=== PATIENT | female | born 1945 | race Hispanic/Latino ===

== ENCOUNTER 2019-10-30 09:34 | Inpatient (IN) | payer OTHER ==
--- OUTSIDE RECORDS SUMMARY | 2019-10-30 10:12 | XMS REPORT ---
:1945 Author Organization [facility] t Address [address] [place] [address] Care Team Providers Name Role Phone Kayla MIRANDA, L Attending Clinician Unavailable Phillip MOBILE PHONE SALESPERSON, F Attending Clinician Tony KIM, Bella Attending Clinician Umair KIM, E Attending Clinician Oneil KIM, A Attending Clinician Yasmany MOBILE PHONE SALESPERSON, R Attending Clinician Cooper LOAN FUNDER, G Attending Clinician Leni MOBILE PHONE SALESPERSON Attending Clinician Kat KIM, Williams Admitting Clinician Problems This patient has no known problems. Allergies, Adverse Reactions, Alerts This patient has no known allergies or adverse reactions. Medications This patient has no known medications. Procedures This patient has no known procedures. Encounters Start End Encounter Admission Attending Care Care Encounter Source Date/Time Date/Time Type Type Clinicians Facility Department ID 2019-10-22 2019-10-22 Transition Bimal Garza [id number] 00:00:00 00:00:00 Mona Ceballos [id number] [place] 4.2.7.2.686 [id number] 2019-10-17 2019-10-21 [facility] Juana Fisher 1.2.8 [id number] 11:59:57 16:28:00 Encounter ArminliviaRadha gupta 350. 1.13.10 [facility] 4.2.7.2.686 [id number] 2019-10-21 2019-10-21 Case BlockBILL [id number] 00:00:00 00:00:00 Management Danna BRAMBILA 350.1.13.10 [facility] 4.2.7.2.686 [id number] 2019-10-17 2019-10-17 [facility] [id number] 00:00:00 00:00:00 Vanesa Wiggins 350.1.13.10 [place] 4.2.7.2.686 Professio [id number] [address] 2019-09-11 2019-09-11 [facility] [id number] 07:00:02 11:39:34 ne Visit Vanesa Wiggins 350.1.13.10 [place] 4.2.7.2.686 Professio [id number] [address] 2019-09-08 2019-09-[address] [facility] [id number] 15:36:09 17:50:00 Shayne Wiggins 350.1.13.10 [place] 4.2.7.2.686 [place] [id number] 2019-09-01 2019-09-01 Emergency [facility], [facility] [id number] 12:01:40 15:56:00 Kassie Wiggins 350.1.13.10 [place] 4.2.7.2.686 [place] [id number] 2019-08-11 2019-08-11 [facility] [id number] 00:00:00 00:00:00 Vanesa A Rosalie 350.1.13.10 [place] 4.2.7.2.686 Professio [phone] [place] [address] Building 2019-08-05 2019-08-07 Office JESSEE Farrar [id number] 15:09:22 09:24:55 Visit [facility] 350.1.13.10 [place] 4.2.7.2.686 Profjay [phone] [place] [address] Office [address] One Results This patient has no known results.
--- OUTSIDE RECORDS SUMMARY | 2019-10-30 10:12 | XMS REPORT | Summary of Care ---
:1945 Author Organization [facility] Address [address] [place] [address] Care Team Providers Name Role Phone aVnesa Riggs MD Primary Care Provider [phone] Beni Cuenca MD Unavailable Reason for Visit Reason Comments Forms Encounter Details Date Type Department Care Team Description 01/10/2019 Telephone [facility] Pediatric and Mariela Riggs Forms Adult Primary Care- MD Wiggins [address] [place] [address], [address] [place] [address] [place] [address] [phone] Allergies No Known Allergiesdocumented as of this encounter (statuses as of 01/10/2019) Medications Medication Sig Dispensed Refills Start Date End Date Status Blood-Glucose Meter Use BID, DX E11.9 1 Kit 0 11/07/2017 Active KitIndications: (Brand upon Uncontrolled type 2 insurance diabetes mellitus approval) without complication, with long-term current use of insulin lancets-blood glucose 1 Each 2 (two) 100 Each 11 11/07/2017 Active strips 30 gauge times daily. Use CmpkIndications: BID, DX E11.9 Uncontrolled type 2 (Brand upon diabetes mellitus insurance without complication, approval) with long-term current use of insulin blood sugar diagnostic Check blood sugar 100 [address] 11 8 Active stripIndications: twice a day. Uncontrolled type 2 E11.9 diabetes mellitus without complication, with long-term current use of insulin glipiZIDE 10 mg Take 1 tablet by 180 tablet 3 04/10/2018 Active tabletIndications: mouth 2 (two) Uncontrolled type 2 times daily diabetes mellitus before breakfast without complication, and dinner. with long-term current use of insulin metFORMIN 1,000 mg Take 1 tablet by 180 tablet 3 04/10/2018 Active tabletIndications: mouth 2 (two) Uncontrolled type 2 times daily with diabetes mellitus meals. without complication, with long-term current use of insulin dextran Place 1 Drop in 0 Acti ve 70-hypromellose both eyes once (ARTIFICIAL now. TEARS,[id number],) 0.1-0.3 % nortriptyline 10 mg Take 1 capsule by 60 capsule 3 09/11/2018 Active capsuleIndications: mouth at bedtime. Numbness Every night for pain in legs. pantoprazole Take 1 tablet by 30 tablet 0 11/22/2018 Active (PROTONIX) 40 mg EC mouth daily. tabletIndications: Epigastric pain documented as of this encounter (statuses as of 01/10/2019) Active Problems Problem Noted Date Hypotension 11/21/2018 Epigastric pain 11/21/2018 Diverticulitis 09/23/2018 Essential hypertension, benign 09/21/2017 Uncontrolled type 2 diabetes mellitus without complica tion, without 05/05/2017 long-term current use of insulin NPDR (nonproliferative diabetic retinopathy),MILD 12/17 Cataract, Right eye 01/07/2013 Glaucoma suspect, OU 01/07/2013 Hypertensive retinopathy 01/07/2013 Benign hypertensive heart disease without heart failur e 05/26/2011 Pseudophakia of left eye 05/26/2011 documented as of this encounter (statuses as of 01/10/2019) Immunizations Name Administration Dates Next Due Influenza High Dose 04/10/2018, 03/28/2017 Influenza Virus Vaccine 04/26/2011 Pneumococcal 13 Conjugate, PCV13 (Prevnar 13) 03/28/2017 Pneumococcal 7 Conjugate, PCV7 (Prevnar7) 04/26/2011 Pneumococcal Polysaccharide, PPSV23 (PNEUMOVAX) 04/10/2018 documented as of this encounter Social History Tobacco Use Types Packs/Day Years Used Date Never Smoker Smokeless Tobacco: Never Used Alcohol Use Drinks/Week oz/Week Comments Not Currently occasional Sex Assigned at Date Recorded Not on file Job Start Date Occupation Industry Not on file Not on file Not on file Travel History Travel Start Travel End No recent travel history available. documented as of this encounter Last Filed Vital Signs Not on filedocumented in this encounter Plan of Treatment Date Type Specialty Care Team Description 03/21/2019 Office Visit Internal Medicine Marysol Riggs MD [address] [address] [phone] Health Maintenance Due Date Last Done Comments Osteoporosis Screening 08/29/2011 COLONOSCOPY 09/28/2011 09/27/2001 MAMMOGRAM 04/26/2012 04/26/2011 INFLUENZA VACCINE 02/16/2019 04/10/2018, 03/28/2017, 04/26/2011 FOOT EXAM 03/25/2019 03/25/2018, 03/28/2017, 03/28/2017 URINE MICROALBUMIN 04/10/2019 04/10/2018, 05/30/2016, 09/06/2011 DTaP,Tdap,and Td Vaccines 04/11/2019 Postpo rand from (1 - Tdap) 1965 ([employer] / Financial) Zoster Recombinant Vaccine 04/11/2019 Postp oned from (SHING[facility]) (1 of 2) 1996 ( Insurance / Financial) EYE EXAM 05/21/2019 05/21/2018, 01/31/2017 (Previously completed), 10/27/2013, Additional history exists HgA1C 05/23/2019 11/21/2018, 09/30/2018, 03/25/2018, Additional history exists LDL-C 10/01/2019 09/30/2018, 05/29/2016, 04/26/2012, Additional history exists Medicare Wellness Visit 10/29/2019 10/28/2018 CREATININE (SERUM) 11/23/2019 11/22/2018, 11/21/2018, 09/24/2018, Additional history exists HEPATITIS C (HCV) SCREEN Completed 04/10/2018 PNEUMOCOCCAL VACCINES 65+ Completed 04/10/2018, 03/28/2017 documented as of this encounter Implants Implanted Type Area Electrical Engineering Draftsperson Device Shelf Model / Serial Identifier Expiration / Lot Date Log [id number] - Tray, Eddie Lens (Virtual) - 1 - Sn60wf 19.0d, Eddie Lens LENS Left: Eye Eddie 12/28/2015 SN60WF 19.0D / Implanted: Qty: 1 on 06/29/2011 at [facility] [id number] / documented as of this encounter Results Not on filedocumented in this encounter Insurance Payer Benefit Plan / Subscriber ID Effective Phone Address T e Group Dates [facility] [id number] 2017-Prese Medic are [facility] - HEALTHCARE DUAL nt H MO MANAGED COMPLETE HMO MEDICARE documented as of this encounter Advance Directives Type Date Recorded Patient Women Nurse Explanati on Advance Directives and Living Will Power of Aeronautical Project Engineer
--- OUTSIDE RECORDS SUMMARY | 2019-10-30 10:12 | XMS REPORT | Summary of Care ---
:1945 Author Organization [facility] - Health Address [address] [place] [address] Care Team Providers Name Role Phone Vanesa Riggs MD Primary Care Provider [phone] Beni Cuenca MD Unavailable Encounter Details Date Type Department Care Team Description 02/14/2019 Orders Only [facility] Doctor Unassigned, No [address] [facility] [place] [address] [address] [place] [address] Allergies No Known Allergiesdocumented as of this encounter (statuses as of 02/14/2019) Medications Medication Sig Dispensed Refills Start Date [...] ve 70-hypromellose both eyes once (ARTIFICIAL now. TEARS,[id number],) 0.1-0.3 % nortriptyline 10 mg Take 1 capsule by 60 capsule 3 09/11/2018 Active capsuleIndications: mouth at bedtime. Numbness Every night for pain in legs. pantoprazole Take 1 tablet by 30 tablet 0 11/22/2018 Active (PROTONIX) 40 mg EC mouth daily. tabletIndications: Epigastric pain documented as of this encounter (statuses as of 02/14/2019) Active Problems Problem Noted Date Hypotension 11/21/2018 [...] as of this encounter (statuses as of 02/14/2019) Immunizations Name Administration Dates Next Due Influenza [...] Treatment Date Type Specialty Care Team Description 02/14/2019 Office Visit Internal Medicine Marysol Riggs MD Arrived [address] [facility] [address] [place], [place] [address] 03/21/2019 Office Visit Internal Medicine Marysol Riggs MD [address] [facility] [address] [place], [place] [address] [phone] Health Maintenance Due Date Last Done Comments Osteoporosis Screening 08/29/2011 COLONOSCOPY 09/28/2011 09/27/2001 MAMMOGRAM 04/26/2012 04/26/2011 INFLUENZA VACCINE (#1) 2019 04/10/2018, 03/28/2017, 04/26/2011 FOOT EXAM 03/25/2019 03/25/2018, [...] of this encounter Implants Implanted Type Area Risk Reduction Counselor Device Shelf Model / Serial Identifier Expiration / Lot Date Log [id number] - David Maldonadoon Lens (Virtual) - 1 - Sn60wf 19.0d, Eddie Lens LENS Left: Eye Eddie 12/28/2015 SN60WF 19.0D / Implanted: Qty: 1 on 06/29/2011 at [facility] [id number] / documented as of this encounter Procedures Procedure Name Priority Date/Time Associated Diagnosis Comme nts NOTICE OF BILLING Routine 02/14/2019 7:09 AM CDT PRACTICES FOR MEDICARE PATIENTS documented in this encounter Results Not on filedocumented in this encounter Insurance Payer Benefit Plan / Subscriber ID Effective Phone Address T ype Group Dates [facility] [id number] 2017-Prese Medic are Adv HEALTHCARE - HEALTHCARE DUAL nt H MO MANAGED COMPLETE HMO MEDICARE documented as of this encounter Advance Directives Type Date Recorded 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
--- OUTSIDE RECORDS SUMMARY | 2019-10-30 10:13 | XMS REPORT | Summary of Care ---
:1945 Author Organization [facility] Address [address] [place] [address] Care Team Providers Name Role Phone Vanesa Riggs MD Primary Care Provider [phone] Beni Cuenca MD Unavailable Reason for Visit Reason Comments LAB WORK Encounter Details Date Type Department Care Team Description 02/14/2019 Clinical Courier Visit [facility] Mariela Riggs MD [address] [facility] [address] [place] [address] Type 2 diabetes Phlebotomy 1, Adc Lab mellitus without [facility] complication, [address] [facility] without lo ng-term [place] use [place] insulin [phone] Allergies No Known Allergiesdocumented as of this [...] ve 70-hypromellose both eyes once (ARTIFICIAL now. TEARS,[id number],) 0.1-0.3 % nortriptyline 25 mg Take 1 capsule by 30 capsule 3 02/14/2019 Active capsuleIndications: mouth at bedtime. Numbness Every night for pain in legs. pantoprazole Take 1 tablet by 90 tablet 3 02/14/2019 Active (PROTONIX) 40 mg EC mouth daily. tabletIndications: Esophagitis documented as of this encounter (statuses as [...] Visit Internal Medicine Marysol Riggs MD [address] [address] [phone] Health Maintenance Due Date Last Done Comments [...] of this encounter Implants Implanted Type Area Hoop Driving Machine Operator Helper Device Shelf Model / Serial Identifier Expiration / Lot Date Log [id number] - Joel, Eddie Lens (Virtual) - 1 - Sn60wf 19.0d, Eddie Lens LENS Left: Eye Eddie 12/28/2015 SN60WF 19.0D / Implanted: Qty: 1 on 06/29/2011 at [facility] [id number] / documented as of this encounter Results Not on filedocumented in this encounter Visit Diagnoses Diagnosis Type 2 diabetes mellitus without complic ation, without long-term current use of insulin documented in this encounter Insurance Payer Benefit Plan / Subscriber ID Effective Phone Address T ype Group Dates [facility] [id number] 2017-Prese Medic are Adv HEALTHCARE - HEALTHCARE DUAL nt H [place] MANAGED COMPLETE O MEDICARE documented as of this encounter Advance Directives Type Date Recorded Patient Spikemaking Supervisor Explanati on Advance Directives and Living Will Power of Vinegar Maker
--- OUTSIDE RECORDS SUMMARY | 2019-10-30 10:14 | XMS REPORT | Summary of Care ---
:1945 Author Organization [facility] Address [address] [place] [address] Care Team Providers Name Role Phone Vanesa Riggs MD Primary Care Provider [phone] Beni Cuenca MD Unavailable Reason for Referral MRI/CAT Scan (Routine) Status Reason Specialty Diagnoses / Referred By Referred To Procedures Contact Contact New Request Diagnostic Diagnoses Renal mass Oneil, Radiology Procedures MR ABDOMEN W CONTRAST Vanesa Soriano MD [address] [place] [address] Dr Peña [address] [place] [phone] Radiology Services (Routine) Status Reason Specialty Diagnoses / Referred By Referred To Procedures Contact Contact New Request Diagnostic Diagnoses Asymptomatic menopausal state Oneil, Radiology Procedures DEXA AXIAL (HIP AND SPINE) Vanesa Soriano MD [address] [place] [address] Dr Peña [address] [place] [phone] Radiology Services (Routine) Status Reason Specialty Diagnoses / Referred By Referred To Procedures Contact Contact New Request Diagnostic Diagnoses Encounter for screening mammogram for breast cancer Oneil, Radiology Procedures BI SCREENING MAMMOGRAM BILATERAL Vanesa Soriano MD [address] [place] [address] Dr Peña [address] [place] [phone] Reason for Visit Reason Comments Follow-up 2 months Hypertension Refill Request Abdominal Pain Auth/Cert Status Reason Specialty Diagnoses / Referred By Referred To Procedures Contact Contact Clinical Medical Diagnoses Type 2 diabetes mellitus with diabetic polyneuropathy, 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, without long-term current use of insulin [facility] Lab Laboratory Procedures CMP,CBC,FERRITIN,IRON,T3,T4,TSH,A1C [address] [place] [address] Encounter Details Date Type Department Care Team Description 02/14/2019 Office Visit [facility] Riggs, Esophagitis (Pr imary Dx); Pediatric and Adult Vanesa Soriano MD Numbness; Primary Care- [address] Epigastric pain; [place] [address] Type 2 diabetes mellitus with diabetic p olyneuropathy, without long-term current use of insulin; [address] [place] [address], [place] [address] Routine adult health maintenance; [address] Other exterminator (current) drug therapy ; [place], [place] Encounter for screening mammogram for breast cancer; [phone] Asymptomatic menopausal stat e; [phone] SOBOE (shortnes s of breath on exertion); Personal histor y of other endocrine, nutritional and metabolic disease ; Renal mass; Right leg pain Allergies No Known Allergiesdocumented as of this encounter (statuses as of 02/17/2019) Medications Medication Sig Dispensed Refills Start Date End Date Status Blood-Glucose Meter Use BID, DX 1 Kit 0 11/07/2017 Active KitIndications: E11.9 (Brand Uncontrolled type 2 upon insurance diabetes mellitus approval) without complication, with long-term current use of insulin lancets-blood 1 Each 2 (two) 100 Each 11/07/2017 Active glucose strips 30 times daily. gauge Use BID, DX CmpkIndications: E11.9 (Brand Uncontrolled type 2 upon insurance diabetes mellitus approval) without complication, with long-term current use of insulin blood sugar Check blood 100 Box 11 11/21/2017 Activ e diagnostic sugar twice a stripIndications: day. E11.9 Uncontrolled type 2 diabetes mellitus without complication, with long-term current use of insulin glipiZIDE 10 mg Take 1 tablet 180 tablet 3 04/10/2018 Active tabletIndications: by mouth 2 Uncontrolled type 2 (two) times diabetes mellitus daily before without breakfast and complication, with dinner. long-term current use of insulin metFORMIN 1,000 mg Take 1 tablet 180 tablet 3 04/10/2018 Active tabletIndications: by mouth 2 Uncontrolled type 2 (two) times diabetes mellitus daily with without meals. complication, with long-term current use of insulin dextran Place 1 Drop in 0 Acti ve 70-hypromellose both eyes once (ARTIFICIAL now. TEARS,[id number], ) 0.1-0.3 % nortriptyline 25 mg Take 1 capsule 30 capsule 3 02/14/2019 Active capsuleIndications: by mouth at Numbness bedtime. Every night for pain in legs. pantoprazole Take 1 tablet 90 tablet 3 02/14/2019 Ac tive (PROTONIX) 40 mg EC by mouth daily. tabletIndications: Esophagitis nortriptyline 10 mg Take 1 capsule 60 capsule 3 09/11/2018 Discontinued capsuleIndications: by mouth at 9 Numbness bedtime. Every night for pain in legs. pantoprazole Take 1 tablet 30 tablet 0 11/22/2018 Di scontinued (PROTONIX) 40 mg EC by mouth daily. 9 tabletIndications: Epigastric pain documented as of this encounter (statuses as of 02/17/2019) Active Problems Problem Noted Date Hypotension 11/21/2018 [...] as of this encounter (statuses as of 02/17/2019) Immunizations Name Administration Dates Next Due Influenza [...] of this encounter Last Filed Vital Signs Vital Sign Reading Time Taken Comments Blood Pressure 140/74 02/14/2019 7:19 AM CDT Pulse 61 02/14/2019 7:18 AM CDT Temperature 36.2 C (97.2 F) 02/14/2019 7:18 AM CDT Respiratory Rate 18 02/14/2019 7:18 AM CDT Oxygen Saturation 97% 02/14/2019 7:18 AM CDT Inhaled Oxygen Concentration - - Weight 66.7 kg (147 lb 1.6 oz) 02/14/2019 7:18 AM CDT Height - - Body Mass Index 24.48 11/21/2018 10:09 PM CDT documented in this encounter Patient Instructions Patient InstructionsNadeen Hall - 02/14/2019 7:20 AM CDTTake at least 1/4 teaspoon of cinnamon daily to help block the absorption of sugar. documented in this encounter Progress Notes Vanesa Riggs MD - 02/14/2019 7:20 AM CDT Transitional Care Management: [id number] Visit 02/14/2019 Maria Isabel Stacy is a 73 year old female that was admitted on 11/21/18 to [facility], ADC MED SURG. She was discharged on 11/22/18 with a discharge disposition of HR- Routine Discharge. Maria Isabel is here today for a hospital follow-up/transitional care management visit. Interpretor ID: [id number] CC: Follow-up (2 months); Hypertension; Refill Request; and Abdominal Pain Patient states for 2 days she has had left hand numbness. She states nortriptyline was helping with the pain. Reports she would like a higher dose of medication. Patient c/o leg pain. She states she has difficulty sleeping due to the pain. She was taking 10mg nortriptyline with some relief. Patient states her stomach is doing good. Denies any pain. She states she is eating well. Denies heartburn. She has not taken liquid medication in about 2wks. She is taking pantoprazole. Patient states since being in the hospital she feels tired with walking. Patient has DM. She states sugars are running 120-130s. Patient states she mostly eats vegetables and chicken. Health Maintenance Due for mammogram. Due for osteoporosis screening. Allergies Maria Isabel has No Known Allergies. Medications Outpatient Medications Prior to Visit Medication Sig Dispense Refill dextran 70-hypromellose (ARTIFICIAL TEARS,[id number],) 0.1-0.3 % Place 1 Drop in both eyes once now. glipiZIDE 10 mg tablet Take 1 tablet by mouth 2 (two) times daily before breakfast and dinner. 180 tablet 3 metFORMIN 1,000 mg tablet Take 1 tablet by mouth 2 (two) times daily with meals. 180 tablet 3 pantoprazole (PROTONIX) 40 mg EC tablet Take 1 tablet by mouth daily. 30 tablet 0 nortriptyline 10 mg capsule Take 1 capsule by mouth at bedtime. Every night for pain in legs. 60capsule 3 blood sugar diagnostic strip Check blood sugar twice a day. E11.9 100 [address] 11 Blood-Glucose Meter Kit Use BID, DX E11.9 (Brand upon insurance approval) 1 Kit 0 lancets-blood glucose strips 30 gauge Cmpk 1 Each 2 (two) times daily. Use BID, DX E11.9 (Brand upon insurance approval) 100 Each 11 No facility-administered medications prior to visit. Histories Past Medical History: Diagnosis Date Benign essential HTN 1995 Cataracts, bilateral 2009 left worse than right Diabetes mellitus 2006 Diabetic neuropathy Right wrist fracture 2008 work injury Shoulder fracture, right 2008 work injury Past Surgical History: Procedure Laterality Date COLONOSCOPY ESOPHAGOGASTRODUODENOSCOPY N/A 11/22/2018 Surgeon: La Nena Rivas MD; Location: [facility] OR [facility] PHACOEMULSIFICATION OF CATARACT WITH INTRAOCULAR LENS IMPLANT 06/29/2011 Surgeon:TAWANDA SCHMID; Location:[facility] OR LOCATION ME OPEN TREATMENT RADIAL SHAFT FRACTURE 2007 ME UPPER ARM/ELBOW SURGERY UNLISTED Right SHOULDER ARTHROPLASTY 2007 Social History Socioeconomic History Marital status: Spouse name: Not on file Number of children: Not on file Years of education: Not on file Highest education level: Not on file Occupational History 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, 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 Social Needs Financial resource strain: Not on file Food insecurity: Worry: Not on file Inability: Not on file Transportation needs: Medical: Not on file Non-medical: Not on file Tobacco Use Smoking status: Never Smoker Smokeless tobacco: Never Used Substance and Sexual Activity Alcohol use: Not Currently Comment: occasional Drug use: No Sexual activity: Yes Partners: Male Lifestyle Physical activity: Days per week: Not on file Minutes per session: Not on file Stress: Not on file Relationships Social connections: Talks on phone: Not on file Gets together: Not on file Attends mu-ism service: Not on file Active member of club or organization: Not on file Attends meetings of clubs or organizations: Not on file Relationship status: Not on file Intimate partner violence: Fear of current or ex partner: Not on file Emotionally abused: Not on file Physically abused: Not on file Forced sexual activity: Not on file Other Topics Concern Not on file Social History Narrative Disability due to hand injury after work accident. Lives by herself. One story home. She has the ability to get rides to appointments, but states that she likes to walk, for the exercise. 10/28/2018 Family History Problem Relation Age of Onset Diabetes Mother Breast Cancer Mother dx at 79 Hypertension Mother Heart Father congenital heart disease Neurological Sister numbness and tingling in hands and feet of all sisters Diabetes Brother Review of Systems Constitutional: Positive for fatigue. Gastrointestinal: Negative for abdominal pain. Musculoskeletal: +leg pain Neurological: Positive for numbness. Physical Exam Constitutional: She is oriented to person, place, and time. She appears well- developed and well-nourished. No distress. HENT: Head: Normocephalic and atraumatic. Right Ear: External ear normal. Left Ear: External ear normal. Nose: Nose normal. No tracheal deviation Eyes: Right eye exhibits no discharge. Left eye exhibits no discharge. No scleral icterus. Left and right eyelids normal. Neurological: She is alert and oriented to person, place, and time. No tremors. Uses cane. Skin: Skin is warm and dry. She is not diaphoretic. Psychiatric: She has a normal mood and affect. Her behavior is normal. Pleasant. Vitals reviewed. Vitals: 02/14/19 0718 02/14/19 0719 BP: (!) 148/72 (!) 140/74 BP Location: Left arm Right arm Patient Position: Sitting Sitting BP CUFF SIZE: Adult Medium Adult Medium Pulse: 61 Resp: 18 Temp: 36.2 C (97.2 F) TempSrc: Oral SpO2: 97% Weight: 147 lb 1.6 oz (66.7 kg) Education & Visit Time: this visit involved counseling and coordination of care that comprised more than 50% of the visit time. I spent at least 25 mintues total time with the patient. Of that time, at least 1 minute was spent on exam, and at least 24 minutes was spent obtaining history and counseling the patient regarding risks and benefits of treatment, treatment options and prevention. Assessment/Plan Esophagitis (primary encounter diagnosis), Epigastric pain Comment: Stable needs refill. Plan: pantoprazole (PROTONIX) 40 mg EC tablet Numbness Comment: Pt reports left hand numbness. Nortriptyline 10mg qhs helped but still with some numbness/pain. Will increase nortriptyline from 10mg to 25mg. Plan: START nortriptyline 25 mg capsule Type 2 diabetes mellitus with diabetic polyneuropathy, without long-term current use of insulin Comment: Sugars are running 120s-130.s will check labs. Plan: VITAMIN D, 25-OH, GLYCOSYLATED HEMOGLOBIN (A1C), MICROALBUMIN URINE, COMP. METABOLIC PANEL (27702) Routine adult health maintenance Comment: Due for blood work. Plan: THYROID STIMULATING HORMONE, FREE T4, FREE T3 Other penitentiary (current) drug therapy Comment: Pt is on penitentiary drug therapy which could lead to vitamin deficiency. Will check labs. Plan: VITAMIN D, 25-OH Encounter for screening mammogram for breast cancer Comment: Due for mammogram. Plan: BI SCREENING MAMMOGRAM BILATERAL Asymptomatic menopausal state Comment: Due for bone density screening. Plan: DEXA AXIAL (HIP AND SPINE) SOBOE (shortness of breath on exertion) Comment: Pt reports feeling tired with walking since leaving the hospital. Will check blood work. Plan: CBC WITH DIFF, IRON, TOTAL IRON BINDING CAPACITY, FERRITIN SERUM, N-TERMINAL PRO-BNP, CBC WITH DIFFERENTIAL Personal history of other endocrine, nutritional and metabolic disease Comment: Will check blood work. Plan: IRON, TOTAL IRON BINDING CAPACITY, FERRITIN SERUM Renal mass Comment: Will check MRI. Plan: MR ABDOMEN W CONTRAST Right leg pain Comment: Pt c/o leg pain. It is causing trouble with sleep. She is taking 10mg nortriptyline with some relief. Plan: Increase nortriptyline to 25mg. I certify that the following are true: Discharge records, pending tests and lab results reviewed: Yes Medications reviewed and reconciled: Yes Patient education provided to: patient Follow-up arranged with other healthcare providers needed in patient's care: N/A Established applicable referrals: Yes Complexity of medical decision making is: Medium No linked episodes Scribe's Attestation INadeen , am scribing for, and in the presence of, Vanesa Riggs MD who performed the services described here-in. Nadeen Hall, February 14, 2019, 7:27 AM Physician's Attestation Vanesa Oswald MD, personally performed the services described in this documentation , asscribed by, Nadeen Hall in my presence and it is both accurate and complete. Vanesa Riggs MD February 17, 2019, 3:55 PM documented in this encounter Plan of Treatment Date Type Specialty Care Team Description 03/21/2019 Office Visit Internal Medicine Marysol Riggs MD [address] [place] [phone] Name Type Priority Associated Diagnoses Order S chedule VITAMIN D, 25-OH LAB Routine Other exterminator Expected : 04/16/2019 (current) drug t herapy (Approximate), Type 2 diabetes mellitus Exp ires: 02/15/2020 with diabetic polyneuropathy, without long-term current use of insulin GLYCOSYLATED HEMOGLOBIN LAB Routine Type 2 diabetes m ellitus Expected: 04/16/2019 (A1C) with diabetic (Approximate), polyneuropathy, without Expi res: 02/15/2020 long-term current use of insulin THYROID STIMULATING LAB Routine Routine adult health Expected: 04/16/2019 HORMONE maintenance (Approximate), Expires: 2019 FREE T4 LAB Routine Routine adult health Expecte d: 04/16/2019 maintenance (Approximate), Expires: 2019 FREE T3 LAB Routine Routine adult health Expecte d: 04/16/2019 maintenance (Approximate), Expires: 2019 MICROALBUMIN URINE LAB Routine Type 2 diabetes [facility] Expected: 04/16/2019 with diabetic (Approximate), polyneuropathy, without Expi res: 02/15/2020 long-term current use of insulin BI SCREENING MAMMOGRAM IMAGING Routine Encounter for scre ening Expected: BILATERAL mammogram for breast 019, Expires: cancer 04/16/2020 DEXA AXIAL (HIP AND IMAGING Routine Asymptomatic menopaus al Expected: SPINE) state 02/14/2019, Exp ires: 02/15/2020 MR ABDOMEN W CONTRAST IMAGING Routine Renal mass Expect ed: 02/14/2019, Exp ires: 02/15/2020 Health Maintenance Due Date Last Done Comments [...] Medicare Wellness Visit 10/29/2019 10/28/2018 CREATININE (SERUM) 02/15/2020 02/14/2019, 11/22/2018, 11/21/2018, Additional history exists HEPATITIS C (HCV) SCREEN Completed 04/10/2018 PNEUMOCOCCAL VACCINES 65+ Completed 04/10/2018, 03/28/2017 documented as of this encounter Implants Implanted Type Area Professional Builder Device Shelf Model / Serial Identifier Expiration / Lot Date Log [id number] - Joel Eddie Lens (Virtual) - 1 - [id number] 19.0d, Eddie Lens LENS Left: Eye Eddie 12/28/2015 [id number] 19.0D / Implanted: Qty: 1 on 06/29/2011 at [facility] [id number] / documented as of this encounter Procedures Procedure Name Priority Date/Time Associated Diagnosis Comme nts CBC WITH DIFFERENTIAL Routine 02/14/2019 8:46 SOBOE (shortnes s of Results for this AM CDT breath on exertion) procedur e are in the results section. CBC WITH DIFF Routine 02/14/2019 8:46 SOBOE (shortness of Res ults for this AM CDT breath on exertion) procedur e are in the results section. N-TERMINAL PRO-BNP Routine 02/14/2019 8:45 SOBOE (shortness o f Results for this AM CDT breath on exertion) procedur e are in the results section. COMP. METABOLIC PANEL Routine 02/14/2019 8:45 Type 2 diabetes Results for this (49904) AM CDT mellitus with procedure are in diabetic the results polyneuropathy, section. without long-term current use of insulin TOTAL IRON BINDING Routine 02/14/2019 8:45 Personal history o f Results for this CAPACITY AM CDT other endocrine, procedure a re in nutritional and the results metabolic diseas e section. SOBOE (shortness of breath on exertion) IRON Routine 02/14/2019 8:45 Personal history of Resu lts for this AM CDT other endocrine, procedure a re in nutritional and the results metabolic diseas e section. SOBOE (shortness of breath on exertion) FERRITIN SERUM Routine 02/14/2019 8:45 Personal history of Re sults for this AM CDT other endocrine, procedure a re in nutritional and the results metabolic diseas e section. SOBOE (shortness of breath on exertion) documented in this encounter Results CBC WITH DIFFERENTIAL (02/14/2019 8:46 AM CDT) [facility] WBC 8.45 4.30 - 11.10 [facility] 10*3/L [facility] RBC 3.96 3.93 - 5.25 [facility] 10*6/L [facility] HGB 12.1 11.6 - 15.0 [facility] g/dL H[facility] HCT 37.2 35.7 - 45.2 % [facility] MCV 93.9 80.6 - 95.5 fL [facility] MCH 30.6 25.9 - 32.8 pg [facility] MCHC 32.5 31.6 - 35.1 [facility] g/dL [facility] RDW-SD 42.5 39.0 - 49.9 fL [facility] RDW-CV 12.3 12.0 - 15.5 % [facility] PLT 288 166 - 358 [facility] 10*3/L [facility] MPV 9.7 9.5 - 12.9 fL [facility] NRBC/100 WBC 0.0 0.0 - 10.0 /100 [facility] [address] [facility] NRBC x10^3 <0.01 10*3/L [facility] GRAN MAT (NEUT) % 47.6 % [facility] IMM GRAN % 0.10 % [facility] LYMPH % 43.8 % [facility] MONO % 6.0 % [facility] EOS % 2.1 % [facility] BASO % 0.4 % [facility] GRAN MAT x10^3(ANC) 4.02 1.88 - 7.09 [facility] 10*3/uL [facility]ITAL [facility] IMM GRAN x10^3 <0.03 0.00 - 0.06 [facility] 10*3/uL [facility] LYMPH x10^3 3.70 (H) 1.32 - 3.29 [facility] 10*3/uL [facility] MONO x10^3 0.51 0.33 - 0.92 [facility] 10*3/uL [facility] EOS x10^3 0.18 0.03 - 0.39 [facility] 10*3/uL [facility] BASO x10^3 0.03 0.01 - 0.07 [facility] 10*3/uL H[facility]ITAL [facility] Specimen Blood - ARM, LEFT Performing Organization Address City/State/Zipcode Phone Number [facility] CLIA: [id number], [address] [place], [place] [address] COMP. METABOLIC PANEL (03919) (02/14/2019 8:45 AM CDT) Pathologist [facility] nature NA 144 135 - 145 [facility] mmol/L [facility] K 5.0 3.5 - 5.0 [facility] mmol/L [facility] CL 105 98 - 108 mmol/L [facility] CO2 TOTAL 30 23 - 31 mmol/L [facility] AGAP 9 2 - 16 [facility] BUN 17 7 - 23 mg/dL [facility] GLUCOSE 237 (H) 70 - 110 mg/dL [facility] CREATININE 0.63 0.50 - 1.04 [facility] mg/dL [facility] TOTAL BILI 0.8 0.1 - 1.1 mg/dL [facility] CALCIUM 9.5 8.6 - 10.6 [facility] mg/dL [facility] T PROTEIN 7.6 6.3 - 8.2 g/dL [facility] ALBUMIN 4.2 3.5 - 5.0 g/dL [facility] ALK PHOS 114 34 - 122 U/L [facility] ALT(SGPT) 26 9 - 51 U/L [facility] AST(SGOT) 22 13 - 40 U/L [facility] eGFR Calculation 92.9 mL/min/1.73m2 [facility] ([facility] LABORATORY Venezuelan) eGFR Calculation 112.6 mL/min/1.73m2 [facility] () [facility] Specimen Blood - ARM, LEFT Narrative Performed At [facility] of Glomerular Filtration Rate (GFR) [facility] and Staging of Kidney Disease* + + +- + | GFR (mL/min/1.73 m2)| With Kidney Damage|Without Kidney Damage + + +- + |>90| Stage one| Normal + + +- + |60-89|S tage two| Decreased GFR + + +- + |30-59|S tage three| Stage three + + +- + |15-29|S tage four | Stage four + + +- + |<15 (or dialysis)|Stage five | Stage five + + +- + *Each stage assumes the associated GFR level has been in effect for at least three months.Stages 1 to 5, with or without kidney disease, indicate chronic kidney disease . Notes: Determination of stages one and two (with eGFR >59mL/min/1.73 m2) requires estimation of kidney damage for at least three months as defined by structural or functional abnormalities of the kidney, manifested by either: Pathological abnormalities or Markers of kidney damage (including abnormalities in the composition of the blood or urine or abnormalities in imaging tests). Performing Organization Address [facility] Phone Number [facility] CLIA: [id number], [address] [place] [address] N-TERMINAL PRO-BNP (02/14/2019 8:45 AM CDT) Pathologist Sig nature NT-proBNP 350 (H) <=125 pg/mL [facility] Specimen Blood - ARM, LEFT Narrative Performed At Biotin has been reported to cause a negative [facility] bias, interpret results relative to patient's use of biotin. Performing Organization Address [facility] Phone Number [facility] CLIA: [id number], [address] [place] [address] FERRITIN SERUM (02/14/2019 8:45 AM CDT) Pathologist Sig nature FERRITIN 111.0 11.0 - 264.0 ng/mL [facility] LABOR[facility]ORY Specimen Blood - ARM, LEFT Narrative Performed At Biotin has been reported to cause a negative [facility] bias, interpret results relative to patient's use of biotin. Performing Organization Address [facility] Phone Number [facility] CLIA: [id number], [address] [place] [address] TOTAL IRON BINDING CAPACITY (02/14/2019 8:45 AM CDT) Pathologist Sig nature TIBC 301 250 - 410 ug/dL [facility] % FE SAT 18 (L) 20 - 50 % [facility] Specimen Blood - ARM, LEFT Performing Organization Address [facility] Phone Number [facility] CLIA: [id number], [address] [place] [address] IRON (02/14/2019 8:45 AM CDT) Pathologist Sig nature IRON 55 50 - 160 ug/dL [facility] Specimen Blood - ARM, LEFT Performing Organization Address City/State/Zipcode Phone Number [facility] CLIA: [id number], [address] [place], [place] [address] documented in this encounter Visit Diagnoses Diagnosis Esophagitis - Primary Esophagitis, unspecified Numbness Disturbance of skin sensation Epigastric pain Abdominal pain, epigastric Type 2 diabetes mellitus with diabetic p olyneuropathy, without long-term current use of insulin Routine adult health maintenance Routine general medical examination at a health care facility Other exterminator (current) drug therapy Encounter for screening mammogram for br east cancer Asymptomatic menopausal state Asymptomatic postmenopausal status (age- related) (natural) SOBOE (shortness of breath on exertion) Shortness of breath Personal history of other endocrine, nut ritional and metabolic disease Renal mass Unspecified disorder of kidney and urete r Right leg pain Pain in limb documented in this encounter Insurance Payer Benefit Plan / Subscriber ID Effective Phone Address T ype Group Dates [facility] [id number] 2017-Prese Medic are [facility] HEALTHCARE - HEALTHCARE DUAL nt H MO MANAGED COMPLETE HMO MEDICARE documented as of this encounter Advance Directives Type Date Recorded Patient Lead Housekeeper Explanati on Advance Directives and Living Will Power of Pocket Marker"
--- OUTSIDE RECORDS SUMMARY | 2019-10-30 10:14 | XMS REPORT | Summary of Care ---
:1945 Author Organization [facility] Address [address] [place] [address] Care Team Providers Name Role Phone Vanesa Riggs MD Primary Care Provider [phone] Beni Cuenca MD Unavailable Reason for Referral MRI/CAT Scan (Routine) Status Reason Specialty Diagnoses / Referred By Referred To Procedures Contact Contact New Request Diagnostic Diagnoses Renal mass Oneil, Radiology Procedures MR ABDOMEN W CONTRAST Vanesa Soriano MD [address] [place] [address] Dr Peña [address] [place] [address] Radiology Services (Routine) Status Reason Specialty Diagnoses / Referred By Referred To Procedures Contact Contact New Request Diagnostic Diagnoses Asymptomatic menopausal state Oneil, Radiology Procedures DEXA AXIAL (HIP AND SPINE) Vanesa Soriano MD [address] [place] [address] Dr Peña [address] [place] [address] Radiology Services (Routine) Status Reason Specialty Diagnoses / Referred By Referred To Procedures Contact Contact New Request Diagnostic Diagnoses Encounter for screening mammogram for breast cancer Oneil, Radiology Procedures BI SCREENING MAMMOGRAM BILATERAL Vanesa Soriano MD [address] [place] [address] Dr Peña [address] [place] [address]234 Reason for Visit Reason Comments Follow-up 2 months Hypertension Refill Request Abdominal Pain Auth/Cert Status Reason Specialty Diagnoses / Referred By Referred To Procedures Contact Contact Clinical Medical Diagnoses Type 2 diabetes mellitus with diabetic polyneuropathy, 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, without long-term current use of insulin [facility] Lab Laboratory Procedures CMP,CBC,FERRITIN,IRON,T3,T4,TSH,A1C [address] [address] Encounter Details Date Type Department Care Team Description 02/14/2019 Office Visit [facility] Riggs, Esophagitis (Pr imary Dx); Pediatric and Adult Vanesa Soriano MD Numbness; Primary Care- [address] Epigastric pain; [place] [address] Type 2 diabetes mellitus with diabetic p olyneuropathy, without long-term current use of insulin; [address] [place] [address], [place] [address] Routine adult health maintenance; [address] 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 TEARS,[id number], ) 0.1-0.3 % nortriptyline 25 mg Take [...] 02/14/2019 7:20 AM CDT Transitional Care Management: Pief-xl-Caid Visit 02/14/2019 Maria Isabel Stacy is a 73 year old female that was admitted on 11/21/18 to [facility], [facility] MED SURG. She was discharged on 11/22/18 with a discharge disposition of HR- Routine Discharge. Maria Isabel is here today for a hospital follow-up/transitional care management visit. Interpretor ID: [id number] CC: Follow-up (2 months); Hypertension; Refill Request; [...] Medication Sig Dispense Refill dextran 70-hypromellose (ARTIFICIAL TEARS,[id number],) 0.1-0.3 % Place 1 Drop in both [...] 11/22/2018 Surgeon: La Nena Rivas MD; Location: [facility] OR [facility] PHACOEMULSIFICATION OF CATARACT WITH INTRAOCULAR LENS IMPLANT 06/29/2011 Surgeon:TAWANDA SCHMID; Location:[facility] OR LOCATION DC OPEN TREATMENT RADIAL SHAFT FRACTURE 2007 DC UPPER ARM/ELBOW SURGERY UNLISTED Right SHOULDER ARTHROPLASTY [...] file Gets together: Not on file Attends uatsdin service: Not on file Active member of [...] HEMOGLOBIN (A1C), MICROALBUMIN URINE, COMP. METABOLIC PANEL (18560) Routine adult health maintenance Comment: Due for blood work. 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 : 04/16/2019 (current) drug t herapy [...] MICROALBUMIN URINE LAB [facility]: 04/16/2019 with diabetic (Approximate), polyneuropathy, without [...] of this encounter Implants Implanted Type Area Housing Manager Device Shelf Model / Serial Identifier Expiration / Lot Date Log [id number] - Joel Eddie Lens (Virtual) - 1 - Sn60wf 19.0d, Eddie Lens LENS Left: Eye Eddie 12/28/2015 SN60WF 19.0D / Implanted: Qty: 1 on 06/29/2011 at [facility] [id number] / documented as of this encounter Procedures [...] 8:45 Type 2 diabetes Results for this (46200) AM CDT mellitus with procedure are in [...] CBC WITH DIFFERENTIAL (02/14/2019 8:46 AM CDT) [facility] WBC 8.45 4.30 - 11.10 [facility] 10*3/L HOSPITAL LAB[facility]ORY RBC 3.96 3.93 - 5.25 [facility] 10*6/L [facility]ITAL [facility] HGB 12.1 11.6 - 15.0 [facility] g/dL H[facility]ITAL [facility] HCT 37.2 35.7 - 45.2 % [facility] MCV 93.9 80.6 - 95.5 fL [facility] MCH 30.6 25.9 - 32.8 pg [facility] MCHC 32.5 31.6 - 35.1 [facility] g/dL [facility] RDW-SD 42.5 39.0 - 49.9 fL [facility] RDW-CV 12.3 12.0 - 15.5 % [facility] PLT 288 166 - 358 [facility] 10*3/L [facility] MPV 9.7 9.5 - 12.9 fL [facility] NRBC/100 WBC 0.0 0.0 - 10.0 /100 [facility] WBCs [facility] NRBC x10^3 <0.01 10*3/L [facility] GRAN MAT (NEUT) % 47.6 % [facility] IMM GRAN % 0.10 % [facility] LYMPH % 43.8 % [facility] MONO % 6.0 % [facility] EOS % 2.1 % [facility] BASO % 0.4 % [facility] GRAN MAT x10^3(ANC) 4.02 1.88 - 7.09 [facility] 10*3/uL HOS[facility]ITAL [facility] IMM GRAN x10^3 <0.03 0.00 - 0.06 [facility] 10*3/uL [facility]OS[facility]ITAL [facility] LYMPH x10^3 3.70 (H) 1.32 - 3.29 [facility] 10*3/uL [facility] MONO x10^3 0.51 0.33 - 0.92 [facility] 10*3/uL [facility]OS[facility]ITAL [facility] EOS x10^3 0.18 0.03 - 0.39 [facility] 10*3/uL [facility] BASO x10^3 0.03 0.01 - 0.07 [facility] 10*3/uL [facility]OS[facility]ITAL [facility] Specimen Blood - ARM, LEFT Performing Organization Address City/State/Zipcode Phone Number [facility] CLIA: [id number], [address] [place], [place] [address] COMP. METABOLIC PANEL (86651) (02/14/2019 8:45 AM CDT) Pathologist [facility] nature NA 144 135 - 145 [facility] mmol/L [facility] K 5.0 3.5 - 5.0 [facility] mmol/L [facility] CL 105 98 - 108 mmol/L [facility] CO2 TOTAL 30 23 - 31 mmol/L [facility] AGAP 9 2 - 16 [facility] BUN 17 7 - 23 mg/dL [facility] GLUCOSE 237 (H) 70 - 110 mg/dL [facility] CREATININE 0.63 0.50 - 1.04 [facility] mg/dL [facility] TOTAL BILI 0.8 0.1 - 1.1 mg/dL [facility] CALCIUM 9.5 8.6 - 10.6 [facility] mg/dL [facility] T PROTEIN 7.6 6.3 - 8.2 g/dL [facility] ALBUMIN 4.2 3.5 - 5.0 g/dL [facility] ALK PHOS 114 34 - 122 U/L [facility] ALT(SGPT) 26 9 - 51 U/L [facility] AST(SGOT) 22 13 - 40 U/L [facility] eGFR Calculation 92.9 mL/min/1.73m2 [facility] ([facility] LABORATORY [place]) eGFR Calculation 112.6 mL/min/1.73m2 [facility] () [facility] Specimen Blood - ARM, [...] abnormalities in imaging tests). Performing Organization Address [facility] Phone Number [facility] CLIA: [id number], [address] [place] [address] N-TERMINAL PRO-BNP (02/14/2019 8:45 AM CDT) Pathologist Sig nature NT-proBNP 350 (H) <=125 pg/mL [facility] Specimen Blood - ARM, LEFT Narrative Performed At Biotin has been reported to cause a negative [facility] bias, interpret results relative to patient's use of biotin. Performing Organization Address [facility] Phone Number [facility] CLIA: [id number], [address] [place] [address] FERRITIN SERUM (02/14/2019 8:45 AM CDT) Pathologist Sig nature FERRITIN 111.0 11.0 - 264.0 ng/mL [facility] Specimen Blood - ARM, LEFT Narrative Performed At Biotin has been reported to cause a negative [facility] bias, interpret results relative to patient's use of biotin. Performing Organization Address [facility] Phone Number [facility] CLIA: [id number], [address] [place] [address] TOTAL IRON BINDING CAPACITY (02/14/2019 8:45 AM CDT) Pathologist Sig nature TIBC 301 250 - 410 ug/dL [facility] % FE SAT 18 (L) 20 - 50 % [facility] Specimen Blood - ARM, LEFT Performing Organization Address [facility] Phone Number [facility] CLIA: [id number], [address] [place] [address] IRON (02/14/2019 8:45 AM CDT) Pathologist Sig nature IRON 55 50 - 160 ug/dL [facility] Specimen Blood - ARM, LEFT Performing Organization Address City/State/Zipcode Phone Number [facility] CLIA: [id number], [address] [place], [place] [address] documented in this encounter Visit Diagnoses Diagnosis Esophagitis - Primary Esophagitis, unspecified Numbness Disturbance of skin sensation Epigastric pain Abdominal pain, epigastric Type 2 diabetes mellitus with diabetic p olyneuropathy, without long-term current use of insulin Routine adult health maintenance Routine general medical examination at a health care facility 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
--- OUTSIDE RECORDS SUMMARY | 2019-10-30 10:15 | XMS REPORT | Summary of Care ---
:1945 Author Organization [facility] Address [address] [place] [address] Care Team Providers Name Role Phone Vanesa Riggs MD Primary Care Provider [phone] Beni Cuenca MD Unavailable Reason for Referral Radiology Services (Routine) Status Reason Specialty Diagnoses / Referred By Referred To Procedures Contact Contact Closed Diagnostic Diagnoses Asymptomatic menopausal state Asymptomatic menopausal state Riggs, Radiology Procedures DEXA AXIAL (HIP AND SPINE) CHG DEXA,BONE DENSITY, 1 + SITE, AXIAL SKELETON Vanesa Soriano MD [address] [place] [address] Dr Peña [address] [place] [address] Radiology Services (Routine) Status Reason Specialty Diagnoses / Referred By Referred To Procedures Contact Contact Closed Diagnostic Diagnoses Asymptomatic menopausal state Asymptomatic menopausal state Riggs, Radiology Procedures DEXA AXIAL (HIP AND SPINE) CHG DEXA,BONE DENSITY, 1 + SITE, AXIAL SKELETON Vanesa Soriano MD [address] [place] [address] Dr Peña [address] [place] [address] Reason for Visit Radiology Services (Routine) Status Reason Specialty Diagnoses / Referred By Referred To Procedures Contact Contact Closed Diagnostic Diagnoses Asymptomatic menopausal state Asymptomatic menopausal state Riggs, Radiology Procedures DEXA AXIAL (HIP AND SPINE) CHG DEXA,BONE DENSITY, 1 + SITE, AXIAL SKELETON Vanesa Soriano MD [address] [place] [address] Dr Peña [address] [place] [address] Encounter Details Date Type Department Care Team Description 03/07/2019 Hospital Encounter [facility] Marysol Haque Arrived [place] Breast Imagi tiny Soriano MD [address] [facility] [address] [facility] [address] [place], [facility] 103 [address] [place] [address] [phone] Allergies No Known Allergiesdocumented as of this encounter (statuses as of 03/08/2019) Medications Medication Sig Dispensed Refills Start Date [...] ve 70-hypromellose both eyes once (ARTIFICIAL now. TEARS,[id number],) 0.1-0.3 % nortriptyline 25 mg Take 1 capsule by 30 capsule 3 02/14/2019 Active capsuleIndications: mouth at bedtime. Numbness Every night for pain in legs. pantoprazole Take 1 tablet by 90 tablet 3 02/14/2019 Active (PROTONIX) 40 mg EC mouth daily. tabletIndications: Esophagitis documented as of this encounter (statuses as of 03/08/2019) Active Problems Problem Noted Date Hypotension 11/21/2018 [...] as of this encounter (statuses as of 03/08/2019) Immunizations Name Administration Dates Next Due Influenza [...] Treatment Date Type Specialty Care Team Description 03/19/2019 Appointment Radiology Leann Riggs MD [address] [place] [address] 77 15 [phone] 03/21/2019 Office Visit Internal Medicine Marysol Riggs MD [address] [place] [address] 77 15 [phone] Health Maintenance Due Date Last Done Comments [...] of this encounter Implants Implanted Type Area Laborer Sawmill Device Shelf Model / Serial Identifier Expiration / Lot Date Log [id number] - Tray, Eddie Lens (Virtual) - 1 - Sn60wf 19.0d, Eddie Lens LENS Left: Eye Eddie 12/28/2015 SN60WF 19.0D / Implanted: Qty: 1 on 06/29/2011 at [facility] [id number] / documented as of this encounter Procedures Procedure Name Priority Date/Time Associated Diagnosis Comme nts DEXA AXIAL (HIP AND Routine 03/07/2019 10:59 Asymptomatic Resu lts for this SPINE) AM CDT menopausal state procedure a re in the results section. documented in this encounter Results DEXA AXIAL (HIP AND SPINE) (03/07/2019 10:59 AM CDT) Specimen Impressions Performed At PACS/VR/DOSE Osteopenia. Narrative Performed At EXAM: DEXA AXIAL (HIP AND SPINE) PACS/VR/DOSE HISTORY: 73 yearsFemale; osteoporosi s screening. COMPARISON:None TECHNIQUE: Bone densitometry of the lumbar spine and right hip wa s performed on a MollyWatr system. WHO-definitionsT score normal T >/= - 1 SD ar ound the mean osteopenia-1 > T > - 2.5 SD below the mean osteoporosis T >/= -2.5 SD below the mean Fracture risk doubles for each 1.5 SD below the mean. ---- FINDINGS: 1. Lumbar spine L1-L4: T score -1.8. Bone mineral density of 0.977 g/cm^2. 2. Right Hip: T score -1.6.Bone mine ral density of 0.812 g/cm^2. Right Neck: T score -1.3.Bone minera l density of 0.863 g/cm^2. Procedure Note [facility], Radiant Results Inft User - 2018 12:08 PM CDT EXAM: DEXA AXIAL (HIP AND SPINE) HISTORY: 73 years Female; osteoporosis screening. COMPARISON: None TECHNIQUE: Bone densitometry of the lumbar spine an d right hip was performed on a MollyWatr system. ---- WHO-definitions T score normal T >/= - 1 SD arou nd the mean osteopenia -1 > T > -2.5 SD bel ow the mean osteoporosis T >/= -2.5 SD below t he mean Fracture risk doubles for each 1.5 SD be low the mean. ---- FINDINGS: 1. Lumbar spine L1-L4: T score -1.8. Glenn ne mineral density of 0.977 g/cm^2. 2. Right Hip: T score -1.6. Bone minera l density of 0.812 g/cm^2. Right Neck: T score -1.3. Bone mineral density of 0.863 g/cm^2. IMPRESSION Osteopenia. Performing Organization Address City/State/Zipcode Phone Number PACS/VR/DOSE documented in this encounter Visit Diagnoses Diagnosis Asymptomatic menopausal state Asymptomatic postmenopausal status (age- related) (natural) documented in this encounter Insurance Payer Benefit Plan / Subscriber ID Effective Phone Address T ype Group Dates [facility] [id number] 2017-Pres Medica re HEALTHCARE - HEALTHCARE ent Adv HM O MANAGED DUAL COMPLETE MEDICARE HMO [facility] MEDICAID OF xxxxxxxxx 2019-Pres [phone] [place] ent [id number] [place] [address] documented as of this encounter Advance Directives Type Date Recorded 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
--- OUTSIDE RECORDS SUMMARY | 2019-10-30 10:15 | XMS REPORT | Summary of Care ---
:1945 Author Organization [facility] Address [address] [place] [address] Care Team Providers Name Role Phone Vanesa Riggs MD Primary Care Provider Beni Cuenca MD Unavailable Reason for Referral Radiology Services (Routine) Status Reason Specialty Diagnoses / Referred By Referred To Procedures Contact Contact Closed Diagnostic Diagnoses Encounter for screening mammogram for breast cancer Encounter for screening mammogram for breast cancer Oneil, Radiology Procedures BI SCREENING MAMMOGRAM BILATERAL CHG SCREENING MAMMOGRAPHY BI 2-VIEW BREAST INC CAD SCREENING MAMMOGRAM BILATERAL Vanesa Soriano MD [address] [place] [address] Dr Peña [address] [place] [address] Radiology Services (Routine) Status Reason Specialty Diagnoses / Referred By Referred To Procedures Contact Contact Closed Diagnostic Diagnoses Encounter for screening mammogram for breast cancer Encounter for screening mammogram for breast cancer Oneil, Radiology Procedures BI SCREENING MAMMOGRAM BILATERAL CHG SCREENING MAMMOGRAPHY BI 2-VIEW BREAST INC CAD SCREENING MAMMOGRAM BILATERAL Vanesa Soriano MD [address] [place] [address] Dr Peña [address] [place] [address] Reason for Visit Radiology Services (Routine) Status Reason Specialty Diagnoses / Referred By Referred To Procedures Contact Contact Closed Diagnostic Diagnoses Encounter for screening mammogram for breast cancer Encounter for screening mammogram for breast cancer Riggs, Radiology Procedures BI SCREENING MAMMOGRAM BILATERAL CHG SCREENING MAMMOGRAPHY BI 2-VIEW BREAST INC CAD SCREENING MAMMOGRAM BILATERAL Vanesa Soriano MD [address] [facility] [address] Peña [address] [place] [address] Encounter Details Date Type Department Care Team Description 03/07/2019 Hospital Encounter [facility] Oneil, Marysol marshall Arrived [place] Breast Imagi tiny Soriano MD [address] [facility] [address] [facility] [place], [facility] 103 [address] [place] [address] [phone] Allergies No Known Allergiesdocumented as of this [...] ve 70-hypromellose both eyes once (ARTIFICIAL now. TEARS,[id number],) 0.1-0.3 % nortriptyline 25 mg Take 1 [...] Description 03/19/2019 Appointment Radiology Leann Riggs MD [address] 77 15 [phone] 03/21/2019 Office Visit Internal Medicine Marysol Riggs MD [address] [facility] [address] [facility] 103 [place], [place] [address] [phone] Health Maintenance Due Date Last Done Comments [...] of this encounter Implants Implanted Type Area Pit Shoveler Device Shelf Model / Serial Identifier Expiration / Lot Date Log [id number] - Joel, Eddie Lens (Virtual) - 1 - Sn60wf 19.0d, Eddie Lens LENS Left: Eye Eddie 12/28/2015 SN60WF 19.0D / Implanted: Qty: 1 on 06/29/2011 at [facility] [id number] / documented as of this encounter Procedures Procedure Name Priority Date/Time Associated Comments Diagnosis BI SCREENING Routine 03/07/2019 11:00 AM Encounter for Results for this MAMMOGRAM BILATERAL CDT screening mammogram p rocedure are in for breast cancer the result s section. NOTICE OF PRIVACY Routine 03/07/2019 10:17 AM PRACTICES CDT CONSENT/REFUSAL FOR Routine 03/07/2019 10:16 AM DIAGNOSIS AND CDT TREATMENT ASSIGNMENT OF Routine 03/07/2019 10:15 AM BENEFITS CDT documented in this encounter Results BI SCREENING MAMMOGRAM BILATERAL (03/07/2019 11:00 AM CDT) Specimen Narrative Performed At This result has an attachment that is no t available. Examination: PACS BI SCREENING MAMMOGRAM BILATERAL History: Patient is 73 year old and is seen for:Screening m ammogram. ok for radiologist to place any additional orders needed.. No relevant hormone history has been documented for t his patient. No relevant surgical history has been documented for this patient. No relevant medical history has been documented for this patient. Computer-aided detection (CAD) utilized. Comparisons: 04/26/2011 DIGITAL MAMMOGRAM, SCREENING Findings: The breasts have scattered areas of fibroglandular den sity. There is no evidence of suspicious masses, calcifications, or othe r abnormal findings. Impression: No mammographic evidence of malignancy. Recommendation: Annual mammographic follow-up BI-RADS Category: Both 1 - Negative Performing Organization Address City/State/Zipcode Phone Number PACS documented in this encounter Visit Diagnoses Diagnosis Encounter for screening mammogram for br east cancer documented in this encounter Insurance Payer Benefit Plan / Subscriber ID Effective Phone Address T ype Group Dates [facility] [id number] 2017-Pres [facility] - HEALTHCARE ent Adv HM O MANAGED DUAL COMPLETE MEDICARE HMO [facility] MEDICAID OF xxxxxxxxx 2019-Pres [phone] Medi caid [place] ent [id number] [place] [address] documented as of this encounter Advance Directives Type Date Recorded 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
--- OUTSIDE RECORDS SUMMARY | 2019-10-30 10:15 | XMS REPORT | Summary of Care ---
:1945 Author Organization [facility] Address [address] [place] [address] Care Team Providers Name Role Phone Vanesa Riggs MD Primary Care Provider [phone] Beni Cuenca MD Unavailable Reason for Referral Radiology Services (Routine) Status Reason Specialty Diagnoses / Referred By Referred To Procedures Contact Contact Closed Diagnostic Diagnoses Right foot pain Oneil, Radiology Procedures XR FOOT 3+ VW RIGHT Vanesa Soriano MD [address] [place] [phone] Reason for Visit Reason Comments Follow-up Refill Request Leg Pain Auth/Cert Status Reason Specialty Diagnoses / Procedures Referred By C ontact Referred To Contact Radiology Diagnoses Type 2 diabetes mellitus with hyperglycemia Adc X-Ray [address] [facility] [place] [address] Fax: Encounter Details Date Type Department Care Team Description 07/17/2019 Office Visit [facility] Oneil, Right foot pain (Primary Dx); Pediatric and Adult Vanesa Soriano MD Numbness; Primary Care- [address] [facility] D r Uncontrolled type 2 diabetes mellitus wi thout complication, with long-term current use of insulin; [place] [address] Diabetic polyneuropathy associated with type 2 diabetes mellitus; [address] [place] [id number] Other constipation; [address] Eye problem; [place] [address] Allergies No Known Allergiesdocumented as of this encounter (statuses as of 07/22/2019) Medications Medication Sig Dispensed Refills Start End Date Status Date Blood-Glucose Meter Use BID, DX 1 Kit 0 Active KitIndications: E11.9 (Brand 8 Uncontrolled type 2 upon diabetes mellitus insurance without approval) complication, with long-term current use of insulin lancets-blood 1 Each 2 100 Each 11 Active glucose strips 30 (two) times 8 gauge daily. Use CmpkIndications: BID, DX E11.9 Uncontrolled type 2 (Brand upon diabetes mellitus insurance without approval) complication, with long-term current use of insulin blood sugar Check blood 100 Box 11 Active diagnostic sugar twice a 8 stripIndications: day. E11.9 Uncontrolled type 2 diabetes mellitus without complication, with long-term current use of insulin dextran Place 1 Drop 0 Active 70-hypromellose in both eyes (ARTIFICIAL once now. TEARS,[id number], ) 0.1-0.3 % nortriptyline 25 mg Take 1 90 capsule 3 Active capsuleIndications: capsule by 0 Numbness mouth at bedtime. Every night for pain in legs. glipiZIDE 10 mg Take 1 tablet 180 tablet 3 Active tabletIndications: by mouth 2 0 Uncontrolled type 2 (two) times diabetes mellitus daily before without breakfast and complication, with dinner. long-term current use of insulin metFORMIN 1,000 mg Take 1 tablet 180 tablet 3 Active tabletIndications: by mouth 2 0 Uncontrolled type 2 (two) times diabetes mellitus daily with without meals. complication, with long-term current use of insulin gabapentin 300 mg Take 1 270 capsule 3 Active capsuleIndications: capsule by 0 Diabetic mouth 3 polyneuropathy (three) times associated with daily. type 2 diabetes mellitus Diclofenac Sodium Take 2-4 100 g 3 Ac tive (VOLTAREN) 1 % grams three 0 gelIndications: times a day Right foot pain as needed for pain sulfamethoxazole-tr Take 1 tablet 20 tablet 0 Active imethoprim (BACTRIM by mouth 2 0 20 DS) 800-160 mg per (two) times tabletIndications: daily for 10 Abscess days. glipiZIDE 10 mg Take 1 tablet 180 tablet 3 07/17/19 Discontinued tabletIndications: by mouth 2 8 20 (Reorder) Uncontrolled type 2 (two) times diabetes mellitus daily before without breakfast and complication, with dinner. long-term current use of insulin metFORMIN 1,000 mg Take 1 tablet 180 tablet 3 Discontinued tabletIndications: by mouth 2 8 20 (Reorder) Uncontrolled type 2 (two) times diabetes mellitus daily with without meals. complication, with long-term current use of insulin nortriptyline 25 mg Take 1 30 capsule 3 07/17/19 Discontinued capsuleIndications: capsule by 9 20 (Reorder) Numbness mouth at bedtime. Every night for pain in legs. pantoprazole Take 1 tablet 90 tablet 3 07/17/19 Dis continued (PROTONIX) 40 mg EC by mouth 9 20 (Therapy tabletIndications: daily. c ompleted) Esophagitis documented as of this encounter (statuses as of 07/22/2019) Active Problems Problem Noted Date Hypotension 11/21/2018 [...] as of this encounter (statuses as of 07/22/2019) Immunizations Name Administration Dates Next Due Influenza High Dose 03/26/2019, 04/10/2018, 03/28/2017 Influenza Virus Vaccine 04/26/2011 Pneumococcal 13 Conjugate, PCV13 (Prevnar 03/28/2017 13) Pneumococcal 7 Conjugate, PCV7 (Prevnar7) 04/26/2011 Pneumococcal Polysaccharide, PPSV23 04/10/2018 (PNEUMOVAX) documented as of this encounter Social History [...] Sign Reading Time Taken Comments Blood Pressure 118/72 07/17/2019 12:50 PM LIFE SCIENCES TEACHER Pulse 78 07/17/2019 12:50 PM LIFE SCIENCES TEACHER Temperature - - Respiratory Rate 16 07/17/2019 12:50 PM LIFE SCIENCES TEACHER Oxygen Saturation - - Inhaled Oxygen Concentration - - Weight 67.1 kg (147 lb 14.4 oz) 07/17/2019 12:50 PM LIFE SCIENCES TEACHER Height 162.6 cm (5' 4") 07/17/2019 12:50 PM LIFE SCIENCES TEACHER Body Mass Index 25.39 07/17/2019 12:50 PM LIFE SCIENCES TEACHER documented in this encounter Patient Instructions Patient InstructionsPatria Townsend - 07/17/2019 1:40 PM CSTTalk to pharmacy about tetanus and shingles vaccine. SCIENCES TEACHER documented in this encounter Progress Notes Vanesa Riggs MD - 07/17/2019 1:40 PM CST DOS: 07/17/2019 CC: Follow up of chronic conditions HPI: Maria Isabel Stacy is a 73 year old female with history including has a past medical historyof Benign essential HTN (1995), Cataracts, bilateral (2009), Diabetes mellitus (2005), Diabetic neuropathy, Right wrist fracture (2007), and Shoulder fracture, right (2007). who is being seen today forfollow up of chronic conditions. Patient states she needs refills on her medications. Patient states she broke the second and third toe on the right foot. Since she broke her toes she's had pain to the other toes and pain from the bottom up her foot up part of her leg. She states she has pain when she puts pressure on her foot. Patient states she has a pimple like bump near the groin area. She states she popped it and drained the pus but it came back. Patient reports occasional constipation. She states she drinks a Coke and has a BM. Patient states her right eye is sometimes foggy. Her Iron levels are low normal. Patient denies issues with bleeding. Health Maintenance Patient is due for eye exam, she will follow with eye doctor. Discussed tetanus and shingles vaccine, patient will talk to pharmacy. Medications reviewed in EPIC, past medical history and social history and allergies reviewed. Review of Systems Respiratory: Negative for shortness of breath. Cardiovascular: Negative for chest pain. Gastrointestinal: Positive for constipation (occasional). Musculoskeletal: + right foot pain PE: Blood pressure 118/72, pulse 78, resp. rate 16, height 5' 4" (1.626 m), weight 147 lb 14.4 oz (67.1 kg). Physical Exam Constitutional: She is oriented to person, place, and time. She appears well- developed and well-nourished. No distress. HENT: Head: Normocephalic and atraumatic. Right Ear: External ear normal. Left Ear: External ear normal. Nose: Nose normal. No tracheal deviation Eyes: Right eye exhibits no discharge. Left eye exhibits no discharge. No scleral icterus. Left and right eyelids normal. Musculoskeletal: Legs: Neurological: She is alert and oriented to person, place, and time. No tremors. Normal gait. Skin: Skin is warm and dry. She is not diaphoretic. Psychiatric: She has a normal mood and affect. Her behavior is normal. Pleasant. Vitals reviewed. Results: No new labs A/P: Maria Isabel Stacy is a 73 year old female with history including has a past medical history of Benign essential HTN (1995), Cataracts, bilateral (2009), Diabetes mellitus (2005), Diabetic neuropathy, Right wrist fracture (2007), and Shoulder fracture, right (2007). who is being seen today for chronic medical conditions. Right foot pain (primary encounter diagnosis) Comment: pain is worse. Patient will get imaging. If she has any other broken bones will send her toa specialist. Plan: XR FOOT 3+ VW RIGHT, START Diclofenac Sodium (VOLTAREN) 1 % gel Numbness Comment: needs refill. Plan: nortriptyline 25 mg capsule Uncontrolled type 2 diabetes mellitus without complication, with long-term current use of insulin Comment: will check labs. Plan: glipiZIDE 10 mg tablet, metFORMIN 1,000 mg tablet, GLYCOSYLATED HEMOGLOBIN (A1C), MICROALBUMIN URINE, THYROID STIMULATING HORMONE, FREE T4, FREE T3, COMP. METABOLIC PANEL (06407) Diabetic polyneuropathy associated with type 2 diabetes mellitus Comment: stable. Needs refill. Plan: gabapentin 300 mg capsule Other constipation Comment: occasional. Drinks Coke for relief. Plan: monitor. Eye problem Comment: patient reports right eye fogginess Plan: patient will follow with eye doctor. Abscess Comment: patient reports pimple like bump near the groin area. She popped it but it came back. Plan: sulfamethoxazole-trimethoprim (BACTRIM DS) 800-160 mg per tablet Return in about 4 months (around 11/15/2019) for Medicare wellness exam. Plan of care, desired health behaviors, goals,& medication discussed with patient and educational resources and self management tools provided as appropriate. Patient/family/guardian voices understanding. Patient verbalized understanding & agrees to plan of care. Barriers to care: none Ability to manage care: good Scribe's Attestation IPatria , am scribing for, and in the presence of, Vanesa Riggs MD who performed the services described here-in. Patria Townsend, July 17, 2019, 3:04 PM Physician's Attestation I, Vanesa Riggs MD, personally performed the services described in this documentation , asscribed by, Patria Townsend in my presence and it is both accurate and complete. Vanesa Riggs MD July 22, 2019, 5:59 PM SCIENCES TEACHER documented in this encounter Plan of Treatment Health Maintenance Due Date Last Done Comments COLONOSCOPY 09/28/2011 09/27/2001 FOOT EXAM 03/25/2019 03/25/2018, 03/28/2017, 03/28/2017 EYE EXAM 05/21/2019 05/21/2018, 01/31/2017 (Previously completed), 10/27/2013, Additional history exists LDL-C 10/01/2019 09/30/2018, 05/29/2016, 04/26/2012, Additional history exists Medicare Wellness Visit 10/29/2019 10/28/2018 HgA1C 01/15/2020 07/17/2019, 11/21/2018, 09/30/2018, Additional history exists Breast Cancer Screening 03/07/2020 03/07/2019, 04/26/2011 (MAMMOGRAM) CREATININE (SERUM) 07/17/2020 07/17/2019, 02/14/2019, 11/22/2018, Additional history exists URINE MICROALBUMIN 07/17/2020 07/17/2019, 04/10/2018, 05/30/2016, Additional history exists Zoster Recombinant Vaccine 07/17/2020 Postp oned from (SHINGRIX) (1 of 2) 1996 ( Insurance / Financial) DTaP,Tdap,and Td Vaccines 08/16/2020 Postpo rand from (1 - Tdap) 1957 ([employer] / Financial) Osteoporosis Screening 03/07/2029 03/07/2019 HEPATITIS C (HCV) SCREEN Completed 04/10/2018 PNEUMOCOCCAL VACCINES 65+ Completed 04/10/2018, 03/28/2017 INFLUENZA VACCINE Completed 03/26/2019, 04/10/2018, 03/28/2017, Additional history exists documented as of this encounter Implants Implanted Type Area Manager Therapy Device Shelf Model / Serial Identifier Expiration / Lot Date Log [id number] - Tray, Eddie Lens (Virtual) - 1 - [id number] 19.0d, Eddie Lens LENS Left: Eye Eddie 12/28/2015 [id number] 19.0D / Implanted: Qty: 1 on 06/29/2011 at [facility] [id number] / documented as of this encounter Procedures Procedure Name Priority Date/Time Associated Diagnosis Comme nts FREE T3 Routine 07/17/2019 4:53 Uncontrolled type 2 Resu lts for this PM LIFE SCIENCES TEACHER diabetes mellitus procedure are in without the results complication, with section. long-term current use of insulin GLYCOSYLATED Routine 07/17/2019 4:53 Uncontrolled type 2 Resu lts for this HEMOGLOBIN (A1C) PM LIFE SCIENCES TEACHER diabetes mellitus proced ure are in without the results complication, with section. long-term current use of insulin COMP. METABOLIC PANEL Routine 07/17/2019 4:53 Uncontrolled ty pe 2 Results for this (12725) PM LIFE SCIENCES TEACHER diabetes mellitus procedure are in without the results complication, with section. long-term current use of insulin MICROALBUMIN URINE Routine 07/17/2019 4:53 Uncontrolled type 2 Results for this PM LIFE SCIENCES TEACHER diabetes mellitus procedure are in without the results complication, with section. long-term current use of insulin THYROID STIMULATING Routine 07/17/2019 4:53 Uncontrolled type 2 Results for this HORMONE PM LIFE SCIENCES TEACHER diabetes mellitus procedure are in without the results complication, with section. long-term current use of insulin FREE T4 Routine 07/17/2019 4:53 Uncontrolled type 2 Resu lts for this PM LIFE SCIENCES TEACHER diabetes mellitus procedure are in without the results complication, with section. long-term current use of insulin documented in this encounter Results COMP. METABOLIC PANEL (79875) (07/17/2019 4:53 PM LIFE SCIENCES TEACHER) Pathologist Sig nature NA 137 135 - 145 [facility] mmol/L [facility] K 4.9 3.5 - 5.0 [facility] mmol/L [facility] CL 98 98 - 108 mmol/L [facility] CO2 TOTAL 31 23 - 31 mmol/L [facility] AGAP 8 2 - 16 [facility] BUN 21 7 - 23 mg/dL [facility] GLUCOSE 320 (H) 70 - 110 mg/dL [facility] CREATININE 0.73 0.50 - 1.04 [facility] mg/dL [facility] TOTAL BILI 1.0 0.1 - 1.1 mg/dL [facility] CALCIUM 10.1 8.6 - 10.6 [facility] mg/dL [facility] T PROTEIN 8.2 6.3 - 8.2 g/dL [facility] ALBUMIN 4.4 3.5 - 5.0 g/dL [facility] ALK PHOS 130 (H) 34 - 122 U/L [facility] ALTv 21 5 - 35 U/L [facility] AST(SGOT) 21 13 - 40 U/L [facility] eGFR Calculation 78.4 mL/min/1.73m2 [facility] ([facility]) eGFR Calculation 95.0 mL/min/1.73m2 [facility] () [facility] Specimen Blood Narrative Performed At Association of Glomerular Filtration Rate (GFR) [facility] and Staging of Kidney Disease* + + +- + | GFR (mL/min/1.73 m2) | With Kidney Damage | Without Kidney Damage + + +- + | >90 | Stage one | Normal + + +- + | 60-89 | Stage two | Decreased GFR + + +- + | 30-59 | Stage three | Stage three + + +- + | 15-29 | Stage four | Stage four + + +- + | <15 (or dialysis) | Stage five | Stage five + + +- + *Each stage assumes the associated GFR level has been in effect for at least three months. Stages 1 to 5, with or without kidney disease, indicate chronic kidney disease. Notes: Determination of stages one and two (with eGFR >59mL/min/1.73 m2) requires estimation of kidney damage for at least three months as defined by structural or functional abnormalities of the kidney, manifested by either: Pathological abnormalities or Markers of kidney damage (including abnormalities in the composition of the blood or urine or abnormalities in imaging tests). Performing Organization Address [facility] Phone Number [facility] [id number], [address] [place] [address] FREE T3 (07/17/2019 4:53 PM LIFE SCIENCES TEACHER) Pathologist Sig nature FREE T3 3.02 2.77 - 5.27 pg/mL [facility] Specimen Blood Performing Organization Address [facility] Phone Number [facility] [id number], [address] [place] [address] FREE T4 (07/17/2019 4:53 PM LIFE SCIENCES TEACHER) Pathologist Sig nature FREE T4 1.22 0.78 - 2.20 ng/dL [facility] Specimen Blood Performing Organization Address [facility] Phone Number [facility] [id number], [address] [place] [address] THYROID STIMULATING HORMONE (07/17/2019 4:53 PM LIFE SCIENCES TEACHER) Pathologist Sig nature TSH 1.96 0.45 - 4.70 mIU/L [facility] Specimen Blood Performing Organization Address [facility] Phone Number [facility]: [id number], [address] [place] [address] MICROALBUMIN URINE (07/17/2019 4:53 PM LIFE SCIENCES TEACHER) Pathologist Sig nature CREAT U 87.4 mg/dL [facility] MICROALB U 15 0 - 45 ug/mL [facility] MICROAL/CR 17 0 - 30 mg/g of [facility] creatinine SERVICES Specimen Urine Narrative Performed At Normal: <30 mg/g creatinine [facility] Microalbuminuria: 30 - 299 mg/g creatini ne Clinical albuminuria: > 300 mg/g creatinine Performing Organization Address City/State/Zipcode Phone Number [facility] CLIA: [id number], [address] [place], [place] [address] [facility] GLYCOSYLATED HEMOGLOBIN (A1C) (07/17/2019 4:53 PM LIFE SCIENCES TEACHER) Pathologist Sig nature HGB A1C 11.3 (H) 4.0 - 6.0 % NGSP [facility] Specimen Blood Narrative Performed At %A1C (NGSP) Interpretation (ADA) [facility] 4.8-5.6 Normal or (Non-Diabetic Ra nge) 5.7-6.4 Increased Risk (Pre-Diabet ic) >6.5 Diabetes Indicated Performing Organization Address City/[facility] Phone Number [facility] CLIA: [id number], [address] [place], [place] [address] XR FOOT 3+ VW RIGHT (07/17/2019 4:24 PM LIFE SCIENCES TEACHER) Specimen Narrative Performed At HISTORY: Worsening right foot pain. PACS/VR/DOSE FINDINGS: AP, lateral and oblique view o f right foot are obtained and compared with 01/04/2018 study. Diffuse osteopenia is s uspected. Previously detected fracture in the proximal phalan x of the second and fourth toes have completely healed at this time. A very large and 19 mm sized heel spur n oted. No acute fracture or dislocation detected. Mild degenerative arthritis is n oted in the first MTP joint, minimal degenerative arthritis is noted in the talonavicular joint, in the intertarsal joint between navicular and cuneifo rm and in the first tarsometatarsal joint. CONCLUSIONS: No acute fracture or disloc ation in right foot. Procedure Note [facility], Radiant Results Inft User - 2019 4:31 PM LIFE SCIENCES TEACHER HISTORY: Worsening right foot pain. FINDINGS: AP, lateral and oblique view o f right foot are obtained and compared with 01/04/2018 study. Diffuse o steopenia is suspected. Previously detected fracture in the proximal phalan x of the second and fourth toes have completely healed at this time. A very large and 19 mm sized heel spur n oted. No acute fracture or dislocation detected. Mild degenerative arthritis is noted in the first MTP joint, minimal degenerative arthritis is noted in the talonavicular joint, in the intertarsal joint between navicul ar and cuneiform and in the first tarsometatarsal joint. CONCLUSIONS: No acute fracture or disloc ation in right foot. Performing Organization Address City/State/Zipcode Phone Number PACS/VR/DOSE documented in this encounter Visit Diagnoses Diagnosis Right foot pain - Primary Pain in limb Numbness Disturbance of skin sensation Uncontrolled type 2 diabetes mellitus wi thout complication, with long-term current use of insulin Diabetic polyneuropathy associated with type 2 diabetes mellitus Other constipation Eye problem Other eye problems Abscess Cellulitis and abscess of unspecified si te documented in this encounter Insurance Payer Benefit Plan / Subscriber ID Effective Phone Address T ype Group Dates [facility] [id number] 2017-Pres Medica re HEALTHCARE - HEALTHCARE ent Adv HM O MANAGED DUAL COMPLETE MEDICARE HMO [facility] MEDICAID OF xxxxxxxxx 2019-Pres [phone] [place] ent [id number] [place] [address] documented as of this encounter Advance Directives Type Date Recorded Patient Center Director Explanati on Advance Directives and Living Will Power of Inside Sales Director
--- OUTSIDE RECORDS SUMMARY | 2019-10-30 10:15 | XMS REPORT | Summary of Care ---
:1945 Author Organization [facility] Address [address] [place] [address] Care Team Providers Name Role Phone Vanesa Riggs MD Primary Care Provider [phone] Beni Cuenca MD Unavailable Reason for Visit Reason Comments Forms Encounter Details Date Type Department Care Team Description 02/27/2019 Telephone [facility] Pediatric and Mariela Riggs Forms Adult Primary Care- MD Wiggins [address] [place] [address], [address] [place] [address] [place] [address] [phone] Allergies No Known Allergiesdocumented as of this encounter (statuses as of 02/27/2019) Medications Medication Sig Dispensed Refills Start Date [...] ve 70-hypromellose both eyes once (ARTIFICIAL now. TEARS,[id number],) 0.1-0.3 % nortriptyline 25 mg Take 1 capsule by 30 capsule 3 02/14/2019 Active capsuleIndications: mouth at bedtime. Numbness Every night for pain in legs. pantoprazole Take 1 tablet by 90 tablet 3 02/14/2019 Active (PROTONIX) 40 mg EC mouth daily. tabletIndications: Esophagitis documented as of this encounter (statuses as of 02/27/2019) Active Problems Problem Noted Date Hypotension 11/21/2018 [...] as of this encounter (statuses as of 02/27/2019) Immunizations Name Administration Dates Next Due Influenza [...] Internal Medicine Marysol Riggs MD [address] [place] [place] [address] [phone] Health Maintenance Due Date Last Done Comments [...] of this encounter Implants Implanted Type Area Night Guard Device Shelf Model / Serial Identifier Expiration / Lot Date Log [id number] - Tray, Eddie Lens (Virtual) - 1 - Sn60wf 19.0d, Eddie Lens LENS Left: Eye Eddie 12/28/2015 [id number] 19.0D / Implanted: Qty: 1 on 06/29/2011 at [facility] [id number] / documented as of this encounter Results Not on filedocumented in this encounter Insurance Payer Benefit Plan / Subscriber ID Effective Phone Address T e Group Dates [facility] [id number] 2017-Prese Medic are Adv HEALTHCARE - HEALTHCARE DUAL nt H [place] MANAGED COMPLETE HMO MEDICARE documented as of this encounter Advance Directives Type Date Recorded Patient Sporting Goods Sales Manager Explanati on Advance Directives and Living Will Power of Finish Cleaner
--- OUTSIDE RECORDS SUMMARY | 2019-10-30 10:16 | XMS REPORT | Summary of Care ---
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 TEARS,[id number],) 0.1-0.3 % nortriptyline 25 mg Take 1 capsule 90 capsule 3 07/17/2019 Active capsuleIndications: by mouth at Numbness bedtime. Every night for pain in legs. glipiZIDE 10 mg Take 1 tablet by 180 tablet 3 07/17/2019 Active tabletIndications: mouth 2 (two) Uncontrolled type 2 times daily diabetes mellitus before breakfast without complication, and dinner. with long-term current use of insulin metFORMIN 1,000 mg Take 1 tablet by 180 tablet 3 07/17/2019 Active tabletIndications: mouth 2 (two) Uncontrolled type 2 times daily with diabetes mellitus meals. without complication, with long-term current use of insulin gabapentin 300 mg Take 1 capsule 270 capsule 3 07/17/2019 Active capsuleIndications: by mouth 3 Diabetic (three) times polyneuropathy daily. associated with type 2 diabetes mellitus Diclofenac Sodium Take 2-4 grams 100 g 3 07/17/2019 Active (VOLTAREN) 1 % three times a gelIndications: Right day as needed foot pain for pain sulfamethoxazole-trim Take 1 tablet by 20 tablet 0 07/17/2019 07/27/2019 Active ethoprim (BACTRIM DS) mouth 2 (two) 800-160 mg per times daily for tabletIndications: 10 days. Abscess documented as of this encounter (statuses as of 07/17/2019) Active Problems Problem Noted Date Hypotension 11/21/2018 [...] as of this encounter (statuses as of 07/17/2019) Immunizations Name Administration Dates Next Due Influenza [...] filedocumented in this encounter Plan of Treatment Health Maintenance Due Date Last Done Comments COLONOSCOPY 09/28/2011 09/27/2001 FOOT EXAM 03/25/2019 03/25/2018, 03/28/2017, 03/28/2017 URINE MICROALBUMIN 04/10/2019 04/10/2018, 05/30/2016, 09/06/2011 EYE EXAM 05/21/2019 05/21/2018, 01/31/2017 (Previously completed), 10/27/2013, Additional history exists HgA1C 05/23/2019 11/21/2018, 09/30/2018, 03/25/2018, Additional history exists LDL-C 10/01/2019 09/30/2018, 05/29/2016, 04/26/2012, Additional history exists Medicare Wellness Visit 10/29/2019 10/28/2018 CREATININE (SERUM) 02/15/2020 02/14/2019, 11/22/2018, 11/21/2018, Additional history exists Breast Cancer Screening 03/07/2020 03/07/2019, 04/26/2011 (MAMMOGRAM) Zoster Recombinant Vaccine 07/17/2020 Postp oned from [...] of this encounter Implants Implanted Type Area Theatre Manager Device Shelf Model / Serial Identifier Expiration / Lot Date Log [id number] - Tray, Eddie Lens (Virtual) - 1 - Sn60wf 19.0d, Eddie Lens LENS Left: Eye Eddie 12/28/2015 SN60WF 19.0D / Implanted: Qty: 1 on 06/29/2011 at [facility] [id number] / documented as of this encounter Results Not on filedocumented in this encounter Visit Diagnoses Diagnosis Routine general medical examination at a health care facility documented in this encounter Insurance Payer Benefit Plan / Subscriber ID Effective Phone Address T ype Group [facility] [id number] 2017-Pres Medica re HEALTHCARE - HEALTHCARE ent Adv HM O MANAGED DUAL COMPLETE MEDICARE HMO [facility] MEDICAID OF xxxxxxxxx 2019-Pres [phone] [address] [facility] [phone] [place] [address] documented as of this encounter Advance Directives Type Date Recorded 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
--- OUTSIDE RECORDS SUMMARY | 2019-10-30 10:16 | XMS REPORT | Summary of Care ---
:1945 Author Organization [facility] Address [address] [place] [address] Care Team Providers Name Role Phone Vanesa Riggs MD Primary Care Provider [phone] Beni Cuenca MD Unavailable Reason for Referral Radiology Services (Routine) Status Reason Specialty Diagnoses / Referred By Referred To Procedures Contact Contact Closed Diagnostic Diagnoses Right foot pain Oneil, Radiology Procedures XR FOOT 3+ VW RIGHT Vanesa Soriano MD [address] [place] [address] Reason for Visit Reason Comments Follow-up Refill Request Leg Pain Auth/Cert Status Reason Specialty Diagnoses / Procedures Referred By C ontact Referred To Contact Radiology Diagnoses Type 2 diabetes mellitus with hyperglycemia [facility] X-Ray [address] [facility] [place] [address] Fax: Encounter Details Date Type Department Care Team Description 07/17/[address] [facility] Oneil, Right foot pain (Primary Dx); Pediatric and Adult Vanesa Soriano MD Numbness; Primary Care- [address] [facility] D r Uncontrolled type 2 diabetes mellitus wi thout complication, with long-term current use of insulin; [place] [address] Diabetic polyneuropathy associated with type 2 diabetes mellitus; [address] [place] [address] Other constipation; [address] Eye problem; [place] abscess [address] Allergies No Known Allergiesdocumented as [...] 70-hypromellose in both eyes (ARTIFICIAL once now. TEARS,[id number], ) 0.1-0.3 % nortriptyline 25 mg Take [...] Comments Blood Pressure 118/72 07/17/2019 12:50 PM CERTIFIED CREDIT COUNSELOR Pulse 78 07/17/2019 12:50 PM CERTIFIED CREDIT COUNSELOR Temperature - - Respiratory Rate 16 07/17/2019 12:50 PM CERTIFIED CREDIT COUNSELOR Oxygen Saturation - - Inhaled Oxygen Concentration - - Weight 67.1 kg (147 lb 14.4 oz) 07/17/2019 12:50 PM CERTIFIED CREDIT COUNSELOR Height 162.6 cm (5' 4") 07/17/2019 12:50 PM CERTIFIED CREDIT COUNSELOR Body Mass Index 25.39 07/17/2019 12:50 PM CERTIFIED CREDIT COUNSELOR documented in this encounter Patient Instructions Patient InstructionsPatria Townsend - 07/17/2019 1:40 PM CSTTalk to pharmacy about tetanus and shingles vaccine. IFIED CREDIT COUNSELOR documented in this encounter Progress Notes Vanesa [...] FREE T4, FREE T3, COMP. METABOLIC PANEL (02808) Diabetic polyneuropathy associated with type 2 diabetes [...] 2019, 3:04 PM Physician's Attestation I, Vanesa Rigsg MD, personally performed the services described in this documentation , asscribed by, Patria Townsend in my presence and it is both accurate and complete. Vanesa Riggs MD July 22, 2019, 5:59 PM IFIED CREDIT COUNSELOR documented in this encounter Plan of Treatment [...] of this encounter Implants Implanted Type Area Barmaid Device Shelf Model / Serial Identifier Expiration / Lot Date Log [id number] - Tray, Eddie Lens (Virtual) - 1 - Sn60wf 19.0d, Eddie Lens LENS Left: Eye Eddie 12/28/2015 SN60WF 19.0D / Implanted: Qty: 1 on 06/29/2011 at [facility] [id number] / documented as of this encounter Procedures Procedure Name Priority Date/Time Associated Diagnosis Comme nts FREE T3 Routine 07/17/2019 4:53 Uncontrolled type 2 Resu lts for this PM CERTIFIED CREDIT COUNSELOR diabetes mellitus procedure are in without the results complication, with section. long-term current use of insulin GLYCOSYLATED Routine 07/17/2019 4:53 Uncontrolled type 2 Resu lts for this HEMOGLOBIN (A1C) PM CERTIFIED CREDIT COUNSELOR diabetes mellitus proced ure are in without the results complication, with section. long-term current use of insulin COMP. METABOLIC PANEL Routine 07/17/2019 4:53 Uncontrolled ty pe 2 Results for this (97549) PM CERTIFIED CREDIT COUNSELOR diabetes mellitus procedure are in without the results complication, with section. long-term current use of insulin MICROALBUMIN URINE Routine 07/17/2019 4:53 Uncontrolled type 2 Results for this PM CERTIFIED CREDIT COUNSELOR diabetes mellitus procedure are in without the results complication, with section. long-term current use of insulin THYROID STIMULATING Routine 07/17/2019 4:53 Uncontrolled type 2 Results for this HORMONE PM CERTIFIED CREDIT COUNSELOR diabetes mellitus procedure are in without the results complication, with section. long-term current use of insulin FREE T4 Routine 07/17/2019 4:53 Uncontrolled type 2 Resu lts for this PM CERTIFIED CREDIT COUNSELOR diabetes mellitus procedure are in without the results complication, with section. long-term current use of insulin documented in this encounter Results COMP. METABOLIC PANEL (07602) (07/17/2019 4:53 PM CERTIFIED CREDIT COUNSELOR) Pathologist Sig nature NA 137 135 - 145 [facility] mmol/L [facility] K 4.9 3.5 - 5.0 [facility] mmol/L [facility] CL 98 98 - 108 mmol/L [facility] CO2 TOTAL 31 23 - 31 mmol/L [facility] AGAP 8 2 - 16 [facility] BUN 21 7 - 23 mg/dL [facility] GLUCOSE 320 (H) 70 - 110 mg/dL [facility] CREATININE 0.73 0.50 - 1.04 [facility] mg/dL [facility] TOTAL BILI 1.0 0.1 - 1.1 mg/dL [facility] CALCIUM 10.1 8.6 - 10.6 [facility] mg/dL [facility] T PROTEIN 8.2 6.3 - 8.2 g/dL [facility] ALBUMIN 4.4 3.5 - 5.0 g/dL [facility] ALK PHOS 130 (H) 34 - 122 U/L [facility] ALTv 21 5 - 35 U/L [facility] AST(SGOT) 21 13 - 40 U/L [facility] eGFR Calculation 78.4 mL/min/1.73m2 [facility] [place]) eGFR Calculation 95.0 mL/min/1.73m2 [facility] () [facility] Specimen Blood Narrative Performed At Association of Glomerular Filtration Rate (GFR) [facility] and Staging of Kidney Disease* [...] abnormalities in imaging tests). Performing Organization Address [facility] Phone Number [facility] [id number], [address] [place] [address] FREE T3 (07/17/2019 4:53 PM CERTIFIED CREDIT COUNSELOR) Pathologist Sig nature FREE T3 3.02 2.77 - 5.27 pg/mL [facility] Specimen Blood Performing Organization Address [facility] Phone Number [facility]: [id number], [address] [place] [address] FREE T4 (07/17/2019 4:53 PM CERTIFIED CREDIT COUNSELOR) Pathologist Sig nature FREE T4 1.22 0.78 - 2.20 ng/dL [facility] Specimen Blood Performing Organization Address [facility] Phone Number [facility]: [id number], [address] [place] [address] THYROID STIMULATING HORMONE (07/17/2019 4:53 PM CERTIFIED CREDIT COUNSELOR) Pathologist Sig nature TSH 1.96 0.45 - 4.70 mIU/L [facility] Specimen Blood Performing Organization Address [facility] Phone Number [facility]: [id number], [address] [place] [address] MICROALBUMIN URINE (07/17/2019 4:53 PM CERTIFIED CREDIT COUNSELOR) Pathologist Sig nature CREAT U 87.4 mg/dL [facility] SERVICES MICROALB U 15 0 - 45 ug/mL [facility] SERVICES MICROAL/CR 17 0 - 30 mg/g of [facility] creatinine SERVICES Specimen Urine Narrative Performed At Normal: <30 mg/g creatinine [facility] SERVICES Microalbuminuria: 30 - 299 mg/g creatini ne Clinical albuminuria: > 300 mg/g creatinine Performing Organization Address City/State/Zipcode Phone Number [facility] SERVICES CLIA: [id number], [address] [place], [place] [address] [facility] GLYCOSYLATED HEMOGLOBIN (A1C) (07/17/2019 4:53 PM CERTIFIED CREDIT COUNSELOR) Pathologist Sig nature HGB A1C 11.3 (H) 4.0 - 6.0 % NGSP [facility] L LABORATORY Specimen Blood Narrative Performed At %A1C (NGSP) Interpretation (ADA) [facility] 4.8-5.6 Normal or (Non-Diabetic Ra nge) 5.7-6.4 Increased Risk (Pre-Diabet ic) >6.5 Diabetes Indicated Performing Organization Address City/[facility] Phone Number [facility] CLIA: [id number], [address] [place], [place] [address] XR FOOT 3+ VW RIGHT (07/17/2019 4:24 PM CERTIFIED CREDIT COUNSELOR) Specimen Narrative Performed At HISTORY: Worsening right [...] disloc ation in right foot. Procedure Note [facility], Radiant Results Inft User - 2019 4:31 PM CERTIFIED CREDIT COUNSELOR HISTORY: Worsening right foot pain. FINDINGS: AP, [...] Effective Phone Address T ype Group Dates [facility] [id number] 2017-Pres Medica re HEALTHCARE - HEALTHCARE ent Adv HM O MANAGED DUAL COMPLETE MEDICARE HMO 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
--- OUTSIDE RECORDS SUMMARY | 2019-10-30 10:16 | XMS REPORT | Summary of Care ---
:1945 Author Organization [facility] - Health Address [address] [place] [address] Care Team Providers Name Role Phone Vanesa Riggs MD Primary Care Provider [phone] Beni Cuenca MD Unavailable Reason for Visit Reason Comments Refill Request Encounter Details Date Type Department Care Team Description 06/19/[address] [facility] Pediatric and Mariela Riggs, Refill Request Adult Primary Care- MD Wiggins [address] [place] [address], [address] [place] [address] [place] [address] [phone] Allergies No Known Allergiesdocumented as of this encounter (statuses as of 07/25/2019) Medications Medication Sig Dispensed Refills Start Date [...] ve 70-hypromellose both eyes once (ARTIFICIAL now. TEARS,[id number],) 0.1-0.3 % documented as of this encounter (statuses as of 07/25/2019) Active Problems Problem Noted Date Hypotension 11/21/2018 [...] as of this encounter (statuses as of 07/25/2019) Immunizations Name Administration Dates Next Due Influenza [...] of this encounter Implants Implanted Type Area Operator Electronic Warfare Device Shelf Model / Serial Identifier Expiration / Lot Date Log [id number] - Joel, Eddie Lens (Virtual) - 1 - Sn60wf 19.0d, Eddie Lens LENS Left: Eye Eddie 12/28/2015 SN60WF 19.0D / Implanted: Qty: 1 on 06/29/2011 at [facility] [id number] / documented as of this encounter Results Not on filedocumented in this encounter Visit Diagnoses Diagnosis Numbness Disturbance of skin sensation documented in this encounter Insurance Payer Benefit Plan / Subscriber ID Effective Phone Address T e Group [facility] [id number] 2017-Pres Medica re HEALTHCARE - HEALTHCARE ent Adv HM O MANAGED DUAL COMPLETE MEDICARE HMO [place] MEDICAID OF xxxxxxxxx 2019-Pres [phone] [address] Medi caid [place] ent [phone] [place] [address] documented as of this encounter Advance Directives Type Date Recorded Patient Oral And Maxillofacial Surgery Resident Explanati on Advance Directives and Living Will Power of Special Events Manager
--- OUTSIDE RECORDS SUMMARY | 2019-10-30 10:17 | XMS REPORT | Summary of Care ---
:1945 Author Organization [facility] - [facility] Address [address] [place] [address] Care Team Providers Name Role Phone Vanesa Riggs MD Primary Care Provider [phone] Beni Cuenca MD Unavailable Reason for Visit Reason Comments Results Encounter Details Date Type Department Care Team Description 08/04/2019 Telephone [facility] Pediatric and Mariela Riggs, Results Adult Primary Care- MD Wiggins [address] [place] [address], [address] [place] [address] [place] [address] [phone] Allergies No Known Allergiesdocumented as of this encounter (statuses as of 08/04/2019) Medications Medication Sig Dispensed Refills Start Date [...] of insulin blood sugar diagnostic Check blood [address] 11/21/2017 Active stripIndications: sugar twice a Uncontrolled type 2 day. E11.9 diabetes mellitus without complication, with long-term current use of insulin dextran Place 1 Drop in 0 Acti ve 70-hypromellose both eyes once (ARTIFICIAL now. TEARS,[id number],) 0.1-0.3 % nortriptyline 25 mg Take 1 [...] day as needed foot pain for pain documented as of this encounter (statuses as of 08/04/2019) Active Problems Problem Noted Date Hypotension 11/21/2018 [...] as of this encounter (statuses as of 08/04/2019) Immunizations Name Administration Dates Next Due Influenza [...] of this encounter Implants Implanted Type Area Geodesy Teacher Device Shelf Model / Serial Identifier Expiration / Lot Date Log [id number] - David Maldonadoon Lens (Virtual) - 1 - Sn60wf 19.0d, Eddie Lens LENS Left: Eye Eddie 12/28/2015 SN60WF 19.0D / Implanted: Qty: 1 on 06/29/2011 at [facility] [id number] / documented as of this encounter Results Not on filedocumented in this encounter Insurance Payer Benefit Plan / Subscriber ID Effective Phone Address T e Group Dates [facility] [id number] 2017-Pres Medica re HEALTHCARE - HEALTHCARE ent Adv HM O MANAGED DUAL COMPLETE MEDICARE HMO [facility] MEDICAID OF xxxxxxxxx 2019-Pres [phone] [address] Medi caid [place] ent [phone] [place] [address] documented as of this encounter Advance Directives Type Date Recorded Patient Director Style Explanati on Advance Directives and Living Will Power of Buttermaker Helper
--- OUTSIDE RECORDS SUMMARY | 2019-10-30 10:17 | XMS REPORT | Summary of Care ---
:1945 Author Organization [facility] Address [address] [place] [address] Care Team Providers Name Role Phone Vanesa Riggs MD Primary Care Provider [phone] Beni Cuenca MD Unavailable Reason for Referral (Routine) Status Reason Specialty Diagnoses / Referred By Referred To Procedures Contact Contact New Request Location Orthopedic Diagnoses Right foot pain Gege Riggs Surgery Procedures CONSULT/REFERRAL PODIATRY Vanesa Soriano MD [address] [place] [address] Reason for Visit Reason Comments Orders Encounter Details Date Type Department Care Team Description 08/04/2019 Case Management [facility] Pediatric Leann Riggs Orders and Adult Primary Care- MD [place] [address] [address] [place] [address] [place] [address] [phone] Allergies No Known Allergiesdocumented as of this [...] ve 70-hypromellose both eyes once (ARTIFICIAL now. TEARS,[id number],) 0.1-0.3 % nortriptyline 25 mg Take 1 [...] of this encounter Implants Implanted Type Area Digital Campaign Specialist Device Shelf Model / Serial Identifier Expiration / Lot Date Log [id number] - Tray, Eddie Lens (Virtual) - 1 - Sn60wf 19.0d, Eddie Lens LENS Left: Eye Eddie 12/28/2015 SN60WF 19.0D / Implanted: Qty: 1 on 06/29/2011 at [facility] [id number] / documented as of this encounter Results Not on filedocumented in this encounter Visit Diagnoses Diagnosis Right foot pain - Primary Pain in limb documented in this encounter Insurance Payer Benefit Plan / Subscriber ID Effective Phone Address T ype Group Dates [facility] [id number] 2017-Pres Medica re HEALTHCARE - HEALTHCARE ent Adv HM O MANAGED DUAL COMPLETE MEDICARE HMO [facility] MEDICAID OF xxxxxxxxx 2019-Pres [phone] [address] Medi caid [place] ent [phone] [place] [address] documented as of this encounter Advance Directives Type Date Recorded 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
--- OUTSIDE RECORDS SUMMARY | 2019-10-30 10:18 | XMS REPORT | Summary of Care ---
:1945 Author Organization [facility] Address [address] [place] [address] Care Team Providers Name Role Phone Vanesa Riggs MD Primary Care Provider [phone] Beni Cuenca MD Unavailable Reason for Referral (Routine) Status Reason Specialty Diagnoses / Referred By Referred To Procedures Contact Contact New Request Obstetrics & Diagnoses Genital lesion, female Vaginal discharge Zoey Farrar, Gynecology Procedures CONSULT/REFERRAL PRIMER WATERPROOFING MACHINE OPERATOR LOAD OUT SUPERVISOR [facility] [address] [address] Reason for Visit Reason Comments Vaginal Problem Encounter Details Date Type Department Care Team Description 08/05/2019 Office Visit [facility] Family Adelso Farrar LOAD OUT SUPERVISOR Genital lesion, female (Primary Dx); Medicine - [place] [address] [address] [facility] Dysuria; [facility] Vaginal discharge; [place] [address] Screening examination for STD (sexually transmitted disease) [address] [place], [place] [phone] [address] Allergies No Known Allergiesdocumented as of this encounter (statuses as of 08/05/2019) Medications Medication Sig Dispensed Refills Start Date [...] ve 70-hypromellose both eyes once (ARTIFICIAL now. TEARS,[id number],) 0.1-0.3 % nortriptyline 25 mg Take 1 [...] day as needed foot pain for pain valACYclovir Take 1 tablet by 20 tablet 0 08/05/2019 0 Active (VALTREX) 1 gram mouth 2 (two) tabletIndications: times daily for Genital lesion, 10 days. female metroNIDAZOLE Take 1 tablet by 30 tablet 0 08/05/2019 08/15/19 20 Active (FLAGYL) 500 mg mouth every 8 tabletIndications: (eight) hours Vaginal discharge for 10 days. documented as of this encounter (statuses as of 08/05/2019) Active Problems Problem Noted Date Hypotension 11/21/2018 [...] as of this encounter (statuses as of 08/05/2019) Immunizations Name Administration Dates Next Due Influenza [...] Sign Reading Time Taken Comments Blood Pressure 148/88 08/05/2019 4:01 PM PHARMACEUTICAL OFFICER Pulse 80 08/05/2019 4:01 PM PHARMACEUTICAL OFFICER Temperature - - Respiratory Rate - - Oxygen Saturation 97% 08/05/2019 4:01 PM PHARMACEUTICAL OFFICER Inhaled Oxygen Concentration - - Weight 66.6 kg (146 lb 12.8 oz) 08/05/2019 4:01 PM PHARMACEUTICAL OFFICER Height - - Body Mass Index 25.2 07/17/2019 12:50 PM PHARMACEUTICAL OFFICER documented in this encounter Patient Instructions Patient InstructionsZoey Farrar FNP - 08/05/2019 3:00 PM PHARMACEUTICAL OFFICER Vaginal Infection: Bacterial Vaginosis Both good and bad bacteria are present in a healthy vagina. Bacterial vaginosis (BV) occurs when these bacteria get out of balance. The numbers of good bacteria decrease. This allows the numbers of badbacteria to increase and cause BV. In most cases, BV is not a serious problem. Causes of bacterial vaginosis The cause of BV is not clear. Douching may lead to it. Having sex with a new partner or more [id number] makes it more likely. Symptoms of bacterial vaginosis Symptoms of BV vary for each woman. Some women have few symptoms or none at all. If symptoms are present, they can include: Thin, milky white or salcedo or sometimes green discharge Unpleasant fishy odor Irritation, itching, and burning at opening of vagina which may indicate mixed vaginitis Burning or irritation with sex or urination which may indicate mixed vaginitis Diagnosing bacterial vaginosis Your healthcare provider will ask about your symptoms and health history. He or she will also do a pelvic exam. This is an exam of your vagina and cervix. A sample of vaginal fluid or discharge may be taken. This sample is checked for signs of BV. Treating bacterial vaginosis BV is often treated with antibiotics. They may be given in oral pill form or as a vaginal cream. To use these medicines: Be sure to take all of your medicine, even if your symptoms go away. If youre taking antibiotic pills, do not drink alcohol until youre finished with all of your medicine. If youre using vaginal cream, apply it as directed. Be aware that the cream may make condoms and diaphragms less effective. Call your healthcare provider if symptoms do not go away within 4 days of starting treatment. Also call if you have a reaction to the medicine. Why treatment matters Even if you have no symptoms or your symptoms are mild, BV should be treated. Untreated BV can lead to health problems such as: Increased risk of delivery if youre Increased risk of complications after surgery on the reproductive organs Possible increased risk of pelvic inflammatory disease (PID) [employer] last reviewed this educational content on 08/16/201619998060-6476 The [employer]. [address] [place] [address], [place] [address]. All rights reserved. This information is not intended as a substitute for professional medical care. Always follow your healthcare professional's instructions. MACEUTICAL OFFICER documented in this encounter Progress Notes Zoey Farrar FNP - 08/05/2019 3:00 PM CST Cc: Chief Complaint Patient presents with Vaginal Problem Maria Isabel Stacy is a 73 year old female. Patient. Is hong konger speaking, american sign language interpreter was used via [phone]. She has copious amounts of vaginal discharge, blisters in her vaginal area that have erupted and are extremely painful, burning when she urinates. She states her late several years before he dies had some form of STD that was treated, unsure what type. She has taken to OTC fungus cream with no relief. She has a new partner in the past year who she is not sure of his STD status. Vaginal Discharge The patient's primary symptoms include genital itching, genital lesions, vaginal discharge and vaginal pain. This is a new problem. The current episode started 1 to 4 weeks ago. The problem occurs constantly. The problem has been gradually worsening. The pain is severe. The problem affects both sides.She is not . She wears cotton underwear. Associated symptoms include dysuria. Pertinent negatives include no chills or fever. The vaginal discharge was thick and yellow. The vaginal bleeding isnone. Nothing aggravates the symptoms. She has tried nothing for the symptoms. Her past medical history is significant for vaginosis. Patient reports new partner. Allergies Maria Isabel has No Known Allergies. Medications Outpatient Medications Prior to Visit Medication Sig Dispense Refill Diclofenac Sodium (VOLTAREN) 1 % gel Take 2-4 grams three times a day as needed for pain 100 g 3 gabapentin 300 mg capsule Take 1 capsule by mouth 3 (three) times daily. 270 capsule 3 glipiZIDE 10 mg tablet Take 1 tablet by mouth 2 (two) times daily before breakfast and dinner. 180 tablet 3 metFORMIN 1,000 mg tablet Take 1 tablet by mouth 2 (two) times daily with meals. 180 tablet 3 nortriptyline 25 mg capsule Take 1 capsule by mouth at bedtime. Every night for pain in legs. 90capsule 3 dextran 70-hypromellose (ARTIFICIAL TEARS,[id number],) 0.1-0.3 % Place 1 Drop in both eyes once now. blood sugar diagnostic strip Check blood sugar [...] Medical History: Diagnosis Date Benign essential HTN 1996 Cataracts, bilateral 2009 left worse than right Diabetes mellitus 2006 Diabetic neuropathy Right wrist fracture 2008 work injury Shoulder fracture, right 2008 work injury Past Surgical History: Procedure Laterality Date COLONOSCOPY ESOPHAGOGASTRODUODENOSCOPY N/A 11/22/2018 Surgeon: La Nena Rivas MD; Location: [facility] OR [facility] PHACOEMULSIFICATION OF CATARACT WITH INTRAOCULAR LENS IMPLANT 06/29/2011 Surgeon:TAWANDA SCHMID; Location:[facility] OR LOCATION [place] OPEN TREATMENT RADIAL SHAFT FRACTURE 2007 CO UPPER ARM/ELBOW SURGERY UNLISTED Right SHOULDER ARTHROPLASTY [...] file Gets together: Not on file Attends pentecostalism service: Not on file Active member of [...] sisters Diabetes Brother Review of Systems Constitutional: Negative. Negative for chills and fever. Respiratory: Negative. Negative for apnea, cough, choking, chest tightness, shortness of breath andwheezing. Cardiovascular: Negative. Negative for chest pain, palpitations and leg swelling. Gastrointestinal: Negative. Genitourinary: Positive for dysuria, vaginal discharge, genital sores and vaginal pain. Skin: Negative. Neurological: Negative. Endocrine: Endocrine negative Vital Signs There were no vitals taken for this visit. Physical Exam Constitutional: She is oriented to person, place, and time. She appears well- developed and well-nourished. HENT: Head: Normocephalic. Right Ear: External ear normal. Left Ear: External ear normal. Nose: Nose normal. Neck: Normal range of motion. Neck supple. Cardiovascular: Normal rate, regular rhythm, normal heart sounds and intact distal pulses. Exam reveals no gallop and no friction rub. No murmur heard. Pulmonary/Chest: Effort normal and breath sounds normal. No respiratory distress. She has no wheezes. She has no rales. She exhibits no tenderness. Abdominal: Soft. Bowel sounds are normal. She exhibits no distension. There is no tenderness. Genitourinary: Pelvic exam was performed with patient supine. There is tenderness and lesion on the right labia. There is tenderness and lesion on the left labia. There is erythema and tenderness in the vagina. Vaginal discharge found. Genitourinary Comments: Noreen Farley MA in room entire time of the exam Lymphadenopathy: Inguinal adenopathy noted on the right and left side. Right: Inguinal adenopathy present. Left: Inguinal adenopathy present. Neurological: She is alert and oriented to person, place, and time. Skin: Skin is warm and dry. Capillary refill takes less than 2 seconds. No rash noted. No erythema. No pallor. Psychiatric: She has a normal mood and affect. Nursing note and vitals reviewed. Assessment/Plan 1. Vaginal discharge: BV and fungus swab collected, further interventions to follow depending on results- but flagyl given to treat empirically due to severity of symptoms. Symptoms may also be fungus,as she is diabetic and more prone to kulwant, but would hold off until after lab results since OTC fungal cream did not help. 2. Dysuria and STD screen : most likely due to sores along the vaginal region than acute UTI, but will get UA, and culture to r/o UTI. She was unable to give specimen today, will come back in AM. GC/ Chlamydia and Trich also added to lab to r/o those out due to STD exposure and presentation. 3. Genital (vesicular) lesions: Most consistent with herpes- herpes swam HSV 1&2 VZV PCR ordered. Will treat empirically for now due to severity of symptoms, thus valtrex started. Referral amide to ENVIRONMENTAL PROTECTION FORESTER as well. Clinical references for home care instructions reviewed and copy given especially wearing cotton under wear, proper hygiene and also: Patient counseled on the STDs and its implications for patient and any untreated partners. Pt. wasstrongly encouraged to notify any sexual partners of any diagnosis and the importance that they receive treatment. The local health department to be notified of any diagnosis so appropriate f/u can be initiated. Patient was counseled to abstain from sexual intercourse until a lab results show negative. Safe sex with barrier protection was stressed once sexual activity has resumed. 4. Hypertension, benign: Elevated blood pressures: most likely due to pain. Continue to monitor : Watch blood pressure: check at least twice weekly at drug store is no cuff at home. Low salt Low caffeine diet Low alcohol Avoid tobacco products. Heart Healthy Exercise: total of 150 minutes of cardio: walking,swimming, hiking, biking every week. Heart healthy diet: low fat/carb/sugar diet; increase lean meat-chicken, turkey, fish; increase vegetables/fruits ( still be careful because elevated sugar level) ER--> worsening condition; cp, shortness of breath, dizziness, syncope, palpitations, n/v, diaphoresis. Plan of care, desired health behaviors, goals, and medication discussed with patient. Education resources provided and reviewed with AVS. Patient/guardian/family verbalized understanding & agrees to plan of care. This visit did not involve counseling and coordination that comprised more than 50% of the visit time. If applicable, the [facility] database was accessed to review any controlled substance prescription claims data. The [employer] prescription claims data in [employer] (ML4D) was reviewed to assess patient compliance with the medication treatment plan. MACEUTICAL OFFICER documented in this encounter Plan of Treatment Date Type Specialty Care Team Description 08/20/2019 Office Visit Family Medicine Dar Encarnacion MD [address] [place] [address] Dr Peña [address] [place], [place] [address] 15 [phone] Name Type Priority Associated Diagnoses Date/Ti me GALV ONLY - VAGINAL LAB Routine Vaginal discharge 4:16 PM PHARMACEUTICAL OFFICER PATHOGENS BY DNA PROBE FUNGUS (ROUTINE) CULTURE LAB Routine Vaginal discharg e 08/05/2019 4:16 PM PHARMACEUTICAL OFFICER HSV 1&2, VZV BY PCR LAB Routine Genital lesion, femal e 08/05/2019 4:16 PM PHARMACEUTICAL OFFICER Name Type Priority Associated Diagnoses Order S chedule GALV ONLY - VAGINAL LAB Routine Vaginal discharge Exp ected: 08/05/2019, PATHOGENS BY DNA PROBE Expir es: 08/05/2020 FUNGUS (ROUTINE) CULTURE LAB Routine Vaginal discharg e Expected: 08/05/2019, Expires: 2020 HSV 1&2, VZV BY PCR LAB Routine Genital lesion, femal e Expected: 08/05/2019, Expires: 2020 GC & CHLAMYDIA AMPLIFIED LAB Routine Dysuria Expected: 08/05/2019, ASSAY Screening examination for Ex heladio: 08/05/2020 STD (sexually transmitted disease) TRICHOMONAS AMPLIFIED LAB Routine Dysuria Expected: 08/05/2019, ASSAY Screening examination for Ex heladio: 08/05/2020 STD (sexually transmitted disease) URINALYSIS LAB Routine Dysuria Expected: 08/05/2019, Screening examination for Ex heladio: 08/05/2020 STD (sexually transmitted disease) URINE CULTURE LAB Routine Dysuria Expected: 08/05/2019, Screening examination for Ex heladio: 08/05/2020 STD (sexually transmitted disease) Health Maintenance Due Date Last Done Comments [...] of this encounter Implants Implanted Type Area Auriculotherapist Device Shelf Model / Serial Identifier Expiration / Lot Date Log [id number] - Tray, Eddie Lens (Virtual) - 1 - Sn60wf 19.0d, Eddie Lens LENS Left: Eye Eddie 12/28/2015 SN60WF 19.0D / Implanted: Qty: 1 on 06/29/2011 at [facility] [id number] / documented as of this encounter Results Not on filedocumented in this encounter Visit Diagnoses Diagnosis Genital lesion, female - Primary Other specified disorders of female arcenio duke organs Dysuria Vaginal discharge Leukorrhea, not specified as infective Screening examination for STD (sexually transmitted disease) Screening examination for venereal disea se documented in this encounter Insurance Payer Benefit Plan / Subscriber ID Effective Phone Address T ype Group Dates [facility] [id number] 2017-Pres Medica re HEALTHCARE - HEALTHCARE ent Adv HM O MANAGED DUAL COMPLETE MEDICARE HMO TMHP MEDICAID OF xxxxxxxxx 2019-Pres [phone] [address] [facility] ent [id number] [place] [address] documented as of this encounter Advance Directives Type Date Recorded Patient Gettering Filament Machine Operator Explanati on Advance Directives and Living Will Power of Social Media Analyst
--- OUTSIDE RECORDS SUMMARY | 2019-10-30 10:18 | XMS REPORT | Summary of Care ---
:1945 Author Organization [facility] Address [address] [place] [address] Care Team Providers Name Role Phone Vanesa Riggs MD Primary Care Provider [phone] Beni Cuenca MD Unavailable Reason for Visit Reason Comments LAB WORK Encounter Details Date Type Department Care Team Description 08/06/2019 Cartridge Loading Operator Visit [facility] Family Eyad Farrar, ASTHMA EDUCATOR [address] [address] Dysuria; Medicine - [facility], Adc Fam Pob I Screening examination for STD (sexually transmitted disease) [address] [place] [address] Allergies No Known Allergiesdocumented as of this encounter (statuses as of 08/06/2019) Medications Medication Sig Dispensed Refills Start Date [...] ve 70-hypromellose both eyes once (ARTIFICIAL now. TEARS,[id number],) 0.1-0.3 % nortriptyline 25 mg Take 1 [...] as of this encounter (statuses as of 08/06/2019) Active Problems Problem Noted Date Hypotension 11/21/2018 [...] as of this encounter (statuses as of 08/06/2019) Immunizations Name Administration Dates Next Due Influenza [...] Treatment Date Type Specialty Care Team Description 08/07/2019 Cartridge Loading Operator Visit Family Medicine Zoey Farrar, RUSSELL [address] [address] Lab, [facility] [facility] I 08/20/2019 Office Visit Family Medicine Dar Encarnacion MD [address] [place] [address] Dr [facility] [address] [place], [place] [address] Health Maintenance Due Date Last Done Comments [...] of this encounter Implants Implanted Type Area Freelance Graphic Designer Device Shelf Model / Serial Identifier Expiration / Lot Date Log [id number] - Tray, Dedie Lens (Virtual) - 1 - Sn60wf 19.0d, Eddie Lens LENS Left: Eye Eddie 12/28/2015 SN60WF 19.0D / Implanted: Qty: 1 on 06/29/2011 at [facility] [id number] / documented as of this encounter Results Not on filedocumented in this encounter Visit Diagnoses Diagnosis Dysuria Screening examination for STD (sexually transmitted disease) Screening examination for venereal disea se documented in this encounter Insurance Payer Benefit Plan / Subscriber ID Effective Phone Address T ype Group [facility] [id number] 2017-Pres Medica re HEALTHCARE - HEALTHCARE ent Adv HM O MANAGED DUAL COMPLETE MEDICARE HMO TMHP MEDICAID OF xxxxxxxxx 2019-Pres [phone] [address] Medi caid [place] ent [id number] [place] [address] documented as of this encounter Advance Directives Type Date Recorded Patient Low Altitude Air Defense Officer Explanati on Advance Directives and Living Will Power of Salt Washer
--- OUTSIDE RECORDS SUMMARY | 2019-10-30 10:18 | XMS REPORT | Summary of Care ---
:1945 Author Organization [facility] Address [address] [place] [address] Care Team Providers Name Role Phone Vanesa Riggs MD Primary Care Provider [phone] Beni Cuenca MD Unavailable Reason for Referral (Routine) Status Reason Specialty Diagnoses / Referred By Referred To Procedures Contact Contact New Request Obstetrics & Diagnoses Genital lesion, female Vaginal discharge Zoey Farrar, Gynecology Procedures CONSULT/REFERRAL FRUIT RECEIVER MOLDER WAX BALL [facility] [address] [address] Reason for Visit Reason Comments Vaginal Problem Encounter Details Date Type Department Care Team Description 08/05/2019 Office Visit [facility] Family Adelso Farrar MOLDER WAX BALL Genital lesion, female (Primary Dx); Medicine - [place] [address] [address] [facility] Dysuria; [facility] Vaginal discharge; [place] [address] Screening examination for STD (sexually transmitted disease) [address] [place], [place] [phone] [address] Allergies No Known Allergiesdocumented as of [...] ve 70-hypromellose both eyes once (ARTIFICIAL now. TEARS,[id number],) 0.1-0.3 % nortriptyline 25 mg Take 1 [...] Comments Blood Pressure 148/88 08/05/2019 4:01 PM EXPORT FREIGHT SPECIALIST Pulse 80 08/05/2019 4:01 PM EXPORT FREIGHT SPECIALIST Temperature - - Respiratory Rate - - Oxygen Saturation 97% 08/05/2019 4:01 PM EXPORT FREIGHT SPECIALIST Inhaled Oxygen Concentration - - Weight 66.6 kg (146 lb 12.8 oz) 08/05/2019 4:01 PM EXPORT FREIGHT SPECIALIST Height - - Body Mass Index 25.2 07/17/2019 12:50 PM EXPORT FREIGHT SPECIALIST documented in this encounter Patient Instructions Patient InstructionsZoey Farrar FNP - 08/05/2019 3:00 PM EXPORT FREIGHT SPECIALIST Vaginal Infection: Bacterial Vaginosis Both good and [...] sex with a new partner or more [id number] makes it more likely. Symptoms of bacterial [...] increased risk of pelvic inflammatory disease (PID) [employer] last reviewed this educational content on 08/16/201619995087-3807 [employer]. [address] [place] [address], [place] [address]. All rights reserved. This information is not intended as a substitute for professional medical care. Always follow your healthcare professional's instructions. RT FREIGHT SPECIALIST documented in this encounter Progress Notes Zoey Farrar FNP - 08/05/2019 3:00 PM CST Cc: Chief Complaint Patient presents with Vaginal Problem Maria Isabel Stacy is a 73 year old female. Patient. Is kosovan speaking, branch coordinator was used via [phone]. She has copious amounts of vaginal discharge, [...] in legs. 90capsule 3 dextran 70-hypromellose (ARTIFICIAL TEARS,[id number],) 0.1-0.3 % Place 1 Drop in both [...] 11/22/2018 Surgeon: La Nena Rivas MD; Location: [facility] PHACOEMULSIFICATION OF CATARACT WITH INTRAOCULAR LENS IMPLANT 06/29/2011 Surgeon:TAWANDA SCHMID; Location:[facility] OR LOCATION [place] OPEN TREATMENT RADIAL SHAFT FRACTURE 2007 [place] UPPER ARM/ELBOW SURGERY UNLISTED Right SHOULDER ARTHROPLASTY [...] file Gets together: Not on file Attends methodist service: Not on file Active member of [...] symptoms, thus valtrex started. Referral amide to STAPLING MACHINE OPERATOR as well. Clinical references for home care [...] of the visit time. If applicable, the [facility] database was accessed to review any controlled substance prescription claims data. The [employer] prescription claims data in [employer] was reviewed to assess patient compliance with the medication treatment plan. RT FREIGHT SPECIALIST documented in this encounter Plan of Treatment Date Type Specialty Care Team Description 08/20/2019 Office Visit Family Medicine Dar Encarnacion MD [address] [place] [address] Dr Peña [address] [place], [place] [address] 15 [phone] Name Type Priority Associated Diagnoses Date/Ti me GALV ONLY - VAGINAL LAB Routine Vaginal discharge 4:16 PM EXPORT FREIGHT SPECIALIST PATHOGENS BY DNA PROBE FUNGUS (ROUTINE) CULTURE LAB Routine Vaginal discharg e 08/05/2019 4:16 PM EXPORT FREIGHT SPECIALIST HSV 1&2, VZV BY PCR LAB Routine Genital lesion, femal e 08/05/2019 4:16 PM EXPORT FREIGHT SPECIALIST Name Type Priority Associated Diagnoses Order S [...] of this encounter Implants Implanted Type Area Director Of Integrated Marketing Device Shelf Model / Serial Identifier Expiration / Lot Date Log [id number] - Tray, Eddie Lens (Virtual) - 1 - Sn60wf 19.0d, Eddie Lens LENS Left: Eye Eddie 12/28/2015 SN60WF 19.0D / Implanted: Qty: 1 on 06/29/2011 at [facility] [id number] / documented as of this encounter Results [...] Effective Phone Address T ype Group Dates [facility] [id number] 2017-Pres Medica re HEALTHCARE - HEALTHCARE ent Adv HM O MANAGED DUAL COMPLETE MEDICARE HMO TMHP MEDICAID OF xxxxxxxxx 2019-Pres [phone] [address] [phone] [place] [address] documented as of this encounter Advance Directives Type Date Recorded Patient Waterproof Material Folder Explanati on Advance Directives and Living Will Power of Rotary Drum Tanner
--- OUTSIDE RECORDS SUMMARY | 2019-10-30 10:18 | XMS REPORT | Summary of Care ---
:1945 Author Organization [facility] Address [address] [place] [address] Care Team Providers Name Role Phone Vanesa Riggs MD Primary Care Provider [phone] Beni Cuenca MD Unavailable Reason for Referral (Routine) Status Reason Specialty Diagnoses / Referred By Referred To Procedures Contact Contact New Request Obstetrics & Diagnoses Genital lesion, female Vaginal discharge Zoey Farrar, Gynecology Procedures CONSULT/REFERRAL MILITARY EQUIPMENT SPECIALIST RICE DRIER OPERATOR [facility] [address] [address] Reason for Visit Reason Comments Vaginal Problem Encounter Details Date Type Department Care Team Description 08/05/2019 Office Visit [facility] Zoey Farrar, Genita l lesion, female (Primary Dx); [facility] RICE DRIER OPERATOR Dysuria; [facility] E[facility] Vaginal di [facility]; Drive Drive Screening examination for STD (sexually transmitted disease); [place] [address] Vulvovaginitis [address] [place], [place] [phone] [address] Allergies No Known Allergiesdocumented as of this encounter (statuses as of 08/07/2019) Medications Medication Sig Dispensed Refills Start Date [...] ve 70-hypromellose both eyes once (ARTIFICIAL now. TEARS,[id number],) 0.1-0.3 % nortriptyline 25 mg Take 1 [...] (eight) hours Vaginal discharge for 10 days. fluconazole 200 mg Take 1 tablet by 2 tablet 0 08/07/2019 Active tabletIndications: mouth every 72 Vulvovaginitis (seventy-two) hours for 6 days. documented as of this encounter (statuses as of 08/07/2019) Active Problems Problem Noted Date Hypotension 11/21/2018 [...] as of this encounter (statuses as of 08/07/2019) Immunizations Name Administration Dates Next Due Influenza [...] Comments Blood Pressure 148/88 08/05/2019 4:01 PM SHOE PACKER Pulse 80 08/05/2019 4:01 PM SHOE PACKER Temperature - - Respiratory Rate - - Oxygen Saturation 97% 08/05/2019 4:01 PM SHOE PACKER Inhaled Oxygen Concentration - - Weight 66.6 kg (146 lb 12.8 oz) 08/05/2019 4:01 PM SHOE PACKER Height - - Body Mass Index 25.2 07/17/2019 12:50 PM SHOE PACKER documented in this encounter Patient Instructions Patient InstructionsZoey Farrar FNP - 08/05/2019 3:00 PM SHOE PACKER Vaginal Infection: Bacterial Vaginosis Both good and [...] sex with a new partner or more [id number] makes it more likely. Symptoms of bacterial [...] increased risk of pelvic inflammatory disease (PID) [employer] last reviewed this educational content on 08/16/201619991878-0033 [employer]. [address] [place] [address], [place] [address]. All rights reserved. This information is not intended as a substitute for professional medical care. Always follow your healthcare professional's instructions. PACKER documented in this encounter Progress Notes Carisa Farrarthia, RICE DRIER OPERATOR - 08/05/2019 3:00 PM CST Cc: Chief Complaint Patient presents with Vaginal Problem Maria Isabel Stacy is a 73 year old female. Patient. Is iraqi speaking, loop tender was used via [phone]. She has copious amounts of vaginal discharge, [...] in legs. 90capsule 3 dextran 70-hypromellose (ARTIFICIAL TEARS,[id number],) 0.1-0.3 % Place 1 Drop in both [...] 11/22/2018 Surgeon: La Nena Rivas MD; Location: [facility] OR Location PHACOEMULSIFICATION OF CATARACT WITH INTRAOCULAR LENS IMPLANT 06/29/2011 Surgeon:TAWANDA SCHMID; Location:[facility] OR LOCATION [place] OPEN TREATMENT RADIAL SHAFT FRACTURE 2007 [place] UPPER ARM/ELBOW SURGERY UNLISTED Right SHOULDER ARTHROPLASTY [...] file Gets together: Not on file Attends latter day service: Not on file Active member of [...] symptoms, thus valtrex started. Referral amide to PAPERBOARD BOX MAKER as well. Clinical references for home care [...] of the visit time. If applicable, the [facility] database was accessed to review any controlled substance prescription claims data. The [employer] prescription claims data in [employer] was reviewed to assess patient compliance with the medication treatment plan. PACKER documented in this encounter Plan of Treatment Date Type Specialty Care Team Description 08/20/2019 Office Visit Family Medicine aDr Encarnacion MD [address] [place] [address] Dr Aguayo [place], [place] [address] [phone] Name Type Priority Associated Diagnoses Date/Ti me FUNGUS (ROUTINE) CULTURE LAB Routine Vaginal discharg e 08/05/2019 4:16 PM SHOE PACKER GC & CHLAMYDIA AMPLIFIED LAB Routine Dysuria 08/06/2019 1:05 PM ASSAY Screening examination SHOE PACKER for STD (sexually transmitted disease) TRICHOMONAS AMPLIFIED LAB Routine Dysuria 08/06/2019 1:05 PM ASSAY Screening examination SHOE PACKER for STD (sexually transmitted disease) URINE CULTURE LAB Routine Dysuria 08/06/2019 1:06 PM Screening examination SHOE PACKER for STD (sexually transmitted disease) Name Type Priority Associated Diagnoses Order S chedule GC & CHLAMYDIA AMPLIFIED LAB Routine Dysuria [...] of this encounter Implants Implanted Type Area Shear Scrapman Device Shelf Model / Serial Identifier Expiration / Lot Date Log [id number] - Tray, Eddie Lens (Virtual) - 1 - Sn60wf 19.0d, Eddie Lens LENS Left: Eye Eddie 12/28/2015 [id number] 19.0D / Implanted: Qty: 1 on 06/29/2011 at [facility] [id number] / documented as of this encounter Procedures Procedure Name Priority Date/Time Associated Diagnosis Comme nts HSV 1&2, VZV BY PCR Routine 08/05/2019 4:16 PM Genital lesion , Results for this SHOE PACKER female procedure are i n the results section. GALV ONLY - VAGINAL Routine 08/05/2019 4:16 PM Vaginal discha rge Results for this PATHOGENS BY DNA SHOE PACKER procedure a re in PROBE the results section. FUNGUS (ROUTINE) Routine 08/05/2019 4:16 PM Vaginal discharge CULTURE SHOE PACKER documented in this encounter Results URINALYSIS (08/06/2019 1:06 PM SHOE PACKER) Pathologist Sig nature APPEARANCE Clear Clear [facility] COLOR Yellow Yellow [facility] PH 6.0 4.8 - 8.0 [facility] SP GRAVITY 1.028 1.003 - 1.030 [facility] GLU U QUAL 500 mg/dL (A) Normal [facility] BLOOD 1+ (A) Negative [facility] KETONES Negative Negative [facility] PROTEIN Negative Negative [facility] UROBILIN Normal Normal [facility] BILIRUBIN Negative Negative [facility] NITRITE Negative Negative [facility] LEUK NELLY 25/uL (A) Negative [facility] RBC/HPF 4 (H) 0 - 3 HPF [facility] WBC/HPF 1 0 - 5 HPF [facility] BACTERIA Few (A) Negative [facility] MUCOUS Slight (A) Negative LPF [facility] SQ EPITH 2 HPF [facility] Specimen Urine - URINE, CLEAN CATCH Performing Organization Address [facility] Phone Number [facility] CLIA: [id number], [address] [place], [place] [address] HSV 1&2, VZV BY PCR (08/05/2019 4:16 PM SHOE PACKER) Pathologist Sig nature Herpes simplex virus Negative Negative [facility] type 1 Nucleic Acid SERVICES Herpes simplex virus Positive (A) Negative [facility] type 2 [facility] SERVICES Varicella zoster Negative Negative [facility] virus Nucleic Acid SERVICES Specimen Swab - VAGINA Performing Organization Address [facility] Phone Number [facility] CLIA: [id number], [address] [place] [address] [facility] GALV ONLY - VAGINAL PATHOGENS BY DNA PROBE (08/05/2019 4:16 PM SHOE PACKER) Pathologist Sig nature Trichomonas vaginalis Negative Negative [facility] Gardnerella vaginalis Negative Negative [facility] Kulwant species Positive (A) Negative [facility] Specimen Fluid - VAGINA Performing Organization Address [facility] Phone Number [facility] CLIA: [id number], [address] [place], [place] [address] [facility] documented in this encounter Visit Diagnoses Diagnosis Genital lesion, female - Primary Other specified disorders of female arcenio duke organs Dysuria Vaginal discharge Leukorrhea, not specified as infective Screening examination for STD (sexually transmitted disease) Screening examination for venereal disea se Vulvovaginitis Vaginitis and vulvovaginitis, unspecifie d documented in this encounter Insurance Payer Benefit Plan / Subscriber ID Effective Phone Address T ype Group Dates [facility] [id number] 2017-Pres Medica re HEALTHCARE - HEALTHCARE ent Adv HM O MANAGED DUAL COMPLETE MEDICARE HMO TMHP MEDICAID OF xxxxxxxxx 2019-Pres [phone] [facility] ent [phone] [place] [address] documented as of this encounter Advance Directives Type Date Recorded Patient Black Leather Buffer Explanati on Advance Directives and Living Will Power of Cartridge Loading Operator
--- OUTSIDE RECORDS SUMMARY | 2019-10-30 10:19 | XMS REPORT | Summary of Care ---
:1945 Author Organization [facility] Address [address] [place] [address] Care Team Providers Name Role Phone Vanesa Riggs MD Primary Care Provider [phone] Beni Cuenca MD Unavailable Reason for Referral (Routine) Status Reason Specialty Diagnoses / Referred By Referred To Procedures Contact Contact New Request Obstetrics & Diagnoses Genital lesion, female Vaginal discharge Zoey Farrar, Gynecology Procedures CONSULT/REFERRAL RELIABILITY TECHNICIAN CHILD LIFE SPECIALIST [facility] [address] [address] Reason for Visit Reason Comments Vaginal Problem Encounter Details Date Type Department Care Team Description 08/05/2019 Office Visit [facility] Zoey Farrar, Genita l lesion, female (Primary Dx); [facility] CHILD LIFE SPECIALIST Dysuria; [facility] E[facility] Hospital [facility] Drive Drive Screening examination for STD (sexually transmitted disease); [place] [address] Vulvovaginitis [address] [place], [place] [phone] [address] Allergies No Known Allergiesdocumented as of [...] ve 70-hypromellose both eyes once (ARTIFICIAL now. TEARS,[id number],) 0.1-0.3 % nortriptyline 25 mg Take 1 [...] Comments Blood Pressure 148/88 08/05/2019 4:01 PM PEANUT SHELLER Pulse 80 08/05/2019 4:01 PM PEANUT SHELLER Temperature - - Respiratory Rate - - Oxygen Saturation 97% 08/05/2019 4:01 PM PEANUT SHELLER Inhaled Oxygen Concentration - - Weight 66.6 kg (146 lb 12.8 oz) 08/05/2019 4:01 PM PEANUT SHELLER Height - - Body Mass Index 25.2 07/17/2019 12:50 PM PEANUT SHELLER documented in this encounter Patient Instructions Patient InstructionsZoey Farrar FNP - 08/05/2019 3:00 PM PEANUT SHELLER Vaginal Infection: Bacterial Vaginosis Both good and [...] sex with a new partner or more [id number] makes it more likely. Symptoms of bacterial [...] increased risk of pelvic inflammatory disease (PID) [employer] last reviewed this educational content on 08/16/201619999237-2621 [employer] [facility]. [address] [place] [address], [place] [address]. All rights reserved. This information is not intended as a substitute for professional medical care. Always follow your healthcare professional's instructions. UT SHELLER documented in this encounter Progress Notes Carisa Farrarthia, CHILD LIFE SPECIALIST - 08/05/2019 3:00 PM CST Cc: Chief Complaint Patient presents with Vaginal Problem Maria Isabel Stacy is a 73 year old female. Patient. Is german speaking, fork assembler was used via [phone]. She has copious amounts of vaginal discharge, [...] in legs. 90capsule 3 dextran 70-hypromellose (ARTIFICIAL TEARS,[id number],) 0.1-0.3 % Place 1 Drop in both [...] 11/22/2018 Surgeon: La Nena Rivas MD; Location: [facility] OR Location PHACOEMULSIFICATION OF CATARACT WITH INTRAOCULAR LENS IMPLANT 06/29/2011 Surgeon:TAWANDA SCHMID; Location:[facility] OR LOCATION ID OPEN TREATMENT RADIAL SHAFT FRACTURE 2007 ID UPPER ARM/ELBOW SURGERY UNLISTED Right SHOULDER ARTHROPLASTY [...] file Gets together: Not on file Attends taoism service: Not on file Active member of [...] symptoms, thus valtrex started. Referral amide to FORM SETTER STEEL PAN FORMS as well. Clinical references for home care [...] of the visit time. If applicable, the [facility] database was accessed to review any controlled substance prescription claims data. The [employer] prescription claims data in [employer] was reviewed to assess patient compliance with the medication treatment plan. UT SHELLER documented in this encounter Plan of Treatment Date Type Specialty Care Team Description 08/20/2019 Office Visit Family Medicine Dar Encarnacion MD [address] [place] [address] Dr Aguayo [place], [place] [address] [phone] Name Type Priority Associated Diagnoses Date/Ti me FUNGUS (ROUTINE) CULTURE LAB Routine Vaginal discharg e 08/05/2019 4:16 PM PEANUT SHELLER GC & CHLAMYDIA AMPLIFIED LAB Routine Dysuria 08/06/2019 1:05 PM ASSAY Screening examination PEANUT SHELLER for STD (sexually transmitted disease) TRICHOMONAS AMPLIFIED LAB Routine Dysuria 08/06/2019 1:05 PM ASSAY Screening examination PEANUT SHELLER for STD (sexually transmitted disease) URINE CULTURE LAB Routine Dysuria 08/06/2019 1:06 PM Screening examination PEANUT SHELLER for STD (sexually transmitted disease) Name Type [...] of this encounter Implants Implanted Type Area Exposure Machine Operator Device Shelf Model / Serial Identifier Expiration / Lot Date Log [id number] - Tray, Eddie Lens (Virtual) - 1 - Sn60wf 19.0d, Eddie Lens LENS Left: Eye Eddie 12/28/2015 SN60WF 19.0D / Implanted: Qty: 1 on 06/29/2011 at [facility] [id number] / documented as of this encounter Procedures Procedure Name Priority Date/Time Associated Diagnosis Comme nts HSV 1&2, VZV BY PCR Routine 08/05/2019 4:16 PM Genital lesion , Results for this PEANUT SHELLER female procedure are i n the results section. GALV ONLY - VAGINAL Routine 08/05/2019 4:16 PM Vaginal discha rge Results for this PATHOGENS BY DNA PEANUT SHELLER procedure a re in PROBE the results section. FUNGUS (ROUTINE) Routine 08/05/2019 4:16 PM Vaginal discharge CULTURE PEANUT SHELLER documented in this encounter Results URINALYSIS (08/06/2019 1:06 PM PEANUT SHELLER) Pathologist Sig nature APPEARANCE Clear Clear [facility] COLOR Yellow Yellow [facility] PH 6.0 4.8 - 8.0 [facility] SP GRAVITY 1.028 1.003 - 1.030 [facility] GLU U QUAL 500 mg/dL (A) Normal [facility] BLOOD 1+ (A) Negative [facility] KETONES Negative Negative [facility] PROTEIN Negative Negative [facility] UROBILIN Normal Normal [facility] BILIRUBIN Negative Negative [facility] NITRITE Negative Negative [facility] LEUK NELLY 25/uL (A) Negative [facility] RBC/HPF 4 (H) 0 - 3 HPF [facility] WBC/HPF 1 0 - 5 HPF [facility] BACTERIA Few (A) Negative [facility] MUCOUS Slight (A) Negative LPF [facility] SQ EPITH 2 HPF [facility] Specimen Urine - URINE, CLEAN CATCH Performing Organization Address [facility] Phone Number [facility] CLIA: [id number], [address] [place], [place] [address] HSV 1&2, VZV BY PCR (08/05/2019 4:16 PM PEANUT SHELLER) Pathologist Sig nature Herpes simplex virus Negative Negative [facility] type 1 Nucleic Acid SERVICES Herpes simplex virus Positive (A) Negative [facility] type 2 Nucleic Acid SERVICES Varicella zoster Negative Negative [facility] virus Nucleic Acid SERVICES Specimen Swab - VAGINA Performing Organization Address [facility] Phone Number [facility] CLIA: [id number], [address] [place] [address] [facility] GALV ONLY - VAGINAL PATHOGENS BY DNA PROBE (08/05/2019 4:16 PM PEANUT SHELLER) Pathologist Sig nature Trichomonas vaginalis Negative Negative [facility] Gardnerella vaginalis Negative Negative [facility] Kulwant species Positive (A) Negative [facility] Specimen Fluid - VAGINA Performing Organization Address [facility] Phone Number [facility] CLIA: [id number], [address] [place], [place] [address] [facility] documented in this encounter Visit Diagnoses Diagnosis [...] Effective Phone Address T ype Group Dates [facility] [id number] 2017-Pres Medica re HEALTHCARE - HEALTHCARE ent Adv HM O MANAGED DUAL COMPLETE MEDICARE HMO TMHP MEDICAID OF xxxxxxxxx 2019-Pres [phone] [address] [facility] ent [phone] [place] [address] documented as of this encounter Advance Directives Type Date Recorded Patient Police Lieutenant Explanati on Advance Directives and Living Will Power of Waste Machine Tender
--- OUTSIDE RECORDS SUMMARY | 2019-10-30 10:19 | XMS REPORT | Summary of Care ---
:[address] [facility] Address [address] [place] [address] Care Team Providers Name Role Phone Vanesa Riggs MD Primary Care Provider [phone] Beni Cuenca MD Unavailable Reason for Visit Reason Comments Results Encounter Details Date Type Department Care Team Description 08/11/2019 Telephone [facility] Pediatric and Mariela Riggs, Results Adult Primary Care- MD Wiggins [address] [place] [address], [address] [facility] 10 3 [address] [place] [address] [place] [address] [phone] Allergies No Known Allergiesdocumented as of this encounter (statuses as of 08/17/2019) Medications Medication Sig Dispensed Refills Start Date End Date Status Blood-Glucose Meter Use BID, DX 1 Kit 0 11/07/2017 Active KitIndications: E11.9 (Brand Uncontrolled type 2 upon insurance diabetes mellitus approval) without complication, with long-term current use of insulin lancets-blood glucose 1 Each 2 (two) 100 Each 11 11/07/2017 Active strips 30 gauge times daily. CmpkIndications: Use BID, DX Uncontrolled type 2 E11.9 (Brand diabetes mellitus upon insurance without complication, approval) with long-term current use of insulin blood sugar Check blood 100 Box 11 11/21/2017 Activ e diagnostic sugar twice a stripIndications: day. E11.9 Uncontrolled type 2 diabetes mellitus without complication, with long-term current use of insulin dextran Place 1 Drop in 0 Acti ve 70-hypromellose both eyes once (ARTIFICIAL now. TEARS,[id number],) 0.1-0.3 % nortriptyline 25 mg Take 1 capsule 90 capsule 3 07/17/2019 Active capsuleIndications: by mouth at Numbness bedtime. Every night for pain in legs. glipiZIDE 10 mg Take 1 tablet 180 tablet 3 07/17/2019 Active tabletIndications: by mouth 2 Uncontrolled type 2 (two) times diabetes mellitus daily before without complication, breakfast and with long-term dinner. current use of insulin metFORMIN 1,000 mg Take 1 tablet 180 tablet 3 07/17/2019 Active tabletIndications: by mouth 2 Uncontrolled type 2 (two) times diabetes mellitus daily with without complication, meals. with long-term current use of insulin gabapentin 300 mg Take 1 capsule 270 capsule 3 07/17/2019 Active capsuleIndications: by mouth 3 Diabetic (three) times polyneuropathy daily. associated with type 2 diabetes mellitus Diclofenac Sodium Take 2-4 grams 100 g 3 07/17/2019 Active (VOLTAREN) 1 % three times a gelIndications: Right day as needed foot pain for pain valACYclovir Take 1 tablet 20 tablet 0 08/05/2019 08/15/2019 E xpired (VALTREX) 1 gram by mouth 2 tabletIndications: (two) times Genital lesion, daily for 10 female days. metroNIDAZOLE Take 1 tablet 30 tablet 0 08/05/2019 08/15/2019 (FLAGYL) 500 mg by mouth every tabletIndications: 8 (eight) hours Vaginal discharge for 10 days. fluconazole 200 mg Take 1 tablet 2 tablet 0 08/07/20192019 tabletIndications: by mouth every Vulvovag[place] 72 (seventy-two) hours for 6 days. documented as of this encounter (statuses as of 08/17/2019) Active Problems Problem Noted Date Hypotension 11/21/2018 Epigastric pain 11/21/2018 Diverticulitis 09/23/2018 Essential hypertension, benign 09/21/2017 Uncontrolled type 2 diabetes mellitus without complica tion, without 05/05/2017 long-term current use of insulin NPDR (nonproliferative diabetic retinopathy),MILD 07/2 08/2012 Cataract, Right eye 01/07/2013 Glaucoma suspect, OU 01/07/2013 Hypertensive retinopathy 01/07/2013 Benign hypertensive heart disease without heart failur e 05/26/2011 Pseudophakia of left eye 05/26/2011 documented as of this encounter (statuses as of 08/17/2019) Immunizations Name Administration Dates Next Due Influenza [...] Office Visit Family Medicine Dar Encarnacion MD [address] [place] [address] [phone] 08/25/2019 Office Visit Obstetrics & Gynecology Mallory Garza PA-C [address] [place] [address] [address] [place], [place] [address] Health Maintenance Due Date Last Done Comments [...] of this encounter Implants Implanted Type Area Environmental Studies Faculty Member Device Shelf Model / Serial Identifier Expiration / Lot Date Log [id number] - Tray, Eddie Lens (Virtual) - 1 - Sn60wf 19.0d, Eddie Lens LENS Left: Eye Eddie 12/28/2015 SN60WF 19.0D / Implanted: Qty: 1 on 06/29/2011 at [facility] [id number] / documented as of this encounter Results Not on filedocumented in this encounter Insurance Payer Benefit Plan / Subscriber ID Effective Phone Address T ype Group Dates [facility] [id number] 2017-Pres Medica re HEALTHCARE - HEALTHCARE ent Adv HM O MANAGED DUAL COMPLETE MEDICARE HMO TMHP MEDICAID OF xxxxxxxxx 2019-Pres [phone] Medi ca[facility] [place] ent [id number] [place] [address] documented as of this encounter Advance Directives Type Date Recorded Patient Director Of Restaurant Explanati on Advance Directives and Living Will Power of Light Fixture Servicer
--- OUTSIDE RECORDS SUMMARY | 2019-10-30 10:20 | XMS REPORT | Summary of Care ---
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 [address] [id number] [place] [id number] (STAT) Status Reason Specialty Diagnoses / Referred By Referred To Procedures Contact Contact New Request Vascular Procedures Kassie Gamboa Sonography UNILATERAL VENOUS G, SIGN BUILDER SUPERVISOR DUPLEX LOWER [address] EXTREMITY BY [id number] [place] [address] Reason for Visit Reason Comments Leg Pain Auth/Cert Status Reason Specialty Diagnoses / Referred By Referred To Procedures Contact Contact Emergency Medicine Diagnoses pain in legs [facility] [address] [place] [id number] Fax: Encounter Details Date Type Department Care Team Description 09/01/2019 Emergency ADC-Emergency Kassie Gamboa G, Pain of l eft lower extremity (Primary Dx); Department 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 TEARS,[id number],) 0.1-0.3 % nortriptyline 25 mg Take 1 [...] day as needed foot pain for pain lisinopril 10 mg TK 1 T PO D 0 07/19/2019 Active tablet pantoprazole 40 mg EC TK 1 T PO D 0 07/22/2019 Active tablet ibuprofen 200 mg Take 1 tablet by 40 tablet 0 09/01/2019 Active tabletIndications: mouth every 6 Superficial thrombosis (six) hours. of lower extremity, right documented as of this encounter (statuses as of 09/01/2019) Active Problems Problem Noted Date Hypotension 11/21/2018 [...] as of this encounter (statuses as of 09/01/2019) Immunizations Name Administration Dates Next Due Influenza [...] Sign Reading Time Taken Comments Blood Pressure 105/89 09/01/2019 3:15 PM CDT Pulse 58 09/01/2019 3:15 PM CDT Temperature 36.8 C (98.3 F) 09/01/2019 12:15 PM CDT Respiratory Rate 18 09/01/2019 3:15 PM CDT Oxygen Saturation 98% 09/01/2019 3:15 PM CDT Inhaled Oxygen Concentration - - Weight 66.2 kg (146 lb) 09/01/2019 12:11 PM CDT Height - - Body Mass Index 25.06 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 documented in this encounter Discharge Instructions Kassie Keller NP - 09/01/2019Diagnosis: Superficial venous thrombosis of lower left extremity Neuropathy DM poorly controlled Left leg pain Motrin 200 mg QID Intermittent low heat therapy with caution Elevate the extremity as much as possible Follow up with your doctor in 5-7 days documented in this encounter Plan of Treatment Date Type Specialty Care Team Description 09/11/2019 Office Visit Internal Medicine Marysol Riggs MD [address] [id number] 15 [phone] Health Maintenance Due Date Last Done Comments [...] of this encounter Implants Implanted Type Area Habilitation Worker Device Shelf Model / Serial Identifier Expiration / Lot Date Log [id number] - David Maldonadoon Lens (Virtual) - 1 - [id number] 19.0d, Eddie Lens LENS Left: Eye Eddie 12/28/2015 [id number] 19.0D / Implanted: Qty: 1 on 06/29/2011 at [facility] [id number] / documented as of this encounter Procedures Procedure Name Priority Date/Time Associated Comments Diagnosis XR TIBIA FIBULA 2 VW STAT 09/01/2019 1:13 PM Pain of left lower Results for this LEFT CDT extremity procedure are i n the results section. UNILATERAL VENOUS STAT 09/01/2019 12:45 PM DUPLEX LOWER CDT EXTREMITY BY VASCULAR LAB NOTICE OF PRIVACY Routine 09/01/2019 11:50 AM PRACTICES CDT CONSENT/REFUSAL FOR Routine 09/01/2019 11:49 AM DIAGNOSIS AND CDT TREATMENT documented in this encounter Results XR TIBIA FIBULA 2 VW LEFT (09/01/2019 1:13 PM CDT) Specimen Impressions Performed At FINDINGS/IMPRESSION: PACS/VR/DOSE No acute fracture or dislocation. Vascular calcifications are noted Osteopenia. Narrative Performed At EXAM: XR TIBIA FIBULA 2 VW LEFT PACS/VR/DOSE HISTORY: 74 years-old Female pain no his tory of trauma COMPARISON: None. Procedure Note [facility], Radiant Results Inft User - 2019 2:22 PM CDT EXAM: XR TIBIA FIBULA 2 VW LEFT HISTORY: 74 years-old Female pain no his tory of trauma COMPARISON: None. IMPRESSION FINDINGS/IMPRESSION: No acute fracture or dislocation. Vascular calcifications are noted Osteopenia. Performing Organization Address City/State/Zipcode Phone Number PACS/VR/DOSE documented in this encounter Visit Diagnoses Diagnosis Pain of left lower extremity - Primary Superficial thrombosis of lower extremit y, right Uncontrolled type 2 diabetes mellitus wi thout complication, without long-term current use of insulin Neuropathy Mononeuritis of unspecified site documented in this encounter Insurance Payer Benefit Plan / Subscriber ID Effective Phone Address T e Group Dates [facility] [id number] 2017-Pres Medica re HEALTHCARE - HEALTHCARE ent Adv HM O MANAGED DUAL COMPLETE MEDICARE HMO TM MEDICAID OF xxxxxxxxx 2019-Pres [phone] [address] [facility] ent [id number] [place] [address] documented as of this encounter Advance Directives Type Date 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
--- OUTSIDE RECORDS SUMMARY | 2019-10-30 10:21 | XMS REPORT | Summary of Care ---
:1945 Author Organization [facility] Address [address] [place] [id number] Care Team Providers Name Role Phone Vanesa Riggs MD Primary Care Provider [phone] Beni Cuenca MD Unavailable Reason for Visit Reason Comments Pain Encounter Details Date Type Department Care Team Description 10/21/2019 Case Management [facility] and Maria Isabel Block MD [facility] [address] [place] [address] [id number] [place] [address] [place], [place] [phone] Allergies No Known Allergiesdocumented as of this encounter (statuses as of 10/21/2019) Medications Medication Sig Dispensed Refills Start Date End Date Status glipiZIDE XL 10 mg Take 1 tablet by 60 tablet 2 10/21/2019 Active 24 hr mouth 2 (two) tabletIndications: times daily Uncontrolled type 2 before breakfast diabetes mellitus and dinner. without complication, without long-term current use of insulin aspirin 81 mg Take 1 tablet by 30 tablet 2 10/22/2019 Active chewable mouth daily. tabletIndications: Ischemic ulcer of toe, right, with unspecified severity, Uncontrolled type 2 diabetes mellitus without complication, without long-term current use of insulin, Gangrene, Essential hypertension, benign atorvastatin 40 mg Take 1 tablet by 30 tablet 2 10/21/2019 Active tabletIndications: mouth at bedtime. Ischemic ulcer of toe, right, with unspecified severity, Uncontrolled type 2 diabetes mellitus without complication, without long-term current use of insulin, Gangrene, Essential hypertension, benign clopidogreL 75 mg Take 1 tablet by 30 tablet 2 10/22/2019 Active tabletIndications: mouth daily. Ischemic ulcer of toe, right, with unspecified severity psyllium 3.4 gram Take 1 Packet by 30 Packet 2 10/22/2019 Active packetIndications: mouth daily. Right foot pain Polyethylene Glycol Take 1 Packet by 30 Packet 2 10/22/2019 Active 3350 17 gram mouth daily. powderIndications: Right foot pain HYDROcodone-acetamin Take 1 tablet by 28 tablet 0 10/21/2019 Active ophen 5-325 mg mouth every 6 tabletIndications: (six) hours as Right foot pain, needed (right Ischemic ulcer of foot pain). toe, right, with unspecified severity, Gangrene pantoprazole 40 mg Take 1 tablet by 30 tablet 2 10/22/2019 Active EC mouth daily. tabletIndications: Right foot pain HYDROcodone-acetamin Take 1 tablet by 28 tablet 0 10/21/2019 Active ophen 5-325 mg mouth every 8 tabletIndications: (eight) hours as Dry gangrene needed for Pain (scale 7-10). Blood-Glucose Meter Use BID, DX E11.9 1 Kit 0 11/07/2017 Suspended KitIndications: (Brand upon Uncontrolled type 2 insurance diabetes mellitus approval) without complication, with long-term current use of insulin Additional information lancets-blood glucose strips 1 Each 2 (two) times 100 Each 11/07/2017 Suspended 30 gauge CmpkIndications: daily. Use BID, DX Uncontrolled type 2 diabetes E11.9 (Brand upon mellitus without insurance approval) complication, with long-term current use of insulin Additional information blood sugar diagnostic Check blood sugar 100 Box 8 Suspended stripIndications: Uncontrolled twice a day. E11.9 type 2 diabetes mellitus without complication, with long-term current use of insulin Additional information nortriptyline 25 mg Take 1 capsule by 90 capsule 3 07/17/2019 Suspended capsuleIndications: Numbness mouth at bedtime. Every night for pain in legs. Additional information metFORMIN 1,000 mg Take 1 tablet by 180 tablet 3 07/17/2019 Suspended tabletIndications: Uncontrolled mouth 2 (two) type 2 diabetes mellitus times daily with without complication, with meals. long-term current use of insulin Additional information documented as of this encounter (statuses as of 10/21/2019) Active Problems Problem Noted Date Gangrene 10/18/2019 Osteomyelitis 10/17/2019 Hypotension 11/21/2018 Epigastric pain 11/21/2018 Diverticulitis 09/23/2018 [...] as of this encounter (statuses as of 10/21/2019) Immunizations Name Administration Dates Next Due Influenza [...] Travel End No recent travel history available. COVID-19 Exposure Response Date Recorded In the last month, have you been in contact with No / Unsure 10/17/2019 12:05 PM CDT someone who was confirmed or suspected to have Coronavirus / COVID-19? documented as of this encounter Last Filed Vital Signs Not on filedocumented in this encounter Plan of Treatment Health Maintenance Due Date Last Done Comments COLONOSCOPY 09/28/2011 09/27/2001 FOOT EXAM 03/25/2019 03/25/2018, 03/28/2017, 03/28/2017 EYE EXAM 05/21/2019 05/21/2018, 01/31/2017 (Previously completed), 10/27/2013, Additional history exists Medicare Wellness Visit 10/29/2019 10/28/2018 Breast Cancer Screening 03/07/2020 03/07/2019, 04/26/2011 (MAMMOGRAM) HgA1C 04/18/2020 10/17/2019, 07/17/2019, 11/21/2018, Additional history exists URINE MICROALBUMIN 07/17/2020 07/17/2019, 04/10/2018, 05/30/2016, Additional history exists Zoster Recombinant Vaccine 07/17/2020 Postp oned from ([facility]) (1 of 2) 1996 ( Insurance / Financial) DTaP,Tdap,and Td Vaccines 08/16/2020 Postpo rand from (1 - Tdap) 1957 ([employer] / Financial) LDL-C 10/16/2020 10/17/2019, 09/30/2018, 05/29/2016, Additional history exists CREATININE (SERUM) 10/17/2020 10/18/2019, 10/17/2019, 09/08/2019, Additional history exists Osteoporosis Screening 03/07/2029 03/07/2019 HEPATITIS C (HCV) SCREEN Completed 04/10/2018 PNEUMOCOCCAL VACCINES 65+ Completed 04/10/2018, 03/28/2017 INFLUENZA VACCINE Completed 03/26/2019, 04/10/2018, 03/28/2017, Additional history exists documented as of this encounter Implants Implanted Type Area Rag Willow Operator Device Shelf Model / Serial Identifier Expiration / Lot Date Log [id number] - Joel Eddie Lens (Virtual) - 1 - [id number] 19.0d, Eddie Lens LENS Left: Eye Eddie 12/28/2015 [id number] 19.0D / Implanted: Qty: 1 on 06/29/2011 at [facility] [id number] / documented as of this encounter Results Not on filedocumented in this encounter Visit Diagnoses Diagnosis Dry gangrene - Primary Gangrene documented in this encounter Insurance Payer Benefit Plan / Subscriber ID Effective Phone Address T ype Group Dates [facility] [id number] 2017-Pres Medica re HEALTHCARE - HEALTHCARE ent Adv HM O MANAGED DUAL COMPLETE MEDICARE HMO [place] MEDICAID OF xxxxxxxxx 2019-Pres [phone] [place] ent [id number] [place] [address] documented as of this encounter Advance Directives Type Date 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
--- OUTSIDE RECORDS SUMMARY | 2019-10-30 10:21 | XMS REPORT | Summary of Care ---
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 [address] [place] [address] Reason for Visit Reason Comments Abdominal Pain Auth/Cert Status Reason Specialty Diagnoses / Referred By Referred To Procedures Contact Contact Emergency Medicine Diagnoses VOMITING [facility] Emergency Dept [address] [facility] [place] [address] Fax: Encounter Details Date Type Department Care Team Description 09/08/2019 Emergency ADC-Emergency Shayne Jade, Sigmoid div erticulitis (Primary Dx); 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 TEARS,[id number],) 0.1-0.3 % nortriptyline 25 mg Take 1 [...] 09/01/2019 Active tabletIndications: mouth every 6 Superficial (six) hours. thrombosis of lower extremity, right ciprofloxacin HCl 500 Take 1 tablet by 20 tablet 0 09/08/2019 Active mg tabletIndications: mouth 2 (two) Sigmoid times daily. diverticulitis metroNIDAZOLE 500 mg Take 1 tablet by 30 tablet 0 09/08/2019 0 09/18/2019 Active tabletIndications: mouth every 8 Sigmoid (eight) hours diverticulitis for 10 days. ondansetron (ZOFRAN Take 1 tablet by 12 tablet 0 09/08/2019 Active ODT) 4 mg mouth every 8 disintegrating (eight) hours as tabletIndications: needed for Sigmoid Nausea and diverticulitis Vomiting (N/V) for up to 12 doses. traMADol 50 mg Take 1 tablet by 12 tablet 0 09/08/2019 020 Active tabletIndications: mouth every 6 Sigmoid (six) hours as diverticulitis needed for Pain (scale 7-10) for up to 12 days. documented as of this encounter (statuses as of 09/08/2019) Active Problems Problem Noted Date Hypotension 11/21/2018 [...] as of this encounter (statuses as of 09/08/2019) Immunizations Name Administration Dates Next Due Influenza [...] Sign Reading Time Taken Comments Blood Pressure 140/65 09/08/2019 5:35 PM CDT Pulse 67 09/08/2019 5:35 PM CDT Temperature 37.8 C (100.1 F) 09/08/2019 3:42 PM CDT Respiratory Rate 17 09/08/2019 5:35 PM CDT Oxygen Saturation 96% 09/08/2019 5:35 PM CDT Inhaled Oxygen Concentration - - Weight 66.7 kg (147 lb) 09/08/2019 3:42 PM CDT Height 162.6 cm (5' 4") 09/08/2019 3:42 PM CDT Body Mass Index 25.23 09/08/2019 3:42 PM CDT documented in this encounter Discharge Instructions Shayne Hobbs FNP - 09/08/2019 DIAGNOSIS 1. Diverticulitis NO LIFE-THREATENING FINDINGS ON TODAY'S EXAM. PROCEDURES IN THE ER TODAY: Orders Placed This Encounter Procedures CT ABDOMEN PELVIS W CONTRAST CBC WITH DIFF COMP. METABOLIC PANEL (80715) LIPASE URINALYSIS CBC WITH DIFFERENTIAL MEDICATIONS ADMINISTERED IN THE ER TODAY: Medications ciprofloxacin HCl (CIPRO) tablet 500 mg (has no administration in time range) metroNIDAZOLE (FLAGYL) tablet 500 mg (has no administration in time range) NaCl 0.9% (NS) bolus infusion 1,000 mL (1,000 mL IV Infusion New Bag 09/08/19 1603) ondansetron (ZOFRAN (PF)) injection 4 mg (4 mg Slow IV Push Given 09/08/19 3052) iohexol (OMNIPAQUE 350 BULK-150 mL) injection 120 mL (120 mL Intravenous Given 09/08/19 1700) YOUR PRESCRIPTIONS AND [id number] MEDICATION RECOMMENDATIONS: New Prescriptions CIPROFLOXACIN HCL 500 MG TABLET Take 1 tablet by mouth 2 (two) times daily. METRONIDAZOLE 500 MG TABLET Take 1 tablet by mouth every 8 (eight) hours for 10 days. ONDANSETRON (ZOFRAN ODT) 4 MG DISINTEGRATING TABLET Take 1 tablet by mouth every 8 (eight) hoursas needed for Nausea and Vomiting (N/V) for up to 12 doses. TRAMADOL 50 MG TABLET Take 1 tablet by mouth every 6 (six) hours as needed for Pain (scale 7-10)for up to 12 days. SPECIAL CARE INSTRUCTIONS: [place] diet and increase fiber in diet. FOLLOW-UP RECOMMENDATIONS: RECOMMEND FOLLOW-UP WITH A PRIMARY CARE PROVIDER OR SPECIALIST IN 2-5 DAYS, ESPECIALLY IF NO IMPROVEMENT IN SYMPTOMS. TO FOLLOW-UP WITHIN THE [facility], TRY THESE OPTIONS (CLINIC APPOINTMENTS AVAILABLE ON BUED-KG-OXYT BASIS): 1. SCHEDULE AN APPOINTMENT ONLINE AT WWW[facility] 2. OR CALL THE [facility] ACCESS CENTER AT OR 3. OR CALL YOUR [facility] PHYSICIAN'S OFFICE DIRECTLY IF YOU ARE ALREADY AN ESTABLISHED [facility] PATIENT. OR, YOU MAY FOLLOW-UP WITH A PROVIDER OF YOUR CHOICE, SUCH : 1. A PHYSICIAN OF YOUR CHOICE 2. [facility], . LOCATIONS IN [facility] 3. [facility], [address], [place]; [phone] RETURN TO ER FOR WORSENING OF SYMPTOMS. AttachmentsThe following attachments cannot be sent through Care Everywhere. Vomiting or Diarrhea (Adult), Diet for (Cambodian)Vomiting and Diarrhea,Self- Care for (Cambodian)Diverticulosis and Diverticulitis, Understanding (Cambodian) Diverticulitis (Cambodian)documented in this encounter Plan of Treatment Date Type Specialty Care Team Description 09/11/2019 Telemedicine Visit Internal Medicine Bismark Riggs MD [address] [id number] 15 Health Maintenance Due Date Last Done [...] of this encounter Implants Implanted Type Area Tower Crane Operator Device Shelf Model / Serial Identifier Expiration / Lot Date Log [id number] - Tray, Eddie Lens (Virtual) - 1 - [id number] 19.0d, Eddie Lens LENS Left: Eye Eddie 12/28/2015 [id number] 19.0D / Implanted: Qty: 1 on 06/29/2011 at [facility] [id number] / documented as of this encounter Procedures Procedure Name Priority Date/Time Associated Diagnosis Comme nts CT ABDOMEN PELVIS W STAT 09/08/2019 5:10 Generalized Resu lts for this CONTRAST PM CDT abdominal pain procedure are in the results section. URINALYSIS STAT 09/08/2019 4:07 Generalized Results for this PM CDT abdominal pain procedure are in the results section. CBC WITH DIFFERENTIAL STAT 09/08/2019 3:58 Generalized Re sults for this PM CDT abdominal pain procedure are in the results section. CBC WITH DIFFERENTIAL STAT 09/08/2019 3:58 Generalized Re sults for this PM CDT abdominal pain procedure are in the results section. COMP. METABOLIC PANEL STAT 09/08/2019 3:58 Generalized Re sults for this (65782) PM CDT abdominal pain procedure are in the results section. LIPASE STAT 09/08/2019 3:58 Generalized Results for this PM CDT abdominal pain procedure are in the results section. documented in this encounter Results CT ABDOMEN PELVIS W CONTRAST (09/08/2019 5:10 PM CDT) Specimen Impressions Performed At Impression: PACS/VR/DOSE Colitis is seen as circumferential mural thickening extending from the splenic flexure to the sigmoid colon. There are scattered diverticuli and evid ence of diverticulitis involving the sigmoid colon, seen in the left side of the pelvis. There is no evidence of drainable fluid collection o r abscess formation. Urinary bladder wall thickening is concerning for cyst itis. Narrative Performed At Exam: CT ABDOMEN PELVIS W CONTRAST PACS/VR/DOSE Clinical History: Abd pain, acute, gener alized Comparison: None Findings: The visualized lungs are clear and there is no evidence of pleural pericardial effusion. The visualized altagracia ast tissue is symmetric. The liver, gallbladder, spleen, pancreas, and the adre nals appear normal. There is no evidence of hydronephrosis. No renal calculi are seen. A hypodensity at the superior pole of right kidney measu ring 1.1 cm (2:40) is consistent with a simple cyst. There is no evidence of free air, or lym phadenopathy seen in the abdomen and pelvis. There is circumferential mural thickenin g involving the colon extending from the splenic flexure to the sigmoid consistent wit h colitis. Scattered diverticulosis is seen. Focal diverticul itis is seen on the left side of the sigmoid colon (2:116). There is surrounding free f luid in the pelvis. Mucosal enhancement is seen involving th e distal sigmoid colon and the rectum. No evidence of drainable fluid c ollection or abscess formation. Normal appendix is seen in the right low er quadrant. No focal lesions are seen in the uterus. No evidence o f adnexal masses. The urinary bladder shows thickened goodrich (2 :132). Degenerative changes are seen in the spi ne with no evidence of focal lesions. Procedure Note [facility], Radiant Results Inft User - 2019 5:25 PM CDT Exam: CT ABDOMEN PELVIS W CONTRAST Clinical History: Abd pain, acute, gener alized Comparison: None Findings: The visualized lungs are clear and there is no evidence of pleural pericardial effusion. The visualized altagracia ast tissue is symmetric. The liver, gallbladder, spleen, pancreas , and the adrenals appear normal. There is no evidence of hydronephrosis. No renal calculi are seen. A hypodensity at the superior pole of righ t kidney measuring 1.1 cm (2:40) is consistent with a simple cyst. There is no evidence of free air, or lym phadenopathy seen in the abdomen and pelvis. There is circumferential mural thickenin g involving the colon extending from the splenic flexure to the sigmoid consistent with colitis. Scattered diverticulosis is seen. Focal diverticul itis is seen on the left side of the sigmoid colon (2:116). There is surr ounding free fluid in the pelvis. Mucosal enhancement is seen involving th e distal sigmoid colon and the rectum. No evidence of drainable fluid c ollection or abscess formation. Normal appendix is seen in the right low er quadrant. No focal lesions are seen in the uterus. No evidence of adnexal masses. The urinary bladder shows thickened goodrich (2 :132). Degenerative changes are seen in the spi ne with no evidence of focal lesions. IMPRESSION Impression: Colitis is seen as circumferential mural thickening extending from the splenic flexure to the sigmoid colon. There are scattered diverticuli and evid ence of diverticulitis involving the sigmoid colon, seen in the left side of the pelvis. There is no evidence of drainable fluid collection o r abscess formation. Urinary bladder wall thickening is pili rning for cystitis. Performing Organization Address City/State/Zipcode Phone Number PACS/VR/DOSE URINALYSIS (09/08/2019 4:07 PM CDT) Pathologist Sig nature APPEARANCE Clear Clear [facility] COLOR Yellow Yellow [facility] PH 6.0 4.8 - 8.0 [facility] SP GRAVITY 1.017 1.003 - 1.030 [facility] GLU U QUAL 500 mg/dL (A) Normal [facility] BLOOD 1+ (A) Negative [facility] KETONES Negative Negative [facility] PROTEIN Negative Negative [facility] UROBILIN Normal Normal [facility] BILIRUBIN Negative Negative [facility] NITRITE Negative Negative [facility] LEUK NELLY Negative Negative [facility] RBC/HPF 5 (H) 0 - 3 HPF [facility] WBC/HPF 1 0 - 5 HPF [facility] BACTERIA Negative Negative [facility] MUCOUS Slight (A) Negative LPF [facility] SQ EPITH 1 HPF [facility] Specimen Urine - URINE, CLEAN CATCH Performing Organization Address City/State/Zipcode Phone Number [facility] CLIA: [id number], [address] [place] [address] CBC WITH DIFFERENTIAL (09/08/2019 3:58 PM CDT) Pathologist Sig nature WBC 12.57 (H) 4.30 - 11.10 [facility] 10*3/L [facility] RBC 4.31 3.93 - 5.25 [facility] 10*6/L [facility] HGB 12.8 11.6 - 15.0 [facility] g/dL [facility] HCT 39.1 35.7 - 45.2 % [facility] MCV 90.7 80.6 - 95.5 fL [facility] MCH 29.7 25.9 - 32.8 pg [facility] MCHC 32.7 31.6 - 35.1 [facility] g/dL [facility] RDW-SD 43.1 39.0 - 49.9 fL [facility] RDW-CV 13.0 12.0 - 15.5 % [facility] PLT 318 166 - 358 [facility] 10*3/L [facility] MPV 10.4 9.5 - 12.9 fL [facility] NRBC/100 WBC 0.0 0.0 - 10.0 /100 [facility] WBCs [facility] NRBC x10^3 <0.01 10*3/L [facility] GRAN MAT (NEUT) % 72.4 % [facility] IMM GRAN % 0.40 % [facility] LYMPH % 20.4 % [facility] MONO % 5.6 % [facility] EOS % 1.0 % [facility] BASO % 0.2 % [facility] GRAN MAT x10^3(ANC) 9.10 (H) 1.88 - 7.09 [facility] 10*3/uL [facility] IMM GRAN x10^3 0.05 0.00 - 0.06 [facility] 10*3/uL [facility] LYMPH x10^3 2.56 1.32 - 3.29 [facility] 10*3/uL HOSPITAL LAB[facility]ORY MONO x10^3 0.70 0.33 - 0.92 [facility] 10*3/uL HOSPITAL LAB[facility]ORY EOS x10^3 0.13 0.03 - 0.39 [facility] 10*3/uL HOSPITAL LAB[facility] BASO x10^3 0.03 0.01 - 0.07 [facility] 10*3/uL HOSPITAL LABORATORY Specimen Blood - VENOUS Performing Organization Address [facility] Phone Number [facility] CLIA: [id number], [address] [place], [place] [address] LIPASE (09/08/2019 3:58 PM CDT) Pathologist Sig nature LIPASE 62 0 - 220 U/L [facility] Specimen Blood - VENOUS Performing Organization Address [facility] Phone Number [facility] CLIA: [id number], [address] [place], [place] [address] COMP. METABOLIC PANEL (26507) (09/08/2019 3:58 PM CDT) Pathologist Sig nature NA 130 (L) 135 - 145 [facility] mmol/L [facility] K 4.1 3.5 - 5.0 [facility] mmol/L [facility] CL 97 (L) 98 - 108 mmol/L [facility] CO2 TOTAL 26 23 - 31 mmol/L [facility] AGAP 7 2 - 16 [facility] BUN 11 7 - 23 mg/dL [facility] GLUCOSE 304 (H) 70 - 110 mg/dL [facility] CREATININE 0.71 0.50 - 1.04 [facility] mg/dL [facility] TOTAL BILI 1.3 (H) 0.1 - 1.1 mg/dL [facility] CALCIUM 9.0 8.6 - 10.6 [facility] mg/dL [facility] T PROTEIN 7.5 6.3 - 8.2 g/dL [facility] ALBUMIN 4.0 3.5 - 5.0 g/dL [facility] ALK PHOS 94 34 - 122 U/L [facility] ALTv 13 5 - 35 U/L [facility] AST(SGOT) 20 13 - 40 U/L [facility] eGFR Calculation 80.7 mL/min/1.73m2 [facility] ([facility] 2001 LABORATORY [place]) eGFR Calculation 97.8 mL/min/1.73m2 [facility] () [facility] Specimen Blood - VENOUS Narrative Performed At [facility] of Glomerular Filtration Rate (GFR) [facility] and Staging of Kidney Disease* + [...] abnormalities in imaging tests). Performing Organization Address City/State/Zipcode Phone Number [facility] CLIA: [id number], [address] [address] [address] [facility] [address] documented in this encounter Visit Diagnoses Diagnosis Sigmoid diverticulitis - Primary Diverticulitis of colon (without mention of hemorrhage) Generalized abdominal pain Abdominal pain, generalized DM (diabetes mellitus), secondary Secondary diabetes mellitus without ment ion of complication, not stated as uncontrolled, or unspecified Nausea and vomiting in adult Nausea with vomiting documented in this encounter Administered Medications Medication Order MAR Action Action Date Dose Rate Site ciprofloxacin HCl (CIPRO) tablet Given 09/08/2019 5:45 PM CDT 5 00 mg 500 mg 500 mg, Oral, ONCE, 1 dose, 09/08/19 at 1830, DANIELA, Reason for Anti-Infective: Documented Infection, Documented Infection Site: Abdominal, Duration of Therapy: 10 days iohexol (OMNIPAQUE 350 BULK-150 mL) Given 09/08/2019 5:00 PM CD T 120 mL injection 120 mL 120 mL, Intravenous, ONCE, 1 dose, 09/08/19 at 1715, Routine metroNIDAZOLE (FLAGYL) tablet 500 mg Given 09/08/2019 5:45 PM CDT 500 mg 500 mg, Oral, ONCE, 1 dose, 09/08/19 at 1830, DANIELA, Reason for Anti-Infective: Documented Infection, Documented Infection Site: Abdominal, Duration of Therapy: 10 days NaCl 0.9% (NS) bolus infusion New Bag 09/08/2019 4:03 PM CDT 1,000 mL 999 mL/hr 1,000 mL at 999 mL/hr, 1,000 mL, IV Infusion, ONCE, 1 dose, 09/08/19 at 1700, STAT ondansetron (ZOFRAN (PF)) injection 4 mg Given 09/08/2019 3:59 PM CDT 4 mg 4 mg, Slow IV Push, ONCE, 1 dose, 09/08/19 at 1700, DANIELA documented in this encounter Insurance Payer Benefit Plan / Subscriber ID Effective Phone Address T ype Group Dates [facility] [id number] 2017-Pres [facility] - HEALTHCARE ent Adv HM O MANAGED DUAL COMPLETE MEDICARE HMO [facility] MEDICAID OF xxxxxxxxx 2019-Pres [phone] [facility] ent [phone] [place] [address] documented as of this encounter Advance Directives Type Date Recorded 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
--- OUTSIDE RECORDS SUMMARY | 2019-10-30 10:21 | XMS REPORT | Summary of Care ---
:1945 Author Organization [facility] - [facility] Address [address] [place] [address] Care Team Providers Name Role Phone Vanesa Riggs MD Primary Care Provider [phone] Beni Cuenca MD Unavailable Reason for Visit Reason Comments Error unable to reach patient via phone for telelvisit Encounter Details Date Type Department Care Team Description 09/11/2019 Telemedicine Visit [facility] YONAS Riggs Pediatric and Adult Vanesa Soriano MD ENCOUNTER--DISREGAR Primary Care- [address] (Primary Dx) [address] [address] [place], [place] [phone] [address] Allergies No Known Allergiesdocumented as of this encounter (statuses as of 10/05/2019) Medications Medication Sig Dispensed Refills Start Date [...] ve 71-hypromellose both eyes once (ARTIFICIAL now. TEARS,[id number],) 0.1-0.3 % nortriptyline 25 mg Take 1 [...] tablet ibuprofen 200 mg Take 1 tablet 40 tablet 0 09/01/2019 Active tabletIndications: by mouth every Superficial 6 (six) hours. thrombosis of lower extremity, right ciprofloxacin HCl 500 Take 1 tablet 20 tablet 0 09/08/2019 Active mg tabletIndications: by mouth 2 Sigmoid (two) times diverticulitis daily. ondansetron (ZOFRAN Take 1 tablet 12 tablet 0 09/08/2019 Active ODT) 4 mg by mouth every disintegrating 8 (eight) hours tabletIndications: as needed for Sigmoid Nausea and diverticulitis Vomiting (N/V) for up to 12 doses. metroNIDAZOLE 500 mg Take 1 tablet 30 tablet 0 09/08/2019 04/0 07/2019 tabletIndications: by mouth every Sigmoid 8 (eight) hours diverticulitis for 10 days. traMADol 50 mg Take 1 tablet 12 tablet 0 09/08/2019 09/20/2019 tabletIndications: by mouth every Sigmoid 6 (six) hours diverticulitis as needed for Pain (scale 7-10) for up to 12 days. documented as of this encounter (statuses as of 10/05/2019) Active Problems Problem Noted Date Hypotension 11/21/2018 [...] as of this encounter (statuses as of 10/05/2019) Immunizations Name Administration Dates Next Due Influenza [...] Signs Not on filedocumented in this encounter Progress Notes Vanesa Riggs MD - 09/11/2019 7:20 AM CDTUnable to reach patient. documented in this encounter Plan of Treatment Health Maintenance Due Date Last Done Comments COLONOSCOPY 09/28/2011 09/27/2001 FOOT EXAM 03/25/2019 03/25/2018, 03/28/2017, 03/28/2017 EYE EXAM 05/21/2019 05/21/2018, 01/31/2017 (Previously completed), 10/27/2013, Additional history exists LDL-C 10/01/2019 09/30/2018, 05/29/2016, 04/26/2012, Additional history exists Medicare Wellness Visit 10/29/2019 10/28/2018 HgA1C 01/15/2020 07/17/2019, 11/21/2018, 09/30/2018, Additional history exists Breast Cancer Screening 03/07/2020 03/07/2019, 04/26/2011 (MAMMOGRAM) URINE MICROALBUMIN 07/17/2020 07/17/2019, 04/10/2018, 05/30/2016, Additional history exists Zoster Recombinant Vaccine 07/17/2020 Postp oned from ([facility]) (1 of 2) 1996 ( Insurance / Financial) DTaP,Tdap,and Td Vaccines 08/16/2020 Postpo rand from (1 - Tdap) 1957 ([employer] k[employer] / Financial) CREATININE (SERUM) 09/07/2020 09/08/2019, 07/17/2019, 02/14/2019, Additional history exists Osteoporosis Screening 03/07/2029 03/07/2019 HEPATITIS C (HCV) SCREEN Completed 04/10/2018 PNEUMOCOCCAL VACCINES 65+ Completed 04/10/2018, 03/28/2017 INFLUENZA VACCINE Completed 03/26/2019, 04/10/2018, 03/28/2017, Additional history exists documented as of this encounter Implants Implanted Type Area Hydrogenation Still Operator Device Shelf Model / Serial Identifier Expiration / Lot Date Log [id number] - Tray, Eddie Lens (Virtual) - 1 - Sn60wf 19.0d, Eddie Lens LENS Left: Eye Eddie 12/28/2015 SN60WF 19.0D / Implanted: Qty: 1 on 06/29/2011 at [facility] [id number] / documented as of this encounter Results Not on filedocumented in this encounter Visit Diagnoses Diagnosis ERRONEOUS ENCOUNTER--DISREGARD - Primary documented in this encounter Insurance Payer Benefit Plan / Subscriber ID Effective Phone Address T ype Group Dates [facility] [id number] 2017-Pres [facility] - HEALTHCARE ent Adv HM O MANAGED DUAL COMPLETE MEDICARE HMO [facility] MEDICAID OF xxxxxxxxx 2019-Pres [phone] Medi ca[facility] [place] ent [phone] [place] [address] documented as of this encounter Advance Directives Type Date Recorded Patient Authorization Rep Explanati on Advance Directives and Living Will Power of Still Pump Operator
--- OUTSIDE RECORDS SUMMARY | 2019-10-30 10:23 | XMS REPORT | Summary of Care ---
:1945 Author Organization [facility] - Health Address [address] [place] [id number] Care Team Providers Name Role Phone Vanesa Riggs MD Primary Care Provider Beni Cuenca MD Unavailable Reason for Visit Reason Comments Refill Request Encounter Details Date Type Department Care Team Description 10/17/2019 Refill [facility] Pediatric and Mariela Riggs, Refill Request Adult Primary Care- MD Wiggins [address] [place] [address], [address] [facility] [address] [place] [address] [place] [address] [phone] Allergies No Known Allergiesdocumented as of this encounter (statuses as of 10/27/2019) Medications Medication Sig Dispensed Refills Start Date [...] of insulin nortriptyline 25 mg Take 1 capsule by 90 capsule 3 07/17/2019 Active capsuleIndications: mouth at bedtime. Numbness Every night for pain in legs. metFORMIN 1,000 mg Take 1 tablet by 180 tablet 3 07/17/2019 Active tabletIndications: mouth 2 (two) Uncontrolled type 2 times daily with diabetes mellitus meals. without complication, with long-term current use of insulin documented as of this encounter (statuses as of 10/27/2019) Active Problems Problem Noted Date Gangrene 10/18/2019 [...] as of this encounter (statuses as of 10/27/2019) Immunizations Name Administration Dates Next Due Influenza [...] of this encounter Implants Implanted Type Area Service Delivery Management Consultant Device Shelf Model / Serial Identifier Expiration / Lot Date Log [id number] - Rickiy, Eddie Lens (Virtual) - 1 - [id number] 19.0d, Eddie Lens LENS Left: Eye Eddie 12/28/2015 [id number] 19.0D / Implanted: Qty: 1 on 06/29/2011 at [facility] [id number] / documented as of this encounter Results Not on filedocumented in this encounter Insurance Payer Benefit Plan / Subscriber ID Effective Phone Address T ype [facility] [id number] 2017-Pres Medica re HEALTHCARE - HEALTHCARE ent Adv HM O MANAGED DUAL COMPLETE MEDICARE HMO [facility] MEDICAID OF xxxxxxxxx 2019-Pres [phone] [place] [id number] [place] [address] documented as of this encounter Advance Directives Type Date Recorded 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
--- OUTSIDE RECORDS SUMMARY | 2019-10-30 10:23 | XMS REPORT | Summary of Care ---
:[address] [facility] Address [address] [place] [address] Care Team Providers Name Role Phone Vanesa Riggs MD Primary Care Provider [phone] Beni Cuenca MD Unavailable Reason for Referral Other (Routine) Status Reason Specialty Diagnoses / Referred By Referred To Procedures Contact Contact New Request Diagnoses Right foot pain Ischemic ulcer of toe, right, with unspecified severity Uncontrolled type 2 diabetes mellitus without complication, without long-term current use of insulin Maria Isabel Block Volpi, Elena, MD Procedures Discharge Follow-up: Specialty Provider SINAN HOLGUIN; [address] Month [id number] [place] [id number] Phone: (Routine) Status Reason Specialty Diagnoses / Referred By Referred To Procedures Contact Contact New Request ESAU-VASCULAR Diagnoses Right foot pain Ischemic ulcer of toe, right, with unspecified severity Maria Isabel Block SURGERY Procedures Discharge Follow-Up: Specialty Service ESAU-VASCULAR SURGERY; 3 Weeks MD Garret [address] [facility] [id number] [place] [address] (Routine) Status Reason Specialty Diagnoses / Referred By Referred To Procedures Contact Contact New Request Diagnoses Right foot pain Ischemic ulcer of toe, right, with unspecified severity Maria Isabel Block, Oneil, Procedures Discharge Follow-up: PCP VANESA RIGGS; 3-5 Days MD Vanesa Soriano, [address] [place] [id number] [place] [address] Phone: (Routine) Status Reason Specialty Diagnoses / Referred By Referred To Procedures Contact Contact New Request Case Management Procedures Maria Isabel Block, CONSULT/REFERRAL [address] [id number] [place] [address] (Routine) Status Reason Specialty Diagnoses / Referred By Referred To Procedures Contact Contact New Request Vascular Surgery Procedures Mejia, Tawana, TOSHIA MULTI LEVEL BY VASCULAR [facility] [address] [place] [address] Radiology Services (STAT) Status Reason Specialty Diagnoses / Referred By Referred To Procedures Contact Contact New Request Diagnostic Diagnoses Right foot pain Arley Hung, Radiology Procedures XR FOOT 3+ VW RIGHT XR FOOT <3 VW RIGHT [address] [place] [address] [address] [place] [address] Reason for Visit Reason Comments Foot Pain diabetic foot ulcer Auth/Cert Status Reason Specialty Diagnoses / Referred By Referred To Procedures Contact Contact Emergency Medicine [facility] Em ergency Dept [address] [facility] [place] [address] Fax: Encounter Details Date Type Department Care Team Description 10/17/2019 - Hospital Encounter Acute Care for the Juana Fisher, DUST PULLER [address] [facility] [address] [place] [phone] Osteomyelitis 10/21/2019 Elderly (DAVID 11D) Radha Jimenez MD [address] [place], [place] [id number] 712 [facility] KayladaisyZunilda MD [address] [place] [address] [place] [address] Allergies No Known Allergiesdocumented as of this encounter (statuses as of 10/21/2019) Medications Medication Sig Dispensed Refills Start Date End Date Status Blood-Glucose Meter Use BID, DX 1 Kit 0 11/07/2017 Active KitIndications: E11.9 (Brand Uncontrolled type 2 upon insurance diabetes mellitus approval) without complication, with long-term current use of insulin lancets-blood 1 Each 2 (two) 100 Each 11 11/07/2017 Active glucose strips 30 times daily. [...] insulin nortriptyline 25 mg Take 1 capsule 90 capsule 3 07/17/2019 Active capsuleIndications: by mouth at Numbness bedtime. Every night for pain in legs. metFORMIN 1,000 mg Take 1 tablet 180 tablet 3 07/17/2019 Active tabletIndications: by mouth 2 Uncontrolled type 2 (two) times diabetes mellitus daily with without meals. complication, with long-term current use of insulin glipiZIDE XL 10 mg Take 1 tablet 60 tablet 2 10/21/2019 Active 24 hr by mouth 2 tabletIndications: (two) times Uncontrolled type 2 daily before diabetes mellitus breakfast and without dinner. complication, without long-term current use of insulin aspirin 81 mg Take 1 tablet 30 tablet 2 10/22/2019 A ctive chewable by mouth tabletIndications: daily. Ischemic ulcer of toe, right, with unspecified severity, Uncontrolled type 2 diabetes mellitus without complication, without long-term current use of insulin, Gangrene, Essential hypertension, benign atorvastatin 40 mg Take 1 tablet 30 tablet 2 10/21/2019 Active tabletIndications: by mouth at Ischemic ulcer of bedtime. toe, right, with unspecified severity, Uncontrolled type 2 diabetes mellitus without complication, without long-term current use of insulin, Gangrene, Essential hypertension, benign clopidogreL 75 mg Take 1 tablet 30 tablet 2 10/22/2019 Active tabletIndications: by mouth Ischemic ulcer of daily. toe, right, with unspecified severity psyllium 3.4 gram Take 1 Packet 30 Packet 2 10/22/2019 Active packetIndications: by mouth Right foot pain daily. Polyethylene Glycol Take 1 Packet 30 Packet 2 10/22/2019 Active 3350 17 gram by mouth powderIndications: daily. Right foot pain HYDROcodone-acetami Take 1 tablet 28 tablet 0 10/21/2019 Active nophen 5-325 mg by mouth every tabletIndications: 6 (six) hours Right foot pain, as needed Ischemic ulcer of (right foot toe, right, with pain). unspecified severity, Gangrene pantoprazole 40 mg Take 1 tablet 30 tablet 2 10/22/2019 Active EC by mouth tabletIndications: daily. Right foot pain dextran Place 1 Drop 0 Discont inued 70-hypromellose in both eyes 0 (ARTIFICIAL once now. TEARS,[id number], ) 0.1-0.3 % glipiZIDE 10 mg Take 1 tablet 180 tablet 3 07/17/2019 10/21/19 2 Discontinued tabletIndications: by mouth 2 0 Uncontrolled type 2 (two) times diabetes mellitus daily before without breakfast and complication, with dinner. long-term current use of insulin gabapentin 300 mg Take 1 capsule 270 capsule 3 07/17/2019 05 Discontinued capsuleIndications: by mouth 3 0 Diabetic (three) times polyneuropathy daily. associated with type 2 diabetes mellitus Diclofenac Sodium Take 2-4 grams 100 g 3 07/17/2019 Discontinued (VOLTAREN) 1 % three times a 0 gelIndications: day as needed Right foot pain for pain lisinopril 10 mg TK 1 T PO D 0 07/19/2019 Discontinued tablet 0 pantoprazole 40 mg TK 1 T PO D 0 07/22/2019 05/05/20 2 Discontinued EC tablet 0 ibuprofen 200 mg Take 1 tablet 40 tablet 0 09/01/2019 10/17/19 2 Discontinued tabletIndications: by mouth every 0 Superficial 6 (six) hours. thrombosis of lower extremity, right ciprofloxacin HCl Take 1 tablet 20 tablet 0 09/08/2019 02 Discontinued 500 mg by mouth 2 0 tabletIndications: (two) times Sigmoid daily. diverticulitis ondansetron (ZOFRAN Take 1 tablet 12 tablet 0 09/08/201910/16 Discontinued ODT) 4 mg by mouth every 0 disintegrating 8 (eight) tabletIndications: hours as Sigmoid needed for diverticulitis Nausea and Vomiting (N/V) for up to 12 doses. documented as of this encounter (statuses as [...] Sign Reading Time Taken Comments Blood Pressure 157/63 10/21/2019 3:23 PM RUTH Roman not ified CDT Pulse 71 10/21/2019 3:23 PM CDT Temperature 36.6 C (97.8 F) 10/21/2019 3:23 PM CDT Respiratory Rate 18 10/21/2019 3:23 PM CDT Oxygen Saturation 98% 10/21/2019 3:23 PM CDT Inhaled Oxygen Concentration - - Weight 68 kg (150 lb) 10/17/2019 12:08 PM CDT Height 170.2 cm (5' 7") 10/17/2019 12:08 PM CDT Body Mass Index 23.49 10/17/2019 12:08 PM CDT documented in this encounter Discharge Instructions AttachmentsThe following attachments cannot be sent through Care Everywhere. Clopidogrel tablets (Albanian)Osteomyelitis, Discharge Instructions for (Albanian) Aspirin, ASA oral tablets (Albanian)Glipizide Extended-release tablets (Albanian) Atorvastatin tablets (Albanian)Acetaminophen; Hydrocodone tablets or capsules (Albanian)documented in this encounter Progress Notes Maulik Saavedra MD - 10/21/2019 10:15 AM CDT Orthopedic Surgery Progress Note Date of Service: 10/21/2019 10:15 Subjective: Maria Isabel Stacy is a 74 year old female with right third toe necrosis. 24 hour events: No acute events VSS Afebrile Objective: Temp: [36.7 C (98 F)-36.8 C (98.3 F)] Pulse: [66-80] Resp: [18] BP: (131-152)/(64-78) General: Awake,no acute distress Cardiac: Regular rate Pulmonary: Breath sounds present bilaterally, unlabored Abdomen: Soft, nontender Extremity: Right lower extremity - Necrosis of the distal right third toe - Mild TTP - Motor intact TA/GS/EHL/FHL - Sensation grossly intact to light touch, diminished on the plantar surface of bilateral feet LABORATORY WBC x10^3 (/CMM) Date Value 08/31/2011 10.1 (H) 04/26/2011 8.3 WBC (10*3/L) Date Value 10/18/2019 7.52 10/17/2019 9.19 HGB Date Value 10/18/2019 11.5 g/dL (L) 10/17/2019 12.5 g/dL 09/08/2019 12.8 g/dL 08/31/2011 13.8 G/DL 04/26/2011 13.8 G/DL 11/09/2009 13.3 G/DL PLT x10^3 (/CMM) Date Value 08/31/2011 349 04/26/2011 284 PLT (10*3/L) Date Value 10/18/2019 253 10/17/2019 309 HCT (%) Date Value 10/18/2019 35.7 08/31/2011 39.1 No intake/output data recorded. Assessment: Maria Isabel Stacy is a 74 year old female with right third toe necrosis. Afebrile and hemodynamically stable. Plan: No acute orthopedic intervention WBAT right right foot Can follow up with vascular surgery as an outpaitent Maulik Saavedra MD PGY1, Orthopedic Surgery Azeb Schaeffer PT - 10/20/2019 11:38 AM CDT10/20/2019 11:38 AM Physical Therapy Note PT consult received and chart reviewed. Attempted to see patient for initial evaluation, however, patient currently away from unit for procedure. PT will attempt another time as schedule permits. Azeb Kowalski PT, DPT Pager Number: [phone] Total time treatments:0 Total treatment time:0 Aye Murdock DO - 10/20/2019 6:04 AM CDT [facility] Progress Note Date of Service: 10/20/2019 06:04 Chief Complaint: foot pain 24-HOUR EVENTS: NAEO SUBJECTIVE: Patient reports right foot pain when she walks. Denies fever, chill, SOB, chest pain, and abdominal pain. PHYSICAL EXAM: Vitals: 10/19/19 1935 10/19/19 2319 10/19/19 2326 10/20/19 0545 BP: (!) 149/72 113/58 (!) 157/66 (!) 145/62 Pulse: 69 83 69 64 Resp: 18 18 18 18 Temp: 36.6 C (97.9 F) 37.8 C (100.1 F) 36.3 C (97.4 F) 36.6 C (97.9 F) TempSrc: Oral Oral Oral Oral SpO2: 100% 95% 97% 97% Weight: Height: Intake/Output Summary (Last 24 hours) at 10/20/2019 0604 Last data filed at 10/19/2019 1935 Gross per 24 hour Intake 120 ml Output Net 120 ml General: alert and oriented x 4; no apparent distress HEENT:anicteric sclera; moist mucous membranes Lungs: clear to auscultation bilaterally Cardio: RRR Abdomen: soft; non-tender; non-distended; normoactive bowel sounds Extremities: No BLE edema. Bilateral feet warm to touch. Right 3rd toe with black, dry eschar. LABS/IMAGING - reviewed, pertinent results as below: Reviewed ASSESSMENT/PLAN Maria Isabel Stacy is a 74 year old female admitted to the hospital with: HTN | HLD Diabetic Neuropathy Type 2 Diabetes Mellitus (Hgb A1c 11.3 on 07/17/19) Dry Gangrene | Osteomyelitis of the Right Third Toe Patient with Type 2 Dm and nonhealing wound likely progressing to osteomyelitis. Will hold ABX and will need likely bone biopsy per orthopedic surgery/podiatry. High intensity statin therapy started given ASCVD score of 30.1% and hx of diabetes. Currently pending right foot MRI and TOSHIA. Patient never had TTE done before. Will check as patient has hx of DM and HTN, and will also check for vegetation as well. - f/u vascular surgery recs - outpatient f/u - TTE to rule out vegetation - EKG to rule out a-fib - f/u orthopaedic surgery recs - R foot MRI - TOSHIA RLE - CBC, BMP, Mg qdaily - c/w ASA 81 mg qdaily - c/w atorvastatin 40 mg qhs - c/w lantus 5 u QHS, aspart 2 u TIDAC, aspart SSI - c/w zofran Q4HPRN for nausea/vomiting - c/w Tylenol and [place] PRN Pain - c/w miralax, colace, and metamucil - PT/OT - hold antibiotic therapy (unless patient become febrile) Curtis-Phillip Grier DO Internal Medicine PGY-1 [place] Team Pager # [phone] END OF DAILY PROGRESS NOTE HOSPITAL COURSE Maria Isabel Stacy is a 74 year old female with a PMH of DM2 who presents with a right foot pain. Xray showing osteomyelitis. Ortho consulted, MRI foot ordered. Consulted vascular surgery, recommended outpatient f/u only. Multilevel TOSHIA pending. CURRENT MEDICATIONS - reviewed. Current Facility-Administered Medications Medication Dose Route Frequency Last Rate Last Dose insulin aspart RAPID (NOVOLOG U-100 INSULIN ASPART) injection 2 Units 2 Units Subcutaneous TIDAC insulin glargine (LANTUS U-100) injection 5 Units 5 Units Subcutaneous QHS 5 Units at 10/19/19 2327 acetaminophen (TYLENOL) tablet 325 mg 325 mg Oral Q6H 325 mg at 10/20/19 0547 docusate (COLACE) capsule 100 mg 100 mg Oral DAILY 100 mg at 10/19/19 0847 HYDROcodone-acetaminophen (NORCO 5) 5-325 mg tablet 1 tablet 1 tablet Oral Q6HPRN 1 tablet at10/19/19 1214 Polyethylene Glycol 3350 (MIRALAX) powder 17 g 17 g Oral DAILY 17 g at 10/19/19 0847 aspirin chewable tablet 81 mg 81 mg Oral DAILY 81 mg at 10/19/19 0847 atorvastatin (LIPITOR) tablet 40 mg 40 mg Oral QHS 40 mg at 10/19/19 193 heparin (porcine) injection 5,000 Units 5,000 Units Subcutaneous Q12H 5,000 Units at 10/18/201832 nortriptyline (PAMELOR) capsule 25 mg 25 mg Oral QHS 25 mg at 10/19/19 193 ondansetron (ZOFRAN (PF)) injection 4 mg 4 mg Slow IV Push Q6HPRN pantoprazole (PROTONIX) EC tablet 40 mg 40 mg Oral DAILY 40 mg at 10/19/19 0847 Sliding Scale Insulin - Aspart (NOVOLOG) + Fsbg Testing Subcutaneous Q6H 1 Units at 10/19/200448 Associated attestation - Maria Isabel Block MD - 10/20/2019 4:31 PM CDTI personally examined the patient and agree with Aye's note as written . I actively participated in the decision-making process. Please see the resident's note for additional details. Maria Isabel Hassan MD Pager /call [phone] Desmond Funez MD - 10/19/2019 5:26 PM CDTBrief Note: Maria Isabel Stacy is a 74 year old female admitted for right foot OM with MRI pending; A1C on admission 10.8 with BG trending 250-350s requiring 10 Us SSI yesterday; Will start 5 Us Lantus QHS and Novolog 2 Us TIDAC for control. Goal BG 140-180. Desmond Funez MD Internal Medicine PGY-3 [place] Team Doctor # [id number] Pager: arisHossein MD - 10/19/2019 7:53 AM CDTOrtho Brief Update Note: WBAT to Right foot; no limitations from orthopedics surgery. Hossein Rubio MD 10/19/2019 7:55 AM Yaima colorado PT - 10/19/2019 7:45 AM CDTPT Note: Consult received and EPIC reviewed. Per chart review, pt is pending MRI of the foot recommended by Ortho. PT will hold to ensure safety with OOB mobility. Please provide weight bearing status. Yaima Garland PT, DPT Pager [phone] Pritesh Benavides MD - 10/19/2019 6:48 AM CDT [facility] Progress Note Date of Service: 10/19/2019 06:48 Chief Complaint: foot pain 24-HOUR EVENTS: NAEO SUBJECTIVE: Patient reporting mild foot pain, although able to walk. No f/c, n/v/d. PHYSICAL EXAM: Vitals: 10/18/19 1550 10/18/19 1931 10/18/19 2312 10/19/19 0337 BP: (!) 195/75 131/50 138/63 133/55 Pulse: 65 62 63 58 Resp: 18 18 18 18 Temp: 36.6 C (97.8 F) 36.7 C (98 F) 36.9 C (98.5 F) 36.4 C (97.6 F) TempSrc: Oral Oral Oral Oral SpO2: 98% 99% 97% 99% Weight: Height: Intake/Output Summary (Last 24 hours) at 10/19/2019 0648 Last data filed at 10/18/2019 1923 Gross per 24 hour Intake 800 ml Output Net 800 ml General: alert and oriented x 4; no apparent distress HEENT: pupils equal, round, reactive to light; extraocular movements intact; oropharynx clear; moistmucous membranes Lungs: clear to auscultation bilaterally Cardio: S1, S2 normal; no murmurs, rubs or gallops Abdomen: soft; non-tender; non-distended; normoactive bowel sounds Extremities: no cyanosis, clubbing or edema. Pulses intact bilaterally. LABS/IMAGING - reviewed, pertinent results as below: Reviewed ASSESSMENT/PLAN Maria Isabel Stacy is a 74 year old female admitted to the hospital with: HTN | HLD Diabetic Neuropathy Type 2 Diabetes Mellitus (Hgb A1c 11.3 on 07/17/19) Dry Gangrene | Osteomyelitis of the Right Third Toe Patient with Type 2 Dm and nonhealing wound likely progressing to osteomyelitis. Will hold ABX and will need bone biopsy per orthopedic surgery/podiatry. As well patient needs to begin high intensity statin therapy given ASCVD score of 30.1% and hx of diabetes. Will consult vascular surgery today. - consult vascular surgery - outpatient f/u - consult orthopaedic surgery - R foot MRI - CBC, BMP, Mg qdaily - c/w ASA 81 mg qdaily - c/w atorvastatin 40 mg qdaily - c/w zofran Q4HPRN Nausea/Vomiting - c/w Tylenol, tramadol, [place] PRN Pain - hold antibiotic therapy (unless patient become febrile) Pritesh Benavides MD Internal Medicine, PGY-1 [place] Team Pager# [phone] END OF DAILY PROGRESS NOTE HOSPITAL COURSE Maria Isabel Stacy is a 74 year old female with a PMH of DM2 who presents with a right foot pain. Xray showing osteomyelitis. Ortho consulted, MRI foot ordrered. Consulted vascular surgery, recommended outpatient f/u only. Multilevel TOSHIA pending. CURRENT MEDICATIONS - reviewed. Current Facility-Administered Medications Medication Dose Route Frequency Last Rate Last Dose acetaminophen (TYLENOL) tablet 325 mg 325 mg Oral Q6H 325 mg at 10/19/19 0609 docusate (COLACE) capsule 100 mg 100 mg Oral DAILY HYDROcodone-acetaminophen (NORCO 5) 5-325 mg tablet 1 tablet 1 tablet Oral Q6HPRN 1 tablet at10/18/19 1142 Polyethylene Glycol 3350 (MIRALAX) powder 17 g 17 g Oral DAILY aspirin chewable tablet 81 mg 81 mg Oral DAILY 81 mg at 10/18/19 0931 atorvastatin (LIPITOR) tablet 40 mg 40 mg Oral QHS 40 mg at 10/18/19 1923 heparin (porcine) injection 5,000 Units 5,000 Units Subcutaneous Q12H 5,000 Units at nortriptyline (PAMELOR) capsule 25 mg 25 mg Oral QHS 25 mg at 10/18/19 192 ondansetron (ZOFRAN (PF)) injection 4 mg 4 mg Slow IV Push Q6HPRN pantoprazole (PROTONIX) EC tablet 40 mg 40 mg Oral DAILY 40 mg at 10/18/19 0931 Sliding Scale Insulin - Aspart (NOVOLOG) + Fsbg Testing Subcutaneous Q6H 1 Units at Associated attestation - Radha Jimenez MD - 10/19/2019 6:11 PM CDTI saw and examined the patient on 10-19-2019 and agree with the resident's note as written by Dr Benavides. I actively participated in the decision-making process. Please see the resident's note for additional details. Orin Qiu RN - 10/18/2019 1:00 PM CDTI, Tawana Mejia MD, after reviewing this case with the Aeronautical Test Engineer, I concur this case is appropriate for inpatient admission. The change to inpatient admission is based on the level of care this patient is receiving, medical necessity, risks associated and the expected duration of stay. The inpatient admission order has been entered. Orin Qiu RN, BSN Utilization Review Nurse Department of Care Management [facility] P: [phone] F: [phone] Associated attestation - Tawana Mjeia MD - 10/18/2019 3:01 PM CDTDiscussed and agree case appropriate for inpatient admission as stated. Tawana Mejia MD 10/18/2019 3:01 PM James Crzu MD - 10/18/2019 12:37 PM CDT [facility] Progress Note Date of Service: 10/18/2019 12:37 Chief Complaint: foot pain 24-HOUR EVENTS: -admitted to [place] SUBJECTIVE: Patient states she has right foot pain, however better this morning as she is able to walk. No fevers, chills, n/v/d. PHYSICAL EXAM: Vitals: 10/18/19 0600 10/18/19 0729 10/18/19 1041 10/18/19 1153 BP: 117/55 (!) 142/68 (!) 181/75 Pulse: 76 63 64 62 Resp: 18 18 16 16 Temp: 36.8 C (98.2 F) 36.8 C (98.2 F) 35.9 C (96.7 F) TempSrc: Oral Oral Axillary SpO2: 100% 100% 98% 93% Weight: Height: Intake/Output Summary (Last 24 hours) at 10/18/2019 1237 Last data filed at 10/17/20192054 Gross per 24 hour Intake 200 ml Output Net 200 ml General: alert and oriented x 4; no apparent distress HEENT: pupils equal, round, reactive to light; extraocular movements intact; oropharynx clear; moistmucous membranes Lungs: clear to auscultation bilaterally Cardio: S1, S2 normal; no murmurs, rubs or gallops Abdomen: soft; non-tender; non-distended; normoactive bowel sounds Extremities: no cyanosis, clubbing or edema. Pulses intact bilaterally. LABS/IMAGING - reviewed, pertinent results as below: Reviewed ASSESSMENT/PLAN Maria Isabel Stacy is a 74 year old female admitted to the hospital with: HTN | HLD Diabetic Neuropathy Type 2 Diabetes Mellitus (Hgb A1c 11.3 on 07/17/19) Dry Gangrene | Osteomyelitis of the Right Third Toe Patient with Type 2 Dm and nonhealing wound likely progressing to osteomyelitis. Will hold ABX and will need bone biopsy per orthopedic surgery/podiatry. As well patient needs to begin high intensity statin therapy given ASCVD score of 30.1% and hx of diabetes. Will consult vascular surgery today. Plan -consult vascular surgery - vitals Q4H, O2pp - CBC, BMP, Mg qdaily - TSH, Hgb A1c, Lipid Panel - ESR, CRP, ABIs and MRI of the Right Foot - c/w ASA 81 mg qdaily - c/w atorvastatin 40 mg qdaily - c/w zofran Q4HPRN Nausea/Vomiting - c/w Tylenol, tramadol, [place] PRN Pain - hold antibiotic therapy (unless patient become febrile) - consult orthopedic surgery, appreciate recs James Cruz MD Internal Medicine, PGY-2 Pager: [phone] # [phone] END OF DAILY PROGRESS NOTE HOSPITAL COURSE Maria Isabel Stacy is a 74 year old female with a PMH of DM2 who presents with a right foot pain. Xray showing osteomyelitis. Ortho consulted. MRI foot pending. Consulted vascular surgery. MultilevelABI pending. CURRENT MEDICATIONS - reviewed. Current Facility-Administered Medications Medication Dose Route Frequency Last Rate Last Dose acetaminophen (TYLENOL) tablet 325 mg 325 mg Oral Q6H 325 mg at 10/18/19 1144 [START ON 10/19/2019] docusate (COLACE) capsule 100 mg 100 mg Oral DAILY HYDROcodone-acetaminophen (NORCO 5) 5-325 mg tablet 1 tablet 1 tablet Oral Q6HPRN 1 tablet at10/18/19 1142 [START ON 10/19/2019] Polyethylene Glycol 3350 (MIRALAX) powder 17 g 17 g Oral DAILY aspirin chewable tablet 81 mg 81 mg Oral DAILY 81 mg at 10/18/19 0931 atorvastatin (LIPITOR) tablet 40 mg 40 mg Oral QHS 40 mg at 10/17/19 205 heparin (porcine) injection 5,000 Units 5,000 Units Subcutaneous Q12H 5,000 Units at 10/17/200831 nortriptyline (PAMELOR) capsule 25 mg 25 mg Oral QHS ondansetron (ZOFRAN (PF)) injection 4 mg 4 mg Slow IV Push Q6HPRN pantoprazole (PROTONIX) EC tablet 40 mg 40 mg Oral DAILY 40 mg at 10/18/19 0931 Sliding Scale Insulin - Aspart (NOVOLOG) + Fsbg Testing Subcutaneous Q6H 4 Units at 10/17/201056 Associated attestation - Radha Jimenez MD - 10/19/2019 6:12 PM CDTI saw and examined the patient on 10-18-2019 and agree with the resident's note as written by Dr Cruz I actively participated in the decision-making process. Please see the resident's note for additional details. Carmita Wong SW - 10/18/2019 12:34 PM CDTCare Management Social Functional Assessment Patient Name: Maria Isabel Stacy Age: [age] year old Sex: female Patient's Previous Admission Date at [facility]: 05/29/2016 Current diagnosis and co-morbidities: No admission diagnoses are documented for this encounter. Readmission Questions: Was patient discharged from any acute care hospital within the last 30 days: No Social Functional Assessment: Primary language spoken/preferred: Albanian Mental Status: Alert & Oriented to Person,Place & Time Information given by: Self("broken Chinese") Patient's support system: Child Name and number of support system: son Josue Stacy [phone] Primary Family And Divorce Legal Assistant: Self MPOA: No Living Arrangement: Home: single story Address of living arrangement : [address] [facility] in [place] [id number] Persons living in home: Self;Other Functional status-baseline personal care: Independent Baseline functional status- driving: Dependent Baseline functional status- grocery shopping: Independent Functional status-baseline housekeeping: Independent Functional status-baseline meal prep: Independent Current functional status same as prior: Yes Do you have a PCP?: Yes Name of PCP: Vanesa Henriquez [facility] Care Agency: No Provider Services: No DME Company: No Equipment: Rollator Hemodialysis: No Community resources utilized: SSA/SSI/Medicaid Funding Resources: Medicare Replacement;Medicaid Prescription coverage plan: [facility] meds are filled: (local [facility]) Anticipated services prior to disharge: Continue Medical Eval;Lab Values;PT/OT/ST Expected mode of discharge transportation: Same as support system Additional info required for discharge planning: Pending medical evaluation;Pending P/T O/T recommendation Recommended discharge plan: Home;Home with new Home Health Any issues or concerns with obtaining/affording your medications at home: no. Are you or your support system able to grain picker medications at discharge: yes. Describe: no issues. SFA Complete: Social Functional Assessment complete: Yes Alcohol Use Screening (AUDIT-C) How often do you have a drink containing alcohol?: Never SCORE: 0 Role of Care Management explained. Sheba Wong, [facility] [phone] (personal cell #/not for patient use) [address] [phone] Care Mgmt Dept Martir Jones MD - 10/17/2019 8:08 PM CDT ORTHOPEDIC SURGERY CONSULT 10/17/2019 Reason for consult: Right foot pain HISTORY OF PRESENT ILLNESS Maria Isabel Stacy is a 74 year old female with a PMH of DM2 who presents with a right foot pain. She states the pain started approximately 2 months go when a tool fell on her right foot. Since then her right third toe has progressively become more necrotic and painful. She denies any fevers, chills, nausea, vomiting, and does not appear to be in any distress. PAST HISTORIES Past Medical History: Diagnosis Date Cataracts, bilateral 2009 Diabetes mellitus 2005 Diabetic neuropathy HLD (hyperlipidemia) HTN (hypertension) Right wrist fracture 2008 Shoulder fracture, right 2008 Past Surgical History: Procedure Laterality Date COLONOSCOPY ESOPHAGOGASTRODUODENOSCOPY N/A 11/22/2018 Surgeon: La Nena Rivas MD; Location: [facility] OR Location PHACOEMULSIFICATION OF CATARACT WITH INTRAOCULAR LENS IMPLANT 06/29/2011 Surgeon:TAWANDA SCHMID; Location:[facility] OR LOCATION CA OPEN TREATMENT RADIAL SHAFT FRACTURE 2007 CA UPPER ARM/ELBOW SURGERY UNLISTED Right SHOULDER ARTHROPLASTY 2007 Family History Problem Relation Age of Onset Diabetes Mother Breast Cancer Mother dx at 79 Hypertension Mother Heart Father congenital heart disease Neurological Sister numbness and tingling in hands and feet of all sisters Diabetes Brother MEDICATIONS Current Facility-Administered Medications Medication Dose Route Frequency Last Rate Last Dose acetaminophen (TYLENOL) tablet 650 mg 650 mg Oral Q6HPRN [START ON 10/18/2019] aspirin chewable tablet 81 mg 81 mg Oral DAILY atorvastatin (LIPITOR) tablet 40 mg 40 mg Oral QHS heparin (porcine) injection 5,000 Units 5,000 Units Subcutaneous Q12H HYDROcodone-acetaminophen (NORCO) 10-325 mg tablet 1 tablet 1 tablet Oral Q6HPRN nortriptyline (PAMELOR) capsule 25 mg 25 mg Oral QHS ondansetron (ZOFRAN (PF)) injection 4 mg 4 mg Slow IV Push Q6HPRN [START ON 10/18/2019] pantoprazole (PROTONIX) EC tablet 40 mg 40 mg Oral DAILY Sliding Scale Insulin - Aspart (NOVOLOG) + Fsbg Testing Subcutaneous Q6H traMADol (ULTRAM) tablet 50 mg 50 mg Oral Q8HPRN ALLERGIES No Known Allergies SOCIAL Social History Occupational History 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, 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 Tobacco Use Smoking status: Never Smoker Smokeless tobacco: Never Used Substance and Sexual Activity Alcohol use: Not Currently Comment: occasional Drug use: No Sexual activity: Yes Partners: Male Lives in [address] [place] [phone] REVIEW OF SYSTEMS Constitutional: no fever, no chills Eyes: no changes in vision ENMT: no sore throat, no congestion Cardiovascular: no chest pain Respiratory: no cough, no shortness of breath Gastrointestinal: no nausea, no vomiting, no diarrhea Integumentary: no itching, no rashes Neurological: no headaches, no seizures Hematologic/lymphatic: no bruising or bleeding tendencies Except as mentioned above PHYSICAL EXAMINATION Vitals: BP (!) 145/72 | Pulse 86 | Temp 37 C (98.6 F) (Oral) | Resp 18 | Ht 1.702 m (5' 7") | Wt 68kg (150 lb) | SpO2 100% | BMI 23.49 kg/m General: Awake, no acute distress, well-nourished Eyes: Extraocular movements intact Respiratory: Breath sounds present, nonlabored, symmetrical chest expansion Cardio: Regular rate GI: Abdomen soft, nondistended, nontender Skin: Warm and dry, No rashes Neurologic: No focal deficits Psychiatric: Appropriate affect Musculoskeletal: Right lower extremity - necrosis at the third toe distally - Mild TTP at third toe - Motor intact TA/GS/EHL/FHL - Sensation grossly intact to light touch, slightly diminished on the plantar surface of the right and left foot bilaterally - Warm and well perfused IMAGING Xr Foot 3+ Vw Right Result Date: 10/17/2019 Third toe ulceration with radiographic findings consistent with distal phalangeal osteomyelitis. Preliminary Report Dictated by Resident: Nelida Jarquin I, Wesley Neil MD., have reviewed this study and agree with the above report. ASSESSMENT Maria Isabel Stacy is a 74 year old female with poorly controlled DM2 with a necrotic right third toe/dry gangrene PLAN - No acute orthopedic intervention - Right foot MRI - TOSHIA right lower extremity - ESR, CRP - Given intact sensation and poor vascularity of bilateral lower extremities possibly consider vascular surgery consultation - Independently reviewed current and previous imaging for comparison, if applicable, as well as relevant lab results. I discussed my findings and educated patient on the condition present. All questions answered to patient's satisfaction. - Will obtain further imaging if pain persists despite therapy - Advised patient to contact us with questions/concerns - All findings and diagnoses were discussed with patient at time of visit. Patient states they understand and are in agreement with the treatment plan at this time. Maulik Saavedra MD 10/17/2019 20:[address] Saavedra, I personally examined the patient, and personally performed a history and physical examination. Furthermore, I personally discussed the subsequent workup/treatment recommendations with the patient. Finally, I agree with resident's note as written. documented in this encounter Plan of Treatment Name Type Priority Associated Diagnoses Order S chedule EKG-12 LEAD ROUTINE HEART STATION Routine ONCE fo r 1 Occurrences starting 2019 until 0 Health Maintenance Due Date Last Done Comments [...] of this encounter Implants Implanted Type Area Loft Rigger Device Shelf Model / Serial Identifier Expiration / Lot Date Log [id number] - Tray, Eddie Lens (Virtual) - 1 - [id number] 19.0d, Eddie Lens LENS Left: Eye Eddie 12/28/2015 [id number] 19.0D / Implanted: Qty: 1 on 06/29/2011 at [facility] [id number] / documented as of this encounter Procedures Procedure Name Priority Date/Time Associated Comments Diagnosis POCT GLUCOSE Routine 10/21/2019 4:16 Results for this (AUTOMATED) PM CDT procedure are i n the results section. POCT GLUCOSE Routine 10/21/2019 12:42 Results for this (AUTOMATED) PM CDT procedure are i n the results section. POCT GLUCOSE Routine 10/21/2019 6:07 Results for this (AUTOMATED) AM CDT procedure are i n the results section. POCT GLUCOSE Routine 10/20/2019 9:51 Results for this (AUTOMATED) PM CDT procedure are i n the results section. POCT GLUCOSE Routine 10/20/2019 6:42 Results for this (AUTOMATED) PM CDT procedure are i n the results section. POCT GLUCOSE Routine 10/20/2019 3:42 Results for this (AUTOMATED) PM CDT procedure are i n the results section. EKG-12 LEAD Routine 10/20/2019 2:37 PM CDT ECHO ROUTINE W/DOPPLER Routine 10/20/2019 11:30 Ischemic ulcer of COLOR AM CDT toe, right, with unspecified severity TOSHIA MULTI LEVEL BY Routine 10/20/2019 10:19 VASCULAR LAB AM CDT POCT GLUCOSE Routine 10/20/2019 8:43 Results for this (AUTOMATED) AM CDT procedure are i n the results section. POCT GLUCOSE Routine 10/20/2019 5:44 Results for this (AUTOMATED) AM CDT procedure are i n the results section. POCT GLUCOSE Routine 10/19/2019 11:23 Results for this (AUTOMATED) PM CDT procedure are i n the results section. POCT GLUCOSE Routine 10/19/2019 6:23 Results for this (AUTOMATED) PM CDT procedure are i n the results section. POCT GLUCOSE Routine 10/19/2019 12:09 Results for this (AUTOMATED) PM CDT procedure are i n the results section. POCT GLUCOSE Routine 10/19/2019 11:53 Results for this (AUTOMATED) AM CDT procedure are i n the results section. POCT GLUCOSE Routine 10/19/2019 5:57 Results for this (AUTOMATED) AM CDT procedure are i n the results section. POCT GLUCOSE Routine 10/18/2019 11:09 Results for this (AUTOMATED) PM CDT procedure are i n the results section. POCT GLUCOSE Routine 10/18/2019 6:12 Results for this (AUTOMATED) PM CDT procedure are i n the results section. POCT GLUCOSE Routine 10/18/2019 11:51 Results for this (AUTOMATED) AM CDT procedure are i n the results section. CBC WITH DIFFERENTIAL Routine 10/18/2019 5:50 Re sults for this AM CDT procedure are i n the results section. ACTIVATED PARTIAL Routine 10/18/2019 5:50 Result s for this THRMPLAS ANGELA AM CDT procedure are i n the results section. PROTHROMBIN TIME / INR Routine 10/18/2019 5:50 R esults for this AM CDT procedure are i n the results section. CBC WITH DIFFERENTIAL Routine 10/18/2019 5:50 Re sults for this AM CDT procedure are i n the results section. BASIC METABOLIC PANEL Routine 10/18/2019 5:50 Re sults for this (NA, K, CL, CO2, AM CDT procedure a re in GLUCOSE, BUN, the results CREATININE, CA) section. MAGNESIUM Routine 10/18/2019 5:50 Results for this AM CDT procedure are i n the results section. POCT GLUCOSE Routine 10/18/2019 5:42 Results for this (AUTOMATED) AM CDT procedure are i n the results section. POCT GLUCOSE Routine 10/17/2019 11:52 Results for this (AUTOMATED) PM CDT procedure are i n the results section. POCT GLUCOSE Routine 10/17/2019 7:54 Results for this (AUTOMATED) PM CDT procedure are i n the results section. LIPID PANEL Add-on 10/17/2019 12:32 Results for this (12284)(TOTAL PM CDT procedure are in CHOLESTEROL, the results TRIGLYCERIDES, HDL) section. THYROID STIMULATING Add-on 10/17/2019 12:32 Resu lts for this HORMONE PM CDT procedure are i n the results section. C-REACTIVE PROTEIN STAT 10/17/2019 12:32 Right foot pain Re sults for this PM CDT procedure are i n the results section. XR FOOT 3+ VW RIGHT STAT 10/17/2019 12:24 Right foot pain Results for this PM CDT procedure are i n the results section. CORONAVIRUS COVID-19 STAT 10/17/2019 12:15 Right foot pain Results for this TESTING PM CDT procedure are i n the results section. CBC WITH DIFFERENTIAL STAT 10/17/2019 12:15 Right foot pain Results for this PM CDT procedure are i n the results section. GLYCOSYLATED Add-on 10/17/2019 12:15 Results for this HEMOGLOBIN (A1C) PM CDT procedure a re in the results section. CBC WITH DIFFERENTIAL STAT 10/17/2019 12:15 Right foot pain Results for this PM CDT procedure are i n the results section. SEDIMENTATION RATE STAT Add-On 10/17/2019 12:15 Right foot pain Re sults for this PM CDT procedure are i n the results section. COMP. METABOLIC PANEL STAT 10/17/2019 12:15 Right foot pain Results for this (15577) PM CDT procedure are i n the results section. EMERGENCY SERVICES Routine 10/17/2019 12:01 AGREEMENTS AND AM CDT AUTHORIZATIONS documented in this encounter Results POCT GLUCOSE (AUTOMATED) (10/21/2019 4:16 PM CDT) Pathologist Sig nature POCT GLU 220 (H) 70 - 110 mg/dL [facility] Specimen Blood Performing Organization Address [facility] Phone Number [facility] CLIA: [id number], [address] [place] [address] [facility] POCT GLUCOSE (AUTOMATED) (10/21/2019 12:42 PM CDT) Pathologist Sig nature POCT GLU 306 (H) 70 - 110 mg/dL [facility] Specimen Blood Performing Organization Address City/[facility] Phone Number [facility] CLIA: [id number], [address] [place] [address] [facility] POCT GLUCOSE (AUTOMATED) (10/21/2019 6:07 AM CDT) Pathologist Sig nature POCT GLU 180 (H) 70 - 110 mg/dL [facility] Specimen Blood Performing Organization Address City/[facility] Phone Number [facility] CLIA: [id number], [address] [place], [place] [id number] [facility] POCT GLUCOSE (AUTOMATED) (10/20/2019 9:51 PM CDT) Pathologist Sig nature POCT GLU 206 (H) 70 - 110 mg/dL [facility] Specimen Blood Performing Organization Address [facility] Phone Number [facility] CLIA: [id number], [address] [place] [address] [facility] POCT GLUCOSE (AUTOMATED) (10/20/2019 6:42 PM CDT) Pathologist Sig nature POCT GLU 333 (H) 70 - 110 mg/dL [facility] Specimen Blood Performing Organization Address [facility] Phone Number [facility] CLIA: [id number], [address] [place] [address] [facility] POCT GLUCOSE (AUTOMATED) (10/20/2019 3:42 PM CDT) Pathologist Sig nature POCT GLU 212 (H) 70 - 110 mg/dL [facility] Specimen Blood Performing Organization Address [facility] Phone Number [facility] CLIA: [id number], [address] [place] [address] [facility] POCT GLUCOSE (AUTOMATED) (10/20/2019 8:43 AM CDT) Pathologist Sig nature POCT GLU 148 (H) 70 - 110 mg/dL [facility] Specimen Blood Performing Organization Address [facility] Phone Number [facility] CLIA: [id number], [address] [place] [address] [facility] POCT GLUCOSE (AUTOMATED) (10/20/2019 5:44 AM CDT) Pathologist Sig nature POCT GLU 176 (H) 70 - 110 mg/dL [facility] Specimen Blood Performing Organization Address [facility] Phone Number [facility] CLIA: [id number], [address] [place] [address] [facility] POCT GLUCOSE (AUTOMATED) (10/19/2019 11:23 PM CDT) Pathologist Sig nature POCT GLU 260 (H) 70 - 110 mg/dL [facility] Specimen Blood Performing Organization Address [facility] Phone Number [facility] CLIA: [id number], [address] [place] [address] [facility] POCT GLUCOSE (AUTOMATED) (10/19/2019 6:23 PM CDT) Pathologist Sig nature POCT GLU 314 (H) 70 - 110 mg/dL [facility] Specimen Blood Performing Organization Address [facility] Phone Number [facility] CLIA: [id number], [address] [place] [address] [facility] POCT GLUCOSE (AUTOMATED) (10/19/2019 12:09 PM CDT) Pathologist Sig nature POCT GLU 300 (H) 70 - 110 mg/dL [facility] Specimen Blood Performing Organization Address [facility] Phone Number [facility] CLIA: [id number], [address] [place] [address] [facility] POCT GLUCOSE (AUTOMATED) (10/19/2019 11:53 AM CDT) Pathologist Sig nature POCT GLU 289 (H) 70 - 110 mg/dL [facility] Specimen Blood Performing Organization Address [facility] Phone Number [facility] CLIA: [id number], [address] [place] [address] [facility] POCT GLUCOSE (AUTOMATED) (10/19/2019 5:57 AM CDT) Pathologist Sig nature POCT GLU 199 (H) 70 - 110 mg/dL [facility] Specimen Blood Performing Organization Address [facility] Phone Number [facility] CLIA: [id number], [address] [place] [address] [facility] POCT GLUCOSE (AUTOMATED) (10/18/2019 11:09 PM CDT) Pathologist Sig [facility] POCT GLU 250 (H) 70 - 110 mg/dL [facility] Specimen Blood Performing Organization Address City/[facility] Phone Number [facility] CLIA: [id number], [address] [place] [address] [facility] POCT GLUCOSE (AUTOMATED) (10/18/2019 6:12 PM CDT) Pathologist Sig [facility] POCT GLU 268 (H) 70 - 110 mg/dL [facility] Specimen Blood Performing Organization Address City/[facility] Phone Number [facility] CLIA: [id number], [address] [place] [address] [facility] POCT GLUCOSE (AUTOMATED) (10/18/2019 11:51 AM CDT) Pathologist Sig [facility] POCT GLU 365 (H) 70 - 110 mg/dL [facility] Specimen Blood Performing Organization Address [facility] Phone Number [facility] CLIA: [id number], [address] [place] [address] [facility] CBC WITH DIFFERENTIAL (10/18/2019 5:50 AM CDT) Pathologist Sig nature WBC 7.52 4.30 - 11.10 [facility] 10*3/L SERVICES RBC 3.92 (L) 3.93 - 5.25 [facility] 10*6/L SERVICES HGB 11.5 (L) 11.6 - 15.0 [facility] g/dL SERVICES HCT 35.7 35.7 - 45.2 % [facility] SERVICES MCV 91.1 80.6 - 95.5 fL [facility] SERVICES MCH 29.3 25.9 - 32.8 pg [facility] SERVICES MCHC 32.2 31.6 - 35.1 [facility] g/dL SERVICES RDW-SD 40.6 39.0 - 49.9 fL [facility] SERVICES RDW-CV 12.3 12.0 - 15.5 % [facility] SERVICES PLT 253 166 - 358 [facility] 10*3/L SERVICES MPV 10.1 9.5 - 12.9 fL [facility] NRBC/100 WBC 0.0 0.0 - 10.0 /100 [facility] WBCs SERVICES NRBC x10^3 <0.01 10*3/L [facility] GRAN MAT (NEUT) % 55.1 % [facility] IMM GRAN % 0.10 % [facility] LYMPH % 34.8 % [facility] MONO % 6.0 % [facility] EOS % 3.7 % [facility] BASO % 0.3 % [facility] GRAN MAT x10^3(ANC) 4.14 1.88 - 7.09 [facility] 10*3/uL SERVICES IMM GRAN x10^3 <0.03 0.00 - 0.06 [facility] 10*3/uL SERVICES LYMPH x10^3 2.62 1.32 - 3.29 [facility] 10*3/uL SERVICES MONO x10^3 0.45 0.33 - 0.92 [facility] 10*3/uL SERVICES EOS x10^3 0.28 0.03 - 0.39 [facility] 10*3/uL SERVICES BASO x10^3 <0.03 0.01 - 0.07 [facility] 10*3/uL SERVICES Specimen Blood - ARM, RIGHT Performing Organization Address City/State/Zipcode Phone Number [facility] CLIA: [id number], [address] [place] [address] [address] [facility] Prothrombin Time / INR (10/18/2019 5:50 AM CDT) PROTIME PATIENT 10.7 10.1 - 12.6 [facility] Seconds SERVICES INR 0.9Comment: Normal [facility] INR <1.1; Warfarin SERVICES Therapeutic range 2.0 to 3.0 or 2.5 to 3.5, depending upon the indications. Specimen Blood - ARM, RIGHT Performing Organization Address City/State/Zipcode Phone Number [facility] CLIA: [id number], [address] [place] [address] [address] [facility] aPTT (10/18/2019 5:50 AM CDT) Pathologist Sig nature APTT Patient 25 (L) 26 - 36 Seconds [facility] SERVICES Specimen Blood - ARM, RIGHT Performing Organization Address City/[facility]/Zipcode Phone Number [facility] CLIA: [id number], [address] [place], [place] [address] [facility] Magnesium Serum (10/18/2019 5:50 AM CDT) Pathologist Sig nature MAGNESIUM 2.1 1.7 - 2.4 mg/dL [facility] SERVICES Specimen Blood - ARM, RIGHT Performing Organization Address [facility] Phone Number [facility] CLIA: [id number], [address] [place], [place] [address] [facility] Basic Metabolic Panel (NA, K, CL, CO2, GLUCOSE, BUN, CREATININE, CA) (10/18/2019 5:50 AM CDT) NA 135 135 - 145 [facility] mmol/L SERVICES K 4.6Comment: 3.5 - 5.0 [facility] Slight hemolysis mmol/L SERVICES CL 103 98 - 108 [facility] mmol/L SERVICES CO2 TOTAL 25 23 - 31 [facility] mmol/L SERVICES AGAP 7 2 - 16 [facility] SERVICES BUN 22Comment: Slight 7 - 23 mg/dL [facility] hemolysis SERVICES GLUCOSE 198 (H) 70 - 110 [facility] mg/dL SERVICES CREATININE 0.57 0.50 - 1.04 [facility] mg/dL SERVICES CALCIUM 8.4 (L) 8.6 - 10.6 [facility] mg/dL SERVICES eGFR Calculation 104.0 mL/min/1.73m2 [facility] (Non- SERVICES Moldovan) eGFR Calculation 126.0 mL/min/1.73m2 [facility] () SERVICES Specimen Blood - ARM, RIGHT Narrative Performed At Association of Glomerular Filtration Rate (GFR) and St aging [facility] SERVICES of Kidney Disease* + + +------- ------ + | GFR (mL/min/1.73 m2) | With Kidney Damage | Wi thout Kidney Damage + + +------- ------ + | >90 | Stage one | Normal + + +------- ------ + | 60-89 | Stage two | Decreased GFR + + +------- ------ + | 30-59 | Stage three | Stage three + + +------- ------ + | 15-29 | Stage four | Stage four + + +------- ------ + | <15 (or dialysis) | Stage five | Stage five + + +------- ------ + *Each stage assumes the associated GFR level has been in effect for at least three months. Stages 1 to 5, wit h or without kidney disease, indicate chronic kidney disease. Notes: Determination of stages one and two (with eGFR >59mL/min/1.73 m2) requires estimation of kidney damag e for at least three months as defined by structural or func tional abnormalities of the kidney, manifested by either: Pathological abnormalities or Markers of kidney damage (including abnormalities in the composition of the blo od or urine or abnormalities in imaging tests) . Performing Organization Address City/[facility]/Zipcode Phone Number [facility] CLIA: [id number], [address] [place] [address] [facility] POCT GLUCOSE (AUTOMATED) (10/18/2019 5:42 AM CDT) Pathologist Sig nature POCT GLU 202 (H) 70 - 110 mg/dL [facility] Specimen Blood Performing Organization Address [facility] Phone Number [facility] CLIA: [id number], [address] [place] [address] [facility] POCT GLUCOSE (AUTOMATED) (10/17/2019 11:52 PM CDT) Pathologist Sig nature POCT GLU 268 (H) 70 - 110 mg/dL [facility] Specimen Blood Performing Organization Address [facility] Phone Number [facility] CLIA: [id number], [address] [place] [address] [facility] POCT GLUCOSE (AUTOMATED) (10/17/2019 7:54 PM CDT) Pathologist Sig nature POCT GLU 342 (H) 70 - 110 mg/dL [facility] Specimen Blood Performing Organization Address [facility] Phone Number [facility] CLIA: [id number], [address] [place] [address] [facility] LIPID PANEL (91089)(TOTAL CHOLESTEROL, TRIGLYCERIDES, HDL) (10/17/2019 12:32 PM CDT) Pathologist Sig nature CHOL 197 120 - 200 mg/dL [facility] HDL 55 >50 mg/dL [facility] HDLC RATIO 3.6 <=4.5 [facility] TRIG 158 30 - 170 mg/dL [facility] LDL CHOL 110 <=160 mg/dL [facility] [facility] VLDL 32 5 - 60 mg/dL [facility] Specimen Blood - VENOUS Performing Organization Address City/[facility]/Zipcode Phone Number [facility] CLIA: [id number], [address] [place] [address] [facility] THYROID STIMULATING HORMONE (10/17/2019 12:32 PM CDT) Pathologist Sig nature TSH 1.36 0.45 - 4.70 mIU/L [facility] S Specimen Blood - VENOUS Performing Organization Address [facility]/Zipcode Phone Number [facility] CLIA: [id number], [address] [place] [address] [facility] C-REACTIVE PROTEIN (10/17/2019 12:32 PM CDT) Pathologist Sig nature CRP 1.6 (H) <0.8 mg/dL [facility] Specimen Blood - VENOUS Performing Organization Address [facility] Phone Number [facility] CLIA: [id number], [address] [place] [address] 555 [facility] XR FOOT 3+ VW RIGHT (10/17/2019 12:24 PM CDT) Specimen Impressions Performed At PACS/VR/DOSE Third toe ulceration with radiographic f indings consistent with distal phalangeal osteomyelitis. Preliminary Report Dictated by Resident: Nelida Jarquin I, Wesley Neil MD., have reviewed this study and a gree with the above report. Narrative Performed At EXAM: XR FOOT 3+ VW RIGHT PACS/VR/DOSE HISTORY: black toes and foot pain COMPARISON: Radiograph on 07/17/2019 FINDINGS: Radiographs demonstrate third toe superficial ulcerati on with mild cortical osteolysis of the underlying distal phal anx and surrounding soft tissue swelling. There is stable osteolysis and remodeling of the second and fourth ray distal phalanges without overlying ulcerati on. No acute fracture or dislocation. Severe osteopenia is present. Posttrau matic remodeling to the lateral and medial malleoli are susp ected. The joint spaces are maintained. A prominent calcaneal enthesophyte and eron betic type vascular calcifications are noted. Procedure Note [facility], Radiant Results Inft User - 2019 2:21 PM CDT EXAM: XR FOOT 3+ VW RIGHT HISTORY: black toes and foot pain COMPARISON: Radiograph on 07/17/2019 FINDINGS: Radiographs demonstrate third toe superf icial ulceration with mild cortical osteolysis of the underlying distal phal anx and surrounding soft tissue swelling. There is stable osteolysis and remodeling of the second and fourth ray distal phalanges without over lying ulceration. No acute fracture or dislocation. Severe osteopenia is pre sent. Posttraumatic remodeling to the lateral and medial malleoli are susp ected. The joint spaces are maintained. A prominent calcaneal enthes ophyte and diabetic type vascular calcifications are noted. IMPRESSION Third toe ulceration with radiographic f indings consistent with distal phalangeal osteomyelitis. Preliminary Report Dictated by Resident: Nelida Jarquin I, Wesley Neil MD., have reviewed [facility] study and agree with the above report. Performing Organization Address [facility] Phone Number PACS/VR/DOSE GLYCOSYLATED HEMOGLOBIN (A1C) (10/17/2019 12:15 PM CDT) Pathologist Sig nature HGB A1C 10.8 (H) 4.0 - 6.0 % [facility] Specimen Blood - VENOUS Narrative Performed At %A1C ([facility]) Interpretation (ADA) [facility] LABORATORY 4.8-5.6 Normal or (Non-Diabetic Ra nge) 5.7-6.4 Increased Risk (Pre-Diabet ic) >6.5 Diabetes Indicated Performing Organization Address [facility] Phone Number [facility] CLIA: [id number], [address] [place] [address] SEDIMENTATION RATE (10/17/2019 12:15 PM CDT) Pathologist Sig nature ESR 32 (H) 0 - 20 mm/HR [facility]OR[facility]ORY Specimen Blood - VENOUS Performing Organization Address [facility] Phone Number [facility] CLIA: [id number], [address] [place], [place] [address] CBC WITH DIFFERENTIAL (10/17/2019 12:15 PM CDT) Pathologist Sig nature WBC 9.19 4.30 - 11.10 [facility] 10*3/L HOSPITAL LABORATORY RBC 4.23 3.93 - 5.25 [facility] 10*6/L HOSPITAL LABORATORY HGB 12.5 11.6 - 15.0 g/dL [facility] HCT 38.0 35.7 - 45.2 % [facility] MCV 89.8 80.6 - 95.5 fL [facility] MCH 29.6 25.9 - 32.8 pg [facility] MCHC 32.9 31.6 - 35.1 g/dL [facility]OR[facility] RDW-SD 39.9 39.0 - 49.9 fL [facility]OR[facility] RDW-CV 12.3 12.0 - 15.5 % [facility]OR[facility] PLT 309 166 - 358 [facility] 10*3/L [facility] MPV 10.1 9.5 - 12.9 fL [facility] NRBC/100 WBC 0.0 0.0 - 10.0 /100 [facility] WBCs [facility] NRBC x10^3 <0.01 10*3/L [facility] GRAN MAT (NEUT) % 66.5 % [facility]OR[facility] IMM GRAN % 0.20 % [facility] LYMPH % 25.6 % [facility] MONO % 5.1 % [facility] EOS % 2.4 % [facility] BASO % 0.2 % [facility] GRAN MAT x10^3(ANC) 6.11 1.88 - 7.09 [facility] 10*3/uL HOSPITAL LABORATORY IMM GRAN x10^3 <0.03 0.00 - 0.06 [facility] 10*3/uL HOSPITAL LAB[facility]ORY LYMPH x10^3 2.35 1.32 - 3.29 [facility] 10*3/uL [facility]ITAL LAB[facility]ORY MONO x10^3 0.47 0.33 - 0.92 [facility] 10*3/uL HOSPITAL LABORATORY EOS x10^3 0.22 0.03 - 0.39 [facility] 10*3/uL [facility]ITAL LAB[facility]ORY BASO x10^3 <0.03 0.01 - 0.07 [facility] 10*3/uL HOSPITAL LABORATORY Specimen Blood - VENOUS Performing Organization Address City/State/Zipcode Phone Number [facility] CLIA: [id number], [address] [place], [place] [address] [facility] CORONAVIRUS COVID-19 TESTING (10/17/2019 12:15 PM CDT) [facility] SARS-CoV-2 Not Detected Not Detected [facility] LABORATORY Specimen Swab - NASOPHARYNGEAL SWAB Narrative Performed At IN NOW COVID-19 Assay is an isothermal nucleic [facility] acid amplification test intended for the qualitative detection of nucleic acid from SARS-CoV-2 viral RNA in nasopharyngeal (POLE CLASSIFIER) specimens. It is used under Emergency Use Authorization (EUA) by FDA. The limit of detection (LOD) of the assay is 125 Genome Equivalents/mL. A positive result is indicative of the presence of SARS-CoV-2 RNA. Clinical correlation with patient history and other diagnostic information is necessary to determine patient infection status. A negative (Not Detected) result does not preclude SARS-CoV-2 infection. Clinical correlation with patient history and other diagnostic information should be used in patient management decisions. Invalid: Please collect a new specimen for repeat patient testing if clinically indicated. Performing Organization Address City/State/Zipcode Phone Number [facility] CLIA: [id number], [address] [place], [place] [address] [facility] COMP. METABOLIC PANEL (88188) (10/17/2019 12:15 PM CDT) [facility] NA 137 135 - 145 [facility] mmol/L [facility] K 5.0 3.5 - 5.0 [facility] mmol/L [facility] CL 99 98 - 108 mmol/L [facility] CO2 TOTAL 30 23 - 31 mmol/L [facility] AGAP 8 2 - 16 [facility] BUN 21 7 - 23 mg/dL [facility] GLUCOSE 334 (H) 70 - 110 mg/dL [facility] CREATININE 0.60 0.50 - 1.04 [facility] mg/dL [facility] TOTAL BILI 1.1 0.1 - 1.1 mg/dL [facility] CALCIUM 9.5 8.6 - 10.6 [facility] mg/dL [facility] T PROTEIN 7.6 6.3 - 8.2 g/dL [facility] ALBUMIN 4.0 3.5 - 5.0 g/dL [facility] ALK PHOS 143 (H) 34 - 122 U/L [facility] ALTv 12 5 - 35 U/L [facility] AST(SGOT) 16 13 - 40 U/L [facility] eGFR Calculation 98.0 mL/min/1.73m2 [facility] ([facility] LABORATORY [place]) eGFR Calculation 118.8 mL/min/1.73m2 [facility] () [facility] Specimen Blood - VENOUS Narrative Performed At [facility] Glomerular Filtration Rate (GFR) [facility] [...] tests). Performing Organization Address City/State/Zipcode Phone Number [facility] CLIA: [id number], [address] [place], [place] [address] documented in this encounter Visit Diagnoses Diagnosis Right foot pain - Primary Pain in limb Pain of right lower extremity due to isc hemia Ischemic ulcer of toe, right, with unspe cified severity Uncontrolled type 2 diabetes mellitus wi thout complication, without long-term current use of insulin Gangrene Essential hypertension, benign Osteomyelitis Unspecified osteomyelitis, site unspecif ied documented in this encounter Administered Medications Medication Order MAR Action Action Date Dose Rate Site acetaminophen (TYLENOL) tablet Given 10/21/2019 12:20 PM CDT 325 mg 325 mg 325 mg, Oral, Q6H, First dose on Sun10/18/19 at 1200, Until Discontinued, Routine Given 10/21/2019 6:08 AM CDT 325 mg Given 10/20/2019 10:15 PM CDT 325 mg aspirin chewable tablet 81 mg Given 10/21/2019 8:03 AM CDT 81 mg 81 mg, Oral, DAILY, First dose on Sun10/18/19 at 0900, Until Discontinued, Routine Given 10/20/2019 8:59 AM CDT 81 mg Given 10/19/2019 8:47 AM CDT 81 mg atorvastatin (LIPITOR) tablet 40 mg Given 10/20/2019 10:15 PM CDT 40 mg 40 mg, Oral, QHS, First dose on Sun10/17/19 at 2100, Until Discontinued, Routine Given 10/19/2019 7:32 PM CDT 40 mg Given 10/18/2019 7:23 PM CDT 40 mg clopidogreL (PLAVIX) tablet 75 mg Given 10/21/2019 12:20 PM CDT 75 mg 75 mg, Oral, DAILY, First dose on Sun10/21/19 at 1300, Until Discontinued, Routine docusate (COLACE) capsule 100 mg Given 10/20/2019 8:59 AM CDT 100 mg 100 mg, Oral, DAILY, First dose on Sun10/19/19 at 0900, Until Discontinued, Routine Given 10/19/2019 8:47 AM CDT 100 mg heparin (porcine) injection Given 10/21/2019 8:03 AM CDT 5,000 Units Abdomen-SC 5,000 Units 5,000 Units, Subcutaneous, Q12H, First dose on Sun10/17/19 at 2000, Until Discontinued, Routine Given 10/20/2019 10:15 PM CDT 5,000 Units Abdo men-SC Given 10/20/2019 8:59 AM CDT 5,000 Units Abdo men-SC HYDROcodone-acetaminophen (NORCO 5) 5-325 Given 2019 2:19 AM CDT 1 tablet mg tablet 1 tablet 1 tablet, Oral, Q6HPRN, Starting 10/18/19 at 0944, Until Discontinued, Routine, Pain (scale 4-6) Given 10/20/2019 9:06 AM CDT 1 tablet Given 10/19/2019 12:14 PM CDT 1 tablet insulin aspart RAPID (NOVOLOG Given 10/21/2019 12:44 PM CDT 2 Un its Abdomen-SC U-100 INSULIN ASPART) injection 2 Units 2 Units, Subcutaneous, TIDAC, First dose on Sun10/20/19 at 0730, Until Discontinued, Routine Given 10/21/2019 9:29 AM CDT 2 Units Righ t Upper Arm-SC Given 10/20/2019 6:51 PM CDT 2 Units Abdo men-SC insulin glargine (LANTUS U-100) injectio n 6 Units 6 Units, Subcutaneous, QHS, First dose o n 10/21/19 at 2100, Until Discontinued, Routine nortriptyline (PAMELOR) capsule 25 mg Given 10/20/2019 10:15 PM CDT 25 mg 25 mg, Oral, QHS, First dose on Sun10/17/19 at 2100, Until Discontinued, Routine Given 10/19/2019 7:32 PM CDT 25 mg Given 10/18/2019 7:23 PM CDT 25 mg pantoprazole (PROTONIX) EC tablet 40 mg Given 10/21/2019 8:03 AM CDT 40 mg 40 mg, Oral, DAILY, First dose on Sun10/18/19 at 0900, Until Discontinued, Routine Given 10/20/2019 8:59 AM CDT 40 mg Given 10/19/2019 8:47 AM CDT 40 mg Polyethylene Glycol 3350 (MIRALAX) powde r 17 g Given 10/20/2019 8:59 AM CDT 17 g 17 g, Oral, DAILY, First dose on Sun10/19/19 at 0900, Until Discontinued, Routine Given 10/19/2019 8:47 AM CDT 17 g psyllium (METAMUCIL FIBER SINGLES) 3.4 Given 10/21/2019 8:03 AM CDT 1 Packet gram packet 1 Packet 1 Packet, Oral, DAILY, First dose on 10/20/19 at 0900, Until Discontinued, Routine Given 10/20/2019 9:05 AM CDT 1 Packet Sliding Scale Insulin - Aspart Given 10/21/2019 12:43 PM CDT 4 U nits Abdomen-SC (NOVOLOG) + Fsbg Testing Subcutaneous, Q6H, First dose on Sun10/17/19 at 1930, Until Discontinued, Routine Given 10/21/2019 6:13 AM CDT 1 Units Abdo men-SC Given 10/20/2019 10:18 PM CDT 1 Units Abdo men-SC Medication Order MAR Action Action Date Dose Rate Site FENTanyl PF (SUBLIMAZE (PF)) Given 10/17/2019 12:33 PM CDT 50 mc g injection 50 mcg 50 mcg, Slow IV Push, ONCE, 1 dose, Sun10/17/19 at 1330, STAT HYDROcodone-acetaminophen (NORCO) 10-325 Given 10/17/2019 11 :56 PM CDT 1 tablet mg tablet 1 tablet 1 tablet, Oral, Q6HPRN, Starting 10/17/19 at 1920, Until 10/18/19 at 0945, Routine, Pain (scale 7-10) insulin glargine (LANTUS U-100) Given 10/20/2019 10:16 PM CDT 5 Units Abdomen-SC injection 5 Units 5 Units, Subcutaneous, QHS, First dose on 10/19/19 at 2100, Until Discontinued, Routine Given 10/19/2019 11:27 PM CDT 5 Units Abdo men-SC vancomycin 1000 mg in NS 200 mL RTU IV Given 10/17/2019 1:42 PM CDT 1,000 mg Piggyback 1,000 mg 1,000 mg, IV Piggyback, ONCE, 1 dose, Sun10/17/19 at 1430, Reason for Anti-Infective: Documented Infection, Documented Infection Site: Bone, Duration of Therapy: 7 days documented in this encounter Insurance Payer Benefit Plan / Subscriber ID Effective Phone Address T e Group [facility] [id number] 2017-Pres Medica re HEALTHCARE - HEALTHCARE ent Adv HM O MANAGED DUAL COMPLETE MEDICARE HMO [facility] MEDICAID OF xxxxxxxxx 2019-Pres [phone] ca[address] [place] ent [phone] [place] [address] documented as of this encounter Advance Directives Type Date Recorded 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
--- OUTSIDE RECORDS SUMMARY | 2019-10-30 10:23 | XMS REPORT | Summary of Care ---
:1945 Author Organization [facility] - [facility] Address [address] [place] [address] Care Team Providers Name Role Phone Vanesa Riggs MD Primary Care Provider [phone] Beni Cuenca MD Unavailable Reason for Visit Reason Comments Transition Of Care Encounter Details Date Type Department Care Team Description 10/22/2019 Transition of Care [facility] [address] [address] Allergies No Known Allergiesdocumented as of this encounter (statuses as of 10/23/2019) Medications Medication Sig Dispensed Refills Start Date [...] use of insulin glipiZIDE XL 10 mg 24 Take 1 tablet by 60 tablet 2 10/21/2019 Active hr tabletIndications: mouth 2 (two) Uncontrolled type 2 times daily diabetes mellitus before breakfast without complication, and dinner. without long-term current use of insulin aspirin 81 mg chewable Take 1 tablet by 30 tablet 2 [...] gram mouth daily. powderIndications: Right foot pain HYDROcodone-acetaminop Take 1 tablet by 28 tablet 0 10/21/2019 Active hen 5-325 mg mouth every 6 tabletIndications: (six) hours as Right foot pain, needed (right Ischemic ulcer of toe, foot pain). right, with unspecified severity, Gangrene pantoprazole 40 mg EC Take 1 tablet by 30 tablet 2 10/22/2019 Active tabletIndications: mouth daily. Right foot pain HYDROcodone-acetaminop Take 1 tablet by 28 tablet 0 10/21/2019 Active hen 5-325 mg mouth every 8 tabletIndications: Dry (eight) hours as gangrene needed for Pain (scale 7-10). documented as of this encounter (statuses as of 10/23/2019) Active Problems Problem Noted Date Gangrene 10/18/2019 [...] as of this encounter (statuses as of 10/23/2019) Immunizations Name Administration Dates Next Due Influenza [...] of this encounter Implants Implanted Type Area Solar Water Heater Installer Device Shelf Model / Serial Identifier Expiration / Lot Date Log [id number] - Tray, Eddie Lens (Virtual) - 1 - [id number] 19.0d, Eddie Lens LENS Left: Eye Eddie 12/28/2015 [id number] 19.0D / Implanted: Qty: 1 on 06/29/2011 at [facility] [id number] / documented as of this encounter Results Not on filedocumented in this encounter Insurance Payer Benefit Plan / Subscriber ID Effective Phone Address T e Group [facility] [id number] 2017-Pres Medica re HEALTHCARE - HEALTHCARE ent Adv HM O MANAGED DUAL COMPLETE MEDICARE HMO [place] MEDICAID OF xxxxxxxxx 2019-Pres [phone] ca[address] [place] ent [id number] [place] [address] documented as of this encounter Advance Directives Type Date 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
[2019-10-30 11:52] LABS: Basophils % 0.5 % (0-1.3); Hematocrit 32.2 % (36.0-45.0); Lymphocytes % 13.6 % (15.3-44.8); MPV 7.8 fL (7.6-11.3); RBC Red Blood Cell Count 3.65 M/uL (3.86-4.86)
[2019-10-30] MEDS ORDERED: FENTANYL CITR 100 MCG/2 ML ONE (11:53)
[2019-10-30] MEDS ORDERED: NA CHLORIDE 0.9% 250 ML ONE (11:53)
[2019-10-30] MEDS ORDERED: VANCOMYCIN 1 GM/VIAL ONE (11:53)
[2019-10-30] MEDS ORDERED: ONDANSETRON 4 MG/2 ML VIAL ONE (11:53)
[2019-10-30 12:18] LABS: Albumin 2.8 g/dL (3.4-5.0); Bilirubin Direct 0.2 mg/dL (0-0.2); Bilirubin Total 0.6 mg/dL (0.2-1.0); Protein, Total 7.9 g/dL (6.4-8.2)
--- NOTE | 2019-10-30 12:20 | RAD REPORT ---
EXAM DESCRIPTION: RAD - Foot Right 3 View - 10/30/2019 12:03 pm CLINICAL HISTORY: osteo Pain and swelling. COMPARISON: No comparisons FINDINGS: Soft tissue swelling is present involving the third toe. The distal phalanx of the third t oe appears exposed, most compatible with osteomyelitis. Large calcaneal spurs are present.
--- NOTE | 2019-10-30 12:33 | EDPHYS ---
Physician Documentation [facility] Name: Maria Isabel Stacy Age: 74 yrs Sex: Female : 1945 Arrival Date: 10/30/2019 Time: 09:38 Bed 13 Private MD: TRACEY ART ED Physician Imtiaz Pelayo HPI: 10/29 12:24 This 74 yrs old Female presents to ER via Wheelchair with complaints of black jr8 toes. 12:24 The patient presents with pain, swelling, tenderness, redness with black toe. The jr8 complaints affect the right foot. Onset: The symptoms/episode began/occurred gradually, 1 week(s) ago. Modifying factors: The symptoms are alleviated by nothing, the symptoms are aggravated by weight bearing, movement. Associated signs and symptoms: The patient has no apparent associated signs or symptoms. Severity of symptoms: At their worst the symptoms were moderate, in the emergency department the symptoms are unchanged. It is unknown whether or not the patient has had similar symptoms in the past. It is unknown whether or not the patient has recently seen a physician. Historical: - Allergies: 09:59 No Known Allergies; ss - Immunization history:: Adult Immunizations up to date. - Social history:: Smoking status: Patient denies any tobacco usage or history of. ROS: 12:29 Eyes: Negative for injury, pain, redness, and discharge, ENT: Negative for injury, jr8 pain, and discharge, Neck: Negative for injury, pain, and swelling, Cardiovascular: Negative for chest pain, palpitations, and edema, Respiratory: Negative for shortness of breath, cough, wheezing, and pleuritic chest pain, Abdomen/GI: Negative for abdominal pain, nausea, vomiting, diarrhea, and constipation, Back: Negative for injury and pain, Neuro: Negative for headache, weakness, numbness, tingling, and seizure. 12:29 MS/extremity: Positive for decreased range of motion, erythema, pain, swelling, tenderness, of the right foot. Exam: 12:29 Eyes: Pupils equal round and reactive to light, extra-ocular motions intact. Lids and jr8 lashes normal. Conjunctiva and sclera are non-icteric and not injected. Cornea within normal limits. Periorbital areas with no swelling, redness, or edema. ENT: Nares patent. No nasal discharge, no septal abnormalities noted. Tympanic membranes are normal and external auditory canals are clear. Oropharynx with no redness, swelling, or masses, exudates, or evidence of obstruction, uvula midline. Mucous membranes moist. Neck: Trachea midline, no thyromegaly or masses palpated, and no cervical lymphadenopathy. Supple, full range of motion without nuchal rigidity, or vertebral point tenderness. No Meningismus. Cardiovascular: Regular rate and rhythm with a normal S1 and S2. No gallops, murmurs, or rubs. Normal PMI, no JVD. No pulse deficits. Respiratory: Lungs have equal breath sounds bilaterally, clear to auscultation and percussion. No rales, rhonchi or wheezes noted. No increased work of breathing, no retractions or nasal flaring. Abdomen/GI: Soft, non-tender, with normal bowel sounds. No distension or tympany. No guarding or rebound. No evidence of tenderness throughout. Back: No spinal tenderness. No costovertebral tenderness. Full range of motion. Skin: Warm, dry with normal turgor. Normal color with no rashes, no lesions, and no evidence of cellulitis. Neuro: Awake and alert, GCS 15, oriented to person, place, time, and situation. Cranial nerves II-XII grossly intact. Motor strength 5/5 in all extremities. Sensory grossly intact. Cerebellar exam normal. Normal gait. 12:29 Musculoskeletal/extremity: Extremities: grossly normal except: noted in the right foot: Patient has swollen red right foot with necrotic foul smelling 3rd digit, Circulation is intact in all extremities. Pulses: noted to be 2+ in the right posterior tibial artery, right dorsalis pedis artery, left posterior tibial artery and left dorsalis pedis artery, Sensation intact. Vital Signs: 09:58 BP 147 / 77; Pulse 79; Resp 18; Temp 98.8(TE); Pulse Ox 96% on R/A; Weight 66.68 kg; ss Height 5 ft. 4 in. (162.56 cm); Pain 10/10; 11:30 BP 150 / 62; Pulse 65; Resp 18; Pulse Ox 100% ; ah 12:30 BP 159 / 59; Pulse 66; Resp 18; Pulse Ox 99% ; ah 13:15 BP 140 / 63; Pulse 58; Resp 18; Pulse Ox 99% ; ah 14:15 BP 139 / 68; Pulse 93; Resp 18; Pulse Ox 99% ; ah 15:15 BP 136 / 88; Pulse 67; Resp 18; Pulse Ox 100% ; ah 16:24 BP 135 / 92; Pulse 69; Resp 17; Temp 97.7; Pulse Ox 100% ; ah 09:58 Body Mass Index 25.23 (66.68 kg, 162.56 cm) ss MDM: 10:51 Patient medically screened. [facility] 12:29 Data reviewed: vital signs, nurses notes, lab test result(s), radiologic studies, plain jr8 films. Data interpreted: Pulse oximetry: on room air is 96 %. Interpretation: normal. Counseling: I had a detailed discussion with the patient and/or guardian regarding: the historical points, exam findings, and any diagnostic results supporting the discharge/admit diagnosis, lab results, radiology results, the need for further work-up and treatment in the hospital. Physician consultation: Prince Yasmine KIM was called at 12:31, was contacted at 12:31, regarding admission, to the medical/surgical unit. consult, patient's condition, and will see patient. 12:34 ED course: Consulted Dr. Angel on case as well who will see patient today . 10/29 11:11 Order name: CBC with Diff; Complete Time: 12:24 10/29 11:11 Order name: Basic Metabolic Panel; Complete Time: 12:24 10/29 11:11 Order name: LFT's; Complete Time: 12:24 10/29 11:11 Order name: Blood Culture Adult (2) 10/29 11:11 Order name: Procalcitonin; Complete Time: 12:32 10/29 11:11 Order name: ESR; Complete Time: 12:24 10/29 11:11 Order name: CRP; Complete Time: 12:24 10/29 11:11 Order name: XRAY Foot RIGHT 3 View; Complete Time: 12:24 10/29 11:11 Order name: IV; Complete Time: 11:35 10/29 12:34 Order name: NPO; Complete Time: 16:25 jr8 Administered Medications: 12:15 Drug: Zofran (Ondansetron) 4 mg Route: IVP; Site: right antecubital; 22:25 Follow up: Response: No adverse reaction 12:20 Drug: fentaNYL (PF) 50 mcg Route: IVP; Site: right antecubital; 22:26 Follow up: Response: No adverse reaction 12:20 Drug: Cefepime 1 grams Route: IVPB; Rate: 200 ml/hr; Infused Over: 30 mins; Site: right ah antecubital; 22:25 Follow up: Response: No adverse reaction; IV Status: Completed infusion 13:05 Drug: vancoMYCIN 1 grams Route: IVPB; Infused Over: 2 hrs; Site: right forearm; Disposition: 10/30 05:41 Co-signature as Attending Physician, Imtiaz Pelayo MD I agree with the assessment and lizandro plan of care. Disposition: 10/30/19 12:32 Hospitalization ordered by Prince Yasmine for Inpatient Admission. Preliminary diagnosis are Cellulitis of right lower limb, Osteomyelitis, Gangrene, not elsewhere classified. - Bed requested for Telemetry/MedSurg (Inpatient). - Status is Inpatient Admission. - Condition is Stable. - Problem is new. - Symptoms are unchanged. Signatures: Dispatcher [employer] EDMS Glory Hutchins Corey, MD MD cha Smirch, Shelby, RN RN Dante Richard PA PA jr Mitzi Alcaraz RN RN Corrections: (The following items were deleted from the chart) 10/29 15:28 12:32 Hospitalization Ordered by Prince Yasmine KIM for Inpatient Admission. Preliminary bd diagnosis is Cellulitis of right lower limb; Osteomyelitis; Gangrene, not elsewhere classified. Bed requested for Telemetry/MedSurg (Inpatient). Status is Inpatient Admission. Condition is Stable. Problem is new. Symptoms are unchanged. jr8 17:04 15:28 10/30/2019 12:32 Hospitalization Ordered by Prince Yasmine KIM for Inpatient Admission. Preliminary diagnosis is Cellulitis of right lower limb; Osteomyelitis; Gangrene, not elsewhere classified. Bed requested for Telemetry/MedSurg (Inpatient). Status is Inpatient Admission. Condition is Stable. Problem is new. Symptoms are unchanged. bd
--- NOTE | 2019-10-30 12:33 | ER ---
Nurse's Notes [facility] Name: Maria Isabel Stacy Age: 74 yrs Sex: Female : 1945 Arrival Date: 10/30/2019 Time: 09:38 Bed 13 Private MD: TRACEY ART Diagnosis: Cellulitis of right lower limb;Osteomyelitis;Gangrene, not elsewhere classified Presentation: 10/29 09:58 Chief complaint: Patient states: pain and black discoloration to R third toe x 1 week. ss Coronavirus screen: Proceed with normal triage. Ebola Screen: Patient denies exposure to infectious person. Patient denies travel to an Ebola-affected area in the 21 days before illness onset. Initial Sepsis Screen: Does the patient meet any 2 criteria? No. Patient's initial sepsis screen is negative. Does the patient have a suspected source of infection? Yes: Skin breakdown/wound. Risk Assessment: Do you want to hurt yourself or someone else? Patient reports no desire to harm self or others. Onset of symptoms is unknown. 09:58 Method Of Arrival: Wheelchair ss 09:58 Acuity: DORCAS 3 ss Historical: - Allergies: 09:59 No Known Allergies; ss - Immunization history:: Adult Immunizations up to date. - Social history:: Smoking status: Patient denies any tobacco usage or history of. Screenin:44 Abuse screen: Denies threats or abuse. Nutritional screening: No deficits noted. Tuberculosis screening: No symptoms or risk factors identified. Fall Risk IV access (20 points). Ambulatory Aid- Crutches/Cane/Walker (15 pts). Gait- Weak (10 pts.). Mental Status- Total Meyer Fall Scale indicates High Risk Score (45 or more points). Fall prevention measures have been instituted. Side Rails Up X 2 Placed Close to Nursing Station Frequent Obs/Assessments Occuring As available patient and family educated on Fall Prevention Program and Strategies. Assessment: 10:15 General: Appears uncomfortable, Behavior is calm, cooperative, appropriate for age. Pain: Complains of pain in right third toe and Right third toenail Pain currently is 8 out of 10 on a pain scale. Pain began unknown Alleviated by nothing. Neuro: Level of Consciousness is awake, alert, Oriented to person, place, time, situation. Cardiovascular: Heart tones S1 S2 present. Respiratory: Airway is patent Respiratory effort is even, unlabored, Respiratory pattern is regular, symmetrical. GI: No signs and/or symptoms were reported involving the gastrointestinal system. Patient currently denies nausea, vomiting. : No signs and/or symptoms were reported regarding the genitourinary system. EENT: No signs and/or symptoms were reported regarding the EENT system. Derm: Skin is dry, Skin is black, Wound noted right third toe and Right third toenail. Derm: Reports pain right foot has pain, swelling and discoloration. Unknown how long. Musculoskeletal: No signs and/or symptoms reported regarding the musculoskeletal system. 12:20 Reassessment: Patient and/or family updated on plan of care and expected duration. Pain ah level reassessed. Pt medicated for pain and nausea at this time. No other needs voiced. 13:20 Reassessment: Pt resting in bed at this time. Pain is decreased. Vancomycin started at this time. Awaiting results. Vital Signs: 09:58 BP 147 / 77; Pulse 79; Resp 18; Temp 98.8(TE); Pulse Ox 96% on R/A; Weight 66.68 kg; ss Height 5 ft. 4 in. (162.56 cm); Pain 10/10; 11:30 BP 150 / 62; Pulse 65; Resp 18; Pulse Ox 100% ; ah 12:30 BP 159 / 59; Pulse 66; Resp 18; Pulse Ox 99% ; ah 13:15 BP 140 / 63; Pulse 58; Resp 18; Pulse Ox 99% ; ah 14:15 BP 139 / 68; Pulse 93; Resp 18; Pulse Ox 99% ; ah 15:15 BP 136 / 88; Pulse 67; Resp 18; Pulse Ox 100% ; ah 16:24 BP 135 / 92; Pulse 69; Resp 17; Temp 97.7; Pulse Ox 100% ; ah 09:58 Body Mass Index 25.23 (66.68 kg, 162.56 cm) ED Course: 09:38 Patient arrived in ED. am2 09:39 TRACEY ART is Private Physician. am2 09:59 Triage completed. ss 09:59 Arm band placed on right wrist. ss 10:51 [facility] jr8 10:51 Imtiaz Pelayo MD is Attending Physician. jr8 11:25 Mitzi Alcaraz, RN is Primary Nurse. 11:30 Initial lab(s) drawn, by ct, sent to lab. First set of blood cultures drawn. Inserted em1 saline lock: 20 gauge in right forearm, using aseptic technique. Blood collected. 12:04 XRAY Foot RIGHT 3 View In Process Unspecified. EDOK 12:32 Prince Underwood MD is Hospitalizing Provider. jr8 16:40 No provider procedures requiring assistance completed. Patient admitted, IV remains in place. 17:03 Patient has correct armband on for positive identification. Administered Medications: 12:15 Drug: Zofran (Ondansetron) 4 mg Route: IVP; Site: right antecubital; 22:25 Follow up: Response: No adverse reaction 12:20 Drug: fentaNYL (PF) 50 mcg Route: IVP; Site: right antecubital; 22:26 Follow up: Response: No adverse reaction 12:20 Drug: Cefepime 1 grams Route: IVPB; Rate: 200 ml/hr; Infused Over: 30 mins; Site: right ah antecubital; 22:25 Follow up: Response: No adverse reaction; IV Status: Completed infusion 13:05 Drug: vancoMYCIN 1 grams Route: IVPB; Infused Over: 2 hrs; Site: right forearm; Outcome: 12:32 Decision to Hospitalize by Provider. jr8 16:40 Admitted to Med/surg accompanied by tech, room 213, with chart, Report called to daisy Chavez RN 16:40 Condition: good 16:40 Instructed on the need for admit. 17:04 Patient left the ED. Signatures: Dispatcher [employer] EDOK Pepe Kowalski em1 Lorena Ruiz RN RN Dante Richard PA PA jr8 Isis Beatty am2 Mitzi Alcaraz, RN RN
--- NOTE | 2019-10-30 16:08 | P.HP ---
Certification for Inpatient Patient admitted to: Inpatient With expected LOS: >2 Midnights Practitioner: I am a practitioner with admitting privileges, knowledge of patient current condition, hospital course, and medical plan of care. Services: Services provided to patient in accordance with Admission requirements found in Title 42 Section 412.3 of the Code of Federal Regulations Patient History Date of Service: 10/30/19 Reason for admission: diabetic foot infection History of Present Illness: Patient is a 74 year old Kosovan-speaking with uncontrolled diabetes mellitus who presents to the ER with a diabetic foot infection. She has a gangrenous 3rd digit on her R foot. Patient states that she developed these symptoms several weeks ago but they've been progressively getting worse over this period. She denies any fever, nausea, vomiting, chest pain. She has mild chills. A foot radiograph showed osteomyelitis of the 3rd toe. Physical Examination - Physical Exam General: Alert, In no apparent distress, Cooperative HEENT: Atraumatic, Normocephalic, EOMI Neck: Supple Respiratory: Clear to auscultation bilaterally, Normal air movement Cardiovascular: Normal pulses, Regular rate/rhythm, Normal S1 S2, Other Gastrointestinal: Normal bowel sounds, Soft and benign, Non-distended Musculoskeletal: Swelling, Other (Right foot erythema and edema with gangrenous 3rd toe) Integumentary: Tenderness/swelling, Erythema, Other (dorsum of R foot) - Studies Laboratory Data (last 24 hrs) 10/30/19 11:30: Sodium 138, Potassium 4.0, BUN 14, Creatinine 0.73, Glucose 210 H, Total Bilirubin 0.6, AST 10 L, ALT 17, Alkaline Phosphatase 109 10/30/19 11:30: WBC 14.9 H, Hgb 10.7 L, Hct 32.2 L, Plt Count 420 H Assessment and Plan - Problems (Diagnosis) (1) Osteomyelitis of toe of right foot Current Visit: Yes Status: Acute (2) Uncontrolled type II diabetes mellitus Current Visit: Yes Status: Acute - Plan Assessment 74 YEAR OLD Kosovan-speaking female with uncontrolled type II diabetes mellitus currently admitted with gangrenous toe of R foot Osteomyelitis Uncontrolled type II diabetes PLAN Admit inpatient with telemetry Start empiric antibiotics with vanc and zosyn LR infusion Surgery has been consulted for ampuation Insulin sliding scale Multi-modal pain regimen - Advance Directives Does patient have a Living Will: No Does patient have a Durable POA for Healthcare: No
[2019-10-30] MEDS ORDERED: ACETAMINOPHEN 500 MG TAB PO PRN (16:18)
[2019-10-30] MEDS ORDERED: PIPER/TAZO/NS 3.375gm 3.375 GM/100 ML BAG IVPB SCH (17:00)
[2019-10-30] MEDS ORDERED: VANCOMYCIN 1 GM in NA CHLORIDE 0.9% 250 ML IVPB SCH (17:36)
[2019-10-30] MEDS: INSULIN -REGULAR HUMAN 50 UNIT/0.5 ML ML SQ SCH ×2 (17:36→21:00)
[2019-10-30] MEDS ORDERED: GLUCAGON 1 MG/VIAL IM PRN (17:36)
[2019-10-30] MEDS ORDERED: D50W 25 GM/50 ML SYRINGE/VIAL IV PRN (17:36)
[2019-10-30] MEDS: Ringers Lactate 1,000 ML IV SCH (17:40)
[2019-10-30] MEDS: TRAMADOL HCL 50 MG TAB PO PRN (17:49)
[2019-10-30 18:24] VITALS: BMI 25.2
[2019-10-30] MEDS: MORPHINE 2 MG/ML SYR IV PRN (20:35)
[2019-10-30] MEDS ORDERED: VANCOMYCIN 750 MG in NA CHLORIDE 0.9% 150 ML IVPB ONE (21:00)
[2019-10-31] MEDS: TRAMADOL HCL 50 MG TAB PO PRN (01:46)
[2019-10-31] MEDS: PIPER/TAZO/NS 3.375gm 3.375 GM/100 ML BAG IVPB SCH ×2 (01:48→08:50)
[2019-10-31] MEDS: MORPHINE 2 MG/ML SYR IV PRN ×2 (02:55→08:50)
[2019-10-31] MEDS: Ringers Lactate 1,000 ML IV SCH ×3 (05:54→22:04)
[2019-10-31] MEDS: INSULIN -REGULAR HUMAN 50 UNIT/0.5 ML ML SQ SCH ×5 (06:00→20:58)
[2019-10-31] MEDS ORDERED: NA CHLORIDE 0.9% 1,000 ML ONE (10:43)
--- NOTE | 2019-10-31 10:59 | P.PN ---
Subjective Date of Service: 10/31/19 Chief Complaint: diabetic foot infection Subjective: No new changes (No acute events overnight. Patient is having RLE pain. She is NPO for amputation of R foot) Physical Examination - Vital Signs Temperature: 98.2 F Blood Pressure: 159/70 Pulse: 60 Respirations: 18 Pulse Ox (%): 96 - Physical Exam General: Alert, In no apparent distress, Cooperative HEENT: Atraumatic, Normocephalic, EOMI Neck: Supple Respiratory: Clear to auscultation bilaterally, Normal air movement Cardiovascular: Regular rate/rhythm, Normal S1 S2, Other (R foot edema), Edema Gastrointestinal: Normal bowel sounds, Soft and benign, Non-distended Musculoskeletal: Other (Gangrenous 3rd toe, R foot. Mild dorsal edema of R foot) Integumentary: No rashes, No breakdown, No significant lesion, No tenderness/swelling, No erythema, No warmth, No cyanosis Neurological: Normal speech, Sensation intact, Normal affect - Studies Laboratory Data (last 24 hrs) 10/30/19 11:30: Sodium 138, Potassium 4.0, BUN 14, Creatinine 0.73, Glucose 210 H, Total Bilirubin 0.6, AST 10 L, ALT 17, Alkaline Phosphatase 109 10/30/19 11:30: WBC 14.9 H, Hgb 10.7 L, Hct 32.2 L, Plt Count 420 H Assessment & Plan - Problems (Diagnosis) (1) Osteomyelitis of toe of right foot Current Visit: Yes Status: Acute (2) Uncontrolled type II diabetes mellitus Current Visit: Yes Status: Acute Physician Review Additional Text: Assessment Patient is a 74 year old Maori-speaking female with uncontrolled type II diabetes mellitus currently admitted with Gangrenous toe and osteomyelitis of R foot. She is NPO pending ampuation. A1c 10.3. Has not required any correctional insulin since admission. Gangrenous Toe and osteomyelitis Uncontrolled type II diabetes mellitus Hypertension PLAN: OR today for amputation Hold home dose of plavix Continue vancomycin. Change zosyn to cefepime to avoid nephrotoxicity Continue multi-modal pain regimen and DVT ppx PT/OT post op Continue blood glucose check. Start low dose bedtime lantus along with insulin sliding scale Resume lisinopril for blood pressure control
[2019-10-31] MEDS ORDERED: D50W 25 GM/50 ML SYRINGE/VIAL IV PRN (11:02)
[2019-10-31] MEDS ORDERED: GLUCAGON 1 MG/VIAL IM PRN (11:02)
[2019-10-31] MEDS: CEFEPIME/SWI 2gm 2 GM/20 ML SYR IV SCH ×2 (11:30→16:13)
[2019-10-31] MEDS ORDERED: FENTANYL CITR 100 MCG/2 ML ONE (12:29)
[2019-10-31] MEDS ORDERED: LIDOCAINE 2% MPF 5 ML VIAL ONE (12:29)
[2019-10-31] MEDS ORDERED: MIDAZOLAM HCL 2 MG/2 ML INJ ONE (12:29)
[2019-10-31] MEDS ORDERED: propofoL 200 MG/20 ML VIAL IV ONE (12:29)
[2019-10-31] MEDS ORDERED: ROPLVACAINE HCL 40 ML ONE (12:35)
[2019-10-31] MEDS ORDERED: dexAMETHasone 10 MG/ML VIAL ONE (12:43)
--- NOTE | 2019-10-31 12:52 | P.CNS ---
Date of Consult: 10/30/19 PC: This patient presents emergency room with severe pain in her 3rd toe for right foot to the ER. HPC: Patient is an injury to this a number weeks ago. During that time the toe has gone black and gangrenous. She could no longer stand the pain in discomfort and she came here for diagnosis and treatment. PSHx: Had been evaluated at another facility. They are hoping that the tail in auto amputate. SOC: No known allergies SYS REVIEW: Otherwise in good health O/E awake alert very uncomfortable HEENT: Within normal limits Chest: Chest movement equal bilaterally ABD: Soft LOCO: The 3rd toe of her right foot shows gangrene down to the base. There is now however surrounding erythema and swelling on the dorsum of the foot. The patient has been admitted at this time. We will take her the operating room for an amputation of this 3rd toe. She is very anxious to have this done and she can no longer the bare of the pain and discomfort in that area. DATA: Reviewed IMPRESSION: Gangrene of 3rd toe of right foot PLAN: I will to the operating room for amputation of this 3rd toe. The risks of this procedure have been discussed. The possibility of bleeding, infection, chronic pain were outlined. Further procedures and operations were explained. She understands and wants to proceed. She is Danish-speaking only but we have to of the nurses translate for us. She is very comfortable with this decision.
--- NOTE | 2019-10-31 13:11 | P.OP ---
Preoperative diagnosis: Gangrene of the 3rd toe right foot Postoperative diagnosis: The same Primary procedure: Amputation of 3rd toe of the right foot Anesthesia: General Estimated blood loss: Less than 10 cc Specimen: Sent for histopathology Operative Technique: The patient brought the operating room placed supine on the table or after the induction of adequate general anesthesia, the area of the right foot was then prepped with a DuraPrep solution draped in usual aseptic manner turned towards is obviously gangrenous 3rd toe. A circumferential incision was made just around the skin at they a webspace. This brought down through the skin and subcutaneous tissue. We encounter the bone was stripped of its periosteum. The distal portion of the phalanx was excised leaving the had in place. The superfi cial subcutaneous tissue was now cut back to viable remains. The skin was loosely approximated with a PDS. A sterile dressing was applied. We will allow this wound to heal with secondary intention in the wound center. Anticipate discharge in a.m.. Complications: None Transferred to: Recovery Room Condition: Good
[2019-10-31] MEDS ORDERED: dexAMETHasone 4 MG/ML VIAL ONE (13:12)
[2019-10-31] MEDS ORDERED: GLYCOPYRROLATE 0.2 MG/ML SYR ONE (13:14)
[2019-10-31 13:37] VITALS: O2SAT 100
[2019-10-31] MEDS ORDERED: ATORVASTATIN 40 MG TAB PO SCH (21:00)
[2019-10-31] MEDS ORDERED: VANCOMYCIN 1.25 GM in NA CHLORIDE 0.9% 250 ML IVPB SCH (21:00)
[2019-10-31] MEDS ORDERED: INSULIN GLARGINE 100 UNITS/ML SQ SCH (21:00)
[2019-11-01] MEDS: CEFEPIME/SWI 2gm 2 GM/20 ML SYR IV SCH ×2 (00:27→08:18)
[2019-11-01] MEDS ORDERED: PANTOPRAZOLE 40MG TABLET PO SCH (06:30)
[2019-11-01] MEDS: Ringers Lactate 1,000 ML IV SCH (08:16)
[2019-11-01] MEDS: INSULIN -REGULAR HUMAN 50 UNIT/0.5 ML ML SQ SCH ×2 (08:17→12:01)
[2019-11-01 08:22] VITALS: BP 169/72
[2019-11-01] MEDS ORDERED: lisinopriL 10 MG TAB PO SCH (09:00)
[2019-11-01] MEDS ORDERED: ASPIRIN 81 MG CHEWABLE TABLET PO SCH (09:00)
[2019-11-01 10:37] VITALS: TEMP 97.5
--- NOTE | 2019-11-01 11:13 | P.DS ---
Admission Date: 10/30/19 Discharge Date: 11/01/19 Disposition: ROUTINE DISCHARGE Discharge Condition: GOOD Reason for Admission: diabetic foot infection - Problems (1) Osteomyelitis of toe of right foot Current Visit: Yes Status: Acute (2) Uncontrolled type II diabetes mellitus Current Visit: Yes Status: Acute Brief History of Present Illness: Patient is a 74 year old Chadian-speaking with uncontrolled diabetes mellitus who presents to the ER with a diabetic foot infection. She has a gangrenous 3rd digit on her R foot. Patient states that she developed these symptoms several weeks ago but they've been progressively getting worse over this period. She denies any fever, nausea, vomiting, chest pain. She has mild chills. A foot radiograph showed osteomyelitis of the 3rd toe. Hospital Course: Patient is a 74 year old Chadian-speaking female with a PMH of uncontrolled type II diabetes mellitus who was admitted with osteomyelitis of her 3rd toe. She underwent amputation and tolerated the procedure well. She will be discharged on lantus. Her A1c 10.3 Vital Signs/Physical Exam: Temp Pulse Resp BP Pulse Ox 97.5 F 61 18 169/72 H 97 11/01/19 08:00 11/01/19 08:18 11/01/19 08:00 11/01/19 08:18 11/01/19 08:00 General: Alert, Cooperative, Mild distress HEENT: Atraumatic, Normocephalic, EOMI Neck: Supple Respiratory: Clear to auscultation bilaterally, Normal air movement Cardiovascular: No edema, Normal pulses, Regular rate/rhythm, Normal S1 S2 Gastrointestinal: Normal bowel sounds, Soft and benign, Non-distended Musculoskeletal: Other (R foot wrapped with [place] wrap) Integumentary: No rashes, No breakdown, No significant lesion, No tenderness/swelling, No erythema, No warmth, No cyanosis Neurological: Normal speech, Sensation intact, Normal affect Laboratory Data at Discharge: WBC 14.9 K/uL (4.3-10.9) H 10/30/19 11:30 Hgb 10.7 g/dL (12.0-15.0) L 10/30/19 11:30 Hct 32.2 % (36.0-45.0) L 10/30/19 11:30 Plt Count 420 K/uL (152-406) H 10/30/19 11:30 Sodium 138 mmol/L (136-145) 10/30/19 11:30 Potassium 4.0 mmol/L (3.5-5.1) 10/30/19 11:30 BUN 14 mg/dL (7-18) 10/30/19 11:30 Creatinine 0.73 mg/dL (0.55-1.3) 10/30/19 11:30 Glucose 210 mg/dL (74-106) H 10/30/19 11:30 Total Bilirubin 0.6 mg/dL (0.2-1.0) 10/30/19 11:30 AST 10 U/L (15-37) L 10/30/19 11:30 ALT 17 U/L (12-78) 10/30/19 11:30 Alkaline Phosphatase 109 U/L (45-117) 10/30/19 11:30 Home Medications: Aspirin Chewable [Aspirin Chewable*] 81 mg PO DAILY 10/31/19 Atorvastatin Calcium [Lipitor] 40 mg PO BEDTIME 10/31/19 Clopidogrel Bisulfate [Plavix*] 75 mg PO DAILY 10/31/19 Glipizide [Glipizide ER] 10 mg PO BIDAC 10/31/19 Lisinopril [Zestril] 10 mg PO DAILY 10/31/19 Pantoprazole [Protonix Tab*] 40 mg PO DAILY 10/31/19 Insulin Glargine Human [Lantus*] 5 units SQ BEDTIME #10 ml 11/01/19 traMADol HCL [Ultram*] 50 mg PO Q6H PRN #28 tab 11/01/19 New Medications: Insulin Glargine Human [Lantus*] 5 units SQ BEDTIME #10 ml traMADol HCL [Ultram*] 50 mg PO Q6H PRN #28 tab PRN Reason: Pain Scale 5-7 (Moderate) Diet: ADA
[2019-11-01] MEDS: TRAMADOL HCL 50 MG TAB PO PRN (12:01)
[2019-11-01] MEDS ORDERED: INSULIN GLARGINE 100 UNITS/ML SQ SCH (21:00)
== END 2019-11-01 12:33 | disposition home or self-care (01) | DRG 617 ==
LOC: ER 09:34 → ERHOLD 13:00 → 2ND 16:52
PROVIDERS: ADMIT Internal Medicine; ATTEND Internal Medicine
PROC: 0Y6T0Z3 Detachment at Right 3rd Toe, Low, Open Approach (ICD-10-PCS; principal; 2019-10-31 11:30)
DX: E11.69 Type 2 diabetes mellitus with other specified complication (principal); E11.52 Type 2 diabetes mellitus with diabetic peripheral angiopathy with gangrene; M86.8X7 Other osteomyelitis, ankle and foot; I96 Gangrene, not elsewhere classified; I10 Essential (primary) hypertension; Z79.82 Long term (current) use of aspirin; Z79.899 Other long term (current) drug therapy; Z79.02 Long term (current) use of antithrombotics/antiplatelets; Z79.4 Long term (current) use of insulin
CPT/HCPCS: 36415; 80048; 80076; 82947; 83036; 84145; 85025; 85652; 86140; 87040; 88305; 88311; 97116; 97161; 99285; J0692; J1100; J1815; J2250; J2270; J2405; J2543; J2704; J2795; J3010; J7030; J7120

== ENCOUNTER 2019-11-30 21:00 | Emergency (ER) | payer OTHER ==
--- OUTSIDE RECORDS SUMMARY | 2019-11-30 21:02 | XMS REPORT | Continuity of Care Document ---
:1945 Author Organization [facility] t Address [address] [place] [address] Care Team Providers Name Role Phone Oneil KIM, A Attending Clinician Problems This patient has no known problems. Allergies, Adverse Reactions, Alerts This patient has no known allergies or adverse reactions. Medications This patient has no known medications. Procedures This patient has no known procedures. Encounters Start End Encounter Admission Attending Care Care Encounter Source Date/Time Date/Time Type Type Clinicians Facility Department ID 2019-11-21 2019-11-21 Telemedici Oneil [facility] [id number] 08:57:41 09:37:41 ne Visit Vanesa Wiggins [id number] [place] [id number] Professio [phone] nal [address] Building 2019-10-30 2019-10-30 Telephone Oneil MNJOSE ANGEL [id number] 00:00:00 00:00:00 Vanesa Wiggins [id number] [place] [id number] Professio [phone] nal 231 Building Results This patient has no known results.
[2019-11-30] MEDS ORDERED: MORPHINE 4 MG/ML SYR ONE (21:54)
[2019-11-30] MEDS ORDERED: ONDANSETRON 4 MG/2 ML VIAL ONE (21:54)
[2019-11-30 21:57] LABS: Absolute Lymphocytes (CBC) 2.9 K/uL (0.7-4.9); Basophils % 1.1 % (0-1.3); Lymphocytes % 20.7 % (15.3-44.8); MPV 7.9 fL (7.6-11.3); RBC Red Blood Cell Count 3.94 M/uL (3.86-4.86)
[2019-11-30 22:02] LABS: Protime INR 1.16
[2019-11-30 22:17] LABS: ALT/SGPT 12 U/L (12-78); AST/SGOT 7 U/L (15-37); Albumin 2.7 g/dL (3.4-5.0); Alkaline Phosphatase 122 U/L (45-117); BUN Blood Urea Nitrogen 12 mg/dL (7-18); Bicarbonate 30 mmol/L (21-32); Bilirubin Direct 0.2 mg/dL (0-0.2); Bilirubin Total 0.8 mg/dL (0.2-1.0); Glucose Level 293 mg/dL (74-106); Magnesium 2.1 mg/dL (1.8-2.4); NT PRO-BNP 299 pg/mL (<125); Potassium 3.8 mmol/L (3.5-5.1); Sodium Level 137 mmol/L (136-145); Troponin (Emerg Dept Use Only) < 0.02 ng/mL (0.0-0.045)
--- NOTE | 2019-11-30 23:58 | EDPHYS ---
Physician Documentation [facility] Name: Maria Isabel Stacy Age: 74 yrs Sex: Female : 1945 Arrival Date: 11/30/2019 Time: 21:04 Bed 18 Private MD: TRACEY ART ED Physician Chico Ricci HPI: 11/30 02:31 This 74 yrs old Female presents to ER via Wheelchair with complaints of Post tw4 Surgical Pain, Foot Pain. 02:31 The patient presents with pain, that is acute. The patient presents with color changes. tw4 The complaints affect the right foot. Onset: The symptoms/episode began/occurred 2 day(s) ago. Modifying factors: The symptoms are alleviated by nothing, the symptoms are aggravated by nothing. Associated signs and symptoms: The patient has no apparent associated signs or symptoms. Severity of symptoms: At their worst the symptoms were moderate. The patient has not experienced similar symptoms in the past. Historical: - Allergies: 11/29 21:13 No Known Allergies; aj1 - Home Meds: 21:13 insulin [Active]; aj1 - PMHx: 21:13 Diabetes - NIDDM; aj1 - Immunization history:: Adult Immunizations up to date. - Social history:: Smoking status: Patient/guardian denies using tobacco. ROS: 11/30 02:31 MS/extremity: Positive for pain, gangrene, of the ball of right foot, right second toe tw4 and right third toe. Constitutional: Negative for fever, chills, and weight loss, Eyes: Negative for injury, pain, redness, and discharge, Cardiovascular: Negative for chest pain, palpitations, and edema, Respiratory: Negative for shortness of breath, cough, wheezing, and pleuritic chest pain, Abdomen/GI: Negative for abdominal pain, nausea, vomiting, diarrhea, and constipation, Skin: Negative for injury, rash, and discoloration, Neuro: Negative for headache, weakness, numbness, tingling, and seizure. MS/extremity: Positive for pain, tenderness. Exam: 02:31 Constitutional: This is a well developed, well nourished patient who is awake, alert, tw4 and in no acute distress. Head/Face: Normocephalic, atraumatic. Chest/axilla: Normal chest wall appearance and motion. Nontender with no deformity. No lesions are appreciated. Cardiovascular: Regular rate and rhythm with a normal S1 and S2. No gallops, murmurs, or rubs. Normal PMI, no JVD. No pulse deficits. Respiratory: Lungs have equal breath sounds bilaterally, clear to auscultation and percussion. No rales, rhonchi or wheezes noted. No increased work of breathing, no retractions or nasal flaring. Abdomen/GI: Soft, non-tender, with normal bowel sounds. No distension or tympany. No guarding or rebound. No evidence of tenderness throughout. Back: No spinal tenderness. No costovertebral tenderness. Full range of motion. 02:31 Neuro: Awake and alert, GCS 15, oriented to person, place, time, and situation. Cranial nerves II-XII grossly intact. Motor strength 5/5 in all extremities. Sensory grossly intact. Cerebellar exam normal. Normal gait. 02:31 Musculoskeletal/extremity: Extremities: noted in the right second toe and right third toe: pain, gangrene, Perfusion: the extremity is cool, dusky. Vital Signs: 11/29 21:09 BP 116 / 74; Pulse 84; Resp 18; Temp 97.8(TE); Pulse Ox 99% on R/A; Weight 66.68 kg aj1 (R); Height 5 ft. 4 in. (162.56 cm) (R); Pain 10/10; 22:00 BP 133 / 57; Pulse 62; Resp 18; Pulse Ox 98% on R/A; wh 23:00 BP 141 / 62; Pulse 58; Resp 18; Pulse Ox 99% on R/A; 11/30 00:00 BP 158 / 65; Pulse 60; Resp 18; Pulse Ox 94% on R/A; wh 01:00 BP 147 / 66; Pulse 58; Resp 18; Pulse Ox 99% on R/A; 11/29 21:09 Body Mass Index 25.23 (66.68 kg, 162.56 cm) aj MDM: 11/29 21:40 Patient medically screened. tw4 11/30 02:31 Differential diagnosis: fracture, sprain, foreign body, penetrating trauma. Data tw4 reviewed: vital signs, nurses notes. Data reviewed: lab test result(s), CBC, electrolytes. Data interpreted: Pulse oximetry: Interpretation: normal. Counseling: I had a detailed discussion with the patient and/or guardian regarding: the historical points, exam findings, and any diagnostic results supporting the discharge/admit diagnosis, lab results. Physician consultation: Edgardo Angel MD regarding regarding transfer, to [facility]. ED course: Pt will need higher level of care and Vascular surgery evaluation. D/W Dr Palomares interventional radiologist who performed stent placement 3 days ago. Recommended transfer to [facility]. Discussed with Dr Ramirez vascular surgery who agrees to accept for transfer to [facility]. 11/29 21:25 Order name: Basic Metabolic Panel; Complete Time: 22:20 11/29 22:20 Interpretation: Normal except: GLUC 293; GFR 56. 11/29 21:25 Order name: CBC with Diff; Complete Time: 22:20 11/29 22:20 Interpretation: Normal except: WBC 13.9; HGB 10.7; HCT 33.0; MCV 83.8; PLT 477; NEUT A tw4 9.7. 11/29 21:25 Order name: LFT's; Complete Time: 22:20 11/29 22:21 Interpretation: Normal except: AST 7; ALK 122; ALB 2.7; GLOB 5.3; A/G 0.5. 11/29 21:25 Order name: Magnesium; Complete Time: 22:20 11/29 21:25 Order name: NT PRO-BNP; Complete Time: 22:20 11/29 22:21 Interpretation: Normal except: NT PRO-BNP 299. 11/29 21:25 Order name: PT-INR; Complete Time: 22:20 11/29 22:21 Interpretation: Normal except: PT 13.7. 11/29 21:25 Order name: Troponin (emerg Dept Use Only); Complete Time: 22:20 11/29 21:25 Order name: Cardiac monitoring; Complete Time: 22:00 11/29 21:25 Order name: EKG - Nurse/Tech; Complete Time: 22:00 11/29 21:25 Order name: IV Saline Lock; Complete Time: 22:00 11/29 21:25 Order name: Labs collected and sent; Complete Time: 22:00 11/29 21:25 Order name: O2 Per Protocol; Complete Time: 22:00 tw4 11/29 21:25 Order name: O2 Sat Monitoring; Complete Time: 22: tw4 EC:57 Rate is 74 beats/min. Rhythm is regular. QRS [place] is Normal. RI interval is normal. QRS tw4 interval is normal. QT interval is normal. No Q waves. T waves are Normal. No ST changes noted. Clinical impression: Sinus arrythmia. Interpreted by me. Reviewed by me. Administered Medications: 11/29 21:58 Drug: morphine 4 mg {Note: RASS 0.} Route: IVP; Site: right antecubital; 23:15 Follow up: Response: No adverse reaction; Pain is decreased; RASS: Alert and Calm (0) 22:00 Drug: Zofran (Ondansetron) 4 mg Route: IVP; Site: right antecubital; 23:15 Follow up: Response: No adverse reaction; Nausea is decreased 11/30 00:51 Drug: Insulin Regular Human 5 units {Co-Signature: lp1 (Ambar Tirado RN).} Route: IVP; Site: right antecubital; 01:39 Follow up: Response: No adverse reaction 01:18 Drug: vancoMYCIN 1 grams Route: IVPB; Infused Over: 2 hrs; Site: right antecubital; 01:38 Follow up: Response: No adverse reaction; IV Status: Infusion continued upon transfer Disposition: 11/30/19 23:57 Transfer ordered to [facility]. Diagnosis are Other peripheral vascular diseases, Arterial occlusion. - Reason for transfer: Higher level of care. - Accepting physician is Dr Ramirez. - Condition is Stable. - Problem is an ongoing problem. - Symptoms are unchanged. Signatures: Dispatcher [employer] Mahsa Mccullough RN RN aj1 Eagle Moore Chico Ricci MD MD tw4 Ambar Tirado RN lp1 Corrections: (The following items were deleted from the chart) 01:39 11/29 23:57 11/30/2019 23:57 Transfer ordered to [facility]. Diagnosis is Other peripheral vascular diseases; Arterial occlusion. Reason for transfer: Higher level of care. Accepting physician is Dr Ramirez. Condition is Stable. Problem is an ongoing problem. Symptoms are unchanged. tw4
--- NOTE | 2019-11-30 23:58 | ER ---
Nurse's Notes [facility] Name: Maria Isabel Stacy Age: 74 yrs Sex: Female : 1945 Arrival Date: 11/30/2019 Time: 21:04 Bed 18 Private MD: TRACEY ART Diagnosis: Other peripheral vascular diseases;Arterial occlusion Presentation: 11/29 21:09 Chief complaint: Patient's son or daughter states: She had her toe amputated a month aj1 ago for gangrene. He has been doing wound care and today when he was doing her wound care, and he noticed that the toe next to the amputated one had turned black, and it wasn't like that 2 days ago. Patient is reporting severe pain to the right foot. Coronavirus screen: Patient denies a cough. Patient denies shortness of breath or difficulty breathing. Patient denies measured and/or subjective temperature greater than 100.4F prior to today's visit. Patient denies travel on a cruise ship or to a country the [facility] currently lists as an affected area. Ebola Screen: Patient denies travel to an Ebola-affected area in the 21 days before illness onset. Initial Sepsis Screen: Does the patient meet any 2 criteria? No. Patient's initial sepsis screen is negative. Does the patient have a suspected source of infection? Yes: Skin breakdown/wound. Risk Assessment: Do you want to hurt yourself or someone else? Patient reports no desire to harm self or others. Onset of symptoms was November 30, 2019. 21:09 Method Of Arrival: Wheelchair aj1 21:09 Acuity: DORCAS 3 aj1 Triage Assessment: 21:13 General: Appears in no apparent distress. uncomfortable, Behavior is calm, cooperative, aj1 appropriate for age. Pain: Complains of pain in right foot. Neuro: Level of Consciousness is awake, alert, obeys commands. Cardiovascular: Patient's skin is warm and dry. Respiratory: Airway is patent Respiratory effort is even, unlabored, Respiratory pattern is regular, symmetrical. Historical: - Allergies: 21:13 No Known Allergies; aj1 - Home Meds: 21:13 insulin [Active]; aj1 - PMHx: 21:13 Diabetes - NIDDM; aj1 - Immunization history:: Adult Immunizations up to date. - Social history:: Smoking status: Patient/guardian denies using tobacco. Screenin:30 Abuse screen: Denies threats or abuse. Denies injuries from another. Nutritional wh screening: No deficits noted. Tuberculosis screening: No symptoms or risk factors identified. Fall Risk None identified. Assessment: 21:30 General: Appears in no apparent distress. Behavior is calm, cooperative, appropriate wh for age. Pain: Complains of pain in right foot Pain does not radiate. Pain currently is 8 out of 10 on a pain scale. Quality of pain is described as shooting, Pain began 2-3 days ago. Is continuous. Neuro: Level of Consciousness is awake, alert, obeys commands, Oriented to person, place, time, situation, Appropriate for age. Cardiovascular: Heart tones S1 S2. Respiratory: Airway is patent Respiratory effort is even, unlabored, Respiratory pattern is regular, symmetrical, Breath sounds are clear bilaterally. GI: Abdomen is flat, non-distended. : No signs and/or symptoms were reported regarding the genitourinary system. EENT: No signs and/or symptoms were reported regarding the EENT system. Derm: Skin is black, in right 2nd toe Wound noted post surgical wound in right 3rd toe. Musculoskeletal: Amputation of right third toe. Swelling present in right second toe. 23:00 Reassessment: Patient appears in no apparent distress at this time. No changes from previously documented assessment. Patient and/or family updated on plan of care and expected duration. Pain level reassessed. Patient is alert, oriented x 3, equal unlabored respirations, skin warm/dry/pink. 11/30 00:15 Reassessment: Patient appears in no apparent distress at this time. No changes from previously documented assessment. Patient and/or family updated on plan of care and expected duration. Pain level reassessed. Patient is alert, oriented x 3, equal unlabored respirations, skin warm/dry/pink. 01:36 Reassessment: Patient appears in no apparent distress at this time. No changes from previously documented assessment. Patient and/or family updated on plan of care and expected duration. Pain level reassessed. Patient is alert, oriented x 3, equal unlabored respirations, skin warm/dry/pink. Patient states feeling better. Patient states symptoms have improved. Vital Signs: 11/29 21:09 BP 116 / 74; Pulse 84; Resp 18; Temp 97.8(TE); Pulse Ox 99% on R/A; Weight 66.68 kg aj1 (R); Height 5 ft. 4 in. (162.56 cm) (R); Pain 10/10; 22:00 BP 133 / 57; Pulse 62; Resp 18; Pulse Ox 98% on R/A; wh 23:00 BP 141 / 62; Pulse 58; Resp 18; Pulse Ox 99% on R/A; 11/30 00:00 BP 158 / 65; Pulse 60; Resp 18; Pulse Ox 94% on R/A; wh 01:00 BP 147 / 66; Pulse 58; Resp 18; Pulse Ox 99% on R/A; wh 11/29 21:09 Body Mass Index 25.23 (66.68 kg, 162.56 cm) [facility] ED Course: 11/29 21:04 Patient arrived in ED. es 21:05 TRACEY ART is Private Physician. es 21:12 Triage completed. aj1 21:13 Arm band placed on Patient placed in an exam room. aj1 21:14 Eagle Moore is Primary Nurse. 21:15 Chico Ricci MD is Attending Physician. tw4 21:30 Patient has correct armband on for positive identification. Placed in gown. Bed in low wh position. Call light in reach. Side rails up X 1. certified professional ergonomist on. Pulse ox on. NIBP on. 21:51 Inserted saline lock: 20 gauge in right antecubital area, using aseptic technique. [facility] 11/30 01:37 No provider procedures requiring assistance completed. Patient transferred, IV remains in place. Administered Medications: 11/29 21:58 Drug: morphine 4 mg {Note: RASS 0.} Route: IVP; Site: right antecubital; 23:15 Follow up: Response: No adverse reaction; Pain is decreased; RASS: Alert and Calm (0) 22:00 Drug: Zofran (Ondansetron) 4 mg Route: IVP; Site: right antecubital; 23:15 Follow up: Response: No adverse reaction; Nausea is decreased 11/30 00:51 Drug: Insulin Regular Human 5 units {Co-Signature: lp1 (Ambar Tirado RN).} Route: IVP; Site: right antecubital; 01:39 Follow up: Response: No adverse reaction 01:18 Drug: vancoMYCIN 1 grams Route: IVPB; Infused Over: 2 hrs; Site: right antecubital; 01:38 Follow up: Response: No adverse reaction; IV Status: Infusion continued upon transfer Outcome: 11/29 23:57 ER care complete, transfer ordered by . tw4 11/30 01:37 Transferred by ground EMS to [facility], Transfer form completed. X-rays sent w/ patient. Note: Report Given to Van Simental RN and [facility] Condition: stable Discharge instructions given to patient, Instructed on the need for transfer. 01:39 Patient left the ED. Signatures: Mahsa Gonzalez, RN RN aj1 Claude, Eagle Ashby Terrence, MD MD tw4 Dionisio Douglass 4 Ambar Tirado RN lp1
[2019-12-01] MEDS ORDERED: INSULIN -REGULAR HUMAN 50 UNIT/0.5 ML ML ONE (00:57)
[2019-12-01] MEDS ORDERED: NA CHLORIDE 0.9% 250 ML ONE (01:17)
[2019-12-01] MEDS ORDERED: VANCOMYCIN 1 GM/VIAL ONE ×2 (01:17→01:24)
[2019-12-01 01:48] VITALS: TEMP 97.8
[2019-12-01 01:54] VITALS: BP 147/66; O2SAT 99
== END 2019-12-01 01:39 | disposition short-term general hospital (02) ==
LOC: ER 21:00
DX: I73.89 Other specified peripheral vascular diseases (principal); I70.90 Unspecified atherosclerosis; Z89.421 Acquired absence of other right toe(s); E11.9 Type 2 diabetes mellitus without complications; Z79.4 Long term (current) use of insulin
CPT/HCPCS: 96365; 93005; 85025; 80048; 36415; 83735; 85610; 80076; 84484; 83880; 96375; 99285; J7030; J2405

== ENCOUNTER 2020-03-19 15:25 | Emergency (ER) | payer OTHER ==
[2020-03-19] MEDS ORDERED: LIDOCAINE 1% MPF 30 ML VIAL ONE (16:38)
--- NOTE | 2020-03-19 18:07 | ER ---
Nurse's Notes [facility] Name: Maria Isabel Stacy Age: 74 yrs Sex: Female : 1945 Arrival Date: 03/19/2020 Time: 15:33 Bed 8 Private MD: Diagnosis: Cutaneous abscess of other sites-labia;Local infection of the skin and subcutaneous tissue, unspecified Presentation: 03/19 15:35 Chief complaint: Patient states: "I had a skin graft from her leg and now she is having jd3 pimples popping up around that area. I am also having a boil that is under my stomach in the crease area that is growing in size.". Coronavirus screen: At this time, the client does not indicate any symptoms associated with coronavirus-19. Ebola Screen: Patient negative for fever greater than or equal to 101.5 degrees Fahrenheit, and additional compatible Ebola Virus Disease symptoms. Initial Sepsis Screen: Does the patient meet any 2 criteria? No. Patient's initial sepsis screen is negative. Does the patient have a suspected source of infection? No. Patient's initial sepsis screen is negative. Risk Assessment: Do you want to hurt yourself or someone else? Patient reports no desire to harm self or others. Onset of symptoms was March 14, 2020. 15:35 Method Of Arrival: Wheelchair jd3 15:35 Acuity: DORCAS 3 jd3 Historical: - Allergies: 15:38 No Known Allergies; jd3 - Home Meds: 15:38 insulin [Active]; jd3 - PMHx: 15:38 Diabetes - NIDDM; jd3 - PSHx: 15:38 all toes amputated from right foot; jd3 - Immunization history:: Adult Immunizations up to date. - Social history:: Smoking status: Patient denies any tobacco usage or history of. Screenin:50 Abuse screen: Denies threats or abuse. Nutritional screening: No deficits noted. aa5 Tuberculosis screening: No symptoms or risk factors identified. Fall Risk Secondary diagnosis (15 points) partial amputation of right foot . Total Meyer Fall Scale indicates No Risk (0-24 pts). Assessment: 15:50 General: Appears in no apparent distress. comfortable, Behavior is calm, cooperative. aa5 Pain: Complains of pain in left labia Pain currently is 10 out of 10 on a pain scale. Quality of pain is described as tender. Neuro: Level of Consciousness is awake, alert, obeys commands, Oriented to person, place, time, situation. Cardiovascular: Patient's skin is warm and dry. Respiratory: Airway is patent Respiratory effort is even, unlabored, Respiratory pattern is regular, symmetrical. GI: No signs and/or symptoms were reported involving the gastrointestinal system. : No signs and/or symptoms were reported regarding the genitourinary system. EENT: No signs and/or symptoms were reported regarding the EENT system. Derm: Skin is pink, warm \\T\\ dry. Abscess noted to left labia that is not draining. Pt reports sores around skin graft to right thigh, healing skin graft noted, pt reports skin graft was completed approximately 3-4 weeks ago and skin graft was used to right foot after amputation. Right foot amputation with no s/s of infection noted. Dressed with gauze and Kerlix. Musculoskeletal: Range of motion: intact in all extremities, Partial right foot amputation noted. 17:00 Reassessment: Patient is alert, oriented x 3, equal unlabored respirations, skin aa5 warm/dry/pink. Awaiting I\\T\\D. 18:00 Reassessment: Patient is alert, oriented x 3, equal unlabored respirations, skin aa5 warm/dry/pink. 19:10 Reassessment: Patient appears in no apparent distress at this time. Patient is alert, rr5 oriented x 3, equal unlabored respirations, skin warm/dry/pink. discharge instruction given and explained without complaints made. Vital Signs: 15:38 BP 143 / 77; Pulse 75; Resp 16 S; Temp 98.4(O); Pulse Ox 100% on R/A; Weight 61.23 kg jd3 (R); Height 5 ft. 4 in. (162.56 cm) (R); Pain 10/10; 17:00 BP 155 / 80; Pulse 78; Resp 16 S; Pulse Ox 98% on R/A; aa5 19:00 BP 133 / 75; Pulse 70; Resp 17; Pulse Ox 98% ; rr5 15:38 Body Mass Index 23.17 (61.23 kg, 162.56 cm) jd3 ED Course: 15:33 Patient arrived in ED. ag5 15:37 Triage completed. jd3 15:38 Arm band placed on. jd3 15:44 Patient has correct armband on for positive identification. Placed in gown. Bed in low mh5 position. Call light in reach. Side rails up X 1. Warm blanket given. Pulse ox on. NIBP on. 15:45 Zora Castillo, RUTH is Primary Nurse. aa5 15:48 Dante Richard PA is PHCP. jr8 15:48 Haim Fox MD is Attending Physician. jr8 18:00 Assist provider with I \\T\\ D: of an abscess on Set up I\\T\\D tray. Performed by Dante HERRERA Wound packed. iodoform gauze, Dressing with 4X4s, Patient tolerated well. 19:18 Patient did not have IV access during this emergency room visit. rr5 Administered Medications: 18:00 Drug: Lidocaine (1 %) 1 vials {Note: administered to left labia by SHARON for I\\T\\D.} Volume: aa5 5 ml; Route: Infiltration; 19:00 Follow up: Response: No adverse reaction rr5 Outcome: 18:06 Discharge ordered by . jr8 19:18 Discharged to home via wheelchair. rr5 19:18 Condition: stable 19:18 Discharge instructions given to patient, Instructed on discharge instructions, follow up and referral plans. medication usage, Demonstrated understanding of instructions, follow-up care, medications, Prescriptions given X 2. 19:19 Patient left the ED. rr5 Signatures: Zora Castillo RN RN aaDante Carias PA PA jr8 Maria Isabel Kowalski 5 Lang Huitron RN RN jd3 Roque, Raymond, RN RN rr5 Clem Akbar 5 Corrections: (The following items were deleted from the chart) 19:45 19:18 No provider procedures requiring assistance completed. rr5 aa5 19:45 18:44 Assist provider with I \\T\\ D: of an abscess on Set up I\\T\\D tray. Performed by Dante HERRERA Wound packed. iodoform gauze, Dressing with 4X4s, Patient tolerated well. aa5 19:47 15:50 Derm: Skin is pink, warm \\T\\ dry. Abscess noted to left labia that is not draining aa5 aa5
--- NOTE | 2020-03-19 18:07 | EDPHYS ---
Physician Documentation [facility] Name: Maria Isabel Stacy Age: 74 yrs Sex: Female : 1945 Arrival Date: 03/19/2020 Time: 15:33 Bed 8 Private MD: ED Physician Haim Fox HPI: 03/19 16:56 This 74 yrs old Female presents to ER via Wheelchair with complaints of Boil, jr8 Itching. 16:56 Onset: The symptoms/episode began/occurred gradually, 2 day(s) ago. Possible cause(s): jr8 unknown. Associated signs and symptoms: The patient has no apparent associated signs or symptoms. Modifying factors: the symptoms are alleviated by nothing, the symptoms are aggravated by nothing. Severity of symptoms: At their worst the symptoms were mild, in the emergency department the symptoms are unchanged. The patient has not experienced similar symptoms in the past. The patient has not recently seen a physician. Patient stated that she has pain to vaginal region and also has lumps on right leg near graft that are tender to touch . Historical: - Allergies: 15:38 No Known Allergies; jd3 - Home Meds: 15:38 insulin [Active]; jd3 - PMHx: 15:38 Diabetes - NIDDM; jd3 - PSHx: 15:38 all toes amputated from right foot; jd3 - Immunization history:: Adult Immunizations up to date. - Social history:: Smoking status: Patient denies any tobacco usage or history of. ROS: 16:56 Eyes: Negative for injury, pain, redness, and discharge, ENT: Negative for injury, jr8 pain, and discharge, Neck: Negative for injury, pain, and swelling, Cardiovascular: Negative for chest pain, palpitations, and edema, Respiratory: Negative for shortness of breath, cough, wheezing, and pleuritic chest pain, Abdomen/GI: Negative for abdominal pain, nausea, vomiting, diarrhea, and constipation, Back: Negative for injury and pain, MS/Extremity: Negative for injury and deformity, Neuro: Negative for headache, weakness, numbness, tingling, and seizure. 16:56 Skin: Positive for abscess, of the labia, lesions to right leg. Exam: 16:56 Constitutional: This is a well developed, well nourished patient who is awake, alert, jr8 and in no acute distress. Cardiovascular: Regular rate and rhythm with a normal S1 and S2. No gallops, murmurs, or rubs. Normal PMI, no JVD. No pulse deficits. Respiratory: Lungs have equal breath sounds bilaterally, clear to auscultation and percussion. No rales, rhonchi or wheezes noted. No increased work of breathing, no retractions or nasal flaring. MS/ Extremity: Pulses equal, no cyanosis. Neurovascular intact. Full, normal range of motion. Neuro: Awake and alert, GCS 15, oriented to person, place, time, and situation. Cranial nerves II-XII grossly intact. Motor strength 5/5 in all extremities. Sensory grossly intact. Cerebellar exam normal. Normal gait. 16:56 : Pelvic Exam: External exam: Patient has indurated and fluctuant region to left labia majora without surrounding cellulitis , the nurse was present for the exam. 16:56 Skin: Patient has a few small red tender macular regions noted to right medial thigh. Vital Signs: 15:38 BP 143 / 77; Pulse 75; Resp 16 S; Temp 98.4(O); Pulse Ox 100% on R/A; Weight 61.23 kg jd3 (R); Height 5 ft. 4 in. (162.56 cm) (R); Pain 10/10; 17:00 BP 155 / 80; Pulse 78; Resp 16 S; Pulse Ox 98% on R/A; aa5 19:00 BP 133 / 75; Pulse 70; Resp 17; Pulse Ox 98% ; rr5 15:38 Body Mass Index 23.17 (61.23 kg, 162.56 cm) j Procedures: 18:06 I \T\ D: Incision and drainage was performed for an abscess of the left labia Prepped jr8 with Betadine, Anesthetized with 2 ml's 1% Lidocaine. Incised with #11 blade. Drained small amount purulent fluid. serosanguinous fluid. bloody fluid. Loculations removed. Abscess cavity explored. Packed with iodoform gauze, the patient tolerated the procedure well. MDM: 15:50 Patient medically screened. [facility] 18:05 Data reviewed: vital signs, nurses notes, and as a result, I will discharge patient. [facility] Data interpreted: Pulse oximetry: on room air is 100 %. Interpretation: normal. Counseling: I had a detailed discussion with the patient and/or guardian regarding: the historical points, exam findings, and any diagnostic results supporting the discharge/admit diagnosis, the need for outpatient follow up, a family practitioner, to return to the emergency department if symptoms worsen or persist or if there are any questions or concerns that arise at home. 03/19 16:20 Order name: Dressing - Wound; Complete Time: 18:36 jr8 03/19 16:20 Order name: Gloves, Sterile; Complete Time: 16:25 jr8 03/19 16:20 Order name: Setup Suture Tray; Complete Time: 16:25 jr8 Administered Medications: 18:00 Drug: Lidocaine (1 %) 1 vials {Note: administered to left labia by SHARON for I\T\D.} Volume: aa5 5 ml; Route: Infiltration; 19:00 Follow up: Response: No adverse reaction rr5 Disposition: 03/19/20 18:06 Discharged to Home. Impression: Cutaneous abscess of other sites - labia, Local infection of the skin and subcutaneous tissue, unspecified. - Condition is Stable. - Discharge Instructions: Skin Abscess, Incision and Drainage, Care After. - Prescriptions for Bactroban 2 % Topical Ointment - Apply to affected area 1 application by TOPICAL route every 12 hours; 30 gram. Bactrim DS 800- 160 mg Oral Tablet - take 1 tablet by ORAL route every 12 hours for 10 days; 20 tablet. - Medication Reconciliation Form, Thank You Letter, Antibiotic Education, Prescription Opioid Use form. - Follow up: Private Physician; When: 5 - 6 days; Reason: Wound Recheck, Recheck today's complaints, Continuance of care, Re-evaluation by your physician. - Problem is new. - Symptoms have improved. Addendum: 03/22/2020 17:54 Co-signature as Attending Physician, Haim Fox MD. r n Signatures: Haim Fox MD MD rn Calderon, Audri RN RN aa5 Dante Richard PA PA jr8 Lang Huitron RN RN jd3 Abe Huitron RN RN rr5 Corrections: (The following items were deleted from the chart) 03/19 19:19 18:06 03/19/2020 18:06 Discharged to Home. Impression: Cutaneous abscess of other sites rr5 - labia; Local infection of the skin and subcutaneous tissue, unspecified. Condition is Stable. Forms are Medication Reconciliation Form, Thank You Letter, Antibiotic Education, Prescription Opioid Use. Follow up: Private Physician; When: 5 - 6 days; Reason: Wound Recheck, Recheck today's complaints, Continuance of care, Re-evaluation by your physician. Problem is new. Symptoms have improved. jr8
[2020-03-19 19:35] VITALS: BP 143/77; TEMP 98.4; O2SAT 100
--- OUTSIDE RECORDS SUMMARY | 2020-03-24 20:53 | XMS REPORT | Clinical Summary ---
:1945 Author Organization [facility] Address [address] [place] [address] Care Team Providers Name Role Phone Pcp Primary Care Provider Unavailable Mushtaq Guzman Unavailable Allergies No Known Allergies Medications Medication Sig Dispensed Refills Start End Date Status Date aspirin 81 MG Take 1 tablet (81 90 tablet 3 Active chewable tablet mg total) by mouth 0 daily. atorvastatin Take 1 tablet (80 90 tablet 0 Active (LIPITOR) 80 MG mg total) by mouth 0 tablet nightly. docusate sodium Take 1 capsule 30 capsule 0 Active (COLACE) 100 MG (100 mg total) by 0 capsule mouth daily as needed for Constipation. insulin glargine Inject 7 Units 10 mL 0 Active (LANTUS) 100 subcutaneously 0 unit/mL injection nightly Use as directed . Missing or . 0 Active Non-Formulary MedicationIndicat ions: Antibiotic name unknown clopidogreL Take 75 mg by 0 Acti ve (PLAVIX) 75 mg mouth daily. 0 tablet collagenase Apply 1 0 Active (SANTYL) 250 application 0 units/g ointment topically daily Apply sergio thick amount to wound daily. glipiZIDE Take 10 mg by 0 Active (GLUCOTROL XL) 10 mouth daily. 0 MG 24 hr tablet HYDROcodone-aceta Take 1 tablet by 0 Active minophen (NORCO mouth every 6 0 5-325) 5-325 mg (six) hours as per tablet needed for Pain. nortriptyline Take 25 mg by 0 Ac tive (PAMELOR) 25 MG mouth daily. 0 capsule pantoprazole Take 40 mg by 0 Act yeimy (PROTONIX) 40 MG mouth daily. 0 tablet polyethylene Take 17 g by mouth 0 Active glycol (GLYCOLAX) daily as needed 0 17 gram packet for Constipation. psyllium Take 1 packet by 0 Act yeimy (METAMUCIL FIBER mouth daily. 0 SINGLES) 3.4 gram packet sodium Apply 1 0 Active hypochlorite application 0 (DAKIN'S topically daily. SOLUTION) 0.25 % external solution traMADoL (ULTRAM) Take 1 tablet by 0 Active 50 mg tablet mouth every 6 0 (six) hours as needed for Pain. lisinopriL Take 1 tablet (5 30 tablet 0 02/17/20 Ac tive (PRINIVIL,ZESTRIL mg total) by mouth 0 21 ) 5 MG tablet daily. ferrous sulfate Take 1 tablet (325 30 tablet 0 02/16 Active 325 (65 FE) MG mg total) by mouth 0 21 tablet daily. aspirin 81 MG Take 81 mg by 0 02/06/20 Di scontinued chewable tablet mouth daily. 0 20 insulin glargine Inject 10 Units 0 0 Discontinued (LANTUS) 100 subcutaneously 20 unit/mL injection nightly Use as directed . clopidogreL Take 1 tablet by 0 12/30/19 D iscontinued (PLAVIX) 75 mg mouth daily. 0 20 tablet atorvastatin Take 1 tablet by 0 12/30/19 Discontinued (LIPITOR) 40 MG mouth nightly. 0 20 tablet SANTYL 250 Apply 1 0 12/30/19 Discontin ued unit/gram application 0 20 ointment topically daily Andres nickel thick amount to wound QD. HYDROcodone-aceta Take 1 tablet by 0 12/29 Discontinued minophen (NORCO mouth every 6 0 20 5-325) 5-325 mg (six) hours as per tablet needed for Pain. pantoprazole Take 1 tablet by 0 12/30/19 Discontinued (PROTONIX) 40 MG mouth daily. 0 20 tablet traMADoL (ULTRAM) Take 1 tablet by 0 12/29 Discontinued 50 mg tablet mouth every 6 0 20 (six) hours as needed for Pain. apixaban Take 2.5 mg by 0 12/05/19 Disco ntinued (ELIQUIS) 2.5 mg mouth 2 (two) 20 Tab times daily. tabletIndications : treatment to prevent blood clots in chronic atrial fibrillation metoprolol Take 25 mg by 0 12/05/19 Disco ntinued succinate mouth daily. 20 (TOPROL-XL) 25 MG 24 hr tablet furosemide Take 40 mg by 0 12/05/19 Disco ntinued (LASIX) 40 MG mouth daily. 20 tablet aspirin 81 MG Take 1 tablet (81 90 tablet 3 12/30/19 Discontinued chewable tablet mg total) by mouth 0 20 daily. atorvastatin Take 1 tablet (80 90 tablet 0 12/30/19 Discontinued (LIPITOR) 80 MG mg total) by mouth 0 20 tablet nightly. insulin glargine Inject 7 Units 10 mL 0 12/30/19 Discontinued (LANTUS) 100 subcutaneously 0 20 unit/mL injection nightly Use as directed . ascorbic acid, Take 1 tablet (500 120 tablet 0 12/29 Discontinued vitamin C, mg total) by mouth 0 20 (VITAMIN C) 500 2 (two) times MG tablet daily for 60 days. docusate sodium Take 1 capsule 30 capsule 0 12/30/19 Discontinued (COLACE) 100 MG (100 mg total) by 0 20 capsule mouth daily as needed for Constipation. gabapentin Take 1 capsule 180 capsule 0 12/30/19 Di scontinued (NEURONTIN) 300 (300 mg total) by 0 20 MG capsule mouth 3 (three) times daily for 60 days. melatonin 3 mg Take 1 tablet (3 60 tablet 0 12/30/19 Discontinued Tab tablet mg total) by mouth 0 20 nightly for 60 days. metFORMIN Take 1 tablet (500 120 tablet 0 12/30/19 Discontinued (GLUCOPHAGE) 500 mg total) by mouth 0 20 MG tablet 2 (two) times daily with breakfast and dinner for 60 days. multivitamin Take 1 tablet by 60 tablet 0 12/30/19 Discontinued (THERAGRAN) mouth daily for 60 0 20 tablet days. polyethylene Take 17 g by mouth 14 each 0 12/30/19 Discontinued glycol (GLYCOLAX) daily as needed 0 20 17 gram packet (constipation). ticagrelor Take 1 tablet (90 120 tablet 0 12/30/19 Discontinued (BRILINTA) 90 mg mg total) by mouth 0 20 Tab tablet 2 (two) times daily for 60 days. zinc sulfate Take 1 capsule 60 capsule 0 12/30/19 D iscontinued (ZINCATE) 220 (220 mg total) by 0 20 (50) mg capsule mouth daily for 60 days. ascorbic acid, Take 1 tablet (500 120 tablet 0 12/29 Discontinued vitamin C, mg total) by mouth 0 20 (VITAMIN C) 500 2 (two) times MG tablet daily for 60 days. ascorbic acid, Take 1 tablet (500 120 tablet 0 02/27 vitamin C, mg total) by mouth 0 20 (VITAMIN C) 500 2 (two) times MG tablet daily for 60 days. gabapentin Take 1 capsule 180 capsule 0 02/28/20 Ex pired (NEURONTIN) 300 (300 mg total) by 0 20 MG capsule mouth 3 (three) times daily for 60 days. melatonin 3 mg Take 1 tablet (3 60 tablet 0 02/28/20 Tab tablet mg total) by mouth 0 20 nightly for 60 days. metFORMIN Take 1 tablet (500 120 tablet 0 02/28/20 (GLUCOPHAGE) 500 mg total) by mouth 0 20 MG tablet 2 (two) times daily with breakfast and dinner for 60 days. multivitamin Take 1 tablet by 60 tablet 0 02/29/20 (THERAGRAN) mouth daily for 60 0 20 tablet days. polyethylene Take 17 g by mouth 14 each 0 02/06/20 Discontinued glycol (GLYCOLAX) daily as needed 0 20 17 gram packet (constipation). ticagrelor Take 1 tablet (90 120 tablet 0 02/28/20 (BRILINTA) 90 mg mg total) by mouth 0 20 Tab tablet 2 (two) times daily for 60 days. zinc sulfate Take 1 capsule 60 capsule 0 02/29/20 E xpired (ZINCATE) 220 (220 mg total) by 0 20 (50) mg capsule mouth daily for 60 days. Active Problems Problem Noted Date Post-operative state 02/10/2020 Surgical aftercare, skin or subcutaneous tissue 2019 Status post amputation of foot through metatarsal bone 12/18/2019 Impaired mobility and activities of daily living 12/17 Uncontrolled type 2 diabetes mellitus with hyperglycem ia 12/18/2019 Post-operative pain 12/18/2019 Anemia 12/18/2019 Thrombocytosis 12/18/2019 Gangrene of toe of right foot 12/01/2019 Encounters Date Type Specialty Care Team Description 02/11/2020 Orders Only Cardiology Mouna Thayer 02/10/2020 Surgery Gabriel Silva DEBRIDEMENT/I&D ,WOUND [place]Y [place] EXTREMITY LOWER 02/10/2020 Anesthesia Event Amy Horowitz MD 02/10/2020 - Hospital General Internal Gabriel Silva Anemia, uns pecified type; 02/17/2020 Encounter Medicine BOY [place] Gangrene of toe of right foot (HCC); Ammy, Impaired mobili ty and activities of daily living; Manuel Bianchi MD Post-operative pain; [place], 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 ([facility]); MD Job Surgical afterc are, skin or subcutaneous tissue; Thrombocytosis (HCC); Uncontrolled ty pe 2 diabetes mellitus with hyperglycemia (HCC); Iron deficiency anemia secondary to inadequate dietary iron intake; Essential hyper tension 02/10/2020 Travel 02/08/2020 Orders Only Tawanna Burgos 02/06/2020 Hospital Pre-Admission Testing Gabriel Silva Screen ing for viral Encounter BOY [place] disease 02/06/2020 Travel 02/05/2020 Orders Only Cardiology Jeovany, Screening for v iral Mouna Hart disease (Prima ry Dx) 01/21/2020 [facility] Physical Medicine and Jason Haas MD Encounter Rehabilitation 12/19/2019 Travel 12/18/2019 - [facility] Physical Medicine and Dada Garcia, Anemia , unspecified type; 12/31/2019 Encounter Rehabilitation MD Pat Impaired mobi lity and activities of daily living; Post-operative pain; 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 (HCC); Thrombocytosis ([facility]); Uncontrolled ty pe 2 diabetes mellitus with hyperglycemia ([facility]); Constipation, u nspecified constipation type; At risk for imp airment of sleep; Gangrene of toe of right foot ([facility]); Adjustment diso rder with other symptom; Flexor tenosyno vitis of finger; Diarrhea, unspe cified type; Type 2 diabetes mellitus with diabetic peripheral angiopathy and gangrene, with long-term current use of insulin ([facility]) 12/12/2019 Anesthesia Event Adolfo Lizarraga, REMOTE BROADCAST ENGINEER 12/12/2019 Surgery Gabriel Silva DEBRIDEMENT/I&D ,WOUND Karlos, DPM EXTREMITY LOWER 12/05/2019 Anesthesia Event Danial Horner CRNA 12/05/2019 Surgery Gabriel Silva AMPUTATION,FOOT Karlos, DPM 12/05/2019 Orders Only General Internal Medicine 12/03/2019 Surgery Franco, PERIPHERAL JONO OS / Giovanny AORTOGRAM MD Lionel 12/02/2019 Anesthesia Event Jef Abdul, REMOTE BROADCAST ENGINEER 12/02/2019 Surgery Gabriel Silva AMPUTATION,TOE Karlos, DPM 12/01/2019 - Hospital Cardiology Ronen, Dereje Gangrene of t oe of right foot ([facility]); 12/18/2019 Encounter MD Lucretia 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; Gregory, Uncontrolled ty pe 2 DM with peripheral circulatory disorder ([facility]); Suzanne Boyce MD Essential hypererythropoietinemia; Nikolayreyjoão, Therapeutic opi oid-induced constipation (OIC); Clayton PAD (peripheral artery disease) ([facility]); Wade, Impaired mobili ty and ADLs; Pelvic mass; Reilly Noreen Diabetic foot ( [facility]); MD Rich Soni osteomy elitis, acute ([facility]) 12/01/2019 Travel after 03/24/2019 Family History Medical History Relation Name Comments Diabetes type II Father Relation Name Status Comments Father Social History Tobacco Use Types Packs/Day Years Used Date Never Smoker Smokeless Tobacco: Never Used Alcohol Use Drinks/Week oz/Week Comments No Alcohol Habits Answer Date Recorded How often do you have a drink containing alcohol? Never 12/01/2019 How many drinks containing alcohol do you have on a typical Not asked day when you are drinking? How often do you have six or more drinks on one occasion? No t asked Sex Assigned at Date Recorded Not on file Job Start Date Occupation Industry Not on file Not on file Not on file Travel History Travel Start Travel End No recent travel history available. Last Filed Vital Signs Vital Sign Reading Time Taken Blood Pressure 162/74 02/17/2020 1:00 PM CDT Pulse 69 02/17/2020 1:00 PM CDT Temperature 35.8 C (96.4 F) 02/17/2020 1:00 PM CDT Respiratory Rate 18 02/17/2020 1:00 PM CDT Oxygen Saturation 100% 02/17/2020 1:00 PM CDT Inhaled Oxygen Concentration - - Weight 56.2 kg (123 lb 14.4 oz) 02/10/2020 11:4 3 AM CDT Height 162.6 cm (5' 4") 02/10/2020 11:43 AM CDT Body Mass Index 21.27 02/10/2020 11:43 AM CDT Plan of Treatment Health Maintenance Due Date Last Done Comments BREAST CANCER SCREENING 1945 COLON CANCER SCREENING COLONOSCOPY 1945 DIABETIC EYE EXAM 1955 DIABETIC FOOT EXAM 1955 URINE MICROALBUMIN 1955 MEDICARE ANNUAL WELLNESS (YEAR 2 08/17/2018 or FIRST YEAR if no IPPE) INFLUENZA VACCINE (#1) 2020 03/26/2019, 03/26/2019, 04/10/2018, Additional history exists HEMOGLOBIN A1C 03/03/2020 12/02/2019 PNEUMOCOCCAL 65+ LOW/MEDIUM RISK Completed 04/10/2018, 04/2017 Implants Implanted Type Area Channel Development Director Device Identifier Shelf Model / Expiration Serial / Date Lot Stent Synergy Otw 3.26p11pt [id number] - [id number] IMPLAN TS Right: [place] [id number] 03/03/2021 [id number] / Implanted: Qty: 1 on 12/03/2019 by Giovanny Franco MD Leg SCI:INTERV / CARDIOLOGY [id number] Stent Synergy Otw [id number] - [id number] IMPLAN TS Right: [place] [id number] 03/03/2021 [id number] / Implanted: Qty: 1 on 12/03/2019 by Giovanny Franco MD Leg SCI:INTERV / CARDIOLOGY [id number] Mesh Mtrx Wnd Bilyr 10x12.5sq [id number] - [id number] IMPLANTS Right: [employer] [id number] 07/18/2021 [id number] / Implanted: Qty: 1 on 12/12/2019 by Gabriel Silva, BOY F oot / [id number] Allogrft Corplex P 4ml Cp-[id number] - [id number] IMPLANTS Right: [employer] 07/19/2022 [id number] / Implanted: Qty: 1 on 02/10/2020 by Giovanny Franco MD Leg / [id number] Procedures Procedure Name Priority Date/Time Associated Comments Diagnosis POCT-GLUCOSE METER Routine 02/17/2020 12:55 Resul ts for this PM CDT procedure are i n the results section. POCT-GLUCOSE METER Routine 02/17/2020 7:48 Resul ts for this AM CDT procedure are i n the results section. POCT-GLUCOSE METER Routine 02/16/2020 9:14 Resul ts for this PM CDT procedure are i n the results section. POCT-GLUCOSE METER Routine 02/16/2020 4:28 Resul ts for this PM CDT procedure are i n the results section. POCT-GLUCOSE METER Routine 02/16/2020 11:35 Resul ts for this AM CDT procedure are i n the results section. POCT-GLUCOSE METER Routine 02/16/2020 7:34 Resul ts for this AM CDT procedure are i n the results section. POCT-GLUCOSE METER Routine 02/15/2020 9:19 Resul ts for this PM CDT procedure are i n the results section. POCT-GLUCOSE METER Routine 02/15/2020 3:51 Resul ts for this PM CDT procedure are i n the results section. POCT-GLUCOSE METER Routine 02/15/2020 12:16 Resul ts for this PM CDT procedure are i n the results section. POCT-GLUCOSE METER Routine 02/15/2020 8:01 Resul ts for this AM CDT procedure are i n the results section. CBC W/PLT COUNT & AUTO Routine 02/15/2020 4:24 R esults for this DIFFERENTIAL AM CDT procedure are i n the results section. CBC W/PLT COUNT & AUTO Routine 02/15/2020 4:24 R esults for this DIFFERENTIAL AM CDT procedure are i n the results section. POCT-GLUCOSE METER Routine 02/14/2020 9:16 Resul ts for this PM CDT procedure are i n the results section. POCT-GLUCOSE METER Routine 02/14/2020 3:56 Resul ts for this PM CDT procedure are i n the results section. POCT-GLUCOSE METER Routine 02/14/2020 1:01 Resul ts for this PM CDT procedure are i n the results section. POCT-GLUCOSE METER Routine 02/14/2020 8:07 Resul ts for this AM CDT procedure are i n the results section. CBC W/PLT COUNT & AUTO Routine 02/14/2020 5:43 R esults for this DIFFERENTIAL AM CDT procedure are i n the results section. CBC W/PLT COUNT & AUTO Routine 02/14/2020 5:43 R esults for this DIFFERENTIAL AM CDT procedure are i n the results section. POCT-GLUCOSE METER Routine 02/13/2020 8:59 Resul ts for this PM CDT procedure are i n the results section. POCT-GLUCOSE METER Routine 02/13/2020 3:43 Resul ts for this PM CDT procedure are i n the results section. POCT-GLUCOSE METER Routine 02/13/2020 11:26 Resul ts for this AM CDT procedure are i n the results section. POCT-GLUCOSE METER Routine 02/13/2020 7:50 Resul ts for this AM CDT procedure are i n the results section. CBC W/PLT COUNT & AUTO Routine 02/13/2020 4:24 R esults for this DIFFERENTIAL AM CDT procedure are i n the results section. CBC W/PLT COUNT & AUTO Routine 02/13/2020 4:24 R esults for this DIFFERENTIAL AM CDT procedure are i n the results section. POCT-GLUCOSE METER Routine 02/12/2020 9:03 Resul ts for this PM CDT procedure are i n the results section. POCT-GLUCOSE METER Routine 02/12/2020 4:22 Resul ts for this PM CDT procedure are i n the results section. POCT-GLUCOSE METER Routine 02/12/2020 11:38 Resul ts for this AM CDT procedure are i n the results section. PROTHROMBIN TIME/INR Routine 02/12/2020 8:32 Res ults for this AM CDT procedure are i n the results section. COMPREHENSIVE Routine 02/12/2020 8:32 Results fo r this METABOLIC PANEL AM CDT procedure ar e in the results section. POCT-GLUCOSE METER Routine 02/12/2020 7:51 Resul ts for this AM CDT procedure are i n the results section. POCT-GLUCOSE METER Routine 02/11/2020 10:19 Resul ts for this PM CDT procedure are i n the results section. POCT-GLUCOSE METER Routine 02/11/2020 3:22 Resul ts for this PM CDT procedure are i n the results section. POCT-GLUCOSE METER Routine 02/11/2020 11:48 Resul ts for this AM CDT procedure are i n the results section. CBC (HEMOGRAM ONLY) Routine 02/11/2020 11:16 Resu lts for this AM CDT procedure are i n the results section. BASIC METABOLIC PANEL Routine 02/11/2020 11:16 Re sults for this (7) AM CDT procedure are i n the results section. POCT-GLUCOSE METER Routine 02/11/2020 7:23 Resul ts for this AM CDT procedure are i n the results section. CBC W/PLT COUNT & AUTO Routine 02/11/2020 7:20 R esults for this DIFFERENTIAL AM CDT procedure are i n the results section. CBC W/PLT COUNT & AUTO Routine 02/11/2020 7:20 R esults for this DIFFERENTIAL AM CDT procedure are i n the results section. BASIC METABOLIC PANEL Routine 02/11/2020 7:20 Re sults for this (7) AM CDT procedure are i n the results section. VITAMIN B12 AND FOLATE Routine 02/10/2020 11:13 R esults for this PM CDT procedure are i n the results section. IRON, TIBC, % SAT. Routine 02/10/2020 11:13 Resul ts for this (WITHOUT FERRITIN) PM CDT procedure are in the results section. POCT-GLUCOSE METER Routine 02/10/2020 10:31 Resul ts for this PM CDT procedure are i n the results section. POCT-GLUCOSE METER Routine 02/10/2020 6:02 Resul ts for this PM CDT procedure are i n the results section. SKIN GRAFT,SPLIT 02/10/2020 4:06 Non-healing THICKNESS-LOWER PM CDT surgical wound, EXTREMITY initial encounter Case Notes [address] SILVA60 MINS FOR DEWEY ISN'T A DIALYSIS PATIENT Special Needs (PULSE LAVAGE, VERSA JET) SKIN GRAFT,SPLIT 02/10/2020 4:06 PM CDT Non-healing s urgical THICKNESS-LOWER EXTREMITY wound, initial encounter Case Notes [address] SILVA60 MINS FOR MIKEATIANA ISN'T A DIALYSIS PATIENT Special Needs (PULSE LAVAGE, VERSA JET) DEBRIDEMENT/I&D,WOUND EXTREMITY 02/10/2020 4:06 PM CD T Non-healing surgical LOWER wound, initial encounter Case Notes [address] SILVA60 MINS FOR MIKEATIANA ISN'T A DIALYSIS PATIENT Special Needs (PULSE LAVAGE, VERSA JET) POCT-GLUCOSE METER Routine 02/10/2020 11:22 AM Re sults for this CDT procedure are i n the results section. BASIC METABOLIC PANEL Routine 02/06/2020 11:36 AM Results for this (7) CDT procedure are i n the results section. HEMOGLOBIN Routine 02/06/2020 11:36 AM Results for this CDT procedure are i n the results section. SARS-COV2/RT-PCR ([facility] Routine 02/06/2020 11:36 AM Screening f or Results for this & REF LABS) CDT viral disease procedure are in the results section. POCT-GLUCOSE METER Routine 12/31/2019 11:37 AM Re sults for this CDT procedure are i n the results section. POCT-GLUCOSE METER Routine 12/31/2019 6:57 AM Re sults for this CDT procedure are i n the results section. POCT-GLUCOSE METER Routine 12/31/2019 12:01 AM Re sults for this CDT procedure are i n the results section. POCT-GLUCOSE METER Routine 12/30/2019 4:14 PM Re sults for this CDT procedure are i n the results section. POCT-GLUCOSE METER Routine 12/30/2019 12:20 PM Re sults for this CDT procedure are i n the results section. POCT-GLUCOSE METER Routine 12/30/2019 6:31 AM Re sults for this CDT procedure are i n the results section. POCT-GLUCOSE METER Routine 12/29/2019 8:16 PM Re sults for this CDT procedure are i n the results section. POCT-GLUCOSE METER Routine 12/29/2019 4:41 PM Re sults for this CDT procedure are i n the results section. VENOUS DOPPLER ARM, Routine 12/29/2019 4:30 PM R esults for this LEFT CDT procedure are i n the results section. POCT-GLUCOSE METER Routine 12/29/2019 11:06 AM Re sults for this CDT procedure are i n the results section. POCT-GLUCOSE METER Routine 12/29/2019 6:16 AM Re sults for this CDT procedure are i n the results section. CBC (HEMOGRAM ONLY) Routine 12/29/2019 4:53 AM R esults for this CDT procedure are i n the results section. BASIC METABOLIC PANEL Routine 12/29/2019 4:52 AM Results for this (7) CDT procedure are i n the results section. POCT-GLUCOSE METER Routine 12/28/2019 8:47 PM Re sults for this CDT procedure are i n the results section. POCT-GLUCOSE METER Routine 12/28/2019 4:22 PM Re sults for this CDT procedure are i n the results section. POCT-GLUCOSE METER Routine 12/28/2019 11:56 AM Re sults for this CDT procedure are i n the results section. POCT-GLUCOSE METER Routine 12/28/2019 6:16 AM Re sults for this CDT procedure are i n the results section. POCT-GLUCOSE METER Routine 12/27/2019 8:24 PM Re sults for this CDT procedure are i n the results section. POCT-GLUCOSE METER Routine 12/27/2019 4:08 PM Re sults for this CDT procedure are i n the results section. POCT-GLUCOSE METER Routine 12/27/2019 11:12 AM Re sults for this CDT procedure are i n the results section. POCT-GLUCOSE METER Routine 12/27/2019 6:03 AM Re sults for this CDT procedure are i n the results section. POCT-GLUCOSE METER Routine 12/26/2019 8:12 PM Re sults for this CDT procedure are i n the results section. POCT-GLUCOSE METER Routine 12/26/2019 4:02 PM Re sults for this CDT procedure are i n the results section. CBC W/PLT COUNT & AUTO Routine 12/26/2019 12:00 PM Results for this DIFFERENTIAL CDT procedure are i n the results section. COMPREHENSIVE Routine 12/26/2019 12:00 PM Results for this METABOLIC PANEL CDT procedure ar e in the results section. CBC W/PLT COUNT & AUTO Routine 12/26/2019 12:00 PM Results for this DIFFERENTIAL CDT procedure are i n the results section. POCT-GLUCOSE METER Routine 12/26/2019 11:33 AM Re sults for this CDT procedure are i n the results section. POCT-GLUCOSE METER Routine 12/26/2019 6:35 AM Re sults for this CDT procedure are i n the results section. POCT-GLUCOSE METER Routine 12/25/2019 8:43 PM Re sults for this CDT procedure are i n the results section. POCT-GLUCOSE METER Routine 12/25/2019 4:42 PM Re sults for this CDT procedure are i n the results section. POCT-GLUCOSE METER Routine 12/25/2019 11:08 AM Re sults for this CDT procedure are i n the results section. POCT-GLUCOSE METER Routine 12/25/2019 6:32 AM Re sults for this CDT procedure are i n the results section. POCT-GLUCOSE METER Routine 12/24/2019 8:44 PM Re sults for this CDT procedure are i n the results section. POCT-GLUCOSE METER Routine 12/24/2019 4:24 PM Re sults for this CDT procedure are i n the results section. POCT-GLUCOSE METER Routine 12/24/2019 11:12 AM Re sults for this CDT procedure are i n the results section. POCT-GLUCOSE METER Routine 12/24/2019 6:20 AM Re sults for this CDT procedure are i n the results section. POCT-GLUCOSE METER Routine 12/23/2019 8:33 PM Re sults for this CDT procedure are i n the results section. POCT-GLUCOSE METER Routine 12/23/2019 4:48 PM Re sults for this CDT procedure are i n the results section. POCT-GLUCOSE METER Routine 12/23/2019 11:31 AM Re sults for this CDT procedure are i n the results section. POCT-GLUCOSE METER Routine 12/23/2019 5:58 AM Re sults for this CDT procedure are i n the results section. POCT-GLUCOSE METER Routine 12/22/2019 8:29 PM Re sults for this CDT procedure are i n the results section. POCT-GLUCOSE METER Routine 12/22/2019 4:10 PM Re sults for this CDT procedure are i n the results section. POCT-GLUCOSE METER Routine 12/22/2019 11:33 AM Re sults for this CDT procedure are i n the results section. RHYTHM STRIP - SCAN 12/22/2019 10:01 AM CDT CARDIAC CATH REPORT - 12/22/2019 10:00 AM SCAN CDT POCT-GLUCOSE METER Routine 12/22/2019 6:23 AM Re sults for this CDT procedure are i n the results section. CBC (HEMOGRAM ONLY) Routine 12/22/2019 4:37 AM R esults for this CDT procedure are i n the results section. BASIC METABOLIC PANEL Routine 12/22/2019 4:37 AM Results for this (7) CDT procedure are i n the results section. POCT-GLUCOSE METER Routine 12/21/2019 8:41 PM Re sults for this CDT procedure are i n the results section. POCT-GLUCOSE METER Routine 12/21/2019 3:41 PM Re sults for this CDT procedure are i n the results section. POCT-GLUCOSE METER Routine 12/21/2019 11:31 AM Re sults for this CDT procedure are i n the results section. POCT-GLUCOSE METER Routine 12/21/2019 6:18 AM Re sults for this CDT procedure are i n the results section. POCT-GLUCOSE METER Routine 12/20/2019 8:20 PM Re sults for this CDT procedure are i n the results section. POCT-GLUCOSE METER Routine 12/20/2019 4:27 PM Re sults for this CDT procedure are i n the results section. POCT-GLUCOSE METER Routine 12/20/2019 12:27 PM Re sults for this CDT procedure are i n the results section. POCT-GLUCOSE METER Routine 12/20/2019 6:24 AM Re sults for this CDT procedure are i n the results section. POCT-GLUCOSE METER Routine 12/19/2019 8:57 PM Re sults for this CDT procedure are i n the results section. POCT-GLUCOSE METER Routine 12/19/2019 4:05 PM Re sults for this CDT procedure are i n the results section. POCT-GLUCOSE METER Routine 12/19/2019 12:07 PM Re sults for this CDT procedure are i n the results section. POCT-GLUCOSE METER Routine 12/19/2019 6:18 AM Re sults for this CDT procedure are i n the results section. CBC W/PLT COUNT & AUTO Routine 12/19/2019 5:22 AM Results for this DIFFERENTIAL CDT procedure are i n the results section. MAGNESIUM Routine 12/19/2019 5:22 AM Results for this CDT procedure are i n the results section. CBC W/PLT COUNT & AUTO Routine 12/19/2019 5:22 AM Results for this DIFFERENTIAL CDT procedure are i n the results section. COMPREHENSIVE Routine 12/19/2019 5:22 AM Results for this METABOLIC PANEL CDT procedure ar e in the results section. POCT-GLUCOSE METER Routine 12/18/2019 8:52 PM Re sults for this CDT procedure are i n the results section. POCT-GLUCOSE METER Routine 12/18/2019 4:49 PM Re sults for this CDT procedure are i n the results section. POCT-GLUCOSE METER Routine 12/18/2019 11:46 AM Re sults for this CDT procedure are i n the results section. POCT-GLUCOSE METER Routine 12/18/2019 7:28 AM Re sults for this CDT procedure are i n the results section. MAGNESIUM Routine 12/18/2019 5:36 AM Results for this CDT procedure are i n the results section. CBC (HEMOGRAM ONLY) Routine 12/18/2019 5:36 AM R esults for this CDT procedure are i n the results section. BASIC METABOLIC PANEL Routine 12/18/2019 5:36 AM Results for this (7) CDT procedure are i n the results section. POCT-GLUCOSE METER Routine 12/17/2019 9:07 PM Re sults for this CDT procedure are i n the results section. POCT-GLUCOSE METER Routine 12/17/2019 5:48 PM Re sults for this CDT procedure are i n the results section. POCT-GLUCOSE METER Routine 12/17/2019 11:38 AM Re sults for this CDT procedure are i n the results section. POCT-GLUCOSE METER Routine 12/17/2019 7:27 AM Re sults for this CDT procedure are i n the results section. MAGNESIUM Routine 12/17/2019 5:13 AM Results for this CDT procedure are i n the results section. CBC (HEMOGRAM ONLY) Routine 12/17/2019 5:13 AM R esults for this CDT procedure are i n the results section. BASIC METABOLIC PANEL Routine 12/17/2019 5:13 AM Results for this (7) CDT procedure are i n the results section. POCT-GLUCOSE METER Routine 12/16/2019 8:51 PM Re sults for this CDT procedure are i n the results section. POCT-GLUCOSE METER Routine 12/16/2019 4:34 PM Re sults for this CDT procedure are i n the results section. XR CHEST 1 VIEW STAT 12/16/2019 2:48 PM Resul ts for this PORTABLE/BEDSIDE CDT procedure a re in the results section. POCT-GLUCOSE METER Routine 12/16/2019 11:47 AM Re sults for this CDT procedure are i n the results section. POCT-GLUCOSE METER Routine 12/16/2019 6:50 AM Re sults for this CDT procedure are i n the results section. MAGNESIUM Routine 12/16/2019 5:57 AM Results for this CDT procedure are i n the results section. CBC (HEMOGRAM ONLY) Routine 12/16/2019 5:57 AM R esults for this CDT procedure are i n the results section. BASIC METABOLIC PANEL Routine 12/16/2019 5:57 AM Results for this (7) CDT procedure are i n the results section. POCT-GLUCOSE METER Routine 12/15/2019 9:15 PM Re sults for this CDT procedure are i n the results section. POCT-GLUCOSE METER Routine 12/15/2019 4:44 PM Re sults for this CDT procedure are i n the results section. POCT-GLUCOSE METER Routine 12/15/2019 11:45 AM Re sults for this CDT procedure are i n the results section. POCT-GLUCOSE METER Routine 12/15/2019 6:58 AM Re sults for this CDT procedure are i n the results section. MAGNESIUM Routine 12/15/2019 4:46 AM Results for this CDT procedure are i n the results section. CBC (HEMOGRAM ONLY) Routine 12/15/2019 4:46 AM R esults for this CDT procedure are i n the results section. BASIC METABOLIC PANEL Routine 12/15/2019 4:46 AM Results for this (7) CDT procedure are i n the results section. POCT-GLUCOSE METER Routine 12/14/2019 9:15 PM Re sults for this CDT procedure are i n the results section. POCT-GLUCOSE METER Routine 12/14/2019 5:18 PM Re sults for this CDT procedure are i n the results section. POCT-GLUCOSE METER Routine 12/14/2019 12:05 PM Re sults for this CDT procedure are i n the results section. POCT-GLUCOSE METER Routine 12/14/2019 7:51 AM Re sults for this CDT procedure are i n the results section. MAGNESIUM Routine 12/14/2019 4:29 AM Results for this CDT procedure are i n the results section. CBC (HEMOGRAM ONLY) Routine 12/14/2019 4:29 AM R esults for this CDT procedure are i n the results section. BASIC METABOLIC PANEL Routine 12/14/2019 4:29 AM Results for this (7) CDT procedure are i n the results section. POCT-GLUCOSE METER Routine 12/13/2019 9:42 PM Re sults for this CDT procedure are i n the results section. POCT-GLUCOSE METER Routine 12/13/2019 4:53 PM Re sults for this CDT procedure are i n the results section. POCT-GLUCOSE METER Routine 12/13/2019 11:15 AM Re sults for this CDT procedure are i n the results section. POCT-GLUCOSE METER Routine 12/13/2019 7:21 AM Re sults for this CDT procedure are i n the results section. MAGNESIUM Routine 12/13/2019 4:54 AM Results for this CDT procedure are i n the results section. CBC (HEMOGRAM ONLY) Routine 12/13/2019 4:54 AM R esults for this CDT procedure are i n the results section. BASIC METABOLIC PANEL Routine 12/13/2019 4:54 AM Results for this (7) CDT procedure are i n the results section. POCT-GLUCOSE METER Routine 12/12/2019 9:10 PM Re sults for this CDT procedure are i n the results section. POCT-GLUCOSE METER Routine 12/12/2019 4:50 PM Re sults for this CDT procedure are i n the results section. POCT-GLUCOSE METER Routine 12/12/2019 12:44 PM Re sults for this CDT procedure are i n the results section. SURGICALLY OBTAINED Routine 12/12/2019 12:11 PM R esults for this CULTURE + GRAM STAIN CDT procedu re are in the results section. FUNGUS CULTURE + Routine 12/12/2019 12:11 PM Resu lts for this SMEAR CDT procedure are i n the results section. ANAEROBIC CULTURE Routine 12/12/2019 12:11 PM Res ults for this CDT procedure are i n the results section. AFB CULTURE + SMEAR Routine 12/12/2019 12:11 PM R esults for this (NON-SPUTUM) CDT procedure are i n the results section. SPIN/CONCENTRATION Routine 12/12/2019 12:11 PM Re sults for this CHARGE CDT procedure are i n the results section. 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 MAGNESIUM Routine 12/12/2019 5:19 AM Results for this CDT procedure are i n the results section. CBC (HEMOGRAM ONLY) Routine 12/12/2019 5:19 AM R esults for this CDT procedure are i n the results section. BASIC METABOLIC PANEL Routine 12/12/2019 5:19 AM Results for this (7) CDT procedure are i n the results section. POCT-GLUCOSE METER Routine 12/11/2019 9:01 PM Re sults for this CDT procedure are i n the results section. POCT-GLUCOSE METER Routine 12/11/2019 4:41 PM Re sults for this CDT procedure are i n the results section. POCT-GLUCOSE METER Routine 12/11/2019 11:31 AM Re sults for this CDT procedure are i n the results section. POCT-GLUCOSE METER Routine 12/11/2019 7:24 AM Re sults for this CDT procedure are i n the results section. MAGNESIUM Routine 12/11/2019 4:59 AM Results for this CDT procedure are i n the results section. CBC (HEMOGRAM ONLY) Routine 12/11/2019 4:59 AM R esults for this CDT procedure are i n the results section. BASIC METABOLIC PANEL Routine 12/11/2019 4:59 AM Results for this (7) CDT procedure are i n the results section. POCT-GLUCOSE METER Routine 12/10/2019 9:23 PM Re sults for this CDT procedure are i n the results section. POCT-GLUCOSE METER Routine 12/10/2019 4:37 PM Re sults for this CDT procedure are i n the results section. POCT-GLUCOSE METER Routine 12/10/2019 11:03 AM Re sults for this CDT procedure are i n the results section. POCT-GLUCOSE METER Routine 12/10/2019 7:33 AM Re sults for this CDT procedure are i n the results section. MAGNESIUM Routine 12/10/2019 5:50 AM Results for this CDT procedure are i n the results section. CBC (HEMOGRAM ONLY) Routine 12/10/2019 5:50 AM R esults for this CDT procedure are i n the results section. BASIC METABOLIC PANEL Routine 12/10/2019 5:50 AM Results for this (7) CDT procedure are i n the results section. POCT-GLUCOSE METER Routine 12/09/2019 9:14 PM Re sults for this CDT procedure are i n the results section. POCT-GLUCOSE METER Routine 12/09/2019 5:03 PM Re sults for this CDT procedure are i n the results section. POCT-GLUCOSE METER Routine 12/09/2019 11:47 AM Re sults for this CDT procedure are i n the results section. POCT-GLUCOSE METER Routine 12/09/2019 6:52 AM Re sults for this CDT procedure are i n the results section. MAGNESIUM Routine 12/09/2019 5:41 AM Results for this CDT procedure are i n the results section. CBC (HEMOGRAM ONLY) Routine 12/09/2019 5:41 AM R esults for this CDT procedure are i n the results section. BASIC METABOLIC PANEL Routine 12/09/2019 5:41 AM Results for this (7) CDT procedure are i n the results section. POCT-GLUCOSE METER Routine 12/08/2019 10:10 PM Re sults for this CDT procedure are i n the results section. POCT-GLUCOSE METER Routine 12/08/2019 4:32 PM Re sults for this CDT procedure are i n the results section. POCT-GLUCOSE METER Routine 12/08/2019 11:53 AM Re sults for this CDT procedure are i n the results section. POCT-GLUCOSE METER Routine 12/08/2019 7:57 AM Re sults for this CDT procedure are i n the results section. MAGNESIUM Routine 12/08/2019 5:49 AM Results for this CDT procedure are i n the results section. CBC (HEMOGRAM ONLY) Routine 12/08/2019 5:49 AM R esults for this CDT procedure are i n the results section. BASIC METABOLIC PANEL Routine 12/08/2019 5:49 AM Results for this (7) CDT procedure are i n the results section. POCT-GLUCOSE METER Routine 12/07/2019 9:46 PM Re sults for this CDT procedure are i n the results section. POCT-GLUCOSE METER Routine 12/07/2019 5:10 PM Re sults for this CDT procedure are i n the results section. MAGNESIUM Routine 12/07/2019 4:58 AM Results for this CDT procedure are i n the results section. CBC (HEMOGRAM ONLY) Routine 12/07/2019 4:58 AM R esults for this CDT procedure are i n the results section. BASIC METABOLIC PANEL Routine 12/07/2019 4:58 AM Results for this (7) CDT procedure are i n the results section. POCT-GLUCOSE METER Routine 12/06/2019 9:02 PM Re sults for this CDT procedure are i n the results section. POCT-GLUCOSE METER Routine 12/06/2019 4:37 PM Re sults for this CDT procedure are i n the results section. POCT-GLUCOSE METER Routine 12/06/2019 12:06 PM Re sults for this CDT procedure are i n the results section. POCT-GLUCOSE METER Routine 12/06/2019 7:00 AM Re sults for this CDT procedure are i n the results section. MAGNESIUM Routine 12/06/2019 4:37 AM Results for this CDT procedure are i n the results section. CBC (HEMOGRAM ONLY) Routine 12/06/2019 4:37 AM R esults for this CDT procedure are i n the results section. BASIC METABOLIC PANEL Routine 12/06/2019 4:37 AM Results for this (7) CDT procedure are i n the results section. POCT-GLUCOSE METER Routine 12/05/2019 9:05 PM Re sults for this CDT procedure are i n the results section. POCT-GLUCOSE METER Routine 12/05/2019 4:36 PM Re sults for this CDT procedure are i n the results section. XR FOOT RIGHT 3 VIEW Routine 12/05/2019 3:32 PM Results for this CDT procedure are i n the results section. RHYTHM STRIP - SCAN 12/05/2019 2:14 PM CDT SPIN/CONCENTRATION Routine 12/05/2019 1:05 PM Re sults for this CHARGE CDT procedure are i n the results section. SURGICALLY OBTAINED Routine 12/05/2019 1:05 PM R esults for this CULTURE + GRAM STAIN CDT procedu re are in the results section. FUNGUS CULTURE + Routine 12/05/2019 1:05 PM Resu lts for this SMEAR CDT procedure are i n the results section. ANAEROBIC CULTURE Routine 12/05/2019 1:05 PM Res ults for this CDT procedure are i n the results section. AFB CULTURE + SMEAR Routine 12/05/2019 1:05 PM R esults for this (NON-SPUTUM) CDT procedure are i n the results section. TISSUE EXAM AP Routine 12/05/2019 1:01 PM Results for this CDT procedure are i n the results section. POCT-GLUCOSE METER Routine 12/05/2019 12:57 PM Re sults for this CDT procedure are i n the results section. DEBRIDEMENT/I&D,WOUND 12/05/2019 11:20 AM Non-healing EXTREMITY LOWER CDT surgical wound, initial encounter Case Notes 2HRS Special Needs (PULSE LAVAGE, VERSA JET) AMPUTATION,FOOT 12/05/2019 11:20 AM CDT Non-healing [place] wound, initial encounter Case Notes 2HRS Special Needs (PULSE LAVAGE, VERSA JET) ECG 12-LEAD Routine 12/05/2019 9:28 AM CDT Procedure Note - Interface, External Ris In - 12/05/2019 9:34 AM CDT Ventricular Rate 80 BPM Atrial Rate 80 BPM P-R Interval 160 ms QRS Duration 86 ms Q-T Interval 418 ms QTC Calculation(Bazett) 482 ms P Justice 0 degrees R Justice 14 degrees T Justice 36 degrees Sinus rhythm with occasional Premature ventricular complexes and Premature atrial complexes Otherwise normal ECG No previous ECGs available ECG 12-LEAD STAT 12/05/2019 9:28 AM Results for this CDT procedure are i n the results section. POCT-GLUCOSE METER Routine 12/05/2019 8:03 AM Re sults for this CDT procedure are i n the results section. MAGNESIUM Routine 12/05/2019 5:40 AM Results for this CDT procedure are i n the results section. CBC (HEMOGRAM ONLY) Routine 12/05/2019 5:40 AM R esults for this CDT procedure are i n the results section. BASIC METABOLIC PANEL Routine 12/05/2019 5:40 AM Results for this (7) CDT procedure are i n the results section. POCT-GLUCOSE METER Routine 12/04/2019 9:06 PM Re sults for this CDT procedure are i n the results section. POCT-GLUCOSE METER Routine 12/04/2019 4:08 PM Re sults for this CDT procedure are i n the results section. POCT-GLUCOSE METER Routine 12/04/2019 11:40 AM Re sults for this CDT procedure are i n the results section. POCT-GLUCOSE METER Routine 12/04/2019 7:58 AM Re sults for this CDT procedure are i n the results section. PLATELET AGGREGATION: AP Routine 12/04/2019 6:30 AM Results for this DRUG EFFECT CDT procedure are i n the results section. APTT Routine 12/04/2019 6:30 AM Results for this CDT procedure are i n the results section. MAGNESIUM Routine 12/04/2019 6:30 AM Results for this CDT procedure are i n the results section. CBC (HEMOGRAM ONLY) Routine 12/04/2019 6:30 AM R esults for this CDT procedure are i n the results section. BASIC METABOLIC PANEL Routine 12/04/2019 6:30 AM Results for this (7) CDT procedure are i n the results section. POCT-GLUCOSE METER Routine 12/03/2019 9:12 PM Re sults for this CDT procedure are i n the results section. BLOOD CULTURE Routine 12/03/2019 6:44 PM Results for this CDT procedure are i n the results section. BLOOD CULTURE Routine 12/03/2019 6:44 PM Results for this CDT procedure are i n the results section. TRANSFUSION SERVICE 12/03/2019 6:00 PM REPORT - SCAN CDT POCT-GLUCOSE METER Routine 12/03/2019 4:50 PM Re sults for this CDT procedure are i n the results section. POCT-ACT Routine 12/03/2019 2:35 PM Results for this CDT procedure are i n the results section. POCT-ACT Routine 12/03/2019 1:53 PM Results for this CDT procedure are i n the results section. PERIPHERAL ANGIOS / 12/03/2019 12:33 PM Gangrene (HCC) AORTOGRAM CDT Case Notes (3)CASE 1019 POCT-GLUCOSE METER Routine 12/03/2019 11:09 AM Re sults for this CDT procedure are i n the results section. POCT-GLUCOSE METER Routine 12/03/2019 8:14 AM Re sults for this CDT procedure are i n the results section. APTT Routine 12/03/2019 6:11 AM Results for this CDT procedure are i n the results section. MAGNESIUM Routine 12/03/2019 6:11 AM Results for this CDT procedure are i n the results section. CBC (HEMOGRAM ONLY) Routine 12/03/2019 6:11 AM R esults for this CDT procedure are i n the results section. BASIC METABOLIC PANEL Routine 12/03/2019 6:11 AM Results for this (7) CDT procedure are i n the results section. APTT Routine 12/02/2019 11:35 PM Results for this CDT procedure are i n the results section. POCT-GLUCOSE METER Routine 12/02/2019 9:10 PM Re sults for this CDT procedure are i n the results section. VANCOMYCIN LEVEL, Timed 12/02/2019 7:09 PM Res ults for this TROUGH CDT procedure are i n the results section. POCT-GLUCOSE METER Routine 12/02/2019 4:46 PM Re sults for this CDT procedure are i n the results section. APTT Routine 12/02/2019 4:41 PM Results for this CDT procedure are i n the results section. POCT-GLUCOSE METER Routine 12/02/2019 12:20 PM Re sults for this CDT procedure are i n the results section. XR FOOT RIGHT 3 VIEW Routine 12/02/2019 12:00 PM Results for this CDT procedure are i n the results section. POCT-GLUCOSE METER Routine 12/02/2019 9:12 AM Re sults for this CDT procedure are i n the results section. TISSUE EXAM AP Routine 12/02/2019 8:41 AM Results for this CDT procedure are i n the results section. FUNGUS CULTURE + Routine 12/02/2019 8:38 AM Resu lts for this SMEAR CDT procedure are i n the results section. AFB CULTURE + SMEAR Routine 12/02/2019 8:38 AM R esults for this (NON-SPUTUM) CDT procedure are i n the results section. ANAEROBIC CULTURE Routine 12/02/2019 8:38 AM Res ults for this CDT procedure are i n the results section. SURGICALLY OBTAINED Routine 12/02/2019 8:38 AM R esults for this CULTURE + GRAM STAIN CDT procedu re are in the results section. 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 ABORH, MANUAL STAT 12/02/2019 1:36 AM CDT Res ults for this procedure are i n the results section . TYPE AND SCREEN, AUTOMATED Routine 12/02/2019 1:16 AM CDT Results for this procedure are i n the results section . HEMOGLOBIN A1C Routine 12/02/2019 1:16 AM CDT Re sults for this procedure are i n the results section . MAGNESIUM Routine 12/02/2019 1:16 AM CDT Resu lts for this procedure are i n the results section . CBC (HEMOGRAM ONLY) Routine 12/02/2019 1:16 AM CDT Results for this procedure are i n the results section . BASIC METABOLIC PANEL (7) Routine 12/02/2019 1:16 AM CDT Results for this procedure are i n the results section . APTT Routine 12/02/2019 1:16 AM CDT Resu lts for this procedure are i n the results section . POCT-GLUCOSE METER Routine 12/01/2019 9:17 PM CDT Results for this procedure are i n the results section . APTT Routine 12/01/2019 7:36 PM CDT Resu lts for this procedure are i n the results section . POCT-GLUCOSE METER Routine 12/01/2019 5:14 PM CDT Results for this procedure are i n the results section . POCT-GLUCOSE METER Routine 12/01/2019 12:12 PM CDT Results for this procedure are i n the results section . APTT Routine 12/01/2019 12:10 PM CDT Resu lts for this procedure are i n the results section . SARS-COV2/RT-PCR ([facility] & REF STAT 12/01/2019 12:10 PM CDT Results for this LABS) procedure are i n the results section . XR FOOT RIGHT 3 VIEW Routine 12/01/2019 10:59 AM CDT Results for this procedure are i n the results section . ARTERIAL (TOSHIA'S W/ DOPPLER) Routine 12/01/2019 9:45 AM CDT Results for this ONLY procedure are i n the results section . ARTERIAL DOPPLER LEG, RIGHT STAT 12/01/2019 9:20 AM CDT Results for this procedure are i n the results section . BLOOD CULTURE Routine 12/01/2019 4:58 AM CDT Res ults for this procedure are i n the results section . CBC W/PLT COUNT & AUTO Routine 12/01/2019 4:50 AM CDT Results for this DIFFERENTIAL procedure are i n the results section . C-REACTIVE PROTEIN Routine 12/01/2019 4:50 AM CDT Results for this procedure are i n the results section . CBC W/PLT COUNT & AUTO Routine 12/01/2019 4:50 AM CDT Results for this DIFFERENTIAL procedure are i n the results section . PROTHROMBIN TIME/INR Routine 12/01/2019 4:50 AM CDT Results for this procedure are i n the results section . COMPREHENSIVE METABOLIC Routine 12/01/2019 4:50 AM CDT Results for this PANEL procedure are i n the results section . APTT Routine 12/01/2019 4:50 AM CDT Resu lts for this procedure are i n the results section . APTT Routine 12/01/2019 4:50 AM CDT Resu lts for this procedure are i n the results section . BLOOD CULTURE Routine 12/01/2019 4:50 AM CDT Res ults for this procedure are i n the results section . after 03/24/2019 Results POC-Glucose meter (02/17/2020 12:55 PM CDT)Only the most recent of149 results within the time period is included. POC-Glucose Meter 200 (H)Comment: : TESTED 70 - 110 mg/dL [facility] [address] [place] [address] [facility], [id number]: Fire Supervisor/Development Educator ID = [id number] for ARISTEO CHU Specimen Blood Performing Organization Address City/State/Zipcode Phone Number [address] [phone] CENTER CBC with platelet count + automated diff (02/15/2020 4:24 AM CDT)Only the most recent of7 resultswithin the time period is included. WBC 11.1 (H) 3.5 - 10.5 K/L [facility] RBC 4.12 3.93 - 5.22 M/L [facility] Hemoglobin 11.5 11.2 - 15.7 GM/DL [facility] Hematocrit 36.2 34.1 - 44.9 % [facility] MCV 87.9 79.4 - 94.8 fL [facility] MCH 27.9 25.6 - 32.2 pg [facility] MCHC 31.8 (L) 32.2 - 35.5 GM/DL [facility] RDW 14.2 11.7 - 14.4 % [facility] Platelets 298 150 - 450 K/CU MM [facility] MPV 9.2 (L) 9.4 - 12.3 fL [facility] nRBC 0 0 - 0 /100 WBC [facility] % Neutros 51 % [facility] % Lymphs 38 % [facility] % Monos 7 % [facility] % Eos 4 % [facility] % Baso 0 % [facility] # Neutros 5.63 1.56 - 6.13 K/L [facility] # Lymphs 4.22 (H) 1.18 - 3.74 K/L [facility] # Monos 0.76 (H) 0.24 - 0.36 K/L [facility] # Eos 0.39 (H) 0.04 - 0.36 K/L [facility] # Baso 0.03 0.01 - 0.08 K/L [facility] Immature Granulocytes-Relative 0 0 - 1 % C HI [facility] Specimen Blood Performing Organization Address City/[facility] Phone Number [address] [phone] CENTER Prothrombin time/INR (02/12/2020 8:32 AM CDT)Only the most recent of2 results within the time period is included. Protime 14.1 11.9 - 14.2 seconds [facility] INR 1.12 <=5.90 [facility] Specimen Blood Narrative Performed At Effective 11/13/2018: PT Reference Range [facility] Change New: 11.9-14.2Previous: 11.7-14.7 RECOMMENDED COUMADIN/WARFARIN INR THERAPY RANGES STANDARD DOSE: 2.0-3.0Includes: PROPHYLAXIS for venous thrombosis, systemic embolization; TREATMENT for venous thrombosis and/or pulmonary embolus. HIGH RISK: Target INR is 2.5-3.5 for patients wiht mechanical heart valves. Performing Organization Address City/[facility] Cent[facility]ode Phone Number [address] [address] [place] Comprehensive metabolic panel (02/12/2020 8:32 AM CDT)Only the most recent of4 resultswithin the time period is included. Protein, Total 6.5 6.0 - 8.3 gm/dL [facility] Albumin 3.3 (L) 3.5 - 5.0 g/dL [facility] Alkaline Phosphatase 91 40 - 150 U/L [facility] Total Bilirubin 0.8 0.2 - 1.2 mg/dL [facility] Sodium 136 136 - 145 meq/L [facility] Potassium 4.1 3.5 - 5.1 meq/L [facility] Chloride 105 98 - 107 meq/L [facility] CO2 24 22 - 29 meq/L [facility] BUN 12 7 - 21 mg/dL [facility] Creatinine 0.73 0.57 - 1.25 mg/dL [facility] Glucose 125 (H) 70 - 105 mg/dL [facility] Calcium 8.3 (L) 8.4 - 10.2 mg/dL [facility] AST 24 5 - 34 U/L [facility] ALT 22 6 - 55 U/L [facility] ER EGFR 78Comment: ESTIMATED GFR mL/min/1.73 sq m [facility] IS NOT ACCURATE [facility] CREATININE CLEARANCE IN PREDICTING GLOMERULAR FILTRATION RATE. ESTIMATED GFR IS NOT APPLICABLE FOR DIALYSIS PATIENTS. Specimen Blood Narrative Performed At Fire Supervisor ID - [id number] [facility] CENTER Performing Organization Address City/State/Zipcode Phone Number [facility] [address] [place] [address] [place] CBC (Hemogram only) (02/11/2020 11:16 AM CDT)Only the most recent of20 results within the time period is included. WBC 6.2 3.5 - 10.5 K/L [facility] RBC 3.90 (L) 3.93 - 5.22 M/L [facility] Hemoglobin 11.1 (L) 11.2 - 15.7 GM/DL [facility] Hematocrit 34.3 34.1 - 44.9 % [facility] MCV 87.9 79.4 - 94.8 fL [facility] MCH 28.5 25.6 - 32.2 pg [facility] MCHC 32.4 32.2 - 35.5 GM/DL [facility] RDW 14.7 (H) 11.7 - 14.4 % [facility] Platelets 262 150 - 450 K/CU MM [facility] MPV 9.8 9.4 - 12.3 fL [facility] nRBC 0 0 - 0 /100 WBC [facility] Specimen Blood Performing Organization Address City/State/Zipcode Phone Number [facility] [address] [place] [address] CENTER Basic Metabolic Panel (02/11/2020 11:16 AM CDT)Only the most recent of22 results within the time period is included. Sodium 137 136 - 145 meq/L [facility] Potassium 3.9 3.5 - 5.1 meq/L [facility] Chloride 105 98 - 107 meq/L [facility] CO2 25 22 - 29 meq/L [facility] BUN 10 7 - 21 mg/dL [facility] Creatinine 0.71 0.57 - 1.25 mg/dL [facility] Glucose 121 (H) 70 - 105 mg/dL [facility] Calcium 8.4 8.4 - 10.2 mg/dL [facility] EGFR 81Comment: ESTIMATED GFR IS mL/min/1.73 sq m [facility] NOT ACCURATE CREATININE [facility] CENTER CLEARANCE IN PREDICTING GLOMERULAR FILTRATION RATE. ESTIMATED GFR IS NOT APPLICABLE FOR DIALYSIS PATIENTS. Specimen Blood Narrative Performed At Fire Supervisor ID - JORGE ALBERTO Pulido [facility] Performing Organization Address City/[facility]/Zipcode Phone Number [address] [address] CENTER Vitamin B12 and Folate (02/10/2020 11:13 PM CDT) Vitamin B12 521 213 - 816 pg/mL [facility] Folate 18.00 >=7.00 ng/mL [facility] Specimen Blood Narrative Performed At Fire Supervisor ID - [facility] Performing Organization Address City/[facility] Centercode Phone Number [address] [address] CENTER Iron, TIBC, % sat. (without ferritin) (02/10/2020 11:13 PM CDT) Iron 24.0 (L) 40.0 - 160.0 ug/dL [facility] TIBC 253 250 - 450 ug/dL [facility] Iron % Saturation 9 (L) 20 - 55 % [facility] Specimen Blood Narrative Performed At Fire Supervisor ID - FARHAT Villela [facility] Performing Organization Address City/[facility]/Zipcode Phone Number [address] [address] CENTER SARS-CoV2/RT-PCR ([facility]) (02/06/2020 11:36 AM CDT)Only the most recent of2 resultswithin the time period is included. SARS-COV2/RT-PCR Negative Not Detected, Negative, [facility] See external report for MEDICAL CENTER linked test SARS-COV-2 PERFORMING LAB [facility] NOE [facility] Specimen Other Narrative Performed At Negative result for this test determines that [facility] SARS-CoV-2 RNA was not present in the specimen above the Limit of Detection (LOD).However, Negative results do not preclude SARS-CoV-2 infection and should not be used as the sole basis for treatment or patient management decisions. Negative results must be combined with clinical observations, patient history, and epidemiological information. A false negative result may occur if a specimen is improperly collected, transported or handled.A false negative result should be considered if patient's recent exposures or clinical presentation indicate that COVID-19 (SARS-CoV-2) is likely and diagnostic tests for other causes of illness are negative.Re-testing should be considered in cases of suspected false negatives. The limit of detection for this assay is 800 copies/mL. This SARS CoV-2 test is a real-time RT-PCR test intended for the qualitative detection of nucleic acid from SARS-CoV-2 in a nasopharyngeal swab specimen collected from individuals suspected of COVID-19 by their healthcare provider. This test has not been Food and Drug Administration (FDA) cleared or approved.This is a modified version of an approved Emergency Use Authorization (EUA) and is in the process of review by the FDA. Once authorized by the FDA, the issued EUA will be effective until the declaration that circumstances exist justifying the authorization of the emergency use of in vitro diagnostic tests for detection and/or diagnosis of COVID-19 is terminated under Section 564(b)(2) of the Act or the EUA is revoked under Section 564(g) of the Act. Fact Sheet for Healthcare Providers: https://www.Hosted Systems/sites/default/files/pro duct/documents/Fact_Sheet_HC_Providers_Noe_SA RS-CoV-2.pdf Fact Sheet for Healthcare Patients: https://www.EXFO.Hi-G-Tek/sites/default/files/pro duct/documents/Fact_Sheet_Patients_Lyra_SARS-C oV-2.pdf Performing Laboratory: [facility] [address] [place] [id number] Performing Organization Address City/State/Zipcode Phone Number [facility] [address] [place], [place] [phone] CENTER Hemoglobin (02/06/2020 11:36 AM CDT) Hemoglobin 12.0 11.2 - 15.7 GM/DL [facility] Specimen Blood Narrative Performed At Fire Supervisor ID - [id number] [facility] Performing Organization Address City/State/Zipcode Phone Number [address] [phone] [place] Venous doppler arm, left (12/29/2019 4:30 PM CDT) Specimen Narrative Performed At Addendum [facility] [employer] REPORT STATUS:A Doppler ultrasound ofthe left upper extremity dated 12/29/2019 Comment: Color Doppler and spectral anal ysis of the left upper extremity were obtained. The left jugular vein, subclavian, axill jose g, brachial, basilic, and cephalic veins are patent without thromb us. Impression: No deep venous thrombosis in the left upper extremity. Signed: Deann Berg MD Report Verified Date/Time:12/30/2019 13:49:05 Reading Location: [facility] C013Y CT [facility] Addendum Ends FINAL REPORT Doppler ultrasound ofthe left lower extremity dated 12/29/2019 Comment: Color Doppler and spectral anal ysis of the left lower extremity were obtained. There was no deep venous obstruction in the distal external iliac, common femoral, profunda femoral, femora l, popliteal or posterior tibial veins.Compression was utilize d and demonstrated normal augmentation in the left lower extremity . There was no venous obstruction in the greater saphenous vei n. Impression: No deep venous thrombosis in the left lower extremity. Signed: Deann Berg MD Report Verified Date/Time:12/29/2019 18:22:22 Reading Location: [facility] C013W Consult R [facility] Room Procedure Note Interface, External Ris In - 12/30/2019 1:51 PM CDT Addendum Begins REPORT STATUS:A Doppler ultrasound of the left upper ex tremity dated 12/29/2019 Comment: Color Doppler and spectral anal ysis of the left upper extremity were obtained. The left jugular vein, subclavian, axill jose g, brachial, basilic, and cephalic veins are patent without thromb us. Impression: No deep venous thrombosis in the left upper extremity. Signed: Deann Berg MD Report Verified Date/Time: 12/30/2019 1 3:49:05 Reading Location: [facility] C013Y CT Body R eading Room Addendum Ends FINAL REPORT Doppler ultrasound of the left lower ex tremity dated 12/29/2019 Comment: Color Doppler and spectral anal ysis of the left lower extremity were obtained. There was no deep venous obstruction in the distal external iliac, common femoral, profunda femoral, femora l, popliteal or posterior tibial veins. Compression was utilized and demonstrated normal augmentation in the left lower extremity . There was no venous obstruction in the greater saphenous vei n. Impression: No deep venous thrombosis in the left lower extremity. Signed: Deann Berg MD Report Verified Date/Time: 12/29/2019 1 8:22:22 Reading Location: [facility] C013W Consult R eading Room Performing Organization Address City/[facility] [place] [facility] Centercoaz Phone Number RIS RHYTHM STRIP - SCAN (12/22/2019 10:01 AM CDT)Only the most recent of2 results within the time period is included. Narrative Performed At This result has an attachment that is no t available. CARDIAC CATH REPORT - SCAN (12/22/2019 10:00 AM CDT) Narrative Performed At This result has an attachment that is no t available. Magnesium (12/19/2019 5:22 AM CDT)Only the most recent of18 resultswithin the time period is included. Magnesium 2.0 1.6 - 2.6 mg/dL [facility] Specimen Blood Performing Organization Address City/[facility] [place] [facility] Centercoaz Phone Number [facility] [address] [place] [address] XR chest 1 view portable / bedside (12/16/2019 2:48 PM CDT) Specimen Narrative Performed At FINAL REPORT [facility] CLINICAL HISTORY:RIGHT PICC LINE TIP [place] IFICATION TECHNIQUE: 1 view of the chest. COMPARISON: None IMPRESSION: The tip of the right PICC line is near t he cavoatrial junction. There are no focal infiltrates or effusions. T he cardiomediastinal silhouette is magnified by technique. Th ere is a right humeral head suture anchor. Signed: Pollo Haas MD Report Verified Date/Time:12/16/2019 15:53:59 Reading Location: [facility] Reading Room Procedure Note Interface, External Ris In - 12/16/2019 3:56 PM CDT FINAL REPORT CLINICAL HISTORY:RIGHT PICC LINE TIP [place] IFICATION TECHNIQUE: 1 view of the chest. COMPARISON: None IMPRESSION: The tip of the right PICC line is near t he cavoatrial junction. There are no focal infiltrates or effusions. T he cardiomediastinal silhouette is magnified by technique. Th ere is a right humeral head suture anchor. Signed: Pollo Haas MD Report Verified Date/Time: 12/16/2019 1 5:53:59 Reading [facility] Room Performing Organization Address City/State/[facility] [place] [facility] Centercode Phone Number [facility] AFB culture + smear (non-sputum) (12/12/2019 12:11 PM CDT)Only the most recent of3 resultswithin the time period is included. Result No acid-fast bacilli isolated in [facility] 42 days CENTER AFB Smear No acid fast bacilli seen [facility] Specimen Tissue Performing Organization Address City/[facility]/Zipcode Phone Number [place] [phone] [place] [address] CENTER Anaerobic culture (12/12/2019 12:11 PM CDT)Only the most recent of3 results within the time period is included. Result No anaerobes isolated [facility] Specimen Tissue Performing Organization Address [facility] [place] [facility] Centercode Phone Number [address] [address] [place] Surgically obtained culture + gram stain (12/12/2019 12:11 PM CDT)Only the most recent of3 resultswithin the time period is included. Result No growth [facility] Gram Stain Result <1+ White blood cells seen [facility] Gram Stain Result No organisms seen [facility] Specimen Tissue Performing Organization Address [facility] Centercoaz Phone Number [address] [address] [place] Fungus culture + smear (12/12/2019 12:11 PM CDT)Only the most recent of3 resultswithin the time period is included. Result No fungus isolated in 28 days [facility] Fungus Smear <1+ budding yeast [facility] Specimen Tissue Performing Organization Address [facility] [place] [facility] Centercode Phone Number [address] [address] [place] SPIN/CONCENTRATION CHARGE (12/12/2019 12:11 PM CDT)Only the most recent of2 resultswithin the time period is included. Concentration charged Done [facility] Specimen Tissue Performing Organization Address City/[facility] [place] [facility] Centercode Phone Number [address] [address] [place] XR foot 3 views right (12/05/2019 3:32 PM CDT)Only the most recent of3 results within the time period is included. Specimen Narrative Performed At FINAL REPORT [facility] TECHNIQUE: Frontal, lateral, and oblique radiographs of the right foot dated 12/05/2019 HISTORY: Status post debridement COMPARISON: Radiographs of the right cely t dated 12/02/2019. FINDINGS: Patient is status post transmetatarsal a mputation with postsurgical fluid and air seen in the soft tissues. No fracture or dislocation. Bones are osteopenic. Lisfranc joint is well aligned on these nonstress views. No bone erosion or soft tissue nodule seen. No radiodense foreign body. IMPRESSION: Postoperative changes associated with tr ansmetatarsal amputation. Signed: Abdoul Barbosa MD Report Verified Date/Time:12/05/2019 16:43:31 Reading Location: [address] Reading Room Procedure Note Interface, External Ris In - 12/05/2019 4:45 PM CDT FINAL REPORT TECHNIQUE: Frontal, lateral, and oblique radiographs of the right foot dated 12/05/2019 HISTORY: Status post debridement COMPARISON: Radiographs of the right cely t dated 12/02/2019. FINDINGS: Patient is status post transmetatarsal a mputation with postsurgical fluid and air seen in the soft tissues. No fracture or dislocation. Bones are osteopenic. Lisfranc joint is well aligned on these nonstress views. No bone erosion or soft tissue nodule seen. No radiodense foreign body. IMPRESSION: Postoperative changes associated with tr ansmetatarsal amputation. Signed: Abdoul Barbosa MD Report Verified Date/Time: 12/05/2019 1 6:43:31 Reading Location: [address] Rad[address] Reading Room Performing Organization Address City/State/Zipcode Phone Number GE RIS Tissue Exam (12/05/2019 1:01 PM CDT)Only the most recent of2 resultswithin the time period is included. Case Report Surgical Pathology Report Case: [id number] [facility] Authorizing Provider:Gabriel Tilley DPMCollected: 12/05/2019 01:01 PM [facility] Ordering Location: [facility] PERIOPERATIVE Received:12/05/2019 01:40 PM SERVICES Pathologist: Naresh Tillman MD Specimen:Foot, Right , right foot amputation DIAGNOSIS RIGHT FOOT, TRANSMETATARSAL AMPUTATION: [facility] - SKIN AND SOFT TISSUE WITH ACUTE INFLAMMATI ON AND ABSCESS FORMATION, [facility] AND NECROSIS - SKIN AND SOFT TISSUE RESECTION MARGIN, INV OLVED BY ABSCESS FORMATION - BONE RESECTION MARGIN WITH FEATURES OF ACU TE OSTEOMYELITIS Signing Pathologist Direct Phone Line: CPT Code(s) 54938, [address] [facility]ise[facility] CLINICAL HISTORY Non-healing surgical wound, initial encounter [ [id number]] [facility] [id number], [id number], [id number], [id number] [facility] SPECIMEN SOURCE Foot, right [facility] GROSS DESCRIPTION Received in formalin labeled with the patient's name, accession number and "right foot" is a 10.3 x 7.5 x 4.3 cm right transmetatarsal amputation displaying digits 1, 4-5. The skin is shabazz-pink and disp [facility] lays a 5.0 x 2.8 cm shabazz ulce rated lesion at the previous site of amputation that is involving the lateral aspect of the first digit and medial aspect of the fourth digit, and is less than 0.1 cm from [facility] CENTER e skin and soft tissue guerda n (inked blue). The underlying affected bone is shabazz-yellow, trabeculated and firm. Aquatic Life Laborer sections are submitted as follows: Section code A1-lesion and skin and soft tissue margin en fac e A2-A3-bone margin following decalcification A4-skin lesion A5-skin lesion and underlying affected bone foll owing decalcification SHARON Leon (ASCP)cm MICROSCOPIC DESCRIPTION Performed. [facility] [address] [place] [facility] Specimen Tissue Performing Organization Address City/State/Zipcode Phone Number [facility] [address] [place] [address] [place] ECG 12 lead (12/05/2019 9:28 AM CDT) Specimen Narrative Performed At Ventricular Rate 80 BPM GE MUSE Atrial Rate 80 BPM P-R Interval 160 ms QRS Duration 86 ms Q-T Interval 418 ms QTC Calculation(Bazett) 482 ms P Justice 0 degrees R Justice 14 degrees T Justice 36 degrees Sinus rhythm with occasional Premature ventricular com plexes and Premature atrial complexes Otherwise normal ECG No previous ECGs available Confirmed by MD Spence Mahboob ([id number]) on 12/06/2019 8:4 5:22 AM Procedure Note Interface, External Ris In - 12/06/2019 8:45 AM CDT Ventricular Rate 80 BPM Atrial Rate 80 BPM P-R Interval 160 ms QRS Duration 86 ms Q-T Interval 418 ms QTC Calculation(Bazett) 482 ms P Justice 0 degrees R Justice 14 degrees T Justice 36 degrees Sinus rhythm with occasional Premature v entricular complexes and Premature atrial complexes Otherwise normal ECG No previous ECGs available Confirmed by MD Spence Mahboob ([id number]) on 12/06/2019 8:45:22 AM Performing Organization Address City/[facility]/Zipcode Phone Number GE MUSE Platelet Aggregation: Drug Effect (12/04/2019 6:30 AM CDT) Arachadonic Acid 75 63 - 89 % [facility] Interpretation Normal arachidonic acid [facility] and ADP results. No [facility] [id number] or aspirin-like drug effect. Pathologist: Arnav Rouse M.D. [facility] (electonic signature) [facility] Platelets 349 150 - 450 K/CU MM [facility] ADP 74 62 - 100 % [facility] Platelet Rich Plasma 290 200 - 300 k/cu mm [facility] Specimen Blood Narrative Performed At Platelet function studies by aggregation [facility] methodology on samples with platelet count <75,000/CU MM are unreliable; platelet function assessment should not be based on a single test. Fire Supervisor ID - [id number] Performing Organization Address City/[facility]/Zipcode Phone Number [place] [phone] [place] [address] CENTER aPTT (12/04/2019 6:30 AM CDT)Only the most recent of9 resultswithin the time period is included. PTT 37.4 (H) 22.5 - 36.0 seconds [facility] Specimen Blood Performing Organization Address [facility] [place] [facility] Centercode Phone Number [address] [address] [place] Blood Culture - Routine (Left Venipuncture) (12/03/2019 6:44 PM CDT)Only the most recent of4 resultswithin the time period is included. Result No growth in 5 days [facility] Specimen Blood Performing Organization Address City/[facility] [place] [facility] Centercode Phone Number [address] [address] [place] TRANSFUSION SERVICE REPORT - SCAN (12/03/2019 6:00 PM CDT) Narrative Performed At This result has an attachment that is no t available. POC ACTIVATED CLOTTING TIME (12/03/2019 2:35 PM CDT)Only the most recent of2 resultswithin the time period is included. Activated Clotting Time 257Comment: : 74-137 sec [facility] seconds, Baseline: TESTED [facility] AT [address], [id number]: Fire Supervisor/Development Educator ID = [id number] for CHONG BARRIOS Specimen Blood Performing Organization Address [facility] Phone Number [address] [address] CENTER Vancomycin level, trough (12/02/2019 7:09 PM CDT) Vancomycin Tr 13.8 10.0 - 20.0 ug/mL [facility] Specimen Blood Narrative Performed At Fire Supervisor ID - BS [facility] Performing Organization Address [facility]/Zipcode Phone Number [address] [phone] CENTER ABORH, manual (12/02/2019 1:36 AM CDT) ABO Grouping O [facility] Rh Factor POS [facility] Specimen Blood Performing Organization Address City/[facility] [place] [facility] Centercode Phone Number [facility] [address] [place], [place] [phone] Type and screen, automated (12/02/2019 1:16 AM CDT) ABO/RH AUTOMATED (BEAKER) O POSITIVE [facility] Ab Scrn NEGATIVE [facility] Specimen Blood Performing Organization Address City/State/Zipcode Phone Number [facility] [address] [place], [place] [phone] Hemoglobin A1c (12/02/2019 1:16 AM CDT) Hemoglobin A1C 10.0 (H) 4.3 - 6.1 % [facility] Specimen Blood Performing Organization Address [facility]/Zipcode Phone Number [facility] [address] [place] [address] CENTER TOSHIA's Only(Ankle/Brachial Index) (12/01/2019 9:45 AM CDT) Ejection Fraction [facility] Specimen Impressions Performed At Right Impression [facility] 1. The posterior tibial artery is occluded by imaging and dorsalis pedis artery is patent with biphasic Doppler w aveforms. 2. The PT pressure is 173 mmHg with an TOSHIA of 1.18 (collateral flow) and the DP pressure is 173 mmHg with an TOSHIA of 1.18, within normal range. 3. The great toe pressure and TBI are not obtained due to absent PPG waveforms. 4. The 1st and 2nd digits have absent flow by PPG waveforms. The 3rd digit has been amputated. The 4th and 5th digits have decreased flow by PPG waveforms. Left Impression 1. The posterior tibial and dorsalis pedis arteries are patent with biphasic Doppler waveforms. 2. The PT pressure is 117 mmHg with an TOSHIA of 0.80 and the DP pressure is 101 mmHg with an TOSHIA of 0.69, within moderate obstruction range. 3. The great toe pressure is 60 mmHg with an abnormal TBI of 0.41. 4. The digits have adequate flow by PPG waveforms. Conclusions Summary Arterial pressures and Doppler waveforms were performed bilaterally. Adequate Doppler waveforms were obtained. Doppler waveforms were biphasic bilaterally. The right posterior tibial artery was occluded by imaging and dorsalis pedis artery was patent with biphasic Doppler waveforms. The right PT (collateral flow) and DP TOSHIA's were within normal range. The great toe pressure and TBI were not obtained due to absent PPG waveforms. The right 1st and 2nd digits had absent flow by PPG waveforms. The right 3rd digit had been amputated. The right 4th and 5th digits had decreased flow by PPG waveforms. The left TOSHIA's were within moderate obstruction range. The left posterior tibial and dorsalis pedis arteries were patent with biphasic Doppler waveforms. The left toe pressure and TBI's were within abnormal range. The left digits had adequate flow by PPG waveforms. See same day lower extremity arterial duplex examination. Signature Velocities are measured in cm/s ; Diameters are measured in cm Narrative Performed At [facility] - Lower Extremity Arterial Proced [facility] Demographics Patient NameMARIA ISABEL STACY Date of Study 12/01/2019 JERICHO QUINN Age 74 Visit [id number] GenderFemale Date of 1945 Referring Suzanne Jenkins, Room Number 1019 Physician DO Lease Broker Ashlie Marie MD Procedure Type of Study: Extremities Arteries: Lower Extremity Arterial Procedure, ARTERIAL (TOSHIA'S W/DOPPLER) ONLY. Indications for Study:Cold toe. Patient Status:STAT. Study Location:Vascular Lab. Technical Quality:Adequate visualization . Risk Factors History of Disease + + + + !Diagnosis!Date!Comments ! + + + + !History/Risk !12/01/2019!DM2, HTN, PAD,S/P Right femoral stent placement! 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 + + + + Procedure Note Interface, External Ris In - 12/02/2019 11:50 AM CDT [facility] - Lower Extremity Arterial Procedure Demographics Patient Name MARIA ISABEL STACY of Study 12/01/2019 ILTA Ag e 74 Visit Number [id number] Ge nder Female Accession Number [id number] Da te of 1945 Referring Susanna Cross om Number [id number] Physician DO Lease Broker Chandler Alanis In terpreting MONAE Shelton Ph ysician Procedure Type of Study: Extremities Arteries: Lower Extremity A rterial Procedure, ARTERIAL (TOSHIA'S W/DOPPLER) ONLY. Indications for Study:Cold toe. Patient Status:STAT. Study Location:Vascular Lab. Technical Quality:Adequate visualization . Risk Factors History of Disease + + + + !Diagnosis !Date !Comments ! + + + + !History/Risk !12/01/2019!DM2, HTN, PA D,S/P Right femoral stent placement! !Factors: ! !11/26/2019, A mputation right 3rd digit 10/31/2019! + + + + Impressions Right Impression 1. The posterior tibial artery is occlud ed by imaging and dorsalis pedis artery is patent with biphasic Doppler w aveforms. 2. The PT pressure is 173 mmHg with an A BI of 1.18 (collateral flow) and the DP pressure is 173 mmHg with an TOSHIA of 1 .18, within normal range. 3. The great toe pressure and TBI are no t obtained due to absent PPG waveforms. 4. The 1st and 2nd digits have absent fl ow by PPG waveforms. The 3rd digit has been amputated. The 4th and 5th digi ts have decreased flow by PPG waveforms. Left Impression 1. The posterior tibial and dorsalis ped is arteries are patent with biphasic Doppler waveforms. 2. The PT pressure is 117 mmHg with an A BI of 0.80 and the DP pressure is 101 mmHg with an TOSHIA of 0.69, within mod erate obstruction range. 3. The great toe pressure is 60 mmHg wit h an abnormal TBI of 0.41. 4. The digits have adequate flow by PPG waveforms. Conclusions Summary Arterial pressures and Doppler waveform s were performed bilaterally. Adequate Doppler waveforms were obtaine d. Doppler waveforms were biphasic bilaterally. The right posterior tibial artery was occluded by imaging and dorsalis pedis artery was patent with b iphasic Doppler waveforms. The right PT (collateral flow) and DP TOSHIA's were within normal range. The great toe pressure and TBI were not obt ained due to absent PPG waveforms. The right 1st and 2nd digits had absent flow by PPG waveforms. The right 3rd digit had been amputated. The right 4th and 5th digits had decreased flow by PPG waveforms. The left TOSHIA's w ere within moderate obstruction range. The left posterior tibial and do rsalis pedis arteries were patent with biphasic Doppler waveforms. The le ft toe pressure and TBI's were within abnormal range. The left digits had adequate flow by PPG waveforms. See same day lower extremity arteria l duplex examination. Signature Velocities are measured in cm/s ; Diamet ers are measured in cm Performing Organization Address City/State/Zipcode Phone Number [facility] Arterial doppler leg, right (12/01/2019 9:20 AM CDT) Ejection Fraction [facility] Specimen Impressions Performed At Right Impression [facility] 1. The common femoral, profunda femoral, superficial femoral and popliteal arteries are patent with mild diffuse plaque and triphasic/biphasic Doppler waveforms. 2. The mid to distal superficial femoral artery with stent is patent with triphasic Doppler waveforms and with the following velocities: Pre-stent: 81 cm/sec, Proximal stent: 87 cm/sec, Mid stent: 74.7 cm/sec, Distal stent: 72.7 cm/sec and Post stent: 64.4 cm/sec. 3. The posterior tibial artery is occlud ed. 4. The proximal to mid anterior tibial artery is occluded with reconstitution of flow distally via jason ateral. 5. The peroneal artery is patent with mild diffuse plaque and biphasic Doppler waveforms. Conclusions Summary Arterial duplex examination was performed on the right lower extremity. Adequate Doppler waveforms were obtained. The right arterial system was patent with mild diffuse plaque and triphasic/biphasic Doppler waveforms in the femoral, popliteal and peroneal arteries. The stented right superficial femoral artery was patent with normal triphasic Doppler waveforms and no evidence of stenosis. The posterior tibial artery was occluded. The proximal to mid anterior tibial artery was occluded with reconstitution of flow distally via col lateral. See same day TOSHIA examination. Signature Velocities are measured in cm/s ; Diameters are measured in cm LE Duplex Measurements Right Left + + + + + + + + + + !Location ! !PSV !EDV!Waveform ! !PSV !EDV !Waveform ! + + + + + + + + + + !Mid Common Femoral ! !132 ! !Triphasic ! + + + + + + !Prox PFA ! !100 ! !Biphasic ! + + + + + + !Prox SFA ! !94.4! !Triphasic ! + + + + + + !Mid SFA ! !74.7! !Triphasic ! + + + + + + !Dist SFA ! !64.4! !Triphasic ! + + + + + + !Prox Popliteal ! !91.9! !Triphasic ! + + + + + + !Dist Popliteal ! !78.6! !Triphasic ! + + + + + + !Prox FORKLIFT DRIVER ! !0 ! !Absent ! + + + + + + !Mid FORKLIFT DRIVER ! !0 ! !Absent ! + + + + + + !Dist FORKLIFT DRIVER ! !0 ! !Absent ! + + + + + + !Prox CARMEN ! !0 ! !Absent ! + + + + + + !Mid CARMEN ! !0 ! !Absent ! + + + + + + !Dist CARMEN ! !62.6! !Monophasic ! + + + + + + !Prox Peroneal ! !70.2! !Biphasic ! + + + + + + !Mid Peroneal ! !103 ! !Biphasic ! + + + + + + !Dist Peroneal ! !119 ! !Biphasic ! + + + + + + Narrative Performed At LAB - Lower Extremity Arterial Duplex [facility] Demographics Patient NameMARIA ISABEL STACY Date of Study 12/01/2019 JERICHO QUINN Age 74 Visit [id number] GenderFemale Date of 1945 Referring Suzanne Jenkins, Room Number 1019 Physician DO Lease Broker Ashlie Marie MD Procedure Type of Study: Extremities Arteries: Lower Extremities Arterial Duplex, ARTERIAL DOPPLER LEG, RIGHT. Indications for Study:Cold toe and Gangr susana toe. Patient Status:STAT. Study Location:Vascular Lab. Technical Quality:Adequate visualization . Risk Factors History of Disease + + + + !Diagnosis!Date!Comments ! + + + + !History/Risk !12/01/2019!DM2, HTN, PAD,S/P Right femoral stent placement! 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 + + + + Procedure Note Interface, External Ris In - 12/02/2019 11:50 AM CDT [facility] - Lower Extremity Arterial Duplex Demographics Patient Name MARIA ISABEL STACY Da te of Study 12/01/2019 LITA Ag e 74 Visit Number [id number] Ge nder Female Accession Number [id number] Da te of 1945 Referring Susanna Cross om Number [id number] Physician DO Lease Broker Chandler Alanis In terpreting MONAE Shelton Ph ysician Procedure Type of Study: Extremities Arteries: Lower Extremities Arterial Duplex, ARTERIAL DOPPLER LEG, RIGHT. Indications for Study:Cold toe and Gangr susana toe. Patient Status:STAT. Study Location:Vascular Lab. Technical Quality:Adequate visualization . Risk Factors History of Disease + + + + !Diagnosis !Date !Comments ! + + + + !History/Risk !12/01/2019!DM2, HTN, PA D,S/P Right femoral stent placement! !Factors: ! !11/26/2019, A mputation right 3rd digit 10/31/2019! + + + + Impressions Right Impression 1. The common femoral, profunda femoral, superficial femoral and popliteal arteries are patent with mild diffuse pl aque and triphasic/biphasic Doppler waveforms. 2. The mid to distal superficial femoral artery with stent is patent with triphasic Doppler waveforms and with the following velocities: Pre-stent: 81 cm/sec, Proximal stent: 87 cm/sec, Mid s tent: 74.7 cm/sec, Distal stent: 72.7 cm/sec and Post stent: 64.4 cm/sec. 3. The posterior tibial artery is occlud ed. 4. The proximal to mid anterior tibial a rtery is occluded with reconstitution of flow distally via jaosn ateral. 5. The peroneal artery is patent with mi ld diffuse plaque and biphasic Doppler waveforms. Conclusions Summary Arterial duplex examination was perform ed on the right lower extremity. Adequate Doppler waveforms were obtaine d. The right arterial system was patent with mild diffuse plaque and tri phasic/biphasic Doppler waveforms in the femoral, popliteal and peroneal arteries. The stented right superficial femoral artery was patent w ith normal triphasic Doppler waveforms and no evidence of stenosis. The posterior tibial artery was occluded. The proximal to mid anterior tibial artery was occluded with reconstitution of flow distally via col lateral. See same day TOSHIA examination. Signature Velocities are measured in cm/s ; Diamet ers are measured in cm LE Duplex Measurements Right Left + + + + + + + + + + !Location ! !PSV !EDV !Waveform ! !PSV !EDV !Waveform ! + + + + + + + + + + !Mid Common Femoral ! !132 ! !Triphasic ! + + + + + + !Prox PFA ! !100 ! !Biphasic ! + + + + + + !Prox SFA ! !94.4 ! !Triphasic ! + + + + + + !Mid SFA ! !74.7 ! !Triphasic ! + + + + + + !Dist SFA ! !64.4 ! !Triphasic ! + + + + + + !Prox Popliteal ! !91.9 ! !Triphasic ! + + + + + + !Dist Popliteal ! !78.6 ! !Triphasic ! + + + + + + !Prox FORKLIFT DRIVER ! !0 ! !Absent ! + + + + + + !Mid FORKLIFT DRIVER ! !0 ! !Absent ! + + + + + + !Dist FORKLIFT DRIVER ! !0 ! !Absent ! + + + + + + !Prox CARMEN ! !0 ! !Absent ! + + + + + + !Mid CARMEN ! !0 ! !Absent ! + + + + + + !Dist CARMEN ! !62.6 ! !Monophasic ! + + + + + + !Prox Peroneal ! !70.2 ! !Biphasic ! + + + + + + !Mid Peroneal ! !103 ! !Biphasic ! + + + + + + !Dist Peroneal ! !119 ! !Biphasic ! + + + + + + Performing Organization Address City/State/Zipcode Phone Number [facility] C-Reactive Protein (12/01/2019 4:50 AM CDT) CRP 13.79 (H) 0.00 - 0.50 mg/dL [facility] Specimen Blood Narrative Performed At Fire Supervisor ID - PIMICHI L [facility] Performing Organization Address City/State/Zipcode Phone Number [facility] [address] [place], [place] [phone] CENTER after 03/24/2019 Insurance Payer Benefit Plan / Subscriber ID Type Phone Address Group [facility] MEDICARE xxxxxxxxx MEDICARE MGD CARE HMO CDC REVIEW CDC REVIEW xxxxxxxx [place] [address] MEDICAID MEDICAID [facility] xxxxxxxxx Medicaid Advance Directives For more information, please contact:[address] [phone] Code Status Date Activated Date Inactivated Comments Full Code 02/10/2020 5:14 PM 02/17/2020 7:17 PM This code status was determined by: Patient Full Code 12/18/2019 4:37 PM 12/31/2019 3:26 PM This code status was determined by: Patient Full Code 12/01/2019 5:34 AM 12/18/2019 4:18 PM This code status was determined by: Patient
--- OUTSIDE RECORDS SUMMARY | 2020-03-24 20:58 | XMS REPORT | Summary of Care ---
:1945 Author Organization [facility] [place] [address] Care Team Providers Name Role Phone Unavailable Primary Care Provider Unavailable Reason for Visit Reason Comments Foot Pain Encounter Details Date Type Department Care Team Description 01/21/2020 Office Visit [facility] Jason Haas MD Foot Pain Physical Medicine & [address], [place] [id number] [facility] [phone] [address], [address] [place], [place] [id number] Allergies No Known Allergiesdocumented as of this encounter (statuses as of 01/21/2020) Medications Medication Sig Dispensed Refills Start Date End Date Status aspirin EC 81 MG Take 81 mg 0 10/21/2019 A ctive tablet by mouth. atorvastatin Take 80 mg 0 12/30/2019 Activ e (LIPITOR) 80 MG by mouth. tablet clopidogrel Take 75 mg 0 10/22/2019 Active (PLAVIX) 75 MG by mouth. Tablet SANTYL 250 UNIT/GM JENNIFER KANNAN 0 11/06/2019 Active ointment THICK AMOUNT TO WOUND QD UTD docusate sodium Take 100 mg 0 12/30/2019 A ctive (COLACE) 100 MG by mouth. capsule glipiZIDE Take 10 mg 0 10/21/2019 Active (GLUCOTROL) 10 MG by mouth. CR tablet ACCU-CHEK GUIDE 0 01/05/2020 Act yeimy hydrocodone-acetami Take 1 Tab 0 10/21/2019 Active nophen (NORCO) by mouth. 5-325 mg tablet insulin glargine Inject 7 0 12/30/2019 Ac tive (LANTUS) 100 Units into UNIT/ML injection the skin. Melatonin 3 MG TABS Take 3 mg by 0 12/30/2019 Active mouth. 0 metformin Take 1,000 0 07/17/2019 Active (GLUCOPHAGE) 1000 mg by mouth. MG tablet nortriptyline Take 25 mg 0 07/17/2019 Acti ve (PAMELOR) 25 MG by mouth. capsule pantoprazole Take 40 mg 0 10/22/2019 Activ e (PROTONIX) 40 MG by mouth. tablet polyethylene glycol Take 17 g by 0 10/22/2019 Active (GLYCOLAX) 17 g mouth. packet Psyllium (METAMUCIL Take 1 0 10/22/2019 Active FIBER) 51.7 % PACK Packet by mouth. Ticagrelor 90 MG Take 90 mg 0 12/30/2019 A ctive TABS by mouth. 0 BRILINTA 90 MG TABS TK 1 T PO 0 12/31/2019 Active BID tramadol (ULTRAM) TK 1 T PO Q 0 11/03/2019 Active 50 MG tablet 6 H PRN P zinc sulfate Take 220 mg 0 12/31/2019 Acti ve (ZINCATE) 220 (50 by mouth. 0 Zn) MG capsule gabapentin Take 1 Cap 90 Cap 3 01/21/2020 Active (NEURONTIN) 300 MG by mouth 3 0 capsule times daily for 60 days. gabapentin Take 300 mg 0 12/30/2019 Discon tinued (NEURONTIN) 300 MG by mouth. 0 ( Reorder) capsule documented as of this encounter (statuses as of 01/21/2020) Active Problems Not on filedocumented as of this encounter (statuses as of 01/21/2020) Immunizations Name Administration Dates Next Due Influenza Quadrivalent 3YRS+ 03/26/2019, 04/10/2018, 017, 04/26/2011 Pneumococcal 13-valent Conjugate 03/28/2017 Vaccine Pneumococcal Polysaccharide 04/10/2018 documented as of this encounter Social History Tobacco Use Types Packs/Day Years Used Date Never Smoker Smokeless Tobacco: Never Used Alcohol Use Drinks/Week oz/Week Comments Never Alcohol Habits Answer Date Recorded How often do you have a drink containing alcohol? Never 01/21/2020 How many drinks containing alcohol do you have on a typical Not asked day when you are drinking? How often do you have six or more drinks on one occasion? No t asked Sex Assigned at Date Recorded Not on file documented as of this encounter Last Filed Vital Signs Vital Sign Reading Time Taken Comments Blood Pressure 120/64 01/21/2020 11:29 AM CDT Pulse 70 01/21/2020 11:29 AM CDT Temperature 37 C (98.6 F) 01/21/2020 11:29 AM CDT Respiratory Rate - - Oxygen Saturation - - Inhaled Oxygen Concentration - - Weight 61.7 kg (136 lb) 01/21/2020 11:29 AM CDT Height 162.6 cm (5' 4") 01/21/2020 11:29 AM CDT Body Mass Index 23.34 01/21/2020 11:29 AM CDT documented in this encounter Progress Notes Jason Haas MD - 01/21/2020 11:30 AM CDT Referring physician: Dr. Pat Ndiaye Cc: Follow up s/p IPR and R forefoot TMA History of Present Illness (Per patient and chart review) Ms. Maria Isabel Stacy is a pleasant 74 y.o. female who is seen in consultation at the kind request of Dr. Ndiaye to assess her symptoms. From Chart Review of outside pertinent records: "74 y/o F PMH DM2 (HbA1c 10 12/06/19), HTN, PAD s/p amputation 3rd R toe 10/31/19 and RLE angiogram with questionable revacularization of R 2nd toe 11/25/19 presented to [facility] on 12/01/19 with worsening R foot gangrene. S/p R TMA 12/05/19. Wound/bones cultures grew providencia/morganella ampC +, fungal smear showed kulwant but no culture growth after 5 days. ID was consulted; IV meropenem 12/03/19-12/12/19, IV ertapenem 12/14/19-12/17/19. Rehab consulted for decreased independence related to R TMA .Patient wasdetermined to be appropriate and benefit for acute inpatient rehabilitation. On arrival to [facility], patient complaining for pain in R foot. She notes decreased sensation L toes due to diabetes and decreased vision R eye due to cataracts/diabetes." Exam on admission: "GEN: Normally developed, resting in bed, no acute discomfort EYES: PERRL, EOMI, conjugate gaze, tracks well, no conjunctival or scleral irritation HENT: Oropharynx clear, MMM, ears, nose, neck externally normal. PULM: Breathing comfortably without splinting or use of accessory muscles, lungs clear to auscultation bilaterally CV: No vasomotor instability, extremities warm and well perfused. Normal s1 and s2. Edema is absent. GI: abdomen is soft, non-tender, non-distended : No lindsey SKIN: non blanching sacral erythema MSK: Intermittent triggering bilateral 4th and 5th digits Tone: normal muscle tone and bulk without adventitial/involuntary movements Power: MMT 0-5 scoring: R, L R L SAb 5 5 EF 5 5 EE 5 5 WE 5 5 WF 5 5 FF 5 5 Zhen 4 4 HF 5 5 KF 5 5 KE 5 5 DF 5 5 PF 5 5 GTE N/A 5 ROM: (tested passively when active ROM is limited by strength) Neck- full ROM Shoulder- full ROM B Elbow- full ROM B Wrist- full ROM B Fingers- full ROM B Hip- full ROM B Knee- full ROM B Ankle- full ROM B NEURO: Cranial nerves: Pupils are equal, round, and reactive to light bilaterally Extra-ocular movements grossly intact Facial sensation intact to light touch and symmetrical in V1-V3 bilaterally Contraction of muscles of mastication WNL and symmetrical Face appears symmetrical without weakness Speech with normal tone and volume and without dysarthria Shoulder shrug full strength bilaterally Tongue protrudes midline and without fasciculations Reflexes: Bic Tri BrachioRad Patella Achilles R 1+ N/A N/A L 1+ 2+ 2+ Sensory function: Decreased sensation L toes PSYCHIATRIC: Mood: Alert, appropriate, pleasant, cooperative; normal affect Mental Status: LOC: Awake, alert, interactive Oriented to: Self, City, Month, Year, but not date or hospital " Exam on discharge: "Gen: sitting in rehab mat, appears sad CV: well perfused with no signs of vasomotor instability Pulm: breathing comfortably with no use of accessory muscles MSK: greater than antigravity strength in bilateral upper extremities, s/p TMA on R side Neuro: awake, alert, interactive. The patient is able to answer simple questions in a reasonable amount of time. Psych: mood and affect are appropriate and congruent Skin: wound vac on R TMA site " "This patient is a 74 y.o. female who was admitted to IRF for Impaired mobility and ADL function following R foot gangrene 2/2 to PAD now s/p R TMA. During her course in rehab, her pain remained well controlled and she was subsequently weaned off tramadol and continued on just PRN tylenol and scheduled gabapentin. She did experience some grief due to the loss of her family members. Reassurrance and support from the rehab team and our certified home health aide was provided. Her insulin regimen was titrated with the addition of metformin 500mg BID. On DC, her FSG was well controlled ranging in the 100-200s. Her woundvac was managed and changed QMWF by the wound RN. She did have an episode of abdominal cramping withnausea and diarhea which was transient and lasted <24 hrs, resolved spontaneously. It was thoughtthat this was likely due to bowel medications. Finally, she was found to have a R 4th digit trigger finger. OT notified but unfortunately, no splint available, and a trial makeshift by OT was impractical. She reported R upper arm pain. US was NEG. She continued to participate with therapies and by time of DC, she was functioning at a Supervision to set up assist with most ADLs and supervision to independent with transfers and ambulation. She will be DCed to home with her son, Haim in stable condition. Admission Function: Functional History/Current Status: Previous Functional Status: Mobility: Independent but uses rolling walker ADL - Basic: Independent ADL - Complex: Unknown and Independent Speech/Language: None Swallowing: normal Current Functional Status: Mobility: Supervision ADL - Basic: Supervision ADL - Complex: Independent Speech/Language: None Swallowing: normal As per PT note 12/18/19: Standing balance position: 2 UE support , kyphotic , cues , safety concerns and RW Static LOF Grade: Contact guard Bed mobility: Scooting Sitting Stand by assist Transfers: Supine to Sit: Stand by assist Sit to Supine: Stand by assist Sit to Stand: Contact guard Stand to Sit: Contact guard Ambulation: Assistive Device: Rolling Walker and post-op shoe donned RLE Level of Assistance on level surface: Contact guard Distance in feet: 80 feet x 2 Weight Bearing Precaution: weight bearing as tolerated RLE Gait Analysis/Deviation: slow pace, short step-through gait pattern, decreased B foot clearance, decreased weight bearing through RLE " "Maria Isabel Stacy *Despite extensive efforts to improve pt's safety awareness, pt continues to demonstrate unsafe behaviors with all standing ADLs and transfers.Given SBA-CGA and verbal cues, pt can safely perform ADLs with standing as desired. However, pt encouraged to sit when possible to minimize fall risk. Pt has increased independence when performed wheelchair level. When seated, she can perform most ADLs at Mod I level. Despite this increased independence with sitting, pt is motivated to return to PLOF. If pt insists upon completing in standing upon discharge, she will continue to require SBA to CGA. She is a high fall risk due to decreased balance, presence of wound vac on R foot, history of LLE weakness 2/2fall fracture (per son Haim), and decreased safety awareness. Emphasized this to son Haim during conference last week. *Pt's son Haim stated to OT that he is willing to assist his mom with any of her needs *In this document, w/c level refers to sitting position or seated on rollator with brakes engaged (as pt will not have a wheelchair at home) " At present, patient is doing okay. She is here with her son. Azael Sheridan, my partner for O&P is present also assisting with arabic translation. Patient is overall doing well, no acute new s/s / full ROS negative except wound vac broke two weekends ago on a Sunday and wasn't replaced until Sunday. Wound appeared more moist but given wound vac functioning now, should address any moisture. Medical History The patient's history and medications were reviewed and are as follows: Past Medical History: (as per [facility] chart in conjunction with intake form from patient) DM2 (HbA1c 10 12/06/19), HTN, PAD s/p amputation 3rd R toe 10/31/19 and RLE angiogram with questionable revacularization of R 2nd toe 11/25/19 worsening R foot gangrene. S/p R TMA 12/05/19 Past Surgical History: S/p R TMA 12/05/19 Medications: Current Outpatient Medications on File Prior to Visit Medication Sig Dispense Refill ACCU-CHEK GUIDE aspirin EC 81 MG tablet Take 81 mg by mouth. atorvastatin (LIPITOR) 80 MG tablet Take 80 mg by mouth. BRILINTA 90 MG TABS TK 1 T PO BID clopidogrel (PLAVIX) 75 MG Tablet Take 75 mg by mouth. docusate sodium (COLACE) 100 MG capsule Take 100 mg by mouth. glipiZIDE (GLUCOTROL) 10 MG CR tablet Take 10 mg by mouth. hydrocodone-acetaminophen (NORCO) 5-325 mg tablet Take 1 Tab by mouth. insulin glargine (LANTUS) 100 UNIT/ML injection Inject 7 Units into the skin. Melatonin 3 MG TABS Take 3 mg by mouth. metformin (GLUCOPHAGE) 1000 MG tablet Take 1,000 mg by mouth. nortriptyline (PAMELOR) 25 MG capsule Take 25 mg by mouth. pantoprazole (PROTONIX) 40 MG tablet Take 40 mg by mouth. polyethylene glycol (GLYCOLAX) 17 g packet Take 17 g by mouth. Psyllium (METAMUCIL FIBER) 51.7 % PACK Take 1 Packet by mouth. SANTYL 250 UNIT/GM ointment JENNIFER KANNAN THICK AMOUNT TO WOUND QD UTD Ticagrelor 90 MG TABS Take 90 mg by mouth. tramadol (ULTRAM) 50 MG tablet TK 1 T PO Q 6 H PRN P zinc sulfate (ZINCATE) 220 (50 Zn) MG capsule Take 220 mg by mouth. No current facility-administered medications on file prior to visit. Allergies: No Known Allergies Social History: Social History Tobacco Use Smoking status: Never Smoker Smokeless tobacco: Never Used Substance Use Topics Alcohol use: Never Frequency: Never Drug use: Never Family History: No family history on file. Review of Systems Comprehensive 10 point scale ROS was reviewed and is pertinent for symptoms as noted above. Otherwise, all other systems were noncontributory/negative. Medical intake form reviewed. Physical Exam Vitals: Vitals: 01/21/20 1129 BP: 120/64 BP Location: left arm Patient Position: Sitting Cuff Size: regular Pulse: 70 Temp: 98.6 F (37 C) Weight: 136 lb (61.7 kg) Height: 5' 4" (1.626 m) General: NAD, A, OX3, WNWD. HEENT: NC/AT. MMM. Conjunctiva normal. Extraocular muscles intact. Skin: No generalized rashes or erythema noted. Neck: Supple. Pulm: Respirations unlabored, equal. Abd: Soft, nontender CV: Warm, well-perfused Ext: No c/c/e Gait: able to stand from wheelchair on her R heel on her own, pivot and transfer from to exam bedon her own. Wound undressed but wound vac not removed as no replacement supplies. Wound appears to be appropriately healing. No unusual erythema or excessive maceration. No pus. Wound vac was just changed so no drainage in drain or container. Wound was rewrapped for comfort. Assessment Ms. Maria Isabel Stacy is a pleasant 74 y.o. female with DM2 (HbA1c 10 12/06/19), HTN, PAD s/p amputation 3rd R toe 10/31/19 and RLE angiogram with questionable revacularization of R 2nd toe 11/25/19 andworsening R foot gangrene, now s/p R TMA 12/05/19 presents with Continued wound healing of R TMA with wound vac. Plan / Recommendations - The above conditions, differential diagnoses and pathophysiology were discussed - Diagnostic and therapeutic management plans were discussed in detail #R TMA Patient doing well. Wound vac continues to function now. Set at 120mmHg continuous. [place] still intact. Patient wanted to notify Dr. Franco due to failure of vac for a weekend. Messaged Dr. Franco update via [employer] Patient with follow up appointment with Dr. Franco on Feb 01, at 3:45pm #When wound vac removed and wound healing appropriately, will have patient follow up for possible orthotics. #Counseled on diabetes management, encouraged to follow up with PCP. Patient waiting on lancets to arrive. - Biomechanical associations and preventative strategies outlined - Activity modifications were advised - Follow up in 1-2 months after wound vac is removed. It was a pleasure to see Ms. Maria Isabel Stacy in clinic today. documented in this encounter Plan of Treatment Date Type Specialty Care Team Description 02/02/2020 Office Visit Vascular Surgery Giovanny Franco MD [address] [facility] [address] [place], [place] [phone] Health Maintenance Due Date Last Done Comments COLON CANCER SCREENING: COLONOSCOPY 1945 MAMMOGRAM ANNUAL 1945 TETANUS SHOT (ADULT) 1961 HEPATITIS C SCREENING 1964 FALL SCREEN 08/29/2011 01/21/2020 OSTEOPOROSIS SCREENING 08/29/2011 MEDICARE IPPE (WELCOME TO MEDICARE) 12/01/2019 FLU VACCINE > 6 MONTHS 01/17/2020 PNEUMOVAX >=65 (PPSV23) Completed 04/10/2018 documented as of this encounter Results Not on filedocumented in this encounter Visit Diagnoses Diagnosis Impaired mobility and ADLs - Primary Mechanical problems with limbs S/P transmetatarsal amputation of foot, right (HCCode) Encounter for postoperative wound care Other specified aftercare following surg liyah documented in this encounter Insurance Payer Benefit Plan / Subscriber ID Effective Phone Address T ype Group Dates [employer] [id number] 2019-Pres [address] [address] [place] [address] MEDICAID TMHP-MEDICAID [id number] Effective for [address] dicaid - MEDICAID all dates [id number] [place] [address] documented as of this encounter
--- OUTSIDE RECORDS SUMMARY | 2020-03-24 20:58 | XMS REPORT | Continuity of Care Document ---
:1945 Author Organization [facility] t Address [address] [place] [address] Care Team Providers Name Role Phone Pcp Primary Care Physician Unavailable Balta Stovall DPM Attending Clinician Balta Stovall DPM Attending Clinician Arias Gimenez MD Attending Clinician Osmin KIM Attending Clinician Tanner Thayer Attending Clinician Lucila Horowitz MD Attending Clinician BALTA STOVALL Attending Clinician Unavailable Le Burgos Attending Clinician Unavailable Waldo KIM Attending Clinician Waldo KIM Attending Clinician Dada Alejo MD Attending Clinician DADA ALEJO Attending Clinician Unavailable Lucretia MERCEDES Attending Clinician Unavailable Lucretia Mercedes MD Attending Clinician Gregory KMI, PKaran Attending Clinician Wade Barbosa MD Attending Clinician Rich Grover MD Attending Clinician Doctor Unassigned, Name Attending Clinician Unavailable Letitia Lizarraga CRNA Attending Clinician Devan Horner CRNA Attending Clinician Lionel Franco MD Attending Clinician Debbie Abdul CRNA Attending Clinician [phone] Bo Riggs MD Attending Clinician OSMIN Admitting Clinician Unavailable DADA ALEJO Admitting Clinician Unavailable Lucretia MERCEDES Admitting Clinician Unavailable Payers Payer Name Policy Policy Number Effective Expiration Source Type Date Date [facility] - xxxxxxxxx [facility] MEDICARE MGD CAREUNITED L ukes - MEDICARE HMOxxxxxxxxx Med [facility] Center FORMERLY NAMED [facility] REVIEWCDC xxxxxxxx [place] [address] [facility] MEDICAIDMEDICAID OF xxxxxxxxx [place] t [place] [facility] Problems Condition Condition Condition Status Onset Resolution Last Treating Co mments Source Name Details Category Date Date Treatment Clinician Date Post-opera Post-opera Disease Active [facility] tive state tive state 02-09 Laurita kes - 00:00: Medical 00 Center Surgical Surgical Disease Active [facility] aftercare, aftercare, 02-09 [facility] - skin or skin or 00:00: Medical subcutaneo subcutaneo 00 Ce nter us tissue us tissue 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 00 Center through through metatarsal metatarsal bone bone Impaired Impaired Disease Active [facility] mobility mobility 12-17 [facility] - and and 00:00: Medical activities activities 00 Ce nter of daily of daily living living 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 2 12-17 ke s - diabetes diabetes 00:00: Medica l mellitus mellitus 00 Center with with hyperglyce hyperglyce radha radha Post-opera Post-opera Disease Active [facility] tive pain tive pain - [facility] - 00:00: Medical 00 [place] Anemia Anemia Disease Active [facility] 12-17 [facility] - 00:00: Medical 00 [place] Thrombocyt Thrombocyt Disease Active [facility] osis osis 12-17 [facility] - 00:00: Medical 00 [place] 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 Family History Family Member Diagnosis Comments Start Date Stop Date Source Natural father Diabetes type II [facility] Social History Social Habit Start Date Stop Date Quantity Comments Source History SDOH Alcohol [facility] Std Drinks [facility] History [facility] Alcohol [facility] Binge [facility] Sex Assigned At [facility] History SDOH Alcohol 2019-12-01 2019-12-01 1 [facility] - Frequency 00:00:00 00:00:00 [facility] Smoking Status Start Date Stop Date Source Never smoker [facility] edical [place] Medications Ordered Filled Start Stop Current Ordering Indication Dosage Frequency Signature Comments Components Source Medication Medication Date Date Medication? Clinician (SIG) Name Name lisinopriL 2020- Yes 5mg QD Take [address] [facility] (PRINIVIL,Z 02-16 tablet (5 Laurita kes - ESTRIL) 5 00:00: 23:59 mg total) Me dical MG tablet 00 :00 by mouth [place] daily. ferrous 2020- Yes 325mg QD Take [address] sulfate 325 02-16 [facility] ([facility] FE) MG 00:00: 23:59 (325 mg Med ical tablet 00 :00 total) by Center mouth daily. Missing or Yes . [facility] Non-Formula 8- [facility] - ry 10:40: Medical Medication 29 Center sodium Yes 1{appli QD Apply 1 [facility] hypochlorit 8-12 cation} applicatio [facility] - e (DAKIN'S 00:00: n Medical SOLUTION) 00 topically Cente r 0.25 % daily. external solution aspirin 81 Yes 81mg QD Take 1 [facility] MG chewable 7-15 tablet (81 Laurita kes - tablet 00:00: mg total) Medica l 00 by mouth Center daily. multivitami 2020-0 2020- No 1{tbl} QD Take [address] n 7-15 -13 tablet by [facility] - (THERAGRAN) 00:00: 23:59 mouth Medi casey tablet 00 :00 daily for Center 60 days. zinc 2020-0 2020- No 220mg QD Take [address] [facility] sulfate 7-15 -13 capsule [facility] - (ZINCATE) 00:00: 23:59 (220 mg Medi casey 220 (50) mg 00 :00 total) by [facility] ter capsule mouth daily for 60 days. aspirin 81 2020-0 2020- No 81mg QD Take [address] MG chewable 7-15 07-14 tablet (81 L ukes - tablet 00:00: 00:00 mg total) Medic al 00 :00 by mouth Center daily. multivitami 2020-0 2020- No 1{tbl} QD Take [address] n 7-15 -14 tablet by [facility] - (THERAGRAN) 00:00: 00:00 mouth Medi casey tablet 00 :00 daily for Center 60 days. zinc 2020-0 2020- No 220mg QD Take [address] sulfate 7-15 -14 capsule [facility] - (ZINCATE) 00:00: 00:00 (220 mg Medi casey 220 (50) mg 00 :00 total) by [facility] capsule mouth daily for 60 days. insulin 2020-0 2020- No 10U QD Inject [address] glargine 7-14 07-14 Units [facility] - (LANTUS) 12:18: 00:00 subcutaneo Me dical 100 unit/mL 41 :00 usly Center injection nightly Use as directed . atorvastati 2020-0 Yes 80mg QD Take [address] [facility] n (LIPITOR) 7-14 tablet (80 Laurita kes - 80 MG 00:00: mg total) Medical tablet 00 by mouth Center nightly. docusate 2020-0 Yes 100mg Take [address] [facility] sodium 7-14 capsule [facility] - (COLACE) 00:00: (100 mg Medica l 100 MG 00 total) by Center capsule mouth daily as needed for Constipati on. insulin 2020-0 Yes 7U QD Inject [address] glargine 7-14 Units [facility] - (LANTUS) 00:00: subcutaneo Med ical 100 unit/mL 00 usly Center injection nightly Use as directed . ascorbic 2019- 2020- No 500mg Q.5D Take 1 [facility] acid, 12-29 tablet [facility] - vitamin C, 00:00: 23:59 (500 mg Med ical (VITAMIN C) 00 :00 total) by [facility] 500 MG mouth 2 tablet (two) times daily for 60 days. gabapentin 2019- No 300mg Q.[id number] Take [address] (NEURONTIN) 12-29 [id number] capsule [facility] - 300 MG 00:00: 23:59 3D (300 mg Medical capsule 00 :00 total) by Center mouth 3 (three) times daily for 60 days. melatonin 3 2019- No 3mg QD Take [address] mg Tab 12-29 tablet (3 [facility] - tablet 00:00: 23:59 mg total) Medic al 00 :00 by mouth Center nightly for 60 days. metFORMIN 2019- No 500mg Take [address] [facility] (GLUCOPHAGE 12-29 tablet [facility] - ) 500 MG 00:00: 23:59 (500 mg Medic al tablet 00 :00 total) by Center mouth 2 (two) times daily with breakfast and dinner for 60 days. ticagrelor 2019- No 90mg Q.5D Take [address] (BRILINTA) 12-29 tablet (90 Laurita kes - 90 mg Tab 00:00: 23:59 mg total) Me dical tablet 00 :00 by mouth 2 Center (two) times daily for 60 days. polyethylen 2019- No 17g Take [address] [facility] e glycol 12-29 by mouth [facility] - (GLYCOLAX) 00:00: 00:00 daily as Me dical 17 gram 00 :00 needed Center packet (constipat ion). atorvastati 2019- No 80mg QD Take [address] n (LIPITOR) 12-29 tablet (80 L ukes - 80 MG 00:00: 00:00 mg total) Medica l tablet 00 :00 by mouth Center nightly. insulin 2019-2019- No 7U QD Inject 7 [facility] glargine 12-29 Units [facility] - (LANTUS) 00:00: 00:00 subcutaneo Me dical 100 unit/mL 00 :00 usly Center injection nightly Use as directed . ascorbic 2019- 2020- No 500mg Q.5D Take 1 [facility] acid, 12-29 tablet [facility] - vitamin C, 00:00: 00:00 (500 mg Med ical (VITAMIN C) 00 :00 total) by [facility] 500 MG mouth 2 tablet (two) times daily for 60 days. docusate 2019- 2020- No 100mg Take 1 [facility] sodium 12-29 capsule [facility] - (COLACE) 00:00: 00:00 (100 mg Medic al 100 MG 00 :00 total) by Center capsule mouth daily as needed for Constipati on. gabapentin 2019-2019- No 300mg Q.[id number] Take [address] (NEURONTIN) 12-29 [id number] capsule [facility] - 300 MG 00:00: 00:00 3D (300 mg Medical capsule 00 :00 total) by Center mouth 3 (three) times daily for 60 days. melatonin 3 2019- No 3mg QD Take [address] mg Tab 12-29 tablet (3 [facility] - tablet 00:00: 00:00 mg total) Medic al 00 :00 by mouth Center nightly for 60 days. metFORMIN 2019- 2020- No 500mg Take [address] [facility] (GLUCOPHAGE 12-29 tablet [facility] - ) 500 MG 00:00: 00:00 (500 mg Medic al tablet 00 :00 total) by Center mouth 2 (two) times daily with breakfast and dinner for 60 days. polyethylen 2019-2019- No 17g Take [address] e glycol 12-29 by mouth [facility] - (GLYCOLAX) 00:00: 00:00 daily as Me dical 17 gram 00 :00 needed Center packet (constipat ion). ticagrelor 2019-0 2020- No 90mg Q.5D Take [address] (BRILINTA) 12-29 tablet (90 Laurita kes - 90 mg Tab 00:00: 00:00 mg total) Me dical tablet 00 :00 by mouth 2 Center (two) times daily for 60 days. ascorbic No 500mg Q.5D Take 1 [facility] acid, 7- 07-14 tablet [facility] - vitamin C, 00:00: 00:00 (500 mg Med ical (VITAMIN C) 00 :00 total) by [facility] 500 MG mouth 2 tablet (two) times daily for 60 days. metoprolol No 25mg QD Take [address] succinate 12-04 by mouth [facility] - (TOPROL-XL) 11:14: 00:00 daily. Med ical 25 MG 24 hr 16 :00 Center tablet furosemide No 40mg QD Take [address] (LASIX) 40 12-04 by mouth Luke [facility] - MG tablet 11:14: 00:00 daily. Medic al 03 :00 Center apixaban No treatment 2.5mg Q.5D Take 2.[address] (ELIQUIS) 12-04 to prevent mg by Laurita kes - 2.5 mg Tab 11:13: 00:00 blood clots mouth 2 Medical tablet 53 :00 in chronic (two) Center atrial times fibrillatio daily. n collagenase Yes 1{appli QD Apply [address] (SANTYL) 5-21 cation} applicatio Laurita kes - 250 units/g 00:00: n Medica l ointment 00 topically Center daily Apply sergio thick amount to wound daily. SANTYL 250 2019- No 1{appli QD Apply [address] unit/gram 5-21 07-14 cation} applicatio [facility] - ointment 00:00: 00:00 n Medical 00 :00 topically Center daily Andres nickel thick amount to wound QD. traMADoL Yes 1{tbl} Take 1 [facility] (ULTRAM) 50 5-18 tablet by Mery es - mg tablet 00:00: mouth Medical 00 every 6 Center (six) hours as needed for Pain. traMADoL 2019- No 1{tbl} Take [address] (ULTRAM) 50 5-18 07-14 tablet by Laurita kes - mg tablet 00:00: 00:00 mouth Medica l 00 :00 every 6 Center (six) hours as needed for Pain. HYDROcodone 2019- No 1{tbl} Take [address] -acetaminop 5-16 07-14 tablet by Laurita kes - hen (NORCO 00:00: 00:00 mouth Medic al 5-325) 00 :00 every 6 Center 5-325 mg (six) per tablet hours as needed for Pain. clopidogreL 2020-0 Yes 75mg QD Take [address] (PLAVIX) 75 5-06 by mouth [facility] - mg tablet 00:00: daily. Medica l 00 Center pantoprazol 2020-0 Yes 40mg QD Take [address] [facility] e 5-06 by mouth [facility] - (PROTONIX) 00:00: daily. Medic al 40 MG 00 Center tablet polyethylen 2020-0 Yes 17g Take [address] e glycol 5-06 by mouth [facility] - (GLYCOLAX) 00:00: daily as Med ical 17 gram 00 needed for Center packet Constipati on. psyllium 2020-0 Yes 1{packe QD Take [address] (METAMUCIL 5-06 t} packet by Luke s - FIBER 00:00: mouth Medical SINGLES) 00 daily. Center 3.4 gram packet glipiZIDE 2019-0 Yes 10mg QD Take [address] (GLUCOTROL 5-05 by mouth [facility] - XL) 10 MG 00:00: daily. Medica l 24 hr 00 Center tablet HYDROcodone 2019-0 Yes 1{tbl} Take [address] -acetaminop 5-05 tablet by Mery es - hen (NORCO 00:00: mouth Medica l 5-325) 00 every 6 Center 5-325 mg (six) per tablet hours as needed for Pain. aspirin 81 2020-0 2020- No 81mg QD Take [address] MG chewable 5-05 08-21 by mouth Mery es - tablet 00:00: 00:00 daily. Medical 00 :00 Center clopidogreL 2020-0 2020- No 1{tbl} QD Take [address] (PLAVIX) 75 5-05 07-14 tablet by Laurita kes - mg tablet 00:00: 00:00 mouth Medica l 00 :00 daily. Center atorvastati 2020-0 2020- No 1{tbl} QD Take [address] n (LIPITOR) 5-05 07-14 tablet by Laurita kes - 40 MG 00:00: 00:00 mouth Medical tablet 00 :00 nightly. [place] pantoprazol 2020- No 1{tbl} QD Take [address] e 5-05 07-14 tablet by [facility] - (PROTONIX) 00:00: 00:00 mouth Medic al 40 MG 00 :00 daily. [place] tablet nortriptyli Yes 25mg QD Take [address] ne 1-30 by mouth [facility] - (PAMELOR) 00:00: daily. Medica l 25 MG 00 [place] capsule Vital Signs Vital Name Observation Time Observation Value Comments Source Systolic blood 2020-02-17 13:00:00 162 mm[Hg] [facility] Diastolic blood 2020-02-17 13:00:00 74 mm[Hg] [facility] Heart rate 2020-02-17 13:00:00 69 /min [facility] Body temperature 2020-02-17 13:00:00 35.78 Terese [facility] Respiratory rate 2020-02-17 13:00:00 18 /min [facility] Oxygen saturation in 2020-02-17 13:00:00 100 /min [facility] Arterial blood by Medical Ce nter Pulse oximetry Body height 2020-02-10 11:43:00 162.6 cm [facility] Body weight Measured 2020-02-10 11:43:00 56.2 kg [facility] BMI 2020-02-10 11:43:00 21.27 kg/m2 [facility] Procedures Procedure Date / Time Performing Clinician Source Performed POCT-GLUCOSE METER 2020-02-17 12:55:00 Manuel Gimenez [facility] POCT-GLUCOSE METER 2020-02-17 07:48:00 AmmyManuel [facility] POCT-GLUCOSE METER 2020-02-16 21:14:00 Manuel Gimenez [facility] POCT-GLUCOSE METER 2020-02-16 16:28:00 Manuel Gimenez [facility] POCT-GLUCOSE METER 2020-02-16 11:35:00 AmmyManuel [facility] POCT-GLUCOSE METER 2020-02-16 07:34:00 Manuel Gimenez [facility] POCT-GLUCOSE METER 2020-02-15 21:19:00 Ammy, Manuel Bianchi [facility] POCT-GLUCOSE METER 2020-02-15 15:51:00 AmmyManuel [facility] POCT-GLUCOSE METER 2020-02-15 12:16:00 Manuel Gimenez [facility] POCT-GLUCOSE METER 2020-02-15 08:01:00 Ammy, Manuel Bianchi [facility] CBC W/PLT COUNT & AUTO 2020-02-15 04:24:00 AmmyManuel [facility] POCT-GLUCOSE METER 2020-02-14 21:16:00 Manuel Gimenez [facility] POCT-GLUCOSE METER 2020-02-14 15:56:00 Manuel Gimenez [facility] POCT-GLUCOSE METER 2020-02-14 13:01:00 AmmyManuel [facility] POCT-GLUCOSE METER 2020-02-14 08:07:00 Manuel Gimenez [facility] CBC W/PLT COUNT & AUTO 2020-02-14 05:43:00 Manuel Gimenez [facility] POCT-GLUCOSE METER 2020-02-13 20:59:00 Manuel Gimenez [facility] POCT-GLUCOSE METER 2020-02-13 15:43:00 Manuel Gimenez [facility] POCT-GLUCOSE METER 2020-02-13 11:26:00 AmmyManuel [facility] POCT-GLUCOSE METER 2020-02-13 07:50:00 AmmyManuel [facility] CBC W/PLT COUNT & AUTO 2020-02-13 04:24:00 AmmyManuel [facility] POCT-GLUCOSE METER 2020-02-12 21:03:00 Ammy, Manuel Bianchi [facility] POCT-GLUCOSE METER 2020-02-12 16:22:00 Ammy, Manuel Bianchi [facility] POCT-GLUCOSE METER 2020-02-12 11:38:00 Manuel Gimenez [facility] COMPREHENSIVE METABOLIC 2020-02-12 08:32:00 AmmyManuel [facility] PROTHROMBIN TIME/INR 2020-02-12 08:32:00 Manuel Gimenez I [facility] POCT-GLUCOSE METER 2020-02-12 07:51:00 AmmyManuel [facility] POCT-GLUCOSE METER 2020-02-11 22:19:00 AmmyManuel [facility] POCT-GLUCOSE METER 2020-02-11 15:22:00 AmmyManuel [facility] POCT-GLUCOSE METER 2020-02-11 11:48:00 [facility] Manuelshon Bianchi [facility] BASIC METABOLIC PANEL (7) 2020-02-11 11:16:00 Tawanna Burgos [facility] CBC (HEMOGRAM ONLY) 2020-02-11 11:16:00 Aubrey [facility] POCT-GLUCOSE METER 2020-02-11 07:23:00 AmmyManuel [facility] BASIC METABOLIC PANEL (7) 2020-02-11 07:20:00 AmmyManuel [facility] CBC W/PLT COUNT & AUTO 2020-02-11 07:20:00 [facility] Manuel [facility] IRON, TIBC, % SAT. 2020-02-10 23:13:00 AmmyManuel [facility] (WITHOUT FERRITIN) [facility] r VITAMIN B12 AND FOLATE 2020-02-10 23:13:00 AmmyManuel [facility] POCT-GLUCOSE METER 2020-02-10 22:31:00 AmmyManule [facility] POCT-GLUCOSE METER 2020-02-10 18:02:00 [facility] DEBRIDEMENT/I&D,WOUND 2020-02-10 16:06:[address] [facility] SKIN GRAFT,SPLIT 2020-02-10 16:06:00 Gabriel Stovall [facility] L ukes - THICKNESS-LOWER EXTREMITY Medica l [place] SKIN GRAFT,SPLIT 2020-02-10 16:06:00 FrancoGiovanny escalera [facility] Luke s - THICKNESS-LOWER EXTREMITY Lionel Medica [facility] POCT-GLUCOSE METER 2020-02-10 11:22:00 Gabriel Stovall [facility] SARS-COV2/RT-PCR ([facility] & 2020-02-06 11:36:00 Mouna Thayer I [facility] - REF LABS) [facility] HEMOGLOBIN 2020-02-06 11:36:00 Bill Fong [facility] BASIC METABOLIC PANEL (7) 2020-02-06 11:36:00 Bill Fong nd [facility] POCT-GLUCOSE METER 2019-12-31 11:37:00 [facility] POCT-GLUCOSE METER 2019-12-31 06:57:00 [facility] POCT-GLUCOSE METER 2019-12-31 00:01:00 [facility] POCT-GLUCOSE METER 2019-12-30 16:14:00 [facility] POCT-GLUCOSE METER 2019-12-30 12:20:00 [facility] POCT-GLUCOSE METER 2019-12-30 06:31:00 [facility] POCT-GLUCOSE METER 2019-12-29 20:16:00 [facility] POCT-GLUCOSE METER 2019-12-29 16:41:00 [facility] VENOUS DOPPLER ARM, LEFT 2019-12-29 16:30:00 Ambar Howard [facility] POCT-GLUCOSE METER 2019-12-29 11:06:00 [facility] POCT-GLUCOSE METER 2019-12-29 06:16:00 [facility] CBC (HEMOGRAM ONLY) 2019-12-29 04:53:00 [facility]OLIC PANEL (7) 2019-12-29 [facility]:52[facility] 2019-12-28 20:47:00 [facility] PO[facility]SE METER 2019-12-28 16:22:00 [facility] POCT-[facility]COSE METER 2019-12-28 11:56:00 [facility] PO[facility]COSE METER 2019-12-28 06:16:00 [facility] 2019-12-27 20:24:00 [facility] PO[facility]UCOSE METER 2019-12-27 16:08:00 [facility] PO[facility]-GLUCOSE METER 2019-12-27 11:12:00 [facility] POCT-GLUCOSE METER 2019-12-27 06:03:00 [facility] PO[facility]UCOSE METER 2019-12-26 20:12:00 [facility] POCT-GLUCOSE METER 2019-12-26 16:02:00 [facility] COMPREHENSIVE METABOLIC 2019-12-26 12:00:00 Ambar Howard [facility] CBC W/PLT COUNT & AUTO 2019-12-26 12:00:00 Ambar Howard [facility] POCT-GLUCOSE METER 2019-12-26 11:33:00 [facility] PO[facility]UCOSE METER 2019-12-26 06:35:00 [facility] POCT-GLUCOSE METER 2019-12-25 20:43:00 [facility] POCT-GLUCOSE METER 2019-12-25 16:42:00 Zelda, [facility] POCT-GLUCOSE METER 2019-12-25 11:08:00 Dada Alejo [facility] POCT-GLUCOSE METER 2019-12-25 06:32:00 [facility] PO[facility]UCOSE METER 2019-12-24 20:44:00 [facility] POCT-GLUCOSE METER 2019-12-24 16:24:00 ZeldaRes[facility] POCT-GLUCOSE METER 2019-12-24 11:12:00 ZeldaRes[facility] POCT-GLUCOSE METER 2019-12-24 06:20:00 ZeldaResnick [facility] POCT-GLUCOSE METER 2019-12-23 20:33:00 ZeldaRes[facility] POCT-GLUCOSE METER 2019-12-23 16:48:00 ZeldaRes[facility] POCT-GLUCOSE METER 2019-12-23 11:31:00 ZeldaRes[facility] POCT-GLUCOSE METER 2019-12-23 05:58:00 [facility] PO[facility]SE METER 2019-12-22 20:29:00 [facility] POCT-GLUCOSE METER 2019-12-22 16:10:00 [facility] POCT-GLUCOSE METER 2019-12-22 11:33:00 [facility] RHYTHM [facility] - SCAN 2019-12-22 10:01:02 Provider, [facility] CARDIAC CATH REPORT - 2019-12-22 10:00:44 Provider, [facility] POCT-GLUCOSE METER 2019-12-22 06:23:00 [facility] BASIC METABOLIC PANEL (7) 2019-12-22 04:37:00 [facility] CBC (HEMOGRAM ONLY) 2019-12-22 04:37:00 Pat Ndiaye [facility] POCT-GLUCOSE METER 2019-12-21 20:41:00 Dada Alejo [facility] POCT-GLUCOSE METER 2019-12-21 15:41:00 Dada Alejo [facility] POCT-GLUCOSE METER 2019-12-21 11:31:00 Dada Alejo [facility] POCT-GLUCOSE METER 2019-12-21 06:18:00 Dada Alejo [facility] POCT-GLUCOSE METER 2019-12-20 20:20:00 Dada Alejo [facility] POCT-GLUCOSE METER 2019-12-20 16:27:00 Dada Alejo [facility] POCT-GLUCOSE METER 2019-12-20 12:27:00 Dada Alejo [facility] POCT-GLUCOSE METER 2019-12-20 06:24:00 Dada Alejo [facility] POCT-GLUCOSE METER 2019-12-19 20:57:00 Dada Alejo [facility] POCT-GLUCOSE METER 2019-12-19 16:05:00 Dada Alejo [facility] POCT-GLUCOSE METER 2019-12-19 12:07:00 Dada Alejo [facility] POCT-GLUCOSE METER 2019-12-19 06:18:00 Zelda, Pat [facility] COMPREHENSIVE METABOLIC 2019-12-19 05:22:00 Pat Ndiaye [facility] MAGNESIUM 2019-12-19 05:22:00 [facility] W/PLT COUNT & AUTO 2019-12-19 05:22:00 Pat Ndiaye [facility] POCT-GLUCOSE METER 2019-12-18 20:52:00 Zelda, [facility] POCT-GLUCOSE METER 2019-12-18 16:49:00 Dada Alejo [facility] POCT-GLUCOSE METER 2019-12-18 11:46:00 Grover, [facility] POCT-GLUCOSE METER 2019-12-18 07:28:00 Grover, [facility] BASIC METABOLIC PANEL (7) 2019-12-18 05:36:00 Nikko [facility] CBC (HEMOGRAM ONLY) 2019-12-18 05:36:00 Ying [facility] MAGNESIUM 2019-12-18 05:36:00 [facility] POCT-GLUCOSE METER 2019-12-17 21:07:00 Grover, [facility] POCT-GLUCOSE METER 2019-12-17 17:48:[address] [facility] POCT-GLUCOSE METER 2019-12-17 11:38:[address] [facility] POCT-GLUCOSE METER 2019-12-17 07:27:[address] [facility] BASIC METABOLIC PANEL (7) 2019-12-17 05:13:00 [facility] CBC (HEMOGRAM ONLY) 2019-12-17 05:13:[address] [facility] MAGNESIUM 2019-12-17 05:13:00 Nikko [facility] POCT-GLUCOSE METER 2019-12-16 20:51:[address] [facility] [place] POCT-GLUCOSE METER 2019-12-16 16:34:[address] [facility] [place] XR CHEST 1 VIEW 2019-12-16 14:48:00 Reilly [facility] PORTABLE/BEDSIDE Medical Center POCT-GLUCOSE METER 2019-12-16 11:47:[address] [facility] [place] POCT-GLUCOSE METER 2019-12-16 06:50:[address] [facility] [place] BASIC METABOLIC PANEL (7) 2019-12-16 05:57:00 Ying El [facility] CBC (HEMOGRAM ONLY) 2019-12-16 05:57:00 Ying El [facility] MAGNESIUM 2019-12-16 05:57:00 [facility] 2019-12-15 21:15:[address] [facility] [place] POCT-GLUCOSE METER 2019-12-15 16:44:[address] [facility] [place] POCT-GLUCOSE METER 2019-12-15 11:45:[address] [facility] [place] POCT-GLUCOSE METER 2019-12-15 06:58:00 Chelsey [facility] BASIC METABOLIC PANEL (7) 2019-12-15 04:46:00 Ying El [facility] CBC (HEMOGRAM ONLY) 2019-12-15 04:46:00 [facility]-12-15 04:46:00 Ying El [facility] POCT-GLUCOSE METER 2019-12-14 21:15:00 Chelsey [facility] POCT-GLUCOSE METER 2019-12-14 17:18:00 Chelsey [facility] POCT-GLUCOSE METER 2019-12-14 12:05:00 Chelsey [facility] POCT-GLUCOSE METER 2019-12-14 07:51:00 Chelsey [facility] BASIC METABOLIC PANEL (7) 2019-12-14 04:29:00 Ying El [facility] CBC (HEMOGRAM ONLY) 2019-12-14 04:29:00 Ying El [facility] MAGNESIUM 2019-12-14 04:29:00 [facility] POCT-[facility]SE [facility]ER 2019-12-13 21:42:00 Chelsey [facility] POCT-GLUCOSE METER 2019-12-13 16:53:00 Chelsey [facility] POCT-GLUCOSE METER 2019-12-13 11:15:00 Chelsey [facility] POCT-GLUCOSE METER 2019-12-13 07:21:00 Chelsey [facility] BASIC METABOLIC PANEL (7) 2019-12-13 04:54:00 [facility] CBC (HEMOGRAM ONLY) 2019-12-13 04:54:00 Ying El [facility] MAGNESIUM 2019-12-13 04:54:00 Nikko [facility] POCT-GLUCOSE METER 2019-12-12 21:10:00 Chelsey [facility] POCT-GLUCOSE METER 2019-12-12 16:50:00 Chelsey [facility] POCT-GLUCOSE METER 2019-12-12 12:44:00 Chelsey [facility] AFB CULTURE + SMEAR 2019-12-12 12:11:18 Gabriel Stovall [facility] ([facility] ANAEROBIC CULTURE 2019-12-12 12:11:18 Gabriel Stovall [facility] FUNGUS CULTURE + SMEAR 2019-12-12 12:11:18 Gabriel Stovall [facility] SURGICALLY OBTAINED 2019-12-12 12:11:18 Gabriel Stovall [facility] - CULTURE + GRAM STAIN Medical [address] SPIN/CONCENTRATION CHARGE 2019-12-12 12:11:00 Gabriel Stovall [facility] DEBRIDEMENT/I&D,WOUND 2019-12-12 11:00:[address] [facility] SKIN GRAFT,SKIN 2019-12-12 11:00:00 Gabriel Stovall [facility] POCT-GLUCOSE METER 2019-12-12 07:54:00 Clayton Barbosa [facility] BASIC METABOLIC PANEL (7) 2019-12-12 05:19:00 Ying El [facility] CBC (HEMOGRAM ONLY) 2019-12-12 05:19:00 Ying El [facility] MAGNESIUM 2019-12-12 05:19:00 [facility] POCT-[facility]SE METER 2019-12-11 21:01:00 Suzanne Jenkins [facility] POCT-GLUCOSE METER 2019-12-11 16:41:00 Suzanne Jenkins [facility] POCT-GLUCOSE METER 2019-12-11 11:31:00 Suzanne Jenkins [facility] POCT-GLUCOSE METER 2019-12-11 07:24:00 Suzanne Jenkins [facility] BASIC METABOLIC PANEL (7) 2019-12-11 04:59:00 Ying El [facility] CBC (HEMOGRAM ONLY) 2019-12-11 04:59:00 Ying El [facility] MAGNESIUM 2019-12-11 04:59:00 [facility] POCT-[facility]SE METER 2019-12-10 21:23:00 Suzanne Jenkins [facility] POCT-GLUCOSE METER 2019-12-10 16:37:00 Suzanne Jenkins [facility] POCT-GLUCOSE METER 2019-12-10 11:03:00 Suzanne Jenkins [facility] POCT-GLUCOSE METER 2019-12-10 07:33:00 Suzanne Jenkins [facility] BASIC METABOLIC PANEL (7) 2019-12-10 05:50:00 Ying El [facility] CBC (HEMOGRAM ONLY) 2019-12-10 05:50:00 Ying El [facility] MAGNESIUM 2019-12-10 05:50:00 Ying El [facility] POCT-GLUCOSE METER 2019-12-09 21:14:00 GregorySuzanne felix [facility] POCT-GLUCOSE METER 2019-12-09 17:03:00 Suzanne Jenkins [facility] POCT-GLUCOSE METER 2019-12-09 11:47:00 GregorySuzanne felix [facility] POCT-GLUCOSE METER 2019-12-09 06:52:00 Suzanne Jenkins [facility] BASIC METABOLIC PANEL (7) 2019-12-09 05:41:00 Ying El [facility] CBC (HEMOGRAM ONLY) 2019-12-09 05:41:00 Ying El [facility] MAGNESIUM 2019-12-09 05:41:00 [facility] PO[facility]SE [facility] 2019-12-08 22:10:00 GregorySuzanne felix [facility] POCT-GLUCOSE METER 2019-12-08 16:32:00 Suzanne Jenkins [facility] POCT-GLUCOSE METER 2019-12-08 11:53:00 GregorySuzanne felix [facility] POCT-GLUCOSE METER 2019-12-08 07:57:00 GregorySuzanne felix [facility] BASIC METABOLIC PANEL (7) 2019-12-08 05:49:00 Ying El [facility] CBC (HEMOGRAM ONLY) 2019-12-08 05:49:00 Ying El [facility] MAGNESIUM 2019-12-08 05:49:00 Ying El [facility] POCT-GLUCOSE METER 2019-12-07 21:46:00 Suzanne Jenkins [facility] POCT-GLUCOSE METER 2019-12-07 17:10:00 Suzanne Jenkins [facility] BASIC METABOLIC PANEL (7) 2019-12-07 04:58:00 Ying El [facility] CBC (HEMOGRAM ONLY) 2019-12-07 04:58:00 Ying El [facility] MAGNESIUM 2019-12-07 04:58:00 [facility] PO[facility]SE [facility] 2019-12-06 21:02:00 Suzanne Jenkins [facility] POCT-GLUCOSE METER 2019-12-06 16:37:00 Suzanne Jenkins [facility] POCT-GLUCOSE METER 2019-12-06 12:06:00 Suzanne Jenkins [facility] POCT-GLUCOSE METER 2019-12-06 07:00:00 Suzanne Jenkins [facility] BASIC METABOLIC PANEL (7) 2019-12-06 04:37:00 Ying El [facility] CBC (HEMOGRAM ONLY) 2019-12-06 04:37[facility]00 [facility] 2019-12-06 04:37:00 [facility] POCT-GLUCOSE METER 2019-12-05 21:05:00 Suzanne Jenkins [facility] POCT-GLUCOSE METER 2019-12-05 16:36:00 Suzanne Jenkins [facility] XR FOOT RIGHT 3 VIEW 2019-12-05 15:32:00 Gabriel Stovall [facility] RHYTHM STRIP - SCAN 2019-12-05 14:14:10 Errol Zepeda [facility] AFB CULTURE + SMEAR 2019-12-05 13:05:00 Gabriel Stovall [facility] (NON-SPUTUM) [facility] ANAEROBIC CULTURE 2019-12-05 13:05:00 Gabriel Stovall [facility] FUNGUS CULTURE + SMEAR 2019-12-05 13:05:00 Gabriel Stovall [facility] SURGICALLY OBTAINED 2019-12-05 13:05:00 Gabriel Stovall [facility] - CULTURE + GRAM STAIN Medical [facility] ter SPIN/CONCENTRATION CHARGE 2019-12-05 13:05:00 Gabriel Stovall [facility] TISSUE EXAM 2019-12-05 13:01:00 Gabriel Stovall [facility] POCT-GLUCOSE METER 2019-12-05 12:57:00 Suzanne Jenkins [facility] AMPUTATION,FOOT 2019-12-05 11:20:00 Gabriel Stovall [facility] DEBRIDEMENT/I&D,WOUND 2019-12-05 11:20:[address] [facility] ECG 12-LEAD 2019-12-05 09:28:13 Unknown, Hl7 Doctor [facility] POCT-GLUCOSE METER 2019-12-05 08:03:00 Suzanne Jenkins [facility] BASIC METABOLIC PANEL (7) 2019-12-05 05:40:00 Ying El [facility] CBC (HEMOGRAM ONLY) 2019-12-05 05:40:00 Ying El [facility] MAGNESIUM 2019-12-05 05:40:00 Ying El [facility] POCT-GLUCOSE METER 2019-12-04 21:06:00 Suzanne Jenkins [facility] POCT-GLUCOSE METER 2019-12-04 16:08:00 Suzanne Jenkins [facility] POCT-GLUCOSE METER 2019-12-04 11:40:00 Suzanne Jenkins [facility] POCT-GLUCOSE METER 2019-12-04 07:58:00 Suzanne Jenkins [facility] BASIC METABOLIC PANEL (7) 2019-12-04 06:30:00 Ying El [facility] CBC (HEMOGRAM ONLY) 2019-12-04 06:30:00 Ying El [facility] MAGNESIUM 2019-12-04 06:30:00 iYng El [facility] APTT 2019-12-04 06:30:00 Suzanne Jenkins [facility] PLATELET AGGREGATION: 2019-12-04 06:30:00 Mariah Figueroa [facility] DRUG EFFECT [facility] POCT-GLUCOSE METER 2019-12-03 21:12:00 Suzanne Jenkins [facility] BLOOD CULTURE 2019-12-03 18:44:00 Ying El [facility] TRANSFUSION SERVICE 2019-12-03 18:00:38 Errol Zepeda [facility] REPORT - SCAN [facility] POCT-GLUCOSE METER 2019-12-03 16:50:00 Suzanne Jenkins [facility] POCT-ACT 2019-12-03 14:35:00 Suzanne Jenkins [facility] POCT-ACT 2019-12-03 13:53:00 Suzanne Jenkins [facility] PERIPHERAL ANGIOS / 2019-12-03 12:33:00 Giovanny Franco [facility] - AORTOGRAM [facility] POCT-GLUCOSE METER 2019-12-03 11:09:00 Suzanne Jenkins [facility] POCT-GLUCOSE METER 2019-12-03 08:14:00 Suzanne Jenkins [facility] BASIC METABOLIC PANEL (7) 2019-12-03 06:11:00 Ying El [facility] CBC (HEMOGRAM ONLY) 2019-12-03 06:11:00 Ying El [facility] MAGNESIUM 2019-12-03 06:11:00 Ying El [facility] APTT 2019-12-03 06:11:00 Suzanne Jenkins [facility] APTT 2019-12-02 23:35:00 Suzanne Jenkins [facility] POCT-GLUCOSE METER 2019-12-02 21:10:00 Suzanne Jenkins [facility] VANCOMYCIN LEVEL, TROUGH 2019-12-02 19:09:00 Ying El [facility] POCT-GLUCOSE METER 2019-12-02 16:46:00 Suzanne Jenkins [facility] APTT 2019-12-02 16:41:00 Suzanne Jenkins [facility] POCT-GLUCOSE METER 2019-12-02 12:20:00 Suzanne Jenkins [facility] XR FOOT RIGHT 3 VIEW 2019-12-02 12:00:00 Gabriel Stovall [facility] POCT-GLUCOSE METER 2019-12-02 09:12:00 Suzanne Jenkins [facility] TISSUE EXAM 2019-12-02 08:41:00 Gabriel Stovall [facility] SURGICALLY OBTAINED 2019-12-02 08:38:26 Gabriel Stovall [facility] - CULTURE + GRAM STAIN Medical [facility] ANAEROBIC CULTURE 2019-12-02 08:38:26 Gabriel Stovall [facility] AFB CULTURE + SMEAR 2019-12-02 08:38:26 Gabriel Stovall [facility] - (NON-SPUTUM) [facility] FUNGUS CULTURE + SMEAR 2019-12-02 08:38:26 Gabriel Stovall [facility] AMPUTATION,TOE 2019-12-02 07:30:00 Gabriel Stovall [facility] DEBRIDEMENT/I&D,WOUND 2019-12-02 07:30:[address] [facility] POCT-GLUCOSE METER 2019-12-02 05:34:00 Suzanne Jenkins [facility] ABORH, MANUAL 2019-12-02 01:36:00 Unique Michaud [facility] APTT 2019-12-02 01:16:00 Suzanne Jenkins [facility] BASIC METABOLIC PANEL (7) 2019-12-02 01:16:00 Ying El [facility] CBC (HEMOGRAM ONLY) 2019-12-02 01:16:00 Ying El [facility] MAGNESIUM 2019-12-02 01:16:00 Ying El [facility] HEMOGLOBIN A1C 2019-12-02 01:16:00 [facility] TYPE AND SCREEN, 2019-12-02 01:16:00 Louis Ca [facility] POCT-GLUCOSE METER 2019-12-01 21:17:00 Suzanne Jenkins [facility] APTT 2019-12-01 19:36:00 Suzanne Jnekins [facility] POCT-GLUCOSE METER 2019-12-01 17:14:00 Suzanne Jenkins [facility] POCT-GLUCOSE METER 2019-12-01 12:12:00 Suzanne Jenkins [facility] SARS-COV2/RT-PCR ([facility] & 2019-12-01 12:10:00 Mariah Figueroa [facility] - REF LABS) Medical Center APTT 2019-12-01 12:10:00 Dereje Mercedes [facility] XR FOOT RIGHT 3 VIEW 2019-12-01 10:59:00 Gabriel Stovall [facility] ARTERIAL (TOSHIA'S W/ 2019-12-01 09:45:00 Suzanne Jenkins [facility] - DOPPLER) ONLY Medical Center ARTERIAL DOPPLER LEG, 2019-12-01 09:20:00 Suzanne Jenkins [facility] BLOOD CULTURE 2019-12-01 04:58:00 [facility] BLOOD CULTURE 2019-12-01 04:50:00 [facility] APTT 2019-12-01 04:50:00 [facility], Dereje Lucretia [facility] COMPREHENSIVE METABOLIC 2019-12-01 04:50:00 [facility] PROTHROMBIN TIME/INR 2019-12-01 04:50:00 [facility] Lucretia [facility] C-REACTIVE PROTEIN 2019-12-01 04:50:00 [facility] Lucretia [facility] L ukes [facility] CBC W/PLT COUNT & AUTO 2019-12-01 04:50:00 [facility] Lucretia [facility] Plan of Care Planned Activity Planned Date Details Comments Source Future Scheduled 2020-03-[address] [facility] Test 00:[facility]00 measurement Medical Center (procedure) [code = 90218830] Future Scheduled 2020-02-[address] [facility] - Test 00:00:00 (#1) [code = Medical Center INFLUENZA VACCINE (#1)] Future Scheduled 2018-08-[address] [facility] - Test 00:00:00 WELLNESS (YEAR 2 or Medical Center FIRST YEAR if no IPPE) [code = MEDICARE ANNUAL WELLNESS (YEAR 2 or FIRST YEAR if no IPPE)] Future Scheduled [address] DIABETIC EYE EXAM [facility] - Test 00:00:00 [code = DIABETIC EYE Medical Center EXAM] Future Scheduled [address] [facility] - Test 00:00:00 examination Medical Center (regime/therapy) [code = 509306205] Future Scheduled 1956 Urine screening for [facility] - Test 00:00:00 protein (procedure) Medical Center [code = 853367897] Future Scheduled [address] [facility] Test 00:00:00 [facility] breast (procedure) [code = 167221054] Future Scheduled [address] [facility] - Test 00:00:00 [facility] colon (procedure) [code = 103821978] Encounters Start End Encounter Admission Attending Care Care Encounter Source Date/Time Date/Time Type Type Clinicians Facility Department ID 2020-03-15 2020-03-15 Office HUANG Stovall [id number] 15:50:40 16:41:06 Visit Gabriel Everett AMBULATOR [id number] Y 0.2.7.2.686 [id number] 2020-02-26 2020-02-26 Office HUANG Stovall [id number] 14:43:47 15:34:04 Visit Gabriel Everett AMBULATOR [id number] Y 0.2.7.2.686 [id number] 2020-01-28 2020-01-28 Office HUANG Stovall [id number] 10:21:38 10:36:38 Visit Gabriel Everett AMBULATOR 350.1.13.21 Y 0.2.7.2.686 [id number] 2020-01-21 2020-01-21 Office Jason Cortez Jeri [id number] 11:23:24 12:51:12 Visit AMBULATOR 350.1.13.21 Y 0.2.7.2.686 [id number] 2019-12-15 2019-12-15 Orders Doctor BILL [id number] 00:00:00 00:00:00 Only Unassigned, PATTY 350.1.13.10 [place] [facility] 4.2.7.2.686 [id number] 2019-11-21 2019-11-21 Telemed[facility] [id number] 08:57:41 09:37:41 ne Visit Vanesa Wiggins 350.1.13.10 Sabina 4.2.7.2.686 Feliz [id number] [address] 2019-10-30 2019-10-30 Telephone [place], [facility] 1.2.840.114 [id number] 00:00:00 00:00:00 Vanesa Wiggins 350.1.13.10 [place] 4.2.7.2.686 [id number] [address] Results Test Description Test Time Test Comments Results Result Comments Source POC-Glucose meter 2020-02-17 13:05:00 Test Item Value Reference Range Interpretation Comme nts POC-Glucose Meter (test code = 200 mg/dL 70-110 H : TESTED AT [facility] [address] [facility] 1538) [facility], 770 30: Screen Repairer Crusher/Techni herson ID = [id number] for CAMILA CHU Deana Lab Interpretation (test code = Abnormal 11066-7) [facility] [id number] 13:05:00 Test Item Value Reference Range Interpretation Comments POC-GLUCOSE METER 200 mg/dL 70-110 H : TESTED A T [facility] [address] (BEAKER) (test code = [facility] Braulio [facility], 153) [address]: Screen Repairer Crusher/Techni herson ID = [id number] for ARISTEO QUEEN POCT-GLUCOSE [id number] 07:59:00 Test Item Value Reference Range Interpretation Comments POC-GLUCOSE METER 191 mg/dL 70-110 H : TESTED A T [facility] [address] (BEAKER) (test code = [facility], 153) [address]: Screen Repairer Crusher/Techni herson ID = [id number] for ARISTEO QUEEN POCT-GLUCOSE [id number] 21:25:00 Test Item Value Reference Range Interpretation Comments POC-GLUCOSE METER 287 mg/dL 70-110 H : TESTED A T [facility] [address] (BEAKER) (test code = [facility], 153) 28500: Screen Repairer Crusher/Techni herson ID = [id number] for ANNE FUENTES POCT-GLUCOSE [id number] 16:39:00 Test Item Value Reference Range Interpretation Comments POC-GLUCOSE METER 232 mg/dL 70-110 H : TESTED A T [facility] 67[address] (BEAKER) (test code = [facility], [facility]) [address]17: Screen Repairer Crusher/Techni herson ID = [id number] for ARISTEO QUEEN POCT-GLUCOSE [id number] 11:46:00 Test Item Value Reference Range Interpretation Comments POC-GLUCOSE METER 197 mg/dL 70-110 H : TESTED A T [facility] [address] (BEAKER) (test code = [facility], 153) 60039: Screen Repairer Crusher/Techni herson ID = [id number] for ARISTEO QUEEN POCT-GLUCOSE [id number] 07:45:00 Test Item Value Reference Range Interpretation Comments POC-GLUCOSE METER 119 mg/dL 70-110 H : TESTED A T [facility] [address] (BEAKER) (test code = [facility], 153) 60362: Screen Repairer Crusher/Techni herson ID = [id number] for ARISTEO QUEEN POCT-GLUCOSE [id number] 21:30:00 Test Item Value Reference Range Interpretation Comments POC-GLUCOSE METER 165 mg/dL 70-110 H : TESTED A T [facility] 67[address] (BEAKER) (test code = [facility], 153) 22426: Screen Repairer Crusher/Techni herson ID = [id number] for POLLO JACKSON POCT-GLUCOSE [id number] 16:02:00 Test Item Value Reference Range Interpretation Comments POC-GLUCOSE METER 162 mg/dL 70-110 H : TESTED A T [facility] [address] (BEAKER) (test code = [facility], 153) 12974: Screen Repairer Crusher/Techni herson ID = [id number] for Me Tarah joiner POCT-GLUCOSE [id number] 12:27:00 Test Item Value Reference Range Interpretation Comments POC-GLUCOSE METER 190 mg/dL 70-110 H : TESTED A T [facility] 67[address] (BEAKER) (test code = [facility], 153) 82357: Screen Repairer Crusher/Techni herson ID = [id number] for Me Tarah joiner POCT-GLUCOSE [id number] 08:12:00 Test Item Value Reference Range Interpretation Comments POC-GLUCOSE METER 160 mg/dL 70-110 H : TESTED A T [facility] 67[address] (BEAKER) (test code = [facility], 153) 69448: Screen Repairer Crusher/Techni herson ID = [id number] for Me ndeMamta flahertyTarah CBC with platelet count + automated [id number] 04:55:00 Test Item Value Reference Range Interpretation Comments WBC (test code = 6690-2) 11.1 3.5- 10.5 K/L H RBC (test code = 789-8) 4.12 3.93- 5.22 M/L MCHC (test code = 786-4) 31.8 32.2- 35.5 GM/DL L Hematocrit (test code = 4544-3) 36.2 % 34.1-44.9 MCV (test code = 787-2) 87.9 fL 79.4-94.8 MCH (test code = 785-6) 27.9 pg 25.6-32.2 RDW (test code = 788-0) 14.2 % 11.7-14.4 Platelets (test code = 777-3) 298 150- 450 K/CU MM MPV (test code = 50092-9) 9.2 fL 9.4-12.3 L nRBC (test code = 413) 0 0- 0 /100 WBC % Neutros (test code = 429) 51 % % Lymphs (test code = 430) 38 % % Monos (test code = 431) 7 % % Eos (test code = 432) 4 % % Baso (test code = 437) 0 % # Neutros (test code = 670) 5.63 1.56- 6.13 K/L # Lymphs (test code = 414) 4.22 1.18- 3.74 K/L H # Monos (test code = 415) 0.76 0.24- 0.36 K/L H # Eos (test code = 416) 0.39 0.04- 0.36 K/L H # Baso (test code = 417) 0.03 0.01- 0.08 K/L Immature Granulocytes-Relative 0 % 0-1 (test code = 2801) Lab Interpretation (test code = Abnormal 82695-4) [facility] W/PLT COUNT & AUTO [id number] 04:55:00 Test Item Value Reference Range Interpretation Comments WHITE BLOOD CELL COUNT (BEAKER) 11.1 K/ L 3.5-10.5 H (test code = 775) RED BLOOD CELL COUNT (BEAKER) 4.12 M/ L 3.93-5.22 (test code = 761) HEMOGLOBIN (BEAKER) (test code = 11.5 GM/DL 11.2-15.7 410) HEMATOCRIT (BEAKER) (test code = 36.2 % 34.1-44.9 411) MEAN CORPUSCULAR VOLUME (BEAKER) 87.9 fL 79.4-94.8 (test code = 753) MEAN CORPUSCULAR HEMOGLOBIN 27.9 pg 25.6-32.2 (BEAKER) (test code = 751) MEAN CORPUSCULAR HEMOGLOBIN CONC 31.8 GM/DL 32.2-35.5 L (BEAKER) (test code = 752) RED CELL DISTRIBUTION WIDTH 14.2 % 11.7-14.4 (BEAKER) (test code = 412) PLATELET COUNT (BEAKER) (test 298 K/CU MM 150-450 code = 756) MEAN PLATELET VOLUME (BEAKER) 9.2 fL 9.4-12.3 L (test code = 754) NUCLEATED RED BLOOD CELLS 0 /100 WBC 0-0 (BEAKER) (test code = 413) NEUTROPHILS RELATIVE PERCENT 51 % (BEAKER) (test code = 429) LYMPHOCYTES RELATIVE PERCENT 38 % (BEAKER) (test code = 430) MONOCYTES RELATIVE PERCENT 7 % (BEAKER) (test code = 431) EOSINOPHILS RELATIVE PERCENT 4 % (BEAKER) (test code = 432) BASOPHILS RELATIVE PERCENT 0 % (BEAKER) (test code = 437) NEUTROPHILS ABSOLUTE COUNT 5.63 K/ L 1.56-6.13 (BEAKER) (test code = 670) LYMPHOCYTES ABSOLUTE COUNT 4.22 K/ L 1.18-3.74 H (BEAKER) (test code = 414) MONOCYTES ABSOLUTE COUNT (BEAKER) 0.76 K/ L 0.24-0.36 H (test code = 415) EOSINOPHILS ABSOLUTE COUNT 0.39 K/ L 0.04-0.36 H (BEAKER) (test code = 416) BASOPHILS ABSOLUTE COUNT (BEAKER) 0.03 K/ L 0.01-0.08 (test code = 417) IMMATURE GRANULOCYTES-RELATIVE 0 % 0-1 PERCENT (BEAKER) (test code = 2801) POCT-GLUCOSE [id number] 21:28:00 Test Item Value Reference Range Interpretation Comments POC-GLUCOSE METER 217 mg/dL 70-110 H : TESTED Bo T [facility] 6720 (BEAKER) (test code = [place], 1538) [address]: Screen Repairer Crusher/Techni herson ID = [id number] for AN ANNE MCNAMARA POCT-GLUCOSE [id number] 16:08:00 Test Item Value Reference Range Interpretation Comments POC-GLUCOSE METER 140 mg/dL 70-110 H : TESTED A T [facility] 6720 (BEAKER) (test code = [facility], 1538) [address]: Screen Repairer Crusher/Techni herson ID = [id number] for Tarah Schwab POCT-GLUCOSE [id number] 13:12:00 Test Item Value Reference Range Interpretation Comments POC-GLUCOSE METER 218 mg/dL 70-110 H : TESTED A T [facility] 6720 (BEAKER) (test code = [facility], 1538) 65566: Screen Repairer Crusher/Techni herson ID = [id number] for Tarah Schwab POCT-GLUCOSE [id number] 08:19:00 Test Item Value Reference Range Interpretation Comments POC-GLUCOSE METER 246 mg/dL 70-110 H : TESTED A T [facility] 6720 (BEAKER) (test code = [facility], 1538) 64785: Screen Repairer Crusher/Techni herson ID = [id number] for Tarah Schwab CBC W/PLT COUNT & AUTO [id number] 06:06:00 Test Item Value Reference Range Interpretation Comments WHITE BLOOD CELL COUNT (BEAKER) 9.9 K/ L 3.5-10.5 (test code = 775) RED BLOOD CELL COUNT (BEAKER) 4.20 M/ L 3.93-5.22 (test code = 761) HEMOGLOBIN (BEAKER) (test code = 11.6 GM/DL 11.2-15.7 410) HEMATOCRIT (BEAKER) (test code = 36.8 % 34.1-44.9 411) MEAN CORPUSCULAR VOLUME (BEAKER) 87.6 fL 79.4-94.8 (test code = 753) MEAN CORPUSCULAR HEMOGLOBIN 27.6 pg 25.6-32.2 (BEAKER) (test code = 751) MEAN CORPUSCULAR HEMOGLOBIN CONC 31.5 GM/DL 32.2-35.5 L (BEAKER) (test code = 752) RED CELL DISTRIBUTION WIDTH 14.4 % 11.7-14.4 (BEAKER) (test code = 412) PLATELET COUNT (BEAKER) (test 295 K/CU MM 150-450 code = 756) MEAN PLATELET VOLUME (BEAKER) 9.3 fL 9.4-12.3 L (test code = 754) NUCLEATED RED BLOOD CELLS 0 /100 WBC 0-0 (BEAKER) (test code = 413) NEUTROPHILS RELATIVE PERCENT 55 % (BEAKER) (test code = 429) LYMPHOCYTES RELATIVE PERCENT 34 % (BEAKER) (test code = 430) MONOCYTES RELATIVE PERCENT 7 % (BEAKER) (test code = 431) EOSINOPHILS RELATIVE PERCENT 4 % (BEAKER) (test code = 432) BASOPHILS RELATIVE PERCENT 0 % (BEAKER) (test code = 437) NEUTROPHILS ABSOLUTE COUNT 5.46 K/ L 1.56-6.13 (BEAKER) (test code = 670) LYMPHOCYTES ABSOLUTE COUNT 3.36 K/ L 1.18-3.74 (BEAKER) (test code = 414) MONOCYTES ABSOLUTE COUNT (BEAKER) 0.68 K/ L 0.24-0.36 H (test code = 415) EOSINOPHILS ABSOLUTE COUNT 0.36 K/ L 0.04-0.36 (BEAKER) (test code = 416) BASOPHILS ABSOLUTE COUNT (BEAKER) 0.02 K/ L 0.01-0.08 (test code = 417) IMMATURE GRANULOCYTES-RELATIVE 0 % 0-1 PERCENT (BEAKER) (test code = 2801) POCT-GLUCOSE [id number] 21:12:00 Test Item Value Reference Range Interpretation Comments POC-GLUCOSE METER 186 mg/dL 70-110 H : TESTED A T [facility] 6720 (BEAKER) (test code = [facility], 153) 45618: Screen Repairer Crusher/Techni herson ID = [id number] for NILDA LLAMAS POCT-GLUCOSE [id number] 15:54:00 Test Item Value Reference Range Interpretation Comments POC-GLUCOSE METER 185 mg/dL 70-110 H : TESTED A T [facility] 6720 (BEAKER) (test code = [facility], 153) 48387: Screen Repairer Crusher/Techni herson ID = [id number] for GONZÁLEZ JC POCT-GLUCOSE [id number] 11:38:00 Test Item Value Reference Range Interpretation Comments POC-GLUCOSE METER 214 mg/dL 70-110 H : TESTED A T [facility] 6720 (BEAKER) (test code = [facility], 1538) 87722: Screen Repairer Crusher/Techni herson ID = [id number] for GONZÁLEZ JC POCT-GLUCOSE [id number] 08:01:00 Test Item Value Reference Range Interpretation Comments POC-GLUCOSE METER 148 mg/dL 70-110 H : TESTED A T [facility] 6720 (BEAKER) (test code = [facility], 1538) 13156: Screen Repairer Crusher/Techni herson ID = [id number] for GONZÁLEZ JC CBC W/PLT COUNT & AUTO [id number] 04:50:00 Test Item Value Reference Range Interpretation Comments WHITE BLOOD CELL COUNT (BEAKER) 9.0 K/ L 3.5-10.5 (test code = 775) RED BLOOD CELL COUNT (BEAKER) 4.01 M/ L 3.93-5.22 (test code = 761) HEMOGLOBIN (BEAKER) (test code = 11.2 GM/DL 11.2-15.7 410) HEMATOCRIT (BEAKER) (test code = 34.6 % 34.1-44.9 411) MEAN CORPUSCULAR VOLUME (BEAKER) 86.3 fL 79.4-94.8 (test code = 753) MEAN CORPUSCULAR HEMOGLOBIN 27.9 pg 25.6-32.2 (BEAKER) (test code = 751) MEAN CORPUSCULAR HEMOGLOBIN CONC 32.4 GM/DL 32.2-35.5 (BEAKER) (test code = 752) RED CELL DISTRIBUTION WIDTH 14.4 % 11.7-14.4 (BEAKER) (test code = 412) PLATELET COUNT (BEAKER) (test 290 K/CU MM 150-450 code = 756) MEAN PLATELET VOLUME (BEAKER) 9.3 fL 9.4-12.3 L (test code = 754) NUCLEATED RED BLOOD CELLS 0 /100 WBC 0-0 (BEAKER) (test code = 413) NEUTROPHILS RELATIVE PERCENT 52 % (BEAKER) (test code = 429) LYMPHOCYTES RELATIVE PERCENT 37 % (BEAKER) (test code = 430) MONOCYTES RELATIVE PERCENT 7 % (BEAKER) (test code = 431) EOSINOPHILS RELATIVE PERCENT 4 % (BEAKER) (test code = 432) BASOPHILS RELATIVE PERCENT 0 % (BEAKER) (test code = 437) NEUTROPHILS ABSOLUTE COUNT 4.65 K/ L 1.56-6.13 (BEAKER) (test code = 670) LYMPHOCYTES ABSOLUTE COUNT 3.36 K/ L 1.18-3.74 (BEAKER) (test code = 414) MONOCYTES ABSOLUTE COUNT (BEAKER) 0.60 K/ L 0.24-0.36 H (test code = 415) EOSINOPHILS ABSOLUTE COUNT 0.36 K/ L 0.04-0.36 (BEAKER) (test code = 416) BASOPHILS ABSOLUTE COUNT (BEAKER) 0.03 K/ L 0.01-0.08 (test code = 417) IMMATURE GRANULOCYTES-RELATIVE 0 % 0-1 PERCENT (BEAKER) (test code = 2801) POCT-GLUCOSE [id number] 21:14:00 Test Item Value Reference Range Interpretation Comments POC-GLUCOSE METER 192 mg/dL 70-110 H : TESTED A T [facility] 6720 (BEAKER) (test code = [facility], [facility]8) 49953: Screen Repairer Crusher/Techni herson ID = [id number] for CAIT VELA POCT-GLUCOSE [id number] 16:33:00 Test Item Value Reference Range Interpretation Comments POC-GLUCOSE METER 141 mg/dL 70-110 H : TESTED A T [facility] 6720 (BEAKER) (test code = [facility], 1538) 41063: Screen Repairer Crusher/Techni herson ID = [id number] for ARISTEO QUEEN POCT-GLUCOSE [id number] 11:49:00 Test Item Value Reference Range Interpretation Comments POC-GLUCOSE METER 134 mg/dL 70-110 H : TESTED A T [facility] 6720 (BEAKER) (test code = [facility], 1538) 33050: Screen Repairer Crusher/Techni herson ID = [id number] for ARISTEO QUEEN Prothrombin time/[id number] 09:36:00 Test Item Value Reference Range Interpretation Comments Protime (test code = 14.1 11.9- 14.2 5902-2) seconds INR (test code = 1.12 <=5.90 6301-6) BASIA (test code = BASIA) Effective 11/13/2018: PT Reference Range ChangeNew: 11.9-14.2 Previous: 11.7-14.7 RECOMMENDED COUMADIN/WARFARIN INR THERAPY RANGESSTANDARD DOSE: 2.0-3.0 Includes: PROPHYLAXIS for venous thrombosis, systemic embolization; TREATMENT for venous thrombosis and/or pulmonary embolus.HIGH RISK: Target INR is 2.5-3.5 for patients wiht mechanical heart valves. Lab Interpretation Normal (test code = 79426-5) [facility] CenterPROTHROMBIN TIME/[id number] 09:36:00 Test Item Value Reference Range Interpretation Comments PROTIME (BEAKER) (test code = 14.1 seconds 11.9-14.2 759) INR (BEAKER) (test code = 370) 1.12 <=5.90 Effective 11/13/2018: PT Reference Range ChangeNew: 11.9-14.2 Previous: 11.7- 14.7RECOMMENDED COUMADIN/WARFARIN INR THERAPY RANGESSTANDARD DOSE: 2.0-3.0 Includes: PROPHYLAXIS for venous thrombosis, systemic embolization; TREATMENT for venous thrombosis and/or pulmonary embolus.HIGH RISK: Target INR is2.5-3.5 for patients wiht mechanical heart valves.Comprehensive metabolic panel 2020-02-12 09:32:00 Test Item Value Reference Range Interpretation Comments Protein, Total (test 6.5 6.0- 8.3 gm/dL code = 2885-2) Albumin (test code = 3.3 g/dL 3.5-5 L 68759-2) Alkaline Phosphatase 91 U/L 40-150 (test code = 6768-6) Total Bilirubin (test 0.8 mg/dL 0.2-1.2 code = 1975-2) Sodium (test code = 136 meq/L 419-805 8717-2) Potassium (test code = 4.1 meq/L 3.5-5.1 2823-3) Chloride (test code = 105 meq/L 98-107 2075-0) CO2 (test code = 24 meq/L -2027-9) BUN (test code = 12 mg/dL 7-21 3094-0) Creatinine (test code 0.73 mg/dL 0.57-1.25 = 2160-0) Glucose (test code = 125 mg/dL 70-105 H 2345-7) Calcium (test code = 8.3 mg/dL 8.4-10.2 L 68456-3) AST (test code = 24 U/L 5-34 1920-8) ALT (test code = 22 U/L 6-55 1742-6) EGFR (test code = 78 mL/min/1.73 [place] [address]-4) NOT ACCURATE CREATININE CLEARANCE IN PREDICTING GLOMERULAR FILTRATION RATE . ESTIMATED GFR I S NOT APPLICABLE FOR DIALYSIS PATIENTS. BASIA (test code = BASIA) Screen Repairer Crusher ID - NTP Lab Interpretation Abnormal (test code = 52211-7) [facility] CenterCOMPREHENSIVE METABOLIC [id number] 09:32:00 Test Item Value Reference Range Interpretation Comments TOTAL PROTEIN 6.5 gm/dL 6.0-8.3 (BEAKER) (test code = 770) ALBUMIN (BEAKER) 3.3 g/dL 3.5-5.0 L (test code = 1145) ALKALINE PHOSPHATASE 91 U/L 40-150 (BEAKER) (test code = 346) BILIRUBIN TOTAL 0.8 mg/dL 0.2-1.2 (BEAKER) (test code = 377) SODIUM (BEAKER) (test 136 meq/L 136-145 code = 381) POTASSIUM (BEAKER) 4.1 meq/L 3.5-5.1 (test code = 379) CHLORIDE (BEAKER) 105 meq/L 98-107 (test code = 382) CO2 (BEAKER) (test 24 meq/L 22-29 code = 355) BLOOD UREA NITROGEN 12 mg/dL 7-21 (BEAKER) (test code = 354) CREATININE (BEAKER) 0.73 mg/dL 0.57-1.25 (test code = 358) GLUCOSE RANDOM 125 mg/dL 70-105 H (BEAKER) (test code = 652) CALCIUM (BEAKER) 8.3 mg/dL 8.4-10.2 L (test code = 697) AST (SGOT) (BEAKER) 24 U/L 5-34 (test code = 353) ALT (SGPT) (BEAKER) 22 U/L 6-55 (test code = 347) EGFR (BEAKER) (test 78 mL/min/1.73 ESTIMA MARGO GFR IS code = 1092) sq m NOT ACCURATE CREATININE CLEARANCE IN PREDICTING GLOMERULAR FILTRATION RATE . ESTIMATED GFR I S NOT APPLICABLE FOR DIALYSIS PATIEN TS. Screen Repairer Crusher ID - NTPPOCT-GLUCOSE [id number] 08:02:00 Test Item Value Reference Range Interpretation Comments POC-GLUCOSE METER 122 mg/dL 70-110 H : TESTED A T [facility] 6720 (BEAKER) (test code = [facility], 1538) 44143: Screen Repairer Crusher/Techni herson ID = [id number] for ARISTEO QUEEN POCT-GLUCOSE [id number] 22:30:00 Test Item Value Reference Range Interpretation Comments POC-GLUCOSE METER 122 mg/dL 70-110 H : TESTED A T [facility] 6720 (BEAKER) (test code = [facility], 1538) 64704: Screen Repairer Crusher/Techni herson ID = [id number] for MARILU ODONNELL POCT-GLUCOSE [id number] 15:33:00 Test Item Value Reference Range Interpretation Comments POC-GLUCOSE METER 200 mg/dL 70-110 H : TESTED A T [facility] 6720 (BEAKER) (test code = [facility], 1538) 20200: Screen Repairer Crusher/Techni herson ID = [id number] for ARISTEO QUEEN Basic Metabolic [id number] 12:06:00 Test Item Value Reference Range Interpretation Comments Sodium (test code = 137 meq/L 126-294 9753-2) Potassium (test code = 3.9 meq/L 3.5-5.1 2823-3) Chloride (test code = 105 meq/L 98-107 2075-0) CO2 (test code = 25 meq/L 22-29 2028-9) BUN (test code = 10 mg/dL 7- 3094-0) Creatinine (test code 0.71 mg/dL 0.57-1.25 = 2160-0) Glucose (test code = 121 mg/dL 70-105 H 2345-7) Calcium (test code = 8.4 mg/dL 8.4-10.2 33175-2) EGFR (test code = 81 mL/min/1.[place] [address]-6) NOT ACCURATE CREATININE CLEARANCE IN PREDICTING GLOMERULAR FILTRATION RATE . ESTIMATED GFR I S NOT APPLICABLE FOR DIALYSIS PATIENTS. BASIA (test code = BASIA) Screen Repairer Crusher ID - JORGE ALBERTO Pulido Lab Interpretation Abnormal (test code = 44375-3) [facility] CenterBASI METABOLIC [id number] 12:06:00 Test Item Value Reference Range Interpretation Comments SODIUM (BEAKER) 137 meq/L 136-145 (test code = 381) POTASSIUM (BEAKER) 3.9 meq/L 3.5-5.1 (test code = 379) CHLORIDE (BEAKER) 105 meq/L 98-107 (test code = 382) CO2 (BEAKER) (test 25 meq/L 22-29 code = 355) BLOOD UREA NITROGEN 10 mg/dL 7-21 (BEAKER) (test code = 354) CREATININE (BEAKER) 0.71 mg/dL 0.57-1.25 (test code = 358) GLUCOSE RANDOM 121 mg/dL 70-105 H (BEAKER) (test code = 652) CALCIUM (BEAKER) 8.4 mg/dL 8.4-10.2 (test code = 697) EGFR (BEAKER) (test 81 mL/min/1.73 ESTIMA MARGO GFR IS code = 1092) sq m NOT ACCURATE CREATININE CLEARANCE IN PREDICTING GLOMERULAR FILTRATION RATE . ESTIMATED GFR I S NOT APPLICABLE FOR DIALYSIS PATIEN TS. Screen Repairer Crusher ID - JORGE ALBERTO CPOCT-GLUCOSE [id number] 11:59:00 Test Item Value Reference Range Interpretation Comments POC-GLUCOSE METER 129 mg/dL 70-110 H : [facility] ([facility] (test code = [facility], 1538) 01268: Screen Repairer Crusher/Techni herson ID = [id number] for ARISTEO QUEEN CBC (Hemogram only)2020-02-11 11:51:00 Test Item Value Reference Range Interpretation Comments WBC (test code = 6690-2) 6.2 3.5- 10.5 K/L RBC (test code = 789-8) 3.90 3.93- 5.22 M/L L MCHC (test code = 786-4) 32.4 32.2- 35.5 GM/DL L Hematocrit (test code = 4544-3) 34.3 % 34.1-44.9 MCV (test code = 787-2) 87.9 fL 79.4-94.8 MCH (test code = 785-6) 28.5 pg 25.6-32.2 RDW (test code = 788-0) 14.7 % 11.7-14.4 H Platelets (test code = 777-3) 262 150- 450 K/CU MM MPV (test code = 08776-5) 9.8 fL 9.4-12.3 nRBC (test code = 413) 0 0- 0 /100 WBC Lab Interpretation (test code = Abnormal 04234-2) [facility] (HEMOGRAM ONLY)2020-02-11 11:51:00 Test Item Value Reference Range Interpretation Comments WHITE BLOOD CELL COUNT (BEAKER) 6.2 K/ L 3.5-10.5 (test code = 775) RED BLOOD CELL COUNT (BEAKER) 3.90 M/ L 3.93-5.22 L (test code = 761) HEMOGLOBIN (BEAKER) (test code = 11.1 GM/DL 11.2-15.7 L 410) HEMATOCRIT (BEAKER) (test code = 34.3 % 34.1-44.9 411) MEAN CORPUSCULAR VOLUME (BEAKER) 87.9 fL 79.4-94.8 (test code = 753) MEAN CORPUSCULAR HEMOGLOBIN 28.5 pg 25.6-32.2 (BEAKER) (test code = 751) MEAN CORPUSCULAR HEMOGLOBIN CONC 32.4 GM/DL 32.2-35.5 (BEAKER) (test code = 752) RED CELL DISTRIBUTION WIDTH 14.7 % 11.7-14.4 H (BEAKER) (test code = 412) PLATELET COUNT (BEAKER) (test 262 K/CU MM 150-450 code = 756) MEAN PLATELET VOLUME (BEAKER) 9.8 fL 9.4-12.3 (test code = 754) NUCLEATED RED BLOOD CELLS 0 /100 WBC 0-0 (BEAKER) (test code = 413) POCT-GLUCOSE [id number] 11:26:00 Test Item Value Reference Range Interpretation Comments POC-GLUCOSE METER 138 mg/dL 70-110 H : TESTED A T [facility] 6720 (BEAKER) (test code = [facility] [place], 1538) 22481: Screen Repairer Crusher/Techni herson ID = [id number] for AN [facility] ANNE BASIC METABOLIC [id number] 08:02:00 Test Item Value Reference Range Interpretation Comments SODIUM (BEAKER) 139 meq/L 136-145 (test code = 381) POTASSIUM (BEAKER) 4.0 meq/L 3.5-5.1 (test code = 379) CHLORIDE (BEAKER) 105 meq/L 98-107 (test code = 382) CO2 (BEAKER) (test 28 meq/L 22-29 code = 355) BLOOD UREA NITROGEN 11 mg/dL 7-21 (BEAKER) (test code = 354) CREATININE (BEAKER) 0.73 mg/dL 0.57-1.25 (test code = 358) GLUCOSE RANDOM 100 mg/dL 70-105 (BEAKER) (test code = 652) CALCIUM (BEAKER) 8.4 mg/dL 8.4-10.2 (test code = 697) EGFR (BEAKER) (test 78 mL/min/1.73 ESTIMA MARGO GFR IS code = 1092) sq m NOT ACCURATE CREATININE CLEARANCE IN PREDICTING GLOMERULAR FILTRATION RATE . ESTIMATED GFR I S NOT APPLICABLE FOR DIALYSIS PATIEN TS. Screen Repairer Crusher ID - JUN CCBC W/PLT COUNT & AUTO [id number] 08:00:00 Test Item Value Reference Range Interpretation Comments WHITE BLOOD CELL COUNT (BEAKER) 6.3 K/ L 3.5-10.5 (test code = 775) RED BLOOD CELL COUNT (BEAKER) 4.00 M/ L 3.93-5.22 (test code = 761) HEMOGLOBIN (BEAKER) (test code = 11.1 GM/DL 11.2-15.7 L 410) HEMATOCRIT (BEAKER) (test code = 35.8 % 34.1-44.9 411) MEAN CORPUSCULAR VOLUME (BEAKER) 89.5 fL 79.4-94.8 (test code = 753) MEAN CORPUSCULAR HEMOGLOBIN 27.8 pg 25.6-32.2 (BEAKER) (test code = 751) MEAN CORPUSCULAR HEMOGLOBIN CONC 31.0 GM/DL 32.2-35.5 L (BEAKER) (test code = 752) RED CELL DISTRIBUTION WIDTH 14.6 % 11.7-14.4 H (BEAKER) (test code = 412) PLATELET COUNT (BEAKER) (test 261 K/CU MM 150-450 code = 756) MEAN PLATELET VOLUME (BEAKER) 9.7 fL 9.4-12.3 (test code = 754) NUCLEATED RED BLOOD CELLS 0 /100 WBC 0-0 (BEAKER) (test code = 413) NEUTROPHILS RELATIVE PERCENT 31 % (BEAKER) (test code = 429) LYMPHOCYTES RELATIVE PERCENT 58 % (BEAKER) (test code = 430) MONOCYTES RELATIVE PERCENT 5 % (BEAKER) (test code = 431) EOSINOPHILS RELATIVE PERCENT 5 % (BEAKER) (test code = 432) BASOPHILS RELATIVE PERCENT 0 % (BEAKER) (test code = 437) NEUTROPHILS ABSOLUTE COUNT 1.92 K/ L 1.56-6.13 (BEAKER) (test code = 670) LYMPHOCYTES ABSOLUTE COUNT 3.62 K/ L 1.18-3.74 (BEAKER) (test code = 414) MONOCYTES ABSOLUTE COUNT (BEAKER) 0.34 K/ L 0.24-0.36 (test code = 415) EOSINOPHILS ABSOLUTE COUNT 0.34 K/ L 0.04-0.36 (BEAKER) (test code = 416) BASOPHILS ABSOLUTE COUNT (BEAKER) 0.02 K/ L 0.01-0.08 (test code = 417) IMMATURE GRANULOCYTES-RELATIVE 0 % 0-1 PERCENT (BEAKER) (test code = 2801) POCT-GLUCOSE [id number] 07:57:00 Test Item Value Reference Range Interpretation Comments POC-GLUCOSE METER 100 mg/dL 70-110 : TESTED A T [facility] 6720 (BEAKER) (test code = [facility], 1538) 92030: Screen Repairer Crusher/Techni herson ID = [id number] for ARISTEO QUEEN Vitamin B12 and [id number] 04:11:00 Test Item Value Reference Range Interpretation Comments Vitamin B12 (test code = 521 pg/mL 748-670 4869-9) Folate (test code = 18.00 ng/mL >=7.00 2284-8) BASIA (test code = BASIA) Screen Repairer Crusher ID - EDASI Lab Interpretation (test Normal code = 60569-0) [facility] Center[facility]IT[facility] B12 AND [id number] 04:11:00 Test Item Value Reference Range Interpretation Comments VITAMIN B12 (BEAKER) (test code = 521 pg/mL 213-816 774) FOLATE (BEAKER) (test code = 362) 18.00 ng/mL >=7.00 Screen Repairer Crusher ID - EDNICHOLASIron, TIBC, % sat. (without ferritin)2020-02-10 23:57:00 Test Item Value Reference Range Interpretation Comments Iron (test code = 2498-4) 24.0 ug/dL 40-160 L TIBC (test code = 2500-7) 253 ug/dL 250-450 Iron % Saturation (test 9 % 20-55 L code = 2502-3) BASIA (test code = BASIA) Screen Repairer Crusher ID - FARHAT L Lab Interpretation (test Abnormal code = 52909-9) [facility] CenterIRON, TIBC, % SAT. (WITHOUT FERRITIN)2020-02-10 23:57:00 Test Item Value Reference Range Interpretation Comments IRON (BEAKER) (test code = 547) 24.0 ug/dL 40.0-160.0 L TOTAL IRON BINDING CAPACITY 253 ug/dL 250-450 (BEAKER) (test code = 769) IRON % SATURATION (2) (BEAKER) 9 % 20-55 L (test code = 2590) Screen Repairer Crusher ID - FARHAT LPOCT-GLUCOSE [id number] 18:15:00 Test Item Value Reference Range Interpretation Comments POC-GLUCOSE METER 143 mg/dL 70-110 H : TESTED A T [facility] 6720 (BEAKER) (test code = [facility], 1538) 55925: Screen Repairer Crusher/Techni herson ID = [id number] for DEMOND REYES POCT-GLUCOSE [id number] 11:36:00 Test Item Value Reference Range Interpretation Comments POC-GLUCOSE METER 181 mg/dL 70-110 H : TESTED A T [facility] 6720 (BEAKER) (test code = [facility], 1538) 81741: Screen Repairer Crusher/Techni herson ID = [id number] for JEANINE RIOJAS SARS-CoV2/RT-PCR ([facility])2020-02-07 12:36:00 Test Item Value Reference Range Interpretation Comments SARS-COV2/RT-PCR Negative Not Detected, (test code = Negative, See 62280-7) external report for linked test SARS-COV-2 [facility] PERFORMING LAB (test code = 24751-0) BASIA (test code = Negative result for this BASIA) test determines that SARS-CoV-2 RNA was not present in the specimen above the Limit of Detection (LOD). However, Negative results do not preclude SARS-CoV-2 infection and should not be used as the sole basis for treatment or patient management decisions. Negative results must be combined with clinical observations, patient history, and epidemiological information. A false negative result may occur if a specimen is improperly collected, transported or handled. A false negative result should be considered if patient's recent exposures or clinical presentation indicate that COVID-19 (SARS-CoV-2) is likely and diagnostic tests for other causes of illness are negative. Re-testing should be considered in cases of suspected [...] Food and Drug Administration (FDA) cleared or approved. This is a modified version of an approved [...] of the Act. Fact Sheet for Healthcare Providers:https://www.[employer]/sites/default/f jg/product/documents/F act_Sheet_HC_Providers_L ctu_GWDY-BeJ-7.pdf Fact Sheet for Healthcare Patients:https://www.[employer]/sites/default/fi les/product/documents/Fa ct_Sheet_Patients_Lyra_S ARS-CoV-2.pdf Performing Laboratory:[facility] [place] [address] [facility] ([facility])2020-02-07 12:36:00 Test Item Value Reference Range Interpretation Comments SARS-COV2/RT-PCR (test Negative Not Detected, Negative, code = 7092509) See external report for linked test SARS-COV-[address] [facility] (test code = 4163367) Negative result for this test determines that SARS-CoV-2 RNA was not present in the specimen above the Limit of Detection (LOD). However, Negative results do not preclude SARS-CoV-2 infection and should not be used as the sole basis for treatment or patient management decisions. Negative results mustbe combined with clinical observations, patient history, and epidemiological information. A false negative result may occur if a specimen is improperly collected, transported or handled. A false negative result should be considered if patient's recent exposures or clinical presentation indicate that COVID-19 (SARS-CoV-2) is likely and diagnostic tests for other causes of illness are negative. Re-testing should be considered in cases of suspected false negatives.The limit of detection for this assay is 800 copies/mL.This SARS CoV-2 test is a real-time RT-PCR test intended for the qualitative detection of nucleic acid from SARS-CoV-2 in a nasopharyngeal swab specimen collected from individuals susp ected of COVID-19 by their healthcare provider.This test has not been Food and Drug Administration (FDA) cleared or approved. This is a modified version of an approved [...] is revoked under Section 564(g) of the Act.Fact Sheet for Healthcare Providers:https://www.[employer]TVidel.com/sites/default/files/product/documents/Fact_Shee f_EK_Zgjmhvimy_Pjho_FKXZ-QfK-6.pdfFact Sheet for Healthcare Patients:https://www.[employer].TVidel.com/sites/default/files/product/ documents/Bvcp_Gniuf_Earkvqhb_Tcxq_IPXG-SuE-1.pdfPerforming Laboratory:[facility], [place] [id number] METABOLIC PANEL 2020-02-06 12:10:00 Test Item Value Reference Range Interpretation Comments SODIUM (BEAKER) 139 meq/L 136-145 (test code = 381) POTASSIUM (BEAKER) 4.3 meq/L 3.5-5.1 (test code = 379) CHLORIDE (BEAKER) 104 meq/L 98-107 (test code = 382) CO2 (BEAKER) (test 27 meq/L 22-29 code = 355) BLOOD UREA NITROGEN 17 mg/dL 7-21 (BEAKER) (test code = 354) CREATININE (BEAKER) 0.76 mg/dL 0.57-1.25 (test code = 358) GLUCOSE RANDOM 154 mg/dL 70-105 H (BEAKER) (test code = 652) CALCIUM (BEAKER) 9.2 mg/dL 8.4-10.2 (test code = 697) EGFR (BEAKER) (test 75 mL/min/1.73 ESTIMA MARGO GFR IS code = 1092) sq m NOT ACCURATE CREATININE CLEARANCE IN PREDICTING GLOMERULAR FILTRATION RATE . ESTIMATED GFR I S NOT APPLICABLE FOR DIALYSIS PATIEN TS. Screen Repairer Crusher ID - [id number] 11:50:00 Test Item Value Reference Range Interpretation Comments Hemoglobin (test code = 12.0 11.2- 15.7 GM/DL 786-4) BASIA (test code = BASIA) Screen Repairer Crusher ID - [id number] Lab Interpretation (test Normal code = 08727-4) [facility] Test Item Value Reference Range Interpretation Comments HEMOGLOBIN (BEAKER) (test code = 12.0 GM/DL 11.2-15.7 410) Screen Repairer Crusher ID - [id number] culture + smear (non-sputum)2020-01-26 09:25:00 Test Item Value Reference Range Interpretation Comments Result (test code = No acid-fast bacilli 6463-4) isolated in 42 days AFB Smear (test code = No acid fast bacilli 44144-1) [facility]-SPUTUM)2020-01-26 09:25:00 Test Item Value Reference Range Interpretation Comments CULTURE (BEAKER) (test No acid-fast bacilli code = 1095) isolated in 42 days AFB SMEAR (BEAKER) No acid fast bacilli (test code = 994) seen AFB CULTURE + SMEAR (NON-SPUTUM)2020-01-19 07:46:00 Test Item Value Reference Range Interpretation Comments CULTURE (BEAKER) (test No acid-fast bacilli code = 1095) isolated in 42 days AFB SMEAR (BEAKER) No acid fast bacilli (test code = 994) seen AFB CULTURE + SMEAR (NON-SPUTUM)2020-01-12 07:59:00 Test Item Value Reference Range Interpretation Comments CULTURE (BEAKER) (test No acid-fast bacilli code = 1095) isolated in 42 days AFB SMEAR (BEAKER) No acid fast bacilli (test code = 994) seen Fungus culture + [id number] 15:27:00 Test Item Value Reference Range Interpretation Comments Result (test code = No fungus isolated in 63-4) 28 days Fungus Smear (test <1+ budding yeast code = 1406) [facility] [id number] 15:27:00 Test Item Value Reference Range Interpretation Comments CULTURE (BEAKER) (test No fungus isolated in code = 1095) 28 days FUNGUS SMEAR (BEAKER) <1+ budding yeast (test code = 1406) FUNGUS CULTURE + [id number] 16:04:00 Test Item Value Reference Range Interpretation Comments CULTURE (BEAKER) (test No fungus isolated in code = 1095) 28 days FUNGUS SMEAR (BEAKER) No fungi seen (test code = 1406) FUNGUS CULTURE + [id number] 16:21:00 Test Item Value Reference Range Interpretation Comments CULTURE (BEAKER) (test No fungus isolated in code = 1095) 28 days FUNGUS SMEAR (BEAKER) No fungi seen (test code = 1406) POCT-GLUCOSE [id number] 11:49:00 Test Item Value Reference Range Interpretation Comments POC-GLUCOSE METER 94 mg/dL 70-110 : TESTED A T [facility] (BEAKER) (test code = CAMBRI DGE BLDG A, 1538) [place] [address] 0: Screen Repairer Crusher/Techni herson ID = [id number] for RACHELLE GRAY FRAN POCT-GLUCOSE [id number] 07:08:00 Test Item Value Reference Range Interpretation Comments POC-GLUCOSE METER 87 mg/dL 70-110 : TESTED A T [facility] (BEAKER) (test code = CAMBRI DGE BLDG A, 1538) [place] [address] 0: Screen Repairer Crusher/Techni herson ID = [id number] for POLLO CABALLERO POCT-GLUCOSE [id number] 00:12:00 Test Item Value Reference Range Interpretation Comments POC-GLUCOSE METER 111 mg/dL 70-110 H : TESTED A T [facility] (BEAKER) (test code CAMBRIDG E BLDG A, = 1538) [place] [address] 0: Screen Repairer Crusher/Techni herson ID = [id number] for POLLO CABALLERO POCT-GLUCOSE [id number] 16:26:00 Test Item Value Reference Range Interpretation Comments POC-GLUCOSE METER 146 mg/dL 70-110 H : TESTED A T [facility] (BEAKER) (test code CAMBRIDG E BLDG A, = 1538) [place] [address] 0: Screen Repairer Crusher/Techni herson ID = [id number] for CASEY RACHELLE POWELL PV, VENOUS DOPPLER ARM, [id number] 13:49:00Reason for exam:->LUE pain and nodule, r/o DVTAddendum BeginsREPORT STATUS:A Doppler ultrasound of the left upper extremity dated 12/29/2019 Comment: Color Doppler and spectral analysis of the left upper extremity were obtained. The left jugular vein, subclavian, axillary, brachial, basilic, and cephalic veins are patent without thrombus. Impression: No deep venous thrombosis in the left upper extremity. Signed: Deann Berg Verified Date/Time: 12/30/2019 13:49:05 Reading Location: [place] [id number] Body Reading RoomAddendum EndsFINAL REPORT Doppler ultrasound of the left lower extremity dated 12/29/2019 Comment: Color Doppler and spectral analysis of the left lower extremity were obtained. There was no deep venous obstruction in the distal external iliac, common femoral, profunda femoral, femoral, popliteal or posterior tibial veins. Compression was utilized and demonstrated normal aug mentation in the left lower extremity. There was no venous obstruction in the greater saphenous vein. Impression: No deep venous thrombosis in the left lower extremity. Signed: Deann Berg Verified Date/Time: 12/29/2019 18:22:22 Reading Location: [facility] C013W Consult Reading Room POCT-GLUCOSE [id number] 12:31:00 Test Item Value Reference Range Interpretation Comments POC-GLUCOSE METER 122 mg/dL 70-110 H : TESTED A T [facility] (BEAKER) (test code CAMBRIDG E BLDG A, = 1538) [place] [address] 0: Screen Repairer Crusher/Techni herson ID = [id number] for JAUN CAMARGO POCT-GLUCOSE [id number] 06:42:00 Test Item Value Reference Range Interpretation Comments POC-GLUCOSE METER 96 mg/dL 70-110 : TESTED A T [facility] (BEAKER) (test code = CAMBRI DGE BLDG A, 1538) [place] [address] 0: Screen Repairer Crusher/Techni herson ID = [id number] for RAMIRO PRESLEY POCT-GLUCOSE [id number] 20:26:00 Test Item Value Reference Range Interpretation Comments POC-GLUCOSE METER 164 mg/dL 70-110 H : TESTED A T [facility] (BEAKER) (test code CAMBRIDG E BLDG A, = 1538) [place] [address] 0: Screen Repairer Crusher/Techni herson ID = [id number] for NATHAN BLAND POLLO Venous doppler arm, [id number] 18:22:00Interface, External Ris In - 12/30/2019 1:51 PM CDTAddendum BeginsREPORT STATUS:A Doppler ultrasound of the left upper extremity dated 12/29/2019 Comment: Color Doppler and spectral analysis of the left upper extremity were obtained. The left jugular vein, subclavian, axillary, brachial, basilic, and cephalic veins are patent without thrombus. Impression: No deep venous thrombosis in the left upper extremity. Signed: Deann Berg MDReport Verified Date/Time: 12/30/2019 13:49:05 Reading Location: [address] Body Reading RoomAddendum EndsFINAL REPORT Doppler ultrasound of the left lower extremity dated 12/29/2019 Comment: Color Doppler and spectral analysis of the left lower extremity were obtained. There was no deep venous obstruction in the distal external iliac, common femoral, profunda femoral, femoral, popliteal or posterior tibial veins.Compression was utilized and demonstrated normal augmentation in the left lower extremity. There wasno venous obstruction in the greater saphenous vein. Impression: No deep venous thrombosis in the left lower extremity. Signed: Deann Berg MDReport Verified Date/Time: 12/29/2019 18:22:22 Reading Location: [facility] C013W [facility] [id number] 16:59:00 Test Item Value Reference Range Interpretation Comments POC-GLUCOSE METER 199 mg/dL 70-110 H : TESTED A T [facility] (BEAKER) (test code CAMBRIDG E BLDG A, = 1538) [place] [address] 0: Screen Repairer Crusher/Techni herson ID = [id number] for OMIW SHANNAN, SYRIETA POCT-GLUCOSE [id number] 11:17:00 Test Item Value Reference Range Interpretation Comments POC-GLUCOSE METER 113 mg/dL 70-110 H : TESTED A T [facility] (BEAKER) (test code CAMBRIDG E BLDG A, = 1538) [place] [address] 0: Screen Repairer Crusher/Techni herson ID = [id number] for OMIW SHANNAN, SYRIETA POCT-GLUCOSE [id number] 06:28:00 Test Item Value Reference Range Interpretation Comments POC-GLUCOSE METER 107 mg/dL 70-110 : TESTED A T [facility] (BEAKER) (test code CAMBRIDG E BLDG A, = 1538) [place] [address] 0: Screen Repairer Crusher/Techni herson ID = [id number] for BENNY ROSY BASIC METABOLIC [id number] 05:30:00 Test Item Value Reference Range Interpretation Comments SODIUM (BEAKER) 143 meq/L 136-145 (test code = 381) POTASSIUM (BEAKER) 3.8 meq/L 3.5-5.1 Specimen slightly (test code = 379) hemolyzed CHLORIDE (BEAKER) 109 meq/L 98-107 H (test code = 382) CO2 (BEAKER) (test 28 meq/L 22-29 code = 355) BLOOD UREA NITROGEN 8 mg/dL 7-21 (BEAKER) (test code = 354) CREATININE (BEAKER) 0.55 mg/dL 0.57-1.25 L Specimen slightly (test code = 358) hemolyzed GLUCOSE RANDOM 103 mg/dL 70-105 (BEAKER) (test code = 652) CALCIUM (BEAKER) 9.2 mg/dL 8.4-10.2 (test code = 697) EGFR (BEAKER) (test 108 mL/min/1.73 ESTIM ATED GFR IS code = 1092) sq m NOT ACCURATE CREATININE CLEARANCE IN PREDICTING GLOMERULAR FILTRATION RATE . ESTIMATED GFR I S NOT APPLICABLE FOR DIALYSIS PATIEN TS. CBC (HEMOGRAM ONLY)2019-12-29 05:20:00 Test Item Value Reference Range Interpretation Comments WHITE BLOOD CELL COUNT (BEAKER) 7.9 K/ L 3.5-10.5 (test code = 775) RED BLOOD CELL COUNT (BEAKER) 3.62 M/ L 3.93-5.22 L (test code = 761) HEMOGLOBIN (BEAKER) (test code = 10.1 GM/DL 11.2-15.7 L 410) HEMATOCRIT (BEAKER) (test code = 32.1 % 34.1-44.9 L 411) MEAN CORPUSCULAR VOLUME (BEAKER) 88.7 fL 79.4-94.8 (test code = 753) MEAN CORPUSCULAR HEMOGLOBIN 27.9 pg 25.6-32.2 (BEAKER) (test code = 751) MEAN CORPUSCULAR HEMOGLOBIN CONC 31.5 GM/DL 32.2-35.5 L (BEAKER) (test code = 752) RED CELL DISTRIBUTION WIDTH 16.7 % 11.7-14.4 H (BEAKER) (test code = 412) PLATELET COUNT (BEAKER) (test 321 K/CU MM 150-450 code = 756) MEAN PLATELET VOLUME (BEAKER) 9.2 fL 9.4-12.3 L (test code = 754) POCT-GLUCOSE [id number] 20:59:00 Test Item Value Reference Range Interpretation Comments POC-GLUCOSE METER 173 mg/dL 70-110 H : TESTED Bo T [facility] (BEAKER) (test code MADALYN Combs BLDG A, = 1538) [place] [address] 0: Screen Repairer Crusher/Techni herson ID = [id number] for BENNY NIKOLAS ROSY POCT-GLUCOSE [id number] 16:41:00 Test Item Value Reference Range Interpretation Comments POC-GLUCOSE METER 151 mg/dL 70-110 H : TESTED A T [facility] (BEAKER) (test code CAMBRIDG E BLDG A, = 1538) [place] [address] 0: Screen Repairer Crusher/Techni herson ID = [id number] for JOHN ERA, AVIVA POCT-GLUCOSE [id number] 12:07:00 Test Item Value Reference Range Interpretation Comments POC-GLUCOSE METER 130 mg/dL 70-110 H : TESTED A T [facility] (BEAKER) (test code CAMBRIDG E BLDG A, = 1538) [place] [address] 0: Screen Repairer Crusher/Techni herson ID = [id number] for JOHN ERA, AVIVA POCT-GLUCOSE [id number] 06:28:00 Test Item Value Reference Range Interpretation Comments POC-GLUCOSE METER 99 mg/dL 70-110 : TESTED A T [facility] (BEAKER) (test code = CAMB[place] DGE BLDG A, 1538) [place] [address] 0: Screen Repairer Crusher/Techni herson ID = [id number] for BENNY , ROSY POCT-GLUCOSE [id number] 20:35:00 Test Item Value Reference Range Interpretation Comments POC-GLUCOSE METER 230 mg/dL 70-110 H : TESTED A T [facility] (BEAKER) (test code CAM[place]G E BLDG A, = 1538) [place] [address] 0: Screen Repairer Crusher/Techni herson ID = [id number] for BENNY , ROSY POCT-GLUCOSE [id number] 16:19:00 Test Item Value Reference Range Interpretation Comments POC-GLUCOSE METER 184 mg/dL 70-110 H : TESTED A T [facility] (BEAKER) (test code CAMBR[place]G E BLDG A, = 1538) [place] [address] 0: Screen Repairer Crusher/Techni herson ID = [id number] for JOHN ERA, AVIVA POCT-GLUCOSE [id number] 11:24:00 Test Item Value Reference Range Interpretation Comments POC-GLUCOSE METER 120 mg/dL 70-110 H : TESTED A T [facility] (BEAKER) (test code CAMBRIDG E BLDG A, = 1538) [place] [address] 0: Screen Repairer Crusher/Techni herson ID = [id number] for JOHN ERA, AVIVA POCT-GLUCOSE [id number] 06:15:00 Test Item Value Reference Range Interpretation Comments POC-GLUCOSE METER 80 mg/dL 70-110 : TESTED A T [facility] (BEAKER) (test code = JOSETTERI DGE BLDG A, 1538) [place] [address] 0: Screen Repairer Crusher/Techni herson ID = [id number] for BC EDOUARD POCT-GLUCOSE [id number] 20:23:00 Test Item Value Reference Range Interpretation Comments POC-GLUCOSE METER 140 mg/dL 70-110 H : TESTED A T [facility] (BEAKER) (test code CAMBRIDG E BLDG A, = 1538) [place] [address] 0: Screen Repairer Crusher/Techni herson ID = [id number] for BC EDOUARD POCT-GLUCOSE [id number] 16:13:00 Test Item Value Reference Range Interpretation Comments POC-GLUCOSE METER 163 mg/dL 70-110 H : TESTED A T [facility] (BEAKER) (test code CAMBRIDG E BLDG A, = 1538) [place] [address] 0: Screen Repairer Crusher/Techni herson ID = [id number] for WALDEMAR BAL COMPREHENSIVE METABOLIC [id number] 12:38:00 Test Item Value Reference Range Interpretation Comments TOTAL PROTEIN 6.8 gm/dL 6.0-8.3 (BEAKER) (test code = 770) ALBUMIN (BEAKER) 3.8 g/dL 3.5-5.0 (test code = 1145) ALKALINE PHOSPHATASE 112 U/L 40-150 (BEAKER) (test code = 346) BILIRUBIN TOTAL 0.9 mg/dL 0.2-1.2 (BEAKER) (test code = 377) SODIUM (BEAKER) (test 139 meq/L 136-145 code = 381) POTASSIUM (BEAKER) 4.0 meq/L 3.5-5.1 (test code = 379) CHLORIDE (BEAKER) 107 meq/L 98-107 (test code = 382) CO2 (BEAKER) (test 25 meq/L 22-29 code = 355) BLOOD UREA NITROGEN 14 mg/dL 7-21 (BEAKER) (test code = 354) CREATININE (BEAKER) 0.64 mg/dL 0.57-1.25 (test code = 358) GLUCOSE RANDOM 118 mg/dL 70-105 H (BEAKER) (test code = 652) CALCIUM (BEAKER) 8.6 mg/dL 8.4-10.2 (test code = 697) AST (SGOT) (BEAKER) 38 U/L 5-34 H (test code = 353) ALT (SGPT) (BEAKER) 46 U/L 6-55 (test code = 347) EGFR (BEAKER) (test 91 mL/min/1.73 ESTIMA MARGO GFR IS code = 1092) sq m NOT ACCURATE CREATININE CLEARANCE IN PREDICTING GLOMERULAR FILTRATION RATE . ESTIMATED GFR I S NOT APPLICABLE FOR DIALYSIS PATIEN TS. CBC W/PLT COUNT & AUTO [id number] 12:19:00 Test Item Value Reference Range Interpretation Comments WHITE BLOOD CELL COUNT (BEAKER) 9.5 K/ L 3.5-10.5 (test code = 775) RED BLOOD CELL COUNT (BEAKER) 3.68 M/ L 3.93-5.22 L (test code = 761) HEMOGLOBIN (BEAKER) (test code = 10.1 GM/DL 11.2-15.7 L 410) HEMATOCRIT (BEAKER) (test code = 32.5 % 34.1-44.9 L 411) MEAN CORPUSCULAR VOLUME (BEAKER) 88.3 fL 79.4-94.8 (test code = 753) MEAN CORPUSCULAR HEMOGLOBIN 27.4 pg 25.6-32.2 (BEAKER) (test code = 751) MEAN CORPUSCULAR HEMOGLOBIN CONC 31.1 GM/DL 32.2-35.5 L (BEAKER) (test code = 752) RED CELL DISTRIBUTION WIDTH 16.0 % 11.7-14.4 H (BEAKER) (test code = 412) PLATELET COUNT (BEAKER) (test 382 K/CU MM 150-450 code = 756) MEAN PLATELET VOLUME (BEAKER) 9.2 fL 9.0-12.3 (test code = 754) NEUTROPHILS RELATIVE PERCENT 64 % (BEAKER) (test code = 429) LYMPHOCYTES RELATIVE PERCENT 28 % (BEAKER) (test code = 430) MONOCYTES RELATIVE PERCENT 5 % (BEAKER) (test code = 431) EOSINOPHILS RELATIVE PERCENT 2 % (BEAKER) (test code = 432) BASOPHILS RELATIVE PERCENT 0 % (BEAKER) (test code = 437) NEUTROPHILS ABSOLUTE COUNT 6.11 K/ L 1.56-6.13 (BEAKER) (test code = 670) LYMPHOCYTES ABSOLUTE COUNT 2.65 K/ L 1.18-3.74 (BEAKER) (test code = 414) MONOCYTES ABSOLUTE COUNT (BEAKER) 0.48 K/ L 0.24-0.36 H (test code = 415) EOSINOPHILS ABSOLUTE COUNT 0.22 K/ L 0.04-0.36 (BEAKER) (test code = 416) BASOPHILS ABSOLUTE COUNT (BEAKER) 0.03 K/ L 0.01-0.08 (test code = 417) IMMATURE GRANULOCYTES-RELATIVE 0 % 0-1 PERCENT (BEAKER) (test code = 2801) POCT-GLUCOSE [id number] 11:45:00 Test Item Value Reference Range Interpretation Comments POC-GLUCOSE METER 122 mg/dL 70-110 H : TESTED A T [facility] (BEAKER) (test code CAMBRIDG E BLDG A, = 1538) [place] [address] 0: Screen Repairer Crusher/Techni herson ID = [id number] for ARDEN WALDEMAR NAILS POCT-GLUCOSE [id number] 06:46:00 Test Item Value Reference Range Interpretation Comments POC-GLUCOSE METER 105 mg/dL 70-110 : TESTED A T [facility] (BEAKER) (test code CAMBRIDG E BLDG A, = 1538) [place] [address] 0: Screen Repairer Crusher/Techni herson ID = [id number] for NATHAN EDWINA, POLLO POCT-GLUCOSE [id number] 20:54:00 Test Item Value Reference Range Interpretation Comments POC-GLUCOSE METER 159 mg/dL 70-110 H : TESTED A T [facility] (BEAKER) (test code CAMBRIDG E BLDG A, = 1538) [place] [address] 0: Screen Repairer Crusher/Techni herson ID = [id number] for NATHAN BLAND POLLO POCT-GLUCOSE [id number] 17:04:00 Test Item Value Reference Range Interpretation Comments POC-GLUCOSE METER 133 mg/dL 70-110 H : TESTED A T [facility] (BEAKER) (test code CAMBRIDG E BLDG A, = 1538) [place] [address] 0: Screen Repairer Crusher/Techni herson ID = [id number] for OMIW SHANNAN, WANDAIETA POCT-GLUCOSE [id number] 11:21:00 Test Item Value Reference Range Interpretation Comments POC-GLUCOSE METER 124 mg/dL 70-110 H : TESTED A T [facility] (BEAKER) (test code CAMBRIDG E BLDG A, = 1538) [place] [address] 0: Screen Repairer Crusher/Techni herson ID = [id number] for OMIW SHANNAN, SYRIETA POCT-GLUCOSE [id number] 06:43:00 Test Item Value Reference Range Interpretation Comments POC-GLUCOSE METER 90 mg/dL 70-110 : TESTED A T [facility] (BEAKER) (test code = CAMBRI DGE BLDG A, 1538) [place] [address] 0: Screen Repairer Crusher/Techni herson ID = [id number] for POLLO CABALLERO POCT-GLUCOSE [id number] 20:55:00 Test Item Value Reference Range Interpretation Comments POC-GLUCOSE METER 169 mg/dL 70-110 H : TESTED A T [facility] (BEAKER) (test code CAMBRIDG E BLDG A, = 1538) [place] [address] 0: Screen Repairer Crusher/Techni herson ID = [id number] for POLLO CABALLERO POCT-GLUCOSE [id number] 16:35:00 Test Item Value Reference Range Interpretation Comments POC-GLUCOSE METER 164 mg/dL 70-110 H : TESTED A T [facility] (BEAKER) (test code CAMBRIDG E BLDG A, = 1538) [place] [address] 0: Screen Repairer Crusher/Techni herson ID = [id number] for WALDEMAR BAL POCT-GLUCOSE [id number] 11:25:00 Test Item Value Reference Range Interpretation Comments POC-GLUCOSE METER 174 mg/dL 70-110 H : TESTED A T [facility] (BEAKER) (test code CAMBRIDG E BLDG A, = 1538) [place] [address] 0: Screen Repairer Crusher/Techni herson ID = [id number] for WALDEMAR BAL POCT-GLUCOSE [id number] 06:32:00 Test Item Value Reference Range Interpretation Comments POC-GLUCOSE METER 108 mg/dL 70-110 : TESTED A T [facility] (BEAKER) (test code CAMBRIDG E BLDG A, = 1538) [place] [address] 0: Screen Repairer Crusher/Techni herson ID = [id number] for BENNY , ROSY POCT-GLUCOSE [id number] 20:44:00 Test Item Value Reference Range Interpretation Comments POC-GLUCOSE METER 194 mg/dL 70-110 H : TESTED A T [facility] (BEAKER) (test code CAMBRIDG E BLDG A, = 1538) [place] [address] 0: Screen Repairer Crusher/Techni herson ID = [id number] for BENNY , ROSY POCT-GLUCOSE [id number] 16:59:00 Test Item Value Reference Range Interpretation Comments POC-GLUCOSE METER 156 mg/dL 70-110 H : TESTED A T [facility] (BEAKER) (test code CAMBRIDG E BLDG A, = 1538) [place] [address] 0: Screen Repairer Crusher/Techni herson ID = [id number] for CASEY ANO, JUCEL FRAN POCT-GLUCOSE [id number] 11:42:00 Test Item Value Reference Range Interpretation Comments POC-GLUCOSE METER 181 mg/dL 70-110 H : TESTED A T [facility] (BEAKER) (test code CAMBRIDG E BLDG A, = 1538) [place] [address] 0: Screen Repairer Crusher/Techni herson ID = [id number] for CASEY ANO, JUCEL FRAN POCT-GLUCOSE [id number] 06:10:00 Test Item Value Reference Range Interpretation Comments POC-GLUCOSE METER 83 mg/dL 70-110 : TESTED A T [facility] (BEAKER) (test code = CAMBRI DGE BLDG A, 1538) [place] [address] 0: Screen Repairer Crusher/Techni herson ID = [id number] for BENNY , ROSY POCT-GLUCOSE [id number] 20:42:00 Test Item Value Reference Range Interpretation Comments POC-GLUCOSE METER 221 mg/dL 70-110 H : TESTED A T [facility] (BEAKER) (test code CAMBRIDG E BLDG A, = 1538) [place] [address] 0: Screen Repairer Crusher/Techni herson ID = [id number] for BENNY , ROSY Anaerobic [id number] 18:21:00 Test Item Value Reference Range Interpretation Comments Result (test code = No anaerobes isolated 6463-4) [facility] [id number] 18:21:00 Test Item Value Reference Range Interpretation Comments CULTURE (BEAKER) (test No anaerobes isolated code = 1095) POCT-GLUCOSE [id number] 16:23:00 Test Item Value Reference Range Interpretation Comments POC-GLUCOSE METER 193 mg/dL 70-110 H : TESTED A T [facility] (BEAKER) (test code CAMBRIDG E BLDG A, = 1538) [place] [address] 0: Screen Repairer Crusher/Techni herson ID = [id number] for JOHN ERAAVIVA POCT-GLUCOSE [id number] 11:54:00 Test Item Value Reference Range Interpretation Comments POC-GLUCOSE METER 117 mg/dL 70-110 H : TESTED A T [facility] (BEAKER) (test code CAMBRIDG E BLDG A, = 1538) [place] [address] 0: Screen Repairer Crusher/Techni herson ID = [id number] for JOHN ERA, AVIVA POCT-GLUCOSE [id number] 06:35:00 Test Item Value Reference Range Interpretation Comments POC-GLUCOSE METER 90 mg/dL 70-110 : TESTED A T [facility] (BEAKER) (test code = CAMBRI DGE BLDG A, 1538) [place] [address] 0: Screen Repairer Crusher/Techni herson ID = [id number] for NATHAN EDWINAPOLLO Soriano BASIC METABOLIC [id number] 05:02:00 Test Item Value Reference Range Interpretation Comments SODIUM (BEAKER) 143 meq/L 136-145 (test code = 381) POTASSIUM (BEAKER) 3.6 meq/L 3.5-5.1 Specimen slightly (test code = 379) hemolyzed CHLORIDE (BEAKER) 107 meq/L 98-107 (test code = 382) CO2 (BEAKER) (test 30 meq/L 22-29 H code = 355) BLOOD UREA NITROGEN 13 mg/dL 7-21 (BEAKER) (test code = 354) CREATININE (BEAKER) 0.55 mg/dL 0.57-1.25 L Specimen slightly (test code = 358) hemolyzed GLUCOSE RANDOM 85 mg/dL 70-105 (BEAKER) (test code = 652) CALCIUM (BEAKER) 8.4 mg/dL 8.4-10.2 (test code = 697) EGFR (BEAKER) (test 108 mL/min/1.73 ESTIM ATED GFR IS code = 1092) sq m NOT ACCURATE CREATININE CLEARANCE IN PREDICTING GLOMERULAR FILTRATION RATE . ESTIMATED GFR I S NOT APPLICABLE FOR DIALYSIS PATIEN TS. CBC (HEMOGRAM ONLY)2019-12-22 04:47:00 Test Item Value Reference Range Interpretation Comments WHITE BLOOD CELL COUNT (BEAKER) 6.6 K/ L 3.5-10.5 (test code = 775) RED BLOOD CELL COUNT (BEAKER) 3.30 M/ L 3.93-5.22 L (test code = 761) HEMOGLOBIN (BEAKER) (test code = 9.2 GM/DL 11.2-15.7 L 410) HEMATOCRIT (BEAKER) (test code = 28.8 % 34.1-44.9 L 411) MEAN CORPUSCULAR VOLUME (BEAKER) 87.3 fL 79.4-94.8 (test code = 753) MEAN CORPUSCULAR HEMOGLOBIN 27.9 pg 25.6-32.2 (BEAKER) (test code = 751) MEAN CORPUSCULAR HEMOGLOBIN CONC 31.9 GM/DL 32.2-35.5 L (BEAKER) (test code = 752) RED CELL DISTRIBUTION WIDTH 15.1 % 11.7-14.4 H (BEAKER) (test code = 412) PLATELET COUNT (BEAKER) (test 405 K/CU MM 150-450 code = 756) MEAN PLATELET VOLUME (BEAKER) 9.1 fL 9.0-12.3 (test code = 754) POCT-GLUCOSE [id number] 20:52:00 Test Item Value Reference Range Interpretation Comments POC-GLUCOSE METER 164 mg/dL 70-110 H : TESTED A T [facility] (BEAKER) (test code CAMBRIDG E BLDG A, = 1538) [place] [address] 0: Screen Repairer Crusher/Techni herson ID = [id number] for POLLO CABALLERO POCT-GLUCOSE [id number] 15:52:00 Test Item Value Reference Range Interpretation Comments POC-GLUCOSE METER 142 mg/dL 70-110 H : TESTED A T [facility] (BEAKER) (test code CAMBRIDG E BLDG A, = 1538) [place] [address] 0: Screen Repairer Crusher/Techni herson ID = [id number] for OMIW SHANNAN, SYRIETA POCT-GLUCOSE [id number] 11:54:00 Test Item Value Reference Range Interpretation Comments POC-GLUCOSE METER 153 mg/dL 70-110 H : TESTED A T [facility] (BEAKER) (test code CAMBRIDG E BLDG A, = 1538) [place] [address] 0: Screen Repairer Crusher/Techni herson ID = [id number] for OMIW SHANNAN, SYRIETA POCT-GLUCOSE [id number] 06:30:00 Test Item Value Reference Range Interpretation Comments POC-GLUCOSE METER 95 mg/dL 70-110 : TESTED A T [facility] 7200 (BEAKER) (test code = [place] DGE BLDG A, 1538) [place] [address] 0: Screen Repairer Crusher/Techni herson ID = [id number] for POLLO CABALLERO POCT-GLUCOSE [id number] 20:31:00 Test Item Value Reference Range Interpretation Comments POC-GLUCOSE METER 211 mg/dL 70-110 H : TESTED A T [facility] 7200 (BEAKER) (test code [place] E BLDG A, = 1538) [place] [address] 0: Screen Repairer Crusher/Techni herson ID = [id number] for POLLO CABALLERO POCT-GLUCOSE [id number] 16:40:00 Test Item Value Reference Range Interpretation Comments POC-GLUCOSE METER 184 mg/dL 70-110 H : TESTED A T [facility] 7200 (BEAKER) (test code [place] E BLDG A, = 1538) [place] [address] 0: Screen Repairer Crusher/Techni herson ID = [id number] for LEENA MALDONADO CHIOMA POCT-GLUCOSE [id number] 12:38:00 Test Item Value Reference Range Interpretation Comments POC-GLUCOSE METER 102 mg/dL 70-110 : TESTED A T [facility] 7200 (BEAKER) (test code [place] E BLDG A, = 1538) [place] [address] 0: Screen Repairer Crusher/Techni herson ID = [id number] for RUSSELL CADENA SIXTO POCT-GLUCOSE [id number] 06:36:00 Test Item Value Reference Range Interpretation Comments POC-GLUCOSE METER 107 mg/dL 70-110 : TESTED A T [facility] 7200 (BEAKER) (test code [place] E BLDG A, = 1538) [place] [address] 0: Screen Repairer Crusher/Techni herson ID = [id number] for POLLO CABALLERO POCT-GLUCOSE [id number] 21:08:00 Test Item Value Reference Range Interpretation Comments POC-GLUCOSE METER 189 mg/dL 70-110 H : TESTED A T [facility] 7200 (BEAKER) (test code [place] E BLDG A, = 1538) [place] [address] 0: Screen Repairer Crusher/Techni herson ID = [id number] for ANANT ARROYO POCT-GLUCOSE [id number] 16:19:00 Test Item Value Reference Range Interpretation Comments POC-GLUCOSE METER 194 mg/dL 70-110 H : TESTED A T [facility] 7200 (BEAKER) (test code [place] E BLDG A, = 1538) [place] [address] 0: Screen Repairer Crusher/Techni herson ID = [id number] for OMIW SHANNAN, SYRIETA POCT-GLUCOSE [id number] 12:19:00 Test Item Value Reference Range Interpretation Comments POC-GLUCOSE METER 136 mg/dL 70-110 H : TESTED A T [facility] 7200 (BEAKER) (test code [place] E BLDG A, = 1538) [place] [address] 0: Screen Repairer Crusher/Techni herson ID = [id number] for OMIW SHANNAN, SYRIETA POCT-GLUCOSE [id number] 06:29:00 Test Item Value Reference Range Interpretation Comments POC-GLUCOSE METER 74 mg/dL 70-110 : TESTED A T [facility] 7200 (BEAKER) (test code = CAM[place] DGE BLDG A, 1538) [place] [address] 0: Screen Repairer Crusher/Techni herson ID = [id number] for BC EDOUARD [id number] 05:45:00 Test Item Value Reference Range Interpretation Comments Magnesium (test code = 64703-9) 2.0 mg/dL 1.6-2.6 Lab Interpretation (test code = Normal 41277-4) [facility] [id number] 05:45:00 Test Item Value Reference Range Interpretation Comments TOTAL PROTEIN 6.0 gm/dL 6.0-8.3 (BEAKER) (test code = 770) ALBUMIN (BEAKER) 3.1 g/dL 3.5-5.0 L (test code = 1145) ALKALINE PHOSPHATASE 103 U/L 40-150 (BEAKER) (test code = 346) BILIRUBIN TOTAL 0.6 mg/dL 0.2-1.2 (BEAKER) (test code = 377) SODIUM (BEAKER) (test 139 meq/L 136-145 code = 381) POTASSIUM (BEAKER) 3.8 meq/L 3.5-5.1 (test code = 379) CHLORIDE (BEAKER) 104 meq/L 98-107 (test code = 382) CO2 (BEAKER) (test 30 meq/L 22-29 H code = 355) BLOOD UREA NITROGEN 10 mg/dL 7-21 (BEAKER) (test code = 354) CREATININE (BEAKER) 0.60 mg/dL 0.57-1.25 (test code = 358) GLUCOSE RANDOM 74 mg/dL 70-105 (BEAKER) (test code = 652) CALCIUM (BEAKER) 8.1 mg/dL 8.4-10.2 L (test code = 697) AST (SGOT) (BEAKER) 20 U/L 5-34 (test code = 353) ALT (SGPT) (BEAKER) 18 U/L 6-55 (test code = 347) EGFR (BEAKER) (test 98 mL/min/1.73 ESTIMA MARGO GFR IS code = 1092) sq m NOT ACCURATE CREATININE CLEARANCE IN PREDICTING GLOMERULAR FILTRATION RATE . ESTIMATED GFR I S NOT APPLICABLE FOR DIALYSIS PATIEN TS. [id number] 05:45:00 Test Item Value Reference Range Interpretation Comments MAGNESIUM (BEAKER) (test code = 2.0 mg/dL 1.6-2.6 627) CBC W/PLT COUNT & AUTO [id number] 05:28:00 Test Item Value Reference Range Interpretation Comments WHITE BLOOD CELL COUNT (BEAKER) 8.0 K/ L 3.5-10.5 (test code = 775) RED BLOOD CELL COUNT (BEAKER) 3.21 M/ L 3.93-5.22 L (test code = 761) HEMOGLOBIN (BEAKER) (test code = 8.7 GM/DL 11.2-15.7 L 410) HEMATOCRIT (BEAKER) (test code = 28.0 % 34.1-44.9 L 411) MEAN CORPUSCULAR VOLUME (BEAKER) 87.2 fL 79.4-94.8 (test code = 753) MEAN CORPUSCULAR HEMOGLOBIN 27.1 pg 25.6-32.2 (BEAKER) (test code = 751) MEAN CORPUSCULAR HEMOGLOBIN CONC 31.1 GM/DL 32.2-35.5 L (BEAKER) (test code = 752) RED CELL DISTRIBUTION WIDTH 14.7 % 11.7-14.4 H (BEAKER) (test code = 412) PLATELET COUNT (BEAKER) (test 431 K/CU MM 150-450 code = 756) MEAN PLATELET VOLUME (BEAKER) 8.9 fL 9.0-12.3 L (test code = 754) NEUTROPHILS RELATIVE PERCENT 45 % (BEAKER) (test code = 429) LYMPHOCYTES RELATIVE PERCENT 42 % (BEAKER) (test code = 430) MONOCYTES RELATIVE PERCENT 6 % (BEAKER) (test code = 431) EOSINOPHILS RELATIVE PERCENT 7 % (BEAKER) (test code = 432) BASOPHILS RELATIVE PERCENT 1 % (BEAKER) (test code = 437) NEUTROPHILS ABSOLUTE COUNT 3.59 K/ L 1.56-6.13 (BEAKER) (test code = 670) LYMPHOCYTES ABSOLUTE COUNT 3.31 K/ L 1.18-3.74 (BEAKER) (test code = 414) MONOCYTES ABSOLUTE COUNT (BEAKER) 0.47 K/ L 0.24-0.36 H (test code = 415) EOSINOPHILS ABSOLUTE COUNT 0.56 K/ L 0.04-0.36 H (BEAKER) (test code = 416) BASOPHILS ABSOLUTE COUNT (BEAKER) 0.04 K/ L 0.01-0.08 (test code = 417) IMMATURE GRANULOCYTES-RELATIVE 0 % 0-1 PERCENT (BEAKER) (test code = 2801) POCT-GLUCOSE [id number] 21:03:00 Test Item Value Reference Range Interpretation Comments POC-GLUCOSE METER 188 mg/dL 70-110 H : TESTED A T [facility] 7200 (BEAKER) (test code CAMBGILMAG E BLDG A, = 1538) [facility] 7703 0: Screen Repairer Crusher/Techni herson ID = [id number] for BC EDOUARD POCT-GLUCOSE [id number] 17:00:00 Test Item Value Reference Range Interpretation Comments POC-GLUCOSE METER 136 mg/dL 70-110 H : TESTED A T [facility] 7200 (BEAKER) (test code MADALYN Combs BLDG A, = 1538) [facility] 7703 0: Screen Repairer Crusher/Techni herson ID = [id number] for IJEOMA CACERES POCT-GLUCOSE [id number] 12:08:00 Test Item Value Reference Range Interpretation Comments POC-GLUCOSE METER 115 mg/dL 70-110 H : TESTED A T [facility] 6720 (BEAKER) (test code = RAKELNE R [facility], 1538) [address]: Screen Repairer Crusher/Techni herson ID = [id number] for MARIA C CHEW POCT-GLUCOSE [id number] 07:44:00 Test Item Value Reference Range Interpretation Comments POC-GLUCOSE METER 74 mg/dL 70-110 : TESTED A T [facility] 6720 (BEAKER) (test code = RAKELNE R [facility], 1538) [address]: Screen Repairer Crusher/Techni herson ID = [id number] for MARIA C LEWIS [id number] 07:37:00 Test Item Value Reference Range Interpretation Comments MAGNESIUM (BEAKER) (test code = 2.0 mg/dL 1.6-2.6 627) Screen Repairer Crusher ID - EMERSONBASIC METABOLIC [id number] 07:37:00 Test Item Value Reference Range Interpretation Comments SODIUM (BEAKER) 139 meq/L 136-145 (test code = 381) POTASSIUM (BEAKER) 3.6 meq/L 3.5-5.1 (test code = 379) CHLORIDE (BEAKER) 104 meq/L 98-107 (test code = 382) CO2 (BEAKER) (test 29 meq/L 22-29 code = 355) BLOOD UREA NITROGEN 12 mg/dL 7-21 (BEAKER) (test code = 354) CREATININE (BEAKER) 0.71 mg/dL 0.57-1.25 (test code = 358) GLUCOSE RANDOM 73 mg/dL 70-105 (BEAKER) (test code = 652) CALCIUM (BEAKER) 8.4 mg/dL 8.4-10.2 (test code = 697) EGFR (BEAKER) (test 81 mL/min/1.73 ESTIMA MARGO GFR IS code = 1092) sq m NOT ACCURATE CREATININE CLEARANCE IN PREDICTING GLOMERULAR FILTRATION RATE . ESTIMATED GFR I S NOT APPLICABLE FOR DIALYSIS PATIEN TS. Screen Repairer Crusher ID - EMERSONCBC (HEMOGRAM ONLY)2019-12-18 07:02:00 Test Item Value Reference Range Interpretation Comments WHITE BLOOD CELL COUNT (BEAKER) 9.1 K/ L 3.5-10.5 (test code = 775) RED BLOOD CELL COUNT (BEAKER) 3.28 M/ L 3.93-5.22 L (test code = 761) HEMOGLOBIN (BEAKER) (test code = 8.9 GM/DL 11.2-15.7 L 410) HEMATOCRIT (BEAKER) (test code = 28.8 % 34.1-44.9 L 411) MEAN CORPUSCULAR VOLUME (BEAKER) 87.8 fL 79.4-94.8 (test code = 753) MEAN CORPUSCULAR HEMOGLOBIN 27.1 pg 25.6-32.2 (BEAKER) (test code = 751) MEAN CORPUSCULAR HEMOGLOBIN CONC 30.9 GM/DL 32.2-35.5 L (BEAKER) (test code = 752) RED CELL DISTRIBUTION WIDTH 14.7 % 11.7-14.4 H (BEAKER) (test code = 412) PLATELET COUNT (BEAKER) (test 475 K/CU MM 150-450 H code = 756) MEAN PLATELET VOLUME (BEAKER) 9.4 fL 9.4-12.3 (test code = 754) NUCLEATED RED BLOOD CELLS 0 /100 WBC 0-0 (BEAKER) (test code = 413) POCT-GLUCOSE [id number] 21:19:00 Test Item Value Reference Range Interpretation Comments POC-GLUCOSE METER 190 mg/dL 70-110 H : TESTED A T [facility] 6720 (BEAKER) (test code = LOREE Ramsey [facility], 1538) [address]: Screen Repairer Crusher/Techni herson ID = [id number] for Grace rom Barb POCT-GLUCOSE [id number] 18:00:00 Test Item Value Reference Range Interpretation Comments POC-GLUCOSE METER 140 mg/dL 70-110 H : TESTED A T [facility] 6720 (BEAKER) (test code = [place], 1538) [address]: Screen Repairer Crusher/Techni herson ID = [id number] for MARIA C CHEW POCT-GLUCOSE [id number] 11:50:00 Test Item Value Reference Range Interpretation Comments POC-GLUCOSE METER 136 mg/dL 70-110 H : TESTED A T [facility] 6720 (BEAKER) (test code = [facility], 1538) [address]: Screen Repairer Crusher/Techni herson ID = [id number] for CHINTAN MULLINS, MARIA C POCT-GLUCOSE [id number] 07:40:00 Test Item Value Reference Range Interpretation Comments POC-GLUCOSE METER 82 mg/dL 70-110 : TESTED A T [facility] 6720 (BEAKER) (test code = [facility], 1538) [address]: Screen Repairer Crusher/Techni herson ID = [id number] for MARIAMA HIGGINS TYNEHOPE [id number] 06:10:00 Test Item Value Reference Range Interpretation Comments MAGNESIUM (BEAKER) (test code = 2.2 mg/dL 1.6-2.6 627) Screen Repairer Crusher ID - BSBASIC METABOLIC [id number] 06:10:00 Test Item Value Reference Range Interpretation Comments SODIUM (BEAKER) 137 meq/L 136-145 (test code = 381) POTASSIUM (BEAKER) 3.7 meq/L 3.5-5.1 (test code = 379) CHLORIDE (BEAKER) 103 meq/L 98-107 (test code = 382) CO2 (BEAKER) (test 28 meq/L 22-29 code = 355) BLOOD UREA NITROGEN 16 mg/dL 7-21 (BEAKER) (test code = 354) CREATININE (BEAKER) 0.74 mg/dL 0.57-1.25 (test code = 358) GLUCOSE RANDOM 94 mg/dL 70-105 (BEAKER) (test code = 652) CALCIUM (BEAKER) 8.2 mg/dL 8.4-10.2 L (test code = 697) EGFR (BEAKER) (test 77 mL/min/1.73 ESTIMA MARGO GFR IS code = 1092) sq m NOT ACCURATE CREATININE CLEARANCE IN PREDICTING GLOMERULAR FILTRATION RATE . ESTIMATED GFR I S NOT APPLICABLE FOR DIALYSIS PATIEN TS. Screen Repairer Crusher ID - BSCBC (HEMOGRAM ONLY)2019-12-17 05:34:00 Test Item Value Reference Range Interpretation Comments WHITE BLOOD CELL COUNT (BEAKER) 10.7 K/ L 3.5-10.5 H (test code = 775) RED BLOOD CELL COUNT (BEAKER) 3.15 M/ L 3.93-5.22 L (test code = 761) HEMOGLOBIN (BEAKER) (test code = 8.5 GM/DL 11.2-15.7 L 410) HEMATOCRIT (BEAKER) (test code = 27.7 % 34.1-44.9 L 411) MEAN CORPUSCULAR VOLUME (BEAKER) 87.9 fL 79.4-94.8 (test code = 753) MEAN CORPUSCULAR HEMOGLOBIN 27.0 pg 25.6-32.2 (BEAKER) (test code = 751) MEAN CORPUSCULAR HEMOGLOBIN CONC 30.7 GM/DL 32.2-35.5 L (BEAKER) (test code = 752) RED CELL DISTRIBUTION WIDTH 14.7 % 11.7-14.4 H (BEAKER) (test code = 412) PLATELET COUNT (BEAKER) (test 480 K/CU MM 150-450 H code = 756) MEAN PLATELET VOLUME (BEAKER) 9.1 fL 9.4-12.3 L (test code = 754) NUCLEATED RED BLOOD CELLS 0 /100 WBC 0-0 (BEAKER) (test code = 413) POCT-GLUCOSE [id number] 21:02:00 Test Item Value Reference Range Interpretation Comments POC-GLUCOSE METER 153 mg/dL 70-110 H : TESTED A T [facility] 6720 (BEAKER) (test code = [facility], 153) [address]: Screen Repairer Crusher/Techni herson ID = [id number] for PREETI WYATT POCT-GLUCOSE [id number] 16:46:00 Test Item Value Reference Range Interpretation Comments POC-GLUCOSE METER 155 mg/dL 70-110 H : TESTED A T [facility] 6720 (BEAKER) (test code = [facility], 153) [address]: Screen Repairer Crusher/Techni herson ID = [id number] for BERRY NTER, HIWITHA RAD, CHEST, 1 VIEW, NON [id number] 15:53:00Reason for exam:->RIGHT PICC LINE TIP VERIFICATIONShould this be performed at the bedside?->YesFINAL REPORT CLINICAL HISTORY:RIGHT PICC LINE TIP VERIFICATION TECHNIQUE: 1 view of the chest. COMPARISON: None IMPRESSION: The tip of the right PICC line is near the cavoatrialjunction. There are no focal infiltrates or effusions. The cardiomediastinal silhouette is magnifiedby technique. There is a right humeral head suture anchor. Signed: Pollo Cortez MDRepharry [facility] Verified Date/Time: 12/16/2019 15:53:59 Reading Location: [facility] Radiology Reading Room XR chest 1 view portable / [id number] 15:53:00Interface, External Ris In - 12/16/2019 3:56 PM CDTFINAL REPORT CLINICAL HISTORY:RIGHT PICC LINE TIP VERIFICATION TECHNIQUE: 1 view of the chest. COMPARISON: None IMPRESSION: The tip of the right PICC line is near the cavoatrial junction. There are no focal infiltrates or effusions. The cardiomediastinal silhouette is magnified by technique. There is a right humeral head suture anchor. Signed: Pollo Cortez Verified Date/Time: 12/16/2019 15:53:59 Reading Location: [facility] Radiology [facility] [id number] 13:27:00Surgical Pathology Report Case: [id number] Authorizing Provider: Gabriel Stovall DPM Collected: 12/02/2019 08:41 AM Ordering Location: [facility] Received: 12/02/2019 09:24 AM SERVICES Pathologist: Cassia Xiao MD Specimens: A) - Toe, Right, 2nd digit B) -Foot, Right, Right foot C) - Foot, Right, 2, 3 metatarsal A. RIGHT SECOND TOE, DISARTICULATION: - EXTENSIVE DISTAL ISCHEMIC CHANGES; FOCAL GANGRENOUS NECROSIS - NO DEFINITVE OSTEOMYELITISB. RIGHT FOOT, EXCISION OF BONE AND SOFT TISSUE FRAGMENTS: - PREDOMINANTLY SOFT TISSUE WITH ISCHEMIC CHANGES AND FOCAL CALCIFICATION - NEGATIVE FOR OSTEOMYELITISC. RIGHT FOOT, SECOND AND THIRDMETATARSAL BONES, PARTIAL EXCISIONS: - FOCAL ACUTE OSTEOMYELITIS - ASSOCIATED ISCHEMIC AND GANGRENOUS CHANGES Signing Pathologist Direct Phone Line: [phone] signed by Cassia Xiao MD on 12/16/2019 at 1:27 PMSlides for microscopic examination are received on 12/08/2019.MO/[id number] X 2Gangrene of right foot ([facility]) [I96] [id number]. Toe, rightB. Foot, rightC. Foot, rightA. Received in formalin labeled with the patient's name, accession number and "right second toe" is a 5.5 x 2.0 x 1.7 cm disarticulated digit with up to 4.0 cm of attached in and soft tissue, and a partial striated nail. The skin is dusky shabazz-pink and displays a 5.2 x 4.0 cm brown-black, ulcerated lesion at the lateral aspect that is involving the skin and soft tissue margin. The underlying affected bone is red-pink, trabeculated and firm. [employer] Inspector sectionsare submitted as follows:Section codeA1-skin and soft tissue margin en faceA2-bone margin en face following decalcificationA3-lesion and underlying affected bone following decalcificationB. Received in formalin labeled with the patient's name, accession number and "right foot" is a 2.5 x 1.5 x 0.5 cm portion of dusky shabazz-pink soft tissue, which is entirely submitted in B1-B2.C. Received in formalinlabeled with the patient's name, accession number and "right foot second and third metatarsal" are two shabazz-yellow trabeculated bone fragments measuring up to 1.5 cm in greatest dimension with attached soft tissue. The articular surfaces are smooth. The cut surface is shabazz-yellow, trabeculated and firm. [employer] Inspector sections are submitted in C1-C2 following decalcification.SHARON Leon (ASCP)shank inspector-C. The samples show variable amounts of gangrenous necrosis. In the C-sample, in slide C-1, there is prominent associated acute osteomyelitis in the C-1 slide. Some articular cartilage does not show significant inflammation.POCT-GLUCOSE [id number] 12:00:00 Test Item Value Reference Range Interpretation Comments POC-GLUCOSE METER 122 mg/dL 70-110 H : TESTED A T [facility] 6720 (BEAKER) (test code = [place], 1538) [address]: Screen Repairer Crusher/Techni herson ID = [id number] for YADI KU [id number] 07:46:00 Test Item Value Reference Range Interpretation Comments MAGNESIUM (BEAKER) (test code = 2.2 mg/dL 1.6-2.6 627) Screen Repairer Crusher ID - ANGELINA FBASIC METABOLIC [id number] 07:46:00 Test Item Value Reference Range Interpretation Comments SODIUM (BEAKER) 140 meq/L 136-145 (test code = 381) POTASSIUM (BEAKER) 3.6 meq/L 3.5-5.1 (test code = 379) CHLORIDE (BEAKER) 104 meq/L 98-107 (test code = 382) CO2 (BEAKER) (test 29 meq/L 22-29 code = 355) BLOOD UREA NITROGEN 9 mg/dL 7-21 (BEAKER) (test code = 354) CREATININE (BEAKER) 0.71 mg/dL 0.57-1.25 (test code = 358) GLUCOSE RANDOM 108 mg/dL 70-105 H (BEAKER) (test code = 652) CALCIUM (BEAKER) 8.8 mg/dL 8.4-10.2 (test code = 697) EGFR (BEAKER) (test 81 mL/min/1.73 ESTIMA MARGO GFR IS code = 1092) sq m NOT ACCURATE CREATININE CLEARANCE IN PREDICTING GLOMERULAR FILTRATION RATE . ESTIMATED GFR I S NOT APPLICABLE FOR DIALYSIS PATIEN TS. Screen Repairer Crusher ID Bryant ANGELINA FCBC (HEMOGRAM ONLY)2019-12-16 07:16:00 Test Item Value Reference Range Interpretation Comments WHITE BLOOD CELL COUNT (BEAKER) 15.6 K/ L 3.5-10.5 H (test code = 775) RED BLOOD CELL COUNT (BEAKER) 3.39 M/ L 3.93-5.22 L (test code = 761) HEMOGLOBIN (BEAKER) (test code = 9.1 GM/DL 11.2-15.7 L 410) HEMATOCRIT (BEAKER) (test code = 29.2 % 34.1-44.9 L 411) MEAN CORPUSCULAR VOLUME (BEAKER) 86.1 fL 79.4-94.8 (test code = 753) MEAN CORPUSCULAR HEMOGLOBIN 26.8 pg 25.6-32.2 (BEAKER) (test code = 751) MEAN CORPUSCULAR HEMOGLOBIN CONC 31.2 GM/DL 32.2-35.5 L (BEAKER) (test code = 752) RED CELL DISTRIBUTION WIDTH 14.5 % 11.7-14.4 H (BEAKER) (test code = 412) PLATELET COUNT (BEAKER) (test 543 K/CU MM 150-450 H code = 756) MEAN PLATELET VOLUME (BEAKER) 9.4 fL 9.4-12.3 (test code = 754) NUCLEATED RED BLOOD CELLS 0 /100 WBC 0-0 (BEAKER) (test code = 413) POCT-GLUCOSE [id number] 07:02:00 Test Item Value Reference Range Interpretation Comments POC-GLUCOSE METER 99 mg/dL 70-110 : TESTED A T [facility] 6720 (BEAKER) (test code = [facility], 1538) [address]: Screen Repairer Crusher/Techni herson ID = [id number] for YADI SANDERSON POCT-GLUCOSE [id number] 21:27:00 Test Item Value Reference Range Interpretation Comments POC-GLUCOSE METER 287 mg/dL 70-110 H : TESTED A T [facility] 6720 (AKER) (test code = [facility], 1538) [address]: Screen Repairer Crusher/Techni herson ID = [id number] for PREETI WYATT Tissue [id number] 18:37:00 Test Item Value Reference Range Interpretation Comments Case Report (test code Surgical Pathology = 104) Report Case: [id number] Authorizing Provider: Gabriel Stovall DPM Collected: 12/05/2019 01:01 PM Ordering Location: [facility] Received: 12/05/2019 01:40 PM SERVICES Pathologist: Naresh Tillman MD Specimen: Foot, Right, right foot amputation DIAGNOSIS (test code = x0tsyDHmMCEwe9epGKHkdVD 3220) uZzEwMzNcZnRuYmpcdWMxIH pcueYoMSzqn7TpK8TeFiGhE FxhbnNpXGRlZmxhbmcxMDMz FPL9ewBhASWhBEncGAEdWIj yMu4vaTVbrJbeUsWdWYHxj3 ogvtSGozxnpAh0j0cxKAJyT lX7nMLhBRxjV0ncddIpgDFj EPPmOJv5eT82WOVxcW4ahJU vINkfntYxYzM2TYfuDEWlWm W4PCQqyDPmBZRxL6kgWTJeP LfaVMGtSGkxlNRgHMG2cDmc d5W2tWQynYRgzZadSgCxOsX xFDFZs3DvNGh0cChdZ6VaLA QxOnS0yWViWCWvALgnJOCwL WQnoeC7lY18ZFneyiY3yLFu g7Pjr06mh751kV5biZZiNDZ 9LIJeUFUdgPQiXLYqMHC8FO YcdLKpQ1m0OgTjnIDqI0N9X aDibYRgS2M5WrNqlFKtE9F1 TmRfhQVvQTUzfCXuXp9wfAK cxCBsqc9fvd22HMH7i2MhtK oiKZC3UUA1TnUhSc7etVWoK LOtJI2vTkPywLOyUKQxpq89 hZqtXSwyxzYmjN6dQbZhMKQ xhCMxMPSyRP7ypDAgTDAomC 5ucmxjXHBnYnJkcmhlYWRcc AxbxtYpAa7asDouZVP6FYzc X4afmR8fLqI2OBtfX6dkxY8 tFGh2IAzyvFG2TDQxrN8cHO 0rroijn4pfFtDdLF4jdlygx 8bePoKdSV1rmsk6b5dkMgGr CW4xgmayw1naMsEkBNoaHGU htkmoXQOup5LkfsyzBDShq4 SiT5LrrXpqF58ghSheD47rX ZMnrJlzyF0vaYlzkZ1qMpQx ZnMyNFxxbFxwbGFpblxmMVx mczIwXGxhbmcxMDMzXGhpY2 wyZdBlYDZgrNpaZZzrp1KeS ZRpKNLzWjJxDoyHCPQgNi6A ROphOAOOMcEGPYQLGKVDU0G STRPCSWGDEJSCV966TSDcxq XgUMOfJYNTT0bTGHYKAMRCF 6PXTBDYC7IFVCTSCGYCXBLG CAVTOWfCVuiEFV8IAVaQUpO QDjJhFGGFV7OAUyPTL0WKAH AWL46sSILvluZzBYHyUFKFM qIdZzWTZl4YFEYqiQCyISPl KABdIKMGJL9yGU7ZNNJQApG tXMaKJ0FWDBKBB8VBABcXJc BGSAHMVR0tQInJZu3DEtYQC GYUZBVTU6QMI4CpEw2FEFDF QK6HNKHbjbWbWIEiILFIS04 YKHWFW7NOXFjGTtNLCXVHXJ 0cF7fRLNTRUDIYAOJFQvVQY dSVG5JBRYIMX0OXD87NJLsE ENbITSZysz39WFZ3AwGsq3Z 8FLT9HDKgRLQhq0aiBCAcgV FuZzEwMzNcZnRuYmpcdWMxX ZCgQiNir8yoz605sEAnk7ap REZbHtR9mLLcCGRoiFTcL65 3ZKGeTIvxo7sog0KdFHWacJ Vtc3C9WMLYnicnlPc8sTfhA 28bq3Y1IzwjR1liIBQbWXAh P2LvBG2oUXFgNym6ZJX8UEY 0OSAoSTPvQ9JpFL6fSGOpgC EeLSo9r1nuyLslXQSoYLB7r 4jhYPpahlMuXQ6cpl9xeLv8 b0rwczTnHCLmTZOvyKLEKLQ sD1LouXhyYg9avJk2hGcjHc tlHER0Dnw6RE2vrq61jhe8t IxaUXSaparlDkO0TMflVNWw ugstDHn3MJtpJTKerIR5OQV wcOEzI1NoFHWjEK2spwd7BJ G5YDfcAKDbSnJ2ZSMkaASeL BNgoLvbVSljb966LLE8BnYt DL2qO5Qgw1J6jU9obZFbGTM ifXGlVnZgRESsfc6npDTqJU cnd0YrLXP8diR4pHIuyYCrO KPmGoA6JOlqMW7fwv71GKEf EXW8eo1feXHjxBydopSwbLV pEQaxD7XyUQNam747UMFgN3 HaUIUta9K2qkGeUkWiDCTxa KT4wwM9MCIeNK8dtkrzk4bg DAffGLpqNQJbyeC7hhA3JDY naEDiB9XapV6pTMRqPJ8pqo ppc4wyKPF0OBkxTTUuPWN3G yJvFKQkg2Lohas1GbKud5Ya tJCdNAbzM96xr967ZBXjqfG pM3agaJPqyfvvwJJzpvcoGK nrzhC9DUIdVVbmhwpnSGAwF VvvT8juJfFcAIZllUedVUlk z6XwOTGlAELxXjEysUSmQPV hKkj6ZDZcrCWkTWDqTyBcX0 xrqlsvOmDOMPXsc8oqR9njg PWBiVFvW6MnKSwoduDmLJaa IItdCUG5VIK8Uq52HkC2EJV hcn19 CPT Code(s) (test code a8epcUTaCLDvqEVzYrOiUPU = 3357) hZETez4hvHSQlaPDaUdXqXe NcZnRuYmpcdWMxXGRlZmYwe 0mcx618yIPjq8ubQWJrIiB5 cQZrIDAnlUCkV481v4aiy0f sxqHogTV3YXTyKXK0RRwogk RfpvY9MWnccYRdBgL4XPmaj xLnRFtidfTugmUtQex0LBXy A728HRK2rGrsy2tlDHL8IEZ jPVSrPvHsWj7xuETdS510HD DnJKOUCAFtiEo1CDTxssLbz kDocFVJw188Z241v7wwSSBn ynMxaDyOcagsj4kwG241PAI hcGVydzEyMjQwXHBhcGVyaD L1DZReZV7esvowSlTkPG4or jslCyLfQI3vhpu2JcZcSM8k cmdiNzIwXGhlYWRlcnkwXGZ qf3OunagfAS3uJ9Yir3U8kV 9maXRcZGVmdGFiNzIwXGZvc u4jlSDiWWrer7HcQOT7xvT1 vPChaYRjPZMzKI21Byncn8H kVwgoRWW8UHKnwkFsz5Niq3 ngLgSxzoPaN4sfJ8JvHHRwV TFmKFRnVnCscyFwc4Osk0Ne nZJvsEd6v6lbLIUcVEEkvRi cq0fbKSK6ONMlZ9B7bAQvp8 guWOkgWIOgrJZ9kaikDJrsI ZPpcnL0qcvlMZrpOXCkiXP9 gkrdTQdtNEUjYyS7jnjuSTt wDXQcRTU8JQayf221BWW7NP xzYmtwYWdlXHBnbmNvbnRcc GduZGVjXHBsYWluXHBsYWlu XGYwXGZzMjRccWxccGxhaW5 zQkNiAuUzKWwgEX6iJKAyR1 nifVYoNGKvLIZdD7fcBrJqj P6vuXeyEUznqnFrUOq2XyO1 DXN8YLPqMJbyJJF8 CLINICAL HISTORY (test p3xkgSShWUYzhQWqEeDkIWL code = 3356) cRAFui9awPVNufTKsQnTrJe NcZnRuYmpcdWMxXGRlZmYwe 4pjg264oERhd8zmTPNtSyN3 wVWwVBPuhBTmO016RQLsYKu nr1phr2YgXOVisZXrk9T2SP LMaaggcRg4fGzyA95pt0D5B hoiY9fmPBXjSJRyS1SkGC4i PTFhQne0TQW0GDT0IKAfMWT oW1BpDI9lIYQgdAXuTSy0o1 fglMtpTQJnRVK9k3dpCBhna gDlDQ6pho6wbHc8j0bwvzUh ZTPnGSObbIYWBYNfS5MsgRt oHm6zjQw4jVbiLtxzYIK0Vo m8ZR4fmi08wid2aTktXBEub xohDbJ3XRnfLZDcdhwaRZe5 MFxtYXJnbDcyMFxtYXJncjc yMFxtYXJndDcyMFxtYXJnYj vwIWflNPEbJEK9UQleo926N GD4TLwgl7fxe8qujPMvKye1 NXArAoJfYpxfDQeno3Iye2i yBQKumj2vMDE0hWVucOkeg4 H3tUQoYLJktWDblfDmMIRfC gU8TSorZC3ixg11SFNyJND4 ib1bmEKefBdmlmDjeKMdUQa jH3QhOTUvh955PIWjU1YoCK Wzh7Y5zjBeGwTmKSZchAF6b bO6ZPBdWQd1uOYotpW5deLa zAEsY7axhW72PsEzcLMeQ8W ykK93KgPneCFtT2QdxQ59Kr FmmEFdT9WjcQ71UcBcaQTnT ZWacMAxAn4lgHPeoCShd0Dg sUAgAYslC17go854OBCmtvW uB7kjnDKaxveiwYOqxttyGJ jhixR6TOq2fwSocotbqMgbx GFpblxmMVxmczIwXGxhbmcx XLSlPNrmJ1upNtOwBEEqdCh jRLqjf5DjIGGfVPNuZvAhMo 4hJAlzKXxpmvnpq4TuU0zsV Wdpt198nkQpBAyjvCXzIKbp PK2ct0XkkOEjKIdGDQAiVLj IQX7wuHmwPTDzYXirVUyrFS YqDTAkHWApDEOzQTS8XjN3U 4gmQWV3 SPECIMEN SOURCE (test a5bojDLlLXJvbRIrGtFfZCH code = 3377) lQLUre2qnNXAnxJGgBpAyCo NcZnRuYmpcdWMxXGRlZmYwe 0dzq549eLXuq7mzJWSwDvE0 aNJqXTNyzQJzL390s8djt9c qvrEzlYJ5EFCfCXC7GAqepo VilkA7HItjcKXdOlS0SPjkj tDbTTmucaWzzkRlSum4IQLi U380ZXW0zEhpi4qqRKA3PND wCTNfYrCuPg7joFYnP082TR AhTRCUBCTiiAk4GBAdzbUxj cDtzQLKv836B990y1gmPDRg tbDddZuMaptix0fyJ266EMO hcGVydzEyMjQwXHBhcGVyaD I9NDUiVF6urjugZdJxIN1ji rksZiCeZY9xwyo9KtEcUL2v cmdiNzIwXGhlYWRlcnkwXGZ ic7VwiofnLS4zX8Cvw0V9jD 9maXRcZGVmdGFiNzIwXGZvc n5esRIcIIsch3RlGFW8ooP5 tHDsxJXwBPUvPA69Dwzld5C vWuwmCGP5VAEeyxQvy7Ofd1 mbUoKpexJlZ3ovY1XcLQEwL ITwDRPvXuEwqyJfn1Weo7Qb mGCvuLd2j1ktSHIlHZKssAn aw8rhFQJ1LGPqQ8Z2cTFuz6 czAFihCHBguDI7ixybSCsdY JVmfoB7pgeaTOcsSVMlxPD0 edhgEVspOUCkMiS3wtnqFLp wMMDeRKE1ZBfil490RBT9SP xzYmtwYWdlXHBnbmNvbnRcc GduZGVjXHBsYWluXHBsYWlu XGYwXGZzMjRccWxccGxhaW5 dVtQyGbYyYFrxIU3fQIPwG8 sftZWjFKJtBLVkK7krKpYqg R2sjUmvANrpylXlNQYjy4Kg DKIvY9w2OZRlqp2= GROSS DESCRIPTION q2fwoLThPHOaqBNvEiDbMZL (test code = 3366) sYBRmh2ruMQFzyYWpPjNeEr NcZnRuYmpcdWMxXGRlZmYwe 5lis661hABbw8mfOAQuQqT7 zHTpOJQefATyY195e4ooh8j nvsRwsTW6QFMwCSD3SEijhi ZopgF8YNvguDInLuH7YUagf aDeAZptisBwwqAmZxb5BPFb I740ATS3wCvrw3vhLMC1WIL cLFKoOsJkOr0zoTUzQ326IB SiYFQFUWZhfWr8RXMrisVmw dUsbKCBy956T178b7nxPCTd czBiaLvOpuhvn7umH766KAE hcGVydzEyMjQwXHBhcGVyaD M2ZPZvDA5tylvqBrIbTR8fk gzxDuWgTA0dyxu0CgEnUW0w cmdiNzIwXGhlYWRlcnkwXGZ hr8QtwbifPL8sG8Uan1G2nQ 9maXRcZGVmdGFiNzIwXGZvc b1zkHSpRDjtt1CiAZI9ixH6 eQTpaNDbDBYfVG80Uvpve1F kSteiJMR2JIEshrPmr2Lhj2 raTfMujiMqB9gxW4LzMUOlM FLcGNGzDqHhkqZqi1Isu8Kz jQSovDb3t2tvGTDiHUFfaOt ws8aaSRM2RWCcN0X7iJOfr7 viNUuaJEVzqAQ1iibaNHphC HMcqiV9hdtcFYcjRTZyhXM5 ogluIQdcZLQrLhP1yeeiJId pOSGsFEP4VQtld497UPE8PG xzYmtwYWdlXHBnbmNvbnRcc GduZGVjXHBsYWluXHBsYWlu XGYwXGZzMjRccWxccGxhaW5 sYxEiEwUbDOebMH3xAAYyF6 uycRVvWYQrPPHiK5bsXxGms F3uyXewKJswekRxLARlK5Oj gxEfWKodAVFmjg3iaXfrJKu qTiRwGMJzl7q5mEC2nPIwrM W8zWXxaVafNG8ptLDaIHXkK 9Rnl5gsmsMclJ5lVMIbKM5f PDAosYdsoCZkc586LaOysdE cDZYyBtFtuLL0TgHprPO8Fe DyW54ddvxbdIKxqGEgynYzL IAxvOYoi9BoYKEztLP4HWNm u60sWOynvOkktXvtRnFndEn tgPGmQQohDT11KrQmXVevJT QztK8rmHXuoVOsZITcztihF P9jUFRog2FdURnhQQDlQI2q JCqpVk82ZMNzSHAurvN9tYF zsjA1NDWdsCEvpT8nVPC7XG IpTURnnrK9gH57pqXzsDTxM W1lDXKseIO9LLKyy96jzVdn dCBpcyBpbnZvbHZpbmcgdGh iRQichGHtADxbUGFaXMY9YD 9mIHRoZSBmaXJzdCBkaWdpd CBhbmQgbWVkaWFsIGFzcGVj wAQrAdI4dJGuJl29txRxTAW oV5g3DGIrrnAviMHeiDSmcu N1wUPxKACeLKQjzNIcyp8hW PYhPJHuw5onZFEaNMLal5T1 EHXgh9R0RVBnZETseO7iXHz td6AyMVUlzHPwZySwAUdcFE LrNQTdiEggifrjDLVbEBM6Z ULvVk7aVRKnxnJ5UM9dxDHe nG74VLD1ldCuLLE2nIS3YDK bQZ8aYUNbyy1uEJRUJGJnRP JvgaUkwOa7NRBpMKM0cK6re fJomsFbk0PyfRd6cZZuPYOb VLCyoGzac3N4DFPzyvdbANP aU3BojUmuaoAna7QkZCCjpx TMHB3mDORvc39uMN4xGONxk E6pUO1rTJYeWfYauKcaq8Iq LN5gbuhmrjKeisNcDKRtWWO zisEHUa5LIh5wa38oXG7cjg qrxvFwf6zvy3ezmpmmPRDlM XqddCAxU8M4gB2zNCYvrrBW HQ0is3ywUJipx9qejaqlIDU yUAXjj5omccYtWJBkk95bXT 5kIHVuZGVybHlpbmcgYWZmZ GI3ATRmRr9wMCJio4ypv0sk ygrxYAYxYKbdwXIuU9E7lD4 uXHBhclxwYXIgUGlsYXIgQX JndWVsbGVzLCBQQSAoQVNDU CljbVxwYXJccGFyXHBhcn0= MICROSCOPIC y2sxxVAiIUSzvIAtWdMvSCR DESCRIPTION (test code nQGUkd9urTNRmnRIfXaAqNm = 3371) NcZnRuYmpcdWMxXGRlZmYwe 5lpf929bQHkj7dbAJUrWdJ6 vKJaGENvsMHcY573b6rte7q eomXttNN2KQBbQJF9TLdnmt NsnxT5YVbxdXDpHqN5GTqtc fZpRHrqcyEogbYfMmu3ZBWs U147KUC5zGzxb9ufWHF4BTR aNXYkRlClVj3fqRPxI662GH DfNZNOKJAxfWl7IXPettLmz tUsjFDYe865M939w7xzFNQq kgIbqDcPpslex6atD288NZZ hcGVydzEyMjQwXHBhcGVyaD Y0LVZfRV3uubpgBrXgRL9xb gcoZjFpUY9erwd5YuBgJO8k cmdiNzIwXGhlYWRlcnkwXGZ rw2HswdtgKM9qW7Myh4Z1aP 9maXRcZGVmdGFiNzIwXGZvc p9bbJLhKFzkm5PtXWB6fkO9 bEAyvBXbGIEeMO32Paegk6P pKtunUBK1DPYpprBrd3Hla3 yfBtQumeViL0rmN2BhDYTgT KCcAIFzOfBvprQoe9Apt1Qp xTXyuLk7d3vtWMDvVNPujLt vh0whMCY3HLBaH2U3yIWzg1 esTVxlCLHxkCX6mennCTugB XZzysJ0tsgfJMmjUCPxqQZ9 mohjAHcbLCCiUmA1wgjgXVw cZBKiIQW1CUszc044POA2FU xzYmtwYWdlXHBnbmNvbnRcc GduZGVjXHBsYWluXHBsYWlu XGYwXGZzMjRccWxccGxhaW5 qKxMxFbNsSJtyVB3fTZPuD3 spgXDrUWJbQZLsP5qhGxHjo W6apZysPNayqlEaPRFngzGa us6kJY8diUKwgD== [facility] [id number] 18:37:00Surgical Pathology Report Case: [id number] Authorizing Provider: Gabriel Stovall DPM Collected: 12/05/2019 01:01 PM Ordering Location: [facility] Received: 12/05/2019 01:40 PM SERVICES Pathologist: Naresh Tillman MD Specimen: Foot, Right, right foot amputation RIGHT FOOT, TRANSMETATARSAL AMPUTATION: - SKIN AND SOFT TISSUE WITH ACUTE INFLAMMATION AND ABSCESS FORMATION, AND NECROSIS - SKIN AND SOFT TISSUE RESECTION MARGIN, INVOLVED BY ABSCESS FORMATION - BONE RESECTION MARGIN WITH FEATURES OF ACUTE OSTEOMYELITIS Signing Pathologist Direct Phone Line: [phone] signed by Naresh Tillman MD on 12/15/2019 at 6:37 [id number], [id number]-ouchqzx surgical wound, initial encounter [[id number]]33470, 94779, 77149, 02783Ljhb, rightReceived in formalin labeled with the patient's name, accession number and "right foot" is a 10.3 x 7.5 x 4.3 cm right transmetatarsal amputation displaying digits 1, 4-5. The skin is shabazz-pink and displays a 5.0 x 2.8 cm shabazz ulcerated lesion at the previous site of amputation that is involving the lateral aspect of the first digit and medial aspect of the fourth digit, and is less than 0.1 cm from the skin and soft tissue margin (inked blue). The underlying affected bone is shabazz-yellow, trabeculated and firm. [employer] Inspector sections are submitted as follows:Section codeA1-lesion and skin and soft tissue margin en vacrX5-O8-ryen margin following decalcificationA4-skin lesionA5-skin lesion and underlying affected bone following decalcificationSHARON Leon (ASCP)cmPerformed.POCT-GLUCOSE [id number] 16:55:00 Test Item Value Reference Range Interpretation Comments POC-GLUCOSE METER 149 mg/dL 70-110 H : TESTED A T [facility] 6720 (PressPad) (test code = [place], 1538) 98624: Screen Repairer Crusher/Techni herson ID = [id number] for PAVAN ZUÑIGA POCT-GLUCOSE [id number] 11:57:00 Test Item Value Reference Range Interpretation Comments POC-GLUCOSE METER 251 mg/dL 70-110 H : TESTED A T [facility] 67[facility] (BEAKER) (test code = [place] [facility], 1538) 96447: Screen Repairer Crusher/Techni herson ID = [id number] for MARCOS KUWITHBo Surgically obtained culture + gram [id number] 10:43:00 Test Item Value Reference Range Interpretation Comments Result (test code = 6463-4) No growth Gram Stain Result (test No organisms seen code = 1123) [facility] + [facility]AM [id number] 10:43:00 Test Item Value Reference Range Interpretation Comments CULTURE (BEAKER) (test No growth code = 1095) GRAM STAIN RESULT <1+ White blood cells (BEAKER) (test code = seen 1123) GRAM STAIN RESULT No organisms seen (BEAKER) (test code = 40263) POCT-GLUCOSE [id number] 07:10:00 Test Item Value Reference Range Interpretation Comments POC-GLUCOSE METER 130 mg/dL 70-110 H : TESTED A T [facility] 6720 (BEAKER) (test code = [place] [facility], 1538) 62919: Screen Repairer Crusher/Techni herson ID = [id number] for YADI KU [id number] 06:12:00 Test Item Value Reference Range Interpretation Comments MAGNESIUM (BEAKER) (test code = 2.3 mg/dL 1.6-2.6 627) Screen Repairer Crusher ID - PIAYA LBASIC METABOLIC [id number] 06:12:00 Test Item Value Reference Range Interpretation Comments SODIUM (BEAKER) 139 meq/L 136-145 (test code = 381) POTASSIUM (BEAKER) 4.2 meq/L 3.5-5.1 (test code = 379) CHLORIDE (BEAKER) 103 meq/L 98-107 (test code = 382) CO2 (BEAKER) (test 29 meq/L 22-29 code = 355) BLOOD UREA NITROGEN 12 mg/dL 7-21 (BEAKER) (test code = 354) CREATININE (BEAKER) 0.69 mg/dL 0.57-1.25 (test code = 358) GLUCOSE RANDOM 158 mg/dL 70-105 H (BEAKER) (test code = 652) CALCIUM (BEAKER) 8.6 mg/dL 8.4-10.2 (test code = 697) EGFR (BEAKER) (test 83 mL/min/1.73 ESTIMA MARGO GFR IS code = 1092) sq m NOT ACCURATE CREATININE CLEARANCE IN PREDICTING GLOMERULAR FILTRATION RATE . ESTIMATED GFR I S NOT APPLICABLE FOR DIALYSIS PATIEN TS. Screen Repairer Crusher ID - PIAYA LCBC (HEMOGRAM ONLY)2019-12-15 05:22:00 Test Item Value Reference Range Interpretation Comments WHITE BLOOD CELL COUNT (BEAKER) 10.6 K/ L 3.5-10.5 H (test code = 775) RED BLOOD CELL COUNT (BEAKER) 3.51 M/ L 3.93-5.22 L (test code = 761) HEMOGLOBIN (BEAKER) (test code = 9.3 GM/DL 11.2-15.7 L 410) HEMATOCRIT (BEAKER) (test code = 30.7 % 34.1-44.9 L 411) MEAN CORPUSCULAR VOLUME (BEAKER) 87.5 fL 79.4-94.8 (test code = 753) MEAN CORPUSCULAR HEMOGLOBIN 26.5 pg 25.6-32.2 (BEAKER) (test code = 751) MEAN CORPUSCULAR HEMOGLOBIN CONC 30.3 GM/DL 32.2-35.5 L (BEAKER) (test code = 752) RED CELL DISTRIBUTION WIDTH 13.8 % 11.7-14.4 (BEAKER) (test code = 412) PLATELET COUNT (BEAKER) (test 570 K/CU MM 150-450 H code = 756) MEAN PLATELET VOLUME (BEAKER) 9.4 fL 9.4-12.3 (test code = 754) NUCLEATED RED BLOOD CELLS 0 /100 WBC 0-0 (BEAKER) (test code = 413) POCT-GLUCOSE [id number] 21:27:00 Test Item Value Reference Range Interpretation Comments POC-GLUCOSE METER 225 mg/dL 70-110 H : TESTED A T [facility] 6720 (BEAKER) (test code = [place], 1538) 19531: Screen Repairer Crusher/Techni herson ID = [id number] for MARY IBRAHIM ZOILA POCT-GLUCOSE [id number] 17:30:00 Test Item Value Reference Range Interpretation Comments POC-GLUCOSE METER 219 mg/dL 70-110 H : TESTED A T [facility] 6720 (BEAKER) (test code = [facility], 1538) 17893: Screen Repairer Crusher/Techni herson ID = [id number] for SA Brandt MARCELOULMA POCT-GLUCOSE [id number] 12:19:00 Test Item Value Reference Range Interpretation Comments POC-GLUCOSE METER 184 mg/dL 70-110 H : TESTED A T [facility] 67[facility] (BEAKER) (test code = [facility], 1538) 21605: Screen Repairer Crusher/Techni herson ID = [id number] for SA MERCEDZ, KARY POCT-GLUCOSE [id number] 08:06:00 Test Item Value Reference Range Interpretation Comments POC-GLUCOSE METER 126 mg/dL 70-110 H : TESTED A T [facility]20 (BEAKER) (test code = [facility], 1538) 19464: Screen Repairer Crusher/Techni herson ID = [id number] for SA MERCEDZ, KARY [id number] 06:11:00 Test Item Value Reference Range Interpretation Comments MAGNESIUM (BEAKER) (test code = 2.3 mg/dL 1.6-2.6 627) Screen Repairer Crusher ID - FARHAT LBASIC METABOLIC [id number] 06:11:00 Test Item Value Reference Range Interpretation Comments SODIUM (BEAKER) 138 meq/L 136-145 (test code = 381) POTASSIUM (BEAKER) 4.4 meq/L 3.5-5.1 (test code = 379) CHLORIDE (BEAKER) 103 meq/L 98-107 (test code = 382) CO2 (BEAKER) (test 31 meq/L 22-29 H code = 355) BLOOD UREA NITROGEN 11 mg/dL 7-21 (BEAKER) (test code = 354) CREATININE (BEAKER) 0.73 mg/dL 0.57-1.25 (test code = 358) GLUCOSE RANDOM 154 mg/dL 70-105 H (BEAKER) (test code = 652) CALCIUM (BEAKER) 8.4 mg/dL 8.4-10.2 (test code = 697) EGFR (BEAKER) (test 78 mL/min/1.73 ESTIMA MARGO GFR IS code = 1092) sq m NOT ACCURATE CREATININE CLEARANCE IN PREDICTING GLOMERULAR FILTRATION RATE . ESTIMATED GFR I S NOT APPLICABLE FOR DIALYSIS PATIEN TS. Screen Repairer Crusher ID - FARHAT LCBC (HEMOGRAM ONLY)2019-12-14 05:21:00 Test Item Value Reference Range Interpretation Comments WHITE BLOOD CELL COUNT (BEAKER) 8.7 K/ L 3.5-10.5 (test code = 775) RED BLOOD CELL COUNT (BEAKER) 3.26 M/ L 3.93-5.22 L (test code = 761) HEMOGLOBIN (BEAKER) (test code = 8.8 GM/DL 11.2-15.7 L 410) HEMATOCRIT (BEAKER) (test code = 28.5 % 34.1-44.9 L 411) MEAN CORPUSCULAR VOLUME (BEAKER) 87.4 fL 79.4-94.8 (test code = 753) MEAN CORPUSCULAR HEMOGLOBIN 27.0 pg 25.6-32.2 (BEAKER) (test code = 751) MEAN CORPUSCULAR HEMOGLOBIN CONC 30.9 GM/DL 32.2-35.5 L (BEAKER) (test code = 752) RED CELL DISTRIBUTION WIDTH 13.6 % 11.7-14.4 (BEAKER) (test code = 412) PLATELET COUNT (BEAKER) (test 525 K/CU MM 150-450 H code = 756) MEAN PLATELET VOLUME (BEAKER) 9.5 fL 9.4-12.3 (test code = 754) NUCLEATED RED BLOOD CELLS 0 /100 WBC 0-0 (BEAKER) (test code = 413) POCT-GLUCOSE [id number] 21:54:00 Test Item Value Reference Range Interpretation Comments POC-GLUCOSE METER 240 mg/dL 70-110 H : TESTED A T [facility] 6720 (BEAKER) (test code = [facility], 153) 30613: Screen Repairer Crusher/Techni herson ID = [id number] for GREG BARBOSA POCT-GLUCOSE [id number] 17:05:00 Test Item Value Reference Range Interpretation Comments POC-GLUCOSE METER 145 mg/dL 70-110 H : TESTED A T [facility] (BEAKER) (test code = [facility], 1538) 85765: Screen Repairer Crusher/Techni herson ID = [id number] for Abner Rowan SPIN/CONCENTRATION [id number] 12:25:00 Test Item Value Reference Range Interpretation Comments Concentration charged (test code = Done 2657) [facility] [id number] 12:25:00 Test Item Value Reference Range Interpretation Comments CONCENTRATION CHARGED (BEAKER) (test Done code = 2657) POCT-GLUCOSE [id number] 11:27:00 Test Item Value Reference Range Interpretation Comments POC-GLUCOSE METER 294 mg/dL 70-110 H : TESTED A T [facility] 6720 (BEAKER) (test code = [facility], 1538) 86721: Screen Repairer Crusher/Techni herson ID = [id number] for Do Jose hernandezn POCT-GLUCOSE [id number] 07:32:00 Test Item Value Reference Range Interpretation Comments POC-GLUCOSE METER 109 mg/dL 70-110 : TESTED A T [facility] (BEAKER) (test code = [facility] [employer] [facility], 1538) 44932: Screen Repairer Crusher/Techni herson ID = [id number] for Do Jose hernandezn CBC (HEMOGRAM ONLY)2019-12-13 06:36:00 Test Item Value Reference Range Interpretation Comments WHITE BLOOD CELL COUNT (BEAKER) 11.0 K/ L 3.5-10.5 H (test code = 775) RED BLOOD CELL COUNT (BEAKER) 3.44 M/ L 3.93-5.22 L (test code = 761) HEMOGLOBIN (BEAKER) (test code = 9.2 GM/DL 11.2-15.7 L 410) HEMATOCRIT (BEAKER) (test code = 30.0 % 34.1-44.9 L 411) MEAN CORPUSCULAR VOLUME (BEAKER) 87.2 fL 79.4-94.8 (test code = 753) MEAN CORPUSCULAR HEMOGLOBIN 26.7 pg 25.6-32.2 (BEAKER) (test code = 751) MEAN CORPUSCULAR HEMOGLOBIN CONC 30.7 GM/DL 32.2-35.5 L (BEAKER) (test code = 752) RED CELL DISTRIBUTION WIDTH 13.6 % 11.7-14.4 (BEAKER) (test code = 412) PLATELET COUNT (BEAKER) (test 544 K/CU MM 150-450 H code = 756) MEAN PLATELET VOLUME (BEAKER) 9.3 fL 9.4-12.3 L (test code = 754) NUCLEATED RED BLOOD CELLS 0 /100 WBC 0-0 (BEAKER) (test code = 413) [id number] 05:43:00 Test Item Value Reference Range Interpretation Comments MAGNESIUM (BEAKER) (test code = 2.3 mg/dL 1.6-2.6 627) Screen Repairer Crusher ID - LINDSAY WBASIC METABOLIC [id number] 05:43:00 Test Item Value Reference Range Interpretation Comments SODIUM (BEAKER) 139 meq/L 136-145 (test code = 381) POTASSIUM (BEAKER) 4.2 meq/L 3.5-5.1 (test code = 379) CHLORIDE (BEAKER) 102 meq/L 98-107 (test code = 382) CO2 (BEAKER) (test 31 meq/L 22-29 H code = 355) BLOOD UREA NITROGEN 10 mg/dL 7-21 (BEAKER) (test code = 354) CREATININE (BEAKER) 0.71 mg/dL 0.57-1.25 (test code = 358) GLUCOSE RANDOM 128 mg/dL 70-105 H (BEAKER) (test code = 652) CALCIUM (BEAKER) 8.7 mg/dL 8.4-10.2 (test code = 697) EGFR (BEAKER) (test 81 mL/min/1.73 ESTIMA MARGO GFR IS code = 1092) sq m NOT ACCURATE CREATININE CLEARANCE IN PREDICTING GLOMERULAR FILTRATION RATE . ESTIMATED GFR I S NOT APPLICABLE FOR DIALYSIS PATIEN TS. Screen Repairer Crusher ID Bryant MONTOYA WPOCT-GLUCOSE [id number] 21:23:00 Test Item Value Reference Range Interpretation Comments POC-GLUCOSE METER 225 mg/dL 70-110 H : TESTED A T [facility] 6720 (BEAKER) (test code = [facility], 153) 53609: Screen Repairer Crusher/Techni herson ID = [id number] for MANOLO FARIDAELENA CRESENCIO POCT-GLUCOSE [id number] 17:01:00 Test Item Value Reference Range Interpretation Comments POC-GLUCOSE METER 199 mg/dL 70-110 H : TESTED A T [facility]20 (BEAKER) (test code = [facility], 1538) 51691: Screen Repairer Crusher/Techni herson ID = [id number] for AMBIKA SUAREZ CHISHERYL POCT-GLUCOSE [id number] 12:55:00 Test Item Value Reference Range Interpretation Comments POC-GLUCOSE METER 148 mg/dL 70-110 H : TESTED A T [facility] 6720 (BEAKER) (test code = [facility], 1538) 68028: Screen Repairer Crusher/Techni herson ID = [id number] for KYLER MOHAMUD POCT-GLUCOSE [id number] 08:06:00 Test Item Value Reference Range Interpretation Comments POC-GLUCOSE METER 179 mg/dL 70-110 H : TESTED A T [facility] (BEAKER) (test code = [place] [facility], 1538) 33431: Screen Repairer Crusher/Techni herson ID = [id number] for PAVAN ZUÑIGA CBC (HEMOGRAM ONLY)2019-12-12 06:52:00 Test Item Value Reference Range Interpretation Comments WHITE BLOOD CELL COUNT (BEAKER) 10.3 K/ L 3.5-10.5 (test code = 775) RED BLOOD CELL COUNT (BEAKER) 3.49 M/ L 3.93-5.22 L (test code = 761) HEMOGLOBIN (BEAKER) (test code = 9.2 GM/DL 11.2-15.7 L 410) HEMATOCRIT (BEAKER) (test code = 30.3 % 34.1-44.9 L 411) MEAN CORPUSCULAR VOLUME (BEAKER) 86.8 fL 79.4-94.8 (test code = 753) MEAN CORPUSCULAR HEMOGLOBIN 26.4 pg 25.6-32.2 (BEAKER) (test code = 751) MEAN CORPUSCULAR HEMOGLOBIN CONC 30.4 GM/DL 32.2-35.5 L (BEAKER) (test code = 752) RED CELL DISTRIBUTION WIDTH 13.4 % 11.7-14.4 (BEAKER) (test code = 412) PLATELET COUNT (BEAKER) (test 524 K/CU MM 150-450 H code = 756) MEAN PLATELET VOLUME (BEAKER) 9.5 fL 9.4-12.3 (test code = 754) NUCLEATED RED BLOOD CELLS 0 /100 WBC 0-0 (BEAKER) (test code = 413) [id number] 06:47:00 Test Item Value Reference Range Interpretation Comments MAGNESIUM (BEAKER) (test code = 2.3 mg/dL 1.6-2.6 627) Screen Repairer Crusher ID - LABASIC METABOLIC [id number] 06:47:00 Test Item Value Reference Range Interpretation Comments SODIUM (BEAKER) 136 meq/L 136-145 (test code = 381) POTASSIUM (BEAKER) 4.4 meq/L 3.5-5.1 (test code = 379) CHLORIDE (BEAKER) 99 meq/L 98-107 (test code = 382) CO2 (BEAKER) (test 32 meq/L 22-29 H code = 355) BLOOD UREA NITROGEN 14 mg/dL 7-21 (BEAKER) (test code = 354) CREATININE (BEAKER) 0.74 mg/dL 0.57-1.25 (test code = 358) GLUCOSE RANDOM 207 mg/dL 70-105 H (BEAKER) (test code = 652) CALCIUM (BEAKER) 8.7 mg/dL 8.4-10.2 (test code = 697) EGFR (BEAKER) (test 77 mL/min/1.73 ESTIMA MARGO GFR IS code = 1092) sq m NOT ACCURATE CREATININE CLEARANCE IN PREDICTING GLOMERULAR FILTRATION RATE . ESTIMATED GFR I S NOT APPLICABLE FOR DIALYSIS PATIEN TS. Screen Repairer Crusher ID - LAPOCT-GLUCOSE [id number] 21:12:00 Test Item Value Reference Range Interpretation Comments POC-GLUCOSE METER 285 mg/dL 70-110 H : TESTED A T [facility] 6720 (BEAKER) (test code = [facility], 153) 92508: Screen Repairer Crusher/Techni herson ID = [id number] for PE FARIDAELENA, CRESENCIO POCT-GLUCOSE [id number] 16:56:00 Test Item Value Reference Range Interpretation Comments POC-GLUCOSE METER 226 mg/dL 70-110 H : TESTED A T [facility] 6720 (BEAKER) (test code = [facility], 1538) 28139: Screen Repairer Crusher/Techni herson ID = [id number] for [place] LLIAMS, TYNEKA POCT-GLUCOSE [id number] 11:57:00 Test Item Value Reference Range Interpretation Comments POC-GLUCOSE METER 293 mg/dL 70-110 H : TESTED A T [facility] 6720 (BEAKER) (test code = [facility], 1538) 08322: Screen Repairer Crusher/Techni herson ID = [id number] for [place] LLIAMS, TYNEKA POCT-GLUCOSE [id number] 07:36:00 Test Item Value Reference Range Interpretation Comments POC-GLUCOSE METER 152 mg/dL 70-110 H : TESTED A T [facility] 6720 (BEAKER) (test code = [place], 1538) 68234: Screen Repairer Crusher/Techni herson ID = [id number] for CHINTAN MULLINS, MARIA C [id number] 06:31:00 Test Item Value Reference Range Interpretation Comments MAGNESIUM (BEAKER) 2.4 mg/dL 1.6-2.6 Specimen slightly (test code = 627) hemolyzed Screen Repairer Crusher ID - FARHAT LBASIC METABOLIC [id number] 06:31:00 Test Item Value Reference Range Interpretation Comments SODIUM (BEAKER) 137 meq/L 136-145 (test code = 381) POTASSIUM (BEAKER) 4.8 meq/L 3.5-5.1 Specimen slightly (test code = 379) hemolyzed CHLORIDE (BEAKER) 99 meq/L 98-107 (test code = 382) CO2 (BEAKER) (test 31 meq/L 22-29 H code = 355) BLOOD UREA NITROGEN 14 mg/dL 7-21 (BEAKER) (test code = 354) CREATININE (BEAKER) 0.78 mg/dL 0.57-1.25 Specimen slightly (test code = 358) hemolyzed GLUCOSE RANDOM 174 mg/dL 70-105 H (BEAKER) (test code = 652) CALCIUM (BEAKER) 9.1 mg/dL 8.4-10.2 (test code = 697) EGFR (BEAKER) (test 72 mL/min/1.73 ESTIMA MARGO GFR IS code = 1092) sq m NOT ACCURATE CREATININE CLEARANCE IN PREDICTING GLOMERULAR FILTRATION RATE . ESTIMATED GFR I S NOT APPLICABLE FOR DIALYSIS PATIEN TS. Screen Repairer Crusher ID - PIAYA LCBC (HEMOGRAM ONLY)2019-12-11 05:58:00 Test Item Value Reference Range Interpretation Comments WHITE BLOOD CELL COUNT (BEAKER) 13.8 K/ L 3.5-10.5 H (test code = 775) RED BLOOD CELL COUNT (BEAKER) 3.79 M/ L 3.93-5.22 L (test code = 761) HEMOGLOBIN (BEAKER) (test code = 10.2 GM/DL 11.2-15.7 L 410) HEMATOCRIT (BEAKER) (test code = 33.0 % 34.1-44.9 L 411) MEAN CORPUSCULAR VOLUME (BEAKER) 87.1 fL 79.4-94.8 (test code = 753) MEAN CORPUSCULAR HEMOGLOBIN 26.9 pg 25.6-32.2 (BEAKER) (test code = 751) MEAN CORPUSCULAR HEMOGLOBIN CONC 30.9 GM/DL 32.2-35.5 L (BEAKER) (test code = 752) RED CELL DISTRIBUTION WIDTH 13.2 % 11.7-14.4 (BEAKER) (test code = 412) PLATELET COUNT (BEAKER) (test 561 K/CU MM 150-450 H code = 756) MEAN PLATELET VOLUME (BEAKER) 9.5 fL 9.4-12.3 (test code = 754) NUCLEATED RED BLOOD CELLS 0 /100 WBC 0-0 (BEAKER) (test code = 413) POCT-GLUCOSE [id number] 21:34:00 Test Item Value Reference Range Interpretation Comments POC-GLUCOSE METER 290 mg/dL 70-110 H : TESTED A T [facility] 6720 (BEAKER) (test code = [facility], 153) 39285: Screen Repairer Crusher/Techni herson ID = [id number] for ZOILA GAMEZ POCT-GLUCOSE [id number] 16:49:00 Test Item Value Reference Range Interpretation Comments POC-GLUCOSE METER 247 mg/dL 70-110 H : TESTED A T [facility] 6720 (BEAKER) (test code = [facility], 153) 99514: Screen Repairer Crusher/Techni herson ID = [id number] for CHANDAN PADRON POCT-GLUCOSE [id number] 11:15:00 Test Item Value Reference Range Interpretation Comments POC-GLUCOSE METER 244 mg/dL 70-110 H : TESTED A T [facility] 6720 (BEAKER) (test code = [facility], 153) 76109: Screen Repairer Crusher/Techni herson ID = [id number] for CHANDAN PADRON [id number] 08:20:00 Test Item Value Reference Range Interpretation Comments MAGNESIUM (BEAKER) (test code = 2.4 mg/dL 1.6-2.6 627) Screen Repairer Crusher ID - MINERVA BBASIC METABOLIC [id number] 08:20:00 Test Item Value Reference Range Interpretation Comments SODIUM (BEAKER) 134 meq/L 136-145 L (test code = 381) POTASSIUM (BEAKER) 4.5 meq/L 3.5-5.1 (test code = 379) CHLORIDE (BEAKER) 95 meq/L 98-107 L (test code = 382) CO2 (BEAKER) (test 29 meq/L 22-29 code = 355) BLOOD UREA NITROGEN 16 mg/dL 7-21 (BEAKER) (test code = 354) CREATININE (BEAKER) 0.83 mg/dL 0.57-1.25 (test code = 358) GLUCOSE RANDOM 258 mg/dL 70-105 H (BEAKER) (test code = 652) CALCIUM (BEAKER) 8.7 mg/dL 8.4-10.2 (test code = 697) EGFR (BEAKER) (test 67 mL/min/1.73 ESTIMA MARGO GFR IS code = 1092) sq m NOT ACCURATE CREATININE CLEARANCE IN PREDICTING GLOMERULAR FILTRATION RATE . ESTIMATED GFR I S NOT APPLICABLE FOR DIALYSIS PATIEN TS. Screen Repairer Crusher ID - MINERVA BPOCT-GLUCOSE [id number] 07:50:00 Test Item Value Reference Range Interpretation Comments POC-GLUCOSE METER 239 mg/dL 70-110 H : TESTED A T [facility] 6720 (BEAKER) (test code = [place], 1538) 97344: Screen Repairer Crusher/Techni herson ID = [id number] for [facility] CBC (HEMOGRAM ONLY)2019-12-10 07:07:00 Test Item Value Reference Range Interpretation Comments WHITE BLOOD CELL COUNT (BEAKER) 12.6 K/ L 3.5-10.5 H (test code = 775) RED BLOOD CELL COUNT (BEAKER) 3.85 M/ L 3.93-5.22 L (test code = 761) HEMOGLOBIN (BEAKER) (test code = 10.2 GM/DL 11.2-15.7 L 410) HEMATOCRIT (BEAKER) (test code = 33.5 % 34.1-44.9 L 411) MEAN CORPUSCULAR VOLUME (BEAKER) 87.0 fL 79.4-94.8 (test code = 753) MEAN CORPUSCULAR HEMOGLOBIN 26.5 pg 25.6-32.2 (BEAKER) (test code = 751) MEAN CORPUSCULAR HEMOGLOBIN CONC 30.4 GM/DL 32.2-35.5 L (BEAKER) (test code = 752) RED CELL DISTRIBUTION WIDTH 13.2 % 11.7-14.4 (BEAKER) (test code = 412) PLATELET COUNT (BEAKER) (test 546 K/CU MM 150-450 H code = 756) MEAN PLATELET VOLUME (BEAKER) 9.5 fL 9.4-12.3 (test code = 754) NUCLEATED RED BLOOD CELLS 0 /100 WBC 0-0 (BEAKER) (test code = 413) POCT-GLUCOSE [id number] 21:25:00 Test Item Value Reference Range Interpretation Comments POC-GLUCOSE METER 248 mg/dL 70-110 H : TESTED A T [facility] 6720 (BEAKER) (test code = [facility], 153) [id number]: Screen Repairer Crusher/Techni herson ID = [id number] for Barb Martins POCT-GLUCOSE [id number] 17:15:00 Test Item Value Reference Range Interpretation Comments POC-GLUCOSE METER 221 mg/dL 70-110 H : TESTED A T [facility] 6720 (BEAKER) (test code = [facility], 153) [id number]: Screen Repairer Crusher/Techni herson ID = [id number] for HU NTER, HIWITHA POCT-GLUCOSE [id number] 12:00:00 Test Item Value Reference Range Interpretation Comments POC-GLUCOSE METER 220 mg/dL 70-110 H : TESTED A T [facility] 6720 (BEAKER) (test code = [facility], 153) [id number]: Screen Repairer Crusher/Techni herson ID = [id number] for HU NTER, HIWITHA [id number] 07:12:00 Test Item Value Reference Range Interpretation Comments MAGNESIUM (BEAKER) (test code = 2.4 mg/dL 1.6-2.6 627) Screen Repairer Crusher ID - ANGELINA FBASIC METABOLIC [id number] 07:12:00 Test Item Value Reference Range Interpretation Comments SODIUM (BEAKER) 135 meq/L 136-145 L (test code = 381) POTASSIUM (BEAKER) 4.5 meq/L 3.5-5.1 (test code = 379) CHLORIDE (BEAKER) 97 meq/L 98-107 L (test code = 382) CO2 (BEAKER) (test 32 meq/L 22-29 H code = 355) BLOOD UREA NITROGEN 8 mg/dL 7-21 (BEAKER) (test code = 354) CREATININE (BEAKER) 0.76 mg/dL 0.57-1.25 (test code = 358) GLUCOSE RANDOM 196 mg/dL 70-105 H (BEAKER) (test code = 652) CALCIUM (BEAKER) 8.8 mg/dL 8.4-10.2 (test code = 697) EGFR (BEAKER) (test 75 mL/min/1.73 ESTIMA MARGO GFR IS code = 1092) sq m NOT ACCURATE CREATININE CLEARANCE IN PREDICTING GLOMERULAR FILTRATION RATE . ESTIMATED GFR I S NOT APPLICABLE FOR DIALYSIS PATIEN TS. Screen Repairer Crusher ID - ANGELINA FPOCT-GLUCOSE [id number] 07:04:00 Test Item Value Reference Range Interpretation Comments POC-GLUCOSE METER 176 mg/dL 70-110 H : TESTED A T [facility] 6720 (BEAKER) (test code = [place], 1538) [id number]: Screen Repairer Crusher/Techni herson ID = [id number] for [facility] CBC (HEMOGRAM ONLY)2019-12-09 06:51:00 Test Item Value Reference Range Interpretation Comments WHITE BLOOD CELL COUNT (BEAKER) 10.6 K/ L 3.5-10.5 H (test code = 775) RED BLOOD CELL COUNT (BEAKER) 3.64 M/ L 3.93-5.22 L (test code = 761) HEMOGLOBIN (BEAKER) (test code = 9.8 GM/DL 11.2-15.7 L 410) HEMATOCRIT (BEAKER) (test code = 31.7 % 34.1-44.9 L 411) MEAN CORPUSCULAR VOLUME (BEAKER) 87.1 fL 79.4-94.8 (test code = 753) MEAN CORPUSCULAR HEMOGLOBIN 26.9 pg 25.6-32.2 (BEAKER) (test code = 751) MEAN CORPUSCULAR HEMOGLOBIN CONC 30.9 GM/DL 32.2-35.5 L (BEAKER) (test code = 752) RED CELL DISTRIBUTION WIDTH 12.9 % 11.7-14.4 (BEAKER) (test code = 412) PLATELET COUNT (BEAKER) (test 521 K/CU MM 150-450 H code = 756) MEAN PLATELET VOLUME (BEAKER) 9.4 fL 9.4-12.3 (test code = 754) NUCLEATED RED BLOOD CELLS 0 /100 WBC 0-0 (BEAKER) (test code = 413) POCT-GLUCOSE [id number] 22:22:00 Test Item Value Reference Range Interpretation Comments POC-GLUCOSE METER 248 mg/dL 70-110 H : TESTED A T [facility] 6720 (BEAKER) (test code = [facility], 1538) 98704: Screen Repairer Crusher/Techni herson ID = [id number] for ZOILA GAMEZ Blood Culture - Routine (Left Venipuncture)2019-12-08 21:00:00 Test Item Value Reference Range Interpretation Comments Result (test code = No growth in 5 days 6463-4) [id number] 21:00:00 Test Item Value Reference Range Interpretation Comments CULTURE (BEAKER) (test No growth in 5 days code = 1095) BLOOD [id number] 21:00:00 Test Item Value Reference Range Interpretation Comments CULTURE (BEAKER) (test No growth in 5 days code = 1095) ANAEROBIC [id number] 17:38:00 Test Item Value Reference Range Interpretation Comments CULTURE (BEAKER) (test No anaerobes isolated code = 1095) POCT-GLUCOSE [id number] 16:42:00 Test Item Value Reference Range Interpretation Comments POC-GLUCOSE METER 193 mg/dL 70-110 H : TESTED A T [facility] 6720 (BEAKER) (test code = [facility], 1538) 50080: Screen Repairer Crusher/Techni herson ID = [id number] for ZA VALA, ERANDY POCT-GLUCOSE [id number] 12:04:00 Test Item Value Reference Range Interpretation Comments POC-GLUCOSE METER 199 mg/dL 70-110 H : TESTED A T [facility] 6720 (BEAKER) (test code = [facility], 1538) 02496: Screen Repairer Crusher/Techni herson ID = [id number] for ZA VALA, ERANDY POCT-GLUCOSE [id number] 08:08:00 Test Item Value Reference Range Interpretation Comments POC-GLUCOSE METER 168 mg/dL 70-110 H : TESTED A T [facility] 6720 (BEAKER) (test code = [place], 1538) 65084: Screen Repairer Crusher/Techni herson ID = [id number] for TERELL GREENWOOD [id number] 07:27:00 Test Item Value Reference Range Interpretation Comments MAGNESIUM (BEAKER) (test code = 2.1 mg/dL 1.6-2.6 627) Screen Repairer Crusher ID - JORGE ALBERTO CBASIC METABOLIC [id number] 07:27:00 Test Item Value Reference Range Interpretation Comments SODIUM (BEAKER) 138 meq/L 136-145 (test code = 381) POTASSIUM (BEAKER) 4.1 meq/L 3.5-5.1 (test code = 379) CHLORIDE (BEAKER) 99 meq/L 98-107 (test code = 382) CO2 (BEAKER) (test 32 meq/L 22-29 H code = 355) BLOOD UREA NITROGEN 9 mg/dL 7-21 (BEAKER) (test code = 354) CREATININE (BEAKER) 0.73 mg/dL 0.57-1.25 (test code = 358) GLUCOSE RANDOM 175 mg/dL 70-105 H (BEAKER) (test code = 652) CALCIUM (BEAKER) 8.6 mg/dL 8.4-10.2 (test code = 697) EGFR (BEAKER) (test 78 mL/min/1.73 ESTIMA MARGO GFR IS code = 1092) sq m NOT ACCURATE CREATININE CLEARANCE IN PREDICTING GLOMERULAR FILTRATION RATE . ESTIMATED GFR I S NOT APPLICABLE FOR DIALYSIS PATIEN TS. Screen Repairer Crusher ID - JUN [facility]BC (HEMOGRAM ONLY)2019-12-08 06:30:00 Test Item Value Reference Range Interpretation Comments WHITE BLOOD CELL COUNT (BEAKER) 9.9 K/ L 3.5-10.5 (test code = 775) RED BLOOD CELL COUNT (BEAKER) 3.57 M/ L 3.93-5.22 L (test code = 761) HEMOGLOBIN (BEAKER) (test code = 9.4 GM/DL 11.2-15.7 L 410) HEMATOCRIT (BEAKER) (test code = 30.7 % 34.1-44.9 L 411) MEAN CORPUSCULAR VOLUME (BEAKER) 86.0 fL 79.4-94.8 (test code = 753) MEAN CORPUSCULAR HEMOGLOBIN 26.3 pg 25.6-32.2 (BEAKER) (test code = 751) MEAN CORPUSCULAR HEMOGLOBIN CONC 30.6 GM/DL 32.2-35.5 L (BEAKER) (test code = 752) RED CELL DISTRIBUTION WIDTH 12.7 % 11.7-14.4 (BEAKER) (test code = 412) PLATELET COUNT (BEAKER) (test 443 K/CU MM 150-450 code = 756) MEAN PLATELET VOLUME (BEAKER) 9.5 fL 9.4-12.3 (test code = 754) NUCLEATED RED BLOOD CELLS 0 /100 WBC 0-0 (BEAKER) (test code = 413) POCT-GLUCOSE [id number] 21:57:00 Test Item Value Reference Range Interpretation Comments POC-GLUCOSE METER 215 mg/dL 70-110 H : TESTED A T [facility] 6720 (AKER) (test code = [facility], 1538) 74801: Screen Repairer Crusher/Techni herson ID = [id number] for BART LESLIE POCT-GLUCOSE [id number] 17:22:00 Test Item Value Reference Range Interpretation Comments POC-GLUCOSE METER 151 mg/dL 70-110 H : TESTED A T [facility] 6720 (AKER) (test code = [facility], 1538) 94040: Screen Repairer Crusher/Techni herson ID = [id number] for AMBIKA PAVAN CHIU LANEY OBTAINED CULTURE + GRAM [id number] 13:45:00 Test Item Value Reference Range Interpretation Comments CULTURE (AKER) (test PROVIDENCIA A <1+ P rovidencia code = 1095) RETTGERI rettgeri Amikacin (test code = S 1) Ampicillin + Sulbactam S (test code = 6) Aztreonam (test code = S 32) Cefepime (test code = S 51) Cefoxitin (test code = S 68) Ceftazidime (test code S = 27) Ceftriaxone (test code S = 52) Ertapenem (test code = S 38) Gentamicin (test code S = 18) Levofloxacin (test R code = 22) Meropenem (test code = S 34) Nitrofurantoin (test R code = 23) Tetracycline (test R code = 2) Tobramycin (test code S = 25) Trimethoprim + R Sulfamethoxazole (test code = 47) GRAM STAIN RESULT <1+ White blood (BEAKER) (test code = cells seen 1123) GRAM STAIN RESULT No organisms seen (BEAKER) (test code = 609992) [id number] 06:32:00 Test Item Value Reference Range Interpretation Comments MAGNESIUM (BEAKER) 2.2 mg/dL 1.6-2.6 Specimen slightly (test code = 627) hemolyzed Screen Repairer Crusher ID - PIAYA LBASIC METABOLIC [id number] 06:32:00 Test Item Value Reference Range Interpretation Comments SODIUM (BEAKER) 137 meq/L 136-145 (test code = 381) POTASSIUM (BEAKER) 3.9 meq/L 3.5-5.1 Specimen slightly (test code = 379) hemolyzed CHLORIDE (BEAKER) 99 meq/L 98-107 (test code = 382) CO2 (BEAKER) (test 30 meq/L 22-29 H code = 355) BLOOD UREA NITROGEN 7 mg/dL 7-21 (BEAKER) (test code = 354) CREATININE (BEAKER) 0.64 mg/dL 0.57-1.25 Specimen slightly (test code = 358) hemolyzed GLUCOSE RANDOM 117 mg/dL 70-105 H (BEAKER) (test code = 652) CALCIUM (BEAKER) 8.3 mg/dL 8.4-10.2 L (test code = 697) EGFR (BEAKER) (test 91 mL/min/1.73 ESTIMA MARGO GFR IS code = 1092) sq m NOT ACCURATE CREATININE CLEARANCE IN PREDICTING GLOMERULAR FILTRATION RATE . ESTIMATED GFR I S NOT APPLICABLE FOR DIALYSIS PATIEN TS. Screen Repairer Crusher ID - PIAYA [facility]BC (HEMOGRAM ONLY)2019-12-07 05:39:00 Test Item Value Reference Range Interpretation Comments WHITE BLOOD CELL COUNT (BEAKER) 8.8 K/ L 3.5-10.5 (test code = 775) RED BLOOD CELL COUNT (BEAKER) 3.19 M/ L 3.93-5.22 L (test code = 761) HEMOGLOBIN (BEAKER) (test code = 8.5 GM/DL 11.2-15.7 L 410) HEMATOCRIT (BEAKER) (test code = 27.3 % 34.1-44.9 L 411) MEAN CORPUSCULAR VOLUME (BEAKER) 85.6 fL 79.4-94.8 (test code = 753) MEAN CORPUSCULAR HEMOGLOBIN 26.6 pg 25.6-32.2 (BEAKER) (test code = 751) MEAN CORPUSCULAR HEMOGLOBIN CONC 31.1 GM/DL 32.2-35.5 L (BEAKER) (test code = 752) RED CELL DISTRIBUTION WIDTH 12.6 % 11.7-14.4 (BEAKER) (test code = 412) PLATELET COUNT (BEAKER) (test 381 K/CU MM 150-450 code = 756) MEAN PLATELET VOLUME (BEAKER) 9.6 fL 9.4-12.3 (test code = 754) NUCLEATED RED BLOOD CELLS 0 /100 WBC 0-0 (BEAKER) (test code = 413) POCT-GLUCOSE [id number] 21:14:00 Test Item Value Reference Range Interpretation Comments POC-GLUCOSE METER 165 mg/dL 70-110 H : TESTED A T [facility] 6720 (BEAKER) (test code = [facility], 153) 23007: Screen Repairer Crusher/Techni herson ID = [id number] for GO NZALES III, LEILANI SPIN/CONCENTRATION [id number] 18:12:00 Test Item Value Reference Range Interpretation Comments CONCENTRATION CHARGED (BEAKER) (test Done code = 2657) POCT-GLUCOSE [id number] 16:48:00 Test Item Value Reference Range Interpretation Comments POC-GLUCOSE METER 155 mg/dL 70-110 H : TESTED A T [facility] 6720 (BEAKER) (test code = [facility], 153) 18204: Screen Repairer Crusher/Techni herson ID = [id number] for HU NTER, HIWITHA POCT-GLUCOSE [id number] 12:18:00 Test Item Value Reference Range Interpretation Comments POC-GLUCOSE METER 163 mg/dL 70-110 H : TESTED A T [facility] 6720 (BEAKER) (test code = [facility], 1538) 57397: Screen Repairer Crusher/Techni herson ID = [id number] for MAXWELL RRIS, FINESSE ECG 12 [id number] 08:45:24Interface, External Ris In - 12/06/2019 8:45 AM CDTVentricular Rate 80 BPMAtrial Rate 80 BPMP-R Interval 160 msQRS Duration 86 msQ-T Interval 418 msQTC Calculation(Bazett) 482 msP [place] 0 degreesR Axis14 degreesT [place] 36 degreesSinus rhythm with occasional Premature ventricular complexes and Premature atrial complexesOtherwise normal ECGNo previous ECGs availableConfirmed by MD Bebe, Cristhian ([id number])on 12/06/2019 8:45:22 [facility] [id number] 07:11:00 Test Item Value Reference Range Interpretation Comments POC-GLUCOSE METER 106 mg/dL 70-110 : [facility] (test code = [place], 1538) 05768: Screen Repairer Crusher/Techni herson ID = [id number] for MARCOS KUWITHA BLOOD [id number] 06:00:00 Test Item Value Reference Range Interpretation Comments CULTURE (BEAKER) (test No growth in 5 days code = 1095) BLOOD [id number] 06:00:00 Test Item Value Reference Range Interpretation Comments CULTURE (BEAKER) (test No growth in 5 days code = 1095) [id number] 05:55:00 Test Item Value Reference Range Interpretation Comments MAGNESIUM (BEAKER) (test code = 1.8 mg/dL 1.6-2.6 627) Screen Repairer Crusher ID - PALOMA MBASIC METABOLIC [id number] 05:55:00 Test Item Value Reference Range Interpretation Comments SODIUM (BEAKER) 136 meq/L 136-145 (test code = 381) POTASSIUM (BEAKER) 3.4 meq/L 3.5-5.1 L (test code = 379) CHLORIDE (BEAKER) 98 meq/L 98-107 (test code = 382) CO2 (BEAKER) (test 31 meq/L 22-29 H code = 355) BLOOD UREA NITROGEN 8 mg/dL 7-21 (BEAKER) (test code = 354) CREATININE (BEAKER) 0.62 mg/dL 0.57-1.25 (test code = 358) GLUCOSE RANDOM 119 mg/dL 70-105 H (BEAKER) (test code = 652) CALCIUM (BEAKER) 8.1 mg/dL 8.4-10.2 L (test code = 697) EGFR (BEAKER) (test 94 mL/min/1.73 ESTIMA MARGO GFR IS code = 1092) sq m NOT ACCURATE CREATININE CLEARANCE IN PREDICTING GLOMERULAR FILTRATION RATE . ESTIMATED GFR I S NOT APPLICABLE FOR DIALYSIS PATIEN TS. Screen Repairer Crusher ID - PALOMA [facility] (HEMOGRAM ONLY)2019-12-06 05:21:00 Test Item Value Reference Range Interpretation Comments WHITE BLOOD CELL COUNT (BEAKER) 9.8 K/ L 3.5-10.5 (test code = 775) RED BLOOD CELL COUNT (BEAKER) 3.14 M/ L 3.93-5.22 L (test code = 761) HEMOGLOBIN (BEAKER) (test code = 8.4 GM/DL 11.2-15.7 L 410) HEMATOCRIT (BEAKER) (test code = 26.9 % 34.1-44.9 L 411) MEAN CORPUSCULAR VOLUME (BEAKER) 85.7 fL 79.4-94.8 (test code = 753) MEAN CORPUSCULAR HEMOGLOBIN 26.8 pg 25.6-32.2 (BEAKER) (test code = 751) MEAN CORPUSCULAR HEMOGLOBIN CONC 31.2 GM/DL 32.2-35.5 L (BEAKER) (test code = 752) RED CELL DISTRIBUTION WIDTH 12.4 % 11.7-14.4 (BEAKER) (test code = 412) PLATELET COUNT (BEAKER) (test 352 K/CU MM 150-450 code = 756) MEAN PLATELET VOLUME (BEAKER) 9.4 fL 9.4-12.3 (test code = 754) NUCLEATED RED BLOOD CELLS 0 /100 WBC 0-0 (BEAKER) (test code = 413) POCT-GLUCOSE [id number] 21:16:00 Test Item Value Reference Range Interpretation Comments POC-GLUCOSE METER 158 mg/dL 70-110 H : TESTED A T [facility] 6720 (BEAKER) (test code = [place], 1538) 18767: Screen Repairer Crusher/Techni herson ID = [id number] for GO NZALES III, LEILANI ANAEROBIC [id number] 17:15:00 Test Item Value Reference Range Interpretation Comments CULTURE (BEAKER) (test No anaerobes isolated code = 1095) POCT-GLUCOSE [id number] 16:48:00 Test Item Value Reference Range Interpretation Comments POC-GLUCOSE METER 127 mg/dL 70-110 H : TESTED Bo Arthur [facility] 6720 (RICK) (test code = [place], 1538) 95474: Screen Repairer Crusher/Techni herson ID = [id number] for TERELL GREENWOOD RAD, FOOT, MIN 3 VIEWS, [id number] 16:43:00Reason for exam:->s/p debridementFINAL REPORT TECHNIQUE: Frontal, lateral, and oblique radiographs of the right foot dated 12/05/2019 HISTORY: Status post debridement COMPARISON: Radiographs of the right foot dated 12/02/2019. FINDINGS:Patient is status post transmetatarsal amputation with postsurgical fluid andair seen in the soft tissues. No fracture or dislocation. Bones are osteopenic. Lisfranc joint is well aligned on these nonstress views. No bone erosion or soft tissue nodule seen. No radiodense foreign body. IMPRESSION:Postoperative changes associated with transmetatarsal amputation. Signed: Abdoul Barbosaeport Verified Date/Time: 12/05/2019 16:43:31 Reading Location: [address] Radiology Reading Room XR foot 3 views right 2019-12-05 16:43:00Interface, External Ris In - 12/05/2019 4:45 PM CDTFINAL REPORT TECHNIQUE: Frontal, lateral, and oblique radiographs of the right foot dated 12/05/2019 HISTORY: Status post debridement COMPARISON: Radiographs of the right foot dated 12/02/2019. FINDINGS:Patient is status post transmetatarsal amputation with postsurgical fluid and air seen in the soft tissues. No fracture or dislocation. Bones are osteopenic. Lisfranc joint is well aligned on these nonstress views. No bone erosion or soft tissue nodule seen. No radiodense foreign body. IMPRESSION:Postoperative changes associated with transmetatarsal amputation. Signed: Abdoul Barbosa MDReport Verified Date/Time: 12/05/2019 16:43:31 Reading Location: [address] Radiology Reading Room [facility] GRAM [id number] 13:21:00 Test Item Value Reference Interpretation Comments Range CULTURE (BEAKER) (test PROVIDENCIA A 2+ Pr ovidencia code = 1095) RETTGERI rettgeri Amikacin (test code = S 1) Ampicillin + Sulbactam R (test code = 6) Aztreonam (test code = S 32) Cefepime (test code = S 51) Cefoxitin (test code = S 68) Ceftazidime (test code S = 27) Ceftriaxone (test code S = 52) Ertapenem (test code = S 38) Gentamicin (test code S = 18) Levofloxacin (test R code = 22) Meropenem (test code = S 34) Nitrofurantoin (test R code = 23) Tetracycline (test R code = 2) Tobramycin (test code S = 25) Trimethoprim + R Sulfamethoxazole (test code = 47) CULTURE (BEAKER) (test MORGANELLA A 2+ Mo rganella code = 1095) MORGANII morganiiAmpC Positive Amikacin (test code = S 1) Ampicillin + Sulbactam R (test code = 6) Aztreonam (test code = R 32) Cefepime (test code = S 51) Cefoxitin (test code = R 68) Ceftazidime (test code R = 27) Ceftriaxone (test code R = 52) Ertapenem (test code = S 38) Gentamicin (test code R = 18) Levofloxacin (test R code = 22) Meropenem (test code = S 34) Nitrofurantoin (test R code = 23) Tetracycline (test R code = 2) Tobramycin (test code S = 25) Trimethoprim + R Sulfamethoxazole (test code = 47) GRAM STAIN RESULT No WBCs (BEAKER) (test code = 1123) GRAM STAIN RESULT No organisms seen (BEAKER) (test code = 549360) POCT-GLUCOSE [id number] 13:08:00 Test Item Value Reference Range Interpretation Comments POC-GLUCOSE METER 127 mg/dL 70-110 H : TESTED A T [facility] 6720 (BEAKER) (test code = [place], 1538) 05955: Screen Repairer Crusher/Techni herson ID = [id number] for RENEE ROGEL POCT-GLUCOSE [id number] 08:14:00 Test Item Value Reference Range Interpretation Comments POC-GLUCOSE METER 163 mg/dL 70-110 H : TESTED A T [facility] 6720 (BEAKER) (test code = [place] [facility], 1538) 75680: Screen Repairer Crusher/Techni herson ID = [id number] for TERELL GREENWOOD [id number] 07:20:00 Test Item Value Reference Range Interpretation Comments MAGNESIUM (BEAKER) (test code = 1.8 mg/dL 1.6-2.6 627) Screen Repairer Crusher ID Bryant DOW MBASIC METABOLIC [id number] 07:20:00 Test Item Value Reference Range Interpretation Comments SODIUM (BEAKER) 138 meq/L 136-145 (test code = 381) POTASSIUM (BEAKER) 3.5 meq/L 3.5-5.1 (test code = 379) CHLORIDE (BEAKER) 99 meq/L 98-107 (test code = 382) CO2 (BEAKER) (test 33 meq/L 22-29 H code = 355) BLOOD UREA NITROGEN 8 mg/dL 7-21 (BEAKER) (test code = 354) CREATININE (BEAKER) 0.65 mg/dL 0.57-1.25 (test code = 358) GLUCOSE RANDOM 166 mg/dL 70-105 H (BEAKER) (test code = 652) CALCIUM (BEAKER) 8.2 mg/dL 8.4-10.2 L (test code = 697) EGFR (BEAKER) (test 89 mL/min/1.73 ESTIMA MARGO GFR IS code = 1092) sq m NOT ACCURATE CREATININE CLEARANCE IN PREDICTING GLOMERULAR FILTRATION RATE . ESTIMATED GFR I S NOT APPLICABLE FOR DIALYSIS PATIEN TS. Screen Repairer Crusher ID - PALOMA [facility] (HEMOGRAM ONLY)2019-12-05 06:44:00 Test Item Value Reference Range Interpretation Comments WHITE BLOOD CELL COUNT (BEAKER) 9.3 K/ L 3.5-10.5 (test code = 775) RED BLOOD CELL COUNT (BEAKER) 3.22 M/ L 3.93-5.22 L (test code = 761) HEMOGLOBIN (BEAKER) (test code = 8.6 GM/DL 11.2-15.7 L 410) HEMATOCRIT (BEAKER) (test code = 27.5 % 34.1-44.9 L 411) MEAN CORPUSCULAR VOLUME (BEAKER) 85.4 fL 79.4-94.8 (test code = 753) MEAN CORPUSCULAR HEMOGLOBIN 26.7 pg 25.6-32.2 (BEAKER) (test code = 751) MEAN CORPUSCULAR HEMOGLOBIN CONC 31.3 GM/DL 32.2-35.5 L (BEAKER) (test code = 752) RED CELL DISTRIBUTION WIDTH 12.7 % 11.7-14.4 (BEAKER) (test code = 412) PLATELET COUNT (BEAKER) (test 346 K/CU MM 150-450 code = 756) MEAN PLATELET VOLUME (BEAKER) 9.5 fL 9.4-12.3 (test code = 754) NUCLEATED RED BLOOD CELLS 0 /100 WBC 0-0 (BEAKER) (test code = 413) POCT-GLUCOSE [id number] 21:18:00 Test Item Value Reference Range Interpretation Comments POC-GLUCOSE METER 146 mg/dL 70-110 H : TESTED A T [facility] 6720 (BEAKER) (test code = [place], 1538) 50965: Screen Repairer Crusher/Techni herson ID = [id number] for Barb Martins Platelet Aggregation: Drug [id number] 17:58:00 Test Item Value Reference Range Interpretation Comments Arachadonic Acid (test 75 % 63-89 code = 5993-1) Interpretation (test Normal arachidonic code = 22134-9) acid and ADP results. No [id number] or aspirin-like drug effect. Pathologist: (test code Arnav Rouse M.D. = 7631) (electonic signature) Platelets (test code = 349 150- 450 K/CU MM 2656) ADP (test code = 74 % 62-100 18609-3) Platelet Rich Plasma 290 200- 300 k/cu mm (test code = 2134) BASIA (test code = BASIA) Platelet function studies by aggregation methodology on samples with platelet count <75,000/CU MM are unreliable; platelet function assessment should not be based on a single test.Screen Repairer Crusher ID - [id number] [facility] Center[facility]ATE[facility] AGGREGATION: DRUG [id number] 17:58:00 Test Item Value Reference Range Interpretation Comments ARACHADONIC ACID 75 % 63-89 RESULT(BEAKER) (test code = 2138) PLATELET AGG DRUG Normal arachidonic INTERPRETATION (BEAKER) acid and ADP results. (test code = 2408) No [id number] or aspirin-like drug effect. [id number] Arnav Rouse M.D. (BEAKER) (test code = (electonic signature) 7254) PLATELET COUNT AGG 349 K/CU MM 150-450 (BEAKER) (test code = 2656) ADP (BEAKER) (test code 74 % 62-100 = 4654) PLATELET RICH 290 k/cu mm 200-300 PLASMA(BEAKER) (test code = 2134) Platelet function studies by aggregation methodology on samples with platelet count <75,000/CU MMare unreliable; platelet function assessment should not be based on a single test.Screen Repairer Crusher ID - [id number]-GLUCOSE [id number] 16:20:00 Test Item Value Reference Range Interpretation Comments POC-GLUCOSE METER 141 mg/dL 70-110 H : TESTED A T [facility] 6720 (BEAKER) (test code = [facility], 153) 67620: Screen Repairer Crusher/Techni herson ID = [id number] for CHANDAN PADRON POCT-GLUCOSE [id number] 11:53:00 Test Item Value Reference Range Interpretation Comments POC-GLUCOSE METER 138 mg/dL 70-110 H : TESTED A T [facility] 6720 (BEAKER) (test code = [facility], 1538) 45958: Screen Repairer Crusher/Techni herson ID = [id number] for CHANDAN PADRON POCT-GLUCOSE [id number] 08:18:00 Test Item Value Reference Range Interpretation Comments POC-GLUCOSE METER 93 mg/dL 70-110 : TESTED A T [facility] 6720 (BEAKER) (test code = [facility], 1538) 51086: Screen Repairer Crusher/Techni herson ID = [id number] for BARB QUEZADA [id number] 07:55:00 Test Item Value Reference Range Interpretation Comments MAGNESIUM (BEAKER) (test code = 1.8 mg/dL 1.6-2.6 627) Screen Repairer Crusher ID - JORGE ALBERTO STEPHENSIC METABOLIC [id number] 07:55:00 Test Item Value Reference Range Interpretation Comments SODIUM (BEAKER) 137 meq/L 136-145 (test code = 381) POTASSIUM (BEAKER) 3.5 meq/L 3.5-5.1 (test code = 379) CHLORIDE (BEAKER) 100 meq/L 98-107 (test code = 382) CO2 (BEAKER) (test 31 meq/L 22-29 H code = 355) BLOOD UREA NITROGEN 9 mg/dL 7-21 (BEAKER) (test code = 354) CREATININE (BEAKER) 0.64 mg/dL 0.57-1.25 (test code = 358) GLUCOSE RANDOM 107 mg/dL 70-105 H (BEAKER) (test code = 652) CALCIUM (BEAKER) 8.1 mg/dL 8.4-10.2 L (test code = 697) EGFR (BEAKER) (test 91 mL/min/1.73 ESTIMA MARGO GFR IS code = 1092) sq m NOT ACCURATE CREATININE CLEARANCE IN PREDICTING GLOMERULAR FILTRATION RATE . ESTIMATED GFR I S NOT APPLICABLE FOR DIALYSIS PATIEN TS. Screen Repairer Crusher ID - JORGE ALBERTO [id number] 07:33:00 Test Item Value Reference Range Interpretation Comments PTT (test code = 78293-9) 37.4 22.5- 36.0 seconds H Lab Interpretation (test code = Abnormal 31928-3) [id number] 07:33:00 Test Item Value Reference Range Interpretation Comments PARTIAL THROMBOPLASTIN TIME 37.4 seconds 22.5-36.0 H (BEAKER) (test code = 760) CBC (HEMOGRAM ONLY)2019-12-04 07:19:00 Test Item Value Reference Range Interpretation Comments WHITE BLOOD CELL COUNT (BEAKER) 10.3 K/ L 3.5-10.5 (test code = 775) RED BLOOD CELL COUNT (BEAKER) 3.25 M/ L 3.93-5.22 L (test code = 761) HEMOGLOBIN (BEAKER) (test code = 8.7 GM/DL 11.2-15.7 L 410) HEMATOCRIT (BEAKER) (test code = 28.0 % 34.1-44.9 L 411) MEAN CORPUSCULAR VOLUME (BEAKER) 86.2 fL 79.4-94.8 (test code = 753) MEAN CORPUSCULAR HEMOGLOBIN 26.8 pg 25.6-32.2 (BEAKER) (test code = 751) MEAN CORPUSCULAR HEMOGLOBIN CONC 31.1 GM/DL 32.2-35.5 L (BEAKER) (test code = 752) RED CELL DISTRIBUTION WIDTH 12.8 % 11.7-14.4 (BEAKER) (test code = 412) PLATELET COUNT (BEAKER) (test 339 K/CU MM 150-450 code = 756) MEAN PLATELET VOLUME (BEAKER) 9.7 fL 9.4-12.3 (test code = 754) NUCLEATED RED BLOOD CELLS 0 /100 WBC 0-0 (AKER) (test code = 413) POCT-GLUCOSE [id number] 21:23:00 Test Item Value Reference Range Interpretation Comments POC-GLUCOSE METER 143 mg/dL 70-110 H : TESTED A T [facility] 6720 ([facility]) (test code = [facility], 153) [id number]: Screen Repairer Crusher/Techni herson ID = [id number] for ZOILA GAMEZ POCT-GLUCOSE [id number] 17:01:00 Test Item Value Reference Range Interpretation Comments POC-GLUCOSE METER 143 mg/dL 70-110 H : TESTED A T [place] [id number] ([facility]) (test code = [facility], 153) [address]: Screen Repairer Crusher/Techni herson ID = [id number] for ASHUTOSH SANTANA TERELL POC ACTIVATED CLOTTING [id number] 14:53:00 Test Item Value Reference Range Interpretation Comments Activated Clotting Time 257 sec : 74 -137 seconds, (test code = 441) Baseline: TESTED AT [address], [address]: Screen Repairer Crusher/Techni herson ID = [id number] for HI JORGE, CHONG [id number] 14:53:00 Test Item Value Reference Range Interpretation Comments ACTIVATED CLOTTING TIME 257 sec : 74 -137 seconds, ([facility]) (test code = Baseli ne: TESTED AT [facility]) [facility] [address] [place] [address], [address] 30: Screen Repairer Crusher/Techni herson ID = [id number] for HI JORGE, CHONG [id number] 14:12:00 Test Item Value Reference Range Interpretation Comments ACTIVATED CLOTTING TIME 235 sec : 74 -137 seconds, (BEAKER) (test code = Silvia ne: TESTED AT 441) [facility] [address] [facility], [address] 30: Screen Repairer Crusher/Techni herson ID = [id number] for CHONG IBARRA POCT-GLUCOSE [id number] 11:20:00 Test Item Value Reference Range Interpretation Comments POC-GLUCOSE METER 170 mg/dL 70-110 H : [facility] ([facility]ER[facility] (test code = [facility], 1538) [address]: Screen Repairer Crusher/Techni herson ID = [id number] for DAMARIS GREENWOODNDY POCT-GLUCOSE [id number] 08:25:00 Test Item Value Reference Range Interpretation Comments POC-GLUCOSE METER 161 mg/dL 70-110 H : TESTED A T [facility] 6720 (BEAKER) (test code = [facility], 1538) 11140: Screen Repairer Crusher/Techni herson ID = [id number] for DAMARIS GREENWOODNDY [id number] 07:44:00 Test Item Value Reference Range Interpretation Comments MAGNESIUM (BEAKER) (test code = 1.8 mg/dL 1.6-2.6 627) Screen Repairer Crusher ID - [facility]OR[facility] METABOLIC [id number] 07:44:00 Test Item Value Reference Range Interpretation Comments SODIUM (BEAKER) 134 meq/L 136-145 L (test code = 381) POTASSIUM (BEAKER) 3.6 meq/L 3.5-5.1 (test code = 379) CHLORIDE (BEAKER) 100 meq/L 98-107 (test code = 382) CO2 (BEAKER) (test 28 meq/L 22-29 code = 355) BLOOD UREA NITROGEN 12 mg/dL 7-21 (BEAKER) (test code = 354) CREATININE (BEAKER) 0.72 mg/dL 0.57-1.25 (test code = 358) GLUCOSE RANDOM 162 mg/dL 70-105 H (BEAKER) (test code = 652) CALCIUM (BEAKER) 8.2 mg/dL 8.4-10.2 L (test code = 697) EGFR (BEAKER) (test 79 mL/min/1.73 ESTIMA MARGO GFR IS code = 1092) sq m NOT ACCURATE CREATININE CLEARANCE IN PREDICTING GLOMERULAR FILTRATION RATE . ESTIMATED GFR I S NOT APPLICABLE FOR DIALYSIS PATIEN TS. Screen Repairer Crusher ID - JUN [id number] 06:52:00 Test Item Value Reference Range Interpretation Comments PARTIAL THROMBOPLASTIN TIME 83.7 seconds 22.5-36.0 H (BEAKER) (test code = 760) CBC (HEMOGRAM ONLY)2019-12-03 06:41:00 Test Item Value Reference Range Interpretation Comments WHITE BLOOD CELL COUNT (BEAKER) 9.9 K/ L 3.5-10.5 (test code = 775) RED BLOOD CELL COUNT (BEAKER) 3.41 M/ L 3.93-5.22 L (test code = 761) HEMOGLOBIN (BEAKER) (test code = 9.3 GM/DL 11.2-15.7 L 410) HEMATOCRIT (BEAKER) (test code = 29.5 % 34.1-44.9 L 411) MEAN CORPUSCULAR VOLUME (BEAKER) 86.5 fL 79.4-94.8 (test code = 753) MEAN CORPUSCULAR HEMOGLOBIN 27.3 pg 25.6-32.2 (BEAKER) (test code = 751) MEAN CORPUSCULAR HEMOGLOBIN CONC 31.5 GM/DL 32.2-35.5 L (BEAKER) (test code = 752) RED CELL DISTRIBUTION WIDTH 12.5 % 11.7-14.4 (BEAKER) (test code = 412) PLATELET COUNT (BEAKER) (test 362 K/CU MM 150-450 code = 756) MEAN PLATELET VOLUME (BEAKER) 9.7 fL 9.4-12.3 (test code = 754) NUCLEATED RED BLOOD CELLS 0 /100 WBC 0-0 (BEAKER) (test code = 413) [id number] 00:10:00 Test Item Value Reference Range Interpretation Comments PARTIAL THROMBOPLASTIN TIME 95.1 seconds 22.5-36.0 H (BEAKER) (test code = 760) POCT-GLUCOSE [id number] 21:24:00 Test Item Value Reference Range Interpretation Comments POC-GLUCOSE METER 223 mg/dL 70-110 H : TESTED A T [facility] 6720 (BEAKER) (test code = [place], 1538) [address]: Screen Repairer Crusher/Techni herson ID = [id number] for CRESENCIO BAH Vancomycin level, [id number] 19:47:00 Test Item Value Reference Range Interpretation Comments Vancomycin Tr (test code = 13.8 ug/mL 10-20 4092-3) BASIA (test code = BASIA) Screen Repairer Crusher ID - BS Lab Interpretation (test Normal code = 76083-3) [facility], [id number] 19:47:00 Test Item Value Reference Range Interpretation Comments VANCOMYCIN TROUGH (BEAKER) (test 13.8 ug/mL 10.0-20.0 code = 522) Screen Repairer Crusher ID - [id number] 17:17:00 Test Item Value Reference Range Interpretation Comments PARTIAL THROMBOPLASTIN TIME 37.4 seconds 22.5-36.0 H (BEAKER) (test code = 760) POCT-GLUCOSE [id number] 16:57:00 Test Item Value Reference Range Interpretation Comments POC-GLUCOSE METER 193 mg/dL 70-110 H : TESTED A T [employer] 67[facility] (PressPad) (test code = [employer] [place], 1538) [address]: Screen Repairer Crusher/Techni herson ID = [id number] for CHANDAN PADRON RAD, FOOT, MIN 3 VIEWS, [id number] 13:05:00Reason for exam:->s/p debridementFINAL REPORT CLINICAL HISTORY: s/p debridement TECHNIQUE: 3 views of the right foot COMPARISON: 12/01/2019 IMPRESSION: 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 There is gauze packing the soft tissue defect. The remaining bones appear intac t. Signed: Pollo Cortez MDReport Verified Date/Time: 12/02/2019 13:05:47 Reading Location: [facility] Radiology Reading Room POCT-GLUCOSE METER 2019-12-02 12:35:00 Test Item Value Reference Range Interpretation Comments POC-GLUCOSE METER 216 mg/dL 70-110 H : TESTED A T [facility] 6720 (PressPad) (test code = [facility] [employer] [facility], 1538) [address]: Screen Repairer Crusher/Techni herson ID = [id number] for FINESSE MERCEDES Arterial doppler leg, [id number] 11:50:13[facility] MKCKESSON CPACSRight Impression1. The common femoral, profunda femoral, superficial femoral and poplitealarteries are patent with mild diffuse plaque and triphasic/biphasic Dopplerwaveforms.2. The mid to distal superficial femoral artery with stent is patent withtriphasic Doppler waveforms and with the following velocities: Pre-stent: 81cm/sec, Proximal stent: 87 cm/sec, Mid stent: 74.7 cm/sec, Distal stent:72.7 cm/sec and Post stent: 64.4 cm/sec.3. 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 The proximal to mid anterior tibial artery is occluded withreconstitution of flow distally via collateral.5. The peroneal artery is patent with mild diffuse plaque and biphasicDoppler waveforms. Conclusions Summary Arterial duplex examination was [...] occluded with reconstitution of flow distally via collateral. See same day ABIexamination. Signature Velocities are measured in cm/s ; Diameters are measured in cm LE Duplex Measurements Right Left + + + + + + +----- + + + !Location ! !PSV !EDV !Waveform ! !PSV !EDV !Waveform ! + + + + + + + + + + !Mid Common Femoral ! !132 ! !Triphasic ! + + + + + + !Prox PFA ! !100 ! !Biphasic ! + + +---- + + + !Prox SFA ! !94.4 [...] + + + + + + !Prox MANUFACTURER'S SERVICE REPRESENTATIVE ! !0 ! !Absent ! + + + + + + !Mid MANUFACTURER'S SERVICE REPRESENTATIVE ! !0 ! !Absent ! + + +-- + + + !Dist MANUFACTURER'S SERVICE REPRESENTATIVE ! !0 ! !Absent ! + + [...] ! + + + + + + Interface, External Ris In - 12/02/2019 11:50 AM CDTPV LAB - Lower Extremity Arterial Duplex Demographics Patient Name DANNA ACUNA Date of Study 12/01/2019 LITA Age 74 Visit Number [id number] Gender Female Accession Number [id number] Date of 1945 Referring Suzanne Jenkins, Room Number 1019 Physician Medical Technologist Prn Chandler Alanis Interpreting Tarah Balderas Lucretia Physician ProcedureType of Study: Extremities Arteries: Lower Extremities Arterial Duplex, ARTERIAL DOPPLER LEG, RIGHT. Indications for Study:Cold toe and Gangrene toe.Patient Status:STAT.Study Location:Vascular Lab.Technical Quality:Adequate visualization.Risk FactorsHistory of Disease+ + + +!Diagnosis !Date !Comments !+-- + + +!Histor y/Risk !12/01/2019!DM2, HTN, PAD,S/P Right femoral stent placement!!Factors: ! !11/26/2019, Amputation right 3rd digit 10/31/2019!+ + + -----+ImpressionsRight Impression1. The common femoral, profunda femoral, superficial femoral and poplitealarteries are patent with mild diffuse plaque and triphasic/biphasic Dopplerwaveforms.2. The mid to distal superficial femoral artery with stent is patent withtriphasic Doppler waveforms and with the follo wing velocities: Pre-stent: 81cm/sec, Proximal stent: 87 cm/sec, Mid stent: 74.7 cm/sec, Distal stent:72.7 cm/sec and Post stent: 64.4 cm/sec.3. 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 The proximal to mid anterior tibial artery is occluded withreconstitution of flow distally via collateral.5. The peroneal artery is patent with mild diffuse plaque and biphasicDoppler waveforms. Conclusions Summary Arterial duplex examination was [...] occluded with reconstitution of flow distally via collateral. See same day TOSHIA examination. Signature Velocities are measured in cm/s ; Diameters are measured in cmLE Duplex Measurements Right Left + + + ----+ + + + + + + !Location ! !PSV !EDV !Waveform ! !PSV !EDV !Waveform ! + + + + + + + + + +!Mid Common Femoral ! !132 ! !Triphasic ! + + +------ + + + !Prox PFA ! !100 [...] + + + + + + !Prox MANUFACTURER'S SERVICE REPRESENTATIVE ! !0 ! !Absent ! + + +---- + + + !Mid MANUFACTURER'S SERVICE REPRESENTATIVE ! !0 ! !Absent ! + + + + + + !Dist MANUFACTURER'S SERVICE REPRESENTATIVE ! !0! !Absent ! + --------+ + + + + !Prox CARMEN ! [...] ! !103 ! !Biphasic ! + + +-- + + + !Dist Peroneal ! !119 ! !Biphasic ! + + + + + +[facility](Ankle/Brachial Index)2019-12-02 11:49:57[facility] ECHO HEARTLAB MKCKESSON CPACSRight Impression1. The posterior tibial artery isoccluded by imaging and dorsalis pedisartery is patent with biphasic Doppler waveforms.2. The PT pressure is 173 mmHg with an TOSHIA of 1.18 (collateral flow) and theDP pressure is 173 mmHg with an TOSHIA of1.18, within normal range.3. The great toe pressure and TBI are not obtained due to absent PPGwaveforms.4. The 1st and 2nd digits have absent flow by PPG waveforms. The 3rd digithas been amputated. The4th and 5th digits have decreased flow by PPGwaveforms.Left Impression1. The posterior tibial and dorsalis pedis arteries are patent with biphasicDoppler waveforms.2. The PT pressure is 117 mmHg with an TOSHIA of 0.80 and the DP pressure is101 mmHg with an TOSHIA of 0.69, within moderate obstruction range.3. The great toe pressure is 60 mmHg with an abnormal TBI of 0.41.4. The digits have adequate flow by PPG [...] The right 1st and 2nd digits had abs ent flow by PPG waveforms. The right 3rd [...] day lower extremity arterial duplex examination. Signature Electronically signed by Tarah Balderas MD(Interpreting physician)on 12/02/2019 11:49 AM Velocities are measured in cm/s ; Diameters are measured in cm Interface, External Ris In - 12/02/2019 11:50 AM CDTPV LAB - Lower Extremity Arterial Procedure Demographics Patient Name DANNA ACUNA Dateof Study 12/01/2019 LITA Age 74 Visit Number [id number] Gender Female Accession Number [id number] Date of 1945 Referring Suzanne Jenkins, Room Number 1019 Physician DO Medical Technologist Prn Chandler Alanis Interpreting Tarah Balderas S Physician ProcedureType of Study: Extremities Arteries: Lower Extremity Arterial Procedure, ARTERIAL (TOSHIA'S W/DOPPLER) ONLY. Indications for Study:Cold toe.Patient Status:STAT.Study Location:Vascular Lab.Technical Quality:Adequate visualization.Risk FactorsHistory of Disease+ + + --+!Diagnosis !Date !Comments !+ +--------- -+ +!History/Risk !12/01/2019!DM2, HTN, PAD,S/P Right femoral stent placement!!Factors: ! !11/26/2019, Amputation right 3rd digit 10/31/2019! + + + +Impr essionsRight Impression1. The posterior tibial artery is occluded by imaging and dorsalis pedisartery is patent with biphasic Doppler waveforms.2. The PT pressure is 173 mmHg with an TOSHIA of 1.18 (collateral flow) and theDPpressure is 173 mmHg with an TOSHIA of 1.18, within normal range.3. The great toe pressure and TBI are not obtained due to absent PPGwaveforms.4. The 1st and 2nd digits have absent flow by PPG waveforms. The 3rd digithas been amputated. The 4th and 5th digits have decreased flow by PPGwaveforms.Left Impression1. The posterior tibial and dorsalis pedis arteries are patent with biphasicDoppler waveforms.2. The PT pressure is 117 mmHg with an TOSHIA of 0.80 and the DP pressure is101 mmHg with an TOSHIA of 0.69,within moderate obstruction range.3. The great toe pressure is 60 mmHg with an abnormal TBI of 0.41.4. The digits have adequate flow by PPG [...] not obtained due to absent PPG waveforms. T he right 1st and 2nd digits had absent flow by PPG waveforms. The right 3rd digit had been amputated. The right 4th and 5th digits had decreased flow by PPG waveforms. The left TOSHIA's were within moderate obstruction range. The left posterior tibial and dorsalis pedis arteries were patent with biphasicDoppler waveforms. The left toe pressure and TBI's were within abnormal range. The left digits had adequate flow by PPG waveforms. See same day lower extremity arterial duplex examination. Signature Velocities are measured in cm/s ; Diameters are measured in cmCH[facility] POCT-GLUCOSE [id number] 09:24:00 Test Item Value Reference Range Interpretation Comments POC-GLUCOSE METER 232 mg/dL 70-110 H : TESTED A [employer] 67[facility] (PressPad) (test code = [facility], 1538) [address]: Screen Repairer Crusher/Techni herson ID = [id number] for VASHTI LINK Hemoglobin [id number] 08:08:00 Test Item Value Reference Range Interpretation Comments Hemoglobin A1C (test code = 4548-4) 10.0 % 4.3-6.1 H Lab Interpretation (test code = Abnormal 08760-0) [facility] CenterHEMOGLOBIN [id number] 08:08:00 Test Item Value Reference Range Interpretation Comments HEMOGLOBIN A1C (BEAKER) (test code = 10.0 % 4.3-6.1 H 368) POCT-GLUCOSE [id number] 05:46:00 Test Item Value Reference Range Interpretation Comments POC-GLUCOSE METER 239 mg/dL 70-110 H : TESTED A T [facility] 6720 ([employer]) (test code = [facility], 1538) [address]: Screen Repairer Crusher/Techni herson ID = [id number] for PE RALELENA, CRESENCIO HIDALGOH, [id number] 02:14:00 Test Item Value Reference Range Interpretation Comments ABO Grouping (test code = 2588) O Rh Factor (test code = 2589) POS [facility] CenterType and screen, [id number] 02:08:00 Test Item Value Reference Range Interpretation Comments ABO/RH AUTOMATED (BEAKER) (test O POSITIVE code = 2260) Ab Scrn (test code = 890-4) NEGATIVE [facility] [id number] 01:51:00 Test Item Value Reference Range Interpretation Comments MAGNESIUM (BEAKER) (test code = 1.8 mg/dL 1.6-2.6 627) Screen Repairer Crusher ID Bryant MONTOYA WBASIC METABOLIC [id number] 01:51:00 Test Item Value Reference Range Interpretation Comments SODIUM (BEAKER) 136 meq/L 136-145 (test code = 381) POTASSIUM (BEAKER) 4.3 meq/L 3.5-5.1 (test code = 379) CHLORIDE (BEAKER) 98 meq/L 98-107 (test code = 382) CO2 (BEAKER) (test 28 meq/L 22-29 code = 355) BLOOD UREA NITROGEN 14 mg/dL 7-21 (BEAKER) (test code = 354) CREATININE (BEAKER) 0.78 mg/dL 0.57-1.25 (test code = 358) GLUCOSE RANDOM 246 mg/dL 70-105 H (BEAKER) (test code = 652) CALCIUM (BEAKER) 8.4 mg/dL 8.4-10.2 (test code = 697) EGFR (BEAKER) (test 72 mL/min/1.73 ESTIMA MARGO GFR IS code = 1092) sq m NOT ACCURATE CREATININE CLEARANCE IN PREDICTING GLOMERULAR FILTRATION RATE . ESTIMATED GFR I S NOT APPLICABLE FOR DIALYSIS PATIEN TS. Screen Repairer Crusher ID - LINDSAY [id number] 01:42:00 Test Item Value Reference Range Interpretation Comments PARTIAL THROMBOPLASTIN TIME 69.8 seconds 22.5-36.0 H (BEAKER) (test code = 760) CBC (HEMOGRAM ONLY)2019-12-02 01:33:00 Test Item Value Reference Range Interpretation Comments WHITE BLOOD CELL COUNT (BEAKER) 11.9 K/ L 3.5-10.5 H (test code = 775) RED BLOOD CELL COUNT (BEAKER) 3.55 M/ L 3.93-5.22 L (test code = 761) HEMOGLOBIN (BEAKER) (test code = 9.7 GM/DL 11.2-15.7 L 410) HEMATOCRIT (BEAKER) (test code = 30.5 % 34.1-44.9 L 411) MEAN CORPUSCULAR VOLUME (BEAKER) 85.9 fL 79.4-94.8 (test code = 753) MEAN CORPUSCULAR HEMOGLOBIN 27.3 pg 25.6-32.2 (BEAKER) (test code = 751) MEAN CORPUSCULAR HEMOGLOBIN CONC 31.8 GM/DL 32.2-35.5 L (BEAKER) (test code = 752) RED CELL DISTRIBUTION WIDTH 12.6 % 11.7-14.4 (BEAKER) (test code = 412) PLATELET COUNT (BEAKER) (test 400 K/CU MM 150-450 code = 756) MEAN PLATELET VOLUME (BEAKER) 9.6 fL 9.4-12.3 (test code = 754) NUCLEATED RED BLOOD CELLS 0 /100 WBC 0-0 (BEAKER) (test code = 413) POCT-GLUCOSE [id number] 21:29:00 Test Item Value Reference Range Interpretation Comments POC-GLUCOSE METER 222 mg/dL 70-110 H : TESTED A T [facility] 6720 (BEAKER) (test code = [employer] [facility], 153) [address]: Screen Repairer Crusher/Techni herson ID = [id number] for CRESENCIO BAH [id number] 19:59:00 Test Item Value Reference Range Interpretation Comments PARTIAL THROMBOPLASTIN TIME 76.3 seconds 22.5-36.0 H (BEAKER) (test code = 760) POCT-GLUCOSE [id number] 17:25:00 Test Item Value Reference Range Interpretation Comments POC-GLUCOSE METER 259 mg/dL 70-110 H : TESTED A T [facility] 6720 (BEAKER) (test code = [facility] [employer] [facility], 153) [address]: Screen Repairer Crusher/Techni herson ID = [id number] for TH OMAS, COSHA RAD, FOOT, MIN 3 VIEWS, [id number] 15:46:00Reason for exam:->gangrene FINAL REPORT CLINICAL HISTORY: gangrene TECHNIQUE: 3 views of the right foot COMPARISON: None IMPRESSION: There is diffuse soft tissue swelling with subcutaneous emphysema in theforefoot centered around the third metatarsophalangeal joint. There is been previous amputation across the base of the third proximal phalanx. Superimposed osteomyelitis is difficult to exclude and clinical correlation is advised. Signed: Pollo Cortez MDReport Verified Date/Time: 12/01/2019 15:46:27Reading Location: [facility] Radiology Reading Room SARS-COV2/RT-PCR ([facility])2019-12-01 14:10:00 Test Item Value Reference Range Interpretation Comments SARS-COV2/RT-PCR (test Not Detected Not Detected, Negative code = 2189266) SARS-COV-[address] [facility] (test code = 0275600) Negative results do not preclude SARS-CoV-2 infection and should not be used as the sole basis for patient management decisions. Negative results must be combined with clinical observations, patient history, and epidemiological information. A false negative result may occur if a specimen is improperly collected, transported or handled.The limit of detection for this assay is 250 copies/mL.This SARS CoV-2 test is a rapid, real-time RT-PCR test intended for the qualitative detection of nucleic acid from SARS-CoV-2 in a nasopharyngeal swab specimen collected from individuals suspected of COVID-19 by their healthcare provider.This test has not been Food and Drug Administration (FDA) cleared or approved and has been authorized by FDA under an Emergency Use Authorization (EUA). This EUA will be effective until the declaration that circumstances exist justifying the authorization of the emergency use of in vitro diagnostic tests for detection and/or diagnosis of COVID-19 is terminated under Section 564(b)(2) of the Act or the EUA is revoked under Section 564(g) of the Act.Fact Sheet for Healthcare Pro viders:https://www.SYLOB.com/Documents/Xpert%20Xpress%20SARS%20CoV-2/Fact%20Sh eets/302-3802%85KDBA-PZT-1%20HEALTHCARE%20PROVIDERS%20FACT%20SHEET.pdfFact Sheet for Healthcare Patients:https://www.One [employer].com/Documents/Xpert%20Xpress%20SARS%20CoV-2/Fact%20Sheets/302-3801%20SARS-COV -2%20PATIENT%20FACT%20SHEET.pdfPerforming Laboratory:[facility] [place], [place] [id number] 12:34:00 Test Item Value Reference Range Interpretation Comments PARTIAL THROMBOPLASTIN TIME 47.2 seconds 22.5-36.0 H (BEAKER) (test code = 760) POCT-GLUCOSE [id number] 12:24:00 Test Item Value Reference Range Interpretation Comments POC-GLUCOSE METER 185 mg/dL 70-110 H : Notified RN/MD: (RICK) (test code = TESTED AT [facility] 67[address] 1538) [facility], [address]: Screen Repairer Crusher/Techni herson ID = [id number] for HOMERO VALERIO C-Reactive [id number] 06:04:00 Test Item Value Reference Range Interpretation Comments CRP (test code = 676) 13.79 mg/dL 0-0.5 H BASIA (test code = BASIA) Screen Repairer Crusher ID - PIAYA L Lab Interpretation (test Abnormal code = 82274-3) [facility] CenterCOMPREHENSIVE METABOLIC [id number] 06:04:00 Test Item Value Reference Range Interpretation Comments TOTAL PROTEIN 7.3 gm/dL 6.0-8.3 (BEAKER) (test code = 770) ALBUMIN (BEAKER) 3.1 g/dL 3.5-5.0 L (test code = 1145) ALKALINE PHOSPHATASE 112 U/L 40-150 (BEAKER) (test code = 346) BILIRUBIN TOTAL 0.8 mg/dL 0.2-1.2 (BEAKER) (test code = 377) SODIUM (BEAKER) (test 139 meq/L 136-145 code = 381) POTASSIUM (BEAKER) 3.9 meq/L 3.5-5.1 (test code = 379) CHLORIDE (BEAKER) 101 meq/L 98-107 (test code = 382) CO2 (BEAKER) (test 30 meq/L 22-29 H code = 355) BLOOD UREA NITROGEN 15 mg/dL 7-21 (BEAKER) (test code = 354) CREATININE (BEAKER) 0.82 mg/dL 0.57-1.25 (test code = 358) GLUCOSE RANDOM 233 mg/dL 70-105 H (BEAKER) (test code = 652) CALCIUM (BEAKER) 9.0 mg/dL 8.4-10.2 (test code = 697) AST (SGOT) (BEAKER) 9 U/L 5-34 (test code = 353) ALT (SGPT) (BEAKER) 9 U/L 6-55 (test code = 347) EGFR (BEAKER) (test 68 mL/min/1.73 ESTIMA MARGO GFR IS code = 1092) sq m NOT ACCURATE CREATININE CLEARANCE IN PREDICTING GLOMERULAR FILTRATION RATE . ESTIMATED GFR I S NOT APPLICABLE FOR DIALYSIS PATIEN TS. Screen Repairer Crusher BRANDEN DOUGHERTY LC-REACTIVE [id number] 06:04:00 Test Item Value Reference Range Interpretation Comments C-REACTIVE PROTEIN (BEAKER) (test 13.79 mg/dL 0.00-0.50 H code = 676) Screen Repairer Crusher BRANDEN DOUGHERTY [id number] 05:28:00 Test Item Value Reference Range Interpretation Comments PARTIAL THROMBOPLASTIN TIME 35.0 seconds 22.5-36.0 (BEAKER) (test code = 760) 6 hours after starting heparin infusion and as indicated per sliding scaleAPTT 2019-12-01 05:27:00 Test Item Value Reference Range Interpretation Comments PARTIAL THROMBOPLASTIN TIME 33.8 seconds 22.5-36.0 (BEAKER) (test code = 760) Prior to initiating heparinPROTHROMBIN TIME/[id number] 05:26:00 Test Item Value Reference Range Interpretation Comments PROTIME (BEAKER) (test code = 14.8 seconds 11.9-14.2 H 759) INR (BEAKER) (test code = 370) 1.2 <=5.9 Effective 11/13/2018: PT Reference Range ChangeNew: 11.9-14.2 Previous: 11.7- 14.7RECOMMENDED COUMADIN/WARFARIN INR THERAPY RANGESSTANDARD DOSE: 2.0-3.0 Includes: PROPHYLAXIS for venous thrombosis, systemic embolization; TREATMENT for venous thrombosis and/or pulmonary embolus.HIGH RISK: Target INR is2.5-3.5 for patients wiht mechanical heart valves.Prior to initiating heparinCBC W/PLT COUNT & AUTO [id number] 05:12:00 Test Item Value Reference Range Interpretation Comments WHITE BLOOD CELL COUNT (BEAKER) 12.6 K/ L 3.5-10.5 H (test code = 775) RED BLOOD CELL COUNT (BEAKER) 3.62 M/ L 3.93-5.22 L (test code = 761) HEMOGLOBIN (BEAKER) (test code = 10.0 GM/DL 11.2-15.7 L 410) HEMATOCRIT (BEAKER) (test code = 31.6 % 34.1-44.9 L 411) MEAN CORPUSCULAR VOLUME (BEAKER) 87.3 fL 79.4-94.8 (test code = 753) MEAN CORPUSCULAR HEMOGLOBIN 27.6 pg 25.6-32.2 (BEAKER) (test code = 751) MEAN CORPUSCULAR HEMOGLOBIN CONC 31.6 GM/DL 32.2-35.5 L (BEAKER) (test code = 752) RED CELL DISTRIBUTION WIDTH 12.5 % 11.7-14.4 (BEAKER) (test code = 412) PLATELET COUNT (BEAKER) (test 398 K/CU MM 150-450 code = 756) MEAN PLATELET VOLUME (BEAKER) 9.7 fL 9.4-12.3 (test code = 754) NUCLEATED RED BLOOD CELLS 0 /100 WBC 0-0 (BEAKER) (test code = 413) NEUTROPHILS RELATIVE PERCENT 63 % (BEAKER) (test code = 429) LYMPHOCYTES RELATIVE PERCENT 26 % (BEAKER) (test code = 430) MONOCYTES RELATIVE PERCENT 8 % (BEAKER) (test code = 431) EOSINOPHILS RELATIVE PERCENT 3 % (BEAKER) (test code = 432) BASOPHILS RELATIVE PERCENT 0 % (BEAKER) (test code = 437) NEUTROPHILS ABSOLUTE COUNT 7.94 K/ L 1.56-6.13 H (BEAKER) (test code = 670) LYMPHOCYTES ABSOLUTE COUNT 3.26 K/ L 1.18-3.74 (BEAKER) (test code = 414) MONOCYTES ABSOLUTE COUNT (BEAKER) 0.94 K/ L 0.24-0.36 H (test code = 415) EOSINOPHILS ABSOLUTE COUNT 0.36 K/ L 0.04-0.36 (BEAKER) (test code = 416) BASOPHILS ABSOLUTE COUNT (BEAKER) 0.05 K/ L 0.01-0.08 (test code = 417) IMMATURE GRANULOCYTES-RELATIVE 0 % 0-1 PERCENT (BEAKER) (test code = 3025)
--- OUTSIDE RECORDS SUMMARY | 2020-03-24 20:59 | XMS REPORT | Summary of Care ---
:1945 Author Organization [facility] [place] [address] Care Team Providers Name Role Phone Unavailable Primary Care Provider Unavailable Reason for Visit Reason Comments Follow Up wound care Encounter Details Date Type Department Care Team Description 01/28/2020 Office Visit [facility] Gabriel Silva Follow Up (wound Medicine Vascular Karlos DP care) Surgery [address] [facility] 6[address] Floor, [address] [place] [address] [place] [address] [phone] Allergies No Known Allergiesdocumented as of this encounter (statuses as of 01/28/2020) Medications Medication Sig Dispensed Refills Start Date End Date Status aspirin EC 81 MG Take 81 mg by 0 10/21/2019 Active tablet mouth. atorvastatin (LIPITOR) Take 80 mg by 0 12/30/2019 Active 80 MG tablet mouth. clopidogrel (PLAVIX) Take 75 mg by 0 10/22/2019 Active 75 MG Tablet mouth. SANTYL 250 UNIT/GM JENNIFER KANNAN THICK 0 11/06/2019 Active ointment AMOUNT TO WOUND QD UTD docusate sodium Take 100 mg by 0 12/30/2019 Active (COLACE) 100 MG mouth. capsule glipiZIDE (GLUCOTROL) Take 10 mg by 0 10/21/2019 Active 10 MG CR tablet mouth. ACCU-CHEK GUIDE 0 01/05/2020 Act yeimy hydrocodone-acetaminop Take 1 Tab by 0 10/21/2019 Active hen (NORCO) 5-325 mg mouth. tablet insulin glargine Inject 7 Units 0 12/30/2019 Active (LANTUS) 100 UNIT/ML into the skin. injection Melatonin 3 MG TABS Take 3 mg by 0 12/30/20192019 Active mouth. metformin (GLUCOPHAGE) Take 1,000 mg by 0 07/17/2019 Active 1000 MG tablet mouth. nortriptyline Take 25 mg by 0 07/17/2019 A ctive (PAMELOR) 25 MG mouth. capsule pantoprazole Take 40 mg by 0 10/22/2019 Ac tive (PROTONIX) 40 MG mouth. tablet polyethylene glycol Take 17 g by 0 10/22/2019 Active (GLYCOLAX) 17 g packet mouth. Psyllium (METAMUCIL Take 1 Packet by 0 10/22/2019 Active FIBER) 51.7 % PACK mouth. Ticagrelor 90 MG TABS Take 90 mg by 0 12/30/201905/2020 Active mouth. BRILINTA 90 MG TABS TK 1 T PO BID 0 12/31/2019 Active tramadol (ULTRAM) 50 TK 1 T PO Q 6 0 11/03/2019 Active MG tablet H PRN P zinc sulfate (ZINCATE) Take 220 mg by 0 12/31/2019 0 02/29/2020 Active 220 (50 Zn) MG capsule mouth. gabapentin (NEURONTIN) Take 1 Cap by 90 Cap 3 01/21/2020 Active 300 MG capsule mouth 3 times daily for 60 days. sodium hypochlorite Apply to 1 Bottle 2 01/28/2020 Active external solution affected area daily amoxicillin-clavulanat Take 1 Tab by 28 Tab 0 01/28/2020 Active e (AUGMENTIN) 500-125 mouth two times MG per tablet daily. documented as of this encounter (statuses as of 01/28/2020) Active Problems Not on filedocumented as of this encounter (statuses as of 01/28/2020) Immunizations Name Administration Dates Next Due Influenza [...] Sign Reading Time Taken Comments Blood Pressure 124/72 01/28/2020 10:35 AM CDT Pulse 68 01/28/2020 10:35 AM CDT Temperature - - Respiratory Rate - - Oxygen Saturation - - Inhaled Oxygen Concentration - - Weight 61.7 kg (136 lb) 01/28/2020 10:35 AM CDT Height 162.6 cm (5' 4") 01/28/2020 10:35 AM CDT Body Mass Index 23.34 01/28/2020 10:35 AM CDT documented in this encounter Patient Instructions Patient InstructionsJosseline King - 01/28/2020 10:44 AM CDTThank you for choosing [facility]. You may receive a survey in the mail. Please provide comments to let us know how we can improve our patient care. Instructions for your care: The patient will be scheduled for a skin graft Vashe wet to dry dressing applied New wound care orders given in office Gabriel Silva DPM aquaculture program director Division of Vascular Surgery and Endovascular Therapy If you have any questions, please feel free to call us at: documented in this encounter Progress Notes Gabriel Silva DPM - 01/28/2020 10:15 AM CDT Subjective: Ms. Maria Isabel Stacy is a pleasant 74 y.o. female who returns to the clinic today for follow up to jacobo JELLY R with application of graft. Chief Complaint Patient presents with Follow Up wound care . she admits to to being compliant with her local wound care consisting of use of NPWT. She has been lost to follow up however has been followed closely by home health She denies any additional complaints today. Lab Results Component Value Date HGBA1C 10.0 (H) 12/02/2019 . Physical Exam: Wound site right jacobo REAVES presents with integra matrix intact, silicone layer is loose. Thereis not any evidence of edema, erythema, purulece, probe to bone, tracking or tunneling noted. Slightmalodor is noted. The wound site is improving. Assessment/Plan: Encounter Diagnosis and Orders ICD-10-CM 1. 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 Wound site was irrigated with NS. Vashe wet to drywas applied. She was advise to d/c wound vac Begin daily dakins wet to dry dressing Will plan to schedule for split thicknes skin graft in next 2 weeks Cont WBAT Rx: Augmentin 500mg BID 2. Post-operative state Z98.890 Gabriel Silva DPM documented in this encounter Plan of Treatment Date Type Specialty Care Team Description 02/02/2020 Office Visit Vascular Surgery Giovanny Franco MD [address] [place] [address] [phone] Health Maintenance Due Date Last Done Comments COLON CANCER SCREENIN1945 COLONOSCOPY MAMMOGRAM ANNUAL 1945 TETANUS SHOT (ADULT) 1961 HEPATITIS C SCREENING 1964 ZOSTER VACCINE (1 of 2) 1996 OSTEOPOROSIS SCREENING 08/29/2011 MEDICARE IPPE (WELCOME TO 12/01/2019 MEDICARE) FLU VACCINE > 6 MONTHS 01/17/2020 03/26/2019, 04/10/2018, 03/28/2017, Additional history exists FALL SCREEN 01/20/2021 01/21/2020 PNEUMOVAX >=65 (PPSV23) Completed 04/10/2018 documented as of this encounter Results Not on filedocumented in this encounter Visit Diagnoses Diagnosis Post-operative state - Primary Other postprocedural status Status post amputation of right foot thr ough metatarsal bone (HCCode) documented in this encounter Insurance Payer Benefit Plan / Subscriber ID Effective Phone Address T ype Group Dates UNITED DUAL COMPLETE [id number] 2019-Pres [address] [address] Medicare HEALTHCARE [facility] [place] [address] MEDICAID TMHP-MEDICAID [id number] Effective for [address] dicaid - MEDICAID all dates [address] [place] [address] documented as of this encounter
--- OUTSIDE RECORDS SUMMARY | 2020-03-24 20:59 | XMS REPORT | Summary of Care ---
:1945 Author Organization [facility] [place] [address] Care Team Providers Name Role Phone Garret Don MD Primary Care Provider Reason for Referral Radiology Services (Routine) Status Reason Specialty Diagnoses / Procedures Referred By Ashok woodward Referred To Contact Pending Radiology Diagnoses PAD (peripheral artery disease) (HCCode) Mouna Thayer Us Imaging Procedures US ARTERIAL LEG RIGHT MARGO Hart [address] [facility], [place] [address] [facility] [address] [place], [place] [phone] Fax: Reason for Visit Reason Comments Post-op Follow-up Encounter Details Date Type Department Care Team Description 02/26/2020 Office Visit [facility] Gabriel Silva Pos t-op Follow-up Medicine Vascular DPM Surgery [address] [facility]. [address] 6th Floor, [address] [place] [address] [place] [address] [phone] Allergies No Known Allergiesdocumented as of this encounter (statuses as of 03/03/2020) Medications Medication Sig Dispensed Refills Start Date End Date Status aspirin EC 81 MG tablet Take 81 mg by 0 10/21/2019 Active mouth. atorvastatin (LIPITOR) Take 80 mg by 0 12/30/2019 Active 80 MG tablet mouth. clopidogrel (PLAVIX) 75 Take 75 mg by 0 10/22/2019 Active MG Tablet mouth. SANTYL 250 UNIT/GM JENNIFER KANNAN THICK 0 11/06/2019 Active ointment AMOUNT TO WOUND QD UTD docusate sodium Take 100 mg by 0 12/30/2019 Active (COLACE) 100 MG capsule mouth. glipiZIDE (GLUCOTROL) Take 10 mg by 0 10/21/2019 Active 10 MG CR tablet mouth. ACCU-CHEK GUIDE 0 01/05/2020 Act yeimy hydrocodone-acetaminoph Take 1 Tab by 0 10/21/2019 Active en (NORCO) 5-325 mg mouth. tablet insulin glargine Inject 7 Units 0 12/30/2019 Active (LANTUS) 100 UNIT/ML into the skin. injection metformin (GLUCOPHAGE) Take 1,000 mg by 0 07/17/2019 Active 1000 MG tablet mouth. nortriptyline (PAMELOR) Take 25 mg by 0 07/17/2019 Active 25 MG capsule mouth. pantoprazole (PROTONIX) Take 40 mg by 0 10/22/2019 Active 40 MG tablet mouth. polyethylene glycol Take 17 g by 0 10/22/2019 Active (GLYCOLAX) 17 g packet mouth. Psyllium (METAMUCIL Take 1 Packet by 0 10/22/2019 Active FIBER) 51.7 % PACK mouth. BRILINTA 90 MG TABS TK 1 T PO BID 0 12/31/2019 Active tramadol (ULTRAM) 50 MG TK 1 T PO Q 6 0 0 Active tablet H PRN P sodium hypochlorite Apply to affected 1 Bottle 2 01/28/2020 Active external solution area daily Additional Information Patient not taking. Reason: Therapy completed, Reported on 02/26/2020 3:01 PM amoxicillin-clavulanate Take 1 Tab by 28 Tab 0 01/28/2020 Active (AUGMENTIN) 500-125 MG per tablet mouth two times daily. gabapentin (NEURONTIN) 300 MG Take 1 Cap by 90 Cap 1 2019 Active capsule mouth 3 times 0 daily for 60 days. lisinopril (PRINIVIL, ZESTRIL) 5 Take 5 mg by 0 06/2019 Active MG tablet mouth. 1 ferrous sulfate 325 (65 Fe) MG Take 325 mg by 0 06/2019 Active tablet mouth. 1 Melatonin 3 MG TABS Take 3 mg by 0 12/30/2019 mouth. 0 Ticagrelor 90 MG TABS Take 90 mg by 0 12/30/2019 mouth. 0 zinc sulfate (ZINCATE) 220 (50 Take 220 mg by 0 12/16 Zn) MG capsule mouth. 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, with 02/26/2020 long-term current use of insulin (HCCode) documented as of this encounter (statuses as of 03/03/2020) Immunizations Name Administration Dates Next Due Influenza [...] Sign Reading Time Taken Comments Blood Pressure 119/82 02/26/2020 2:57 PM CDT Pulse 79 02/26/2020 2:57 PM CDT Temperature - - Respiratory Rate - - Oxygen Saturation - - Inhaled Oxygen Concentration - - Weight 61.2 kg (135 lb) 02/26/2020 2:57 PM CDT Height 162.6 cm (5' 4") 02/26/2020 2:57 PM CDT Body Mass Index 23.17 02/26/2020 2:57 PM CDT documented in this encounter Patient Instructions Patient InstructionsJosseline King - 02/26/2020 3:26 PM CDTThank you for choosing [facility]. You may receive a survey in the mail. Please provide comments to let us know how we can improve our patient care. Instructions for your care: Patient will follow up in 2 weeks Wound care orders given in office Gabriel Silva DPM veneer gluer Division of Vascular Surgery and Endovascular Therapy If you have any questions, please feel free to call us at: documented in this encounter Progress Notes Mouna Thayer, ANNIE - 02/26/2020 2:15 PM CDT Subjective: Maria Isabel Stacy is a 74 y.o. female that presents today for follow-up evaluation and managementof debridement and revision of R TMA and application of STSG (02/10/20 - Ricardo and Joan). she admits to to being compliant with her local wound care consisting of keeping post op site clean and dry. She denies any additional complaints today. Lab Results Component Value Date HGBA1C 10.0 (H) 12/02/2019 No new complaints. she denies any nausea, vomiting, fever, or chills. Post-operative state 02/10/2020 Surgical aftercare, skin or subcutaneous tissue 02/10/2020 Status post amputation of foot through metatarsal bone 12/18/2019 Impaired mobility and activities of daily living 12/18/2019 Uncontrolled type 2 diabetes mellitus with hyperglycemia 12/18/2019 Post-operative pain 12/18/2019 Anemia 12/18/2019 Thrombocytosis 12/18/2019 Gangrene of toe of right foot 12/01/2019 Surgical history includes amputation of right 2nd digit, debridement to level of the bone, partial 2nd and 3rd ray amputation (12/02/19 - Dolores), R angiogram, AT BAP and stent (12/03/19 - Joan), R TMA (12/05/19 - Dolores), debridement R TMA greater to the bone, with application of Integra graft (12/12/19 - Dolores), debridement and revision of R TMA and application of STSG (02/10/20 - Mora). Objective: BP 119/82 | Pulse 79 | Ht 5' 4" (1.626 m) | Wt 135 lb (61.2 kg) | BMI 23.17 kg/m General: Patient is alert, responsive, NAD Lower Ext: Derm: Post op wound site right TMA presents with coapted STSG, lj stump TMA james intact, minimal eschar and hyperkeratosis noted. There is not any evidence of edema, erythema, purulence, malodor, probe to bone, tracking or tunneling noted. The wound site is improving. Vasc: Pedal pulses are palpable bilateral lower extremity. CFT < 3 sec bilateral. Neuro: Protective threshold is not intact bilateral. Mus/Ske: Muscle strength 4/5 bilateral. Range of motion decreased to R lower extremity. L foot digital contractures. Psych: Mood normal, affect normal, concentration normal Assessment and Plan: Encounter Diagnosis and Orders ICD-10-CM 1. S/P transmetatarsal amputation of foot, right (HCCode) Z89.431 STAPLE REMOVAL 1. Post op R TMA evaluated. [place] removed. Patient tolerated well. The wound was cleaned with VASHE, sterile saline, dressed with Adaptic, 4x4 sterile gauze, webrill, and timmy bandage. Advised to continue local wound care as performed in clinic. Son will perform dressing changes. 2. Recommended ambulation to right heel and exercises to prevent equinovarus. 2. Post-operative state Z98.890 STAPLE REMOVAL 3. Encounter for post surgical wound check Z48.89 STAPLE REMOVAL 4. PAD (peripheral artery disease) (HCCode) I73.9 1. Ordered A26 R and will schedule routine vascular surveillance f/u with Dr. Franco. 5. Type 2 diabetes mellitus with diabetic neuropathic arthropathy, with long- term current use of insulin (HCCode) E11.610 1. DM education given and reinforced as previous OV. Patient verbalized understanding. Z79.4 Findings were discussed with the patient and all questions were answered. F/u 2 weeks ISAURO Scruggs [facility] Division of Vascular Surgery and Podiatry [facility] Podiatric Attending Attestation I was present for and performed the evaluation and treatment and agree with the plan and personally examined the patient with ISAURO Scruggs. I have reviewed the notes, assessments, and/or procedures performed by ISAURO Scruggs, I concur with her documentation of Mrs. Maria Isabel Stacy. Gabriel Silva DPM documented in this encounter Plan of Treatment Date Type Specialty Care Team Description 03/15/2020 Office Visit Vascular Surgery Gabriel Silva DPM [address] [place], [place] [address] [phone] 03/15/2020 Ancillary Procedure Vascular Surgery Name Type Priority Associated Diagnoses Order S chedule STAPLE REMOVAL General Supply Routine S/P transmetatarsal Orde red: 02/26/2020 amputation of foot, right (HCCode) Post-operative s dugan Encounter for post surgical wound check US ARTERIAL LEG Imaging Routine PAD (peripheral artery 1 Occurrences RIGHT disease) (HCCode) starting 0 02/26/2020 until 1 Health Maintenance Due Date Last Done Comments COLON CANCER SCREENIN1945 COLONOSCOPY TETANUS SHOT (ADULT) 1961 ANNUAL DIABETIC FOOT EXAM 1964 ANNUAL DIABETIC RETINOPATHY 1964 SCREENING HEPATITIS C SCREENING 1964 ZOSTER VACCINE (1 of 2) 1996 OSTEOPOROSIS SCREENING 08/29/2011 MEDICARE IPPE (WELCOME TO 12/01/2019 MEDICARE) FLU VACCINE > 6 MONTHS 01/17/2020 03/26/2019, 04/10/2018, 03/28/2017, Additional history exists MAMMOGRAM ANNUAL 03/07/2020 03/07/2019 FALL SCREEN 01/20/2021 01/21/2020 PNEUMOVAX >=65 (PPSV23) Completed 04/10/2018 documented as of this encounter Results Not on filedocumented in this encounter Visit Diagnoses Diagnosis S/P transmetatarsal amputation of foot, right (HCCode) - Primary Post-operative state Other postprocedural status Encounter for post surgical wound check PAD (peripheral artery disease) (HCCode) Unspecified disorders of arteries and ar terioles Type 2 diabetes mellitus with diabetic n europathic arthropathy, with long-term current use of insulin (HCCode) documented in this encounter Insurance Payer Benefit Plan / Subscriber ID Effective Phone Address T ype Group Dates UNITED DUAL COMPLETE [id number] 2019-Pres [address] [address] Medicare [facility] [place] [address] MEDICAID TMHP-MEDICAID [id number] Effective for [address] dicaid - MEDICAID all dates [id number] [place] [address] documented as of this encounter
== END 2020-03-19 19:19 | disposition home or self-care (01) ==
LOC: ER 15:25
PROC: 0U9MXZZ Drainage of Vulva, External Approach (ICD-10-PCS; principal; 2020-03-19)
DX: N76.4 Abscess of vulva (principal); E11.9 Type 2 diabetes mellitus without complications; Z79.4 Long term (current) use of insulin
CPT/HCPCS: 99284

== ENCOUNTER 2020-06-21 11:13 | Emergency (ER) | payer OTHER ==
--- OUTSIDE RECORDS SUMMARY | 2020-06-21 11:24 | XMS REPORT | Clinical Summary ---
:1945 Author Organization [facility] Address [address] [place] [address] Care Team Providers Name Role Phone Pcp, Primary Care Provider Unavailable Mushtaq Guzman Unavailable Allergies No Known Allergies Medications Medication Sig Dispensed Refills Start End Status Date Date aspirin 81 MG Take 1 tablet (81 90 tablet 3 12/31/19 Active chewable tablet mg total) by 20 mouth daily. atorvastatin Take 1 tablet (80 90 tablet 0 12/30/19 Active (LIPITOR) 80 MG mg total) by 20 tablet mouth nightly. docusate sodium Take 1 capsule 30 capsule 0 12/30/19 Active (COLACE) 100 MG (100 mg total) by 20 capsule mouth daily as needed for Constipation. insulin glargine Inject 7 Units 10 mL 0 12/30/19 Active (LANTUS) 100 subcutaneously 20 unit/mL injection nightly Use as directed . Missing or . 0 Active Non-Formulary MedicationIndicati ons: Antibiotic name unknown clopidogreL Take 75 mg by 0 10/22/19 Acti ve (PLAVIX) 75 mg mouth daily. 20 tablet collagenase Apply 1 0 11/06/19 Active (SANTYL) 250 application 20 units/g ointment topically daily Apply sergio thick amount to wound daily. glipiZIDE Take 10 mg by 0 10/21/19 Active (GLUCOTROL XL) 10 mouth daily. 20 MG 24 hr tablet HYDROcodone-acetam Take 1 tablet by 0 10/21/19 Active inophen (NORCO mouth every 6 20 5-325) 5-325 mg (six) hours as per tablet needed for Pain. nortriptyline Take 25 mg by 0 07/17/19 Ac tive (PAMELOR) 25 MG mouth daily. 20 capsule pantoprazole Take 40 mg by 0 10/22/19 Act yeimy (PROTONIX) 40 MG mouth daily. 20 tablet polyethylene Take 17 g by 0 10/22/19 Acti ve glycol (GLYCOLAX) mouth daily as 20 17 gram packet needed for Constipation. psyllium Take 1 packet by 0 10/22/19 Act yeimy (METAMUCIL FIBER mouth daily. 20 SINGLES) 3.4 gram packet sodium Apply 1 0 01/28/20 Active hypochlorite application 20 (DAKIN'S SOLUTION) topically daily. 0.25 % external solution traMADoL (ULTRAM) Take 1 tablet by 0 11/03/19 Active 50 mg tablet mouth every 6 20 (six) hours as needed for Pain. lisinopriL Take 1 tablet (5 30 tablet 0 02/17/20 Ac tive (PRINIVIL,ZESTRIL) mg total) by 20 021 5 MG tablet mouth daily. ferrous sulfate Take 1 tablet 30 tablet 0 02/17/20 Active 325 (65 FE) MG (325 mg total) by 20 021 tablet mouth daily. aspirin 81 MG Take 81 mg by 0 10/21/19 Di scontinued chewable tablet mouth daily. 20 020 ( Error) insulin glargine Inject 10 Units 0 Discontinued (LANTUS) 100 subcutaneously 020 (R eorder) unit/mL injection nightly Use as directed . clopidogreL Take 1 tablet by 0 10/21/19 D iscontinued (PLAVIX) 75 mg mouth daily. 20 020 (S top Taking at tablet Discharge) atorvastatin Take 1 tablet by 0 10/21/19 Discontinued (LIPITOR) 40 MG mouth nightly. 20 020 (Stop Taking at tablet Discharge) SANTYL 250 Apply 1 0 11/06/19 Discontin ued unit/gram ointment application 20 020 (Stop Taking at topically daily Disc harge) Andres nickel thick amount to wound QD. HYDROcodone-acetam Take 1 tablet by 0 11/01/1912/16 4/2 Discontinued inophen (NORCO mouth every 6 20 020 ( Stop Taking at 5-325) 5-325 mg (six) hours as Discharge) per tablet needed for Pain. pantoprazole Take 1 tablet by 0 10/21/19 Discontinued (PROTONIX) 40 MG mouth daily. 20 020 (Stop Taking at tablet Discharge) traMADoL (ULTRAM) Take 1 tablet by 0 11/03/1912/29 Discontinued 50 mg tablet mouth every 6 020 (St op Taking at (six) hours as Disch arge) needed for Pain. apixaban (ELIQUIS) Take 2.5 mg by 0 Discontinued 2.5 mg Tab mouth 2 (two) 020 tabletIndications: times daily. prevent thromboembolism in chronic atrial fibrillation metoprolol Take 25 mg by 0 Disco ntinued succinate mouth daily. 020 (TOPROL-XL) 25 MG 24 hr tablet furosemide (LASIX) Take 40 mg by 0 Discontinued 40 MG tablet mouth daily. 020 aspirin 81 MG Take 1 tablet (81 90 tablet 3 12/31/19 Discontinued chewable tablet mg total) by 20 020 mouth daily. atorvastatin Take 1 tablet (80 90 tablet 0 12/30/19 Discontinued (LIPITOR) 80 MG mg total) by 20 020 tablet mouth nightly. insulin glargine Inject 7 Units 10 mL 0 12/30/19 Discontinued (LANTUS) 100 subcutaneously 20 020 (R eorder) unit/mL injection nightly Use as directed . ascorbic acid, Take 1 tablet 120 tablet 0 12/30/19 Discontinued vitamin C, (500 mg total) by 20 020 (VITAMIN C) 500 MG mouth 2 (two) tablet times daily for 60 days. docusate sodium Take 1 capsule 30 capsule 0 12/30/19 Discontinued (COLACE) 100 MG (100 mg total) by 20 020 capsule mouth daily as needed for Constipation. gabapentin Take 1 capsule 180 capsule 0 12/30/19 Di scontinued (NEURONTIN) 300 MG (300 mg total) by 20 020 capsule mouth 3 (three) times daily for 60 days. melatonin 3 mg Tab Take 1 tablet (3 60 tablet 0 12/30/1912/16 4/2 Discontinued tablet mg total) by 20 020 mouth nightly for 60 days. metFORMIN Take 1 tablet 120 tablet 0 12/30/19 Disco ntinued (GLUCOPHAGE) 500 (500 mg total) by 20 020 MG tablet mouth 2 (two) times daily with breakfast and dinner for 60 days. multivitamin Take 1 tablet by 60 tablet 0 12/31/19 Discontinued (THERAGRAN) tablet mouth daily for 20 020 60 days. polyethylene Take 17 g by 14 each 0 12/29/ Disc ontinued glycol (GLYCOLAX) mouth daily as 20 020 17 gram packet needed (constipation). ticagrelor Take 1 tablet (90 120 tablet 0 12/30/19 Discontinued (BRILINTA) 90 mg mg total) by 20 020 Tab tablet mouth 2 (two) times daily for 60 days. zinc sulfate Take 1 capsule 60 capsule 0 12/31/19 D iscontinued (ZINCATE) 220 (50) (220 mg total) by 20 020 mg capsule mouth daily for 60 days. ascorbic acid, Take 1 tablet 120 tablet 0 12/30/19 Discontinued vitamin C, (500 mg total) by 20 020 (VITAMIN C) 500 MG mouth 2 (two) tablet times daily for 60 days. ascorbic acid, Take 1 tablet 120 tablet 0 12/30/19 vitamin C, (500 mg total) by 20 020 (VITAMIN C) 500 MG mouth 2 (two) tablet times daily for 60 days. gabapentin Take 1 capsule 180 capsule 0 12/30/19 Ex pired (NEURONTIN) 300 MG (300 mg total) by 20 020 capsule mouth 3 (three) times daily for 60 days. melatonin 3 mg Tab Take 1 tablet (3 60 tablet 0 12/30/1902/16 2/2 tablet mg total) by 20 020 mouth nightly for 60 days. metFORMIN Take 1 tablet 120 tablet 0 12/30/19 Expir ed (GLUCOPHAGE) 500 (500 mg total) by 20 020 MG tablet mouth 2 (two) times daily with breakfast and dinner for 60 days. multivitamin Take 1 tablet by 60 tablet 0 12/31/19 (THERAGRAN) tablet mouth daily for 20 020 60 days. polyethylene Take 17 g by 14 each 0 12/29/ Disc ontinued glycol (GLYCOLAX) mouth daily as 20 020 (Error) 17 gram packet needed (constipation). ticagrelor Take 1 tablet (90 120 tablet 0 12/30/19 (BRILINTA) 90 mg mg total) by 20 020 Tab tablet mouth 2 (two) times daily for 60 days. zinc sulfate Take 1 capsule 60 capsule 0 12/31/19 E xpired (ZINCATE) 220 (50) (220 mg total) by 20 020 mg capsule mouth daily for 60 days. 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); MD Job Surgical afterc are, skin or [...] Mouna Hart disease (Prima ry Dx) 01/21/2020 [facility] Physical Medicine and Jason Haas MD Encounter Rehabilitation 12/19/2019 Travel 12/18/2019 [facility] Physical Medicine and Zelda, Anemia , unspecified type; - Encounter Rehabilitation MD Pat Impaired mobi lity and activities of daily living; 12/31/2019 Post-operative pain; 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 ([facility]); Thrombocytosis ([facility]); Uncontrolled ty pe 2 diabetes mellitus with hyperglycemia ([facility]); Constipation, u nspecified constipation type; At risk for imp airment of sleep; Gangrene of toe of right foot ([facility]); Adjustment diso rder with other symptom; Flexor tenosyno vitis of finger; Diarrhea, unspe cified type; Type 2 diabetes mellitus with diabetic peripheral angiopathy and gangrene, with long-term current use of insulin ([facility]) 12/12/2019 Anesthesia Event Pollo Rosas Jr., MD Ware, Chandra Ann, [employer] FINISHER 12/12/2019 Surgery Lepow, Gabriel DEBRIDEMENT/I&D ,WOUND Karlos, DPM EXTREMITY LOWER 12/05/2019 Anesthesia Event Brandin Martinez MD Brasher, Kiel Steven, [employer] FINISHER 12/05/2019 Surgery Lepow, Gabriel AMPUTATION,FOOT Karlos, DPM 12/05/2019 Orders Only General Internal Medicine 12/03/2019 Surgery Giovanny Franco / MD Lionel AORTOGRAM 12/02/2019 Anesthesia Event Brandin Martinez MD Osborne, Toni Rose [facility], [employer] FINISHER 12/02/2019 Surgery Lepow, Gabriel AMPUTATION,TOE Karlos, DPM 12/01/2019 [facility] Cardiology Dereje Hardwick Gangrene of t oe of right foot ([facility]); - Encounter MD Lucretia 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; 12/18/2019 Suzanne Jenkins Uncontrolled type 2 DM with peripheral circulatory disorder ([facility]); MD Austen Essential hypererythropoietinemia; Rigoberto Barbosa opi oid-induced constipation (OIC); [place] PAD (peripheral artery disease) ([facility]); MD Wade Impaired mobility and ADLs; Noreen Grover Pelvic mass; MD Rich Diabetic foot ( [facility]); Soni osteomy elitis, acute ([facility]) 12/01/2019 Travel after 06/21/2019 Family History Medical History Relation Name Comments [...] Assigned at Date Recorded Not on file Last Filed Vital Signs Vital Sign Reading Time Taken Comments Blood Pressure 162/74 02/17/2020 1:00 PM CDT Pulse 69 02/17/2020 1:00 PM CDT Temperature 35.8 C (96.4 F) 02/17/2020 1:00 PM CDT Respiratory Rate 18 02/17/2020 1:00 PM CDT Oxygen Saturation 100% 02/17/2020 1:00 PM CDT Inhaled Oxygen Concentration - - Weight 56.2 kg (123 lb 14.4 oz) 02/10/2020 11:43 AM CDT Height 162.6 cm (5' 4") [...] exists HEMOGLOBIN A1C 03/03/2020 12/02/2019 PNEUMOCOCCAL 65+ YRS Completed 04/10/2018, 03/28/2017 Implants Implanted Type Area Fitness Assistant Device Identifier Shelf Model / Expiration Serial / Date Lot Stent Synergy Otw [id number] - [id number] IMPLAN TS Right: [place] [id number] 03/03/2021 [id number] / Implanted: Qty: 1 on 12/03/2019 by Giovanny Jean MD at [facility] Leg SCI:INTERV / CARDIOLOGY [id number] Description:Right AT artery Stent Synergy Otw [id number] - [id number] IMPLAN TS Right: [place] [id number] 03/03/2021 [id number] / Implanted: Qty: 1 on 12/03/2019 by Giovanny Jean MD at [facility] Leg SCI:INTERV / CARDIOLOGY [id number] Description:Right AT artery Mesh Mtrx Wnd Bilyr 10x12.5sq [id number] - [id number] IMPLANTS Rig ht: Foot [employer] [id number] 07/18/2021 [id number] / Implanted: Qty: 1 on 12/12/2019 by Gabriel Silva DPM at [facility] [employer] / [id number] Allogrft Corplex P 4ml [id number] - [id number] IMPLANTS Right: Leg [employer] 07/19/2022 [id number] / Implanted: Qty: 1 on 02/10/2020 by Giovanny Jean MD at [facility] / [id number] Procedures Procedure Name Priority Date/Time Associated [...] n the results section. SKIN GRAFT,SPLIT 02/10/2020 2:50 Non-healing THICKNESS-LOWER PM CDT surgical wound, EXTREMITY initial encounter Case Notes [address] SILVA60 MINS FOR MONTEROPATIENT ISN'T A DIALYSIS PATIENT Special Needs (PULSE LAVAGE, VERSA JET) SKIN GRAFT,SPLIT 02/10/2020 2:50 PM CDT Non-healing s urgical THICKNESS-LOWER EXTREMITY wound, initial encounter Case Notes [address] SILVA60 MINS FOR MONTEROPATIENT ISN'T A DIALYSIS PATIENT Special Needs (PULSE LAVAGE, VERSA JET) DEBRIDEMENT/I&D,WOUND EXTREMITY 02/10/2020 2:50 PM CD T Non-healing surgical LOWER wound, initial encounter Case Notes [address] SILVA60 MINS FOR MONTEROPATIENT ISN'T A DIALYSIS PATIENT Special Needs (PULSE [...] are i n the results section. SARS-COV2/RT-PCR ([facility] Routine 02/06/2020 11:36 AM Screening [...] n the results section. SKIN GRAFT,SKIN 12/12/2019 11:34 AM Non-healing SUBSTITUTE CDT surgical wound, initial encounter Case Notes 90 MINS PER RACHELOKAYED BY September TO MOVE TO ROOM 5/[facility] 12/08 @ 0931 Special Needs (PULSE LAVAGE, VERSA JET)alexis cked by MS DEBRIDEMENT/I&D,WOUND EXTREMITY 12/12/2019 11:34 AM CD T Non-healing surgical LOWER wound, initial encounter Case Notes 90 MINS PER RACHELOKAYED BY September TO MOVE TO ROOM 5/[facility] 12/08 @ 0931 Special Needs (PULSE LAVAGE, [...] i n the results section. DEBRIDEMENT/I&D,WOUND 12/05/2019 11:34 AM Non-healing EXTREMITY LOWER CDT surgical wound, initial encounter Case Notes 2HRS Special Needs (PULSE LAVAGE, VERSA JET) AMPUTATION,FOOT 12/05/2019 11:34 AM CDT Non-healing winston rgical wound, initial encounter Case Notes 2HRS Special Needs (PULSE LAVAGE, VERSA JET) ECG 12-LEAD Routine 12/05/2019 9:28 AM CDT Procedure Note - Interface, External Ris In - 12/05/2019 9:34 AM CDT Ventricular Rate 80 BPM Atrial Rate 80 BPM P-R Interval 160 ms QRS Duration 86 ms Q-T Interval 418 ms QTC Calculation(Bazett) 482 ms P [place] 0 degrees R [place] 14 degrees T [place] 36 degrees Sinus rhythm with occasional Premature [...] the results section. PERIPHERAL ANGIOS / 12/03/2019 12:38 PM Gangrene (HCC) AORTOGRAM CDT Case Notes [...] are in the results section. DEBRIDEMENT/I&D,WOUND 12/02/2019 7:23 AM Gangrene of right EXTREMITY LOWER CDT foot (HCC) Case Notes 1.5 HRS Special Needs (PULSE LAVAGE, VERSA JET) AMPUTATION,TOE 12/02/2019 7:23 AM CDT Gangrene of rig ht foot [...] i n the results section . after 06/21/2019 Results POC-Glucose meter (02/17/2020 12:55 PM CDT)Only the most recent of149 results within the time period is included. POC-Glucose Meter 200 (H)Comment: 70 - 110 mg/dL [facility] : TESTED AT [facility] [address] [place] [address], [id number]: [employer] Furnace Operator/Technic kimber ID = [id number] for VLADARISTEO Specimen Blood Performing Organization Address City/State/Zipcode Phone Number [address] [phone] CENTER CBC with platelet count + automated diff (02/15/2020 4:24 AM CDT)Only the most recent of7 resultswithin the time period is included. Pathologist Sig nature WBC 11.1 (H) 3.5 - 10.5 [facility] K/L [facility] RBC 4.12 3.93 - 5.22 [facility] M/L [facility] Hemoglobin 11.5 11.2 - 15.7 [facility] GM/DL [facility] Hematocrit 36.2 34.1 - 44.9 % [facility] MCV 87.9 79.4 - 94.8 fL [facility] MCH 27.9 25.6 - 32.2 pg [facility] MCHC 31.8 (L) 32.2 - 35.5 [facility] GM/DL [facility] RDW 14.2 11.7 - 14.4 % [facility] Platelets 298 150 - 450 K/CU [facility] MPV 9.2 (L) 9.4 - 12.3 fL [facility] nRBC 0 0 - 0 /100 WBC [facility] % Neutros 51 % [facility] % Lymphs 38 % [facility] % Monos 7 % [facility] % Eos 4 % [facility] % Baso 0 % [facility] # Neutros 5.63 1.56 - 6.13 [facility] # Lymphs 4.22 (H) 1.18 - 3.74 [facility] # Monos 0.76 (H) 0.24 - 0.36 [facility] # Eos 0.39 (H) 0.04 - 0.36 [facility] # Baso 0.03 0.01 - 0.08 [facility] Immature 0 0 - 1 % [facility] Granulocytes-Relative [facility] Specimen Blood Performing Organization Address City/State/Zipcode Phone Number [facility] [address] [place] [address] CENTER Prothrombin time/INR (02/12/2020 8:32 AM CDT)Only the most recent of2 results within the time period is included. Pathologist Sig nature Protime 14.1 11.9 - 14.2 seconds [facility] INR 1.12 <=5.90 [facility] Specimen Blood Narrative Performed At Effective 11/13/2018: PT Reference Range [facility] Change New: 11.9-14.2 Previous: 11.7-14.7 RECOMMENDED COUMADIN/WARFARIN INR THERAPY RANGES STANDARD DOSE: 2.0-3.0 Includes: PROPHYLAXIS for venous thrombosis, systemic embolization; TREATMENT for venous thrombosis and/or pulmonary embolus. HIGH RISK: Target INR is 2.5-3.5 for patients wiht mechanical heart valves. Performing Organization Address City/State/Zipcode Phone Number [facility] [address] [place] [address] CENTER Comprehensive metabolic panel (02/12/2020 8:32 AM CDT)Only the most recent of4 resultswithin the time period is included. Protein, Total 6.5 6.0 - 8.3 [facility] gm/dL [facility] Albumin 3.3 (L) 3.5 - 5.0 [facility] g/dL [facility] Alkaline 91 40 - 150 U/L [facility] Phosphatase [facility] Total Bilirubin 0.8 0.2 - 1.2 [facility] mg/dL [facility] Sodium 136 136 - 145 [facility] meq/L [facility] Potassium 4.1 3.5 - 5.1 [facility] meq/L [facility] Chloride 105 98 - 107 [facility] meq/L [facility] CO2 24 22 - 29 meq/L [facility] BUN 12 7 - 21 mg/dL [facility] Creatinine 0.73 0.57 - 1.25 [facility] mg/dL [facility] Glucose 125 (H) 70 - 105 [facility] mg/dL [facility] Calcium 8.3 (L) 8.4 - 10.2 [facility] mg/dL [facility] AST 24 5 - 34 U/L [facility] ALT 22 6 - 55 U/L [facility] EGFR 78Comment: mL/min/1.73 [facility] ESTIMATED GFR IS sq m [facility] NOT ACCURATE [facility] CREATININE CLEARANCE IN PREDICTING GLOMERULAR FILTRATION RATE. ESTIMATED GFR IS NOT APPLICABLE FOR DIALYSIS PATIENTS. Specimen Blood Narrative Performed At Batch And Furnace Operator ID - [id number] Performing Organization Address City/[facility]/Zipcode Phone Number [facility] [address] [place] [address] [place] CBC (Hemogram only) (02/11/2020 11:16 AM CDT)Only the most recent of20 results within the time period is included. Pathologist Sig nature WBC 6.2 3.5 - 10.5 K/L [facility] RBC 3.90 (L) 3.93 - 5.22 M/L [facility] Hemoglobin 11.1 (L) 11.2 - 15.7 GM/DL [facility] Hematocrit 34.3 34.1 - 44.9 % [facility] MCV 87.9 79.4 - 94.8 fL [facility] MCH 28.5 25.6 - 32.2 pg [facility] MCHC 32.4 32.2 - 35.5 GM/DL [facility] RDW 14.7 (H) 11.7 - 14.4 % [facility] Platelets 262 150 - 450 K/CU MM [facility] MPV 9.8 9.4 - 12.3 fL [facility] nRBC 0 0 - 0 /100 WBC [facility] Specimen Blood Performing Organization Address City/[facility]/Zipcode Phone Number [facility] [address] [place] [address] CENTER Basic Metabolic Panel (02/11/2020 11:16 AM CDT)Only the most recent of22 results within the time period is included. Sodium 137 136 - 145 meq/L [facility] Potassium 3.9 3.5 - 5.1 meq/L [facility] Chloride 105 98 - 107 meq/L [facility] CO2 25 22 - 29 meq/L [facility] BUN 10 7 - 21 mg/dL [facility] Creatinine 0.71 0.57 - 1.25 [facility] mg/dL [facility] Glucose 121 (H) 70 - 105 mg/dL [facility] Calcium 8.4 8.4 - 10.2 [facility] mg/dL [facility] EGFR 81Comment: ESTIMATED mL/min/1.73 sq [facility] GFR IS NOT m [facility]URATE [place] CREATININE CLEARANCE IN PREDICTING GLOMERULAR FILTRATION RATE. ESTIMATED GFR IS NOT APPLICABLE FOR DIALYSIS PATIENTS. Specimen Blood Narrative Performed At Batch And Furnace Operator ID - JORGE ALBERTO Pulido [facility] Performing Organization Address City/[facility]/Zipcode Phone Number [address] [address] CENTER Vitamin B12 and Folate (02/10/2020 11:13 PM CDT) Pathologist Sig nature Vitamin B12 521 213 - 816 pg/mL [facility] Folate 18.00 >=7.00 ng/mL [facility] Specimen Blood Narrative Performed At Batch And Furnace Operator ID - JESUS [facility] Performing Organization Address City/[facility] Phone Number [address] [address] CENTER Iron, TIBC, % sat. (without ferritin) (02/10/2020 11:13 PM CDT) Pathologist Sig nature Iron 24.0 (L) 40.0 - 160.0 [facility] ug/dL [facility] TIBC 253 250 - 450 ug/dL [facility] Iron % Saturation 9 (L) 20 - 55 % [facility] Specimen Blood Narrative Performed At Batch And Furnace Operator ID - PIAYA L [facility] Performing Organization Address City/State/Zipcode Phone Number MOI HARD[facility] [address] [place] [address] CENTER SARS-CoV2/RT-PCR ([facility] Ref Labs) (02/06/2020 11:36 AM CDT)Only the most recent of2 resultswithin the time period is included. SARS-COV2/RT-PCR Negative Not Detected, [facility] ST MOMIN Negative, See [facility] external report CENTER for linked test SARS-COV-2 [facility] NOE [facility] PERFORMING LAB [facility] Specimen Other - Nasopharyngeal wall structure (b nitin structure) Narrative Performed At Negative result for this test determines that [facility] SARS-CoV-2 RNA was not present in the [...] the Act. Fact Sheet for Healthcare Providers: https://www.Beabloo/sites/default/files/pro duct/documents/Fact_Sheet_HC_Providers_Lyra_SA RS-CoV-2.pdf Fact Sheet for Healthcare Patients: https://www.Beabl[employer]/sites/default/files/pro duct/documents/Fact_Sheet_Patients_Lyra_SARS-C oV-2.pdf Performing Laboratory: [address] [place] [address] Performing Organization Address City/State/Zipcode Phone Number [address] [address] CENTER Hemoglobin (02/06/2020 11:36 AM CDT) Pathologist [facility] Hemoglobin 12.0 11.2 - 15.7 GM/DL [facility] Specimen Blood - Entire left upper arm (body stru cture) Narrative Performed At Batch And Furnace Operator ID - [id number] [facility] Performing Organization Address City/State/Zipcode Phone Number [address] [address] CENTER Venous doppler arm, left (12/29/2019 4:30 PM CDT) Specimen Narrative Performed At Addendum [facility] [employer] [facility] REPORT STATUS:A Doppler ultrasound of the left upper e xtremity dated 12/29/2019 Comment: Color Doppler and spectral anal ysis of the left upper extremity were obtained. The left jugular vein, subclavian, axill jose g, brachial, basilic, and cephalic veins are patent without thromb us. Impression: No deep venous thrombosis in the left upper extremity. Signed: Deann Berg MD Report Verified Date/Time: 12/30/2019 13:49:05 Reading Location: [facility] B1 C013Y CT Body R eading Room Addendum Ends FINAL REPORT Doppler ultrasound of the left lower e xtremity dated 12/29/2019 Comment: Color Doppler and spectral [...] Deann Berg MD Report Verified Date/Time: 12/29/2019 18:22:22 Reading Location: [facility] [id number] Consult R [facility] Procedure Note Interface, External Ris In - [...] Verified Date/Time: 12/30/2019 1 3:49:05 Reading Location: [facility] C013Y CT Body R eading Room Addendum [...] Verified Date/Time: 12/29/2019 1 8:22:22 Reading Location: [facility] C013W Consult R [facility] Performing Organization Address City/State/Zipcode Phone Number RIS RHYTHM STRIP - SCAN [...] of18 resultswithin the time period is included. Pathologist Sig nature Magnesium 2.0 1.6 - 2.6 mg/dL [facility] AIR Specimen Blood - Peripherally inserted central ca theter (physical object) Performing Organization Address [facility] Phone Number [facility] [address] [place] [address] XR chest 1 view portable / bedside (12/16/2019 2:48 PM CDT) Specimen Narrative Performed At FINAL REPORT [facility] CLINICAL HISTORY:RIGHT PICC LINE TIP [place] IFICATION TECHNIQUE: 1 view of the chest. COMPARISON: None IMPRESSION: The tip of the right PICC line is near t he cavoatrial junction. There are no focal infiltrates or effusions. T he cardiomediastinal silhouette is magnified by technique. Th ere is a right humeral head suture anchor. Signed: Pollo Haas MD Report Verified Date/Time: 12/16/2019 15:53:59 Reading [facility] Procedure Note Interface, External Ris [...] Verified Date/Time: 12/16/2019 1 5:53:59 Reading Location: [facility] [employer] [facility] Performing Organization Address City/[facility]/Zipcode Phone Number [facility] AFB culture + smear (non-sputum) (12/12/2019 12:11 PM CDT)Only the most recent of3 resultswithin the time period is included. Pathologist Sig nature Result No acid-fast bacilli [facility] isolated in [address] [facility] AFB Smear No acid fast bacilli [facility] seen [facility] Specimen Tissue - Structure of right foot (body s tructure) Performing Organization Address [facility] Phone Number [address] [address] CENTER Anaerobic culture (12/12/2019 12:11 PM CDT)Only the most recent of3 results within the time period is included. Pathologist Sig nature Result No anaerobes isolated [facility] Specimen Tissue - Structure of right foot (body s tructure) Performing Organization Address [facility] Phone Number [address] [address] [place] Surgically obtained culture + gram stain (12/12/2019 12:11 PM CDT)Only the most recent of3 resultswithin the time period is included. Result No growth [facility] Gram Stain Result <1+ White blood [facility] cells seen [facility] Gram Stain Result No organisms seen [facility] Specimen Tissue - Structure of right foot (body s tructure) Performing Organization Address [facility] Phone Number [address] [address] CENTER Fungus culture + smear (12/12/2019 12:11 PM CDT)Only the most recent of3 resultswithin the time period is included. Pathologist Sig nature Result No fungus isolated [facility] in [address] [facility] Fungus Smear <1+ budding yeast [facility] Specimen Tissue - Structure of right foot (body s tructure) Performing Organization Address [facility] Phone Number [address] [address] CENTER SPIN/CONCENTRATION CHARGE (12/12/2019 12:11 PM CDT)Only the most recent of2 resultswithin the time period is included. Pathologist Sig nature Concentration charged Done [facility] Specimen Tissue - Structure of right foot (body s tructure) Performing Organization Address City/State/Zipcode Phone Number [facility] [address] [place] [address] CENTER XR foot 3 views right (12/05/2019 3:32 PM CDT)Only the most recent of3 results within the time period is included. Specimen Narrative Performed At FINAL REPORT GE RIS TECHNIQUE: Frontal, lateral, and oblique radiographs of [...] Abdoul Barbosa MD Report Verified Date/Time: 12/05/2019 16:43:31 Reading Location: [address] Radiolog y Reading Room Procedure Note Interface, [...] Verified Date/Time: 12/05/2019 1 6:43:31 Reading Location: [address] Radiolog y Reading Room Performing Organization Address City/State/Zipcode Phone Number GE RIS Tissue Exam (12/05/2019 1:01 PM CDT)Only the most recent of2 resultswithin the time period is included. Case Report Surgical Pathology Report Case: [id number] [facility] Authorizing Provider: Gabriel Joseph DPM Collected: 12/05/2019 01:01 PM [facility] Ordering Location: [facility] PERIOPERATIVE Received: 12/05/2019 01:40 PM [facility] Pathologist: Naresh Tillman MD Specimen: Foot, Right, right foot amputation DIAGNOSIS RIGHT FOOT, TRANSMETATARSAL AMPUTATION: C [facility] Electronically - SKIN AND SOFT TISSUE WITH ACUTE INFLAMMATI ON AND ABSCESS FORMATION, [facility] signed by Layne, AND [facility] MD Naresh on - SKIN AND SOFT TISSUE RESECTION MARGIN, INVOLVED BY ABSCESS FORMATION 12/15/2019 at 6:37 - BONE RESECTION MARGIN WITH FEATURES OF ACUTE OST EOMYELITIS PM Signing Pathologist Direct Phone Line: CPT Code(s) 10141, [address] [facility] CLINICAL HISTORY Non-healing surgical wound, initial encounter [ [id number]] [facility] [address], [address], [address], [address] [facility] SPECIMEN SOURCE Foot, right [facility] GROSS DESCRIPTION Received in formalin labeled with the patient's name, accession number and "right foot" is a 10.3 x 7.5 x 4.3 cm right transmetatarsal amputation displaying digits 1, 4-5. The skin is shabazz-pink and disp [facility] lays a 5.0 x 2.8 cm shabazz ulce rated lesion at the previous site of amputation that is involving the lateral aspect of the first digit and medial aspect of the fourth digit, and is less than 0.1 cm from [facility] e skin and soft tissue guerda n (inked blue). The underlying affected bone is shabazz-yellow, trabeculated and firm. Visual Education Director sections are submitted as follows: MEDICAL CENTER Section code A1-lesion and skin and soft tissue margin en face A2-A3-bone margin following decalcification A4-skin lesion A5-skin lesion and underlying affected bone following decalcification SHARON Leon (ASCP)cm MICROSCOPIC Performed. [facility] Specimen Tissue - Structure of right foot (body s tructure) Performing Organization Address City/[facility]/Zipcode Phone Number [facility] MEDICAL [address] [place] [address] CENTER ECG 12 lead (12/05/2019 9:28 AM CDT) Specimen Narrative Performed At Ventricular Rate 80 BPM GE MUSE Atrial Rate 80 BPM P-R Interval 160 ms QRS Duration 86 ms Q-T Interval 418 ms QTC Calculation(Bazett) 482 ms P [place] 0 degrees R [place] 14 degrees T [place] 36 degrees Sinus rhythm with occasional Premature ventricular com plexes and Premature atrial complexes Otherwise normal ECG No previous ECGs available Confirmed by MD Spence Mahboob ([id number]) on 12/06/2019 8:4 5:22 AM Procedure Note Interface, External Ris In - 12/06/2019 8:45 AM CDT Ventricular Rate 80 BPM Atrial Rate 80 BPM P-R Interval 160 ms QRS Duration 86 ms Q-T Interval 418 ms QTC Calculation(Bazett) 482 ms P [place] 0 degrees R [place] 14 degrees T [place] 36 degrees Sinus rhythm with occasional Premature v entricular complexes and Premature atrial complexes Otherwise normal ECG No previous ECGs available Confirmed by MD Spence Mahboob ([id number]) on 12/06/2019 8:45:22 AM Performing Organization Address [facility] Phone Number [employer] MUSE Platelet Aggregation: Drug Effect (12/04/2019 6:30 AM CDT) Arachadonic Acid 75 63 - 89 % [facility] MEDICAL [place] Interpretation Normal arachidonic [facility] acid and ADP [facility] results. No MEDICAL CENTER [id number] or aspirin-like drug effect. Pathologist: Arnav Rouse [facility] [place] ([facility] signature) MEDICAL CENTER Platelets 349 150 - 450 [facility] K/CU [facility] ADP 74 62 - 100 % [facility] Platelet Rich Plasma 290 200 - 300 [facility] k/cu [facility] Specimen Blood Narrative Performed At Platelet function studies by aggregation [facility] methodology on samples with platelet count <75,000/CU MM are unreliable; platelet function assessment should not be based on a single test. Batch And Furnace Operator ID - [id number] Performing Organization Address [facility] Phone Number [address] [phone] [place] aPTT (12/04/2019 6:30 AM CDT)Only the most recent of9 resultswithin the time period is included. Pathologist Sig nature PTT 37.4 (H) 22.5 - 36.0 seconds [facility] Specimen Blood Performing Organization Address [facility] Phone Number [address] [phone] [place] Blood Culture - Routine (Left Venipuncture) (12/03/2019 6:44 PM CDT)Only the most recent of4 resultswithin the time period is included. Pathologist Sig nature Result No growth in 5 days [facility] Specimen Blood - Entire left upper arm (body stru cture) Performing Organization Address [facility] Phone Number [address] [phone] [place] TRANSFUSION SERVICE REPORT - SCAN (12/03/2019 6:00 PM CDT) Narrative Performed At This result has an attachment that is no t available. POC ACTIVATED CLOTTING TIME (12/03/2019 2:35 PM CDT)Only the most recent of2 resultswithin the time period is included. Activated Clotting 257Comment: : sec [facility] Time 74-137 seconds, [facility] Baseline: TESTED CENTER AT [address], [id number]: Batch And Furnace Operator/Technici an ID = [id number] for CHONG BARRIOS Specimen Blood Performing Organization Address City/[facility] Phone Number [address] [address] CENTER Vancomycin level, trough (12/02/2019 7:09 PM CDT) Pathologist Sig nature Vancomycin Tr 13.8 10.0 - 20.0 ug/mL [facility] Specimen Blood Narrative Performed At Batch And Furnace Operator ID - BS [facility] MED ICAL CENTER Performing Organization Address City/[facility]/Zipcode Phone Number [address] [address] CENTER ABORH, manual (12/02/2019 1:36 AM CDT) Pathologist Sig nature ABO Grouping O [facility] Factor POS [facility] Specimen Blood Performing Organization Address [facility] Phone Number [address] [address] Type and screen, automated (12/02/2019 1:16 AM CDT) Pathologist Sig nature ABO/RH AUTOMATED O POSITIVE [facility] Ab Scrn NEGATIVE [facility] Specimen Blood Performing Organization Address [facility] Phone Number [address] [address] Hemoglobin A1c (12/02/2019 1:16 AM CDT) Pathologist Sig nature Hemoglobin A1C 10.0 (H) 4.3 - 6.1 % [facility] Specimen Blood Performing Organization Address [facility] Phone Number [address] [address] CENTER TOSHIA's Only(Ankle/Brachial Index) (12/01/2019 9:45 AM CDT) Pathologist Sig nature Ejection Fraction [facility]ART[facility] CPACS Specimen Impressions Performed At [facility] 1. 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 Indications for Study:Cold toe. Patient Status:STAT. Study Location:Vascular Lab. Technical Quality:Adequate visualization . Risk Factors History of Disease + + + + !Diagnosis !Date !Comments ! + + + + !History/Risk !12/01/2019!DM2, HTN, PAD,S/P Right femoral stent placement! !Factors: ! !11/26/2019, Amputation right 3rd digit 10/31/2019! + + + + Procedure Note Interface, External Ris In - 12/02/2019 11:50 AM CDT PV LAB - Lower Extremity Arterial Procedure Demographics Patient Name DANNA STACY of Study 12/01/2019 LITA Ag e 74 Visit Number [id number] Ge nder Female Accession Number [id number] Da te of 1945 Referring Susanna Cross om Number [id number] Physician DO Power Shovel Operator Helper Chandler Alanis In terpreting MONAE Shelton Ph [...] cm Performing Organization Address City/State/Zipcode Phone Number [facility]ART[facility] Arterial doppler leg, right (12/01/2019 9:20 AM CDT) [facility] nature Ejection Fraction [facility] Specimen Impressions Performed At [facility] Impression [facility] 1. The common femoral, profunda femoral, superficial [...] + + + + + + !Prox MAIL COURIER ! !0 ! !Absent ! + + + + + + !Mid MAIL COURIER ! !0 ! !Absent ! + + + + + + !Dist MAIL COURIER ! !0 ! !Absent ! + + [...] + + + + Narrative Performed At PV LAB - Lower Extremity Arterial Duplex [facility] Demographics Patient Name DANNA STACY Date of Study 12/01/2019 LITA Age 74 Visit Number [id number] Gender Female Accession Number [id number] Date of 1945 Referring Suzanne Jenkins, Room Number 1019 Physician DO Power Shovel Operator Helper Chandler Alanis Interpreting Tarah Balderas [place] Physician Procedure Type of Study: Extremities Arteries: Lower Extremities Arterial Duplex, ARTERIAL DOPPLER LEG, RIGHT. Indications for Study:Cold toe and Gangr susana toe. Patient Status:STAT. Study Location:Vascular Lab. Technical Quality:Adequate visualization . Risk Factors History of Disease + + + + !Diagnosis !Date !Comments ! + + + + !History/Risk !12/01/2019!DM2, HTN, PAD,S/P Right femoral stent placement! !Factors: ! !11/26/2019, Amputation right 3rd digit 10/31/2019! + + + + Procedure Note Interface, External Ris In - 12/02/2019 11:50 AM CDT PV LAB - Lower Extremity Arterial Duplex Demographics Patient Name DANNA STACY of Study 12/01/2019 LITA Ag e 74 Visit Number [id number] Ge nder Female Accession Number [id number] Da te of 1945 Referring Susanna Cross om Number [id number] Physician DO Power Shovel Operator Helper Chandler Alanis In terpreting MONAE Shelton Ph [...] + + + + + + !Prox MAIL COURIER ! !0 ! !Absent ! + + + + + + !Mid MAIL COURIER ! !0 ! !Absent ! + + + + + + !Dist MAIL COURIER ! !0 ! !Absent ! + + [...] CPACS C-Reactive Protein (12/01/2019 4:50 AM CDT) Pathologist Sig nature CRP 13.79 (H) 0.00 - 0.50 mg/dL [facility] Specimen Blood Narrative Performed At Batch And Furnace Operator ID - [id number] L [facility] MED ICAL CENTER Performing Organization Address City/State/Zipcode Phone Number [facility] MEDICAL [address] [place] [address] CENTER after 06/21/2019 Insurance Payer Benefit Plan / Subscriber ID Effective Dates Phone Addre ss Type Group [facility] MEDICARE [id number] 2017-Present - MEDICARE D [facility] CARE MEDICAID MEDICAID OF [id number] 2018-Sally DOMINGUEZ t Advance Directives For more information, please contact: [phone] Code Status Date Activated Date Inactivated Comments Full Code 02/10/2020 5:14 PM 02/17/2020 7:17 PM This code status was determined by: Patient Full Code 12/18/2019 4:37 PM 12/31/2019 3:26 PM This code status was determined by: Patient Full Code 12/01/2019 5:34 AM 12/18/2019 4:18 PM This code status was determined by: Patient
--- OUTSIDE RECORDS SUMMARY | 2020-06-21 11:29 | XMS REPORT | Continuity of Care Document ---
:1945 Author Organization [facility] t Address [address] [place] [address] Care Team Providers Name Role Phone Pcp Primary Care Physician Unavailable Balta Stovall DPM Attending Clinician Doctor Unassigned, Name Attending Clinician Unavailable Lionel Franco MD Attending Clinician Balta Stovall DPM Attending Clinician Arias Gimenez MD Attending Clinician Osmin KIM Attending Clinician Tanner Thayer Attending Clinician Lor KIM, Lucila Attending Clinician BALTA STOVALL Attending Clinician Unavailable Le Burgos Attending Clinician Unavailable Waldo KIM Attending Clinician Waldo KIM Attending Clinician Dada Alejo MD Attending Clinician DADA ALEJO Attending Clinician Unavailable Lucretia MERCEDES Attending Clinician Unavailable Ronen KIM, Lucretia Attending Clinician Gregory KIMAusten Attending Clinician Chelsey KIM, Wade Attending Clinician Reilly KIM, Rich Attending Clinician Ralph KIM, Júnior Attending Clinician Letitia Lizarraga CRNA Attending Clinician Juan KIM Attending Clinician Devan Horner CRNA Attending Clinician Lionel Franco MD Attending Clinician Debbie Abdul CRNA Attending Clinician [phone] Bo Riggs MD Attending Clinician OSMIN Admitting Clinician Unavailable DADA ALEJO Admitting Clinician Unavailable Lucretia MERCEDES Admitting Clinician Unavailable Payers Payer Name Policy Type Policy Effective Date Expiration Date Sour ce Number [facility] - [id number] 2017 [place] MEDICARE MGD 00:00:00 - Medical CAREUNITED MEDICARE [facility] r [id number] 2017-P resent MEDICAIDMEDICAID OF [id number] 2018 [place] [id number] 00:00:00 - Medical 8-PresentMedicaid Center Problems Condition Condition Condition Status Onset Resolution Last Treating Co mments Source Name Details Category Date Date Treatment Clinician Date Post-opera Post-opera Disease Active [facility] tive state tive [facility] 02-09 Laurita kes - 00:00: Medical 00 Center Surgical Surgical Disease [facility]care, [facility]09 Laurita kes - skin or skin or 00:00: Medical subcutaneo subcutaneo 00 Ce nter us tissue us tissue 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 00 Center through through metatarsal metatarsal bone bone Impaired Impaired Disease Active [facility] mobility mobility 12[facility]17 [facility] - and and 00:00: Medical activities activities 00 Ce nter of daily of daily living living 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 2 12-17 [facility] - diabetes diabetes 00:00: Medica l mellitus mellitus 00 Center with with hyperglyce hyperglyce radha garcia Post-opera Post-opera Disease Active [facility] tive pain tive pain 12-17 [facility] - 00:00: Medical 00 [place] Anemia Anemia Disease Active [facility] 12[facility]17 [facility] - 00:00: Medical 00 [place] Thrombocyt Thrombocyt Disease Active [facility] osis osis 12-17 [facility] - 00:00: Medical 00 [place] Gangrene Gangrene Disease Active [facility] S t of toe of of toe of 11-30 ke s - right foot right foot 00:00: Me dical 00 Center Allergies, Adverse Reactions, Alerts This patient has no known allergies or adverse reactions. Family History Family Member Diagnosis Comments Start Date Stop Date Source Natural father Diabetes type II [facility] Social History Social Habit Start Date Stop Date Quantity Comments Source [facility] Dr[facility] Medica l [place] History [facility] - Alcohol Binge Medical [facility] ter Sex Assigned At [facility] Tobacco use and 2020-02-10 2020-02-10 Never used [facility] exposure 00:00:00 00:00:00 [facility] Alcohol intake 2020-02-10 2020-02-10 [facility]00 non-drinker of Medical Ce nter alcohol (finding) History [facility] 2019-12-01 2019-12-01 1 [facility] Frequency 00:00:00 00:00:00 [facility] Smoking Status Start Date Stop Date Source Never smoker [facility] M edical [place] Medications Ordered Filled Start Stop Current Ordering Indication Dosage Frequency Signature Comments Components Source Medication Medication Date Date Medication? Clinician (SIG) Name Name Missing or Yes . [facility] Non-Formula 02-16 [facility] - ry 17:17: Medical Medication 54 Center lisinopriL 2020- No 5mg QD Take 1 [facility] (PRINIVIL,Z 02-16 tablet (5 Laurita kes - ESTRIL) 5 00:00: 23:59 mg total) Me dical MG tablet 00 :00 by mouth Center daily. ferrous 2019-2020- No 325mg QD Take [address] [facility] sulfate 325 02-16 tablet [facility] - (65 FE) MG 00:00: 23:59 (325 mg Med ical tablet 00 :00 total) by Center mouth daily. sodium 2020- Yes 1{appli QD Apply 1 [facility] hypochlorit 8-12 cation} applicatio [facility] - e (DAKIN'S 00:00: n Medical SOLUTION) 00 topically Cente r 0.25 % daily. external solution aspirin 81 Yes 81mg QD Take 1 [facility] MG chewable 7-15 tablet (81 Laurita kes - tablet 00:00: mg total) Medica l 00 by mouth Center daily. multivitami 2019- 2020- No 1{tbl} QD Take [address] n 12-30 tablet by [facility] - (THERAGRAN) 00:00: 23:59 mouth Medi casey tablet 00 :00 daily for Center 60 days. zinc 2019- No 220mg QD Take [address] [facility] sulfate 12-30 capsule [facility] - (ZINCATE) 00:00: 23:59 (220 mg Medi casey 220 (50) mg 00 :00 total) by Joana ter capsule mouth daily for 60 days. aspirin 81 0 2020- No 81mg QD Take [address] [facility] MG chewable -15 -14 tablet (81 L ukes - tablet 00:00: 00:00 mg total) Medic al 00 :00 by mouth Center daily. multivitami 2019-0 2020- No 1{tbl} QD Take [address] n 15 - tablet by [facility] - (THERAGRAN) 00:00: 00:00 mouth Medi casey tablet 00 :00 daily for Center 60 days. zinc 2019-0 2020- No 220mg QD Take [address] [facility] sulfate 7-15 - capsule [facility] - (ZINCATE) 00:00: 00:00 (220 mg Medi casey 220 (50) mg 00 :00 total) by [facility]ana ter capsule mouth daily for 60 days. insulin 2019- 2020- No 10U QD Inject [address] glargine 12-29-14 Units [facility] - (LANTUS) 13:11: 00:00 subcutaneo Me dical 100 unit/mL 50 :00 usly Center injection nightly Use as [...] injection nightly Use as directed . ascorbic 2019-0 2020- No 500mg Q.5D Take 1 [facility] acid, 12-29 tablet [facility] - vitamin C, 00:00: 23:59 (500 mg Med ical (VITAMIN C) 00 :00 total) by [facility] ter 500 MG mouth 2 tablet (two) times daily for 60 days. gabapentin 2019-0 2020- No 300mg Q.[id number] Take [address] (NEURONTIN) 12-29 [id number] capsule [facility] - 300 MG 00:00: 23:59 3D (300 mg Medical capsule 00 :00 total) by Center mouth 3 (three) times daily for 60 days. melatonin 3 2019-0 2020- No 3mg QD Take [address] [facility] [facility] mg Tab 12-29 tablet (3 [facility] - tablet 00:00: 23:59 mg total) Medic al 00 :00 by mouth Center nightly for 60 days. metFORMIN 2019-0 2020- No 500mg Take [address] [facility] (GLUCOPHAGE 12-29 tablet [facility] - ) 500 MG 00:00: 23:59 (500 mg Medic al tablet 00 :00 total) by Center mouth 2 (two) times daily with breakfast and dinner for 60 days. ticagrelor 2020-0 2020- No 90mg Q.5D Take [address] (BRILINTA) 12-29 tablet (90 Laurita kes - 90 mg Tab 00:00: 23:59 mg total) Me dical tablet 00 :00 by mouth 2 Center (two) times daily for 60 days. polyethylen 2019- No 17g Take [address] e glycol 12-2921 by mouth [facility] - (GLYCOLAX) 00:00: 00:00 daily as Me dical 17 gram 00 :00 needed Center packet (constipat ion). atorvastati 2019- No 80mg QD Take [address] [facility] n (LIPITOR) 12-29 tablet (80 L ukes - 80 MG 00:00: 00:00 mg total) Medica l tablet 00 :00 by mouth Center nightly. insulin 2019- No 7U QD Inject 7 [facility] glargine 12-29 Units [facility] - (LANTUS) 00:00: 00:00 subcutaneo Me dical 100 unit/mL 00 :00 usly Center injection nightly Use as directed . ascorbic 2019- No 500mg Q.5D Take 1 [facility] acid, 12-29 tablet [facility] - vitamin C, 00:00: 00:00 (500 mg Med ical (VITAMIN C) 00 :00 total) by [facility] ter 500 MG mouth 2 tablet (two) times daily for 60 days. docusate 2019- No 100mg Take 1 [facility] sodium 12-29 capsule [facility] - (COLACE) 00:00: 00:00 (100 mg Medic al 100 MG 00 :00 total) by Center capsule mouth daily as needed for Constipati on. gabapentin 2019- No 300mg Q.[id number] Take [address] (NEURONTIN) 12-29 [id number] capsule [facility] - 300 MG 00:00: 00:00 [...] breakfast and dinner for 60 days. polyethylen 2019- 2020- No 17g Take [address] [facility] e glycol 12-29- by mouth [facility] - (GLYCOLAX) 00:00: 00:00 daily as Me dical 17 gram 00 :00 needed Center packet (constipat ion). ticagrelor 2019- 2020- No 90mg Q.5D Take [address] (BRILINTA) 12-29 tablet (90 Laurita kes - 90 mg Tab 00:00: 00:00 mg total) Me dical tablet 00 :00 by mouth 2 Center (two) times daily for 60 days. ascorbic 2019- 2020- No 500mg Q.5D Take 1 [facility] acid, 12-29 tablet [facility] - vitamin C, 00:00: 00:00 (500 mg Med ical (VITAMIN C) 00 :00 total) by [facility] ter 500 MG mouth 2 tablet (two) times daily for 60 days. apixaban 2019- No prevent 2.5mg Q.5D Take 2.[address] (ELIQUIS) 12-11 thromboembo mg by L ukes - 2.5 mg Tab 16:10: 00:00 lism in mouth 2 Medical tablet 34 :00 chronic (two) Center atrial times fibrillatio daily. n metoprolol 2019- No 25mg QD Take [address] succinate 12-11 by mouth [facility] - (TOPROL-XL) 16:10: 00:00 daily. Med ical 25 MG 24 hr 34 :00 Center tablet furosemide 2019- No 40mg QD Take [address] [facility] (LASIX) 40 12-11 by mouth Luke s - MG tablet 16:10: 00:00 daily. Medic al 34 :00 Center collagenase 0 Yes 1{appli QD Apply [address] (SANTYL) 5-21 cation} applicatio Laurita kes - 250 units/g 00:00: n Medica l ointment 00 topically Center daily Apply sergio thick amount to wound daily. SANTYL 250 2019- 2020- No 1{appli QD Apply [address] [facility] unit/gram - 07-14 cation} applicatio [facility] - ointment 00:00: 00:00 n Medical 00 :00 topically Center daily Andres nickel thick amount to wound QD. traMADoL 2020-0 Yes 1{tbl} Take 1 [facility] (ULTRAM) 50 5-18 tablet by Mery es - mg tablet 00:00: mouth Medical 00 every 6 Center (six) hours as needed for Pain. traMADoL 2020-0 2020- No 1{tbl} Take [address] (ULTRAM) 50 5-18 07-14 tablet by Laurita kes - mg tablet 00:00: 00:00 mouth Medica l 00 :00 every 6 Center (six) hours as needed for Pain. HYDROcodone 2019-0 2020- No 1{tbl} Take [address] [...] al 40 MG 00 Center tablet polyethylen 2019-0 Yes 17g Take [address] e glycol 5-06 by mouth [facility] - (GLYCOLAX) 00:00: daily as Med ical 17 gram 00 needed for Center packet Constipati on. psyllium 2020-0 Yes 1{packe QD Take [address] [facility] (METAMUCIL 5-06 t} packet by Luke s - FIBER 00:00: mouth Medical SINGLES) 00 daily. Center 3.4 gram packet glipiZIDE 2020-0 Yes 10mg QD Take [address] (GLUCOTROL 5-05 by mouth [facility] - XL) 10 MG 00:00: daily. Medica l 24 hr 00 Center tablet HYDROcodone 2020-0 Yes 1{tbl} Take [address] -acetaminop 5-05 tablet by Mery es - hen (NORCO 00:00: mouth Medica l 5-325) 00 every 6 Center 5-325 mg (six) per tablet hours as needed for Pain. aspirin 81 2020-0 2020- No 81mg QD Take [address] MG chewable 10-20-21 by mouth Mery es - tablet 00:00: 00:00 daily. Medical 00 :00 [place] clopidogreL 2019- No 1{tbl} QD Take [address] (PLAVIX) 75 5- 07-14 tablet by Laurita kes - mg tablet 00:00: 00:00 mouth Medica l 00 :00 daily. [place] atorvastati 2019- No 1{tbl} QD Take [address] n (LIPITOR) 5- 07-14 tablet by Laurita kes - 40 MG 00:00: 00:00 mouth Medical tablet 00 :00 nightly. [place] pantoprazol 2019- No 1{tbl} QD Take [address] e 5- 07-14 tablet by [facility] - (PROTONIX) 00:00: 00:00 mouth Medic al 40 MG 00 :00 daily. [place] tablet nortriptyli Yes 25mg QD Take [address] ne 1-30 by mouth [facility] - (PAMELOR) 00:00: daily. Medica l 25 MG 00 Center capsule Vital Signs Vital Name Observation Time Observation Value Comments Source Systolic blood 2020-02-17 13:00:00 162 mm[Hg] [facility] Diastolic blood 2020-02-17 13:00:00 74 mm[Hg] [facility] Heart rate 2020-02-17 13:00:00 69 /min [facility] Body temperature 2020-02-17 13:00:00 35.78 Terese [facility] Respiratory rate 2020-02-17 13:00:00 18 /min [facility] Oxygen saturation in 2020-02-17 13:00:00 100 /min [facility] Arterial blood by Medical Ce nter Pulse oximetry Body height 2020-02-10 11:43:00 162.6 cm [facility] Body weight 2020-02-10 11:43:00 56.2 kg [facility] BMI 2020-02-10 11:43:00 21.27 kg/m2 [facility] Procedures Procedure Date / Time Performing Clinician Source Performed POCT-GLUCOSE METER 2020-02-17 12:55:00 Ammy, Manuel Bianchi [facility] POCT-GLUCOSE METER 2020-02-17 07:48:00 Ammy, Manuel Bianchi [facility] POCT-GLUCOSE METER 2020-02-16 21:14:00 Ammy, Manuel Bianchi [facility] POCT-GLUCOSE METER 2020-02-16 16:28:00 Ammy, Manuel Bianchi [facility] POCT-GLUCOSE METER 2020-02-16 11:35:00 Ammy, Manuel Bianchi [facility] POCT-GLUCOSE METER 2020-02-16 07:34:00 Ammy, Manuel Bianchi [facility] POCT-GLUCOSE METER 2020-02-15 21:19:00 Ammy, Manuel Bianchi [facility] POCT-GLUCOSE METER 2020-02-15 15:51:00 Ammy, Manuel Bianchi [facility] POCT-GLUCOSE METER 2020-02-15 12:16:00 Ammy, Manuel Bianchi [facility] POCT-GLUCOSE METER 2020-02-15 08:01:00 Ammy, Manuel Bianchi [facility] CBC W/PLT COUNT & AUTO 2020-02-15 04:24:00 Ammy, Manuel Bianchi [facility] POCT-GLUCOSE METER 2020-02-14 21:16:00 Manuel Gimenez [facility] POCT-GLUCOSE METER 2020-02-14 15:56:00 Manuel Gimenez [facility] POCT-GLUCOSE METER 2020-02-14 13:01:00 Ammy, Manuel Bianchi [facility] POCT-GLUCOSE METER 2020-02-14 08:07:00 Ammy, Manuel Bianchi [facility] CBC W/PLT COUNT & AUTO 2020-02-14 05:43:00 Ammy, Manuelshon Bianchi [facility] POCT-GLUCOSE METER 2020-02-13 20:59:00 Ammy, Manuelshon Bianchi [facility] POCT-GLUCOSE METER 2020-02-13 15:43:00 Ammy, Manuel Bianchi [facility] POCT-GLUCOSE METER 2020-02-13 11:26:00 Manuel Gimenez [facility] POCT-GLUCOSE METER 2020-02-13 07:50:00 AmmyManuel [facility] CBC W/PLT COUNT & AUTO 2020-02-13 04:24:00 Manuel Gimenez [facility] POCT-GLUCOSE METER 2020-02-12 21:03:00 AmmyManuel [facility] POCT-GLUCOSE METER 2020-02-12 16:22:00 AmmyManuel [facility] POCT-GLUCOSE METER 2020-02-12 11:38:00 AmmyManuel [facility] COMPREHENSIVE METABOLIC 2020-02-12 08:32:00 Ammy [facility] PROTHROMBIN TIME/INR 2020-02-12 08:32:00 Manuel Gimenez [facility] POCT-GLUCOSE METER 2020-02-12 07:51:00 Ammy, Manuel Bianchi [facility] POCT-GLUCOSE METER 2020-02-11 22:19:00 [facility] POCT-GLUCOSE METER 2020-02-11 15:22:00 [facility] Manuelshon Bianchi [facility] POCT-GLUCOSE METER 2020-02-11 11:48:00 Ammy Manuel [facility] BASIC METABOLIC PANEL (7) 2020-02-11 11:16:[address] [facility] CBC (HEMOGRAM ONLY) 2020-02-11 11:16:00 Tawanna Burgos [facility] POCT-GLUCOSE METER 2020-02-11 07:23:00 AmmyManuel [facility] BASIC METABOLIC PANEL (7) 2020-02-11 07:20:00 Ammy Manuelshon souza [facility] CBC W/PLT COUNT & AUTO 2020-02-11 07:20:00 [facility] IRON, TIBC, % SAT. 2020-02-10 23:13:00 Manuel Gimenez [facility] (WITHOUT FERRITIN) [facility] VITAMIN B12 AND FOLATE 2020-02-10 23:13:00 Manuel Gimenez [facility] POCT-GLUCOSE METER 2020-02-10 22:31:00 Manuel Gimenez [facility] POCT-GLUCOSE METER 2020-02-10 18:02:00 AmmyManuel [facility] DEBRIDEMENT/I&D,WOUND 2020-02-10 14:50:00 Mague Stovallian Balta [facility] EXTREMITY LOWER [facility] SKIN GRAFT,SPLIT 2020-02-10 14:50:[address] [facility] ukes - THICKNESS-LOWER EXTREMITY Medica l Center SKIN GRAFT,SPLIT 2020-02-10 14:50:00 Giovanny Franco [facility] s - THICKNESS-LOWER EXTREMITY [facility] POCT-GLUCOSE METER 2020-02-10 11:22:00 Gabriel Stovall [facility] SARS-COV2/RT-PCR ([facility] & 2020-02-06 11:36:[address] [facility] - REF LABS) [facility] HEMOGLOBIN 2020-02-06 11:36:00 Bill Fong [facility] BASIC METABOLIC PANEL (7) 2020-02-06 11:36:00 Bill Fong [facility] POCT-GLUCOSE METER 2019-12-31 11:37:00 Zelda [facility] POCT-GLUCOSE METER 2019-12-31 06:57:00 [facility]SE METER 2019-12-31 00:01:00 [facility] POCT-GLUCOSE METER 2019-12-30 16:14:00 [facility] PO[facility] 2019-12-30 12:20:00 [facility] POCT-GLUCOSE METER 2019-12-30 06:31:00 [facility] POCT-GLUCOSE METER 2019-12-29 20:16:00 [facility] POCT-[facility]UCOSE METER 2019-12-29 16:41:00 [facility] VENOUS DOPPLER ARM, LEFT 2019-12-29 16:30:00 Ambar Howard [facility] POCT-GLUCOSE METER 2019-12-29 11:06:00 [facility] POCT-GLUCOSE METER 2019-12-29 06:16:00 [facility] CBC (HEMOGRAM ONLY) 2019-12-29 04:53:00 [facility] BASIC METABOLIC PANEL (7) 2019-12-29 04:52:00 [facility] POCT-GLUCOSE METER 2019-12-28 20:47:00 [facility] POCT-GLUCOSE METER 2019-12-28 16:22:00 [facility] POCT-GLUCOSE METER 2019-12-28 11:56:00 [facility] POCT-GLUCOSE METER 2019-12-28 06:16:00 [facility] POCT-GLUCOSE METER 2019-12-27 20:24:00 [facility] POCT-GLUCOSE METER 2019-12-27 16:08:00 [facility] POCT-GLUCOSE METER 2019-12-27 11:12:00 [facility] POCT-GLUCOSE METER 2019-12-27 06:03:00 [facility] POCT-GLUCOSE METER 2019-12-26 20:12:00 [facility] POCT-GLUCOSE METER 2019-12-26 16:02:00 [facility] COMPREHENSIVE METABOLIC 2019-12-26 12:00:[address] [facility] CBC W/PLT COUNT & AUTO 2019-12-26 12:00:00 Ambar Howard [facility] POCT-GLUCOSE METER 2019-12-26 11:33:00 [facility] POCT-GLUCOSE METER 2019-12-26 06:35:00 Zelda, [facility] POCT-GLUCOSE METER 2019-12-25 20:43:00 Zelda, [facility] POCT-GLUCOSE METER 2019-12-25 16:42:00 Zelda, [facility] POCT-GLUCOSE METER 2019-12-25 11:08:00 Zelda, [facility] POCT-GLUCOSE METER 2019-12-25 06:32:00 [facility] POCT-GLUCOSE METER 2019-12-24 20:44:00 Zelda, [facility] POCT-GLUCOSE METER 2019-12-24 16:24:00 Zelda, [facility] POCT-GLUCOSE METER 2019-12-24 11:12:00 Zelda, [facility] POCT-GLUCOSE METER 2019-12-24 06:20:00 Zelda, [facility] POCT-GLUCOSE METER 2019-12-23 20:33:00 Zelda, [facility] POCT-GLUCOSE METER 2019-12-23 16:48:00 Zelda, [facility] POCT-GLUCOSE METER 2019-12-23 11:31:00 Zelda, [facility] POCT-GLUCOSE METER 2019-12-23 05:58:00 Zelda, [facility] POCT-GLUCOSE METER 2019-12-22 20:29:00 Zelda, [facility] POCT-GLUCOSE METER 2019-12-22 16:10:00 Zelda, [facility] POCT-GLUCOSE METER 2019-12-22 11:33:00 Zelda, [facility] RHYTHM STRIP - SCAN 2019-12-22 10:01:02 Provider, [facility] CARDIAC CATH REPORT - 2019-12-22 10:00:44 Provider, [facility] POCT-GLUCOSE METER 2019-12-22 06:23:00 [facility] BASIC METABOLIC PANEL (7) 2019-12-22 04:37:00 [facility] CBC (HEMOGRAM ONLY) 2019-12-22 04:37:00 [facility] POCT-GLUCOSE METER 2019-12-21 20:41:00 [facility] POCT-GLUCOSE METER 2019-12-21 15:41:00 [facility] POCT-GLUCOSE METER 2019-12-21 11:31:00 [facility] POCT-GLUCOSE METER 2019-12-21 06:18:00 [facility] POCT-GLUCOSE METER 2019-12-20 20:20:00 [facility] POCT-GLUCOSE METER 2019-12-20 16:27:00 [facility] POCT-GLUCOSE METER 2019-12-20 12:27:00 [facility] POCT-GLUCOSE METER 2019-12-20 06:24:00 [facility] POCT-GLUCOSE METER 2019-12-19 20:57:00 [facility] POCT-GLUCOSE METER 2019-12-19 16:05:00 [facility] POCT-GLUCOSE METER 2019-12-19 12:07:00 [facility] POCT-GLUCOSE METER 2019-12-19 06:18:00 [facility] COMPREHENSIVE METABOLIC 2019-12-19 05:22:00 Pat Ndiaye [facility] MAGNESIUM 2019-12-19 05:22:00 Pat Ndiaye [facility] CBC W/PLT COUNT & AUTO 2019-12-19 05:22:00 [address] Ndiaye [facility] POCT-GLUCOSE METER 2019-12-18 20:52:00 Pat Ndiaye [facility] POCT-GLUCOSE METER 2019-12-18 16:49:00 Dada Alejo Pat [facility] POCT-GLUCOSE METER 2019-12-18 11:46:00 Grover [facility] POCT-GLUCOSE METER 2019-12-18 07:28:00 Reilly [facility] BASIC METABOLIC PANEL (7) 2019-12-18 05:36:00 Ying El Jerold [facility] CBC (HEMOGRAM ONLY) 2019-12-18 05:36:00 Ying El [facility] MAGNESIUM 2019-12-18 05:36:00 Ying El [facility] POCT-GLUCOSE METER 2019-12-17 21:07:00 Noreen Grover [facility] POCT-GLUCOSE METER 2019-12-17 17:48:00 [facility] POCT-GLUCOSE METER 2019-12-17 11:38:00 Reilly Noreen Rich [facility] POCT-GLUCOSE METER 2019-12-17 07:27:00 Reilly [facility] BASIC METABOLIC PANEL (7) 2019-12-17 05:13:00 Ying Eles Jerold [facility] CBC (HEMOGRAM ONLY) 2019-12-17 05:13:00 [facility] 2019-12-17 05:13:00 Colin [facility] POCT-GLUCOSE METER 2019-12-16 20:51:00 Grover, [facility] POCT-GLUCOSE METER 2019-12-16 16:34:00 Reilly [facility] XR CHEST 1 VIEW 2019-12-16 14:48:00 [facility] POCT-GLUCOSE METER 2019-12-16 11:47:00 Reilly [facility] POCT-GLUCOSE METER 2019-12-16 06:50:00 Reilly [facility] BASIC METABOLIC PANEL (7) 2019-12-16 05:57:00 Ying El Jerold [facility] CBC (HEMOGRAM ONLY) 2019-12-16 05:57:00 [facility] MAGNESIUM 2019-12-16 05:57:00 Ying El [facility] POCT-GLUCOSE METER 2019-12-15 21:15:00 Reilly [facility] POCT-GLUCOSE METER 2019-12-15 16:44:00 Reilly [facility] POCT-GLUCOSE METER 2019-12-15 11:45:00 Reilly [facility] POCT-GLUCOSE METER 2019-12-15 06:58:[address] [facility] BASIC METABOLIC PANEL (7) 2019-12-15 04:46:00 Ying El [facility] CBC (HEMOGRAM ONLY) 2019-12-15 04:46:00 [facility] 2019-12-15 04:46:00 Ying El [facility] POCT-GLUCOSE METER 2019-12-14 21:15:[address] [facility] POCT-GLUCOSE METER 2019-12-14 17:18:00 Chelsey [facility] POCT-GLUCOSE METER 2019-12-14 12:05:00 [facility] 2019-12-14 07:51:00 Chelsey [facility] BASIC METABOLIC PANEL (7) 2019-12-14 04:29:00 Ying El [facility] CBC (HEMOGRAM ONLY) 2019-12-14 04:29:00 [facility] 2019-12-14 04:29:00 [facility] PO[facility]SE [facility]ER 2019-12-13 21:42:00 Nikolayakilbo [facility] POCT-GLUCOSE METER 2019-12-13 16:53:00 Nikolayakilbo [facility] POCT-GLUCOSE METER 2019-12-13 11:15:00 Nikolayakilbo [facility] POCT-GLUCOSE METER 2019-12-13 07:21:00 Nikolayakilbo [facility] BASIC METABOLIC PANEL (7) 2019-12-13 04:54:00 Ying El [facility] CBC (HEMOGRAM ONLY) 2019-12-13 04:54:00 [facility] 2019-12-13 04:54:00 [facility] POCT-[facility]SE [facility]ER 2019-12-12 21:10:00 Nikolayakilbo [facility] POCT-GLUCOSE METER 2019-12-12 16:50:00 Nikolayakilbo [facility] POCT-GLUCOSE METER 2019-12-12 12:44:00 [facility] + SMEAR 2019-12-12 12:11:18 Gabriel Stovall [facility] ([facility] ANAEROBIC CULTURE 2019-12-12 12:11:18 Gabriel Stovall [facility] FUNGUS CULTURE + SMEAR 2019-12-12 12:11:18 Gabriel Stovall [facility] SURGICALLY OBTAINED 2019-12-12 12:11:18 Gabriel Stovall [facility] - CULTURE + GRAM STAIN Medical Joana ter SPIN/CONCENTRATION CHARGE 2019-12-12 12:11:00 Gabriel Stovall [facility] DEBRIDEMENT/I&D,WOUND 2019-12-12 11:34:00 Gabriel Stovall [facility] SKIN GRAFT,SKIN 2019-12-12 11:34:00 Gabriel Stovall [facility] POCT-GLUCOSE METER 2019-12-12 07:54:[address] [facility] BASIC METABOLIC PANEL (7) 2019-12-12 05:19:00 Ying El [facility] CBC (HEMOGRAM ONLY) 2019-12-12 05:19:00 [facility] 2019-12-12 05:19:00 [facility] POCT-GLUCOSE METER 2019-12-11 21:01:00 Suzanne Jenkins [facility] POCT-GLUCOSE METER 2019-12-11 16:41:00 Suzanne Jenkins [facility] POCT-GLUCOSE METER 2019-12-11 11:31:00 Suzanne Jenkins [facility] POCT-GLUCOSE METER 2019-12-11 07:24:00 Suzanne Jenkins [facility] BASIC METABOLIC PANEL (7) 2019-12-11 04:59:00 Ying El [facility] CBC (HEMOGRAM ONLY) 2019-12-11 04:59:00 [facility] 2019-12-11 04:59:00 Ying El [facility] POCT-GLUCOSE METER 2019-12-10 21:23:00 Suzanne Jenkins [facility] POCT-GLUCOSE METER 2019-12-10 16:37:00 Suzanne Jenkins [facility] POCT-GLUCOSE METER 2019-12-10 11:03:00 Suzanne Jenkins [facility] POCT-GLUCOSE METER 2019-12-10 07:33:00 Suzanne Jenkins [facility] BASIC METABOLIC PANEL (7) 2019-12-10 05:50:00 Ying El [facility] CBC (HEMOGRAM ONLY) 2019-12-10 05:50:00 Ying El [facility] MAGNESIUM 2019-12-10 05:50:00 Ying El [facility] POCT-GLUCOSE METER 2019-12-09 21:14:00 Suzanne Jenkins [facility] POCT-GLUCOSE METER 2019-12-09 17:03:00 Suzanne Jenkins [facility] POCT-GLUCOSE METER 2019-12-09 11:47:00 Suzanne Jenkins [facility] POCT-GLUCOSE METER 2019-12-09 06:52:00 Suzanne Jenkins [facility] BASIC METABOLIC PANEL (7) 2019-12-09 05:41:00 Ying El [facility] CBC (HEMOGRAM ONLY) 2019-12-09 05:41:00 Ying El [facility] MAGNESIUM 2019-12-09 05:41:00 Ying El [facility] POCT-GLUCOSE METER 2019-12-08 22:10:00 Suzanne Jenkins [facility] POCT-GLUCOSE METER 2019-12-08 16:32:00 Suzanne Jenikns [facility] POCT-GLUCOSE METER 2019-12-08 11:53:00 GregorySuzanne felix [facility] POCT-GLUCOSE METER 2019-12-08 07:57:00 GregorySuzanne felix [facility] BASIC METABOLIC PANEL (7) 2019-12-08 05:49:00 Ying El [facility] CBC (HEMOGRAM ONLY) 2019-12-08 05:49:00 Ying El [facility] MAGNESIUM 2019-12-08 05:49:00 [facility] POCT-GLUCOSE METER 2019-12-07 21:46:00 Suzanne Jenkins [facility] POCT-GLUCOSE METER 2019-12-07 17:10:00 Suzanne Jenkins [facility] BASIC METABOLIC PANEL (7) 2019-12-07 04:58:00 Ying El [facility] CBC (HEMOGRAM ONLY) 2019-12-07 04:58:00 Ying El [facility] MAGNESIUM 2019-12-07 04:58:00 [facility] POCT-GLUCOSE METER 2019-12-06 21:02:00 Suzanne Jenkins [facility] POCT-GLUCOSE METER 2019-12-06 16:37:00 Suzanne Jenkins [facility] POCT-GLUCOSE METER 2019-12-06 12:06:00 GregorySuzanne felix [facility] POCT-GLUCOSE METER 2019-12-06 07:00:00 Suzanne Jenkins [facility] BASIC METABOLIC PANEL (7) 2019-12-06 04:37:00 Ying El [facility] CBC (HEMOGRAM ONLY) 2019-12-06 04:37:00 Ying El [facility] MAGNESIUM 2019-12-06 04:37:00 Yign El [facility] POCT-GLUCOSE METER 2019-12-05 21:05:00 Suzanne Jenkins [facility] POCT-GLUCOSE METER 2019-12-05 16:36:00 Suzanne Jenkins [facility] XR FOOT RIGHT 3 VIEW 2019-12-05 15:32:00 Gabriel Stovall [facility] RHYTHM STRIP - SCAN 2019-12-05 14:14:10 ProviderErrol [facility] [employer] CULTURE + SMEAR 2019-12-05 13:05:00 Gabriel Stovall [facility] Lucretia [facility] (NON-SPUTUM) [facility] ANAEROBIC CULTURE 2019-12-05 13:05:00 Gabriel Stovall [facility] FUNGUS CULTURE + SMEAR 2019-12-05 13:05:00 Gabriel Stovall [facility] SURGICALLY OBTAINED 2019-12-05 13:05:00 Gabriel Sotvall [facility] - CULTURE + GRAM STAIN Medical [facility] ter SPIN/CONCENTRATION CHARGE 2019-12-05 13:05:00 Gabriel Stovall [facility] TISSUE EXAM 2019-12-05 13:01:00 Gabriel Stovall [facility] POCT-GLUCOSE METER 2019-12-05 12:57:00 Suzanne Jenkins [facility] AMPUTATION,FOOT 2019-12-05 11:34:00 Gabriel Stovall [facility] DEBRIDEMENT/I&D,WOUND 2019-12-05 11:34:00 Gabriel Stovall [facility] ECG 12-LEAD 2019-12-05 09:28:13 Unknown, Hl7 Doctor [facility] POCT-GLUCOSE METER 2019-12-05 08:03:00 Suzanne Jenkins [facility] BASIC METABOLIC PANEL (7) 2019-12-05 05:40:00 Ying El [facility] CBC (HEMOGRAM ONLY) 2019-12-05 05:40:00 Ying El [facility] MAGNESIUM 2019-12-05 05:40:00 Ying El [facility] POCT-GLUCOSE METER 2019-12-04 21:06:00 Suzanne Jenkins [facility] POCT-GLUCOSE METER 2019-12-04 16:08:00 Suzanne Jenkins [facility] POCT-GLUCOSE METER 2019-12-04 11:40:00 Suzanne Jenkins [facility] POCT-GLUCOSE METER 2019-12-04 07:58:00 Suzanne Jenkins [facility] BASIC METABOLIC PANEL (7) 2019-12-04 06:30:00 Ying El [facility] CBC (HEMOGRAM ONLY) 2019-12-04 06:30:00 Ying El [facility] MAGNESIUM 2019-12-04 06:30:00 Ying El [facility] APTT 2019-12-04 06:30:00 Suzanne Jenkins [facility] PLATELET AGGREGATION: 2019-12-04 06:30:00 Mariah Figueroa [facility] DRUG EFFECT [facility] POCT-GLUCOSE METER 2019-12-03 21:12:00 Suzanne Jenkins [facility] BLOOD CULTURE 2019-12-03 18:44:00 Ying El [facility] TRANSFUSION SERVICE 2019-12-03 18:00:38 Errol Zepeda [facility] REPORT - SCAN Scanning [facility] POCT-GLUCOSE METER 2019-12-03 16:50:00 Suzanne Jenkins [facility] POCT-ACT 2019-12-03 14:35:00 Suzanne Jenkins [facility] POCT-ACT 2019-12-03 13:53:00 Suzanne Jenkins [facility] PERIPHERAL ANGIOS / 2019-12-03 12:38:00 Giovanny Franco [facility] - AORTOGRAM [facility] POCT-GLUCOSE METER 2019-12-03 11:09:00 Suzanne Jenkins [facility] POCT-GLUCOSE METER 2019-12-03 08:14:00 Suzanne Jenkins [facility] BASIC METABOLIC PANEL (7) 2019-12-03 06:11:00 Ying El [facility] CBC (HEMOGRAM ONLY) 2019-12-03 06:11:00 Ying El [facility] MAGNESIUM 2019-12-03 06:11:00 Ying El [facility] APTT 2019-12-03 06:11:00 Suzanne Jenkins [facility] APTT 2019-12-02 23:35:00 Suzanne Jenkins [facility] POCT-GLUCOSE METER 2019-12-02 21:10:00 Suzanne Jenkins [facility] VANCOMYCIN LEVEL, TROUGH 2019-12-02 19:09:00 [facility] POCT-GLU[facility]SE METER 2019-12-02 16:46:00 Suzanne Jenkins [facility] APTT 2019-12-02 16:41:00 Suzanne Jenkins [facility] POCT-GLUCOSE METER 2019-12-02 12:20:00 Suzanne Jenkins [facility] XR FOOT RIGHT 3 VIEW 2019-12-02 12:00:00 Gabriel Stovall [facility] POCT-GLUCOSE METER 2019-12-02 09:12:00 Suzanne Jenkins [facility] TISSUE EXAM 2019-12-02 08:41:00 Gabriel Stovall [facility] SURGICALLY OBTAINED 2019-12-02 08:38:26 Gabriel Stovlal [facility] [place] - CULTURE + GRAM STAIN Medical [address] [facility] ANAEROBIC CULTURE 2019-12-02 08:38:26 Gabriel Stovall [facility] [employer] CULTURE + SMEAR 2019-12-02 08:38:26 Gabriel Stovall [facility] (NON-SPUTUM) [facility] FUNGUS CULTURE + SMEAR 2019-12-02 08:38:26 Gabriel Stovall [facility] AMPUTATION,TOE 2019-12-02 07:23:00 Gabriel Stovall [facility] DEBRIDEMENT/I&D,WOUND 2019-12-02 07:23:00 Gabriel Stovall [facility] EXTREMITY LOWER [facility] POCT-GLUCOSE METER 2019-12-02 05:34:00 Suzanne Jenkins [facility] ABORH, MANUAL 2019-12-02 01:36:00 Unique Michaud [facility] APTT 2019-12-02 01:16:00 Suzanne Jenkins [facility] BASIC METABOLIC PANEL (7) 2019-12-02 01:16:00 Ying El [facility] CBC (HEMOGRAM ONLY) 2019-12-02 01:16:00 [facility] 2019-12-02 01:16:00 [facility] HEMOGLOBIN A1C 2019-12-02 01:16:00 [facility] TYPE AND SCREEN, 2019-12-02 01:16:[address] [facility] POCT-GLUCOSE METER 2019-12-01 21:17:00 Suzanne Jenkins [facility] APTT 2019-12-01 19:36:00 Suzanne Jenkins [facility] POCT-GLUCOSE METER 2019-12-01 17:14:00 Suzanne Jenkins [facility] POCT-GLUCOSE METER 2019-12-01 12:12:00 Suzanne Jenkins [facility] SARS-COV2/RT-PCR ([facility] & 2019-12-01 12:10:00 Mariah Figueroa [facility] - REF LABS) [facility] APTT 2019-12-01 12:10:00 [facility] XR FOOT RIGHT 3 VIEW 2019-12-01 10:59:00 Gabriel Stovall [facility] ARTERIAL (TOSHIA'S W/ 2019-12-01 09:45:00 Suzanne Jenkins [facility] - DOPPLER) ONLY [facility] ARTERIAL DOPPLER LEG, 2019-12-01 09:20:00 Suzanne Jenkins [facility] BLOOD CULTURE 2019-12-01 04:58:00 Sutaria, [facility] BLOOD CULTURE 2019-12-01 04:50:00 [facility], [facility] APTT 2019-12-01 04:50:00 [facility], [facility] COMPREHENSIVE METABOLIC 2019-12-01 04:50:00 [facility], [facility] PROTHROMBIN TIME/INR 2019-12-01 04:50:00 [facility], [facility] C-REACTIVE PROTEIN 2019-12-01 04:50:00 [facility], [facility] CBC W/PLT COUNT & AUTO 2019-12-01 04:50:00 [facility], [facility] Plan of Care Planned Activity Planned Date Details Comments Source Future Scheduled 2020-03-03 Hemoglobin A1c [facility] kes - Test 00:00:00 [facility] (procedure) [code = 76574319] Future Scheduled 2020-02-[address] [...] 00:00:00 examination Medical Center (regime/therapy) [code = 014530287] Future Scheduled 1956 Urine screening for [facility] - Test 00:00:00 protein (procedure) [facility] [code = 326086597] Future Scheduled [address] [facility] - Test 00:00:00 [facility] breast (procedure) [code = 314446397] Future Scheduled [address] [facility] - Test 00:00:00 malignant neoplasm of [facility] colon (procedure) [code = 895958085] Encounters Start End Encounter Admission Attending Care Care Encounter Source Date/Time Date/Time Type Type Clinicians Facility Department ID 2020-06-07 2020-06-07 Office HUANG Stovall [id number] 13:56:25 16:57:48 Visit Gabriel Everett AMBULATOR [id number] Y 0.2.7.2.686 [id number] 2020-05-07 2020-05-07 Orders Doctor BILL 1.2.840.114 [id number] 00:00:00 00:00:00 Only Unassigned, PATTY 350.1.13.10 [facility] 4.2.7.2.686 [id number] 2020-04-05 2020-04-05 Office HUANG Stovall [id number] 14:32:01 15:37:58 Visit Gabriel Everett AMBULATOR 350.1.13.21 Y 0.2.7.2.686 [id number] 2020-04-05 2020-04-05 Office HUANG Franco 1.2.840.114 [id number] 14:31:13 15:37:49 Visit Giovanny AMBULATOR 350.1.13.21 Lionel Y 0.2.7.2.686 [id number] 2020-03-15 2020-03-15 Office HUANG Stovall 1.2.840.114 [id number] 15:50:40 16:41:06 Visit Gabriel Everett AMBULATOR 350.1.13.21 Y 0.2.7.2.686 [id number] 2020-02-26 2020-02-26 Office HUANG Stovall 1.2.840.114 [id number] 14:43:47 15:34:04 Visit Gabriel Everett AMBULATOR 350.1.13.21 Y 0.2.7.2.686 [id number] 2020-01-28 2020-01-28 Office HUANG Stovall 1.2.840.114 [id number] 10:21:38 10:36:38 Visit Gabriel Everett AMBULATOR 350.1.13.21 Y 0.2.7.2.686 [id number] 2020-01-21 2020-01-21 Office Jason Cortez BCJeri 1.2.840.114 [id number] 11:23:24 12:51:12 Visit AMBULATOR 350.1.13.21 Y 0.2.7.2.686 [id number] 2019-12-15 2019-12-15 Orders Doctor BILL 1.2.840.114 [id number] 00:00:00 00:00:00 Only Unassigned, PATTY 350.1.13.10 [facility] 4.2.7.2.686 [id number] 2019-11-21 2019-11-21 Telemedici [facility] 1.2.840.114 [id number] 08:57:41 09:37:41 ne Visit Vanesa Wiggins 350.1.13.10 Sabina 4.2.7.2.686 Feliz [id number] [address] 2019-10-30 2019-10-30 Telephone [facility] 1.2.840.114 [id number] 00:00:00 00:00:00 Vanesa Wiggins 350.1.13.10 [place] 4.2.7.2.686 Profjay [id number] [address] Results Test Description Test Time Test Comments Results Result Comments Source POC-Glucose meter 2020-02-17 13:05:00 Test Item Value Reference Range Interpretation Comme nts POC-Glucose Meter (test code = 200 mg/dL 70-110 H : TESTED AT [place] [address]) [facility], 770 30: Behavioral Health Worker/Techni herson ID = [id number] for CAMILA CHU Lab Interpretation (test code = Abnormal 11623-5) [facility] [id number] 13:05:00 Test Item Value Reference Range Interpretation Comments POC-GLUCOSE METER 200 mg/dL 70-110 H : TESTED A T [facility] 6720 (BEAKER) (test code = [facility], 153) 87816: Behavioral Health Worker/Techni herson ID = [id number] for ARISTEO QUEEN POCT-GLUCOSE [id number] 07:59:00 Test Item Value Reference Range Interpretation Comments POC-GLUCOSE METER 191 mg/dL 70-110 H : TESTED A T [facility] 6720 (BEAKER) (test code = [facility], 153) 34961: Behavioral Health Worker/Techni herson ID = [id number] for MAX ITOREN SHAWON POCT-GLUCOSE [id number] 21:25:00 Test Item Value Reference Range Interpretation Comments POC-GLUCOSE METER 287 mg/dL 70-110 H : TESTED A T [facility] 6720 (BEAKER) (test code = [facility], 153) 33826: Behavioral Health Worker/Techni herson ID = [id number] for ANNE FUENTES POCT-GLUCOSE [id number] 16:39:00 Test Item Value Reference Range Interpretation Comments POC-GLUCOSE METER 232 mg/dL 70-110 H : TESTED A T [facility] 6720 (BEAKER) (test code = [facility], 153) 05989: Behavioral Health Worker/Techni herson ID = [id number] for MAX TRAMMELL ARISTEO POCT-GLUCOSE [id number] 11:46:00 Test Item Value Reference Range Interpretation Comments POC-GLUCOSE METER 197 mg/dL 70-110 H : TESTED A T [facility] 6720 (BEAKER) (test code = [facility], 153) 10387: Behavioral Health Worker/Techni herson ID = [id number] for OREN QUEENON POCT-GLUCOSE [id number] 07:45:00 Test Item Value Reference Range Interpretation Comments POC-GLUCOSE METER 119 mg/dL 70-110 H : TESTED A T [facility] 67[facility] (BEAKER) (test code = [facility], [place] [place]) 90478: Behavioral Health Worker/Techni herson ID = [id number] for ARISTEO QUEEN POCT-GLUCOSE [id number] 21:30:00 Test Item Value Reference Range Interpretation Comments POC-GLUCOSE METER 165 mg/dL 70-110 H : TESTED A T [facility] 6720 (BEAKER) (test code = [facility], [facility]) 82706: Behavioral Health Worker/Techni herson ID = [id number] for POLLO JACKSON POCT-GLUCOSE [id number] 16:02:00 Test Item Value Reference Range Interpretation Comments POC-GLUCOSE METER 162 mg/dL 70-110 H : TESTED A T [facility] 6720 (BEAKER) (test code = [facility], [facility]) 31387: Behavioral Health Worker/Techni herson ID = [id number] for Tarah Schwab POCT-GLUCOSE [id number] 12:27:00 Test Item Value Reference Range Interpretation Comments POC-GLUCOSE METER 190 mg/dL 70-110 H : TESTED A T [facility] 6720 (BEAKER) (test code = [facility], [facility]) 46374: Behavioral Health Worker/Techni herson ID = [id number] for Tarah Schwab POCT-GLUCOSE [id number] 08:12:00 Test Item Value Reference Range Interpretation Comments POC-GLUCOSE METER 160 mg/dL 70-110 H : TESTED A T [facility] 6720 (BEAKER) (test code = [facility], [facility]) 57002: Behavioral Health Worker/Techni herson ID = [id number] for Tarah Schwab CBC with platelet count + automated [id number] 04:55:00 Test Item Value Reference Range Interpretation [...] 450 K/CU MM MPV (test code = 11200-6) 9.2 fL 9.4-12.3 L nRBC (test code [...] 2801) Lab Interpretation (test code = Abnormal 13860-4) [facility] W/PLT COUNT & AUTO [id number] 04:55:00 Test Item Value Reference Range Interpretation [...] PERCENT (BEAKER) (test code = 2801) POCT-GLUCOSE [id number] 21:28:00 Test Item Value Reference Range Interpretation Comments POC-GLUCOSE METER 217 mg/dL 70-110 H : TESTED A T [facility] 6720 (BEAKER) (test code = [facility], 153) 07462: Behavioral Health Worker/Techni herson ID = [id number] for AN ANNE MCNAMARA POCT-GLUCOSE [id number] 16:08:00 Test Item Value Reference Range Interpretation Comments POC-GLUCOSE METER 140 mg/dL 70-110 H : TESTED A T [facility] 6720 (BEAKER) (test code = [facility], 1538) 57350: Behavioral Health Worker/Techni herson ID = [id number] for Tarah Schwab POCT-GLUCOSE [id number] 13:12:00 Test Item Value Reference Range Interpretation Comments POC-GLUCOSE METER 218 mg/dL 70-110 H : TESTED A T [facility] 6720 (BEAKER) (test code = [facility] Braulio [facility], 1538) 88396: Behavioral Health Worker/Techni herson ID = [id number] for Tarah Schwab POCT-GLUCOSE [id number] 08:19:00 Test Item Value Reference Range Interpretation Comments POC-GLUCOSE METER 246 mg/dL 70-110 H : TESTED A T [facility] 6720 (BEAKER) (test code = [facility] Braulio [facility], 1538) 57125: Behavioral Health Worker/Techni herson ID = [id number] for Tarah Schwab CBC W/PLT COUNT & AUTO [id number] 06:06:00 Test Item Value Reference Range Interpretation [...] PERCENT (BEAKER) (test code = 2801) POCT-GLUCOSE [id number] 21:12:00 Test Item Value Reference Range Interpretation Comments POC-GLUCOSE METER 186 mg/dL 70-110 H : TESTED A T [facility] 6720 (BEAKER) (test code = [facility], 153) 20838: Behavioral Health Worker/Techni herson ID = [id number] for NILDA LLAMAS POCT-GLUCOSE [id number] 15:54:00 Test Item Value Reference Range Interpretation Comments POC-GLUCOSE METER 185 mg/dL 70-110 H : TESTED A T [facility] 6720 (BEAKER) (test code = [facility], 153) 76536: Behavioral Health Worker/Techni herson ID = [id number] for LA AMYNE, GONZÁLEZ POCT-GLUCOSE [id number] 11:38:00 Test Item Value Reference Range Interpretation Comments POC-GLUCOSE METER 214 mg/dL 70-110 H : TESTED A T [facility] 6720 (BEAKER) (test code = [facility], 153) 00881: Behavioral Health Worker/Techni herson ID = [id number] for LA GRONE, GONZÁLEZ POCT-GLUCOSE [id number] 08:01:00 Test Item Value Reference Range Interpretation Comments POC-GLUCOSE METER 148 mg/dL 70-110 H : TESTED A T [facility] 6720 (BEAKER) (test code = LOREE Ramsey [facility], 1538) 22947: Behavioral Health Worker/Techni herson ID = [id number] for GONZÁLEZ JC CBC W/PLT COUNT & AUTO [id number] 04:50:00 Test Item Value Reference Range Interpretation [...] PERCENT (BEAKER) (test code = 2801) POCT-GLUCOSE [id number] 21:14:00 Test Item Value Reference Range Interpretation Comments POC-GLUCOSE METER 192 mg/dL 70-110 H : TESTED A T [facility] 6720 (BEAKER) (test code = [facility], 1538) 55176: Behavioral Health Worker/Techni herson ID = [id number] for CAIT VELA POCT-GLUCOSE [id number] 16:33:00 Test Item Value Reference Range Interpretation Comments POC-GLUCOSE METER 141 mg/dL 70-110 H : TESTED A T [facility] 6720 (BEAKER) (test code = [facility], 1538) 50132: Behavioral Health Worker/Techni herson ID = [id number] for ARISTEO QUEEN POCT-GLUCOSE [id number] 11:49:00 Test Item Value Reference Range Interpretation Comments POC-GLUCOSE METER 134 mg/dL 70-110 H : TESTED A T [facility] 6720 (BEAKER) (test code = [facility], 1538) 68594: Behavioral Health Worker/Techni herson ID = [id number] for ARISTEO QUEEN Prothrombin [id number] 09:36:00 Test Item Value Reference Range Interpretation [...] valves. Lab Interpretation Normal (test code = 20886-0) [facility] DistrictPROTHROMBIN TIME/[id number] 09:36:00 Test Item Value Reference Range Interpretation [...] (test code = 3.3 g/dL 3.5-5 L 25692-9) Alkaline Phosphatase 91 U/L 40-150 (test code = 6768-6) Total Bilirubin (test 0.8 mg/dL 0.2-1.2 code = 1975-2) Sodium (test code = 136 meq/L 414-203 7702-2) Potassium (test code = 4.1 meq/L 3.5-5.1 2823-3) Chloride (test code = 105 meq/L 98-107 2075-0) CO2 (test code = 24 meq/L 22-29 8-9) BUN (test code = 12 mg/dL 7- 3094-0) Creatinine (test code 0.73 mg/dL 0.57-1.25 = 2160-0) Glucose (test code = 125 mg/dL 70-105 H 2345-7) Calcium (test code = 8.3 mg/dL 8.4-10.2 L 22401-8) AST (test code = 24 U/L 5-34 1920-8) ALT (test code = 22 U/L 6-55 1742-6) EGFR (test code = 78 mL/min/1.73 [place] [address]-3) NOT ACCURATE CREATININE CLEARANCE IN PREDICTING GLOMERULAR FILTRATION RATE . ESTIMATED GFR I S NOT APPLICABLE FOR DIALYSIS PATIENTS. BASIA (test code = BASIA) Behavioral Health Worker ID - [id number] Lab Interpretation Abnormal (test code = 79691-0) [facility] [id number] 09:32:00 Test Item Value Reference Range Interpretation [...] S NOT APPLICABLE FOR DIALYSIS PATIEN TS. Behavioral Health Worker ID - NTPPOCT-GLUCOSE [id number] 08:02:00 Test Item Value Reference Range Interpretation Comments POC-GLUCOSE METER 122 mg/dL 70-110 H : TESTED A T [facility] 6720 (BEAKER) (test code = [place], 1538) [address]: Behavioral Health Worker/Techni herson ID = [id number] for ARISTEO QUEEN POCT-GLUCOSE [id number] 22:30:00 Test Item Value Reference Range Interpretation Comments POC-GLUCOSE METER 122 mg/dL 70-110 H : TESTED A T [facility] 6720 (BEAKER) (test code = [place] Ramsey [facility], 1538) [address]: Behavioral Health Worker/Techni herson ID = [id number] for MARILU ODONNELL POCT-GLUCOSE [id number] 15:33:00 Test Item Value Reference Range Interpretation Comments POC-GLUCOSE METER 200 mg/dL 70-110 H : TESTED A T [facility] 6720 (BEAKER) (test code = LOR[place] Ramsey [facility], 1538) 286[address]: Behavioral Health Worker/Techni herson ID = [id number] for ARISTEO QUEEN Basic Metabolic [id number] 12:06:00 Test Item Value Reference Range Interpretation Comments Sodium (test code = 137 meq/L 780-700 8534-2) Potassium (test code = 3.9 meq/L 3.5-5.1 2823-3) Chloride (test code = 105 meq/L 98-107 2075-0) CO2 (test code = 25 meq/L 22-29 2028-9) BUN (test code = 10 mg/dL 7-21 3094-0) Creatinine (test code 0.71 mg/dL 0.57-1.25 = 2160-0) Glucose (test code = 121 mg/dL 70-105 H 2345-7) Calcium (test code = 8.4 mg/dL 8.4-10.2 38856-7) EGFR (test code = 81 mL/min/1.73 [place] [address]-4) NOT ACCURATE CREATININE CLEARANCE IN PREDICTING GLOMERULAR FILTRATION RATE . ESTIMATED GFR I S NOT APPLICABLE FOR DIALYSIS PATIENTS. BASIA (test code = BASIA) Behavioral Health Worker ID - JORGE ALBERTO Pulido Lab Interpretation Abnormal (test code = 26190-8) [facility] [id number] 12:06:00 Test Item Value Reference Range Interpretation [...] S NOT APPLICABLE FOR DIALYSIS PATIEN TS. Behavioral Health Worker ID - JORGE ALBERTO CPOCT-GLUCOSE [id number] 11:59:00 Test Item Value Reference Range Interpretation Comments POC-GLUCOSE METER 129 mg/dL 70-110 H : TESTED A T [facility] 6720 ([facility]) (test code = [place], 1538) [address]: Behavioral Health Worker/Techni herson ID = [id number] for ARISTEO QUEEN CBC (Hemogram only)2020-02-11 11:51:00 [...] 450 K/CU MM MPV (test code = 43176-0) 9.8 fL 9.4-12.3 nRBC (test code = 413) 0 0- 0 /100 WBC Lab Interpretation (test code = Abnormal 96373-2) [facility] (HEMOGRAM ONLY)2020-02-11 11:51:00 Test Item Value [...] 0-0 (BEAKER) (test code = 413) POCT-GLUCOSE [id number] 11:26:00 Test Item Value Reference Range Interpretation Comments POC-GLUCOSE METER 138 mg/dL 70-110 H : TESTED A T [facility] 6720 (BEAKER) (test code = [place], 1538) [address]: Behavioral Health Worker/Techni herson ID = [id number] for AN ANDERSANNE BASIC METABOLIC [id number] 08:02:00 Test Item Value Reference Range Interpretation [...] S NOT APPLICABLE FOR DIALYSIS PATIEN TS. Behavioral Health Worker ID - JORGE ALBERTO CCBC W/PLT COUNT & AUTO [id number] 08:00:00 Test Item Value Reference Range Interpretation [...] PERCENT (BEAKER) (test code = 2801) POCT-GLUCOSE [id number] 07:57:00 Test Item Value Reference Range Interpretation Comments POC-GLUCOSE METER 100 mg/dL 70-110 : TESTED A T [facility] 6720 (BEAKER) (test code = [place], 1538) [address]: Behavioral Health Worker/Techni herson ID = [id number] for ARISTEO QUEEN Vitamin B12 and [id number] 04:11:00 Test Item Value Reference Range Interpretation Comments Vitamin B12 (test code = 521 pg/mL 222-184 6089-9) Folate (test code = 18.00 ng/mL >=7.00 2284-8) BASIA (test code = BASIA) Behavioral Health Worker ID - [id number] Lab Interpretation (test Normal code = 28311-6) [facility] District[facility]ITAMIN B12 AND [id number] 04:11:00 Test Item Value Reference Range Interpretation Comments VITAMIN B12 (BEAKER) (test code = 521 pg/mL 213-816 774) FOLATE (BEAKER) (test code = 362) 18.00 ng/mL >=7.00 Behavioral Health Worker ID - EDASIIron, TIBC, % sat. (without ferritin)2020-02-10 23:57:00 Test Item Value Reference Range Interpretation Comments Iron (test code = 2498-4) 24.0 ug/dL 40-160 L TIBC (test code = 2500-7) 253 ug/dL 250-450 Iron % Saturation (test 9 % 20-55 L code = 2502-3) BASIA (test code = BASIA) Behavioral Health Worker ID - [id number] L Lab Interpretation (test Abnormal code = 55586-7) [facility] DistrictIRON, TIBC, % SAT. (WITHOUT FERRITIN)2020-02-10 23:57:00 Test Item Value Reference Range Interpretation Comments IRON (BEAKER) (test code = 547) 24.0 ug/dL 40.0-160.0 L TOTAL IRON BINDING CAPACITY 253 ug/dL 250-450 (BEAKER) (test code = 769) IRON % SATURATION (2) (BEAKER) 9 % 20-55 L (test code = 2590) Behavioral Health Worker ID - FARHAT LPOCT-GLUCOSE [id number] 18:15:00 Test Item Value Reference Range Interpretation Comments POC-GLUCOSE METER 143 mg/dL 70-110 H : TESTED A T [facility] 6720 (BEAKER) (test code = [facility], 1538) 40[address]: Behavioral Health Worker/Techni herson ID = [id number] for DEMOND REYES POCT-GLUCOSE [id number] 11:36:00 Test Item Value Reference Range Interpretation Comments POC-GLUCOSE METER 181 mg/dL 70-110 H : TESTED A T [facility] 6720 (BEAKER) (test code = [facility], 1538) 17752: Behavioral Health Worker/Techni herson ID = [id number] for JEANINE RIOJAS SARS-CoV2/RT-PCR ([facility] Ref [facility])2020-02-07 12:36:00 Test Item Value Reference Range Interpretation Comments SARS-COV2/RT-PCR Negative Not Detected, (test code = Negative, See 15345-8) external report for linked test SARS-COV-2 [facility] NOE PERFORMING LAB (test code = 56052-6) BASIA (test code = Negative result for [...] of the Act. Fact Sheet for Healthcare Providers:https://www.Akita/sites/default/f jg/product/documents/F act_Sheet_HC_Providers_L eun_HSKW-AgQ-6.pdf Fact Sheet for Healthcare Patients:https://www.Owingo/sites/default/fi les/product/documents/Fa ct_Sheet_Patients_Lyra_S ARS-CoV-2.pdf Performing Laboratory:[facility], [place] [address] [place], [place] [address]ARS-COV2/RT-PCR ([facility])2020-02-07 12:36:00 Test Item Value Reference Range Interpretation Comments SARS-COV2/RT-PCR (test Negative Not Detected, Negative, code = 3332435) See external report for linked test SARS-COV-2 PERFORMING LAB [facility] NOE (test code = 9071813) Negative result for this test determines that [...] 564(g) of the Act.Fact Sheet for Healthcare Providers:https://www.InflaRx.Sharalike/sites/default/files/product/documents/Fact_Shee t_KV_Dejojbaiv_Lnrd_PBEH-DqX-8.pdfFact Sheet for Healthcare Patients:https://www.InflaRx.Sharalike/sites/default/files/product/ documents/Yuez_Xodpz_Ekkddaxq_Fzsm_NYOE-SyX-6.pdfPerforming Laboratory:[facility], [place] [address]EOUBW METABOLIC PANEL 2020-02-06 12:10:00 Test Item Value [...] S NOT APPLICABLE FOR DIALYSIS PATIEN TS. Behavioral Health Worker ID - [id number] 11:50:00 Test Item Value Reference Range Interpretation Comments Hemoglobin (test code = 12.0 11.2- 15.7 GM/DL 786-4) BASIA (test code = BASIA) Behavioral Health Worker ID - [id number] Lab Interpretation (test Normal code = 25735-7) [facility]2020-08-21 11:50:00 Test Item Value Reference Range Interpretation Comments HEMOGLOBIN (BEAKER) (test code = 12.0 GM/DL 11.2-15.7 410) Behavioral Health Worker ID - [id number] culture + smear (non-sputum)2020-01-26 09:25:00 Test Item Value Reference Range Interpretation Comments Result (test code = No acid-fast bacilli 6463-4) isolated in 42 days AFB Smear (test code = No acid fast bacilli 01121-2) seen [facility] + SMEAR (NON-SPUTUM)2020-01-26 09:25:00 Test Item [...] code = 994) seen Fungus culture + [id number] 15:27:00 Test Item Value Reference Range Interpretation Comments Result (test code = No fungus isolated in 6463-4) 28 days Fungus Smear (test <1+ budding yeast code = 1406) [facility] + [id number] 15:27:00 Test Item Value Reference Range Interpretation Comments CULTURE (BEAKER) (test No fungus isolated in code = 1095) 28 days FUNGUS SMEAR (BEAKER) <1+ budding yeast (test code = 1406) FUNGUS CULTURE + [id number] 16:04:00 Test Item Value Reference Range Interpretation Comments CULTURE (BEAKER) (test No fungus isolated in code = 1095) 28 days FUNGUS SMEAR (BEAKER) No fungi seen (test code = 1406) FUNGUS CULTURE + [id number] 16:21:00 Test Item Value Reference Range Interpretation Comments CULTURE (BEAKER) (test No fungus isolated in code = 1095) 28 days FUNGUS SMEAR (BEAKER) No fungi seen (test code = 1406) POCT-GLUCOSE [id number] 11:49:00 Test Item Value Reference Range Interpretation Comments POC-GLUCOSE METER 94 mg/dL 70-110 : TESTED A T [facility] (BEAKER) (test code = [place], 1538) [place] [address] 0: Behavioral Health Worker/Techni herson ID = [id number] for RACHELLE GRAY POCT-GLUCOSE [id number] 07:08:00 Test Item Value Reference Range Interpretation Comments POC-GLUCOSE METER 87 mg/dL 70-110 : TESTED A T [facility] 7[address] (BEAKER) (test code = [place], 1538) [place] [address] 0: Behavioral Health Worker/Techni herson ID = [id number] for POLLO CABALLERO POCT-GLUCOSE [id number] 00:12:00 Test Item Value Reference Range Interpretation Comments POC-GLUCOSE METER 111 mg/dL 70-110 H : TESTED A T [facility] (BEAKER) (test code [place] E [place] A, = 1538) [place] [address] 0: Behavioral Health Worker/Techni herson ID = [id number] for POLLO CABALLERO POCT-GLUCOSE [id number] 16:26:00 Test Item Value Reference Range Interpretation Comments POC-GLUCOSE METER 146 mg/dL 70-110 H : TESTED A T [facility] (BEAKER) (test code [place] E BLD[place] A, = 1538) [place] [address] 0: Behavioral Health Worker/Techni herson ID = [id number] for RACHELLE GRAY PV, VENOUS DOPPLER ARM, [id number] 13:49:00Reason for exam:->LUE pain and nodule, r/o DVTAddendum BeginsREPORT STATUS:A Doppler ultrasound of the left upper extremity dated 12/29/2019 Comment: Color Doppler and spectral analysis of the left upper extremity were obtained. The left jugular vein, subclavian, axillary, brachial, basilic, and cephalic veins are patent without thrombus. Impression: No deep venous thrombosis in the left upper extremity. Signed: Deann Begr Verified Date/Time: 12/30/2019 13:49:05 Reading Location: [place] [id number] CT Body Reading RoomAddendum EndsFINAL REPORT Doppler [...] Berg Verified Date/Time: 12/29/2019 18:22:22 Reading Location: [facility] [id number] Consult Reading Room POCT-GLUCOSE [id number] 12:31:00 Test Item Value Reference Range Interpretation Comments POC-GLUCOSE METER 122 mg/dL 70-110 H : TESTED A T [facility] 7200 (BEAKER) (test code [place] E BLDG A, = 1538) [place] [address] 0: Behavioral Health Worker/Techni herson ID = [id number] for JAUN CAMARGO POCT-GLUCOSE [id number] 06:42:00 Test Item Value Reference Range Interpretation Comments POC-GLUCOSE METER 96 mg/dL 70-110 : TESTED A T [facility] (BEAKER) (test code = [place], 1538) [place] [address] 0: Behavioral Health Worker/Techni herson ID = [id number] for RAMIRO PRESLEY POCT-GLUCOSE [id number] 20:26:00 Test Item Value Reference Range Interpretation Comments POC-GLUCOSE METER 164 mg/dL 70-110 H : TESTED A T [facility] (BEAKER) (test code [place] E BLD[place] A, = 1538) [place] [address] 0: Behavioral Health Worker/Techni herson ID = [id number] for POLLO CABALLREO Venous doppler arm, [id number] 18:22:00Interface, External Ris In - 12/30/2019 1:51 [...] Berg Verified Date/Time: 12/30/2019 13:49:05 Reading Location: [address] Body Reading RoomAddendum EndsFINAL REPORT Doppler [...] Berg Verified Date/Time: 12/29/2019 18:22:22 Reading Location: [address] Consult Reading [facility] [id number] 16:59:00 Test Item Value Reference Range Interpretation Comments POC-GLUCOSE METER 199 mg/dL 70-110 H : TESTED A T [facility] (BEAKER) (test code [place] E BLD[place] A, = 1538) [place] [address] 0: Behavioral Health Worker/Techni herson ID = [id number] for OMIW SHANNAN, SYRIETA POCT-GLUCOSE [id number] 11:17:00 Test Item Value Reference Range Interpretation Comments POC-GLUCOSE METER 113 mg/dL 70-110 H : TESTED A T [facility] (BEAKER) (test code [place] E BLD[place] A, = 1538) [place] [address] 0: Behavioral Health Worker/Techni herson ID = [id number] for OMIW SHANNAN, SYRIETA POCT-GLUCOSE [id number] 06:28:00 Test Item Value Reference Range Interpretation Comments POC-GLUCOSE METER 107 mg/dL 70-110 : TESTED A T [facility] (BEAKER) (test code [place] E [place]LD[place] A, = 1538) [place] [address] 0: Behavioral Health Worker/Techni herson ID = [id number] for ROSY FAUST BASIC METABOLIC [id number] 05:30:00 Test Item Value Reference Range Interpretation [...] 9.4-12.3 L (test code = 754) POCT-GLUCOSE [id number] 20:59:00 Test Item Value Reference Range Interpretation Comments POC-GLUCOSE METER 173 mg/dL 70-110 H : TESTED A T [facility] (BEAKER) (test code [place] E BLD[place] A, = 1538) [place] [address] 0: Behavioral Health Worker/Techni herson ID = [id number] for ROSY FAUST POCT-GLUCOSE [id number] 16:41:00 Test Item Value Reference Range Interpretation Comments POC-GLUCOSE METER 151 mg/dL 70-110 H : TESTED A T [facility] 7200 (BEAKER) (test code [place] E BLDG A, = 1538) [place] [address] 0: Behavioral Health Worker/Techni herson ID = [id number] for AVIVA PRUITT POCT-GLUCOSE [id number] 12:07:00 Test Item Value Reference Range Interpretation Comments POC-GLUCOSE METER 130 mg/dL 70-110 H : TESTED A T [facility] (BEAKER) (test code [place] E BLD[place] A, = 1538) [place] [address] 0: Behavioral Health Worker/Techni herson ID = [id number] for JOHN ERA, AVIVA POCT-GLUCOSE [id number] 06:28:00 Test Item Value Reference Range Interpretation Comments POC-GLUCOSE METER 99 mg/dL 70-110 : TESTED A T [facility] (BEAKER) (test code = [place], 1538) [place] [address] 0: Behavioral Health Worker/Techni herson ID = [id number] for BENNY , ROSY POCT-GLUCOSE [id number] 20:35:00 Test Item Value Reference Range Interpretation Comments POC-GLUCOSE METER 230 mg/dL 70-110 H : TESTED A T [facility] (BEAKER) (test code [place] E [place]LD[place] A, = 1538) [place] [address] 0: Behavioral Health Worker/Techni herson ID = [id number] for BENNY , ROSY POCT-GLUCOSE [id number] 16:19:00 Test Item Value Reference Range Interpretation Comments POC-GLUCOSE METER 184 mg/dL 70-110 H : TESTED A T [facility] (BEAKER) (test code [place] E BLD[place] A, = 1538) [place] [address] 0: Behavioral Health Worker/Techni herson ID = [id number] for JOHN ERA, AVIVA POCT-GLUCOSE [id number] 11:24:00 Test Item Value Reference Range Interpretation Comments POC-GLUCOSE METER 120 mg/dL 70-110 H : TESTED A T [facility] (BEAKER) (test code [place] E BLDG A, = 1538) [place] [address] 0: Behavioral Health Worker/Techni herson ID = [id number] for JOHN ERA, AVIVA POCT-GLUCOSE [id number] 06:15:00 Test Item Value Reference Range Interpretation Comments POC-GLUCOSE METER 80 mg/dL 70-110 : TESTED A T [facility] (BEAKER) (test code = [place], 1538) [place] [address] 0: Behavioral Health Worker/Techni herson ID = [id number] for BC EDOUARD POCT-GLUCOSE [id number] 20:23:00 Test Item Value Reference Range Interpretation Comments POC-GLUCOSE METER 140 mg/dL 70-110 H : TESTED A T [facility] (BEAKER) (test code [place] E BLDG A, = 1538) [place] [address] 0: Behavioral Health Worker/Techni herson ID = [id number] for BC EDOUARD POCT-GLUCOSE [id number] 16:13:00 Test Item Value Reference Range Interpretation Comments POC-GLUCOSE METER 163 mg/dL 70-110 H : TESTED A T [facility] (BEAKER) (test code [place] E BLD[place] A, = 1538) [place] [address] 0: Behavioral Health Worker/Techni herson ID = [id number] for WALDEMAR BAL COMPREHENSIVE METABOLIC [id number] 12:38:00 Test Item Value Reference Range Interpretation [...] PATIEN TS. CBC W/PLT COUNT & AUTO [id number] 12:19:00 Test Item Value Reference Range Interpretation [...] PERCENT (BEAKER) (test code = 2801) POCT-GLUCOSE [id number] 11:45:00 Test Item Value Reference Range Interpretation Comments POC-GLUCOSE METER 122 mg/dL 70-110 H : TESTED A T [facility] (BEAKER) (test code [place] E BLDG A, = 1538) [place] [address] 0: Behavioral Health Worker/Techni herson ID = [id number] for ARDEN BEARDENWALDEMAR BRIONES POCT-GLUCOSE [id number] 06:46:00 Test Item Value Reference Range Interpretation Comments POC-GLUCOSE METER 105 mg/dL 70-110 : TESTED A T [facility] (BEAKER) (test code [place] E BLD[place] A, = 1538) [place] [address] 0: Behavioral Health Worker/Techni herson ID = [id number] for POLLO CABALLERO POCT-GLUCOSE [id number] 20:54:00 Test Item Value Reference Range Interpretation Comments POC-GLUCOSE METER 159 mg/dL 70-110 H : TESTED A T [facility] (BEAKER) (test code [place] E BLD[place] A, = 1538) [place] [address] 0: Behavioral Health Worker/Techni herson ID = [id number] for POLLO CABALLERO POCT-GLUCOSE [id number] 17:04:00 Test Item Value Reference Range Interpretation Comments POC-GLUCOSE METER 133 mg/dL 70-110 H : TESTED A T [facility] (BEAKER) (test code [place] E BLDG A, = 1538) [place] [address] 0: Behavioral Health Worker/Techni herson ID = [id number] for KALYN MARTINEZ POCT-GLUCOSE [id number] 11:21:00 Test Item Value Reference Range Interpretation Comments POC-GLUCOSE METER 124 mg/dL 70-110 H : TESTED A T [facility] (BEAKER) (test code [place] E BLDG A, = 1538) [place] [address] 0: Behavioral Health Worker/Techni herson ID = [id number] for KALYN MARTINEZ POCT-GLUCOSE [id number] 06:43:00 Test Item Value Reference Range Interpretation Comments POC-GLUCOSE METER 90 mg/dL 70-110 : TESTED A T [facility] (BEAKER) (test code = [place] A, 1538) [place] [address] 0: Behavioral Health Worker/Techni herson ID = [id number] for POLLO CABALLERO POCT-GLUCOSE [id number] 20:55:00 Test Item Value Reference Range Interpretation Comments POC-GLUCOSE METER 169 mg/dL 70-110 H : TESTED A T [facility] (BEAKER) (test code [place] E BLDG A, = 1538) [place] [address] 0: Behavioral Health Worker/Techni herson ID = [id number] for POLLO CABALLERO POCT-GLUCOSE [id number] 16:35:00 Test Item Value Reference Range Interpretation Comments POC-GLUCOSE METER 164 mg/dL 70-110 H : TESTED A T [facility] (BEAKER) (test code [place] E BLDG A, = 1538) [place] [address] 0: Behavioral Health Worker/Techni herson ID = [id number] for WALDEMAR BAL POCT-GLUCOSE [id number] 11:25:00 Test Item Value Reference Range Interpretation Comments POC-GLUCOSE METER 174 mg/dL 70-110 H : TESTED A T [facility] (BEAKER) (test code [place] E BLDG A, = 1538) [place] [address] 0: Behavioral Health Worker/Techni herson ID = [id number] for WALDEMAR BAL POCT-GLUCOSE [id number] 06:32:00 Test Item Value Reference Range Interpretation Comments POC-GLUCOSE METER 108 mg/dL 70-110 : TESTED A T [facility] (BEAKER) (test code [place] E BLDG A, = 1538) [place] [address] 0: Behavioral Health Worker/Techni herson ID = [id number] for ROSY FAUST POCT-GLUCOSE [id number] 20:44:00 Test Item Value Reference Range Interpretation Comments POC-GLUCOSE METER 194 mg/dL 70-110 H : TESTED A T [facility] (BEAKER) (test code [place] E BLDG A, = 1538) [place] [address] 0: Behavioral Health Worker/Techni herson ID = [id number] for BENNY ROSY POCT-GLUCOSE [id number] 16:59:00 Test Item Value Reference Range Interpretation Comments POC-GLUCOSE METER 156 mg/dL 70-110 H : TESTED A T [facility] (BEAKER) (test code [place] E BLDG A, = 1538) [place] [address] 0: Behavioral Health Worker/Techni herson ID = [id number] for CASEY ANO, JUCEL FRAN POCT-GLUCOSE [id number] 11:42:00 Test Item Value Reference Range Interpretation Comments POC-GLUCOSE METER 181 mg/dL 70-110 H : TESTED A T [facility] (BEAKER) (test code [place] E BLDG A, = 1538) [place] [address] 0: Behavioral Health Worker/Techni herson ID = [id number] for CASEY ANO, JUCEL FRAN POCT-GLUCOSE [id number] 06:10:00 Test Item Value Reference Range Interpretation Comments POC-GLUCOSE METER 83 mg/dL 70-110 : TESTED A T [facility] (BEAKER) (test code = [place] A, 1538) [place] [address] 0: Behavioral Health Worker/Techni herson ID = [id number] for BENNY ROSY POCT-GLUCOSE [id number] 20:42:00 Test Item Value Reference Range Interpretation Comments POC-GLUCOSE METER 221 mg/dL 70-110 H : TESTED A T [facility] (BEAKER) (test code [place] E BLDG A, = 1538) [place] [address] 0: Behavioral Health Worker/Techni herson ID = [id number] for BENNY ROSY Anaerobic [id number] 18:21:00 Test Item Value Reference Range Interpretation Comments Result (test code = No anaerobes isolated 6463-4) [facility] [id number] 18:21:00 Test Item Value Reference Range Interpretation Comments CULTURE (BEAKER) (test No anaerobes isolated code = 1095) POCT-GLUCOSE [id number] 16:23:00 Test Item Value Reference Range Interpretation Comments POC-GLUCOSE METER 193 mg/dL 70-110 H : TESTED A T [facility] (BEAKER) (test code [place] E BLDG A, = 1538) [place] [address] 0: Behavioral Health Worker/Techni herson ID = [id number] for JOHN ERAAVIVA POCT-GLUCOSE [id number] 11:54:00 Test Item Value Reference Range Interpretation Comments POC-GLUCOSE METER 117 mg/dL 70-110 H : TESTED A T [facility] (BEAKER) (test code [place] E BLDG A, = 1538) [place] [address] 0: Behavioral Health Worker/Techni herson ID = [id number] for JOHN ERA, AVIVA POCT-GLUCOSE [id number] 06:35:00 Test Item Value Reference Range Interpretation Comments POC-GLUCOSE METER 90 mg/dL 70-110 : TESTED A T [facility] 7200 (BEAKER) (test code = CAMBRI DGE BLDG A, 1538) [place] [address] 0: Behavioral Health Worker/Techni herson ID = [id number] for NATHAN BLAND POLLO BASIC METABOLIC [id number] 05:02:00 Test Item Value Reference Range Interpretation [...] fL 9.0-12.3 (test code = 754) POCT-GLUCOSE [id number] 20:52:00 Test Item Value Reference Range Interpretation Comments POC-GLUCOSE METER 164 mg/dL 70-110 H : TESTED A T [facility] 7200 (BEAKER) (test code CAMBRIDG E BLDG A, = 1538) [place] [address] 0: Behavioral Health Worker/Techni herson ID = [id number] for NATHAN BLAND POLLO POCT-GLUCOSE [id number] 15:52:00 Test Item Value Reference Range Interpretation Comments POC-GLUCOSE METER 142 mg/dL 70-110 H : TESTED A T [facility] 7200 (BEAKER) (test code CAMBRIDG E BLDG A, = 1538) [place] [address] 0: Behavioral Health Worker/Techni herson ID = [id number] for NADIR SHANNAN KALYN POCT-GLUCOSE [id number] 11:54:00 Test Item Value Reference Range Interpretation Comments POC-GLUCOSE METER 153 mg/dL 70-110 H : TESTED A T [facility] 7200 (BEAKER) (test code CAMBRIDG E BLDG A, = 1538) [place] [address] 0: Behavioral Health Worker/Techni herson ID = [id number] for KALYN MARTINEZ POCT-GLUCOSE [id number] 06:30:00 Test Item Value Reference Range Interpretation Comments POC-GLUCOSE METER 95 mg/dL 70-110 : TESTED A T [facility] 7200 (BEAKER) (test code = CAMB[place] DGE BLDG A, 1538) [place] [address] 0: Behavioral Health Worker/Techni herson ID = [id number] for POLLO CABALLERO POCT-GLUCOSE [id number] 20:31:00 Test Item Value Reference Range Interpretation Comments POC-GLUCOSE METER 211 mg/dL 70-110 H : TESTED A T [facility] (BEAKER) (test code CAMBRIDG E BLDG A, = 1538) [place] [address] 0: Behavioral Health Worker/Techni herson ID = [id number] for POLLO CABALLERO POCT-GLUCOSE [id number] 16:40:00 Test Item Value Reference Range Interpretation Comments POC-GLUCOSE METER 184 mg/dL 70-110 H : TESTED A T [facility] (BEAKER) (test code CAMBRIDG E BLDG A, = 1538) [place] [address] 0: Behavioral Health Worker/Techni herson ID = [id number] for IJEOMA CACERES POCT-GLUCOSE [id number] 12:38:00 Test Item Value Reference Range Interpretation Comments POC-GLUCOSE METER 102 mg/dL 70-110 : TESTED A T [facility] (BEAKER) (test code CAMBRIDG E BLDG A, = 1538) [place] [address] 0: Behavioral Health Worker/Techni herson ID = [id number] for RUSSELL CADENA POCT-GLUCOSE [id number] 06:36:00 Test Item Value Reference Range Interpretation Comments POC-GLUCOSE METER 107 mg/dL 70-110 : TESTED A T [facility] (BEAKER) (test code CAMBRIDG E BLDG A, = 1538) [place] [address] 0: Behavioral Health Worker/Techni herson ID = [id number] for POLLO CABALLERO POCT-GLUCOSE [id number] 21:08:00 Test Item Value Reference Range Interpretation Comments POC-GLUCOSE METER 189 mg/dL 70-110 H : TESTED A T [facility] (BEAKER) (test code CAMBRIDG E BLDG A, = 1538) [place] [address] 0: Behavioral Health Worker/Techni herson ID = [id number] for ANANT ARROYO POCT-GLUCOSE [id number] 16:19:00 Test Item Value Reference Range Interpretation Comments POC-GLUCOSE METER 194 mg/dL 70-110 H : TESTED A T [facility] (BEAKER) (test code CAMBRIDG E BLDG A, = 1538) [place] [address] 0: Behavioral Health Worker/Techni herson ID = [id number] for OMIW SHANNAN, SYRIETA POCT-GLUCOSE [id number] 12:19:00 Test Item Value Reference Range Interpretation Comments POC-GLUCOSE METER 136 mg/dL 70-110 H : TESTED A T [facility] (BEAKER) (test code CAMBRIDG E BLDG A, = 1538) [place] [address] 0: Behavioral Health Worker/Techni herson ID = [id number] for OMIW SHANNAN, SYRIETA POCT-GLUCOSE [id number] 06:29:00 Test Item Value Reference Range Interpretation Comments POC-GLUCOSE METER 74 mg/dL 70-110 : TESTED A T [facility] (BEAKER) (test code = CAMBRI DGE BLDG A, 1538) [place] [address] 0: Behavioral Health Worker/Techni herson ID = [id number] for BC EDOUARD [id number] 05:45:00 Test Item Value Reference Range Interpretation Comments Magnesium (test code = 98595-7) 2.0 mg/dL 1.6-2.6 Lab Interpretation (test code = Normal 89952-3) [facility] [id number] 05:45:00 Test Item Value Reference Range Interpretation [...] S NOT APPLICABLE FOR DIALYSIS PATIEN TS. [id number] 05:45:00 Test Item Value Reference Range Interpretation Comments MAGNESIUM (BEAKER) (test code = 2.0 mg/dL 1.6-2.6 627) CBC W/PLT COUNT & AUTO [id number] 05:28:00 Test Item Value Reference Range Interpretation [...] PERCENT (BEAKER) (test code = 2801) POCT-GLUCOSE [id number] 21:03:00 Test Item Value Reference Range Interpretation Comments POC-GLUCOSE METER 188 mg/dL 70-110 H : TESTED A T [facility] (BEAKER) (test code CAMBRIDG E BLDG A, = 1538) [place] [address] 0: Behavioral Health Worker/Techni herson ID = [id number] for JAVAN , BC POCT-GLUCOSE [id number] 17:00:00 Test Item Value Reference Range Interpretation Comments POC-GLUCOSE METER 136 mg/dL 70-110 H : TESTED A T [facility] (BEAKER) (test code CAMBRIDG E BLDG A, = 1538) [place] [address] 0: Behavioral Health Worker/Techni herson ID = [id number] for NWAJ IAKU, IJEOMA POCT-GLUCOSE [id number] 12:08:00 Test Item Value Reference Range Interpretation Comments POC-GLUCOSE METER 115 mg/dL 70-110 H : TESTED A T [facility] (BEAKER) (test code = [facility], 1538) [address]: Behavioral Health Worker/Techni herson ID = [id number] for MARIA C CHEW POCT-GLUCOSE [id number] 07:44:00 Test Item Value Reference Range Interpretation Comments POC-GLUCOSE METER 74 mg/dL 70-110 : TESTED A T [facility] (BEAKER) (test code = [facility], 1538) 100[address]: Behavioral Health Worker/Techni herson ID = [id number] for MARIA C LEWIS [id number] 07:37:00 Test Item Value Reference Range Interpretation Comments MAGNESIUM (BEAKER) (test code = 2.0 mg/dL 1.6-2.6 627) Behavioral Health Worker ID - EMERSONBASIC METABOLIC [id number] 07:37:00 Test Item Value Reference Range Interpretation [...] S NOT APPLICABLE FOR DIALYSIS PATIEN TS. Behavioral Health Worker ID - EMERSONCBC (HEMOGRAM ONLY)2019-12-18 07:02:00 Test [...] 0-0 (BEAKER) (test code = 413) POCT-GLUCOSE [id number] 21:19:00 Test Item Value Reference Range Interpretation Comments POC-GLUCOSE METER 190 mg/dL 70-110 H : TESTED A T [facility] (BEAKER) (test code = [facility], 153) [address]: Behavioral Health Worker/Techni herson ID = [id number] for Barb Martins POCT-GLUCOSE [id number] 18:00:00 Test Item Value Reference Range Interpretation Comments POC-GLUCOSE METER 140 mg/dL 70-110 H : TESTED A T [facility] (BEAKER) (test code = [facility], 153) [address]: Behavioral Health Worker/Techni herson ID = [id number] for CHINTAN RENEESILVERIORADHA CUMMINGSHOPE POCT-GLUCOSE [id number] 11:50:00 Test Item Value Reference Range Interpretation Comments POC-GLUCOSE METER 136 mg/dL 70-110 H : TESTED A T [facility]20 (BEAKER) (test code = [facility], 153) [address]: Behavioral Health Worker/Techni herson ID = [id number] for [place] LLMARIA C HIGGINS POCT-GLUCOSE [id number] 07:40:00 Test Item Value Reference Range Interpretation Comments POC-GLUCOSE METER 82 mg/dL 70-110 : TESTED A T [facility] 6720 (BEAKER) (test code = [place], 1538) [address]: Behavioral Health Worker/Techni herson ID = [id number] for MARIA C LEWIS [id number] 06:10:00 Test Item Value Reference Range Interpretation Comments MAGNESIUM (BEAKER) (test code = 2.2 mg/dL 1.6-2.6 627) Behavioral Health Worker ID - BSBASIC METABOLIC [id number] 06:10:00 Test Item Value Reference Range Interpretation [...] S NOT APPLICABLE FOR DIALYSIS PATIEN TS. Behavioral Health Worker ID - BSCBC (HEMOGRAM ONLY)2019-12-17 05:34:00 Test [...] 0-0 (BEAKER) (test code = 413) POCT-GLUCOSE [id number] 21:02:00 Test Item Value Reference Range Interpretation Comments POC-GLUCOSE METER 153 mg/dL 70-110 H : TESTED A T [facility] 6720 (BEAKER) (test code = [employer] [facility], 1538) 8[address]: Behavioral Health Worker/Techni herson ID = [id number] for PREETI WYATT POCT-GLUCOSE [id number] 16:46:00 Test Item Value Reference Range Interpretation Comments POC-GLUCOSE METER 155 mg/dL 70-110 H : TESTED A T [facility] 6720 (BEAKER) (test code = [facility] R [facility], 1538) [address]: Behavioral Health Worker/Techni herson ID = [id number] for BERRY GUILLERMINAMARCOSCHANELL RAD, CHEST, 1 VIEW, NON [id number] 15:53:00Reason for exam:->RIGHT PICC LINE TIP VERIFICATIONShould [...] humeral head suture anchor. Signed: Pollo Cortez MDReport Verified Date/Time: 12/16/2019 15:53:59 Reading Location: [facility] Radiology Reading Room XR chest 1 view portable / [id number] 15:53:00Interface, External Ris In - 12/16/2019 3:56 PM CDTFINAL REPORT CLINICAL HISTORY:RIGHT PICC LINE TIP VERIFICATION TECHNIQUE: 1 view of the chest. COMPARISON: None IMPRESSION: The tip of the right PICC line is near the cavoatrial junction. There are no focal infiltrates or effusions. The cardiomediastinal silhouette is magnified by technique. There is a right humeral head suture anchor. Signed: Pollo Cortez MDReport Verified Date/Time: 12/16/2019 15:53:59 Reading Location: [facility] Radiology Reading [facility] [id number] 13:27:00Surgical Pathology Report Case: [id number] Authorizing Provider: Gabriel Stovall DPM Collected: 12/02/2019 08:41 AM Ordering Location: [facility] Received: 12/02/2019 09:24 AM SERVICES Pathologist: [...] GANGRENOUS CHANGES Signing Pathologist Direct Phone Line: [phone] signed by Cassia Xiao MD on 12/16/2019 at 1:27 PMSlides for microscopic examination are received on 12/08/2019.MO/[id number] [id number] X 2Gangrene of right foot ([facility]) [I96] [id number] [id number] 66720D. Toe, rightB. Foot, rightC. Foot, rightA. Received [...] affected bone is red-pink, trabeculated and firm. Artisan Plasterer sectionsare submitted as follows:Section codeA1-skin and soft [...] cut surface is shabazz-yellow, trabeculated and firm. Artisan Plasterer sections are submitted in C1-C2 following decalcification.SHARON Leon (ASCP)director phone-C. The samples show variable amounts of gangrenous necrosis. In the C-sample, in slide C-1, there is prominent associated acute osteomyelitis in the C-1 slide. Some articular cartilage does not show significant inflammation.POCT-GLUCOSE [id number] 12:00:00 Test Item Value Reference Range Interpretation Comments POC-GLUCOSE METER 122 mg/dL 70-110 H : TESTED A T [facility] 6720 (BEAKER) (test code = [place], 1538) [address]: Behavioral Health Worker/Techni herson ID = [id number] for YADI KU [id number] 07:46:00 Test Item Value Reference Range Interpretation Comments MAGNESIUM (BEAKER) (test code = 2.2 mg/dL 1.6-2.6 627) Behavioral Health Worker BRANDEN ALFARO FBASIC METABOLIC [id number] 07:46:00 Test Item Value Reference Range Interpretation [...] S NOT APPLICABLE FOR DIALYSIS PATIEN TS. Behavioral Health Worker BRANDEN ALFARO FCBC (HEMOGRAM ONLY)2019-12-16 07:16:00 Test Item Value [...] 0-0 (BEAKER) (test code = 413) POCT-GLUCOSE [id number] 07:02:00 Test Item Value Reference Range Interpretation Comments POC-GLUCOSE METER 99 mg/dL 70-110 : TESTED A T [facility] 6720 (BEAKER) (test code = [facility], 1538) 43[address]: Behavioral Health Worker/Techni herson ID = [id number] for JEAN MARIE SANDERSONA POCT-GLUCOSE [id number] 21:27:00 Test Item Value Reference Range Interpretation Comments POC-GLUCOSE METER 287 mg/dL 70-110 H : TESTED A T [facility] 6720 (BEAKER) (test code = [facility], 1538) 66168: Behavioral Health Worker/Techni herson ID = [id number] for PREETI WYATT Tissue [id number] 18:37:00 Test Item Value Reference Range Interpretation Comments Case Report (test code Surgical Pathology = 104) Report Case: [id number] Authorizing Provider: Gabriel Stovall DPM Collected: 12/05/2019 01:01 PM Ordering Location: [facility] Received: 12/05/2019 01:40 PM SERVICES Pathologist: Naresh Tillman MD Specimen: Foot, Right, right foot amputation DIAGNOSIS (test code = e7kwdUTxFQKtf8olVOOjrYD 3220) uZzEwMzNcZnRuYmpcdWMxIH eodpBaXOgrs8WoO3LqRsXcY FxhbnNpXGRlZmxhbmcxMDMz XBX5bvKrBEVqTCvhWKTqMSu iVs9cqBQjpVqxKxRtIWXqg6 yehjBIdyhpdSr2s8qhVHEkD zD9nKDnWBgrH0lnlxXbxYXx QIByWBc3vM03DOMpcW7oxUC cUGdochUcQvW2DOhxHTJeEo K2HUQacKNuEDYgL6piORNiT MivXJQkEJkuzMZmVGN3iOhf m3V7cMQwyLFntXiyWyQlVoL tHAVVh9AvFWl2oZjhH0DpUQ MpTaH8zFZtVPCtGDrxOSSgD BHrhpD1iI87NPwletK4nPPq a5Jjp27hb482uP9hlKQyDRI 3KFSmJRWpqVShHEPpSCH9ZH XayPNhY7j5XeEyaESlZ8C6H yDreNBrM6G1QzKcoGGiR9Q4 TiKctDXfCDZhdRDxMo9jwBE uoGEfyj8awg77NUB0l5XeiR gbDJO5ACB2HcBcKk9huDGwV UNrSR3aMgAgaCQnSDNoov00 aFtkGErtjlTppP7pKbBeRPS cyXGkPYXlNP6mwYDtMAIblQ 5ucmxjXHBnYnJkcmhlYWRcc RaruhGoIo2iaJndWWC9KGki H3sckP2xViM2IIjlV4sunC0 zKCk9WPbnwPJ8VLJsgM5cKE 3lcdnih4kqPdZpLU8usgaqn 1eyWfGnQR9neds9j4npMiAc FA5viglcf8nrRmHoBGypSGO oabkmHDRha1ThgdfrEZYiw0 UiU4LrvOdlO00uoRcnB43nZ TRteUbsdC3yfXiwrE2uKyYl ZnMyNFxxbFxwbGFpblxmMVx mczIwXGxhbmcxMDMzXGhpY2 feDgCxGKWxrPbhACgxt0KkO YYeAJGjKvWvFoxXSKRuQd1E KYbjCFCDAsFNLBDEZPTVK2T YJOOVGGBJUYSHH394BIFaph AuEJBfKZUPE8oWZFMWMXFQU 7QWPGRLB5HPQQTPDICIOXRN WONQHEsDEhzXFM6VCZqTXoV LFhEgFKNQE1EUSzMZJ5DQYQ MDI33wDCOkfeUaQTDhJXIHO iQyRiPMTp3JBWKviAYtAJVi TALwIHIIRY1mPB6HOLAKTeL aRIvXN3HZHFMJT8CWDLeNRv USMHSMWS1eIHrPXu6WUjDJN HBWSJPJV3YCF8TqOq7UQMIO RD8FUOZpgnZcMOFxRMPPE15 JBQWEF9DKJRwMUrQNPDXFPS 3cK4tJOTPVSNIJJSLWEbONC kDUU0FQDNMPL3RVL29DSGlH LSnASTDecu84OQH9SqFgr3J 7YCO5DFSfONRbo4fhUKQntG FuZzEwMzNcZnRuYmpcdWMxX JKwZuQnv9jan254gVOpb4mk XPJnCvZ2tWEtNPRsxHHaW43 4LQRtYOrpa4mwo5VaMNVklU Bim3D4RAAGinxjzUb2oOnoU 24cl0R8UfxlF8xfQINuZPMh E0ZjCF4wNGQiKgs0MTQ5WXZ 8ZOKbMXJcQ1MfEN9bUBRaeF EwPAe2w2jqsGnlESWiLPE5b 1mfITgxjnFlUJ9iqu4oxYm0 g1ljqmKcSDGtZFItcEFAKCL iE4NewLroGe8qbJo0vYxfUy xuVLP0Hna5XJ0qdf96ney2g YbdOAJzonsiMfC7TAuuLQCe runhLKq5FMdfNOVdtGD7GTL wmJIyX6FyODFfGP8graw5KN O4UZcqJOPrMaS5JPDjxZCdZ KTjtLekENpsy168GLU9KkWs TB4mL2Wqe5Q1pW4xfTAfGXD maRYaEsZqQSDjet5efHRbUG ynu6GhKZT0amO7jZOpdWAkW ZInJdF1VUeiRR1gov56ZBJq OQQ8mf1yfGSxsOjncaXwkTL vFSvcQ1BqDWAvc711CHMjQ1 XxXUToh7N9vjAtYuLhXSYci LL0ymL5UXIpCX5zocouq8hn RVskMGxuUDEbcfM3ziN5OBR kiNFtZ1LazJ0wUOMgGD0ntf baa0guEWF3LUzmLDSxEZG1W fPrCIHur5Bitrn2VdEyo4Nl pDPaJTiiY97tq251KFPijrM kB9ewxDEzenurpPJfqovqLL wrdhY4BISeKUlwsbqyQLReT MtbT8joDwSoCBLufVmtOTsb u8VkYPZuRSRwUuGcaJJlZUQ bGia9TVBaxZEeZAReXcQhP7 vmkqczMqJASQFec0wgC3zfn SGXkOFfC4XxVHirjlJlSXzn SVmdGIJ1ZNL5Jf09ZuA2AEU hcn19 CPT Code(s) (test code i1defMOwLKPylFFyCeSsWJA = 4594) iQJUnv5juIVHlrACnIlPcVj NcZnRuYmpcdWMxXGRlZmYwe 2ovm026iPSpu5itQELnBjM7 rPOfMBGaiIShE615u8jvg0v mboIkyZO4VRGaGHR2SMazgn GsbbJ5VFozfNVfNqU7XMxfd qFvOTfawlPvobSqKpk8XLGh E239TVR3nWpxa9inOXB8ZHT tFNDvNdIsJe8zrMEjC970IZ BcAXDDQNRtjXv9EVWrhcQcz kIdlYBKg251N407w0ewXVLx tyLkcKePgbnuq0eqO914AQX hcGVydzEyMjQwXHBhcGVyaD I4DFEpUG8kyjqoClOcBT3vz lzkWnRqTE8zbok2AzQiDV3i cmdiNzIwXGhlYWRlcnkwXGZ mu1DolghyLG0wF0Mnl6V1sI 9maXRcZGVmdGFiNzIwXGZvc o6xaUYtVAomv5XhSLA8lyL6 tSPqyVMiDYGzQX76Oespt1O wYrunMMY2ADOwpdQgz1Akk1 rrGfOzgmVfG1poO1FlWTEeQ VWyUEJuNwEwwlLnw4Mjo0Au kRBhtNu4d0fnAXKnIKWeiZt tz8vqNOB9ZURwU6A0eNBvn4 wdINcnJPNdyOH5jzjfXIkjG KThdeC2pbyzEFpbYMTtlGG5 wlnhIPtuPEMoCcQ5gvpoXXf pPDTjRGC1ZKgdu443TDE4DW xzYmtwYWdlXHBnbmNvbnRcc GduZGVjXHBsYWluXHBsYWlu XGYwXGZzMjRccWxccGxhaW5 uTpPaXxIoXYedFX3zZSKkY0 ctfCSiOVLuJEGaZ5puOeChj N7lsMslCCietbVgQZp6DvV3 MYB1YXYbGZifEEQ9 CLINICAL HISTORY (test d5wdhWQmFCBrpUAaDuVwWHS code = 3354) xVCFsu2kzERSrxNXePcPhSb NcZnRuYmpcdWMxXGRlZmYwe 9ucf260tWUuu6yfCMVaUuH4 aOYyYWVowNSuG027JVWxHTn yd8qgh7ExFLSeuIAfv3H4VK KNfznjjMo4nWhxJ87vr0L1I pplU6kqHAWgFLLaP8QtHN0g KBCgMrg3GES0ANT6NBAqJEH eM4ZjHH2eHUNekYUiVXd1g2 xxdRniHAUeAUX0w5ysZGqsm vKbNE0udz2srCk7p5rulsMi VOAiAJVmuRESPKWfY1TdhUt xPz0zgMu8qMjaWowvBCB0Bq f6RY3jzz16mcw3fSerWXLlb vtsPxG5DNwwHZSluctjZPs6 MFxtYXJnbDcyMFxtYXJncjc yMFxtYXJndDcyMFxtYXJnYj xdDNrqXUUnPUD3NYhkr202S PI5XQyxd3rek4umfVXlHpj5 GVUzEbYlBgjyYDwdj7Ppc1l kLTEkln7hZRC6zUCnsQjwi7 L4nGPgMWYfkIMgmxWkGRLcO yA6PXprDK2syz03HRJhNTB0 jc7qwIAitJiuxoNggDNgLJl sE1MwSZKhl061TCRjJ4RmBI Qfx8Q9syKyBxXvOCUrjZD3v kM9ZEVwGHy2eBYytgT3dxMd rUVhT8bkeX29HgLwvAWrQ6S rkK23NsSrlZNjA1ShqD03Gq MbzAAcN5TgcV09BqQryQJaA NJjdMWuYr2dtAPunUKsa2Px rXDrGJyxX24hj494PQSpuwG lT1ycfNBnijmzoYHlivunJX wuvvT7JDx6tiMvnpliqQvxe GFpblxmMVxmczIwXGxhbmcx QXHoFLhfM8wfHsXrIARtaKe nNKyff6NgOUHnCSNcMrCcZi 8oEFzsMBgrvjstl3QpZ2sqL Qnrg440rqQiJAzonKCoPPgk FE9kr6IngXJqMZkPPFXuOTa WMP7jwLmwURSeLFulSBnhXL BoNFNtIPCaSROkFZE4KkP6Z 4rjCCT8 SPECIMEN SOURCE (test b7xqbWSqGMHfaZQkKnShPQA code = 3377) tBZFky0vgZQRcwDOkDfPsBm NcZnRuYmpcdWMxXGRlZmYwe 6ekf989nHHcx8onMMLzQmY3 pAIpCCBspREvY255a4chp4c ozsVjbWV9KVDuSHR3YHnhet MdwrE9RJcumJRkXzX1QLsqm kXmYGogwrIaegQoWcg3CUIk C988LGR6pKojw7opPSW4UDT fAXFrUtVuOh4raIXvK718AT PhGFWWWCDyhQr9DLKrscMob mWkpDCEi212F524i8lbJOXv trEmdNoObtccz8zmU057KIL hcGVydzEyMjQwXHBhcGVyaD J7VWIdIS7hoyhjLqZhRB8ay nxiQwMlYN8wxzp3XiFyXT5j cmdiNzIwXGhlYWRlcnkwXGZ rn5VtfhprEV0xG8Kuo7C7gE 9maXRcZGVmdGFiNzIwXGZvc f6qpSXtCBcpn7QfCQY9xsI3 iALrfSBsBVJuDP30Hnmgo7R qBvxwQDR6RHRzhhYja0Ejq7 fkTvCgkdZoK8iuY8GuPZWvD TJtTSEjZqFmepHmo5Mmn1El jCPpqKz7r5thRGBfSOUmjXz ee6xsPXI2KBGhY4M9pYAtq3 msFDocEKJjlLB6kiyrXMcpC LMrnoS2aelkGJqiTNNhkSY7 kkjlLGefILQiTwR6ppliREc rQTFcJIF9OCcih378MZB7DV xzYmtwYWdlXHBnbmNvbnRcc GduZGVjXHBsYWluXHBsYWlu XGYwXGZzMjRccWxccGxhaW5 wElWnVnHiUUglCV7kJRXeV3 pupHGlXGTdIZKrD5xhCfYre I2grMkeULxmhvPjVZXfz2Vd PLLmW5v7BQOtbp8= GROSS DESCRIPTION g4ygwZSlGBLebCCvRgPdKEP (test code = 3366) pXBAka7uaRGTnlQJpQbQfWl NcZnRuYmpcdWMxXGRlZmYwe 5art827qHVap5wsILRuLeH1 sKOiLNQrhCOmR794j5cor0l tdvZhcDN1QWJnSVO5YCpxlw GgqvP9RLdcfNZxJcR7XDmam vFtVUdmrjYobdYsXxr6KPIv I287ARN3iNdsz9qgMUZ0XWO pISCuMtUfUd1vnPZfN935KL NeRLJNWATusYg4SUKltnJku kUarDYJr263J129l7fpZXTx wlMrnOlMwhxjf9taU829AQY hcGVydzEyMjQwXHBhcGVyaD V2YSUnMJ6alybtRaJvWX9zo yklGjWwIP0asgm8MbEzAP2d cmdiNzIwXGhlYWRlcnkwXGZ oc3IeuoyyRN3vY3Iqs2D9vB 9maXRcZGVmdGFiNzIwXGZvc b8jwGCqAJthc0BhAUL5prO0 uPJscHJoZFZaAO46Homhf7X nZoqhNAX5DDSjvlTok7Nop3 hkMeMestDaY0tjS7EoQUNhL LNpPVSvUqJnvdQxe8Vci0Fe pWNitGx8g7vxKRAgHLRaqDs ln9twBHA8SPQnU8S9eLYod8 tiATytRGGzfWZ9ykudCJxtT MMimhG6lsvhKDrzWTIhxOX2 mjnfLQosEUPtUpT3aiqgLHd pSYQgRLH6ZJwpw819CUC3HK xzYmtwYWdlXHBnbmNvbnRcc GduZGVjXHBsYWluXHBsYWlu XGYwXGZzMjRccWxccGxhaW5 gUfSoEkCjJOytOJ4bAROwL0 ellQVaXTAmCKHdN7hmNoXlm E5yyPuhFCutifPwJVZlE3Ti ixSvIVfzYBOsmy9rgKboUSu kVqElWUTdh4t9bSJ9pKEhhI S6xJNcnHtiUJ6wcECaABVtP 5Atv8rtaqAbmJ1uPDCkUB9z GAYkcAhwiVSxr384EjBrxjD vJTUgNmTspIH6TxYnpSC8Um XkP98oxhwvsLVloKKtjqYlG SSvaDDpe3DuJEDdfTT6CIZi u22rHXttoJapzOcqTiUumOa siZQfVGbaFW32ZzZyCScjTD JsvH2qaYHusOVxDJTkvgemX I3qEXWwm3UwVWssDERzIH3o SAgbGm51VMIgXFQeprS3pBQ sffZ1HIRgsMWryV4uFIA5IY ToNLAozfY6iW36cbFxgDTfZ F7qJCBilYO1KATju99lzQlf dCBpcyBpbnZvbHZpbmcgdGh dFQhnwYIaFWmkCPBfISB1IR 9mIHRoZSBmaXJzdCBkaWdpd CBhbmQgbWVkaWFsIGFzcGVj rEVlMhG4jVDfVu72jeWjGEM hA9u9AJInkcKbdHZceVVhzv Z9xWMtXZDjANXlyIDpoc6qK IWnTWKqv3ivTNGuGBHja4W0 MPZxe9I1HUSlWQZjzJ3uCCx aj7FnXAGugDWoPpIwQRatCD NtAGTocRlyptukUYMkCIK4Q RXhVs1mSBFlarQ1XV9xiTDi zV17TQV4rfMiURB6zXM8EZN gHO3kPROaco9yHQHMNSSsRD LehwSvrDa2LBQhLPM2wE3tk sQpyaVrr6CesCb1rJBzNGFw LCQozIveo5T9HQJwcygxKRO vM8KsmYlkymOpv7ScUOBjvi TECD2aLZYez18hHW0gASWrm C0fNB1iTLWoBkZmrEtbx7Ke JM7ytwimisInvwWyTXZlJGT sojUGBz1ATb8in76iUI0jit xcinRlv9qlm5lfzfsxXNVtL ZhvmOIbA0M5nS9jTAHtysXF BQ3nk7coXHaio6mrjkpdJOP vFSHxh5jmhwXxBLYbp18jWP 5kIHVuZGVybHlpbmcgYWZmZ DF6TETeIf7yKVRvx1ljc3fa alwwFHBsUXktnGIcU8J6oP9 uXHBhclxwYXIgUGlsYXIgQX JndWVsbGVzLCBQQSAoQVNDU CljbVxwYXJccGFyXHBhcn0= MICROSCOPIC e4nqxAGtPAFhsQPhNuKjMGG DESCRIPTION (test code hKOPhd8foNKSpuVBxMbAmOc = 3371) NcZnRuYmpcdWMxXGRlZmYwe 6wxd677mKUnb5xnFYCtUxZ3 vWTcSDGfaNChN715c5ggm3n osiStpAY0JILrQFU3VKmeuc TdnxU3VRshkHTvLbB5CDaoo cVrWJxmhpRjtsJmAty2XVIw P616KUJ7bMidb4wiTLD7VJU tOZDfDaUeYw1vcJQsX874WV IsDPEWJDKkyHb0YRDcjfWfn dBuhLVVz806S333c5srBXQw hqLawJcQvlnjq3vhG650QFI hcGVydzEyMjQwXHBhcGVyaD T8RUMfJM9pporhRaTxQP0oq lszTzFoPT8bhfv9BxGeHR7r cmdiNzIwXGhlYWRlcnkwXGZ jt4XvdohhFI0mR0Rzr7B7lP 9maXRcZGVmdGFiNzIwXGZvc x0awTTzIMbxb0RaNJQ6rsI0 bVHnrMKvLHPdBP54Egfly5A nMfcsTRQ1FURzhxLgc2Xig4 umVpAlmzRdM6odG1OoJCZhG CKvVMQmXwUkuhAei0Bwt8Qe gYKmxVf9y8sjVFDkHRUogGx pd8suOUY6ABDkS8X7vVMub8 yzHEqsBWLonYQ0qufhAKbiG QBicuF9eusxMWliMRPzfGC1 jbwzFHotUQPlHpS1xvgdGWr mUILrBZV2JUese019FBO9WH xzYmtwYWdlXHBnbmNvbnRcc GduZGVjXHBsYWluXHBsYWlu XGYwXGZzMjRccWxccGxhaW5 dLaKfUpBsENyjPM1bQSQlL3 ktmTQlJLRbGPXiI2tpPxTgp V1abRqrLIidtsHrYYQbvlPu vh2zOQ3gbDMzcI== [facility] [id number] 18:37:00Surgical Pathology Report Case: [id number] Authorizing Provider: Gabriel Stovall DPM Collected: 12/05/2019 01:01 PM Ordering Location: [facility] Received: 12/05/2019 01:40 PM SERVICES Pathologist: Naresh Tillman MD Specimen: Foot, Right, right foot amputation RIGHT FOOT, TRANSMETATARSAL AMPUTATION: - SKIN AND SOFT TISSUE WITH ACUTE INFLAMMATION AND ABSCESS FORMATION, AND NECROSIS - SKIN AND SOFT TISSUE RESECTION MARGIN, INVOLVED BY ABSCESS FORMATION - BONE RESECTION MARGIN WITH FEATURES OF ACUTE OSTEOMYELITIS Signing Pathologist Direct Phone Line: [phone] signed by Naresh Tillman MD on 12/15/2019 at 6:37 [id number], [id number] surgical wound, initial encounter [[id number], 89875, 04503, 02979Qmoq, rightReceived in formalin labeled with the patient's [...] affected bone is shabazz-yellow, trabeculated and firm. Artisan Plasterer sections are submitted as follows:Section codeA1-lesion and skin and soft tissue margin en dmvoX0-I8-bycw margin following decalcificationA4-skin lesionA5-skin lesion and underlying affected bone following decalcificationSHARON Leon ([facility])cmPerformed.POCT-GLUCOSE [id number] 16:55:00 Test Item Value Reference Range Interpretation Comments POC-GLUCOSE METER 149 mg/dL 70-110 H : [facility] T [facility] ([employer]) (test code = [employer] [facility], 153) [id number]: Behavioral Health Worker/Techni herson ID = [id number] for PAVAN ZUÑIGA POCT-GLUCOSE [id number] 11:57:00 Test Item Value Reference Range Interpretation Comments POC-GLUCOSE METER 251 mg/dL 70-110 H : TESTED A T [facility] ([employer]) (test code = [employer] [facility], 153) 92439: Behavioral Health Worker/Techni herson ID = [id number] for YADI KU Surgically obtained culture + gram [id number] 10:43:00 Test Item Value Reference Range Interpretation Comments Result (test code = 6463-4) No growth Gram Stain Result (test No organisms seen code = 1123) [facility] GRAM [id number] 10:43:00 Test Item Value Reference Range Interpretation Comments CULTURE (BEAKER) (test No growth code = 1095) GRAM STAIN RESULT <1+ White blood cells (BEAKER) (test code = seen 1123) GRAM STAIN RESULT No organisms seen (BEAKER) (test code = 73060) POCT-GLUCOSE [id number] 07:10:00 Test Item Value Reference Range Interpretation Comments POC-GLUCOSE METER 130 mg/dL 70-110 H : TESTED A T [facility] (BEAKER) (test code = LOREE Ramsey [facility], 1538) 71307: Behavioral Health Worker/Techni herson ID = [id number] for MARCOS KUWITHBo [id number] 06:12:00 Test Item Value Reference Range Interpretation Comments MAGNESIUM (BEAKER) (test code = 2.3 mg/dL 1.6-2.6 627) Behavioral Health Worker ID - FARHAT LBASIC METABOLIC [id number] 06:12:00 Test Item Value Reference Range Interpretation [...] S NOT APPLICABLE FOR DIALYSIS PATIEN TS. Behavioral Health Worker ID - FARHAT LCBC (HEMOGRAM ONLY)2019-12-15 05:22:00 Test Item Value [...] 0-0 (BEAKER) (test code = 413) POCT-GLUCOSE [id number] 21:27:00 Test Item Value Reference Range Interpretation Comments POC-GLUCOSE METER 225 mg/dL 70-110 H : TESTED A T [facility] 67[facility] (BEAKER) (test code = [facility], 153) 23951: Behavioral Health Worker/Techni herson ID = [id number] for DA VIS, ZOILA POCT-GLUCOSE [id number] 17:30:00 Test Item Value Reference Range Interpretation Comments POC-GLUCOSE METER 219 mg/dL 70-110 H : TESTED A T [facility] 6720 (BEAKER) (test code = [facility], 153) 63998: Behavioral Health Worker/Techni herson ID = [id number] for SA NCHEZ, KARY POCT-GLUCOSE [id number] 12:19:00 Test Item Value Reference Range Interpretation Comments POC-GLUCOSE METER 184 mg/dL 70-110 H : TESTED A T [facility] 67[facility] (BEAKER) (test code = [facility], 1538) 59076: Behavioral Health Worker/Techni herson ID = [id number] for KARY MAC POCT-GLUCOSE [id number] 08:06:00 Test Item Value Reference Range Interpretation Comments POC-GLUCOSE METER 126 mg/dL 70-110 H : TESTED A T [facility] 6720 (BEAKER) (test code = [facility] [employer] [facility], 1538) 61494: Behavioral Health Worker/Techni herson ID = [id number] for SA MARCELO, KARY [id number] 06:11:00 Test Item Value Reference Range Interpretation Comments MAGNESIUM (BEAKER) (test code = 2.3 mg/dL 1.6-2.6 627) Behavioral Health Worker ID - FARHAT LBASIC METABOLIC [id number] 06:11:00 Test Item Value Reference Range Interpretation [...] S NOT APPLICABLE FOR DIALYSIS PATIEN TS. Behavioral Health Worker ID - FARHAT LCBC (HEMOGRAM ONLY)2019-12-14 05:21:00 [...] 0-0 (BEAKER) (test code = 413) POCT-GLUCOSE [id number] 21:54:00 Test Item Value Reference Range Interpretation Comments POC-GLUCOSE METER 240 mg/dL 70-110 H : TESTED A T [facility] 6720 (BEAKER) (test code = [facility], 153) 50982: Behavioral Health Worker/Techni herson ID = [id number] for GREG BARBOSA POCT-GLUCOSE [id number] 17:05:00 Test Item Value Reference Range Interpretation Comments POC-GLUCOSE METER 145 mg/dL 70-110 H : TESTED A T [facility] 6720 (BEAKER) (test code = [facility], 1538) 26809: Behavioral Health Worker/Techni herson ID = [id number] for Abner Rowan SPIN/CONCENTRATION [id number] 12:25:00 Test Item Value Reference Range Interpretation Comments Concentration charged (test code = Done 8387) [facility] [id number] 12:25:00 Test Item Value Reference Range Interpretation Comments CONCENTRATION CHARGED (BEAKER) (test Done code = 2657) POCT-GLUCOSE [id number] 11:27:00 Test Item Value Reference Range Interpretation Comments POC-GLUCOSE METER 294 mg/dL 70-110 H : TESTED A T [facility] 6720 (BEAKER) (test code = [place], 1538) 75131: Behavioral Health Worker/Techni herson ID = [id number] for Abner Rowan POCT-GLUCOSE [id number] 07:32:00 Test Item Value Reference Range Interpretation Comments POC-GLUCOSE METER 109 mg/dL 70-110 : TESTED A T [facility] 6720 (BEAKER) (test code = [facility] [place], 1538) 46547: Behavioral Health Worker/Techni herson ID = [id number] for Abner Rowan CBC (HEMOGRAM ONLY)2019-12-13 06:36:00 Test Item Value [...] WBC 0-0 (BEAKER) (test code = 413) [id number] 05:43:00 Test Item Value Reference Range Interpretation Comments MAGNESIUM (BEAKER) (test code = 2.3 mg/dL 1.6-2.6 627) Behavioral Health Worker ID - LINDSAY WBASIC METABOLIC [id number] 05:43:00 Test Item Value Reference Range Interpretation [...] S NOT APPLICABLE FOR DIALYSIS PATIEN TS. Behavioral Health Worker ID - LINDSAY WPOCT-GLUCOSE [id number] 21:23:00 Test Item Value Reference Range Interpretation Comments POC-GLUCOSE METER 225 mg/dL 70-110 H : TESTED A T [facility] 6720 (BEAKER) (test code = [facility], 153) 47433: Behavioral Health Worker/Techni herson ID = [id number] for CRESENCIO BAH POCT-GLUCOSE [id number] 17:01:00 Test Item Value Reference Range Interpretation Comments POC-GLUCOSE METER 199 mg/dL 70-110 H : TESTED A T [facility] 6720 (BEAKER) (test code = [facility], 1538) 21144: Behavioral Health Worker/Techni herson ID = [id number] for MA ERICKPAVAN POCT-GLUCOSE [id number] 12:55:00 Test Item Value Reference Range Interpretation Comments POC-GLUCOSE METER 148 mg/dL 70-110 H : TESTED A T [facility] 6720 (BEAKER) (test code = [facility], 1538) 98492: Behavioral Health Worker/Techni herson ID = [id number] for TA KYLER LESTER POCT-GLUCOSE [id number] 08:06:00 Test Item Value Reference Range Interpretation Comments POC-GLUCOSE METER 179 mg/dL 70-110 H : TESTED A T [facility] 6720 (BEAKER) (test code = [place], 1538) 40673: Behavioral Health Worker/Techni herson ID = [id number] for PAVAN ZUÑIGA CBC (HEMOGRAM ONLY)2019-12-12 06:52:00 [...] WBC 0-0 (BEAKER) (test code = 413) [id number] 06:47:00 Test Item Value Reference Range Interpretation Comments MAGNESIUM (BEAKER) (test code = 2.3 mg/dL 1.6-2.6 627) Behavioral Health Worker ID - LABASIC METABOLIC [id number] 06:47:00 Test Item Value Reference Range Interpretation [...] S NOT APPLICABLE FOR DIALYSIS PATIEN TS. Behavioral Health Worker ID - LAPOCT-GLUCOSE [id number] 21:12:00 Test Item Value Reference Range Interpretation Comments POC-GLUCOSE METER 285 mg/dL 70-110 H : TESTED A T [facility] 6720 (BEAKER) (test code = [facility], 153) 57596: Behavioral Health Worker/Techni herson ID = [id number] for PE LINDA TRINIDADLO POCT-GLUCOSE [id number] 16:56:00 Test Item Value Reference Range Interpretation Comments POC-GLUCOSE METER 226 mg/dL 70-110 H : TESTED A T [facility] 6720 (BEAKER) (test code = [facility], 153) 12548: Behavioral Health Worker/Techni herson ID = [id number] for [place] LLIAMS, TYNEKA POCT-GLUCOSE [id number] 11:57:00 Test Item Value Reference Range Interpretation Comments POC-GLUCOSE METER 293 mg/dL 70-110 H : TESTED A T [facility] 6720 (BEAKER) (test code = [facility], 1538) 70259: Behavioral Health Worker/Techni herson ID = [id number] for [place] LLIAMS, TYNEKA POCT-GLUCOSE [id number] 07:36:00 Test Item Value Reference Range Interpretation Comments POC-GLUCOSE METER 152 mg/dL 70-110 H : TESTED A T [facility] 6720 (BEAKER) (test code = [facility], 1538) 69489: Behavioral Health Worker/Techni herson ID = [id number] for [place] LLIAMS, TYNEKA [id number] 06:31:00 Test Item Value Reference Range Interpretation Comments MAGNESIUM (BEAKER) 2.4 mg/dL 1.6-2.6 Specimen slightly (test code = 627) hemolyzed Behavioral Health Worker ID - FARHAT LBASIC METABOLIC [id number] 06:31:00 Test Item Value Reference Range Interpretation [...] S NOT APPLICABLE FOR DIALYSIS PATIEN TS. Behavioral Health Worker ID - PIMICHI LCBC (HEMOGRAM ONLY)2019-12-11 05:58:00 Test Item Value [...] 0-0 (BEAKER) (test code = 413) POCT-GLUCOSE [id number] 21:34:00 Test Item Value Reference Range Interpretation Comments POC-GLUCOSE METER 290 mg/dL 70-110 H : TESTED A T [facility] 6720 (BEAKER) (test code = [facility], 153) 01872: Behavioral Health Worker/Techni herson ID = [id number] for ZOILA GAMEZ POCT-GLUCOSE [id number] 16:49:00 Test Item Value Reference Range Interpretation Comments POC-GLUCOSE METER 247 mg/dL 70-110 H : TESTED A T [facility] 6720 (BEAKER) (test code = [facility], 153) 19769: Behavioral Health Worker/Techni herson ID = [id number] for CHANDAN PADRON POCT-GLUCOSE [id number] 11:15:00 Test Item Value Reference Range Interpretation Comments POC-GLUCOSE METER 244 mg/dL 70-110 H : TESTED A T [facility] 6720 (BEAKER) (test code = [facility], 153) 36174: Behavioral Health Worker/Techni herson ID = [id number] for CHANDAN PADRON [id number] 08:20:00 Test Item Value Reference Range Interpretation Comments MAGNESIUM (BEAKER) (test code = 2.4 mg/dL 1.6-2.6 627) Behavioral Health Worker ID - MINERVA BBASIC METABOLIC [id number] 08:20:00 Test Item Value Reference Range Interpretation [...] S NOT APPLICABLE FOR DIALYSIS PATIEN TS. Behavioral Health Worker ID - MINERVA BPOCT-GLUCOSE [id number] 07:50:00 Test Item Value Reference Range Interpretation Comments POC-GLUCOSE METER 239 mg/dL 70-110 H : [facility] (test code = [place], 1538) 56979: Behavioral Health Worker/Techni herson ID = [id number] for CHANDAN PADRON CBC (HEMOGRAM ONLY)2019-12-10 07:07:00 Test Item Value [...] 0-0 (BEAKER) (test code = 413) POCT-GLUCOSE [id number] 21:25:00 Test Item Value Reference Range Interpretation Comments POC-GLUCOSE METER 248 mg/dL 70-110 H : TESTED A T [facility] 6720 (BEAKER) (test code = [facility], 1538) 24089: Behavioral Health Worker/Techni herson ID = [id number] for Barb Martins POCT-GLUCOSE [id number] 17:15:00 Test Item Value Reference Range Interpretation Comments POC-GLUCOSE METER 221 mg/dL 70-110 H : TESTED A T [facility] 6720 (BEAKER) (test code = [facility], 1538) 22423: Behavioral Health Worker/Techni herson ID = [id number] for BERRY NTER, HIWITHA POCT-GLUCOSE [id number] 12:00:00 Test Item Value Reference Range Interpretation Comments POC-GLUCOSE METER 220 mg/dL 70-110 H : TESTED A T [facility] 6720 (BEAKER) (test code = [facility], 1538) 50240: Behavioral Health Worker/Techni herson ID = [id number] for HU NTER, HIWITHA [id number] 07:12:00 Test Item Value Reference Range Interpretation Comments MAGNESIUM (BEAKER) (test code = 2.4 mg/dL 1.6-2.6 627) Behavioral Health Worker ID - ANGELINA FBASIC METABOLIC [id number] 07:12:00 Test Item Value Reference Range Interpretation [...] S NOT APPLICABLE FOR DIALYSIS PATIEN TS. Behavioral Health Worker ID - ANGELINA FPOCT-GLUCOSE [id number] 07:04:00 Test Item Value Reference Range Interpretation Comments POC-GLUCOSE METER 176 mg/dL 70-110 H : TESTED A T [facility] 6720 (BEAKER) (test code = [place], 1538) 92874: Behavioral Health Worker/Techni herson ID = [id number] for YADI KU CBC (HEMOGRAM ONLY)2019-12-09 06:51:00 [...] 0-0 (BEAKER) (test code = 413) POCT-GLUCOSE [id number] 22:22:00 Test Item Value Reference Range Interpretation Comments POC-GLUCOSE METER 248 mg/dL 70-110 H : TESTED A T [facility] 6720 (BEAKER) (test code = [facility], 1538) 11515: Behavioral Health Worker/Techni herson ID = [id number] for ZOILA GAMEZ Blood Culture - Routine (Left Venipuncture)2019-12-08 21:00:00 Test Item Value Reference Range Interpretation Comments Result (test code = No growth in 5 days 6463-4) [id number] 21:00:00 Test Item Value Reference Range Interpretation Comments CULTURE (BEAKER) (test No growth in 5 days code = 1095) BLOOD [id number] 21:00:00 Test Item Value Reference Range Interpretation Comments CULTURE (BEAKER) (test No growth in 5 days code = 1095) ANAEROBIC [id number] 17:38:00 Test Item Value Reference Range Interpretation Comments CULTURE (BEAKER) (test No anaerobes isolated code = 1095) POCT-GLUCOSE [id number] 16:42:00 Test Item Value Reference Range Interpretation Comments POC-GLUCOSE METER 193 mg/dL 70-110 H : TESTED A T [facility] 6720 (BEAKER) (test code = [facility], 1538) 13767: Behavioral Health Worker/Techni herson ID = [id number] for ZA VALA, ERANDY POCT-GLUCOSE [id number] 12:04:00 Test Item Value Reference Range Interpretation Comments POC-GLUCOSE METER 199 mg/dL 70-110 H : TESTED A T [facility] 6720 (BEAKER) (test code = [facility], 1538) 05310: Behavioral Health Worker/Techni herson ID = [id number] for ZA VALA, ERANDY POCT-GLUCOSE [id number] 08:08:00 Test Item Value Reference Range Interpretation Comments POC-GLUCOSE METER 168 mg/dL 70-110 H : TESTED A T [facility] 6720 (BEAKER) (test code = [facility], 1538) 51811: Behavioral Health Worker/Techni herson ID = [id number] for ZA VALA, ERANDY [id number] 07:27:00 Test Item Value Reference Range Interpretation Comments MAGNESIUM (BEAKER) (test code = 2.1 mg/dL 1.6-2.6 627) Behavioral Health Worker ID - JORGE ALBERTO CBASIC METABOLIC [id number] 07:27:00 Test Item Value Reference Range Interpretation [...] S NOT APPLICABLE FOR DIALYSIS PATIEN TS. Behavioral Health Worker ID - JORGE ALBERTO CCBC (HEMOGRAM ONLY)2019-12-08 06:30:00 Test Item Value [...] 0-0 (BEAKER) (test code = 413) POCT-GLUCOSE [id number] 21:57:00 Test Item Value Reference Range Interpretation Comments POC-GLUCOSE METER 215 mg/dL 70-110 H : TESTED A T [facility] 6720 (BEAKER) (test code = RAKELMA Braulio [facility], 1538) 97428: Behavioral Health Worker/Techni herson ID = [id number] for BART LESLIE POCT-GLUCOSE [id number] 17:22:00 Test Item Value Reference Range Interpretation Comments POC-GLUCOSE METER 151 mg/dL 70-110 H : TESTED A T [facility] 6720 (BEAKER) (test code = [facility], 1538) 29706: Behavioral Health Worker/Techni herson ID = [id number] for PAVAN ZUÑIGA LANEY OBTAINED CULTURE + GRAM [id number] 13:45:00 Test Item Value Reference Range Interpretation Comments CULTURE (BEAKER) (test PROVIDENCIA A <1+ P rovidencia code [...] No organisms seen (BEAKER) (test code = 060094) [id number] 06:32:00 Test Item Value Reference Range Interpretation Comments MAGNESIUM (BEAKER) 2.2 mg/dL 1.6-2.6 Specimen slightly (test code = 627) hemolyzed Behavioral Health Worker ID - FARHAT LBASIC METABOLIC [id number] 06:32:00 Test Item Value Reference Range Interpretation [...] S NOT APPLICABLE FOR DIALYSIS PATIEN TS. Behavioral Health Worker ID - PIAYA LCBC (HEMOGRAM ONLY)2019-12-07 05:39:00 [...] CORPUSCULAR HEMOGLOBIN CONC 31.1 GM/DL 32.2-35.5 L (AKER) (test code = 752) RED CELL DISTRIBUTION WIDTH 12.6 % 11.7-14.4 (BEAKER) (test code = 412) PLATELET COUNT (AKER) (test 381 K/CU MM 150-450 code = 756) MEAN PLATELET VOLUME (BEAKER) 9.6 fL 9.4-12.3 (test code = 754) NUCLEATED RED BLOOD CELLS 0 /100 WBC 0-0 (AKER) (test code = 413) POCT-GLUCOSE [id number] 21:14:00 Test Item Value Reference Range Interpretation Comments POC-GLUCOSE METER 165 mg/dL 70-110 H : TESTED A T [facility] 6720 ([facility]) (test code = [facility], 1538) 67213: Behavioral Health Worker/Techni herson ID = [id number] for GO NZALES III, LEILANI SPIN/CONCENTRATION [id number] 18:12:00 Test Item Value Reference Range Interpretation Comments CONCENTRATION CHARGED ([facility]) (test Done code = 2657) POCT-GLUCOSE [id number] 16:48:00 Test Item Value Reference Range Interpretation Comments POC-GLUCOSE METER 155 mg/dL 70-110 H : TESTED A T [facility] 6720 ([facility]) (test code = [facility], 1538) 16922: Behavioral Health Worker/Techni herson ID = [id number] for HU NTER, HIWITHA POCT-GLUCOSE [id number] 12:18:00 Test Item Value Reference Range Interpretation Comments POC-GLUCOSE METER 163 mg/dL 70-110 H : TESTED A T [facility] 6720 ([facility]) (test code = [facility], 1538) 76611: Behavioral Health Worker/Techni herson ID = [id number] for MAXWELL RRIS, FINESSE ECG 12 [id number] 08:45:24Interface, External Ris In 12/06/2019 8:45 AM CDTVentricular Rate 80 BPMAtrial Rate 80 BPMP-R Interval 160 msQRS Duration 86 msQ-T Interval 418 msQTC Calculation(Bazett) 482 msP Leverett 0 degreesR Axis14 degreesT [place] 36 degreesSinus rhythm with occasional Premature ventricular complexes and Premature atrial complexesOtherwise normal ECGNo previous ECGs availableConfirmed by MD Bebe, Cristhian ([id number])on 12/06/2019 8:45:22 [facility] [id number] 07:11:00 Test Item Value Reference Range Interpretation Comments POC-GLUCOSE METER 106 mg/dL 70-110 : TESTED A T [facility] 6720 (BEAKER) (test code = [place], 1538) 65497: Behavioral Health Worker/Techni herson ID = [id number] for YADI KU BLOOD [id number] 06:00:00 Test Item Value Reference Range Interpretation Comments CULTURE (BEAKER) (test No growth in 5 days code = 1095) BLOOD [id number] 06:00:00 Test Item Value Reference Range Interpretation Comments CULTURE (BEAKER) (test No growth in 5 days code = 1095) [id number] 05:55:00 Test Item Value Reference Range Interpretation Comments MAGNESIUM (BEAKER) (test code = 1.8 mg/dL 1.6-2.6 627) Behavioral Health Worker ID - PALOMA MBASIC METABOLIC [id number] 05:55:00 Test Item Value Reference Range Interpretation [...] S NOT APPLICABLE FOR DIALYSIS PATIEN TS. Behavioral Health Worker ID - PALOMA MCBC (HEMOGRAM ONLY)2019-12-06 05:21:00 Test Item Value Reference [...] 0-0 (BEAKER) (test code = 413) POCT-GLUCOSE [id number] 21:16:00 Test Item Value Reference Range Interpretation Comments POC-GLUCOSE METER 158 mg/dL 70-110 H : TESTED A T [facility] 6720 (BEAKER) (test code = [facility] [employer] [facility], 1538) 10871: Behavioral Health Worker/Techni herson ID = [id number] for NIC ANTOINE III, LEILANI ANAEROBIC [id number] 17:15:00 Test Item Value Reference Range Interpretation Comments CULTURE (BEAKER) (test No anaerobes isolated code = 1095) POCT-GLUCOSE [id number] 16:48:00 Test Item Value Reference Range Interpretation Comments POC-GLUCOSE METER 127 mg/dL 70-110 H : TESTED A T [facility] 6720 (BEAKER) (test code = [facility] [employer] [facility], 1538) 93424: Behavioral Health Worker/Techni herson ID = [id number] for TERELL GREENWOOD RAD, FOOT, MIN 3 VIEWS, [id number] 16:43:00Reason for exam:->s/p debridementFINAL REPORT TECHNIQUE: Frontal, [...] MDReport Verified Date/Time: 12/05/2019 16:43:31 Reading Location: [address] Radiology Reading Room XR foot 3 [...] MDReport Verified Date/Time: 12/05/2019 16:43:31 Reading Location: [address] Radiology Reading [facility] GRAM [id number] 13:21:00 Test Item Value Reference Interpretation Comments [...] R Sulfamethoxazole (test code = 47) CULTURE (AKER) (test MORGANELLA A 2+ Mo rganella code [...] No organisms seen (BEAKER) (test code = 256598) POCT-GLUCOSE [id number] 13:08:00 Test Item Value Reference Range Interpretation Comments POC-GLUCOSE METER 127 mg/dL 70-110 H : TESTED A T [facility] 6720 ([employer]) (test code = [place], 1538) 19720: Behavioral Health Worker/Techni herson ID = [id number] for RENEE ROGEL POCT-GLUCOSE [id number] 08:14:00 Test Item Value Reference Range Interpretation Comments POC-GLUCOSE METER 163 mg/dL 70-110 H : TESTED A T [facility] 6720 ([employer]) (test code = [place], 1538) 17600: Behavioral Health Worker/Techni herson ID = [id number] for TERELL GREENWOOD [id number] 07:20:00 Test Item Value Reference Range Interpretation Comments MAGNESIUM (BEAKER) (test code = 1.8 mg/dL 1.6-2.6 627) Behavioral Health Worker ID - PALOMA MBASIC METABOLIC [id number] 07:20:00 Test Item Value Reference Range Interpretation [...] S NOT APPLICABLE FOR DIALYSIS PATIEN TS. Behavioral Health Worker ID - PALOMA MCBC (HEMOGRAM ONLY)2019-12-05 06:44:00 [...] 0-0 (BEAKER) (test code = 413) POCT-GLUCOSE [id number] 21:18:00 Test Item Value Reference Range Interpretation Comments POC-GLUCOSE METER 146 mg/dL 70-110 H : TESTED A T [facility] 6720 (BEAKER) (test code = [place], 1538) 43729: Behavioral Health Worker/Techni herson ID = [id number] for Barb Martins Platelet Aggregation: Drug [id number] 17:58:00 Test Item Value Reference Range Interpretation Comments Arachadonic Acid (test 75 % 63-89 code = 5993-1) Interpretation (test Normal arachidonic code = 79000-6) acid and ADP results. No O0U73-hrnrb or aspirin-like drug effect. Pathologist: (test code Arnav Rouse M.D. = 2621) (electonic signature) Platelets (test code = 349 150- 450 K/CU MM 2656) ADP (test code = 74 % 62-100 16523-3) Platelet Rich Plasma 290 200- 300 k/cu mm (test code = 2134) BASIA (test code = BASIA) Platelet function studies by aggregation methodology on samples with platelet count <75,000/CU MM are unreliable; platelet function assessment should not be based on a single test.Behavioral Health Worker ID - [id number] [facility] District[facility] AGGREGATION: DRUG [id number] 17:58:00 Test Item Value Reference Range Interpretation Comments ARACHADONIC ACID 75 % 63-89 RESULT(BEAKER) (test code = 2138) PLATELET AGG DRUG Normal arachidonic INTERPRETATION (BEAKER) acid and ADP results. (test code = 2408) No X0J96-pykzt or aspirin-like drug effect. [id number]-CVXZEFWUMNN-[id number] Arnav Rouse M.D. (BEAKER) (test code = (electonic signature) 5538) PLATELET COUNT AGG 349 K/CU MM 150-450 (BEAKER) (test code = 2656) ADP (BEAKER) (test code 74 % 62-100 = 4654) PLATELET RICH 290 k/cu mm 200-300 PLASMA(BEAKER) (test code = 2134) Platelet function studies by aggregation methodology on samples with platelet count <75,000/CU MMare unreliable; platelet function assessment should not be based on a single test.Behavioral Health Worker ID - [id number]-GLUCOSE [id number] 16:20:00 Test Item Value Reference Range Interpretation Comments POC-GLUCOSE METER 141 mg/dL 70-110 H : TESTED A T [facility] 6720 (BEAKER) (test code = [facility], 153) 09730: Behavioral Health Worker/Techni herson ID = [id number] for CHANDAN PADRON POCT-GLUCOSE [id number] 11:53:00 Test Item Value Reference Range Interpretation Comments POC-GLUCOSE METER 138 mg/dL 70-110 H : TESTED A T [facility] 6720 (BEAKER) (test code = [facility], 1538) 04810: Behavioral Health Worker/Techni herson ID = [id number] for CHANDAN PADRON POCT-GLUCOSE [id number] 08:18:00 Test Item Value Reference Range Interpretation Comments POC-GLUCOSE METER 93 mg/dL 70-110 : TESTED A T [facility] 6720 (BEAKER) (test code = [facility], 1538) 51011: Behavioral Health Worker/Techni herson ID = [id number] for BARB QUEZADA [id number] 07:55:00 Test Item Value Reference Range Interpretation Comments MAGNESIUM (BEAKER) (test code = 1.8 mg/dL 1.6-2.6 627) Behavioral Health Worker ID - JORGE ALBERTO CBASIC METABOLIC [id number] 07:55:00 Test Item Value Reference Range Interpretation [...] I S NOT APPLICABLE FOR DIALYSIS PATIEN KRISTAL. Behavioral Health Worker ID - JUN [id number] 07:33:00 Test Item Value Reference Range Interpretation Comments PTT (test code = 04553-3) 37.4 22.5- 36.0 seconds H Lab Interpretation (test code = Abnormal 84349-4) [id number] 07:33[facility]00 Test Item Value Reference Range Interpretation [...] 0-0 (BEAKER) (test code = 413) POCT-GLUCOSE [id number] 21:23:00 Test Item Value Reference Range Interpretation Comments POC-GLUCOSE METER 143 mg/dL 70-110 H : TESTED A T [facility] 6720 (BEAKER) (test code = [facility], 1538) 72694: Behavioral Health Worker/Techni herson ID = [id number] for ZOILA GAMEZ POCT-GLUCOSE [id number] 17:01:00 Test Item Value Reference Range Interpretation Comments POC-GLUCOSE METER 143 mg/dL 70-110 H : TESTED A T [facility] 6720 (BEAKER) (test code = [facility], 1538) 78777: Behavioral Health Worker/Techni herson ID = [id number] for DANA GREENOWODY POC ACTIVATED CLOTTING [id number] 14:53:00 Test Item Value Reference Range Interpretation Comments Activated Clotting Time 257 sec : 74 -137 seconds, (test code = 441) Baseline: TESTED AT [address], [facility] 30: Behavioral Health Worker/Techni herson ID = [id number] for HI JORGE, CHONG [id number] 14:53:00 Test Item Value Reference Range Interpretation Comments ACTIVATED CLOTTING TIME 257 sec : 74 -137 seconds, (BEAKER) (test code = Baseli ne: TESTED AT 441) [address], 770 30: Behavioral Health Worker/Techni herson ID = [id number] for HI JORGE, CHONG [id number] 14:12:00 Test Item Value Reference Range Interpretation Comments ACTIVATED CLOTTING TIME 235 sec : 74 -137 seconds, (BEAKER) (test code = Baseli ne: TESTED AT 441) [address], 770 30: Behavioral Health Worker/Techni herson ID = [id number] for HI JORGE, CHONG POCT-GLUCOSE [id number] 11:20:00 Test Item Value Reference Range Interpretation Comments POC-GLUCOSE METER 170 mg/dL 70-110 H : TESTED A T [facility] 6720 (BEAKER) (test code = [facility], 1538) 78012: Behavioral Health Worker/Techni herson ID = [id number] for TERELL GREENWOOD POCT-GLUCOSE [id number] 08:25:00 Test Item Value Reference Range Interpretation Comments POC-GLUCOSE METER 161 mg/dL 70-110 H : TESTED A T [facility] 6720 (BEAKER) (test code = [facility], 1538) 65716: Behavioral Health Worker/Techni herson ID = [id number] for TERELL GREENWOOD [id number] 07:44:00 Test Item Value Reference Range Interpretation Comments MAGNESIUM (BEAKER) (test code = 1.8 mg/dL 1.6-2.6 627) Behavioral Health Worker ID - JUN CBASIC METABOLIC [id number] 07:44:00 Test Item Value Reference Range Interpretation [...] S NOT APPLICABLE FOR DIALYSIS PATIEN TS. Behavioral Health Worker ID - JUN [id number] 06:52:00 Test Item Value Reference Range Interpretation [...] WBC 0-0 (BEAKER) (test code = 413) [id number] 00:10:00 Test Item Value Reference Range Interpretation Comments PARTIAL THROMBOPLASTIN TIME 95.1 seconds 22.5-36.0 H (BEAKER) (test code = 760) POCT-GLUCOSE [id number] 21:24:00 Test Item Value Reference Range Interpretation Comments POC-GLUCOSE METER 223 mg/dL 70-110 H : TESTED A T [facility] 6720 (BEAKER) (test code = [place] [facility] [place], 1538) [id number]: Behavioral Health Worker/Techni herson ID = [id number] for PE RALES, CRESENCIO Vancomycin level, [id number] 19:47:00 Test Item Value Reference Range Interpretation Comments Vancomycin Tr (test code = 13.8 ug/mL 04-06 4092-3) BASIA (test code = BASIA) Behavioral Health Worker ID - BS Lab Interpretation (test Normal code = 43681-1) [facility] DistrictVANCOMYCIN LEVEL, [id number] 19:47:00 Test Item Value Reference Range Interpretation Comments VANCOMYCIN TROUGH (BEAKER) (test 13.8 ug/mL 10.0-20.0 code = 522) Behavioral Health Worker ID - [id number] 17:17:00 Test Item Value Reference Range Interpretation Comments PARTIAL THROMBOPLASTIN TIME 37.4 seconds 22.5-36.0 H (BEAKER) (test code = 760) POCT-GLUCOSE [id number] 16:57:00 Test Item Value Reference Range Interpretation Comments POC-GLUCOSE METER 193 mg/dL 70-110 H : TESTED A T [facility] 6720 (BEAKER) (test code = LOREE Ramsey [facility], 1538) [address]: Behavioral Health Worker/Techni herson ID = [id number] for CHANDAN PADRON RAD, FOOT, MIN 3 VIEWS, [id number] 13:05:00Reason for exam:->s/p debridementFINAL REPORT CLINICAL HISTORY: s/p debridement TECHNIQUE: 3 views of the right foot COMPARISON: 12/01/2019 IMPRESSION: 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 There is gauze packing the soft tissue defect. The remaining bones appear intac t. Signed: Pollo Cortez Verified Date/Time: 12/02/2019 13:05:47 Reading Location: [facility] Radiology Reading Room POCT-GLUCOSE METER 2019-12-02 12:35:00 Test Item Value Reference Range Interpretation Comments POC-GLUCOSE METER 216 mg/dL 70-110 H : TESTED A T [facility] 6720 (BEAKER) (test code = LOREE Rasmey [facility], 1538) [address]407: Behavioral Health Worker/Techni herson ID = [id number] for FINESSE MERCEDES Arterial doppler leg, [id number] 11:50:13Ejection FractionSLE ECHO HEARTLAB MKCKESSON CPACSRight Impression1. The common [...] + + + + + + !Prox CENTER HUMAN RESOURCES MANAGER ! !0 ! !Absent ! + + + + + + !Mid CENTER HUMAN RESOURCES MANAGER ! !0 ! !Absent ! + + +-- + + + !Dist CENTER HUMAN RESOURCES MANAGER ! !0 ! !Absent ! + + [...] Study 12/01/2019 LITA Age 74 Visit Number [id number] Gender Female Accession Number [id number] Date of 1945 Referring Suzanne Jenkins, Room Number 1019 Physician Tank Builder Chandler Alanis Interpreting Tarah Balderas S Physician [...] + + + + + + !Prox CENTER HUMAN RESOURCES MANAGER ! !0 ! !Absent ! + + +---- + + + !Mid CENTER HUMAN RESOURCES MANAGER ! !0 ! !Absent ! + + + + + + !Dist CENTER HUMAN RESOURCES MANAGER ! !0! !Absent ! + --------+ + [...] ! + + + + + +[facility](Ankle/Brachial Index)2019-12-02 11:49:57Ejection FractionSLEH ECHO HEARTLAB MKCKESSON CPACSRight Impression1. The posterior [...] Study 12/01/2019 LITA Age 74 Visit Number [id number] Gender Female Accession Number [id number] Date of 1945 Referring Suzanne Jenkins, Room Number 1019 Physician DO Tank Builder Chandler Alanis Interpreting Tarah Balderas S Physician [...] in cm/s ; Diameters are measured in [facility] POCT-GLUCOSE [id number] 09:24:00 Test Item Value Reference Range Interpretation Comments POC-GLUCOSE METER 232 mg/dL 70-110 H : TESTED A T [facility] 6720 (BEAKER) (test code = [facility], 1538) 10192: Behavioral Health Worker/Techni herson ID = [id number] for VASHTI LINK Hemoglobin [id number] 08:08:00 Test Item Value Reference Range Interpretation Comments Hemoglobin A1C (test code = 4548-4) 10.0 % 4.3-6.1 H Lab Interpretation (test code = Abnormal 07010-7) [facility]MO[facility]IN [id number] 08:08:00 Test Item Value Reference Range Interpretation Comments HEMOGLOBIN A1C (BEAKER) (test code = 10.0 % 4.3-6.1 H 368) POCT-GLUCOSE [id number] 05:46:00 Test Item Value Reference Range Interpretation Comments POC-GLUCOSE METER 239 mg/dL 70-110 H : TESTED A T [facility] 6720 (BEAKER) (test code = [facility], 1538) 50158: Behavioral Health Worker/Techni herson ID = [id number] for CRESENCIO BAH ABORCricket, [id number] 02:14:00 Test Item Value Reference Range Interpretation Comments ABO Grouping (test code = 2588) O Rh Factor (test code = 2589) POS [facility] DistrictType and screen, [id number] 02:08:00 Test Item Value Reference Range Interpretation Comments ABO/RH AUTOMATED (BEAKER) (test O POSITIVE code = 2260) Ab Scrn (test code = 890-4) NEGATIVE [facility]UM2020-06-16 01:51:00 Test Item Value Reference Range Interpretation Comments MAGNESIUM (BEAKER) (test code = 1.8 mg/dL 1.6-2.6 627) Behavioral Health Worker BRANDEN MONTOYA WBASIC METABOLIC [id number] 01:51:00 Test Item Value Reference Range Interpretation [...] S NOT APPLICABLE FOR DIALYSIS PATIEN TS. Behavioral Health Worker ID Bryant MONTOYA [id number] 01:42:00 Test Item Value Reference Range Interpretation [...] 0-0 (BEAKER) (test code = 413) POCT-GLUCOSE [id number] 21:29:00 Test Item Value Reference Range Interpretation Comments POC-GLUCOSE METER 222 mg/dL 70-110 H : TESTED A T [facility] 6720 (BEAKER) (test code = [facility], 1538) 6[address]39: Behavioral Health Worker/Techni herson ID = [id number] for CRESENCIO BAH [id number] 19:59:00 Test Item Value Reference Range Interpretation Comments PARTIAL THROMBOPLASTIN TIME 76.3 seconds 22.5-36.0 H (BEAKER) (test code = 760) POCT-GLUCOSE [id number] 17:25:00 Test Item Value Reference Range Interpretation Comments POC-GLUCOSE METER 259 mg/dL 70-110 H : TESTED A T [facility] 6720 (BEAKER) (test code = [facility], 1538) 12278: Behavioral Health Worker/Techni herson ID = [id number] for HOMERO VALERIO RAD, FOOT, MIN 3 VIEWS, [id number] 15:46:00Reason for exam:->gangrene FINAL REPORT CLINICAL HISTORY: [...] Cortez MDReport Verified Date/Time: 12/01/2019 15:46:27Reading Location: [facility] Radiology Reading Room SARS-COV2/RT-PCR ([facility])2019-12-01 14:10:00 Test Item Value Reference Range Interpretation Comments SARS-COV2/RT-PCR (test Not Detected Not Detected, Negative code = 7498830) SARS-COV-2 PERFORMING LAB [facility] (test code = 8635138) Negative results do not preclude SARS-CoV-2 infection [...] of the Act.Fact Sheet for Healthcare Pro viders:https://www.DiversityDoctor.Sharalike/Documents/Xpert%20Xpress%20SARS%20CoV-2/Fact%20Sh eets/302-4352%48DOBF-WYG-7%20HEALTHCARE%20PROVIDERS%20FACT%20SHEET.pdfFact Sheet for Healthcare Patients:https://www.Rip van Wafels.Sharalike/Documents/Xpert%20Xpress%20SARS%20CoV-2/Fact%20Sheets/302-3801%20SARS-COV -2%20PATIENT%20FACT%20SHEET.pdfPerforming Laboratory:[facility], [place] [id number] 12:34:00 Test Item Value Reference Range Interpretation Comments PARTIAL THROMBOPLASTIN TIME 47.2 seconds 22.5-36.0 H (BEAKER) (test code = 760) POCT-GLUCOSE [id number] 12:24:00 Test Item Value Reference Range Interpretation Comments POC-GLUCOSE METER 185 mg/dL 70-110 H : Notified RN/MD: (BEAKER) (test code = TESTED AT [facility] 6720 1538) [facility], [address]32[address]: Behavioral Health Worker/Techni herson ID = [id number] for HOMERO VALERIO C-Reactive [id number] 06:04:00 Test Item Value Reference Range Interpretation Comments CRP (test code = 676) 13.79 mg/dL 0-0.5 H BASIA (test code = BASIA) Behavioral Health Worker ID - PIAYA L Lab Interpretation (test Abnormal code = 42698-4) [facility] DistrictCOMPREHENSIVE METABOLIC [id number] 06:04:00 Test Item Value Reference Range Interpretation [...] S NOT APPLICABLE FOR DIALYSIS PATIEN TS. Behavioral Health Worker ID - PIAYA LC-REACTIVE [id number] 06:04:00 Test Item Value Reference Range Interpretation Comments C-REACTIVE PROTEIN (BEAKER) (test 13.79 mg/dL 0.00-0.50 H code = 676) Behavioral Health Worker ID - PIAYA [id number] 05:28:00 Test Item Value Reference Range Interpretation Comments PARTIAL THROMBOPLASTIN TIME 35.0 seconds 22.5-36.0 (BEAKER) (test code = 760) 6 hours after starting heparin infusion and as indicated per sliding scaleAPTT 2019-12-01 05:27:00 Test Item Value Reference Range Interpretation Comments PARTIAL THROMBOPLASTIN TIME 33.8 seconds 22.5-36.0 (BEAKER) (test code = 760) Prior to initiating heparinPROTHROMBIN TIME/[id number] 05:26:00 Test Item Value Reference Range Interpretation [...] to initiating heparinCBC W/PLT COUNT & AUTO [id number] 05:12:00 Test Item Value Reference Range Interpretation [...] 417) IMMATURE GRANULOCYTES-RELATIVE 0 % 0-1 PERCENT (RICK) (test code = 2801)
--- OUTSIDE RECORDS SUMMARY | 2020-06-21 11:30 | XMS REPORT | Summary of Care ---
:1945 Author Organization [facility] [place] [address] Care Team Providers Name Role Phone Garret Don MD Primary Care Provider Reason for Visit Reason Comments Follow Up Encounter Details Date Type Department Care Team Description 06/07/2020 Office Visit [facility] Gabriel Silva, Follow Up Vascular Surgery [address] [facility] [address] 6[address], [address] [place] [address] [place], [place] [id number] Allergies No Known Active Allergiesdocumented as of this encounter (statuses as of 06/09/2020) Medications Medication Sig Dispensed Refills Start Date [...] tablet ACCU-CHEK GUIDE 0 01/05/2020 Act yeimy nortriptyline Take 25 mg 0 07/17/2019 Acti ve (PAMELOR) 25 MG by mouth. capsule pantoprazole Take 40 mg 0 10/22/2019 Activ e (PROTONIX) 40 MG by mouth. tablet polyethylene glycol Take 17 g by 0 10/22/2019 Active (GLYCOLAX) 17 g mouth. packet Psyllium (METAMUCIL Take 1 0 10/22/2019 Active FIBER) 51.7 % PACK Packet by mouth. BRILINTA 90 MG TABS TK 1 T PO 0 12/31/2019 Active BID lisinopril Take 5 mg by 0 02/17/2020 Activ e (PRINIVIL, ZESTRIL) mouth. 1 5 MG tablet ferrous sulfate 325 Take 325 mg 0 02/17/2020 02 Active (65 Fe) MG tablet by mouth. 1 insulin glargine Inject 7 10 mL 0 04/05/2020 Ac tive (LANTUS) 100 Units into UNIT/ML injection the skin nightly. Metformin HCl 500 Take by 0 Ac tive MG/5ML SOLN mouth. metformin Take 1 Tab 60 Tab 0 04/05/2020 Disconti nued (GLUCOPHAGE) 1000 by mouth two 0 (*Alternate MG tablet times daily. 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, with 02/26/2020 long-term current use of insulin (HCCode) documented as of this encounter (statuses as of 06/09/2020) Immunizations Name Administration Dates Next Due Influenza [...] Sign Reading Time Taken Comments Blood Pressure 101/65 06/07/2020 2:30 PM CUSTOM FURRIER Pulse 65 06/07/2020 2:30 PM CUSTOM FURRIER Temperature - - Respiratory Rate - - Oxygen Saturation - - Inhaled Oxygen Concentration - - Weight 62.1 kg (137 lb) 06/07/2020 2:30 PM CUSTOM FURRIER Height 162.6 cm (5' 4") 06/07/2020 2:30 PM CUSTOM FURRIER Body Mass Index 23.52 06/07/2020 2:30 PM CUSTOM FURRIER documented in this encounter Patient Instructions Patient InstructionsJosseline King - 06/07/2020 2:49 PM CSTThank you for choosing [facility]. You may receive a survey in the mail. Please provide comments to let us know how we can improve our patient care. Instructions for your care: Patient will follow up in 4 weeks RX for dm shoes given in office Gabriel Silva DPM furniture painter Division of Vascular Surgery and Endovascular Therapy If you have any questions, please feel free to call us at: OM FURRIER documented in this encounter Progress Notes Mouna Thayer FNPC - 06/07/2020 2:00 PM CST Subjective: Ms. Maria Isabel Stacy is a pleasant 74 y.o. female who returns to the clinic today for follow up on R TMA Chief Complaint Patient presents with Follow Up . she admits to to being compliant with her local wound care consisting of keeping stump moisturizedwith Aquaphor. She denies any additional complaints today. Lab Results Component Value Date HGBA1C 10.0 (H) 12/02/2019 Surgical history includes amputation of right 2nd digit, debridement to level of the bone, partial 2nd and 3rd ray amputation (12/02/19 - Ricardo), R angiogram, AT [facility] and stent (12/03/19 - Joan), R TMA (12/05/19 - Ricardo), debridement R TMA greater to the bone, with application of Integra graft (12/12/19 - Ricardo),debridement and revision of R TMA and application of STSG (02/10/20 - Ricardo and Joan). Physical Exam: BP 101/65 (BP Location: left arm, Patient Position: Sitting, Cuff Size: regular) | Pulse 65 | Ht 5' 4" (1.626 m) | Wt 137 lb (62.1 kg) | BMI 23.52 kg/m Wound site right TMA presents with hyperkeratosis. There is not any evidence of edema, erythema, purulence, malodor, probe to bone, tracking or tunneling noted. The wound site is healed. Assessment/Plan: Encounter Diagnosis and Orders ICD-10-CM 1. S/P transmetatarsal amputation of foot, right (HCCode) Z89.431 1. With the use of a sharp and sterile curette, the TMA stump was sharply debrided. 2. Prescription for PT given. 2. Encounter for post surgical wound check Z48.89 3. Type 2 diabetes mellitus with diabetic neuropathic arthropathy, with long- term current use of insulin (HCCode) E11.610 1. DM education given and reinforced as previous OV. Patient verbalized understanding. 2. New Life and generic DM shoe prescription given. Z79.4 4. PAD (peripheral artery disease) (HCCode) I73.9 1. A25 and f/u scheduled with Dr. Franco 07/08. TMA stump healed. Return in about 4 weeks (around 07/05/2020) for R TMA wound check. ISAURO Scruggs [facility] Division of Vascular Surgery and Podiatry [facility] Podiatric Attending Attestation I was present for and performed the evaluation and treatment and agree with the plan and personally examined the patient with ISAURO Scruggs. I have reviewed the notes, assessments, and/or procedures performed by ISAURO Scruggs, I concur with her documentation of Mrs. Maria Isabel Stacy. Gabriel Silva DPM OM FURRIER documented in this encounter Plan of Treatment Date Type Specialty Care Team Description 06/28/2020 Ancillary Procedure Vascular Surgery 06/28/2020 Office Visit Vascular Surgery Giovanny Franco MD [address] [place], [place] [address] [phone] Name Type Priority Associated Diagnoses Order S chedule WA DEBRIDEMENT OPEN WA Charge Routine S/P transmetatarsal O rdered: WOUND 20 SQ CM< amputation of foot, right 06/08/2020 (HCCode) Health Maintenance Due Date Last Done Comments [...] 01/20/2021 01/21/2020 PNEUMOVAX >=65 (PPSV23) Completed 04/10/2018 HPV VACCINE Aged Out No longer eligib le based on patient 's age to complete this topic documented as of this encounter Results Not on filedocumented in this encounter Visit Diagnoses Diagnosis S/P transmetatarsal amputation of foot, right (HCCode) - Primary Encounter for post surgical wound check Type 2 diabetes mellitus with diabetic n europathic arthropathy, with long-term current use of insulin (HCCode) PAD (peripheral artery disease) (HCCode) Unspecified disorders of arteries and ar terioles documented in this encounter Insurance Payer Benefit Plan / Subscriber ID Effective Phone Address T ype Group Dates UNITED DUAL COMPLETE [id number] 2019-Pres [address] [address] Medicare HEALTHCARE [facility] [place] [address] MEDICAID TMHP-MEDICAID [id number] Effective for [address] dicaid - MEDICAID all dates [id number] [place] [address] documented as of this encounter
--- OUTSIDE RECORDS SUMMARY | 2020-06-21 11:30 | XMS REPORT | Summary of Care ---
:1945 Author Organization [facility] - Health Address [address] [place] [address] Care Team Providers Name Role Phone Vanesa Riggs MD Primary Care Provider [phone] Beni Cuenca MD Unavailable Encounter Details Date Type Department Care Team Description 05/07/2020 Orders Only [facility] Doctor Unassigned, No [address] [facility] [place] [address] [address] [place] [address] Allergies No Known Allergiesdocumented as of this encounter (statuses as of 05/28/2020) Medications Medication Sig Dispensed Refills Start Date End Date Status Blood-Glucose Meter Use BID, DX E11.9 1 Kit 0 11/07/2017 Active KitIndications: (Brand upon Uncontrolled type 2 insurance diabetes mellitus approval) without complication, with long-term current use of insulin lancets-blood glucose 1 Each 2 (two) 100 Each 11/07/2017 Active strips 30 gauge times daily. Use CmpkIndications: BID, DX E11.9 Uncontrolled type 2 (Brand upon diabetes mellitus insurance without complication, approval) with long-term current use of insulin blood sugar diagnostic Check blood sugar [address] 201 8 Active stripIndications: twice a day. Uncontrolled [...] as of this encounter (statuses as of 05/28/2020) Active Problems Problem Noted Date Gangrene 10/18/2019 [...] as of this encounter (statuses as of 05/28/2020) Immunizations Name Administration Dates Next Due Influenza [...] Due Date Last Done Comments COLON CANCER SCREENING 1996 ANNUAL FIT/FOBT COLON CANCER SCREENING FIT 1996 DNA EVERY 3 YEARS COLON CANCER SCREENING 1996 SIGMOIDOSCOPY EVERY 5 YEARS COLONOSCOPY 09/28/2011 09/27/2001 Colorectal Cancer Screening 09/28/2011 FOOT EXAM 03/25/2019 03/25/2018, 03/28/2017, 03/28/2017 EYE EXAM 05/21/2019 05/21/2018, 01/31/2017 (Previously completed), 10/27/2013, Additional history exists Medicare Wellness Visit 10/29/2019 10/28/2018 INFLUENZA VACCINE (#1) 2020 03/26/2019, 04/10/2018, 03/28/2017, Additional history exists Breast Cancer Screening 03/07/2020 03/07/2019, 04/26/2011 (MAMMOGRAM) HgA1C 04/18/2020 10/17/2019, 07/17/2019, 11/21/2018, Additional history exists URINE MICROALBUMIN 07/17/2020 07/17/2019, 04/10/2018, 05/30/2016, Additional history exists Zoster Recombinant Vaccine 07/17/2020 Postp oned from ([employer]) (1 of 2) 1996 ( Insurance / Financial) DTaP,Tdap,and Td Vaccines 08/16/2020 Postpo rand from (1 - Tdap) 1965 (Insu kishor / Financial) LDL-C 10/16/2020 10/17/2019, 09/30/2018, 05/29/2016, Additional history exists CREATININE (SERUM) 10/17/2020 10/18/2019, 10/17/2019, 09/08/2019, Additional history exists Depression Screening 10/17/2020 10/18/2019 Osteoporosis Screening 03/07/2029 03/07/2019 HEPATITIS C (HCV) SCREEN Completed 04/10/2018 PNEUMOCOCCAL VACCINES 65+ Completed 04/10/2018, 03/28/2017 documented as of this encounter Implants Implanted Type Area Oracle Adf Developer Device Shelf Model / Serial Identifier Expiration / Lot Date Log [id number] - Joel Eddie Lens (Virtual) - 1 - [id number] 19.0d, Eddie Lens LENS Left: Eye Eddie 12/28/2015 [id number] 19.0D / Implanted: Qty: 1 on 06/29/2011 at [facility] [id number] / documented as of this encounter Procedures Procedure Name Priority Date/Time Associated Diagnosis Comme nts EXTERNAL PROVIDER - ADC Routine 05/07/2020 12:01 AM POSTAL SERVICE CLERK REFERRAL documented in this encounter Results Not on filedocumented in this encounter Insurance Payer Benefit Plan / Subscriber ID Effective Phone Address T ype Group Dates [facility] [id number] 2017-Pres Medica re HEALTHCARE - HEALTHCARE ent Adv HM O MANAGED DUAL COMPLETE MEDICARE HMO [place] MEDICAID OF [id number] 2019-Pres [phone] Medi caid [place] ent [id number] [place] [address] documented as of this encounter Advance Directives Type Date Recorded Patient Smoke Jumper Explanati on Advance Directives and Living Will Power of Auto Painter
[2020-06-21 16:12] LABS: Absolute Lymphocytes (CBC) 1.9 K/uL (0.7-4.9); Basophils % 0.8 % (0-1.3); Hematocrit 36.8 % (36.0-45.0); Lymphocytes % 31.7 % (15.3-44.8); MPV 8.5 fL (7.6-11.3); RBC Red Blood Cell Count 4.19 M/uL (3.86-4.86)
[2020-06-21 16:13] LABS: Protime INR 1.11
--- NOTE | 2020-06-21 16:18 | RAD REPORT ---
EXAM DESCRIPTION: Annette Single View06/21/2020 4:11 pm CLINICAL HISTORY: Chest pain COMPARISON: 2009 FINDINGS: Moderate patchy left and mild to moderate patchy right lung opacities. . The heart is norm al size IMPRESSION: Bilateral patchy lung opacities probably pneumonia
[2020-06-21] MEDS ORDERED: FAMOTIDINE 20 MG/2 ML VIAL IV ONE ×2 (16:31→17:06)
[2020-06-21] MEDS ORDERED: NA CHLORIDE 0.9% 0 ML ONE (16:31)
[2020-06-21 16:45] LABS: ALT/SGPT 18 U/L (12-78); AST/SGOT 24 U/L (15-37); Albumin 2.8 g/dL (3.4-5.0); Alkaline Phosphatase 79 U/L (45-117); BUN Blood Urea Nitrogen 16 mg/dL (7-18); Bicarbonate 31 mmol/L (21-32); Bilirubin Direct 0.1 mg/dL (0-0.2); Bilirubin Total 0.6 mg/dL (0.2-1.0); Creatine Phosphokinase 23 U/L (26-192); Glucose Level 263 mg/dL (74-106); Magnesium 2.5 mg/dL (1.8-2.4); NT PRO-BNP 355 pg/mL (<125); Potassium 3.6 mmol/L (3.5-5.1); Protein, Total 8.1 g/dL (6.4-8.2); Sodium Level 136 mmol/L (136-145); Troponin (Emerg Dept Use Only) < 0.02 ng/mL (0.0-0.045)
[2020-06-21] MEDS ORDERED: NA CHLORIDE 0.9% 500 ML ONE (17:06)
[2020-06-21 17:23] LABS: SARS-COV-2 RT PCR POSITIVE (NEGATIVE)
--- NOTE | 2020-06-21 17:43 | RAD REPORT ---
EXAM DESCRIPTION: CT - Chest For Pe Angio - 06/21/2020 5:30 pm CLINICAL HISTORY: Shortness breath COMPARISON: 2009 TECHNIQUE: Dynamically enhanced axial 3 mm thick images of the chest were obtained during administra tion of <100> mL Isovue 370 IV contrast. Coronal and oblique reconstruction images were generated and reviewed. Exam utilizes a protocol for optimal evaluation of pulmonary arterial tree. Maximum intensity projections 3D imaging was utilized All CT scans are performed using dose optimization technique as appropriate and may include automated exposure control or mA/KV adjustment according to patient size. FINDINGS: A pulmonary embolus is not seen. A thoracic aortic aneurysm is not noted. A pleural effusion is not seen. A pericardial effusion is not seen. Mild to moderate patchy ground-glass opacities within the lungs IMPRESSION: Negative for a pulmonary embolism. Mild to moderate patchy ground-glass opacities within the lungs may be secondary to Covid pneumonia
--- NOTE | 2020-06-21 17:46 | ER ---
Nurse's Notes [facility] Name: Maria Isabel Acuna Age: 74 yrs Sex: Female : 1945 Arrival Date: 06/21/2020 Time: 11:17 Bed 5 Private MD: Diagnosis: Diarrhea, unspecified;Weakness;Type 2 diabetes mellitus;SARS-associated coronavirus as the cause of diseases classified elsewhere-covid positive;Pneumonia, unspecified organism-bilateral multifocal pna, covid positive Presentation: 06/21 12:04 Chief complaint: Patient states: vomiting and diarrhea. Pt states "I just feel very aa5 tired, I don't have diarrhea anymore just the nausea and vomiting". Pt denies any vomiting today. Pt denies fever. Pt reports family members are positive for COVID-19. Coronavirus screen: diarrhea, vomiting. Ebola Screen: Patient negative for fever greater than or equal to 101.5 degrees Fahrenheit, and additional compatible Ebola Virus Disease symptoms. Initial Sepsis Screen: Does the patient meet any 2 criteria? No. Patient's initial sepsis screen is negative. Does the patient have a suspected source of infection? No. Patient's initial sepsis screen is negative. Risk Assessment: Do you want to hurt yourself or someone else? Patient reports no desire to harm self or others. Onset of symptoms was 2020. 12:04 Acuity: DORCAS 3 aa5 12:04 Method Of Arrival: Wheelchair aa5 Triage Assessment: 12:10 General: Appears distressed, uncomfortable, Behavior is cooperative, appropriate for bp age, anxious. Pain: Denies pain. EENT: No deficits noted. Neuro: No deficits noted. Cardiovascular: Rhythm is sinus rhythm. Respiratory: No deficits noted. GI: Reports diarrhea, nausea. : No signs and/or symptoms were reported regarding the genitourinary system. Derm: No deficits noted. Musculoskeletal: No deficits noted. 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 - Social history:: Smoking status: Patient denies any tobacco usage or history of. Screenin:30 Abuse screen: Denies threats or abuse. Denies injuries from another. Nutritional bp screening: No deficits noted. Tuberculosis screening: No symptoms or risk factors identified. Fall Risk None identified. Assessment: 15:15 Reassessment: Patient appears in no apparent distress at this time. No changes from bp previously documented assessment. Patient and/or family updated on plan of care and expected duration. Pain level reassessed. General: PT MOVED FROM . SEE TRIAGE NOTE. 17:29 Reassessment: DAUGHTER IN LAW: JAMES ACUNA [phone]. bp 18:15 Reassessment: Patient appears in no apparent distress at this time. No changes from bp previously documented assessment. Patient and/or family updated on plan of care and expected duration. Pain level reassessed. D/C ON HOLD FOR IV ABX Patient states symptoms have improved. 19:02 Reassessment: PT D/C HOME AMBULATORY WITH FAMILY, DX WITH COVID PNEUMONIA. bp Vital Signs: 12:04 BP 112 / 82; Pulse 68; Resp 16 S; Temp 98.4(O); Pulse Ox 99% on R/A; Weight 62.14 kg aa5 (R); Height 5 ft. 4 in. (162.56 cm) (R); Pain 0/10; 14:00 BP 115 / 79; Pulse 75; Resp 17; Pulse Ox 99% ; bp 16:00 BP 123 / 81; Pulse 71; Resp 18; Pulse Ox 99% ; bp 18:00 BP 121 / 79; Pulse 69; Resp 16; Pulse Ox 98% ; bp 19:00 BP 117 / 71; Pulse 72; Resp 17; Temp 98.5; Pulse Ox 97% ; bp 12:04 Body Mass Index 23.52 (62.14 kg, 162.56 cm) aa5 ED Course: 11:17 Patient arrived in ED. rg4 12:04 Arm band placed on. aa5 12:06 Triage completed. aa5 15:20 Gabriel Azul, RUTH is Primary Nurse. bp 15:30 Allergy band placed. Bed in low position. Call light in reach. Side rails up X2. bp 15:38 Imtiaz Pelayo MD is Attending Physician. lizandro 15:46 Initial lab(s) drawn, by tn, sent to lab. Inserted saline lock: 20 gauge in right dh3 antecubital area, using aseptic technique. Blood collected. 16:00 T\\T\\S collected, blood band applied to patient. dh3 16:10 EKG done, by ED staff, reviewed by Imtiaz Pelayo MD. dh3 16:11 XRAY Chest (1 view) In Process Unspecified. EDMS 16:14 COVID swab sent to lab. Flu and/or RSV swab sent to lab. em1 17:30 CT Chest For PE Angio In Process Unspecified. EDMS 17:45 Rene Fitzpatrick MD is Referral Physician. lizandro 19:04 No provider procedures requiring assistance completed. IV discontinued, intact, bp bleeding controlled, No redness/swelling at site. Pressure dressing applied. Administered Medications: 16:00 Drug: Pepcid 20 mg Route: IVP; Site: right antecubital; bp 19:05 Follow up: Response: No adverse reaction bp 16:00 Drug: NS 0.9% 500 ml Route: IV; Rate: bolus; Site: right antecubital; bp 18:15 Drug: Zithromax 500 mg Route: IVPB; Infused Over: 1 hrs; Site: right antecubital; bp 18:15 Drug: Rocephin 1 grams Route: IV; Rate: per protocol; Site: right antecubital; bp 18:15 Drug: Decadron - Dexamethasone 10 mg Route: IVP; Site: right antecubital; bp 19:05 Follow up: Response: No adverse reaction bp 18:15 Drug: Aspirin 162 mg Route: PO; bp 19:04 Follow up: Response: No adverse reaction bp Point of Care Testing: Blood Glucose: 12:08 Blood Glucose: 244 mg/dL; aa5 Ranges: Outcome: 17:45 Discharge ordered by . lizandro 19:02 Patient left the ED. aa5 19:04 Discharged to home ambulatory. bp 19:04 Condition: stable 19:04 Discharge instructions given to patient, Instructed on discharge instructions, follow up and referral plans. medication usage, Demonstrated understanding of instructions, follow-up care, medications, Prescriptions given X 5 Signatures: Dispatcher [employer] [facility] Imtiaz Pelayo MD MD cha Martinez, Eric em1 Zora Castillo, RN RN aa5 Haleigh Neil 4 Krysta Fuentes 3 Gabriel Azul, RN RN bp Corrections: (The following items were deleted from the chart) 13:31 12:04 Chief complaint: Patient states: vomiting and diarrhea. Pt states "I just feel aa5 very tired, I don't have diarrhea anymore just the nausea and vomiting". Pt denies any vomiting today. Pt denies fever. aa5
--- NOTE | 2020-06-21 17:46 | EDPHYS ---
Physician Documentation [facility] Name: Maria Isabel Stacy Age: 74 yrs Sex: Female : 1945 Arrival Date: 06/21/2020 Time: 11:17 Bed 5 Private MD: ED Physician Imtiaz Pelayo HPI: 06/21 15:48 This 74 yrs old Female presents to ER via Wheelchair with complaints of lizandro Vomiting/Diarrhea, General Weakness. 15:48 The patient presents to the emergency department with nausea, vomiting, diarrhea, that lizandro is intermittent. Onset: The symptoms/episode began/occurred 4 day(s) ago. Possible causes: unknown, covid exposure. The symptoms are aggravated by nothing. The symptoms are alleviated by nothing. remaining still. Associated signs and symptoms: Pertinent positives: anorexia, diarrhea, fever, nausea. Severity of symptoms: At their worst the symptoms were mild in the emergency department the symptoms are unchanged. The patient has not experienced similar symptoms in the past. 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 - Social history:: Smoking status: Patient denies any tobacco usage or history of. ROS: 15:50 Eyes: Negative for injury, pain, redness, and discharge, ENT: Negative for injury, lizandro pain, and discharge, Neck: Negative for injury, pain, and swelling, Cardiovascular: Negative for chest pain, palpitations, and edema, Respiratory: Negative for shortness of breath, cough, wheezing, and pleuritic chest pain, Back: Negative for injury and pain, : Negative for injury, bleeding, discharge, and swelling, MS/Extremity: Negative for injury and deformity, Neuro: Negative for headache, weakness, numbness, tingling, and seizure, Psych: Negative for depression, anxiety, suicide ideation, homicidal ideation, and hallucinations, Allergy/Immunology: Negative for hives, rash, and allergies, Endocrine: Negative for neck swelling, polydipsia, polyuria, polyphagia, and marked weight changes, Hematologic/Lymphatic: Negative for swollen nodes, abnormal bleeding, and unusual bruising. 15:50 Constitutional: Positive for chills, fatigue, fever, malaise. 15:50 Respiratory: Positive for cough. 15:50 Abdomen/GI: Positive for nausea and vomiting, diarrhea. 15:50 Skin: Positive for pallor. 15:50 Neuro: Positive for weakness. Exam: 15:50 Constitutional: This is a well developed, well nourished patient who is awake, alert, lizandro and in no acute distress. Head/Face: Normocephalic, atraumatic. Eyes: Pupils equal round and reactive to light, extra-ocular motions intact. Lids and lashes normal. Conjunctiva and sclera are non-icteric and not injected. Cornea within normal limits. Periorbital areas with no swelling, redness, or edema. ENT: Nares patent. No nasal discharge, no septal abnormalities noted. Tympanic membranes are normal and external auditory canals are clear. Oropharynx with no redness, swelling, or masses, exudates, or evidence of obstruction, uvula midline. Mucous membranes moist. Neck: Trachea midline, no thyromegaly or masses palpated, and no cervical lymphadenopathy. Supple, full range of motion without nuchal rigidity, or vertebral point tenderness. No Meningismus. Chest/axilla: Normal chest wall appearance and motion. Nontender with no deformity. No lesions are appreciated. Cardiovascular: Regular rate and rhythm with a normal S1 and S2. No gallops, murmurs, or rubs. Normal PMI, no JVD. No pulse deficits. Abdomen/GI: Soft, non-tender, with normal bowel sounds. No distension or tympany. No guarding or rebound. No evidence of tenderness throughout. Back: No spinal tenderness. No costovertebral tenderness. Full range of motion. Female : Normal external genitalia. Skin: Warm, dry with normal turgor. Normal color with no rashes, no lesions, and no evidence of cellulitis. MS/ Extremity: Pulses equal, no cyanosis. Neurovascular intact. Full, normal range of motion. Neuro: Awake and alert, GCS 15, oriented to person, place, time, and situation. Cranial nerves II-XII grossly intact. Motor strength 5/5 in all extremities. Sensory grossly intact. Cerebellar exam normal. Normal gait. Psych: Awake, alert, with orientation to person, place and time. Behavior, mood, and affect are within normal limits. 15:50 Respiratory: the patient does not display signs of respiratory distress, Respirations: Breath sounds: are clear throughout, no acute changes, Respiratory rate: 16 16:51 ECG was reviewed by the Attending Physician. lizandro 16:51 Musculoskeletal/extremity: ROM: intact in all extremities, full active range of motion, full passive range of motion, Circulation is intact in all extremities. Sensation intact. Compartment Syndrome exam of affected extremity: is normal. DVT Exam: No signs of deep vein thrombosis. no pain, no swelling, no tenderness, negative Homans' sign noted on exam, no appreciated bluish discoloration, no erythema, no increased warmth. Vital Signs: 12:04 BP 112 / 82; Pulse 68; Resp 16 S; Temp 98.4(O); Pulse Ox 99% on R/A; Weight 62.14 kg aa5 (R); Height 5 ft. 4 in. (162.56 cm) (R); Pain 0/10; 14:00 BP 115 / 79; Pulse 75; Resp 17; Pulse Ox 99% ; bp 16:00 BP 123 / 81; Pulse 71; Resp 18; Pulse Ox 99% ; bp 18:00 BP 121 / 79; Pulse 69; Resp 16; Pulse Ox 98% ; bp 19:00 BP 117 / 71; Pulse 72; Resp 17; Temp 98.5; Pulse Ox 97% ; bp 12:04 Body Mass Index 23.52 (62.14 kg, 162.56 cm) aa5 MDM: 15:38 Patient medically screened. lizandro 15:51 Differential diagnosis: Nonspecific abd pain, gastritis, pancreatitis, viral lizandro gastroenteritis, gastroenteritis. Differential Diagnosis sepsis. Data reviewed: vital signs, nurses notes, lab test result(s), EKG, radiologic studies, plain films. Data interpreted: monitoring specialist: rate is 68 beats/min, rhythm is regular, Pulse oximetry: on room air is 99 %. Test interpretation: by ED physician or midlevel provider: ECG, plain radiologic studies. Counseling: I had a detailed discussion with the patient and/or guardian regarding: the historical points, exam findings, and any diagnostic results supporting the discharge/admit diagnosis, lab results, radiology results. 06/21 12:21 Order name: Glucose, Ancillary Testing; Complete Time: 15:33 EDMS 06/21 15:34 Order name: Basic Metabolic Panel; Complete Time: 16:46 snw 06/21 15:34 Order name: CBC with Diff; Complete Time: 16:46 snw 06/21 15:34 Order name: LFT's; Complete Time: 16:46 snw 06/21 15:34 Order name: Magnesium; Complete Time: 16:46 snw 06/21 15:34 Order name: NT PRO-BNP; Complete Time: 16:46 snw 06/21 15:34 Order name: PT-INR; Complete Time: 16:46 snw 06/21 15:34 Order name: Troponin (emerg Dept Use Only); Complete Time: 16:46 snw 06/21 15:34 Order name: Lactate; Complete Time: 16:46 snw 06/21 15:35 Order name: Procalcitonin; Complete Time: 17:44 snw 06/21 15:35 Order name: CPK; Complete Time: 16:46 snw 06/21 15:47 Order name: Type And Screen [facility] 06/21 15:34 Order name: XRAY Chest (1 view); Complete Time: 16:46 w 06/21 15:34 Order name: EKG; Complete Time: 15:35 snw 06/21 15:34 Order name: Cardiac monitoring; Complete Time: 16:16 snw 06/21 15:34 Order name: EKG - Nurse/Tech; Complete Time: 16:15 snw 06/21 15:53 Order name: Lipase; Complete Time: 17:24 lizandro 06/21 15:53 Order name: CRP; Complete Time: 17:24 [facility] 06/21 15:53 Order name: Ferritin; Complete Time: 17:24 [facility] 06/21 16:49 Order name: Blood Culture Adult (2) [facility] 06/21 16:51 Order name: CT Chest For PE Angio; Complete Time: 17:44 [facility] 06/21 17:24 Order name: COVID-19/FLU A+B; Complete Time: 17:26 EDMS 06/21 15:34 Order name: IV Saline Lock; Complete Time: 15:53 snw 06/21 15:34 Order name: Labs collected and sent; Complete Time: 15:53 snw 06/21 15:34 Order name: O2 Per Protocol; Complete Time: 15:53 snw 06/21 15:34 Order name: O2 Sat Monitoring; Complete Time: 15:53 snw EC:51 Rate is 65 beats/min. Rhythm is regular. QRS Thayer is Normal. VT interval is normal. QRS lizandro interval is normal. QT interval is normal. No Q waves. T waves are Normal. ST Segment is depressed in leads III, aVF, V5, V6. Interpreted by me. Reviewed by me. Administered Medications: 16:00 Drug: Pepcid 20 mg Route: IVP; Site: right antecubital; bp 19:05 Follow up: Response: No adverse reaction bp 16:00 Drug: NS 0.9% 500 ml Route: IV; Rate: bolus; Site: right antecubital; bp 18:15 Drug: Zithromax 500 mg Route: IVPB; Infused Over: 1 hrs; Site: right antecubital; bp 18:15 Drug: Rocephin 1 grams Route: IV; Rate: per protocol; Site: right antecubital; bp 18:15 Drug: Decadron - Dexamethasone 10 mg Route: IVP; Site: right antecubital; bp 19:05 Follow up: Response: No adverse reaction bp 18:15 Drug: Aspirin 162 mg Route: PO; bp 19:04 Follow up: Response: No adverse reaction bp Point of Care Testing: Blood Glucose: 12:08 Blood Glucose: 244 mg/dL; aa5 Ranges: Critical Glucose Levels:Adult <50 mg/dl or >400 mg/dl <40 mg/dl or >180 mg/dl Disposition: 06/21/20 17:45 Discharged to Home. Impression: Diarrhea, unspecified, Weakness, Type 2 diabetes mellitus, SARS-associated coronavirus as the cause of diseases classified elsewhere - covid positive, Pneumonia, unspecified organism - bilateral multifocal pna, covid positive. - Condition is Stable. - Discharge Instructions: Food Choices to Help Relieve Diarrhea, Adult, Type 2 Diabetes Mellitus, Diagnosis, Adult, Diarrhea, Adult, Weakness, Fatigue, Diarrhea, Adult, [id number], Weakness, [id number], Aspirin and Your Heart, Type 2 Diabetes Mellitus, Diagnosis, Adult, [id number], COVID-19. - Prescriptions for dexamethasone 2 mg Oral tablet - take 1 tablet by ORAL route 3 times per day; 15 tablet. Pepcid 20 mg Oral Tablet - take 1 tablet by ORAL route every 12 hours for 10 days; 20 tablet. Zofran 4 mg Oral Tablet - take 1 tablet by ORAL route every 12 hours As needed; 20 tablet. Albuterol Sulfate 90 mcg/actuation - inhale 1-2 puff by INHALATION route every 4-6 hours; 1 Inhaler. Zithromax 500 mg Oral Tablet - take 1 tablet by ORAL route once daily for 4 days; 4 tablet. - Medication Reconciliation Form, Thank You Letter, Antibiotic Education, Prescription Opioid Use form. - Follow up: Private Physician; When: 2 - 3 days; Reason: Recheck today's complaints, Continuance of care, Re-evaluation by your physician. Follow up: Rene Fitzpatrick; When: 2 - 3 days; Reason: Recheck today's complaints, Re-evaluation by your physician. - Problem is new. - Symptoms have improved. Signatures: Dispatcher [employer] EDMS Imtiaz Pelayo MD MD cha Waters, Shelly, [employer] REPRESENTATIVE-C [employer] REPRESENTATIVE-Ericaw Zora Castillo, RN RN aa5 Gabriel Azul RN RN bp Corrections: (The following items were deleted from the chart) 16:14 15:35 CORONAVIRUS+MR.LAB.BRZ ordered. EDMS EDMS 16:16 15:35 Influenza Screen (A \T\ B)+BA.LAB.BRZ ordered. EDOK EDMS 19:02 17:45 06/21/2020 17:45 Discharged to Home. Impression: Diarrhea, unspecified; Weakness; aa5 Type 2 diabetes mellitus; SARS-associated coronavirus as the cause of diseases classified elsewhere - covid positive; Pneumonia, unspecified organism - bilateral multifocal pna, covid positive. Condition is Stable. Discharge Instructions: Food Choices to Help Relieve Diarrhea, Adult, Type 2 Diabetes Mellitus, Diagnosis, Adult, Diarrhea, Adult, Weakness, Fatigue, Diarrhea, Adult, [id number], Weakness, Obno-vw-Wcop, Aspirin and Your Heart, Type 2 Diabetes Mellitus, Diagnosis, Adult, [id number]-[id number]-[id number], COVID-19. Prescriptions for dexamethasone 2 mg Oral tablet - take 1 tablet by ORAL route 3 times per day; 15 tablet, Pepcid 20 mg Oral Tablet - take 1 tablet by ORAL route every 12 hours for 10 days; 20 tablet, Zofran 4 mg Oral Tablet - take 1 tablet by ORAL route every 12 hours As needed; 20 tablet, Albuterol Sulfate 90 mcg/actuation - inhale 1-2 puff by INHALATION route every 4-6 hours; 1 Inhaler, Zithromax 500 mg Oral Tablet - take 1 tablet by ORAL route once daily for 4 days; 4 tablet. and Forms are Medication Reconciliation Form, Thank You Letter, Antibiotic Education, Prescription Opioid Use. Follow up: Private Physician; When: 2 - 3 days; Reason: Recheck today's complaints, Continuance of care, Re-evaluation by your physician. Follow up: Rene Fitzpatrick; When: 2 - 3 days; Reason: Recheck today's complaints, Re-evaluation by your physician. Problem is new. Symptoms have improved. lizandro
[2020-06-21] MEDS ORDERED: AZITHROMYCIN IV 500 MG in NA CHLORIDE 0.9% 250 ML IVPB ONE (18:00)
[2020-06-21] MEDS ORDERED: NA CHLORIDE 0.9% 100 ML ONE (18:07)
[2020-06-21] MEDS ORDERED: dexAMETHasone 10 MG/ML VIAL ONE (18:07)
[2020-06-21] MEDS ORDERED: ASPIRIN 81 MG CHEWABLE TABLET ONE (18:07)
[2020-06-21] MEDS ORDERED: CEFTRIAXONE/SWI 1gm 1 GM/10 ML SYR ONE (18:08)
[2020-06-21 19:40] VITALS: BP 117/71; TEMP 98.5; O2SAT 97
--- NOTE | 2020-06-23 06:35 | EKG ---
Test Date: 2020-06-21 Test Time: 16:06:56 Kiss Setter Hand: DWAIN MEASUREMENT RESULTS: Intervals: Rate: 65 SC: 168 QRSD: 88 QT: 428 QTc: 445 [place]: P: -16 SC: 168 QRS: 40 T: 72 INTERPRETIVE STATEMENTS: Normal sinus rhythm Nonspecific T wave abnormality Abnormal ECG Compared to ECG 11/30/2019 21:53:39 T-wave abnormality now present Sinus arrhythmia no longer present Electronically Signed On 06-23-20 06:32:05 [employer] by Tramaine Ryan
== END 2020-06-21 19:02 | disposition home or self-care (01) ==
LOC: ER 11:13
DX: U07.1 COVID-19 (principal); J12.89 Other viral pneumonia; R53.1 Weakness; R19.7 Diarrhea, unspecified; E11.9 Type 2 diabetes mellitus without complications
CPT/HCPCS: 93005; 87040 ×2; 85025; 80048; 36415; 86900; 83735; 86850; 82550; 85610; 86901; 82947; 80076; 83605; 84484; 82728; 83690; 84145; 83880; 0240U; 86140; 71275; 71045; 96375; 96374; 99284; Q9967; J0456; J1100; J0696; J7050; J7040

== ENCOUNTER 2020-09-24 16:17 | Observation (INO) | payer OTHER ==
--- OUTSIDE RECORDS SUMMARY | 2020-09-24 16:25 | XMS REPORT | Continuity of Care Document ---
:[address] [facility] t Address [address] [place] [address] Care Team Providers Name Role Phone Pcp Primary Care Physician Unavailable Oneil KIM, Bo Attending Clinician Balta Stovall DPM Attending Clinician Doctor Unassigned, [...] Clinician Unavailable Lucretia MERCEDES Attending Clinician Unavailable Sutaria MD, S Attending Clinician Gregory KIM, PKaran Attending Clinician Chelsey KIM, Wade Attending Clinician Reilly KIM, Rich Attending Clinician Júnior Rosas MD Attending Clinician Letitia Lizarraga CRNA Attending Clinician Juan KIM Attending Clinician Devan Horner CRNA Attending Clinician Lionel Franco MD Attending Clinician Debbie Abdul CRNA Attending Clinician [phone] OSMIN Admitting Clinician Unavailable DADA ALEJO Admitting Clinician Unavailable Lucretia MERCEDES Admitting Clinician Unavailable Payers Payer Name Policy Type Policy Effective Date Expiration Date Sour ce Number [facility] - [id number] 2017 [place] MEDICARE MGD 00:00:00 - Medical CAREUNITED MEDICARE [facility] [id number] 2017-P resent MEDICAIDMEDICAID OF [id number] 2018 [place] [id number] 00:00:00 - Medical 8-PresentMedicaid Center Problems Condition Condition Condition Status Onset Resolution Last Treating Co mments Source Name Details Category Date Date Treatment Clinician Date Post-opera Post-opera Disease Active [facility] Laurita kes - 00:00: Medical 00 [...] 12-17 [facility] - 00:00: Medical 00 [place] Anemia Anemia Disease [facility] 00 [place] Thrombocyt Thrombocyt Disease Active [facility] osis osis 12-17 [facility] - 00:00: Medical 00 [place] Gangrene Gangrene Disease Active [facility] S t of toe of of toe of 11-30 ke s - right foot right foot 00:00: Me dical 00 Center Allergies, Adverse Reactions, Alerts This patient has no known allergies or adverse reactions. Family History Family Member Diagnosis Comments Start Date Stop Date Source Natural father Diabetes type II [facility] Social History Social Habit Start Date Stop Date Quantity Comments [facility] - [facility] Dr[facility] Medica l [place] History [facility] - Alcohol Binge Medical [facility] ter Sex Assigned At [facility] Tobacco use and 2020-02-10 2020-02-[address] [facility] exposure 00:00:00 00:00:00 [facility] Alcohol intake 2020-02-10 2020-02-10 [facility] non-drinker of Medical Ce nter alcohol (finding) History [facility] 2019-12-01 2019-12-01 [facility] Frequency 00:00:00 00:00:00 [facility] Smoking Status Start Date Stop Date Source Never smoker [facility] M edical [place] Medications Ordered Filled Start Stop Current Ordering Indication Dosage Frequency Signature Comments Components Source Medication Medication Date Date Medication? Clinician (SIG) Name Name Missing or Yes . [facility] Non-Formula 02-16 [facility] - ry 17:17: Medical Medication 54 Center lisinopriL 2020- No 5mg QD Take 1 [facility] (PRINIVIL,Z 02-16 tablet (5 Laurita kes - [...] l 00 by mouth Center daily. multivitami 2019-2019- No 1{tbl} QD Take [address] n -02-28 tablet by [facility] - (THERAGRAN) 00:00: 23:59 mouth Medi casey tablet 00 :00 daily for Center 60 days. zinc 2019- No 220mg QD Take [address] sulfate 12-30 capsule [facility] - (ZINCATE) 00:00: 23:59 (220 mg Medi casey 220 (50) mg 00 :00 total) by Joana ter capsule mouth daily for 60 days. multivitami 2019-2019- No 1{tbl} QD Take [address] n -15 - tablet by [facility] - (THERAGRAN) 00:00: 00:00 mouth Medi casey tablet 00 :00 daily for Center 60 days. zinc 2019-2019- No 220mg QD Take [address] sulfate -15 -14 capsule [facility] - (ZINCATE) 00:00: 00:00 (220 mg Medi casey 220 (50) mg 00 :00 total) by Joana ter capsule mouth daily for 60 days. aspirin 81 2019-2019- No 81mg QD Take [address] MG chewable -15 -14 tablet (81 L ukes - tablet 00:00: 00:00 mg total) Medic al 00 :00 by mouth Center daily. insulin 2019-2019- No 10U QD Inject [address] glargine -14 -14 Units [facility] - (LANTUS) 13:11: 00:00 subcutaneo [...] ical (VITAMIN C) 00 :00 total) by [facility] ter 500 MG mouth 2 tablet (two) times daily for 60 days. gabapentin 2019-0 2020- No 300mg [id number] Take [address] (NEURONTIN) 12-29 [id number] capsule [facility] - 300 MG 00:00: 23:59 [...] 00 :00 needed Center packet (constipat ion). gabapentin 2019-2019- No 300mg [id number] Take [address] (NEURONTIN) 12-29 [id number] capsule [facility] - 300 MG 00:00: 00:00 [...] and dinner for 60 days. polyethylen 2019- No 17g Take [address] e glycol 12-29 by mouth [facility] - (GLYCOLAX) 00:00: 00:00 daily as Me dical 17 gram 00 :00 needed Center packet (constipat ion). ticagrelor 2019- No 90mg Q.5D Take 1 [...] tablet (two) times daily for 60 days. atorvastati 2019- 2020- No 80mg QD Take [address] [...] ical (VITAMIN C) 00 :00 total) by [facility] ter 500 MG mouth 2 tablet (two) times daily for 60 days. docusate 2019- No 100mg Take 1 [facility] t sodium 12-29 capsule [facility] - (COLACE) 00:00: 00:00 (100 mg Medic al 100 MG 00 :00 total) by Center capsule mouth daily as needed for Constipati on. apixaban 2019- No prevent 2.5mg Q.5D Take [...] tablet 00:00: 00:00 daily. Medical 00 :00 [place] clopidogreL 2019- No 1{tbl} QD Take [address] (PLAVIX) 75 5- 07-14 tablet by Laurita kes - mg tablet 00:00: 00:00 mouth Medica l 00 :00 daily. [place] atorvastati 2019- No 1{tbl} QD Take [address] n (LIPITOR) 5- 07-14 tablet by Laurita kes - 40 MG 00:00: 00:00 mouth Medical tablet 00 :00 nightly. [place] pantoprazol 2019- No 1{tbl} QD Take [address] e 5- 07-14 tablet by [facility] - (PROTONIX) 00:00: 00:00 mouth Medic al 40 MG 00 :00 daily. [place] tablet nortriptyli Yes 25mg QD Take [address] ne 1-30 by mouth [facility] - (PAMELOR) 00:00: daily. Medica l 25 MG 00 Center capsule Vital Signs Vital Name Observation Time Observation Value Comments Source Systolic blood 2020-02-17 13:00:00 162 mm[Hg] [facility] Diastolic blood 2020-02-17 13:00:00 74 mm[Hg] [facility] S [facility] Heart rate 2020-02-17 13:00:00 69 /min [facility] Body temperature 2020-02-17 13:00:00 35.78 Terese [facility] Respiratory rate 2020-02-17 13:00:00 18 /min [facility] Oxygen saturation in 2020-02-17 13:00:00 100 /min [facility] Arterial blood by Medical Ce nter Pulse oximetry Body height 2020-02-10 11:43:00 162.6 cm [facility] Body weight 2020-02-10 11:43:00 56.2 kg [facility] BMI 2020-02-10 11:43:00 21.27 kg/m2 [facility] Procedures Procedure Date / Time Performing Clinician Source Performed POCT-GLUCOSE METER 2020-02-17 12:55:00 Ammy, Manuel Bianchi [facility] POCT-GLUCOSE METER 2020-02-17 07:48:00 Ammy, Manuel Bianchi [facility] POCT-GLUCOSE METER 2020-02-16 21:14:00 Ammy, Manuel Bianchi [facility] POCT-GLUCOSE METER 2020-02-16 16:28:00 Ammy, Manuel Bianchi [facility] POCT-GLUCOSE METER 2020-02-16 11:35:00 Ammy, Manuel Bianchi [facility] POCT-GLUCOSE METER 2020-02-16 07:34:00 Ammy, Manuel Bianchi [facility] POCT-GLUCOSE METER 2020-02-15 21:19:00 Ammy, Manuel Bianchi [facility] POCT-GLUCOSE METER 2020-02-15 15:51:00 Ammy, Manuel Bianchi [facility] POCT-GLUCOSE METER 2020-02-15 12:16:00 Ammy, Manuel Bianchi [facility] POCT-GLUCOSE METER 2020-02-15 08:01:00 Ammy, Manuel Bianchi [facility] CBC W/PLT COUNT & AUTO 2020-02-15 04:24:00 Ammy, Manuel Bianchi [facility] POCT-GLUCOSE METER 2020-02-14 21:16:00 Manuel Gimenez [facility] POCT-GLUCOSE METER 2020-02-14 15:56:00 Manuel Gimenez [facility] POCT-GLUCOSE METER 2020-02-14 13:01:00 Ammy, Manuel Bianchi [facility] POCT-GLUCOSE METER 2020-02-14 08:07:00 Ammy, Manuel Bianchi [facility] CBC W/PLT COUNT & AUTO 2020-02-14 05:43:00 Ammy, Manuelshon Bianchi [facility] POCT-GLUCOSE METER 2020-02-13 20:59:00 Ammy, Manuelshon Bianchi [facility] POCT-GLUCOSE METER 2020-02-13 15:43:00 Ammy, Manuel Bianchi [facility] POCT-GLUCOSE METER 2020-02-13 11:26:00 Manuel Gimenez [facility] POCT-GLUCOSE METER 2020-02-13 07:50:00 AmmyManuel [facility] CBC W/PLT COUNT & AUTO 2020-02-13 04:24:00 Manuel Gimenez [facility] POCT-GLUCOSE METER 2020-02-12 21:03:00 AmmyManuel [facility] POCT-GLUCOSE METER 2020-02-12 16:22:00 AmmyManuel [facility] POCT-GLUCOSE METER 2020-02-12 11:38:00 AmmyManuel [facility] COMPREHENSIVE METABOLIC 2020-02-12 08:32:00 Ammy [facility] PROTHROMBIN TIME/INR 2020-02-12 08:32:00 Manuel Gimenez [facility] POCT-GLUCOSE METER 2020-02-12 07:51:00 Ammy, Manuel Bianchi [facility] POCT-GLUCOSE METER 2020-02-11 22:19:00 [facility] POCT-GLUCOSE METER 2020-02-11 15:22:00 [facility] Manuelshon Bianchi [facility] POCT-GLUCOSE METER 2020-02-11 11:48:00 Ammy Manuel [facility] BASIC METABOLIC PANEL (7) 2020-02-11 11:16:00 Tawanna Burgos [facility] CBC (HEMOGRAM ONLY) 2020-02-11 11:16:00 Tawanna Burgos [facility] POCT-GLUCOSE METER 2020-02-11 07:23:00 AmmyManuel [facility] BASIC METABOLIC PANEL (7) 2020-02-11 07:20:00 Ammy Manuelshon souza [facility] CBC W/PLT COUNT & AUTO 2020-02-11 07:20:00 [facility] IRON, TIBC, % SAT. 2020-02-10 23:13:00 Manuel Gimenez [facility] (WITHOUT FERRITIN) [facility] VITAMIN B12 AND FOLATE 2020-02-10 23:13:00 Manuel Gimenez [facility] POCT-GLUCOSE METER 2020-02-10 22:31:00 Manuel Gimenez [facility] POCT-GLUCOSE METER 2020-02-10 18:02:00 AmmyManuel [facility] DEBRIDEMENT/I&D,WOUND 2020-02-10 14:50:00 Mague Stovallian Balta [facility] EXTREMITY LOWER [facility] SKIN GRAFT,SPLIT 2020-02-10 14:50:00 Gabriel Stovall [facility] ukes - THICKNESS-LOWER EXTREMITY Medica l Center SKIN GRAFT,SPLIT 2020-02-10 14:50:00 Giovanny Franco [facility] - THICKNESS-LOWER EXTREMITY [facility] POCT-GLUCOSE METER 2020-02-10 11:22:00 Gabriel Stovall [facility] SARS-COV2/RT-PCR ([facility] & 2020-02-06 11:36:00 Mouna Thayer I [facility] - REF LABS) [facility] HEMOGLOBIN 2020-02-06 11:36:00 Bill Fong [facility] BASIC METABOLIC PANEL (7) 2020-02-06 11:36:[address] [facility] POCT-GLUCOSE METER 2019-12-31 11:37:00 Zelda [facility] POCT-GLUCOSE METER 2019-12-31 06:57[facility] 2019-12-31 00:01[facility] 2019-12-30 16:14:00 [facility] PO[facility]SE [facility]ER 2019-12-30 12:20:00 [facility] POCT-GLUCOSE METER 2019-12-30 06:31:00 [facility] POCT-GLUCOSE METER 2019-12-29 20:16[facility]00 [facility] MET[facility] 2019-12-29 16:41:00 [facility] VENOUS DOPPLER ARM, LEFT 2019-12-29 16:30:00 Ambar Howard [facility] POCT-GLUCOSE METER 2019-12-29 11:06:00 [facility]SE [facility]ER 2019-12-29 06:16:00 [facility] CBC (HEMOGRAM ONLY) 2019-12-29 04:53:00 [facility] BASIC METABOLIC PANEL (7) 2019-12-29 04:52:00 [facility] POCT-GLUCOSE METER 2019-12-28 20:47:00 [facility] POCT-GLUCOSE METER 2019-12-28 16:22:00 [facility] POCT-GLUCOSE METER 2019-12-28 11:56:00 [facility] POCT-GLUCOSE METER 2019-12-28 06:16:00 [facility] POCT-GLUCOSE METER 2019-12-27 20:24:00 [facility] POCT-GLUCOSE METER 2019-12-27 16:08:00 [facility] POCT-GLUCOSE METER 2019-12-27 11:12:00 [facility] POCT-GLUCOSE METER 2019-12-27 06:03:00 [facility] POCT-GLUCOSE METER 2019-12-26 20:12:00 [facility] POCT-GLUCOSE METER 2019-12-26 16:02:00 [facility] CBC W/PLT COUNT & AUTO 2019-12-26 12:00:00 Ambar Howard [facility] COMPREHENSIVE METABOLIC 2019-12-26 12:00:00 Ambar Howard [facility] POCT-GLUCOSE METER 2019-12-26 11:33:00 Zelda [facility] POCT-GLUCOSE METER 2019-12-26 06:35:00 Zelda, [facility] POCT-GLUCOSE METER 2019-12-25 20:43:00 Zelda, [facility] POCT-GLUCOSE METER 2019-12-25 16:42:00 Zelda, [facility] POCT-GLUCOSE METER 2019-12-25 11:08:00 Zelda, [facility] POCT-GLUCOSE METER 2019-12-25 06:32:00 Zelda, [facility] POCT-GLUCOSE METER 2019-12-24 20:44:00 Zelda, [facility] POCT-GLUCOSE METER 2019-12-24 16:24:00 Zelda, [facility] POCT-GLUCOSE METER 2019-12-24 11:12:00 Zelda, [facility] POCT-GLUCOSE METER 2019-12-24 06:20:00 Zelda [facility] POCT-GLUCOSE METER 2019-12-23 20:33:00 Zelda, [facility] POCT-GLUCOSE METER 2019-12-23 16:48:00 Zelda, [facility] POCT-GLUCOSE METER 2019-12-23 11:31:00 Zelda, [facility] POCT-GLUCOSE METER 2019-12-23 05:58:00 Zelda, [facility] POCT-GLUCOSE METER 2019-12-22 20:29:00 Zelda, [facility] POCT-GLUCOSE METER 2019-12-22 16:10:00 Zelda, [facility] POCT-GLUCOSE METER 2019-12-22 11:33:00 Zelda, [facility] RHYTHM STRIP - SCAN 2019-12-22 10:01:02 Provider, [facility] CARDIAC CATH REPORT - 2019-12-22 10:00:44 Provider, [facility] POCT-GLUCOSE METER 2019-12-22 06:23:00 [facility] BASIC METABOLIC PANEL (7) 2019-12-22 04:37:00 [facility] CBC (HEMOGRAM ONLY) 2019-12-22 04:37[facility] 2019-12-21 20:41:00 [facility] POCT-GLUCOSE METER 2019-12-21 15:41:00 [facility] POCT-GLUCOSE METER 2019-12-21 11:31:00 [facility] POCT-GLUCOSE METER 2019-12-21 06:18:00 [facility] POCT-GLUCOSE METER 2019-12-20 20:20:00 [facility] PO[facility]COSE METER 2019-12-20 16:27:00 [facility] POCT-GLUCOSE METER 2019-12-20 12:27:00 [facility] POCT-GLUCOSE METER 2019-12-20 06:24:00 [facility] POCT-GLUCOSE METER 2019-12-19 20:57:00 [facility] POCT-GLUCOSE METER 2019-12-19 16:05:00 [facility] POCT-GLUCOSE METER 2019-12-19 12:07:00 [facility] POCT-GLUCOSE METER 2019-12-19 06:18:00 [facility] COMPREHENSIVE METABOLIC 2019-12-19 05:22:[address] [facility] CBC W/PLT COUNT & AUTO 2019-12-19 05:22:00 Pat Ndiaye [facility] MAGNESIUM 2019-12-19 05:22:00 Pat Ndiaye [facility] POCT-GLUCOSE METER 2019-12-18 20:52:00 Pat Ndiaye [facility] POCT-GLUCOSE METER 2019-12-18 16:49:00 Pat Ndiaye [facility] POCT-GLUCOSE METER 2019-12-18 11:46:00 Grover Noreen Villanueva [facility] POCT-GLUCOSE METER 2019-12-18 07:28:00 Reilly Noreen Rich [facility] BASIC METABOLIC PANEL (7) 2019-12-18 05:36:00 Ying El [facility] CBC (HEMOGRAM ONLY) 2019-12-18 05:36:00 Ying El [facility] MAGNESIUM 2019-12-18 05:36:00 Ying El [facility] POCT-GLUCOSE METER 2019-12-17 21:07:00 Noreen Grover [facility] POCT-GLUCOSE METER 2019-12-17 17:48:00 Emilee Groverhal Rich [facility] POCT-GLUCOSE METER 2019-12-17 11:38:00 Reilly Noreen Rich [facility] POCT-GLUCOSE METER 2019-12-17 07:27:00 Reilly [facility] Rich [facility] BASIC METABOLIC PANEL (7) 2019-12-17 05:13:00 Ying Eles [facility] CBC (HEMOGRAM ONLY) 2019-12-17 05:13:00 [facility] 2019-12-17 05:13:00 Colin Elsaint elizabeth hebronanna [facility] POCT-GLUCOSE METER 2019-12-16 20:51:00 Grover, [facility] POCT-GLUCOSE METER 2019-12-16 16:34:00 Reilly [facility] XR CHEST 1 VIEW 2019-12-16 14:48:00 [facility] POCT-GLUCOSE METER 2019-12-16 11:47:00 Reilly [facility] POCT-GLUCOSE METER 2019-12-16 06:50:00 Reilly [facility] BASIC METABOLIC PANEL (7) 2019-12-16 05:57:00 Ying El [facility] CBC (HEMOGRAM ONLY) 2019-12-16 05:57:00 [facility] 2019-12-16 05:57:00 Ying El [facility] POCT-GLUCOSE METER 2019-12-15 21:15:00 Reilly [facility] POCT-GLUCOSE METER 2019-12-15 16:44:00 Reilly [facility] POCT-GLUCOSE METER 2019-12-15 11:45:00 Reilly [facility] POCT-GLUCOSE METER 2019-12-15 06:58:00 [facility] BASIC METABOLIC PANEL (7) 2019-12-15 04:46:00 Ying El [facility] CBC (HEMOGRAM ONLY) 2019-12-15 04:46:00 [facility]UM 2019-12-15 04:46:00 Ying El [facility] POCT-GLUCOSE METER 2019-12-14 21:15:00 Chelsey [facility] POCT-GLUCOSE METER 2019-12-14 17:18:00 Chelsey [facility] POCT-GLUCOSE METER 2019-12-14 12:05:00 [facility] POCT-GLUCOSE METER 2019-12-14 07:51:00 Chelsey [facility] BASIC METABOLIC PANEL (7) 2019-12-14 04:29:00 Ying El [facility] CBC (HEMOGRAM ONLY) 2019-12-14 04:29:00 [facility] MAG[facility]UM 2019-12-14 04:29:00 [facility]SE [facility] 2019-12-13 21:42:00 Nikolayakilbo [facility] POCT-GLUCOSE METER 2019-12-13 16:53:00 Nikolayakilbo [facility] POCT-GLUCOSE METER 2019-12-13 11:15:00 Nikolayakilbo [facility] POCT-GLUCOSE METER 2019-12-13 07:21:00 Nikolayakilbo [facility] BASIC METABOLIC PANEL (7) 2019-12-13 04:54:00 Ying El [facility] CBC (HEMOGRAM ONLY) 2019-12-13 04:54:00 [facility]UM 2019-12-13 04:54:00 [facility] POCT-GLUCOSE METER 2019-12-12 21:10:00 Nikolayakilbo [facility] POCT-GLUCOSE METER 2019-12-12 16:50:00 Nikolayakilbo [facility] POCT-GLUCOSE METER 2019-12-12 12:44:00 [facility]AR 2019-12-12 12:11:18 Gabriel Stovall [facility] ([facility]-SPUTUM) [facility] ANAEROBIC CULTURE 2019-12-12 12:11:18 Gabriel Stovall [facility] FUNGUS CULTURE + SMEAR 2019-12-12 12:11:18 Gabriel Stovall [facility] SURGICALLY OBTAINED 2019-12-12 12:11:18 Gabriel Stovall [facility] - CULTURE + GRAM STAIN Medical Joana ter SPIN/CONCENTRATION CHARGE 2019-12-12 12:11:00 Gabriel Stovall [facility] DEBRIDEMENT/I&D,WOUND 2019-12-12 11:34:[address] [facility] SKIN GRAFT,SKIN 2019-12-12 11:34:00 Gabriel Stovall [facility] POCT-GLUCOSE METER 2019-12-12 07:54:00 Clayton Barbosa [facility] BASIC METABOLIC PANEL (7) 2019-12-12 05:19:00 Ying El [facility] CBC (HEMOGRAM ONLY) 2019-12-12 05:19:00 [facility]IUM 2019-12-12 05:19:00 [facility] POCT-GLUCOSE METER 2019-12-11 21:01:00 Suzanne Jenkins [facility] POCT-GLUCOSE METER 2019-12-11 16:41:00 Suzanne Jenkins [facility] POCT-GLUCOSE METER 2019-12-11 11:31:00 Suzanne Jenkins [facility] POCT-GLUCOSE METER 2019-12-11 07:24:00 Suzanne Jenkins [facility] BASIC METABOLIC PANEL (7) 2019-12-11 04:59:00 Ying El [facility] CBC (HEMOGRAM ONLY) 2019-12-11 04:59:00 [facility]UM 2019-12-11 04:59:00 Ying El [facility] POCT-GLUCOSE METER 2019-12-10 21:23:00 Suzanne Jenkins [facility] POCT-GLUCOSE METER 2019-12-10 16:37:00 Suzanne Jenkins [facility] POCT-GLUCOSE METER 2019-12-10 11:03:00 Suzanne Jenkins [facility] POCT-GLUCOSE METER 2019-12-10 07:33:00 Suzanne Jenkins [facility] BASIC METABOLIC PANEL (7) 2019-12-10 05:50:00 Ying El [facility] CBC (HEMOGRAM ONLY) 2019-12-10 05:50:00 Ying El [facility] MAGNESIUM 2019-12-10 05:50:00 Ying El [facility] POCT-GLUCOSE METER 2019-12-09 21:14:00 Suzanne Jenkins [facility] POCT-GLUCOSE METER 2019-12-09 17:03:00 Suzanne Jenkins [facility] POCT-GLUCOSE METER 2019-12-09 11:47:00 Suzanne Jenkins [facility] POCT-GLUCOSE METER 2019-12-09 06:52:00 Suzanne Jenkins [facility] BASIC METABOLIC PANEL (7) 2019-12-09 05:41:00 Ying El [facility] CBC (HEMOGRAM ONLY) 2019-12-09 05:41:00 Ying El [facility] MAGNESIUM 2019-12-09 05:41:00 Ying El [facility] POCT-GLUCOSE METER 2019-12-08 22:10:00 Suzanne Jenkins [facility] POCT-GLUCOSE METER 2019-12-08 16:32:00 Suzanne Jenkins [facility] POCT-GLUCOSE METER 2019-12-08 11:53:00 GregorySuzanne felix [facility] POCT-GLUCOSE METER 2019-12-08 07:57:00 GregorySuzanne felix [facility] BASIC METABOLIC PANEL (7) 2019-12-08 05:49:00 Ying El [facility] CBC (HEMOGRAM ONLY) 2019-12-08 05:49:00 Ying El [facility] MAGNESIUM 2019-12-08 05:49:00 [facility] PO[facility]UCOSE METER 2019-12-07 21:46:00 Suzanne Jenkins [facility] POCT-GLUCOSE METER 2019-12-07 17:10:00 Suzanne Jenkins [facility] BASIC METABOLIC PANEL (7) 2019-12-07 04:58:00 Ying El [facility] CBC (HEMOGRAM ONLY) 2019-12-07 04:58:00 Ying El [facility] MAGNESIUM 2019-12-07 04:58:00 [facility] PO[facility]-GLUCOSE METER 2019-12-06 21:02:00 Suzanne Jenkins [facility] POCT-GLUCOSE METER 2019-12-06 16:37:00 Suzanne Jenkins [facility] POCT-GLUCOSE METER 2019-12-06 12:06:00 GregorySuzanne felix [facility] POCT-GLUCOSE METER 2019-12-06 07:00:00 Suzanne Jenkins [facility] BASIC METABOLIC PANEL (7) 2019-12-06 04:37:00 Ying El [facility] CBC (HEMOGRAM ONLY) 2019-12-06 04:37:00 Ying El [facility] MAGNESIUM 2019-12-06 04:37:00 Ying El [facility] POCT-GLUCOSE METER 2019-12-05 21:05:00 Suzanne Jenkins [facility] POCT-GLUCOSE METER 2019-12-05 16:36:00 Suzanne Jenkins [facility] XR FOOT RIGHT 3 VIEW 2019-12-05 15:32:00 Gabriel Stovall [facility] RHYTHM STRIP - SCAN 2019-12-05 14:14:10 Errol Zepeda [facility] ANAEROBIC CULTURE 2019-12-05 13:05:00 Gabriel Stovall [facility] FUNGUS CULTURE + SMEAR 2019-12-05 13:05:00 Gabriel Stovall [facility] SURGICALLY OBTAINED 2019-12-05 13:05:00 Gabriel Stovall [facility] - CULTURE + GRAM STAIN Medical [facility] ter SPIN/CONCENTRATION CHARGE 2019-12-05 13:05:00 Gabriel Stovall [facility] AFB CULTURE + SMEAR 2019-12-05 13:05:00 Gabriel Stovall [facility] (NON-SPUTUM) [facility] TISSUE EXAM 2019-12-05 13:01:00 Gabriel Stovall [facility] POCT-GLUCOSE METER 2019-12-05 12:57:00 Suzanne Jenkins [facility] AMPUTATION,FOOT 2019-12-05 11:34:00 Gabriel Stovall [facility] DEBRIDEMENT/I&D,WOUND 2019-12-05 11:34:00 Gabriel Stovall [facility] ECG 12-LEAD 2019-12-05 09:28:13 Nader Walters [facility] POCT-GLUCOSE METER 2019-12-05 08:03:00 Suzanne Jenkins [facility] BASIC METABOLIC PANEL (7) 2019-12-05 05:40:00 Ying El [facility] CBC (HEMOGRAM ONLY) 2019-12-05 05:40:00 Ying El [facility] MAGNESIUM 2019-12-05 05:40:00 Ying El [facility] POCT-GLUCOSE METER 2019-12-04 21:06:00 Suzanne Jenkins [facility] POCT-GLUCOSE METER 2019-12-04 16:08:00 Suzanne Jenkins [facility] POCT-GLUCOSE METER 2019-12-04 11:40:00 Suzanne Jenkins [facility] POCT-GLUCOSE METER 2019-12-04 07:58:00 Suzanne Jenkins [facility] BASIC METABOLIC PANEL (7) 2019-12-04 06:30:00 Ying El [facility] CBC (HEMOGRAM ONLY) 2019-12-04 06:30:00 Ying El [facility] MAGNESIUM 2019-12-04 06:30:00 Ying El [facility] APTT 2019-12-04 06:30:00 Suzanne Jenkins [facility] PLATELET AGGREGATION: 2019-12-04 06:30:00 Mariah Figueroa [facility] DRUG EFFECT [facility] POCT-GLUCOSE METER 2019-12-03 21:12:00 Suzanne Jenkins [facility] BLOOD CULTURE 2019-12-03 18:44:00 Ying El [facility] TRANSFUSION SERVICE 2019-12-03 18:00:38 Duane, Errol [facility] REPORT - SCAN Scanning [facility] POCT-GLUCOSE METER 2019-12-03 16:50:00 Suzanne Jenkins [facility] POCT-ACT 2019-12-03 14:35:00 Suzanne Jenkins [facility] POCT-ACT 2019-12-03 13:53:00 Suzanne Jenkins [facility] PERIPHERAL ANGIOS / 2019-12-03 12:38:00 Giovanny Franco [facility] - AORTOGRAM [facility] POCT-GLUCOSE METER 2019-12-03 11:09:00 Suzanne Jenkins [facility] POCT-GLUCOSE METER 2019-12-03 08:14:00 Suzanne Jenkins [facility] BASIC METABOLIC PANEL (7) 2019-12-03 06:11:00 Ying El [facility] CBC (HEMOGRAM ONLY) 2019-12-03 06:11:00 Ying El [facility] MAGNESIUM 2019-12-03 06:11:00 Ying El [facility] APTT 2019-12-03 06:11:00 Suzanne Jenkins [facility] APTT 2019-12-02 23:35:00 Suzanne Jenkins [facility] POCT-GLUCOSE METER 2019-12-02 21:10:00 Suzanne eJnkins [facility] VANCOMYCIN LEVEL, TROUGH 2019-12-02 19:09:00 [facility] 2019-12-02 16:46:00 Suzanne Jenkins [facility] APTT 2019-12-02 16:41:00 Suzanne Jenkins [facility] POCT-GLUCOSE METER 2019-12-02 12:20:00 Suzanne Jenkins [facility] XR FOOT RIGHT 3 VIEW 2019-12-02 12:00:00 Gabriel Stovall [facility] POCT-GLUCOSE METER 2019-12-02 09:12:00 Suzanne Jenkins [facility] TISSUE EXAM 2019-12-02 08:41:00 Gabriel Stovall [facility] SURGICALLY OBTAINED 2019-12-02 08:38:26 Gabriel Stovall [facility] [place] - CULTURE + GRAM STAIN Medical Joana ter ANAEROBIC CULTURE 2019-12-02 08:38:26 Gabriel Stovall [facility] AFB CULTURE + SMEAR 2019-12-02 08:38:26 Gabriel Stovall [facility] (NON-SPUTUM) [facility] FUNGUS CULTURE + SMEAR 2019-12-02 08:38:26 Gabriel Stovall [facility] AMPUTATION,TOE 2019-12-02 07:23:00 Gabriel Stovall [facility] DEBRIDEMENT/I&D,WOUND 2019-12-02 07:23:00 Gabriel Stovall [facility] POCT-GLUCOSE METER 2019-12-02 05:34:00 Suzanne Jenkins [facility] ABORH, MANUAL 2019-12-02 01:36:00 Unique Michaud [facility] APTT 2019-12-02 01:16:00 Suzanne Jenkins [facility] BASIC METABOLIC PANEL (7) 2019-12-02 01:16:00 Ying El [facility] CBC (HEMOGRAM ONLY) 2019-12-02 01:16:00 Ying El [facility] MAGNESIUM 2019-12-02 01:16[facility] 2019-12-02 01:16:00 [facility] TYPE AND SCREEN, 2019-12-02 01:16:[address] [facility] POCT-GLUCOSE METER 2019-12-01 21:17:00 Suzanne Jenkins [facility] APTT 2019-12-01 19:36:00 Suzanne Jenkins [facility] POCT-GLUCOSE METER 2019-12-01 17:14:00 Suzanne Jenkins [facility] POCT-GLUCOSE METER 2019-12-01 12:12:00 Suzanne Jenkins [facility] SARS-COV2/RT-PCR ([facility] & 2019-12-01 12:10:00 Mariah Figueroa [facility] - REF LABS) [facility] APTT 2019-12-01 12:10:00 [facility] XR FOOT RIGHT 3 VIEW 2019-12-01 10:59:00 Gabriel Stovall [facility] ARTERIAL (TOSHIA'S W/ 2019-12-01 09:45:00 Suzanne Jenkins [facility] - DOPPLER) ONLY [facility] ARTERIAL DOPPLER LEG, 2019-12-01 09:20:00 Suzanne Jenkins [facility] RIGHT [facility] BLOOD CULTURE 2019-12-01 04:58:00 Sutaria, [facility] BLOOD CULTURE 2019-12-01 04:50:00 [facility] APTT 2019-12-01 04:50:00 [facility] COMPREHENSIVE METABOLIC 2019-12-01 04:50:00 [facility] PROTHROMBIN TIME/INR 2019-12-01 04:50:00 [facility] CBC W/PLT COUNT & AUTO 2019-12-01 04:50:00 [facility] DIFFERENTIAL [facility] C-REACTIVE PROTEIN 2019-12-01 04:50:00 [facility] L es [facility] Plan of Care Planned Activity Planned Date Details Comments Source Future Scheduled 2020-06-[address] [facility] - Test 00:00:00 (12+) [code = [facility] DEPRESSION SCREENING (12+)] Future Scheduled 2020-03-[address] [facility] Test 00:00:00 measurement [facility] (procedure) [code = 56709350] Future Scheduled 2020-02-[address] [facility] - Test 00:00:00 (#1) [code = [facility] INFLUENZA VACCINE (#1)] Future Scheduled 2018-08-[address] [facility] - Test 00:00:00 WELLNESS (YEAR 2 or Medical Center FIRST YEAR if no IPPE) [code = MEDICARE ANNUAL WELLNESS (YEAR 2 or FIRST YEAR if no IPPE)] Future Scheduled 2017-05-30 Urine screening for [facility] - Test 00:00:00 protein (procedure) Medical Center [code = 083099564] Future Scheduled 1996 SHINGLES VACCINES ([address] [facility] - Test 00:00:00 of 2) [code = Medical Center SHINGLES VACCINES (1 of 2)] Future Scheduled 1965 DTAP/TDAP/TD VACCINES [facility] Test 00:[facility]:00 (1 - Tdap) [code = Medical C enter DTAP/TDAP/TD VACCINES (1 - Tdap)] Future Scheduled 1964 HEPATITIS C SCRE[facility]ING [facility] Test 00:[facility]:00 [code = HEPATITIS C Medical Center SCREENING] Future Scheduled 1956 DIABETIC EYE EXAM [facility] - Test 00:00:00 [code = DIABETIC EYE Medical Center EXAM] Future Scheduled [address] [facility] - Test 00:00:00 examination Medical Center (regime/therapy) [code = 703389670] Future Scheduled [address] [facility] [facility] - Test 00:00:00 malignant neoplasm of [facility] breast (procedure) [code = 787148327] Future Scheduled [address] [facility] - Test 00:00:00 malignant neoplasm of [facility] colon (procedure) [code = 985102627] Encounters Start End Encounter Admission Attending Care Care Encounter Source Date/Time Date/Time Type Type Clinicians Facility Department ID 2020-07-07 2020-07-07 Telephone JESSEE Riggs 1.2.840.114 [id number] 00:00:00 00:00:00 Vanesa Wiggins [id number] [place] 4.2.7.2.686 Feliz [id number] [address] 2020-06-07 2020-06-07 Office HUANG Stovall 1.2.840.114 [id number] 13:56:25 16:57:48 Visit Gabriel Everett AMBULATOR [id number] Y 0.2.7.2.686 [id number] 2020-05-07 2020-05-07 Orders Doctor KHAN 1.2.840.114 [id number] 00:00:00 00:00:00 Only Unassigned, PATTY 350.1.13.10 [place] [facility] 4.2.7.2.686 [id number] 2020-04-05 2020-04-05 Office HUANG Stovall 1.2.840.114 [id number] 14:32:01 15:37:58 Visit Gabriel Everett AMBULATOR 350.1.13.21 Y 0.2.7.2.686 [id number] 825 2020-04-05 2020-04-05 Office HUANG Franco 1.2.840.114 [id number] 14:31:13 15:37:49 Visit Giovanny AMBULATOR 350.1.13.21 Lionel Y 0.2.7.2.686 [id number] 2020-03-15 2020-03-15 Office DoloresHUANG mcguire 1.2.840.114 [id number] 15:50:40 16:41:06 Visit Gabriel Everett AMBULATOR 350.1.13.21 Y 0.2.7.2.686 [id number] 825 2020-02-26 2020-02-26 Office HUANG Stovall 1.2.840.114 [id number] 14:43:47 15:34:04 Visit Gabriel Everett AMBULATOR 350.1.13.21 Y 0.2.7.2.686 [id number] 825 2020-01-28 2020-01-28 Office HUANG Stovall 1.2.840.114 [id number] 10:21:38 10:36:38 Visit Gabriel Everett AMBULATOR 350.1.13.21 Y 0.2.7.2.686 [id number] 825 2020-01-21 2020-01-21 Office Jason Cortez BCJeri 1.2.840.114 [id number] 11:23:24 12:51:12 Visit AMBULATOR 350.1.13.21 Y 0.2.7.2.686 [id number] 2019-12-15 2019-12-15 Orders Doctor BILL 1.2.840.114 [id number] 00:00:00 00:00:00 Only Unassigned, PATTY 350.1.13.10 [place] [facility] 4.2.7.2.686 [id number] 2019-11-21 2019-11-21 Telemedici Oneil [facility] 1.2.840.114 [id number] 08:57:41 09:37:41 ne Visit Vanesa Wiggins 350.1.13.10 [place] 4.2.7.2.686 Professio [id number] nal 231 [facility] 2019-10-30 2019-10-30 Telephone Oneil [facility] 1.2.840.114 [id number] 00:00:00 00:00:00 Vanesa Wiggins 350.1.13.10 [place] 4.2.7.2.686 Professio [id number] [address] Results Test Description Test Time Test Comments Results Result Comments Source POC-Glucose meter 2020-02-17 13:05:00 Test Item Value Reference Range Interpretation Comme nts POC-Glucose Meter (test code = 200 mg/dL 70-110 H : TESTED AT [facility] [address] [id number], [facility] 30: Corporate Affairs Manager/Techni herson ID = [id number] for CAMILA CHU Susan Lab Interpretation (test code = Abnormal 49182-9) [facility] [id number] 13:05:00 Test Item Value Reference Range Interpretation Comments POC-GLUCOSE METER 200 mg/dL 70-110 H : TESTED A T [facility] [address] (BEAKER) (test code = [facility], 1538) 12396: Corporate Affairs Manager/Techni herson ID = [id number] for ARISTEO QUEEN POCT-GLUCOSE [id number] 07:59:00 Test Item Value Reference Range Interpretation Comments POC-GLUCOSE METER 191 mg/dL 70-110 H : TESTED A T [facility] [address] (BEAKER) (test code = [facility], 1538) 43934: Corporate Affairs Manager/Techni herson ID = [id number] for ARISTEO QUEEN POCT-GLUCOSE [id number] 21:25:00 Test Item Value Reference Range Interpretation Comments POC-GLUCOSE METER 287 mg/dL 70-110 H : TESTED A T [facility] [address] (BEAKER) (test code = [facility], [facility]) 34043: Corporate Affairs Manager/Techni herson ID = [id number] for ANNE FUENTES POCT-GLUCOSE [id number] 16:39:00 Test Item Value Reference Range Interpretation Comments POC-GLUCOSE METER 232 mg/dL 70-110 H : TESTED A T [facility] [address] (BEAKER) (test code = [facility], [facility]) 64864: Corporate Affairs Manager/Techni herson ID = [id number] for ARISTEO QUEEN POCT-GLUCOSE [id number] 11:46:00 Test Item Value Reference Range Interpretation Comments POC-GLUCOSE METER 197 mg/dL 70-110 H : TESTED A T [facility] [address] (BEAKER) (test code = [facility], [facility]) 78995: Corporate Affairs Manager/Techni herson ID = [id number] for ARISTEO QUEEN POCT-GLUCOSE [id number] 07:45:00 Test Item Value Reference Range Interpretation Comments POC-GLUCOSE METER 119 mg/dL 70-110 H : TESTED A T [facility] [address] (BEAKER) (test code = [facility], [facility]) 98925: Corporate Affairs Manager/Techni herson ID = [id number] for ARISTEO QUEEN POCT-GLUCOSE [id number] 21:30:00 Test Item Value Reference Range Interpretation Comments POC-GLUCOSE METER 165 mg/dL 70-110 H : TESTED A T [facility] [address] (BEAKER) (test code = [facility], [facility]) 56540: Corporate Affairs Manager/Techni herson ID = [id number] for DARWIN JACKSONW POCT-GLUCOSE [id number] 16:02:00 Test Item Value Reference Range Interpretation Comments POC-GLUCOSE METER 162 mg/dL 70-110 H : TESTED A T [facility] [address] (BEAKER) (test code = [facility], [facility]) 76691: Corporate Affairs Manager/Techni herson ID = [id number] for rhys Tarah POCT-GLUCOSE [id number] 12:27:00 Test Item Value Reference Range Interpretation Comments POC-GLUCOSE METER 190 mg/dL 70-110 H : TESTED A T [facility] [address] (BEAKER) (test code = [place], 1538) 86992: Corporate Affairs Manager/Techni herson ID = [id number] for Tarah Schwab POCT-GLUCOSE [id number] 08:12:00 Test Item Value Reference Range Interpretation Comments POC-GLUCOSE METER 160 mg/dL 70-110 H : TESTED [facility] T [facility] [address] (BEAKER) (test code = [place], 1538) [address]: Corporate Affairs Manager/Techni herson ID = [id number] for Tarah Schwab CBC with platelet count + automated [id number] 04:55:00 Test Item Value Reference Range Interpretation Comments WBC (test code = 6690-2) 11.1 See_Comment H [A utomated message] The system [employer] generated this result transmitted ref erence range: 3.5 - 10 .5 K/L. The refe rence range was not u sed to interpret this result as normal/abnor mal. RBC (test code = 789-8) 4.12 See_Comment [Au tomated message] The system [employer] generated this result transmitted ref erence range: 3.93 - 5 .22 M/L. The refe rence range was not u sed to interpret this result as normal/abnor mal. MCHC (test code = 786-4) 31.8 See_Comment L [A utomated message] The system [employer] generated this result transmitted ref erence range: 32.2 - 3 5.5 GM/DL. The refe rence range was not u sed to interpret this result as normal/abnor mal. Hematocrit (test code = 36.2 % 34.1-44.9 4544-3) MCV (test code = 787-2) 87.9 fL 79.4-94.8 MCH (test code = 785-6) 27.9 pg 25.6-32.2 RDW (test code = 788-0) 14.2 % 11.7-14.4 Platelets (test code = 298 See_Comment [Aut omated message] 777-3) The system [employer] generated this result transmitted ref erence range: 150 - 45 0 K/CU MM. The referen ce range was not u sed to interpret this result as normal/abnor mal. MPV (test code = 9.2 fL 9.4-12.3 L 83590-2) nRBC (test code = 413) 0 See_Comment [Aut omated message] The system [employer] generated this result transmitted ref erence range: 0 - 0 /1 00 WBC. The refere nce range was not u sed to interpret this result as normal/abnor mal. % Neutros (test code = 51 % 429) % Lymphs (test code = 38 % 430) % Monos (test code = 7 % 431) % Eos (test code = 432) 4 % % Baso (test code = 437) 0 % # Neutros (test code = 5.63 See_Comment [Aut omated message] 670) The system [employer] generated this result transmitted ref erence range: 1.56 - 6 .13 K/L. The refe rence range was not u sed to interpret this result as normal/abnor mal. # Lymphs (test code = 4.22 See_Comment H [Auto mated message] 414) The system [employer] generated this result transmitted ref erence range: 1.18 - 3 .74 K/L. The refe rence range was not u sed to interpret this result as normal/abnor mal. # Monos (test code = 0.76 See_Comment H [Autom ated message] 415) The system [employer] generated this result transmitted ref erence range: 0.24 - 0 .36 K/L. The refe rence range was not u sed to interpret this result as normal/abnor mal. # Eos (test code = 416) 0.39 See_Comment H [Au tomated message] The system [employer] generated this result transmitted ref erence range: 0.04 - 0 .36 K/L. The refe rence range was not u sed to interpret this result as normal/abnor mal. # Baso (test code = 417) 0.03 See_Comment [A utomated message] The system [employer] generated this result transmitted ref erence range: 0.01 - 0 .08 K/L. The refe rence range was not u sed to interpret this result as normal/abnor mal. Immature 0 % 0-1 Granulocytes-Relative (test code = 2801) Lab Interpretation (test Abnormal code = 75951-4) [facility] W/PLT COUNT & AUTO [id number] 04:55:00 Test Item Value Reference Range Interpretation [...] PERCENT (BEAKER) (test code = 2801) POCT-GLUCOSE [id number] 21:28:00 Test Item Value Reference Range Interpretation Comments POC-GLUCOSE METER 217 mg/dL 70-110 H : TESTED A T [facility] [address] (BEAKER) (test code = [facility], [facility]) 92792: Corporate Affairs Manager/Techni herson ID = [id number] for AN ANNE MCNAMARA POCT-GLUCOSE [id number] 16:08:00 Test Item Value Reference Range Interpretation Comments POC-GLUCOSE METER 140 mg/dL 70-110 H : TESTED A T [facility] [address] (BEAKER) (test code = [facility], 153) 11484: Corporate Affairs Manager/Techni herson ID = [id number] for Tarah Schwab POCT-GLUCOSE [id number] 13:12:00 Test Item Value Reference Range Interpretation Comments POC-GLUCOSE METER 218 mg/dL 70-110 H : TESTED A T [facility] [address] (BEAKER) (test code = [facility], 1538) 27312: Corporate Affairs Manager/Techni herson ID = [id number] for Tarah Schwab POCT-GLUCOSE [id number] 08:19:00 Test Item Value Reference Range Interpretation Comments POC-GLUCOSE METER 246 mg/dL 70-110 H : TESTED A T [facility] [address] (BEAKER) (test code = [facility], 153) 94544: Corporate Affairs Manager/Techni herson ID = [id number] for Jennifer Schwabfer CBC W/PLT COUNT & AUTO [id number] 06:06:00 Test Item Value Reference Range Interpretation [...] PERCENT (BEAKER) (test code = 2801) POCT-GLUCOSE [id number] 21:12:00 Test Item Value Reference Range Interpretation Comments POC-GLUCOSE METER 186 mg/dL 70-110 H : TESTED Bo Arthur [facility] [address] (BEAKER) (test code = [place], 1538) [address]: Corporate Affairs Manager/Techni herson ID = [id number] for NILDA LLAMAS POCT-GLUCOSE [id number] 15:54:00 Test Item Value Reference Range Interpretation Comments POC-GLUCOSE METER 185 mg/dL 70-110 H : TESTED A T [facility] [address] (BEAKER) ([facility] = [facility], 1538) 55904: Corporate Affairs Manager/Techni herson ID = [id number] for GONZÁLEZ JC POCT-GLUCOSE [id number] 11:38:00 Test Item Value Reference Range Interpretation Comments POC-GLUCOSE METER 214 mg/dL 70-110 H : TESTED A T [facility] [address] (BEAKER) (test code = [facility], 1538) 98349: Corporate Affairs Manager/Techni herson ID = [id number] for GONZÁLEZ JC POCT-GLUCOSE [id number] 08:01:00 Test Item Value Reference Range Interpretation Comments POC-GLUCOSE METER 148 mg/dL 70-110 H : TESTED A T [facility] [address] (BEAKER) (test code = [facility], 1538) 98630: Corporate Affairs Manager/Techni herson ID = [id number] for GONZÁLEZ JC CBC W/PLT COUNT & AUTO [id number] 04:50:00 Test Item Value Reference Range Interpretation [...] PERCENT (BEAKER) (test code = 2801) POCT-GLUCOSE [id number] 21:14:00 Test Item Value Reference Range Interpretation Comments POC-GLUCOSE METER 192 mg/dL 70-110 H : TESTED A T [facility] [address] (BEAKER) (test code = [facility], 153) 11848: Corporate Affairs Manager/Techni herson ID = [id number] for CAIT VELA POCT-GLUCOSE [id number] 16:33:00 Test Item Value Reference Range Interpretation Comments POC-GLUCOSE METER 141 mg/dL 70-110 H : TESTED A T [facility] [address] (BEAKER) (test code = [facility], 1538) 05016: Corporate Affairs Manager/Techni herson ID = [id number] for ARISTEO QUEEN POCT-GLUCOSE [id number] 11:49:00 Test Item Value Reference Range Interpretation Comments POC-GLUCOSE METER 134 mg/dL 70-110 H : TESTED A T [facility] [address] (BEAKER) (test code = [facility], 1538) 22044: Corporate Affairs Manager/Techni herson ID = [id number] for ARISTEO QUEEN Prothrombin time/[id number] 09:36:00 Test Item Value Reference Interpretation Comments Range Protime (test code = 14.1 See_Comment [Autom ated 5902-2) message] The system which generated this result transmitted reference range : 11.9 - 14.2 seconds. The reference range was not used to interpret this result as normal/abnormal . INR (test code = 1.12 See_Comment [Automated 6301-6) message] The system which generated this result transmitted reference range : <=5.90. The reference range was not used to interpret this result as normal/abnormal . BASIA (test code = Effective 11/13/2018: BASIA) PT Reference Range ChangeNew: 11.9-14.2 Previous: 11.7-14.7 RECOMMENDED COUMADIN/WARFARIN INR THERAPY RANGESSTANDARD DOSE: 2.0-3.0 Includes: PROPHYLAXIS for venous thrombosis, systemic embolization; TREATMENT for venous thrombosis and/or pulmonary embolus.HIGH RISK: Target INR is 2.5-3.5 for patients wiht mechanical heart valves. Lab Interpretation Normal (test code = 23363-8) [facility][id number] 09:36:00 Test Item Value Reference Range Interpretation [...] Range Interpretation Comments Protein, Total (test 6.5 See_Comment [Autom ated code = 2885-2) message] The system which generated this result transmit nicole reference range : 6.0 - 8.3 gm/dL . The reference range was not u sed to interpret th is result as normal/abnormal . Albumin (test code = 3.3 g/dL 3.5-5 L 96599-9) Alkaline Phosphatase 91 U/L 40-150 (test code = 6768-6) Total Bilirubin (test 0.8 mg/dL 0.2-1.2 code = 1974-2) Sodium (test code = 136 meq/L 211-727 9885-2) Potassium (test code 4.1 meq/L 3.5-5.1 = 2823-3) Chloride (test code = 105 meq/L 98-107 2075-0) CO2 (test code = 24 meq/L 22-29 2028-9) BUN (test code = 12 mg/dL 7-21 3094-0) Creatinine (test code 0.73 mg/dL 0.57-1.25 = 2160-0) Glucose (test code = 125 mg/dL 70-105 H 2345-7) Calcium (test code = 8.3 mg/dL 8.4-10.2 L 99931-4) AST (test code = 24 U/L 5-34 1920-8) ALT (test code = 22 U/L 6-55 1742-6) EGFR (test code = 78 mL/min/1.73 [place] [address]-7) NOT ACCURATE CREATININE CLEARANCE IN PREDICTING GLOMERULAR FILTRATION RATE . ESTIMATED GFR I S NOT APPLICABLE FOR DIALYSIS PATIEN BASIA (test code = BASIA) Corporate Affairs Manager ID - [id number] Lab Interpretation Abnormal (test code = 08765-7) [facility] [id number] 09:32:00 Test Item Value Reference Range Interpretation [...] 347) EGFR (BEAKER) (test 78 mL/min/1.73 ESTIMA NICOLE GFR IS code = 1092) sq m NOT ACCURATE CREATININE CLEARANCE IN PREDICTING GLOMERULAR FILTRATION RATE . ESTIMATED GFR I S NOT APPLICABLE FOR DIALYSIS PATIEN TS. Corporate Affairs Manager ID - NTPPOCT-GLUCOSE [id number] 08:02:00 Test Item Value Reference Range Interpretation Comments POC-GLUCOSE METER 122 mg/dL 70-110 H : TESTED A T [facility] 6720 (BEAKER) (test code = [facility], 153) 13194: Corporate Affairs Manager/Techni herson ID = [id number] for ARISTEO QUEEN POCT-GLUCOSE [id number] 22:30:00 Test Item Value Reference Range Interpretation Comments POC-GLUCOSE METER 122 mg/dL 70-110 H : TESTED A T [facility] 6720 (BEAKER) (test code = [facility], 153) 75869: Corporate Affairs Manager/Techni herson ID = [id number] for RE MARILU JORDAN POCT-GLUCOSE [id number] 15:33:00 Test Item Value Reference Range Interpretation Comments POC-GLUCOSE METER 200 mg/dL 70-110 H : TESTED A T [facility] 6720 (BEAKER) (test code = [facility], 153) 23360: Corporate Affairs Manager/Techni herson ID = [id number] for ARISTEO QUEEN Basic Metabolic [id number] 12:06:00 Test Item Value Reference Range Interpretation Comments Sodium (test code = 137 meq/L 417-062 0965-2) Potassium (test code = 3.9 meq/L 3.5-5.1 2823-3) Chloride (test code = 105 meq/L 98-107 2075-0) CO2 (test code = 25 meq/L 22-29 2028-9) BUN (test code = 10 mg/dL 7-21 3094-0) Creatinine (test code 0.71 mg/dL 0.57-1.25 = 2160-0) Glucose (test code = 121 mg/dL 70-105 H 2345-7) Calcium (test code = 8.4 mg/dL 8.4-10.2 32751-7) EGFR (test code = 81 mL/min/1.73 [place] [address]-5) NOT ACCURATE CREATININE CLEARANCE IN PREDICTING GLOMERULAR FILTRATION RATE . ESTIMATED GFR I S NOT APPLICABLE FOR DIALYSIS PATIENTS. BASIA (test code = BASIA) Corporate Affairs Manager ID - JORGE ALBERTO C Lab Interpretation Abnormal (test code = 41118-6) [facility] [id number] 12:06:00 Test Item Value Reference Range Interpretation Comments SODIUM (BEAKER) 137 meq/L 136-145 (test code = 381) POTASSIUM (BEAKER) 3.9 meq/L 3.5-5.1 (test code = 379) CHLORIDE (BEAKER) 105 meq/L 98-107 (test code = 382) CO2 (BEAKER) (test 25 meq/L -29 code = 355) BLOOD UREA NITROGEN 10 mg/dL 7-21 (BEAKER) (test code = 354) CREATININE (BEAKER) 0.71 mg/dL 0.57-1.25 (test code = 358) GLUCOSE RANDOM 121 mg/dL 70-105 H (BEAKER) (test code = 652) CALCIUM (BEAKER) 8.4 mg/dL 8.4-10.2 (test code = 697) EGFR (BEAKER) (test 81 mL/min/1.73 ESTIMA NICOLE GFR IS code = 1092) sq m NOT ACCURATE CREATININE CLEARANCE IN PREDICTING GLOMERULAR FILTRATION RATE . ESTIMATED GFR I S NOT APPLICABLE FOR DIALYSIS PATIEN TS. Corporate Affairs Manager ID - JUN CPOCT-GLUCOSE [id number] 11:59:00 Test Item Value Reference Range Interpretation Comments POC-GLUCOSE METER 129 mg/dL 70-110 H : TESTED A T [facility] 67[facility] (BEAKER) (test code = [place], 1538) [address]: Corporate Affairs Manager/Techni herson ID = [id number] for ARISTEO QUEEN CBC (Hemogram only)2020-02-11 11:51:00 Test Item Value Reference Range Interpretation Comments WBC (test code = 6690-2) 6.2 See_Comment [A utomated message] The system [employer] generated this result transmitted ref erence range: 3.5 - 10 .5 K/L. The refe rence range was not u sed to interpret this result as normal/abnor mal. RBC (test code = 789-8) 3.90 See_Comment L [Au tomated message] The system [employer] generated this result transmitted ref erence range: 3.93 - 5 .22 M/L. The refe rence range was not u sed to interpret this result as normal/abnor mal. MCHC (test code = 786-4) 32.4 See_Comment L [A utomated message] The system [employer] generated this result transmitted ref erence range: 32.2 - 3 5.5 GM/DL. The refe rence range was not u sed to interpret this result as normal/abnor mal. Hematocrit (test code = 34.3 % 34.1-44.9 4544-3) MCV (test code = 787-2) 87.9 fL 79.4-94.8 MCH (test code = 785-6) 28.5 pg 25.6-32.2 RDW (test code = 788-0) 14.7 % 11.7-14.4 H Platelets (test code = 262 See_Comment [Aut omated message] 777-3) The system [employer] generated this result transmitted ref erence range: 150 - 45 0 K/CU MM. The referen ce range was not u sed to interpret this result as normal/abnor mal. MPV (test code = 9.8 fL 9.4-12.3 05780-5) nRBC (test code = 413) 0 See_Comment [Aut omated message] The system [employer] generated this result transmitted ref erence range: 0 - 0 /1 00 WBC. The refere nce range was not u sed to interpret this result as normal/abnor mal. Lab Interpretation (test Abnormal code = 44515-2) [facility] (HEMOGRAM ONLY)2020-02-11 11:51:00 Test Item Value Reference [...] 0-0 (BEAKER) (test code = 413) POCT-GLUCOSE [id number] 11:26:00 Test Item Value Reference Range Interpretation Comments POC-GLUCOSE METER 138 mg/dL 70-110 H : TESTED A T [facility] 6720 (BEAKER) (test code = [place], 1538) 20072: Corporate Affairs Manager/Techni herson ID = [id number] for AN ANNE MCNAMARA BASIC METABOLIC [id number] 08:02:00 Test Item Value Reference Range Interpretation [...] 697) EGFR (BEAKER) (test 78 mL/min/1.73 ESTIMA NICOLE GFR IS code = 1092) sq m NOT ACCURATE CREATININE CLEARANCE IN PREDICTING GLOMERULAR FILTRATION RATE . ESTIMATED GFR I S NOT APPLICABLE FOR DIALYSIS PATIEN TS. Corporate Affairs Manager ID - JORGE ALBERTO CCBC W/PLT COUNT & AUTO [id number] 08:00:00 Test Item Value Reference Range Interpretation [...] PERCENT (BEAKER) (test code = 2801) POCT-GLUCOSE [id number] 07:57:00 Test Item Value Reference Range Interpretation Comments POC-GLUCOSE METER 100 mg/dL 70-110 : TESTED A T [facility] 67[facility] (BEAKER) (test code = [place], 1538) 0[address]: Corporate Affairs Manager/Techni herson ID = [id number] for ARISTEO QUEEN Vitamin B12 and [id number] 04:11:00 Test Item Value Reference Range Interpretation Comments Vitamin B12 (test 521 pg/mL 213-816 code = 2132-9) Folate (test code = 18.00 ng/mL See_Comment [Automa nicole 2284-8) message] The system which generated this result transmit nicole reference range : >=7.00. The reference range was not used to interpret this result as normal/abnormal . BASIA (test code = BASIA) Corporate Affairs Manager ID - [id number] Lab Interpretation Normal (test code = 73761-2) [facility] AND [id number] 04:11:00 Test Item Value Reference Range Interpretation Comments VITAMIN B12 (BEAKER) (test code = 521 pg/mL 213-816 774) FOLATE (BEAKER) (test code = 362) 18.00 ng/mL >=7.00 Corporate Affairs Manager ID - Betsyn, TIBC, % sat. (without ferritin)2020-02-10 23:57:00 Test Item Value Reference Range Interpretation Comments Iron (test code = 2498-4) 24.0 ug/dL 40-160 L TIBC (test code = 2500-7) 253 ug/dL 250-450 Iron % Saturation (test 9 % 20-55 L code = 2502-3) BASIA (test code = BASIA) Corporate Affairs Manager ID - FARHAT L Lab Interpretation (test Abnormal code = 64839-7) [facility], TIBC, % SAT. (WITHOUT FERRITIN)2020-02-10 23:57:00 Test Item Value Reference Range Interpretation Comments IRON (BEAKER) (test code = 547) 24.0 ug/dL 40.0-160.0 L TOTAL IRON BINDING CAPACITY 253 ug/dL 250-450 (BEAKER) (test code = 769) IRON % SATURATION (2) (BEAKER) 9 % 20-55 L (test code = 2590) Corporate Affairs Manager ID - FARHAT LPOCT-GLUCOSE [id number] 18:15:00 Test Item Value Reference Range Interpretation Comments POC-GLUCOSE METER 143 mg/dL 70-110 H : TESTED A T [facility] 6720 (BEAKER) (test code = [facility], 1538) 62200: Corporate Affairs Manager/Techni herson ID = [id number] for DEMOND REYES POCT-GLUCOSE [id number] 11:36:00 Test Item Value Reference Range Interpretation Comments POC-GLUCOSE METER 181 mg/dL 70-110 H : TESTED A T [facility] 6720 (BEAKER) (test code = [facility], 1538) 24210: Corporate Affairs Manager/Techni herson ID = [id number] for JEANINE RIOJAS SARS-CoV2/RT-PCR ([facility])2020-02-07 12:36:00 Test Item Value Reference Range Interpretation Comments SARS-COV2/RT-PCR Negative Not Detected, (test code = Negative, See 455[address]-0) external report for linked test SARS-COV-2 [facility] PERFORM[facility] (test code = 48383-5) BASIA (test code = Negative result for [...] of the Act. Fact Sheet for Healthcare Providers:https://www.[employer]id[employer]/sites/default/f jg/product/documents/F act_Sheet_HC_Providers_L flc_RVNX-YtS-9.pdf Fact Sheet for Healthcare Patients:https://www.TrueSpan/sites/default/fi les/product/documents/Fa ct_Sheet_Patients_Lyra_S ARS-CoV-2.pdf Performing Laboratory:[facility] [place] [address] [facility])2020-02-07 12:36:00 Test Item Value Reference Range Interpretation Comments SARS-COV2/RT-PCR (test Negative Not Detected, Negative, code = 3859711) See external report for linked test SARS-COV-[address] [facility] (test code = 5299618) Negative result for this test determines that [...] 564(g) of the Act.Fact Sheet for Healthcare Providers:https://www.XDN/3[employer] Technologiesidel.com/sites/default/files/product/documents/Fact_Shee j_GP_Uonibxbis_Kqzd_WSZO-OpR-4.pdfFact Sheet for Healthcare Patients:https://www.XDN/[employer] Technologiesidel.com/sites/default/files/product/ documents/Esln_Bhtvs_Chfsurwx_Hoef_IAMS-XeU-6.pdfPerforming Laboratory:[facility], [place] [address]TMXWL METABOLIC PANEL 2020-02-06 12:10:00 Test Item Value [...] 697) EGFR (BEAKER) (test 75 mL/min/1.73 ESTIMA NICOLE GFR IS code = 1092) sq m NOT ACCURATE CREATININE CLEARANCE IN PREDICTING GLOMERULAR FILTRATION RATE . ESTIMATED GFR I S NOT APPLICABLE FOR DIALYSIS PATIEN TS. Corporate Affairs Manager ID - [id number] 11:50:00 Test Item Value Reference Range Interpretation Comments Hemoglobin (test code 12.0 See_Comment [Auto mated = 786-4) message] The system which generated this result transmit nicole reference range : 11.2 - 15.7 GM/ DL. The reference range was not u sed to interpret th is result as normal/abnormal . BASIA (test code = BASIA) Corporate Affairs Manager ID - [id number] Lab Interpretation Normal (test code = 82006-9) [facility]2020-08-21 11:50:00 Test Item Value Reference Range Interpretation Comments HEMOGLOBIN (BEAKER) (test code = 12.0 GM/DL 11.2-15.7 410) Corporate Affairs Manager ID - [id number] culture + smear (non-sputum)2020-01-26 09:25:00 Test Item Value Reference Range Interpretation Comments Result (test code = No acid-fast bacilli 6463-4) isolated in 42 days AFB Smear (test code = No acid fast bacilli 31368-6) seen [facility] + SMEAR (NON-SPUTUM)2020-01-26 09:25:00 Test Item [...] code = 994) seen Fungus culture + [id number] 15:27:00 Test Item Value Reference Range Interpretation Comments Result (test code = No fungus isolated in 6463-4) 28 days Fungus Smear (test <1+ budding yeast code = 1406) [facility] + [id number] 15:27:00 Test Item Value Reference Range Interpretation Comments CULTURE (BEAKER) (test No fungus isolated in code = 1095) 28 days FUNGUS SMEAR (BEAKER) <1+ budding yeast (test code = 1406) FUNGUS CULTURE + [id number] 16:04:00 Test Item Value Reference Range Interpretation Comments CULTURE (BEAKER) (test No fungus isolated in code = 1095) 28 days FUNGUS SMEAR (BEAKER) No fungi seen (test code = 1406) FUNGUS CULTURE + [id number] 16:21:00 Test Item Value Reference Range Interpretation Comments CULTURE (BEAKER) (test No fungus isolated in code = 1095) 28 days FUNGUS SMEAR (BEAKER) No fungi seen (test code = 1406) POCT-GLUCOSE [id number] 11:49:00 Test Item Value Reference Range Interpretation Comments POC-GLUCOSE METER 94 mg/dL 70-110 : TESTED A T [facility] 7200 (BEAKER) (test code = [place], 1538) [facility] 7703 0: Corporate Affairs Manager/Techni herson ID = [id number] for CASEY RACHELLE POWELL FRAN POCT-GLUCOSE [id number] 07:08:00 Test Item Value Reference Range Interpretation Comments POC-GLUCOSE METER 87 mg/dL 70-110 : TESTED A T [facility] 7200 (BEAKER) (test code = [place] [facility] [facility] [facility], 1538) [place] [address] 0: Corporate Affairs Manager/Techni herson ID = [id number] for POLLO CABALLERO POCT-GLUCOSE [id number] 00:12:00 Test Item Value Reference Range Interpretation Comments POC-GLUCOSE METER 111 mg/dL 70-110 H : TESTED A T [facility]200 (BEAKER) (test code [place] [facility] [place] [facility], = 1538) [place] [address] 0: Corporate Affairs Manager/Techni herson ID = [id number] for POLLO CABALLERO POCT-GLUCOSE [id number] 16:26:00 Test Item Value Reference Range Interpretation Comments POC-GLUCOSE METER 146 mg/dL 70-110 H : TESTED A T [facility] (BEAKER) (test code [place] [facility] [place] [facility], = 1538) [place] [address] 0: Corporate Affairs Manager/Techni herson ID = [id number] for RACHELLE GRAY PV, VENOUS DOPPLER ARM, [id number] 13:49:00Reason for exam:->LUE pain and nodule, r/o [...] Berg Verified Date/Time: 12/30/2019 13:49:05 Reading Location: [facility] C013Y CT Body Reading RoomAddendum EndsFINAL REPORT Doppler [...] in the left lower extremity. Signed: Deann Bergort Verified Date/Time: 12/29/2019 18:22:22 Reading Location: [facility] C013W Consult Reading Room POCT-GLUCOSE [id number] 12:31:00 Test Item Value Reference Range Interpretation Comments POC-GLUCOSE METER 122 mg/dL 70-110 H : TESTED A T [facility] (BEAKER) (test code [place] [facility] A, = 1538) [place] [address] 0: Corporate Affairs Manager/Techni herson ID = [id number] for MAST JAUN CAGLE POCT-GLUCOSE [id number] 06:42:00 Test Item Value Reference Range Interpretation Comments POC-GLUCOSE METER 96 mg/dL 70-110 : TESTED A T [facility] (BEAKER) (test code = [place] [facility], 1538) [place] [address] 0: Corporate Affairs Manager/Techni herson ID = [id number] for JARD ERDANICARAMIRO POCT-GLUCOSE [id number] 20:26:00 Test Item Value Reference Range Interpretation Comments POC-GLUCOSE METER 164 mg/dL 70-110 H : TESTED A T [facility]200 (BEAKER) (test code [place] [facility] A, = 1538) [place] [address] 0: Corporate Affairs Manager/Techni herson ID = [id number] for POLLO CABALLERO Venous doppler arm, [id number] 18:22:00Interface, External Ris In - 12/30/2019 1:51 [...] MDReport Verified Date/Time: 12/30/2019 13:49:05 Reading Location: [facility] C013Y CT Body Reading RoomAddendum EndsFINAL REPORT Doppler [...] MDReport Verified Date/Time: 12/29/2019 18:22:22 Reading Location: [address] Consult Reading Room [facility] [id number] 16:59:00 Test Item Value Reference Range Interpretation Comments POC-GLUCOSE METER 199 mg/dL 70-110 H : TESTED A T [facility]200 (BEAKER) (test code [place] [facility] A, = 1538) [place] [address] 0: Corporate Affairs Manager/Techni herson ID = [id number] for OMIW SHANNAN, SYRIETA POCT-GLUCOSE [id number] 11:17:00 Test Item Value Reference Range Interpretation Comments POC-GLUCOSE METER 113 mg/dL 70-110 H : TESTED A T [facility]200 (BEAKER) (test code [place] [facility] A, = 1538) [place] [address] 0: Corporate Affairs Manager/Techni herson ID = [id number] for OMIW SHANNAN, SYRIETA POCT-GLUCOSE [id number] 06:28:00 Test Item Value Reference Range Interpretation Comments POC-GLUCOSE METER 107 mg/dL 70-110 : TESTED A T [facility]200 (BEAKER) (test code [place] [facility] A, = 1538) [place] [address] 0: Corporate Affairs Manager/Techni herson ID = [id number] for ROSY FAUST BASIC METABOLIC [id number] 05:30:00 Test Item Value Reference Range Interpretation [...] 9.4-12.3 L (test code = 754) POCT-GLUCOSE [id number] 20:59:00 Test Item Value Reference Range Interpretation Comments POC-GLUCOSE METER 173 mg/dL 70-110 H : TESTED A T [facility]200 (BEAKER) (test code MADALYN REYES A, = 1538) [place] 7[address] 0: Corporate Affairs Manager/Techni herson ID = [id number] for BENNY , ROSY POCT-GLUCOSE [id number] 16:41:00 Test Item Value Reference Range Interpretation Comments POC-GLUCOSE METER 151 mg/dL 70-110 H : TESTED A T [facility]200 (BEAKER) (test code [place] [facility] A, = 1538) [place] [address] 0: Corporate Affairs Manager/Techni herson ID = [id number] for JOHN ERA, AVIVA POCT-GLUCOSE [id number] 12:07:00 Test Item Value Reference Range Interpretation Comments POC-GLUCOSE METER 130 mg/dL 70-110 H : TESTED A T [facility]200 (BEAKER) (test code [place] [facility] A, = 1538) [place] [address] 0: Corporate Affairs Manager/Techni herson ID = [id number] for JOHN ERA, AVIVA POCT-GLUCOSE [id number] 06:28:00 Test Item Value Reference Range Interpretation Comments POC-GLUCOSE METER 99 mg/dL 70-110 : TESTED A T [facility] (BEAKER) (test code = [place] [facility], 1538) [place] [address] 0: Corporate Affairs Manager/Techni herson ID = [id number] for BENNY , ROSY POCT-GLUCOSE [id number] 20:35:00 Test Item Value Reference Range Interpretation Comments POC-GLUCOSE METER 230 mg/dL 70-110 H : TESTED A T [facility] (BEAKER) (test code [place] [facility] A, = 1538) [place] [address] 0: Corporate Affairs Manager/Techni herson ID = [id number] for BENNY , ROSY POCT-GLUCOSE [id number] 16:19:00 Test Item Value Reference Range Interpretation Comments POC-GLUCOSE METER 184 mg/dL 70-110 H : TESTED A T [facility] (BEAKER) (test code [place] [facility] A, = 1538) [place] [address] 0: Corporate Affairs Manager/Techni herson ID = [id number] for JOHN ERA, AVIVA POCT-GLUCOSE [id number] 11:24:00 Test Item Value Reference Range Interpretation Comments POC-GLUCOSE METER 120 mg/dL 70-110 H : TESTED A T [facility] (BEAKER) (test code [place] [facility] A, = 1538) [place] [address] 0: Corporate Affairs Manager/Techni herson ID = [id number] for AVIVA PRUITT POCT-GLUCOSE [id number] 06:15:00 Test Item Value Reference Range Interpretation Comments POC-GLUCOSE METER 80 mg/dL 70-110 : TESTED A T [facility] (BEAKER) (test code = [place] [facility], 1538) [place] [address] 0: Corporate Affairs Manager/Techni herson ID = [id number] for BC EDOUARD POCT-GLUCOSE [id number] 20:23:00 Test Item Value Reference Range Interpretation Comments POC-GLUCOSE METER 140 mg/dL 70-110 H : TESTED A T [facility] (BEAKER) (test code [place] [facility] A, = 1538) [place] [address] 0: Corporate Affairs Manager/Techni herson ID = [id number] for BC EDOUARD POCT-GLUCOSE [id number] 16:13:00 Test Item Value Reference Range Interpretation Comments POC-GLUCOSE METER 163 mg/dL 70-110 H : TESTED A T [facility] (BEAKER) (test code [place] [facility] A, = 1538) [place] [address] 0: Corporate Affairs Manager/Techni herson ID = [id number] for WALDMEAR BAL COMPREHENSIVE METABOLIC [id number] 12:38:00 Test Item Value Reference Range Interpretation [...] 347) EGFR (BEAKER) (test 91 mL/min/1.73 ESTIMA NICOLE GFR IS code = 1092) sq m NOT ACCURATE CREATININE CLEARANCE IN PREDICTING GLOMERULAR FILTRATION RATE . ESTIMATED GFR I S NOT APPLICABLE FOR DIALYSIS PATIEN TS. CBC W/PLT COUNT & AUTO [id number] 12:19:00 Test Item Value Reference Range Interpretation [...] PERCENT (BEAKER) (test code = 2801) POCT-GLUCOSE [id number] 11:45:00 Test Item Value Reference Range Interpretation Comments POC-GLUCOSE METER 122 mg/dL 70-110 H : TESTED A T [facility] (BEAKER) (test code [place] [facility] A, = 1538) [place] [address] 0: Corporate Affairs Manager/Techni herson ID = [id number] for ARDEN WALDEMAR NAILS POCT-GLUCOSE [id number] 06:46:00 Test Item Value Reference Range Interpretation Comments POC-GLUCOSE METER 105 mg/dL 70-110 : TESTED A T [facility] (BEAKER) (test code [place] E [facility] A, = 1538) [place] [address] 0: Corporate Affairs Manager/Techni herson ID = [id number] for DARWIN CABALLEROW POCT-GLUCOSE [id number] 20:54:00 Test Item Value Reference Range Interpretation Comments POC-GLUCOSE METER 159 mg/dL 70-110 H : TESTED A T [facility]200 (BEAKER) (test code [place] E [facility] A, = 1538) [place] [address] 0: Corporate Affairs Manager/Techni herson ID = [id number] for DARWIN CABALLEROW POCT-GLUCOSE [id number] 17:04:00 Test Item Value Reference Range Interpretation Comments POC-GLUCOSE METER 133 mg/dL 70-110 H : TESTED A T [facility] (BEAKER) (test code [place] E [facility] A, = 1538) [place] [address] 0: Corporate Affairs Manager/Techni herson ID = [id number] for OMIW SHANNAN, SYRIETA POCT-GLUCOSE [id number] 11:21:00 Test Item Value Reference Range Interpretation Comments POC-GLUCOSE METER 124 mg/dL 70-110 H : TESTED A T [facility] (BEAKER) (test code [place] E [facility] A, = 1538) [place] [address] 0: Corporate Affairs Manager/Techni herson ID = [id number] for OMIW SHANNAN, SYRIETA POCT-GLUCOSE [id number] 06:43:00 Test Item Value Reference Range Interpretation Comments POC-GLUCOSE METER 90 mg/dL 70-110 : TESTED A T [facility] (BEAKER) (test code = [place] [facility], 1538) [place] [address] 0: Corporate Affairs Manager/Techni herson ID = [id number] for NATHAN EDWINADARWINW POCT-GLUCOSE [id number] 20:55:00 Test Item Value Reference Range Interpretation Comments POC-GLUCOSE METER 169 mg/dL 70-110 H : TESTED A T [facility] (BEAKER) (test code [place] E [facility] A, = 1538) [place] [address] 0: Corporate Affairs Manager/Techni herson ID = [id number] for NATHAN EDWINADARWINW POCT-GLUCOSE [id number] 16:35:00 Test Item Value Reference Range Interpretation Comments POC-GLUCOSE METER 164 mg/dL 70-110 H : TESTED A T [facility] (BEAKER) (test code [place] E [facility] A, = 1538) [place] [address] 0: Corporate Affairs Manager/Techni herson ID = [id number] for WALDEMAR BAL POCT-GLUCOSE [id number] 11:25:00 Test Item Value Reference Range Interpretation Comments POC-GLUCOSE METER 174 mg/dL 70-110 H : TESTED A T [facility] (BEAKER) (test code [place] E [facility] A, = 1538) [place] [address] 0: Corporate Affairs Manager/Techni herson ID = [id number] for WALDEMAR BAL POCT-GLUCOSE [id number] 06:32:00 Test Item Value Reference Range Interpretation Comments POC-GLUCOSE METER 108 mg/dL 70-110 : TESTED A T [facility] (BEAKER) (test code [place] E [facility] A, = 1538) [place] [address] 0: Corporate Affairs Manager/Techni herson ID = [id number] for BENNY , ROSY POCT-GLUCOSE [id number] 20:44:00 Test Item Value Reference Range Interpretation Comments POC-GLUCOSE METER 194 mg/dL 70-110 H : TESTED A T [facility] (BEAKER) (test code [place] E [facility]LD[place] A, = 1538) [place] [address] 0: Corporate Affairs Manager/Techni herson ID = [id number] for BENNY , ROSY POCT-GLUCOSE [id number] 16:59:00 Test Item Value Reference Range Interpretation Comments POC-GLUCOSE METER 156 mg/dL 70-110 H : TESTED A T [facility] (BEAKER) (test code CAM[place] E BLDG A, = 1538) [place] [id number] 0: Corporate Affairs Manager/Techni herson ID = [id number] for CASEY ANO, JUCEL FRAN POCT-GLUCOSE [id number] 11:42:00 Test Item Value Reference Range Interpretation Comments POC-GLUCOSE METER 181 mg/dL 70-110 H : TESTED A T [facility] (BEAKER) (test code CAM[place] E BLDG A, = 1538) [place] [id number] 0: Corporate Affairs Manager/Techni herson ID = [id number] for CASEY ANO, JUCEL FRAN POCT-GLUCOSE [id number] 06:10:00 Test Item Value Reference Range Interpretation Comments POC-GLUCOSE METER 83 mg/dL 70-110 : TESTED A T [facility] (BEAKER) (test code = CAMB[place] DGE BLDG A, 1538) [place] [id number] 0: Corporate Affairs Manager/Techni herson ID = [id number] for BENNY , ROSY POCT-GLUCOSE [id number] 20:42:00 Test Item Value Reference Range Interpretation Comments POC-GLUCOSE METER 221 mg/dL 70-110 H : TESTED A T [facility] (BEAKER) (test code CAM[place] E BLDG A, = 1538) [place] [id number] 0: Corporate Affairs Manager/Techni herson ID = [id number] for BENNY , ROSY Anaerobic [id number] 18:21:00 Test Item Value Reference Range Interpretation Comments Result (test code = No anaerobes isolated 6463-4) [facility] [id number] 18:21:00 Test Item Value Reference Range Interpretation Comments CULTURE (BEAKER) (test No anaerobes isolated code = 1095) POCT-GLUCOSE [id number] 16:23:00 Test Item Value Reference Range Interpretation Comments POC-GLUCOSE METER 193 mg/dL 70-110 H : TESTED A T [facility] 7200 (BEAKER) (test code CAMBRIDG E BLDG A, = 1538) [place] [address] 0: Corporate Affairs Manager/Techni herson ID = [id number] for JOHN AVIVA OCAMPO POCT-GLUCOSE [id number] 11:54:00 Test Item Value Reference Range Interpretation Comments POC-GLUCOSE METER 117 mg/dL 70-110 H : TESTED A T [facility] 7200 (BEAKER) (test code CAMBRIDG E BLDG A, = 1538) [place] [address] 0: Corporate Affairs Manager/Techni herson ID = [id number] for JOHN AVIVA OCAMPO POCT-GLUCOSE [id number] 06:35:00 Test Item Value Reference Range Interpretation Comments POC-GLUCOSE METER 90 mg/dL 70-110 : TESTED A T [facility] (BEAKER) (test code = CAMBRI DGE BLDG A, 1538) [place] [address] 0: Corporate Affairs Manager/Techni herson ID = [id number] for POLLO CABALLERO BASIC METABOLIC [id number] 05:02:00 Test Item Value Reference Range Interpretation [...] fL 9.0-12.3 (test code = 754) POCT-GLUCOSE [id number] 20:52:00 Test Item Value Reference Range Interpretation Comments POC-GLUCOSE METER 164 mg/dL 70-110 H : TESTED A T [facility]200 (BEAKER) (test code MADALYN Soriano, = 1538) [place] [address] 0: Corporate Affairs Manager/Techni herson ID = [id number] for POLLO CABALLERO POCT-GLUCOSE [id number] 15:52:00 Test Item Value Reference Range Interpretation Comments POC-GLUCOSE METER 142 mg/dL 70-110 H : TESTED A T [facility] (BEAKER) (test code CAMBRIDG E BLDG A, = 1538) [place] [address] 0: Corporate Affairs Manager/Techni herson ID = [id number] for OMIW SHANNAN, SYRIETA POCT-GLUCOSE [id number] 11:54:00 Test Item Value Reference Range Interpretation Comments POC-GLUCOSE METER 153 mg/dL 70-110 H : TESTED A T [facility] (BEAKER) (test code CAMBRIDG E BLDG A, = 1538) [place] [address] 0: Corporate Affairs Manager/Techni herson ID = [id number] for OMIW SHANNAN, SYRIETA POCT-GLUCOSE [id number] 06:30:00 Test Item Value Reference Range Interpretation Comments POC-GLUCOSE METER 95 mg/dL 70-110 : TESTED A T [facility] (BEAKER) (test code = CAMBRI DGE BLDG A, 1538) [place] [address] 0: Corporate Affairs Manager/Techni herson ID = [id number] for NATHAN EDWINADARWIN SorianoW POCT-GLUCOSE [id number] 20:31:00 Test Item Value Reference Range Interpretation Comments POC-GLUCOSE METER 211 mg/dL 70-110 H : TESTED A T [facility] (BEAKER) (test code CAMBRIDG E BLDG A, = 1538) [place] [address] 0: Corporate Affairs Manager/Techni herson ID = [id number] for NATHAN EDWINA, POLLO POCT-GLUCOSE [id number] 16:40:00 Test Item Value Reference Range Interpretation Comments POC-GLUCOSE METER 184 mg/dL 70-110 H : TESTED A T [facility] (BEAKER) (test code CAMBRIDG E BLDG A, = 1538) [place] [address] 0: Corporate Affairs Manager/Techni herson ID = [id number] for NWAAmina IAKU, IJEOMA POCT-GLUCOSE [id number] 12:38:00 Test Item Value Reference Range Interpretation Comments POC-GLUCOSE METER 102 mg/dL 70-110 : TESTED A T [facility] (BEAKER) (test code CAMBRIDG E BLDG A, = 1538) [place] [address] 0: Corporate Affairs Manager/Techni herson ID = [id number] for RUSSELL CADENA SIXTO POCT-GLUCOSE [id number] 06:36:00 Test Item Value Reference Range Interpretation Comments POC-GLUCOSE METER 107 mg/dL 70-110 : TESTED A T [facility] (BEAKER) (test code CAMBRIDG E BLDG A, = 1538) [place] [address] 0: Corporate Affairs Manager/Techni herson ID = [id number] for POLLO CABALLERO POCT-GLUCOSE [id number] 21:08:00 Test Item Value Reference Range Interpretation Comments POC-GLUCOSE METER 189 mg/dL 70-110 H : TESTED A T [facility] (BEAKER) (test code CAM[place]G E BLDG A, = 1538) [place] [address] 0: Corporate Affairs Manager/Techni herson ID = [id number] for EHSAN ARROYOA POCT-GLUCOSE [id number] 16:19:00 Test Item Value Reference Range Interpretation Comments POC-GLUCOSE METER 194 mg/dL 70-110 H : TESTED A T [facility] (BEAKER) (test code CAM[place] E BLDG A, = 1538) [place] [address] 0: Corporate Affairs Manager/Techni herson ID = [id number] for OMIW SHANNAN, SYRIETA POCT-GLUCOSE [id number] 12:19:00 Test Item Value Reference Range Interpretation Comments POC-GLUCOSE METER 136 mg/dL 70-110 H : TESTED A T [facility] (BEAKER) (test code CAM[place]G E BLDG A, = 1538) [place] [address] 0: Corporate Affairs Manager/Techni herson ID = [id number] for OMIW SHANNAN, SYRIETA POCT-GLUCOSE [id number] 06:29:00 Test Item Value Reference Range Interpretation Comments POC-GLUCOSE METER 74 mg/dL 70-110 : TESTED A T [facility] (BEAKER) (test code = CAMBRI DGE BLDG A, 1538) [place] [address] 0: Corporate Affairs Manager/Techni herson ID = [id number] for BC EDOUARD [id number] 05:45:00 Test Item Value Reference Range Interpretation Comments Magnesium (test code = 67444-7) 2.0 mg/dL 1.6-2.6 Lab Interpretation (test code = Normal 16112-8) [facility] [id number] 05:45:00 Test Item Value Reference Range Interpretation [...] 347) EGFR (BEAKER) (test 98 mL/min/1.73 ESTIMA NICOLE GFR IS code = 1092) sq m NOT ACCURATE CREATININE CLEARANCE IN PREDICTING GLOMERULAR FILTRATION RATE . ESTIMATED GFR I S NOT APPLICABLE FOR DIALYSIS PATIEN TS. [id number] 05:45:00 Test Item Value Reference Range Interpretation Comments MAGNESIUM (BEAKER) (test code = 2.0 mg/dL 1.6-2.6 627) CBC W/PLT COUNT & AUTO [id number] 05:28:00 Test Item Value Reference Range Interpretation [...] PERCENT (BEAKER) (test code = 2801) POCT-GLUCOSE [id number] 21:03:00 Test Item Value Reference Range Interpretation Comments POC-GLUCOSE METER 188 mg/dL 70-110 H : TESTED A T [facility] 7200 (BEAKER) (test code MADALYN REYES A, = 1538) [facility] 7703 0: Corporate Affairs Manager/Techni herson ID = [id number] for BC EDOUARD POCT-GLUCOSE [id number] 17:00:00 Test Item Value Reference Range Interpretation Comments POC-GLUCOSE METER 136 mg/dL 70-110 H : TESTED A T [facility] (BEAKER) (test code CAMBGILMAG Garret BLDG A, = 1538) [facility] 7703 0: Corporate Affairs Manager/Techni herson ID = [id number] for IJEOMA CACERES POCT-GLUCOSE [id number] 12:08:00 Test Item Value Reference Range Interpretation Comments POC-GLUCOSE METER 115 mg/dL 70-110 H : TESTED A T [facility] 6720 (BEAKER) (test code = RAKELNJ Braulio [facility], 1538) [address]: Corporate Affairs Manager/Techni herson ID = [id number] for MARIA C CHEW POCT-GLUCOSE [id number] 07:44:00 Test Item Value Reference Range Interpretation Comments POC-GLUCOSE METER 74 mg/dL 70-110 : TESTED A T [facility] 6720 (BEAKER) (test code = [facility] R [facility], 1538) [address]: Corporate Affairs Manager/Techni herson ID = [id number] for MARIA C LEWIS [id number] 07:37:00 Test Item Value Reference Range Interpretation Comments MAGNESIUM (BEAKER) (test code = 2.0 mg/dL 1.6-2.6 627) Corporate Affairs Manager ID - EMERSONBASIC METABOLIC [id number] 07:37:00 Test Item Value Reference Range Interpretation [...] 697) EGFR (BEAKER) (test 81 mL/min/1.73 ESTIMA NICOLE GFR IS code = 1092) sq m NOT ACCURATE CREATININE CLEARANCE IN PREDICTING GLOMERULAR FILTRATION RATE . ESTIMATED GFR I S NOT APPLICABLE FOR DIALYSIS PATIEN TS. Corporate Affairs Manager ID - EMERSONCBC (HEMOGRAM ONLY)2019-12-18 07:02:00 Test [...] 0-0 (BEAKER) (test code = 413) POCT-GLUCOSE [id number] 21:19:00 Test Item Value Reference Range Interpretation Comments POC-GLUCOSE METER 190 mg/dL 70-110 H : TESTED Bo Arthur [facility] 6720 (BEAKER) (test code = [facility] [place], 1538) [address]: Corporate Affairs Manager/Techni herson ID = [id number] for Barb Martins POCT-GLUCOSE [id number] 18:00:00 Test Item Value Reference Range Interpretation Comments POC-GLUCOSE METER 140 mg/dL 70-110 H : TESTED A T [facility] 6720 (BEAKER) (test code = [facility], 1538) [address]: Corporate Affairs Manager/Techni herson ID = [id number] for MARIA C CHEW POCT-GLUCOSE [id number] 11:50:00 Test Item Value Reference Range Interpretation Comments POC-GLUCOSE METER 136 mg/dL 70-110 H : TESTED A T [facility] 6720 (BEAKER) (test code = [facility], 1538) [address]: Corporate Affairs Manager/Techni herson ID = [id number] for MARIA C CHEW POCT-GLUCOSE [id number] 07:40:00 Test Item Value Reference Range Interpretation Comments POC-GLUCOSE METER 82 mg/dL 70-110 : TESTED A T [facility] 6720 (BEAKER) (test code = [facility], 1538) [address]: Corporate Affairs Manager/Techni herson ID = [id number] for MARIA C LEWIS [id number] 06:10:00 Test Item Value Reference Range Interpretation Comments MAGNESIUM (BEAKER) (test code = 2.2 mg/dL 1.6-2.6 627) Corporate Affairs Manager ID - BSBASIC METABOLIC [id number] 06:10:00 Test Item Value Reference Range Interpretation [...] 697) EGFR (BEAKER) (test 77 mL/min/1.73 ESTIMA NICOLE GFR IS code = 1092) sq m NOT ACCURATE CREATININE CLEARANCE IN PREDICTING GLOMERULAR FILTRATION RATE . ESTIMATED GFR I S NOT APPLICABLE FOR DIALYSIS PATIEN TS. Corporate Affairs Manager ID - [id number] (HEMOGRAM ONLY)2019-12-17 05:34:00 Test [...] 0-0 (BEAKER) (test code = 413) POCT-GLUCOSE [id number] 21:02:00 Test Item Value Reference Range Interpretation Comments POC-GLUCOSE METER 153 mg/dL 70-110 H : TESTED A T [facility] 6720 (BEAKER) (test code = [facility], 1538) [address]: Corporate Affairs Manager/Techni herson ID = [id number] for PREETI WYATT POCT-GLUCOSE [id number] 16:46:00 Test Item Value Reference Range Interpretation Comments POC-GLUCOSE METER 155 mg/dL 70-110 H : TESTED A T [facility] 6720 (BEAKER) (test code = [facility], 153) [address]: Corporate Affairs Manager/Techni herson ID = [id number] for HU NTER, HIWITHA RAD, CHEST, 1 VIEW, NON [id number] 15:53:00Reason for exam:->RIGHT PICC LINE TIP VERIFICATIONShould [...] Cortez Verified Date/Time: 12/16/2019 15:53:59 Reading Location: [facility] Radiology Reading Room XR chest 1 view portable / [id number] 15:53:00Interface, External Ris In - 12/16/2019 3:56 [...] Cortez Verified Date/Time: 12/16/2019 15:53:59 Reading Location: [facility] Radiology Reading [facility] [id number] 13:27:00Surgical Pathology Report Case: [id number] Authorizing Provider: Gabriel Stovall DPM Collected: 12/02/2019 08:41 AM Ordering Location: [facility] PERI[facility] Received: 12/02/2019 09:24 AM SERVICES Pathologist: [...] GANGRENOUS CHANGES Signing Pathologist Direct Phone Line: [phone] signed by Cassia Xiao MD on 12/16/2019 at 1:27 PMSlides for microscopic examination are received on 12/08/2019.MO/[id number] X 2Gangrene of right foot ([facility]) [I96] [phone] [id number] 27726L. Toe, rightB. Foot, rightC. Foot, rightA. Received [...] affected bone is red-pink, trabeculated and firm. Transportation Security Officer sectionsare submitted as follows:Section codeA1-skin and soft [...] cut surface is shabazz-yellow, trabeculated and firm. Transportation Security Officer sections are submitted in C1-C2 following decalcification.SHARON Leon (ASCP)regional sales trainer-C. The samples show variable amounts of gangrenous necrosis. In the C-sample, in slide C-1, there is prominent associated acute osteomyelitis in the C-1 slide. Some articular cartilage does not show significant inflammation.POCT-GLUCOSE [id number] 12:00:00 Test Item Value Reference Range Interpretation Comments POC-GLUCOSE METER 122 mg/dL 70-110 H : TESTED A T [facility] 6720 (BEAKER) (test code = [facility] [place], 1538) [address]: Corporate Affairs Manager/Techni herson ID = [id number] for BERRY NTER, HIWITHA [id number] 07:46:00 Test Item Value Reference Range Interpretation Comments MAGNESIUM (BEAKER) (test code = 2.2 mg/dL 1.6-2.6 627) Corporate Affairs Manager ID - ANGELINA FBASIC METABOLIC [id number] 07:46:00 Test Item Value Reference Range Interpretation [...] 697) EGFR (BEAKER) (test 81 mL/min/1.73 ESTIMA NICOLE GFR IS code = 1092) sq m NOT ACCURATE CREATININE CLEARANCE IN PREDICTING GLOMERULAR FILTRATION RATE . ESTIMATED GFR I S NOT APPLICABLE FOR DIALYSIS PATIEN TS. Corporate Affairs Manager ID - ANGELINA FCBC (HEMOGRAM ONLY)2019-12-16 07:16:00 Test Item [...] 0-0 (BEAKER) (test code = 413) POCT-GLUCOSE [id number] 07:02:00 Test Item Value Reference Range Interpretation Comments POC-GLUCOSE METER 99 mg/dL 70-110 : TESTED A T [facility] 6720 (BEAKER) (test code = [facility], 1538) [address]: Corporate Affairs Manager/Techni herson ID = [id number] for JEAN MARIE SANDERSONA POCT-GLUCOSE [id number] 21:27:00 Test Item Value Reference Range Interpretation Comments POC-GLUCOSE METER 287 mg/dL 70-110 H : TESTED A T [facility] 6720 (BEAKER) (test code = [facility], 1538) [address]: Corporate Affairs Manager/Techni herson ID = [id number] for PREETI WYATT Tissue [id number] 18:37:00 Test Item Value Reference Range Interpretation Comments Case Report (test code Surgical Pathology = 104) Report Case: [id number] Authorizing Provider: Gabriel Stovall DPM Collected: 12/05/2019 01:01 PM Ordering Location: [facility] PERI[facility] Received: 12/05/2019 01:40 PM SERVICES Pathologist: Naresh Tillman MD Specimen: Foot, Right, right foot amputation DIAGNOSIS (test code = [id number] 3220) uZzEwMzNcZnRuYmpcdWMxIH nyvdPhOXupl9RaL3BlTbEmX FxhbnNpXGRlZmxhbmcxMDMz LDE3syLhAHGsPDjiTUTdVNu fQl3gaWRdaJrsVxMgVGLhs1 msgwQLqaglwLk4s5nmIVKhI pW0iDMjKEjuW1vbmmEkoIMg WXTgZNa2uL38ZVZskJ4wbME sWYbaquSlPpL4AEvoDJDgCr B6XLAcpOMoJZVbL4cdVFUvT KwyPQQwEPsnsCJzEZT3nTpt e9G2pSTleLCsuIoaGiExCfU rEZNRx3UrZSp9pUgeA4EnKO NmCsW8aHRoBIJkCZdxANHnN QUbbeK1fY00RHokhoV3zHFj y9Odd27fr100jC3xxMYpTAZ 5LHFuUJMchVOqMRJfAEI3PV ZwpPUaL7v3GcMmuATaZ1W9Z hWkgQNuK5S0OaPuiWBaM6Q6 NdKemIInFJRdaHAgSa4ngHF udDVafk4ucg18XXK5f0OuvL tcSLD9IEL0NdWjAz3mfEYgP YErUM7wYoVxwNCzGEIdua07 uLsyFUrbexTrfR0pYrQtSEZ saQOaEWMdLQ1vxDGpLBRuvW 5ucmxjXHBnYnJkcmhlYWRcc SoldmJsTp9rmIboAKX2DRuo L9szlP4pDrM5RWogY8wnbB2 sEEp4EJsovAE7ZSPxmF2wEC 1qokzjy1pnVgTxXM4fpuxol 0jpMzPvIP4jquw0p8hgVsKr EV7uslcov7jmSrGdQRpdKGO ssghnSQNjw2WazksgGEEft1 KzK6TnpPaaG64riOweN09lG JSbpAdamJ4fmAeugX5lKsQr ZnMyNFxxbFxwbGFpblxmMVx mczIwXGxhbmcxMDMzXGhpY2 kqZjRbTDWuvTryXFrhc3HoF FOoPNXvWmYkBrxUJTAwYx2Y TGznZVKIUsRRFINTRPRQQ1Q SKCPRFXKQUEGYU414KLEptc HoNGKbSBWHG5tPAUEFTLXMU 1XNYARBR8TAGJBUNNOFQIXA COLEXIhNVsrNSH8LPTeBRxF ROnPkABNFT3XZYzDXO3FYEN OIQ35dVNAhyfQgYVVoGVAVB gVlWsYPMg0SVOJvhFFwASBf KDKqWCOVHB6wAD6JXFOAAmF oGWhUV7GLDWCUB2JNQDxGUl VNQCCFPZ4wCDqVIs4FXcZDT EXXGVFWB6JME3LlMk9YJMSE SR9NWAHqrdKxQAWyHJSOE75 TCVAWD0EHKFwCVuLTGXKHOP 7iV7aKCDOGVNVXXQJBIiCIM xTFV3TLVVBGK3FWR45HWAhT UCnRANNzdz30WYQ9EhLyu2B 0SZG8UOFqLIXna0juZNGsnW FuZzEwMzNcZnRuYmpcdWMxX HTtFqEpz1ohp671mWBav1vg BDNfDmQ4jWCvLGGyyGGiF57 9PTLrEGhoa2hnn9LiFPNnjA Ekk4Z9LRCLznrepFd6rYuxX 77ws5E0VrnbO3otKWNaBWLm M6RaXL5sZDTpGmi6YGY8PWC 3TNJqBULcB0DcDZ6zTWGufV HtCHc9k6rkyXkrTAEiESR8z 9elJMnklkPePX1qqh9vcTx5 g1bzxjKiPMFvBTXtxKXSDWF eB4KweRzbAb7wfNj9iBkeZr nxLZF2Bws5EI3xen26vgb0s BhxOCHfvjdyWjP3TSybJSIc qhtsFHu0IIcfSNUngPI6YPF kiJRwT9EbBTYyWV4gegx7NJ Q2IMyxZEAnDnG9FBJqfQLtT LOqsMcfGWwkt640PGR1UmJd GS7mZ9Adt3L4lU0jxWFtRIP jwEZdOrJnREAiod1vbENyDZ xsm2EhPGC5iqS5kDTouOBtO DEaEpX4NQteJB0eoy81DVHz NLV5xm5wkXWpfCmovmKxbPP lZIqhU0AtBOUyo224LQWqR2 SyXJFta8V4dcZrHsZdOUXkn GE4jeW1ODVcFJ4xzbwok3xc RUyrHCtcCNKkrmY3zfV9AQB fzYNuE3KglS3lFVKgIY6ubf pyq1opWZQ1BEfgUWUsVUX4Q qHuPVZvk1Qojfe6NxWvp2Qt kWKiZOdbR15en761VWAageL lD2dizUMfopwqqZOsndgwOJ qchrE7IOUfGUhsetplOFPbG RibA2icCyJrWIWbuVzqVUpj a6ZkDIMpTIClDhCieZReEJY pXgz6EXUylVKhGDZvQgYlI2 cysprkHwUYKLLda9taQ0kvg FFOwMYjM8HyCHycwoXuKGjq JExrFLE3MBR7Ym96NhC1RAR hcn19 CPT Code(s) (test code o3upzSEoGTEtjJAhYkMuTVC = 3352) wLESpc0yiISSfuVLdGgYyZb NcZnRuYmpcdWMxXGRlZmYwe 2vaq779aIPhb1ivILGuIdQ6 lQKbSUHxxZQiF134h8wcl6s rihLgnDM0YRAxLIH7JUhnbm IbfdH6BOasuXOwSuC4KYzic aKiWXurebQjpvLoTig1NVMm I716NBW8kSlnu7vkLAA1RAP vJLVgChUrLs5bsIKxD707IN EnYYEEIRFmuAy7OIZmqcSch rTokGBYo424C596y6uuHMCx aaBgtNzXvpgyc8coS176XPR hcGVydzEyMjQwXHBhcGVyaD T2ORJfXI4goyntFzSyBB0ts mzlOmRsNI2xkro5VsRgVK6r cmdiNzIwXGhlYWRlcnkwXGZ ox0ZzxdpkPW8sD7Mgi2Y8nX 9maXRcZGVmdGFiNzIwXGZvc b1rhITuVMjjt3RpSMZ3mmD9 zZRulZKdLESyIC84Jntok7F jTeroNYG4XXAuunRpv1Kyo2 unPcWusjTpD7uxP3FkFETxX EEpEIZjJsEzfuRni7Uzs5Vv kNEqeLc3l6lgUUNiLFRufZl qs5poCNH2VWCbA3X6aETea8 vzAWdsTVCbmAY0ayycYLlcW YXcxcO2qjebMFxbAXXybNT5 oxxdUWyqEPKzEdG8dfstXZu uKBNbFRI7PTxsk291JSO2NX xzYmtwYWdlXHBnbmNvbnRcc GduZGVjXHBsYWluXHBsYWlu XGYwXGZzMjRccWxccGxhaW5 vZpTgNnMqWNnvCA0mRBVkF7 nqqLJzDWHsETXjI0mzUhJao D8tbOauAJmporKbIOd2IrG9 GXO3PUHeQEroBVG8 CLINICAL HISTORY (test c0bzaTEsNZWgeSCyPcBiBUH code = 3356) hCLOsx5glMZEgfERhEnMyBu NcZnRuYmpcdWMxXGRlZmYwe 2imd168lDJda8btXGMnUdH7 lGDwJFFpeKPtR031MYPmPBf sw4mbu2EvFUZqfKIge2L9HG IGzslmpIe7mNlfH80rd3K3W pfwG6ljLRKcMIRlQ2NbXG2a JLKnQym7QEV1FWD6GUOvEDU bE2SpYG3yLNLplEKuNXs9v6 sxpRxuPXOuXHZ0h9tjRIhca lKgQL7qws4mrFf9f5cfdtVx LXXtNNBeyCNKFHItN3LueTh fHc8bhHu0pDsrBjujSHJ5Cw q5VF4rcj02pqm3fHowIYBzw ywrHxQ0INcjIWNwswdgNQl3 MFxtYXJnbDcyMFxtYXJncjc yMFxtYXJndDcyMFxtYXJnYj raNHuvVKOtYSK1TVwde122C GN9KKdgt2ewr3ujvJCdUvy2 SNGtYfVvPkwcQNxeh2Tnm1s mAUPwip1qZRE1mKSsfQfkr2 D6uQMlTAEouZQvwpGxYYKaU cL6AAbhAI9xis81TUYoCGW9 hk6euAGoqPobnaFeiALrWIm oC6PuUGVzv212YWFrU0TpHV Tcp5F1ksPmDbLuISXpjRS2v dP6OOOuCJi8aKUexvT5ykCt xQTeK0rciJ17MuFxqFLjU8E qoM19KdGjcTIoH0AfjX54Oj CiiEMiA3MjgZ38AiKbbTVhJ SBwvJMwTp0kfJTuhTUuj4Rb sERbNVwaB87cz458MNEvzuF lE1xgqBPppmrabNAobchdNZ hsrgS0ZAm3afHrtbazbNjuo GFpblxmMVxmczIwXGxhbmcx PAAeCWweT2ajIkYjRFPscKe vAUjyr6XcAPUsYLNnSzBmQg 6tDEwhGKvxvfthf8PlP1ybP Vzkt406nmCgOHztvZKvQJni CV0ev6PnfDRdFEjPDPYwPZs DGD3crSizTJEwSFbqCAetEZ DfHQPoKYNiMDSzFVD9OnO2E 2odATJ6 SPECIMEN SOURCE (test o0xhnGNhJGKwiEEiHxMaOUW code = 3377) lEDAsn7ojWOUmrWHfBhBiWw NcZnRuYmpcdWMxXGRlZmYwe 3yio769nAVdi9rrQVNqHnV6 sRJsDQQpbFDgM880i0evq0g sjyDxpCI7NTIhRDC3XOpldt AhccL8QFotvGXdLrU3UAlll hIbQGcuxgBzycMaNcx4HIUq T874XGF9hXecc8bqMYF3OXH aDXBaGgMwBs5xiVJrJ470FO GoTSEJIPLikVv8BWQxflIef aQjmENAn868W097a0uiVDXt qbPayXjUqcdlq5odP476YZL hcGVydzEyMjQwXHBhcGVyaD I9XQCnFH1vakqiThCwBJ7bb cmsDxQyKO5sosp1CkVnVC4x cmdiNzIwXGhlYWRlcnkwXGZ od1QcwuyoYB1hQ9Doc3R5nV 9maXRcZGVmdGFiNzIwXGZvc i3srDRuALrsj5BaNRA2xcQ4 uKXeaWSjGZBbHJ64Dpoqq8V oGdpqFCA2KULzupHwq1Mhc0 veLmBbxcSqG3bfC3VmTNDsM RNcRGOuAySkqvIwx7Rli1Is vZNjzOg5d6giXTPqDXZrbIg py0diDYF2GFJxB9P1cOEzi4 zxFTmtLAUzcVS5rknmASshL JZziwT3dmhcURduMXSzgWG1 qeouOQooBREjJtT2tfhsYQn pJTFvRKT4JOqbr336YRE5CX xzYmtwYWdlXHBnbmNvbnRcc GduZGVjXHBsYWluXHBsYWlu XGYwXGZzMjRccWxccGxhaW5 oIdLkBwOzQQdoQW8nLJFgQ7 ijlQSaWOKnMYInP0wcLzKal M7dvZikZTltvsIrYNIsk5Ht KBXuL5u8RNAgkk0= GROSS DESCRIPTION c8qbqLZnUBPjwJJrFqXgVYD (test code = 3366) uRJOqz1rqNJWrsNPvKmRuVo NcZnRuYmpcdWMxXGRlZmYwe 3czf456rSXys1ylIKOvJtD3 xHLzRIBlcQAhU331s3kti3a yssPlhKH7ATIsOCS3OHvhrp MydqB0HUyasYHkIlV1EVlfr zVfDZjluoYqprZeJph3KABm R481FVO5jKqjb5uzGKS1JYR cCLOiKtDeFe5ylLIoW392VY PaLMPAHREokIh9QMPadhEos lVmtOSWw139Y491u9gsFJQc dhDbcUvIlqdzj7lnJ321BYH hcGVydzEyMjQwXHBhcGVyaD P2TWRsED7vsfxtEdXdMH4wu jhhRiZzDQ2fmyd0ZkMkHB0e cmdiNzIwXGhlYWRlcnkwXGZ sv5FaeqddCK5yH4Kdp6E7xF 9maXRcZGVmdGFiNzIwXGZvc y9ecIBsPClch1FmBRC7deY3 uICahYBaGWOrIH81Kxkbq4Q rXrgfLQR8WKNzutEpa5Wnh5 guJcFtjuYkT6seP5WyAITwJ ORfEFAdRbCtvrJaf3Sgb4Fz uJHofCm4y1yiFVXxAKLrrQu pb7vgWKS9ARXgI3C5rOBkn8 kgNKodKWMzwCD6qqkjMHqaN ATpboH0qaogCFofBOYlcKA8 typaYGfoWLBxKkY3wdosQWf gLKAaMJQ5FHaud657XVF6KF xzYmtwYWdlXHBnbmNvbnRcc GduZGVjXHBsYWluXHBsYWlu XGYwXGZzMjRccWxccGxhaW5 gXcZeMkZiQUxoGY9gIHYnE2 gmsCBfAFTiUDZaW1glPdBvm G0ioYsqRSyezsOxVKTxV5Dv ylRyFMtqTEUgvj2ikWimFRf yFeXwXGMpp0e5lAV2hFLieK Z7yZMqcLnfYN9quTLpKHWmT 3Jgj8pfjwNdpX0kAFEkIU4f FTUthWtqjJAkx609WfYobqE jTIGgSaDisVG7FvElzXR5Yo UqQ51yxthmrSDpuQLpfcBxX KWjyMRmb3GdNIQykXN4MMIt q23kDGgsuUpctSmaLaXcuBa jzYEdTLrgMK98HgWbIZyxCN RryH5bcQXvmJYgLLJkiuwnB Q1iCWDxs7YbUFuwNACdCR5o JTttGo90VOBgIMXxglM8eZS vzuZ3QIIfsPBjcP1jAFL4BE FpNCNswdJ3pC70ggAyrSThG E2pDMQtlUK5RXDqf47nfHne dCBpcyBpbnZvbHZpbmcgdGh sWEqbyGUgCSuzZZOpFIY7YG 9mIHRoZSBmaXJzdCBkaWdpd CBhbmQgbWVkaWFsIGFzcGVj cICjGiK7uWTbLe15qcAvFFQ bK6f6AYStzcPyaZNaeIKqey L7zYYfCJCpXVQrqYEblg3xA IFjJCShn8ayGONrKWGmd9I4 QBWkr9W3BASsFJKabO4mYYg mp2NgPVXylUNnBfWoXKhcQG YhDQWwsAdkcskeJONjJEM4H WTrKk5pDSNtheN7NF6mcAOg rA79HCA0quKbQQE8yES7JLA oAI2yLSVola6bCJVTJECrDZ EcikQjbNf5AIZsLYS4sN8ei sLdmrDxd0EogHs6cSUdAAJx GXDquBxev2Y8GLUlzjsvUZE qI7PyjEsbtdOas6BoNWUjwo HGSO2lDUNgp03eWP5xQFDuc Y0xIK2dWNQzFeNwbTwmu3Gd JE2vcbswroFzfbPxTPIfTII wlwDGNy7HAi2qn56sDA7lpj druqDrq6pnn1bcxeobTVPgV TvruPVoL9G7dE3vPNLoryAK EA7sm9miBHqjj8oypmplJWW xZVUxf8osbwAmHGCzn94oPV 5kIHVuZGVybHlpbmcgYWZmZ GY8DDDrZf3jWTBeb6aha2cp zqjzMXFmTIjpvRLvR3D8yK2 uXHBhclxwYXIgUGlsYXIgQX JndWVsbGVzLCBQQSAoQVNDU CljbVxwYXJccGFyXHBhcn0= MICROSCOPIC d2itqCGbYECzvLCmNzYnDXD DESCRIPTION (test code mPVGjo2pwZTSqeBWlZlQsRw = 3371) NcZnRuYmpcdWMxXGRlZmYwe 1zmy335mAWqw0roEFNhYaO5 fIRzZBKfsEEjR829v1gkz4m ibrNsoWP2MUQyPRV6XMepty TzriQ5YJrllZOmJkS6UXrfr lRqOBzucqYhnxXmEzf1YFDy B808SFZ6eSssc7vcHVX1HJD rFPTpHzMgDz7tyBJhD503RO McQJMALOBssJx0BIXaixFgz yJoeXMAk083J503j4ktROAy qqIrbSgPvbfvb9fkX005ORW hcGVydzEyMjQwXHBhcGVyaD Q9IDWkPA4dpyoaOaIsJB7rf arrClImJI4elgj6GkChLH5n cmdiNzIwXGhlYWRlcnkwXGZ my6UlqepkLN2xA8Bmc0C2rE 9maXRcZGVmdGFiNzIwXGZvc a5ysZWnNKtxt8HqMUJ2slY5 wAKylWEdKSUcXI87Ttxbu4O gAfkeZAG6VYAmyzGvx1Fzn9 vwAuIfklGuC5hgV2WbKTBtY WYqJXBqNfFotwPzw2Bzi2El vLPaeYh5d5gtBNStTTPmnAm tt6gzJPF0BZEiY5S0bLOdj8 yqPCmeAYWjvPH1arxcDAcmK ZKhffI7ueqsONfrVHXycEF4 ebszSWzhNJEcBxA9tzpgUQy cJYOcXAY5CWaeg385TDJ0NM xzYmtwYWdlXHBnbmNvbnRcc GduZGVjXHBsYWluXHBsYWlu XGYwXGZzMjRccWxccGxhaW5 cBfWnGaRrXWndUJ5sHRCcJ8 osyBEiXNTbNVEfH8nvOnOlf X5kiYxnBSixaoIvCDNdpgYr io7cOT1usQJhnW== [facility] [id number] 18:37:00Surgical Pathology Report Case: [id number] Authorizing Provider: Gabriel Stovall DPM Collected: 12/05/2019 01:01 PM Ordering Location: [facility] PERI[facility] Received: 12/05/2019 01:40 PM SERVICES Pathologist: Naresh Tillman MD Specimen: Foot, Right, right foot amputation RIGHT FOOT, TRANSMETATARSAL AMPUTATION: - SKIN AND SOFT TISSUE WITH ACUTE INFLAMMATION AND ABSCESS FORMATION, AND NECROSIS - SKIN AND SOFT TISSUE RESECTION MARGIN, INVOLVED BY ABSCESS FORMATION - BONE RESECTION MARGIN WITH FEATURES OF ACUTE OSTEOMYELITIS Signing Pathologist Direct Phone Line: [phone] signed by Naresh Tillman MD on 12/15/2019 at 6:37 [id number], [id number]-stlqubt surgical wound, initial encounter [[id number], [id number], 73462, 45587Tvhi, rightReceived in formalin labeled with the patient's [...] affected bone is shabazz-yellow, trabeculated and firm. Transportation Security Officer sections are submitted as follows:Section codeA1-lesion and skin and soft tissue margin en jjynD4-H1-zypl margin following decalcificationA4-skin lesionA5-skin lesion and underlying affected bone following decalcificationPiSHARON Stroud (ASCP)cmPerformed.POCT-GLUCOSE [id number] 16:55:00 Test Item Value Reference Range Interpretation Comments POC-GLUCOSE METER 149 mg/dL 70-110 H : TESTED A T [facility] (BEAKER) (test code = [place], 1538) [address]14: Corporate Affairs Manager/Techni herson ID = [id number] for MA RTIN, CHIANNA POCT-GLUCOSE [id number] 11:57:00 Test Item Value Reference Range Interpretation Comments POC-GLUCOSE METER 251 mg/dL 70-110 H : TESTED A T [facility] [address] (BEAKER) (test code = LOREE Ramsey [facility], 1538) 93656: Corporate Affairs Manager/Techni herson ID = [id number] for BERRY GONZALEZERMARCOSWITHA Surgically obtained culture + gram [id number] 10:43:00 Test Item Value Reference Range Interpretation Comments Result (test code = 6463-4) No growth Gram Stain Result (test No organisms seen code = 1123) [facility] + GRAM [id number] 10:43:00 Test Item Value Reference Range Interpretation Comments CULTURE (BEAKER) (test No growth code = 1095) GRAM STAIN RESULT <1+ White blood cells (BEAKER) (test code = seen 1123) GRAM STAIN RESULT No organisms seen (BEAKER) (test code = 61671) POCT-GLUCOSE [id number] 07:10:00 Test Item Value Reference Range Interpretation Comments POC-GLUCOSE METER 130 mg/dL 70-110 H : TESTED A T [facility] 6720 (BEAKER) (test code = [facility], 1538) 38785: Corporate Affairs Manager/Techni herson ID = [id number] for BERRY NTERMARCOSWITHBo [id number] 06:12:00 Test Item Value Reference Range Interpretation Comments MAGNESIUM (BEAKER) (test code = 2.3 mg/dL 1.6-2.6 627) Corporate Affairs Manager ID - PIAYA LBASIC METABOLIC [id number] 06:12:00 Test Item Value Reference Range Interpretation [...] 697) EGFR (BEAKER) (test 83 mL/min/1.73 ESTIMA NICOLE GFR IS code = 1092) sq m NOT ACCURATE CREATININE CLEARANCE IN PREDICTING GLOMERULAR FILTRATION RATE . ESTIMATED GFR I S NOT APPLICABLE FOR DIALYSIS PATIEN TS. Corporate Affairs Manager ID - PIAYA LCBC (HEMOGRAM ONLY)2019-12-15 05:22:00 [...] 0-0 (BEAKER) (test code = 413) POCT-GLUCOSE [id number] 21:27:00 Test Item Value Reference Range Interpretation Comments POC-GLUCOSE METER 225 mg/dL 70-110 H : TESTED Bo Arthur [facility] 6720 (BEAKER) (test code = [place], 1538) 79723: Corporate Affairs Manager/Techni herson ID = [id number] for ZOILA GAMEZ POCT-GLUCOSE [id number] 17:30:00 Test Item Value Reference Range Interpretation Comments POC-GLUCOSE METER 219 mg/dL 70-110 H : TESTED A T [facility] 6720 (BEAKER) (test code = [facility], 1538) 67553: Corporate Affairs Manager/Techni herson ID = [id number] for KARY MAC POCT-GLUCOSE [id number] 12:19:00 Test Item Value Reference Range Interpretation Comments POC-GLUCOSE METER 184 mg/dL 70-110 H : TESTED A T [facility] 6720 (BEAKER) (test code = [facility], 1538) 94310: Corporate Affairs Manager/Techni herson ID = [id number] for Brandt MACULMA POCT-GLUCOSE [id number] 08:06:00 Test Item Value Reference Range Interpretation Comments POC-GLUCOSE METER 126 mg/dL 70-110 H : TESTED A T [facility] 6720 (BEAKER) (test code = [facility], 1538) 77567: Corporate Affairs Manager/Techni herson ID = [id number] for KARY MAC [id number] 06:11:00 Test Item Value Reference Range Interpretation Comments MAGNESIUM (BEAKER) (test code = 2.3 mg/dL 1.6-2.6 627) Corporate Affairs Manager ID - PIAYA LBASIC METABOLIC [id number] 06:11:00 Test Item Value Reference Range Interpretation [...] 697) EGFR (BEAKER) (test 78 mL/min/1.73 ESTIMA NICOLE GFR IS code = 1092) sq m NOT ACCURATE CREATININE CLEARANCE IN PREDICTING GLOMERULAR FILTRATION RATE . ESTIMATED GFR I S NOT APPLICABLE FOR DIALYSIS PATIEN TS. Corporate Affairs Manager ID - PIAYA LCBC (HEMOGRAM ONLY)2019-12-14 05:21:00 Test Item Value [...] 0-0 (BEAKER) (test code = 413) POCT-GLUCOSE [id number] 21:54:00 Test Item Value Reference Range Interpretation Comments POC-GLUCOSE METER 240 mg/dL 70-110 H : TESTED A T [facility] 6720 (BEAKER) (test code = [facility] Keko [facility], 1538) 58442: Corporate Affairs Manager/Techni herson ID = [id number] for GREG BARBOSA POCT-GLUCOSE [id number] 17:05:00 Test Item Value Reference Range Interpretation Comments POC-GLUCOSE METER 145 mg/dL 70-110 H : TESTED A T [facility] 6720 (BEAKER) (test code = [facility] K[facility]o [facility], 1538) 79973: Corporate Affairs Manager/Techni herson ID = [id number] for Abner Rowan SPIN/CONCENTRATION [id number] 12:25:00 Test Item Value Reference Range Interpretation Comments Concentration charged (test code = Done 265) [facility] [id number] 12:25:00 Test Item Value Reference Range Interpretation Comments CONCENTRATION CHARGED (BEAKER) (test Done code = 2657) POCT-GLUCOSE [id number] 11:27:00 Test Item Value Reference Range Interpretation Comments POC-GLUCOSE METER 294 mg/dL 70-110 H : TESTED A T [facility] 6720 (BEAKER) (test code = [place], 1538) 73977: Corporate Affairs Manager/Techni herson ID = [id number] for Abner Rowan POCT-GLUCOSE [id number] 07:32:00 Test Item Value Reference Range Interpretation Comments POC-GLUCOSE METER 109 mg/dL 70-110 : TESTED A T [facility] 6720 (BEAKER) (test code = [facility] Braulio [facility], 1538) 88607: Corporate Affairs Manager/Techni herson ID = [id number] for Abner Rowan CBC (HEMOGRAM ONLY)2019-12-13 06:36:00 [...] WBC 0-0 (BEAKER) (test code = 413) [id number] 05:43:00 Test Item Value Reference Range Interpretation Comments MAGNESIUM (BEAKER) (test code = 2.3 mg/dL 1.6-2.6 627) Corporate Affairs Manager ID Bryant MONTOYA WBASIC METABOLIC [id number] 05:43:00 Test Item Value Reference Range Interpretation [...] 697) EGFR (BEAKER) (test 81 mL/min/1.73 ESTIMA NICOLE GFR IS code = 1092) sq m NOT ACCURATE CREATININE CLEARANCE IN PREDICTING GLOMERULAR FILTRATION RATE . ESTIMATED GFR I S NOT APPLICABLE FOR DIALYSIS PATIEN TS. Corporate Affairs Manager ID Bryant MONTOYA WPOCT-GLUCOSE [id number] 21:23:00 Test Item Value Reference Range Interpretation Comments POC-GLUCOSE METER 225 mg/dL 70-110 H : TESTED A T [facility] 6720 (BEAKER) ([facility] 1538[facility] 91659: Corporate Affairs Manager/Techni herson ID = [id number] for CRESENCIO BAH POCT-GLUCOSE [id number] 17:01:00 Test Item Value Reference Range Interpretation Comments POC-GLUCOSE METER 199 mg/dL 70-110 H : TESTED A T [facility] 6720 (BEAKER) (test code = [facility], 1538) 23115: Corporate Affairs Manager/Techni herson ID = [id number] for PAVAN ZUÑIGA POCT-GLUCOSE [id number] 12:55:00 Test Item Value Reference Range Interpretation Comments POC-GLUCOSE METER 148 mg/dL 70-110 H : TESTED A T [facility] 6720 (BEAKER) (test code = [place] [facility], 1538) 13327: Corporate Affairs Manager/Techni herson ID = [id number] for KYLER MOHMAUD POCT-GLUCOSE [id number] 08:06:00 Test Item Value Reference Range Interpretation Comments POC-GLUCOSE METER 179 mg/dL 70-110 H : TESTED A T [facility] 6720 (BEAKER) (test code = [place] [facility], 1538) 51395: Corporate Affairs Manager/Techni herson ID = [id number] for PAVAN ZUÑIGA CBC (HEMOGRAM ONLY)2019-12-12 06:52:00 [...] WBC 0-0 (BEAKER) (test code = 413) [id number] 06:47:00 Test Item Value Reference Range Interpretation Comments MAGNESIUM (BEAKER) (test code = 2.3 mg/dL 1.6-2.6 627) Corporate Affairs Manager ID - LABASIC METABOLIC [id number] 06:47:00 Test Item Value Reference Range Interpretation [...] 697) EGFR (BEAKER) (test 77 mL/min/1.73 ESTIMA NICOLE GFR IS code = 1092) sq m NOT ACCURATE CREATININE CLEARANCE IN PREDICTING GLOMERULAR FILTRATION RATE . ESTIMATED GFR I S NOT APPLICABLE FOR DIALYSIS PATIEN TS. Corporate Affairs Manager ID - LAPOCT-GLUCOSE [id number] 21:12:00 Test Item Value Reference Range Interpretation Comments POC-GLUCOSE METER 285 mg/dL 70-110 H : TESTED A T [facility] 6720 (BEAKER) (test [facility] = [facility] 1538) 09722: Corporate Affairs Manager/Techni herson ID = [id number] for CRESENCIO BAH POCT-GLUCOSE [id number] 16:56:00 Test Item Value Reference Range Interpretation Comments POC-GLUCOSE METER 226 mg/dL 70-110 H : TESTED A T [facility] 6720 (BEAKER) ([facility] = [facility], 1538) 50106: Corporate Affairs Manager/Techni herson ID = [id number] for [place] LLIAMS, TYNEKA POCT-GLUCOSE [id number] 11:57:00 Test Item Value Reference Range Interpretation Comments POC-GLUCOSE METER 293 mg/dL 70-110 H : TESTED A T [facility] 6720 (BEAKER) (test code = [facility], 1538) 88766: Corporate Affairs Manager/Techni herson ID = [id number] for MARIA C CHEW POCT-GLUCOSE [id number] 07:36:00 Test Item Value Reference Range Interpretation Comments POC-GLUCOSE METER 152 mg/dL 70-110 H : TESTED A T [facility] 6720 (BEAKER) (test code = [facility], 1538) 81180: Corporate Affairs Manager/Techni herson ID = [id number] for MARIA C CHEW [id number] 06:31:00 Test Item Value Reference Range Interpretation Comments MAGNESIUM (BEAKER) 2.4 mg/dL 1.6-2.6 Specimen slightly (test code = 627) hemolyzed Corporate Affairs Manager ID - PIAYA LBASIC METABOLIC [id number] 06:31:00 Test Item Value Reference Range Interpretation [...] 697) EGFR (BEAKER) (test 72 mL/min/1.73 ESTIMA NICOLE GFR IS code = 1092) sq m NOT ACCURATE CREATININE CLEARANCE IN PREDICTING GLOMERULAR FILTRATION RATE . ESTIMATED GFR I S NOT APPLICABLE FOR DIALYSIS PATIEN TS. Corporate Affairs Manager ID - PIAYA LCBC (HEMOGRAM ONLY)2019-12-11 05:58:00 [...] 0-0 (BEAKER) (test code = 413) POCT-GLUCOSE [id number] 21:34:00 Test Item Value Reference Range Interpretation Comments POC-GLUCOSE METER 290 mg/dL 70-110 H : TESTED A T [facility] 6720 (BEAKER) (test code = [facility], 153) 88856: Corporate Affairs Manager/Techni herson ID = [id number] for ZOILA GAMEZ POCT-GLUCOSE [id number] 16:49:00 Test Item Value Reference Range Interpretation Comments POC-GLUCOSE METER 247 mg/dL 70-110 H : TESTED A T [facility] 6720 (BEAKER) (test code = [facility], 153) 96568: Corporate Affairs Manager/Techni herson ID = [id number] for CHANDAN PADRON POCT-GLUCOSE [id number] 11:15:00 Test Item Value Reference Range Interpretation Comments POC-GLUCOSE METER 244 mg/dL 70-110 H : TESTED A T [facility] 6720 (BEAKER) (test code = [facility], 153) 43016: Corporate Affairs Manager/Techni herson ID = [id number] for CHANDAN PADRON [id number] 08:20:00 Test Item Value Reference Range Interpretation Comments MAGNESIUM (BEAKER) (test code = 2.4 mg/dL 1.6-2.6 627) Corporate Affairs Manager ID - MINERVA BBASIC METABOLIC [id number] 08:20:00 Test Item Value Reference Range Interpretation [...] 697) EGFR (BEAKER) (test 67 mL/min/1.73 ESTIMA NICOLE GFR IS code = 1092) sq m NOT ACCURATE CREATININE CLEARANCE IN PREDICTING GLOMERULAR FILTRATION RATE . ESTIMATED GFR I S NOT APPLICABLE FOR DIALYSIS PATIEN TS. Corporate Affairs Manager ID - MINERVA BPOCT-GLUCOSE [id number] 07:50:00 Test Item Value Reference Range Interpretation Comments POC-GLUCOSE METER 239 mg/dL 70-110 H : TESTED A T [facility] (BEAKER) (test code = [place] [place], 1538) 87402: Corporate Affairs Manager/Techni herson ID = [id number] for [facility] CBC (HEMOGRAM ONLY)2019-12-10 07:07:00 Test Item Value [...] 0-0 (BEAKER) (test code = 413) POCT-GLUCOSE [id number] 21:25:00 Test Item Value Reference Range Interpretation Comments POC-GLUCOSE METER 248 mg/dL 70-110 H : TESTED A T [facility] 6720 (BEAKER) (test code = [facility], 153) 68415: Corporate Affairs Manager/Techni herson ID = [id number] for Barb Martins POCT-GLUCOSE [id number] 17:15:00 Test Item Value Reference Range Interpretation Comments POC-GLUCOSE METER 221 mg/dL 70-110 H : TESTED A T [facility] 6720 (BEAKER) (test code = [facility], 1538) 10442: Corporate Affairs Manager/Techni herson ID = [id number] for HU NTER, HIWITHA POCT-GLUCOSE [id number] 12:00:00 Test Item Value Reference Range Interpretation Comments POC-GLUCOSE METER 220 mg/dL 70-110 H : TESTED A T [facility] 6720 (BEAKER) (test code = [facility], 1538) 33803: Corporate Affairs Manager/Techni herson ID = [id number] for HU NTER, HIWITHA [id number] 07:12:00 Test Item Value Reference Range Interpretation Comments MAGNESIUM (BEAKER) (test code = 2.4 mg/dL 1.6-2.6 627) Corporate Affairs Manager ID - ANGELINA FBASIC METABOLIC [id number] 07:12:00 Test Item Value Reference Range Interpretation [...] 697) EGFR (BEAKER) (test 75 mL/min/1.73 ESTIMA NICOLE GFR IS code = 1092) sq m NOT ACCURATE CREATININE CLEARANCE IN PREDICTING GLOMERULAR FILTRATION RATE . ESTIMATED GFR I S NOT APPLICABLE FOR DIALYSIS PATIEN TS. Corporate Affairs Manager ID - ANGELINA FPOCT-GLUCOSE [id number] 07:04:00 Test Item Value Reference Range Interpretation Comments POC-GLUCOSE METER 176 mg/dL 70-110 H : TESTED A T [facility]20 (BEAKER) (test code = [facility] Braulio [facility], 1538) 01065: Corporate Affairs Manager/Techni herson ID = [id number] for YADI KU CBC (HEMOGRAM ONLY)2019-12-09 06:51:00 [...] 0-0 (BEAKER) (test code = 413) POCT-GLUCOSE [id number] 22:22:00 Test Item Value Reference Range Interpretation Comments POC-GLUCOSE METER 248 mg/dL 70-110 H : TESTED A T [facility] 6720 (BEAKER) (test code = [facility] Keko [facility], 153) 59617: Corporate Affairs Manager/Techni herson ID = [id number] for MARY ALEXANDRIA ZOILA Blood Culture - Routine (Left Venipuncture)2019-12-08 21:00:00 Test Item Value Reference Range Interpretation Comments Result (test code = No growth in 5 days 6463-4) [facility] [id number] 21:00:00 Test Item Value Reference Range Interpretation Comments CULTURE (BEAKER) (test No growth in 5 days code = 1095) BLOOD [id number] 21:00:00 Test Item Value Reference Range Interpretation Comments CULTURE (BEAKER) (test No growth in 5 days code = 1095) ANAEROBIC [id number] 17:38:00 Test Item Value Reference Range Interpretation Comments CULTURE (BEAKER) (test No anaerobes isolated code = 1095) POCT-GLUCOSE [id number] 16:42:00 Test Item Value Reference Range Interpretation Comments POC-GLUCOSE METER 193 mg/dL 70-110 H : TESTED A T [facility] 6720 (BEAKER) (test code = [facility] Keko [facility], 1538) 53288: Corporate Affairs Manager/Techni herson ID = [id number] for TERELL GREENWOOD POCT-GLUCOSE [id number] 12:04:00 Test Item Value Reference Range Interpretation Comments POC-GLUCOSE METER 199 mg/dL 70-110 H : TESTED A T [facility] 6720 (BEAKER) (test code = [facility] Keko [facility], 1538) 79487: Corporate Affairs Manager/Techni herson ID = [id number] for TERELL GREENWOOD POCT-GLUCOSE [id number] 08:08:00 Test Item Value Reference Range Interpretation Comments POC-GLUCOSE METER 168 mg/dL 70-110 H : TESTED A T [facility] 6720 (BEAKER) (test code = [place], 1538) 11683: Corporate Affairs Manager/Techni herson ID = [id number] for TERELL GREENWOOD [id number] 07:27:00 Test Item Value Reference Range Interpretation Comments MAGNESIUM (BEAKER) (test code = 2.1 mg/dL 1.6-2.6 627) Corporate Affairs Manager ID - JORGE ALBERTO CBASIC METABOLIC [id number] 07:27:00 Test Item Value Reference Range Interpretation [...] 697) EGFR (BEAKER) (test 78 mL/min/1.73 ESTIMA NICOLE GFR IS code = 1092) sq m NOT ACCURATE CREATININE CLEARANCE IN PREDICTING GLOMERULAR FILTRATION RATE . ESTIMATED GFR I S NOT APPLICABLE FOR DIALYSIS PATIEN TS. Corporate Affairs Manager ID - JORGE ALBERTO CCBC (HEMOGRAM ONLY)2019-12-08 [...] 0-0 (BEAKER) (test code = 413) POCT-GLUCOSE [id number] 21:57:00 Test Item Value Reference Range Interpretation Comments POC-GLUCOSE METER 215 mg/dL 70-110 H : TESTED A T [facility] 6720 (BEAKER) (test code = [facility], 1538) 01885: Corporate Affairs Manager/Techni herson ID = [id number] for BART LESLIE POCT-GLUCOSE [id number] 17:22:00 Test Item Value Reference Range Interpretation Comments POC-GLUCOSE METER 151 mg/dL 70-110 H : TESTED A T [facility] 6720 (BEAKER) (test code = [facility], 1538) 58808: Corporate Affairs Manager/Techni herson ID = [id number] for PAVAN ZUÑIGA OBTAINED CULTURE + GRAM [id number] 13:45:00 Test Item Value Reference Range Interpretation [...] No organisms seen (BEAKER) (test code = 913379) [id number] 06:32:00 Test Item Value Reference Range Interpretation Comments MAGNESIUM (BEAKER) 2.2 mg/dL 1.6-2.6 Specimen slightly (test code = 627) hemolyzed Corporate Affairs Manager ID - PIAYA LBASIC METABOLIC [id number] 06:32:00 Test Item Value Reference Range Interpretation [...] 697) EGFR (BEAKER) (test 91 mL/min/1.73 ESTIMA NICOLE GFR IS code = 1092) sq m NOT ACCURATE CREATININE CLEARANCE IN PREDICTING GLOMERULAR FILTRATION RATE . ESTIMATED GFR I S NOT APPLICABLE FOR DIALYSIS PATIEN TS. Corporate Affairs Manager ID - PIAYA LCBC (HEMOGRAM ONLY)2019-12-07 05:39:00 [...] 0-0 (BEAKER) (test code = 413) POCT-GLUCOSE [id number] 21:14:00 Test Item Value Reference Range Interpretation Comments POC-GLUCOSE METER 165 mg/dL 70-110 H : TESTED A T [facility] 6720 (BEAKER) (test code = [facility], 153) 30703: Corporate Affairs Manager/Techni herson ID = [id number] for NIC ANDREA IIILEILANI SPIN/CONCENTRATION [id number] 18:12:00 Test Item Value Reference Range Interpretation Comments CONCENTRATION CHARGED (BEAKER) (test Done code = 2657) POCT-GLUCOSE [id number] 16:48:00 Test Item Value Reference Range Interpretation Comments POC-GLUCOSE METER 155 mg/dL 70-110 H : TESTED A T [facility] 6720 (BEAKER) (test code = [facility], 153) 23956: Corporate Affairs Manager/Techni herson ID = [id number] for MARCOS KUWITHA POCT-GLUCOSE [id number] 12:18:00 Test Item Value Reference Range Interpretation Comments POC-GLUCOSE METER 163 mg/dL 70-110 H : TESTED A T [facility] 6720 (BEAKER) (test code = [facility], 1538) 68081: Corporate Affairs Manager/Techni herson ID = [id number] for FINESSE MERCEDES ECG 12 [id number] 08:45:24Interface, External Ris In - 12/06/2019 8:45 AM CDTVentricular Rate 80 BPMAtrial Rate 80 BPMP-R Interval 160 msQRS Duration 86 msQ-T Interval 418 msQTC Calculation(Bazett) 482 msP [place] 0 degreesR Axis14 degreesT [place] 36 degreesSinus rhythm with occasional Premature ventricular complexes and Premature atrial complexesOtherwise normal ECGNo previous ECGs availableConfirmed by MD Bebe, Cristhian ([id number])on 12/06/2019 8:45:22 [facility] [id number] 07:11:00 Test Item Value Reference Range Interpretation Comments POC-GLUCOSE METER 106 mg/dL 70-110 : TESTED A T [facility] (BEAKER) (test code = [place] Ramsey [facility], 1538) 14995: Corporate Affairs Manager/Techni herson ID = [id number] for MARCOS KUWITHA BLOOD [id number] 06:00:00 Test Item Value Reference Range Interpretation Comments CULTURE (BEAKER) (test No growth in 5 days code = 1095) BLOOD [id number] 06:00:00 Test Item Value Reference Range Interpretation Comments CULTURE (BEAKER) (test No growth in 5 days code = 1095) [id number] 05:55:00 Test Item Value Reference Range Interpretation Comments MAGNESIUM (BEAKER) (test code = 1.8 mg/dL 1.6-2.6 627) Corporate Affairs Manager ID - PALOMA MBASIC METABOLIC [id number] 05:55:00 Test Item Value Reference Range Interpretation [...] 697) EGFR (BEAKER) (test 94 mL/min/1.73 ESTIMA NICOLE GFR IS code = 1092) sq m NOT ACCURATE CREATININE CLEARANCE IN PREDICTING GLOMERULAR FILTRATION RATE . ESTIMATED GFR I S NOT APPLICABLE FOR DIALYSIS PATIEN TS. Corporate Affairs Manager ID - PALOMA MCBC (HEMOGRAM ONLY)2019-12-06 05:21:00 [...] 0-0 (BEAKER) (test code = 413) POCT-GLUCOSE [id number] 21:16:00 Test Item Value Reference Range Interpretation Comments POC-GLUCOSE METER 158 mg/dL 70-110 H : TESTED A T [facility] (BEAKER) (test code = [place], 1538) 97643: Corporate Affairs Manager/Techni herson ID = [id number] for [facility] IIILEILANI ANAEROBIC [id number] 17:15:00 Test Item Value Reference Range Interpretation Comments CULTURE (BEAKER) (test No anaerobes isolated code = 1095) POCT-GLUCOSE [id number] 16:48:00 Test Item Value Reference Range Interpretation Comments POC-GLUCOSE METER 127 mg/dL 70-110 H : TESTED A T [facility] (BEAKER) (test code = [place], 1538) 55007: Corporate Affairs Manager/Techni herson ID = [id number] for TERELL GREENWOOD RAD, FOOT, MIN 3 VIEWS, [id number] 16:43:00Reason for exam:->s/p debridementFINAL REPORT TECHNIQUE: Frontal, [...] Verified Date/Time: 12/05/2019 16:43:31 Reading Location: [address] Radiology Reading Room XR foot 3 [...] Verified Date/Time: 12/05/2019 16:43:31 Reading Location: [address] Radiology Reading [facility] GRAM [id number] 13:21:00 Test Item Value Reference Interpretation Comments [...] No organisms seen (BEAKER) (test code = 212131) POCT-GLUCOSE [id number] 13:08:00 Test Item Value Reference Range Interpretation Comments POC-GLUCOSE METER 127 mg/dL 70-110 H : TESTED A T [facility] 6720 (BEAKER) (test code = [facility], 1538) 21510: Corporate Affairs Manager/Techni herson ID = [id number] for RENEE ROGEL POCT-GLUCOSE [id number] 08:14:00 Test Item Value Reference Range Interpretation Comments POC-GLUCOSE METER 163 mg/dL 70-110 H : TESTED A T [facility] 6720 (BEAKER) (test code = [facility], 1538) 21416: Corporate Affairs Manager/Techni herson ID = [id number] for TERELL GREENWOOD [id number] 07:20:00 Test Item Value Reference Range Interpretation Comments MAGNESIUM (BEAKER) (test code = 1.8 mg/dL 1.6-2.6 627) Corporate Affairs Manager ID - PALOMA MBASIC METABOLIC [id number] 07:20:00 Test Item Value Reference Range Interpretation [...] 697) EGFR (BEAKER) (test 89 mL/min/1.73 ESTIMA NICOLE GFR IS code = 1092) sq m NOT ACCURATE CREATININE CLEARANCE IN PREDICTING GLOMERULAR FILTRATION RATE . ESTIMATED GFR I S NOT APPLICABLE FOR DIALYSIS PATIEN TS. Corporate Affairs Manager ID - PALOMA MCBC (HEMOGRAM ONLY)2019-12-05 06:44:00 [...] 0-0 (BEAKER) (test code = 413) POCT-GLUCOSE [id number] 21:18:00 Test Item Value Reference Range Interpretation Comments POC-GLUCOSE METER 146 mg/dL 70-110 H : TESTED A T [facility] 6720 (BEAKER) (test code = [place] Braulio [facility], 1538) 87009: Corporate Affairs Manager/Techni herson ID = [id number] for Barb Martins Platelet Aggregation: Drug [id number] 17:58:00 Test Item Value Reference Range Interpretation Comments Arachadonic Acid 75 % 63-89 (test code = 5993-1) Interpretation (test Normal code = 90276-5) arachidonic acid and ADP results. No X4C18-pjnqp or aspirin-like drug effect. Pathologist: (test Arnav Rouse, code = 2621) Sabine (electonic signature) Platelets (test code 349 See_Comment [Autom ated = 2654) message] The system which generated this result transmitted reference range : 150 - 450 K/CU MM. The referen ce range was not used to interpr et this result as normal/abnormal . ADP (test code = 74 % 62-100 26034-3) Platelet Rich Plasma 290 See_Comment [Autom ated (test code = 2134) message] The system which generated this result transmitted reference range : 200 - 300 k/cu mm. The referen ce range was not used to interpr et this result as normal/abnormal . BASIA (test code = BASIA) Platelet function studies by aggregation methodology on samples with platelet count <75,000/CU MM are unreliable; platelet function assessment should not be based on a single test.Corporate Affairs Manager ID - [id number] [facility] ValleyPLATELET AGGREGATION: DRUG [id number] 17:58:00 Test Item Value Reference Range Interpretation Comments ARACHADONIC ACID 75 % 63-89 RESULT(BEAKER) (test code = 2138) PLATELET AGG DRUG Normal arachidonic INTERPRETATION (BEAKER) acid and ADP results. (test code = 2408) No [id number] or aspirin-like drug effect. [id number] Arnav Rouse M.D. (BEAKER) (test code = (electonic signature) 0384) PLATELET COUNT AGG 349 K/CU MM 150-450 (BEAKER) (test code = 2656) ADP (BEAKER) (test code 74 % 62-100 = 4654) PLATELET RICH 290 k/cu mm 200-300 PLASMA(BEAKER) (test code = 2134) Platelet function studies by aggregation methodology on samples with platelet count <75,000/CU MMare unreliable; platelet function assessment should not be based on a single test.Corporate Affairs Manager ID - [id number] 16:20:00 Test Item Value Reference Range Interpretation Comments POC-GLUCOSE METER 141 mg/dL 70-110 H : TESTED A T [facility] 6720 (BEAKER) (test code = [facility], 1538) 98431: Corporate Affairs Manager/Techni herson ID = [id number] for CHANDAN PADRON POCT-GLUCOSE [id number] 11:53:00 Test Item Value Reference Range Interpretation Comments POC-GLUCOSE METER 138 mg/dL 70-110 H : TESTED A T [facility] 6720 (BEAKER) (test code = [facility], 1538) 41640: Corporate Affairs Manager/Techni herson ID = [id number] for CHANDAN PADRON POCT-GLUCOSE [id number] 08:18:00 Test Item Value Reference Range Interpretation Comments POC-GLUCOSE METER 93 mg/dL 70-110 : TESTED A T [facility] 6720 (BEAKER) (test code = [facility] [place], 1538) 50910: Corporate Affairs Manager/Techni herson ID = [id number] for BARB QUEZADA [id number] 07:55:00 Test Item Value Reference Range Interpretation Comments MAGNESIUM (BEAKER) (test code = 1.8 mg/dL 1.6-2.6 627) Corporate Affairs Manager ID - JORGE ALBERTO CBASIC METABOLIC [id number] 07:55:00 Test Item Value Reference Range Interpretation [...] 697) EGFR (BEAKER) (test 91 mL/min/1.73 ESTIMA NICOLE GFR IS code = 1092) sq m NOT ACCURATE CREATININE CLEARANCE IN PREDICTING GLOMERULAR FILTRATION RATE . ESTIMATED GFR I S NOT APPLICABLE FOR DIALYSIS PATIEN TS. Corporate Affairs Manager ID - JORGE ALBERTO [id number] 07:33:00 Test Item Value Reference Range Interpretation Comments PTT (test code = 37.4 See_Comment H [Automated message] 11618-7) The system [employer] generated this result transmitted ref erence range: 22.5 - 3 6.0 seconds. The reference range was not used to int erpret this result as normal/abnormal . Lab Interpretation (test Abnormal code = 65439-4) [facility] 07:33:00 Test Item Value Reference Range Interpretation [...] 0-0 (BEAKER) (test code = 413) POCT-GLUCOSE [id number] 21:23:00 Test Item Value Reference Range Interpretation Comments POC-GLUCOSE METER 143 mg/dL 70-110 H : TESTED A T [facility] 6720 (BEAKER) (test code = [facility], 1538) 27534: Corporate Affairs Manager/Techni herson ID = [id number] for MAGALY GAMEZO POCT-GLUCOSE [id number] 17:01:00 Test Item Value Reference Range Interpretation Comments POC-GLUCOSE METER 143 mg/dL 70-110 H : TESTED A T [facility] 6720 (BEAKER) (test code = [facility], 1538) 62456: Corporate Affairs Manager/Techni herson ID = [id number] for TERELL GREENWOOD POC ACTIVATED CLOTTING [id number] 14:53:00 Test Item Value Reference Range Interpretation Comments Activated Clotting Time 257 sec : 74 -137 seconds, (test code = 441) Baseline: TESTED AT [address], [address]: Corporate Affairs Manager/Techni herson ID = [id number] for MARCOS PATEL, CHONG [id number] 14:53:00 Test Item Value Reference Range Interpretation Comments ACTIVATED CLOTTING TIME 257 sec : 74 -137 seconds, (BEAKER) (test code = Baseli ne: TESTED AT [facility]) [address], 770 [address]: Corporate Affairs Manager/Techni herson ID = [id number] for MARCOS PATEL, CHONG [id number] 14:12:00 Test Item Value Reference Range Interpretation Comments ACTIVATED CLOTTING TIME 235 sec : 74 -137 seconds, (BEAKER) (test code = Silvia ne: TESTED AT [facility]) [address], 770 30: Corporate Affairs Manager/Techni herson ID = [id number] for MARCOS PATEL, CHONG POCT-GLUCOSE [id number] 11:20:00 Test Item Value Reference Range Interpretation Comments POC-GLUCOSE METER 170 mg/dL 70-110 H : TESTED A T [place] [address] (BEAKER) (test code = [facility], 1538) 40185: Corporate Affairs Manager/Techni herson ID = [id number] for ZA VALA, ERANDY POCT-GLUCOSE [id number] 08:25:00 Test Item Value Reference Range Interpretation Comments POC-GLUCOSE METER 161 mg/dL 70-110 H : TESTED A T [place] [id number] (BEAKER) (test code = [facility], 1538) 33989: Corporate Affairs Manager/Techni herson ID = [id number] for ZA VALA, ERANDY [id number] 07:44:00 Test Item Value Reference Range Interpretation Comments MAGNESIUM (BEAKER) (test code = 1.8 mg/dL 1.6-2.6 627) Corporate Affairs Manager ID - JORGE ALBERTO [facility] METABOLIC [id number] 07:44:00 Test Item Value Reference Range Interpretation [...] 697) EGFR (BEAKER) (test 79 mL/min/1.73 ESTIMA NICOLE GFR IS code = 1092) sq m NOT ACCURATE CREATININE CLEARANCE IN PREDICTING GLOMERULAR FILTRATION RATE . ESTIMATED GFR I S NOT APPLICABLE FOR DIALYSIS PATIEN TS. Corporate Affairs Manager ID - JORGE ALBERTO [id number] 06:52:00 Test Item Value Reference Range Interpretation [...] WBC 0-0 (BEAKER) (test code = 413) [id number] 00:10:00 Test Item Value Reference Range Interpretation Comments PARTIAL THROMBOPLASTIN TIME 95.1 seconds 22.5-36.0 H (BEAKER) (test code = 760) POCT-GLUCOSE [id number] 21:24:00 Test Item Value Reference Range Interpretation Comments POC-GLUCOSE METER 223 mg/dL 70-110 H : TESTED A T [facility] 6720 (BEAKER) (test code = [facility] [place] [facility], 1538) 79537: Corporate Affairs Manager/Techni herson ID = [id number] for CRESENCIO BAH Vancomycin level, [id number] 19:47:00 Test Item Value Reference Range Interpretation Comments Vancomycin Tr (test code = 13.8 ug/mL 10-20 4092-3) BASIA (test code = BASIA) Corporate Affairs Manager ID - BS Lab Interpretation (test Normal code = 95039-3) [facility]AN[facility] LEV[facility], [id number] 19:47:00 Test Item Value Reference Range Interpretation Comments VANCOMYCIN TROUGH (BEAKER) (test 13.8 ug/mL 10.0-20.0 code = 522) Corporate Affairs Manager ID - [id number] 17:17:00 Test Item Value Reference Range Interpretation Comments PARTIAL THROMBOPLASTIN TIME 37.4 seconds 22.5-36.0 H (BEAKER) (test code = 760) POCT-GLUCOSE [id number] 16:57:00 Test Item Value Reference Range Interpretation Comments POC-GLUCOSE METER 193 mg/dL 70-110 H : TESTED A T [facility] 6720 (BEAKER) (test code = [facility], 1538) 56701: Corporate Affairs Manager/Techni herson ID = [id number] for PADRONCHANDAN, FOOT, MIN 3 VIEWS, [id number] 13:05:00Reason for exam:->s/p debridementFINAL REPORT CLINICAL HISTORY: s/p debridement TECHNIQUE: 3 views of the right foot COMPARISON: 12/01/2019 IMPRESSION: 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 There is gauze packing the soft tissue defect. The remaining bones appear intact. Signed: Pollo Cortez MDReport Verified Date/Time: 12/02/2019 13:05:47 Reading Location: [facility] Radiology Reading Room POCT-GLUCOSE [id number] 12:35:00 Test Item Value Reference Range Interpretation Comments POC-GLUCOSE METER 216 mg/dL 70-110 H : TESTED A T [facility] 6720 (BEWiredBenefits) (test code = [facility] [place], 1538) 01942: Corporate Affairs Manager/Techni herson ID = [id number] for FINESSE MERCEDES Arterial doppler leg, [id number] 11:50:13Ejection FractionSLEH ECHO HEARTLAB MKCKESSON CPACSRight Impression1. The common [...] + + + + + + !Prox ECONOMIC ADVISER ! !0 ! !Absent ! + + + + + + !Mid ECONOMIC ADVISER ! !0 ! !Absent ! + + +-- + + + !Dist ECONOMIC ADVISER ! !0 ! !Absent ! + + [...] Study 12/01/2019 LITA Age 74 Visit Number [id number] Gender Female Accession Number [id number] Date of 1945 Referring Suzanne Jenkins, Room Number 1019 Physician Xerox Machine Operator Chandler Alanis Interpreting Tarah Balderas Lucretia Physician [...] + + + + + + !Prox ECONOMIC ADVISER ! !0 ! !Absent ! + + +---- + + + !Mid ECONOMIC ADVISER ! !0 ! !Absent ! + + + + + + !Dist ECONOMIC ADVISER ! !0! !Absent ! + + + + + [...] ! + + + + + +[facility](Ankle/Brachial Index)2019-12-02 11:49:57Ejection [facility] ECHO HEARTLAB MKCKESSON CPACSRight Impression1. The posterior [...] arterial duplex examination. Signature Electronically signed by Taarh Balderas MD(Interpreting physician)on 12/02/2019 11:49 AM Velocities are measured in cm/s ; Diameters are measured in cm Interface, External Ris In - 12/02/2019 11:50 AM CDTPV LAB - Lower Extremity Arterial Procedure Demographics Patient Name DANNA ACUNA Dateof Study 12/01/2019 LITA Age 74 Visit Number [id number] Gender Female Accession Number [id number] Date of 1945 Referring Suzanne Jenkins, Room Number 1019 Physician DO Xerox Machine Operator Chandler Alanis Interpreting MENDOZA SheltonS Physician ProcedureType of Study: Extremities Arteries: Lower [...] in cm/s ; Diameters are measured in [facility] POCT-GLUCOSE [id number] 09:24:00 Test Item Value Reference Range Interpretation Comments POC-GLUCOSE METER 232 mg/dL 70-110 H : TESTED A T [facility] 6720 (RICK) (test code = [place] [facility], 1538) 69471: Corporate Affairs Manager/Techni herson ID = [id number] for VASHTI LINK Hemoglobin [id number] 08:08:00 Test Item Value Reference Range Interpretation Comments Hemoglobin A1C (test code = 4548-4) 10.0 % 4.3-6.1 H Lab Interpretation (test code = Abnormal 29771-2) [facility]MO[facility] [id number] 08:08:00 Test Item Value Reference Range Interpretation Comments HEMOGLOBIN A1C (BEAKER) (test code = 10.0 % 4.3-6.1 H 368) POCT-GLUCOSE [id number] 05:46:00 Test Item Value Reference Range Interpretation Comments POC-GLUCOSE METER 239 mg/dL 70-110 H : TESTED A T [facility] 6720 (BEAKER) (test code = [place], 1538) 46195: Corporate Affairs Manager/Techni herson ID = [id number] for CRESENCIO BAH, [id number] 02:14:00 Test Item Value Reference Range Interpretation Comments ABO Grouping (test code = 2588) O Rh Factor (test code = 2589) POS [facility] and screen, [id number] 02:08:00 Test Item Value Reference Range Interpretation Comments ABO/RH AUTOMATED (BEAKER) (test O POSITIVE code = 2260) Ab Scrn (test code = 890-4) NEGATIVE [id number] 01:51:00 Test Item Value Reference Range Interpretation Comments MAGNESIUM (BEAKER) (test code = 1.8 mg/dL 1.6-2.6 627) Corporate Affairs Manager ID - LINDSAY WBASIC METABOLIC [id number] 01:51:00 Test Item Value Reference Range Interpretation [...] 697) EGFR (BEAKER) (test 72 mL/min/1.73 ESTIMA NICOLE GFR IS code = 1092) sq m NOT ACCURATE CREATININE CLEARANCE IN PREDICTING GLOMERULAR FILTRATION RATE . ESTIMATED GFR I S NOT APPLICABLE FOR DIALYSIS PATIEN TSKaran Corporate Affairs Manager ID Bryant MONTOYA [id number] 01:42:00 Test Item Value Reference Range Interpretation [...] 0-0 (BEAKER) (test code = 413) POCT-GLUCOSE [id number] 21:29:00 Test Item Value Reference Range Interpretation Comments POC-GLUCOSE METER 222 mg/dL 70-110 H : TESTED A T [facility] 6720 (BEAKER) (test code = [place], 1538) 83310: Corporate Affairs Manager/Techni herson ID = [id number] for CRESENCIO BAH [id number] 19:59:00 Test Item Value Reference Range Interpretation Comments PARTIAL THROMBOPLASTIN TIME 76.3 seconds 22.5-36.0 H (RICK) (test code = 760) POCT-GLUCOSE [id number] 17:25:00 Test Item Value Reference Range Interpretation Comments POC-GLUCOSE METER 259 mg/dL 70-110 H : TESTED A T [facility] 6720 (RICK) (test code = [place] [facility], 1538) 74951: Corporate Affairs Manager/Techni herson ID = [id number] for HOMERO VALERIO RAD, FOOT, MIN 3 VIEWS, [id number] 15:46:00Reason for exam:->gangrene FINAL REPORT CLINICAL HISTORY: [...] Cortez MDReport Verified Date/Time: 12/01/2019 15:46:27Reading Location: [facility] Radiology Reading Room SARS-COV2/RT-PCR ([facility])2019-12-01 14:10:00 Test Item Value Reference Range Interpretation Comments SARS-COV2/RT-PCR (test Not Detected Not Detected, Negative code = 6896170) SARS-COV-[address] [facility] (test code = 7826159) Negative results do not preclude SARS-CoV-2 infection [...] of the Act.Fact Sheet for Healthcare Pro viders:https://www.Phokki/Documents/Xpert%20Xpress%20SARS%20CoV-2/Fact%20Sh eets/302-3802%48CMQS-QIZ-4%20HEALTHCARE%20PROVIDERS%20FACT%20SHEET.pdfFact Sheet for Healthcare Patients:https://www.Zenfolio/Documents/Xpert%20Xpress%20SARS%20CoV-2/Fact%20Sheets/302-3801%20SARS-COV -2%20PATIENT%20FACT%20SHEET.pdfPerforming Laboratory:[address] [place], [place] [id number] 12:34:00 Test Item Value Reference Range Interpretation Comments PARTIAL THROMBOPLASTIN TIME 47.2 seconds 22.5-36.0 H (RICK) (test code = 760) POCT-GLUCOSE [id number] 12:24:00 Test Item Value Reference Range Interpretation Comments POC-GLUCOSE METER 185 mg/dL 70-110 H : Notified RN/MD: (RICK) (test code = TESTED AT [facility] 6720 1538) [facility], [address]: Corporate Affairs Manager/Techni herson ID = [id number] for HOMERO VALERIO C-Reactive [id number] 06:04:00 Test Item Value Reference Range Interpretation Comments CRP (test code = 676) 13.79 mg/dL 0-0.5 H BASIA (test code = BASIA) Corporate Affairs Manager ID - PIAYA L Lab Interpretation (test Abnormal code = 48266-0) [facility] METABOLIC [id number] 06:04:00 Test Item Value Reference Range Interpretation [...] 347) EGFR (BEAKER) (test 68 mL/min/1.73 ESTIMA NICOLE GFR IS code = 1092) sq m NOT ACCURATE CREATININE CLEARANCE IN PREDICTING GLOMERULAR FILTRATION RATE . ESTIMATED GFR I S NOT APPLICABLE FOR DIALYSIS PATIEN TS. Corporate Affairs Manager ID - PIMICHI LC-REACTIVE [id number] 06:04:00 Test Item Value Reference Range Interpretation Comments C-REACTIVE PROTEIN (BEAKER) (test 13.79 mg/dL 0.00-0.50 H code = 676) Corporate Affairs Manager ID - PIMICHI [id number] 05:28:00 Test Item Value Reference Range Interpretation Comments PARTIAL THROMBOPLASTIN TIME 35.0 seconds 22.5-36.0 (BEAKER) (test code = 760) 6 hours after starting heparin infusion and as indicated per sliding scaleAPTT 2019-12-01 05:27:00 Test Item Value Reference Range Interpretation Comments PARTIAL THROMBOPLASTIN TIME 33.8 seconds 22.5-36.0 (BEAKER) (test code = 760) Prior to initiating heparinPROTHROMBIN TIME/[id number] 05:26:00 Test Item Value Reference Range Interpretation [...] to initiating heparinCBC W/PLT COUNT & AUTO [id number] 05:12:00 Test Item Value Reference Range Interpretation [...] % 0-1 PERCENT (BEAKER) (test code = 2981)
[2020-09-24 17:07] LABS: Absolute Lymphocytes (CBC) 2.7 K/uL (0.7-4.9); Basophils % 0.7 % (0-1.3); Hematocrit 34.9 % (36.0-45.0); Lymphocytes % 27.5 % (15.3-44.8); MPV 8.4 fL (7.6-11.3); RBC Red Blood Cell Count 3.99 M/uL (3.86-4.86)
[2020-09-24] MEDS ORDERED: ASPIRIN 81 MG CHEWABLE TABLET ONE (17:11)
[2020-09-24] MEDS ORDERED: MORPHINE 2 MG/ML SYR ONE (17:11)
[2020-09-24] MEDS ORDERED: METOPROLOL TAR 25 MG TAB ONE (17:12)
[2020-09-24] MEDS ORDERED: ENOXAPARIN 60 MG/0.6 ML SQ ONE (17:12)
[2020-09-24] MEDS ORDERED: FAMOTIDINE 20 MG/2 ML VIAL IV ONE (17:12)
[2020-09-24] MEDS ORDERED: ONDANSETRON 4 MG/2 ML VIAL ONE (17:12)
[2020-09-24 17:26] LABS: Protime INR 0.94
--- NOTE | 2020-09-24 17:36 | ER ---
Nurse's Notes [facility] Name: Maria Isabel Stacy Age: 75 yrs Sex: Female : 1945 Arrival Date: 09/24/2020 Time: 16:21 Bed 7 Private MD: Diagnosis: Other chest pain;Essential (primary) hypertension;Type 2 diabetes mellitus Presentation: 09/24 16:38 Chief complaint: Patient states: L shoulder, chest and neck pain that began at midnight ss last night. Pain is worse with movement. Coronavirus screen: Client denies travel out of the [place] in the last 14 days. Ebola Screen: Patient denies exposure to infectious person. Patient denies travel to an Ebola-affected area in the 21 days before illness onset. Initial Sepsis Screen: Does the patient meet any 2 criteria? No. Patient's initial sepsis screen is negative. Does the patient have a suspected source of infection? No. Patient's initial sepsis screen is negative. Risk Assessment: Do you want to hurt yourself or someone else? Patient reports no desire to harm self or others. Onset of symptoms was September 24, 2020. 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 - Social history:: Smoking status: Patient denies any tobacco usage or history of. - Family history:: not pertinent. - Hospitalizations: : No recent hospitalization is reported. Screenin:40 Abuse screen: Denies threats or abuse. Denies injuries from another. Nutritional sv screening: No deficits noted. Tuberculosis screening: No symptoms or risk factors identified. Fall Risk None identified. Assessment: 16:41 Reassessment: Received VO from Dr Pelayo for EKG and cardiac workup. sv 16:50 General: Appears in no apparent distress. uncomfortable, well groomed, well developed, sv Behavior is calm, cooperative, appropriate for age. Pain: Complains of pain in back and left arm and left breast and left clavicle and left shoulder Pain does not radiate. Pain currently is 10 out of 10 on a pain scale. Quality of pain is described as sharp, Pain began today Is intermittent. Neuro: Level of Consciousness is awake, alert, obeys commands, Oriented to person, place, time, situation, Moves all extremities. Full function Speech is normal. Cardiovascular: Patient's skin is warm and dry. Rhythm is sinus rhythm. Respiratory: Airway is patent Respiratory effort is even, unlabored, Respiratory pattern is regular, symmetrical. Derm: Skin is intact, Skin is pink, warm \T\ dry. 17:03 Reassessment: Patient appears in no apparent distress at this time. No changes from sv previously documented assessment. Patient and/or family updated on plan of care and expected duration. Pain level reassessed. Patient is alert, oriented x 3, equal unlabored respirations, skin warm/dry/pink. 18:31 Reassessment: Patient appears in no apparent distress at this time. No changes from sv previously documented assessment. Patient and/or family updated on plan of care and expected duration. Pain level reassessed. Patient is alert, oriented x 3, equal unlabored respirations, skin warm/dry/pink. Vital Signs: 16:38 BP 134 / 76 RA Sitting (auto/reg); Pulse 66; Resp 18; Pulse Ox 100% on R/A; Weight sv 68.95 kg; Height 5 ft. 2 in. (157.48 cm); Pain 10/10; 16:54 BP 137 / 67 LA Sitting (auto/reg); Pulse 63; Temp 98; sv 17:00 BP 154 / 70; Pulse 67; Resp 15; Pulse Ox 99% on R/A; sv 17:32 Pain 4/10; sv 19:24 BP 117 / 59; Pulse 48; Resp 13; Pulse Ox 100% on R/A; mg2 20:55 BP 107 / 92; Pulse 61; Resp 15; Pulse Ox 98% on R/A; rv 16:38 Body Mass Index 27.80 (68.95 kg, 157.48 cm) sv ED Course: 16:21 Patient arrived in ED. ds1 16:38 Imtiaz Pelayo MD is Attending Physician. lizandro 16:39 Nette Basurto RN is Primary Nurse. sv 16:39 EKG done, by ED staff, reviewed by Imtiaz Pelayo MD. Patient maintains SpO2 saturation sv greater than 95% on room air. 16:40 Triage completed. ss 16:40 Patient has correct armband on for positive identification. Bed in low position. Call sv light in reach. Adult w/ patient. equipment monitor phototypesetting on. Pulse ox on. NIBP on. Door closed. Head of bed elevated. 16:41 Arm band placed on right wrist. ss 16:47 ED physician to see patient. sv 16:52 Basic Metabolic Panel Sent. mh5 16:52 Basic Metabolic Panel Sent. 5 16:52 CBC with Diff Sent. 5 16:52 LFT's Sent. 5 16:52 Magnesium Sent. 5 16:52 NT PRO-BNP Sent. 5 16:52 PT-INR Sent. 5 16:52 Troponin (emerg Dept Use Only) Sent. 5 16:53 Initial lab(s) drawn, by la, sent to lab. Inserted saline lock: 20 gauge in right 5 forearm, using aseptic technique. Blood collected. 17:18 XRAY Chest (1 view) In Process Unspecified. EDMS 17:35 Debra Nobles MD is Hospitalizing Provider. lizandro 18:30 Patient moved back from CT. sv 18:58 Inserted saline lock: 22 gauge in left forearm, using aseptic technique. 5 19:00 COVID swab sent to lab. 5 19:09 Primary Nurse role handed off by Nette Basurto, RN sv 19:24 Marcell Palacios, RN is Primary Nurse. mg2 20:55 No provider procedures requiring assistance completed. IV is patent, with fluids rv infusing freely, Patient admitted, IV remains in place. Administered Medications: 17:03 Drug: Zofran (Ondansetron) 4 mg Route: IVP; Site: right forearm; sv 17:32 Follow up: Response: No adverse reaction sv 17:05 Drug: Pepcid (famotidine) 20 mg Route: IVP; Site: right forearm; sv 17:32 Follow up: Response: No adverse reaction sv 17:07 Drug: morphine 2 mg {Note: rass1.} Route: IVP; Site: right forearm; sv 17:32 Follow up: Pain 4/10 Adult; Response: No adverse reaction; RASS: Alert and Calm (0) sv 17:08 Drug: Aspirin Chewable Tablet 324 mg Route: PO; sv 17:32 Follow up: Response: No adverse reaction sv 17:08 Drug: Lopressor 25 mg Route: PO; sv 17:32 Follow up: Response: No adverse reaction sv 17:08 Drug: Lovenox (enoxaparin) 1 mg/kg Route: Sub-Q; Site: right lower abdomen; sv 17:32 Follow up: Response: No adverse reaction sv Outcome: 17:35 Decision to Hospitalize by Provider. lizandro 20:56 Admitted to Tele accompanied by tech, via wheelchair, room 424, Other SBAR, EKG Report rv called to CHARLENE MIRANDA 20:56 Condition: good 20:56 Instructed on the need for admit. 20:57 Patient left the ED. rv Signatures: Dispatcher [employer] Nette Barber RN RN Imtiaz Chan MD MD cha Sanford, Janet ds1 Lorena Ruiz RN RN ss Martinez, Maria [facility] Marcell Palacios RN RN [facility] Rajinder Vega RN RN rv Corrections: (The following items were deleted from the chart) 16:43 16:41 Reassessment: Received VO from Dr Pelayo for EKG sv sv 17:09 16:38 BP 134 / 76; Pulse 66bpm; Resp 18bpm; Pulse Ox 100% RA; 68.95 kg; Height 5 ft. 2 sv in.; BMI: 27.8; Pain 10/10; ss 18:37 16:54 BP 137 / 67 Sitting Auto L Arm Regular; Pulse 63bpm; sv sv
--- NOTE | 2020-09-24 17:37 | EDPHYS ---
Physician Documentation [facility] Name: Maria Isabel Stacy Age: 75 yrs Sex: Female : 1945 Arrival Date: 09/24/2020 Time: 16:21 Bed 7 Private MD: ED Physician Imtiaz Pelayo HPI: 09/24 16:51 This 75 yrs old Female presents to ER via Ambulatory with complaints of Chest lizandro Tightness, L side pain. 16:51 The patient or guardian reports chest pain that is located primarily in the substernal lizandro area, anterior chest wall, left. Onset: 16 day(s) ago. The pain does not radiate. Associated signs and symptoms: Pertinent positives: chest wall , left arm and left posterior thoracic pain. no trauma. 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 - Social history:: Smoking status: Patient denies any tobacco usage or history of. - Family history:: not pertinent. - Hospitalizations: : No recent hospitalization is reported. ROS: 16:51 Constitutional: Negative for fever, chills, and weight loss, Eyes: Negative for injury, lizandro pain, redness, and discharge, ENT: Negative for injury, pain, and discharge, Neck: Negative for injury, pain, and swelling, Respiratory: Negative for shortness of breath, cough, wheezing, and pleuritic chest pain, Abdomen/GI: Negative for abdominal pain, nausea, vomiting, diarrhea, and constipation, Back: Negative for injury and pain, : Negative for injury, bleeding, discharge, and swelling, MS/Extremity: Negative for injury and deformity, Skin: Negative for injury, rash, and discoloration, Neuro: Negative for headache, weakness, numbness, tingling, and seizure, Psych: Negative for depression, anxiety, suicide ideation, homicidal ideation, and hallucinations, Allergy/Immunology: Negative for hives, rash, and allergies, Endocrine: Negative for neck swelling, polydipsia, polyuria, polyphagia, and marked weight changes, Hematologic/Lymphatic: Negative for swollen nodes, abnormal bleeding, and unusual bruising. 16:51 Cardiovascular: Positive for chest pain, of the left clavicle, anterior aspect of left upper chest, left lateral posterior chest, left lateral anterior chest and left breast. Exam: 16:51 Constitutional: This is a well developed, well nourished patient who is awake, alert, lizandro and in no acute distress. Head/Face: Normocephalic, atraumatic. Eyes: Pupils equal round and reactive to light, extra-ocular motions intact. Lids and lashes normal. Conjunctiva and sclera are non-icteric and not injected. Cornea within normal limits. Periorbital areas with no swelling, redness, or edema. ENT: Nares patent. No nasal discharge, no septal abnormalities noted. Tympanic membranes are normal and external auditory canals are clear. Oropharynx with no redness, swelling, or masses, exudates, or evidence of obstruction, uvula midline. Mucous membranes moist. Neck: Trachea midline, no thyromegaly or masses palpated, and no cervical lymphadenopathy. Supple, full range of motion without nuchal rigidity, or vertebral point tenderness. No Meningismus. Cardiovascular: Regular rate and rhythm with a normal S1 and S2. No gallops, murmurs, or rubs. Normal PMI, no JVD. No pulse deficits. Respiratory: Lungs have equal breath sounds bilaterally, clear to auscultation and percussion. No rales, rhonchi or wheezes noted. No increased work of breathing, no retractions or nasal flaring. Abdomen/GI: Soft, non-tender, with normal bowel sounds. No distension or tympany. No guarding or rebound. No evidence of tenderness throughout. Back: No spinal tenderness. No costovertebral tenderness. Full range of motion. Skin: Warm, dry with normal turgor. Normal color with no rashes, no lesions, and no evidence of cellulitis. MS/ Extremity: Pulses equal, no cyanosis. Neurovascular intact. Full, normal range of motion. Neuro: Awake and alert, GCS 15, oriented to person, place, time, and situation. Cranial nerves II-XII grossly intact. Motor strength 5/5 in all extremities. Sensory grossly intact. Cerebellar exam normal. Normal gait. Psych: Awake, alert, with orientation to person, place and time. Behavior, mood, and affect are within normal limits. 16:51 Chest/axilla: Inspection: normal, no acute changes, Palpation: tenderness, that is mild, that is moderate, of the left clavicle, anterior aspect of left upper chest, left lateral posterior chest, left lateral anterior chest and left breast, Axilla: are normal, no acute changes, Breasts: are normal, no acute changes, Lymph nodes: lymphadenopathy is not appreciated. 18:50 ECG was reviewed by the Attending Physician. lizandro 19:21 Skin: no rash present. lizandro Vital Signs: 16:38 BP 134 / 76 RA Sitting (auto/reg); Pulse 66; Resp 18; Pulse Ox 100% on R/A; Weight sv 68.95 kg; Height 5 ft. 2 in. (157.48 cm); Pain 10/10; 16:54 BP 137 / 67 LA Sitting (auto/reg); Pulse 63; Temp 98; sv 17:00 BP 154 / 70; Pulse 67; Resp 15; Pulse Ox 99% on R/A; sv 17:32 Pain 4/10; sv 19:24 BP 117 / 59; Pulse 48; Resp 13; Pulse Ox 100% on R/A; mg2 20:55 BP 107 / 92; Pulse 61; Resp 15; Pulse Ox 98% on R/A; rv 16:38 Body Mass Index 27.80 (68.95 kg, 157.48 cm) sv MDM: 16:39 Patient medically screened. lizandro 16:55 Differential diagnosis: abnormal EKG, acute myocardial infarction, anxiety, coronary lizandro artery disease chest wall pain, costochondritis, herpes zoster, hiatal hernia, pancreatitis, peptic ulcer disease, pneumonia, pneumothorax, pulmonary embolus, stable angina, unstable angina. HEART Score: History: Moderately Suspicious (1), ECG: Normal (0), Age: > or = 65 years (2), Risk Factors: > or = 3 Risk factors for atherosclerotic disease (2), [Hypercholesterolemia] [Hypertension] [DM] [+ Family HX] [Obesity] Troponin: < or = 1 x Normal Limit (0). The patient was given aspirin in the Emergency Department. The patient's deep vein thrombosis risk score was calculated as follows: Total Score: 0. This patient was found to be at low risk for a deep vein thrombosis by using the Well's assessment criteria. The patient's pulmonary embolism risk score was calculated as follows: Total Score: 0-2 points. This patient was found to be at low risk for a pulmonary embolism by using the Well's assessment criteria. REBEKA Risk Score: 1 - patient's age is greater or equal to 65 years, 1 - Three or more CAD risk factors, 1 - Recent [<24hrs] Severe Angina, TOTAL SCORE = 3. Data reviewed: vital signs, nurses notes, lab test result(s), EKG, radiologic studies, plain films. 09/24 16:43 Order name: Basic Metabolic Panel 09/24 16:43 Order name: CBC with Diff; Complete Time: 17:33 sv 09/24 16:43 Order name: LFT's; Complete Time: 18:02 09/24 16:43 Order name: Magnesium; Complete Time: 18:02 09/24 16:43 Order name: NT PRO-BNP; Complete Time: 18:02 09/24 16:43 Order name: PT-INR; Complete Time: 17:33 09/24 16:43 Order name: Troponin (emerg Dept Use Only); Complete Time: 18:02 09/24 16:43 Order name: Basic Metabolic Panel; Complete Time: 18:02 [facility] 09/24 17:34 Order name: COVID-19 : Document "Date of Symptom Onset" if Symptomatic. [facility] 09/24 17:57 Order name: Basic Metabolic Panel [facility] 09/24 17:57 Order name: Basic Metabolic Panel [facility] 09/24 17:57 Order name: Lipid Profile [facility] 09/24 17:57 Order name: Lipid Profile [facility] 09/24 17:57 Order name: Troponin I [facility] 09/24 16:41 Order name: EKG; Complete Time: 16:41 09/24 16:43 Order name: XRAY Chest (1 view); Complete Time: 18:50 09/24 17:37 Order name: CT Aorta for Dissection [facility] 09/24 17:57 Order name: CONS Physician Consult [facility] 09/24 17:57 Order name: Heart Healthy [facility] 09/24 17:57 Order name: Echo with Doppler [facility] 09/24 17:57 Order name: Troponin I [facility] 09/24 17:57 Order name: Troponin I [facility] 09/24 18:34 Order name: CT; Complete Time: 18:50 [facility] 09/24 20:21 Order name: SARS-COV-2 RT PCR EDMS 09/24 16:41 Order name: EKG - Nurse/Tech; Complete Time: 16:41 sv 09/24 16:43 Order name: Cardiac monitoring; Complete Time: 16:43 sv 09/24 16:43 Order name: IV Saline Lock; Complete Time: 16:53 sv 09/24 16:43 Order name: Labs collected and sent; Complete Time: 16:53 sv 09/24 16:43 Order name: O2 Per Protocol; Complete Time: 16:43 sv 09/24 16:43 Order name: O2 Sat Monitoring; Complete Time: 16:43 sv 09/24 16:50 Order name: Bilateral blood pressure; Complete Time: 17:07 lizandro 09/24 17:57 Order name: EKG Electrocardiogram EDMS 09/24 17:57 Order name: EKG Electrocardiogram EDMS EC:50 Rate is 65 beats/min. Rhythm is regular. QRS [place] is Normal. [place] interval is normal. QRS lizandro interval is normal. QT interval is normal. No Q waves. T waves are Normal. No ST changes noted. Clinical impression: Normal ECG and No evidence of ischemia. Interpreted by me. Reviewed by me. Administered Medications: 17:03 Drug: Zofran (Ondansetron) 4 mg Route: IVP; Site: right forearm; sv 17:32 Follow up: Response: No adverse reaction sv 17:05 Drug: Pepcid (famotidine) 20 mg Route: IVP; Site: right forearm; sv 17:32 Follow up: Response: No adverse reaction sv 17:07 Drug: morphine 2 mg {Note: rass1.} Route: IVP; Site: right forearm; sv 17:32 Follow up: Pain 4/10 Adult; Response: No adverse reaction; RASS: Alert and Calm (0) sv 17:08 Drug: Aspirin Chewable Tablet 324 mg Route: PO; sv 17:32 Follow up: Response: No adverse reaction sv 17:08 Drug: Lopressor 25 mg Route: PO; sv 17:32 Follow up: Response: No adverse reaction sv 17:08 Drug: Lovenox (enoxaparin) 1 mg/kg Route: Sub-Q; Site: right lower abdomen; sv 17:32 Follow up: Response: No adverse reaction sv Disposition: 09/24/20 17:35 Hospitalization ordered by Debra Nobles for Observation. Preliminary diagnosis are Other chest pain, Essential (primary) hypertension, Type 2 diabetes mellitus. - Bed requested for Telemetry/MedSurg (observation). - Status is Observation. rv - Condition is Fair. - Problem is new. - Symptoms have improved. Signatures: Dispatcher [employer] EDNette Suh, RN RN Jessie Germain RN RN dw Anderson, Corey, MD MD cha Smirch, Shelby, RN RN ss Vicente, Ronaldo, RN RN rv Corrections: (The following items were deleted from the chart) 20:24 17:35 Hospitalization Ordered by Debra Nobles MD for Observation. Preliminary dw diagnosis is Other chest pain; Essential (primary) hypertension; Type 2 diabetes mellitus. Bed requested for Telemetry/MedSurg (observation). Status is Observation. Condition is Fair. Problem is new. Symptoms have improved. lizandro 20:57 20:24 09/24/2020 17:35 Hospitalization Ordered by Debra Nobles MD for Observation. rv Preliminary diagnosis is Other chest pain; Essential (primary) hypertension; Type 2 diabetes mellitus. Bed requested for Telemetry/MedSurg (observation). Status is Observation. Condition is Fair. Problem is new. Symptoms have improved. dw
[2020-09-24 17:43] LABS: ALT/SGPT 36 U/L (12-78); AST/SGOT 25 U/L (15-37); Albumin 3.2 g/dL (3.4-5.0); Alkaline Phosphatase 127 U/L (45-117); BUN Blood Urea Nitrogen 20 mg/dL (7-18); Bicarbonate 27 mmol/L (21-32); Bilirubin Direct 0.2 mg/dL (0-0.2); Glucose Level 261 mg/dL (74-106); Magnesium 2.1 mg/dL (1.8-2.4); NT PRO-BNP 556 pg/mL (<125); Potassium 3.9 mmol/L (3.5-5.1); Sodium Level 138 mmol/L (136-145); Troponin (Emerg Dept Use Only) < 0.02 ng/mL (0.0-0.045)
[2020-09-24] MEDS ORDERED: ALPRAZOLAM 0.25 MG TABLET PO PRN (17:54)
[2020-09-24] MEDS ORDERED: ACETAMINOPHEN 500 MG TAB PO PRN (17:54)
[2020-09-24] MEDS ORDERED: MORPHINE 4 MG/ML SYR IV PRN (17:54)
[2020-09-24] MEDS ORDERED: GLUCAGON 1 MG/VIAL IM PRN (17:56)
[2020-09-24] MEDS ORDERED: TRAMADOL HCL 50 MG TAB PO PRN (17:56)
--- NOTE | 2020-09-24 18:06 | RAD REPORT ---
EXAM DESCRIPTION: RAD - Chest Single View - 09/24/2020 5:20 pm CLINICAL HISTORY: CHEST PAIN Chest pain. COMPARISON: <Comparisons> FINDINGS: Portable technique limits examination quality. The lungs are grossly clear. The heart is normal in size. No displaced fractures. IMPRESSION: No acute intrathoracic process suspected.
[2020-09-24] MEDS ORDERED: D50W 25 GM/50 ML VIAL IV PRN (18:15)
--- NOTE | 2020-09-24 18:34 | RAD REPORT ---
EXAM DESCRIPTION: CT - Angio Aorta For Dissection - 09/24/2020 6:21 pm CLINICAL HISTORY: Chest pain radiating to the back. CHEST PAIN COMPARISON: No comparisons TECHNIQUE: CT angiography of the aorta was performed with MIPs. All CT scans are performed using dose optimization technique as appropriate and may include automated exposure control or mA/KV adjustment according to patient size. FINDINGS: A left aortic arch is present with normal branching pattern of the great vessels.No acute aortic finding is seen such as aneurysm, penetrating ulcer or dissection. The celiac axis, SMA, ISAAC and renal arteries are widely patent. No evidence of pulmonary embolism. Mild interstitial pulmonary edema. The liver demonstrates no focal mass or biliary dilatation.The spleen, pancreas, adrenal glands and k idneys are within normal limits for arterial phase imaging. No bowel obstruction, free fluid or abscess.Sigmoid diverticulosis coli is present without diverticul itis. Moderate retained stool is present.No pathologic enlarged lymphadenopathy identified.Normal titi endix. Trace free fluid is seen in the pelvis. Moderate lumbar degenerative changes. IMPRESSION: No acute aortic finding is demonstrated.
[2020-09-24] MEDS ORDERED: INSULIN GLARGINE 100 UNITS/ML SQ SCH (21:00)
[2020-09-24] MEDS ORDERED: ATORVASTATIN 40 MG TAB PO SCH (21:00)
[2020-09-24] MEDS ORDERED: METOPROLOL TAR 25 MG TAB PO SCH (21:00)
--- NOTE | 2020-09-24 21:25 | P.HP ---
Certification for Inpatient Patient admitted to: Observation With expected LOS: <2 Midnights Patient will require the following post-hospital care: None Practitioner: I am a practitioner with admitting privileges, knowledge of patient current condition, hospital course, and medical plan of care. Services: Services provided to patient in accordance with Admission requirements found in Title 42 Section 412.3 of the Code of Federal Regulations <Jacinto Gonzalez - Last Filed: 09/24/20 21:20> Patient History Date of Service: 09/24/20 Primary Care Provider: Arian Reason for admission: chest pain History of Present Illness: Ms. Stacy is a 75 yo F with T2DM and HTN here today with 10/10 chest pain that started at midnight, waking her from sleep. It improved but then began again two hours later. She says the pain is in her chest radiating to her neck and down her left arm. She describes it as sharp and constant and that her left arm was numb. She reports diaphoresis. She says she had no relief with OTC analgesics, rubbing alcohol. This has never happened before. CXR and CT angio wnl. Initial trops negative. - Past Medical/Surgical History Diabetic: Yes -: HTN -: DM -: wrist and elbow surgery -: toe amputation -: R leg stent - Family History Father -: Heart disease Mother -: Diabetes - Social History Smoking Status: Never smoker Alcohol use: No CD- Drugs: No Caffeine use: Yes Place of Residence: Home <Jacinto Gonzalez - Last Filed: 09/24/20 21:20> Date of Service: 09/24/20 <Debra Nobles - Last Filed: 09/29/20 19:11> Allergies No Known Allergies Allergy (Verified 10/30/19 17:20) Home Medications: Aspirin Chewable [Aspirin Chewable*] 81 mg PO DAILY 10/31/19 Atorvastatin Calcium [Lipitor] 40 mg PO BEDTIME 10/31/19 Clopidogrel Bisulfate [Plavix*] 75 mg PO DAILY 10/31/19 Glipizide [Glipizide ER] 10 mg PO BIDAC 10/31/19 Lisinopril [Zestril] 10 mg PO DAILY 10/31/19 Pantoprazole [Protonix Tab*] 40 mg PO DAILY 10/31/19 Insulin Glargine Human [Lantus*] 5 units SQ BEDTIME #10 ml 11/01/19 traMADol HCL [Ultram*] 50 mg PO Q6H PRN #28 tab 11/01/19 Metoprolol Tartrate [Lopressor*] 25 mg PO BID #60 tab 09/25/20 Review of Systems General: Sweats, As per HPI Eyes: Unremarkable ENT: Unremarkable Respiratory: Unremarkable Cardiovascular: Chest Pain, As per HPI Gastrointestinal: Unremarkable Genitourinary: Unremarkable Musculoskeletal: Neck Pain, Arm Pain Integumentary: Unremarkable Neurological: Unremarkable Lymphatics: Unremarkable <Jacinto Gonzalez S - Last Filed: 09/24/20 21:20> Physical Examination - Physical Exam General: Alert, In no apparent distress, Oriented x3, Cooperative HEENT: Atraumatic, Normocephalic, PERRLA, Mucous membr. moist/pink, EOMI, Sclerae nonicteric Neck: Supple, 2+ carotid pulse no bruit, JVD not distended, No Thyromegaly, No LAD Respiratory: Clear to auscultation bilaterally, Normal air movement Cardiovascular: No edema, Normal pulses, Regular rate/rhythm, Normal S1 S2, No gallops, No rubs, No murmurs Capillary refill: <2 Seconds Gastrointestinal: Normal bowel sounds, Soft and benign, Non-distended, No ascites, No tenderness, No masses, No rebound, No guarding Musculoskeletal: No clubbing, No swelling, No contractures, No erythema, No tenderness, No warmth Integumentary: No rashes, No breakdown, No significant lesion, No tenderness/swelling, No erythema, No warmth, No cyanosis Neurological: Normal gait, Normal speech, Normal strength at 5/5 x4 extr, Normal tone, Sensation intact, Cranial nerves 3-12 intact, Normal affect Lymphatics: No axilla or inguinal lymphadenopathy - Studies Laboratory Data (last 24 hrs) 09/24/20 16:54: PT 10.8, INR 0.94 09/24/20 16:54: WBC 9.70, Hgb 11.7 L, Hct 34.9 L, Plt Count 270 09/24/20 16:54: Sodium 138, Potassium 3.9, BUN 20 H, Creatinine 0.72, Glucose 261 H, Magnesium 2.1, Total Bilirubin 1.0, AST 25, ALT 36, Alkaline Phosphatase 127 H <Jacinto Gonzalez - Last Filed: 09/24/20 21:20> Assessment and Plan - Problems (Diagnosis) (1) Type 2 diabetes mellitus Status: Chronic Qualifiers: Diabetes mellitus shelter insulin use: with shelter use Diabetes mellitus complication status: without complication Qualified Code(s): E11.9 - Type 2 diabetes mellitus without complications; Z79.4 - terminal clerk (current) use of insulin (2) Hypertension Status: Chronic Qualifiers: Hypertension type: essential hypertension Qualified Code(s): I10 - Essential (primary) hypertension (3) Chest pain Status: Acute Qualifiers: Chest pain type: unspecified Qualified Code(s): R07.9 - Chest pain, unspec ified - Plan cardiology consulted trend troponins and ekg BB, daily aspirin, lisinopril, morphine and NTG prn will continue to monitor BP Accuchecks and insulin to control BG Discharge Plan: Home Plan to discharge in: 24 Hours - Advance Directives Does patient have a Living Will: No Does patient have a Durable POA for Healthcare: No - Code Status/Comfort Care Code Status Assessed: Yes (full code) Critical Care: No Time Spent Managing Pts Care (In Minutes): 70 <Jacinto Gonzalez - Last Filed: 09/24/20 21:20> Date of Service: 09/24/20 Agree with plan of care as mentioned below. Patient has done well during hospital stay. Patient being ruled out for an acute coronary syndrome. Will discuss with cardiology regarding plan of care. <Debra Nobles - Last Filed: 09/29/20 19:11>
[2020-09-25 01:44] VITALS: BMI 24.4
[2020-09-25 03:58] LABS: Absolute Lymphocytes (CBC) 2.6 K/uL (0.7-4.9); Basophils % 0.4 % (0-1.3); Hematocrit 33.6 % (36.0-45.0); MPV 8.7 fL (7.6-11.3); RBC Red Blood Cell Count 3.85 M/uL (3.86-4.86)
[2020-09-25 04:22] LABS: BUN Blood Urea Nitrogen 21 mg/dL (7-18); Bicarbonate 30 mmol/L (21-32); Glucose Level 243 mg/dL (74-106); HDL Cholesterol 66 mg/dL (40-60); LDL Cholesterol, Calculated 55 (<130); Sodium Level 139 mmol/L (136-145); Troponin I < 0.02 ng/mL (0.0-0.045)
[2020-09-25] MEDS ORDERED: HOME MED 1 EA UNK (Glipizide [Glipizide Er] 10 MG Tab.Er.24) PO SCH (07:30)
[2020-09-25] MEDS ORDERED: ASPIRIN EC 81 MG TAB PO SCH (09:00)
[2020-09-25] MEDS ORDERED: METOPROLOL TAR 25 MG TAB PO SCH (09:00)
[2020-09-25] MEDS ORDERED: lisinopriL 10 MG TAB PO SCH (09:00)
[2020-09-25] MEDS ORDERED: PANTOPRAZOLE 40MG TABLET PO SCH (09:00)
[2020-09-25] MEDS ORDERED: ENOXAPARIN 40 MG/0.4 ML SQ SCH (09:00)
[2020-09-25] MEDS ORDERED: ASPIRIN 81 MG CHEWABLE TABLET PO SCH (09:00)
[2020-09-25] MEDS ORDERED: CLOPIDOGREL 75 MG TABLET PO SCH (09:00)
[2020-09-25 10:11] VITALS: O2SAT 99
--- NOTE | 2020-09-25 10:17 | EKG ---
Test Date: 2020-09-24 Test Time: 16:38:40 Belt Dresser: NAVYA MEASUREMENT RESULTS: Intervals: Rate: 65 [place]: 166 QRSD: 86 QT: 420 QTc: 436 [place]: P: -14 [place]: 166 QRS: 20 T: 62 INTERPRETIVE STATEMENTS: Sinus rhythm with premature atrial complexes in a pattern of bigeminy Septal infarct, age undetermined Abnormal ECG Compared to ECG 06/21/2020 16:06:56 Atrial premature complex(es) now present Myocardial infarct finding now present T-wave abnormality no longer present Electronically Signed On 09-25-20 10:15:21 CDT by Tramaine Ryan
[2020-09-25] MEDS: GLIPIZIDE S.A. 5 MG TAB PO SCH ×2 (10:32→17:14)
[2020-09-25 16:46] VITALS: BP 121/62; TEMP 98.1
--- NOTE | 2020-09-26 11:27 | CON ---
Date of Consultation: 09/25/[address] Nobles's service for chest pain on 09/24/2020. I saw the patient on 09/25/2020. Reason For Consultation: Chest pain. History Of Present Illness: Ms. Stacy is a 75-year-old woman, has a history of diabetes, dyslipide radha, peripheral arterial disease. 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 She has a h istory of hypertension, gastroesophageal reflux disease. Came in with left-sided upper chest pain ra diating to the left shoulder that is not exertional. She denied PND, orthopnea, pedal edema, palpita tions, or syncope. Her pain has lasted for about 2 days now. Past Medical History: As stated above. Allergies: NONE. Review of Systems: Negative. Social History: Negative. Family History: Noncontributory. Medications: Include aspirin, Protonix, Plavix, Lipitor, insulin, and Zestril. Physical Examination: Vital Signs: Stable, afebrile. HEENT: Negative. Neck: Supple with no bruit. Chest: Clear to auscultation and percussion. Cardiac: Revealed a regular rhythm and rate. No murmurs, gallops, or rubs. Abdomen: Benign. Extremities: Revealed no clubbing, cyanosis, or edema. She is status post amputation of right toes. Diagnostic Data: Her BNP was 556, glucose of 226. Troponin is negative and CT of the chest showed a left aortic arch, but no pulmonary embolus. Impression And Plan: Atypical chest pain in a patient who has diabetes, dyslipidemia, peripheral art erial disease, hypertension, very high risk for coronary artery disease. She has ruled out and she i s symptoms free now, and I am comfortable with her going home and have an outpatient echocardiogram a nd a Carlos and I will make an arrangement for that. Her blood pressure and cholesterol are well c ontrolled. Her diabetes is poorly controlled. NB/MODL Voice ID: [id number] Report ID: [id number]
--- NOTE | 2020-09-28 16:38 | EKG ---
Test Date: 2020-09-25 Test Time: 05:54:43 Frozen Food Department Manager: RT-O MEASUREMENT RESULTS: Intervals: Rate: 52 NH: 184 QRSD: 86 QT: 434 QTc: 403 [place]: P: -25 NH: 184 QRS: 13 T: 39 INTERPRETIVE STATEMENTS: Sinus bradycardia with premature atrial complexes Septal infarct, age undetermined Abnormal ECG Compared to ECG 09/24/2020 16:38:40 Sinus rhythm no longer present Myocardial infarct finding still present Electronically Signed On 09-28-20 16:33:27 CDT by Tramaine Ryan
--- NOTE | 2020-09-29 19:12 | P.DS ---
Discharge Date: 09/25/20 Primary Care Provider: Don Disposition: ROUTINE DISCHARGE Discharge Condition: GOOD Reason for Admission: chest pain Consultations: Cardiology Brief History of Present Illness: Patient is 75-year-old female who came to the hospital with chest pain. Chest pain was mainly the sternal region. Patient ruled out for an acute coronary syndrome. Hospital Course: Patient has done well during hospital stay. Spoke with cardiology and they recommended outpatient follow up with echocardiogram and nuclear stress test. This will be done as an outpatient. At this time, patient is stable for discharge home. Vital Signs/Physical Exam: Temp Pulse Resp BP Pulse Ox 98.1 F 55 16 121/62 99 09/25/20 16:00 09/25/20 16:00 09/25/20 16:00 09/25/20 16:00 09/25/20 16:00 General: Alert, In no apparent distress, Oriented x3 Laboratory Data at Discharge: WBC 8.40 K/uL (4.3-10.9) 09/25/20 03:28 Hgb 11.3 g/dL (12.0-15.0) L 09/25/20 03:28 Hct 33.6 % (36.0-45.0) L 09/25/20 03:28 Plt Count 249 K/uL (152-406) 09/25/20 03:28 PT 10.8 SECONDS (9.5-12.5) 09/24/20 16:54 INR 0.94 09/24/20 16:54 Sodium 139 mmol/L (136-145) 09/25/20 03:28 Potassium 4.0 mmol/L (3.5-5.1) 09/25/20 03:28 BUN 21 mg/dL (7-18) H 09/25/20 03:28 Creatinine 0.72 mg/dL (0.55-1.3) 09/25/20 03:28 Glucose 243 mg/dL (74-106) H 09/25/20 03:28 Magnesium 2.1 mg/dL (1.8-2.4) 09/24/20 16:54 Total Bilirubin 1.0 mg/dL (0.2-1.0) 09/24/20 16:54 AST 25 U/L (15-37) 09/24/20 16:54 ALT 36 U/L (12-78) 09/24/20 16:54 Alkaline Phosphatase 127 U/L (45-117) H 09/24/20 16:54 Troponin I < 0.02 ng/mL (0.0-0.045) 09/25/20 03:28 Triglycerides 172 mg/dL (<150) H 09/25/20 03:28 Cholesterol 155 mg/dL (<200) 09/25/20 03:28 HDL Cholesterol 66 mg/dL (40-60) H 09/25/20 03:28 Cholesterol/HDL Ratio 2.35 09/25/20 03:28 Home Medications: Aspirin Chewable [Aspirin Chewable*] 81 mg PO DAILY 10/31/19 Atorvastatin Calcium [Lipitor] 40 mg PO BEDTIME 10/31/19 Clopidogrel Bisulfate [Plavix*] 75 mg PO DAILY 10/31/19 Glipizide [Glipizide ER] 10 mg PO BIDAC 10/31/19 Lisinopril [Zestril] 10 mg PO DAILY 10/31/19 Pantoprazole [Protonix Tab*] 40 mg PO DAILY 10/31/19 Insulin Glargine Human [Lantus*] 5 units SQ BEDTIME #10 ml 11/01/19 traMADol HCL [Ultram*] 50 mg PO Q6H PRN #28 tab 11/01/19 Metoprolol Tartrate [Lopressor*] 25 mg PO BID #60 tab 09/25/20 New Medications: Metoprolol Tartrate [Lopressor*] 25 mg PO BID #60 tab Physician Discharge Instructions: OK TO DC IV AND DC HOME FOLLOW-UP WITH PCP IN 1-[address] BRAMBILA AT [phone] IF Any questions regarding hospital stay FOLLOW-UP WITH CARDIOLOGY FOR FURTHER CARDIAC TESTING RETURN TO THE ER IF SYMPTOMS WORSENS Diet: AHA Activity: Fall precautions Followup: Tramaine Ryan MD [ACTIVE - CAN ADMIT] - Khai Don MD [Primary Care Provider] - Time spent managing pt's care (in minutes): 35
== END 2020-09-25 18:17 | disposition home or self-care (01) ==
LOC: ER 16:17 → ERHOLD 17:54 → 4TH 20:33
PROVIDERS: ADMIT Hospitalist; ATTEND Hospitalist
DX: R07.9 Chest pain, unspecified (principal); R94.31 Abnormal electrocardiogram [ECG] [EKG]; Z20.822 Contact with and (suspected) exposure to COVID-19; I10 Essential (primary) hypertension; E11.51 Type 2 diabetes mellitus with diabetic peripheral angiopathy without gangrene; K21.9 Gastro-esophageal reflux disease without esophagitis; Z89.421 Acquired absence of other right toe(s); Z79.4 Long term (current) use of insulin; Z79.02 Long term (current) use of antithrombotics/antiplatelets; E78.5 Hyperlipidemia, unspecified; E11.65 Type 2 diabetes mellitus with hyperglycemia
CPT/HCPCS: 93005 ×2; 85025 ×2; 80048 ×2; 36415; 83735; 85610; 80061; 82947 ×4; 80076; 84484 ×3; 83880; 71275; 74175; 71045; 96375; 96372; 96374; 99285; U0003; Q9967; J1650 ×2; J2270; J2405; G0378; J1815

== ENCOUNTER 2020-11-07 21:05 | Emergency (ER) | payer OTHER ==
--- OUTSIDE RECORDS SUMMARY | 2020-11-07 21:14 | XMS REPORT | Continuity of Care Document ---
:1945 Author Organization [facility] t Address [address] [place] [address] Care Team Providers Name Role Phone Pcp Primary Care Physician Unavailable Phillip WELLS, F Attending Clinician Doctor Unassigned, Name Attending Clinician Unavailable Bo Riggs MD Attending Clinician Balta Stovall DPM Attending Clinician Lionel Franco MD Attending Clinician Balta Stovall DPM Attending Clinician Arias Gimenez MD Attending Clinician Osmin KIM Attending Clinician Tanner Thayer Attending Clinician Lucila Horowitz MD Attending Clinician BALTA STOVALL Attending Clinician Unavailable Le Burgos Attending Clinician Unavailable Waldo KIM Attending Clinician Waldo KIM Attending Clinician Dada Alejo MD Attending Clinician DDAA ALEJO Attending Clinician Unavailable Lucretia MERCEDES Attending Clinician Unavailable Ronen KIM, Lucretia Attending Clinician Austen Jenkins MD Attending Clinician Chelsey KIM, Wade Attending Clinician Rich Grover MD Attending Clinician Júnior Rosas MD Attending Clinician Letitia Lizarraga CRNA Attending Clinician Juan KIM Attending Clinician Devan Horner CRNA Attending Clinician Lionel Franco MD Attending Clinician Debbie Abdul CRNA Attending Clinician [phone] OSMIN Admitting Clinician Unavailable DADA ALEJO Admitting Clinician Unavailable Lucretia MERCEDES Admitting Clinician Unavailable Payers Payer Name Policy Type Policy Effective Date Expiration Date Sour ce Number [facility] - [id number] 2017 [place] MEDICARE MGD 00:00:00 - Medical CAREUNITED MEDICARE [facility] r [id number] 2017-P resent MEDICAIDMEDICAID OF [id number] 2018 [place] [id number] 00:00:00 - Medical 8-PresentMedicaid Center Problems Condition Condition Condition Status Onset Resolution Last Treating Co mments Source Name Details Category Date Date Treatment Clinician Date Post-opera Post-opera Disease Active [facility] tive state tive state 02-09 Laurita kes - 00:00: Medical 00 Center Surgical Surgical Disease Active [facility], aftercare, 02-09 Laurita kes - [...] 12-17 [facility] - 00:[facility] Medical [facility] Center Anemia Anemia Disease [facility] Thrombocyt Thrombocyt Disease Active [facility] osis osis 12-17 [facility] - 00:00: Medical 00 [place] 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 Family History Family Member Diagnosis Comments Start Date Stop Date Source Natural father Diabetes type II [facility] Social History Social Habit Start Date Stop Date Quantity Comments Source History [facility] - Alcohol Std Drinks Medica l [place] History [facility] - Alcohol Binge Medical [facility] Sex Assigned [facility] Tobacco use and 2020-02-10 2020-02-10 Never used [facility] - exposure 00:00:00 00:00:00 [facility] Alcohol intake 2020-02-10 2020-02-10 [facility]00 non-drinker of Medical Ce nter alcohol (finding) History [facility] 2019-12-01 2019-12-01 1 [facility] - Alcohol Frequency 00:00:00 00:00:00 [facility] Smoking Status Start Date Stop Date Source Never smoker [facility] edical [place] Medications Ordered Filled Start Stop Current Ordering Indication Dosage Frequency Signature Comments Components Source Medication Medication Date Date Medication? Clinician (SIG) Name Name Missing or Yes . [facility] Non-Formula 02-16 [facility] - ry 17:17: Medical Medication 54 Center lisinopriL 2020- No 5mg QD Take [address] [facility] (PRINIVIL,Z 02-16 tablet (5 Laurita kes - ESTRIL) 5 00:00: 23:59 mg total) Me dical MG tablet 00 :00 by mouth Center daily. ferrous 2019-2020- No 325mg QD Take [address] [facility] sulfate 325 02-16 tablet [facility] - (65 FE) MG 00:00: 23:59 (325 mg Med ical tablet 00 :00 total) by Center mouth daily. sodium 2019- Yes 1{appli QD Apply 1 [facility] hypochlorit 8-12 cation} applicatio Lauritakes - e (DAKIN'S 00:00: n Medical SOLUTION) 00 topically Cente r 0.25 % daily. external solution aspirin 81 Yes 81mg QD Take 1 [facility] MG chewable 7-15 tablet (81 Laurita kes - tablet 00:00: mg total) Medica l 00 by mouth Center daily. multivitami 2020- No 1{tbl} QD Take 1 C [...] capsule mouth daily for 60 days. multivitami 2019- 2020- No 1{tbl} QD Take [address] n -15 -14 tablet by [facility] - (THERAGRAN) 00:00: 00:00 mouth Medi casey tablet 00 :00 daily for Center 60 days. zinc 2019- 2020- No 220mg QD Take [address] [facility] sulfate -15 -14 capsule [facility] - (ZINCATE) 00:00: 00:00 (220 mg Medi casey 220 (50) mg 00 :00 total) by Joana ter capsule mouth daily for 60 days. aspirin 81 2019- 2020- No 81mg QD Take [address] [facility] MG chewable -15 -14 tablet (81 L ukes - tablet 00:00: 00:00 mg total) Medic al 00 :00 by mouth Center daily. insulin 2019-2019- No 10U QD Inject [address] glargine 14 -14 Units [facility] - (LANTUS) 13:11: 00:00 [...] injection nightly Use as directed . ascorbic 2020-0 2020- No 500mg Q.5D Take 1 [facility] acid, 12-29 tablet [facility] - vitamin C, 00:00: 23:59 (500 mg Med ical (VITAMIN C) 00 :00 total) by Joana ter 500 MG mouth 2 tablet (two) times daily for 60 days. gabapentin 2020-0 2020- No 300mg [id number] Take [address] (NEURONTIN) 12-29 [id number] capsule [facility] - 300 MG 00:00: 23:59 3D (300 mg Medical capsule 00 :00 total) by Center mouth 3 (three) times daily for 60 days. melatonin 3 2019-0 2020- No 3mg QD Take [address] mg Tab 12-29 tablet (3 [facility] - tablet 00:00: 23:59 mg total) Medic al 00 :00 by mouth Center nightly for 60 days. metFORMIN 2020-0 2020- No 500mg Take [address] [facility] [...] (two) times daily for 60 days. polyethylen 2019-2019- No 17g Take [address] e glycol 12-29 by mouth [facility] - (GLYCOLAX) 00:00: 00:00 daily as Me dical 17 gram 00 :00 needed Center packet (constipat ion). gabapentin 2019-2019- No 300mg [id number] Take [address] (NEURONTIN) 12-29 [id number] capsule [facility] - 300 MG 00:00: 00:00 [...] :00 needed Center packet (constipat ion). ticagrelor 2019-2019- No 90mg Q.5D Take [address] (BRILINTA) 12-29 tablet (90 Laurita kes - 90 mg Tab 00:00: 00:00 mg total) Me dical tablet 00 :00 by mouth 2 Center (two) times daily for 60 days. ascorbic 2019-2019- No 500mg Q.5D Take 1 [facility] acid, 12-29 tablet [facility] - vitamin C, 00:00: 00:00 (500 mg Med ical (VITAMIN C) 00 :00 total) by Joana ter 500 MG mouth 2 tablet (two) times daily for 60 days. atorvastati 2019-2019- No 80mg QD Take [address] [facility] [...] ical (VITAMIN C) 00 :00 total) by [facility] ter 500 MG mouth 2 tablet (two) times daily for 60 days. docusate 2019- No 100mg Take 1 [facility] t sodium 12-29 capsule [facility] - (COLACE) 00:00: 00:00 (100 mg Medic al 100 MG 00 :00 total) by Center capsule mouth daily as needed for Constipati on. apixaban 2019- No prevent 2.5mg Q.5D Take 2.[address] (ELIQUIS) 12-11-19 thromboembo mg by L ukes - 2.5 mg Tab 16:10: 00:00 lism in mouth 2 Medical tablet 34 :00 chronic (two) Center atrial times fibrillatio daily. n metoprolol 2019- No 25mg QD Take [address] succinate 12-11-19 by mouth [facility] - (TOPROL-XL) 16:10: 00:00 daily. Med ical 25 MG 24 hr 34 :00 Center tablet furosemide 2019- No 40mg QD Take [address] (LASIX) 40 12-11-19 by mouth [facility] - MG tablet 16:10: 00:00 daily. Medic al 34 :00 Center collagenase 0 Yes 1{appli QD Apply [address] (SANTYL) - cation} applicatio Laurita kes - 250 units/g 00:00: n Medica l ointment 00 topically Center daily Apply sergio thick amount to wound daily. SANTYL 250 2020- No 1{appli QD Apply [address] [facility] unit/gram 11-05-14 cation} applicatio [facility] - ointment 00:00: 00:00 [...] hours as needed for Pain. aspirin 81 2019- No 81mg QD Take [address] MG chewable 10-20-21 by mouth Mery es - tablet 00:00: 00:00 daily. Medical 00 :00 [place] clopidogreL 2020- No 1{tbl} QD Take [address] (PLAVIX) 75 5- 07-14 tablet by Laurita kes - mg tablet 00:00: 00:00 mouth Medica l 00 :00 daily. [place] atorvastati 2019- No 1{tbl} QD Take [address] n (LIPITOR) 10-20-14 tablet by Laurita kes - 40 MG 00:00: 00:00 mouth Medical tablet 00 :00 nightly. [place] pantoprazol 2019- No 1{tbl} QD Take [address] e 10-20-14 tablet by [facility] - (PROTONIX) 00:00: 00:00 mouth Medic al 40 MG 00 :00 daily. [place] tablet nortriptyli Yes 25mg QD Take [address] ne 1-30 by mouth [facility] - (PAMELOR) 00:00: daily. Medica l 25 MG 00 Center capsule Vital Signs Vital Name Observation Time Observation Value Comments Source Systolic blood 2020-02-17 13:00:00 162 mm[Hg] [facility] Diastolic blood 2020-02-17 13:00:00 74 mm[Hg] [facility] Heart rate 2020-02-17 13:00:00 69 /min [facility] Body temperature 2020-02-17 13:00:00 35.78 Terese [facility] Respiratory rate 2020-02-17 13:00:00 18 /min [facility] Oxygen saturation in 2020-02-17 13:00:00 100 /min [facility] Arterial blood by Medical Ce nter Pulse oximetry Body height 2020-02-10 11:43:00 162.6 cm [facility] Body weight 2020-02-10 11:43:00 56.2 kg [facility] BMI 2020-02-10 11:43:00 21.27 kg/m2 [facility] Procedures Procedure Date / Time Performing Clinician Source Performed POCT-GLUCOSE METER 2020-02-17 12:55:00 Ammy Manuelshon Bianchi [facility] POCT-GLUCOSE METER 2020-02-17 07:48:00 Ammy, Manuel Bianchi [facility] POCT-GLUCOSE METER 2020-02-16 21:14:00 Ammy, Manuel [facility] POCT-GLUCOSE METER 2020-02-16 16:28:00 Ammy, Manuelshon Bianchi [facility] POCT-GLUCOSE METER 2020-02-16 11:35:00 Ammy, Manuel [facility] POCT-GLUCOSE METER 2020-02-16 07:34:00 Ammy, Manuel [facility] POCT-GLUCOSE METER 2020-02-15 21:19:00 Ammy, [facility] POCT-GLUCOSE METER 2020-02-15 15:51:00 Ammy Manuelshon Bianchi [facility] POCT-GLUCOSE METER 2020-02-15 12:16:00 Ammy Manuelshon Bianchi [facility] POCT-GLUCOSE METER 2020-02-15 08:01:00 Ammy Manuelshon Bianchi [facility] CBC W/PLT COUNT & AUTO 2020-02-15 04:24:00 Ammy, Manuelshon Bianchi [facility] POCT-GLUCOSE METER 2020-02-14 21:16:00 Ammy Manuelshon Bianchi [facility] POCT-GLUCOSE METER 2020-02-14 15:56:00 Ammy, Manuelshon Bianchi [facility] POCT-GLUCOSE METER 2020-02-14 13:01:00 Ammy, Manuelshon Bianchi [facility] POCT-GLUCOSE METER 2020-02-14 08:07:00 Ammy, [facility] CBC W/PLT COUNT & AUTO 2020-02-14 05:43:00 Ammy, [facility] POCT-GLUCOSE METER 2020-02-13 20:59:00 Ammy, [facility] POCT-GLUCOSE METER 2020-02-13 15:43:00 Manuel Gimenez [facility] POCT-GLUCOSE METER 2020-02-13 11:26:00 Manuel Gimenez [facility] POCT-GLUCOSE METER 2020-02-13 07:50:00 Manuel Gimenez [facility] CBC W/PLT COUNT & AUTO 2020-02-13 04:24:00 Manuel Gimenez [facility] POCT-GLUCOSE METER 2020-02-12 21:03:00 Manuel Gimenez [facility] POCT-GLUCOSE METER 2020-02-12 16:22:00 AmmyManuel [facility] POCT-GLUCOSE METER 2020-02-12 11:38:00 AmmyManuel [facility] COMPREHENSIVE METABOLIC 2020-02-12 08:32:[address] [facility] PROTHROMBIN TIME/INR 2020-02-12 08:32:00 Manuel Gimenez [facility] POCT-GLUCOSE METER 2020-02-12 07:51:00 Manuel Gimenez [facility] POCT-GLUCOSE METER 2020-02-11 22:19:00 Manuel Gimenez [facility] POCT-GLUCOSE METER 2020-02-11 15:22:00 AmmyManuel [facility] POCT-GLUCOSE METER 2020-02-11 11:48:00 Manuel Gimenez [facility] BASIC METABOLIC PANEL (7) 2020-02-11 11:16:[address] [facility] CBC (HEMOGRAM ONLY) 2020-02-11 11:16:00 Tawanna Burgos [facility] POCT-GLUCOSE METER 2020-02-11 07:23:[address] [facility] BASIC METABOLIC PANEL (7) 2020-02-11 07:20:00 Manuel Gimenez [facility] CBC W/PLT COUNT & AUTO 2020-02-11 07:20:00 Ammy, [facility] IRON, TIBC, % SAT. 2020-02-10 23:13:00 [facility] (WITHOUT FERRITIN) [facility] r VITAMIN B12 AND FOLATE 2020-02-10 23:13:[address] [facility] [facility] POCT-GLUCOSE METER 2020-02-10 22:31:00 [facility] POCT-GLUCOSE METER 2020-02-10 18:02:00 [facility] DEBRIDEMENT/I&D,WOUND 2020-02-10 14:50:00 DoloresGabriel [facility] SKIN GRAFT,SPLIT 2020-02-10 14:50:[address] [facility]-LOWER EXTREMITY Medica [facility] SKIN GRAFT,SPLIT 2020-02-10 14:50:00 Giovanny Franco [facility] s - THICKNESS-LOWER EXTREMITY Lionel [facility] POCT-GLUCOSE METER 2020-02-10 11:22:00 Gabriel Stovall [facility] SARS-COV2/RT-PCR ([facility] & 2020-02-06 11:36:00 Mouna Thayer [facility] - REF LABS) [facility] HEMOGLOBIN 2020-02-06 11:36:00 Bill Fong [facility] BASIC METABOLIC PANEL (7) 2020-02-06 11:36:00 Bill Fong [facility] POCT-GLUCOSE METER 2019-12-31 11:37:00 Zelda Pat [facility] POCT-GLUCOSE METER 2019-12-31 06:57:00 [facility] 2019-12-31 00:01:00 Dada Alejo [facility] POCT-GLUCOSE METER 2019-12-30 16:14:00 [facility] PO[facility]UCOSE METER 2019-12-30 12:20:00 [facility] POCT-GLUCOSE METER 2019-12-30 06:31:[facility] PO[facility]-GLUCOSE METER 2019-12-29 20:16:00 [facility] PO[facility]UCOSE METER 2019-12-29 16:41:00 [facility] VENOUS DOPPLER ARM, LEFT 2019-12-29 16:30:00 Ambar Howard [facility] POCT-GLUCOSE METER 2019-12-29 11:06:00 [facility] POCT-GLUCOSE METER 2019-12-29 06:16:00 [facility] CBC (HEMOGRAM ONLY) 2019-12-29 04:53:00 [facility] BASIC METABOLIC PANEL (7) 2019-12-29 04:52:00 [facility] PO[facility]UCOSE METER 2019-12-28 20:47:00 [facility] PO[facility]UCOSE METER 2019-12-28 16:22:00 [facility] POCT-GLUCOSE METER 2019-12-28 11:56:00 [facility] PO[facility]UCOSE METER 2019-12-28 06:16:00 [facility] POCT-GLUCOSE METER 2019-12-27 20:24:00 [facility] PO[facility]COSE METER 2019-12-27 16:08:00 [facility] PO[facility]UCOSE METER 2019-12-27 11:12:00 [facility] POCT-GLUCOSE METER 2019-12-27 06:03:00 [facility] POCT-GLUCOSE METER 2019-12-26 20:12:00 [facility] POCT-GLUCOSE METER 2019-12-26 16:02:00 [facility] CBC W/PLT COUNT & AUTO 2019-12-26 12:00:00 Ambar Howard [facility] COMPREHENSIVE METABOLIC 2019-12-26 12:00:[address] [facility] POCT-GLUCOSE METER 2019-12-26 11:33:00 Zelda [facility] POCT-GLUCOSE METER 2019-12-26 06:35:00 Zelda, [facility] POCT-GLUCOSE METER 2019-12-25 20:43:00 Zelda, [facility] POCT-GLUCOSE METER 2019-12-25 16:42:00 Zelda, [facility] POCT-GLUCOSE METER 2019-12-25 11:08:00 Zelda, [facility] POCT-GLUCOSE METER 2019-12-25 06:32:00 Zelda, [facility] POCT-GLUCOSE METER 2019-12-24 20:44:00 Zelda, [facility] POCT-GLUCOSE METER 2019-12-24 16:24:00 Zelda, [facility] POCT-GLUCOSE METER 2019-12-24 11:12:00 Zelda, [facility] POCT-GLUCOSE METER 2019-12-24 06:20:00 Zelda [facility] POCT-GLUCOSE METER 2019-12-23 20:33:00 Zelda, [facility] POCT-GLUCOSE METER 2019-12-23 16:48:00 Zelda [facility] POCT-GLUCOSE METER 2019-12-23 11:31:00 Zelda, [facility] POCT-GLUCOSE METER 2019-12-23 05:58:00 Zelda, [facility] POCT-GLUCOSE METER 2019-12-22 20:29:00 Zelda, [facility] POCT-GLUCOSE METER 2019-12-22 16:10:00 Zelda, [facility] POCT-GLUCOSE METER 2019-12-22 11:33:00 Dada Alejo [facility] RHYTHM STRIP - SCAN 2019-12-22 10:01:02 Provider, [facility] CARDIAC CATH REPORT - 2019-12-22 10:00:44 Provider, [facility] POCT-GLUCOSE METER 2019-12-22 06:23:00 [facility] BASIC METABOLIC PANEL (7) 2019-12-22 04:37:00 [facility] ONLY[facility] 2019-12-22 [facility]:37[facility] 2019-12-21 20:41:00 [facility] POCT-GLUCOSE METER 2019-12-21 15:41:00 [facility] POCT-GLUCOSE METER 2019-12-21 11:31:00 [facility] POCT-GLUCOSE METER 2019-12-21 06:18:00 [facility] POCT-GLUCOSE METER 2019-12-20 20:20:00 [facility] POCT-GLUCOSE METER 2019-12-20 16:27:00 [facility] POCT-[facility]UCOSE METER 2019-12-20 12:27:00 [facility] POCT-GLUCOSE METER 2019-12-20 06:24:00 [facility] POCT-GLUCOSE METER 2019-12-19 20:57:00 [facility] POCT-GLUCOSE METER 2019-12-19 16:05:00 [facility] POCT-GLUCOSE METER 2019-12-19 12:07:00 [facility] POCT-GLUCOSE METER 2019-12-19 06:18:00 Pat Ndiaye [facility] COMPREHENSIVE METABOLIC 2019-12-19 05:22:[address] [facility] CBC W/PLT COUNT & AUTO 2019-12-19 05:22:[address] [facility] MAGNESIUM 2019-12-19 05:22:00 Pat Ndiaye [facility] POCT-GLUCOSE METER 2019-12-18 20:52:00 Dada Alejo Pat [facility] POCT-GLUCOSE METER 2019-12-18 16:49:00 Dada Alejo [facility] POCT-GLUCOSE METER 2019-12-18 11:46:00 Reilly [facility] POCT-GLUCOSE METER 2019-12-18 07:28:00 Grover [facility] BASIC METABOLIC PANEL (7) 2019-12-18 05:36:00 Ying [facility] CBC (HEMOGRAM ONLY) 2019-12-18 05:36:00 Ying El [facility] MAGNESIUM 2019-12-18 05:36:00 [facility] PO[facility]UCOSE [facility] 2019-12-17 21:07:00 Grover [facility] POCT-GLUCOSE METER 2019-12-17 17:48:00 Grover [facility] POCT-GLUCOSE METER 2019-12-17 11:38:00 Grover, [facility] POCT-GLUCOSE METER 2019-12-17 07:27:00 Grover [facility] BASIC METABOLIC PANEL (7) 2019-12-17 05:13:00 Ying [facility] CBC (HEMOGRAM ONLY) 2019-12-17 05:13:00 [facility]-12-17 05:13:00 [facility] POCT-GLUCOSE METER 2019-12-16 20:51:00 Reilly [facility] POCT-GLUCOSE METER 2019-12-16 16:34:00 Reilly [facility] XR CHEST 1 VIEW 2019-12-16 14:48:00 Reilly [facility] - PORTABLE[facility]BEDSIDE Medical Center POCT-GLUCOSE METER 2019-12-16 11:47:00 Reilly [facility] POCT-GLUCOSE METER 2019-12-16 06:50:00 Reilly [facility] BASIC METABOLIC PANEL (7) 2019-12-16 05:57:00 Ying [facility] CBC (HEMOGRAM ONLY) 2019-12-16 05:57:00 [facility] 2019-12-16 05:57:00 Ying El [facility] POCT-GLUCOSE METER 2019-12-15 21:15:00 Reilly [facility] POCT-GLUCOSE METER 2019-12-15 16:44:00 Reilly [facility] POCT-GLUCOSE METER 2019-12-15 11:45:00 Reilly [facility] POCT-GLUCOSE METER 2019-12-15 06:58:[address] [facility] BASIC METABOLIC PANEL (7) 2019-12-15 04:46:00 Ying [facility] CBC (HEMOGRAM ONLY) 2019-12-15 04:46:00 Ying El [facility] MAGNESIUM 2019-12-15 04:46:00 [facility] POCT-GLUCOSE METER 2019-12-14 21:15:[address] [facility] POCT-GLUCOSE METER 2019-12-14 17:18:00 [facility]Sanket [facility] PO[facility]UCOSE METER 2019-12-14 12:05:00 [facility] POCT-GLUCOSE METER 2019-12-14 07:51:00 [facility] BAS[facility]OLIC PANEL (7) 2019-12-14 04:29:00 Ying [facility] CBC (HEMOGRAM ONLY) 2019-12-14 04:29:00 [facility] 2019-12-14 04:29:00 [facility] POCT-GLUCOSE METER 2019-12-13 21:42:00 Chelsey [facility] POCT-GLUCOSE METER 2019-12-13 16:53:00 Chelsey [facility] POCT-GLUCOSE METER 2019-12-13 11:15:00 Nikolayakilbo [facility] POCT-GLUCOSE METER 2019-12-13 07:21:00 Nikolaysterling [facility] BASIC METABOLIC PANEL (7) 2019-12-13 04:54:00 Ying [facility] CBC (HEMOGRAM ONLY) 2019-12-13 04:54:00 Ying El [facility] MAGNESIUM 2019-12-13 04:54:00 [facility] POCT-GLUCOSE METER 2019-12-12 21:10:00 Chelsey [facility] POCT-GLUCOSE METER 2019-12-12 16:50:00 Chelsey [facility] POCT-GLUCOSE METER 2019-12-12 12:44:00 Chelsey [facility] Center AFB CULTURE + SMEAR 2019-12-12 12:11:18 Gabriel Stovall [facility] - (NON-SPUTUM) [facility] ANAEROBIC CULTURE 2019-12-12 12:11:18 Gabriel Stovall [facility] FUNGUS CULTURE + SMEAR 2019-12-12 12:11:18 Gabriel Stovall [facility] SURGICALLY OBTAINED 2019-12-12 12:11:[address] [facility] - CULTURE + GRAM STAIN Medical [facility] ter SPIN/CONCENTRATION CHARGE 2019-12-12 12:11:00 Gabriel Stovall [facility] DEBRIDEMENT/I&D,WOUND 2019-12-12 11:34:00 Gabriel Stovall [facility] SKIN GRAFT,SKIN 2019-12-12 11:34:00 Gabriel Stovall [facility] POCT-GLUCOSE METER 2019-12-12 07:54:[address] [facility] BASIC METABOLIC PANEL (7) 2019-12-12 05:19:00 Ying [facility] CBC (HEMOGRAM ONLY) 2019-12-12 05:19:00 [facility] 2019-12-12 05:19:00 [facility] POCT-GLUCOSE METER 2019-12-11 21:01:00 Suzanne Jenkins [facility] POCT-GLUCOSE METER 2019-12-11 16:41:00 Suzanne Jenkins [facility] POCT-GLUCOSE METER 2019-12-11 11:31:00 Suzanne Jenkins [facility] POCT-GLUCOSE METER 2019-12-11 07:24:00 Suzanne Jenkins [facility] BASIC METABOLIC PANEL (7) 2019-12-11 04:59:00 Ying [facility] CBC (HEMOGRAM ONLY) 2019-12-11 04:59:00 Ying El [facility] MAGNESIUM 2019-12-11 04:59:00 Ying El [facility] POCT-GLUCOSE METER 2019-12-10 21:23:00 Suzanne Jenkins [facility] POCT-GLUCOSE METER 2019-12-10 16:37:00 Suzanne Jenkins [facility] POCT-GLUCOSE METER 2019-12-10 11:03:00 Suzanne Jenkins [facility] POCT-GLUCOSE METER 2019-12-10 07:33:00 Suzanne Jenkins [facility] BASIC METABOLIC PANEL (7) 2019-12-10 05:50:00 Ying [facility] CBC (HEMOGRAM ONLY) 2019-12-10 05:50:00 Ying El [facility] MAGNESIUM 2019-12-10 05:50:00 Ying El [facility] POCT-GLUCOSE METER 2019-12-09 21:14:00 Suzanne Jenkins [facility] POCT-GLUCOSE METER 2019-12-09 17:03:00 Suzanne Jenkins [facility] POCT-GLUCOSE METER 2019-12-09 11:47:00 Suzanne Jenkins [facility] POCT-GLUCOSE METER 2019-12-09 06:52:00 Suzanne Jenkins [facility] [facility] BASIC METABOLIC PANEL (7) 2019-12-09 05:41:00 [facility] CBC (HEMOGRAM ONLY) 2019-12-09 05:41:00 Ying [facility] MAGNESIUM 2019-12-09 05:41:00 [facility] POCT-GLUCOSE METER 2019-12-08 22:10:00 Suzanne Jenkins [facility] POCT-GLUCOSE METER 2019-12-08 16:32:00 Suzanne Jenkins [facility] POCT-GLUCOSE METER 2019-12-08 11:53:00 Suzanne Jenkins [facility] POCT-GLUCOSE METER 2019-12-08 07:57:00 Suzanne Jenkins [facility] BASIC METABOLIC PANEL (7) 2019-12-08 05:49:00 [facility] CBC (HEMOGRAM ONLY) 2019-12-08 05:49:00 [facility]-12[facility]08 [facility]:49[facility] 2019-12-07 21:46:00 Suzanne Jenkins [facility] POCT-GLUCOSE METER 2019-12-07 17:10:00 Suzanne Jenkins [facility] BASIC METABOLIC PANEL (7) 2019-12-07 04:58:00 [facility] CBC (HEMOGRAM ONLY) 2019-12-07 04:58:00 [facility]ing [facility] MAGNESIUM 2019-12-07 04:58:00 [facility] PO[facility]SE [facility] 2019-12-06 21:02:00 Suzanne Jenkins [facility] POCT-GLUCOSE METER 2019-12-06 16:37:00 Suzanne Jenkins [facility] POCT-GLUCOSE METER 2019-12-06 12:06:00 Suzanne Jenkins [facility] POCT-GLUCOSE METER 2019-12-06 07:00:00 Suzanne Jenkins [facility] BASIC METABOLIC PANEL (7) 2019-12-06 04:37:00 [facility] CBC (HEMOGRAM ONLY) 2019-12-06 04:37:00 RanYing soriano [facility] MAGNESIUM 2019-12-06 04:37:00 [facility] POCT-GLUCOSE METER 2019-12-05 21:05:00 Suzanne Jenkins [facility] POCT-GLUCOSE METER 2019-12-05 16:36:00 Suzanne Jenkins [facility] XR FOOT RIGHT 3 VIEW 2019-12-05 15:32:00 Gabriel Stovall [facility] RHYTHM STRIP - SCAN 2019-12-05 14:14:10 Errol Zepeda [facility] AFB CULTURE + SMEAR 2019-12-05 13:05:00 Gabriel Stovall [facility] (NON-SPUTUM) [facility] ANAEROBIC CULTURE 2019-12-05 13:05:00 Gabriel Stovall [facility] FUNGUS CULTURE + SMEAR 2019-12-05 13:05:00 Gabriel Stovall [facility] SURGICALLY OBTAINED 2019-12-05 13:05:00 Gabriel Stovall [facility] - CULTURE + GRAM STAIN Medical [facility] ter SPIN/CONCENTRATION CHARGE 2019-12-05 13:05:00 Gabriel Stovall [facility] TISSUE EXAM 2019-12-05 13:01:00 Gabriel Stovall [facility] POCT-GLUCOSE METER 2019-12-05 12:57:00 Suzanne Jenkins [facility] AMPUTATION,FOOT 2019-12-05 11:34:00 Gabriel Stovall [facility] DEBRIDEMENT/I&D,WOUND 2019-12-05 11:34:00 Gabriel Stovall [facility] ECG 12-LEAD 2019-12-05 09:28:13 Nader Walters [facility] POCT-GLUCOSE METER 2019-12-05 08:03:00 Suzanne Jenkins [facility] BASIC METABOLIC PANEL (7) 2019-12-05 05:40:00 [facility] CBC (HEMOGRAM ONLY) 2019-12-05 05:40:00 Ying [facility] MAGNESIUM 2019-12-05 05:40:00 [facility] POCT-GLUCOSE METER 2019-12-04 21:06:00 Suzanne Jenkins [facility] POCT-GLUCOSE METER 2019-12-04 16:08:00 Suzanne Jenkins [facility] POCT-GLUCOSE METER 2019-12-04 11:40:00 Suzanne Jenkins [facility] POCT-GLUCOSE METER 2019-12-04 07:58:00 Suzanne Jenkins [facility] BASIC METABOLIC PANEL (7) 2019-12-04 06:30:00 [facility] CBC (HEMOGRAM ONLY) 2019-12-04 06:30:00 Ying [facility] MAGNESIUM 2019-12-04 06:30:00 [facility] APTT 2019-12-04 06:30:00 Suzanne Jenkins [facility] PLATELET AGGREGATION: 2019-12-04 06:30:00 Mariah Figueroa [facility] DRUG EFFECT [facility] POCT-GLUCOSE METER 2019-12-03 21:12:00 Suzanne Jenkins [facility] BLOOD CULTURE 2019-12-03 18:44:00 [facility] TRANSFUSION SERVICE 2019-12-03 18:00:38 Errol Zepeda [facility] REPORT - SCAN Scanning [facility] POCT-GLUCOSE METER 2019-12-03 16:50:00 Suzanne Jenkins [facility] POCT-ACT 2019-12-03 14:35:00 Suzanne Jenkins [facility] POCT-ACT 2019-12-03 13:53:00 Suzanne Jenkins [facility] PERIPHERAL ANGIOS / 2019-12-03 12:38:00 Anthony Francouel [facility] - AORTOGRAM [facility] POCT-GLUCOSE METER 2019-12-03 11:09:00 Suzanne Jenkins [facility] POCT-GLUCOSE METER 2019-12-03 08:14:00 Suzanne Jenkins [facility] BASIC METABOLIC PANEL (7) 2019-12-03 06:11:00 [facility] CBC (HEMOGRAM ONLY) 2019-12-03 06:11:00 Ying [facility] MAGNESIUM 2019-12-03 06:11:00 [facility] 2019-12-03 06:11:00 Suzanne Jenkins [facility] APTT 2019-12-02 23:35:00 Suzanne Jenkins [facility] POCT-GLUCOSE METER 2019-12-02 21:10:00 Suzanne Jenkins [facility] VANCOMYCIN LEVEL, TROUGH 2019-12-02 19:09:00 [facility] POCT-GLUCOSE METER 2019-12-02 16:46:00 Suzanne Jenkins [facility] APTT 2019-12-02 16:41:00 Suzanne Jenkins [facility] POCT-GLUCOSE METER 2019-12-02 12:20:00 Suzanne Jenkins [facility] XR FOOT RIGHT 3 VIEW 2019-12-02 12:00:00 Gabriel Stovall [facility] POCT-GLUCOSE METER 2019-12-02 09:12:00 Suzanne Jenkins [facility] TISSUE EXAM 2019-12-02 08:41:00 Gabriel Stovall [facility] SURGICALLY OBTAINED 2019-12-02 08:38:26 Gabriel Stovall [facility] CULTURE + GRAM STAIN Medical [address] [facility] ANAEROBIC CULTURE 2019-12-02 08:38:26 Gabriel Stovall [facility] AFB CULTURE + SMEAR 2019-12-02 08:38:26 Gabriel Stovall [facility] (NON-SPUTUM) [facility] FUNGUS CULTURE + SMEAR 2019-12-02 08:38:26 Gabriel Stovall [facility] AMPUTATION,TOE 2019-12-02 07:23:00 Gabriel Stovall [facility] DEBRIDEMENT/I&D,WOUND 2019-12-02 07:23:00 Gabriel Stovall [facility] POCT-GLUCOSE METER 2019-12-02 05:34:00 Suzanne Jenkins [facility] ABORH, MANUAL 2019-12-02 01:36:00 Unique Michaud [facility] APTT 2019-12-02 01:16:00 Suzanne Jenkins [facility] BASIC METABOLIC PANEL (7) 2019-12-02 01:16:00 [facility] CBC (HEMOGRAM ONLY) 2019-12-02 01:16:00 Ying [facility] MAGNESIUM 2019-12-02 01:16:00 [facility] HEMOGLOBIN A1C 2019-12-02 01:16:00 [facility] TYPE AND SCREEN, 2019-12-02 01:16:[address] [facility] POCT-GLUCOSE METER 2019-12-01 21:17:00 Suzanne Jenkins [facility] APTT 2019-12-01 19:36:00 Suzanne Jenkins [facility] POCT-GLUCOSE METER 2019-12-01 17:14:00 Suzanne Jenkins [facility] POCT-GLUCOSE METER 2019-12-01 12:12:00 Suzanne Jenkins [facility] SARS-COV2/RT-PCR ([facility] & 2019-12-01 12:10:00 Mariah Figueroa [facility] - REF LABS) Medical [place] APTT 2019-12-01 12:10:00 [facility] XR FOOT RIGHT 3 VIEW 2019-12-01 10:59:00 Gabriel Stovall [facility] ARTERIAL (TOSHIA'S W/ 2019-12-01 09:45:00 Suzanne Jenkins [facility] - DOPPLER) ONLY [facility] ARTERIAL DOPPLER LEG, 2019-12-01 09:20:00 Suzanne Jenkins [facility] RIGHT [facility] BLOOD CULTURE 2019-12-01 04:58:00 [facility] BLOOD CULTURE 2019-12-01 04:50:00 [facility], [facility] APTT 2019-12-01 04:50:00 [facility], [facility] COMPREHENSIVE METABOLIC 2019-12-01 04:50:00 [facility], [facility] PROTHROMBIN TIME/INR 2019-12-01 04:50:00 [facility], [facility] CBC W/PLT COUNT & AUTO 2019-12-01 04:50:00 [facility], [facility] DIFFERENTIAL [facility] C-REACTIVE PROTEIN 2019-12-01 04:50:00 [facility], [facility] Plan of Care Planned Activity Planned Date Details Comments Source Future Scheduled 2021-02-[address] [facility] - Test 00:00:00 (Season Ended) [code Medical Center = INFLUENZA VACCINE (Season Ended)] Future Scheduled 2020-06-[address] [facility] - Test 00:00:00 (12+) [code = Medical Center DEPRESSION SCREENING (12+)] Future Scheduled 2020-03-[address] [facility] 00:[facility]:00 measurement Medical Center (procedure) [code = 93908636] Future Scheduled 2018-08-[address] [facility] [facility] - Test 00:00:00 WELLNESS (YEAR 2 or Medical Center FIRST YEAR if no IPPE) [code = MEDICARE ANNUAL WELLNESS (YEAR 2 or FIRST YEAR if no IPPE)] Future Scheduled 2017-05-30 Urine screening for [facility] - Test 00:00:00 protein (procedure) Medical Center [code = 621186542] Future Scheduled 1996 SHINGLES VACCINES (1 [facility] [...] HEPATITIS C Medical Center SCREENING] Future Scheduled 1958 COVID-19 VACCINE (1) [facility] - Test 00:00:00 [code = COVID-[address] VACCINE (1)] Future Scheduled [address] DIABETIC EYE EXAM [facility] - Test 00:00:00 [code = DIABETIC EYE Medical Center EXAM] Future Scheduled [address] [facility] Test 00:00:00 examination Medical Center (regime/therapy) [code = 330616508] Future Scheduled [address] [facility] Test 00:00:00 [facility] breast (procedure) [code = 390195733] Future Scheduled [address] [facility] Test 00:00:00 [facility] colon (procedure) [code = 490143808] Encounters Start End Encounter Admission Attending Care Care Encounter Source Date/Time Date/Time Type Type Clinicians Facility Department ID 2020-10-25 2020-10-[address] [facility] [id number] 15:56:00 17:25:00 Juana Wiggins 350.1.13.10 [place] 4.2.7.2.686 [place] [id number] 2020-09-23 2020-09-23 Orders Doctor KHAN 1.2.840.114 [id number] 00:00:00 00:00:00 Only Unassigned, PATTY 350.1.13.10 [facility] 4.2.7.2.686 [id number] [id number] 2020-07-07 2020-07-07 Telephone Oneil ARJOSE ANGEL 1.2.840.114 [id number] 00:00:00 00:00:00 Vanesa Wiggins 350.1.13.10 [place] 4.2.7.2.686 [facility] [id number] [address] 2020-06-07 2020-06-07 Office Ricardo, BCM 1.2.840.114 [id number] 13:56:25 16:57:48 Visit Gabriel Everett AMBULATOR 350.1.13.21 Y 0.2.7.2.686 [id number] 2020-05-07 2020-05-07 Orders Doctor BILL 1.2.840.114 [id number] 00:00:00 00:00:00 Only Unassigned, PATTY 350.1.13.10 [facility] 4.2.7.2.686 [id number] [id number] 2020-04-05 2020-04-05 Office Ricardo, BCM 1.2.840.114 [id number] 14:32:01 15:37:58 Visit Gabriel Everett AMBULATOR 350.1.13.21 Y 0.2.7.2.686 [id number] 2020-04-05 2020-04-05 Office Joan BCM 1.2.840.114 [id number] 14:31:13 15:37:49 Visit Giovanny AMBULATOR 350.1.13.21 Lionel Y 0.2.7.2.686 [id number] 2020-03-15 2020-03-15 Office Ricardo, HUANG 1.2.840.114 [id number] 15:50:40 16:41:06 Visit Gabriel Everett AMBULATOR 350.1.13.21 Y 0.2.7.2.686 [id number] 2020-02-26 2020-02-26 Office Ricardo, BCM 1.2.840.114 [id number] 14:43:47 15:34:04 Visit Gabriel Everett AMBULATOR 350.1.13.21 Y 0.2.7.2.686 [id number] [id number] 2020-01-28 2020-01-28 Office HUANG Stovall 1.2.840.114 [id number] 10:21:38 10:36:38 Visit Gabriel Everett AMBULATOR 350.1.13.21 Y 0.2.7.2.686 [id number] [id number] 2020-01-21 2020-01-21 Office Jason Cortez BCJeri 1.2.840.114 [id number] 11:23:24 12:51:12 Visit AMBULATOR 350.1.13.21 Y 0.2.7.2.686 [id number] 2019-12-15 2019-12-15 Orders Doctor BILL 1.2.840.114 [id number] 00:00:00 00:00:00 Only Unassigned, PATTY 350.1.13.10 [facility] 4.2.7.2.686 [id number] [id number] 2019-11-21 2019-11-21 Telemedici [facility] 1.2.840.114 [id number] 08:57:41 09:37:41 ne Visit Vanesa Wiggins 350.1.13.10 [place] 4.2.7.2.686 [facility] [id number] [address] 2019-10-30 2019-10-30 Telephone [facility] 1.2.840.114 [id number] 00:00:00 00:00:00 Vanesa Wiggins 350.1.13.10 [place] 4.2.7.2.686 Professio [id number] [address] Results Test Description Test Time Test Comments Results Result Comments Source POC-Glucose meter 2020-02-17 13:05:00 Test Item Value Reference Range Interpretation Comme [facility] POC-Glucose Meter (test code = 200 mg/dL 70-110 H : TESTED AT [facility] [address] [facility] 1538) [facility], [facility] 30: Director Of Operations Support/Techni herson ID = [id number] for CAMILA CHU Lab Interpretation (test code = Abnormal 17124-9) [facility] [id number] 13:05:00 Test Item Value Reference Range Interpretation Comments POC-GLUCOSE METER 200 mg/dL 70-110 H : TESTED A T [facility] 67[address] (BEAKER) (test code = [facility], [facility]8) 96856: Director Of Operations Support/Techni herson ID = [id number] for ARISTEO QUEEN POCT-GLUCOSE [id number] 07:59:00 Test Item Value Reference Range Interpretation Comments POC-GLUCOSE METER 191 mg/dL 70-110 H : TESTED A T [facility] 67[address] (BEAKER) (test code = [facility], [facility]8) 94142: Director Of Operations Support/Techni herson ID = [id number] for ARISTEO QUEEN POCT-GLUCOSE [id number] 21:25:00 Test Item Value Reference Range Interpretation Comments POC-GLUCOSE METER 287 mg/dL 70-110 H : TESTED A T [facility] 67[address] (BEAKER) (test code = [facility], [facility]8) 17605: Director Of Operations Support/Techni herson ID = [id number] for AN ANNE MCNAMARA POCT-GLUCOSE [id number] 16:39:00 Test Item Value Reference Range Interpretation Comments POC-GLUCOSE METER 232 mg/dL 70-110 H : TESTED A T [facility] 67[address] (BEAKER) (test code = [facility], [facility]8) 88507: Director Of Operations Support/Techni herson ID = [id number] for ARISTEO QUEEN POCT-GLUCOSE [id number] 11:46:00 Test Item Value Reference Range Interpretation Comments POC-GLUCOSE METER 197 mg/dL 70-110 H : TESTED A T [facility] 67[address] (BEAKER) (test code = [facility], [facility]8) 89460: Director Of Operations Support/Techni herson ID = [id number] for ARISTEO QUEEN POCT-GLUCOSE [id number] 07:45:00 Test Item Value Reference Range Interpretation Comments POC-GLUCOSE METER 119 mg/dL 70-110 H : TESTED A T [facility] 67[address] (BEAKER) (test code = [facility], [facility]8) 44804: Director Of Operations Support/Techni herson ID = [id number] for MAX TRAMMELL ARISTEO POCT-GLUCOSE [id number] 21:30:00 Test Item Value Reference Range Interpretation Comments POC-GLUCOSE METER 165 mg/dL 70-110 H : TESTED A T [facility] 6720 (BEAKER) (test code = [facility], 1538) 14408: Director Of Operations Support/Techni herson ID = [id number] for POLLO JACKSON POCT-GLUCOSE [id number] 16:02:00 Test Item Value Reference Range Interpretation Comments POC-GLUCOSE METER 162 mg/dL 70-110 H : TESTED A T [facility] 6720 (BEAKER) (test code = [facility], 1538) 91619: Director Of Operations Support/Techni herson ID = [id number] for Tarah Schwab POCT-GLUCOSE [id number] 12:27:00 Test Item Value Reference Range Interpretation Comments POC-GLUCOSE METER 190 mg/dL 70-110 H : TESTED A T [facility] 67[address] (BEAKER) (test code = [facility], 1538) 24812: Director Of Operations Support/Techni herson ID = [id number] for Tarah Schwab POCT-GLUCOSE [id number] 08:12:00 Test Item Value Reference Range Interpretation Comments POC-GLUCOSE METER 160 mg/dL 70-110 H : TESTED A T [facility] 6720 (BEAKER) (test code = [facility], 1538) 17748: Director Of Operations Support/Techni herson ID = [id number] for Tarah Schwab CBC with platelet count + automated [id number] 04:55:00 Test Item Value Reference Range Interpretation Comments WBC (test code = 6690-2) 11.1 See_Comment H [A utomated message] The system [employer] generated this result transmitted ref erence range: 3.5 - 10 .5 K/L. The refe rence range was not u sed to interpret this result as normal/abnor mal. RBC (test code = 789-8) 4.12 See_Comment [Au tomated message] The system [employer] generated this result transmitted ref erence range: 3.93 - 5 .22 M/L. The refe rence range was not u sed to interpret this result as normal/abnor mal. MCHC (test code = 786-4) 31.8 See_Comment L [A utomated message] The system [employer] generated this result transmitted ref erence range: [...] See_Comment [Aut omated message] 777-3) The system [employer] generated this result transmitted ref erence range: 150 - 45 0 K/CU MM. The referen ce range was not u sed to interpret this result as normal/abnor mal. MPV (test code = 9.2 fL 9.4-12.3 L 37811-7) nRBC (test code = 413) 0 See_Comment [Aut omated message] The system [employer] generated this result transmitted ref erence range: [...] See_Comment [Aut omated message] 670) The system [employer]OM[employer] generated this result transmitted ref erence range: 1.56 - 6 .13 K/L. The refe rence range was not u sed to interpret this result as normal/abnor mal. # Lymphs (test code = 4.22 See_Comment H [Auto mated message] 414) The system [employer] generated this result transmitted ref erence range: 1.18 - 3 .74 K/L. The refe rence range was not u sed to interpret this result as normal/abnor mal. # Monos (test code = 0.76 See_Comment H [Autom ated message] 415) The system whic h generated this result transmitted ref erence range: 0.24 - 0 .36 K/L. The refe rence range was not u sed to interpret this result as normal/abnor mal. # Eos (test code = 416) 0.39 See_Comment H [Au tomated message] The system [employer] generated this result transmitted ref erence range: 0.04 - 0 .36 K/L. The refe rence range was not u sed to interpret this result as normal/abnor mal. # Baso (test code = 417) 0.03 See_Comment [A utomated message] The system [employer] generated this result transmitted ref erence range: 0.01 - 0 .08 K/L. The refe rence range was not u sed to interpret this result as normal/abnor mal. Immature 0 % 0-1 Granulocytes-Relative (test code = 2801) Lab Interpretation (test Abnormal code = 47426-0) [facility] W/PLT COUNT & AUTO [id number] 04:55:00 Test Item Value Reference Range Interpretation [...] PERCENT (BEAKER) (test code = 2801) POCT-GLUCOSE [id number] 21:28:00 Test Item Value Reference Range Interpretation Comments POC-GLUCOSE METER 217 mg/dL 70-110 H : TESTED A T [facility] 6720 (BEAKER) (test code = [facility], [facility]) 33841: Director Of Operations Support/Techni herson ID = [id number] for AN ANNE MCNAMARA POCT-GLUCOSE [id number] 16:08:00 Test Item Value Reference Range Interpretation Comments POC-GLUCOSE METER 140 mg/dL 70-110 H : TESTED A T [facility] 6720 (BEAKER) (test code = [facility], 153) 75608: Director Of Operations Support/Techni herson ID = [id number] for Me ndez, Tarah POCT-GLUCOSE [id number] 13:12:00 Test Item Value Reference Range Interpretation Comments POC-GLUCOSE METER 218 mg/dL 70-110 H : TESTED A T [facility] 6720 (BEAKER) (test code = [facility], 1538) 90442: Director Of Operations Support/Techni herson ID = [id number] for Me ndez, Tarah POCT-GLUCOSE [id number] 08:19:00 Test Item Value Reference Range Interpretation Comments POC-GLUCOSE METER 246 mg/dL 70-110 H : TESTED A T [facility] 6720 (BEAKER) (test code = LOREE Ramsey [place], 1538) 12338: Director Of Operations Support/Techni herson ID = [id number] for Tarah Schwab CBC W/PLT COUNT & AUTO [id number] 06:06:00 Test Item Value Reference Range Interpretation [...] PERCENT (BEAKER) (test code = 2801) POCT-GLUCOSE [id number] 21:12:00 Test Item Value Reference Range Interpretation Comments POC-GLUCOSE METER 186 mg/dL 70-110 H : TESTED A T [facility] 6720 (BEAKER) (test code = [facility], 153) 85082: Director Of Operations Support/Techni herson ID = [id number] for NILDA LLAMAS POCT-GLUCOSE [id number] 15:54:00 Test Item Value Reference Range Interpretation Comments POC-GLUCOSE METER 185 mg/dL 70-110 H : TESTED A T [facility] 6720 (BEAKER) (test code = [facility], 153) 07232: Director Of Operations Support/Techni herson ID = [id number] for GONZÁLEZ JC POCT-GLUCOSE [id number] 11:38:00 Test Item Value Reference Range Interpretation Comments POC-GLUCOSE METER 214 mg/dL 70-110 H : TESTED A T [facility] 6720 (BEAKER) (test code = [facility], 153) 29972: Director Of Operations Support/Techni herson ID = [id number] for GONZÁLEZ JC POCT-GLUCOSE [id number] 08:01:00 Test Item Value Reference Range Interpretation Comments POC-GLUCOSE METER 148 mg/dL 70-110 H : TESTED A T [facility] 6720 (BEAKER) (test code = [facility], 153) 10083: Director Of Operations Support/Techni herson ID = [id number] for LA AMYNE GONZÁLEZ CBC W/PLT COUNT & AUTO [id number] 04:50:00 Test Item Value Reference Range Interpretation [...] PERCENT (BEAKER) (test code = 2801) POCT-GLUCOSE [id number] 21:14:00 Test Item Value Reference Range Interpretation Comments POC-GLUCOSE METER 192 mg/dL 70-110 H : TESTED A T [facility] 6720 (BEAKER) (test code = [facility] Braulio [facility], 1538) 21810: Director Of Operations Support/Techni herson ID = [id number] for CAIT VELA POCT-GLUCOSE [id number] 16:33:00 Test Item Value Reference Range Interpretation Comments POC-GLUCOSE METER 141 mg/dL 70-110 H : TESTED A T [facility] 6720 (BEAKER) (test code = [facility] Braulio [facility], 1538) 10988: Director Of Operations Support/Techni herson ID = [id number] for ARISTEO UQEEN POCT-GLUCOSE [id number] 11:49:00 Test Item Value Reference Range Interpretation Comments POC-GLUCOSE METER 134 mg/dL 70-110 H : TESTED A T [facility] 6720 (BEAKER) (test code = LOREE Ramsey [facility], 1538) 82245: Director Of Operations Support/Techni herson ID = [id number] for ARISTEO QUEEN Prothrombin time/[id number] 09:36:00 Test Item Value Reference Interpretation Comments [...] valves. Lab Interpretation Normal (test code = 73393-8) [facility][id number] 09:36:00 Test Item Value Reference Range Interpretation [...] (test code = 3.3 g/dL 3.5-5 L 67420-3) Alkaline Phosphatase 91 U/L 40-150 (test code = 6768-6) Total Bilirubin (test 0.8 mg/dL 0.2-1.2 code = 1975-2) Sodium (test code = 136 meq/L 054-830 1843-2) Potassium (test code 4.1 meq/L 3.5-5.1 = 2823-3) Chloride (test code = 105 meq/L 98-107 2075-0) CO2 (test code = 24 meq/L -29 8-9) BUN (test code = 12 mg/dL 7- 3094-0) Creatinine (test code 0.73 mg/dL 0.57-1.25 = 2160-0) Glucose (test code = 125 mg/dL 70-105 H 2345-7) Calcium (test code = 8.3 mg/dL 8.4-10.2 L 06078-5) AST (test code = 24 U/L 5-34 1920-8) ALT (test code = 22 U/L 6-55 1742-6) EGFR (test code = 78 mL/min/1.73 [place] [address]-8) NOT ACCURATE CREATININE CLEARANCE IN PREDICTING GLOMERULAR FILTRATION RATE . ESTIMATED GFR I S NOT APPLICABLE FOR DIALYSIS PATIEN TS. BASIA (test code = BASIA) Director Of Operations Support ID - [id number] Lab Interpretation Abnormal (test code = 68509-7) [facility] [id number] 09:32:00 Test Item Value Reference Range Interpretation [...] S NOT APPLICABLE FOR DIALYSIS PATIEN TS. Director Of Operations Support ID - NTPPOCT-GLUCOSE [id number] 08:02:00 Test Item Value Reference Range Interpretation Comments POC-GLUCOSE METER 122 mg/dL 70-110 H : TESTED A T [facility] 6720 (BEAKER) (test code = [place], 153) [address]7092: Director Of Operations Support/Techni herson ID = [id number] for ARISTEO QUEEN POCT-GLUCOSE [id number] 22:30:00 Test Item Value Reference Range Interpretation Comments POC-GLUCOSE METER 122 mg/dL 70-110 H : TESTED A T [facility] 6720 (BEAKER) (test code = LOREE Ramsey [place], 1538) [address]: Director Of Operations Support/Techni herson ID = [id number] for MARILU ODONNELL POCT-GLUCOSE [id number] 15:33:00 Test Item Value Reference Range Interpretation Comments POC-GLUCOSE METER 200 mg/dL 70-110 H : TESTED A T [facility] 6720 (BEAKER) (test code = LOREE Ramsey [facility], 1538) 19049: Director Of Operations Support/Techni herson ID = [id number] for ARISTEO QUEEN Basic Metabolic [id number] 12:06:00 Test Item Value Reference Range Interpretation Comments Sodium (test code = 137 meq/L 280-028 7932-2) Potassium (test code = 3.9 meq/L 3.5-5.1 2823-3) Chloride (test code = 105 meq/L 98-107 2075-0) CO2 (test code = 25 meq/L 22-29 2028-9) BUN (test code = 10 mg/dL 7-21 3094-0) Creatinine (test code 0.71 mg/dL 0.57-1.25 = 2160-0) Glucose (test code = 121 mg/dL 70-105 H 2345-7) Calcium (test code = 8.4 mg/dL 8.4-10.2 90148-0) EGFR (test code = 81 mL/min/1.73 [place] [address]-3) NOT ACCURATE CREATININE CLEARANCE IN PREDICTING GLOMERULAR FILTRATION RATE . ESTIMATED GFR I S NOT APPLICABLE FOR DIALYSIS PATIENTS. BASIA (test code = BASIA) Director Of Operations Support ID - JORGE ALBERTO Pulido Lab Interpretation Abnormal (test code = 46561-6) [facility] [place] METABOLIC [id number] 12:06:00 Test Item Value Reference Range Interpretation [...] S NOT APPLICABLE FOR DIALYSIS PATIEN TS. Director Of Operations Support ID - JORGE ALBERTO CPOCT-GLUCOSE [id number] 11:59:00 Test Item Value Reference Range Interpretation Comments POC-GLUCOSE METER 129 mg/dL 70-110 H : TESTED A T [facility] 6720 [facility] (test code = RAKELSREE Ramsey [facility], 1538) 98137: Director Of Operations Support/Techni herson ID = [id number] for ARISTEO QUEEN CBC (Hemogram only)2020-02-11 11:51:00 Test Item Value Reference Range Interpretation Comments WBC (test code = 6690-2) 6.2 See_Comment [A utomated message] The system LABOMAR generated this result transmitted ref erence range: 3.5 - 10 .5 K/L. The refe rence range was not u sed to interpret this result as normal/abnor mal. RBC (test code = 789-8) 3.90 See_Comment L [Au tomated message] The system LABOMAR generated this result transmitted ref erence range: 3.93 - 5 .22 M/L. The refe rence range was not u sed to interpret this result as normal/abnor mal. MCHC (test code = 786-4) 32.4 See_Comment L [A utomated message] The system LABOMAR generated this result transmitted ref erence range: [...] See_Comment [Aut omated message] 777-3) The system LABOMAR generated this result transmitted ref erence range: 150 - 45 0 K/CU MM. The referen ce range was not u sed to interpret this result as normal/abnor mal. MPV (test code = 9.8 fL 9.4-12.3 63005-9) nRBC (test code = 413) 0 See_Comment [Aut omated message] The system LABOMAR generated this result transmitted ref erence range: 0 - 0 /1 00 WBC. The refere nce range was not u sed to interpret this result as normal/abnor mal. Lab Interpretation (test Abnormal code = 47057-2) [facility] (HEMOGRAM ONLY)2020-02-11 11:51:00 Test Item Value Reference [...] 0-0 (BEAKER) (test code = 413) POCT-GLUCOSE [id number] 11:26:00 Test Item Value Reference Range Interpretation Comments POC-GLUCOSE METER 138 mg/dL 70-110 H : TESTED A T [facility] 6720 (BEAKER) (test code = [place], 1538) [address]: Director Of Operations Support/Techni herson ID = [id number] for AN [facility] BASIC METABOLIC [id number] 08:02:00 Test Item Value Reference Range Interpretation [...] S NOT APPLICABLE FOR DIALYSIS PATIEN TS. Director Of Operations Support ID - JORGE ALBERTO CCBC W/PLT COUNT & AUTO [id number] 08:00:00 Test Item Value Reference Range Interpretation [...] PERCENT (BEAKER) (test code = 2801) POCT-GLUCOSE [id number] 07:57:00 Test Item Value Reference Range Interpretation Comments POC-GLUCOSE METER 100 mg/dL 70-110 : TESTED A T [facility] 6720 (BEAKER) (test code = L[place]EE [place], 1538) 10168: Director Of Operations Support/Techni herson ID = [id number] for ARISTEO QUEEN Vitamin B12 and [id number] 04:11:00 Test Item Value Reference Range Interpretation Comments Vitamin B12 (test 521 pg/mL 213-816 code = 2132-9) Folate (test code = 18.00 ng/mL See_Comment [Automa nicole 2284-8) message] The system which generated this result transmit nicole reference range : >=7.00. The reference range was not used to interpret this result as normal/abnormal . BASIA (test code = BASIA) Director Of Operations Support ID - [id number] Lab Interpretation Normal (test code = 35810-3) [facility] [id number] 04:11:00 Test Item Value Reference Range Interpretation Comments VITAMIN B12 (BEAKER) (test code = 521 pg/mL 213-816 774) FOLATE (BEAKER) (test code = 362) 18.00 ng/mL >=7.00 Director Of Operations Support ID - Katie, TIBC, % sat. (without ferritin)2020-02-10 23:57:00 Test Item Value Reference Range Interpretation Comments Iron (test code = 2498-4) 24.0 ug/dL 40-160 L TIBC (test code = 2500-7) 253 ug/dL 250-450 Iron % Saturation (test 9 % 20-55 L code = 2502-3) BASIA (test code = BASIA) Director Of Operations Support ID - [id number] L Lab Interpretation (test Abnormal code = 49504-7) [facility]BC, % SAT. (WITHOUT FERRITIN)2020-02-10 23:57:00 Test Item Value Reference Range Interpretation Comments IRON (BEAKER) (test code = 547) 24.0 ug/dL 40.0-160.0 L TOTAL IRON BINDING CAPACITY 253 ug/dL 250-450 (BEAKER) (test code = 769) IRON % SATURATION (2) (BEAKER) 9 % 20-55 L (test code = 2590) Director Of Operations Support ID - FARHAT LPOCT-GLUCOSE [id number] 18:15:00 Test Item Value Reference Range Interpretation Comments POC-GLUCOSE METER 143 mg/dL 70-110 H : TESTED A T [facility] 6720 (BEAKER) (test code = L[place]EE [place], 1538) 07242: Director Of Operations Support/Techni herson ID = [id number] for DEMOND REYES POCT-GLUCOSE [id number] 11:36:00 Test Item Value Reference Range Interpretation Comments POC-GLUCOSE METER 181 mg/dL 70-110 H : TESTED Bo Arthur [facility] 6720 (RICK) (test code = [place], 1538) 24887: Director Of Operations Support/Techni herson ID = [id number] for JEANINE RIOJAS SARS-CoV2/RT-PCR ([facility])2020-02-07 12:36:00 Test Item Value Reference Range Interpretation Comments SARS-COV2/RT-PCR Negative Not Detected, (test code = Negative, See 38512-9) external report for linked test SARS-COV-2 [facility] NOE PERFORMING LAB (test code = 26513-0) BASIA (test code = Negative result for [...] of the Act. Fact Sheet for Healthcare Providers:https://www.[employer]/sites/default/f jg/product/documents/F act_Sheet_HC_Providers_L mar_JWWC-QjE-7.pdf Fact Sheet for Healthcare Patients:https://www.[employer]/sites/default/fi les/product/documents/Fa ct_Sheet_Patients_Lyra_S ARS-CoV-2.pdf Performing Laboratory:[facility] [place] [address] [facility]2020-02-07 12:36:00 Test Item Value Reference Range Interpretation Comments SARS-COV2/RT-PCR (test Negative Not Detected, Negative, code = 3113037) See external report for linked test SARS-COV-2 PERFORMING LAB [facility] NOE (test code = 6322343) Negative result for this test determines that [...] 564(g) of the Act.Fact Sheet for Healthcare Providers:https://www.[employer]/sites/default/files/product/documents/Fact_Shee j_MA_Gckxxsdsj_Itkp_PYLB-WvD-1.pdfFact Sheet for Healthcare Patients:https://www.[employer]/sites/default/files/product/ documents/Tmex_Jqtiq_Yuzjzjcn_Edbb_HNKW-BnO-8.pdfPerforming Laboratory:[place] [address], [place] [address]ACWTB METABOLIC PANEL 2020-02-06 12:10:00 Test Item Value [...] S NOT APPLICABLE FOR DIALYSIS PATIEN TS. Director Of Operations Support ID - [id number] 11:50:00 Test Item Value Reference Range Interpretation Comments Hemoglobin (test code 12.0 See_Comment [Auto mated = 786-4) message] The system which generated this result transmit nicole reference range : 11.2 - 15.7 GM/ DL. The reference range was not u sed to interpret th is result as normal/abnormal . BASIA (test code = BASIA) Director Of Operations Support ID - [id number] Lab Interpretation Normal (test code = 30287-1) [facility] 11:50:00 Test Item Value Reference Range Interpretation Comments HEMOGLOBIN (BEAKER) (test code = 12.0 GM/DL 11.2-15.7 410) Director Of Operations Support ID - [id number] culture + smear (non-sputum)2020-01-26 09:25:00 Test Item Value Reference Range Interpretation Comments Result (test code = No acid-fast bacilli 6463-4) isolated in 42 days AFB Smear (test code = No acid fast bacilli 94647-3) seen [facility]AR (NON-SPUTUM)2020-01-26 09:25:00 Test Item [...] code = 994) seen Fungus culture + [id number] 15:27:00 Test Item Value Reference Range Interpretation Comments Result (test code = No fungus isolated in 6463-4) 28 days Fungus Smear (test <1+ budding yeast code = 1406) [facility] + [id number] 15:27:00 Test Item Value Reference Range Interpretation Comments CULTURE (BEAKER) (test No fungus isolated in code = 1095) 28 days FUNGUS SMEAR (BEAKER) <1+ budding yeast (test code = 1406) FUNGUS CULTURE + [id number] 16:04:00 Test Item Value Reference Range Interpretation Comments CULTURE (BEAKER) (test No fungus isolated in code = 1095) 28 days FUNGUS SMEAR (BEAKER) No fungi seen (test code = 1406) FUNGUS CULTURE + [id number] 16:21:00 Test Item Value Reference Range Interpretation Comments CULTURE (BEAKER) (test No fungus isolated in code = 1095) 28 days FUNGUS SMEAR (BEAKER) No fungi seen (test code = 1406) POCT-GLUCOSE [id number] 11:49:00 Test Item Value Reference Range Interpretation Comments POC-GLUCOSE METER 94 mg/dL 70-110 : TESTED A T [facility] 7200 (BEAKER) (test code = [place], 1538) [place] [address] 0: Director Of Operations Support/Techni herson ID = [id number] for CASEY ANO, JUCEL FRAN POCT-GLUCOSE [id number] 07:08:00 Test Item Value Reference Range Interpretation Comments POC-GLUCOSE METER 87 mg/dL 70-110 : TESTED A T [facility] 7200 (BEAKER) (test code = [place] A, 1538) [place] [address] 0: Director Of Operations Support/Techni herson ID = [id number] for NATHAN EDWINADARWIN SorianoW POCT-GLUCOSE [id number] 00:12:00 Test Item Value Reference Range Interpretation Comments POC-GLUCOSE METER 111 mg/dL 70-110 H : TESTED A T [facility] 7200 (BEAKER) (test code [place] E BLDG A, = 1538) [place] [address] 0: Director Of Operations Support/Techni herson ID = [id number] for NATHAN EDWINA, POLLO POCT-GLUCOSE [id number] 16:26:00 Test Item Value Reference Range Interpretation Comments POC-GLUCOSE METER 146 mg/dL 70-110 H : TESTED A T [facility] 7200 (BEAKER) (test code [place] E BLDG A, = 1538) [place] [address] 0: Director Of Operations Support/Techni herson ID = [id number] for CASEY ANO, JUCEL FRAN PV, VENOUS DOPPLER ARM, [id number] 13:49:00Reason for exam:->LUE pain and nodule, r/o [...] Berg Verified Date/Time: 12/30/2019 13:49:05 Reading Location: [facility] C013Y CT Body Reading RoomAddendum EndsFINAL REPORT [...] Berg Verified Date/Time: 12/29/2019 18:22:22 Reading Location: [facility] C013W Consult Reading Room POCT-GLUCOSE [id number] 12:31:00 Test Item Value Reference Range Interpretation Comments POC-GLUCOSE METER 122 mg/dL 70-110 H : TESTED A T [facility] 7200 (BEAKER) (test code [place] E BLDG A, = 1538) [place] [address] 0: Director Of Operations Support/Techni herson ID = [id number] for MAST ERS, JAUN POCT-GLUCOSE [id number] 06:42:00 Test Item Value Reference Range Interpretation Comments POC-GLUCOSE METER 96 mg/dL 70-110 : TESTED A T [facility] 7200 (BEAKER) (test code = [place] A, 1538) [place] [address] 0: Director Of Operations Support/Techni herson ID = [id number] for JARD ER, RAMIRO POCT-GLUCOSE [id number] 20:26:00 Test Item Value Reference Range Interpretation Comments POC-GLUCOSE METER 164 mg/dL 70-110 H : TESTED A T [facility] 7200 (BEAKER) (test code [place] E BLDG A, = 1538) [place] [address] 0: Director Of Operations Support/Techni herson ID = [id number] for POLLO CABALLERO Venous doppler arm, [id number] 18:22:00Interface, External Ris In - 12/30/2019 1:51 [...] Berg Verified Date/Time: 12/30/2019 13:49:05 Reading Location: [address] Body Reading RoomAddendum EndsFINAL REPORT [...] Berg Verified Date/Time: 12/29/2019 18:22:22 Reading Location: [facility] C013W Consult Reading [facility] [id number] 16:59:00 Test Item Value Reference Range Interpretation Comments POC-GLUCOSE METER 199 mg/dL 70-110 H : TESTED A T [facility] 7200 (BEAKER) (test code [place] E BLDG A, = 1538) [place] [address] 0: Director Of Operations Support/Techni herson ID = [id number] for NADIR SHANNAN KALYN POCT-GLUCOSE [id number] 11:17:00 Test Item Value Reference Range Interpretation Comments POC-GLUCOSE METER 113 mg/dL 70-110 H : TESTED A T [facility] 7200 (BEAKER) (test code [place] E BLDG A, = 1538) [place] [address] 0: Director Of Operations Support/Techni herson ID = [id number] for KALYN MARTINEZ POCT-GLUCOSE [id number] 06:28:00 Test Item Value Reference Range Interpretation Comments POC-GLUCOSE METER 107 mg/dL 70-110 : TESTED A T [facility] 7200 (BEAKER) (test code CAMBGILMAG E BLDG A, = 1538) [place] 7[address] 0: Director Of Operations Support/Techni herson ID = [id number] for ROSY FAUST BASIC METABOLIC [id number] 05:30:00 Test Item Value Reference Range Interpretation [...] 9.4-12.3 L (test code = 754) POCT-GLUCOSE [id number] 20:59:00 Test Item Value Reference Range Interpretation Comments POC-GLUCOSE METER 173 mg/dL 70-110 H : TESTED A T [facility] 7200 (BEAKER) (test code [place] E BLDG A, = 1538) [place] [address] 0: Director Of Operations Support/Techni herson ID = [id number] for BENNY , ROSY POCT-GLUCOSE [id number] 16:41:00 Test Item Value Reference Range Interpretation Comments POC-GLUCOSE METER 151 mg/dL 70-110 H : TESTED A T [facility] 7200 (BEAKER) (test code [place] E BLDG A, = 1538) [place] [address] 0: Director Of Operations Support/Techni herson ID = [id number] for JOHN ERA, AVIVA POCT-GLUCOSE [id number] 12:07:00 Test Item Value Reference Range Interpretation Comments POC-GLUCOSE METER 130 mg/dL 70-110 H : TESTED A T [facility] 7200 (BEAKER) (test code [place] E BLDG A, = 1538) [place] [address] 0: Director Of Operations Support/Techni herson ID = [id number] for JOHN ERA, AVIVA POCT-GLUCOSE [id number] 06:28:00 Test Item Value Reference Range Interpretation Comments POC-GLUCOSE METER 99 mg/dL 70-110 : TESTED A T [facility] 7200 (BEAKER) (test code = [place]LD[place] A, 1538) [place] [address] 0: Director Of Operations Support/Techni herson ID = [id number] for BENNY , ROSY POCT-GLUCOSE [id number] 20:35:00 Test Item Value Reference Range Interpretation Comments POC-GLUCOSE METER 230 mg/dL 70-110 H : TESTED A T [facility] 7200 (BEAKER) (test code [place] E BLDG A, = 1538) [place] [address] 0: Director Of Operations Support/Techni herson ID = [id number] for ROSY FAUST POCT-GLUCOSE [id number] 16:19:00 Test Item Value Reference Range Interpretation Comments POC-GLUCOSE METER 184 mg/dL 70-110 H : TESTED A T [facility] 7200 (BEAKER) (test code [place] E BLDG A, = 1538) [place] [address] 0: Director Of Operations Support/Techni herson ID = [id number] for JOHN ERA, AVIVA POCT-GLUCOSE [id number] 11:24:00 Test Item Value Reference Range Interpretation Comments POC-GLUCOSE METER 120 mg/dL 70-110 H : TESTED A T [facility] 7200 (BEAKER) (test code [place] E BLDG A, = 1538) [place] [address] 0: Director Of Operations Support/Techni herson ID = [id number] for JOHN ERA, AVIVA POCT-GLUCOSE [id number] 06:15:00 Test Item Value Reference Range Interpretation Comments POC-GLUCOSE METER 80 mg/dL 70-110 : TESTED A T [facility] 7200 (BEAKER) (test code = [place] BLD[place] A, 1538) [place] [address] 0: Director Of Operations Support/Techni herson ID = [id number] for LARS EDOUARDA POCT-GLUCOSE [id number] 20:23:00 Test Item Value Reference Range Interpretation Comments POC-GLUCOSE METER 140 mg/dL 70-110 H : TESTED A T [facility] 7200 (BEAKER) (test code [place] E BLDG A, = 1538) [place] [address] 0: Director Of Operations Support/Techni herson ID = [id number] for JAVAN , BC POCT-GLUCOSE [id number] 16:13:00 Test Item Value Reference Range Interpretation Comments POC-GLUCOSE METER 163 mg/dL 70-110 H : TESTED A T [facility] 7200 (BEAKER) (test code CAM[place] E BLDG A, = 1538) [place] [address] 0: Director Of Operations Support/Techni herson ID = [id number] for WALDEMAR BAL COMPREHENSIVE METABOLIC [id number] 12:38:00 Test Item Value Reference Range Interpretation [...] PATIEN TS. CBC W/PLT COUNT & AUTO [id number] 12:19:00 Test Item Value Reference Range Interpretation [...] PERCENT (BEAKER) (test code = 2801) POCT-GLUCOSE [id number] 11:45:00 Test Item Value Reference Range Interpretation Comments POC-GLUCOSE METER 122 mg/dL 70-110 H : TESTED A T [facility] 7200 (BEAKER) (test code CAMBGILMAG E BLDG A, = 1538) [facility] 7703 0: Director Of Operations Support/Techni herson ID = [id number] for WALDEMAR BAL POCT-GLUCOSE [id number] 06:46:00 Test Item Value Reference Range Interpretation Comments POC-GLUCOSE METER 105 mg/dL 70-110 : TESTED A T [facility]200 (BEAKER) (test code CAM[place] E BLDG A, = 1538) [place] [address] 0: Director Of Operations Support/Techni herson ID = [id number] for POLLO CABALLERO POCT-GLUCOSE [id number] 20:54:00 Test Item Value Reference Range Interpretation Comments POC-GLUCOSE METER 159 mg/dL 70-110 H : TESTED A T [facility]200 (BEAKER) (test code [place] E BLDG A, = 1538) [place] [address] 0: Director Of Operations Support/Techni herson ID = [id number] for POLLO CABALLERO POCT-GLUCOSE [id number] 17:04:00 Test Item Value Reference Range Interpretation Comments POC-GLUCOSE METER 133 mg/dL 70-110 H : TESTED A T [facility] (BEAKER) (test code CAM[place] E BLDG A, = 1538) [place] [address] 0: Director Of Operations Support/Techni herson ID = [id number] for OMIW SHANNAN, SYRIETA POCT-GLUCOSE [id number] 11:21:00 Test Item Value Reference Range Interpretation Comments POC-GLUCOSE METER 124 mg/dL 70-110 H : TESTED A T [facility] (BEAKER) (test code CAM[place] E BLDG A, = 1538) [place] [address] 0: Director Of Operations Support/Techni herson ID = [id number] for OMIW SHANNAN, SYRIETA POCT-GLUCOSE [id number] 06:43:00 Test Item Value Reference Range Interpretation Comments POC-GLUCOSE METER 90 mg/dL 70-110 : TESTED A T [facility] (BEAKER) (test code = CAMBRI DGE BLDG A, 1538) [place] [address] 0: Director Of Operations Support/Techni herson ID = [id number] for OPLLO CABALLERO POCT-GLUCOSE [id number] 20:55:00 Test Item Value Reference Range Interpretation Comments POC-GLUCOSE METER 169 mg/dL 70-110 H : TESTED A T [facility] (BEAKER) (test code CAM[place] E BLDG A, = 1538) [place] [address] 0: Director Of Operations Support/Techni herson ID = [id number] for POLLO CABALLERO POCT-GLUCOSE [id number] 16:35:00 Test Item Value Reference Range Interpretation Comments POC-GLUCOSE METER 164 mg/dL 70-110 H : TESTED A T [facility] (BEAKER) (test code CAM[place] E BLDG A, = 1538) [place] [address] 0: Director Of Operations Support/Techni herson ID = [id number] for WALDEMAR BAL POCT-GLUCOSE [id number] 11:25:00 Test Item Value Reference Range Interpretation Comments POC-GLUCOSE METER 174 mg/dL 70-110 H : TESTED A T [facility]200 (BEAKER) (test code CAM[place] E BLDG A, = 1538) [place] [address] 0: Director Of Operations Support/Techni herson ID = [id number] for WALDEMAR BAL POCT-GLUCOSE [id number] 06:32:00 Test Item Value Reference Range Interpretation Comments POC-GLUCOSE METER 108 mg/dL 70-110 : TESTED A T [facility] (BEAKER) (test code CAM[place] E BLDG A, = 1538) [place] [address] 0: Director Of Operations Support/Techni herson ID = [id number] for BENNY , ROSY POCT-GLUCOSE [id number] 20:44:00 Test Item Value Reference Range Interpretation Comments POC-GLUCOSE METER 194 mg/dL 70-110 H : TESTED A T [facility] (BEAKER) (test code CAM[place] E BLDG A, = 1538) [place] [address] 0: Director Of Operations Support/Techni herson ID = [id number] for BENNY , ROSY POCT-GLUCOSE [id number] 16:59:00 Test Item Value Reference Range Interpretation Comments POC-GLUCOSE METER 156 mg/dL 70-110 H : TESTED A T [facility] (BEAKER) (test code CAM[place] E BLDG A, = 1538) [place] [address] 0: Director Of Operations Support/Techni herson ID = [id number] for RACHELLE GRAY POCT-GLUCOSE [id number] 11:42:00 Test Item Value Reference Range Interpretation Comments POC-GLUCOSE METER 181 mg/dL 70-110 H : TESTED A T [facility] (BEAKER) (test code CAM[place] E BLDG A, = 1538) [place] [address] 0: Director Of Operations Support/Techni herson ID = [id number] for RACHELLE GRAY POCT-GLUCOSE [id number] 06:10:00 Test Item Value Reference Range Interpretation Comments POC-GLUCOSE METER 83 mg/dL 70-110 : TESTED A T [facility] (BEAKER) (test code = CAM[place] DGE BLDG A, 1538) [place] [address] 0: Director Of Operations Support/Techni herson ID = [id number] for BENNY , ROSY POCT-GLUCOSE [id number] 20:42:00 Test Item Value Reference Range Interpretation Comments POC-GLUCOSE METER 221 mg/dL 70-110 H : TESTED A T [facility] (BEAKER) (test code CAM[place] E BLDG A, = 1538) [place] [address] 0: Director Of Operations Support/Techni herson ID = [id number] for BENNY , ROSY Anaerobic [id number] 18:21:00 Test Item Value Reference Range Interpretation Comments Result (test code = No anaerobes isolated 6463-4) [facility] [id number] 18:21:00 Test Item Value Reference Range Interpretation Comments CULTURE (BEAKER) (test No anaerobes isolated code = 1095) POCT-GLUCOSE [id number] 16:23:00 Test Item Value Reference Range Interpretation Comments POC-GLUCOSE METER 193 mg/dL 70-110 H : TESTED A T [facility] (BEAKER) (test code CAM[place] E BLDG A, = 1538) [place] [address] 0: Director Of Operations Support/Techni herson ID = [id number] for JOHN ERA, AVIVA POCT-GLUCOSE [id number] 11:54:00 Test Item Value Reference Range Interpretation Comments POC-GLUCOSE METER 117 mg/dL 70-110 H : TESTED A T [facility] (BEAKER) (test code CAM[place] E BLDG A, = 1538) [place] [address] 0: Director Of Operations Support/Techni herson ID = [id number] for JOHN ERA, AVIVA POCT-GLUCOSE [id number] 06:35:00 Test Item Value Reference Range Interpretation Comments POC-GLUCOSE METER 90 mg/dL 70-110 : TESTED A T [facility] (BEAKER) (test code = CAMB[place] DGE BLDG A, 1538) [facility] 7703 0: Director Of Operations Support/Techni herson ID = [id number] for POLLO CABALLERO BASIC METABOLIC [id number] 05:02:00 Test Item Value Reference Range Interpretation [...] fL 9.0-12.3 (test code = 754) POCT-GLUCOSE [id number] 20:52:00 Test Item Value Reference Range Interpretation Comments POC-GLUCOSE METER 164 mg/dL 70-110 H : TESTED A T [facility] (BEAKER) (test code CAMBR[place] E BLDG A, = 1538) [place] [address] 0: Director Of Operations Support/Techni herson ID = [id number] for POLLO CABALLERO POCT-GLUCOSE [id number] 15:52:00 Test Item Value Reference Range Interpretation Comments POC-GLUCOSE METER 142 mg/dL 70-110 H : TESTED A T [facility] 7200 (BEAKER) (test code CAM[place] E BLDG A, = 1538) [place] [address] 0: Director Of Operations Support/Techni herson ID = [id number] for OMIW SHANNAN, SYRIETA POCT-GLUCOSE [id number] 11:54:00 Test Item Value Reference Range Interpretation Comments POC-GLUCOSE METER 153 mg/dL 70-110 H : TESTED A T [facility]200 (BEAKER) (test code CAMBRID[place] E BLDG A, = 1538) [place] [address] 0: Director Of Operations Support/Techni herson ID = [id number] for OMIW SHANNAN, SYRIETA POCT-GLUCOSE [id number] 06:30:00 Test Item Value Reference Range Interpretation Comments POC-GLUCOSE METER 95 mg/dL 70-110 : TESTED A T [facility] 7200 (BEAKER) (test code = CAMB[place] DGE BLDG A, 1538) [place] [address] 0: Director Of Operations Support/Techni herson ID = [id number] for POLLO CABALLERO POCT-GLUCOSE [id number] 20:31:00 Test Item Value Reference Range Interpretation Comments POC-GLUCOSE METER 211 mg/dL 70-110 H : TESTED A T [facility] (BEAKER) (test code CAMBRIDG E BLDG A, = 1538) [place] [address] 0: Director Of Operations Support/Techni herson ID = [id number] for POLLO CABALLERO POCT-GLUCOSE [id number] 16:40:00 Test Item Value Reference Range Interpretation Comments POC-GLUCOSE METER 184 mg/dL 70-110 H : TESTED A T [facility] (BEAKER) (test code CAM[place]G E BLDG A, = 1538) [place] [address] 0: Director Of Operations Support/Techni herson ID = [id number] for IJEOMA CACERES POCT-GLUCOSE [id number] 12:38:00 Test Item Value Reference Range Interpretation Comments POC-GLUCOSE METER 102 mg/dL 70-110 : TESTED A T [facility] (BEAKER) (test code CAM[place] E BLDG A, = 1538) [place] [address] 0: Director Of Operations Support/Techni herson ID = [id number] for RUSSELL CADENA POCT-GLUCOSE [id number] 06:36:00 Test Item Value Reference Range Interpretation Comments POC-GLUCOSE METER 107 mg/dL 70-110 : TESTED A T [facility] (BEAKER) (test code CAM[place] E BLDG A, = 1538) [place] [address] 0: Director Of Operations Support/Techni herson ID = [id number] for POLLO CABALLERO POCT-GLUCOSE [id number] 21:08:00 Test Item Value Reference Range Interpretation Comments POC-GLUCOSE METER 189 mg/dL 70-110 H : TESTED A T [facility] (BEAKER) (test code CAM[place] E BLDG A, = 1538) [place] [address] 0: Director Of Operations Support/Techni herson ID = [id number] for ERNESTINA SFRANSISCOHETTA POCT-GLUCOSE [id number] 16:19:00 Test Item Value Reference Range Interpretation Comments POC-GLUCOSE METER 194 mg/dL 70-110 H : TESTED A T [facility] (BEAKER) (test code CAMBR[place]G E BLDG A, = 1538) [place] [address] 0: Director Of Operations Support/Techni herson ID = [id number] for WANDA MARTINEZIETA POCT-GLUCOSE [id number] 12:19:00 Test Item Value Reference Range Interpretation Comments POC-GLUCOSE METER 136 mg/dL 70-110 H : TESTED A T [facility] (BEAKER) (test code CAM[place]G E BLDG A, = 1538) [place] [address] 0: Director Of Operations Support/Techni herson ID = [id number] for KALYN MARTINEZ POCT-GLUCOSE [id number] 06:29:00 Test Item Value Reference Range Interpretation Comments POC-GLUCOSE METER 74 mg/dL 70-110 : TESTED A T [facility] (BEAKER) (test code = CAMBRI DGE BLDG A, 1538) [place] [address] 0: Director Of Operations Support/Techni herson ID = [id number] for BC EDOUARD [id number] 05:45:00 Test Item Value Reference Range Interpretation Comments Magnesium (test code = 48435-5) 2.0 mg/dL 1.6-2.6 Lab Interpretation (test code = Normal 76708-4) [facility] [id number] 05:45:00 Test Item Value Reference Range Interpretation [...] S NOT APPLICABLE FOR DIALYSIS PATIEN TS. [id number] 05:45:00 Test Item Value Reference Range Interpretation Comments MAGNESIUM (BEAKER) (test code = 2.0 mg/dL 1.6-2.6 627) CBC W/PLT COUNT & AUTO [id number] 05:28:00 Test Item Value Reference Range Interpretation [...] PERCENT (BEAKER) (test code = 2801) POCT-GLUCOSE [id number] 21:03:00 Test Item Value Reference Range Interpretation Comments POC-GLUCOSE METER 188 mg/dL 70-110 H : TESTED A T [facility] (BEAKER) (test code CAM[place]IDG Garret BLDG A, = 1538) [place] [address] 0: Director Of Operations Support/Techni herson ID = [id number] for BC EDOUARD POCT-GLUCOSE [id number] 17:00:00 Test Item Value Reference Range Interpretation Comments POC-GLUCOSE METER 136 mg/dL 70-110 H : TESTED A T [facility] (BEAKER) (test code CAMBRIDG E BLDG A, = 1538) [place] [address] 0: Director Of Operations Support/Techni herson ID = [id number] for LEENA MALDONADO CHIOMA POCT-GLUCOSE [id number] 12:08:00 Test Item Value Reference Range Interpretation Comments POC-GLUCOSE METER 115 mg/dL 70-110 H : TESTED A T [facility] (BEAKER) (test code = LOREE R [facility], 1538) [address]: Director Of Operations Support/Techni herson ID = [id number] for [place] LLIAMS, TYNEKA POCT-GLUCOSE [id number] 07:44:00 Test Item Value Reference Range Interpretation Comments POC-GLUCOSE METER 74 mg/dL 70-110 : TESTED A T [facility] 6720 (BEAKER) (test code = [facility] R [facility], 1538) [address]: Director Of Operations Support/Techni herson ID = [id number] for WILL IAMS, TYNEKA [id number] 07:37:00 Test Item Value Reference Range Interpretation Comments MAGNESIUM (BEAKER) (test code = 2.0 mg/dL 1.6-2.6 627) Director Of Operations Support ID - EMERSONBASIC METABOLIC [id number] 07:37:00 Test Item Value Reference Range Interpretation [...] S NOT APPLICABLE FOR DIALYSIS PATIEN TS. Director Of Operations Support ID - EMERSONCBC (HEMOGRAM ONLY)2019-12-18 07:02:00 Test [...] 0-0 (BEAKER) (test code = 413) POCT-GLUCOSE [id number] 21:19:00 Test Item Value Reference Range Interpretation Comments POC-GLUCOSE METER 190 mg/dL 70-110 H : TESTED A T [facility] 6720 (BEAKER) (test code = [facility], 1538) [address]: Director Of Operations Support/Techni herson ID = [id number] for Barb Martins POCT-GLUCOSE [id number] 18:00:00 Test Item Value Reference Range Interpretation Comments POC-GLUCOSE METER 140 mg/dL 70-110 H : TESTED A T [facility]20 (BEAKER) (test code = [facility], 1538) [address]: Director Of Operations Support/Techni herson ID = [id number] for [place] LLIAMS, TYNEKA POCT-GLUCOSE [id number] 11:50:00 Test Item Value Reference Range Interpretation Comments POC-GLUCOSE METER 136 mg/dL 70-110 H : TESTED A T [facility] 6720 (BEAKER) (test code = [facility], 1538) [address]: Director Of Operations Support/Techni herson ID = [id number] for [place] LLIAMS, TYNEKA POCT-GLUCOSE [id number] 07:40:00 Test Item Value Reference Range Interpretation Comments POC-GLUCOSE METER 82 mg/dL 70-110 : TESTED A T [facility] 6720 (BEAKER) (test code = [facility], 1538) [address]14[address]: Director Of Operations Support/Techni herson ID = [id number] for WILL IAMS, TYNEKA [id number] 06:10:00 Test Item Value Reference Range Interpretation Comments MAGNESIUM (BEAKER) (test code = 2.2 mg/dL 1.6-2.6 627) Director Of Operations Support ID - BSBASIC METABOLIC [id number] 06:10:00 Test Item Value Reference Range Interpretation [...] S NOT APPLICABLE FOR DIALYSIS PATIEN TS. Director Of Operations Support ID - [id number] (HEMOGRAM ONLY)2019-12-17 05:34:00 Test [...] 0-0 (BEAKER) (test code = 413) POCT-GLUCOSE [id number] 21:02:00 Test Item Value Reference Range Interpretation Comments POC-GLUCOSE METER 153 mg/dL 70-110 H : TESTED A T [facility] 6720 (BEAKER) (test code = LOREE Ramsey [facility], 1538) 7[address]: Director Of Operations Support/Techni herson ID = [id number] for PREETI WYATT POCT-GLUCOSE [id number] 16:46:00 Test Item Value Reference Range Interpretation Comments POC-GLUCOSE METER 155 mg/dL 70-110 H : TESTED A T [facility] 6720 (BEAKER) (test code = [facility], 1538) [address]: Director Of Operations Support/Techni herson ID = [id number] for BERRY NTMARCOS BRIONESWITHA RAD, CHEST, 1 VIEW, NON [id number] 15:53:00Reason for exam:->RIGHT PICC LINE TIP VERIFICATIONShould [...] MDReport Verified Date/Time: 12/16/2019 15:53:59 Reading Location: [facility] Radiology Reading Room XR chest 1 view portable / [id number] 15:53:00Interface, External Ris In - 12/16/2019 3:56 [...] MDReport Verified Date/Time: 12/16/2019 15:53:59 Reading Location: [facility] Radiology Reading [facility] [id number] 13:27:00Surgical Pathology Report Case: [id number] Authorizing Provider: Gabriel Stovall DPM Collected: 12/02/2019 08:41 AM Ordering Location: [facility] Received: 12/02/2019 09:24 AM SERVICES [...] GANGRENOUS CHANGES Signing Pathologist Direct Phone Line: [phone] signed by Cassia Xiao MD on 12/16/2019 at 1:27 PMSlides for microscopic examination are received on 12/08/2019.MO/[id number] X 2Gangrene of right foot ([facility]) [I96] [id number]. Toe, rightB. Foot, rightC. Foot, rightA. Received [...] affected bone is red-pink, trabeculated and firm. Account Resolution Specialist sectionsare submitted as follows:Section codeA1-skin and soft [...] cut surface is shabazz-yellow, trabeculated and firm. Account Resolution Specialist sections are submitted in C1-C2 following decalcification.SHARON Leon (ASCP)manager business banking-C. The samples show variable amounts of gangrenous necrosis. In the C-sample, in slide C-1, there is prominent associated acute osteomyelitis in the C-1 slide. Some articular cartilage does not show significant inflammation.POCT-GLUCOSE [id number] 12:00:00 Test Item Value Reference Range Interpretation Comments POC-GLUCOSE METER 122 mg/dL 70-110 H : TESTED A T [facility] 6720 (BEAKER) (test code = RAKELSREE Ramsey [facility], 1538) [address]: Director Of Operations Support/Techni herson ID = [id number] for YADI KU [id number] 07:46:00 Test Item Value Reference Range Interpretation Comments MAGNESIUM (BEAKER) (test code = 2.2 mg/dL 1.6-2.6 627) Director Of Operations Support ID - [place] FBASIC METABOLIC [id number] 07:46:00 Test Item Value Reference Range Interpretation [...] S NOT APPLICABLE FOR DIALYSIS PATIEN TS. Director Of Operations Support ID - ANGELINA FC (HEMOGRAM ONLY)2019-12-16 07:16:00 Test Item Value Reference [...] 0-0 (BEAKER) (test code = 413) POCT-GLUCOSE [id number] 07:02:00 Test Item Value Reference Range Interpretation Comments POC-GLUCOSE METER 99 mg/dL 70-110 : TESTED A T [facility] 6720 (BEAKER) (test code = [place], 1538) 112[address]: Director Of Operations Support/Techni herson ID = [id number] for YADI SANDERSON POCT-GLUCOSE [id number] 21:27:00 Test Item Value Reference Range Interpretation Comments POC-GLUCOSE METER 287 mg/dL 70-110 H : TESTED A T [facility] 6720 (BEAKER) (test code = [place], 1538) [address]: Director Of Operations Support/Techni herson ID = [id number] for PREETI WYATT Tissue [id number] 18:37:00 Test Item Value Reference Range Interpretation Comments Case Report (test code Surgical Pathology = 104) Report Case: [id number] Authorizing Provider: Gabriel Stovall DPM Collected: 12/05/2019 01:01 PM Ordering Location: [facility] Received: 12/05/2019 01:40 PM SERVICES Pathologist: Naresh Tillman MD Specimen: Foot, Right, right foot amputation DIAGNOSIS (test code = l7lhpMMbCIZyx0zfPYAcgRK 3220) uZzEwMzNcZnRuYmpcdWMxIH opklPjNLiue7OjX5YeOlDnB FxhbnNpXGRlZmxhbmcxMDMz VVL8pnEoUACeRRmhATSwGDz sBv0agKJgfQvxYtNrAQLtz9 tjofLNgsgaxWc3x3jrFTGoS bG9kHRcBHydN8ipjbJmzIVh QEQgIBt5eT52FHVbyX1xoTV vGMlimlWlVcK5NWdtGWQgKb M8QFDyuSIqNXEpH4ypTBHwM XreKLLxZAzziZEsTKA8fNuz y6P1bAZgeYXfkCpeOwTxPiF aSVTLf6FgOKs6fMzzX7LpIF DuYsL3mNHlKYTsPBgwOSPrD AZqzmD1eK52VEbpeoZ0dLZs c5Fka57wd517sR7xqICyCND 6UIYxQEGdwLCcMYAmOSL3ZP AjnVGmG2h3MbWtgUOoX7O0Y wUctWVeZ0Y1EiMyiFNbD0Q9 XiJmpXNmYXFcpPXjZl5dkCV htMTduc0ljr01MBF1y5CvoR fxBJM4QPY1MjJzIg7edWUxQ XVyCF3gYhTzvUCiGJQsac60 gSmrQIjxkqOsmY3cBwYiIYO ywIRwVCOvKO4dkFUmGJIjbB 5ucmxjXHBnYnJkcmhlYWRcc ErzbgAqLg7xnSybALQ6UVqg T3rzkG4lExB1THuxV3lyhM4 mBOs9PBsadDB1UOWjvR4aCX 7knjdvh2hoPfCnSK9fnmksz 1jeIqBuLK6cwjw2i0lrShCv UD0bhjdep2hjKxWkPSrwMXO hxnobHFGac2CeguapTLUul5 JwT4OluPwkO19jhPyrS12lQ TXbwPgttO4bwZfsrC2uQvFm ZnMyNFxxbFxwbGFpblxmMVx mczIwXGxhbmcxMDMzXGhpY2 ktEiFlPTNsvSmeHXzbi1YwT VAuTXOqYxMuKhfLKPWdWf2Y TVyaLYLCJzKEFBHHWVXDR8W LLFGXOFJDSXADV579ZRXftd PbQLZaADZKY8yRRNQTXRYXO 2VOUMIUO5ODYZNMDWGOSBFG CJQFWUeYYwyMVA7RGSwJVjN VMtZpBUYDS7GZFtSPA0JYQH KBC54vEFOlorQyHLGpFOXAG lXbAeZCFl3OUSNoyMDwWIGh BDIhJBSTQQ4mHL7ORKLIAfE iZUoDP9VHLUVTJ6HYRZpHHu XFXMWVGA9lYOgLWe4TJlRWQ BGMJCEOS1MRL7UzEp9TCBJL BS1DHUTplnEfCOMqCBBEW94 LKTYYL0HYNWwNHwCNAFXILJ 3iS0hIJIKLCGCGGCXVBeQNM dPVU7XZQHKVB3LNL79VSOqS PIzFWHFgrc77PKW7VqMcp7N 1QWM2VLMbWHIjt4ukEJPbpZ FuZzEwMzNcZnRuYmpcdWMxX HQdPsAbq3nks502oNOxq4rb SUUuRfJ9vDSzAWLkwVJmF66 6TNSwOHlac7ugm8SvJKHqkE Qbk9V7HHZTovijqRc2qPcxL 48vt8L1RmiiN7fdGRCxRTWd T9WiYC8dYPAsJvi2DYG1EGT 1YFUgLHFgZ7OnDL2wQKBxpJ BpJZb6l5vsdGogBNDsREW9a 9pnGMmyvoLkCR4osn1kcRp6 r7kqclGyWOEeOAUhoTOZTXE pX3WrgQdxOp3ohPs7vXfrSx hyELD7Ozo5OO2xet95mlo8z FtcUKYvraztCwM2KWxqPIQr vzxmUKs7QTcuCXIgmHI8AOE irHAvI3CeFXPeYO9nfxz6UD T6ZMqqLWXkAyT0SSHyzANfI BVtdZgrQBpts049IXZ7FqAd KP4aJ7Qum5I6lV7ovZWcBYB bvTYxFiSnIIYcjd4crCAaGK pik1IoVML1iuU2iUPsxPYwG BXrNnQ7NPnzKS1djl36YRKl ZDP6jl2zoEYvoYpzsfBwrKU jAUqzT6IgMECrz934WSOzO9 GxGYNxj5P2bwXvYvVlRGDoe FW7ntU8OGQpFI4hudxub0ww IEiaJVspPFUwarT9zxU0VDF zwHXvY6BafN7mMAZbSR5gdo hib4cpZPI4MOpsKWGoLIL3P gYwHVGzl4Fbvhr9IyGpw4Ww sWOkEJekA22mn524ZDRvwcR oO8nyfZRchmotqXOgexukPD lnhxT9XWRyHVobmgqrESUnJ TpeZ8lmCySfNPRxnIbzWThv t5VcXTCdTNKyKsRtxOPsOIB qJrp2VUAhuYLkOGQzAeZdN0 mwxdsbZdOFCPPwn7nfC7jtu PZBmHMmL3HhRAoltcUmTOrx CHddRUT7HOX1Ou64MlA1JZV hcn19 CPT Code(s) (test code v6bviFEnXPWzwEDyYeEpRSL = 3352) dOQQnd9uiEAGegHSsVwBfOm NcZnRuYmpcdWMxXGRlZmYwe 7gfh518bFZxi3fmAYFnNhG6 pPQmMIFisOVjO936j2lci3x zouIzxLP4TDKjBKS2CRewjd QdckY4RSzjkUMhDwQ9JRtsc vCpBPtzuxQpjcMkKhm0CQVe N834VCT6pBkqn3rlTSZ1TTC jVGDoJxVxSu9kcYXuJ367MG NtMUYNULJjfTe5FFKjizYfe hVllUOCm017N448w0agBPMc keZjgKgLptwsf4niU817TIK hcGVydzEyMjQwXHBhcGVyaD N3TRHyKP4awlfrXkOrLE1fv ecyXwBkIU3afzw9GbPpLI5k cmdiNzIwXGhlYWRlcnkwXGZ zp6VesaawXA4yT6Hex8W2bC 9maXRcZGVmdGFiNzIwXGZvc t7peNHdVKmfj4QjIIM5fzC0 dRExlXKoTJVyFI73Xzqfe7M sJgruOMG4WDEdxrIvt3Qup3 caUrQuvuYzX2fpF7ZcSHPoA RMdPHBgCxKggzIxm6Oam2Do qFGzqQa1u8tmJIGkXYPunCp tp1mbDTN9VXCmE9L5uRRmo4 wxSEqrKBZveBD8bdkpVZxoD HNphiQ5qwvrBQlsGAYmuQW3 bomfUAcrOUAjKjD7nupjESo nIXFhTER7FNazi217CKB8MI xzYmtwYWdlXHBnbmNvbnRcc GduZGVjXHBsYWluXHBsYWlu XGYwXGZzMjRccWxccGxhaW5 jEgLsOwHrFWykWH4hPQWpA4 gnmAUbHANgZWOiF7kwAyWgh G3joGjvTGyfdyVzSYn4UhN7 EFK3GFInRCyzBHD9 CLINICAL HISTORY (test r2lkpHTzNDQyhSXrCnOnELY code = 3351) oCCPvl4ndOTSggGOwTbRoUs NcZnRuYmpcdWMxXGRlZmYwe 8hij581wVErk4cnUVAdJkP7 uHDmUZWclAOmK369MROwIIr oc9gdh2IxIRYwkPZss4P6ZC FSpuyajEl6xCioV44xv7J2D disK1tmWFNkMQWpN3IgRR9g BISiCns5SRL8QEE7TZWdGYX wX8EuFE7qTDLvdAMmBTt9l0 onxYkjHAYrPIV6r1onCLvwx qThYN9rya3toIu4f4llvkSh WTShHJIpjVAFGOPsD2PznJd eIt2phVl1hRcjVoalLIZ2Pa p1CX3mnt31aqv1dGjmTLKnj tulWvM0BCovUMEipmanINi2 MFxtYXJnbDcyMFxtYXJncjc yMFxtYXJndDcyMFxtYXJnYj yaGVzlGVOwCUP2YPjqk383C QJ2DFtjm0ihe9wzaHDtOxy6 YDQrNqBkRwpqSRnmz8Bvb6j nLIKetj6vMOM0wCPxsUdol2 H9sRRdYYRjlCJtokNqZHBpH uP5XGvtJP5onf83YLNuNEY3 tz4rxQMviAisynIsnWNpXLq iT7FiMWUou732ZJJmD6ViWY Nfq3V1bdEvLqIdNGFueMQ4p wL1CCLvNJs6wYTmziS4jiTh qAKaM1mauX43DhYucMIxB9J jzC79YhXeiXBeZ9GvcP43Sv PrkSQaZ7ZsqE28DcFgdOZjV EReaAUmWe5tmMZpqWJsq5Ot mAWhOJrsY80bs843TVJqkeC dQ6mlvPUerrbtzJUikwkyPM zimmS3OXk0kbJlwkxedGcwt GFpblxmMVxmczIwXGxhbmcx BVRxGQemR6niNqUhQAGojKi sKLkku5AkLQJeUYAnJfEmPe 8kBCezQTkigchif5StX1pnB Ytnh366udNjTFqzfULkENvi VI3cm8SpwAWfKTwXEUUfFVl REG3gyYkpPAWuZSbuUJvjMW IkNMMqUTAdACLrUVF9YaK0F 9xyNYA7 SPECIMEN SOURCE (test u6vlqPYzNERzxKDxSpSjWME code = 3377) uVKYlm7vbLDZoeLVrEnYzVr NcZnRuYmpcdWMxXGRlZmYwe 3xns299qGZut2enCMJzTdV2 nIFdKDLidRBqO240j4bxf5z teoChsBJ8QBRvTLH2EDfbuk DdvyQ7JNguhDIvVwC6PLvtm aUuGRbazwMbrjCkJxu9FCIg T185GTF1zOtsd8xrFAZ1HEF qHPBdDzDqVz6fqCNaJ932RP OgUAWGTJWvrGz4MAIpttCtf iNxqMSQy104V335j0onWZMs laXnePzMuvrza1teJ363EEH hcGVydzEyMjQwXHBhcGVyaD I4ELQiLF5imlmjBrBmCO5pr elbQhVuGK6tqxo6MxFbIX7o cmdiNzIwXGhlYWRlcnkwXGZ zk2VtumzgWM3kX0Zrk4M2yY 9maXRcZGVmdGFiNzIwXGZvc a6jmOQtQSuza7MoOOF5siX6 iDPgbRSqXGGjVB90Ucwjv2K mEtuaXJL3NCIophDxk3Rer8 bhRrGkeaXtR1mcP6WeOTNeU WCqWAJzRyCnnfTbk2Xzb8Qv fGBmwKl7j1cqARPtHVXthTw xa8uhNUQ2VARvI8E3sZBnj7 bxZQwwMTMlbYW0mhvoVGdfB HYoxdE4erotMVynNAQuzED3 kewsNBrlBCTzRvH4jetbVIx mSQXeLUH9TFerj859ANT5HK xzYmtwYWdlXHBnbmNvbnRcc GduZGVjXHBsYWluXHBsYWlu XGYwXGZzMjRccWxccGxhaW5 oHjEeZuHxQThvUX3uEDJpM1 nipRHgUTBoFMRnD8moEgCqf M0slYmxQTcgicItXLNqi8Hx NZQpF4u8RSSfnf4= GROSS DESCRIPTION s7vtdWMbFBUulGHoNoReJXX (test code = 3366) aWBRtd3cpOHEpiYIwQxQiMw NcZnRuYmpcdWMxXGRlZmYwe 2gii453eKEha4mhDUUcFuK5 jEPvYYFfvAGeJ200g3qvt2e nlnYfhAG8GQMgMPC9IRyhxc ZfbpD7YUwzvSAmGgM1JElsk wWwPNfnmyXwhxXgRrm8PSJd O634MVU3fLuks7ouZVP9WTF bCRAbQnYrHs0tcUAcG473ZM IvHTNTQZJwoOs3ZFIitpZio lBwtGTYc316A656f1chQFCg qyLpzRjPfqckx0iaP536XDS hcGVydzEyMjQwXHBhcGVyaD B9TLReOM2vichdCgOpKJ5bx emzAdYlST1dmut1DzRuRB1m cmdiNzIwXGhlYWRlcnkwXGZ gh4VojjkxHQ5eA1Tdt4C2lT 9maXRcZGVmdGFiNzIwXGZvc l9yeINoUWned2AoIPN9vnQ9 zLVprMMnTWQcXL43Jqokb3H wDyjpTIV4EQPxozUqe7Hjs3 raGlQkpxCnS5opT2QrWFAgQ UGnFSYdTvPseaBcs3Jdc9Bj vLDjlMp1g7bsYWSaUNJcsVi xq9aiZFR5LKUiK8V0mBTuj2 jqBSwgFETywFV4aqldPMidA FQcwxO5okcbAHhqFABafFU5 gpdrWYowFHPlCgX3qwecTRz cAVRfNAU7AEmia567AAT2HV xzYmtwYWdlXHBnbmNvbnRcc GduZGVjXHBsYWluXHBsYWlu XGYwXGZzMjRccWxccGxhaW5 pNbFkViNdLLvhPF2sBXCxB7 dbzLGsFZCvGDOrY4bjZtXej N1fhZbyKNcxmcEhPWCnC1Th frAnEGydKWGsgv9hyIanAJz zPbFmVXYvf2o9qEF1dFLuzA A1aTKgzNvlRF3vjMLqFEFxM 0Hlp6bpqmKgzY2nMYZzOK3r VUWveIbulNNpx540KvWlzaI kOAPqCoYstYL2OaJraHI7Ml IeU21tvwlotHWaqULeqfSzV MCcnEUwb2ZaJXRouOI8IOLs e11lAFsatYnozTykUfBozDf nhYTsNBonMB07RmFrTMatXU EsuU8fwFLlwIPqKYBevaktL V6uWZEsg3QwSClvXCFcHT4j KKqjIm90ZMRnOQHvgzC0eRH vnbU8VHKzlZXzdC9fMSU6OF UdXYIysnV4tU66yiBuyYCnU R0zEWUqdHT5EVZar54szJvq dCBpcyBpbnZvbHZpbmcgdGh qDAvfwIOkEKctEPJaWKD2PU 9mIHRoZSBmaXJzdCBkaWdpd CBhbmQgbWVkaWFsIGFzcGVj hKEoIuU3cJRvEg90arFfXSO oG1z7DZXiwjNhfJVfiFPsid Q1gWCpCWCqODBskVJves0zV OJbNLDqc2tcKVWcTVAcz5J6 EJYhi1S4XDObXGHspX0kDEx vx9SlAWZtsQRjNyPoSIezYB ErTCObsAboytipNEOwDBX3O VUuLy6eWYWuygZ4OB7crFMf sS29VHZ1nfTiWUY0bVO4NXZ zJW2vJDWtxm5gHNZJKDPfHR WuxpPluAc1PAXeCVD5oP3we tAtchVll2HzdTk6zQKmANCx FERnjXsyh3J2FFHriyxoHRG xP8AvsBxdtjAxg2YjEGCyer ZWBN4qCOFtk97xSF9rKHQgb C9fDA3eKWXbGjYjnFpvy8Ta GW8pkpqosaYinlXvSSQaYHP dwpJWVm6CJj4rf80vQO5ads hivrUbu2eeu6debkbbENZqM ExuoTJaV8K1kQ9lWICgsnJL YR1nl1ajWSngn7xnqgqcVRE vXJUcl4hoqhPbSKXdh36qAG 5kIHVuZGVybHlpbmcgYWZmZ GQ1HQKxSz8gFVWlx2umi0bc tjjvXKPrBRbzdNNbS4G5pU7 uXHBhclxwYXIgUGlsYXIgQX JndWVsbGVzLCBQQSAoQVNDU CljbVxwYXJccGFyXHBhcn0= MICROSCOPIC r1oxyBAkQWKmoZZiTmReXUA DESCRIPTION (test code kPNAkj0gdGUJdrFSsFuRnZl = 3371) NcZnRuYmpcdWMxXGRlZmYwe 7xuo383lLBcu3gpHYShHaN5 yYUmAOIzoRMjX503t5zal7a sbwOqhIT6LZSsXIQ0ETgwkc VtiaU9HTqngNJnJeN3DXlsg dDeXXytcgZtjhAlByg9KRHh P435WYQ4kQwqr3yiHWV2HPB oRYSuPqJbRz8gyXKoA463OH NiAXCQJETfqMz1BIUxsmElk zVguKFOw400T886g7rvMMWc ziLkhBjAqdehb5nmQ578UXP hcGVydzEyMjQwXHBhcGVyaD W6MOWvLZ4sarfvLdEuHE4sr phbHrIuAA3xdba6TeSeOR6b cmdiNzIwXGhlYWRlcnkwXGZ yf1InqttjER6fO5Urw8I9lT 9maXRcZGVmdGFiNzIwXGZvc z0kgGNvVXfzo3NyVAL0lkW8 lGEjkCDoTAKkON27Hhudq7A fCuewWSL8THHusgGps7Aiz8 ixLpJaelXfZ3dyK0ChKSFkA DRvKARsLoXimjWbo0Egr6Ot gFHdaKn8j9gnQFNgHPVxgHq ln8ztSNC5KZKnH6W1xWJqo7 kpNJmoSLKixNW3sjoeCJffA WDlgaO8zydwRCfkZRQxwRY2 ujbfRPfuJIUhIeM7fzevABg fTPVgBSM8MQdiy399ZIF4YK xzYmtwYWdlXHBnbmNvbnRcc GduZGVjXHBsYWluXHBsYWlu XGYwXGZzMjRccWxccGxhaW5 zAdQkPhTjIRvgDB5ySXUdH2 kvjQQrLDKeMPEaW2bhJcEup I5rcMogQXhxukViICKtjuOl bz7gGM6mhTTfeW== [facility] [id number] 18:37:00Surgical Pathology Report Case: [id number] Authorizing Provider: Gabriel Stovall DPM Collected: 12/05/2019 01:01 PM Ordering Location: [facility] Received: 12/05/2019 01:40 PM SERVICES Pathologist: Naresh Tillman MD Specimen: Foot, Right, right foot amputation RIGHT FOOT, TRANSMETATARSAL AMPUTATION: - SKIN AND SOFT TISSUE WITH ACUTE INFLAMMATION AND ABSCESS FORMATION, AND NECROSIS - SKIN AND SOFT TISSUE RESECTION MARGIN, INVOLVED BY ABSCESS FORMATION - BONE RESECTION MARGIN WITH FEATURES OF ACUTE OSTEOMYELITIS Signing Pathologist Direct Phone Line: [phone] signed by Naresh Tillman MD on 12/15/2019 at 6:37 PM16877, [id number]-[id number] surgical wound, initial encounter [[id number]]10141, 05650, 31221, 56656Xknc, rightReceived in formalin labeled with the patient's [...] affected bone is shabazz-yellow, trabeculated and firm. Account Resolution Specialist sections are submitted as follows:Section codeA1-lesion and skin and soft tissue margin en uofmA7-R4-itry margin following decalcificationA4-skin lesionA5-skin lesion and underlying affected bone following decalcificationSHARON Leon (ASCP)cmPerformed.POCT-GLUCOSE [id number] 16:55:00 Test Item Value Reference Range Interpretation Comments POC-GLUCOSE METER 149 mg/dL 70-110 H : TESTED A T [facility] 6720 (BEAKER) (test code = [facility], 1538) 82102: Director Of Operations Support/Techni herson ID = [id number] for PAVAN ZUÑIGA POCT-GLUCOSE [id number] 11:57:00 Test Item Value Reference Range Interpretation Comments POC-GLUCOSE METER 251 mg/dL 70-110 H : TESTED A T [facility] 6720 (BEAKER) (test code = [facility], 1538) 17024: Director Of Operations Support/Techni herson ID = [id number] for HU NTER, HIWITHA Surgically obtained culture + gram [id number] 10:43:00 Test Item Value Reference Range Interpretation Comments Result (test code = 6463-4) No growth Gram Stain Result (test No organisms seen code = 1123) [facility] [id number] 10:43:00 Test Item Value Reference Range Interpretation Comments CULTURE (BEAKER) (test No growth code = 1095) GRAM STAIN RESULT <1+ White blood cells (BEAKER) (test code = seen 1123) GRAM STAIN RESULT No organisms seen (BEAKER) (test code = 06952) POCT-GLUCOSE [id number] 07:10:00 Test Item Value Reference Range Interpretation Comments POC-GLUCOSE METER 130 mg/dL 70-110 H : TESTED A T [facility] 6720 (BEAKER) (test code = [facility], 1538) 82548: Director Of Operations Support/Techni herson ID = [id number] for HU NTER, HIWITHA [id number] 06:12:00 Test Item Value Reference Range Interpretation Comments MAGNESIUM (BEAKER) (test code = 2.3 mg/dL 1.6-2.6 627) Director Of Operations Support ID - PIAYA LBASIC METABOLIC [id number] 06:12:00 Test Item Value Reference Range Interpretation [...] S NOT APPLICABLE FOR DIALYSIS PATIEN TS. Director Of Operations Support ID - PIAYA LCBC (HEMOGRAM ONLY)2019-12-15 05:22:00 [...] 0-0 (BEAKER) (test code = 413) POCT-GLUCOSE [id number] 21:27:00 Test Item Value Reference Range Interpretation Comments POC-GLUCOSE METER 225 mg/dL 70-110 H : TESTED A T [facility] 6720 (BEAKER) (test code = [facility], [facility]8) 55240: Director Of Operations Support/Techni herson ID = [id number] for ZOILA GAMEZ POCT-GLUCOSE [id number] 17:30:00 Test Item Value Reference Range Interpretation Comments POC-GLUCOSE METER 219 mg/dL 70-110 H : TESTED A T [facility] 6720 (BEAKER) (test code = [facility], 1538) 25416: Director Of Operations Support/Techni herson ID = [id number] for SA NCHEZ, KARY POCT-GLUCOSE [id number] 12:19:00 Test Item Value Reference Range Interpretation Comments POC-GLUCOSE METER 184 mg/dL 70-110 H : TESTED A T [facility] 6720 (BEAKER) (test code = [facility], 1538) 97728: Director Of Operations Support/Techni herson ID = [id number] for SA NCHEZ, KARY POCT-GLUCOSE [id number] 08:06:00 Test Item Value Reference Range Interpretation Comments POC-GLUCOSE METER 126 mg/dL 70-110 H : TESTED A T [facility] 6720 (BEAKER) (test code = [facility], 1538) 42418: Director Of Operations Support/Techni herson ID = [id number] for SA NCHEZ, KARY [id number] 06:11:00 Test Item Value Reference Range Interpretation Comments MAGNESIUM (BEAKER) (test code = 2.3 mg/dL 1.6-2.6 627) Director Of Operations Support ID - FARHAT LBASIC METABOLIC [id number] 06:11:00 Test Item Value Reference Range Interpretation [...] S NOT APPLICABLE FOR DIALYSIS PATIEN TS. Director Of Operations Support ID - PIAYA LCBC (HEMOGRAM ONLY)2019-12-14 05:21:00 [...] 0-0 (BEAKER) (test code = 413) POCT-GLUCOSE [id number] 21:54:00 Test Item Value Reference Range Interpretation Comments POC-GLUCOSE METER 240 mg/dL 70-110 H : TESTED A T [facility] 6720 (BEAKER) (test code = [facility], 153) 09998: Director Of Operations Support/Techni herson ID = [id number] for GREG BARBOSA POCT-GLUCOSE [id number] 17:05:00 Test Item Value Reference Range Interpretation Comments POC-GLUCOSE METER 145 mg/dL 70-110 H : TESTED A T [facility] 6720 (BEAKER) (test code = [facility], 153) 44417: Director Of Operations Support/Techni herson ID = [id number] for Do minguez, Abner SPIN/CONCENTRATION [id number] 12:25:00 Test Item Value Reference Range Interpretation Comments Concentration charged (test code = Done 2657) [facility] [id number] 12:25:00 Test Item Value Reference Range Interpretation Comments CONCENTRATION CHARGED (BEAKER) (test Done code = 2657) POCT-GLUCOSE [id number] 11:27:00 Test Item Value Reference Range Interpretation Comments POC-GLUCOSE METER 294 mg/dL 70-110 H : TESTED A T [facility] 6720 (BEAKER) (test code = [facility], 153) 54362: Director Of Operations Support/Techni herson ID = [id number] for Do minguez, Abner POCT-GLUCOSE [id number] 07:32:00 Test Item Value Reference Range Interpretation Comments POC-GLUCOSE METER 109 mg/dL 70-110 : TESTED A T [facility] 6720 (BEAKER) (test code = [facility], 1538) 84925: Director Of Operations Support/Techni herson ID = [id number] for Do minguez, Abner CBC (HEMOGRAM ONLY)2019-12-13 06:36:00 Test Item Value [...] WBC 0-0 (BEAKER) (test code = 413) [id number] 05:43:00 Test Item Value Reference Range Interpretation Comments MAGNESIUM (BEAKER) (test code = 2.3 mg/dL 1.6-2.6 627) Director Of Operations Support ID - LINDSAY WBASIC METABOLIC [id number] 05:43:00 Test Item Value Reference Range Interpretation [...] S NOT APPLICABLE FOR DIALYSIS PATIEN TS. Director Of Operations Support ID - LINDSAY WPOCT-GLUCOSE [id number] 21:23:00 Test Item Value Reference Range Interpretation Comments POC-GLUCOSE METER 225 mg/dL 70-110 H : TESTED A T [facility] 6720 (BEAKER) (test code = [facility], 153) 00407: Director Of Operations Support/Techni herson ID = [id number] for CRESENCIO BAH POCT-GLUCOSE [id number] 17:01:00 Test Item Value Reference Range Interpretation Comments POC-GLUCOSE METER 199 mg/dL 70-110 H : TESTED A T [facility] 6720 (BEAKER) (test code = [facility], 1538) 76461: Director Of Operations Support/Techni herson ID = [id number] for PAVAN ZUÑIGA POCT-GLUCOSE [id number] 12:55:00 Test Item Value Reference Range Interpretation Comments POC-GLUCOSE METER 148 mg/dL 70-110 H : TESTED A T [facility] 6720 (BEAKER) (test code = [facility], 1538) 14516: Director Of Operations Support/Techni herson ID = [id number] for KYLER MOHAMUD POCT-GLUCOSE [id number] 08:06:00 Test Item Value Reference Range Interpretation Comments POC-GLUCOSE METER 179 mg/dL 70-110 H : TESTED A T [facility] 6720 (BEAKER) (test code = [facility], 1538) 68580: Director Of Operations Support/Techni herson ID = [id number] for MA RTIN, CHIANNA CBC (HEMOGRAM ONLY)2019-12-12 06:52:00 Test Item Value [...] WBC 0-0 (BEAKER) (test code = 413) [id number] 06:47:00 Test Item Value Reference Range Interpretation Comments MAGNESIUM (BEAKER) (test code = 2.3 mg/dL 1.6-2.6 627) Director Of Operations Support ID - LABASIC METABOLIC [id number] 06:47:00 Test Item Value Reference Range Interpretation [...] S NOT APPLICABLE FOR DIALYSIS PATIEN TS. Director Of Operations Support ID - LAPOCT-GLUCOSE [id number] 21:12:00 Test Item Value Reference Range Interpretation Comments POC-GLUCOSE METER 285 mg/dL 70-110 H : TESTED A T [facility] 6720 (BEAKER) (test code = [facility], 153) 54625: Director Of Operations Support/Techni herson ID = [id number] for CRESENCIO BAH POCT-GLUCOSE [id number] 16:56:00 Test Item Value Reference Range Interpretation Comments POC-GLUCOSE METER 226 mg/dL 70-110 H : TESTED A T [facility] 6720 (BEAKER) (test code = [facility], 1538) 68826: Director Of Operations Support/Techni herson ID = [id number] for WI LLIAMS, TYNEKA POCT-GLUCOSE [id number] 11:57:00 Test Item Value Reference Range Interpretation Comments POC-GLUCOSE METER 293 mg/dL 70-110 H : TESTED A T [facility] 6720 (BEAKER) (test code = [facility], 1538) 56634: Director Of Operations Support/Techni herson ID = [id number] for [place] LLIAMS, TYNEKA POCT-GLUCOSE [id number] 07:36:00 Test Item Value Reference Range Interpretation Comments POC-GLUCOSE METER 152 mg/dL 70-110 H : TESTED A T [facility] 6720 (BEAKER) (test code = [facility], 153) 15106: Director Of Operations Support/Techni herson ID = [id number] for [place] LLIAMS, TYNEKA [id number] 06:31:00 Test Item Value Reference Range Interpretation Comments MAGNESIUM (BEAKER) 2.4 mg/dL 1.6-2.6 Specimen slightly (test code = 627) hemolyzed Director Of Operations Support ID - PIAYA LBASIC METABOLIC [id number] 06:31:00 Test Item Value Reference Range Interpretation [...] S NOT APPLICABLE FOR DIALYSIS PATIEN TS. Director Of Operations Support ID - PIAYA LCBC (HEMOGRAM ONLY)2019-12-11 05:58:00 [...] 0-0 (BEAKER) (test code = 413) POCT-GLUCOSE [id number] 21:34:00 Test Item Value Reference Range Interpretation Comments POC-GLUCOSE METER 290 mg/dL 70-110 H : TESTED A T [facility] 6720 (BEAKER) (test code = [facility], 1538) 44955: Director Of Operations Support/Techni herson ID = [id number] for ZOILA GAMEZ POCT-GLUCOSE [id number] 16:49:00 Test Item Value Reference Range Interpretation Comments POC-GLUCOSE METER 247 mg/dL 70-110 H : TESTED A T [facility] 6720 (BEAKER) (test code = [facility], 1538) 62686: Director Of Operations Support/Techni herson ID = [id number] for CHANDAN PADRON POCT-GLUCOSE [id number] 11:15:00 Test Item Value Reference Range Interpretation Comments POC-GLUCOSE METER 244 mg/dL 70-110 H : TESTED A T [facility] 6720 (BEAKER) (test code = [facility], 1538) 86943: Director Of Operations Support/Techni herson ID = [id number] for CHANDAN PADRON [id number] 08:20:00 Test Item Value Reference Range Interpretation Comments MAGNESIUM (BEAKER) (test code = 2.4 mg/dL 1.6-2.6 627) Director Of Operations Support ID - MINERVA BBASIC METABOLIC [id number] 08:20:00 Test Item Value Reference Range Interpretation [...] S NOT APPLICABLE FOR DIALYSIS PATIEN TS. Director Of Operations Support ID - MINERVA BPOCT-GLUCOSE [id number] 07:50:00 Test Item Value Reference Range Interpretation Comments POC-GLUCOSE METER 239 mg/dL 70-110 H : TESTED A T [facility] 6720 (BEAKER) (test code = [facility] [place], 1538) 84213: Director Of Operations Support/Techni herson ID = [id number] for CHANDAN PADRON CBC (HEMOGRAM ONLY)2019-12-10 07:07:00 [...] 0-0 (BEAKER) (test code = 413) POCT-GLUCOSE [id number] 21:25:00 Test Item Value Reference Range Interpretation Comments POC-GLUCOSE METER 248 mg/dL 70-110 H : TESTED A T [facility] 6720 (BEAKER) (test code = [facility] [place], 1538) 03961: Director Of Operations Support/Techni herson ID = [id number] for Barb Martins POCT-GLUCOSE [id number] 17:15:00 Test Item Value Reference Range Interpretation Comments POC-GLUCOSE METER 221 mg/dL 70-110 H : TESTED A T [facility] 6720 (BEAKER) (test code = [facility] Braulio [facility], 1538) 67457: Director Of Operations Support/Techni herson ID = [id number] for HU NTER, HIWITHA POCT-GLUCOSE [id number] 12:00:00 Test Item Value Reference Range Interpretation Comments POC-GLUCOSE METER 220 mg/dL 70-110 H : TESTED A T [facility] 6720 (BEAKER) (test code = [facility], 1538) 83455: Director Of Operations Support/Techni herson ID = [id number] for HU NTER, HIWITHA [id number] 07:12:00 Test Item Value Reference Range Interpretation Comments MAGNESIUM (BEAKER) (test code = 2.4 mg/dL 1.6-2.6 627) Director Of Operations Support ID - ANGELINA FBASIC METABOLIC [id number] 07:12:00 Test Item Value Reference Range Interpretation [...] S NOT APPLICABLE FOR DIALYSIS PATIEN TS. Director Of Operations Support ID - ANGELINA FPOCT-GLUCOSE [id number] 07:04:00 Test Item Value Reference Range Interpretation Comments POC-GLUCOSE METER 176 mg/dL 70-110 H : TESTED A T [facility] 6720 (BEAKER) (test code = [facility], 1538) 75987: Director Of Operations Support/Techni herson ID = [id number] for HU NTER, HIWITHA CBC (HEMOGRAM ONLY)2019-12-09 06:51:00 Test Item Value [...] 0-0 (BEAKER) (test code = 413) POCT-GLUCOSE [id number] 22:22:00 Test Item Value Reference Range Interpretation Comments POC-GLUCOSE METER 248 mg/dL 70-110 H : TESTED A T [facility] 6720 (BEAKER) (test code = [facility] [place], 1538) 39764: Director Of Operations Support/Techni herson ID = [id number] for ZOILA GAMEZ Blood Culture - Routine (Left Venipuncture)2019-12-08 21:00:00 Test Item Value Reference Range Interpretation Comments Result (test code = No growth in 5 days 6463-4) [facility] [id number] 21:00:00 Test Item Value Reference Range Interpretation Comments CULTURE (BEAKER) (test No growth in 5 days code = 1095) BLOOD [id number] 21:00:00 Test Item Value Reference Range Interpretation Comments CULTURE (BEAKER) (test No growth in 5 days code = 1095) ANAEROBIC [id number] 17:38:00 Test Item Value Reference Range Interpretation Comments CULTURE (BEAKER) (test No anaerobes isolated code = 1095) POCT-GLUCOSE [id number] 16:42:00 Test Item Value Reference Range Interpretation Comments POC-GLUCOSE METER 193 mg/dL 70-110 H : TESTED A T [facility] 6720 (BEAKER) (test code = [facility], 1538) 39073: Director Of Operations Support/Techni herson ID = [id number] for TERELL GREENWOOD POCT-GLUCOSE [id number] 12:04:00 Test Item Value Reference Range Interpretation Comments POC-GLUCOSE METER 199 mg/dL 70-110 H : TESTED A T [facility] 6720 (BEAKER) (test code = [facility], 1538) 13908: Director Of Operations Support/Techni herson ID = [id number] for ASHUTOSH WALTERSADAMARISNDKaris POCT-GLUCOSE [id number] 08:08:00 Test Item Value Reference Range Interpretation Comments POC-GLUCOSE METER 168 mg/dL 70-110 H : TESTED A T [facility] 6720 (BEAKER) (test code = [facility], 1538) 71167: Director Of Operations Support/Techni herson ID = [id number] for ASHUTOSH WALTERSADAMARISNDKaris [id number] 07:27:00 Test Item Value Reference Range Interpretation Comments MAGNESIUM (BEAKER) (test code = 2.1 mg/dL 1.6-2.6 627) Director Of Operations Support ID - JORGE ALBERTO CBASI METABOLIC [id number] 07:27:00 Test Item Value Reference Range Interpretation [...] S NOT APPLICABLE FOR DIALYSIS PATIEN TS. Director Of Operations Support ID - JORGE ALBERTO CCBC (HEMOGRAM ONLY)2019-12-08 [...] 0-0 (BEAKER) (test code = 413) POCT-GLUCOSE [id number] 21:57:00 Test Item Value Reference Range Interpretation Comments POC-GLUCOSE METER 215 mg/dL 70-110 H : TESTED Bo T [facility] 6720 (BEAKER) (test code = [place] [facility], 1538) 52863: Director Of Operations Support/Techni herson ID = [id number] for BART LESLIE POCT-GLUCOSE [id number] 17:22:00 Test Item Value Reference Range Interpretation Comments POC-GLUCOSE METER 151 mg/dL 70-110 H : [facility] (test code = [facility] [place], 1538) 79036: Director Of Operations Support/Techni herson ID = [id number] for PAVAN ZUÑIGA OBTAINED CULTURE + GRAM [id number] 13:45:00 Test Item Value Reference Range Interpretation [...] No organisms seen (BEAKER) (test code = 452397) [id number] 06:32:00 Test Item Value Reference Range Interpretation Comments MAGNESIUM (BEAKER) 2.2 mg/dL 1.6-2.6 Specimen slightly (test code = 627) hemolyzed Director Of Operations Support ID - PIAYA LBASIC METABOLIC [id number] 06:32:00 Test Item Value Reference Range Interpretation [...] S NOT APPLICABLE FOR DIALYSIS PATIEN TS. Director Of Operations Support ID - PIAYA LCBC (HEMOGRAM ONLY)2019-12-07 05:39:00 [...] 0-0 (BEAKER) (test code = 413) POCT-GLUCOSE [id number] 21:14:00 Test Item Value Reference Range Interpretation Comments POC-GLUCOSE METER 165 mg/dL 70-110 H : TESTED A T [facility] 6720 (BEAKER) (test code = [facility], 1538) 13446: Director Of Operations Support/Techni herson ID = [id number] for GO NZALES III, LEILANI SPIN/CONCENTRATION [id number] 18:12:00 Test Item Value Reference Range Interpretation Comments CONCENTRATION CHARGED (BEAKER) (test Done code = 2657) POCT-GLUCOSE [id number] 16:48:00 Test Item Value Reference Range Interpretation Comments POC-GLUCOSE METER 155 mg/dL 70-110 H : TESTED A T [facility] 6720 (BEAKER) (test code = [facility], 1538) 22909: Director Of Operations Support/Techni herson ID = [id number] for HU NTER, HIWITHA POCT-GLUCOSE [id number] 12:18:00 Test Item Value Reference Range Interpretation Comments POC-GLUCOSE METER 163 mg/dL 70-110 H : TESTED A T [facility] 6720 (BEAKER) (test code = [facility], 1538) 29448: Director Of Operations Support/Techni herson ID = [id number] for MAXWELL RRIS, FINESSE ECG 12 [id number] 08:45:24Interface, External Ris In - 12/06/2019 8:45 AM CDTVentricular Rate 80 BPMAtrial Rate 80 BPMP-R Interval 160 msQRS Duration 86 msQ-T Interval 418 msQTC Calculation(Bazett) 482 msP [place] 0 degreesR Axis14 degreesT [place] 36 degreesSinus rhythm with occasional Premature ventricular complexes and Premature atrial complexesOtherwise normal ECGNo previous ECGs availableConfirmed by MD Bebe, Cristhian ([id number])on 12/06/2019 8:45:22 [facility] [id number] 07:11:00 Test Item Value Reference Range Interpretation Comments POC-GLUCOSE METER 106 mg/dL 70-110 : TESTED A T [facility] 6720 (BEAKER) (test code = [facility], 153) 37307: Director Of Operations Support/Techni herson ID = [id number] for HU NTER, HIWITHA BLOOD [id number] 06:00:00 Test Item Value Reference Range Interpretation Comments CULTURE (BEAKER) (test No growth in 5 days code = 1095) BLOOD [id number] 06:00:00 Test Item Value Reference Range Interpretation Comments CULTURE (BEAKER) (test No growth in 5 days code = 1095) [id number] 05:55:00 Test Item Value Reference Range Interpretation Comments MAGNESIUM (BEAKER) (test code = 1.8 mg/dL 1.6-2.6 627) Director Of Operations Support ID - PALOMA MBASIC METABOLIC [id number] 05:55:00 Test Item Value Reference Range Interpretation [...] S NOT APPLICABLE FOR DIALYSIS PATIEN TS. Director Of Operations Support ID - PALOMA MCBC (HEMOGRAM ONLY)2019-12-06 05:21:00 [...] 0-0 (BEAKER) (test code = 413) POCT-GLUCOSE [id number] 21:16:00 Test Item Value Reference Range Interpretation Comments POC-GLUCOSE METER 158 mg/dL 70-110 H : TESTED A T [facility] 6720 (BEAKER) (test code = [facility], 1538) 26980: Director Of Operations Support/Techni herson ID = [id number] for NZALES III, LEILANI ANAEROBIC [id number] 17:15:00 Test Item Value Reference Range Interpretation Comments CULTURE (AKER) (test No anaerobes isolated code = 1095) POCT-GLUCOSE [id number] 16:48:00 Test Item Value Reference Range Interpretation Comments POC-GLUCOSE METER 127 mg/dL 70-110 H : TESTED A T [facility] 6720 (BEAKER) (test code = [facility] Braulio [facility], 1538) 86130: Director Of Operations Support/Techni herson ID = [id number] for TERELL GREENWOOD RAD, FOOT, MIN 3 VIEWS, [id number] 16:43:00Reason for exam:->s/p debridementFINAL REPORT TECHNIQUE: Frontal, [...] IMPRESSION:Postoperative changes associated with transmetatarsal amputation. Signed: Rosines,Abdoul A. MDReport Verified Date/Time: 12/05/2019 16:43:31 Reading Location: [address] Radiology Reading Room XR foot 3 [...] Barbosaeport Verified Date/Time: 12/05/2019 16:43:31 Reading Location: [address] Radiology Reading [facility] GRAM [id number] 13:21:00 Test Item Value Reference Interpretation Comments [...] No organisms seen (BEAKER) (test code = 705536) POCT-GLUCOSE [id number] 13:08:00 Test Item Value Reference Range Interpretation Comments POC-GLUCOSE METER 127 mg/dL 70-110 H : TESTED A T [facility] 6720 (BEAKER) (test code = [facility], 1538) 78033: Director Of Operations Support/Techni herson ID = [id number] for RENEE ROGEL POCT-GLUCOSE [id number] 08:14:00 Test Item Value Reference Range Interpretation Comments POC-GLUCOSE METER 163 mg/dL 70-110 H : TESTED A T [facility] 6720 (BEAKER) (test code = [facility], 1538) 22482: Director Of Operations Support/Techni herson ID = [id number] for TERELL GREENWOOD [id number] 07:20:00 Test Item Value Reference Range Interpretation Comments MAGNESIUM (BEAKER) (test code = 1.8 mg/dL 1.6-2.6 627) Director Of Operations Support ID - PALOMA MBASIC METABOLIC [id number] 07:20:00 Test Item Value Reference Range Interpretation [...] S NOT APPLICABLE FOR DIALYSIS PATIEN TS. Director Of Operations Support ID - PALOMA MCBC (HEMOGRAM ONLY)2019-12-05 06:44:00 [...] 0-0 (BEAKER) (test code = 413) POCT-GLUCOSE [id number] 21:18:00 Test Item Value Reference Range Interpretation Comments POC-GLUCOSE METER 146 mg/dL 70-110 H : TESTED A T [facility] 6720 (BEAKER) (test code = [place], 1538) 21876: Director Of Operations Support/Techni herson ID = [id number] for Barb Martins Platelet Aggregation: Drug [id number] 17:58:00 Test Item Value Reference Range Interpretation Comments Arachadonic Acid 75 % 63-89 (test code = 5993-1) Interpretation (test Normal code = 27985-7) arachidonic acid and ADP results. No I7F00-gvmrp or aspirin-like drug effect. Pathologist: (test Arnav Rouse, code = 2621) Sabnie (electonic signature) Platelets (test code 349 See_Comment [Autom ated = 2656) message] The system which generated this result transmitted reference range : 150 - 450 K/CU MM. The referen ce range was not used to interpr et this result as normal/abnormal . ADP (test code = 74 % 62-100 78527-6) Platelet Rich Plasma 290 See_Comment [Autom ated [...] should not be based on a single test.Director Of Operations Support ID - [id number] [facility] HospitalPLATELET AGGREGATION: DRUG [id number] 17:58:00 Test Item Value Reference Range Interpretation Comments ARACHADONIC ACID 75 % 63-89 RESULT(BEAKER) (test code = 2138) PLATELET AGG DRUG Normal arachidonic INTERPRETATION (BEAKER) acid and ADP results. (test code = 2408) No Q1S10-yjnvc or aspirin-like drug effect. [id number] Arnav Rouse M.D. (BEAKER) (test code = (electonic signature) 2621) PLATELET COUNT AGG 349 K/CU MM 150-450 (BEAKER) (test code = 2656) ADP (BEAKER) (test code 74 % 62-100 = 4654) PLATELET RICH 290 k/cu mm 200-300 PLASMA(BEAKER) (test code = 2134) Platelet function studies by aggregation methodology on samples with platelet count <75,000/CU MMare unreliable; platelet function assessment should not be based on a single test.Director Of Operations Support ID - [id number]-GLUCOSE [id number] 16:20:00 Test Item Value Reference Range Interpretation Comments POC-GLUCOSE METER 141 mg/dL 70-110 H : TESTED A T [facility] 6720 (BEAKER) (test code = [facility], 1538) 15148: Director Of Operations Support/Techni herson ID = [id number] for CHANDAN PADRON POCT-GLUCOSE [id number] 11:53:00 Test Item Value Reference Range Interpretation Comments POC-GLUCOSE METER 138 mg/dL 70-110 H : TESTED A T [facility] 6720 (BEAKER) (test code = [facility], 1538) 21059: Director Of Operations Support/Techni herson ID = [id number] for CHANDAN PADRON POCT-GLUCOSE [id number] 08:18:00 Test Item Value Reference Range Interpretation Comments POC-GLUCOSE METER 93 mg/dL 70-110 : TESTED A T [facility] 6720 (BEAKER) (test code = [facility], 1538) 66056: Director Of Operations Support/Techni herson ID = [id number] for BARB QUEZADA [id number] 07:55:00 Test Item Value Reference Range Interpretation Comments MAGNESIUM (BEAKER) (test code = 1.8 mg/dL 1.6-2.6 627) Director Of Operations Support ID - JORGE ALBERTO CBASIC METABOLIC [id number] 07:55:00 Test Item Value Reference Range Interpretation [...] S NOT APPLICABLE FOR DIALYSIS PATIEN TS. Director Of Operations Support ID - JORGE ALBERTO [id number] 07:33:00 Test Item Value Reference Range Interpretation Comments PTT (test code = 37.4 See_Comment H [Automated message] 94636-2) The system [employer]OM[employer] generated this result transmitted ref erence range: 22.5 - 3 6.0 seconds. The reference range was not used to int erpret this result as normal/abnormal . Lab Interpretation (test Abnormal code = 83470-7) [id number] 07:[facility]00 Test Item Value Reference Range Interpretation [...] 0-0 (BEAKER) (test code = 413) POCT-GLUCOSE [id number] 21:23:00 Test Item Value Reference Range Interpretation Comments POC-GLUCOSE METER 143 mg/dL 70-110 H : [facility] ([facility] (test code = [facility], 153) 42441: Director Of Operations Support/Techni herson ID = [id number] for ZOILA GAMEZ POCT-GLUCOSE [id number] 17:01:00 Test Item Value Reference Range Interpretation Comments POC-GLUCOSE METER 143 mg/dL 70-110 H : [facility] ([facility]ER[facility] (test code = [facility], 153) 62823: Director Of Operations Support/Techni herson ID = [id number] for TERELL GREENWOOD POC ACTIVATED CLOTTING [id number] 14:53:00 Test Item Value Reference Range Interpretation Comments Activated Clotting Time 257 sec : 74 -137 seconds, (test code = 441) Baseline: TESTED AT [facility] 67[address] [facility], 770 30: Director Of Operations Support/Techni herson ID = [id number] for HI JORGE, CHONG [id number] 14:53:00 Test Item Value Reference Range Interpretation Comments ACTIVATED CLOTTING TIME 257 sec : 74 -137 seconds, (BEAKER) (test code = Baseli ne: TESTED AT 441) [facility] [address] [place] [address], 770 30: Director Of Operations Support/Techni herson ID = [id number] for HI JORGE, CHONG [id number] 14:12:00 Test Item Value Reference Range Interpretation Comments ACTIVATED CLOTTING TIME 235 sec : 74 -137 seconds, (BEAKER) (test code = Baseli ne: TESTED AT 441) [address], 770 30: Director Of Operations Support/Techni herson ID = [id number] for HI JORGE, CHONG POCT-GLUCOSE [id number] 11:20:00 Test Item Value Reference Range Interpretation Comments POC-GLUCOSE METER 170 mg/dL 70-110 H : [facility] (BEAKER[facility] (test code = [facility], 153) 22731: Director Of Operations Support/Techni herson ID = [id number] for TERELL GREENWOOD POCT-GLUCOSE [id number] 08:25:00 Test Item Value Reference Range Interpretation Comments POC-GLUCOSE METER 161 mg/dL 70-110 H : TESTED A T [facility] 6720 (BEAKER) (test code = [place], 1538) 66073: Director Of Operations Support/Techni herson ID = [id number] for TERELL GREENWOOD [id number] 07:44:00 Test Item Value Reference Range Interpretation Comments MAGNESIUM (BEAKER) (test code = 1.8 mg/dL 1.6-2.6 627) Director Of Operations Support ID - JUN CBASIC METABOLIC [id number] 07:44:00 Test Item Value Reference Range Interpretation [...] S NOT APPLICABLE FOR DIALYSIS PATIEN TS. Director Of Operations Support ID - JUN [id number] 06:52:00 Test Item Value Reference Range Interpretation [...] WBC 0-0 (BEAKER) (test code = 413) [id number] 00:10:00 Test Item Value Reference Range Interpretation Comments PARTIAL THROMBOPLASTIN TIME 95.1 seconds 22.5-36.0 H (BEAKER) (test code = 760) POCT-GLUCOSE [id number] 21:24:00 Test Item Value Reference Range Interpretation Comments POC-GLUCOSE METER 223 mg/dL 70-110 H : TESTED A T [facility] 6720 [facility] (test code = [facility]OR[facility] Ramsey [facility], 1538) 97284: Director Of Operations Support/Techni herson ID = [id number] for CRESENCIO BAH Vancomycin level, [id number] 19:47:00 Test Item Value Reference Range Interpretation Comments Vancomycin Tr (test code = 13.8 ug/mL -20 4092-3) BASIA (test code = BASIA) Director Of Operations Support ID - BS Lab Interpretation (test Normal code = 78765-7) [facility] HospitalVANCOMYCIN LEVEL, [id number] 19:47:00 Test Item Value Reference Range Interpretation Comments VANCOMYCIN TROUGH (BEAKER) (test 13.8 ug/mL 10.0-20.0 code = 522) Director Of Operations Support ID - [id number] 17:17:00 Test Item Value Reference Range Interpretation Comments PARTIAL THROMBOPLASTIN TIME 37.4 seconds 22.5-36.0 H (RICK) (test code = 760) POCT-GLUCOSE [id number] 16:57:00 Test Item Value Reference Range Interpretation Comments POC-GLUCOSE METER 193 mg/dL 70-110 H : TESTED A T [facility] 6720 (RICK) (test code = LOREE Ramsey [facility], 1538) 51084: Director Of Operations Support/Techni herson ID = [id number] for CHANDAN PADRON RAD, FOOT, MIN 3 VIEWS, [id number] 13:05:00Reason for exam:->s/p debridementFINAL REPORT CLINICAL HISTORY: s/p debridement TECHNIQUE: 3 views of the right foot COMPARISON: 12/01/2019 IMPRESSION: 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 There is gauze packing the soft tissue defect. The remaining bones appear intact. Signed: Pollo Cortezort Verified Date/Time: 12/02/2019 13:05:47 Reading Location: [facility] Radiology Reading Room POCT-GLUCOSE [id number] 12:35:00 Test Item Value Reference Range Interpretation Comments POC-GLUCOSE METER 216 mg/dL 70-110 H : [facility] T [facility] (test code = RAKELIL Braulio [facility], 1538) 67[address]: Director Of Operations Support/Techni herson ID = [id number] for FINESSE MERCEDES Arterial doppler leg, [id number] 11:50:13[facility] MKCKESSON CPACSRight Impression1. [...] + + + + + + !Prox [facility] ! !0 ! !Absent ! + + + + + + !Mid [facility] ! !0 ! !Absent ! + + +-- + + + !Dist [facility] ! !0 ! !Absent ! + + [...] Study 12/01/2019 LITA Age 74 Visit Number [id number] Gender Female Accession Number [id number] Date of 1945 Referring Suzanne Jenkins, Room Number 1019 Physician [employer] Certified Network Associate Chandler Alanis Interpreting Tarah Balderas Lucretia Physician [...] + + + + + + !Prox [facility] ! !0 ! !Absent ! + + +---- + + + !Mid [facility] ! !0 ! !Absent ! + + + + + + !Dist [facility] ! !0! !Absent ! + + + [...] !Biphasic ! + + + + + +[facility](Ankle/Brachial Index)2019-12-02 11:49:57Ejection [facility]ST[facility] ECHO HEART[facility] MKCKESSON CPACSRight Impression1. The posterior [...] Study 12/01/2019 LITA Age 74 Visit Number [id number] Gender Female Accession Number [id number] Date of 1945 Referring Suzanne Jenkins, Room Number 1019 Physician DO [employer] Certified Network Associate Chandler Alanis Interpreting Tarah Balderas S Physician [...] in cm/s ; Diameters are measured in [facility] POCT-GLUCOSE [id number] 09:24:00 Test Item Value Reference Range Interpretation Comments POC-GLUCOSE METER 232 mg/dL 70-110 H : TESTED A T [facility] 67[facility] (BEAKER) (test code = [facility], 1538) 92908: Director Of Operations Support/Techni herson ID = [id number] for VASHTI LINK Hemoglobin [id number] 08:08:00 Test Item Value Reference Range Interpretation Comments Hemoglobin A1C (test code = 4548-4) 10.0 % 4.3-6.1 H Lab Interpretation (test code = Abnormal 80010-2) [facility] [id number] 08:08:00 Test Item Value Reference Range Interpretation Comments HEMOGLOBIN A1C (BEAKER) (test code = 10.0 % 4.3-6.1 H 368) POCT-GLUCOSE [id number] 05:46:00 Test Item Value Reference Range Interpretation Comments POC-GLUCOSE METER 239 mg/dL 70-110 H : TESTED A T [facility] 6720 (BEAKER) (test code = [facility], 1538) 58664: Director Of Operations Support/Techni herson ID = [id number] for CRESENCIO BAH, [id number] 02:14:00 Test Item Value Reference Range Interpretation Comments ABO Grouping (test code = 2588) O Rh Factor (test code = 2589) POS [facility]Type and screen, [id number] 02:08:00 Test Item Value Reference Range Interpretation Comments ABO/RH AUTOMATED (BEAKER) (test O POSITIVE code = 2260) Ab Scrn (test code = 890-4) NEGATIVE [id number] 01:51:00 Test Item Value Reference Range Interpretation Comments MAGNESIUM (BEAKER) (test code = 1.8 mg/dL 1.6-2.6 627) Director Of Operations Support BRANDEN MONTOYA WBASIC METABOLIC [id number] 01:51:00 Test Item Value Reference Range Interpretation [...] S NOT APPLICABLE FOR DIALYSIS PATIEN TS. Director Of Operations Support BRANDEN MONTOYA [id number] 01:42:00 Test Item Value Reference Range Interpretation [...] 0-0 (BEAKER) (test code = 413) POCT-GLUCOSE [id number] 21:29:00 Test Item Value Reference Range Interpretation Comments POC-GLUCOSE METER 222 mg/dL 70-110 H : TESTED A T [facility] 6720 (BEAKER) (test code = [facility], 1538) 37731: Director Of Operations Support/Techni herson ID = [id number] for CRESENCIO BAH [id number] 19:59:00 Test Item Value Reference Range Interpretation Comments PARTIAL THROMBOPLASTIN TIME 76.3 seconds 22.5-36.0 H (BEAKER) (test code = 760) POCT-GLUCOSE [id number] 17:25:00 Test Item Value Reference Range Interpretation Comments POC-GLUCOSE METER 259 mg/dL 70-110 H : TESTED A T [facility] 6720 (BEAKER) (test code = [facility], 1538) 73746: Director Of Operations Support/Techni herson ID = [id number] for HOMERO VALERIO RAD, FOOT, MIN 3 VIEWS, [id number] 15:46:00Reason for exam:->gangrene FINAL REPORT CLINICAL HISTORY: [...] Cortez MDReport Verified Date/Time: 12/01/2019 15:46:27Reading Location: [facility] Radiology Reading Room SARS-COV2/RT-PCR ([facility])2019-12-01 14:10:00 Test Item Value Reference Range Interpretation Comments SARS-COV2/RT-PCR (test Not Detected Not Detected, Negative code = 8026111) SARS-COV-2 PERFORMING LAB [facility] (test code = 2445339) Negative results do not preclude SARS-CoV-2 infection [...] of the Act.Fact Sheet for Healthcare Pro viders:https://www.iCrimefighter.Local Lift/Documents/Xpert%20Xpress%20SARS%20CoV-2/Fact%20Sh eets/302-5902%49GBNQ-ZZX-4%20HEALTHCARE%20PROVIDERS%20FACT%20SHEET.pdfFact Sheet for Healthcare Patients:https://www.Vocation id.Local Lift/Documents/Xpert%20Xpress%20SARS%20CoV-2/Fact%20Sheets/302-9461%20SARS-COV -2%20PATIENT%20FACT%20SHEET.pdfPerforming Laboratory:[facility], [place] [id number] 12:34:00 Test Item Value Reference Range Interpretation Comments PARTIAL THROMBOPLASTIN TIME 47.2 seconds 22.5-36.0 H (BEAKER) (test code = 760) POCT-GLUCOSE [id number] 12:24:00 Test Item Value Reference Range Interpretation Comments POC-GLUCOSE METER 185 mg/dL 70-110 H : Notified RN/MD: (BEAKER) (test code = TESTED AT [facility] 9354 4375) [place], [address]: Director Of Operations Support/Techni herson ID = [id number] for HOMERO VALERIO C-Reactive [id number] 06:04:00 Test Item Value Reference Range Interpretation Comments CRP (test code = 676) 13.79 mg/dL 0-0.5 H BASIA (test code = BASIA) Director Of Operations Support ID - PIAYA L Lab Interpretation (test Abnormal code = 85657-2) [facility]COMPRE[facility] METABOLIC [id number] 06:04:00 Test Item Value Reference Range Interpretation [...] S NOT APPLICABLE FOR DIALYSIS PATIEN TS. Director Of Operations Support ID - PIAYA LC-REACTIVE [id number] 06:04:00 Test Item Value Reference Range Interpretation Comments C-REACTIVE PROTEIN (BEAKER) (test 13.79 mg/dL 0.00-0.50 H code = 676) Director Of Operations Support ID - PIAYA [id number] 05:28:00 Test Item Value Reference Range Interpretation Comments PARTIAL THROMBOPLASTIN TIME 35.0 seconds 22.5-36.0 (BEAKER) (test code = 760) 6 hours after starting heparin infusion and as indicated per sliding scaleAPTT 2019-12-01 05:27:00 Test Item Value Reference Range Interpretation Comments PARTIAL THROMBOPLASTIN TIME 33.8 seconds 22.5-36.0 (BEAKER) (test code = 760) Prior to initiating heparinPROTHROMBIN TIME/[id number] 05:26:00 Test Item Value Reference Range Interpretation [...] to initiating heparinCBC W/PLT COUNT & AUTO [id number] 05:12:00 Test Item Value Reference Range Interpretation [...] % 0-1 PERCENT (BEAKER) (test code = 8881)
[2020-11-07] MEDS ORDERED: ACETAMINOPHEN 325 MG TABLET ONE (23:09)
[2020-11-07] MEDS ORDERED: TRAMADOL HCL 50 MG TAB ONE (23:11)
--- NOTE | 2020-11-08 00:59 | EDPHYS ---
Physician Documentation [facility] Name: Maria Isabel Stacy Age: 75 yrs Sex: Female : 1945 Arrival Date: 11/07/2020 Time: 21:08 Bed 15 Private MD: Khai Don E ED Physician Ramy Donis HPI: 11/07 22:25 This 75 yrs old Female presents to ER via Ambulatory with complaints of Fall cp Injury. 22:25 Details of fall: The patient fell from an upright position, while walking, and struck a cp tile surface. Onset: The symptoms/episode began/occurred yesterday. 22:25 Associated injuries: The patient sustained injury to the head, contusion, cp sacrum/coccyx, painful injury, right foot, painful injury. 22:25 Severity of symptoms: in the emergency department the symptoms are unchanged, despite cp home interventions. Historical: - Allergies: 21:31 No Known Allergies; bb - Home Meds: 21:31 insulin [Active]; Metformin Oral [Active]; gabapentin oral oral [Active]; aspirin 81 mg bb Oral chew 1 tab once daily [Active]; - PMHx: 21:31 Diabetes - IDDM; Neuropathy; bb - PSHx: 21:31 right toes amputated; 2 stents to right leg; bb - Immunization history:: Adult Immunizations up to date. - Social history:: Smoking status: Patient denies any tobacco usage or history of. ROS: 22:30 Eyes: Negative for injury, pain, redness, and discharge. cp 22:30 Constitutional: Negative for body aches, chills, fever, poor PO intake. 22:30 Back: Positive for pain at rest, of the sacrum/coccyx. cp 22:30 MS/extremity: Positive for pain, of the right foot. 22:30 Neuro: Negative for altered mental status, loss of consciousness. 22:30 All other systems are negative. Exam: 22:35 Constitutional: The patient appears in no acute distress, alert, awake, cp non-diaphoretic, non-toxic, well developed, well nourished. 22:35 Head/Face: Normocephalic, atraumatic. cp 22:35 Eyes: Periorbital structures: appear normal, Pupils: equal, round, and reactive to light and accomodation, Extraocular movements: intact throughout, Conjunctiva: normal, no exudate, no injection, Sclera: no appreciated abnormality, Lids and lashes: appear normal, bilaterally. 22:35 ENT: External ear(s): are unremarkable, Nose: is normal, Posterior pharynx: Airway: no evidence of obstruction, patent. 22:35 Neck: C-spine: vertebral tenderness, that is mild, appreciated at C6 and C7, crepitus, is not appreciated, ROM/movement: pain, that is mild, with flexion, limited range of motion, is not appreciated. 22:35 Chest/axilla: Inspection: normal, Palpation: is normal, no crepitus, no tenderness. 22:35 Cardiovascular: Rate: normal, Rhythm: regular. 22:35 Respiratory: the patient does not display signs of respiratory distress, Respirations: normal, no use of accessory muscles, no retractions, labored breathing, is not present, Breath sounds: are clear throughout, no decreased breath sounds. 22:35 Abdomen/GI: Inspection: abdomen appears normal, Palpation: abdomen is soft and non-tender, in all quadrants. 22:35 Back: pain, that is moderate, of the lumbar area and sacrum. 22:35 Musculoskeletal/extremity: Extremities: grossly normal except: noted in the right foot: pain, tenderness, noted amputation of of all phalanges. 22:35 Neuro: Orientation: to person, place \T\ time. Mentation: is normal. Vital Signs: 21:26 BP 164 / 66; Pulse 63; Resp 16 S; Temp 99(O); Pulse Ox 99% on R/A; Weight 65.77 kg (R); bb Height 5 ft. 4 in. (162.56 cm) (R); Pain 9/10; 23:30 BP 156 / 73; Pulse 52; Resp 18; Pulse Ox 98% on R/A; 11/08 01:04 BP 152 / 65; Pulse 52; Resp 18; Pulse Ox 98% on R/A; 11/07 21:26 Body Mass Index 24.89 (65.77 kg, 162.56 cm) bb MDM: 11/07 22:08 Patient medically screened. cp 11/08 00:00 Differential diagnosis: closed head injury, contusion, fracture, multiple trauma. cp 00:55 Data reviewed: vital signs, nurses notes, radiologic studies, CT scan, plain films. 00:55 Counseling: I had a detailed discussion with the patient and/or guardian regarding: the cp historical points, exam findings, and any diagnostic results supporting the discharge/admit diagnosis, radiology results, to return to the emergency department if symptoms worsen or persist or if there are any questions or concerns that arise at home. Response to treatment: the patient's symptoms have markedly improved after treatment. 11/07 22:16 Order name: XRAY Foot RIGHT 3 View 11/07 22:23 Order name: CT Head C Spine cp 11/07 22:23 Order name: CT Lumbar Spine Wo Con cp 11/07 22:36 Order name: CT Pelvis wo Cont cp Administered Medications: 11/07 23:08 Drug: traMADol 50 mg Route: PO; 11/08 01:05 Follow up: Response: No adverse reaction; Pain is decreased; RASS: Alert and Calm (0) 11/07 23:08 Drug: Tylenol 650 mg Route: PO; 11/08 01:05 Follow up: Response: No adverse reaction Disposition: 04:33 Co-signature as Attending Physician, Ramy Donis MD. colten Disposition: 11/08/20 00:58 Discharged to Home. Impression: Fall on same level from slipping, tripping and stumbling, Contusion of right foot, Unspecified fracture of sacrum - nondisplaced, Contusion of unspecified part of head. - Condition is Stable. - Discharge Instructions: Contusion, Foot Contusion, Head Injury, Adult, Tailbone Injury. - Prescriptions for Ultracet 37.5- 325 mg Oral Tablet - take 1 tablet by ORAL route every 6 hours - for up to 5 days; do not exceed 8 tablets per day.; 20 tablet. - Medication Reconciliation Form, Thank You Letter, Antibiotic Education, Prescription Opioid Use form. - Follow up: Private Physician; When: 1 - 2 days; Reason: Recheck today's complaints. - Problem is new. - Symptoms have improved. Signatures: Dispatcher [employer] Ramy Mesa MD MD pkl Ballard, Brenda, RN RN Imtiaz Owen PA PA cp Habalo, Winsy, RN RN Corrections: (The following items were deleted from the chart) 01:05 00:58 11/08/2020 00:58 Discharged to Home. Impression: Fall on same level from wh slipping, tripping and stumbling; Contusion of right foot; Unspecified fracture of sacrum - nondisplaced; Contusion of unspecified part of head. Condition is Stable. Forms are Medication Reconciliation Form, Thank You Letter, Antibiotic Education, Prescription Opioid Use. Follow up: Private Physician; When: 1 - 2 days; Reason: Recheck today's complaints. Problem is new. Symptoms have improved. cp
--- NOTE | 2020-11-08 00:59 | ER ---
Nurse's Notes [facility] Name: Maria Isabel Stacy Age: 75 yrs Sex: Female : 1945 Arrival Date: 11/07/2020 Time: 21:08 Bed 15 Private MD: Khai Don E Diagnosis: Fall on same level from slipping, tripping and stumbling;Contusion of right foot;Unspecified fracture of sacrum-nondisplaced;Contusion of unspecified part of head Presentation: 11/07 21:26 Chief complaint: Patient's son or daughter states: pt fell yesterday hitting the back bb of her head denies LOC but now is c/o head pain, tail bone pain, right foot bruising, left knee pain. Coronavirus screen: At this time, the client does not indicate any symptoms associated with coronavirus-19. Ebola Screen: No symptoms or risks identified at this time. Initial Sepsis Screen: Does the patient meet any 2 criteria? No. Patient's initial sepsis screen is negative. Does the patient have a suspected source of infection? No. Patient's initial sepsis screen is negative. Risk Assessment: Do you want to hurt yourself or someone else? Patient reports no desire to harm self or others. Risk Assessment: Do you want to hurt yourself or someone else? Patient reports no desire to harm self or others. Onset of symptoms was November 06, 2020. 21:26 Method Of Arrival: Ambulatory bb 21:26 Acuity: DORCAS 3 bb Historical: - Allergies: 21:31 No Known Allergies; bb - Home Meds: 21:31 insulin [Active]; Metformin Oral [Active]; gabapentin oral oral [Active]; aspirin 81 mg bb Oral chew 1 tab once daily [Active]; - PMHx: 21:31 Diabetes - IDDM; Neuropathy; bb - PSHx: 21:31 right toes amputated; 2 stents to right leg; bb - Immunization history:: Adult Immunizations up to date. - Social history:: Smoking status: Patient denies any tobacco usage or history of. Screenin:00 Abuse screen: Denies threats or abuse. Denies injuries from another. Nutritional wh screening: No deficits noted. Tuberculosis screening: No symptoms or risk factors identified. Fall Risk None identified. Assessment: 21:45 General: Appears in no apparent distress. Behavior is calm, cooperative, appropriate for age. Pain: Complains of pain in back of head, back, tail bone and right foot. Neuro: Level of Consciousness is awake, alert, obeys commands, Oriented to person, place, time, situation, Appropriate for age. Cardiovascular: Capillary refill < 3 seconds. Respiratory: Airway is patent Respiratory effort is even, unlabored, Respiratory pattern is regular, symmetrical. GI: Abdomen is flat, non-distended. : No signs and/or symptoms were reported regarding the genitourinary system. EENT: No signs and/or symptoms were reported regarding the EENT system. Derm: Skin is intact, is healthy with good turgor, Skin is pink, warm \T\ dry. normal. Musculoskeletal: Circulation, motion, and sensation intact. 23:45 Reassessment: Patient appears in no apparent distress at this time. Patient and/or family updated on plan of care and expected duration. Pain level reassessed. Patient is alert, oriented x 3, equal unlabored respirations, skin warm/dry/pink. 11/08 01:04 Reassessment: Patient appears in no apparent distress at this time. Patient and/or family updated on plan of care and expected duration. Pain level reassessed. Patient is alert, oriented x 3, equal unlabored respirations, skin warm/dry/pink. Vital Signs: 11/07 21:26 BP 164 / 66; Pulse 63; Resp 16 S; Temp 99(O); Pulse Ox 99% on R/A; Weight 65.77 kg (R); bb Height 5 ft. 4 in. (162.56 cm) (R); Pain 9/10; 23:30 BP 156 / 73; Pulse 52; Resp 18; Pulse Ox 98% on R/A; 11/08 01:04 BP 152 / 65; Pulse 52; Resp 18; Pulse Ox 98% on R/A; 11/07 21:26 Body Mass Index 24.89 (65.77 kg, 162.56 cm) ED Course: 11/07 21:08 Patient arrived in ED. am4 21:09 Khai Don MD is Private Physician. am4 21:28 Triage completed. bb 21:31 Arm band placed on Patient placed in an exam room, on a stretcher, on pulse oximetry. bb Family accompanied patient. 21:50 Eagle Moore, RN is Primary Nurse. 22:00 Patient has correct armband on for positive identification. Bed in low position. Call light in reach. Side rails up X 1. Pulse ox on. NIBP on. 22:01 Imtiaz Murcia PA is PHCP. cp 22:01 Ramy Donis MD is Attending Physician. cp 22:43 XRAY Foot RIGHT 3 View In Process Unspecified. EDMS 23:32 CT Head C Spine In Process Unspecified. EDMS 23:32 CT Lumbar Spine Wo Con In Process Unspecified. EDMS 23:33 CT Pelvis wo Cont In Process Unspecified. EDRI 11/08 01:04 No provider procedures requiring assistance completed. Patient did not have IV access during this emergency room visit. Administered Medications: 11/07 23:08 Drug: traMADol 50 mg Route: PO; 11/08 01:05 Follow up: Response: No adverse reaction; Pain is decreased; RASS: Alert and Calm (0) 11/07 23:08 Drug: Tylenol 650 mg Route: PO; 11/08 01:05 Follow up: Response: No adverse reaction Outcome: 00:58 Discharge ordered by MD. 01:04 Discharged to home ambulatory, with crutches, with family. 01:04 Condition: stable 01:04 Discharge instructions given to patient, family, Instructed on discharge instructions, follow up and referral plans. no drinking with medication, no driving heavy equipment, medication usage, POC Demonstrated understanding of instructions, follow-up care, medications, POC Prescriptions given X 1. 01:05 Patient left the ED. Signatures: Dispatcher [employer] Keshia Blackwell RN Imtiaz Gu PA PA cp Habalo, Winsy, RN RN Barb Holbrook am4
[2020-11-08 01:15] VITALS: TEMP 99
[2020-11-08 01:17] VITALS: O2SAT 98
[2020-11-08 01:18] VITALS: BP 152/65
--- NOTE | 2020-11-08 09:12 | RAD REPORT ---
EXAM DESCRIPTION: RAD - Foot Right 3 View - 11/07/2020 10:43 pm CLINICAL HISTORY: PAIN, prior amputation COMPARISON: Foot Right 3 View dated 10/30/2019 FINDINGS: Patient is status post amputation of the right foot toes and distal metatarsals. Amputatio n is mid metatarsal level at all 5 metatarsals. Patient has a very large plantar spur. The fourth met atarsal amputation site has a smooth rounded contour. The remaining metatarsals show some spurring ch davie. There are no erosive or destructive changes at any of the amputation sites. Bones are osteopeni c. No acute or destructive changes are identifiable. There is no air, foreign body or suspicious find ings seen in the soft tissues of the foot. IMPRESSION: Right foot amputation changes are present to the mid metatarsal level. No acute or destr uctive changes at the amputation sites. No suspicious soft tissue finding. Large plantar spur.
--- NOTE | 2020-11-08 10:19 | RAD REPORT ---
EXAM DESCRIPTION: CT - Spine Lumbar Wo Con - 11/08/2020 4:50 am CLINICAL HISTORY: Fall;Pain. TECHNIQUE: Axial, coronal, and sagittal images through the brain were performed in the absence of in travenous contrast. CT of the cervical spine and lumbar was performed without contrast. Axial, coronal, and sagittal kel nstructions were created and sent to PACS. These exams were performed according to our departmental dose-optimization program which includes use of Automated Exposure Control, adjustment of the mA and/or kV according to patient size and/or use o f iterative reconstruction technique. COMPARISON: None. FINDINGS: CT Head: The brain parenchyma appears unremarkable. There is no intra-axial or extra-axial bleed seen. There i s no mass or mass effect. The ventricles are normal in size shape and configuration. The orbital cont ents appear unremarkable. The visualized paranasal sinuses and mastoid air cells are patent. No fracture is identified. CT cervical and lumbar spine: No acute osseous abnormality identified. Vertebral body height and alignment are maintained. No atlan todental interval widening. Atlantoaxial alignment is maintained. Osteopenia. 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 C2-C3: No significant central canal or neuroforaminal narrowing. C3-C4: Small posterior disc osteophyte complex results in borderline narrowing of the central canal t o 0.9 cm AP. Mild left-sided neuroforaminal stenosis due to uncinate and facet hypertrophy. No signif icant right-sided neuroforaminal narrowing. C4-C5: Small posterior disc osteophyte complex results in borderline narrowing of the central canal t o 0.8 cm AP. Mild left-sided neuroforaminal stenosis due to uncinate and facet hypertrophy. No signif icant right-sided neuroforaminal narrowing. C5-C6: Mild disc height loss. Posterior disc osteophyte complex results in mild narrowing of the cent ral canal to 0.7 cm AP. Mild left and moderate right-sided neuroforaminal narrowing due to uncinate h ypertrophy. C6-C7: Small posterior disc osteophyte complex results in borderline narrowing of the central canal t o 0.7 cm AP. No significant neuroforaminal narrowing. T12-L1: No significant central canal or neuroforaminal stenosis identified. L1-L2: Mild circumferential disc bulge. No significant central canal or neuroforaminal stenosis ident ified. L2-L3: Mild circumferential disc bulge. No significant central canal or neuroforaminal stenosis ident ified. L3-L4: Moderate circumferential disc bulge with mild ligamentum flavum hypertrophy, resulting in bord donald central canal narrowing measuring 0.8 cm AP. No significant neuroforaminal stenosis identified . L4-L5: Moderate circumferential disc bulge with mild ligamentum flavum hypertrophy, resulting in bord donald central canal narrowing measuring 0.8 cm AP. Mild bilateral neuroforaminal stenosis due to dis c material. L5-S1: Moderate circumferential disc bulge with mild ligamentum flavum hypertrophy. Moderate bilatera l neuroforaminal stenosis due to disc material. Paraspinal soft tissues: Tiny calcification in the right lobe of the thyroid gland. Sigmoid diverticu losis, with possible trace fat stranding. No adjacent walled off fluid collection or free air. Mild t o moderate calcific atherosclerosis. 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 IMPRESSION: 1. No acute intracranial abnormality identified. 2. No acute osseous abnormality identified in the cervical or lumbar spine. 3. Spinal degenerative changes, as described. Electronically signed by: Nely Dan MD 11/08/2020 12:10 AM CDT Due to temporary technical issues with the PACS/Fluency reporting system, reports are being signed by the in house radiologists without review as a courtesy to insure prompt reporting. The interpreting radiologist is fully responsible for the content of the report.
--- NOTE | 2020-11-08 10:22 | RAD REPORT ---
EXAM DESCRIPTION: CT - Pelvis Wo Cont - 11/08/2020 4:50 am CLINICAL HISTORY: Fall yesterday in tub, and tail/low back pain TECHNIQUE: Contiguous axial images obtained through the pelvis without IV contrast. Sagittal and cor onal reformatted images were provided. This exam was performed according to our departmental dose-optimization program, which includes autom ated exposure control, adjustment of the mA and/or kV according to patient size and/or use of iterati ve reconstruction technique. COMPARISON: Correlation is made with CT angiogram aorta dated 09/24/2020 FINDINGS: Bones: Osseous structures are osteopenic. New cortical buckling at the superior S4 level o n the sagittal images. Joints: Mild to moderate degenerative changes at the hip joints bilaterally. Moderate degenerative ch anges at the lower lumbar spine. Soft tissues: Unremarkable Bowel: Moderate stool. Colonic diverticula without adjacent inflammatory change. No obstruction. No a ppreciable mucosal thickening. Appendix: Normal caliber appendix. No findings to suggest acute appendicitis. Urinary bladder: Unremarkable Reproductive: Unremarkable as visualized Lymph nodes: No pathologically enlarged lymph nodes. Peritoneum: No focal fluid collection. No free air. Vessels: Moderate atherosclerotic disease. No distal abdominal aortic aneurysm. Abdominal wall: Small fat-containing umbilical hernia. IMPRESSION: New cortical buckling at the superior S4 level thought to reflect an acute fracture. Electronically signed by: Uvaldo Granado MD 11/08/2020 12:16 AM CDT Due to temporary technical issues with the PACS/Fluency reporting system, reports are being signed by the in house radiologists without review as a courtesy to insure prompt reporting. The interpreting radiologist is fully responsible for the content of the report.
== END 2020-11-08 01:05 | disposition home or self-care (01) ==
LOC: ER 21:05
DX: S32.10XA Unspecified fracture of sacrum, initial encounter for closed fracture (principal); S90.31XA Contusion of right foot, initial encounter; W01.0XXA Fall on same level from slipping, tripping and stumbling without subsequent striking against object, initial encounter; Y93.01 Activity, walking, marching and hiking; Z79.82 Long term (current) use of aspirin; E11.40 Type 2 diabetes mellitus with diabetic neuropathy, unspecified; Z79.4 Long term (current) use of insulin
CPT/HCPCS: 70450; 72125; 72131; 72192; 99284

== ENCOUNTER 2021-02-15 09:31 | Emergency (ER) | payer OTHER ==
--- OUTSIDE RECORDS SUMMARY | 2021-02-15 09:37 | XMS REPORT | Continuity of Care Document ---
:1945 Author Organization [facility] t Address [address] [place] [address] Care Team Providers Name Role Phone Pcp Primary Care Physician Unavailable Phillip WELLS F Attending Clinician Doctor Unassigned, Name Attending Clinician Unavailable Bo Riggs MD Attending Clinician Balta Stovall DPM Attending Clinician Lionel Franco MD Attending Clinician Balta Stovall DPM Attending Clinician Arias Gimenez MD Attending Clinician Osmin KIM Attending Clinician BALTA STOVALL Attending Clinician Unavailable Waldo KIM Attending Clinician ELO ALEJO Attending Clinician Unavailable Lucretia MERCEDES Attending Clinician Unavailable OSMIN Admitting Clinician Unavailable ELO ALEJO Admitting Clinician Unavailable Lucretia MERCEDES Admitting Clinician Unavailable Payers Payer Name Policy Type Policy Effective Date Expiration Date Sour Number [facility] - [id number] 2017 [place] MEDICARE MGD 00:00:00 - Medical CAREUNITED MEDICARE [place] [id number] 2017-P resent MEDICAIDMEDICAID OF [id number] 2018 [place] [id number] 00:00:00 - Medical 8-PresentMedicaid Center Problems Condition Condition Condition Status Onset Resolution Last Treating Co mments Source Name Details Category Date Date Treatment Clinician Date Post-opera Post-opera Disease Active 2020-[address] tive state tive state 02-09 Laurita kes - 00:00: Medical 00 Center Surgical Surgical Disease Active [facility], aftercare, 02-09 Laurita kes - skin or skin or 00:00: Medical subcutaneo subcutaneo 00 Ce nter us tissue us tissue Status Status Disease Active 2020- [facility] 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 00 Center through through metatarsal metatarsal bone bone Impaired Impaired Disease Active 2019- [facility] mobility mobility 12-17 [facility] - and and 00:00: Medical activities activities 00 Ce nter of daily of daily living living 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 2 12-17 [facility] - diabetes diabetes 00:00: Medica l mellitus mellitus 00 Center with with hyperglyce hyperglyce radha radha Post-opera Post-opera Disease Active 2020-[address] tive pain tive pain 12-17 [facility] - 00:00: Medical 00 Center Anemia Anemia Disease Active 2020-[address] [facility] 12-17 [facility] - 00:00: Medical 00 Center Thrombocyt Thrombocyt Disease Active 2020-[address] osis osis 12-17 [facility] - 00:00: Medical 00 Center Gangrene Gangrene Disease Active 2020-0 [facility] of toe of of toe of 6-15 [facility] - right foot right foot 00:00: Me dical 00 Center Allergies, Adverse Reactions, Alerts This patient has no known allergies or adverse reactions. Family History Family Member Diagnosis Comments Start Date Stop Date Source Natural father Diabetes type II [facility] Social History Social Habit Start Date Stop Date Quantity Comments Source Sex Assigned At [facility] History SDOH [facility] - Alcohol Std Drinks Medica l Center History [facility] - Alcohol Binge Medical Joana ter Tobacco use and 2020-02-10 2020-02-[address] Laurita kes - exposure 00:00:00 00:00:00 Medical Center Alcohol intake 2020-02-10 2020-02-[address] [facility] - 00:00:00 00:00:00 non-drinker of Medical Ce nter alcohol (finding) History SDOH 2019-12-01 2019-12-[address] [facility] - Alcohol Frequency 00:00:00 00:00:00 Medical Center Smoking Status Start Date Stop Date Source Never smoker [facility] M ed[facility] Medications Ordered Filled Start Stop Current Ordering Indication Dosage Frequency Signature Comments Components Source Medication Medication Date Date Medication? Clinician (SIG) Name Name Missing or Yes . [facility] Non-Formula 02-16 [facility] - ry 17:17: Medical Medication 54 Center lisinopriL No 5mg QD Take [address] (PRINIVIL,Z 02-16 tablet (5 Laurita kes - ESTRIL) 5 00:00: 23:59 mg total) Me dical MG tablet 00 :00 by mouth Center daily. ferrous No 325mg QD Take [address] sulfate 325 02-16 tablet [facility] - (65 FE) MG 00:00: 23:59 (325 mg Med ical tablet 00 :00 total) by Center mouth daily. sodium Yes 1{appli QD Apply 1 [facility] hypochlorit 8-12 cation} applicatio [facility] - e (DAKIN'S 00:00: n Medical SOLUTION) 00 topically Cente r 0.25 % daily. external solution aspirin 81 2019- Yes 81mg QD Take 1 [facility] MG chewable 7-15 tablet (81 Laurita kes - tablet 00:00: mg total) Medica l 00 by mouth Center daily. multivitami 2019- No 1{tbl} QD Take 1 C [...] ter capsule mouth daily for 60 days. atorvastati 2020-0 Yes 80mg QD Take 1 [...] ical (VITAMIN C) 00 :00 total) by [facility] ter 500 MG mouth 2 tablet (two) times daily for 60 days. gabapentin 2020-0 2020- No 300mg Q.[id number] Take [address] (NEURONTIN) 12-29 [id number] capsule [facility] - 300 MG 00:00: 23:59 [...] Center (two) times daily for 60 days. collagenase 2020-0 Yes 1{appli QD Apply [address] (SANTYL) 5-21 cation} applicatio Laurita kes - 250 units/g 00:00: n Medica l ointment 00 topically Center daily Apply sergio thick amount to wound daily. traMADoL 2020-0 Yes 1{tbl} Take 1 [facility] (ULTRAM) 50 5-18 tablet by Mery es - mg tablet 00:00: mouth Medical 00 every 6 Center (six) hours as needed for Pain. clopidogreL 2020-0 [...] per tablet hours as needed for Pain. nortriptyli 2020-0 Yes 25mg QD Take [address] ne 1-30 by mouth [facility] - (PAMELOR) 00:00: daily. Medica l 25 MG 00 Center capsule Vital Signs Vital Name Observation Time Observation Value Comments Source Systolic blood 2020-02-17 13:00:00 162 mm[Hg] [facility] - pressure [facility] Diastolic blood 2020-02-17 13:00:00 74 mm[Hg] [facility] S [facility] Heart rate 2020-02-17 13:00:00 69 /min [facility] Body temperature 2020-02-17 13:00:00 35.78 Terese [facility] Respiratory rate 2020-02-17 13:00:00 18 /min [facility] Oxygen saturation in 2020-02-17 13:00:00 100 /min [facility] Arterial blood by Medical Ce nter Pulse oximetry Procedures Procedure Date / Time Performed Performing Clinician Sour e POCT-GLUCOSE METER 2020-02-17 12:55:00 [facility] POCT-GLUCOSE METER 2020-02-17 07:48:00 [facility] POCT-GLUCOSE METER 2020-02-16 21:14:00 [facility] POCT-GLUCOSE METER 2020-02-16 16:28:00 [facility] POCT-GLUCOSE METER 2020-02-16 11:35:00 [facility] POCT-GLUCOSE METER 2020-02-16 07:34:00 [facility] POCT-GLUCOSE METER 2020-02-15 21:19:00 [facility] POCT-GLUCOSE METER 2020-02-15 15:51:00 [facility] POCT-GLUCOSE METER 2020-02-15 12:16:00 [facility] POCT-GLUCOSE METER 2020-02-15 08:01:00 [facility] CBC W/PLT COUNT & AUTO 2020-02-15 04:24:00 [facility] Plan of Care Planned Activity Planned Date Details Comments Source Future Scheduled 2021-02-16 INFLUENZA VACCINE [facility] - Test 00:00:00 (#1) [code = [facility] INFLUENZA VACCINE (#1)] Future Scheduled 2020-06-[address] [facility] - Test 00:00:00 (12+) [code = Medical Center DEPRESSION SCREENING (12+)] Future Scheduled 2020-06-18 FALLS RISK SCREENING [facility] - Test 00:00:00 [code = FALLS RISK Medical C enter SCREENING] Future Scheduled 2020-03-[address] Laurita kes - Test 00:00:00 measurement Medical Center (procedure) [code = 51181902] Future Scheduled 2018-08-[address] [facility] - Test 00:00:00 WELLNESS (YEAR 2 or Medical Center FIRST YEAR if no IPPE) [code = MEDICARE ANNUAL WELLNESS (YEAR 2 or FIRST YEAR if no IPPE)] Future Scheduled 2017-05-30 Urine screening for [facility] - Test 00:00:00 protein (procedure) Medical Center [code = 661150075] Future Scheduled 1996 SHINGLES VACCINES (1 CHI [...] 00:00:00 examination Medical Center (regime/therapy) [code = 155773696] Future Scheduled [address] [facility] - Test 00:00[facility] ([facility]) [code = 071743668] Future Scheduled [address] - Test 00:00:00 [facility] colon (procedure) [code = 681899550] Encounters Start End Encounter Admission Attending Care Care Encounter Source Date/Time Date/Time Type Type Clinicians Facility Department ID 2020-10-25 2020-10-25 [email or web address] [id number] 15:56:00 17:25:00 Juana Wiggins [id number] [place] 4.2.7.2.686 [place] [id number] 2020-09-23 2020-09-23 Orders Doctor KHAN 1.2.840.114 [id number] 00:00:00 00:00:00 Only UnassignedPATTY 350.1.13.10 [place] [id number] [id number] 2020-07-07 2020-07-07 [email or web address] 1.2.840.114 [id number] 00:00:00 00:00:00 Vanesa Wiggins [id number] [place] 4.2.7.2.686 [facility] [id number] [address] 2020-06-07 2020-06-07 Office HUANG Stovall 1.2.840.114 [id number] 13:56:25 16:57:48 Visit Gabriel CLAROSATOR [id number] Y 0.2.7.2.686 [id number] 2020-05-07 2020-05-07 Orders Doctor KHAN 1.2.840.114 [id number] 00:00:00 00:00:00 Only UnassignedPATTY 350.1.13.10 [facility] 4.2.7.2.686 [id number] 2020-04-05 2020-04-05 Office HUANG Stovall 1.2.840.114 [id number] 14:32:01 15:37:58 Visit Gabriel Everett AMBULATOR 350.1.13.21 Y 0.2.7.2.686 [id number] 2020-04-05 2020-04-05 Office HUANG Franco 1.2.840.114 [id number] 14:31:13 15:37:49 Visit Giovanny AMBULATOR 350.1.13.21 Lionel Y 0.2.7.2.686 [id number] 2020-03-15 2020-03-15 Office HUANG Stovall 1.2.840.114 [id number] 15:50:40 16:41:06 Visit Gabriel Everett AMBULATOR 350.1.13.21 Y 0.2.7.2.686 [id number] 2020-02-26 2020-02-26 Office HUANG Stovall 1.2.840.114 [id number] 14:43:47 15:34:04 Visit Gabriel Everett AMBULATOR 350.1.13.21 Y 0.2.7.2.686 [id number] 2020-02-10 2020-02-17 [facility] Gabriel Stovall [facility] [id number] [facility]3] 11:05:00 16:30:00 [facility] 2020-01-28 2020-01-28 Office HUANG Stovall 1.2.840.114 [id number] 10:21:38 10:36:38 Visit Gabriel Everett AMBULATOR 350.1.13.21 Y 0.2.7.2.686 [id number] 2020-01-21 2020-01-21 Office Jason Cortez Jeri 1.2.840.114 [id number] 11:23:24 12:51:12 Visit AMBULATOR 350.1.13.21 Y 0.2.7.2.686 [id number] 2019-12-15 2019-12-15 Orders Doctor BILL 1.2.840.114 [id number] 00:00:00 00:00:00 Only Unassigned, PATTY 350.1.13.10 [facility] 4.2.7.2.686 [id number] 2019-11-21 2019-11-21 Telemedicanibal Riggs [facility] 1.2.840.114 [id number] 08:57:41 09:37:41 ne Visit Vanesa Wiggins 350.1.13.10 [place] 4.2.7.2.686 [place] [id number] [facility] [address] [facility] 2019-10-30 2019-10-30 Telephone JESSEE Riggs 1.2.840.114 [id number] 00:00:00 00:00:00 Vanesa Soriano [place] 350.1.13.10 [place] 4.2.7.2.686 Ammybrenda [id number] [address] Results Test Description Test Time Test Comments Results Result Comments Source POC-Glucose meter 2020-02-17 13:05:00 Test Item Value Reference Range Interpretation Comme nts POC-Glucose Meter (test code = 200 mg/dL 70-110 H : TESTED AT [facility] [address] [facility] [address] 30: Director Of Surgery/Techni herson ID = [id number] for VLADCAMILA N Lab Interpretation (test code = Abnormal 66785-1) [facility] [id number] 13:05:00 Test Item Value Reference Range Interpretation Comments POC-GLUCOSE METER 200 mg/dL 70-110 H : TESTED A T [facility] [address] (BEAKER) (test code = [facility]8) [address]7743: Director Of Surgery/Techni herson ID = [id number] for ARISTEO QUEEN POCT-GLUCOSE [id number] 07:59:00 Test Item Value Reference Range Interpretation Comments POC-GLUCOSE METER 191 mg/dL 70-110 H : TESTED A T [facility] [address] (BEAKER) (test code = [facility]8) 00397: Director Of Surgery/Techni herson ID = [id number] for ARISTEO QUEEN POCT-GLUCOSE [id number] 21:25:00 Test Item Value Reference Range Interpretation Comments POC-GLUCOSE METER 287 mg/dL 70-110 H : TESTED A T [facility] [address] (BEAKER) (test code = [facility]8) 59405: Director Of Surgery/Techni herson ID = [id number] for ANNE FUENTES POCT-GLUCOSE [id number] 16:39:00 Test Item Value Reference Range Interpretation Comments POC-GLUCOSE METER 232 mg/dL 70-110 H : TESTED A T [facility] [address] (BEAKER) (test code = [facility], 1538) 67718: Director Of Surgery/Techni herson ID = [id number] for ARISTEO QUEEN POCT-GLUCOSE [id number] 11:46:00 Test Item Value Reference Range Interpretation Comments POC-GLUCOSE METER 197 mg/dL 70-110 H : TESTED A T [facility] [address] (BEAKER) (test code = [facility]8) 19896: Director Of Surgery/Techni herson ID = [id number] for ARISTEO QUEEN POCT-GLUCOSE [id number] 07:45:00 Test Item Value Reference Range Interpretation Comments POC-GLUCOSE METER 119 mg/dL 70-110 H : TESTED A T [facility] [address] (BEAKER) (test code = [facility]8) 67874: Director Of Surgery/Techni herson ID = [id number] for ARISTEO QUEEN POCT-GLUCOSE [id number] 21:30:00 Test Item Value Reference Range Interpretation Comments POC-GLUCOSE METER 165 mg/dL 70-110 H : TESTED A T [facility] [address] (BEAKER) (test code = [facility]) 06418: Director Of Surgery/Techni herson ID = [id number] for POLLO JACKSON POCT-GLUCOSE [id number] 16:02:00 Test Item Value Reference Range Interpretation Comments POC-GLUCOSE METER 162 mg/dL 70-110 H : TESTED A T [facility] [address] (BEAKER) (test code = [facility]) 90414: Director Of Surgery/Techni herson ID = [id number] for Me ndez, Tarah POCT-GLUCOSE [id number] 12:27:00 Test Item Value Reference Range Interpretation Comments POC-GLUCOSE METER 190 mg/dL 70-110 H : TESTED A T [facility] 67[address] (BEAKER) (test code = [facility], 153) 08712: Director Of Surgery/Techni herson ID = [id number] for Me ndez, Tarah POCT-GLUCOSE [id number] 08:12:00 Test Item Value Reference Range Interpretation Comments POC-GLUCOSE METER 160 mg/dL 70-110 H : TESTED A T [facility] 67[address] (BEAKER) (test code = [facility]) 19908: Director Of Surgery/Techni herson ID = [id number] for Id Tarah joiner CBC with platelet count + automated [id number] 04:55:00 Test Item Value Reference Range Interpretation Comments WBC (test code = 6690-2) 11.1 See_Comment H [A utomated message] The system [employer] generated this result transmitted ref erence range: 3.5 - 10 .5 K/L. The refe rence range was not u sed to interpret this result as normal/abnor mal. RBC (test code = 789-8) 4.12 See_Comment [Au tomated message] The system [employer] generated this result transmitted ref erence range: 3.93 - 5 .22 M/L. The refe rence range was not u sed to interpret this result as normal/abnor mal. MCHC (test code = 786-4) 31.8 See_Comment L [A utomated message] The system [employer] generated this result transmitted ref erence range: [...] See_Comment [Aut omated message] 777-3) The system [employer] generated this result transmitted ref erence range: 150 - 45 0 K/CU MM. The referen ce range was not u sed to interpret this result as normal/abnor mal. MPV (test code = 9.2 fL 9.4-12.3 L 52303-2) nRBC (test code = 413) 0 See_Comment [Aut omated message] The system [employer] generated this result transmitted ref erence range: [...] See_Comment [Aut omated message] 670) The system [employer] generated this result transmitted ref erence range: 1.56 - 6 .13 K/L. The refe rence range was not u sed to interpret this result as normal/abnor mal. # Lymphs (test code = 4.22 See_Comment H [Auto mated message] 414) The system [employer] generated this result transmitted ref erence range: 1.18 - 3 .74 K/L. The refe rence range was not u sed to interpret this result as normal/abnor mal. # Monos (test code = 0.76 See_Comment H [Autom ated message] 415) The system [employer] generated this result transmitted ref erence range: 0.24 - 0 .36 K/L. The refe rence range was not u sed to interpret this result as normal/abnor mal. # Eos (test code = 416) 0.39 See_Comment H [Au tomated message] The system [employer] generated this result transmitted ref erence range: 0.04 - 0 .36 K/L. The refe rence range was not u sed to interpret this result as normal/abnor mal. # Baso (test code = 417) 0.03 See_Comment [A utomated message] The system [employer] generated this result transmitted ref erence range: 0.01 - 0 .08 K/L. The refe rence range was not u sed to interpret this result as normal/abnor mal. Immature 0 % 0-1 Granulocytes-Relative (test code = 2801) Lab Interpretation (test Abnormal code = 88294-0) [facility] W/PLT COUNT & AUTO [id number] 04:55:00 Test Item Value Reference Range Interpretation [...] PERCENT (BEAKER) (test code = 2801) POCT-GLUCOSE [id number] 21:28:00 Test Item Value Reference Range Interpretation Comments POC-GLUCOSE METER 217 mg/dL 70-110 H : TESTED A T [facility] 6720 (BEAKER) (test code = [facility], 1538) 42516: Director Of Surgery/Techni herson ID = [id number] for AN ANNE MCNAMARA POCT-GLUCOSE [id number] 16:08:00 Test Item Value Reference Range Interpretation Comments POC-GLUCOSE METER 140 mg/dL 70-110 H : TESTED A T [facility] 67[address] (BEAKER) (test code = [facility]8) 86204: Director Of Surgery/Techni herson ID = [id number] for Tarah Schwab POCT-GLUCOSE [id number] 13:12:00 Test Item Value Reference Range Interpretation Comments POC-GLUCOSE METER 218 mg/dL 70-110 H : TESTED A T [facility] [address]20 (BEAKER) (test code = [facility]8) 85389: Director Of Surgery/Techni herson ID = [id number] for Tarah Schwab POCT-GLUCOSE [id number] 08:19:00 Test Item Value Reference Range Interpretation Comments POC-GLUCOSE METER 246 mg/dL 70-110 H : TESTED A T [facility] 6720 (BEAKER) (test code = [facility]8) 77507: Director Of Surgery/Techni herson ID = [id number] for Tarah Schwab CBC W/PLT COUNT & AUTO [id number] 06:06:00 Test Item Value Reference Range Interpretation [...] PERCENT (BEAKER) (test code = 2801) POCT-GLUCOSE [id number] 21:12:00 Test Item Value Reference Range Interpretation Comments POC-GLUCOSE METER 186 mg/dL 70-110 H : TESTED A T [facility] 67[address] (BEAKER) (test code = [facility], 153) 96246: Director Of Surgery/Techni herson ID = [id number] for NILDA LLAMAS POCT-GLUCOSE [id number] 15:54:00 Test Item Value Reference Range Interpretation Comments POC-GLUCOSE METER 185 mg/dL 70-110 H : TESTED A T [facility] 6720 (BEAKER) (test code = [facility], 153) 76153: Director Of Surgery/Techni herson ID = [id number] for GONZÁLEZ JC POCT-GLUCOSE [id number] 11:38:00 Test Item Value Reference Range Interpretation Comments POC-GLUCOSE METER 214 mg/dL 70-110 H : TESTED A T [facility] 67[address] (BEAKER) (test code = LOREE Ramsey [facility], 1538) 58722: Director Of Surgery/Techni herson ID = [id number] for GONZÁLEZ JC POCT-GLUCOSE [id number] 08:01:00 Test Item Value Reference Range Interpretation Comments POC-GLUCOSE METER 148 mg/dL 70-110 H : TESTED A T [facility] 67[address] (BEAKER) (test code = LOREE Ramsey [facility], 1538) 78974: Director Of Surgery/Techni herson ID = [id number] for GONZÁLEZ JC CBC W/PLT COUNT & AUTO [id number] 04:50:00 Test Item Value Reference Range Interpretation [...] PERCENT (BEAKER) (test code = 2801) POCT-GLUCOSE [id number] 21:14:00 Test Item Value Reference Range Interpretation Comments POC-GLUCOSE METER 192 mg/dL 70-110 H : TESTED A T [facility] 6720 (BEAKER) (test code = [facility], 153) 66677: Director Of Surgery/Techni herson ID = [id number] for CAIT VELA POCT-GLUCOSE [id number] 16:33:00 Test Item Value Reference Range Interpretation Comments POC-GLUCOSE METER 141 mg/dL 70-110 H : TESTED A T [facility] 67[address] (BEAKER) (test code = [facility], 1538) 32351: Director Of Surgery/Techni herson ID = [id number] for ARISTEO QUEEN POCT-GLUCOSE [id number] 11:49:00 Test Item Value Reference Range Interpretation Comments POC-GLUCOSE METER 134 mg/dL 70-110 H : TESTED A T [facility] [address] (BEAKER) (test code = [facility], 1538) 36983: Director Of Surgery/Techni herson ID = [id number] for ARISTEO QUEEN PROTHROMBIN [id number] 09:36:00 Test Item Value Reference Range Interpretation [...] INR is2.5-3.5 for patients wiht mechanical heart valves.COMPREHENSIVE METABOLIC PANEL 2020-02-12 09:32:00 Test Item Value Reference Range [...] APPLICABLE FOR DIALYSIS PATIEN TS. Director Of Surgery ID - NTPPOCT-GLUCOSE [id number] 08:02:00 Test Item Value Reference Range Interpretation Comments POC-GLUCOSE METER 122 mg/dL 70-110 H : TESTED A T [facility] 6720 (BEAKER) (test code = [facility], 1538) 80313: Director Of Surgery/Techni herson ID = [id number] for ARISTEO QUEEN POCT-GLUCOSE [id number] 22:30:00 Test Item Value Reference Range Interpretation Comments POC-GLUCOSE METER 122 mg/dL 70-110 H : TESTED A T [facility] 6720 (BEAKER) (test code = [facility], 1538) 28744: Director Of Surgery/Techni herson ID = [id number] for MARILU ODONNELL POCT-GLUCOSE [id number] 15:33:00 Test Item Value Reference Range Interpretation Comments POC-GLUCOSE METER 200 mg/dL 70-110 H : TESTED A T [facility] 6720 (BEAKER) (test code = [facility], 1538) 19987: Director Of Surgery/Techni herson ID = [id number] for ARISTEO QUEEN BASIC METABOLIC [id number] 12:06:00 Test Item Value Reference Range Interpretation [...] APPLICABLE FOR DIALYSIS PATIEN TS. Director Of Surgery ID - JORGE ALBERTO CPOCT-GLUCOSE [id number] 11:59:00 Test Item Value Reference Range Interpretation Comments POC-GLUCOSE METER 129 mg/dL 70-110 H : TESTED A T [facility] 6720 (BEAKER) (test code = LOREE Ramsey [place], 1538) 18375: Director Of Surgery/Techni herson ID = [id number] for ARISTEO QUEEN CBC (HEMOGRAM ONLY)2020-02-11 11:51:00 Test Item Value Reference [...] 0-0 (BEAKER) (test code = 413) POCT-GLUCOSE [id number] 11:26:00 Test Item Value Reference Range Interpretation Comments POC-GLUCOSE METER 138 mg/dL 70-110 H : TESTED A T [facility] 6720 (BEAKER) (test code = LOREE Ramsey [place], 1538) 33854: Director Of Surgery/Techni herson ID = [id number] for AN ANNE MCNAMARA BASIC METABOLIC [id number] 08:02:00 Test Item Value Reference Range Interpretation [...] APPLICABLE FOR DIALYSIS PATIEN TS. Director Of Surgery ID - JORGE ALBERTO CCBC W/PLT COUNT & AUTO [id number] 08:00:00 Test Item Value Reference Range Interpretation [...] PERCENT (BEAKER) (test code = 2801) POCT-GLUCOSE [id number] 07:57:00 Test Item Value Reference Range Interpretation Comments POC-GLUCOSE METER 100 mg/dL 70-110 : [facility] (BEAKER) (test code = [facility], 1538) 71885: Director Of Surgery/Techni herson ID = [id number] for ARISTEO QUEEN VITAMIN B12 AND [id number] 04:11:00 Test Item Value Reference Range Interpretation Comments VITAMIN B12 (BEAKER) (test code = 521 pg/mL 213-816 774) FOLATE (BEAKER) (test code = 362) 18.00 ng/mL >=7.00 Director Of Surgery ID - EUGENE, TIBC, % SAT. (WITHOUT FERRITIN)2020-02-10 23:57:00 Test Item Value Reference Range Interpretation Comments IRON (BEAKER) (test code = 547) 24.0 ug/dL 40.0-160.0 L TOTAL IRON BINDING CAPACITY 253 ug/dL 250-450 (BEAKER) (test code = 769) IRON % SATURATION (2) (BEAKER) 9 % 20-55 L (test code = 2590) Director Of Surgery ID - FARHAT LPOCT-GLUCOSE [id number] 18:15:00 Test Item Value Reference Range Interpretation Comments POC-GLUCOSE METER 143 mg/dL 70-110 H : TESTED A T [facility] 6720 (BEAKER) (test code = LOREE Ramsey [place], 1538) [address]: Director Of Surgery/Techni herson ID = [id number] for DEMOND REYES POCT-GLUCOSE [id number] 11:36:00 Test Item Value Reference Range Interpretation Comments POC-GLUCOSE METER 181 mg/dL 70-110 H : TESTED A T [facility] 6720 (BEAKER) (test code = LOREE Ramsey [facility], 1538) [address]: Director Of Surgery/Techni herson ID = [id number] for JEANINE RIOJAS SARS-COV2/RT-PCR ([facility])2020-02-07 12:36:00 Test Item Value Reference Range Interpretation Comments SARS-COV2/RT-PCR (test Negative Not Detected, Negative, code = 0650390) See external report for linked test SARS-COV-2 PERFORMING LAB [facility] NOE (test code = 2765641) Negative result for this test determines that [...] 564(g) of the Act.Fact Sheet for Healthcare Providers:https://www.[employer]/sites/default/files/product/documents/Fact_Shee g_ZR_Paagvbors_Jfge_SKZP-HsI-1.pdfFact Sheet for Healthcare Patients:https://www.[employer]/sites/default/files/product/ documents/Veft_Skrlq_Pmglebzd_Vhpf_MQZA-XoW-6.pdfPerforming Laboratory:[facility].[place], [place] [address]BPEGL METABOLIC PANEL 2020-02-06 12:10:00 Test Item Value [...] APPLICABLE FOR DIALYSIS PATIEN TS. Director Of Surgery ID - [id number] 11:50:00 Test Item Value Reference Range Interpretation Comments HEMOGLOBIN (BEAKER) (test code = 12.0 GM/DL 11.2-15.7 410) Director Of Surgery ID - [id number] CULTURE + SMEAR (NON-SPUTUM)2020-01-26 09:25:00 Test Item [...] fast bacilli (test code = 994) seen FUNGUS CULTURE + [id number] 15:27:00 Test Item Value Reference Range Interpretation Comments CULTURE (BEAKER) (test No fungus isolated in code = 1095) 28 days FUNGUS SMEAR (BEAKER) <1+ budding yeast (test code = 1406) FUNGUS CULTURE + [id number] 16:04:00 Test Item Value Reference Range Interpretation Comments CULTURE (BEAKER) (test No fungus isolated in code = 1095) 28 days FUNGUS SMEAR (BEAKER) No fungi seen (test code = 1406) FUNGUS CULTURE + [id number] 16:21:00 Test Item Value Reference Range Interpretation Comments CULTURE (BEAKER) (test No fungus isolated in code = 1095) 28 days FUNGUS SMEAR (BEAKER) No fungi seen (test code = 1406) POCT-GLUCOSE [id number] 11:49:00 Test Item Value Reference Range Interpretation Comments POC-GLUCOSE METER 94 mg/dL 70-110 : TESTED A T [facility] 7[facility] (BEAKER) (test code = [place], 1538) [place] [address] 0: Director Of Surgery/Techni herson ID = [id number] for RACHELLE GRAY POCT-GLUCOSE [id number] 07:08:00 Test Item Value Reference Range Interpretation Comments POC-GLUCOSE METER 87 mg/dL 70-110 : TESTED A T [facility] 7[facility] (BEAKER) (test code = [place], 1538) [place] [address] 0: Director Of Surgery/Techni herson ID = [id number] for POLLO CABALLERO POCT-GLUCOSE [id number] 00:12:00 Test Item Value Reference Range Interpretation Comments POC-GLUCOSE METER 111 mg/dL 70-110 H : TESTED A T [facility] (BEAKER) (test code [place], = 1538) [place] [address] 0: Director Of Surgery/Techni herson ID = [id number] for POLLO CABALLERO POCT-GLUCOSE [id number] 16:26:00 Test Item Value Reference Range Interpretation Comments POC-GLUCOSE METER 146 mg/dL 70-110 H : TESTED A T [facility] (BEAKER) (test code [place], = 1538) [place] [address] 0: Director Of Surgery/Techni herson ID = [id number] for RACHELLE GRAY PV, VENOUS DOPPLER ARM, [id number] 13:49:00Reason for exam:->LUE pain and nodule, r/o [...] Berg Verified Date/Time: 12/30/2019 13:49:05 Reading Location: [address] Body Reading RoomAddendum EndsFINAL REPORT [...] Bergort Verified Date/Time: 12/29/2019 18:22:22 Reading Location: [address] Consult Reading Room POCT-GLUCOSE [id number] 12:31:00 Test Item Value Reference Range Interpretation Comments POC-GLUCOSE METER 122 mg/dL 70-110 H : TESTED A T [facility] (BEAKER) (test code [place], = 1538) [place] [address] 0: Director Of Surgery/Techni herson ID = [id number] for JAUN CAMARGO POCT-GLUCOSE [id number] 06:42:00 Test Item Value Reference Range Interpretation Comments POC-GLUCOSE METER 96 mg/dL 70-110 : TESTED A T [facility] (BEAKER) (test code = [place], 1538) [place] [address] 0: Director Of Surgery/Techni herson ID = [id number] for RAMIRO PRESLEY POCT-GLUCOSE [id number] 20:26:00 Test Item Value Reference Range Interpretation Comments POC-GLUCOSE METER 164 mg/dL 70-110 H : TESTED A T [facility] (BEAKER) (test code [place] A, = 1538) [place] [address] 0: Director Of Surgery/Techni herson ID = [id number] for POLLO CABALLERO POCT-GLUCOSE [id number] 16:59:00 Test Item Value Reference Range Interpretation Comments POC-GLUCOSE METER 199 mg/dL 70-110 H : TESTED A T [facility] (BEAKER) (test code [place] A, = 1538) [place] [address] 0: Director Of Surgery/Techni herson ID = [id number] for OMIW SHANNAN, SYRIETA POCT-GLUCOSE [id number] 11:17:00 Test Item Value Reference Range Interpretation Comments POC-GLUCOSE METER 113 mg/dL 70-110 H : TESTED A T [facility] (BEAKER) (test code [place] A, = 1538) [place] [address] 0: Director Of Surgery/Techni herson ID = [id number] for OMIW SHANNAN, SYRIETA POCT-GLUCOSE [id number] 06:28:00 Test Item Value Reference Range Interpretation Comments POC-GLUCOSE METER 107 mg/dL 70-110 : TESTED A T [facility] (BEAKER) (test code [place], = 1538) [place] [address] 0: Director Of Surgery/Techni herson ID = [id number] for ROSY FAUST BASIC METABOLIC [id number] 05:30:00 Test Item Value Reference Range Interpretation [...] 9.4-12.3 L (test code = 754) POCT-GLUCOSE [id number] 20:59:00 Test Item Value Reference Range Interpretation Comments POC-GLUCOSE METER 173 mg/dL 70-110 H : TESTED A T [facility] (BEAKER) (test code [place], = 1538) [place] [address] 0: Director Of Surgery/Techni herson ID = [id number] for BENNY , ROSY POCT-GLUCOSE [id number] 16:41:00 Test Item Value Reference Range Interpretation Comments POC-GLUCOSE METER 151 mg/dL 70-110 H : TESTED A T [facility] (BEAKER) (test code [place], = 1538) [place] [address] 0: Director Of Surgery/Techni herson ID = [id number] for JOHN ERA, AVIVA POCT-GLUCOSE [id number] 12:07:00 Test Item Value Reference Range Interpretation Comments POC-GLUCOSE METER 130 mg/dL 70-110 H : TESTED A T [facility] (BEAKER) (test code [place] A, = 1538) [place] [address] 0: Director Of Surgery/Techni herson ID = [id number] for JOHN ERA, AVIVA POCT-GLUCOSE [id number] 06:28:00 Test Item Value Reference Range Interpretation Comments POC-GLUCOSE METER 99 mg/dL 70-110 : TESTED A T [facility] (BEAKER) (test code = [place], 1538) [place] [address] 0: Director Of Surgery/Techni herson ID = [id number] for BENNY , ROSY POCT-GLUCOSE [id number] 20:35:00 Test Item Value Reference Range Interpretation Comments POC-GLUCOSE METER 230 mg/dL 70-110 H : TESTED A T [facility] (BEAKER) (test code [place] A, = 1538) [place] [address] 0: Director Of Surgery/Techni herson ID = [id number] for BENNY , ROSY POCT-GLUCOSE [id number] 16:19:00 Test Item Value Reference Range Interpretation Comments POC-GLUCOSE METER 184 mg/dL 70-110 H : TESTED A T [facility] (BEAKER) (test code [place] A, = 1538) [place] [address] 0: Director Of Surgery/Techni herson ID = [id number] for JOHN AVIVA OCAMPO POCT-GLUCOSE [id number] 11:24:00 Test Item Value Reference Range Interpretation Comments POC-GLUCOSE METER 120 mg/dL 70-110 H : TESTED A T [facility] (BEAKER) (test code [place] A, = 1538) [place] [address] 0: Director Of Surgery/Techni herson ID = [id number] for JOHN AVIVA OCAMPO POCT-GLUCOSE [id number] 06:15:00 Test Item Value Reference Range Interpretation Comments POC-GLUCOSE METER 80 mg/dL 70-110 : TESTED A T [facility] (BEAKER) (test code = [place], 1538) [place] [address] 0: Director Of Surgery/Techni herson ID = [id number] for BC EDOUARD POCT-GLUCOSE [id number] 20:23:00 Test Item Value Reference Range Interpretation Comments POC-GLUCOSE METER 140 mg/dL 70-110 H : TESTED A T [facility] (BEAKER) (test code [place] A, = 1538) [place] [address] 0: Director Of Surgery/Techni herson ID = [id number] for LARS EDOUARDA POCT-GLUCOSE [id number] 16:13:00 Test Item Value Reference Range Interpretation Comments POC-GLUCOSE METER 163 mg/dL 70-110 H : TESTED A T [facility] (BEAKER) (test code [place], = 1538) [place] [address] 0: Director Of Surgery/Techni herson ID = [id number] for WALDEMAR BAL COMPREHENSIVE METABOLIC [id number] 12:38:00 Test Item Value Reference Range Interpretation [...] PATIEN TS. CBC W/PLT COUNT & AUTO [id number] 12:19:00 Test Item Value Reference Range Interpretation [...] PERCENT (BEAKER) (test code = 2801) POCT-GLUCOSE [id number] 11:45:00 Test Item Value Reference Range Interpretation Comments POC-GLUCOSE METER 122 mg/dL 70-110 H : TESTED A T [facility] (BEAKER) (test code [place] A, = 1538) [place] [address] 0: Director Of Surgery/Techni herson ID = [id number] for WALDEMAR BAL POCT-GLUCOSE [id number] 06:46:00 Test Item Value Reference Range Interpretation Comments POC-GLUCOSE METER 105 mg/dL 70-110 : TESTED A T [facility] (BEAKER) (test code [place] A, = 1538) [place] [address] 0: Director Of Surgery/Techni herson ID = [id number] for POLLO CABALLERO POCT-GLUCOSE [id number] 20:54:00 Test Item Value Reference Range Interpretation Comments POC-GLUCOSE METER 159 mg/dL 70-110 H : TESTED A T [facility] (BEAKER) (test code [place] A, = 1538) [place] [address] 0: Director Of Surgery/Techni herson ID = [id number] for POLLO CABALLERO POCT-GLUCOSE [id number] 17:04:00 Test Item Value Reference Range Interpretation Comments POC-GLUCOSE METER 133 mg/dL 70-110 H : TESTED A T [facility] (BEAKER) (test code [place] A, = 1538) [place] [address] 0: Director Of Surgery/Techni herson ID = [id number] for OMIW SHANNAN, SYRIETA POCT-GLUCOSE [id number] 11:21:00 Test Item Value Reference Range Interpretation Comments POC-GLUCOSE METER 124 mg/dL 70-110 H : TESTED A T [facility] (BEAKER) (test code [place] A, = 1538) [place] [address] 0: Director Of Surgery/Techni herson ID = [id number] for OMIW SHANNAN, SYRIETA POCT-GLUCOSE [id number] 06:43:00 Test Item Value Reference Range Interpretation Comments POC-GLUCOSE METER 90 mg/dL 70-110 : TESTED A T [facility] (BEAKER) (test code = [place], 1538) [place] [address] 0: Director Of Surgery/Techni herson ID = [id number] for POLLO CABALLERO POCT-GLUCOSE [id number] 20:55:00 Test Item Value Reference Range Interpretation Comments POC-GLUCOSE METER 169 mg/dL 70-110 H : TESTED A T [facility] (BEAKER) (test code [place] A, = 1538) [place] [address] 0: Director Of Surgery/Techni herson ID = [id number] for POLLO CABALLERO POCT-GLUCOSE [id number] 16:35:00 Test Item Value Reference Range Interpretation Comments POC-GLUCOSE METER 164 mg/dL 70-110 H : TESTED A T [facility] (BEAKER) (test code [place] A, = 1538) [place] [address] 0: Director Of Surgery/Techni herson ID = [id number] for WALDEMAR BAL POCT-GLUCOSE [id number] 11:25:00 Test Item Value Reference Range Interpretation Comments POC-GLUCOSE METER 174 mg/dL 70-110 H : TESTED A T [facility] (BEAKER) (test code [place] A, = 1538) [place] [address] 0: Director Of Surgery/Techni herson ID = [id number] for WALDEMAR BAL POCT-GLUCOSE [id number] 06:32:00 Test Item Value Reference Range Interpretation Comments POC-GLUCOSE METER 108 mg/dL 70-110 : TESTED A T [facility] (BEAKER) (test code [place] E [place] A, = 1538) [place] [address] 0: Director Of Surgery/Techni herson ID = [id number] for BENNY , ROSY POCT-GLUCOSE [id number] 20:44:00 Test Item Value Reference Range Interpretation Comments POC-GLUCOSE METER 194 mg/dL 70-110 H : TESTED A T [facility] (BEAKER) (test code [place] A, = 1538) [place] [address] 0: Director Of Surgery/Techni herson ID = [id number] for BENNY , ROSY POCT-GLUCOSE [id number] 16:59:00 Test Item Value Reference Range Interpretation Comments POC-GLUCOSE METER 156 mg/dL 70-110 H : TESTED A T [facility] (BEAKER) (test code [place] A, = 1538) [place] [address] 0: Director Of Surgery/Techni herson ID = [id number] for CASEY ANO, JUCEL FRAN POCT-GLUCOSE [id number] 11:42:00 Test Item Value Reference Range Interpretation Comments POC-GLUCOSE METER 181 mg/dL 70-110 H : TESTED A T [facility] (BEAKER) (test code [place] A, = 1538) [place] [address] 0: Director Of Surgery/Techni herson ID = [id number] for CASEY ANO, JUCEL FRAN POCT-GLUCOSE [id number] 06:10:00 Test Item Value Reference Range Interpretation Comments POC-GLUCOSE METER 83 mg/dL 70-110 : TESTED A T [facility] (BEAKER) (test code = [place], 1538) [place] [address] 0: Director Of Surgery/Techni herson ID = [id number] for ROSY FAUST POCT-GLUCOSE [id number] 20:42:00 Test Item Value Reference Range Interpretation Comments POC-GLUCOSE METER 221 mg/dL 70-110 H : TESTED A T [facility] (BEAKER) (test code [place] A, = 1538) [place] [address] 0: Director Of Surgery/Techni herson ID = [id number] for ROSY FAUST ANAEROBIC [id number] 18:21:00 Test Item Value Reference Range Interpretation Comments CULTURE (BEAKER) (test No anaerobes isolated code = 1095) POCT-GLUCOSE [id number] 16:23:00 Test Item Value Reference Range Interpretation Comments POC-GLUCOSE METER 193 mg/dL 70-110 H : TESTED A T [facility] (BEAKER) (test code [place] A, = 1538) [place] [address] 0: Director Of Surgery/Techni herson ID = [id number] for JOHN ERAAVIVA POCT-GLUCOSE [id number] 11:54:00 Test Item Value Reference Range Interpretation Comments POC-GLUCOSE METER 117 mg/dL 70-110 H : TESTED A T [facility] (BEAKER) (test code [place] A, = 1538) [place] [address] 0: Director Of Surgery/Techni herson ID = [id number] for JOHN ERA, AVIVA POCT-GLUCOSE [id number] 06:35:00 Test Item Value Reference Range Interpretation Comments POC-GLUCOSE METER 90 mg/dL 70-110 : TESTED A T [facility] (BEAKER) (test code = [place], 1538) [place] [address] 0: Director Of Surgery/Techni herson ID = [id number] for POLLO CABALLERO BASIC METABOLIC [id number] 05:02:00 Test Item Value Reference Range Interpretation [...] fL 9.0-12.3 (test code = 754) POCT-GLUCOSE [id number] 20:52:00 Test Item Value Reference Range Interpretation Comments POC-GLUCOSE METER 164 mg/dL 70-110 H : TESTED A T [facility] (BEAKER) (test code [place] A, = 1538) [place] [address] 0: Director Of Surgery/Techni herson ID = [id number] for POLLO CABALLERO POCT-GLUCOSE [id number] 15:52:00 Test Item Value Reference Range Interpretation Comments POC-GLUCOSE METER 142 mg/dL 70-110 H : TESTED A T [facility] (BEAKER) (test code [place] E [place] A, = 1538) [place] [address] 0: Director Of Surgery/Techni herson ID = [id number] for OMIW SHANNAN, SYRIETA POCT-GLUCOSE [id number] 11:54:00 Test Item Value Reference Range Interpretation Comments POC-GLUCOSE METER 153 mg/dL 70-110 H : TESTED A T [facility] (BEAKER) (test code [place] E [place] A, = 1538) [place] [address] 0: Director Of Surgery/Techni herson ID = [id number] for OMIW SHANNAN, SYRIETA POCT-GLUCOSE [id number] 06:30:00 Test Item Value Reference Range Interpretation Comments POC-GLUCOSE METER 95 mg/dL 70-110 : TESTED A T [facility] (BEAKER) (test code = [place], 1538) [place] [address] 0: Director Of Surgery/Techni herson ID = [id number] for POLLO CABALLERO POCT-GLUCOSE [id number] 20:31:00 Test Item Value Reference Range Interpretation Comments POC-GLUCOSE METER 211 mg/dL 70-110 H : TESTED A T [facility] (BEAKER) (test code [place] E [place]LD[place] A, = 1538) [place] [address] 0: Director Of Surgery/Techni herson ID = [id number] for NATHANPOLLO EVANS POCT-GLUCOSE [id number] 16:40:00 Test Item Value Reference Range Interpretation Comments POC-GLUCOSE METER 184 mg/dL 70-110 H : TESTED A T [facility] (BEAKER) (test code [place] E BLD[place] A, = 1538) [place] [address] 0: Director Of Surgery/Techni herson ID = [id number] for NWAJ IAKU, IJEOMA POCT-GLUCOSE [id number] 12:38:00 Test Item Value Reference Range Interpretation Comments POC-GLUCOSE METER 102 mg/dL 70-110 : TESTED A T [facility] (BEAKER) (test code [place] E [place] A, = 1538) [place] [address] 0: Director Of Surgery/Techni herson ID = [id number] for RUSSELL CADENA POCT-GLUCOSE [id number] 06:36:00 Test Item Value Reference Range Interpretation Comments POC-GLUCOSE METER 107 mg/dL 70-110 : TESTED A T [facility] (BEAKER) (test code [place] E [place]LD[place] A, = 1538) [place] [address] 0: Director Of Surgery/Techni herson ID = [id number] for POLLO CABALLERO POCT-GLUCOSE [id number] 21:08:00 Test Item Value Reference Range Interpretation Comments POC-GLUCOSE METER 189 mg/dL 70-110 H : TESTED A T [facility] (BEAKER) (test code [place] E BLD[place] A, = 1538) [place] [address] 0: Director Of Surgery/Techni herson ID = [id number] for ERNESTINA S, CONCHETTA POCT-GLUCOSE [id number] 16:19:00 Test Item Value Reference Range Interpretation Comments POC-GLUCOSE METER 194 mg/dL 70-110 H : TESTED A T [facility] (BEAKER) (test code [place] E BLD[place] A, = 1538) [place] [address] 0: Director Of Surgery/Techni herson ID = [id number] for OMIW SHANNAN, SYRIETA POCT-GLUCOSE [id number] 12:19:00 Test Item Value Reference Range Interpretation Comments POC-GLUCOSE METER 136 mg/dL 70-110 H : TESTED A T [facility] (BEAKER) (test code [place] E BLD[place] A, = 1538) [place] [address] 0: Director Of Surgery/Techni herson ID = [id number] for OMIW SHANNAN, SYRIETA POCT-GLUCOSE [id number] 06:29:00 Test Item Value Reference Range Interpretation Comments POC-GLUCOSE METER 74 mg/dL 70-110 : TESTED A T [facility] (BEAKER) (test code = [place] A, 1538) [place] [address] 0: Director Of Surgery/Techni herson ID = [id number] for BC EDOUARD COMPREHENSIVE METABOLIC [id number] 05:45:00 Test Item Value Reference Range Interpretation [...] S NOT APPLICABLE FOR DIALYSIS PATIEN TS. [id number] 05:45:00 Test Item Value Reference Range Interpretation Comments MAGNESIUM (BEAKER) (test code = 2.0 mg/dL 1.6-2.6 627) CBC W/PLT COUNT & AUTO [id number] 05:28:00 Test Item Value Reference Range Interpretation [...] PERCENT (BEAKER) (test code = 2801) POCT-GLUCOSE [id number] 21:03:00 Test Item Value Reference Range Interpretation Comments POC-GLUCOSE METER 188 mg/dL 70-110 H : TESTED A T [facility] (BEAKER) (test code [place] E BLD[place] A, = 1538) [facility] 7703 0: Director Of Surgery/Techni herson ID = [id number] for BC EDOUARD POCT-GLUCOSE [id number] 17:00:00 Test Item Value Reference Range Interpretation Comments POC-GLUCOSE METER 136 mg/dL 70-110 H : TESTED A T [facility] (BEAKER) (test code [place] E BLD[place] A, = 1538) [facility] 7703 0: Director Of Surgery/Techni herson ID = [id number] for IJEOMA CACERES POCT-GLUCOSE [id number] 12:08:00 Test Item Value Reference Range Interpretation Comments POC-GLUCOSE METER 115 mg/dL 70-110 H : TESTED A T [facility] 6720 (BEAKER) (test code = LOREE Ramsey [facility], 1538) [address]: Director Of Surgery/Techni herson ID = [id number] for MARIA C CHEW POCT-GLUCOSE [id number] 07:44:00 Test Item Value Reference Range Interpretation Comments POC-GLUCOSE METER 74 mg/dL 70-110 : TESTED A T [facility] 6720 (BEAKER) (test code = RAKELNE R [facility], 1538) [address]: Director Of Surgery/Techni herson ID = [id number] for MARIA C LEWIS [id number] 07:37:00 Test Item Value Reference Range Interpretation Comments MAGNESIUM (BEAKER) (test code = 2.0 mg/dL 1.6-2.6 627) Director Of Surgery ID - EMERSONBASIC METABOLIC [id number] 07:37:00 Test Item Value Reference Range Interpretation [...] APPLICABLE FOR DIALYSIS PATIEN TS. Director Of Surgery ID - EMERSONCBC (HEMOGRAM ONLY)2019-12-18 07:02:00 Test [...] 0-0 (BEAKER) (test code = 413) POCT-GLUCOSE [id number] 21:19:00 Test Item Value Reference Range Interpretation Comments POC-GLUCOSE METER 190 mg/dL 70-110 H : [facility] (BEAKER) (test code = [place] S[place], 1538) [address]: Director Of Surgery/Techni herson ID = [id number] for Barb Martins POCT-GLUCOSE [id number] 18:00:00 Test Item Value Reference Range Interpretation Comments POC-GLUCOSE METER 140 mg/dL 70-110 H : TESTED A T [facility] 6720 (BEAKER) (test code = [facility], 1538) [address]: Director Of Surgery/Techni herson ID = [id number] for CHINTAN MULLINS, KARLANEHOPE POCT-GLUCOSE [id number] 11:50:00 Test Item Value Reference Range Interpretation Comments POC-GLUCOSE METER 136 mg/dL 70-110 H : TESTED A T [facility] 6720 (BEAKER) (test code = [facility], 1538) [address]: Director Of Surgery/Techni herson ID = [id number] for CHINTAN RENEEIA, KARLANEKA POCT-GLUCOSE [id number] 07:40:00 Test Item Value Reference Range Interpretation Comments POC-GLUCOSE METER 82 mg/dL 70-110 : TESTED A T [facility] 6720 (BEAKER) (test code = [facility], 1538) [address]: Director Of Surgery/Techni herson ID = [id number] for MARIAMA IAKARLA CUMMINGSNEHOPE [id number] 06:10:00 Test Item Value Reference Range Interpretation Comments MAGNESIUM (BEAKER) (test code = 2.2 mg/dL 1.6-2.6 627) Director Of Surgery ID - BSBASIC METABOLIC [id number] 06:10:00 Test Item Value Reference Range Interpretation [...] APPLICABLE FOR DIALYSIS PATIEN TS. Director Of Surgery ID - BSCBC (HEMOGRAM ONLY)2019-12-17 05:34:00 Test [...] 0-0 (BEAKER) (test code = 413) POCT-GLUCOSE [id number] 21:02:00 Test Item Value Reference Range Interpretation Comments POC-GLUCOSE METER 153 mg/dL 70-110 H : TESTED A T [facility] 6720 (BEAKER) (test code = [facility] [facility], 1538) [address]: Director Of Surgery/Techni herson ID = [id number] for PREETI WYATT POCT-GLUCOSE [id number] 16:46:00 Test Item Value Reference Range Interpretation Comments POC-GLUCOSE METER 155 mg/dL 70-110 H : TESTED A T [facility] 6720 (BEAKER) (test code = [facility] [place] [facility], 1538) [address]: Director Of Surgery/Techni herson ID = [id number] for HU NTER, HIWITHA RAD, CHEST, 1 VIEW, NON [id number] 15:53:00Reason for exam:->RIGHT PICC LINE TIP VERIFICATIONShould [...] MDReport Verified Date/Time: 12/16/2019 15:53:59 Reading Location: [facility] Radiology Reading Room TISSUE [id number] 13:27:00Surgical Pathology Report Case: [id number] Authorizing Provider: Gabriel Stovall DPM Collected: 12/02/2019 08:41 AM Ordering Location: [facility] PERIOPERATIVE Received: 12/02/2019 09:24 AM SERVICES [...] GANGRENOUS CHANGES Signing Pathologist Direct Phone Line: [phone] signed by Cassia Xiao MD on 12/16/2019 at 1:27 PMSlides for microscopic examination are received on 12/08/2019.MO/[id number] X 2Gangrene of right foot (HCC) [I96] [id number]. Toe, rightB. Foot, rightC. Foot, rightA. Received [...] affected bone is red-pink, trabeculated and firm. Finance Assistant sectionsare submitted as follows:Section codeA1-skin and soft [...] cut surface is shabazz-yellow, trabeculated and firm. Finance Assistant sections are submitted in C1-C2 following decalcification.SHARON Leon (ASCP)dermatological surgeon-C. The samples show variable amounts of gangrenous necrosis. In the C-sample, in slide C-1, there is prominent associated acute osteomyelitis in the C-1 slide. Some articular cartilage does not show significant inflammation.POCT-GLUCOSE [id number] 12:00:00 Test Item Value Reference Range Interpretation Comments POC-GLUCOSE METER 122 mg/dL 70-110 H : TESTED A T [facility] 6720 (BEAKER) (test code = [facility], 1538) [address]: Director Of Surgery/Techni herson ID = [id number] for YADI KU [id number] 07:46:00 Test Item Value Reference Range Interpretation Comments MAGNESIUM (BEAKER) (test code = 2.2 mg/dL 1.6-2.6 627) Director Of Surgery ID - [place] [facility] [id number] 07:46:00 Test Item Value Reference Range Interpretation [...] APPLICABLE FOR DIALYSIS PATIEN TS. Director Of Surgery ID - ANGELINA [facility] (HEMOGRAM ONLY)2019-12-16 07:16:00 Test Item Value Reference [...] 0-0 (BEAKER) (test code = 413) POCT-GLUCOSE [id number] 07:02:00 Test Item Value Reference Range Interpretation Comments POC-GLUCOSE METER 99 mg/dL 70-110 : TESTED A T [facility] 6720 (BEAKER) (test code = LOREE Ramsey [facility], 1538) 03698: Director Of Surgery/Techni herson ID = [id number] for YADI SANDERSON POCT-GLUCOSE [id number] 21:27:00 Test Item Value Reference Range Interpretation Comments POC-GLUCOSE METER 287 mg/dL 70-110 H : TESTED A T [facility] 6720 (BEAKER) (test code = LOREE Ramsey [facility], 1538) 89190: Director Of Surgery/Techni herson ID = [id number] for PREETI WYATT TISSUE [id number] 18:37:00Surgical Pathology Report Case: [id number] Authorizing Provider: Gabriel Stovall DPM Collected: 12/05/2019 01:01 PM Ordering Location: [facility] PERIOPERATIVE Received: 12/05/2019 01:40 PM SERVICES Pathologist: Naresh Tillman MD Specimen: Foot, Right, right foot amputation RIGHT FOOT, TRANSMETATARSAL AMPUTATION: - SKIN AND SOFT TISSUE WITH ACUTE INFLAMMATION AND ABSCESS FORMATION, AND NECROSIS - SKIN AND SOFT TISSUE RESECTION MARGIN, INVOLVED BY ABSCESS FORMATION - BONE RESECTION MARGIN WITH FEATURES OF ACUTE OSTEOMYELITIS Signing Pathologist Direct Phone Line: [phone], [phone]-loahvey surgical wound, initial encounter [[id number]]40338, 69778, 74009, 19765Qoaq, rightReceived in formalin labeled with the patient's [...] affected bone is shabazz-yellow, trabeculated and firm. Finance Assistant sections are submitted as follows:Section codeA1-lesion and skin and soft tissue margin en rkvpF1-J1-htes margin following decalcificationA4-skin lesionA5-skin lesion and underlying affected bone following decalcificationSHARON Leon (ASCP)cmPerformed.POCT-GLUCOSE METER 2019-12-15 16:55:00 Test Item Value Reference Range Interpretation Comments POC-GLUCOSE METER 149 mg/dL 70-110 H : TESTED A T [facility] 6720 (BEAKER) (test code = [facility], 1538) 02598: Director Of Surgery/Techni herson ID = [id number] for PAVAN ZUÑIGA POCT-GLUCOSE [id number] 11:57:00 Test Item Value Reference Range Interpretation Comments POC-GLUCOSE METER 251 mg/dL 70-110 H : TESTED A T [facility] 6720 (BEAKER) (test code = [facility], 1538) 82543: Director Of Surgery/Techni herson ID = [id number] for HU NTER, HIWITHA SURGICALLY OBTAINED CULTURE + GRAM [id number] 10:43:00 Test Item Value Reference Range Interpretation Comments CULTURE (BEAKER) (test No growth code = 1095) GRAM STAIN RESULT <1+ White blood cells (BEAKER) (test code = seen 1123) GRAM STAIN RESULT No organisms seen (BEAKER) (test code = 00638) POCT-GLUCOSE [id number] 07:10:00 Test Item Value Reference Range Interpretation Comments POC-GLUCOSE METER 130 mg/dL 70-110 H : TESTED A T [facility] 6720 (BEAKER) (test code = [facility], 1538) 29557: Director Of Surgery/Techni herson ID = [id number] for HU NTER, HIWITHA [id number] 06:12:00 Test Item Value Reference Range Interpretation Comments MAGNESIUM (BEAKER) (test code = 2.3 mg/dL 1.6-2.6 627) Director Of Surgery ID - PIAYA LBASIC METABOLIC [id number] 06:12:00 Test Item Value Reference Range Interpretation [...] APPLICABLE FOR DIALYSIS PATIEN TS. Director Of Surgery ID - PIAYA LCBC (HEMOGRAM ONLY)2019-12-15 05:22:00 [...] 0-0 (BEAKER) (test code = 413) POCT-GLUCOSE [id number] 21:27:00 Test Item Value Reference Range Interpretation Comments POC-GLUCOSE METER 225 mg/dL 70-110 H : TESTED A T [facility] 6720 (BEAKER) (test code = [facility], 1538) 97865: Director Of Surgery/Techni herson ID = [id number] for DA MAGALY IBRAHIMO POCT-GLUCOSE [id number] 17:30:00 Test Item Value Reference Range Interpretation Comments POC-GLUCOSE METER 219 mg/dL 70-110 H : TESTED A T [facility] 6720 (BEAKER) (test code = [facility], 1538) 25262: Director Of Surgery/Techni herson ID = [id number] for SA NCHEZ, KARY POCT-GLUCOSE [id number] 12:19:00 Test Item Value Reference Range Interpretation Comments POC-GLUCOSE METER 184 mg/dL 70-110 H : TESTED A T [facility] 6720 (BEAKER) (test code = [facility], 1538) 01914: Director Of Surgery/Techni herson ID = [id number] for SA NCHEZ, KARY POCT-GLUCOSE [id number] 08:06:00 Test Item Value Reference Range Interpretation Comments POC-GLUCOSE METER 126 mg/dL 70-110 H : TESTED A T [facility] 6720 (BEAKER) (test code = [facility], 1538) 51474: Director Of Surgery/Techni herson ID = [id number] for SA NCHEZ, KARY [id number] 06:11:00 Test Item Value Reference Range Interpretation Comments MAGNESIUM (BEAKER) (test code = 2.3 mg/dL 1.6-2.6 627) Director Of Surgery ID - PIAYA LBASIC METABOLIC [id number] 06:11:00 Test Item Value Reference Range Interpretation [...] APPLICABLE FOR DIALYSIS PATIEN TS. Director Of Surgery ID - PIAYA LCBC (HEMOGRAM ONLY)2019-12-14 05:21:00 [...] 0-0 (BEAKER) (test code = 413) POCT-GLUCOSE [id number] 21:54:00 Test Item Value Reference Range Interpretation Comments POC-GLUCOSE METER 240 mg/dL 70-110 H : TESTED A T [facility] 6720 (BEAKER) (test code = [facility], 1538) 94118: Director Of Surgery/Techni herson ID = [id number] for GREG BARBOSA POCT-GLUCOSE [id number] 17:05:00 Test Item Value Reference Range Interpretation Comments POC-GLUCOSE METER 145 mg/dL 70-110 H : TESTED A T [facility] 6720 (BEAKER) (test code = [facility], 1538) 21341: Director Of Surgery/Techni herson ID = [id number] for Jose Rowann SPIN/CONCENTRATION [id number] 12:25:00 Test Item Value Reference Range Interpretation Comments CONCENTRATION CHARGED (BEAKER) (test Done code = 2657) POCT-GLUCOSE [id number] 11:27:00 Test Item Value Reference Range Interpretation Comments POC-GLUCOSE METER 294 mg/dL 70-110 H : TESTED A T [facility] 6720 (BEAKER) (test code = [facility], 1538) 34617: Director Of Surgery/Techni herson ID = [id number] for Jose Rowann POCT-GLUCOSE [id number] 07:32:00 Test Item Value Reference Range Interpretation Comments POC-GLUCOSE METER 109 mg/dL 70-110 : TESTED A T [facility] 6720 (BEAKER) (test code = [facility], 1538) 91509: Director Of Surgery/Techni herson ID = [id number] for Jose Rowann CBC (HEMOGRAM ONLY)2019-12-13 06:36:00 Test Item Value [...] WBC 0-0 (BEAKER) (test code = 413) [id number] 05:43:00 Test Item Value Reference Range Interpretation Comments MAGNESIUM (BEAKER) (test code = 2.3 mg/dL 1.6-2.6 627) Director Of Surgery ID Bryant MONTOYA WBASIC METABOLIC [id number] 05:43:00 Test Item Value Reference Range Interpretation [...] APPLICABLE FOR DIALYSIS PATIEN TS. Director Of Surgery ID Bryant LINDSAY WPOCT-GLUCOSE [id number] 21:23:00 Test Item Value Reference Range Interpretation Comments POC-GLUCOSE METER 225 mg/dL 70-110 H : [facility] (BEAKER) (test code = [place] [facility], 1538) 69974: Director Of Surgery/Techni herson ID = [id number] for CRESENCIO BAH POCT-GLUCOSE [id number] 17:01:00 Test Item Value Reference Range Interpretation Comments POC-GLUCOSE METER 199 mg/dL 70-110 H : TESTED A T [facility] 6720 (BEAKER) (test code = [facility], 1538) 19077: Director Of Surgery/Techni herson ID = [id number] for PAVAN ZUÑIGA POCT-GLUCOSE [id number] 12:55:00 Test Item Value Reference Range Interpretation Comments POC-GLUCOSE METER 148 mg/dL 70-110 H : TESTED A T [facility] 6720 (BEAKER) (test code = [facility], 1538) 62260: Director Of Surgery/Techni herson ID = [id number] for KYLER MOHAMUD POCT-GLUCOSE [id number] 08:06:00 Test Item Value Reference Range Interpretation Comments POC-GLUCOSE METER 179 mg/dL 70-110 H : TESTED A T [facility] 6720 (BEAKER) (test code = [facility], 1538) 68061: Director Of Surgery/Techni herson ID = [id number] for PAVAN ZUÑIGA CBC (HEMOGRAM ONLY)2019-12-12 06:52:00 [...] WBC 0-0 (BEAKER) (test code = 413) [id number] 06:47:00 Test Item Value Reference Range Interpretation Comments MAGNESIUM (BEAKER) (test code = 2.3 mg/dL 1.6-2.6 627) Director Of Surgery ID - LABASIC METABOLIC [id number] 06:47:00 Test Item Value Reference Range Interpretation [...] APPLICABLE FOR DIALYSIS PATIEN TS. Director Of Surgery ID - LAPOCT-GLUCOSE [id number] 21:12:00 Test Item Value Reference Range Interpretation Comments POC-GLUCOSE METER 285 mg/dL 70-110 H : TESTED A T [facility] 6720 (BEAKER) (test code = [place], 1538) 92137: Director Of Surgery/Techni herson ID = [id number] for CRESENCIO BAH POCT-GLUCOSE [id number] 16:56:00 Test Item Value Reference Range Interpretation Comments POC-GLUCOSE METER 226 mg/dL 70-110 H : TESTED A T [facility] 6720 (BEAKER) (test code = [place], 1538) 31967: Director Of Surgery/Techni herson ID = [id number] for MARIA C CHEW POCT-GLUCOSE [id number] 11:57:00 Test Item Value Reference Range Interpretation Comments POC-GLUCOSE METER 293 mg/dL 70-110 H : TESTED A T [facility] 6720 (BEAKER) (test code = [facility], 1538) 19027: Director Of Surgery/Techni herson ID = [id number] for MARIA C CHEW POCT-GLUCOSE [id number] 07:36:00 Test Item Value Reference Range Interpretation Comments POC-GLUCOSE METER 152 mg/dL 70-110 H : TESTED A T [facility] 6720 (BEAKER) (test code = [facility], 1538) 85671: Director Of Surgery/Techni herson ID = [id number] for MARIA C CHEW [id number] 06:31:00 Test Item Value Reference Range Interpretation Comments MAGNESIUM (BEAKER) 2.4 mg/dL 1.6-2.6 Specimen slightly (test code = 627) hemolyzed Director Of Surgery ID - FARHAT LBASIC METABOLIC [id number] 06:31:00 Test Item Value Reference Range Interpretation [...] APPLICABLE FOR DIALYSIS PATIEN TS. Director Of Surgery ID - FARHAT LCBC (HEMOGRAM ONLY)2019-12-11 05:58:00 Test Item Value [...] 0-0 (BEAKER) (test code = 413) POCT-GLUCOSE [id number] 21:34:00 Test Item Value Reference Range Interpretation Comments POC-GLUCOSE METER 290 mg/dL 70-110 H : TESTED A T [facility] 6720 (BEAKER) (test code = [facility], 1538) 29789: Director Of Surgery/Techni herson ID = [id number] for ZOILA GAMEZ POCT-GLUCOSE [id number] 16:49:00 Test Item Value Reference Range Interpretation Comments POC-GLUCOSE METER 247 mg/dL 70-110 H : TESTED A T [facility] 6720 (BEAKER) (test code = [facility], 153) 33831: Director Of Surgery/Techni herson ID = [id number] for NEREIDA CHANDAN ENGLAND POCT-GLUCOSE [id number] 11:15:00 Test Item Value Reference Range Interpretation Comments POC-GLUCOSE METER 244 mg/dL 70-110 H : TESTED A T [facility] 6720 (BEAKER) (test code = LOREE Ramsey [facility], 1538) 28088: Director Of Surgery/Techni herson ID = [id number] for CHANDAN PADRON [id number] 08:20:00 Test Item Value Reference Range Interpretation Comments MAGNESIUM (BEAKER) (test code = 2.4 mg/dL 1.6-2.6 627) Director Of Surgery ID - MINERVA BBASIC METABOLIC [id number] 08:20:00 Test Item Value Reference Range Interpretation [...] APPLICABLE FOR DIALYSIS PATIEN TS. Director Of Surgery ID - MINERVA BPOCT-GLUCOSE [id number] 07:50:00 Test Item Value Reference Range Interpretation Comments POC-GLUCOSE METER 239 mg/dL 70-110 H : TESTED A T [facility] 6720 (BEAKER) (test code = LOREE Ramsey [facility], 1538) 10707: Director Of Surgery/Techni herson ID = [id number] for CHANDAN PADRON CBC (HEMOGRAM ONLY)2019-12-10 07:07:00 [...] 0-0 (BEAKER) (test code = 413) POCT-GLUCOSE [id number] 21:25:00 Test Item Value Reference Range Interpretation Comments POC-GLUCOSE METER 248 mg/dL 70-110 H : TESTED A T [facility] 6720 (BEAKER) (test code = [facility], 153) 41517: Director Of Surgery/Techni herson ID = [id number] for Barb Martins POCT-GLUCOSE [id number] 17:15:00 Test Item Value Reference Range Interpretation Comments POC-GLUCOSE METER 221 mg/dL 70-110 H : TESTED A T [facility] 6720 (BEAKER) (test code = [facility], 1538) 59140: Director Of Surgery/Techni herson ID = [id number] for HU NTER, HIWITHA POCT-GLUCOSE [id number] 12:00:00 Test Item Value Reference Range Interpretation Comments POC-GLUCOSE METER 220 mg/dL 70-110 H : TESTED A T [facility] 6720 (BEAKER) (test code = [facility], 153) 77498: Director Of Surgery/Techni herson ID = [id number] for HU NTER, HIWITHA [id number] 07:12:00 Test Item Value Reference Range Interpretation Comments MAGNESIUM (BEAKER) (test code = 2.4 mg/dL 1.6-2.6 627) Director Of Surgery ID - ANGELINA FBASIC METABOLIC [id number] 07:12:00 Test Item Value Reference Range Interpretation [...] APPLICABLE FOR DIALYSIS PATIEN TS. Director Of Surgery ID Bryant ALFARO FPOCT-GLUCOSE [id number] 07:04:00 Test Item Value Reference Range Interpretation Comments POC-GLUCOSE METER 176 mg/dL 70-110 H : TESTED A T [facility] 6720 (BEAKER) (test code = [place], 1538) 75115: Director Of Surgery/Techni herson ID = [id number] for YADI KU CBC (HEMOGRAM ONLY)2019-12-09 06:51:00 [...] 0-0 (BEAKER) (test code = 413) POCT-GLUCOSE [id number] 22:22:00 Test Item Value Reference Range Interpretation Comments POC-GLUCOSE METER 248 mg/dL 70-110 H : TESTED A T [facility] 6720 (BEAKER) (test code = [facility], 1538) 25582: Director Of Surgery/Techni herson ID = [id number] for ZOILA GAMEZ BLOOD [id number] 21:00:00 Test Item Value Reference Range Interpretation Comments CULTURE (BEAKER) (test No growth in 5 days code = 1095) BLOOD [id number] 21:00:00 Test Item Value Reference Range Interpretation Comments CULTURE (BEAKER) (test No growth in 5 days code = 1095) ANAEROBIC [id number] 17:38:00 Test Item Value Reference Range Interpretation Comments CULTURE (BEAKER) (test No anaerobes isolated code = 1095) POCT-GLUCOSE [id number] 16:42:00 Test Item Value Reference Range Interpretation Comments POC-GLUCOSE METER 193 mg/dL 70-110 H : TESTED A T [facility] 6720 (BEAKER) (test code = [employer] [facility], 1538) 97116: Director Of Surgery/Techni herson ID = [id number] for ASHUTOSH WALTERSBo DAMARISRUDOLPH POCT-GLUCOSE [id number] 12:04:00 Test Item Value Reference Range Interpretation Comments POC-GLUCOSE METER 199 mg/dL 70-110 H : TESTED A T [facility] 6720 (BEAKER) (test code = LOREE Ramsey [place], 1538) 83137: Director Of Surgery/Techni herson ID = [id number] for TERELL GREENWOOD POCT-GLUCOSE [id number] 08:08:00 Test Item Value Reference Range Interpretation Comments POC-GLUCOSE METER 168 mg/dL 70-110 H : TESTED A T [facility] 6720 (BEAKER) (test code = LOREE Ramsey [place], 1538) 48129: Director Of Surgery/Techni herson ID = [id number] for TERELL GREENWOOD [id number] 07:27:00 Test Item Value Reference Range Interpretation Comments MAGNESIUM (BEAKER) (test code = 2.1 mg/dL 1.6-2.6 627) Director Of Surgery ID - JORGE ALBERTO CBASIC METABOLIC [id number] 07:27:00 Test Item Value Reference Range Interpretation [...] 697) EGFR (BEAKER) (test 78 mL/min/1.73 ESTIMA MRAGO GFR IS code = 1092) sq m NOT ACCURATE CREATININE CLEARANCE IN PREDICTING GLOMERULAR FILTRATION RATE . ESTIMATED GFR I S NOT APPLICABLE FOR DIALYSIS PATIEN TS. Director Of Surgery ID - JORGE ALBERTO CCBC (HEMOGRAM ONLY)2019-12-08 [...] 0-0 (BEAKER) (test code = 413) POCT-GLUCOSE [id number] 21:57:00 Test Item Value Reference Range Interpretation Comments POC-GLUCOSE METER 215 mg/dL 70-110 H : TESTED A T [facility] 6720 (BEAKER) (test code = [facility], 153) 27828: Director Of Surgery/Techni herson ID = [id number] for BART LESLIE POCT-GLUCOSE [id number] 17:22:00 Test Item Value Reference Range Interpretation Comments POC-GLUCOSE METER 151 mg/dL 70-110 H : TESTED A T [facility] 6720 (BEAKER) (test code = [facility], 153) 48006: Director Of Surgery/Techni herson ID = [id number] for AMBIKA ERICK PAVAN SURGICALLY OBTAINED CULTURE + GRAM [id number] 13:45:00 Test Item Value Reference Range Interpretation [...] No organisms seen (BEAKER) (test code = 557598) [id number] 06:32:00 Test Item Value Reference Range Interpretation Comments MAGNESIUM (BEAKER) 2.2 mg/dL 1.6-2.6 Specimen slightly (test code = 627) hemolyzed Director Of Surgery ID - PIAYA LBASIC METABOLIC [id number] 06:32:00 Test Item Value Reference Range Interpretation [...] APPLICABLE FOR DIALYSIS PATIEN TS. Director Of Surgery ID - PIAYA LCBC (HEMOGRAM ONLY)2019-12-07 05:39:00 [...] 0-0 (BEAKER) (test code = 413) POCT-GLUCOSE [id number] 21:14:00 Test Item Value Reference Range Interpretation Comments POC-GLUCOSE METER 165 mg/dL 70-110 H : TESTED A T [facility] 6720 (BEAKER) (test code = [facility], 153) 37131: Director Of Surgery/Techni herson ID = [id number] for GO NZALES III, LEILANI SPIN/CONCENTRATION [id number] 18:12:00 Test Item Value Reference Range Interpretation Comments CONCENTRATION CHARGED (BEAKER) (test Done code = 2657) POCT-GLUCOSE [id number] 16:48:00 Test Item Value Reference Range Interpretation Comments POC-GLUCOSE METER 155 mg/dL 70-110 H : TESTED A T [facility] 6720 (BEAKER) (test code = [facility], 153) 43629: Director Of Surgery/Techni herson ID = [id number] for HU NTER, HIWITHA POCT-GLUCOSE [id number] 12:18:00 Test Item Value Reference Range Interpretation Comments POC-GLUCOSE METER 163 mg/dL 70-110 H : TESTED A T [facility] 6720 (BEAKER) (test code = LOREE Ramsey [place], 1538) 85571: Director Of Surgery/Techni herson ID = [id number] for FINESSE MERCEDES POCT-GLUCOSE [id number] 07:11:00 Test Item Value Reference Range Interpretation Comments POC-GLUCOSE METER 106 mg/dL 70-110 : TESTED A T [facility] 6720 (BEAKER) (test code = LOREE Ramsey [place], 1538) 09361: Director Of Surgery/Techni herson ID = [id number] for BERRY NTMARCOS BRIONESWITHA BLOOD [id number] 06:00:00 Test Item Value Reference Range Interpretation Comments CULTURE (BEAKER) (test No growth in 5 days code = 1095) BLOOD [id number] 06:00:00 Test Item Value Reference Range Interpretation Comments CULTURE (BEAKER) (test No growth in 5 days code = 1095) [id number] 05:55:00 Test Item Value Reference Range Interpretation Comments MAGNESIUM (BEAKER) (test code = 1.8 mg/dL 1.6-2.6 627) Director Of Surgery ID - PALOMA MBASIC METABOLIC [id number] 05:55:00 Test Item Value Reference Range Interpretation [...] APPLICABLE FOR DIALYSIS PATIEN TS. Director Of Surgery ID - PALOMA MCBC (HEMOGRAM ONLY)2019-12-06 05:21:00 [...] 0-0 (BEAKER) (test code = 413) POCT-GLUCOSE [id number] 21:16:00 Test Item Value Reference Range Interpretation Comments POC-GLUCOSE METER 158 mg/dL 70-110 H : TESTED A T [facility] 6720 (BEAKER) (test code = [place] [facility], 1538) 10694: Director Of Surgery/Techni herson ID = [id number] for GO ALES III, LEILANI ANAEROBIC [id number] 17:15:00 Test Item Value Reference Range Interpretation Comments CULTURE (BEAKER) (test No anaerobes isolated code = 1095) POCT-GLUCOSE [id number] 16:48:00 Test Item Value Reference Range Interpretation Comments POC-GLUCOSE METER 127 mg/dL 70-110 H : TESTED A T [facility] 6720 (BEAKER) (test code = [place], 1538) 79876: Director Of Surgery/Techni herson ID = [id number] for TERELL GREENWOOD RAD, FOOT, MIN 3 VIEWS, [id number] 16:43:00Reason for exam:->s/p debridementFINAL REPORT TECHNIQUE: Frontal, [...] [place] Verified Date/Time: 12/05/2019 16:43:31 Reading Location: [address] Radiology Reading Room SURGICALLY OBTAINED CULTURE + GRAM [id number] 13:21:00 Test Item Value Reference Interpretation Comments [...] No organisms seen (BEAKER) (test code = 139843) POCT-GLUCOSE [id number] 13:08:00 Test Item Value Reference Range Interpretation Comments POC-GLUCOSE METER 127 mg/dL 70-110 H : TESTED A T [facility] 6720 (BEAKER) (test code = [facility], 1538) 97119: Director Of Surgery/Techni herson ID = [id number] for RENEE ROGEL POCT-GLUCOSE [id number] 08:14:00 Test Item Value Reference Range Interpretation Comments POC-GLUCOSE METER 163 mg/dL 70-110 H : TESTED A T [facility] 6720 (BEAKER) (test code = [facility], 153) 04503: Director Of Surgery/Techni herson ID = [id number] for TERELL GREENWOOD [id number] 07:20:00 Test Item Value Reference Range Interpretation Comments MAGNESIUM (BEAKER) (test code = 1.8 mg/dL 1.6-2.6 627) Director Of Surgery ID - PALOMA MBASIC METABOLIC [id number] 07:20:00 Test Item Value Reference Range Interpretation [...] APPLICABLE FOR DIALYSIS PATIEN TS. Director Of Surgery ID - PALOMA MCBC (HEMOGRAM ONLY)2019-12-05 06:44:00 [...] 0-0 (BEAKER) (test code = 413) POCT-GLUCOSE [id number] 21:18:00 Test Item Value Reference Range Interpretation Comments POC-GLUCOSE METER 146 mg/dL 70-110 H : TESTED A T [facility] 6720 (BEAKER) (test code = [place], 1538) 30749: Director Of Surgery/Techni herson ID = [id number] for Barb Martins PLATELET AGGREGATION: DRUG [id number] 17:58:00 Test Item Value Reference Range Interpretation Comments ARACHADONIC ACID 75 % 63-89 RESULT(BEAKER) (test code = 2138) PLATELET AGG DRUG Normal arachidonic INTERPRETATION (BEAKER) acid and ADP results. (test code = 2408) No U3T36-xcdhi or aspirin-like drug effect. [id number] Arnav Rouse M.D. (BEAKER) (test code = (electonic signature) 6853) PLATELET COUNT AGG 349 K/CU MM 150-450 (BEAKER) (test code = 2656) ADP (BEAKER) (test code 74 % 62-100 = 4654) PLATELET RICH 290 k/cu mm 200-300 PLASMA(BEAKER) (test code = 2134) Platelet function studies by aggregation methodology on samples with platelet count <75,000/CU MMare unreliable; platelet function assessment should not be based on a single test.Director Of Surgery ID - 6000POCT-GLUCOSE [id number] 16:20:00 Test Item Value Reference Range Interpretation Comments POC-GLUCOSE METER 141 mg/dL 70-110 H : TESTED A T [facility] 6720 (BEAKER) (test code = [facility], 153) 99261: Director Of Surgery/Techni herson ID = [id number] for CHANDAN PADRON POCT-GLUCOSE [id number] 11:53:00 Test Item Value Reference Range Interpretation Comments POC-GLUCOSE METER 138 mg/dL 70-110 H : TESTED A T [facility] 6720 (BEAKER) (test code = [facility], 1538) 33192: Director Of Surgery/Techni herson ID = [id number] for CHANDAN PADRON POCT-GLUCOSE [id number] 08:18:00 Test Item Value Reference Range Interpretation Comments POC-GLUCOSE METER 93 mg/dL 70-110 : TESTED A T [facility] 6720 (BEAKER) (test code = [facility], 1538) 00187: Director Of Surgery/Techni herson ID = [id number] for BARB QUEZADA [id number] 07:55:00 Test Item Value Reference Range Interpretation Comments MAGNESIUM (BEAKER) (test code = 1.8 mg/dL 1.6-2.6 627) Director Of Surgery ID - JORGE ALBERTO CBASIC METABOLIC [id number] 07:55:00 Test Item Value Reference Range Interpretation [...] APPLICABLE FOR DIALYSIS PATIEN TS. Director Of Surgery ID - JORGE ALBERTO [id number] 07:33:00 Test Item Value Reference Range Interpretation [...] 0-0 (BEAKER) (test code = 413) POCT-GLUCOSE [id number] 21:23:00 Test Item Value Reference Range Interpretation Comments POC-GLUCOSE METER 143 mg/dL 70-110 H : TESTED A T [facility] 6720 (BEAKER) (test code = [facility], 153) 87732: Director Of Surgery/Techni herson ID = [id number] for MAGALY GAMEZO POCT-GLUCOSE [id number] 17:01:00 Test Item Value Reference Range Interpretation Comments POC-GLUCOSE METER 143 mg/dL 70-110 H : TESTED A T [facility] 6720 (BEAKER) (test code = [facility], 153) [id number]: Director Of Surgery/Techni herson ID = [id number] for ZA MAX, DAMARISNDY [id number] 14:53:00 Test Item Value Reference Range Interpretation Comments ACTIVATED CLOTTING TIME 257 sec : 74 -137 seconds, (BEAKER) (test code = Baseli ne: TESTED AT 441) [facility] [address] [facility], 770 30: Director Of Surgery/Techni herson ID = [id number] for HI JORGE, CHONG [id number] 14:12:00 Test Item Value Reference Range Interpretation Comments ACTIVATED CLOTTING TIME 235 sec : 74 -137 seconds, (BEAKER) (test code = Baseli ne: TESTED AT 441) [facility] [address] [facility], 770 30: Director Of Surgery/Techni herson ID = [id number] for HI JORGE, CHONG POCT-GLUCOSE [id number] 11:20:00 Test Item Value Reference Range Interpretation Comments POC-GLUCOSE METER 170 mg/dL 70-110 H : TESTED A T [facility] 6720 (BEAKER) (test code = [facility], 153) [id number]: Director Of Surgery/Techni herson ID = [id number] for TERELL GREENWOOD POCT-GLUCOSE [id number] 08:25:00 Test Item Value Reference Range Interpretation Comments POC-GLUCOSE METER 161 mg/dL 70-110 H : TESTED A T [facility] 6720 (BEAKER) (test code = LOREE SIDHU MS, 1538) [address]33: Director Of Surgery/Techni herson ID = [id number] for TERELL GREENWOOD [id number] 07:44:00 Test Item Value Reference Range Interpretation Comments MAGNESIUM (BEAKER) (test code = 1.8 mg/dL 1.6-2.6 627) Director Of Surgery ID - JUN CBASIC METABOLIC [id number] 07:44:00 Test Item Value Reference Range Interpretation [...] APPLICABLE FOR DIALYSIS PATIEN TS. Director Of Surgery ID - JUN [id number] 06:52:00 Test Item Value Reference Range Interpretation [...] WBC 0-0 (BEAKER) (test code = 413) [id number] 00:10:00 Test Item Value Reference Range Interpretation Comments PARTIAL THROMBOPLASTIN TIME 95.1 seconds 22.5-36.0 H (BEAKER) (test code = 760) POCT-GLUCOSE [id number] 21:24:00 Test Item Value Reference Range Interpretation Comments POC-GLUCOSE METER 223 mg/dL 70-110 H : TESTED A T [facility] 6720 ([facility] (test code = LOREE SIDHU MS, 1538) 52499: Director Of Surgery/Techni herson ID = [id number] for CRESENCIO BAH VANCOMYCIN LEVEL, [id number] 19:47:00 Test Item Value Reference Range Interpretation Comments VANCOMYCIN TROUGH (BEAKER) (test 13.8 ug/mL 10.0-20.0 code = 522) Director Of Surgery ID - [id number] 17:17:00 Test Item Value Reference Range Interpretation Comments PARTIAL THROMBOPLASTIN TIME 37.4 seconds 22.5-36.0 H (BEAKER) (test code = 760) POCT-GLUCOSE [id number] 16:57:00 Test Item Value Reference Range Interpretation Comments POC-GLUCOSE METER 193 mg/dL 70-110 H : TESTED A T [facility] 6720 (BEAKER) (test code = [facility], 153) 92993: Director Of Surgery/Techni herson ID = [id number] for CHANDAN PADRON, FOOT, MIN 3 VIEWS, [id number] 13:05:00Reason for exam:->s/p debridementFINAL REPORT CLINICAL HISTORY: s/p debridement TECHNIQUE: 3 views of the right foot COMPARISON: 12/01/2019 IMPRESSION: 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 There is gauze packing the soft tissue defect. The remaining bones appear intac t. Signed: Pollo Cortez MDReport Verified Date/Time: 12/02/2019 13:05:47 Reading Location: [facility] Radiology Reading Room POCT-GLUCOSE METER 2019-12-02 12:35:00 Test Item Value Reference Range Interpretation Comments POC-GLUCOSE METER 216 mg/dL 70-110 H : TESTED A T [facility] 6720 (BEAKER) (test code = [facility], 153) 57569: Director Of Surgery/Techni herson ID = [id number] for FINESSE MERCEDES POCT-GLUCOSE [id number] 09:24:00 Test Item Value Reference Range Interpretation Comments POC-GLUCOSE METER 232 mg/dL 70-110 H : TESTED A T [facility] 6720 (BEAKER) (test code = [facility], 153) 80989: Director Of Surgery/Techni herson ID = [id number] for VASHTI LINK HEMOGLOBIN [id number] 08:08:00 Test Item Value Reference Range Interpretation Comments HEMOGLOBIN A1C (BEAKER) (test code = 10.0 % 4.3-6.1 H 368) POCT-GLUCOSE [id number] 05:46:00 Test Item Value Reference Range Interpretation Comments POC-GLUCOSE METER 239 mg/dL 70-110 H : TESTED A T [facility] 6720 (BEAKER) (test code = [facility], 153) 65753: Director Of Surgery/Techni herson ID = [id number] for PE RALES, CRESENCIO [id number] 01:51:00 Test Item Value Reference Range Interpretation Comments MAGNESIUM (BEAKER) (test code = 1.8 mg/dL 1.6-2.6 627) Director Of Surgery ID Bryant MONTOYA WBASIC METABOLIC [id number] 01:51:00 Test Item Value Reference Range Interpretation [...] APPLICABLE FOR DIALYSIS PATIEN TS. Director Of Surgery ID Bryant MONTOYA [id number] 01:42:00 Test Item Value Reference Range Interpretation [...] 0-0 (BEAKER) (test code = 413) POCT-GLUCOSE [id number] 21:29:00 Test Item Value Reference Range Interpretation Comments POC-GLUCOSE METER 222 mg/dL 70-110 H : TESTED A T [facility] 6720 (BEAKER) (test code = [facility], 1538) 95246: Director Of Surgery/Techni herson ID = [id number] for CRESENCIO BAH [id number] 19:59:00 Test Item Value Reference Range Interpretation Comments PARTIAL THROMBOPLASTIN TIME 76.3 seconds 22.5-36.0 H (BEAKER) (test code = 760) POCT-GLUCOSE [id number] 17:25:00 Test Item Value Reference Range Interpretation Comments POC-GLUCOSE METER 259 mg/dL 70-110 H : TESTED A T [facility] 6720 (BEAKER) (test code = [facility], 1538) 50765: Director Of Surgery/Techni herson ID = [id number] for HOMERO VALERIO RAD, FOOT, MIN 3 VIEWS, [id number] 15:46:00Reason for exam:->gangrene FINAL REPORT CLINICAL HISTORY: [...] Cortez MDReport Verified Date/Time: 12/01/2019 15:46:27Reading Location: [facility] Reading Room SARS-COV2/RT-PCR ([facility])2019-12-01 14:10:00 Test Item Value Reference Range Interpretation Comments SARS-COV2/RT-PCR (test Not Detected Not Detected, Negative code = 4215468) SARS-COV-2 PERFORMING LAB [facility] (test code = 3229157) Negative results do not preclude SARS-CoV-2 infection [...] of the Act.Fact Sheet for Healthcare Pro viders:https://www.Intervention Insights/Documents/Xpert%20Xpress%20SARS%20CoV-2/Fact%20Sh eets/758-2861%28KRJN-HGJ-9%20HEALTHCARE%20PROVIDERS%20FACT%20SHEET.pdfFact Sheet for Healthcare Patients:https://www.FlickIM.FlickIM/Documents/Xpert%20Xpress%20SARS%20CoV-2/Fact%20Sheets/302-5577%20SARS-COV -2%20PATIENT%20FACT%20SHEET.pdfPerforming Laboratory:[facility], [place] [id number] 12:34:00 Test Item Value Reference Range Interpretation Comments PARTIAL THROMBOPLASTIN TIME 47.2 seconds 22.5-36.0 H (BEAKER) (test code = 760) POCT-GLUCOSE [id number] 12:24:00 Test Item Value Reference Range Interpretation Comments POC-GLUCOSE METER 185 mg/dL 70-110 H : Notified RN/MD: (BEAKER) (test code = TESTED AT [facility] 2274 0194) [facility], [address]: Director Of Surgery/Techni herson ID = [id number] for HOMERO VALERIO COMPREHENSIVE METABOLIC [id number] 06:04:00 Test Item Value Reference Range Interpretation [...] APPLICABLE FOR DIALYSIS PATIEN TS. Director Of Surgery ID - PIAYA LC-REACTIVE [id number] 06:04:00 Test Item Value Reference Range Interpretation Comments C-REACTIVE PROTEIN (BEAKER) (test 13.79 mg/dL 0.00-0.50 H code = 676) Director Of Surgery ID - PIMICHI [id number] 05:28:00 Test Item Value Reference Range Interpretation Comments PARTIAL THROMBOPLASTIN TIME 35.0 seconds 22.5-36.0 (BEAKER) (test code = 760) 6 hours after starting heparin infusion and as indicated per sliding scaleAPTT 2019-12-01 05:27:00 Test Item Value Reference Range Interpretation Comments PARTIAL THROMBOPLASTIN TIME 33.8 seconds 22.5-36.0 (BEAKER) (test code = 760) Prior to initiating heparinPROTHROMBIN TIME/[id number] 05:26:00 Test Item Value Reference Range Interpretation [...] to initiating heparinCBC W/PLT COUNT & AUTO [id number] 05:12:00 Test Item Value Reference Range Interpretation [...] % 0-1 PERCENT (BEAKER) (test code = 8681)
--- NOTE | 2021-02-15 11:08 | RAD REPORT ---
EXAM DESCRIPTION: RAD - Ankle Right 3 View - 02/15/2021 11:00 am CLINICAL HISTORY: Right ankle pain FINDINGS: No fracture or dislocation is seen. A very large plantar calcaneal spur. Osteoporosis. Soft tissue swelling . Ankle joint space narrowing with subchondral sclerosis
--- NOTE | 2021-02-15 11:50 | RAD REPORT ---
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 No significant change in the appearance of the m etatarsals since October 2020. No gross bony destructive lesion is seen. Osteoporosis. No fracture or dislocation. If the patient has clinical symptoms to suggest osteomyelitis then MRI would be recommended
--- NOTE | 2021-02-15 12:14 | EDPHYS ---
Physician Documentation [facility] Name: Maria Isabel Stacy Age: 75 yrs Sex: Female : 1945 Arrival Date: 02/15/2021 Time: 09:32 Bed DX3 Private MD: ED Physician Imtiaz Pelayo HPI: 02/15 12:00 This 75 yrs old Female presents to ER via Ambulatory with complaints of Leg lizandro Pain. 12:00 The patient presents with decreased range of motion, an injury, pain, that is acute. lizandro The complaints affect the right ankle, lateral aspect of right foot, medial aspect of right foot, anterior aspect of right ankle and dorsum of right foot. Historical: - Allergies: 09:49 No Known Allergies; jl7 - Home Meds: 09:49 aspirin 81 mg Oral chew 1 tab once daily [Active]; gabapentin Oral [Active]; insulin jl7 [Active]; Metformin Oral [Active]; Metoprolol Tartrate Oral [Active]; aspirin 81 mg Oral cpDR [Active]; - PMHx: 09:49 Diabetes - IDDM; neuropathy; Hypertensive disorder; jl7 - Immunization history:: Adult Immunizations up to date, Client reports receiving the 2nd dose of the Covid vaccine, Date received: January 07, 2021 Carmen. - Social history:: Smoking status: Patient denies any tobacco usage or history of. ROS: 12:09 Constitutional: Negative for fever, chills, and weight loss, Eyes: Negative for injury, lizandro pain, redness, and discharge, ENT: Negative for injury, pain, and discharge, Neck: Negative for injury, pain, and swelling, Cardiovascular: Negative for chest pain, palpitations, and edema, Respiratory: Negative for shortness of breath, cough, wheezing, and pleuritic chest pain, Abdomen/GI: Negative for abdominal pain, nausea, vomiting, diarrhea, and constipation, Back: Negative for injury and pain, : Negative for injury, bleeding, discharge, and swelling, Neuro: Negative for headache, weakness, numbness, tingling, and seizure, Psych: Negative for depression, anxiety, suicide ideation, homicidal ideation, and hallucinations, Allergy/Immunology: Negative for hives, rash, and allergies, Endocrine: Negative for neck swelling, polydipsia, polyuria, polyphagia, and marked weight changes, Hematologic/Lymphatic: Negative for swollen nodes, abnormal bleeding, and unusual bruising. 12:09 MS/extremity: Positive for pain, swelling. 12:09 Skin: Positive for of the ball of right foot. Exam: 12:09 Constitutional: This is a well developed, well nourished patient who is awake, alert, lizandro and in no acute distress. Head/Face: Normocephalic, atraumatic. Eyes: Pupils equal round and reactive to light, extra-ocular motions intact. Lids and lashes normal. Conjunctiva and sclera are non-icteric and not injected. Cornea within normal limits. Periorbital areas with no swelling, redness, or edema. ENT: Nares patent. No nasal discharge, no septal abnormalities noted. Tympanic membranes are normal and external auditory canals are clear. Oropharynx with no redness, swelling, or masses, exudates, or evidence of obstruction, uvula midline. Mucous membranes moist. Neck: Trachea midline, no thyromegaly or masses palpated, and no cervical lymphadenopathy. Supple, full range of motion without nuchal rigidity, or vertebral point tenderness. No Meningismus. Chest/axilla: Normal chest wall appearance and motion. Nontender with no deformity. No lesions are appreciated. Cardiovascular: Regular rate and rhythm with a normal S1 and S2. No gallops, murmurs, or rubs. Normal PMI, no JVD. No pulse deficits. Respiratory: Lungs have equal breath sounds bilaterally, clear to auscultation and percussion. No rales, rhonchi or wheezes noted. No increased work of breathing, no retractions or nasal flaring. Abdomen/GI: Soft, non-tender, with normal bowel sounds. No distension or tympany. No guarding or rebound. No evidence of tenderness throughout. Back: No spinal tenderness. No costovertebral tenderness. Full range of motion. Neuro: Awake and alert, GCS 15, oriented to person, place, time, and situation. Cranial nerves II-XII grossly intact. Motor strength 5/5 in all extremities. Sensory grossly intact. Cerebellar exam normal. Normal gait. Psych: Awake, alert, with orientation to person, place and time. Behavior, mood, and affect are within normal limits. 12:09 Musculoskeletal/extremity: ROM: full active range of motion, full passive range of motion, Circulation is intact in all extremities. Sensation intact. DVT Exam: negative Homans' sign noted on exam, no appreciated bluish discoloration, no erythema, no increased warmth, pain, swelling, tenderness. Vital Signs: 09:46 BP 168 / 72; Pulse 70; Resp 17; Temp 97.4; Pulse Ox 98% ; Weight 66.68 kg; Height 5 ft. jl7 4 in. (162.56 cm); Pain 03/27; 09:46 Body Mass Index 25.23 (66.68 kg, 162.56 cm) jl7 MDM: 10:32 Patient medically screened. lizandro 02/15 10:32 Order name: Foot Right 3 View XRAY; Complete Time: 11:59 lizandro 02/15 10:32 Order name: Ankle Right 3 View XRAY; Complete Time: 11:59 lizandro Administered Medications: 12:42 Drug: Doxycycline 200 mg Route: PO; aa5 12:44 Follow up: Response: Medication administered at discharge. aa5 12:43 Drug: Bactrim (trimethoprim-sulfamethoxazole) (160 mg-800 mg (DS) 1 tablet Route: PO; aa5 12:44 Follow up: Response: Medication administered at discharge. aa5 12:43 Drug: Silvadene (silver sulfADIAZINE) Cream 1 % 1 application {Note: wound to right aa5 foot.} Route: Topical; Site: wound; 12:44 Follow up: Response: Medication administered at discharge. aa5 Disposition Summary: 02/15/21 12:14 Discharge Ordered Location: Home lizandro Problem: new lizandro Symptoms: have improved lizandro Condition: Stable lizandro Diagnosis - Type 1 diabetes mellitus with hyperglycemia lizandro - Sprain of foot lizandro - Sprain of ankle lizandro - Other specified diabetes mellitus with foot ulcer lizandro Followup: lizandro - With: Private Physician - When: 2 - 3 days - Reason: Recheck today's complaints, Continuance of care, Re-evaluation by your physician Followup: lizandro - With: Carson Mensah MD - When: 2 - 3 days - Reason: Recheck today's complaints, Continuance of care, Re-evaluation by your physician Discharge Instructions: - Discharge Summary Sheet lizandro - Blisters, Adult lizandro - Type 1 Diabetes Mellitus, Diagnosis, Adult lizandro - Diabetes Mellitus and Foot Care lizandro - Hyperglycemia lizandro Forms: - Medication Reconciliation Form lizandro - Thank You Letter lizandro - Antibiotic Education lizandro - Prescription Opioid Use lizandro Prescriptions: - Doxycycline Hyclate 100 mg Oral Tablet - take 1 tablet by ORAL route every 12 hours; 20 tablet; Refills: 0, Product [facility] Selection Permitted - Silvadene 1 % Topical Cream - Apply to affected area 1 application by TOPICAL route every 12 hours; 50 gram; [facility] Refills: 0, Product Selection Permitted - Bactrim DS 800-160 mg Oral Tablet - take 1 tablet by ORAL route every 12 hours for 10 days; 20 tablet; Refills: 0, [facility] Product Selection Permitted Signatures: Dispatcher [employer] Imtiaz Jamison MD MD cha Calderon, Audri RN RN aa5 Ar Case RN RN jl7 Corrections: (The following items were deleted from the chart) 11:06 10:32 Ice pack ordered. lizandro aa5
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
[2021-02-15] MEDS ORDERED: SMZ./TMP. 800/160 MG TABLET ONE (12:47)
[2021-02-15] MEDS ORDERED: DOXYCYCLINE 100 MG CAP PO ONE (12:47)
[2021-02-15] MEDS ORDERED: SILVER SULFADIAZINE 1% 25 GM TOP ONE (12:47)
[2021-02-15 13:02] VITALS: BP 168/72; TEMP 97.4; O2SAT 98
== END 2021-02-15 12:49 | disposition home or self-care (01) ==
LOC: ER 09:31
DX: S93.601A Unspecified sprain of right foot, initial encounter (principal); S93.401A Sprain of unspecified ligament of right ankle, initial encounter; E10.621 Type 1 diabetes mellitus with foot ulcer; E10.65 Type 1 diabetes mellitus with hyperglycemia; I10 Essential (primary) hypertension; Z79.82 Long term (current) use of aspirin
CPT/HCPCS: 99283

== ENCOUNTER 2021-08-02 10:31 | Emergency (ER) | payer OTHER ==
--- OUTSIDE RECORDS SUMMARY | 2021-08-02 10:40 | XMS REPORT | Continuity of Care Document ---
:1945 Author Organization [facility] t Address [address] [place] [address] Care Team Providers Name Role Phone Bo RIGGS Primary Care Physician Unavailable MECCA BENITO Attending Clinician Unavailable BALTA STOVALL Attending Clinician Unavailable ELO ALEJO Attending Clinician Unavailable Lucretia MERCEDES Attending Clinician Unavailable Smita Grace Attending Clinician Doctor Unassigned, Name Attending Clinician Unavailable Bo Riggs MD Attending Clinician Balta Stovall DPM Attending Clinician Lionel Franco MD Attending Clinician Bo RIGGS Attending Clinician Unavailable Balta Stovall DPM Attending Clinician Arias Gimenez MD Attending Clinician Narendra KIM Attending Clinician Waldo KIM Attending Clinician JOSE Attending Clinician Unavailable LINDEN RAYMOND Attending Clinician Unavailable Braulio WALTON Attending Clinician Unavailable Jacob VALERA Attending Clinician Unavailable ERAN Attending Clinician Unavailable MECCA BENITO Admitting Clinician Unavailable BALTA STOVALL Admitting Clinician Unavailable ELO ALEJO Admitting Clinician Unavailable SUTRIN, S Admitting Clinician Unavailable DONNYA Admitting Clinician Unavailable JUNE, OSIRIS Admitting Clinician Unavailable ISABELLE, Barulio Admitting Clinician Unavailable Jacob VALERA Admitting Clinician Unavailable Payers Payer Name Policy Type Policy Number Effective Date Expiration Date Lucretia BRAN/[facility] DUAL [id number] 2020 COMP HMO D SNP 00:00:00 MEDICAID [facility] [id number] 2019 00:00:00 UNITED MEDICARE [id number] 2017 HMO 00:00:00 CDC REVIEW [id number] 2019 00:00:00 MEDICAID OF [place] [id number] 2018 00:00:00 Problems Condition Condition Condition Status Onset Resolution Last Treating Co mments Source Name Details Category Date Date Treatment Clinician Date S/P 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[facility] transmetat transmetat -10 Co llege arsal arsal 00:00: of amputation amputation 00 Me dicin of foot, of foot, e right right (HCCode) (HCCode) Post-opera Post-opera Disease Active [facility] tive [facility] -10 Co llege 00:00: of 00 Medicin e Encounter Encounter Disease Active [facility] for post for post 02-25 Colleg e surgical surgical 00:00: of wound wound 00 Medicin check check e PAD PAD Disease Active [facility] (periphera (periphera 9-10 Co llege l artery l artery 00:00: of disease) disease) 00 Medici n (HCCode) (HCCode) e 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 diabetes 9-10 Colleg e mellitus mellitus 00:00: of with with 00 Medicin diabetic 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, with y, with long-term long-term current current use of use of insulin insulin (HCCode) (HCCode) PAD PAD Disease Active [facility] (periphera (periphera 9-10 Co llege l artery l artery 00:00: of disease) disease) 00 Medici n (HCCode) (HCCode) e 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 diabetes 02-25 Colleg e mellitus mellitus 00:00: of with with 00 Medicin diabetic 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, with y, with long-term long-term current current use of use of insulin insulin (HCCode) (HCCode) Post-opera Post-opera Disease Active 2020-[address] tive state tive state 8- [facility] - 00:[facility]: Medical 00 Center Surgical Surgical Disease [facility] 825 [facility] - skin or skin or 00:00: Medical subcutaneo subcutaneo 00 Ce nter us tissue us tissue Status Status Disease Active [facility] post 7 [facility] - amputation amputation 00:00: Me dical of foot of foot 00 Center through through metatarsal metatarsal bone bone Impaired Impaired Disease Active 2019[facility] mobility mobility 7 [facility] - and and 00:00: Medical activities activities 00 Ce nter of daily of daily living living Uncontroll Uncontroll Disease Active 2019-[address] ed type 2 ed type 2 12-17 [facility] - diabetes diabetes 00:00: Medica l mellitus mellitus 00 Center with with hyperglyce hyperglyce radha radha Post-opera Post-opera Disease Active 2019-[address] tive pain tive pain 7- [facility] - 00:[facility]: Medical 00 Center Anemia Anemia Disease Active [facility] 12[facility] - 00:[facility] Medical [facility] Center Thrombocyt Thrombocyt Disease Active 2019-[address] osis osis 12-17 [facility] - 00:[facility] Medical [facility] Center 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 6-15 [facility] - right foot right foot 00:00: Me dical 00 Center Allergies, Adverse Reactions, Alerts Allergy Allergy Status Severity Reaction(s) Onset Inactive Treating Comm ents Source Name Type Date Date Clinician NO KNOWN Allergy Active [facility] ALLERGIE S NO KNOWN Drug Active [facility] ALLERGIE Class ity of S [facility] Family History Family Member Diagnosis Comments Start Date Stop Date Source Natural father Diabetes type II [facility] Social History Social Habit Start Date Stop Date Quantity Comments Source History [facility] Alcohol Std Drinks of Med icine History [facility] Alcohol Binge of Medicine Tobacco use and 2020-06-08 2020-06-08 Never used [place] [employer] [facility] exposure 00:00:00 00:00:00 of Medicine Alcohol intake 2020-06-08 2020-06-08 Lif[facility] 00:00:00 00:00:00 non-drinker of Medicine (finding) History SDOH 2020-01-21 2020-01-21 1 [facility] Alcohol Frequency 00:00:00 00:00:00 of Medi cine Sex [birth year] [facility] Co llege 00:00:00 00:00:00 of Medicine Smoking Status Start Date Stop Date Source Never smoker [facility] o f Medicine Medications Ordered Filled Start Stop Current Ordering Indication Dosage Frequency Signature Comments Components Source Medication Medication Date Date Medication? Clinician (SIG) Name Name Metformin 2019-06 Yes Take by [facility] HCl 500 2-21 mouth. College MG/5ML SOLN 20:33: of 00 Medicin e metformin 2019-06 Yes 1000mg Take 1 Tab [facility] (GLUCOPHAGE 0-19 by mouth [facility] ) 1000 MG 00:00: two times of tablet 00 daily. Medicin e insulin 2019-06 Yes 7U Inject 7 [facility] glargine 0-19 Units into Colle ge (LANTUS) 00:00: the skin of 100 UNIT/ML 00 nightly. Medi milagro injection e insulin 2019-06 Yes 7U Inject 7 [facility] glargine 0-19 Units into Colle ge (LANTUS) 00:00: the skin of 100 UNIT/ML 00 nightly. Medi milagro injection e metformin 2019-06 2020- No 1000mg Take 1 Tab [facility] (GLUCOPHAGE 0-19 12-21 by mouth Col [facility]ge ) 1000 MG 00:00: 00:00 two times of tablet 00 :00 daily. Medicin e gabapentin 2019- 2020- No 300mg Take 1 Cap [facility] (NEURONTIN) 02-18 by mouth 3 C [facility]lege 300 MG 00:00: 05:59 times of capsule 00 :00 daily for Medicin 60 days. e gabapentin 2019- 2020- No 300mg Take 1 Cap [facility] (NEURONTIN) 02-18 by mouth 3 C [facility]lege 300 MG 00:00: 05:59 times of capsule 00 :00 daily for Medicin 60 days. e gabapentin 2020-0 2020- No 300mg Take 1 Cap [facility] (NEURONTIN) 02-18 by mouth 3 C [facility]lege 300 MG 00:00: 05:59 times of capsule 00 :00 daily for Medicin 60 days. e gabapentin 2020- No 300mg Take 1 Cap [facility] (NEURONTIN) 02-18 by mouth 3 C [facility]lege 300 MG 00:00: 05:59 times of capsule 00 :00 daily for Medicin 60 days. e Missing or Yes . [facility] Non-Formula 02-16 [facility] - ry 17:17: Medical Medication 54 Center lisinopril 2020- No 5mg Take 5 mg [facility] (PRINIVIL, 02-16 by mouth. Col lege ZESTRIL) 5 00:00: 04:59 of MG tablet 00 :00 Medicin e ferrous 2020- No 325mg Take 325 [facility] sulfate 325 02-16 mg by Colleg e (65 Fe) MG 00:00: 04:59 mouth. of tablet 00 :00 Medicin e lisinopril 2020- No 5mg Take 5 mg [facility] (PRINIVIL, 02-16 by mouth. Col lege ZESTRIL) 5 00:00: 04:59 of MG tablet 00 :00 Medicin e ferrous 2020- No 325mg Take 325 [facility] sulfate 325 02-16 mg by Colleg e (65 Fe) MG 00:00: 04:59 mouth. of tablet 00 :00 Medicin e lisinopril 2020- No 5mg Take 5 mg [facility] (PRINIVIL, 02-16 by mouth. Col lege ZESTRIL) 5 00:00: 04:59 of MG tablet 00 :00 Medicin e ferrous 2020- No 325mg Take 325 [facility] sulfate 325 02-16 mg by Colleg e (65 Fe) MG 00:00: 04:59 mouth. of tablet 00 :00 Medicin e lisinopril 2020- No 5mg Take 5 mg [facility] (PRINIVIL, 02-16 by mouth. Col lege ZESTRIL) 5 00:00: 04:59 of MG tablet 00 :00 Medicin e ferrous 2019-0 2020- No 325mg Take 325 [facility] sulfate 325 02-16 mg by Colleg e (65 Fe) MG 00:00: 04:59 mouth. of tablet 00 :00 Medicin e lisinopril 2020- No 5mg Take 5 mg [facility] (PRINIVIL, 02-16 by mouth. Col lege ZESTRIL) 5 00:00: 04:59 of MG tablet 00 :00 Medicin e ferrous 2020- No 325mg Take 325 [facility] sulfate 325 02-16 mg by Colleg e (65 Fe) MG 00:00: 04:59 mouth. of tablet 00 :00 Medicin e lisinopriL 2020- No 5mg QD Take [address] [facility] (PRINIVIL,Z 02-16 tablet (5 [facility] - ESTRIL) 5 00:00: 23:59 mg total) Me dical MG tablet 00 :00 by mouth Center daily. ferrous 2020- No 325mg QD Take [address] [facility] sulfate 325 02-16 tablet [facility] - (65 FE) MG 00:00: 23:59 (325 mg Med ical tablet 00 :00 total) by Center mouth daily. sodium 2020-0 Yes 1{appli QD Apply 1 [facility] hypochlorit 8-12 cation} applicatio [facility] - e (DAKIN'S 00:00: n Medical SOLUTION) 00 topically Cente r 0.25 % daily. external solution sodium 2020-0 Yes Apply to [facility] hypochlorit 8-12 affected [facility] e external 00:00: area daily o f solution 00 Medicin e amoxicillin 2020-0 Yes 1{tbl} Take 1 Tab [facility] -clavulanat 8-12 by mouth [facility] e 00:00: two times of (AUGMENTIN) 00 daily. Medici n 500-125 MG e per tablet amoxicillin 2020-0 Yes 1{tbl} Take 1 Tab [facility] -clavulanat 8-12 by mouth [facility] e 00:00: two times of (AUGMENTIN) 00 daily. Medici n 500-125 MG e per tablet sodium 2020-0 Yes Apply to [facility] hypochlorit 8-12 affected [facility] e external 00:00: area daily o f solution 00 Medicin e amoxicillin 2020-0 Yes 1{tbl} Take 1 Tab [facility] -clavulanat 8-12 by mouth [facility] e 00:00: two times of (AUGMENTIN) 00 daily. Medici n 500-125 MG e per tablet amoxicillin 2020-0 2020- No 1{tbl} Take 1 Tab [facility] -clavulanat 8-12 10-19 by mouth Col lege e 00:00: 00:00 two times of (AUGMENTIN) 00 :00 daily. Medici n 500-125 MG e per tablet sodium 2020-0 2020- No Apply to [facility] hypochlorit 8- affected Col [facility]ge e external 00:00: 00:00 area daily of solution 00 :00 Medicin e gabapentin 2020-0 2020- No 300mg Take 1 Cap [facility] (NEURONTIN) 8-05 10-05 by mouth 3 C [facility] 300 MG 00:00: 04:59 times of capsule 00 :00 daily for Medicin 60 days. e gabapentin 2020-0 2020- No 300mg Take 1 Cap [facility] (NEURONTIN) 8-05 10-05 by mouth 3 C [facility]lege 300 MG 00:00: 04:59 times of capsule 00 :00 daily for Medicin 60 days. e ACCU-CHEK 2020-0 Yes [facility] 7-20 [facility] 00:00: of 00 Medicin e ACCU-CHEK 2020-0 Yes [place] [id number] [facility] 00:00: of 00 Medicin e ACCU-CHEK 2020-0 Yes [facility] 7-20 [facility] 00:00: of 00 Medicin e ACCU-CHEK 2020-0 Yes [facility] 7-20 [facility] 00:00: of 00 Medicin e ACCU-CHEK 2020-0 Yes [facility] 7-20 [facility] 00:00: of 00 Medicin e ACCU-CHEK 2020-0 Yes [facility] 7-20 [facility] 00:00: of 00 Medicin e ACCU-CHEK 2020-0 Yes [facility] 7-20 [facility] 00:00: of 00 Medicin e aspirin 81 2020-0 Yes 81mg QD Take 1 [facility] MG chewable 7-15 tablet (81 [facility] - tablet 00:00: mg total) Medica l 00 by mouth Center daily. BRILINTA 90 2020-0 Yes TK 1 T PO [facility] MG TABS 7-15 BID [facility] 00:00: of 00 Medicin e BRILINTA 90 2020-0 Yes TK 1 T PO [facility] MG TABS 7-15 BID [facility] 00:00: of 00 Medicin e BRILINTA 90 2020-0 Yes TK 1 T PO [facility] MG TABS 7-15 BID [facility] 00:00: of 00 Medicin e BRILINTA 90 2020-0 Yes TK 1 T PO [facility] MG TABS 7-15 BID [facility] 00:00: of 00 Medicin e BRILINTA 90 2020-0 Yes TK 1 T PO [facility] MG TABS 7-15 BID [facility] 00:00: of 00 Medicin e BRILINTA 90 2020-0 Yes TK 1 T PO [facility] MG TABS 7-15 BID [facility] 00:00: of 00 Medicin e BRILINTA 90 2020-0 Yes TK 1 T PO [facility] MG TABS 7-15 BID [facility] 00:00: of 00 Medicin e zinc 2020-0 2020- No 220mg Take 220 [facility] sulfate 7-15 09-14 mg by [facility] (ZINCATE) 00:00: 04:59 mouth. of 220 (50 Zn) 00 :00 Medicin MG capsule e zinc 2020-0 2020- No 220mg Take 220 [facility] sulfate 7-15 09-14 mg by [facility] (ZINCATE) 00:00: 04:59 mouth. of 220 (50 Zn) 00 :00 Medicin MG capsule e zinc 2020-0 2020- No 220mg Take 220 [facility] sulfate 7-15 09-14 mg by [facility] (ZINCATE) 00:00: 04:59 mouth. of 220 (50 Zn) 00 :00 Medicin MG capsule e multivitami 2020-0 2020- No 1{tbl} QD Take [address] n 7-15 - tablet by [facility] - (THERAGRAN) 00:00: 23:59 [...] as directed . atorvastati 2020-0 Yes 80mg Take 80 mg [facility] n (LIPITOR) 7-14 by mouth. Col lege 80 MG 00:00: of tablet 00 Medicin e docusate 2020-0 Yes 100mg Take 100 [facility] sodium 7-14 mg by [facility] (COLACE) 00:00: mouth. of 100 MG 00 Medicin capsule e insulin 2020-0 Yes 7U Inject 7 [facility] glargine 7-14 Units into Colle ge (LANTUS) 00:00: the skin. of 100 UNIT/ML 00 Medicin injection e atorvastati 2020-0 Yes 80mg Take 80 mg [facility] n (LIPITOR) 7-14 by mouth. Col lege 80 MG 00:00: of tablet 00 Medicin e docusate 2020-0 Yes 100mg Take 100 [facility] sodium 7-14 mg by [facility] (COLACE) 00:00: mouth. of 100 MG 00 Medicin capsule e atorvastati 2020-0 Yes 80mg Take 80 mg [facility] n (LIPITOR) 7-14 by mouth. Col lege 80 MG 00:00: of tablet 00 Medicin e docusate 2020-0 Yes 100mg Take 100 [facility] sodium 7-14 mg by College (COLACE) 00:00: mouth. of 100 MG 00 Medicin capsule e insulin 2020-0 Yes 7U Inject 7 [facility] glargine 7-14 Units into Colle ge (LANTUS) 00:00: the skin. of 100 UNIT/ML 00 Medicin injection e insulin 2020-0 Yes 7U Inject 7 [facility] glargine 7-14 Units into Colle ge (LANTUS) 00:00: the skin. of 100 UNIT/ML 00 Medicin injection e atorvastati 2020-0 Yes 80mg Take 80 mg [facility] n (LIPITOR) 7-14 by mouth. Col lege 80 MG 00:00: of tablet 00 Medicin e docusate 2020-0 Yes 100mg Take 100 [facility] sodium 7-14 mg by College (COLACE) 00:00: mouth. of 100 MG 00 Medicin capsule e atorvastati 2020-0 Yes 80mg Take 80 mg [facility] n (LIPITOR) 7-14 by mouth. Col lege 80 MG 00:00: of tablet 00 Medicin e docusate 2020-0 Yes 100mg Take 100 [facility] sodium 7-14 mg by College (COLACE) 00:00: mouth. of 100 MG 00 Medicin capsule e atorvastati 2020-0 Yes 80mg Take 80 mg [facility] n (LIPITOR) 7-14 by mouth. Col lege 80 MG 00:00: of tablet 00 Medicin e docusate 2020-0 Yes 100mg Take 100 [facility] sodium 7-14 mg by College (COLACE) 00:00: mouth. of 100 MG 00 Medicin capsule e atorvastati 2020-0 Yes 80mg Take 80 mg [facility] n (LIPITOR) 7-14 by mouth. Col lege 80 MG 00:00: of tablet 00 Medicin e docusate 2020-0 Yes 100mg Take 100 [facility] sodium 7-14 mg by College (COLACE) 00:00: mouth. of 100 MG 00 Medicin capsule e insulin 2020-0 Yes 7U Inject 7 [facility] glargine 7-14 Units into Colle ge (LANTUS) 00:00: the skin. of 100 UNIT/ML 00 Medicin injection e insulin 2020-0 2020- No 7U Inject 7 [facility] glargine 7-14 10-19 Units into [facility] (LANTUS) 00:00: 00:00 the skin. of 100 UNIT/ML 00 :00 Medicin injection e insulin 2020-0 2020- No 7U Inject 7 [facility] glargine 7-14 10-19 Units into [facility] (LANTUS) 00:00: 00:00 the skin. of 100 UNIT/ML 00 :00 Medicin injection e Melatonin 3 2019-0 2020- No 3mg Take 3 mg [facility] MG TABS 12-29 by mouth. Colleg e 00:00: 04:59 of 00 :00 Medicin e Ticagrelor 2020-0 2020- No 90mg Take 90 mg [facility] 90 MG TABS 14 02-28 by mouth. Col lege 00:00: 04:59 of 00 :00 Medicin e Melatonin 3 2019-0 2020- No 3mg Take 3 mg [facility] MG TABS 14 02-28 by mouth. Colleg e 00:00: 04:59 of 00 :00 Medicin e Ticagrelor 2020-0 2020- No 90mg Take 90 mg [facility] 90 MG TABS 14 02-28 by mouth. Col lege 00:00: 04:59 of 00 :00 Medicin e Melatonin 3 2019-0 2020- No 3mg Take 3 mg [facility] MG TABS 12-29 by mouth. Colleg e 00:00: 04:59 of 00 :00 Medicin e Ticagrelor 2019-0 2020- No 90mg Take 90 mg [facility] 90 MG TABS 12-29 by mouth. Col lege 00:00: 04:59 of 00 :00 Medicin e ascorbic 2019-0 2019- No 500mg Q.5D Take 1 [facility] acid, 12-29 tablet [facility] - vitamin C, 00:00: 23:59 (500 mg Med ical (VITAMIN C) 00 :00 total) by [facility] 500 MG mouth 2 tablet (two) times daily for 60 days. gabapentin 2019-2019- No 300mg [id number] Take [address] [facility] (NEURONTIN) 12-29 [id number] capsule [facility] - 300 MG 00:00: 23:59 3D (300 mg Medical capsule 00 :00 total) by Center mouth 3 (three) times daily for 60 days. melatonin 3 2020- No 3mg QD Take 1 [facility] [...] Q.5D Take [address] [facility] (BRILINTA) 12-29 09-12 tablet (90 [facility] - 90 mg Tab 00:00: 23:59 mg total) Me dical tablet 00 :00 by mouth 2 Center (two) times daily for 60 days. gabapentin 2019- No 300mg Take 300 [facility] (NEURONTIN) 12-29 08-05 mg by Colleg e 300 MG 00:00: 00:00 mouth. of capsule 00 :00 Medicin e collagenase Yes 1{appli QD Apply [address] [facility] [facility] (SANTYL) 5-21 cation} applicatio [facility] - 250 units/g 00:00: n Medica l ointment 00 topically Center daily Apply kannan thick amount to wound daily. SANTYL 250 Yes JENNIFER KANNAN [facility] UNIT/GM 5-21 THICK College ointment 00:00: AMOUNT TO of 00 WOUND QD Medicin UTD e SANTYL 250 2019-0 Yes JENNIFER KANNAN [facility] UNIT/GM 5-21 THICK College ointment 00:00: AMOUNT TO of 00 WOUND QD Medicin UTD e SANTYL 250 2019-0 Yes JENNIFER KANNAN [facility] UNIT/GM 5-21 THICK College ointment 00:00: AMOUNT TO of 00 WOUND QD Medicin UTD e SANTYL 250 2019-0 Yes JENNIFER KANNAN [facility] UNIT/GM 5-21 THICK College ointment 00:00: AMOUNT TO of 00 WOUND QD Medicin UTD e SANTYL 250 2019-0 Yes JENNIFER KANNAN [facility] UNIT/GM 5-21 THICK College ointment 00:00: AMOUNT TO of 00 WOUND QD Medicin UTD e SANTYL 250 2019-0 Yes JENNIFER KANNAN [facility] UNIT/GM 5-21 THICK College ointment 00:00: AMOUNT TO of 00 WOUND QD Medicin UTD e SANTYL 250 2019-0 Yes JENNIFER KANNAN [facility] UNIT/GM 5-21 THICK College ointment 00:00: AMOUNT TO of 00 WOUND QD Medicin UTD e traMADoL 2019- Yes 1{tbl} Take 1 [facility] (ULTRAM) 50 5-18 tablet by Mery es - mg tablet 00:00: mouth Medical 00 every 6 Center (six) hours as needed for Pain. tramadol 2020-0 Yes TK 1 T PO [facility] (ULTRAM) 50 5-18 Q 6 H Colle ge MG tablet 00:00: PRN P of 00 Medicin e tramadol 2020-0 Yes TK 1 T PO [facility] (ULTRAM) 50 5-18 Q 6 H Colle ge MG tablet 00:00: PRN P of 00 Medicin e tramadol 2020-0 Yes TK 1 T PO [facility] (ULTRAM) 50 5-18 Q 6 H Colle ge MG tablet 00:00: PRN P of 00 Medicin e tramadol 2020-0 Yes TK 1 T PO [facility] (ULTRAM) 50 5-18 Q 6 H Colle ge MG tablet 00:00: PRN P of 00 Medicin e tramadol 2020-0 2020- No TK 1 T PO [place] (ULTRAM) 50 5-18 10-19 Q 6 H [facility] MG tablet 00:00: 00:00 PRN P of 00 :00 Medicin e clopidogreL 2020-0 Yes 75mg QD Take 75 [...] SINGLES) 00 daily. Center 3.4 gram packet clopidogrel 2020-0 Yes 75mg Take 75 mg [facility] (PLAVIX) 75 5-06 by mouth. Col lege MG Tablet 00:00: of 00 Medicin e pantoprazol 2020-0 Yes 40mg Take 40 mg [facility] e 5-06 by mouth. College (PROTONIX) 00:00: of 40 MG 00 Medicin tablet e polyethylen 2020-0 Yes 17g Take 17 g [facility] e glycol 5-06 by mouth. Colleg e (GLYCOLAX) 00:00: of 17 g packet 00 Medicin e Psyllium 2020-0 Yes 1{packe Take 1 [facility] (METAMUCIL 5-06 t} Packet by [facility] FIBER) 51.7 00:00: mouth. of % PACK 00 Medicin e clopidogrel 2020-0 Yes 75mg Take 75 mg [facility] (PLAVIX) 75 5-06 by mouth. Col lege MG Tablet 00:00: of 00 Medicin e clopidogrel 2020-0 Yes 75mg Take 75 mg [facility] (PLAVIX) 75 5-06 by mouth. Col lege MG Tablet 00:00: of 00 Medicin e pantoprazol 2020-0 Yes 40mg Take 40 mg [facility] e 5-06 by mouth. [facility] (PROTONIX) 00:00: of 40 MG 00 Medicin tablet e polyethylen 2020-0 Yes 17g Take 17 g [facility] e glycol 5-06 by mouth. Colleg e (GLYCOLAX) 00:00: of 17 g packet 00 Medicin e Psyllium 2020-0 Yes 1{packe Take 1 [facility] (METAMUCIL 5-06 t} Packet by [facility] FIBER) 51.7 00:00: mouth. of % PACK 00 Medicin e clopidogrel 2020-0 Yes 75mg Take 75 mg [facility] (PLAVIX) 75 5-06 by mouth. Col lege MG Tablet 00:00: of 00 Medicin e pantoprazol 2020-0 Yes 40mg Take 40 mg [facility] e 5-06 by mouth. [facility] (PROTONIX) 00:00: of 40 MG 00 Medicin tablet e polyethylen 2020-0 Yes 17g Take 17 g [facility] e glycol 5-06 by mouth. Colleg e (GLYCOLAX) 00:00: of 17 g packet 00 Medicin e Psyllium 2020-0 Yes 1{packe Take 1 [facility] (METAMUCIL 5-06 t} Packet by [facility] FIBER) 51.7 00:00: mouth. of % PACK 00 Medicin e pantoprazol 2020-0 Yes 40mg Take 40 mg [facility] e 5-06 by mouth. [facility] (PROTONIX) 00:00: of 40 MG 00 Medicin tablet e polyethylen 2020-0 Yes 17g Take 17 g [facility] e glycol 5-06 by mouth. Colleg e (GLYCOLAX) 00:00: of 17 g packet 00 Medicin e clopidogrel 2020-0 Yes 75mg Take 75 mg [facility] (PLAVIX) 75 5-06 by mouth. Col lege MG Tablet 00:00: of 00 Medicin e Psyllium 2020-0 Yes 1{packe Take 1 [facility] (METAMUCIL 5-06 t} Packet by [facility] FIBER) 51.7 00:00: mouth. of % PACK 00 Medicin e pantoprazol 2020-0 Yes 40mg Take 40 mg [facility] e 5-06 by mouth. [facility] (PROTONIX) 00:00: of 40 MG 00 Medicin tablet e polyethylen 2020-0 Yes 17g Take 17 g [facility] e glycol 5-06 by mouth. Colleg e (GLYCOLAX) 00:00: of 17 g packet 00 Medicin e Psyllium 2020-0 Yes 1{packe Take 1 [facility] (METAMUCIL 5-06 t} Packet by [facility] FIBER) 51.7 00:00: mouth. of % PACK 00 Medicin e clopidogrel 2020-0 Yes 75mg Take 75 mg [facility] (PLAVIX) 75 5-06 by mouth. Col lege MG Tablet 00:00: of 00 Medicin e pantoprazol 2020-0 Yes 40mg Take 40 mg [facility] e 5-06 by mouth. [facility] (PROTONIX) 00:00: of 40 MG 00 Medicin tablet e polyethylen 2020-0 Yes 17g Take 17 g [facility] e glycol 5-06 by mouth. Colleg e (GLYCOLAX) 00:00: of 17 g packet 00 Medicin e Psyllium 2020-0 Yes 1{packe Take 1 [facility] (METAMUCIL 5-06 t} Packet by [facility] FIBER) 51.7 00:00: mouth. of % PACK 00 Medicin e clopidogrel 2020-0 Yes 75mg Take 75 mg [facility] (PLAVIX) 75 5-06 by mouth. Col lege MG Tablet 00:00: of 00 Medicin e pantoprazol 2020-0 Yes 40mg Take 40 mg [facility] e 5-06 by mouth. [facility] (PROTONIX) 00:00: of 40 MG 00 Medicin tablet e polyethylen 2020-0 Yes 17g Take 17 g [facility] e glycol 5-06 by mouth. Colleg e (GLYCOLAX) 00:00: of 17 g packet 00 Medicin e Psyllium 2020-0 Yes 1{packe Take 1 [facility] (METAMUCIL 5-06 t} Packet by T[facility]et bacablanca MANA) 51.7 00:00: mouth. of % PACK 00 Medicin e glipiZIDE 2020-0 Yes 10mg QD Take 10 [...] tablet hours as needed for Pain. aspirin EC 2020-0 Yes 81mg Take 81 mg [facility] 81 MG 5-05 by mouth. College tablet 00:00: of 00 Medicin e glipiZIDE 2020-0 Yes 10mg Take 10 mg [facility] (GLUCOTROL) 5-05 by mouth. Col lege 10 MG CR 00:00: of tablet 00 Medicin e aspirin EC 2020-0 Yes 81mg Take 81 mg [facility] 81 MG 5-05 by mouth. College tablet 00:00: of 00 Medicin e hydrocodone 2020-0 Yes 1{tbl} Take 1 Tab [facility] -acetaminop 5-05 by mouth. Col lege hen (NORCO) 00:00: of 5-325 mg 00 Medicin tablet e aspirin EC 2020-0 Yes 81mg Take 81 mg [facility] 81 MG 5-05 by mouth. College tablet 00:00: of 00 Medicin e glipiZIDE 2020-0 Yes 10mg Take 10 mg [facility] (GLUCOTROL) 5-05 by mouth. Col lege 10 MG CR 00:00: of tablet 00 Medicin e hydrocodone 2020-0 Yes 1{tbl} Take 1 Tab [facility] -acetaminop 5-05 by mouth. Col lege hen (NORCO) 00:00: of 5-325 mg 00 Medicin tablet e glipiZIDE 2020-0 Yes 10mg Take 10 mg [facility] (GLUCOTROL) 5-05 by mouth. Col lege 10 MG CR 00:00: of tablet 00 Medicin e hydrocodone 2020-0 Yes 1{tbl} Take 1 Tab [facility] -acetaminop 5-05 by mouth. Col lege hen (Therapeutic Systems) 00:00: of 5-325 mg 00 Medicin tablet e aspirin EC 2020-0 Yes 81mg Take 81 mg [facility] 81 MG 5-05 by mouth. College tablet 00:00: of 00 Medicin e glipiZIDE 2020-0 Yes 10mg Take 10 mg [facility] (GLUCOTROL) 5-05 by mouth. [facility] 10 MG CR 00:00: of tablet 00 Medicin e aspirin EC 2020-0 Yes 81mg Take 81 mg [facility] 81 MG 5-05 by mouth. [facility] tablet 00:00: of 00 Medicin e glipiZIDE 2020-0 Yes 10mg Take 10 mg [facility] (GLUCOTROL) 5-05 by mouth. [facility] 10 MG CR 00:00: of tablet 00 Medicin e aspirin EC 2020-0 Yes 81mg Take 81 mg [facility] 81 MG 5-05 by mouth. [facility] tablet 00:00: of 00 Medicin e glipiZIDE 2020-0 Yes 10mg Take 10 mg [facility] (GLUCOTROL) 5-05 by mouth. [facility] 10 MG CR 00:00: of tablet 00 Medicin e aspirin EC 2020-0 Yes 81mg Take 81 mg [facility] 81 MG 5-05 by mouth. [facility] tablet 00:00: of 00 Medicin e glipiZIDE 2020-0 Yes 10mg Take 10 mg [facility] (GLUCOTROL) 5-05 by mouth. [facility] 10 MG CR 00:00: of tablet 00 Medicin e hydrocodone 2020-0 Yes 1{tbl} Take 1 Tab [facility] -acetaminop 5-05 by mouth. [facility] hen ([employer]) 00:00: of 5-325 mg 00 Medicin tablet e hydrocodone 2020-0 2020- No 1{tbl} Take 1 Tab [facility] -acetaminop 5-05 10-19 by mouth. [facility] hen ([employer]) 00:00: 00:00 of 5-325 mg 00 :00 Medicin tablet e nortriptyli 2020-0 Yes 25mg QD Take [address] [facility] ([facility] 00:00: daily. Medica l 25 MG 00 Center capsule metformin 2020-0 Yes 1000mg Take 1,000 [facility] (GLUCOPHAGE 1-30 mg by [facility] ) 1000 MG 00:00: mouth. of tablet 00 Medicin e nortriptyli 2020-0 Yes 25mg Take 25 mg [facility] ne 1-30 by mouth. [facility] ([facility]) 00:00: of 25 MG 00 Medicin capsule e metformin 2020-0 Yes 1000mg Take 1,000 [facility] (GLUCOPHAGE 1-30 mg by [facility] ) 1000 MG 00:00: mouth. of tablet 00 Medicin e nortriptyli 2020-0 Yes 25mg Take 25 mg [facility] ne 1-30 by mouth. [facility] ([facility]) 00:00: of 25 MG 00 Medicin capsule e nortriptyli 2020-0 Yes 25mg Take 25 mg [facility] ne 1-30 by mouth. [facility] ([facility]) 00:00: of 25 MG 00 Medicin capsule e metformin 2020-0 Yes 1000mg Take 1,000 [facility] (GLUCOPHAGE 1-30 mg by [facility] ) 1000 MG 00:00: mouth. of tablet 00 Medicin e nortriptyli 2020-0 Yes 25mg Take 25 mg [facility] ne 1-30 by mouth. [facility] ([facility]) 00:00: of 25 MG 00 Medicin capsule e nortriptyli 2020-0 Yes 25mg Take 25 mg [facility] ne 1-30 by mouth. [facility] ([facility]) 00:00: of 25 MG 00 Medicin capsule e nortriptyli 2020-0 Yes 25mg Take 25 mg [facility] ne 1-30 by mouth. [facility] ([facility]) 00:00: of 25 MG 00 Medicin capsule e metformin 2020-0 Yes 1000mg Take 1,000 [facility] (GLUCOPHAGE 1-30 mg by [facility] ) 1000 MG 00:00: mouth. of tablet 00 Medicin e nortriptyli 2020-0 Yes 25mg Take 25 mg [facility] ne 1-30 by mouth. [facility] ([facility]) 00:00: of 25 MG 00 Medicin capsule e metformin 2020-0 2020- No 1000mg Take 1,000 [facility] (GLUCOPHAGE 1-30 10-19 mg by [facility] ) 1000 MG 00:00: 00:00 mouth. of tablet 00 :00 Medicin e metformin 2020-0 2020- No 1000mg Take 1,000 [facility] (GLUCOPHAGE 1-30 10-19 mg by [facility] ) 1000 MG 00:00: 00:00 mouth. of tablet 00 :00 Medicin e Immunizations Ordered Immunization Filled Immunization Date Status Commen ts Source Name Name Influenza 2019-03-26 Completed [facility] 3YRS+ 00:00:00 of Med icine Influenza 2019-03-26 Completed [facility] 3YRS+ 00:00:00 of Med icine Influenza 2019-03-26 Completed [facility] 3YRS+ 00:00:00 of Med icine Influenza 2019-03-26 Completed [facility] 3YRS+ 00:00:00 of Med icine Influenza 2019-03-26 Completed [facility] 3YRS+ 00:00:00 of Med icine Influenza 2019-03-26 Completed [facility] 3YRS+ 00:00:00 of Med icine Influenza 2019-03-26 Completed [facility] 3YRS+ 00:00:00 of Med icine Influenza 2018-04-10 Completed [facility] 3YRS+ 00:00:00 of Med icine Pneumococcal 2018-04-10 Completed [facility] ge Polysaccharide 00:00:00 of Medicin e Influenza 2018-04-10 Completed [facility] 3YRS+ 00:00:00 of Med icine Pneumococcal 2018-04-10 Completed [facility] ge Polysaccharide 00:00:00 of Medicin e Influenza 2018-04-10 Completed [facility] 3YRS+ 00:00:00 of Med icine Pneumococcal 2018-04-10 Completed [facility] Col[facility] ge Polysaccharide 00:00:00 of Medicin e Influenza 2018-04-10 Completed [facility] 3YRS+ 00:00:00 of Med icine Pneumococcal 2018-04-10 Completed [facility] Col[facility] ge Polysaccharide 00:00:00 of Medicin e Influenza 2018-04-10 Completed [facility] 3YRS+ 00:00:00 of Med icine Pneumococcal 2018-04-10 Completed [facility] Polysaccharide 00:00:00 of Medicin e Influenza 2018-04-10 Completed [facility] 3YRS+ 00:00:00 of Med icine Pneumococcal 2018-04-10 Completed [facility] ge Polysaccharide 00:00:00 of Medicin e Influenza 2018-04-10 Completed [facility] 3YRS+ 00:00:00 of Med icine Pneumococcal 2018-04-10 Completed [facility] ge Polysaccharide 00:00:00 of Medicin e Influenza 2017-03-28 Completed [facility] 3YRS+ 00:00:00 of Med icine Pneumococcal 2017-03-28 Completed [facility] ge 13-valent Conjugate 00:00:00 of Me dicine Vaccine Influenza 2017-03-28 Completed [facility] 3YRS+ 00:00:00 of Med icine Pneumococcal 2017-03-28 Completed [facility] ge 13-valent Conjugate 00:00:00 of Me dicine Vaccine Influenza 2017-03-28 Completed [facility] 3YRS+ 00:00:00 of Med icine Pneumococcal 2017-03-28 Completed [facility] ge 13-valent Conjugate 00:00:00 of Me dicine Vaccine Influenza 2017-03-28 Completed [facility] 3YRS+ 00:00:00 of Med icine Pneumococcal 2017-03-28 Completed [facility] ge 13-valent Conjugate 00:00:00 of Me dicine Vaccine Influenza 2017-03-28 Completed [facility] Quad[facility] 3YRS+ 00:00:00 of Med icine Influenza 2017-03-28 Completed [facility] 3YRS+ 00:00:00 of Med icine Pneumococcal 2017-03-28 Completed [facility] ge 13-valent Conjugate 00:00:00 of Me dicine Vaccine Pneumococcal 2017-03-28 Completed [facility] ge 13-valent Conjugate 00:00:00 of Me dicine Vaccine Influenza 2017-03-28 Completed [facility] Quadrivalent 3YRS+ 00:00:00 of Med icine Pneumococcal 2017-03-28 Completed [facility] ge 13-valent Conjugate 00:00:00 of Me dicine Vaccine Influenza 2011-04-26 Completed [facility] Quad[facility] 3YRS+ 00:00:00 of Med icine Influenza 2011-04-26 Completed [facility] 3YRS+ 00:00:00 of Med icine Influenza 2011-04-26 Completed [facility] 3YRS+ 00:00:00 of Med icine Influenza 2011-04-26 Completed [facility] 3YRS+ 00:00:00 of Med icine Influenza 2011-04-26 Completed [facility] 3YRS+ 00:00:00 of Med icine Influenza 2011-04-26 Completed [facility] 3YRS+ 00:00:00 of Med icine Influenza 2011-04-26 Completed [facility] 3YRS+ 00:00:00 of Med icine Vital Signs Vital Name Observation Time Observation Value Comments Source HEIGHT 2020-01-30 00:00:00 162.6 cm WEIGHT 2020-01-30 00:00:00 56.2 kg HEIGHT 2019-12-18 00:00:00 157.5 cm WEIGHT 2019-12-18 00:00:00 60.963 kg HEIGHT 2019-11-30 00:00:00 157.5 cm WEIGHT 2019-11-30 00:00:00 62.1 kg Systolic blood 2020-06-07 20:30:00 101 mm[Hg] [facility] of pressure Medicine Diastolic blood 2020-06-07 20:30:00 65 mm[Hg] [facility] of pressure Medicine Heart rate 2020-06-07 20:30:00 65 /min [facility] ol[facility] of Medicine Body height 2020-06-07 20:30:00 162.6 cm [facility] of Medicine Body weight 2020-06-07 20:30:00 62.143 kg [facility] ol[facility] of Medicine BMI 2020-06-07 20:30:00 23.52 kg/m2 [facility] ol[facility] of Medicine Systolic blood 2020-06-07 20:30:00 101 mm[Hg] [facility] of pressure Medicine Diastolic blood 2020-06-07 20:30:00 65 mm[Hg] [facility] of pressure Medicine Heart rate 2020-06-07 20:30:00 65 /min [facility] C ollege of Medicine Body height 2020-06-07 20:30:00 162.6 cm [facility] C ollege of Medicine Body weight 2020-06-07 20:30:00 62.143 kg [facility] C [facility]lege of Medicine BMI 2020-06-07 20:30:00 23.52 kg/m2 [facility] C [facility] of Medicine Systolic blood 2020-04-05 19:46:00 127 mm[Hg] [facility] of pressure Medicine Diastolic blood 2020-04-05 19:46:00 61 mm[Hg] [facility] of pressure Medicine Heart rate 2020-04-05 19:46:00 40 /min [facility] Body height 2020-04-05 19:46:00 162.6 cm [facility] C [facility] of Medicine Body weight 2020-04-05 19:46:00 62.143 kg [facility] C [facility] of Medicine BMI 2020-04-05 19:46:00 23.52 kg/m2 [facility] C ol[facility] of Medicine Systolic blood 2020-04-05 19:46:00 127 mm[Hg] [facility] of pressure Medicine Diastolic blood 2020-04-05 19:46:00 61 mm[Hg] [facility] of pressure Medicine Heart rate 2020-04-05 19:46:00 40 /min [facility] C ol[facility] of Medicine Body height 2020-04-05 19:46:00 162.6 cm [facility] C [facility] of Medicine Body weight 2020-04-05 19:46:00 62.143 kg [facility] C [facility] of Medicine BMI 2020-04-05 19:46:00 23.52 kg/m2 [facility] C [facility] of Medicine Systolic blood 2020-04-05 20:08:00 127 mm[Hg] [facility] of pressure Medicine Diastolic blood 2020-04-05 20:08:00 61 mm[Hg] [facility] of pressure Medicine Heart rate 2020-04-05 20:08:00 40 /min [facility] C ol[facility] of Medicine Body height 2020-04-05 20:08:00 162.6 cm [facility] C ol[facility] of Medicine Body weight 2020-04-05 20:08:00 62.143 kg [facility] C ol[facility] of Medicine BMI 2020-04-05 20:08:00 23.52 kg/m2 [facility] C ol[facility] of Medicine Systolic blood 2020-04-05 20:08:00 127 mm[Hg] [facility] of pressure Medicine Diastolic blood 2020-04-05 20:08:00 61 mm[Hg] [facility] of pressure Medicine Heart rate 2020-04-05 20:08:00 40 /min [facility] C ol[facility] of Medicine Body height 2020-04-05 20:08:00 162.6 cm [facility] C ol[facility] of Medicine Body weight 2020-04-05 20:08:00 62.143 kg [facility] C ol[facility] of Medicine BMI 2020-04-05 20:08:00 23.52 kg/m2 [facility] C ollege of Medicine Systolic blood 2020-02-26 19:57:00 119 mm[Hg] [facility] pressure Medicine Diastolic blood 2020-02-26 19:57:00 82 mm[Hg] [facility] Medicine Heart rate 2020-02-26 19:57:00 79 /min [facility] C ollege of Medicine Body height 2020-02-26 19:57:00 162.6 cm [facility] C ol[facility] of Medicine Body weight 2020-02-26 19:57:00 61.236 kg [facility] C ol[facility] of Medicine BMI 2020-02-26 19:57:00 23.17 kg/m2 [facility] C ol[facility] of Medicine Systolic blood 2020-02-26 19:57:00 119 mm[Hg] [facility] pressure Medicine Diastolic blood 2020-02-26 19:57:00 82 mm[Hg] [facility] Medicine Heart rate 2020-02-26 19:57:00 79 /min [facility] C [facility] of Medicine Body height 2020-02-26 19:57:00 162.6 cm [facility] C [facility] of Medicine Body weight 2020-02-26 19:57:00 61.236 kg [facility] C ollege of Medicine [facility] 2020-02-26 19:57:00 23.17 kg/m2 [facility] C [facility] of Medicine HEIGHT 2020-01-30 00:00:00 162.6 cm WEIGHT 2020-01-30 00:00:00 56.2 kg Systolic blood 2020-01-28 15:35:00 124 mm[Hg] [facility] Medicine Diastolic blood 2020-01-28 15:35:00 72 mm[Hg] [facility] pressure Medicine Heart rate 2020-01-28 15:35:00 68 /min [facility] C ol[facility] of Medicine Body height 2020-01-28 15:35:00 162.6 cm [facility] C ol[facility] of Medicine Body weight 2020-01-28 15:35:00 61.689 kg [facility] C ollege of Medicine [facility] 2020-01-28 15:35:00 23.34 kg/m2 [facility] C ol[facility] of Medicine Systolic blood 2020-01-28 15:35:00 124 mm[Hg] [facility] pressure Medicine Diastolic blood 2020-01-28 15:35:00 72 mm[Hg] [facility] of pressure Medicine Heart rate 2020-01-28 15:35:00 68 /min [facility] C ol[facility] of Medicine Body height 2020-01-28 15:35:00 162.6 cm [facility] C ol[facility] of Medicine Body weight 2020-01-28 15:35:00 61.689 kg [facility] C ol[facility] of Medicine BMI 2020-01-28 15:35:00 23.34 kg/m2 [facility] C ol[facility] of Medicine Systolic blood 2020-01-21 16:29:00 120 mm[Hg] [facility] of pressure Medicine Diastolic blood 2020-01-21 16:29:00 64 mm[Hg] [facility] Medicine Heart rate 2020-01-21 16:29:00 70 /min [facility] C ol[facility] of Medicine Body temperature 2020-01-21 16:29:00 37 Terese [facility] Body height 2020-01-21 16:29:00 162.6 cm [facility] C [facility] of Medicine Body weight 2020-01-21 16:29:00 61.689 kg [facility] C [facility] of Medicine BMI 2020-01-21 16:29:00 23.34 kg/m2 [facility] C ol[facility] of Medicine Systolic blood 2020-01-21 16:29:00 120 mm[Hg] [facility] Medicine Diastolic blood 2020-01-21 16:29:00 64 mm[Hg] [facility] Medicine Heart rate 2020-01-21 16:29:00 70 /min [facility] C ol[facility] of Medicine Body temperature 2020-01-21 16:29:00 37 Terese [facility] Body height 2020-01-21 16:29:00 162.6 cm [facility] C [facility] of Medicine Body weight 2020-01-21 16:29:00 61.689 kg [facility] C [facility] of Medicine BMI 2020-01-21 16:29:00 23.34 kg/m2 [facility] C [facility] of Medicine HEIGHT 2019-12-18 00:00:00 157.5 cm WEIGHT 2019-12-18 00:00:00 60.963 kg HEIGHT 2019-11-30 00:00:00 157.5 cm WEIGHT 2019-11-30 00:00:00 62.1 kg Systolic blood 2020-02-17 13:00:00 162 mm[Hg] [facility] Diastolic blood 2020-02-17 13:00:00 74 mm[Hg] [facility] Heart rate 2020-02-17 13:00:00 69 /min [facility] Body temperature 2020-02-17 13:00:00 35.78 Terese [facility] Respiratory rate 2020-02-17 13:00:00 18 /min [facility] Oxygen saturation in 2020-02-17 13:00:00 100 /min [facility] Arterial blood by Medical Ce nter Pulse oximetry Procedures Procedure Date / Time Performed Performing Clinician Sour e POCT-GLUCOSE METER 2020-02-17 [facility] POCT-GLUCOSE METER 2020-02-17 07:48:00 [facility] POCT-GLUCOSE METER 2020-02-16 21:14:00 [facility] Manuel [facility] POCT-GLUCOSE METER 2020-02-16 16:28:00 [facility] POCT-GLUCOSE METER 2020-02-16 11:35:00 [facility] Manuel [facility] POCT-GLUCOSE METER 2020-02-16 07:34:00 [facility] POCT-GLUCOSE METER 2020-02-15 21:19:00 [facility] Manuelshon Bianchi [facility] POCT-GLUCOSE METER 2020-02-15 15:51:00 [facility] POCT-GLUCOSE METER 2020-02-15 12:16:00 [facility] POCT-GLUCOSE METER 2020-02-15 08:01:00 [facility] CBC W/PLT COUNT & AUTO 2020-02-15 04:24:00 Ammy Manuel Bianchi [facility] Plan of Care Planned Activity Planned Date Details Comments Source Future Scheduled 2021-02-[address] [facility] - Test 00:00:00 (#1) [code = Medical Center INFLUENZA VACCINE (#1)] Future Scheduled 2020-06-[address] [facility] - Test 00:00:00 (12+) [code = Medical Center DEPRESSION SCREENING (12+)] Future Scheduled 2020-06-18 FALLS RISK SCREENING [facility] - Test 00:00:00 [code = FALLS RISK Medical C enter SCREENING] Future Scheduled 2020-03-[address] [facility] Test 00:[facility]:00 measurement Medical Center (procedure) [code = [id number]] Future Scheduled 2018-08-[address] [facility] - Test 00:00:00 WELLNESS (YEAR 2 or Medical Center FIRST YEAR if no IPPE) [code = MEDICARE ANNUAL WELLNESS (YEAR 2 or FIRST YEAR if no IPPE)] Future Scheduled 2017-05-30 Urine screening for [facility] - Test 00:00:00 protein (procedure) Medical Center [code = [id number]] Future Scheduled 1996 SHINGLES VACCINES ([address] [facility] - Test 00:00:00 of 2) [code = Medical Center SHINGLES VACCINES (1 of 2)] Future Scheduled 1965 DTAP/TDAP/TD [facility] VACCINES (1 - Tdap) Medical Center [code = DTAP/TDAP/TD VACCINES (1 - Tdap)] Future Scheduled [address] [facility] Test 00:[facility]:00 SCREENING [code = Medical nter HEPATITIS C SCREENING] Future Scheduled 1958 COVID-19 VACCINE (1) [facility] - Test 00:00:00 [code = COVID-[address] VACCINE (1)] Future Scheduled [address] EYE EXAM [facility] - Test 00:00:00 [code = DIABETIC EYE Medical Center EXAM] Future Scheduled [address] [facility] Test 00:00:00 examination Medical Center (regime/therapy) [code = [id number]] Future Scheduled [address] [facility] - Test 00:00:00 malignant neoplasm Medical C enter of breast (procedure) [code = [id number]] Future Scheduled [address] [facility] - Test 00:00:00 malignant neoplasm Medical C enter of colon (procedure) [code = [id number]] Future Scheduled FALL SCREEN [code = [employer] [facility] FALL SCREEN] of Medicine Future Scheduled STAPLE REMOVAL [code Ordered: [employer] Test = NOCPT] 02/26/2020 of Medicine Future Scheduled COLON CANCER [facility] [employer] SCREENING: of Medicine COLONOSCOPY [code = COLON CANCER SCREENING: COLONOSCOPY] Future Scheduled TETANUS SHOT (ADULT) [employer] Test [code = TETANUS SHOT of Medi cine (ADULT)] Future Scheduled Diabetic foot [facility] Test examination of Medicine (regime/therapy) [code = [id number]] Future Scheduled ANNUAL DIABETIC [facility] C [facility]lege Test RETINOPATHY of Medicine SCREENING [code = ANNUAL DIABETIC RETINOPATHY SCREENING] Future Scheduled HEPATITIS C [facility] [employer] [facility] SCREENING [code = of Medicin e HEPATITIS C SCREENING] Future Scheduled ZOSTER VACCINE (1 of [employer] Test 2) [code = ZOSTER of Medicin e VACCINE (1 of 2)] Future Scheduled OSTEOPOROSIS [facility] [facility] SCREENING [code = of Medicin e OSTEOPOROSIS SCREENING] Future Scheduled MEDICARE IPPE [facility] Col [facility] Test (WELCOME TO of Medicine MEDICARE) [code = MEDICARE IPPE (WELCOME TO MEDICARE)] Future Scheduled FLU VACCINE > 6 [facility] C ollege Test MONTHS [code = FLU of Medici ne VACCINE > 6 MONTHS] Future Scheduled MAMMOGRAM ANNUAL [facility] College Test [code = MAMMOGRAM of Medicin e ANNUAL] Future Scheduled FALL SCREEN [code = [employer] [facility] FALL SCREEN] of Medicine Future Scheduled DC DEBRIDEMENT OPEN Ordered: [employer] Test WOUND 20 SQ CM< 03/15/2020 of Medicine [code = 68401] Future Scheduled COLON CANCER [facility] [employer] SCREENING: of Medicine COLONOSCOPY [code = COLON CANCER SCREENING: COLONOSCOPY] Future Scheduled TETANUS SHOT (ADULT) [employer] Test [code = TETANUS SHOT of Medi cine (ADULT)] Future Scheduled Diabetic foot [facility] Test examination of Medicine (regime/therapy) [code = [id number]] Future Scheduled ANNUAL DIABETIC [facility] C [facility] Test RETINOPATHY of Medicine SCREENING [code = ANNUAL DIABETIC RETINOPATHY SCREENING] Future Scheduled HEPATITIS C [facility] [employer] Test SCREENING [code = of Medicin e HEPATITIS C SCREENING] Future Scheduled ZOSTER VACCINE (1 of [employer] Test 2) [code = ZOSTER of Medicin e VACCINE (1 of 2)] Future Scheduled OSTEOPOROSIS [facility] SCREENING [code = of Medicin e OSTEOPOROSIS SCREENING] Future Scheduled MEDICARE IPPE [facility] Test (WELCOME TO of Medicine MEDICARE) [code = MEDICARE IPPE (WELCOME TO MEDICARE)] Future Scheduled FLU VACCINE > 6 [facility] C [facility] Test MONTHS [code = FLU of Medici ne VACCINE > 6 MONTHS] Future Scheduled MAMMOGRAM ANNUAL [facility] Test [code = MAMMOGRAM of Medicin e ANNUAL] Future Scheduled FALL SCREEN [code = [employer] [facility] FALL SCREEN] of Medicine Future Scheduled COLON CANCER [facility] [employer] Test SCREENING: of Medicine COLONOSCOPY [code = COLON CANCER SCREENING: COLONOSCOPY] Future Scheduled TETANUS SHOT (ADULT) [employer] Test [code = TETANUS SHOT of Medi cine (ADULT)] Future Scheduled Diabetic foot [facility] Test examination of Medicine (regime/therapy) [code = [id number]] Future Scheduled ANNUAL DIABETIC [facility] C ollege Test RETINOPATHY of Medicine SCREENING [code = ANNUAL DIABETIC RETINOPATHY SCREENING] Future Scheduled HEPATITIS C [facility] [employer] Test SCREENING [code = of Medicin e HEPATITIS C SCREENING] Future Scheduled ZOSTER VACCINE (1 of [employer] Test 2) [code = ZOSTER of Medicin e VACCINE (1 of 2)] Future Scheduled OSTEOPOROSIS [facility] [employer] Test SCREENING [code = of Medicin e OSTEOPOROSIS SCREENING] Future Scheduled MEDICARE IPPE [facility] Test (WELCOME TO of Medicine MEDICARE) [code = MEDICARE IPPE (WELCOME TO MEDICARE)] Future Scheduled FLU VACCINE > 6 [facility] C ollege Test MONTHS [code = FLU of Medici ne VACCINE > 6 MONTHS] Future Scheduled MAMMOGRAM ANNUAL [facility] Test [code = MAMMOGRAM of Medicin e ANNUAL] Future Scheduled FALL SCREEN [code = [employer] [facility] FALL SCREEN] of Medicine Future Scheduled DC DEBRIDEMENT OPEN Ordered: [employer] Test WOUND 20 SQ CM< 04/06/2020 of Medicine [code = 37868] Future Scheduled COLON CANCER [facility] [employer] Test SCREENING: of Medicine COLONOSCOPY [code = COLON CANCER SCREENING: COLONOSCOPY] Future Scheduled TETANUS SHOT (ADULT) [employer] Test [code = TETANUS SHOT of Medi cine (ADULT)] Future Scheduled Diabetic foot [facility] Test examination of Medicine (regime/therapy) [code = [id number]] Future Scheduled ANNUAL DIABETIC [facility] C ollege Test RETINOPATHY of Medicine SCREENING [code = ANNUAL DIABETIC RETINOPATHY SCREENING] Future Scheduled HEPATITIS C [facility] [employer] Test SCREENING [code = of Medicin e HEPATITIS C SCREENING] Future Scheduled ZOSTER VACCINE (1 of [employer] Test 2) [code = ZOSTER of Medicin e VACCINE (1 of 2)] Future Scheduled OSTEOPOROSIS [facility] [employer] Test SCREENING [code = of Medicin e OSTEOPOROSIS SCREENING] Future Scheduled MEDICARE IPPE [facility] Col [facility]ge Test (WELCOME TO of Medicine MEDICARE) [code = MEDICARE IPPE (WELCOME TO MEDICARE)] Future Scheduled FLU VACCINE > 6 [facility] C ollege Test MONTHS [code = FLU of Medici ne VACCINE > 6 MONTHS] Future Scheduled MAMMOGRAM ANNUAL [facility] College Test [code = MAMMOGRAM of Medicin e ANNUAL] Future Scheduled FALL SCREEN [code = [employer] [facility] FALL SCREEN] of Medicine Future Scheduled DC DEBRIDEMENT OPEN Ordered: [employer] Test WOUND 20 SQ CM< 06/08/2020 of Medicine [code = 65933] Future Scheduled COLON CANCER [facility] [employer] Test SCREENING: of Medicine COLONOSCOPY [code = COLON CANCER SCREENING: COLONOSCOPY] Future Scheduled TETANUS SHOT (ADULT) [employer] Test [code = TETANUS SHOT of Medi cine (ADULT)] Future Scheduled Diabetic foot [facility] [employer]ge Test examination of Medicine (regime/therapy) [code = 341389752] Future Scheduled ANNUAL DIABETIC [employer] RETINOPATHY of Medicine SCREENING [code = ANNUAL DIABETIC RETINOPATHY SCREENING] Future Scheduled HEPATITIS C [employer] SCREENING [code = of Medicin e HEPATITIS C SCREENING] Future Scheduled ZOSTER VACCINE (1 of [employer] Test 2) [code = ZOSTER of Medicin e VACCINE (1 of 2)] Future Scheduled OSTEOPOROSIS [employer] SCREENING [code = of Medicin e OSTEOPOROSIS SCREENING] Future Scheduled MEDICARE IPPE [facility] [employer] Test (WELCOME TO of Medicine MEDICARE) [code = MEDICARE IPPE (WELCOME TO MEDICARE)] Future Scheduled FLU VACCINE > 6 [employer] Test MONTHS [code = FLU of Medici ne VACCINE > 6 MONTHS] Future Scheduled MAMMOGRAM ANNUAL [facility] College Test [code = MAMMOGRAM of Medicin e ANNUAL] Future Scheduled FALL SCREEN [code = [employer] Test FALL SCREEN] of Medicine Future Scheduled COLON CANCER [facility] [employer] Test SCREENING: of Medicine COLONOSCOPY [code = COLON CANCER SCREENING: COLONOSCOPY] Future Scheduled MAMMOGRAM ANNUAL [facility] College Test [code = MAMMOGRAM of Medicin e ANNUAL] Future Scheduled TETANUS SHOT (ADULT) [employer] Test [code = TETANUS SHOT of Medi cine (ADULT)] Future Scheduled HEPATITIS C [facility] [employer] Test SCREENING [code = of Medicin e HEPATITIS C SCREENING] Future Scheduled FALL SCREEN [code = [employer] FALL SCREEN] of Medicine Future Scheduled OSTEOPOROSIS [employer] SCREENING [code = of Medicin e OSTEOPOROSIS SCREENING] Future Scheduled MEDICARE IPPE [facility] [employer] Test (WELCOME TO of Medicine MEDICARE) [code = MEDICARE IPPE (WELCOME TO MEDICARE)] Future Scheduled FLU VACCINE > 6 [employer] Test MONTHS [code = FLU of Medici ne VACCINE > 6 MONTHS] Future Scheduled COLON CANCER [facility] [employer] Test SCREENING: of Medicine COLONOSCOPY [code = COLON CANCER SCREENING: COLONOSCOPY] Future Scheduled MAMMOGRAM ANNUAL [facility] Test [code = MAMMOGRAM of Medicin e ANNUAL] Future Scheduled TETANUS SHOT (ADULT) [employer] Test [code = TETANUS SHOT of Medi cine (ADULT)] Future Scheduled HEPATITIS C [facility] [employer] Test SCREENING [code = of Medicin e HEPATITIS C SCREENING] Future Scheduled ZOSTER VACCINE (1 of [employer] Test 2) [code = ZOSTER of Medicin e VACCINE (1 of 2)] Future Scheduled OSTEOPOROSIS [facility] [employer] Test SCREENING [code = of Medicin e OSTEOPOROSIS SCREENING] Future Scheduled MEDICARE IPPE [facility] [employer] Test (WELCOME TO of Medicine MEDICARE) [code = MEDICARE IPPE (WELCOME TO MEDICARE)] Future Scheduled FLU VACCINE > 6 [employer] Test MONTHS [code = FLU of Medici ne VACCINE > 6 MONTHS] Future Scheduled US ARTERIAL LEGS 1 Occurrences [employer] Test BILATERAL [code = starting of Medicin e 67297-4] 04/05/2020 until 04/05/2021 Future Scheduled US ARTERIAL LEG 1 Occurrences [facility] College Test RIGHT [code = 94636] starting of Medi cine 02/26/2020 until 02/25/2021 Encounters Start End Encounter Admission Attending Care Care Encounter Source Date/Time Date/Time Type Type Clinicians Facility Department ID 2021-04-18 Outpatient R JIGNA, [facility] OPH [id number] Univers 01:36:11 CARMEN [facility] 2021-04-17 Emergency [facility] [id number] Univers 18:13:26 [facility] 2021-03-23 Outpatient TONLACEYOLIVIA Surgery [id number] SLE 03:18:04 GABRIEL 2019-12-18 Inpatient EL DEL SLEH PM\\T\\R [id number] SLEH 16:18:00 DARIUSZ ALEJO 2019-12-01 Inpatient ER DAREN [facility] Internal [id number] SLEH 02:34:00 MARTIN Med 2020-12-14 2020-12-14 Outpatient R [facility] [id number] Univers 16:15:00 16:15:00 [id number] [facility] 2020-12-14 2020-12-14 [facility] [id number] Univers 16:15:00 16:15:00 CARMEN [facility] 2020-10-25 2020-10-25 [facility] 1.2.840.114 [id number] 15:56:00 17:25:00 Juana Wiggins 350.1.13.10 [place] 4.2.7.2.686 [place] [id number] 084 2020-09-23 2020-09-23 Orders Doctor BILL 1.2.840.114 [id number] 00:00:00 00:00:00 Only Unassigned, PATTY 350.1.13.10 [facility] 4.2.7.2.686 [id number] 009 2020-07-07 2020-07-07 [facility] 1.2.840.114 [id number] 00:00:00 00:00:00 Vanesa Wiggins 350.1.13.10 [place] 4.2.7.2.686 [facility] [id number] [address] 2020-06-07 2020-06-07 Office HUANG Stovall 1.2.840.114 [id number] 13:56:25 16:57:48 Visit Gabriel Everett AMBULATOR 350.1.13.21 Y 0.2.7.2.686 [id number] 2020-06-07 2020-06-07 Office HUANG Stovall 1.2.840.114 [id number] [facility] 13:56:25 16:57:48 Visit Gabriel Everett AMBULATOR 350.1.13.21 College Y 0.2.7.2.686 of [id number] [facility] 825 e 2020-05-07 2020-05-07 Orders Doctor BILL 1.2.840.114 [id number] 00:00:00 00:00:00 Only Unassigned, PATTY 350.1.13.10 [facility] 4.2.7.2.686 [id number] 009 2020-04-05 2020-04-05 Office HUANG Stovall 1.2.840.114 [id number] 14:32:01 15:37:58 Visit Gabriel Everett AMBULATOR 350.1.13.21 Y 0.2.7.2.686 [id number] [facility] 2020-04-05 2020-04-05 Office HUANG Stovall 1.2.840.[id number] [place] [address] 14:32:01 15:37:58 Visit Gabriel Everett AMBULATOR 350.1.13.21 College Y 0.2.7.2.686 of [id number] [facility] 825 e 2020-04-05 2020-04-05 Office HUANG Franco 1.2.840.114 [id number] 14:31:13 15:37:49 Visit Giovanny AMBULATOR 350.1.13.21 Lionel Y 0.2.7.2.686 [id number] [facility] 2020-04-05 2020-04-05 Office FrancoHUANG 1.2.840.114 [id number] [facility] 14:31:13 15:37:49 Visit Giovanny AMBULATOR 350.1.13.21 College Lionel Y 0.2.7.2.686 of [id number] [facility] 825 e 2020-03-15 2020-03-15 Office HUANG Stovall 1.2.840.114 [id number] 15:50:40 16:41:06 Visit Gabriel Everett AMBULATOR 350.1.13.21 Y 0.2.7.2.686 [id number] [facility] 2020-03-15 2020-03-15 Office HUANG Stovall 1.2.840.114 [id number] [facility] 15:50:40 16:41:06 Visit Gabriel CLAROSATOR 350.1.13.21 College Y 0.2.7.2.686 of [id number] [facility] 825 e 2020-02-26 2020-02-26 Office HUANG Stovall 1.2.840.114 [id number] 14:43:47 15:34:04 Visit Gabriel Everett AMBULATOR 350.1.13.21 Y 0.2.7.2.686 [id number] [facility] 2020-02-26 2020-02-26 Office HUANG Stovall 1.2.840.114 [id number] [facility] 14:43:47 15:34:04 Visit Gabriel Everett AMBULATOR 350.1.13.21 College Y 0.2.7.2.686 of [id number] [facility] 825 e 2020-02-20 2020-02-20 Outpatient Braulio [place] [id number] 94P-20 Univers 13:00:00 13:00:00 VANESA [id number] [facility] 2020-02-20 2020-02-20 [facility] [id number] Univers 13:00:00 13:00:00 VANESA [facility] 2020-02-10 2020-02-17 [facility] Gabriel Cavazos [facility] [id number] [facility] [address] 11:05:00 16:30:00 [facility] 2020-02-06 2020-02-06 Outpatient EL SLE SLEH [id number] [facility] 00:00:00 00:00:00 2020-02-02 2020-02-02 Outpatient [place] [id number] 94P-20 Univers 15:20:00 15:20:00 VANESA [id number] [facility] 2020-02-02 2020-02-02 [facility] [id number] [facility] 15:20:00 15:20:00 VANESA [facility] 2020-01-28 2020-01-28 Office HUANG Stovall 1.2.840.114 [id number] 10:21:38 10:36:38 Visit Gabriel Everett AMBULATOR 350.1.13.21 Y 0.2.7.2.686 [id number] 2020-01-28 2020-01-28 Office HUANG Stovall 1.2.840.114 [id number] [facility] 10:21:38 10:36:38 Visit Gabriel Everett AMBULATOR 350.1.13.21 College Y 0.2.7.2.686 of [id number] [facility] 825 e 2020-01-27 2020-01-27 Outpatient R [place] [id number] 94P-20 [facility] 09:20:00 09:20:00 VANESA [id number] [facility] 2020-01-21 2020-01-21 Office Jason Cortez 1.2.840.114 [id number] 11:23:24 12:51:12 Visit AMBULATOR 350.1.13.21 Y 0.2.7.2.686 [id number] 2020-01-21 2020-01-21 Office CortezJason RHONDAJeri 1.2.840.114 [id number] [facility] 11:23:24 12:51:12 Visit AMBULATOR 350.1.13.21 College Y 0.2.7.2.686 of [id number] [facility] 800 e 2020-01-16 2020-01-16 Outpatient [place] [id number] 94-20 [facility] 13:00:00 13:00:00 VANESA [id number] [facility] 2019-12-15 2019-12-15 Orders Doctor KHAN 1.2.840.114 [id number] 00:00:00 00:00:00 Only Unassigned, PATTY 350.1.13.10 [facility] 4.2.7.2.686 [id number] [id number] 2019-12-11 2019-12-11 Outpatient [place]ulio [place] [id number] Univers 14:00:00 14:00:00 CESAR [id number] [facility] 2019-12-11 2019-12-11 Outpatient R JOSE [facility] [id number] Univers 14:00:00 14:00:00 CESAR [facility] 2019-11-21 2019-11-21 [facility] [id number] 94P-20 Univers 15:00:00 15:00:00 VANESA Coughlin [facility] 2019-11-21 2019-11-21 [facility] [id number] Univers 15:00:00 15:00:00 VANESA [facility] 2019-11-21 2019-11-21 Telemedici [facility] 1.2.840.114 [id number] 08:57:41 09:37:41 ne Visit Vanesa Wiggins 350.1.13.10 [place] 4.2.7.2.686 Professio [id number] [address] 2019-10-30 2019-10-30 Telephone [facility] 1.2.840.114 [id number] 00:00:00 00:00:00 Vanesa Wiggins 350.1.13.10 [place] 4.2.7.2.686 Professio [id number] [address] 2019-10-22 2019-10-22 Outpatient R [facility] [id number] Univers 17:20:00 17:20:00 [id number] [facility] 2019-10-22 2019-10-22 Outpatient R [facility] [id number] Univers 17:20:00 17:20:00 [facility] 2019-10-17 2019-10-21 Outpatient X SEGUNDO [facility] [id number] Univers 11:59:57 16:28:00 HSERYL [facility] 2019-09-11 2019-09-11 [facility] [id number] Univers 07:20:00 07:20:00 VANESA [facility] 2019-09-08 2019-09-08 Emergency X ISABELLE [facility] ERT [id number] Univers 15:36:09 17:50:00 SYBIL [facility] 2019-09-01 2019-09-01 Emergency X MORAIMA [facility] ERT [id number] Univers 12:01:40 15:56:00 ESTER [facility] 2019-08-25 2019-08-25 Outpatient R KAIALEXDAMIAN, [facility] [id number] 4P-20 Univers 14:45:00 14:45:00 ISH [id number] [facility] 2019-08-25 2019-08-25 Outpatient R ERAN, [facility] [id number] Univers 14:45:00 14:45:00 ISH [facility] 2019-08-20 2019-08-20 Outpatient R ATASARKISSTORM, [facility] 1026 [id number] Univers 14:20:00 14:20:00 CESAR [facility] 2018-11-04 2018-11-04 Outpatient R KAELYN, [facility] ANC [id number] 94P-20 Univers 00:00:00 00:00:00 VANESA [id number] [facility] Results Test Description Test Time Test Comments Results Result Comments Source POC-Glucose meter 2020-02-17 13:05:00 Test Item Value Reference Range Interpretation Comme nts POC-Glucose Meter (test code = 200 mg/dL 70-110 H : TESTED AT [facility] [address] [place] [address]) [facility], [facility] 30: Rn Lab/Techni herson ID = [id number] for CAMILA CHU Lab Interpretation (test code = Abnormal 20319-2) [facility] [id number] 13:05:00 Test Item Value Reference Range Interpretation Comments POC-GLUCOSE METER 200 mg/dL 70-110 H : TESTED A T [facility] [address] (BEAKER) (test code = [facility], 1538) 20520: Rn Lab/Techni herson ID = [id number] for ARISTEO QUEEN POCT-GLUCOSE [id number] 07:59:00 Test Item Value Reference Range Interpretation Comments POC-GLUCOSE METER 191 mg/dL 70-110 H : TESTED A T [facility] [address] (BEAKER) (test code = [facility], 1538) 33427: Rn Lab/Techni herson ID = [id number] for ARISTEO QUEEN POCT-GLUCOSE [id number] 21:25:00 Test Item Value Reference Range Interpretation Comments POC-GLUCOSE METER 287 mg/dL 70-110 H : TESTED A T [facility] [address] (BEAKER) (test code = [facility], [facility]) 42514: Rn Lab/Techni herson ID = [id number] for ANNE FUENTES POCT-GLUCOSE [id number] 16:39:00 Test Item Value Reference Range Interpretation Comments POC-GLUCOSE METER 232 mg/dL 70-110 H : TESTED A T [facility] [address] (BEAKER) (test code = [facility], [facility]) 82552: Rn Lab/Techni herson ID = [id number] for ARISTEO QUEEN POCT-GLUCOSE [id number] 11:46:00 Test Item Value Reference Range Interpretation Comments POC-GLUCOSE METER 197 mg/dL 70-110 H : TESTED A T [facility] [address]20 (BEAKER) (test code = [facility], [facility]) 53526: Rn Lab/Techni herson ID = [id number] for ARISTEO QUEEN POCT-GLUCOSE [id number] 07:45:00 Test Item Value Reference Range Interpretation Comments POC-GLUCOSE METER 119 mg/dL 70-110 H : TESTED A T [facility] [address] (BEAKER) (test code = [facility], [facility]) 14996: Rn Lab/Techni herson ID = [id number] for ARISTEO QUEEN POCT-GLUCOSE [id number] 21:30:00 Test Item Value Reference Range Interpretation Comments POC-GLUCOSE METER 165 mg/dL 70-110 H : TESTED A T [facility] 6720 (BEAKER) (test code = [facility], [facility]) 15906: Rn Lab/Techni herson ID = [id number] for POLLO JACKSON POCT-GLUCOSE [id number] 16:02:00 Test Item Value Reference Range Interpretation Comments POC-GLUCOSE METER 162 mg/dL 70-110 H : TESTED A T [facility] [address] (BEAKER) (test code = [facility], [facility]) 23761: Rn Lab/Techni herson ID = [id number] for Tarah Schwab POCT-GLUCOSE [id number] 12:27:00 Test Item Value Reference Range Interpretation Comments POC-GLUCOSE METER 190 mg/dL 70-110 H : TESTED A T [facility] [address] (BEAKER) (test code = LOREE Ramsey [facility], 1538) 96308: Rn Lab/Techni herson ID = [id number] for Tarah Schwab POCT-GLUCOSE [id number] 08:12:00 Test Item Value Reference Range Interpretation Comments POC-GLUCOSE METER 160 mg/dL 70-110 H : TESTED A T [facility] 6720 (BEAKER) (test code = [facility], 1538) 65307: Rn Lab/Techni herson ID = [id number] for Tarah Schwab CBC with platelet count + automated [id number] 04:55:00 Test Item Value Reference Range Interpretation Comments WBC (test code = 6690-2) 11.1 See_Comment H [A utomated message] The system PWRF generated this result transmitted ref erence range: 3.5 - 10 .5 K/L. The refe rence range was not u sed to interpret this result as normal/abnor mal. RBC (test code = 789-8) 4.12 See_Comment [Au tomated message] The system PWRF generated this result transmitted ref erence range: 3.93 - 5 .22 M/L. The refe rence range was not u sed to interpret this result as normal/abnor mal. MCHC (test code = 786-4) 31.8 See_Comment L [A utomated message] The system PWRF generated this result transmitted ref erence range: [...] See_Comment [Aut omated message] 777-3) The system PWRF generated this result transmitted ref erence range: 150 - 45 0 K/CU MM. The referen ce range was not u sed to interpret this result as normal/abnor mal. MPV (test code = 9.2 fL 9.4-12.3 L 78946-2) nRBC (test code = 413) 0 See_Comment [Aut omated message] The system PWRF generated this result transmitted ref erence range: [...] See_Comment [Aut omated message] 670) The system PWRF generated this result transmitted ref erence range: 1.56 - 6 .13 K/L. The refe rence range was not u sed to interpret this result as normal/abnor mal. # Lymphs (test code = 4.22 See_Comment H [Auto mated message] 414) The system PWRF generated this result transmitted ref erence range: 1.18 - 3 .74 K/L. The refe rence range was not u sed to interpret this result as normal/abnor mal. # Monos (test code = 0.76 See_Comment H [Autom ated message] 415) The system PWRF generated this result transmitted ref erence range: 0.24 - 0 .36 K/L. The refe rence range was not u sed to interpret this result as normal/abnor mal. # Eos (test code = 416) 0.39 See_Comment H [Au tomated message] The system PWRF generated this result transmitted ref erence range: 0.04 - 0 .36 K/L. The refe rence range was not u sed to interpret this result as normal/abnor mal. # Baso (test code = 417) 0.03 See_Comment [A utomated message] The system PWRF generated this result transmitted ref erence range: 0.01 - 0 .08 K/L. The refe rence range was not u sed to interpret this result as normal/abnor mal. Immature 0 % 0-1 Granulocytes-Relative (test code = 2801) Lab Interpretation (test Abnormal code = 03032-5) [facility] W/PLT COUNT & AUTO [id number] 04:55:00 Test Item Value Reference Range Interpretation [...] PERCENT (BEAKER) (test code = 2801) POCT-GLUCOSE [id number] 21:28:00 Test Item Value Reference Range Interpretation Comments POC-GLUCOSE METER 217 mg/dL 70-110 H : TESTED A T [facility] [address] (BEAKER) (test code = [facility], 153) 25942: Rn Lab/Techni herson ID = [id number] for AN ANNE MCNAMARA POCT-GLUCOSE [id number] 16:08:00 Test Item Value Reference Range Interpretation Comments POC-GLUCOSE METER 140 mg/dL 70-110 H : TESTED A T [facility] [address] (BEAKER) (test code = [facility], 153) 41428: Rn Lab/Techni herson ID = [id number] for Me ndeMamta flahertyTarah POCT-GLUCOSE [id number] 13:12:00 Test Item Value Reference Range Interpretation Comments POC-GLUCOSE METER 218 mg/dL 70-110 H : TESTED A T [facility] 6720 (BEAKER) (test code = [facility], 153) 97476: Rn Lab/Techni herson ID = [id number] for Me ndekrystina, Tarah POCT-GLUCOSE [id number] 08:19:00 Test Item Value Reference Range Interpretation Comments POC-GLUCOSE METER 246 mg/dL 70-110 H : TESTED A T [facility] 6720 (BEAKER) (test code = [facility], 153) 16928: Rn Lab/Techni herson ID = [id number] for Me ndez, Tarah CBC W/PLT COUNT & AUTO [id number] 06:06:00 Test Item Value Reference Range Interpretation [...] PERCENT (BEAKER) (test code = 2801) POCT-GLUCOSE [id number] 21:12:00 Test Item Value Reference Range Interpretation Comments POC-GLUCOSE METER 186 mg/dL 70-110 H : TESTED A T [facility] 6720 (BEAKER) (test code = [facility], 153) 57464: Rn Lab/Techni herson ID = [id number] for NILDA LLAMAS POCT-GLUCOSE [id number] 15:54:00 Test Item Value Reference Range Interpretation Comments POC-GLUCOSE METER 185 mg/dL 70-110 H : TESTED A T [facility] 6720 (BEAKER) (test code = [facility], 153) 98514: Rn Lab/Techni herson ID = [id number] for GONZÁLEZ JC POCT-GLUCOSE [id number] 11:38:00 Test Item Value Reference Range Interpretation Comments POC-GLUCOSE METER 214 mg/dL 70-110 H : TESTED A T [facility] 6720 (BEAKER) (test code = [facility], 153) 69154: Rn Lab/Techni herson ID = [id number] for GONZÁLEZ JC POCT-GLUCOSE [id number] 08:01:00 Test Item Value Reference Range Interpretation Comments POC-GLUCOSE METER 148 mg/dL 70-110 H : TESTED A T [facility] [address] (BEAKER) (test code = [facility], 153) 49082: Rn Lab/Techni herson ID = [id number] for GONZÁLEZ JC CBC W/PLT COUNT & AUTO [id number] 04:50:00 Test Item Value Reference Range Interpretation [...] PERCENT (BEAKER) (test code = 2801) POCT-GLUCOSE [id number] 21:14:00 Test Item Value Reference Range Interpretation Comments POC-GLUCOSE METER 192 mg/dL 70-110 H : TESTED A T [facility] 6720 (BEAKER) (test code = [facility], 153) 55229: Rn Lab/Techni herson ID = [id number] for CAIT VELA POCT-GLUCOSE [id number] 16:33:00 Test Item Value Reference Range Interpretation Comments POC-GLUCOSE METER 141 mg/dL 70-110 H : TESTED A T [facility] 6720 (BEAKER) (test code = [facility], 1538) 99781: Rn Lab/Techni herson ID = [id number] for ARISTEO QUEEN POCT-GLUCOSE [id number] 11:49:00 Test Item Value Reference Range Interpretation Comments POC-GLUCOSE METER 134 mg/dL 70-110 H : TESTED [facility] T [facility] 6720 (BEAKER) (test code = [place], 1538) 71322: Rn Lab/Techni herson ID = [id number] for ARISTEO QUEEN PROTHROMBIN [id number] 09:36:00 Test Item Value Reference Range Interpretation [...] S NOT APPLICABLE FOR DIALYSIS PATIEN TS. Rn Lab ID - NTPPOCT-GLUCOSE [id number] 08:02:00 Test Item Value Reference Range Interpretation Comments POC-GLUCOSE METER 122 mg/dL 70-110 H : TESTED A T [facility] 6720 (BEAKER) (test code = [facility], 153) 67597: Rn Lab/Techni herson ID = [id number] for ARISTEO QUEEN POCT-GLUCOSE [id number] 22:30:00 Test Item Value Reference Range Interpretation Comments POC-GLUCOSE METER 122 mg/dL 70-110 H : TESTED A T [facility] 6720 (BEAKER) (test code = [facility], 153) 49341: Rn Lab/Techni herson ID = [id number] for MARILU ODONNELL POCT-GLUCOSE [id number] 15:33:00 Test Item Value Reference Range Interpretation Comments POC-GLUCOSE METER 200 mg/dL 70-110 H : TESTED A T [facility] 6720 (BEAKER) (test code = [facility], 153) 81612: Rn Lab/Techni herson ID = [id number] for ARISTEO QUEEN BASIC METABOLIC [id number] 12:06:00 Test Item Value Reference Range Interpretation [...] S NOT APPLICABLE FOR DIALYSIS PATIEN TS. Rn Lab ID - JORGE ALBERTO CPOCT-GLUCOSE [id number] 11:59:00 Test Item Value Reference Range Interpretation Comments POC-GLUCOSE METER 129 mg/dL 70-110 H : [facility] ([facility]ER[facility] (test code = RAKELSREE Ramsey [facility], 1538) 18114: Rn Lab/Techni herson ID = [id number] for ARISTEO QUEEN CBC (HEMOGRAM ONLY)2020-02-11 11:51:00 [...] 0-0 (BEAKER) (test code = 413) POCT-GLUCOSE [id number] 11:26:00 Test Item Value Reference Range Interpretation Comments POC-GLUCOSE METER 138 mg/dL 70-110 H : TESTED A T [facility] 6720 (BEAKER) (test code = [place], 1538) 77377: Rn Lab/Techni herson ID = [id number] for AN NOR ANNE BASIC METABOLIC [id number] 08:02:00 Test Item Value Reference Range Interpretation [...] S NOT APPLICABLE FOR DIALYSIS PATIEN TS. Rn Lab ID - JUN [facility]BC W/PLT COUNT & AUTO [id number] 08:00:00 Test Item Value Reference Range Interpretation [...] PERCENT (BEAKER) (test code = 2801) POCT-GLUCOSE [id number] 07:57:00 Test Item Value Reference Range Interpretation Comments POC-GLUCOSE METER 100 mg/dL 70-110 : TESTED A T [facility] 6720 (BEAKER) (test code = [place], 1538) 74434: Rn Lab/Techni herson ID = [id number] for ARISTEO QUEEN VITAMIN B12 AND [id number] 04:11:00 Test Item Value Reference Range Interpretation Comments VITAMIN B12 (BEAKER) (test code = 521 pg/mL 213-816 774) FOLATE (BEAKER) (test code = 362) 18.00 ng/mL >=7.00 Rn Lab ID - ATAASIIRON, TIBC, % SAT. (WITHOUT FERRITIN)2020-02-10 23:57:00 Test Item Value Reference Range Interpretation Comments IRON (BEAKER) (test code = 547) 24.0 ug/dL 40.0-160.0 L TOTAL IRON BINDING CAPACITY 253 ug/dL 250-450 (BEAKER) (test code = 769) IRON % SATURATION (2) (BEAKER) 9 % 20-55 L (test code = 2590) Rn Lab ID - FARHAT LPOCT-GLUCOSE [id number] 18:15:00 Test Item Value Reference Range Interpretation Comments POC-GLUCOSE METER 143 mg/dL 70-110 H : TESTED A T [facility] 6720 (BEAKER) (test code = [facility], 1538) 19426: Rn Lab/Techni herson ID = [id number] for DEMOND REYES POCT-GLUCOSE [id number] 11:36:00 Test Item Value Reference Range Interpretation Comments POC-GLUCOSE METER 181 mg/dL 70-110 H : TESTED A T [facility] 6720 (BEAKER) (test code = [facility], 1538) 60160: Rn Lab/Techni herson ID = [id number] for JEANINE RIOJAS SARS-COV2/RT-PCR ([facility])2020-02-07 12:36:00 Test Item Value Reference Range Interpretation Comments SARS-COV2/RT-PCR (test Negative Not Detected, Negative, code = 5383880) See external report for linked test SARS-COV-[address] [facility] NOE (test code = 7060745) Negative result for this test determines that [...] 564(g) of the Act.Fact Sheet for Healthcare Providers:https://www.[employer]/sites/default/files/product/documents/Fact_Shee p_VS_Aelspbgic_Lash_CUZI-MjM-3.pdfFact Sheet for Healthcare Patients:https://www.[employer]/sites/default/files/product/ documents/Hcck_Dqfey_Ghtcslxt_Woal_XANU-TtJ-0.pdfPerforming Laboratory:[facility], [place] [address]ODUAT METABOLIC PANEL 2020-02-06 12:10:00 Test Item Value [...] S NOT APPLICABLE FOR DIALYSIS PATIEN TS. Rn Lab ID - [id number] 11:50:00 Test Item Value Reference Range Interpretation Comments HEMOGLOBIN (BEAKER) (test code = 12.0 GM/DL 11.2-15.7 410) Rn Lab ID - [id number] CULTURE + SMEAR (NON-SPUTUM)2020-01-26 [...] code = 994) seen FUNGUS CULTURE + [id number] 15:27:00 Test Item Value Reference Range Interpretation Comments CULTURE (BEAKER) (test No fungus isolated in code = 1095) 28 days FUNGUS SMEAR (BEAKER) <1+ budding yeast (test code = 1406) FUNGUS CULTURE + [id number] 16:04:00 Test Item Value Reference Range Interpretation Comments CULTURE (BEAKER) (test No fungus isolated in code = 1095) 28 days FUNGUS SMEAR (BEAKER) No fungi seen (test code = 1406) FUNGUS CULTURE + [id number] 16:21:00 Test Item Value Reference Range Interpretation Comments CULTURE (BEAKER) (test No fungus isolated in code = 1095) 28 days FUNGUS SMEAR (BEAKER) No fungi seen (test code = 1406) POCT-GLUCOSE [id number] 11:49:00 Test Item Value Reference Range Interpretation Comments POC-GLUCOSE METER 94 mg/dL 70-110 : TESTED A T [facility] 7200 (BEAKER) (test code = [facility], 1538) [place] [address] 0: Rn Lab/Techni herson ID = [id number] for KAROLINA GRAYCEL FRAN POCT-GLUCOSE [id number] 07:08:00 Test Item Value Reference Range Interpretation Comments POC-GLUCOSE METER 87 mg/dL 70-110 : TESTED A T [facility] 7200 (BEAKER) (test code = [facility], 1538) [place] [address] 0: Rn Lab/Techni herson ID = [id number] for POLLO CABALLERO POCT-GLUCOSE [id number] 00:12:00 Test Item Value Reference Range Interpretation Comments POC-GLUCOSE METER 111 mg/dL 70-110 H : TESTED A T [facility] 7200 (BEAKER) (test code [facility] [facility], = 1538) [place] [address] 0: Rn Lab/Techni herson ID = [id number] for POLLO CABALLERO POCT-GLUCOSE [id number] 16:26:00 Test Item Value Reference Range Interpretation Comments POC-GLUCOSE METER 146 mg/dL 70-110 H : TESTED A T [facility] 7200 (BEAKER) (test code [facility] [facility], = 1538) [place] [address] 0: Rn Lab/Techni herson ID = [id number] for CASEY ANO, JUCEL FRAN PV, VENOUS DOPPLER ARM, [id number] 13:49:00Reason for exam:->LUE pain and nodule, r/o [...] MDReport Verified Date/Time: 12/30/2019 13:49:05 Reading Location: [facility] B1 C013 CT Body Reading RoomAddendum EndsFINAL REPORT Doppler [...] MDReport Verified Date/Time: 12/29/2019 18:22:22 Reading Location: [address] Consult Reading Room POCT-GLUCOSE [id number] 12:31:00 Test Item Value Reference Range Interpretation Comments POC-GLUCOSE METER 122 mg/dL 70-110 H : TESTED A T [facility] 7200 (BEAKER) (test code [place] [facility], = 1538) [place] [address] 0: Rn Lab/Techni herson ID = [id number] for JAUN CAMARGO POCT-GLUCOSE [id number] 06:42:00 Test Item Value Reference Range Interpretation Comments POC-GLUCOSE METER 96 mg/dL 70-110 : TESTED A T [facility] 7200 (BEAKER) (test code = [facility], 1538) [place] [address] 0: Rn Lab/Techni herson ID = [id number] for RAMIRO PRESLEY POCT-GLUCOSE [id number] 20:26:00 Test Item Value Reference Range Interpretation Comments POC-GLUCOSE METER 164 mg/dL 70-110 H : TESTED A T [facility] 7200 (BEAKER) (test code [place] [facility], = 1538) [place] [address] 0: Rn Lab/Techni herson ID = [id number] for POLLO CABALLERO POCT-GLUCOSE [id number] 16:59:00 Test Item Value Reference Range Interpretation Comments POC-GLUCOSE METER 199 mg/dL 70-110 H : TESTED A T [facility] 7200 (BEAKER) (test code [place] E [facility] A, = 1538) [place] 7[address] 0: Rn Lab/Techni herson ID = [id number] for KALYN MARTINEZ POCT-GLUCOSE [id number] 11:17:00 Test Item Value Reference Range Interpretation Comments POC-GLUCOSE METER 113 mg/dL 70-110 H : TESTED A T [facility] 7200 (BEAKER) (test code [place] E [facility]LD[facility] A, = 1538) [place] [address] 0: Rn Lab/Techni herson ID = [id number] for WANDA MARTINEZIETA POCT-GLUCOSE [id number] 06:28:00 Test Item Value Reference Range Interpretation Comments POC-GLUCOSE METER 107 mg/dL 70-110 : TESTED A T [facility] 7200 (BEAKER) (test code [facility] [facility], = 1538) [place] [address] 0: Rn Lab/Techni herson ID = [id number] for ROSY FAUST BASIC METABOLIC [id number] 05:30:00 Test Item Value Reference Range Interpretation [...] 9.4-12.3 L (test code = 754) POCT-GLUCOSE [id number] 20:59:00 Test Item Value Reference Range Interpretation Comments POC-GLUCOSE METER 173 mg/dL 70-110 H : TESTED A T [facility] 7200 (BEAKER) (test code [place] [facility], = 1538) [place] [address] 0: Rn Lab/Techni herson ID = [id number] for ROSY FAUST POCT-GLUCOSE [id number] 16:41:00 Test Item Value Reference Range Interpretation Comments POC-GLUCOSE METER 151 mg/dL 70-110 H : TESTED A T [facility] 7200 (BEAKER) (test code [place] [facility], = 1538) [place] [address] 0: Rn Lab/Techni herson ID = [id number] for JOHN ERA, AVIVA POCT-GLUCOSE [id number] 12:07:00 Test Item Value Reference Range Interpretation Comments POC-GLUCOSE METER 130 mg/dL 70-110 H : TESTED A T [facility] 7200 (BEAKER) (test code [place] [facility] A, = 1538) [place] [address] 0: Rn Lab/Techni herson ID = [id number] for JOHN ERA, AVIVA POCT-GLUCOSE [id number] 06:28:00 Test Item Value Reference Range Interpretation Comments POC-GLUCOSE METER 99 mg/dL 70-110 : TESTED A T [facility] 7200 (BEAKER) (test code = [facility], 1538) [place] [address] 0: Rn Lab/Techni herson ID = [id number] for BENNY , ROSY POCT-GLUCOSE [id number] 20:35:00 Test Item Value Reference Range Interpretation Comments POC-GLUCOSE METER 230 mg/dL 70-110 H : TESTED A T [facility] 7200 (BEAKER) (test code [facility] [facility], = 1538) [place] [address] 0: Rn Lab/Techni herson ID = [id number] for BENNY , ROSY POCT-GLUCOSE [id number] 16:19:00 Test Item Value Reference Range Interpretation Comments POC-GLUCOSE METER 184 mg/dL 70-110 H : TESTED A T [facility] 7200 (BEAKER) (test code [facility] [facility], = 1538) [place] [address] 0: Rn Lab/Techni herson ID = [id number] for JOHN ERA, AVIVA POCT-GLUCOSE [id number] 11:24:00 Test Item Value Reference Range Interpretation Comments POC-GLUCOSE METER 120 mg/dL 70-110 H : TESTED A T [facility] 7200 (BEAKER) (test code [facility] [facility], = 1538) [place] [address] 0: Rn Lab/Techni herson ID = [id number] for JOHN ERA, AVIVA POCT-GLUCOSE [id number] 06:15:00 Test Item Value Reference Range Interpretation Comments POC-GLUCOSE METER 80 mg/dL 70-110 : TESTED A T [facility] 7200 (BEAKER) (test code = [facility], 1538) [place] [address] 0: Rn Lab/Techni herson ID = [id number] for BC EDOUARD POCT-GLUCOSE [id number] 20:23:00 Test Item Value Reference Range Interpretation Comments POC-GLUCOSE METER 140 mg/dL 70-110 H : TESTED A T [facility] 7200 (BEAKER) (test code [place] [facility] A, = 1538) [place] [address] 0: Rn Lab/Techni herson ID = [id number] for BC EDOUARD POCT-GLUCOSE [id number] 16:13:00 Test Item Value Reference Range Interpretation Comments POC-GLUCOSE METER 163 mg/dL 70-110 H : TESTED A T [facility] 7200 (BEAKER) (test code [facility] E BLDG A, = 1538) [facility] 7703 0: Rn Lab/Techni herson ID = [id number] for WALDEMAR BAL COMPREHENSIVE METABOLIC [id number] 12:38:00 Test Item Value Reference Range Interpretation [...] PATIEN TS. CBC W/PLT COUNT & AUTO [id number] 12:19:00 Test Item Value Reference Range Interpretation [...] PERCENT (BEAKER) (test code = 2801) POCT-GLUCOSE [id number] 11:45:00 Test Item Value Reference Range Interpretation Comments POC-GLUCOSE METER 122 mg/dL 70-110 H : TESTED A T [facility] 7200 (BEAKER) (test code [facility] [facility], = 1538) [place] [address] 0: Rn Lab/Techni herson ID = [id number] for WALDEMAR BAL POCT-GLUCOSE [id number] 06:46:00 Test Item Value Reference Range Interpretation Comments POC-GLUCOSE METER 105 mg/dL 70-110 : TESTED A T [facility] 7200 (BEAKER) (test code [place] [facility] A, = 1538) [place] [address] 0: Rn Lab/Techni herson ID = [id number] for POLLO CABALLERO POCT-GLUCOSE [id number] 20:54:00 Test Item Value Reference Range Interpretation Comments POC-GLUCOSE METER 159 mg/dL 70-110 H : TESTED A T [facility] 7200 (BEAKER) (test code [place] [facility] A, = 1538) [place] [address] 0: Rn Lab/Techni herson ID = [id number] for POLLO CABALLERO POCT-GLUCOSE [id number] 17:04:00 Test Item Value Reference Range Interpretation Comments POC-GLUCOSE METER 133 mg/dL 70-110 H : TESTED A T [facility] 7200 (BEAKER) (test code [facility] [facility] A, = 1538) [place] [address] 0: Rn Lab/Techni herson ID = [id number] for OMIW SHANNAN, SYRIETA POCT-GLUCOSE [id number] 11:21:00 Test Item Value Reference Range Interpretation Comments POC-GLUCOSE METER 124 mg/dL 70-110 H : TESTED A T [facility] 7200 (BEAKER) (test code [place] [facility] A, = 1538) [place] [address] 0: Rn Lab/Techni herson ID = [id number] for OMIW SHANNAN, SYRIETA POCT-GLUCOSE [id number] 06:43:00 Test Item Value Reference Range Interpretation Comments POC-GLUCOSE METER 90 mg/dL 70-110 : TESTED A T [facility] 7200 (BEAKER) (test code = [facility], 1538) [place] 7[address] 0: Rn Lab/Techni herson ID = [id number] for POLLO CABALLERO POCT-GLUCOSE [id number] 20:55:00 Test Item Value Reference Range Interpretation Comments POC-GLUCOSE METER 169 mg/dL 70-110 H : TESTED A T [facility] 7200 (BEAKER) (test code [facility] [facility] A, = 1538) [place] [address] 0: Rn Lab/Techni herson ID = [id number] for POLLO CABALLERO POCT-GLUCOSE [id number] 16:35:00 Test Item Value Reference Range Interpretation Comments POC-GLUCOSE METER 164 mg/dL 70-110 H : TESTED A T [facility] 7200 (BEAKER) (test code [facility] [facility] A, = 1538) [place] [address] 0: Rn Lab/Techni herson ID = [id number] for WALDEMAR BAL POCT-GLUCOSE [id number] 11:25:00 Test Item Value Reference Range Interpretation Comments POC-GLUCOSE METER 174 mg/dL 70-110 H : TESTED A T [facility] 7200 (BEAKER) (test code [facility] [facility] A, = 1538) [place] [address] 0: Rn Lab/Techni herson ID = [id number] for WALDEMAR BAL POCT-GLUCOSE [id number] 06:32:00 Test Item Value Reference Range Interpretation Comments POC-GLUCOSE METER 108 mg/dL 70-110 : TESTED A T [facility] 7200 (BEAKER) (test code [facility] [facility] A, = 1538) [place] [address] 0: Rn Lab/Techni herson ID = [id number] for BENNY , ROSY POCT-GLUCOSE [id number] 20:44:00 Test Item Value Reference Range Interpretation Comments POC-GLUCOSE METER 194 mg/dL 70-110 H : TESTED A T [facility] 7200 (BEAKER) (test code [facility] [facility] A, = 1538) [place] [address] 0: Rn Lab/Techni herson ID = [id number] for BENNY , ROSY POCT-GLUCOSE [id number] 16:59:00 Test Item Value Reference Range Interpretation Comments POC-GLUCOSE METER 156 mg/dL 70-110 H : TESTED A T [facility] 7200 (BEAKER) (test code [facility] [facility] A, = 1538) [place] [address] 0: Rn Lab/Techni herson ID = [id number] for RACHELLE GRAY FRAN POCT-GLUCOSE [id number] 11:42:00 Test Item Value Reference Range Interpretation Comments POC-GLUCOSE METER 181 mg/dL 70-110 H : TESTED A T [facility] 7200 (BEAKER) (test code [facility] A, = 1538) [place] [address] 0: Rn Lab/Techni herson ID = [id number] for KAROLINA GRAYCEL FRAN POCT-GLUCOSE [id number] 06:10:00 Test Item Value Reference Range Interpretation Comments POC-GLUCOSE METER 83 mg/dL 70-110 : TESTED A T [facility] 7200 (BEAKER) (test code = [facility], 1538) [place] [address] 0: Rn Lab/Techni herson ID = [id number] for BENNY BERENICEJA POCT-GLUCOSE [id number] 20:42:00 Test Item Value Reference Range Interpretation Comments POC-GLUCOSE METER 221 mg/dL 70-110 H : TESTED A T [facility] 7200 (BEAKER) (test code [facility] [facility] A, = 1538) [place] [address] 0: Rn Lab/Techni herson ID = [id number] for BENNY , ROSY ANAEROBIC [id number] 18:21:00 Test Item Value Reference Range Interpretation Comments CULTURE (BEAKER) (test No anaerobes isolated code = 1095) POCT-GLUCOSE [id number] 16:23:00 Test Item Value Reference Range Interpretation Comments POC-GLUCOSE METER 193 mg/dL 70-110 H : TESTED A T [facility] 7200 (BEAKER) (test code [place] [facility]LD[facility] A, = 1538) [place] [address] 0: Rn Lab/Techni herson ID = [id number] for JOHN ERA, AVIVA POCT-GLUCOSE [id number] 11:54:00 Test Item Value Reference Range Interpretation Comments POC-GLUCOSE METER 117 mg/dL 70-110 H : TESTED A T [facility] 7200 (BEAKER) (test code [place] [facility]LD[facility] A, = 1538) [place] [address] 0: Rn Lab/Techni herson ID = [id number] for JOHN ERA, AVIVA POCT-GLUCOSE [id number] 06:35:00 Test Item Value Reference Range Interpretation Comments POC-GLUCOSE METER 90 mg/dL 70-110 : TESTED A T [facility] 7200 (BEAKER) (test code = [facility], 1538) [facility] 7703 0: Rn Lab/Techni herson ID = [id number] for POLLO CABALLERO BASIC METABOLIC [id number] 05:02:00 Test Item Value Reference Range Interpretation [...] fL 9.0-12.3 (test code = 754) POCT-GLUCOSE [id number] 20:52:00 Test Item Value Reference Range Interpretation Comments POC-GLUCOSE METER 164 mg/dL 70-110 H : TESTED A T [facility] 7200 (BEAKER) (test code [facility] E BLD[facility] A, = 1538) [place] [address] 0: Rn Lab/Techni herson ID = [id number] for NATHAN EDWINADARWIN SorianoW POCT-GLUCOSE [id number] 15:52:00 Test Item Value Reference Range Interpretation Comments POC-GLUCOSE METER 142 mg/dL 70-110 H : TESTED A T [facility] 7200 (BEAKER) (test code [facility] E [facility]LD[facility] A, = 1538) [place] [address] 0: Rn Lab/Techni herson ID = [id number] for OMIW SHANNAN, SYRIETA POCT-GLUCOSE [id number] 11:54:00 Test Item Value Reference Range Interpretation Comments POC-GLUCOSE METER 153 mg/dL 70-110 H : TESTED A T [facility] 7200 (BEAKER) (test code [facility] E BLDG A, = 1538) [place] [address] 0: Rn Lab/Techni herson ID = [id number] for OMIW SHANNAN, SYRIETA POCT-GLUCOSE [id number] 06:30:00 Test Item Value Reference Range Interpretation Comments POC-GLUCOSE METER 95 mg/dL 70-110 : TESTED A T [facility] 7200 (BEAKER) (test code = [facility], 1538) [place] [address] 0: Rn Lab/Techni herson ID = [id number] for NATHAN EDWINA, POLLO POCT-GLUCOSE [id number] 20:31:00 Test Item Value Reference Range Interpretation Comments POC-GLUCOSE METER 211 mg/dL 70-110 H : TESTED A T [facility] 7200 (BEAKER) (test code [place] E BLD[facility] A, = 1538) [place] [address] 0: Rn Lab/Techni herson ID = [id number] for POLLO CABALLERO POCT-GLUCOSE [id number] 16:40:00 Test Item Value Reference Range Interpretation Comments POC-GLUCOSE METER 184 mg/dL 70-110 H : TESTED A T [facility] 7200 (BEAKER) (test code [place] E BLD[facility] A, = 1538) [place] [address] 0: Rn Lab/Techni herson ID = [id number] for IJEOMA CACERES POCT-GLUCOSE [id number] 12:38:00 Test Item Value Reference Range Interpretation Comments POC-GLUCOSE METER 102 mg/dL 70-110 : TESTED A T [facility] 7200 (BEAKER) (test code [place] E BLD[facility] A, = 1538) [place] [address] 0: Rn Lab/Techni herson ID = [id number] for RUSSELL CADENAA POCT-GLUCOSE [id number] 06:36:00 Test Item Value Reference Range Interpretation Comments POC-GLUCOSE METER 107 mg/dL 70-110 : TESTED A T [facility] 7200 (BEAKER) (test code [place] E BLD[facility] A, = 1538) [place] [address] 0: Rn Lab/Techni herson ID = [id number] for POLLO CABALLERO POCT-GLUCOSE [id number] 21:08:00 Test Item Value Reference Range Interpretation Comments POC-GLUCOSE METER 189 mg/dL 70-110 H : TESTED A T [facility] 7200 (BEAKER) (test code [place] E BLD[facility] A, = 1538) [place] [address] 0: Rn Lab/Techni herson ID = [id number] for EHSAN ARROYOA POCT-GLUCOSE [id number] 16:19:00 Test Item Value Reference Range Interpretation Comments POC-GLUCOSE METER 194 mg/dL 70-110 H : TESTED A T [facility] 7200 (BEAKER) (test code [place] E BLDG A, = 1538) [place] [address] 0: Rn Lab/Techni herson ID = [id number] for SUSHANT MARTINEZA POCT-GLUCOSE [id number] 12:19:00 Test Item Value Reference Range Interpretation Comments POC-GLUCOSE METER 136 mg/dL 70-110 H : TESTED A T [facility] 7200 (BEAKER) (test code MADALYN Combs BLDG A, = 1538) [place] [address] 0: Rn Lab/Techni herson ID = [id number] for SUSHANT MARTINEZA POCT-GLUCOSE [id number] 06:29:00 Test Item Value Reference Range Interpretation Comments POC-GLUCOSE METER 74 mg/dL 70-110 : TESTED A T [facility] 7200 (BEAKER) (test code = [facility], 1538) [place] [address] 0: Rn Lab/Techni herson ID = [id number] for BC EDOUARD COMPREHENSIVE METABOLIC [id number] 05:45:00 Test Item Value Reference Range Interpretation [...] S NOT APPLICABLE FOR DIALYSIS PATIEN KRISTAL. [id number] 05:45:00 Test Item Value Reference Range Interpretation Comments MAGNESIUM (BEAKER) (test code = 2.0 mg/dL 1.6-2.6 627) CBC W/PLT COUNT & AUTO [id number] 05:28:00 Test Item Value Reference Range Interpretation [...] PERCENT (BEAKER) (test code = 2801) POCT-GLUCOSE [id number] 21:03:00 Test Item Value Reference Range Interpretation Comments POC-GLUCOSE METER 188 mg/dL 70-110 H : TESTED A T [facility] 7200 (BEAKER) (test code [place] E BLDG A, = 1538) [facility] 7703 0: Rn Lab/Techni herson ID = [id number] for BC EDOUARD POCT-GLUCOSE [id number] 17:00:00 Test Item Value Reference Range Interpretation Comments POC-GLUCOSE METER 136 mg/dL 70-110 H : TESTED A T [facility] 7200 (BEAKER) (test code [place] E BLDG A, = 1538) [facility] 7703 0: Rn Lab/Techni herson ID = [id number] for LEENA MALDONADO CHIOMA POCT-GLUCOSE [id number] 12:08:00 Test Item Value Reference Range Interpretation Comments POC-GLUCOSE METER 115 mg/dL 70-110 H : TESTED A T [facility] 6720 (BEAKER) (test code = LOREE Ramsey [facility], 153) [address]: Rn Lab/Techni herson ID = [id number] for [place] LLIAMS, TYNEKA POCT-GLUCOSE [id number] 07:44:00 Test Item Value Reference Range Interpretation Comments POC-GLUCOSE METER 74 mg/dL 70-110 : TESTED A T [facility] 6720 (BEAKER) (test code = LOREE Ramsey [facility], 153) 417[address]: Rn Lab/Techni herson ID = [id number] for WILL IAMS, TYNEKA [id number] 07:37:00 Test Item Value Reference Range Interpretation Comments MAGNESIUM (BEAKER) (test code = 2.0 mg/dL 1.6-2.6 627) Rn Lab ID - EMERSONBASIC METABOLIC [id number] 07:37:00 Test Item Value Reference Range Interpretation [...] S NOT APPLICABLE FOR DIALYSIS PATIEN TS. Rn Lab ID - [id number] (HEMOGRAM ONLY)2019-12-18 07:02:00 Test [...] 0-0 (BEAKER) (test code = 413) POCT-GLUCOSE [id number] 21:19:00 Test Item Value Reference Range Interpretation Comments POC-GLUCOSE METER 190 mg/dL 70-110 H : TESTED A T [facility] 6720 (BEAKER) (test code = [facility], 153) 415[address]: Rn Lab/Techni herson ID = [id number] for Barb Martins POCT-GLUCOSE [id number] 18:00:00 Test Item Value Reference Range Interpretation Comments POC-GLUCOSE METER 140 mg/dL 70-110 H : TESTED A T [facility] 6720 (BEAKER) (test code = [facility], 1538) 13777: Rn Lab/Techni herson ID = [id number] for [place] LLIAMS, TYNEKA POCT-GLUCOSE [id number] 11:50:00 Test Item Value Reference Range Interpretation Comments POC-GLUCOSE METER 136 mg/dL 70-110 H : TESTED A T [facility] 6720 (BEAKER) (test code = [facility], 153) 060[address]: Rn Lab/Techni herson ID = [id number] for [place] LLIAMS, TYNEKA POCT-GLUCOSE [id number] 07:40:00 Test Item Value Reference Range Interpretation Comments POC-GLUCOSE METER 82 mg/dL 70-110 : TESTED A T [facility] 6720 (BEAKER) (test code = [facility], 153) 73490: Rn Lab/Techni herson ID = [id number] for WILL IAMS, TYNEKA [id number] 06:10:00 Test Item Value Reference Range Interpretation Comments MAGNESIUM (BEAKER) (test code = 2.2 mg/dL 1.6-2.6 627) Rn Lab ID - BSBASIC METABOLIC [id number] 06:10:00 Test Item Value Reference Range Interpretation [...] S NOT APPLICABLE FOR DIALYSIS PATIEN TS. Rn Lab ID - BSCBC (HEMOGRAM ONLY)2019-12-17 05:34:00 Test [...] 0-0 (BEAKER) (test code = 413) POCT-GLUCOSE [id number] 21:02:00 Test Item Value Reference Range Interpretation Comments POC-GLUCOSE METER 153 mg/dL 70-110 H : TESTED A T [facility] 6720 (BEAKER) (test code = LOREE Ramsey [facility], 1538) 06049: Rn Lab/Techni herson ID = [id number] for PREETI WYATT POCT-GLUCOSE [id number] 16:46:00 Test Item Value Reference Range Interpretation Comments POC-GLUCOSE METER 155 mg/dL 70-110 H : TESTED A T [facility] 6720 (BEAKER) (test code = LOREE Ramsey [facility], 1538) 18866: Rn Lab/Techni herson ID = [id number] for YADI KU RAD, CHEST, 1 VIEW, NON [id number] 15:53:00Reason for exam:->RIGHT PICC LINE TIP VERIFICATIONShould [...] MDReport Verified Date/Time: 12/16/2019 15:53:59 Reading Location: [facility] Radiology Reading Room TISSUE [id number] 13:27:00Surgical Pathology Report Case: [id number] Authorizing Provider: Gabriel Stovall DPM Collected: 12/02/2019 [...] GANGRENOUS CHANGES Signing Pathologist Direct Phone Line: [phone] signed by Cassia Xiao MD on 12/16/2019 at 1:27 PMSlides for microscopic examination are received on 12/08/2019.MO/[id number] X 2Gangrene of right foot ([facility]) [I96] [id number] [id number]. Toe, rightB. Foot, rightC. Foot, rightA. Received [...] affected bone is red-pink, trabeculated and firm. Manager Document Control sectionsare submitted as follows:Section codeA1-skin and soft [...] cut surface is shabazz-yellow, trabeculated and firm. Manager Document Control sections are submitted in C1-C2 following decalcification.SHARON Leon (ASCP)manager-C. The samples show variable amounts of gangrenous necrosis. In the C-sample, in slide C-1, there is prominent associated acute osteomyelitis in the C-1 slide. Some articular cartilage does not show significant inflammation.POCT-GLUCOSE [id number] 12:00:00 Test Item Value Reference Range Interpretation Comments POC-GLUCOSE METER 122 mg/dL 70-110 H : TESTED Bo Arthur [facility] 6720 (BEAKER) (test code = [place] [facility] [place], 1538) [address]: Rn Lab/Techni herson ID = [id number] for HU NTER, HIWITHA [id number] 07:46:00 Test Item Value Reference Range Interpretation Comments MAGNESIUM (BEAKER) (test code = 2.2 mg/dL 1.6-2.6 627) Rn Lab ID - ANGELINA FBASIC METABOLIC [id number] 07:46:00 Test Item Value Reference Range Interpretation [...] S NOT APPLICABLE FOR DIALYSIS PATIEN TS. Rn Lab ID - ANGELINA FCBC (HEMOGRAM ONLY)2019-12-16 07:16:00 [...] 0-0 (BEAKER) (test code = 413) POCT-GLUCOSE [id number] 07:02:00 Test Item Value Reference Range Interpretation Comments POC-GLUCOSE METER 99 mg/dL 70-110 : TESTED A T [facility] 6720 (BEAKER) (test code = [facility], 1538) 33729: Rn Lab/Techni herson ID = [id number] for YADI SANDERSON POCT-GLUCOSE [id number] 21:27:00 Test Item Value Reference Range Interpretation Comments POC-GLUCOSE METER 287 mg/dL 70-110 H : TESTED A T [facility] 6720 (BEAKER) (test code = [facility], 1538) 05575: Rn Lab/Techni herson ID = [id number] for PREETI WYATT TISSUE [id number] 18:37:00Surgical Pathology Report Case: [id number] Authorizing Provider: Gabriel Stoavll DPM Collected: 12/05/2019 01:01 PM Ordering Location: [...] ACUTE OSTEOMYELITIS Signing Pathologist Direct Phone Line: [phone], [phone]-chxvwef surgical wound, initial encounter [[id number]]27399, 98937, 42958, [id number], rightReceived in formalin labeled with the patient's [...] affected bone is shabazz-yellow, trabeculated and firm. Manager Document Control sections are submitted as follows:Section codeA1-lesion and skin and soft tissue margin en ypxzW8-G7-qzmq margin following decalcificationA4-skin lesionA5-skin lesion and underlying affected bone following decalcificationSHARON Leon ([facility])cmPerformed.POCT-GLUCOSE METER 2019-12-15 16:55:00 Test Item Value Reference Range Interpretation Comments POC-GLUCOSE METER 149 mg/dL 70-110 H : TESTED A T [facility] 6720 (BEAKER) (test code = appweevr [facility], 1538) 81082: Rn Lab/Techni herson ID = [id number] for PAVAN ZUÑIGA POCT-GLUCOSE [id number] 11:57:00 Test Item Value Reference Range Interpretation Comments POC-GLUCOSE METER 251 mg/dL 70-110 H : TESTED A T [facility] 6720 (BEAKER) (test code = appweevr [facility], 1538) 58590: Rn Lab/Techni herson ID = [id number] for YADI KU SURGICALLY OBTAINED CULTURE + GRAM [id number] 10:43:00 Test Item Value Reference Range Interpretation Comments CULTURE (BEAKER) (test No growth code = 1095) GRAM STAIN RESULT <1+ White blood cells (BEAKER) (test code = seen 1123) GRAM STAIN RESULT No organisms seen (BEAKER) (test code = 91683) POCT-GLUCOSE [id number] 07:10:00 Test Item Value Reference Range Interpretation Comments POC-GLUCOSE METER 130 mg/dL 70-110 H : TESTED Bo T [facility] 6720 (BEAKER) (test code = [place], 1538) 94348: Rn Lab/Techni herson ID = [id number] for YADI KU [id number] 06:12:00 Test Item Value Reference Range Interpretation Comments MAGNESIUM (BEAKER) (test code = 2.3 mg/dL 1.6-2.6 627) Rn Lab ID - LZAMICHI LBASIC METABOLIC [id number] 06:12:00 Test Item Value Reference Range Interpretation [...] S NOT APPLICABLE FOR DIALYSIS PATIEN TS. Rn Lab ID - PIAYA LCBC (HEMOGRAM ONLY)2019-12-15 05:22:00 [...] 0-0 (BEAKER) (test code = 413) POCT-GLUCOSE [id number] 21:27:00 Test Item Value Reference Range Interpretation Comments POC-GLUCOSE METER 225 mg/dL 70-110 H : TESTED A T [facility] 6720 ([facility]) (test code = [facility], [facility]) 43819: Rn Lab/Techni herson ID = [id number] for DA DELMI BIRAHIMENZO POCT-GLUCOSE [id number] 17:30:00 Test Item Value Reference Range Interpretation Comments POC-GLUCOSE METER 219 mg/dL 70-110 H : TESTED A T [facility] 6720 (BEAKER) (test code = [facility], 153) 96843: Rn Lab/Techni herson ID = [id number] for SA NCHEZ, KARY POCT-GLUCOSE [id number] 12:19:00 Test Item Value Reference Range Interpretation Comments POC-GLUCOSE METER 184 mg/dL 70-110 H : TESTED A T [facility] 6720 (BEAKER) (test code = [facility], 153) 54370: Rn Lab/Techni herson ID = [id number] for SA NCHEZ, KARY POCT-GLUCOSE [id number] 08:06:00 Test Item Value Reference Range Interpretation Comments POC-GLUCOSE METER 126 mg/dL 70-110 H : [facility] (test code = [facility], 153) 10348: Rn Lab/Techni herson ID = [id number] for KARY MAC [id number] 06:11:00 Test Item Value Reference Range Interpretation Comments MAGNESIUM (BEAKER) (test code = 2.3 mg/dL 1.6-2.6 627) Rn Lab ID - FARHAT LBASIC METABOLIC [id number] 06:11:00 Test Item Value Reference Range Interpretation [...] S NOT APPLICABLE FOR DIALYSIS PATIEN TS. Rn Lab ID - FARHAT LCBC (HEMOGRAM ONLY)2019-12-14 05:21:00 [...] 0-0 (BEAKER) (test code = 413) POCT-GLUCOSE [id number] 21:54:00 Test Item Value Reference Range Interpretation Comments POC-GLUCOSE METER 240 mg/dL 70-110 H : TESTED A T [facility] 6720 (BEAKER) (test code = [facility], 153) 89941: Rn Lab/Techni herson ID = [id number] for GREG BARBOSA POCT-GLUCOSE [id number] 17:05:00 Test Item Value Reference Range Interpretation Comments POC-GLUCOSE METER 145 mg/dL 70-110 H : TESTED A T [facility] 6720 (BEAKER) (test code = [facility], 153) 74297: Rn Lab/Techni herson ID = [id number] for Do minguez, Abner SPIN/CONCENTRATION [id number] 12:25:00 Test Item Value Reference Range Interpretation Comments CONCENTRATION CHARGED (BEAKER) (test Done code = 2657) POCT-GLUCOSE [id number] 11:27:00 Test Item Value Reference Range Interpretation Comments POC-GLUCOSE METER 294 mg/dL 70-110 H : TESTED A T [facility] 6720 (BEAKER) (test code = [facility], 153) 92984: Rn Lab/Techni herson ID = [id number] for Do minguez, Abner POCT-GLUCOSE [id number] 07:32:00 Test Item Value Reference Range Interpretation Comments POC-GLUCOSE METER 109 mg/dL 70-110 : TESTED A T [facility] 6720 (BEAKER) (test code = [facility], 1538) 69037: Rn Lab/Techni herson ID = [id number] for Do minguez, Abner CBC (HEMOGRAM ONLY)2019-12-13 [...] WBC 0-0 (BEAKER) (test code = 413) [id number] 05:43:00 Test Item Value Reference Range Interpretation Comments MAGNESIUM (BEAKER) (test code = 2.3 mg/dL 1.6-2.6 627) Rn Lab BRANDEN - LINDSAY WBASIC METABOLIC [id number] 05:43:00 Test Item Value Reference Range Interpretation [...] S NOT APPLICABLE FOR DIALYSIS PATIEN TS. Rn Lab ID - LINDSAY WPOCT-GLUCOSE [id number] 21:23:00 Test Item Value Reference Range Interpretation Comments POC-GLUCOSE METER 225 mg/dL 70-110 H : TESTED A T [facility] 6720 (BEAKER) (test code = [facility], 1538) 89232: Rn Lab/Techni herson ID = [id number] for CRESENCIO BAH POCT-GLUCOSE [id number] 17:01:00 Test Item Value Reference Range Interpretation Comments POC-GLUCOSE METER 199 mg/dL 70-110 H : TESTED A T [facility] 6720 (BEAKER) (test code = [facility] Sensing [employer]romagnetic Plus [facility], 1538) 60241: Rn Lab/Techni herson ID = [id number] for PAVAN ZUÑIGA POCT-GLUCOSE [id number] 12:55:00 Test Item Value Reference Range Interpretation Comments POC-GLUCOSE METER 148 mg/dL 70-110 H : TESTED A T [facility] 6720 (BEAKER) (test code = [facility] [employer] [facility], 1538) 65505: Rn Lab/Techni herson ID = [id number] for KYLER MOHAMUD POCT-GLUCOSE [id number] 08:06:00 Test Item Value Reference Range Interpretation Comments POC-GLUCOSE METER 179 mg/dL 70-110 H : TESTED A T [facility] 6720 (BEAKER) (test code = [facility] [employer] [facility], 1538) 87677: Rn Lab/Techni herson ID = [id number] for AMBIKA RTIN, PAVAN CBC (HEMOGRAM ONLY)2019-12-12 06:52:00 Test Item Value [...] WBC 0-0 (BEAKER) (test code = 413) [id number] 06:47:00 Test Item Value Reference Range Interpretation Comments MAGNESIUM (BEAKER) (test code = 2.3 mg/dL 1.6-2.6 627) Rn Lab ID - LABASIC METABOLIC [id number] 06:47:00 Test Item Value Reference Range Interpretation [...] S NOT APPLICABLE FOR DIALYSIS PATIEN TS. Rn Lab ID - LAPOCT-GLUCOSE [id number] 21:12:00 Test Item Value Reference Range Interpretation Comments POC-GLUCOSE METER 285 mg/dL 70-110 H : TESTED A T [facility] 6720 (BEAKER) (test code = [facility], 1538) 60371: Rn Lab/Techni herson ID = [id number] for PE RALES, CRESENCIO POCT-GLUCOSE [id number] 16:56:00 Test Item Value Reference Range Interpretation Comments POC-GLUCOSE METER 226 mg/dL 70-110 H : TESTED A T [facility] 6720 (BEAKER) (test code = [facility], 1538) 47091: Rn Lab/Techni herson ID = [id number] for WI LLIAMS, TYNEKA POCT-GLUCOSE [id number] 11:57:00 Test Item Value Reference Range Interpretation Comments POC-GLUCOSE METER 293 mg/dL 70-110 H : TESTED A T [facility] 6720 (BEAKER) (test code = [facility], 1538) 04466: Rn Lab/Techni herson ID = [id number] for [place] LLIAMS, TYNEKA POCT-GLUCOSE [id number] 07:36:00 Test Item Value Reference Range Interpretation Comments POC-GLUCOSE METER 152 mg/dL 70-110 H : TESTED A T [facility] 6720 (BEAKER) (test code = [facility], 1538) 50304: Rn Lab/Techni herson ID = [id number] for [place] LLIAMS, TYNEKA [id number] 06:31:00 Test Item Value Reference Range Interpretation Comments MAGNESIUM (BEAKER) 2.4 mg/dL 1.6-2.6 Specimen slightly (test code = 627) hemolyzed Rn Lab ID - FARHAT LBASIC METABOLIC [id number] 06:31:00 Test Item Value Reference Range Interpretation [...] S NOT APPLICABLE FOR DIALYSIS PATIEN TS. Rn Lab ID - PIAYA LCBC (HEMOGRAM ONLY)2019-12-11 05:58:00 [...] 0-0 (BEAKER) (test code = 413) POCT-GLUCOSE [id number] 21:34:00 Test Item Value Reference Range Interpretation Comments POC-GLUCOSE METER 290 mg/dL 70-110 H : TESTED A T [facility] 6720 (BEAKER) (test code = [facility], 1538) 43006: Rn Lab/Techni herson ID = [id number] for ZOILA GAMEZ POCT-GLUCOSE [id number] 16:49:00 Test Item Value Reference Range Interpretation Comments POC-GLUCOSE METER 247 mg/dL 70-110 H : TESTED A T [facility] 6720 (BEAKER) (test code = [facility], 1538) 41900: Rn Lab/Techni herson ID = [id number] for CHANDAN PADRON POCT-GLUCOSE [id number] 11:15:00 Test Item Value Reference Range Interpretation Comments POC-GLUCOSE METER 244 mg/dL 70-110 H : TESTED A T [facility] 6720 (BEAKER) (test code = [facility], 1538) 23579: Rn Lab/Techni herson ID = [id number] for CHANDAN PADRON [id number] 08:20:00 Test Item Value Reference Range Interpretation Comments MAGNESIUM (BEAKER) (test code = 2.4 mg/dL 1.6-2.6 627) Rn Lab ID - MINERVA BBASIC METABOLIC [id number] 08:20:00 Test Item Value Reference Range Interpretation [...] S NOT APPLICABLE FOR DIALYSIS PATIEN TS. Rn Lab ID - MINERVA BPOCT-GLUCOSE [id number] 07:50:00 Test Item Value Reference Range Interpretation Comments POC-GLUCOSE METER 239 mg/dL 70-110 H : TESTED A T [facility] 6720 (BEAKER) (test code = [place], 1538) 72446: Rn Lab/Techni herson ID = [id number] for CHANDAN PADRON CBC (HEMOGRAM ONLY)2019-12-10 07:07:00 [...] 0-0 (BEAKER) (test code = 413) POCT-GLUCOSE [id number] 21:25:00 Test Item Value Reference Range Interpretation Comments POC-GLUCOSE METER 248 mg/dL 70-110 H : TESTED A T [facility] 6720 (BEAKER) (test code = [facility] Braulio [place], 1538) 87464: Rn Lab/Techni herson ID = [id number] for Grace rom Barb POCT-GLUCOSE [id number] 17:15:00 Test Item Value Reference Range Interpretation Comments POC-GLUCOSE METER 221 mg/dL 70-110 H : TESTED A T [facility] 6720 (BEAKER) (test code = [facility], 1538) 17626: Rn Lab/Techni herson ID = [id number] for HU NTER, HIWITHA POCT-GLUCOSE [id number] 12:00:00 Test Item Value Reference Range Interpretation Comments POC-GLUCOSE METER 220 mg/dL 70-110 H : TESTED A T [facility] 6720 (BEAKER) (test code = [facility], 1538) 11840: Rn Lab/Techni herson ID = [id number] for HU NTER, HIWITHA [id number] 07:12:00 Test Item Value Reference Range Interpretation Comments MAGNESIUM (BEAKER) (test code = 2.4 mg/dL 1.6-2.6 627) Rn Lab ID Bryant ALFARO FBASIC METABOLIC [id number] 07:12:00 Test Item Value Reference Range Interpretation [...] S NOT APPLICABLE FOR DIALYSIS PATIEN TS. Rn Lab ID Bryant ALFARO FPOCT-GLUCOSE [id number] 07:04:00 Test Item Value Reference Range Interpretation Comments POC-GLUCOSE METER 176 mg/dL 70-110 H : TESTED A T [facility] 6720 (BEAKER) (test code = [place], 1538) 26362: Rn Lab/Techni herson ID = [id number] for YADI KU CBC (HEMOGRAM ONLY)2019-12-09 06:51:00 [...] 0-0 (BEAKER) (test code = 413) POCT-GLUCOSE [id number] 22:22:00 Test Item Value Reference Range Interpretation Comments POC-GLUCOSE METER 248 mg/dL 70-110 H : TESTED A T [facility] 6720 (BEAKER) (test code = [place] [facility], 1538) 05304: Rn Lab/Techni herson ID = [id number] for MARY ALEXANDRIA ZOILA BLOOD [id number] 21:00:00 Test Item Value Reference Range Interpretation Comments CULTURE (BEAKER) (test No growth in 5 days code = 1095) BLOOD [id number] 21:00:00 Test Item Value Reference Range Interpretation Comments CULTURE (BEAKER) (test No growth in 5 days code = 1095) ANAEROBIC [id number] 17:38:00 Test Item Value Reference Range Interpretation Comments CULTURE (BEAKER) (test No anaerobes isolated code = 1095) POCT-GLUCOSE [id number] 16:42:00 Test Item Value Reference Range Interpretation Comments POC-GLUCOSE METER 193 mg/dL 70-110 H : TESTED A T [facility] 6720 (BEAKER) (test code = [facility], 1538) 70780: Rn Lab/Techni herson ID = [id number] for TERELL GREENWOOD POCT-GLUCOSE [id number] 12:04:00 Test Item Value Reference Range Interpretation Comments POC-GLUCOSE METER 199 mg/dL 70-110 H : TESTED A T [facility] 6720 (BEAKER) (test code = [facility], 1538) 75645: Rn Lab/Techni herson ID = [id number] for DAMARIS GREENWOODNDKaris POCT-GLUCOSE [id number] 08:08:00 Test Item Value Reference Range Interpretation Comments POC-GLUCOSE METER 168 mg/dL 70-110 H : TESTED A T [facility] 6720 (BEAKER) (test code = [facility], 1538) 17335: Rn Lab/Techni herson ID = [id number] for TERELL GREENWOOD [id number] 07:27:00 Test Item Value Reference Range Interpretation Comments MAGNESIUM (BEAKER) (test code = 2.1 mg/dL 1.6-2.6 627) Rn Lab ID - JORGE ALBERTO CBASIC METABOLIC [id number] 07:27:00 Test Item Value Reference Range Interpretation [...] S NOT APPLICABLE FOR DIALYSIS PATIEN TS. Rn Lab ID - JORGE ALBERTO CCBC (HEMOGRAM ONLY)2019-12-08 [...] 0-0 (BEAKER) (test code = 413) POCT-GLUCOSE [id number] 21:57:00 Test Item Value Reference Range Interpretation Comments POC-GLUCOSE METER 215 mg/dL 70-110 H : TESTED A T [facility] 6720 (BEAKER) (test code = [place], 1538) 49361: Rn Lab/Techni herson ID = [id number] for BART LESLIE POCT-GLUCOSE [id number] 17:22:00 Test Item Value Reference Range Interpretation Comments POC-GLUCOSE METER 151 mg/dL 70-110 H : TESTED A T [facility] 6720 (BEAKER) (test code = [place], 1538) 08848: Rn Lab/Techni herson ID = [id number] for PAVAN ZUÑIGA OBTAINED CULTURE + GRAM [id number] 13:45:00 Test Item Value Reference Range Interpretation [...] No organisms seen (BEAKER) (test code = 351581) [id number] 06:32:00 Test Item Value Reference Range Interpretation Comments MAGNESIUM (BEAKER) 2.2 mg/dL 1.6-2.6 Specimen slightly (test code = 627) hemolyzed Rn Lab ID - PIAYA LBASIC METABOLIC [id number] 06:32:00 Test Item Value Reference Range Interpretation [...] S NOT APPLICABLE FOR DIALYSIS PATIEN TS. Rn Lab ID - PIAYA LCBC (HEMOGRAM ONLY)2019-12-07 05:39:00 [...] 0-0 (BEAKER) (test code = 413) POCT-GLUCOSE [id number] 21:14:00 Test Item Value Reference Range Interpretation Comments POC-GLUCOSE METER 165 mg/dL 70-110 H : TESTED A T [facility] 6720 (BEAKER) (test code = [place], 1538) 02699: Rn Lab/Techni herson ID = [id number] for GO NZALES IIILEILANI SPIN/CONCENTRATION [id number] 18:12:00 Test Item Value Reference Range Interpretation Comments CONCENTRATION CHARGED (BEAKER) (test Done code = 2657) POCT-GLUCOSE [id number] 16:48:00 Test Item Value Reference Range Interpretation Comments POC-GLUCOSE METER 155 mg/dL 70-110 H : TESTED A T [facility] 6720 (BEAKER) (test code = [facility], 1538) 33370: Rn Lab/Techni herson ID = [id number] for HU NTER, HIWITHA POCT-GLUCOSE [id number] 12:18:00 Test Item Value Reference Range Interpretation Comments POC-GLUCOSE METER 163 mg/dL 70-110 H : TESTED A T [facility] 6720 (BEAKER) (test code = [facility], 1538) 99624: Rn Lab/Techni herson ID = [id number] for MAXWELL RRIS, FINESSE POCT-GLUCOSE [id number] 07:11:00 Test Item Value Reference Range Interpretation Comments POC-GLUCOSE METER 106 mg/dL 70-110 : TESTED A T [facility] 6720 (BEAKER) (test code = [facility], 1538) 67550: Rn Lab/Techni herson ID = [id number] for HU NTER, HIWITHA BLOOD [id number] 06:00:00 Test Item Value Reference Range Interpretation Comments CULTURE (BEAKER) (test No growth in 5 days code = 1095) BLOOD [id number] 06:00:00 Test Item Value Reference Range Interpretation Comments CULTURE (BEAKER) (test No growth in 5 days code = 1095) [id number] 05:55:00 Test Item Value Reference Range Interpretation Comments MAGNESIUM (BEAKER) (test code = 1.8 mg/dL 1.6-2.6 627) Rn Lab ID - PALOMA MBASIC METABOLIC [id number] 05:55:00 Test Item Value Reference Range Interpretation [...] S NOT APPLICABLE FOR DIALYSIS PATIEN TS. Rn Lab ID - [place] [facility] [place] ONLY)2019-12-06 05:21:00 Test Item Value Reference [...] 0-0 (BEAKER) (test code = 413) POCT-GLUCOSE [id number] 21:16:00 Test Item Value Reference Range Interpretation Comments POC-GLUCOSE METER 158 mg/dL 70-110 H : TESTED A T [facility] 6720 (BEAKER) (test code = [place] [facility], 1538) 36951: Rn Lab/Techni herson ID = [id number] for LEILANI KOWALSKI III ANAEROBIC [id number] 17:15:00 Test Item Value Reference Range Interpretation Comments CULTURE (BEAKER) (test No anaerobes isolated code = 1095) POCT-GLUCOSE [id number] 16:48:00 Test Item Value Reference Range Interpretation Comments POC-GLUCOSE METER 127 mg/dL 70-110 H : TESTED A T [facility] 6720 (BEAKER) (test code = [place] Ramsey [facility], 1538) 45000: Rn Lab/Techni herson ID = [id number] for TERELL GREENWOOD, FOOT, MIN 3 VIEWS, [id number] 16:43:00Reason for exam:->s/p debridementFINAL REPORT TECHNIQUE: Frontal, [...] [place] Verified Date/Time: 12/05/2019 16:43:31 Reading Location: [address] Radiology Reading Room SURGICALLY OBTAINED CULTURE + GRAM [id number] 13:21:00 Test Item Value Reference Interpretation Comments [...] No organisms seen (BEAKER) (test code = 729913) POCT-GLUCOSE [id number] 13:08:00 Test Item Value Reference Range Interpretation Comments POC-GLUCOSE METER 127 mg/dL 70-110 H : TESTED A T [facility] 6720 (BEAKER) (test code = [facility], 1538) 18812: Rn Lab/Techni herson ID = [id number] for RENEE ROGEL POCT-GLUCOSE [id number] 08:14:00 Test Item Value Reference Range Interpretation Comments POC-GLUCOSE METER 163 mg/dL 70-110 H : TESTED A T [facility] 6720 (BEAKER) (test code = [facility], 1538) 10655: Rn Lab/Techni herson ID = [id number] for TERELL GREENWOOD [id number] 07:20:00 Test Item Value Reference Range Interpretation Comments MAGNESIUM (BEAKER) (test code = 1.8 mg/dL 1.6-2.6 627) Rn Lab ID - PALOMA MBASIC METABOLIC [id number] 07:20:00 Test Item Value Reference Range Interpretation [...] S NOT APPLICABLE FOR DIALYSIS PATIEN TS. Rn Lab ID - PALOMA MCBC (HEMOGRAM ONLY)2019-12-05 06:44:00 [...] 0-0 (BEAKER) (test code = 413) POCT-GLUCOSE [id number] 21:18:00 Test Item Value Reference Range Interpretation Comments POC-GLUCOSE METER 146 mg/dL 70-110 H : TESTED A T [facility] 6720 (BEAKER) (test code = [facility], 153) 78691: Rn Lab/Techni herson ID = [id number] for Barb Martins PLATELET AGGREGATION: DRUG [id number] 17:58:00 Test Item Value Reference Range Interpretation Comments ARACHADONIC ACID 75 % 63-89 RESULT(BEAKER) (test code = 2138) PLATELET AGG DRUG Normal arachidonic INTERPRETATION (BEAKER) acid and ADP results. (test code = 2408) No R3B37-csggx or aspirin-like drug effect. [id number] Arnav Rouse M.D. (BEAKER) (test code = (electonic signature) 1484) PLATELET COUNT AGG 349 K/CU MM 150-450 (BEAKER) (test code = 2656) ADP (BEAKER) (test code 74 % 62-100 = 4654) PLATELET RICH 290 k/cu mm 200-300 PLASMA(BEAKER) (test code = 2134) Platelet function studies by aggregation methodology on samples with platelet count <75,000/CU MMare unreliable; platelet function assessment should not be based on a single test.Rn Lab ID - 6000POCT-GLUCOSE [id number] 16:20:00 Test Item Value Reference Range Interpretation Comments POC-GLUCOSE METER 141 mg/dL 70-110 H : TESTED A T [facility] 6720 (BEAKER) (test code = [facility], 153) 48936: Rn Lab/Techni herson ID = [id number] for CHANDAN PADRON POCT-GLUCOSE [id number] 11:53:00 Test Item Value Reference Range Interpretation Comments POC-GLUCOSE METER 138 mg/dL 70-110 H : TESTED A T [facility] 6720 (BEAKER) (test code = [place], 1538) 82479: Rn Lab/Techni herson ID = [id number] for CHANDAN PADRON POCT-GLUCOSE [id number] 08:18:00 Test Item Value Reference Range Interpretation Comments POC-GLUCOSE METER 93 mg/dL 70-110 : TESTED A T [facility] 6720 (BEAKER) (test code = [place], 1538) 14170: Rn Lab/Techni herson ID = [id number] for BARB QUEZADA [id number] 07:55:00 Test Item Value Reference Range Interpretation Comments MAGNESIUM (BEAKER) (test code = 1.8 mg/dL 1.6-2.6 627) Rn Lab ID - JORGE ALBERTO CBASIC METABOLIC [id number] 07:55:00 Test Item Value Reference Range Interpretation [...] S NOT APPLICABLE FOR DIALYSIS PATIEN TS. Rn Lab ID - JORGE ALBERTO [id number] 07:33:00 Test Item Value Reference Range Interpretation [...] 0-0 (BEAKER) (test code = 413) POCT-GLUCOSE [id number] 21:23:00 Test Item Value Reference Range Interpretation Comments POC-GLUCOSE METER 143 mg/dL 70-110 H : TESTED A T [facility] 6720 (BEAKER) (test code = [facility], 153) 14118: Rn Lab/Techni herson ID = [id number] for DA VIS ZOILA POCT-GLUCOSE [id number] 17:01:00 Test Item Value Reference Range Interpretation Comments POC-GLUCOSE METER 143 mg/dL 70-110 H : TESTED A T [facility] 6720 (BEAKER) (test code = [facility], 1538) 20337: Rn Lab/Techni herson ID = [id number] for ASHUTOSH ROMEOBo DAMARISRUDOLPH [id number] 14:53:00 Test Item Value Reference Range Interpretation Comments ACTIVATED CLOTTING TIME 257 sec : 74 -137 seconds, (BEAKER) (test code = Baseli ne: TESTED AT 441) [facility] 67[address] [place], 770 30: Rn Lab/Techni herson ID = [id number] for HI JORGE, CHONG [id number] 14:12:00 Test Item Value Reference Range Interpretation Comments ACTIVATED CLOTTING TIME 235 sec : 74 -137 seconds, (BEAKER) (test code = Silvia ne: TESTED AT 441) [facility] 6720 [facility], 770 30: Rn Lab/Techni herson ID = [id number] for HI JORGE, CHONG POCT-GLUCOSE [id number] 11:20:00 Test Item Value Reference Range Interpretation Comments POC-GLUCOSE METER 170 mg/dL 70-110 H : TESTED A T [facility] 6720 (BEAKER) (test code = [facility], 1538) 15778: Rn Lab/Techni herson ID = [id number] for ASHUTOSH WALTERSATERELL POCT-GLUCOSE [id number] 08:25:00 Test Item Value Reference Range Interpretation Comments POC-GLUCOSE METER 161 mg/dL 70-110 H : TESTED A T [facility] 6720 (BEAKER) (test code = [facility], 1538) 11021: Rn Lab/Techni herson ID = [id number] for ASHUTOSH WALTERSADAMARISNDKaris [id number] 07:44:00 Test Item Value Reference Range Interpretation Comments MAGNESIUM (BEAKER) (test code = 1.8 mg/dL 1.6-2.6 627) Rn Lab ID - JORGE ALBERTO CBASI METABOLIC [id number] 07:44:00 Test Item Value Reference Range Interpretation [...] S NOT APPLICABLE FOR DIALYSIS PATIEN KRISTAL. Rn Lab ID - JORGE ALBERTO [id number] 06:52:00 Test Item Value Reference Range Interpretation [...] WBC 0-0 (BEAKER) (test code = 413) [id number] 00:10:00 Test Item Value Reference Range Interpretation Comments PARTIAL THROMBOPLASTIN TIME 95.1 seconds 22.5-36.0 H (BEAKER) (test code = 760) POCT-GLUCOSE [id number] 21:24:00 Test Item Value Reference Range Interpretation Comments POC-GLUCOSE METER 223 mg/dL 70-110 H : TESTED A T [facility] 6720 (BEHaztucesta) (test code = [facility], 1538) 14425: Rn Lab/Techni herson ID = [id number] for CRESENCIO BAH VANCOMYCIN LEVEL, [id number] 19:47:00 Test Item Value Reference Range Interpretation Comments VANCOMYCIN TROUGH (CHRSIAKER) (test 13.8 ug/mL 10.0-20.0 code = 522) Rn Lab ID - [id number] 17:17:00 Test Item Value Reference Range Interpretation Comments PARTIAL THROMBOPLASTIN TIME 37.4 seconds 22.5-36.0 H (BEAKER) (test code = 760) POCT-GLUCOSE [id number] 16:57:00 Test Item Value Reference Range Interpretation Comments POC-GLUCOSE METER 193 mg/dL 70-110 H : TESTED A T [facility] 6720 (CHRISHaztucesta) (test code = [facility], 153) [id number]: Rn Lab/Techni herson ID = [id number] for CHANDAN PADRON ALIREZA, FOOT, MIN 3 VIEWS, [id number] 13:05:00Reason for exam:->s/p debridementFINAL REPORT CLINICAL HISTORY: s/p debridement TECHNIQUE: 3 views of the right foot COMPARISON: 12/01/2019 IMPRESSION: 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 There is gauze packing the soft tissue defect. The remaining bones appear intac t. Signed: Pollo Cortez Verified Date/Time: 12/02/2019 13:05:47 Reading Location: [facility] Radiology Reading Room POCT-GLUCOSE METER 2019-12-02 12:35:00 Test Item Value Reference Range Interpretation Comments POC-GLUCOSE METER 216 mg/dL 70-110 H : TESTED A T [facility] 6720 (BEHaztucesta) (test code = [facility], 1538) [id number]: Rn Lab/Techni herson ID = [id number] for MAXWELL RRIS, FINESSE POCT-GLUCOSE [id number] 09:24:00 Test Item Value Reference Range Interpretation Comments POC-GLUCOSE METER 232 mg/dL 70-110 H : TESTED A T [facility] 6720 (BEAKER) (test code = [place], 1538) [id number]: Rn Lab/Techni herson ID = [id number] for VASHTI LINK HEMOGLOBIN [id number] 08:08:00 Test Item Value Reference Range Interpretation Comments HEMOGLOBIN A1C (BEAKER) (test code = 10.0 % 4.3-6.1 H 368) POCT-GLUCOSE [id number] 05:46:00 Test Item Value Reference Range Interpretation Comments POC-GLUCOSE METER 239 mg/dL 70-110 H : TESTED A T [facility] 6720 (BEAKER) (test code = LOREE Ramsey [place], 1538) 0[address]: Rn Lab/Techni herson ID = [id number] for CRESENCIO BAH [id number] 01:51:00 Test Item Value Reference Range Interpretation Comments MAGNESIUM (BEAKER) (test code = 1.8 mg/dL 1.6-2.6 627) Rn Lab ID - LINDSAY WBASIC METABOLIC [id number] 01:51:00 Test Item Value Reference Range Interpretation [...] S NOT APPLICABLE FOR DIALYSIS PATIEN TS. Rn Lab ID - LINDSAY [id number] 01:42:00 Test Item Value Reference Range Interpretation [...] 0-0 (BEAKER) (test code = 413) POCT-GLUCOSE [id number] 21:29:00 Test Item Value Reference Range Interpretation Comments POC-GLUCOSE METER 222 mg/dL 70-110 H : TESTED A T [facility] 6720 (BEAKER) (test code = [place], 1538) 7[address]: Rn Lab/Techni herson ID = [id number] for CRESENCIO BAH [id number] 19:59:00 Test Item Value Reference Range Interpretation Comments PARTIAL THROMBOPLASTIN TIME 76.3 seconds 22.5-36.0 H (BEAKER) (test code = 760) POCT-GLUCOSE [id number] 17:25:00 Test Item Value Reference Range Interpretation Comments POC-GLUCOSE METER 259 mg/dL 70-110 H : TESTED A T [facility] 6720 (BEAKER) (test code = LOREE Ramsey [facility], 1538) 12901: Rn Lab/Techni herson ID = [id number] for HOMERO VALERIO, FOOT, MIN 3 VIEWS, [id number] 15:46:00Reason for exam:->gangrene FINAL REPORT CLINICAL HISTORY: [...] Cortez MDReport Verified Date/Time: 12/01/2019 15:46:27Reading Location: [facility] Radiology Reading Room SARS-COV2/RT-PCR ([facility])2019-12-01 14:10:00 Test Item Value Reference Range Interpretation Comments SARS-COV2/RT-PCR (test Not Detected Not Detected, Negative code = 1404132) SARS-COV-[address] [facility] (test code = 9495678) Negative results do not preclude SARS-CoV-2 infection [...] of the Act.Fact Sheet for Healthcare Pro viders:https://www.[employer]/Documents/Xpert%20Xpress%20SARS%20CoV-2/Fact%20Sh eets/302-3802%53OZST-CAB-7%20HEALTHCARE%20PROVIDERS%20FACT%20SHEET.pdfFact Sheet for Healthcare Patients:https://www.Clifford Thames.[employer]/Documents/Xpert%20Xpress%20SARS%20CoV-2/Fact%20Sheets/302-3801%20SARS-COV -2%20PATIENT%20FACT%20SHEET.pdfPerforming Laboratory:[address], [place] [id number] 12:34:00 Test Item Value Reference Range Interpretation Comments PARTIAL THROMBOPLASTIN TIME 47.2 seconds 22.5-36.0 H (BEAKER) (test code = 760) POCT-GLUCOSE [id number] 12:24:00 Test Item Value Reference Range Interpretation Comments POC-GLUCOSE METER 185 mg/dL 70-110 H : Notified RN/MD: (BEAKER) (test code = TESTED AT [facility] 6720 1538) [facility], [address]: Rn Lab/Techni herson ID = [id number] for MARIA INES MERCEDES HOMERO COMPREHENSIVE METABOLIC [id number] 06:04:00 Test Item Value Reference Range Interpretation [...] S NOT APPLICABLE FOR DIALYSIS PATIEN TS. Rn Lab BRANDEN DOUGHERTY LC-REACTIVE [id number] 06:04:00 Test Item Value Reference Range Interpretation Comments C-REACTIVE PROTEIN (BEAKER) (test 13.79 mg/dL 0.00-0.50 H code = 676) Rn Lab BRANDEN - LAZMICHI [id number] 05:28:00 Test Item Value Reference Range Interpretation Comments PARTIAL THROMBOPLASTIN TIME 35.0 seconds 22.5-36.0 (BEAKER) (test code = 760) 6 hours after starting heparin infusion and as indicated per sliding scaleAPTT 2019-12-01 05:27:00 Test Item Value Reference Range Interpretation Comments PARTIAL THROMBOPLASTIN TIME 33.8 seconds 22.5-36.0 (BEAKER) (test code = 760) Prior to initiating heparinPROTHROMBIN TIME/[id number] 05:26:00 Test Item Value Reference Range Interpretation [...] to initiating heparinCBC W/PLT COUNT & AUTO [id number] 05:12:00 Test Item Value Reference Range Interpretation [...]
[2021-08-02] MEDS ORDERED: MORPHINE 4 MG/ML SYR ONE (11:19)
[2021-08-02] MEDS ORDERED: GABAPENTIN 300 MG CAP ONE (11:19)
--- NOTE | 2021-08-02 11:58 | RAD REPORT ---
EXAM DESCRIPTION: US - Extremity Venous Uni Ltd - 08/02/2021 11:44 am CLINICAL HISTORY: PAIN COMPARISON: None. TECHNIQUE: Real-time sonographic evaluation of the right lower extremity deep venous systems was per formed. FINDINGS: Normal compressibility, flow augmentation, phasic flow and spontaneous flow are identified in the right lower extremity common femoral, superficial femoral, popliteal and posterior tibial vei ns. No intraluminal filling defects seen. IMPRESSION: No DVT in the right lower extremity.
--- NOTE | 2021-08-02 12:06 | RAD REPORT ---
EXAM DESCRIPTION: US - Lower Extremity Artery Uni Ltd - 08/02/2021 11:50 am CLINICAL HISTORY: PAIN Toe amputation COMPARISON: No comparisons TECHNIQUE: Doppler evaluation of the right lower extremity arterial tree performed. Waveforms and ve locity values were obtained along with visual inspection. FINDINGS: Atherosclerotic changes are present in the right common femoral and popliteal arteries. No occlusion or flow restricting lesion in these vessels. Superficial femoral artery stent is in place. Lumen is patent with a monophasic waveform pattern identifiable. Common femoral artery waveform nicole pieter biphasic. The popliteal artery and dorsalis pedis arteries are monophasic. No blood flow could be demonstrated in the right posterior tibial artery. IMPRESSION: No flow identifiable in the right posterior tibial artery. Remainder of the right lower extremity arterial tree is patent. Significant atherosclerotic changes a re present but no other occlusion or focal flow restricting lesions seen. Patent stent in the right superficial femoral artery.
--- NOTE | 2021-08-02 13:24 | EDPHYS ---
Physician Documentation [facility] Name: Maria Isabel Stacy Age: 75 yrs Sex: Female : 1945 Arrival Date: 08/02/2021 Time: 10:35 Bed 23 Private MD: ED Physician Haim Fox HPI: 08/02 11:20 This 75 yrs old Female presents to ER via Wheelchair with complaints of Foot cp Pain. 11:20 The patient presents with pain. The complaints affect the right foot. Context: resulted cp from an unknown cause, became worse over past 3 days. Associated signs and symptoms: Pertinent negatives calf tenderness, fever, numbness, swelling, warmth. Treatment prior to arrival includes: no previous treatment. Severity of symptoms: in the emergency department the symptoms are unchanged, despite home interventions. Patient reports running out of prescribed meds: gabapentin for neuropathy, metformin. Historical: - Allergies: 10:44 No Known Allergies; ll1 - PMHx: 10:44 Diabetes - IDDM; Hypertensive disorder; neuropathy; ll1 - PSHx: 10:44 R foot all toes amputated; ll1 - Immunization history:: Client reports receiving the 2nd dose of the Covid vaccine. - Social history:: Smoking status: Patient denies any tobacco usage or history of. ROS: 11:25 MS/extremity: Positive for pain, of the right foot, Negative for injury or acute cp deformity, decreased range of motion. 11:25 Constitutional: Negative for body aches, chills, fever, poor PO intake. cp 11:25 Respiratory: Negative for cough, shortness of breath, wheezing. 11:25 Abdomen/GI: Negative for abdominal pain, nausea, vomiting, and diarrhea. 11:25 Neuro: Negative for altered mental status, numbness, weakness. 11:25 All other systems are negative. Exam: 11:30 Constitutional: The patient appears in no acute distress, alert, awake, cp non-diaphoretic, non-toxic, well developed, well nourished, uncomfortable. 11:30 Head/Face: Normocephalic, atraumatic. cp 11:30 Eyes: Periorbital structures: appear normal, Conjunctiva: normal, no exudate, no injection, Sclera: no appreciated abnormality, Lids and lashes: appear normal, bilaterally. 11:30 ENT: External ear(s): are unremarkable, Nose: is normal, Mouth: Lips: moist, Oral mucosa: moist, Posterior pharynx: Airway: no evidence of obstruction, patent. 11:30 Chest/axilla: Inspection: normal. 11:30 Cardiovascular: Rate: normal, Edema: is not appreciated, JVD: is not appreciated. 11:30 Respiratory: the patient does not display signs of respiratory distress, Respirations: normal, no use of accessory muscles, no retractions, labored breathing, is not present. 11:30 Abdomen/GI: Exam negative for discomfort, distension, guarding, Inspection: abdomen appears normal. 11:30 Back: pain, is absent, ROM is normal. 11:30 Musculoskeletal/extremity: Extremities: noted in the right foot: distal 1-5 metatarsal amputation with no erythema, swelling noted, Pulses: weak dorsalis pedis pulse right foot, the right foot Severe pain noted. 11:30 Skin: cellulitis, is not appreciated. 11:30 Neuro: Orientation: to person, place \\T\\ time. Mentation: is normal. Vital Signs: 10:44 BP 148 / 80; Pulse 76; Resp 17; Temp 98.2; Pulse Ox 98% ; Weight 63.5 kg; Height 5 ft. ll1 4 in. (162.56 cm); Pain 10/10; 11:21 BP 132 / 97; Pulse 77; Resp 16; Pulse Ox 95% ; bp 12:00 BP 135 / 98; Pulse 71; Resp 15; Pulse Ox 99% ; eo2 13:00 BP 135 / 79; Pulse 78; Resp 15; Pulse Ox 100% ; eo2 14:00 BP 123 / 95; Pulse 71; Resp 17; Pulse Ox 99% ; Pain 0/10; eo2 14:31 BP 123 / 58; Pulse 68; Resp 16; Pulse Ox 100% on R/A; Pain 0/10; ss 15:00 BP 137 / 97; Pulse 79; Resp 15; Pulse Ox 100% ; Pain 0/10; eo2 16:00 BP 136 / 80; Pulse 80; Resp 17; Pulse Ox 100% ; eo2 17:00 BP 106 / 61; Pulse 75; Resp 18; Pulse Ox 98% ; Pain 0/10; eo2 18:00 BP 139 / 70; Pulse 66; Resp 14; Pulse Ox 99% ; Pain 0/10; eo2 19:00 BP 100 / 75; Pulse 64; Resp 13; Pulse Ox 99% on R/A; vc1 20:00 BP 142 / 65; Pulse 67; Resp 11; Pulse Ox 100% on R/A; vc1 21:00 BP 142 / 65; Pulse 61; Resp 12; Temp 98.1(TE); Pulse Ox 99% on R/A; vc1 21:31 BP 124 / 65; Pulse 66; Resp 15; Pulse Ox 98% on R/A; vc1 10:44 Body Mass Index 24.03 (63.50 kg, 162.56 cm) ll1 MDM: 10:54 Patient medically screened. 13:20 Physician consultation: was contacted at 13:20, regarding regarding transfer, to [facility]. patient's condition, accepting physician will be DR Neville, hospitalist. 13:20 Physician consultation: was contacted at 13:14, regarding consult, patient's condition, spoke with DR Grimm, vascular surgeon, wants patient started on heparin drip and transferred to services of hospitalist. 14:25 Data reviewed: vital signs, nurses notes, lab test result(s), radiologic studies, cp ultrasound. 08/02 12:49 Order name: Basic Metabolic Panel; Complete Time: 14:23 08/02 14:23 Interpretation: Normal except: NA 134; GLUC 376; GFR 60. 08/02 12:49 Order name: CBC with Diff; Complete Time: 14:23 08/02 14:23 Interpretation: Normal except: WBC 11.70; RUPINDER% 77.3; NEUT A 9.0. 08/02 12:49 Order name: LFT's; Complete Time: 14:23 08/02 14:23 Interpretation: Normal except: AST 13; ALK 125; BILIT 1.9; BILID 0.3; GLOB 4.1; A/G 0.8. 08/02 12:49 Order name: Magnesium; Complete Time: 14:23 08/02 12:49 Order name: PT-INR; Complete Time: 14:23 08/02 12:49 Order name: Troponin HS; Complete Time: 14:23 08/02 11:14 Order name: US Extremity Venous Unilateral Ltd; Complete Time: 12:07 08/02 12:07 Interpretation: Report reviewed. cp 08/02 11:14 Order name: US Lower Extremity Artery Uni Ltd; Complete Time: 12:07 cp 08/02 12:08 Interpretation: Report reviewed. cp 08/02 12:54 Order name: COVID-19 SARS RT PCR (Document "Date of Onset" if Symptomatic); Complete bd Time: 14:23 08/02 16:44 Order name: Ptt, Activated ss 08/02 12:49 Order name: EKG; Complete Time: 12:50 cp 08/02 12:49 Order name: Cardiac monitoring; Complete Time: 13:53 cp 08/02 12:49 Order name: EKG - Nurse/Tech; Complete Time: 13:53 cp 08/02 12:49 Order name: IV Saline Lock; Complete Time: 13:42 cp 08/02 12:49 Order name: Labs collected and sent; Complete Time: 13:42 cp 08/02 12:49 Order name: O2 Per Protocol; Complete Time: 13:42 cp 08/02 12:49 Order name: O2 Sat Monitoring; Complete Time: 13:42 cp 08/02 13:28 Order name: NPO; Complete Time: 13:53 cp Administered Medications: 11:20 Drug: Neurontin (gabapentin) 300 mg Route: PO; bp 13:56 Follow up: Response: No adverse reaction ss 11:21 Drug: morphine 4 mg Route: IM; Site: right deltoid; bp 13:58 Follow up: Response: No adverse reaction; Pain is decreased ss 13:50 Drug: Heparin (DVT/PE- Bolus per protocol) - HEParin 80 units/kg {Co-Signature: eo2 ss (Clair Muhammad RN).} Route: IVP; Site: right antecubital; 21:08 Follow up: Response: No adverse reaction; No adverse reaction; no bleeding noted vc1 13:52 Drug: Heparin (DVT/PE Drip) 18 units/kg/hr - (HEParin 28618 units, D5W 500 ml) ss {Co-Signature: eo2 (Clair Muhammad RN).} Route: IV; Rate: calculated rate; Site: right antecubital; 18:30 Follow up: Rate change 900 units/hr; IV Status: Infusion continued eo2 Disposition Summary: 08/02/21 13:24 Transfer Ordered Transfer Location: [facility] cp Reason: Higher level of care cp Condition: Stable cp Problem: new cp Symptoms: have improved cp Accepting Physician: Jamin(08/02/21 21:41) vc1 Diagnosis - Occlusion of Right Posterior Tibial Artery cp Forms: - Medication Reconciliation Form cp - SBAR form cp Addendum: 08/05/2021 07:05 Co-signature as Attending Physician, Haim Fox MD I agree with the assessment and r n plan of care. PA/DEVOPS DEVELOPER's history reviewed, patient interviewed, and examined. HPI: 75 year old female with 3 days of increased lower ext pain. No trauma. No fever My personal exam of patient reveals: No palpable PT pulse of lower ext. No gangrene. No open wounds. I agree with assessment and care plan and confirm the diagnosis (es) above. Signatures: Dispatcher [employer] EDHaim Bhagat MD MD rn Smirch, Shelby, RN RN ss Page, Corey, PA PA cp Peltier, Brian, RN RN bp Lewis, Lynsay RN RN ll1 Vesna Kamara RN RN vc1 Clair Muhammad RN eo2 Clair Muhammad RN eo2 Corrections: (The following items were deleted from the chart) 08/02 21:41 13:24 Jamin cp vc1
--- NOTE | 2021-08-02 13:24 | ER ---
Nurse's Notes [facility] Name: Maria Isabel Stacy Age: 75 yrs Sex: Female : 1945 Arrival Date: 08/02/2021 Time: 10:35 Bed 23 Private MD: Diagnosis: Occlusion of Right Posterior Tibial Artery Presentation: 08/02 10:44 Chief complaint: Patient states: R foot stump pain for 3 days. No specific trauma. No ll1 fever. Coronavirus screen: Vaccine status: Patient reports receiving the 2nd dose of the covid vaccine. Client denies travel out of the [place] in the last 14 days. At this time, the client does not indicate any symptoms associated with coronavirus-19. Ebola Screen: Patient denies travel to an Ebola-affected area in the 21 days before illness onset. Initial Sepsis Screen: Does the patient meet any 2 criteria? No. Patient's initial sepsis screen is negative. Does the patient have a suspected source of infection? No. Patient's initial sepsis screen is negative. Risk Assessment: Do you want to hurt yourself or someone else? Patient reports no desire to harm self or others. Onset of symptoms was July 31, 2021. 10:44 Method Of Arrival: Wheelchair ll1 10:44 Acuity: DORCAS 4 ll1 14:04 Acuity: DORCAS 3 ss Triage Assessment: 10:46 General: Appears in no apparent distress. Behavior is calm, cooperative, appropriate ll1 for age. Pain: Complains of pain in right foot Quality of pain is described as aching. Musculoskeletal: Range of motion: intact in all extremities, Reports pain in right foot. Historical: - Allergies: 10:44 No Known Allergies; ll1 - PMHx: 10:44 Diabetes - IDDM; Hypertensive disorder; neuropathy; ll1 - PSHx: 10:44 R foot all toes amputated; ll1 - Immunization history:: Client reports receiving the 2nd dose of the Covid vaccine. - Social history:: Smoking status: Patient denies any tobacco usage or history of. Screenin:50 Abuse screen: Denies threats or abuse. Denies injuries from another. Nutritional bp screening: No deficits noted. Tuberculosis screening: No symptoms or risk factors identified. Fall Risk None identified. Assessment: 10:50 General: SEE TRIAGE NOTE. bp 11:22 Reassessment: U/S AT B/S. bp 14:30 Reassessment: Patient appears in no apparent distress at this time. Patient and/or ss family updated on plan of care and expected duration. Pain level reassessed. Pt has been updated on status of pending transfer. Heparin drip infusing at 1100 units/ hr. Lights dimmed for comfort. Pt has been offered a warm blanket, but politely declined at this time. Call light remains within reach. Side rail up x 1. 18:30 Reassessment: Infusion rate changed to 900units/hr. eo2 19:00 Reassessment: Patient and/or family updated on plan of care and expected duration. Pain vc1 level reassessed. Patient is alert, oriented x 3, equal unlabored respirations, skin warm/dry/pink. 20:00 Reassessment: Patient and/or family updated on plan of care and expected duration. Pain vc1 level reassessed. Patient is alert, oriented x 3, equal unlabored respirations, skin warm/dry/pink. General: Appears in no apparent distress. comfortable, Behavior is calm, cooperative, appropriate for age. 21:00 Reassessment: Patient and/or family updated on plan of care and expected duration. Pain vc1 level reassessed. Patient laying with eyes closed, chest rising and falling equally. 21:29 Reassessment: EMS at bedside to provide transportation to [facility]. 20G to vc1 right AC patent with Heparin drip infusing at 18ml/hr. Patient Alert and orient. Vital Signs: 10:44 BP 148 / 80; Pulse 76; Resp 17; Temp 98.2; Pulse Ox 98% ; Weight 63.5 kg; Height 5 ft. ll1 4 in. (162.56 cm); Pain 10/10; 11:21 BP 132 / 97; Pulse 77; Resp 16; Pulse Ox 95% ; bp 12:00 BP 135 / 98; Pulse 71; Resp 15; Pulse Ox 99% ; eo2 13:00 BP 135 / 79; Pulse 78; Resp 15; Pulse Ox 100% ; eo2 14:00 BP 123 / 95; Pulse 71; Resp 17; Pulse Ox 99% ; Pain 0/10; eo2 14:31 BP 123 / 58; Pulse 68; Resp 16; Pulse Ox 100% on R/A; Pain 0/10; ss 15:00 BP 137 / 97; Pulse 79; Resp 15; Pulse Ox 100% ; Pain 0/10; eo2 16:00 BP 136 / 80; Pulse 80; Resp 17; Pulse Ox 100% ; eo2 17:00 BP 106 / 61; Pulse 75; Resp 18; Pulse Ox 98% ; Pain 0/10; eo2 18:00 BP 139 / 70; Pulse 66; Resp 14; Pulse Ox 99% ; Pain 0/10; eo2 19:00 BP 100 / 75; Pulse 64; Resp 13; Pulse Ox 99% on R/A; vc1 20:00 BP 142 / 65; Pulse 67; Resp 11; Pulse Ox 100% on R/A; vc1 21:00 BP 142 / 65; Pulse 61; Resp 12; Temp 98.1(TE); Pulse Ox 99% on R/A; vc1 21:31 BP 124 / 65; Pulse 66; Resp 15; Pulse Ox 98% on R/A; vc1 10:44 Body Mass Index 24.03 (63.50 kg, 162.56 cm) ll1 ED Course: 10:35 Patient arrived in ED. as 10:36 Imtiaz Murcia PA is PHCP. cp 10:36 Haim Fox MD is Attending Physician. cp 10:37 Gabriel Azul RN is Primary Nurse. bp 10:44 Arm band placed on Patient placed in an exam room, on a stretcher. ll1 10:46 Triage completed. ll1 10:50 Patient has correct armband on for positive identification. Bed in low position. Call bp light in reach. Side rails up X2. Adult w/ patient. 11:44 US Extremity Venous Unilateral Ltd In Process Unspecified. EDMS 11:50 US Lower Extremity Artery Uni Ltd In Process Unspecified. EDMS 13:15 Inserted saline lock: 20 gauge in right antecubital area, using aseptic technique. ss ,using aseptic technique. Insertion by ATA Nichole Blood collected. 13:[address] [facility]. bd 14:36 No provider procedures requiring assistance completed. eo2 15:00 engine monitor on. Pulse ox on. NIBP on. Door closed. Noise minimized. Lights dimmed. eo2 Warm blanket given. 19:08 Report given to Vesna MIRANDA. eo2 19:40 called [facility] spoke to Mima to get an update on the transfer. She 2 stated " I will call you back in 10 minutes.". 20:07 administrative approval given by Vivien Cisneros/ patient has been accepted to [address] [place] [address]/ Dr. Neville accepted the patient in transfer/report to be called to [phone]. 21:31 Patient transferred, IV remains in place. vc1 Administered Medications: 11:20 Drug: Neurontin (gabapentin) 300 mg Route: PO; bp 13:56 Follow up: Response: No adverse reaction ss 11:21 Drug: morphine 4 mg Route: IM; Site: right deltoid; bp 13:58 Follow up: Response: No adverse reaction; Pain is decreased ss 13:50 Drug: Heparin (DVT/PE- Bolus per protocol) - HEParin 80 units/kg {Co-Signature: eo2 ss (Clair Muhammad RN).} Route: IVP; Site: right antecubital; 21:08 Follow up: Response: No adverse reaction; No adverse reaction; no bleeding noted vc1 13:52 Drug: Heparin (DVT/PE Drip) 18 units/kg/hr - (HEParin 56708 units, D5W 500 ml) ss {Co-Signature: eo2 (Clair Muhammad RN).} Route: IV; Rate: calculated rate; Site: right antecubital; 18:30 Follow up: Rate change 900 units/hr; IV Status: Infusion continued eo2 Outcome: 13:15 Instructed on the need for transfer. ss 13:24 ER care complete, transfer ordered by . cp 21:30 Transferred by ground EMS to [facility], Transfer form completed. vc1 21:30 Condition: stable 21:41 Patient left the ED. vc1 Signatures: Dispatcher [employer] EDMS Glory Hutchins Amelia as Smirch, Shelby, RN RN ss Imtiaz Murcia PA PA cp Gabriel Azul RN RN Jersey Alexander 2 Kaushik Ryan RN RN ll1 Clair Muhammad RN RN eo2 Vesna Kamara RN RN vc1 Clair Muhammad RN eo2 Corrections: (The following items were deleted from the chart) 19:53 19:40 called [facility] spoke to Beth to get an update on the transfer. mw2 She stated " I will call you back in 10 minutes." mw2
[2021-08-02 13:39] LABS: Absolute Lymphocytes (CBC) 1.9 K/uL (0.7-4.9); Hematocrit 39.1 % (36.0-45.0); Lymphocytes % 16.7 % (15.3-44.8); MPV 8.6 fL (7.6-11.3); Protime INR 0.95
[2021-08-02] MEDS ORDERED: HEPARIN 5000 UNIT/ML 1 ML VIAL ONE (13:47)
[2021-08-02] MEDS ORDERED: HEPARIN/D5W 25,000 UNIT/500 ML BAG IV ONE (13:47)
[2021-08-02 13:56] LABS: Albumin 3.4 g/dL (3.4-5.0); Bilirubin Direct 0.3 mg/dL (0-0.2); Bilirubin Total 1.9 mg/dL (0.2-1.0); Magnesium 2.3 mg/dL (1.8-2.4); Potassium 4.5 mmol/L (3.5-5.1); Protein, Total 7.5 g/dL (6.4-8.2); Troponin High Sensitivity 7.8 pg/mL (<58.9)
[2021-08-02 23:33] VITALS: TEMP 98.1
[2021-08-02 23:34] VITALS: BP 124/65; O2SAT 98
--- NOTE | 2021-08-03 11:16 | EKG ---
Test Date: 2021-08-02 Test Time: 13:51:38 Braid Folder: GUILLERMO MEASUREMENT RESULTS: Intervals: Rate: 70 OH: 158 QRSD: 86 QT: 416 QTc: 449 Jackson: P: 8 OH: 158 QRS: 26 T: 47 INTERPRETIVE STATEMENTS: Sinus rhythm with marked sinus arrhythmia Otherwise normal ECG Compared to ECG 09/25/2020 05:54:43 Sinus bradycardia no longer present Atrial premature complex(es) no longer present Myocardial infarct finding no longer present Electronically Signed On 08-03-21 11:13:48 ROBOTICS TECHNOLOGIST by Tramaine Ryan
== END 2021-08-02 21:41 | disposition short-term general hospital (02) ==
LOC: ER 10:31
DX: I77.1 Stricture of artery (principal); E11.9 Type 2 diabetes mellitus without complications; I10 Essential (primary) hypertension; Z20.822 Contact with and (suspected) exposure to COVID-19
CPT/HCPCS: 96365; 93005; 85025; 80048; 36415; 83735; 85610; 80076; 85730; 84484; 93926; 93971; 96372; 99285; 96366; U0003; J1644 ×2

== ENCOUNTER 2021-08-06 10:54 | Inpatient (IN) | payer OTHER ==
--- OUTSIDE RECORDS SUMMARY | 2021-08-06 11:05 | XMS REPORT | Continuity of Care Document ---
:1945 Author Organization [facility] t Address [address] [place] [address] Care Team Providers Name Role Phone ONEIL, Bo Primary Care Physician Unavailable MECCA BENITO Attending Clinician Unavailable BALTA STOVALL Attending Clinician Unavailable ELO ALEJO Attending Clinician Unavailable Lucretia MERCEDES Attending Clinician Unavailable MICHELLE Attending Clinician Unavailable KAREN LOZOYA Attending Clinician Unavailable Phillip AIRCRAFT INSPECTION RECORD CLERK, F Attending Clinician Doctor Unassigned, Name Attending Clinician Unavailable Bo Riggs MD Attending Clinician Balta Stovall DPM Attending Clinician Lionel Franco MD Attending Clinician Bo RIGGS Attending Clinician Unavailable Balta Stovall DPM Attending Clinician Arias Gimenez MD Attending Clinician Osmin KIM Attending Clinician Waldo KIM Attending Clinician JOSE Attending Clinician Unavailable LINDEN RAYMOND Attending Clinician Unavailable Braulio WALTON Attending Clinician Unavailable Jacob VALERA Attending Clinician Unavailable ERAN Attending Clinician Unavailable MECCA BENITO Admitting Clinician Unavailable BALTA STOVALL Admitting Clinician Unavailable ELO ALEJO Admitting Clinician Unavailable Lucretia MERCEDES Admitting Clinician Unavailable GONZÁLEZ Admitting Clinician Unavailable OSMIN Admitting Clinician Unavailable OSIRIS WATKINS Admitting Clinician Unavailable Braulio WALTON Admitting Clinician Unavailable Jacob VALERA Admitting Clinician Unavailable Payers Payer Name Policy Type Policy Number Effective Date Expiration Date [facility]cretia joe [facility] [id number] 2020 [facility] HMO D SNP 00:00:00 [place]ID [place] [id number] 2019 00:00:00 UNITED MEDICARE [id number] 2017 HMO 00:00:00 CDC REVIEW [id number] 2019 00:00:00 [place] [id number] 2018 00:00:00 Problems Condition Condition Condition Status Onset Resolution Last Treating Co mments Source Name Details Category Date Date Treatment Clinician Date S/P 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[facility] transmetat transmetat 02-25 Co llege arsal arsal 00:00: of amputation amputation 00 Me dicin of foot, of foot, e right right (HCCode) (HCCode) Post-opera Post-opera Disease Active [facility] tive state tive state 02-25 Co llege 00:00: of 00 Medicin e Encounter Encounter Disease Active [facility] for post for post 02-25 Colleg e surgical surgical 00:00: of wound wound 00 Medicin check check e PAD PAD Disease Active [facility] (periphera (periphera 9-10 Co llege l artery l artery 00:00: of disease) disease) 00 Medici n (HCCode) (HCCode) e Type 2 Type 2 Disease Active [facility] diabetes diabetes 02-25 Colleg e mellitus mellitus 00:00: of with with 00 Medicin diabetic 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, with y, with long-term long-term current current use of use of insulin insulin (HCCode) (HCCode) PAD PAD Disease Active [facility] (periphera (periphera 9-10 Co llege l artery l artery 00:00: of disease) disease) 00 Medici n (HCCode) (HCCode) e Type 2 Type 2 Disease Active 2020 [facility] diabetes diabetes 9-10 Colleg e mellitus mellitus 00:00: of with with 00 Medicin diabetic 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, with y, with long-term long-term current current use of use of insulin insulin (HCCode) (HCCode) Post-opera Post-opera Disease Active [address] tive state tive state 8-25 [facility] - [facility]: [facility] 00 Center Surgical Surgical Disease [facility]care[facility] 825 [facility] - skin or skin or 00:00: Medical subcutaneo subcutaneo 00 Ce nter us tissue us tissue 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 00 Center through through metatarsal metatarsal bone bone Impaired Impaired Disease [facility] Anemia Anemia Disease Active 2020- [facility] Thrombocyt Thrombocyt Disease Active 2020-[address] osis osis 12-17 [facility] 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 toe of 6-15 [facility] - right foot right foot 00:00: Me dical 00 Center Allergies, Adverse Reactions, Alerts Allergy Allergy Status Severity Reaction(s) Onset Inactive Treating Comm ents Source Name Type Date Date Clinician NO KNOWN Drug Active [facility] ALLERGIE Class [facility] NO KNOWN Allergy Active [facility] ALLERGIE S Family History Family Member Diagnosis Comments Start Date Stop Date Source Natural father Diabetes type II [facility] Social History Social Habit Start Date Stop Date Quantity Comments Source History [facility] Alcohol Std Drinks of Med icine History [facility] ge Alcohol Binge of Medicine Tobacco use and 2020-06-08 2020-06-08 Never used [facility] Co llege exposure 00:00:00 00:00:00 of Medicine Alcohol intake 2020-06-08 2020-06-08 [facility] 00:00:00 00:00:00 non-drinker of Medicine (finding) History [facility] 2020-01-21 2020-01-21 1 [facility] Colle ge Alcohol Frequency 00:00:00 00:00:00 of Medi cine Sex [birth year] [facility] 00:00:00 00:00:00 of Medicine Smoking Status Start Date Stop Date Source Never smoker [facility] o f Medicine Medications Ordered Filled Start Stop Current Ordering Indication Dosage Frequency Signature Comments Components Source Medication Medication Date Date Medication? Clinician (SIG) Name Name Metformin 2019-06 Yes Take by [facility] HCl 500 2-21 mouth. College MG/5ML SOLN 20:33: of 00 Medicin e metformin 2019-06 Yes 1000mg Take 1 Tab [facility] (GLUCOPHAGE 0-19 by mouth [facility] e[facility] ) 1000 MG 00:00: two times of tablet 00 daily. Medicin e insulin 2019-06 Yes 7U Inject 7 [facility] glargine 0-19 Units into Colle ge (LANTUS) 00:00: the skin of 100 UNIT/ML 00 nightly. Medi milagro injection e insulin 2019-06 Yes 7U Inject 7 [facility] glargine 0-19 Units into Colle ge (LANTUS) 00:00: the skin of 100 UNIT/ML 00 nightly. Medi milagro injection e metformin 2019-06- No 1000mg Take 1 Tab [facility] (GLUCOPHAGE 0-19 12-21 by mouth Col [facility]ge ) 1000 MG 00:00: 00:00 two times of tablet 00 :00 daily. Medicin e gabapentin 2019- No 300mg Take 1 Cap [facility] (NEURONTIN) 02-18 by mouth 3 C ollege 300 MG 00:00: 05:59 times of capsule 00 :00 daily for Medicin 60 days. e gabapentin 2019- No 300mg Take 1 Cap [facility] (NEURONTIN) [...] gabapentin 2020- No 300mg Take 1 Cap [facility] (NEURONTIN) 02-18 by mouth 3 C ollege [...] 325mg Take 325 [facility] sulfate 325 02-1602 mg by Colleg e (65 Fe) MG [...] of tablet 00 :00 Medicin e lisinopril No 5mg Take 5 mg [facility] [...] external solution sodium 2020-0 Yes Apply to [facility] hypochlorit 8-12 affected [facility] e external 00:00: area daily o f solution 00 Medicin e amoxicillin 2020-0 Yes 1{tbl} Take 1 Tab [facility] -clavulanat 8-12 by mouth [facility] e[facility] e 00:00: two times of (AUGMENTIN) 00 daily. Medici n 500-125 MG e per tablet amoxicillin 2020-0 Yes 1{tbl} Take 1 Tab [facility] -clavulanat 8-12 by mouth [facility] e 00:00: two times of (AUGMENTIN) 00 daily. Medici n 500-125 MG e per tablet sodium 2020-0 Yes Apply to [facility] hypochlorit 8-12 affected [facility] e[facility] e external 00:00: area daily o f solution 00 Medicin e amoxicillin 2020-0 Yes 1{tbl} Take 1 Tab [facility] -clavulanat 8-12 by mouth [facility] e[facility] e 00:00: two times of (AUGMENTIN) 00 daily. Medici n 500-125 MG e per tablet amoxicillin 2020-0 2020- No 1{tbl} Take 1 Tab [facility] -clavulanat 8-12 10-19 by mouth Col lege e 00:00: 00:00 two times of (AUGMENTIN) 00 :00 daily. Medici n 500-125 MG e per tablet sodium 2020-0 2020- No Apply to [facility] hypochlorit 8-12 09-30 affected Col [facility]ge e external 00:00: 00:00 area daily of solution 00 :00 Medicin e gabapentin 2020-0 2020- No 300mg Take 1 Cap [facility] (NEURONTIN) 8-05 10-05 by mouth 3 C [facility]lege 300 MG 00:00: 04:59 times of capsule 00 :00 daily for Medicin 60 days. e gabapentin 2020-0 2020- No 300mg Take 1 Cap [facility] (NEURONTIN) 8-05 10-05 by mouth 3 C [facility]lege 300 MG 00:00: 04:59 times of capsule 00 :00 daily for Medicin 60 days. e ACCU-CHEK 2020-0 Yes [facility] [address] [place] 00:00: of 00 Medicin e ACCU-CHEK 2020-0 Yes [facility] 7 [place] 00:00: of 00 Medicin e ACCU-CHEK 2020-0 Yes [facility] [address] [place] 00:00: of 00 Medicin e ACCU-CHEK 2020-0 Yes [facility] [address] [place] 00:00: of 00 Medicin e ACCU-CHEK 2020-0 Yes [facility] [address] [place] 00:00: of 00 Medicin e ACCU-CHEK 2020-0 Yes [facility] [address] [place] 00:00: of 00 Medicin e ACCU-CHEK 2020-0 Yes [facility] [address] [place] 00:00: of 00 Medicin e BRILINTA 90 2020-0 Yes TK 1 T PO [facility] MG TABS 7-15 BID [place] 00:00: of 00 Medicin e BRILINTA 90 2020-0 Yes TK 1 T PO [facility] MG TABS 7-15 BID [place] 00:00: of 00 Medicin e BRILINTA 90 2020-0 Yes TK 1 T PO [facility] MG TABS 7-15 BID [place] 00:00: of 00 Medicin e BRILINTA 90 2020-0 Yes TK 1 T PO [facility] MG TABS 7-15 BID [place] 00:00: of 00 Medicin e aspirin 81 2020-0 Yes 81mg QD Take 1 [facility] chewable 7-15 tablet (81 [facility] - tablet 00:00: mg total) Medica l 00 by mouth Center daily. BRILINTA 90 2020-0 Yes TK 1 T PO [facility] MG TABS 7-15 BID [place] 00:00: of 00 Medicin e BRILINTA 90 2020-0 Yes TK 1 T PO [facility] MG TABS 7-15 BID [place] 00:00: of 00 Medicin e BRILINTA 90 2020-0 Yes TK 1 T PO [facility] MG TABS 7-15 BID [place] 00:00: of 00 Medicin e zinc 2020-0 2020- No 220mg Take 220 [facility] sulfate 7-15 09-14 mg by [place] (ZINCATE) 00:00: 04:59 mouth. of 220 (50 Zn) 00 :00 Medicin MG capsule e zinc 2020-0 2020- No 220mg Take 220 [facility] sulfate 7-15 09-14 mg by [place] (ZINCATE) 00:00: 04:59 mouth. of 220 (50 Zn) 00 :00 Medicin MG capsule e zinc 2020-0 2020- No 220mg Take 220 [facility] sulfate 7-15 09-14 mg by [place] (ZINCATE) 00:00: 04:59 mouth. of 220 (50 Zn) 00 :00 Medicin MG capsule e multivitami 2020-0 2020- No 1{tbl} QD Take [address] n 7-15 -13 tablet by [facility] - (THERAGRAN) 00:00: 23:59 mouth Medi casey tablet 00 :00 daily for Center 60 days. zinc 2020-0 2020- No 220mg QD Take [address] [facility] [facility] sulfate 7-15 02-28 capsule [facility] - (ZINCATE) 00:00: 23:59 (220 mg Medi casey 220 (50) mg 00 :00 total) by [facility] capsule mouth daily for 60 days. atorvastati 2020-0 Yes 80mg Take 80 mg [facility] n (LIPITOR) 7-14 by mouth. Col lege 80 MG 00:00: of tablet 00 Medicin e docusate 2020-0 Yes 100mg Take 100 [facility] sodium 7-14 mg by College (COLACE) 00:00: mouth. of 100 MG 00 Medicin capsule e insulin 2020-0 Yes 7U Inject 7 [facility] glargine 7-14 Units into Colle ge (LANTUS) [...] atorvastati 2020-0 Yes 80mg Take 80 mg [facility] n (LIPITOR) 7-14 by mouth. Col lege [...] atorvastati 2020-0 Yes 80mg Take 80 mg [facility] n (LIPITOR) 7-14 by mouth. Col [facility]ge 80 MG 00:00: of tablet 00 Medicin e docusate 2020-0 Yes 100mg Take 100 [facility] sodium 7-14 mg by College (COLACE) 00:00: mouth. of 100 MG 00 Medicin capsule e atorvastati 2020-0 Yes 80mg QD Take 1 [...] atorvastati 2020-0 Yes 80mg Take 80 mg [facility] n (LIPITOR) 7-14 by mouth. Col lege [...] 00 :00 Medicin injection e Melatonin 3 2020-0 2020- No 3mg Take 3 mg [facility] MG TABS 12-29 by mouth. Colleg e 00:00: 04:59 of 00 :00 Medicin e Ticagrelor 2020-0 2020- No 90mg Take 90 mg [facility] 90 MG TABS 12-29 by mouth. Col lege 00:00: 04:59 of 00 :00 Medicin e Melatonin 3 2020-0 2020- No 3mg Take 3 mg [facility] MG TABS 12-29 by mouth. Colleg e 00:00: 04:59 of 00 :00 Medicin e Ticagrelor 2020-0 2020- No 90mg Take 90 mg [facility] 90 MG TABS 12-29 by mouth. Col [facility]ge 00:00: 04:59 of 00 :00 Medicin e Melatonin 3 2019-0 2020- No 3mg Take 3 mg [facility] MG TABS 12-29 by mouth. Colleg e 00:00: 04:59 of 00 :00 Medicin e Ticagrelor 2020-0 2020- No 90mg Take 90 mg [facility] 90 MG TABS 12-29 by mouth. Col lege 00:00: 04:59 of 00 :00 Medicin e ascorbic 2020-0 2020- No 500mg Q.5D Take 1 [facility] acid, 12-29 tablet [facility] - vitamin C, 00:00: 23:59 (500 mg Med ical (VITAMIN C) 00 :00 total) by [facility] 500 MG mouth 2 tablet (two) times daily for 60 days. gabapentin 2020-0 2020- No 300mg [id number] Take [address] [facility] (NEURONTIN) 12-29 [id number] capsule [facility] - 300 MG 00:00: 23:59 [...] breakfast and dinner for 60 days. ticagrelor 2019-0 2020- No 90mg Q.5D Take [address] [facility] (BRILINTA) 12-29 tablet (90 [facility] - 90 mg Tab 00:00: 23:59 mg total) Me dical tablet 00 :00 by mouth 2 Center (two) times daily for 60 days. gabapentin 2019- 2020- No 300mg Take 300 [facility] (NEURONTIN) 12-29 08-05 mg by Colleg e 300 MG 00:00: 00:00 mouth. of capsule 00 :00 Medicin e collagenase Yes 1{appli QD Apply [address] [facility] [facility] (SANTYL) 5-21 cation} applicatio [facility] - 250 units/g 00:00: n Medica l ointment 00 topically Center daily Apply kannan thick amount to wound daily. SANTYL 250 0 Yes JENNIFER KANNAN [facility] UNIT/GM 5-21 [...] 00 WOUND QD Medicin UTD e traMADoL 2020-0 Yes 1{tbl} Take 1 [facility] [...] 2020-0 2020- No TK 1 T PO Sandy delmi (ULTRAM) 50 5-18 10-19 Q 6 [...] pantoprazol 2020-0 Yes 40mg Take 40 mg [facility] e 5-06 by mouth. [place] (PROTONIX) 00:00: of 40 MG 00 Medicin [...] clopidogrel 2020-0 Yes 75mg Take 75 mg [facility] (PLAVIX) 75 5-06 by mouth. Col [facility]ge MG Tablet 00:00: of 00 Medicin e clopidogrel 2020-0 Yes 75mg Take 75 mg [facility] (PLAVIX) 75 5-06 by mouth. Col [facility] MG Tablet 00:00: of 00 Medicin e pantoprazol 2020-0 Yes 40mg Take 40 mg [facility] e 5-06 by mouth. [place] (PROTONIX) 00:00: of 40 MG 00 Medicin [...] clopidogrel 2020-0 Yes 75mg Take 75 mg [facility] (PLAVIX) 75 5-06 by mouth. Col [facility]ge MG Tablet 00:00: of 00 Medicin e pantoprazol 2020-0 Yes 40mg Take 40 mg [facility] e 5-06 by mouth. [place] (PROTONIX) 00:00: of 40 MG 00 Medicin [...] pantoprazol 2020-0 Yes 40mg Take 40 mg [facility] 5-06 by mouth. [place] (PROTONIX) 00:00: of 40 MG 00 Medicin tablet e polyethylen 2020-0 Yes 17g Take 17 g [facility] glycol 5-06 by mouth. Colleg e (GLYCOLAX) 00:00: of 17 g packet 00 Medicin e clopidogrel 2020-0 Yes 75mg Take 75 mg [facility] (PLAVIX) 75 5-06 by mouth. Col [facility]ge MG Tablet 00:00: of 00 Medicin e Psyllium 2020-0 Yes 1{packe Take 1 [facility] (METAMUCIL 5-06 t} Packet by [facility] FIBER) 51.7 00:00: mouth. of % PACK 00 Medicin e pantoprazol 2020-0 Yes 40mg Take 40 mg [facility] e 5-06 by mouth. [place] (PROTONIX) 00:00: of 40 MG 00 Medicin [...] pantoprazol 2020-0 Yes 40mg Take 40 mg [facility] e 5-06 by mouth. [place] (PROTONIX) 00:00: of 40 MG 00 Medicin [...] 40 mg [facility] e 5-06 by mouth. [place] (PROTONIX) 00:00: of 40 MG 00 Medicin tablet e polyethylen 2020-0 Yes 17g Take 17 g [facility] e glycol 5-06 by mouth. Colleg e (GLYCOLAX) 00:00: of 17 g packet 00 Medicin e Psyllium 2020-0 Yes 1{packe Take 1 [facility] (METAMUCIL 5-06 t} Packet by [facility]et ADAIR) 51.7 00:00: mouth. of % PACK 00 [...] [facility] 81 MG 5-05 by mouth. [place] tablet 00:00: of 00 Medicin e glipiZIDE 2020-0 Yes 10mg Take 10 mg [facility] (GLUCOTROL) 5-05 by mouth. Col lege 10 MG CR 00:00: of tablet 00 Medicin e aspirin EC 2020-0 Yes 81mg Take 81 mg [facility] 81 MG 5-05 by mouth. [place] tablet 00:00: of 00 Medicin e hydrocodone 2020-0 Yes 1{tbl} Take 1 Tab [facility] -acetaminop 5-05 by mouth. Col lege hen (NORCO) 00:00: of 5-325 mg 00 Medicin tablet e aspirin EC 2020-0 Yes 81mg Take 81 mg [facility] 81 MG 5-05 by mouth. [place] tablet 00:00: of 00 Medicin e glipiZIDE 2020-0 Yes 10mg Take 10 mg [facility] (GLUCOTROL) 5-05 by mouth. Col lege 10 MG CR 00:00: of tablet 00 Medicin e hydrocodone 2020-0 Yes 1{tbl} Take 1 Tab [facility] -acetaminop 5-05 by mouth. Col lege hen (NORCO) 00:00: of 5-325 mg 00 Medicin tablet e glipiZIDE 2020-0 Yes 10mg Take 10 mg [facility] (GLUCOTROL) 5-05 by mouth. Col lege 10 MG CR 00:00: of tablet 00 Medicin e hydrocodone 2020-0 Yes 1{tbl} Take 1 Tab [facility] -acetaminop 5-05 by mouth. Col [facility]ge hen ([place]) 00:00: of 5-325 mg 00 Medicin tablet [...] hydrocodone 2020-0 Yes 1{tbl} Take 1 Tab [facility] -acetaminop 5-05 by mouth. Col [facility]ge hen ([place]) 00:00: of 5-325 mg 00 Medicin tablet e hydrocodone 2020-0 2020- No 1{tbl} Take 1 Tab [facility] -acetaminop 5-05 10-19 by mouth. Co llege hen ([place]) 00:00: 00:00 of 5-325 mg 00 :00 Medicin tablet e nortriptyli 2020-0 Yes 25mg QD Take [address] [facility] ne 1-30 by mouth [facility] - ([facility]) 00:00: daily. Medica l 25 MG 00 Center capsule metformin 2020-0 Yes 1000mg Take 1,000 [facility] (GLUCOPHAGE 1-30 mg by [place] ) 1000 MG 00:00: mouth. of tablet 00 Medicin e nortriptyli 2020-0 Yes 25mg Take 25 mg [facility] ne 1-30 by mouth. [place] ([facility]) 00:00: of 25 MG 00 Medicin capsule e metformin 2020-0 Yes 1000mg Take 1,000 [facility] (GLUCOPHAGE 1-30 mg by [place] ) 1000 MG 00:00: mouth. of tablet 00 Medicin e nortriptyli 2020-0 Yes 25mg Take 25 mg [facility] ne 1-30 by mouth. [place] ([facility]) 00:00: of 25 MG 00 Medicin capsule e nortriptyli 2020-0 Yes 25mg Take 25 mg [facility] ne 1-30 by mouth. [place] ([facility]) 00:00: of 25 MG 00 Medicin capsule e metformin 2020-0 Yes 1000mg Take 1,000 [facility] (GLUCOPHAGE 1-30 mg by [place] ) 1000 MG 00:00: mouth. of tablet 00 Medicin e nortriptyli 2020-0 Yes 25mg Take 25 mg [facility] ne 1-30 by mouth. [place] ([facility]) 00:00: of 25 MG 00 Medicin capsule e nortriptyli 2020-0 Yes 25mg Take 25 mg [facility] ne 1-30 by mouth. [place] ([facility]) 00:00: of 25 MG 00 Medicin capsule e nortriptyli 2020-0 Yes 25mg Take 25 mg [facility] ne 1-30 by mouth. [place] ([facility]) 00:00: of 25 MG 00 Medicin capsule e metformin 2020-0 Yes 1000mg Take 1,000 [facility] (GLUCOPHAGE 1-30 mg by [place] ) 1000 MG 00:00: mouth. of tablet 00 Medicin e nortriptyli 2020-0 Yes 25mg Take 25 mg [facility] ne 1-30 by mouth. [place] ([facility]) 00:00: of 25 MG 00 Medicin capsule e metformin 2020-0 2020- No 1000mg Take 1,000 [facility] (GLUCOPHAGE 1-30 10-19 mg by Colleg e ) 1000 MG 00:00: 00:00 mouth. of tablet 00 :00 Medicin e metformin 2020- No 1000mg Take 1,000 [facility] (GLUCOPHAGE 1-30 10-19 mg by Colleg e ) 1000 MG 00:00: 00:00 mouth. of tablet 00 :00 Medicin e Immunizations Ordered Immunization Filled Immunization Date Status Commen ts Source Name Name Influenza 2019-03-26 Completed [facility] Quadrivalent 3YRS+ 00:00:00 of Med icine Influenza 2019-03-26 Completed [facility] 3YRS+ 00:00:00 of Med icine Influenza 2019-03-26 Completed [facility] Quadrivalent 3YRS+ 00:00:00 of Med icine Influenza 2019-03-26 Completed [facility] Quadrivalent 3YRS+ 00:00:00 of Med icine Influenza 2019-03-26 Completed [facility] Quadrivalent 3YRS+ 00:00:00 of Med icine Influenza 2019-03-26 Completed [facility] Quadrivalent 3YRS+ 00:00:00 of Med icine Influenza 2019-03-26 Completed [facility] Quadrivalent 3YRS+ 00:00:00 of Med icine Influenza 2018-04-10 Completed [facility] 3YRS+ 00:00:00 of Med icine Pneumococcal 2018-04-10 Completed [facility] Polysaccharide 00:00:00 of Medicin e Influenza 2018-04-10 Completed [facility] Quadrivalent 3YRS+ 00:00:00 of Med icine Pneumococcal 2018-04-10 Completed [facility] Polysaccharide 00:00:00 of Medicin e Influenza 2018-04-10 Completed [facility] Quadrivalent 3YRS+ 00:00:00 of Med icine Pneumococcal 2018-04-10 Completed [facility] Polysaccharide 00:00:00 of Medicin e Influenza 2018-04-10 Completed [facility] Quadrivalent 3YRS+ 00:00:00 of Med icine Pneumococcal 2018-04-10 Completed [facility] Polysaccharide 00:00:00 of Medicin e Influenza 2018-04-10 Completed [facility] Quadrivalent 3YRS+ 00:00:00 of Med icine Pneumococcal 2018-04-10 Completed [facility] Polysaccharide 00:00:00 of Medicin e Influenza 2018-04-10 Completed [facility] Quadrivalent 3YRS+ 00:00:00 of Med icine Pneumococcal 2018-04-10 Completed [facility] ge Polysaccharide 00:00:00 of Medicin e Influenza 2018-04-10 Completed [facility] Quadrivalent 3YRS+ 00:00:00 of Med icine Pneumococcal 2018-04-10 Completed [facility] ge Polysaccharide 00:00:00 of Medicin e Influenza 2017-03-28 Completed [facility] Quadrivalent 3YRS+ 00:00:00 of Med icine Pneumococcal 2017-03-28 Completed [facility] ge 13-valent Conjugate 00:00:00 of Me dicine Vaccine Influenza 2017-03-28 Completed [facility] Quadrivalent 3YRS+ 00:00:00 of Med icine Pneumococcal 2017-03-28 Completed [facility] ge 13-valent Conjugate 00:00:00 of Me dicine Vaccine Influenza 2017-03-28 Completed [facility] Quadrivalent 3YRS+ 00:00:00 of Med icine Pneumococcal 2017-03-28 Completed [facility] ge 13-valent Conjugate 00:00:00 of Me dicine Vaccine Influenza 2017-03-28 Completed [facility] Quadrivalent 3YRS+ 00:00:00 of Med icine Pneumococcal 2017-03-28 Completed [facility] ge 13-valent Conjugate 00:00:00 of Me dicine Vaccine Influenza 2017-03-28 Completed [facility] Quadrivalent 3YRS+ 00:00:00 of Med icine Influenza 2017-03-28 Completed [facility] Quadrivalent 3YRS+ 00:00:00 of Med icine Pneumococcal 2017-03-28 Completed [facility] ge 13-valent Conjugate 00:00:00 of Me dicine Vaccine Pneumococcal 2017-03-28 Completed [facility] ge 13-valent Conjugate 00:00:00 of Me dicine Vaccine Influenza 2017-03-28 Completed [facility] Quadrivalent 3YRS+ 00:00:00 of Med icine Pneumococcal 2017-03-28 Completed [facility] ge 13-valent Conjugate 00:00:00 of Me dicine Vaccine Influenza 2011-04-26 Completed [facility] Quadrivalent 3YRS+ 00:00:00 of Med icine Influenza 2011-04-26 Completed [facility] Quadrivalent 3YRS+ 00:00:00 of Med icine Influenza 2011-04-26 Completed [facility] Quadrivalent 3YRS+ 00:00:00 of Med icine Influenza 2011-04-26 Completed [facility] Quadrivalent 3YRS+ 00:00:00 of Med icine Influenza 2011-04-26 Completed [facility] Quadrivalent 3YRS+ 00:00:00 of Med icine Influenza 2011-04-26 Completed [facility] Quadriv[facility] 3YRS+ 00:00:00 of Med icine Influenza 2011-04-26 Completed [facility] 3YRS+ 00:00:00 of Med icine Vital Signs Vital Name Observation Time Observation Value Comments Source HEIGHT 2020-01-30 00:00:00 162.6 cm WEIGHT 2020-01-30 00:00:00 56.2 kg HEIGHT 2019-12-18 00:00:00 157.5 cm WEIGHT 2019-12-18 00:00:00 60.963 kg HEIGHT 2019-11-30 00:00:00 157.5 cm WEIGHT 2019-11-30 00:00:00 62.1 kg WEIGHT 2021-08-03 09:03:00 66.4 kg WEIGHT 2021-08-02 23:00:00 65.681 kg HEIGHT 2021-08-02 23:00:00 162.6 cm WEIGHT 2021-08-03 09:03:00 66.4 kg WEIGHT 2021-08-02 23:00:00 65.681 kg HEIGHT 2021-08-02 23:00:00 162.6 cm Systolic blood 2020-06-07 20:30:00 101 mm[Hg] [facility] pressure Medicine Diastolic blood 2020-06-07 20:30:00 65 mm[Hg] [facility] of pressure Medicine Heart rate 2020-06-07 20:30:00 65 /min [facility] Body height 2020-06-07 20:30:00 162.6 cm [facility] Body weight 2020-06-07 20:30:00 62.143 kg [facility] ol[facility] of Medicine BMI 2020-06-07 20:30:00 23.52 kg/m2 [facility] Systolic blood 2020-06-07 20:30:00 101 mm[Hg] [facility] of pressure Medicine Diastolic blood 2020-06-07 20:30:00 65 mm[Hg] [facility] of pressure Medicine Heart rate 2020-06-07 20:30:00 65 /min [facility] Medicine Body height 2020-06-07 20:30:00 162.6 cm [facility] Body weight 2020-06-07 20:30:00 62.143 kg [facility] BMI 2020-06-07 20:30:00 23.52 kg/m2 [facility] Systolic blood 2020-04-05 19:46:00 127 mm[Hg] [facility] of pressure Medicine Diastolic blood 2020-04-05 19:46:00 61 mm[Hg] [facility] of pressure Medicine Heart rate 2020-04-05 19:46:00 40 /min [facility] Body height 2020-04-05 19:46:00 162.6 cm [facility] Body weight 2020-04-05 19:46:00 62.143 kg [facility] BMI 2020-04-05 19:46:00 23.52 kg/m2 [facility] Systolic blood 2020-04-05 19:46:00 127 mm[Hg] [facility] pressure Medicine Diastolic blood 2020-04-05 19:46:00 61 mm[Hg] [facility] of pressure Medicine Heart rate 2020-04-05 19:46:00 40 /min [facility] Body height 2020-04-05 19:46:00 162.6 cm [facility] Body weight 2020-04-05 19:46:00 62.143 kg [facility] BMI 2020-04-05 19:46:00 23.52 kg/m2 [facility] Systolic blood 2020-04-05 20:08:00 127 mm[Hg] [facility] pressure Medicine Diastolic blood 2020-04-05 20:08:00 61 mm[Hg] [facility] of pressure Medicine Heart rate 2020-04-05 20:08:00 40 /min [facility] Body height 2020-04-05 20:08:00 162.6 cm [facility] Body weight 2020-04-05 20:08:00 62.143 kg [facility] BMI 2020-04-05 20:08:00 23.52 kg/m2 [facility] Systolic blood 2020-04-05 20:08:00 127 mm[Hg] [facility] pressure Medicine Diastolic blood 2020-04-05 20:08:00 61 mm[Hg] [facility] pressure Medicine Heart rate 2020-04-05 20:08:00 40 /min [facility] Body height 2020-04-05 20:08:00 162.6 cm [facility] Body weight 2020-04-05 20:08:00 62.143 kg [facility] BMI 2020-04-05 20:08:00 23.52 kg/m2 [facility] Systolic blood 2020-02-26 19:57:00 119 mm[Hg] [facility] pressure Medicine Diastolic blood 2020-02-26 19:57:00 82 mm[Hg] [facility] Medicine Heart rate 2020-02-26 19:57:00 79 /min [facility] Body height 2020-02-26 19:57:00 162.6 cm [facility] Body weight 2020-02-26 19:57:00 61.236 kg [facility] BMI 2020-02-26 19:57:00 23.17 kg/m2 [facility] Systolic blood 2020-02-26 19:57:00 119 mm[Hg] [facility] pressure Medicine Diastolic blood 2020-02-26 19:57:00 82 mm[Hg] [facility] Medicine Heart rate 2020-02-26 19:57:00 79 /min [facility] Body height 2020-02-26 19:57:00 162.6 cm [facility] Body weight 2020-02-26 19:57:00 61.236 kg [facility] BMI 2020-02-26 19:57:00 23.17 kg/m2 [facility] HEIGHT 2020-01-30 00:00:00 162.6 cm WEIGHT 2020-01-30 00:00:00 56.2 kg Systolic blood 2020-01-28 15:35:00 124 mm[Hg] [facility] pressure Medicine Diastolic blood 2020-01-28 15:35:00 72 mm[Hg] [facility] Medicine Heart rate 2020-01-28 15:35:00 68 /min [facility] Medicine Body height 2020-01-28 15:35:00 162.6 cm [facility] Body weight 2020-01-28 15:35:00 61.689 kg [facility] BMI 2020-01-28 15:35:00 23.34 kg/m2 [facility] Medicine Systolic blood 2020-01-28 15:35:00 124 mm[Hg] [facility] Medicine Diastolic blood 2020-01-28 15:35:00 72 mm[Hg] [facility] Medicine Heart rate 2020-01-28 15:35:00 68 /min [facility] Medicine Body height 2020-01-28 15:35:00 162.6 cm [facility] Body weight 2020-01-28 15:35:00 61.689 kg [facility] BMI 2020-01-28 15:35:00 23.34 kg/m2 [facility] Systolic blood 2020-01-21 16:29:00 120 mm[Hg] [facility] pressure Medicine Diastolic blood 2020-01-21 16:29:00 64 mm[Hg] [facility] Medicine Heart rate 2020-01-21 16:29:00 70 /min [facility] Body temperature 2020-01-21 16:29:00 37 Terese [facility] Body height 2020-01-21 16:29:00 162.6 cm [facility] Body weight 2020-01-21 16:29:00 61.689 kg [facility] BMI 2020-01-21 16:29:00 23.34 kg/m2 [facility] Systolic blood 2020-01-21 16:29:00 120 mm[Hg] [facility] pressure Medicine Diastolic blood 2020-01-21 16:29:00 64 mm[Hg] [facility] Heart rate 2020-01-21 16:29:00 70 /min [facility] Body temperature 2020-01-21 16:29:00 37 Terese [facility] Body height 2020-01-21 16:29:00 162.6 cm [facility] Body weight 2020-01-21 16:29:00 61.689 kg [facility] BMI 2020-01-21 16:29:00 23.34 kg/m2 [facility] HEIGHT 2019-12-18 00:00:00 157.5 cm WEIGHT 2019-12-18 00:00:00 60.963 kg HEIGHT 2019-11-30 00:00:00 157.5 cm WEIGHT 2019-11-30 00:00:00 62.1 kg Systolic blood 2020-02-17 13:00:00 162 mm[Hg] [facility] Diastolic blood 2020-02-17 13:00:00 74 mm[Hg] [facility] Heart rate 2020-02-17 13:00:00 69 /min [facility] Body temperature 2020-02-17 13:00:00 35.78 Terese [facility] Respiratory rate 2020-02-17 13:00:00 18 /min [facility] Oxygen saturation in 2020-02-17 13:00:00 100 /min [facility] Arterial blood by Medical Ce nter Pulse oximetry Procedures Procedure Date / Time Performed Performing Clinician Desmond rios POCT-GLUCOSE METER 2020-02-17 12:55:00 Manuel Gimenez [facility] POCT-GLUCOSE METER 2020-02-17 07:48:00 Manuel Gimenez [facility] POCT-GLUCOSE METER 2020-02-16 21:14:00 Manuel Gimenez [facility] POCT-GLUCOSE METER 2020-02-16 16:28:00 Manuel Gimenez [facility] POCT-GLUCOSE METER 2020-02-16 11:35:00 Manuel Gimenez [facility] POCT-GLUCOSE METER 2020-02-16 07:34:00 Casey Gimenezeb Bianchi [facility] POCT-GLUCOSE METER 2020-02-15 21:19[facility] POCT-GLUCOSE METER 2020-02-15 15:51:00 [facility] POCT-GLUCOSE METER 2020-02-15 12:16:00 [facility] POCT-GLUCOSE METER 2020-02-15 08:01:00 [facility] CBC W/PLT COUNT & AUTO 2020-02-15 04:24:00 [facility] Plan of Care Planned Activity [...] Test 00:00:00 [code = FALLS RISK Medical enter SCREENING] Future Scheduled 2020-03-[address] [facility] Test 00:00:00 measurement Medical Center (procedure) [code = 32425286] Future Scheduled 2018-08-[address] [facility] [facility] - Test 00:00:00 WELLNESS (YEAR 2 or Medical Center FIRST YEAR if no IPPE) [code = MEDICARE ANNUAL WELLNESS (YEAR 2 or FIRST YEAR if no IPPE)] Future Scheduled 2017-05-30 Urine screening for [facility] - Test 00:00:00 protein (procedure) Medical Center [code = 118856711] Future Scheduled 1996 SHINGLES VACCINES ([address] [facility] - Test 00:00:00 of 2) [code = Medical Center SHINGLES VACCINES (1 of 2)] Future Scheduled 1965 DTAP/TDAP/TD [facility] Test 00:[facility]:00 VACCINES (1 - Tdap) Medical Center [code = DTAP/TDAP/TD VACCINES (1 - Tdap)] Future Scheduled [address] [facility] - Test 00:00:00 SCREENING [code = Medical Ce nter HEPATITIS C SCREENING] Future Scheduled 1958 COVID-19 VACCINE (1) [facility] - Test 00:00:00 [code = COVID-[address] VACCINE (1)] Future Scheduled [address] DIABETIC EYE EXAM [facility] - Test 00:00:00 [code = DIABETIC EYE Medical Center EXAM] Future Scheduled [address] [facility] - Test 00:00:00 examination Medical Center (regime/therapy) [code = 321379892] Future Scheduled [address] [facility] - Test 00:00:00 malignant neoplasm Medical C enter of breast (procedure) [code = 448116130] Future Scheduled [address] [facility] [facility] - Test 00:00:00 malignant neoplasm Medical C enter of colon (procedure) [code = 536331818] Future Scheduled FALL SCREEN [code = [facility] [place] Test FALL SCREEN] of Medicine Future Scheduled STAPLE REMOVAL [code Ordered: [facility] College Test = NOCPT] 02/26/2020 of Medicine Future Scheduled COLON CANCER [facility] [employer] Test SCREENING: of Medicine COLONOSCOPY [code = COLON CANCER SCREENING: COLONOSCOPY] Future Scheduled TETANUS SHOT (ADULT) [facility] Test [code = TETANUS SHOT of Medi cine (ADULT)] Future Scheduled Diabetic foot [facility] Col lege Test examination of [facility] (regime/therapy) [code = 553994011] Future Scheduled ANNUAL DIABETIC [facility] C [facility]lege Test RETINOPATHY of Medicine SCREENING [code = ANNUAL DIABETIC RETINOPATHY SCREENING] Future Scheduled HEPATITIS C [facility] [employer] Test SCREENING [code = of Medicin e HEPATITIS C SCREENING] Future Scheduled ZOSTER VACCINE (1 of [facility] [employer] Test 2) [code = ZOSTER of Medicin e VACCINE (1 of 2)] Future Scheduled OSTEOPOROSIS [facility] [employer] Test SCREENING [code = of Medicin e OSTEOPOROSIS SCREENING] Future Scheduled MEDICARE IPPE [facility] Col lege Test (WELCOME TO of Medicine MEDICARE) [code = MEDICARE IPPE (WELCOME TO MEDICARE)] Future Scheduled FLU VACCINE > 6 [facility] C [facility]lege Test MONTHS [code = FLU of Medici ne VACCINE > 6 MONTHS] Future Scheduled MAMMOGRAM ANNUAL [facility] College Test [code = MAMMOGRAM of Medicin e ANNUAL] Future Scheduled FALL SCREEN [code = [facility] [employer] [facility] FALL SCREEN] of Medicine Future Scheduled CT DEBRIDEMENT OPEN Ordered: [facility] [facility] [employer] Test WOUND 20 SQ CM< 03/15/2020 of Medicine [code = 33276] Future Scheduled COLON CANCER [facility] [employer] Test SCREENING: of Medicine COLONOSCOPY [code = COLON CANCER SCREENING: COLONOSCOPY] Future Scheduled TETANUS SHOT (ADULT) [employer] Test [code = TETANUS SHOT of Medi cine (ADULT)] Future Scheduled Diabetic foot [facility] Col [facility]ge Test examination of Medicine (regime/therapy) [code = 350278805] Future Scheduled ANNUAL DIABETIC [facility] Test RETINOPATHY of Medicine SCREENING [code = ANNUAL DIABETIC RETINOPATHY SCREENING] Future Scheduled HEPATITIS C [facility] [place] [facility] SCREENING [code = of Medicin e HEPATITIS C SCREENING] Future Scheduled ZOSTER VACCINE (1 of [employer] Test 2) [code = ZOSTER of Medicin e VACCINE (1 of 2)] Future Scheduled OSTEOPOROSIS [facility] [employer] Test SCREENING [code = of Medicin e OSTEOPOROSIS SCREENING] Future Scheduled MEDICARE IPPE [facility] Test (WELCOME TO of Medicine MEDICARE) [code = MEDICARE IPPE (WELCOME TO MEDICARE)] Future Scheduled FLU VACCINE > 6 [facility] Test MONTHS [code = FLU of Medici ne VACCINE > 6 MONTHS] Future Scheduled MAMMOGRAM ANNUAL [facility] College Test [code = MAMMOGRAM of Medicin e ANNUAL] Future Scheduled FALL SCREEN [code = [employer] [facility] FALL SCREEN] of Medicine Future Scheduled COLON CANCER [facility] [employer] Test SCREENING: of Medicine COLONOSCOPY [code = COLON CANCER SCREENING: COLONOSCOPY] Future Scheduled TETANUS SHOT (ADULT) [employer] Test [code = TETANUS SHOT of Medi cine (ADULT)] Future Scheduled Diabetic foot [facility]ge Test examination of Medicine (regime/therapy) [code = [id number]] Future Scheduled ANNUAL DIABETIC [facility] Test RETINOPATHY of Medicine SCREENING [code = ANNUAL DIABETIC RETINOPATHY SCREENING] Future Scheduled HEPATITIS C [facility] [employer] Test SCREENING [code = of Medicin e HEPATITIS C SCREENING] Future Scheduled ZOSTER VACCINE (1 of [employer] Test 2) [code = ZOSTER of Medicin e VACCINE (1 of 2)] Future Scheduled OSTEOPOROSIS [facility] [place] [facility] SCREENING [code = of Medicin e OSTEOPOROSIS SCREENING] Future Scheduled MEDICARE IPPE [facility] Test (WELCOME TO of Medicine MEDICARE) [code = MEDICARE IPPE (WELCOME TO MEDICARE)] Future Scheduled FLU VACCINE > 6 [facility] C ollege Test MONTHS [code = FLU of Medici ne VACCINE > 6 MONTHS] Future Scheduled MAMMOGRAM ANNUAL [facility] College Test [code = MAMMOGRAM of Medicin e ANNUAL] Future Scheduled FALL SCREEN [code = [employer] [facility] FALL SCREEN] of Medicine Future Scheduled CT DEBRIDEMENT OPEN Ordered: [employer] Test WOUND 20 SQ CM< 04/06/2020 of Medicine [code = 16348] Future Scheduled COLON CANCER [facility] [employer] Test SCREENING: of Medicine COLONOSCOPY [code = COLON CANCER SCREENING: COLONOSCOPY] Future Scheduled TETANUS SHOT (ADULT) [employer] [facility] [code = TETANUS SHOT of Medi cine (ADULT)] Future Scheduled Diabetic foot [facility] Test examination of Medicine (regime/therapy) [code = 189547182] Future Scheduled ANNUAL DIABETIC [facility] C ollege Test RETINOPATHY of Medicine SCREENING [code = ANNUAL DIABETIC RETINOPATHY SCREENING] Future Scheduled HEPATITIS C [facility] [employer] Test SCREENING [code = of Medicin e HEPATITIS C SCREENING] Future Scheduled ZOSTER VACCINE (1 of [employer] Test 2) [code = ZOSTER of Medicin e VACCINE (1 of 2)] Future Scheduled OSTEOPOROSIS [facility] [employer] Test SCREENING [code = of Medicin e OSTEOPOROSIS SCREENING] Future Scheduled MEDICARE IPPE [facility] Col lege Test (WELCOME TO of Medicine MEDICARE) [code = MEDICARE IPPE (WELCOME TO MEDICARE)] Future Scheduled FLU VACCINE > 6 [facility] C ollege Test MONTHS [code = FLU of Medici ne VACCINE > 6 MONTHS] Future Scheduled MAMMOGRAM ANNUAL [facility] College Test [code = MAMMOGRAM of Medicin e ANNUAL] Future Scheduled FALL SCREEN [code = [employer] [facility] FALL SCREEN] of Medicine Future Scheduled CT DEBRIDEMENT OPEN Ordered: [employer] Test WOUND 20 SQ CM< 06/08/2020 of Medicine [code = 06277] Future Scheduled COLON CANCER [facility] [employer] Test SCREENING: of Medicine COLONOSCOPY [code = COLON CANCER SCREENING: COLONOSCOPY] Future Scheduled TETANUS SHOT (ADULT) [employer] Test [code = TETANUS SHOT of Medi cine (ADULT)] Future Scheduled Diabetic foot [facility] Test examination of Medicine (regime/therapy) [code = 574215571] Future Scheduled ANNUAL DIABETIC [facility] Test RETINOPATHY of Medicine SCREENING [code = ANNUAL DIABETIC RETINOPATHY SCREENING] Future Scheduled HEPATITIS C [facility] [place] [employer] Test SCREENING [code = of Medicin e HEPATITIS C SCREENING] Future Scheduled ZOSTER VACCINE (1 of [employer] Test 2) [code = ZOSTER of Medicin e VACCINE (1 of 2)] Future Scheduled OSTEOPOROSIS [facility] Test SCREENING [code = of Medicin e OSTEOPOROSIS SCREENING] Future Scheduled MEDICARE IPPE [facility] Test (WELCOME TO of Medicine MEDICARE) [code = MEDICARE IPPE (WELCOME TO MEDICARE)] Future Scheduled FLU VACCINE > 6 [facility] C ollege Test MONTHS [code = FLU of Medici ne VACCINE > 6 MONTHS] Future Scheduled MAMMOGRAM ANNUAL [facility] College Test [code = MAMMOGRAM of Medicin e ANNUAL] Future Scheduled FALL SCREEN [code = [employer] [facility] FALL SCREEN] of Medicine Future Scheduled COLON CANCER [facility] [place] [employer] Test SCREENING: of Medicine COLONOSCOPY [code = COLON CANCER SCREENING: COLONOSCOPY] Future Scheduled MAMMOGRAM ANNUAL [facility] Test [code = MAMMOGRAM of Medicin e ANNUAL] Future Scheduled TETANUS SHOT (ADULT) [employer] [facility] [code = TETANUS SHOT of Medi cine (ADULT)] Future Scheduled HEPATITIS C [facility] [employer] Test SCREENING [code = of Medicin e HEPATITIS C SCREENING] Future Scheduled FALL SCREEN [code = [employer] [facility] FALL SCREEN] of Medicine Future Scheduled OSTEOPOROSIS [facility] [employer] Test SCREENING [code = of Medicin e OSTEOPOROSIS SCREENING] Future Scheduled MEDICARE IPPE [facility] Test (WELCOME TO of Medicine MEDICARE) [code = MEDICARE IPPE (WELCOME TO MEDICARE)] Future Scheduled FLU VACCINE > 6 [facility] Test MONTHS [code = FLU of Medici ne VACCINE > 6 MONTHS] Future Scheduled COLON CANCER [facility] [employer] Test SCREENING: of Medicine COLONOSCOPY [code = COLON CANCER SCREENING: COLONOSCOPY] Future Scheduled MAMMOGRAM ANNUAL [facility] College Test [code = MAMMOGRAM of Medicin e ANNUAL] Future Scheduled TETANUS SHOT (ADULT) [employer] [facility] [code = TETANUS SHOT of Medi cine (ADULT)] Future Scheduled HEPATITIS C [facility] [employer] Test SCREENING [code = of Medicin e HEPATITIS C SCREENING] Future Scheduled ZOSTER VACCINE (1 of [employer] Test 2) [code = ZOSTER of Medicin e VACCINE (1 of 2)] Future Scheduled OSTEOPOROSIS [facility] [employer] Test SCREENING [code = of Medicin e OSTEOPOROSIS SCREENING] Future Scheduled MEDICARE IPPE [facility] Col lege Test (WELCOME TO of Medicine MEDICARE) [code = MEDICARE IPPE (WELCOME TO MEDICARE)] Future Scheduled FLU VACCINE > 6 [facility] C ollege Test MONTHS [code = FLU of Medici ne VACCINE > 6 MONTHS] Future Scheduled US ARTERIAL LEGS 1 Occurrences [facility] Test BILATERAL [code = starting of Medicin e 75954-8] 04/05/2020 until 04/05/2021 Future Scheduled US ARTERIAL LEG 1 Occurrences [facility] Test RIGHT [code = 50912] starting of Medi cine 02/26/2020 until 02/25/2021 Encounters Start End Encounter Admission Attending Care Care Encounter Source Date/Time Date/Time Type Type Clinicians Facility Department ID 2021-04-18 Outpatient R JIGNA [facility] OPH [id number] [facility] 01:36:11 CARMEN [facility] 2021-04-17 Emergency [facility] [id number] Univers 18:13:26 [facility] 2021-03-23 Outpatient OLIVIA STOVALL Surgery [id number] SLE 03:18:04 GABRIEL 2019-12-18 Inpatient EL DEL SLE PM\\T\\R [id number] SLEH 16:18:00 DARIUSZ ALEJO 2019-12-01 Inpatient ER SUTARIAOLIVIA Internal [id number] SLE 02:34:00 MARTIN Med 2021-08-02 2021-08-05 Inpatient ER ARICHERELLE OrdoñezR [facility] Vascular [id number] SLEH 22:45:00 10:59:00 Srinivasa 2020-12-14 2020-12-14 Outpatient R [facility] [id number] Univers 16:15:00 16:15:00 [id number] [facility] 2020-12-14 2020-12-14 Outpatient R JIGNA [facility] [id number] Univers 16:15:00 16:15:00 CARMEN [facility] 2020-10-25 2020-10-25 Emergency Phillip [facility] [id number] 15:56:00 17:25:00 Juana Wiggins 350.1.13.10 [place] 4.2.7.2.686 [place] [id number] 2020-09-23 2020-09-23 Orders Doctor KHAN 1.2.840.114 [id number] 00:00:00 00:00:00 Only Unassigned, PATTY 350.1.13.10 [facility] 4.2.7.2.686 [id number] [id number] 2020-07-07 2020-07-07 Telephone Oneil TXJOSE ANGEL 1.2.840.114 [id number] 00:00:00 00:00:00 Vanesa Wiggins 350.1.13.10 [place] 4.2.7.2.686 Professbrenda [id number] [address] 2020-06-07 2020-06-07 Office HUANG Stovall 1.2.840.114 [id number] 13:56:25 16:57:48 Visit Gabrielkimber [place] AMBULATOR 350.1.13.21 Y 0.2.7.2.686 [id number] 2020-06-07 2020-06-07 Office HUANG Stovall 1.2.840.[id number] [place] [address] 13:56:25 16:57:48 Visit Gabrielkibmer [place] AMBULATOR 350.1.13.21 College Y 0.2.7.2.686 of [id number] [facility] 825 e 2020-05-07 2020-05-07 Orders Doctor BILL 1.2.840.114 [id number] 00:00:00 00:00:00 Only Unassigned, PATTY 350.1.13.10 [facility] 4.2.7.2.686 [id number] 009 2020-04-05 2020-04-05 Office HUANG Stovall 1.2.840.114 [id number] 14:32:01 15:37:58 Visit Gabrielkimber [place] AMBULATOR 350.1.13.21 Y 0.2.7.2.686 [id number] 2020-04-05 2020-04-05 Office HUANG Stovall 1.2.840.[id number] [place] [address] 14:32:01 15:37:58 Visit Gabrielkimber [place] AMBULATOR 350.1.13.21 College Y 0.2.7.2.686 of [id number] [facility] 825 e 2020-04-05 2020-04-05 Office HUANG Franco 1.2.840.114 [id number] [facility] 14:31:13 15:37:49 Visit Giovanny AMBULATOR 350.1.13.21 College Lionel Y 0.2.7.2.686 of [id number] [facility] 825 e 2020-04-05 2020-04-05 Office HUANG Franco 1.2.840.114 [id number] 14:31:13 15:37:49 Visit Gioavnny AMBULATOR 350.1.13.21 Lionel Y 0.2.7.2.686 [id number] [facility] 2020-03-15 2020-03-15 Office Doloresmaynor, BCJeri 1.2.840.[id number] [place] [address] 15:50:40 16:41:06 Visit Gabriel [place] AMBULATOR 350.1.13.21 College Y 0.2.7.2.686 of [id number] [place] [address] e 2020-03-15 2020-03-15 Office Ricardo, BCJeri 1.2.840.114 [id number] 15:50:40 16:41:06 Visit Gabriel [place] AMBULATOR 350.1.13.21 Y 0.2.7.2.686 [id number] [facility] 2020-02-26 2020-02-26 Office Ricardo, HUANG 1.2.840.114 [id number] [facility] 14:43:47 15:34:04 Visit Gabriel [place] AMBULATOR 350.1.13.21 College Y 0.2.7.2.686 of [id number] [place] [address] e 2020-02-26 2020-02-26 Office Doloresmaynor, HUANG 1.2.840.114 [id number] 14:43:47 15:34:04 Visit Gabriel [place] AMBULATOR 350.1.13.21 Y 0.2.7.2.686 [id number] [facility] 2020-02-20 2020-02-20 Outpatient Braulio RIGGS [facility] [id number] Univers 13:00:00 13:00:00 VANESA [id number] galindo [facility] 2020-02-20 2020-02-20 Outpatient Braulio RIGGS [facility] [id number] Univers 13:00:00 13:00:00 VANESA [facility] 2020-02-10 2020-02-17 Hospital Gabriel Cavazos [facility] [id number] [facility] 11:05:00 16:30:00 Encounter Manuel Gimenez, [facility] 2020-02-06 2020-02-06 Outpatient EL SLE SLE [id number] [facility] 00:00:00 00:00:00 2020-02-02 2020-02-02 Outpatient [place] [id number] [facility] 15:20:00 15:20:00 VANESA [id number] [facility] 2020-02-02 2020-02-02 Outpatient Braulio RIGGS [facility] [id number] Univers 15:20:00 15:20:00 VANESA [facility] 2020-01-28 2020-01-28 Office HUANG Stovall 1.2.840.114 [id number] [facility] 10:21:38 10:36:38 Visit Gabriel Everett AMBULATOR 350.1.13.21 College Y 0.2.7.2.686 of [id number] [facility] 825 e 2020-01-28 2020-01-28 Office HUANG Stovall 1.2.840.114 [id number] 10:21:38 10:36:38 Visit Gabriel Balta AMBULATOR 350.1.13.21 Y 0.2.7.2.686 [id number] [facility] 2020-01-27 2020-01-27 Outpatient Braulio RIGGS [facility] [id number] 94P-20 Univers 09:20:00 09:20:00 VANESA [id number] [facility] 2020-01-21 2020-01-21 Office Jason Cortez 1.2.840.114 [id number] [facility] 11:23:24 12:51:12 Visit AMBULATOR 350.1.13.21 College Y 0.2.7.2.686 of [id number] [facility] 800 e 2020-01-21 2020-01-21 Office Jason Cortez 1.2.840.114 [id number] 11:23:24 12:51:12 Visit AMBULATOR 350.1.13.21 Y 0.2.7.2.686 [id number] 2020-01-16 2020-01-16 Outpatient ONEIL [facility] [id number] 94P-20 Univers 13:00:00 13:00:00 VANESA [id number] [facility] 2019-12-15 2019-12-15 Orders Doctor BILL 1.2.840.114 [id number] 00:00:00 00:00:00 Only Unassigned, PATTY 350.1.13.10 [facility] 4.2.7.2.686 [id number] 2019-12-11 2019-12-11 Outpatient R [place]SE [place] [id number] 94P-20 Univers 14:00:00 14:00:00 CESAR [id number] [facility] 2019-12-11 2019-12-11 [facility] [id number] Univers 14:00:00 14:00:00 CESAR [facility] 2019-11-21 2019-11-21 Outpatient [place] [id number] 94P-20 Univers 15:00:00 15:00:00 VANESA [facility] 2019-11-21 2019-11-21 [facility] [id number] Univers 15:00:00 15:00:00 VANESA [facility] 2019-11-21 2019-11-21 Telemedici [facility] 1.2.840.114 [id number] 08:57:41 09:37:41 ne Visit Vanesa Wiggins 350.1.13.10 [place] 4.2.7.2.686 Professio [id number] [address] 2019-10-30 2019-10-30 Telephone [facility] 1.2.840.114 [id number] 00:00:00 00:00:00 Vanesa Wiggins 350.1.13.10 [place] 4.2.7.2.686 Professio [id number] [address] 2019-10-22 2019-10-22 Outpatient R [facility] [id number] Univers 17:20:00 17:20:00 [id number] [facility] 2019-10-22 2019-10-22 Outpatient R [facility] [id number] Univers 17:20:00 17:20:00 [facility] 2019-10-17 2019-10-21 Outpatient X SEGUNDO, [facility] [id number] Univers 11:59:57 16:28:00 SHERYL [facility] 2019-09-11 2019-09-11 [facility] [id number] Univers 07:20:00 07:20:00 VANESA [facility] 2019-09-08 2019-09-08 Emergency X ISABELLE, [facility] ERT [id number] Univers 15:36:09 17:50:00 SYBIL [facility] 2019-09-01 2019-09-01 Emergency X MORAIMA, [facility] ERT [id number] Univers 12:01:40 15:56:00 ESTER [facility] 2019-08-25 2019-08-25 Outpatient R ERAN, [facility] [id number] 4P-20 Univers 14:45:00 14:45:00 ISH [id number] [facility] 2019-08-25 2019-08-25 [facility] [id number] Univers 14:45:00 14:45:00 ISH [facility] 2019-08-20 2019-08-20 [facility] [id number] Univers 14:20:00 14:20:00 CESAR [facility] 2018-11-04 2018-11-04 [facility] [id number] 94P-20 Univers 00:00:00 00:00:00 VANESA [id number] [facility] Results Test Description Test Time Test Comments Results Result Comments Source POCT-GLUCOSE METER 2021-08-05 08:10:14 Test Item Value Reference Range Interpretation Comme nts POC-GLUCOSE METER (BEAKER) 190 mg/dL 70-110 H : TESTED AT [place] [address] SUZAN (test code = 1538) SIDHU T X, [address]: Churn Tender/Techni herson ID = [id number] for Juancarlos Cruz on POCT-GLUCOSE [id number] 21:35:17 Test Item Value Reference Range Interpretation Comments POC-GLUCOSE METER 218 mg/dL 70-110 H : TESTED A T [facility] 6720 (BEAKER) (test code = [facility], 1538) 79789: Churn Tender/Techni herson ID = [id number] for CRESENCIO BAH POCT-GLUCOSE [id number] 17:04:53 Test Item Value Reference Range Interpretation Comments POC-GLUCOSE METER 226 mg/dL 70-110 H : TESTED A T [facility] 6720 (BEAKER) (test code = [facility], 1538) 31464: Churn Tender/Techni herson ID = [id number] for Sa iban, Chante POCT-GLUCOSE [id number] 12:23:58 Test Item Value Reference Range Interpretation Comments POC-GLUCOSE METER 261 mg/dL 70-110 H : TESTED A T [facility] 6720 (BEAKER) (test code = [facility], 1538) 13969: Churn Tender/Techni herson ID = [id number] for Sa ntos, Chante POCT-GLUCOSE [id number] 08:18:47 Test Item Value Reference Range Interpretation Comments POC-GLUCOSE METER 255 mg/dL 70-110 H : TESTED A T [facility] 6720 (BEAKER) (test code = [facility], 1538) 30739: Churn Tender/Techni herson ID = [id number] for Sa ntos, Chante BASIC METABOLIC [id number] 01:50:06 Test Item Value Reference Range Interpretation Comments SODIUM (BEAKER) 131 meq/L 136-145 L (test code = 381) POTASSIUM (BEAKER) 3.9 meq/L 3.5-5.1 (test code = 379) CHLORIDE (BEAKER) 99 meq/L 98-107 (test code = 382) CO2 (BEAKER) (test 24 meq/L 22-29 code = 355) BLOOD UREA NITROGEN 23 mg/dL 7-21 H (BEAKER) (test code = 354) CREATININE (BEAKER) 1.05 mg/dL 0.57-1.25 (test code = 358) GLUCOSE RANDOM 320 mg/dL 70-105 H (BEAKER) (test code = 652) CALCIUM (BEAKER) 8.8 mg/dL 8.4-10.2 (test code = 697) EGFR (BEAKER) (test 51 mL/min/1.73 ESTIMA MARGO GFR IS code = 1092) sq m NOT ACCURATE CREATININE CLEARANCE IN PREDICTING GLOMERULAR FILTRATION RATE . ESTIMATED GFR I S NOT APPLICABLE FOR DIALYSIS PATIEN TS. Churn Tender ID - [id number] 01:17:47 Test Item Value Reference Range Interpretation Comments PARTIAL THROMBOPLASTIN TIME 88.6 seconds 22.5-36.0 H (BEAKER) (test code = 760) CBC W/PLT COUNT & AUTO [id number] 01:11:45 Test Item Value Reference Range Interpretation Comments WHITE BLOOD CELL COUNT (BEAKER) 11.4 K/ L 3.5-10.5 H (test code = 775) RED BLOOD CELL COUNT (BEAKER) 4.13 M/ L 3.93-5.22 (test code = 761) HEMOGLOBIN (BEAKER) (test code = 12.3 GM/DL 11.2-15.7 410) HEMATOCRIT (BEAKER) (test code = 37.2 % 34.1-44.9 411) MEAN CORPUSCULAR VOLUME (BEAKER) 90.1 fL 79.4-94.8 (test code = 753) MEAN CORPUSCULAR HEMOGLOBIN 29.8 pg 25.6-32.2 (BEAKER) (test code = 751) MEAN CORPUSCULAR HEMOGLOBIN CONC 33.1 GM/DL 32.2-35.5 (BEAKER) (test code = 752) RED CELL DISTRIBUTION WIDTH 11.9 % 11.7-14.4 (BEAKER) (test code = 412) PLATELET COUNT (BEAKER) (test 267 K/CU MM 150-450 code = 756) MEAN PLATELET VOLUME (BEAKER) 10.3 fL 9.4-12.3 (test code = 754) NUCLEATED RED BLOOD CELLS 0 /100 WBC 0-0 (BEAKER) (test code = 413) NEUTROPHILS RELATIVE PERCENT 53 % (BEAKER) (test code = 429) LYMPHOCYTES RELATIVE PERCENT 38 % (BEAKER) (test code = 430) MONOCYTES RELATIVE PERCENT 6 % (BEAKER) (test code = 431) EOSINOPHILS RELATIVE PERCENT 2 % (BEAKER) (test code = 432) BASOPHILS RELATIVE PERCENT 0 % (BEAKER) (test code = 437) NEUTROPHILS ABSOLUTE COUNT 6.11 K/ L 1.56-6.13 (BEAKER) (test code = 670) LYMPHOCYTES ABSOLUTE COUNT 4.32 K/ L 1.18-3.74 H (BEAKER) (test code = 414) MONOCYTES ABSOLUTE COUNT (BEAKER) 0.71 K/ L 0.24-0.36 H (test code = 415) EOSINOPHILS ABSOLUTE COUNT 0.20 K/ L 0.04-0.36 (BEAKER) (test code = 416) BASOPHILS ABSOLUTE COUNT (BEAKER) 0.04 K/ L 0.01-0.08 (test code = 417) IMMATURE GRANULOCYTES-RELATIVE 0 % 0-1 PERCENT (BEAKER) (test code = 2801) POCT-GLUCOSE [id number] 21:31:18 Test Item Value Reference Range Interpretation Comments POC-GLUCOSE METER 378 mg/dL 70-110 H : [facility] (test code = [facility], 1538) 11898: Churn Tender/Techni herson ID = [id number] for CRESENCIO BAH [id number] 19:24:38 Test Item Value Reference Range Interpretation Comments PARTIAL THROMBOPLASTIN TIME 78.7 seconds 22.5-36.0 H (BEAKER) (test code = 760) POCT-GLUCOSE [id number] 16:58:02 Test Item Value Reference Range Interpretation Comments POC-GLUCOSE METER 235 mg/dL 70-110 H : TESTED A T [facility] 6720 ([facility]) (test code = [facility], 1538) 60660: Churn Tender/Techni herson ID = [id number] for HU NTER, HIWITHA CT, CTA AAA, W/ CLINT.EXT.[id number] 15:57:00 [facility] : 1945 Sex: FFINAL REPORT CTA ABDOMEN AND PELVIS WITH BILATERAL RUNOFF STUDIES, WITHOUT AND WITH IV CONTRAST History provided: Lower extremity arterial embolism Comparison study none TECHNIQUE: Noncontrast imaging was initially performed through the abdomen and pelvis. During rapid IV contrast administration, helical CT was performed from the diaphragm to the feet. 3-D reformats and MIPS were provided. FINDINGS: NONVASCULAR FINDINGS: Lung bases unremarkable. Visualized portion of the liver unremarkable. Spleen normal in size. Normal-appearing pancreas. 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 Kidneys show no calculi or hydronephrosis. No dilated bowel loops. Sigmoid diverticulosis without evidence of diverticulitis. Regional osseous structures intact. VASCULAR FINDINGS: The abdominal aorta is of normal caliber and widely patent throughout. Widely patent celiac, SMA, renal arteries, and ISAAC. Common and external iliac arteries are of normal caliber and are widely patent bilaterally. Evaluation of the right lower extremity shows long segment stenting of the superficial femoral artery, which is widely patent with no significant in-stent stenosis. The stent terminates at the entry into the abductor canal. The right popliteal artery is of normal caliber and widely patent.There is been previous stenting of the right anterior tibial artery, which is thrombosedjust beyond the stented portion and reconstitutes at the level of the ankle by collateral flow.. Theright peroneal artery is patent in a straight line fashion. The right posterior tibial artery is occluded throughout much of its course, but reconstitutes at the level of the ankle by a peroneal collateral. Evaluation of the left lower extremity shows widely patent superficial femoral artery, with no significant stenosis and excellent flow into calcified though widely patent popliteal artery. The anterior tibial and peroneal arteries are patent in a straight line fashion throughout the calf. The posterior tibial artery is proximally occluded but reconstitutes within the distal calf. IMPRESSION: Normal flow through the abdominal aorta into widely patent iliac vessels. Long segment stenting of the right SFA which is patent with good flow to the right popliteal artery. Diminished flow within the right calf as discussed above. Left SFA and popliteal artery are widely patent, with diminished flow in the left posterior tibial artery. COMMENT: This exam was performed according to our departmental dose-optimization program, which includes automated exposure control, adjustment of the mA and/or kV according to patient size and/or use of iterative reconstruction technique. Signed: Curt Wright MDReportVerified Date/Time: 08/03/2021 15:57:48 Reading Location: [facility] Radiology Reading Room Electr onically signed by: CURT WRIGHT on 08/03/2021 03:57 PMHEMOGLOBIN A1C 2021-08-03 12:37:44 Test Item Value Reference Range Interpretation Comments HEMOGLOBIN A1C 12.9 % See_Comment H [Automated m essage] ELECTROPHORESIS ([employer]) The system which (test code = 3811) generated this result transmitted ref erence range: <=5.6%. The reference range was not used to int erpret this result as normal/abnormal . "The A1c is measured using a NGSP-certified method. HbA1c value equal to or greater than 6.5% as thediagnosis cutoff for diabetes. An HbA1c value of 5.7- 6.4% indicates increased risk for diabetes (prediabetes)."Churn Tender ID - ADMPOCT- GLUCOSE [id number] 12:00:32 Test Item Value Reference Range Interpretation Comments POC-GLUCOSE METER 373 mg/dL 70-110 H : [facility] (test code = TESTED AT [facility] 6720 1538) [facility], [address]: Churn Tender/Techni herson ID = [id number] for HU NTER, HIWITHA [id number] 11:11:35 Test Item Value Reference Range Interpretation Comments PARTIAL THROMBOPLASTIN TIME 49.3 seconds 22.5-36.0 H ([facility] (test code = 760) POCT-GLUCOSE [id number] 07:09:18 Test Item Value Reference Range Interpretation Comments POC-GLUCOSE METER 262 mg/dL 70-110 H : TESTED A T [facility] 6720 ([facility]) (test [facility] = [facility] 1538) [address]: Churn Tender/Techni herson ID = [id number] for HU NTER, HIWITHA [id number] 04:08:41 Test Item Value Reference Range Interpretation Comments PARTIAL THROMBOPLASTIN TIME 39.5 seconds 22.5-36.0 H (BEAKER) (test code = 760) [id number] 04:08:05 Test Item Value Reference Range Interpretation Comments MAGNESIUM (BEAKER) (test code = 2.1 mg/dL 1.6-2.6 627) Churn Tender ID - PALOMA MCOMPREHENSIVE METABOLIC [id number] 04:08:05 Test Item Value Reference Range Interpretation Comments TOTAL PROTEIN 7.0 gm/dL 6.0-8.3 (BEAKER) (test code = 770) ALBUMIN (BEAKER) 3.6 g/dL 3.5-5.0 (test code = 1145) ALKALINE PHOSPHATASE 102 U/L 40-150 (BEAKER) (test code = 346) BILIRUBIN TOTAL 2.2 mg/dL 0.2-1.2 H (BEAKER) (test code = 377) SODIUM (BEAKER) (test 134 meq/L 136-145 L code = 381) POTASSIUM (BEAKER) 4.5 meq/L 3.5-5.1 (test code = 379) CHLORIDE (BEAKER) 97 meq/L 98-107 L (test code = 382) CO2 (BEAKER) (test 30 meq/L 22-29 H code = 355) BLOOD UREA NITROGEN 17 mg/dL 7-21 (BEAKER) (test code = 354) CREATININE (BEAKER) 0.86 mg/dL 0.57-1.25 (test code = 358) GLUCOSE RANDOM 302 mg/dL 70-105 H (BEAKER) (test code = 652) CALCIUM (BEAKER) 9.2 mg/dL 8.4-10.2 (test code = 697) AST (SGOT) (BEAKER) 14 U/L 5-34 (test code = 353) ALT (SGPT) (BEAKER) 23 U/L 6-55 (test code = 347) EGFR (BEAKER) (test 65 mL/min/1.73 ESTIMA MARGO GFR IS code = 1092) sq m NOT ACCURATE CREATININE CLEARANCE IN PREDICTING GLOMERULAR FILTRATION RATE . ESTIMATED GFR I S NOT APPLICABLE FOR DIALYSIS PATIEN TS. Churn Tender ID - PALOMA MSpecimen slightly ictericPROTHROMBIN [id number] 04:07:37 Test Item Value Reference Range Interpretation Comments PROTIME (BEAKER) 13.3 seconds 11.9-14.2 (test code = 759) INR (BEAKER) (test 1.03 See_Comment [Automat ed message] code = 370) The system [employer] generated this result transmitted ref erence range: <=5.90. The reference range was not used to int erpret this result as normal/abnormal . RECOMMENDED COUMADIN/WARFARIN INR THERAPY RANGESSTANDARD DOSE: 2.0 - 3.0 Includes: PROPHYLAXIS forvenous thrombosis, systemic embolization; TREATMENT for venous thrombosis and/or pulmonary embolus.HIGH RISK: Target INR is 2.5-3.5 for patients with mechanical heart valves.CBC W/PLT COUNT & AUTO DIFFERENTIAL 2021-08-03 03:41:15 Test Item Value Reference Range Interpretation Comments WHITE BLOOD CELL COUNT (BEAKER) 10.3 K/ L 3.5-10.5 (test code = 775) RED BLOOD CELL COUNT (BEAKER) 4.29 M/ L 3.93-5.22 (test code = 761) HEMOGLOBIN (BEAKER) (test code = 12.7 GM/DL 11.2-15.7 410) HEMATOCRIT (BEAKER) (test code = 38.6 % 34.1-44.9 411) MEAN CORPUSCULAR VOLUME (BEAKER) 90.0 fL 79.4-94.8 (test code = 753) MEAN CORPUSCULAR HEMOGLOBIN 29.6 pg 25.6-32.2 (BEAKER) (test code = 751) MEAN CORPUSCULAR HEMOGLOBIN CONC 32.9 GM/DL 32.2-35.5 (BEAKER) (test code = 752) RED CELL DISTRIBUTION WIDTH 12.1 % 11.7-14.4 (BEAKER) (test code = 412) PLATELET COUNT (BEAKER) (test 269 K/CU MM 150-450 code = 756) MEAN PLATELET VOLUME (BEAKER) 10.1 fL 9.4-12.3 (test code = 754) NUCLEATED RED BLOOD CELLS 0 /100 WBC 0-0 (BEAKER) (test code = 413) NEUTROPHILS RELATIVE PERCENT 57 % (BEAKER) (test code = 429) LYMPHOCYTES RELATIVE PERCENT 35 % (BEAKER) (test code = 430) MONOCYTES RELATIVE PERCENT 6 % (BEAKER) (test code = 431) EOSINOPHILS RELATIVE PERCENT 1 % (BEAKER) (test code = 432) BASOPHILS RELATIVE PERCENT 0 % (BEAKER) (test code = 437) NEUTROPHILS ABSOLUTE COUNT 5.90 K/ L 1.56-6.13 (BEAKER) (test code = 670) LYMPHOCYTES ABSOLUTE COUNT 3.60 K/ L 1.18-3.74 (BEAKER) (test code = 414) MONOCYTES ABSOLUTE COUNT (BEAKER) 0.63 K/ L 0.24-0.36 H (test code = 415) EOSINOPHILS ABSOLUTE COUNT 0.12 K/ L 0.04-0.36 (BEAKER) (test code = 416) BASOPHILS ABSOLUTE COUNT (BEAKER) 0.03 K/ L 0.01-0.08 (test code = 417) IMMATURE GRANULOCYTES-RELATIVE 0 % 0-1 PERCENT (BEAKER) (test code = 2801) POC-Glucose [id number] 13:05:00 Test Item Value Reference Range Interpretation Comments POC-Glucose Meter (test 200 mg/dL 70-110 H : TE STED AT [facility] code = 1538) 6720 [facility], 770 [address]: Churn Tender/Techni herson ID = [id number] for CAMILA CHU Deana Lab Interpretation (test Abnormal code = 68509-6) [facility] [id number] 13:05:00 Test Item Value Reference Range Interpretation Comments POC-GLUCOSE METER 200 mg/dL 70-110 H : TESTED A T [facility] 6720 (BEAKER) (test code = [facility], 1538) [address]: Churn Tender/Techni herson ID = [id number] for ARISTEO QUEEN POCT-GLUCOSE [id number] 07:59:00 Test Item Value Reference Range Interpretation Comments POC-GLUCOSE METER 191 mg/dL 70-110 H : TESTED A T [facility] 6720 (BEAKER) (test code = [facility], 1538) 289[address]: Churn Tender/Techni herson ID = [id number] for ARISTEO QUEEN POCT-GLUCOSE [id number] 21:25:00 Test Item Value Reference Range Interpretation Comments POC-GLUCOSE METER 287 mg/dL 70-110 H : TESTED A T [facility] 6720 (BEAKER) (test code = [facility], [facility]) [address]: Churn Tender/Techni herson ID = [id number] for ANNE FUENTES POCT-GLUCOSE [id number] 16:39:00 Test Item Value Reference Range Interpretation Comments POC-GLUCOSE METER 232 mg/dL 70-110 H : TESTED A T [facility] 6720 (BEAKER) (test code = [facility], [facility]) [address]: Churn Tender/Techni herson ID = [id number] for ARISTEO QUEEN POCT-GLUCOSE [id number] 11:46:00 Test Item Value Reference Range Interpretation Comments POC-GLUCOSE METER 197 mg/dL 70-110 H : TESTED A T [facility] 6720 (BEAKER) (test code = [facility], [facility]) [address]: Churn Tender/Techni herson ID = [id number] for ARISTEO QUEEN POCT-GLUCOSE [id number] 07:45:00 Test Item Value Reference Range Interpretation Comments POC-GLUCOSE METER 119 mg/dL 70-110 H : TESTED A T [facility] 6720 (BEAKER) (test code = [facility], [facility]) 42746: Churn Tender/Techni herson ID = [id number] for ARISTEO QUEEN POCT-GLUCOSE [id number] 21:30:00 Test Item Value Reference Range Interpretation Comments POC-GLUCOSE METER 165 mg/dL 70-110 H : TESTED A T [facility] 6720 (BEAKER) (test code = [facility], [facility]) 66069: Churn Tender/Techni herson ID = [id number] for DARWIN JACKSONW POCT-GLUCOSE [id number] 16:02:00 Test Item Value Reference Range Interpretation Comments POC-GLUCOSE METER 162 mg/dL 70-110 H : TESTED A T [facility] 6720 (BEAKER) (test code = [facility], [facility]) [address]: Churn Tender/Techni herson ID = [id number] for rhys Tarah POCT-GLUCOSE [id number] 12:27:00 Test Item Value Reference Range Interpretation Comments POC-GLUCOSE METER 190 mg/dL 70-110 H : TESTED A T [facility] 6720 (BEAKER) (test code = [facility], 1538) [address]: Churn Tender/Techni herson ID = [id number] for Tarah Schwab POCT-GLUCOSE [id number] 08:12:00 Test Item Value Reference Range Interpretation Comments POC-GLUCOSE METER 160 mg/dL 70-110 H : TESTED A T [facility] 6720 (BEAKER) (test code = [place] [facility], 1538) [address]: Churn Tender/Techni herson ID = [id number] for Tarah Schwab CBC with platelet count + automated [id number] 04:55:00 Test Item Value Reference Range Interpretation Comments WBC (test code = 6690-2) 11.1 See_Comment H [A utomated message] The system [employer] generated this result transmitted ref erence range: 3.5 - 10 .5 K/L. The refe rence range was not u sed to interpret this result as normal/abnor mal. RBC (test code = 789-8) 4.12 See_Comment [Au tomated message] The system [employer] generated this result transmitted ref erence range: 3.93 - 5 .22 M/L. The refe rence range was not u sed to interpret this result as normal/abnor mal. MCHC (test code = 786-4) 31.8 See_Comment L [A utomated message] The system [employer] generated this result transmitted ref erence range: [...] See_Comment [Aut omated message] 777-3) The system [employer] generated this result transmitted ref erence range: 150 - 45 0 K/CU MM. The referen ce range was not u sed to interpret this result as normal/abnor mal. MPV (test code = 9.2 fL 9.4-12.3 L 89478-3) nRBC (test code = 413) 0 See_Comment [Aut omated message] The system [employer] generated this result transmitted ref erence range: [...] See_Comment [Aut omated message] 670) The system [employer] generated this result transmitted ref erence range: 1.56 - 6 .13 K/L. The refe rence range was not u sed to interpret this result as normal/abnor mal. # Lymphs (test code = 4.22 See_Comment H [Auto mated message] 414) The system [employer] generated this result transmitted ref erence range: 1.18 - 3 .74 K/L. The refe rence range was not u sed to interpret this result as normal/abnor mal. # Monos (test code = 0.76 See_Comment H [Autom ated message] 415) The system [employer] generated this result transmitted ref erence range: 0.24 - 0 .36 K/L. The refe rence range was not u sed to interpret this result as normal/abnor mal. # Eos (test code = 416) 0.39 See_Comment H [Au tomated message] The system [employer] generated this result transmitted ref erence range: 0.04 - 0 .36 K/L. The refe rence range was not u sed to interpret this result as normal/abnor mal. # Baso (test code = 417) 0.03 See_Comment [A utomated message] The system [employer] generated this result transmitted ref erence range: 0.01 - 0 .08 K/L. The refe rence range was not u sed to interpret this result as normal/abnor mal. Immature 0 % 0-1 Granulocytes-Relative (test code = 2801) Lab Interpretation (test Abnormal code = 93241-7) [facility] W/PLT COUNT & AUTO [id number] 04:55:00 Test Item Value Reference Range Interpretation [...] PERCENT (BEAKER) (test code = 2801) POCT-GLUCOSE [id number] 21:28:00 Test Item Value Reference Range Interpretation Comments POC-GLUCOSE METER 217 mg/dL 70-110 H : TESTED A T [facility] 6720 (BEAKER) (test code = [facility], [facility]) [address]: Churn Tender/Techni herson ID = [id number] for AN ANNE MCNAMARA POCT-GLUCOSE [id number] 16:08:00 Test Item Value Reference Range Interpretation Comments POC-GLUCOSE METER 140 mg/dL 70-110 H : TESTED A T [facility] 6720 (BEAKER) (test code = [facility], [facility]) [id number]: Churn Tender/Techni herson ID = [id number] for Tarah Schwab POCT-GLUCOSE [id number] 13:12:00 Test Item Value Reference Range Interpretation Comments POC-GLUCOSE METER 218 mg/dL 70-110 H : TESTED A T [facility] 6720 (BEAKER) (test code = [facility]) [id number]: Churn Tender/Techni herson ID = [id number] for Tarah Schwab POCT-GLUCOSE [id number] 08:19:00 Test Item Value Reference Range Interpretation Comments POC-GLUCOSE METER 246 mg/dL 70-110 H : TESTED A T [facility] 6720 (BEAKER) (test code = [facility], [facility]) 25254: Churn Tender/Techni herson ID = [id number] for Jennifer Schwabfer CBC W/PLT COUNT & AUTO [id number] 06:06:00 Test Item Value Reference Range Interpretation [...] PERCENT (BEAKER) (test code = 2801) POCT-GLUCOSE [id number] 21:12:00 Test Item Value Reference Range Interpretation Comments POC-GLUCOSE METER 186 mg/dL 70-110 H : TESTED Bo Arthur [facility] 6720 (BEAKER) (test code = [facility], 1538) 25371: Churn Tender/Techni herson ID = [id number] for NILDA LLAMAS POCT-GLUCOSE [id number] 15:54:00 Test Item Value Reference Range Interpretation Comments POC-GLUCOSE METER 185 mg/dL 70-110 H : TESTED A T [facility] 6720 (BEAKER) (test code = [facility] Braulio [facility], 1538) 05148: Churn Tender/Techni herson ID = [id number] for GONZÁLEZ JC POCT-GLUCOSE [id number] 11:38:00 Test Item Value Reference Range Interpretation Comments POC-GLUCOSE METER 214 mg/dL 70-110 H : TESTED A T [facility] 6720 (BEAKER) (test code = [facility], 1538) 85906: Churn Tender/Techni herson ID = [id number] for GONZÁLEZ JC POCT-GLUCOSE [id number] 08:01:00 Test Item Value Reference Range Interpretation Comments POC-GLUCOSE METER 148 mg/dL 70-110 H : TESTED A T [facility] 6720 (BEAKER) (test code = [facility], 1538) 52002: Churn Tender/Techni herson ID = [id number] for GONZÁLEZ JC CBC W/PLT COUNT & AUTO [id number] 04:50:00 Test Item Value Reference Range Interpretation [...] PERCENT (BEAKER) (test code = 2801) POCT-GLUCOSE [id number] 21:14:00 Test Item Value Reference Range Interpretation Comments POC-GLUCOSE METER 192 mg/dL 70-110 H : TESTED A T [facility] 6720 (BEAKER) (test code = [facility], [facility]) 98642: Churn Tender/Techni herson ID = [id number] for CAIT VELA POCT-GLUCOSE [id number] 16:33:00 Test Item Value Reference Range Interpretation Comments POC-GLUCOSE METER 141 mg/dL 70-110 H : TESTED A T [facility] 6720 (BEAKER) (test code = [facility], 1538) 96842: Churn Tender/Techni herson ID = [id number] for ARISTEO QUEEN POCT-GLUCOSE [id number] 11:49:00 Test Item Value Reference Range Interpretation Comments POC-GLUCOSE METER 134 mg/dL 70-110 H : TESTED A T [facility] 6720 (BEAKER) (test code = [facility], 153) 29973: Churn Tender/Techni herson ID = [id number] for ARISTEO QUEEN PROTHROMBIN [id number] 09:36:00 Test Item Value Reference Range Interpretation [...] S NOT APPLICABLE FOR DIALYSIS PATIEN TS. Churn Tender ID - NTPPOCT-GLUCOSE [id number] 08:02:00 Test Item Value Reference Range Interpretation Comments POC-GLUCOSE METER 122 mg/dL 70-110 H : TESTED A T [facility] 6720 (BEAKER) (test code = [facility], 1538) 48607: Churn Tender/Techni herson ID = [id number] for ARISTEO QUEEN POCT-GLUCOSE [id number] 22:30:00 Test Item Value Reference Range Interpretation Comments POC-GLUCOSE METER 122 mg/dL 70-110 H : TESTED A T [facility] 6720 (BEAKER) (test code = [facility], 1538) 31509: Churn Tender/Techni herson ID = [id number] for MARILU ODONNELL POCT-GLUCOSE [id number] 15:33:00 Test Item Value Reference Range Interpretation Comments POC-GLUCOSE METER 200 mg/dL 70-110 H : TESTED A T [facility] 6720 (BEAKER) (test code = [facility], 1538) 24125: Churn Tender/Techni herson ID = [id number] for ARISTEO QUEEN BASIC METABOLIC [id number] 12:06:00 Test Item Value Reference Range Interpretation [...] S NOT APPLICABLE FOR DIALYSIS PATIEN TS. Churn Tender ID - JORGE ALBERTO CPOCT-GLUCOSE [id number] 11:59:00 Test Item Value Reference Range Interpretation Comments POC-GLUCOSE METER 129 mg/dL 70-110 H : TESTED A T [facility] 6720 (BEAKER) (test code = [place] [facility], 1538) 82392: Churn Tender/Techni herson ID = [id number] for ARISTEO QUEEN CBC (HEMOGRAM ONLY)2020-02-11 11:51:00 [...] 0-0 (BEAKER) (test code = 413) POCT-GLUCOSE [id number] 11:26:00 Test Item Value Reference Range Interpretation Comments POC-GLUCOSE METER 138 mg/dL 70-110 H : TESTED A T [facility] 6720 (BEAKER) (test code = [place] [facility], 1538) 17751: Churn Tender/Techni herson ID = [id number] for AN ANNE MCNAMARA BASIC METABOLIC [id number] 08:02:00 Test Item Value Reference Range Interpretation [...] S NOT APPLICABLE FOR DIALYSIS PATIEN TS. Churn Tender ID - JORGE ALBERTO CCBC W/PLT COUNT & AUTO [id number] 08:00:00 Test Item Value Reference Range Interpretation [...] PERCENT (BEAKER) (test code = 2801) POCT-GLUCOSE [id number] 07:57:00 Test Item Value Reference Range Interpretation Comments POC-GLUCOSE METER 100 mg/dL 70-110 : TESTED A T [facility] 6720 (BEAKER) (test code = [facility], 1538) 51591: Churn Tender/Techni herson ID = [id number] for ARISTEO QUEEN VITAMIN B12 AND [id number] 04:11:00 Test Item Value Reference Range Interpretation Comments VITAMIN B12 (BEAKER) (test code = 521 pg/mL 213816 774) FOLATE (BEAKER) (test code = 362) 18.00 ng/mL >=7.00 Churn Tender ID - EDASIIRON, TIBC, % SAT. (WITHOUT FERRITIN)2020-02-10 23:57:00 Test Item Value Reference Range Interpretation Comments IRON (BEAKER) (test code = 547) 24.0 ug/dL 40.0-160.0 L TOTAL IRON BINDING CAPACITY 253 ug/dL 250-450 (BEAKER) (test code = 769) IRON % SATURATION (2) (BEAKER) 9 % 20-55 L (test code = 2590) Churn Tender ID - PIAYA LPOCT-GLUCOSE [id number] 18:15:00 Test Item Value Reference Range Interpretation Comments POC-GLUCOSE METER 143 mg/dL 70-110 H : TESTED A T [facility] 6720 (BEAKER) (test code = [facility], 1538) 19979: Churn Tender/Techni herson ID = [id number] for DEMOND REYES POCT-GLUCOSE [id number] 11:36:00 Test Item Value Reference Range Interpretation Comments POC-GLUCOSE METER 181 mg/dL 70-110 H : TESTED A T [facility] 6720 (BEAKER) (test code = [facility], 1538) 90488: Churn Tender/Techni herson ID = [id number] for JEANINE RIOJAS SARS-COV2/RT-PCR ([facility])2020-02-07 12:36:00 Test Item Value Reference Range Interpretation Comments SARS-COV2/RT-PCR (test Negative Not Detected, Negative, code = 3578903) See external report for linked test SARS-COV-2 PERFORMING LAB [facility] (test code = 8497220) Negative result for this test determines that [...] 564(g) of the Act.Fact Sheet for Healthcare Providers:https://www.Keynoir/sites/default/files/product/documents/Fact_Shee e_PI_Jlovysaum_Fllh_QEGC-MjZ-2.pdfFact Sheet for Healthcare Patients:https://www.Ke[employer]oir/sites/default/files/product/ documents/Dnmu_Yhgse_Wumjtvpu_Hfsb_RUOF-ImX-8.pdfPerforming Laboratory:[facility] [place] [address].[place], [place] [address]IFOBD METABOLIC PANEL 2020-02-06 12:10:00 Test Item Value [...] S NOT APPLICABLE FOR DIALYSIS PATIEN TS. Churn Tender ID - [id number] 11:50:00 Test Item Value Reference Range Interpretation Comments HEMOGLOBIN (BEAKER) (test code = 12.0 GM/DL 11.2-15.7 410) Churn Tender ID - [id number] CULTURE + SMEAR (NON-SPUTUM)2020-01-26 [...] code = 994) seen FUNGUS CULTURE + [id number] 15:27:00 Test Item Value Reference Range Interpretation Comments CULTURE (BEAKER) (test No fungus isolated in code = 1095) 28 days FUNGUS SMEAR (BEAKER) <1+ budding yeast (test code = 1406) FUNGUS CULTURE + [id number] 16:04:00 Test Item Value Reference Range Interpretation Comments CULTURE (BEAKER) (test No fungus isolated in code = 1095) 28 days FUNGUS SMEAR (BEAKER) No fungi seen (test code = 1406) FUNGUS CULTURE + [id number] 16:21:00 Test Item Value Reference Range Interpretation Comments CULTURE (BEAKER) (test No fungus isolated in code = 1095) 28 days FUNGUS SMEAR (BEAKER) No fungi seen (test code = 1406) POCT-GLUCOSE [id number] 11:49:00 Test Item Value Reference Range Interpretation Comments POC-GLUCOSE METER 94 mg/dL 70-110 : TESTED A T [facility] 7200 (BEAKER) (test code = [facility], 1538) [facility] 7703 0: Churn Tender/Techni herson ID = [id number] for RACHELLE GRAY POCT-GLUCOSE [id number] 07:08:00 Test Item Value Reference Range Interpretation Comments POC-GLUCOSE METER 87 mg/dL 70-110 : TESTED A T [facility] 7200 (BEAKER) (test code = [facility], 1538) [place] [address] 0: Churn Tender/Techni herson ID = [id number] for POLLO CABALLERO POCT-GLUCOSE [id number] 00:12:00 Test Item Value Reference Range Interpretation Comments POC-GLUCOSE METER 111 mg/dL 70-110 H : TESTED A T [facility] 7200 (BEAKER) (test code [place] [facility], = 1538) [place] [address] 0: Churn Tender/Techni herson ID = [id number] for POLLO CABALLERO POCT-GLUCOSE [id number] 16:26:00 Test Item Value Reference Range Interpretation Comments POC-GLUCOSE METER 146 mg/dL 70-110 H : TESTED A T [facility] 7200 (BEAKER) (test code [place] [facility], = 1538) [place] [address] 0: Churn Tender/Techni herson ID = [id number] for RACHELLE GRAY PV, VENOUS DOPPLER ARM, [id number] 13:49:00Reason for exam:->LUE pain and nodule, r/o [...] MDReport Verified Date/Time: 12/30/2019 13:49:05 Reading Location: [address] Body Reading RoomAddendum EndsFINAL REPORT [...] Bergort Verified Date/Time: 12/29/2019 18:22:22 Reading Location: [facility] B1 [id number] Consult Reading Room POCT-GLUCOSE [id number] 12:31:00 Test Item Value Reference Range Interpretation Comments POC-GLUCOSE METER 122 mg/dL 70-110 H : TESTED A T [facility] 7200 (BEAKER) (test code [place] [facility], = 1538) [place] [address] 0: Churn Tender/Techni herson ID = [id number] for JAUN CAMARGO POCT-GLUCOSE [id number] 06:42:00 Test Item Value Reference Range Interpretation Comments POC-GLUCOSE METER 96 mg/dL 70-110 : TESTED A T [facility] 7200 (BEAKER) (test code = [facility], 1538) [place] [address] 0: Churn Tender/Techni herson ID = [id number] for RAMIRO PRESLEY POCT-GLUCOSE [id number] 20:26:00 Test Item Value Reference Range Interpretation Comments POC-GLUCOSE METER 164 mg/dL 70-110 H : TESTED A T [facility] 7200 (BEAKER) (test code [place] [facility], = 1538) [place] [address] 0: Churn Tender/Techni herson ID = [id number] for POLLO CABALLERO POCT-GLUCOSE [id number] 16:59:00 Test Item Value Reference Range Interpretation Comments POC-GLUCOSE METER 199 mg/dL 70-110 H : TESTED A T [facility] 7200 (BEAKER) (test code [place] [facility], = 1538) [place] [address] 0: Churn Tender/Techni herson ID = [id number] for VISHALKALYN LO POCT-GLUCOSE [id number] 11:17:00 Test Item Value Reference Range Interpretation Comments POC-GLUCOSE METER 113 mg/dL 70-110 H : TESTED A T [facility] 7200 (BEAKER) (test code [place] [facility], = 1538) [place] [address] 0: Churn Tender/Techni herson ID = [id number] for KALYN MARTINEZ POCT-GLUCOSE [id number] 06:28:00 Test Item Value Reference Range Interpretation Comments POC-GLUCOSE METER 107 mg/dL 70-110 : TESTED A T [facility] 7200 (BEAKER) (test code [facility], = 1538) [place] [address] 0: Churn Tender/Techni herson ID = [id number] for ROSY FAUST BASIC METABOLIC [id number] 05:30:00 Test Item Value Reference Range Interpretation [...] 9.4-12.3 L (test code = 754) POCT-GLUCOSE [id number] 20:59:00 Test Item Value Reference Range Interpretation Comments POC-GLUCOSE METER 173 mg/dL 70-110 H : TESTED A T [facility] 7200 (BEAKER) (test code [place] [facility], = 1538) [place] [address] 0: Churn Tender/Techni herson ID = [id number] for BENNY BERENICEJA POCT-GLUCOSE [id number] 16:41:00 Test Item Value Reference Range Interpretation Comments POC-GLUCOSE METER 151 mg/dL 70-110 H : TESTED A T [facility] 7200 (BEAKER) (test code [place] [facility], = 1538) [place] [address] 0: Churn Tender/Techni herson ID = [id number] for JOHN ERA, AVIVA POCT-GLUCOSE [id number] 12:07:00 Test Item Value Reference Range Interpretation Comments POC-GLUCOSE METER 130 mg/dL 70-110 H : TESTED A T [facility] 7200 (BEAKER) (test code [facility] [facility], = 1538) [place] [address] 0: Churn Tender/Techni herson ID = [id number] for JOHN ERA, AVIVA POCT-GLUCOSE [id number] 06:28:00 Test Item Value Reference Range Interpretation Comments POC-GLUCOSE METER 99 mg/dL 70-110 : TESTED A T [facility] 7200 (BEAKER) (test code = [facility], 1538) [place] [address] 0: Churn Tender/Techni herson ID = [id number] for BENNY , ROSY POCT-GLUCOSE [id number] 20:35:00 Test Item Value Reference Range Interpretation Comments POC-GLUCOSE METER 230 mg/dL 70-110 H : TESTED A T [facility] 7200 (BEAKER) (test code [facility] [facility], = 1538) [place] [address] 0: Churn Tender/Techni herson ID = [id number] for ROSY FAUST POCT-GLUCOSE [id number] 16:19:00 Test Item Value Reference Range Interpretation Comments POC-GLUCOSE METER 184 mg/dL 70-110 H : TESTED A T [facility] 7200 (BEAKER) (test code [facility] [facility], = 1538) [place] [address] 0: Churn Tender/Techni herson ID = [id number] for JOHN ERA, AVIVA POCT-GLUCOSE [id number] 11:24:00 Test Item Value Reference Range Interpretation Comments POC-GLUCOSE METER 120 mg/dL 70-110 H : TESTED A T [facility] 7200 (BEAKER) (test code [facility] [facility], = 1538) [place] [address] 0: Churn Tender/Techni herson ID = [id number] for JOHN ERA, AVIVA POCT-GLUCOSE [id number] 06:15:00 Test Item Value Reference Range Interpretation Comments POC-GLUCOSE METER 80 mg/dL 70-110 : TESTED A T [facility] 7200 (BEAKER) (test code = [facility], 1538) [place] [address] 0: Churn Tender/Techni herson ID = [id number] for JAVAN , BC POCT-GLUCOSE [id number] 20:23:00 Test Item Value Reference Range Interpretation Comments POC-GLUCOSE METER 140 mg/dL 70-110 H : TESTED A T [facility] 7200 (BEAKER) (test code [facility] [facility], = 1538) [place] [address] 0: Churn Tender/Techni herson ID = [id number] for JAVAN , CB POCT-GLUCOSE [id number] 16:13:00 Test Item Value Reference Range Interpretation Comments POC-GLUCOSE METER 163 mg/dL 70-110 H : TESTED A T [facility] 7200 (BEAKER) (test code [facility] [facility], = 1538) [place] [address] 0: Churn Tender/Techni herson ID = [id number] for WALDEMAR BAL COMPREHENSIVE METABOLIC [id number] 12:38:00 Test Item Value Reference Range Interpretation [...] PATIEN TS. CBC W/PLT COUNT & AUTO [id number] 12:19:00 Test Item Value Reference Range Interpretation [...] PERCENT (BEAKER) (test code = 2801) POCT-GLUCOSE [id number] 11:45:00 Test Item Value Reference Range Interpretation Comments POC-GLUCOSE METER 122 mg/dL 70-110 H : TESTED A T [facility] 7200 (BEAKER) (test code [facility], = 1538) [facility] 7703 0: Churn Tender/Techni herson ID = [id number] for WALDEMAR BAL POCT-GLUCOSE [id number] 06:46:00 Test Item Value Reference Range Interpretation Comments POC-GLUCOSE METER 105 mg/dL 70-110 : TESTED A T [facility] 7200 (BEAKER) (test code [facility] [facility], = 1538) [place] [address] 0: Churn Tender/Techni herson ID = [id number] for POLLO CABALLERO POCT-GLUCOSE [id number] 20:54:00 Test Item Value Reference Range Interpretation Comments POC-GLUCOSE METER 159 mg/dL 70-110 H : TESTED A T [facility] 7200 (BEAKER) (test code [facility] [facility], = 1538) [place] [address] 0: Churn Tender/Techni herson ID = [id number] for POLLO CABALLERO POCT-GLUCOSE [id number] 17:04:00 Test Item Value Reference Range Interpretation Comments POC-GLUCOSE METER 133 mg/dL 70-110 H : TESTED A T [facility] 7200 (BEAKER) (test code [facility] [facility], = 1538) [place] [address] 0: Churn Tender/Techni herson ID = [id number] for OMIW SHANNAN, SYRIETA POCT-GLUCOSE [id number] 11:21:00 Test Item Value Reference Range Interpretation Comments POC-GLUCOSE METER 124 mg/dL 70-110 H : TESTED A T [facility] 7200 (BEAKER) (test code [facility] [facility], = 1538) [place] [address] 0: Churn Tender/Techni herson ID = [id number] for OMIW SHANNAN, SYRIETA POCT-GLUCOSE [id number] 06:43:00 Test Item Value Reference Range Interpretation Comments POC-GLUCOSE METER 90 mg/dL 70-110 : TESTED A T [facility] 7200 (BEAKER) (test code = [facility], 1538) [place] [address] 0: Churn Tender/Techni herson ID = [id number] for POLLO CABALLERO POCT-GLUCOSE [id number] 20:55:00 Test Item Value Reference Range Interpretation Comments POC-GLUCOSE METER 169 mg/dL 70-110 H : TESTED A T [facility] 7200 (BEAKER) (test code [facility] [facility], = 1538) [place] [address] 0: Churn Tender/Techni herson ID = [id number] for POLLO CABALLERO POCT-GLUCOSE [id number] 16:35:00 Test Item Value Reference Range Interpretation Comments POC-GLUCOSE METER 164 mg/dL 70-110 H : TESTED A T [facility] 7200 (BEAKER) (test code [facility] [facility], = 1538) [place] [address] 0: Churn Tender/Techni herson ID = [id number] for WALDEMAR BAL POCT-GLUCOSE [id number] 11:25:00 Test Item Value Reference Range Interpretation Comments POC-GLUCOSE METER 174 mg/dL 70-110 H : TESTED A T [facility]200 (BEAKER) (test code [facility] [facility], = 1538) [place] [address] 0: Churn Tender/Techni herson ID = [id number] for WALDEMAR BAL POCT-GLUCOSE [id number] 06:32:00 Test Item Value Reference Range Interpretation Comments POC-GLUCOSE METER 108 mg/dL 70-110 : TESTED A T [facility]200 (BEAKER) (test code [facility] [facility], = 1538) [place] [address] 0: Churn Tender/Techni herson ID = [id number] for BENNY , ROSY POCT-GLUCOSE [id number] 20:44:00 Test Item Value Reference Range Interpretation Comments POC-GLUCOSE METER 194 mg/dL 70-110 H : TESTED A T [facility]200 (BEAKER) (test code [facility] [facility], = 1538) [place] [address] 0: Churn Tender/Techni herson ID = [id number] for BENNY , ROSY POCT-GLUCOSE [id number] 16:59:00 Test Item Value Reference Range Interpretation Comments POC-GLUCOSE METER 156 mg/dL 70-110 H : TESTED A T [facility]200 (BEAKER) (test code [place] [facility], = 1538) [place] [address] 0: Churn Tender/Techni herson ID = [id number] for RACHELLE GRAY POCT-GLUCOSE [id number] 11:42:00 Test Item Value Reference Range Interpretation Comments POC-GLUCOSE METER 181 mg/dL 70-110 H : TESTED A T [facility]200 (BEAKER) (test code [place] [facility], = 1538) [place] [address] 0: Churn Tender/Techni herson ID = [id number] for RACHELLE GRAY POCT-GLUCOSE [id number] 06:10:00 Test Item Value Reference Range Interpretation Comments POC-GLUCOSE METER 83 mg/dL 70-110 : TESTED A T [facility]200 (BEAKER) (test code = [facility], 1538) [place] [address] 0: Churn Tender/Techni herson ID = [id number] for BENNY , ROSY POCT-GLUCOSE [id number] 20:42:00 Test Item Value Reference Range Interpretation Comments POC-GLUCOSE METER 221 mg/dL 70-110 H : TESTED A T [facility]200 (BEAKER) (test code [place] [facility], = 1538) [place] [address] 0: Churn Tender/Techni herson ID = [id number] for BENNY , ROSY ANAEROBIC [id number] 18:21:00 Test Item Value Reference Range Interpretation Comments CULTURE (BEAKER) (test No anaerobes isolated code = 1095) POCT-GLUCOSE [id number] 16:23:00 Test Item Value Reference Range Interpretation Comments POC-GLUCOSE METER 193 mg/dL 70-110 H : TESTED A T [facility] (BEAKER) (test code [place] [facility], = 1538) [place] [address] 0: Churn Tender/Techni herson ID = [id number] for JOHN ERA, AVIVA POCT-GLUCOSE [id number] 11:54:00 Test Item Value Reference Range Interpretation Comments POC-GLUCOSE METER 117 mg/dL 70-110 H : TESTED A T [facility] (BEAKER) (test code [place] [facility], = 1538) [place] [address] 0: Churn Tender/Techni herson ID = [id number] for JOHN ERA, AVIVA POCT-GLUCOSE [id number] 06:35:00 Test Item Value Reference Range Interpretation Comments POC-GLUCOSE METER 90 mg/dL 70-110 : TESTED A T [facility] (BEAKER) (test code = [facility] [facility], 1538) [place] [address] 0: Churn Tender/Techni herson ID = [id number] for POLLO CABALLERO BASIC METABOLIC [id number] 05:02:00 Test Item Value Reference Range Interpretation [...] fL 9.0-12.3 (test code = 754) POCT-GLUCOSE [id number] 20:52:00 Test Item Value Reference Range Interpretation Comments POC-GLUCOSE METER 164 mg/dL 70-110 H : TESTED A T [facility] (BEAKER) (test code [place] [facility] A, = 1538) [place] [address] 0: Churn Tender/Techni herson ID = [id number] for NATHAN EDWINA, POLLO POCT-GLUCOSE [id number] 15:52:00 Test Item Value Reference Range Interpretation Comments POC-GLUCOSE METER 142 mg/dL 70-110 H : TESTED A T [facility]200 (BEAKER) (test code [place] [facility] A, = 1538) [place] [address] 0: Churn Tender/Techni herson ID = [id number] for OMIW SHANNAN, SYRIETA POCT-GLUCOSE [id number] 11:54:00 Test Item Value Reference Range Interpretation Comments POC-GLUCOSE METER 153 mg/dL 70-110 H : TESTED A T [facility] (BEAKER) (test code [place] [facility] A, = 1538) [place] [address] 0: Churn Tender/Techni herson ID = [id number] for OMIW SHANNAN, SYRIETA POCT-GLUCOSE [id number] 06:30:00 Test Item Value Reference Range Interpretation Comments POC-GLUCOSE METER 95 mg/dL 70-110 : TESTED A T [facility] (BEAKER) (test code = [facility], 1538) [place] [address] 0: Churn Tender/Techni herson ID = [id number] for NATHAN EDWINA, POLLO POCT-GLUCOSE [id number] 20:31:00 Test Item Value Reference Range Interpretation Comments POC-GLUCOSE METER 211 mg/dL 70-110 H : TESTED A T [facility] (BEAKER) (test code [place] E [facility] A, = 1538) [place] [address] 0: Churn Tender/Techni herson ID = [id number] for NATHAN EDWINA, POLLO POCT-GLUCOSE [id number] 16:40:00 Test Item Value Reference Range Interpretation Comments POC-GLUCOSE METER 184 mg/dL 70-110 H : TESTED A T [facility] (BEAKER) (test code [place] [facility] A, = 1538) [place] [address] 0: Churn Tender/Techni herson ID = [id number] for IJEOMA CACERES POCT-GLUCOSE [id number] 12:38:00 Test Item Value Reference Range Interpretation Comments POC-GLUCOSE METER 102 mg/dL 70-110 : TESTED A T [facility] (BEAKER) (test code CAMBR[place]G E BLDG A, = 1538) [place] [address] 0: Churn Tender/Techni herson ID = [id number] for RUSSELL CADENA POCT-GLUCOSE [id number] 06:36:00 Test Item Value Reference Range Interpretation Comments POC-GLUCOSE METER 107 mg/dL 70-110 : TESTED A T [facility] (BEAKER) (test code CAMBR[place]G E BLDG A, = 1538) [place] [address] 0: Churn Tender/Techni herson ID = [id number] for POLLO CABALLERO POCT-GLUCOSE [id number] 21:08:00 Test Item Value Reference Range Interpretation Comments POC-GLUCOSE METER 189 mg/dL 70-110 H : TESTED A T [facility] (BEAKER) (test code CAMBRIDG E BLDG A, = 1538) [place] [address] 0: Churn Tender/Techni herson ID = [id number] for ERNESTINA SFRANSISCOHETTA POCT-GLUCOSE [id number] 16:19:00 Test Item Value Reference Range Interpretation Comments POC-GLUCOSE METER 194 mg/dL 70-110 H : TESTED A T [facility] (BEAKER) (test code CAMBRIDG E BLDG A, = 1538) [place] [address] 0: Churn Tender/Techni herson ID = [id number] for SUSHANT MARTINEZA POCT-GLUCOSE [id number] 12:19:00 Test Item Value Reference Range Interpretation Comments POC-GLUCOSE METER 136 mg/dL 70-110 H : TESTED A T [facility] (BEAKER) (test code CAMBRIDG E BLDG A, = 1538) [place] [address] 0: Churn Tender/Techni herson ID = [id number] for KALYN MARTINEZ POCT-GLUCOSE [id number] 06:29:00 Test Item Value Reference Range Interpretation Comments POC-GLUCOSE METER 74 mg/dL 70-110 : TESTED A T [facility] (BEAKER) (test code = CAMBRI DGE BLDG A, 1538) [facility] 7703 0: Churn Tender/Techni herson ID = [id number] for BC EDOUARD COMPREHENSIVE METABOLIC [id number] 05:45:00 Test Item Value Reference Range Interpretation [...] S NOT APPLICABLE FOR DIALYSIS PATIEN TS. [id number] 05:45:00 Test Item Value Reference Range Interpretation Comments MAGNESIUM (BEAKER) (test code = 2.0 mg/dL 1.6-2.6 627) CBC W/PLT COUNT & AUTO [id number] 05:28:00 Test Item Value Reference Range Interpretation [...] PERCENT (BEAKER) (test code = 2801) POCT-GLUCOSE [id number] 21:03:00 Test Item Value Reference Range Interpretation Comments POC-GLUCOSE METER 188 mg/dL 70-110 H : TESTED A T [facility] (BEAKER) (test code CAMBRIDG E BLDG A, = 1538) [facility] 770 0: Churn Tender/Techni herson ID = [id number] for BC EDOUARD POCT-GLUCOSE [id number] 17:00:00 Test Item Value Reference Range Interpretation Comments POC-GLUCOSE METER 136 mg/dL 70-110 H : TESTED A T [facility] (BEAKER) (test code CAMBRIDG E BLDG A, = 1538) [facility] 770 0: [place] Tender/Techni herson ID = [id number] for IJEOMA CACERES POCT-GLUCOSE [id number] 12:08:00 Test Item Value Reference Range Interpretation Comments POC-GLUCOSE METER 115 mg/dL 70-110 H : TESTED A T [facility] 6720 (BEAKER) (test code = LOREE Ramsey [facility], 1538) 43933: Churn Tender/Techni herson ID = [id number] for MARIA C CHEW POCT-GLUCOSE [id number] 07:44:00 Test Item Value Reference Range Interpretation Comments POC-GLUCOSE METER 74 mg/dL 70-110 : TESTED A T [facility] 6720 (BEAKER) (test code = LOREE Ramsey [facility], 153) 59418: Churn Tender/Techni herson ID = [id number] for MARIA C LEWIS [id number] 07:37:00 Test Item Value Reference Range Interpretation Comments MAGNESIUM (BEAKER) (test code = 2.0 mg/dL 1.6-2.6 627) Churn Tender ID - EMERSONBASIC METABOLIC [id number] 07:37:00 Test Item Value Reference Range Interpretation [...] S NOT APPLICABLE FOR DIALYSIS PATIEN TS. Churn Tender ID - EMERSONCBC (HEMOGRAM ONLY)2019-12-18 07:02:00 Test [...] 0-0 (BEAKER) (test code = 413) POCT-GLUCOSE [id number] 21:19:00 Test Item Value Reference Range Interpretation Comments POC-GLUCOSE METER 190 mg/dL 70-110 H : TESTED A T [facility] 6720 (BEAKER) (test code = [facility], 1538) 12906: Churn Tender/Techni herson ID = [id number] for Barb Martins POCT-GLUCOSE [id number] 18:00:00 Test Item Value Reference Range Interpretation Comments POC-GLUCOSE METER 140 mg/dL 70-110 H : TESTED A T [facility] 6720 (BEAKER) (test code = [facility], 1538) 95436: Churn Tender/Techni herson ID = [id number] for WI LLIAMS, TYNEKA POCT-GLUCOSE [id number] 11:50:00 Test Item Value Reference Range Interpretation Comments POC-GLUCOSE METER 136 mg/dL 70-110 H : TESTED A T [facility] 6720 (BEAKER) (test code = [facility], 1538) 76679: Churn Tender/Techni herson ID = [id number] for WI LLIAMS, TYNEKA POCT-GLUCOSE [id number] 07:40:00 Test Item Value Reference Range Interpretation Comments POC-GLUCOSE METER 82 mg/dL 70-110 : TESTED A T [facility] 6720 (BEAKER) (test code = [facility], 1538) 21221: Churn Tender/Techni herson ID = [id number] for WILL IA, TYNEKA [id number] 06:10:00 Test Item Value Reference Range Interpretation Comments MAGNESIUM (BEAKER) (test code = 2.2 mg/dL 1.6-2.6 627) Churn Tender ID - BSBASIC METABOLIC [id number] 06:10:00 Test Item Value Reference Range Interpretation [...] S NOT APPLICABLE FOR DIALYSIS PATIEN TS. Churn Tender ID - BSCBC (HEMOGRAM ONLY)2019-12-17 05:34:00 Test [...] 0-0 (BEAKER) (test code = 413) POCT-GLUCOSE [id number] 21:02:00 Test Item Value Reference Range Interpretation Comments POC-GLUCOSE METER 153 mg/dL 70-110 H : TESTED Bo Arthur [facility] 6720 (BEAKER) (test code = [place], 1538) 17357: Churn Tender/Techni herson ID = [id number] for PREETI WYATT POCT-GLUCOSE [id number] 16:46:00 Test Item Value Reference Range Interpretation Comments POC-GLUCOSE METER 155 mg/dL 70-110 H : TESTED A T [facility] 6720 (BEAKER) (test code = LOREE Ramsey [facility], 1538) 79739: Churn Tender/Techni herson ID = [id number] for BERRY NTER, HIWITHA RAD, CHEST, 1 VIEW, NON [id number] 15:53:00Reason for exam:->RIGHT PICC LINE TIP VERIFICATIONShould [...] MDReport Verified Date/Time: 12/16/2019 15:53:59 Reading Location: [facility] Radiology Reading Room TISSUE [id number] 13:27:00Surgical Pathology Report Case: [id number] Authorizing Provider: Gabriel Stovall DPM Collected: 12/02/2019 08:41 AM Ordering Location: [facility] Received: 12/02/2019 09:24 AM SERVICES Pathologist: [...] GANGRENOUS CHANGES Signing Pathologist Direct Phone Line: [phone] signed by Cassia Xiao MD on 12/16/2019 at 1:27 PMSlides for microscopic examination are received on 12/08/2019.MO/[id number] [phone] X 2Gangrene [facility] right foot ([facility] [I96] [id number] 75611H. Toe, rightB. Foot, rightC. Foot, rightA. Received [...] affected bone is red-pink, trabeculated and firm. Clinical Team Lead sectionsare submitted as follows:Section codeA1-skin and soft [...] cut surface is shabazz-yellow, trabeculated and firm. Clinical Team Lead sections are submitted in C1-C2 following decalcification.SHARON Leon (ASCP)director human services-C. The samples show variable amounts of gangrenous necrosis. In the C-sample, in slide C-1, there is prominent associated acute osteomyelitis in the C-1 slide. Some articular cartilage does not show significant inflammation.POCT-GLUCOSE [id number] 12:00:00 Test Item Value Reference Range Interpretation Comments POC-GLUCOSE METER 122 mg/dL 70-110 H : TESTED A T [facility] 6720 ([facility]) (test code = [place], 1538) 08328: Churn Tender/Techni herson ID = [id number] for YADI KU [id number] 07:46:00 Test Item Value Reference Range Interpretation Comments MAGNESIUM (BEAKER) (test code = 2.2 mg/dL 1.6-2.6 627) Churn Tender ID - ANGELINA FBASIC METABOLIC [id number] 07:46:00 Test Item Value Reference Range Interpretation [...] S NOT APPLICABLE FOR DIALYSIS PATIEN TS. Churn Tender ID - ANGELINA FCBC (HEMOGRAM ONLY)2019-12-16 07:16:00 [...] 0-0 (BEAKER) (test code = 413) POCT-GLUCOSE [id number] 07:02:00 Test Item Value Reference Range Interpretation Comments POC-GLUCOSE METER 99 mg/dL 70-110 : TESTED A T [facility] 6720 (BEAKER) (test code = [facility], 1538) 17005: Churn Tender/Techni herson ID = [id number] for YADI SANDERSON POCT-GLUCOSE [id number] 21:27:00 Test Item Value Reference Range Interpretation Comments POC-GLUCOSE METER 287 mg/dL 70-110 H : TESTED A T [facility] 6720 (BEAKER) (test code = [facility] [employer] [facility], 1538) 36011: Churn Tender/Techni herson ID = [id number] for PREETI WYATT TISSUE [id number] 18:37:00Surgical Pathology Report Case: [id number] Authorizing Provider: Gabriel Stovall DPM Collected: 12/05/2019 01:01 PM Ordering Location: [facility] Received: 12/05/2019 01:40 PM SERVICES Pathologist: Naresh Tillman MD Specimen: Foot, Right, right foot amputation RIGHT FOOT, TRANSMETATARSAL AMPUTATION: - SKIN AND SOFT TISSUE WITH ACUTE INFLAMMATION AND ABSCESS FORMATION, AND NECROSIS - SKIN AND SOFT TISSUE RESECTION MARGIN, INVOLVED BY ABSCESS FORMATION - BONE RESECTION MARGIN WITH FEATURES OF ACUTE OSTEOMYELITIS Signing Pathologist Direct Phone Line: [phone]-fipblrd surgical wound, initial encounter [[id number]]98653, 56910, 36349, 60261Mtqm, rightReceived in formalin labeled with the patient's [...] affected bone is shabazz-yellow, trabeculated and firm. Clinical Team Lead sections are submitted as follows:Section codeA1-lesion and skin and soft tissue margin en cwawZ0-H8-fikh margin following decalcificationA4-skin lesionA5-skin lesion and underlying affected bone following decalcificationSHARON Leon ([facility])cmPerformed.POCT-GLUCOSE METER 2019-12-15 16:55:00 Test Item Value Reference Range Interpretation Comments POC-GLUCOSE METER 149 mg/dL 70-110 H : TESTED A T [facility] 6720 (BEAKER) (test code = [facility], 1538) 93366: Churn Tender/Techni herson ID = [id number] for PAVAN ZUÑIGA POCT-GLUCOSE [id number] 11:57:00 Test Item Value Reference Range Interpretation Comments POC-GLUCOSE METER 251 mg/dL 70-110 H : TESTED A T [facility] 6720 (BEAKER) (test code = [facility], 1538) 49909: Churn Tender/Techni herson ID = [id number] for HU NTER, HIWITHA SURGICALLY OBTAINED CULTURE + GRAM [id number] 10:43:00 Test Item Value Reference Range Interpretation Comments CULTURE (BEAKER) (test No growth code = 1095) GRAM STAIN RESULT <1+ White blood cells (BEAKER) (test code = seen 1123) GRAM STAIN RESULT No organisms seen (BEAKER) (test code = 91443) POCT-GLUCOSE [id number] 07:10:00 Test Item Value Reference Range Interpretation Comments POC-GLUCOSE METER 130 mg/dL 70-110 H : TESTED A T [facility] 6720 (BEAKER) (test code = [facility], 1538) 95263: Churn Tender/Techni herson ID = [id number] for HU NTER, HIWITHA [id number] 06:12:00 Test Item Value Reference Range Interpretation Comments MAGNESIUM (BEAKER) (test code = 2.3 mg/dL 1.6-2.6 627) Churn Tender ID - PIAYA LBASIC METABOLIC [id number] 06:12:00 Test Item Value Reference Range Interpretation [...] S NOT APPLICABLE FOR DIALYSIS PATIEN TS. Churn Tender ID - PIAYA LCBC (HEMOGRAM ONLY)2019-12-15 05:22:00 [...] 0-0 (BEAKER) (test code = 413) POCT-GLUCOSE [id number] 21:27:00 Test Item Value Reference Range Interpretation Comments POC-GLUCOSE METER 225 mg/dL 70-110 H : TESTED A T [facility] 6720 (BEAKER) (test code = [facility], 1538) 06443: Churn Tender/Techni herson ID = [id number] for ZOILA GAMEZ POCT-GLUCOSE [id number] 17:30:00 Test Item Value Reference Range Interpretation Comments POC-GLUCOSE METER 219 mg/dL 70-110 H : TESTED A T [facility] 6720 (BEAKER) (test code = [facility], 1538) 06772: Churn Tender/Techni herson ID = [id number] for SA NCHEZ, KARY POCT-GLUCOSE [id number] 12:19:00 Test Item Value Reference Range Interpretation Comments POC-GLUCOSE METER 184 mg/dL 70-110 H : TESTED A T [facility] 6720 (BEAKER) (test code = [facility], 1538) 52447: Churn Tender/Techni herson ID = [id number] for SA NCHEZ, KARY POCT-GLUCOSE [id number] 08:06:00 Test Item Value Reference Range Interpretation Comments POC-GLUCOSE METER 126 mg/dL 70-110 H : TESTED A T [facility] 6720 (BEAKER) (test code = [facility], 1538) 30158: Churn Tender/Techni herson ID = [id number] for SA NCHEZ, KARY [id number] 06:11:00 Test Item Value Reference Range Interpretation Comments MAGNESIUM (BEAKER) (test code = 2.3 mg/dL 1.6-2.6 627) Churn Tender ID - FARHAT LBASIC METABOLIC [id number] 06:11:00 Test Item Value Reference Range Interpretation [...] S NOT APPLICABLE FOR DIALYSIS PATIEN TS. Churn Tender ID - PIAYA LCBC (HEMOGRAM ONLY)2019-12-14 05:21:00 [...] 0-0 (BEAKER) (test code = 413) POCT-GLUCOSE [id number] 21:54:00 Test Item Value Reference Range Interpretation Comments POC-GLUCOSE METER 240 mg/dL 70-110 H : TESTED A T [facility] 6720 (BEAKER) (test code = [facility], 153) 70667: Churn Tender/Techni herson ID = [id number] for GREG BARBOSA POCT-GLUCOSE [id number] 17:05:00 Test Item Value Reference Range Interpretation Comments POC-GLUCOSE METER 145 mg/dL 70-110 H : TESTED A T [facility] 6720 (BEAKER) (test code = [facility], 153) 18319: Churn Tender/Techni herson ID = [id number] for Do david, Abner SPIN/CONCENTRATION [id number] 12:25:00 Test Item Value Reference Range Interpretation Comments CONCENTRATION CHARGED (BEAKER) (test Done code = 2657) POCT-GLUCOSE [id number] 11:27:00 Test Item Value Reference Range Interpretation Comments POC-GLUCOSE METER 294 mg/dL 70-110 H : TESTED A T [facility] 6720 (BEAKER) (test code = [facility], 153) 11726: Churn Tender/Techni herson ID = [id number] for Do olesyaguferny, Abner POCT-GLUCOSE [id number] 07:32:00 Test Item Value Reference Range Interpretation Comments POC-GLUCOSE METER 109 mg/dL 70-110 : TESTED A T [facility] 6720 (BEAKER) (test code = [facility], 153) 28925: Churn Tender/Techni herson ID = [id number] for Do minguez, Abner CBC (HEMOGRAM ONLY)2019-12-13 [...] WBC 0-0 (BEAKER) (test code = 413) [id number] 05:43:00 Test Item Value Reference Range Interpretation Comments MAGNESIUM (BEAKER) (test code = 2.3 mg/dL 1.6-2.6 627) Churn Tender ID - LINDSAY WBASIC METABOLIC [id number] 05:43:00 Test Item Value Reference Range Interpretation [...] S NOT APPLICABLE FOR DIALYSIS PATIEN TS. Churn Tender ID - LINDSAY WPOCT-GLUCOSE [id number] 21:23:00 Test Item Value Reference Range Interpretation Comments POC-GLUCOSE METER 225 mg/dL 70-110 H : TESTED A T [facility] 6720 (BEAKER) (test code = [facility], 1538) 69962: Churn Tender/Techni herson ID = [id number] for CRESENCIO BAH POCT-GLUCOSE [id number] 17:01:00 Test Item Value Reference Range Interpretation Comments POC-GLUCOSE METER 199 mg/dL 70-110 H : TESTED A T [facility] 6720 (BEAKER) (test code = [facility], 1538) 28001: Churn Tender/Techni herson ID = [id number] for PAVAN ZUÑIGA POCT-GLUCOSE [id number] 12:55:00 Test Item Value Reference Range Interpretation Comments POC-GLUCOSE METER 148 mg/dL 70-110 H : TESTED A T [facility] 6720 (BEAKER) (test code = [facility], 1538) 90654: Churn Tender/Techni herson ID = [id number] for KYLER MOHAMUD POCT-GLUCOSE [id number] 08:06:00 Test Item Value Reference Range Interpretation Comments POC-GLUCOSE METER 179 mg/dL 70-110 H : TESTED A T [facility] 6720 (BEAKER) (test code = [facility], 1538) 68365: Churn Tender/Techni herson ID = [id number] for PAVAN ZUÑIGA CBC (HEMOGRAM ONLY)2019-12-12 06:52:00 [...] WBC 0-0 (BEAKER) (test code = 413) [id number] 06:47:00 Test Item Value Reference Range Interpretation Comments MAGNESIUM (BEAKER) (test code = 2.3 mg/dL 1.6-2.6 627) Churn Tender ID - LABASIC METABOLIC [id number] 06:47:00 Test Item Value Reference Range Interpretation [...] S NOT APPLICABLE FOR DIALYSIS PATIEN TS. Churn Tender ID - LAPOCT-GLUCOSE [id number] 21:12:00 Test Item Value Reference Range Interpretation Comments POC-GLUCOSE METER 285 mg/dL 70-110 H : TESTED A T [facility] 6720 (BEAKER) (test code = [place], 1538) 14691: Churn Tender/Techni herson ID = [id number] for CRESENCIO BAH POCT-GLUCOSE [id number] 16:56:00 Test Item Value Reference Range Interpretation Comments POC-GLUCOSE METER 226 mg/dL 70-110 H : TESTED A T [facility] 6720 (BEAKER) (test code = [facility], 1538) 87245: Churn Tender/Techni herson ID = [id number] for WI LLIAMS, TYNEKA POCT-GLUCOSE [id number] 11:57:00 Test Item Value Reference Range Interpretation Comments POC-GLUCOSE METER 293 mg/dL 70-110 H : TESTED A T [facility] 6720 (BEAKER) (test code = [facility], 1538) 19356: Churn Tender/Techni herson ID = [id number] for WI LLIAMS, TYNEKA POCT-GLUCOSE [id number] 07:36:00 Test Item Value Reference Range Interpretation Comments POC-GLUCOSE METER 152 mg/dL 70-110 H : TESTED A T [facility] 6720 (BEAKER) (test code = [facility], 1538) 65643: Churn Tender/Techni herson ID = [id number] for WI LLIAMS, TYNEKA [id number] 06:31:00 Test Item Value Reference Range Interpretation Comments MAGNESIUM (BEAKER) 2.4 mg/dL 1.6-2.6 Specimen slightly (test code = 627) hemolyzed Churn Tender ID - PIAYA LBASIC METABOLIC [id number] 06:31:00 Test Item Value Reference Range Interpretation [...] S NOT APPLICABLE FOR DIALYSIS PATIEN TS. Churn Tender ID - PIAYA LCBC (HEMOGRAM ONLY)2019-12-11 05:58:00 [...] 0-0 (BEAKER) (test code = 413) POCT-GLUCOSE [id number] 21:34:00 Test Item Value Reference Range Interpretation Comments POC-GLUCOSE METER 290 mg/dL 70-110 H : [facility] (BEAKER) (test code = [place], 1538) 68976: Churn Tender/Techni herson ID = [id number] for ZOILA GAMEZ POCT-GLUCOSE [id number] 16:49:00 Test Item Value Reference Range Interpretation Comments POC-GLUCOSE METER 247 mg/dL 70-110 H : TESTED A T [facility] 6720 (BEAKER) (test code = [facility], 1538) 31294: Churn Tender/Techni herson ID = [id number] for CHANDAN PADRON POCT-GLUCOSE [id number] 11:15:00 Test Item Value Reference Range Interpretation Comments POC-GLUCOSE METER 244 mg/dL 70-110 H : TESTED A T [facility] 6720 (BEAKER) (test code = [facility], 1538) 69858: Churn Tender/Techni herson ID = [id number] for CHANDAN PADRON [id number] 08:20:00 Test Item Value Reference Range Interpretation Comments MAGNESIUM (BEAKER) (test code = 2.4 mg/dL 1.6-2.6 627) Churn Tender ID - MINERVA BBASIC METABOLIC [id number] 08:20:00 Test Item Value Reference Range Interpretation [...] S NOT APPLICABLE FOR DIALYSIS PATIEN TS. Churn Tender ID - MINERVA BPOCT-GLUCOSE [id number] 07:50:00 Test Item Value Reference Range Interpretation Comments POC-GLUCOSE METER 239 mg/dL 70-110 H : TESTED A T [facility] 6720 (BEAKER) (test code = [facility], 1538) 38732: Churn Tender/Techni herson ID = [id number] for CHANDAN PADRON CBC (HEMOGRAM ONLY)2019-12-10 07:07:00 [...] 0-0 (BEAKER) (test code = 413) POCT-GLUCOSE [id number] 21:25:00 Test Item Value Reference Range Interpretation Comments POC-GLUCOSE METER 248 mg/dL 70-110 H : TESTED A T [facility] 6720 (BEAKER) (test code = [facility], 153) 26667: Churn Tender/Techni herson ID = [id number] for Barb Martins POCT-GLUCOSE [id number] 17:15:00 Test Item Value Reference Range Interpretation Comments POC-GLUCOSE METER 221 mg/dL 70-110 H : TESTED A T [facility] 6720 (BEAKER) (test code = [facility], 153) 95499: Churn Tender/Techni herson ID = [id number] for HU NTER, HIWITHA POCT-GLUCOSE [id number] 12:00:00 Test Item Value Reference Range Interpretation Comments POC-GLUCOSE METER 220 mg/dL 70-110 H : TESTED A T [facility] 6720 (BEAKER) (test code = LOREE Ramsey [facility], 1538) 41220: Churn Tender/Techni herson ID = [id number] for BERRY GONZALEZER, HIWITHA [id number] 07:12:00 Test Item Value Reference Range Interpretation Comments MAGNESIUM (BEAKER) (test code = 2.4 mg/dL 1.6-2.6 627) Churn Tender ID - ANGELINA FBASIC METABOLIC [id number] 07:12:00 Test Item Value Reference Range Interpretation [...] S NOT APPLICABLE FOR DIALYSIS PATIEN TS. Churn Tender ID - ANGELINA FPOCT-GLUCOSE [id number] 07:04:00 Test Item Value Reference Range Interpretation Comments POC-GLUCOSE METER 176 mg/dL 70-110 H : TESTED A T [facility] 6720 (BEAKER) (test code = LOREE Ramsey [facility], 1538) 69037: Churn Tender/Techni herson ID = [id number] for BERRY NTER, HIWITHA CBC (HEMOGRAM ONLY)2019-12-09 06:51:00 Test [...] 0-0 (BEAKER) (test code = 413) POCT-GLUCOSE [id number] 22:22:00 Test Item Value Reference Range Interpretation Comments POC-GLUCOSE METER 248 mg/dL 70-110 H : TESTED Bo T [facility] 6720 (BEAKER) (test code = [place] Braulio [place], 1538) 28647: Churn Tender/Techni herson ID = [id number] for ZOILA GAMEZ BLOOD [id number] 21:00:00 Test Item Value Reference Range Interpretation Comments CULTURE (BEAKER) (test No growth in 5 days code = 1095) BLOOD [id number] 21:00:00 Test Item Value Reference Range Interpretation Comments CULTURE (BEAKER) (test No growth in 5 days code = 1095) ANAEROBIC [id number] 17:38:00 Test Item Value Reference Range Interpretation Comments CULTURE (BEAKER) (test No anaerobes isolated code = 1095) POCT-GLUCOSE [id number] 16:42:00 Test Item Value Reference Range Interpretation Comments POC-GLUCOSE METER 193 mg/dL 70-110 H : TESTED A T [facility] 6720 (BEAKER) (test code = [facility], 1538) 72568: Churn Tender/Techni herson ID = [id number] for TERELL GREEN[place]OD POCT-GLUCOSE [id number] 12:04:00 Test Item Value Reference Range Interpretation Comments POC-GLUCOSE METER 199 mg/dL 70-110 H : TESTED A T [facility] 6720 (BEAKER) (test code = [facility], 1538) 51715: Churn Tender/Techni herson ID = [id number] for DANA GREENWOODY POCT-GLUCOSE [id number] 08:08:00 Test Item Value Reference Range Interpretation Comments POC-GLUCOSE METER 168 mg/dL 70-110 H : TESTED A T [facility] 6720 (BEAKER) (test code = [facility], 1538) 01315: Churn Tender/Techni herson ID = [id number] for TERELL GREENWOOD [id number] 07:27:00 Test Item Value Reference Range Interpretation Comments MAGNESIUM (BEAKER) (test code = 2.1 mg/dL 1.6-2.6 627) Churn Tender ID - JORGE ALBERTO CBASIC METABOLIC [id number] 07:27:00 Test Item Value Reference Range Interpretation [...] S NOT APPLICABLE FOR DIALYSIS PATIEN TS. Churn Tender ID - JORGE ALBERTO CCBC (HEMOGRAM ONLY)2019-12-08 [...] 0-0 (BEAKER) (test code = 413) POCT-GLUCOSE [id number] 21:57:00 Test Item Value Reference Range Interpretation Comments POC-GLUCOSE METER 215 mg/dL 70-110 H : TESTED A T [facility] 6720 (BEAKER) (test code = [facility], 1538) 93032: Churn Tender/Techni herson ID = [id number] for BART LESLIE POCT-GLUCOSE [id number] 17:22:00 Test Item Value Reference Range Interpretation Comments POC-GLUCOSE METER 151 mg/dL 70-110 H : TESTED A T [facility] 6720 (BEAKER) (test code = [facility], 1538) 15813: Churn Tender/Techni herson ID = [id number] for PAVAN ZUÑIGA OBTAINED CULTURE + GRAM [id number] 13:45:00 Test Item Value Reference Range Interpretation [...] No organisms seen (BEAKER) (test code = 370297) [id number] 06:32:00 Test Item Value Reference Range Interpretation Comments MAGNESIUM (BEAKER) 2.2 mg/dL 1.6-2.6 Specimen slightly (test code = 627) hemolyzed Churn Tender ID - PIAYA LBASIC METABOLIC [id number] 06:32:00 Test Item Value Reference Range Interpretation [...] S NOT APPLICABLE FOR DIALYSIS PATIEN TS. Churn Tender ID - PIAYA LCBC (HEMOGRAM ONLY)2019-12-07 05:39:00 [...] 0-0 (BEAKER) (test code = 413) POCT-GLUCOSE [id number] 21:14:00 Test Item Value Reference Range Interpretation Comments POC-GLUCOSE METER 165 mg/dL 70-110 H : TESTED A T [facility] 6720 (BEAKER) (test code = [place], 1538) 16681: Churn Tender/Techni herson ID = [id number] for [facility] IIILEILANI SPIN/CONCENTRATION [id number] 18:12:00 Test Item Value Reference Range Interpretation Comments CONCENTRATION CHARGED (BEAKER) (test Done code = 2657) POCT-GLUCOSE [id number] 16:48:00 Test Item Value Reference Range Interpretation Comments POC-GLUCOSE METER 155 mg/dL 70-110 H : TESTED A T [facility] 6720 (BEAKER) (test code = [facility], 1538) 08173: Churn Tender/Techni herson ID = [id number] for HU NTER, HIWITHA POCT-GLUCOSE [id number] 12:18:00 Test Item Value Reference Range Interpretation Comments POC-GLUCOSE METER 163 mg/dL 70-110 H : TESTED A T [facility] 6720 (BEAKER) (test code = [facility], 1538) 39412: Churn Tender/Techni herson ID = [id number] for MAXWELL RRIS, FINESSE POCT-GLUCOSE [id number] 07:11:00 Test Item Value Reference Range Interpretation Comments POC-GLUCOSE METER 106 mg/dL 70-110 : TESTED A T [facility] 6720 (BEAKER) (test code = [facility], 1538) [id number]: Churn Tender/Techni herson ID = [id number] for HU NTER, HIWITHA BLOOD [id number] 06:00:00 Test Item Value Reference Range Interpretation Comments CULTURE (BEAKER) (test No growth in 5 days code = 1095) BLOOD [id number] 06:00:00 Test Item Value Reference Range Interpretation Comments CULTURE (BEAKER) (test No growth in 5 days code = 1095) [id number] 05:55:00 Test Item Value Reference Range Interpretation Comments MAGNESIUM (BEAKER) (test code = 1.8 mg/dL 1.6-2.6 627) Churn Tender ID - PALOMA MBASIC METABOLIC [id number] 05:55:00 Test Item Value Reference Range Interpretation [...] S NOT APPLICABLE FOR DIALYSIS PATIEN TS. Churn Tender ID - PAL[facility] (HEMOGRAM ONLY)2019-12-06 05:21:00 Test Item Value Reference [...] 0-0 (BEAKER) (test code = 413) POCT-GLUCOSE [id number] 21:16:00 Test Item Value Reference Range Interpretation Comments POC-GLUCOSE METER 158 mg/dL 70-110 H : TESTED Bo T [facility] 6720 (BEAKER) (test code = [facility] [place], 1538) [id number]: Churn Tender/Techni herson ID = [id number] for GO NZALES III, LEILANI ANAEROBIC [id number] 17:15:00 Test Item Value Reference Range Interpretation Comments CULTURE (BEAKER) (test No anaerobes isolated code = 1095) POCT-GLUCOSE [id number] 16:48:00 Test Item Value Reference Range Interpretation Comments POC-GLUCOSE METER 127 mg/dL 70-110 H : TESTED A T [facility] 6720 (BEAKER) (test code = [facility], 1538) [id number]: Churn Tender/Techni herson ID = [id number] for TERELL GREENWOOD, FOOT, MIN 3 VIEWS, [id number] 16:43:00Reason for exam:->s/p debridementFINAL REPORT TECHNIQUE: Frontal, [...] [place] Verified Date/Time: 12/05/2019 16:43:31 Reading Location: [address] Radiology Reading Room SURGICALLY OBTAINED CULTURE + GRAM [id number] 13:21:00 Test Item Value Reference Interpretation Comments [...] 1123) GRAM STAIN RESULT No organisms seen (AKER) (test code = 408252) POCT-GLUCOSE [id number] 13:08:00 Test Item Value Reference Range Interpretation Comments POC-GLUCOSE METER 127 mg/dL 70-110 H : TESTED A T [facility] 6720 (BEAKER) (test code = [facility], 153) 40890: Churn Tender/Techni herson ID = [id number] for RENEE ROGEL POCT-GLUCOSE [id number] 08:14:00 Test Item Value Reference Range Interpretation Comments POC-GLUCOSE METER 163 mg/dL 70-110 H : TESTED A T [facility] 6720 (BEAKER) (test code = [facility], 153) 34709: Churn Tender/Techni herson ID = [id number] for TERELL GREENWOOD [id number] 07:20:00 Test Item Value Reference Range Interpretation Comments MAGNESIUM (BEAKER) (test code = 1.8 mg/dL 1.6-2.6 627) Churn Tender ID - PALOMA MBASIC METABOLIC [id number] 07:20:00 Test Item Value Reference Range Interpretation [...] S NOT APPLICABLE FOR DIALYSIS PATIEN TS. Churn Tender ID - PALOMA MC (HEMOGRAM ONLY)2019-12-05 06:44:00 Test Item Value Reference [...] 0-0 (BEAKER) (test code = 413) POCT-GLUCOSE [id number] 21:18:00 Test Item Value Reference Range Interpretation Comments POC-GLUCOSE METER 146 mg/dL 70-110 H : TESTED A T [facility] 6720 (BEAKER) (test code = [facility], 153) 66902: Churn Tender/Techni herson ID = [id number] for Barb Martins PLATELET AGGREGATION: DRUG [id number] 17:58:00 Test Item Value Reference Range Interpretation Comments ARACHADONIC ACID 75 % 63-89 RESULT(BEAKER) (test code = 2138) PLATELET AGG DRUG Normal arachidonic INTERPRETATION (BEAKER) acid and ADP results. (test code = 2408) No [id number] or aspirin-like drug effect. [id number] Arnav Rouse M.D. ([facility]) (test code = (electonic signature) 0550) PLATELET COUNT AGG 349 K/CU MM 150-450 (BEAKER) (test code = 2656) ADP (BEAKER) (test code 74 % 62-100 = 4654) PLATELET RICH 290 k/cu mm 200-300 PLASMA(BEAKER) (test code = 2134) Platelet function studies by aggregation methodology on samples with platelet count <75,000/CU MMare unreliable; platelet function assessment should not be based on a single test.Churn Tender ID - [id number]-GLUCOSE [id number] 16:20:00 Test Item Value Reference Range Interpretation Comments POC-GLUCOSE METER 141 mg/dL 70-110 H : TESTED A T [facility] 6720 (BEAKER) (test code = [facility], 153) 77458: Churn Tender/Techni herson ID = [id number] for CHANDAN PADRON POCT-GLUCOSE [id number] 11:53:00 Test Item Value Reference Range Interpretation Comments POC-GLUCOSE METER 138 mg/dL 70-110 H : TESTED A T [facility] 6720 (BEAKER) (test code = [facility], 153) 50787: Churn Tender/Techni herson ID = [id number] for CHANDAN PADRON POCT-GLUCOSE [id number] 08:18:00 Test Item Value Reference Range Interpretation Comments POC-GLUCOSE METER 93 mg/dL 70-110 : TESTED A T [facility] 6720 (BEAKER) (test code = [place], 1538) 32251: Churn Tender/Techni herson ID = [id number] for BARB QUEZADA [id number] 07:55:00 Test Item Value Reference Range Interpretation Comments MAGNESIUM (BEAKER) (test code = 1.8 mg/dL 1.6-2.6 627) Churn Tender ID - JUN CBASI METABOLIC [id number] 07:55:00 Test Item Value Reference Range Interpretation [...] S NOT APPLICABLE FOR DIALYSIS PATIEN TS. Churn Tender ID - JUN [id number] 07:33:00 Test Item Value Reference Range Interpretation [...] 0-0 (BEAKER) (test code = 413) POCT-GLUCOSE [id number] 21:23:00 Test Item Value Reference Range Interpretation Comments POC-GLUCOSE METER 143 mg/dL 70-110 H : [facility] T [facility] 67[facility] (test code = [facility], 153) 74220: Churn Tender/Techni herson ID = [id number] for DA VIS, ZOILA POCT-GLUCOSE [id number] 17:01:00 Test Item Value Reference Range Interpretation Comments POC-GLUCOSE METER 143 mg/dL 70-110 H : TESTED A T [facility] 6720 ([facility]) (test code = [facility], 153) 00171: Churn Tender/Techni herson ID = [id number] for ASHUTOSH SANTANA, DAMARISNDY [id number] 14:53:00 Test Item Value Reference Range Interpretation Comments ACTIVATED CLOTTING TIME 257 sec : 74 -137 seconds, (BEAKER) (test code = Baseli ne: TESTED AT 441) [facility] [address] [facility], [facility] 30: Churn Tender/Techni herson ID = [id number] for CHONG IBARRA [id number] 14:12:00 Test Item Value Reference Range Interpretation Comments ACTIVATED CLOTTING TIME 235 sec : 74 -137 seconds, (BEAKER) (test code = Baseli ne: TESTED AT 441) [facility] 67[address] [place], 770 30: Churn Tender/Techni herson ID = [id number] for CHONG IBARRA POCT-GLUCOSE [id number] 11:20:00 Test Item Value Reference Range Interpretation Comments POC-GLUCOSE METER 170 mg/dL 70-110 H : TESTED A T [facility] 6720 (BEAKER) (test code = [facility], 1538) 61635: Churn Tender/Techni herson ID = [id number] for TERELL GREENWOOD POCT-GLUCOSE [id number] 08:25:00 Test Item Value Reference Range Interpretation Comments POC-GLUCOSE METER 161 mg/dL 70-110 H : TESTED A T [facility] 6720 (BEAKER) (test code = [facility], 1538) 20638: Churn Tender/Techni herson ID = [id number] for TERELL GREENWOOD [id number] 07:44:00 Test Item Value Reference Range Interpretation Comments MAGNESIUM (BEAKER) (test code = 1.8 mg/dL 1.6-2.6 627) Churn Tender ID - JORGE ALBERTO CBASIC METABOLIC [id number] 07:44:00 Test Item Value Reference Range Interpretation [...] S NOT APPLICABLE FOR DIALYSIS PATIEN TS. Churn Tender ID - JORGE ALBERTO [id number] 06:52:00 Test Item Value Reference Range Interpretation [...] WBC 0-0 (BEAKER) (test code = 413) [id number] 00:10:00 Test Item Value Reference Range Interpretation Comments PARTIAL THROMBOPLASTIN TIME 95.1 seconds 22.5-36.0 H (BEAKER) (test code = 760) POCT-GLUCOSE [id number] 21:24:00 Test Item Value Reference Range Interpretation Comments POC-GLUCOSE METER 223 mg/dL 70-110 H : TESTED A T [facility] 6720 (BEAKER) (test code = [place] [place], 1538) 50735: Churn Tender/Techni herson ID = [id number] for PE RALES, CRESENCIO VANCOMYCIN LEVEL, [id number] 19:47:00 Test Item Value Reference Range Interpretation Comments VANCOMYCIN TROUGH (BEAKER) (test 13.8 ug/mL 10.0-20.0 code = 522) Churn Tender ID - [id number] 17:17:00 Test Item Value Reference Range Interpretation Comments PARTIAL THROMBOPLASTIN TIME 37.4 seconds 22.5-36.0 H (BEAKER) (test code = 760) POCT-GLUCOSE [id number] 16:57:00 Test Item Value Reference Range Interpretation Comments POC-GLUCOSE METER 193 mg/dL 70-110 H : TESTED A T [facility] 6720 ([employer]) (test code = [facility], 153) 65741: Churn Tender/Techni herson ID = [id number] for CHANDAN PADRON RAD, FOOT, MIN 3 VIEWS, [id number] 13:05:00Reason for exam:->s/p debridementFINAL REPORT CLINICAL HISTORY: s/p debridement TECHNIQUE: 3 views of the right foot COMPARISON: 12/01/2019 IMPRESSION: 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 There is gauze packing the soft tissue defect. The remaining bones appear intac t. Signed: Pollo Cortez [place] Verified Date/Time: 12/02/2019 13:05:47 Reading Location: [facility] Radiology Reading Room POCT-GLUCOSE METER 2019-12-02 12:35:00 Test Item Value Reference Range Interpretation Comments POC-GLUCOSE METER 216 mg/dL 70-110 H : TESTED A T [facility] 6720 ([employer]) (test code = [facility], 153) 19889: Churn Tender/Techni herson ID = [id number] for MAXWELL RRIS, FINESSE POCT-GLUCOSE [id number] 09:24:00 Test Item Value Reference Range Interpretation Comments POC-GLUCOSE METER 232 mg/dL 70-110 H : TESTED A T [facility] 6720 ([employer]) (test code = [facility], 153) 73832: Churn Tender/Techni herson ID = [id number] for LINK, CAN DACE HEMOGLOBIN [id number] 08:08:00 Test Item Value Reference Range Interpretation Comments HEMOGLOBIN A1C (RICK) (test code = 10.0 % 4.3-6.1 H 368) POCT-GLUCOSE [id number] 05:46:00 Test Item Value Reference Range Interpretation Comments POC-GLUCOSE METER 239 mg/dL 70-110 H : TESTED A T [facility] 6720 (BEAKER) (test code = [place], 1538) 87211: Churn Tender/Techni herson ID = [id number] for PE CRESENCIO TRINIDAD [id number] 01:51:00 Test Item Value Reference Range Interpretation Comments MAGNESIUM (BEAKER) (test code = 1.8 mg/dL 1.6-2.6 627) Churn Tender ID - LINDSAY WBASIC METABOLIC [id number] 01:51:00 Test Item Value Reference Range Interpretation [...] S NOT APPLICABLE FOR DIALYSIS PATIEN TS. Churn Tender ID - LINDSAY [id number] 01:42:00 Test Item Value Reference Range Interpretation [...] 0-0 (BEAKER) (test code = 413) POCT-GLUCOSE [id number] 21:29:00 Test Item Value Reference Range Interpretation Comments POC-GLUCOSE METER 222 mg/dL 70-110 H : TESTED A T [facility] 6720 ([employer]) (test code = [facility], 153) 21980: Churn Tender/Techni herson ID = [id number] for CRESENCIO BAH [id number] 19:59:00 Test Item Value Reference Range Interpretation Comments PARTIAL THROMBOPLASTIN TIME 76.3 seconds 22.5-36.0 H (AKER) (test code = 760) POCT-GLUCOSE [id number] 17:25:00 Test Item Value Reference Range Interpretation Comments POC-GLUCOSE METER 259 mg/dL 70-110 H : TESTED A T [facility] 6720 ([employer]) (test code = [facility], 153) 43745: Churn Tender/Techni herson ID = [id number] for TH MAGO, HOMERO RAD, FOOT, MIN 3 VIEWS, [id number] 15:46:00Reason for exam:->gangrene FINAL REPORT CLINICAL HISTORY: [...] Cortez MDR[place] Verified Date/Time: 12/01/2019 15:46:27Reading Location: [facility] Radiology Reading Room SARS-COV2/RT-PCR ([facility])2019-12-01 14:10:00 Test Item Value Reference Range Interpretation Comments SARS-COV2/RT-PCR (test Not Detected Not Detected, Negative code = 6286471) SARS-COV-2 PERFORMING LAB [facility] (test code = 5064325) Negative results do not preclude SARS-CoV-2 infection [...] of the Act.Fact Sheet for Healthcare Pro viders:https://www.[employer]/Documents/Xpert%20Xpress%20SARS%20CoV-2/Fact%20Sh eets/302-1927%66TSQY-HFQ-9%20HEALTHCARE%20PROVIDERS%20FACT%20SHEET.pdfFact Sheet for Healthcare Patients:https://www.myaNUMBER.com/Documents/Xpert%20Xpress%20SARS%20CoV-2/Fact%20Sheets/3023801%20SARS-COV -2%20PATIENT%20FACT%20SHEET.pdfPerforming Laboratory:[facility], [place] [id number] 12:34:00 Test Item Value Reference Range Interpretation Comments PARTIAL THROMBOPLASTIN TIME 47.2 seconds 22.5-36.0 H (BEAKER) (test code = 760) POCT-GLUCOSE [id number] 12:24:00 Test Item Value Reference Range Interpretation Comments POC-GLUCOSE METER 185 mg/dL 70-110 H : Notified RN/MD: (CHRISTAD) (test code = TESTED AT [facility] 6720 1538) [facility], [address]: Churn Tender/Techni herson ID = [id number] for HOMERO VALERIO COMPREHENSIVE METABOLIC [id number] 06:04:00 Test Item Value Reference Range Interpretation [...] S NOT APPLICABLE FOR DIALYSIS PATIEN TS. Churn Tender ID - FARHAT LC-REACTIVE [id number] 06:04:00 Test Item Value Reference Range Interpretation Comments C-REACTIVE PROTEIN (BEAKER) (test 13.79 mg/dL 0.00-0.50 H code = 676) Churn Tender ID - FARHAT [id number] 05:28:00 Test Item Value Reference Range Interpretation Comments PARTIAL THROMBOPLASTIN TIME 35.0 seconds 22.5-36.0 (BEAKER) (test code = 760) 6 hours after starting heparin infusion and as indicated per sliding scaleAPTT 2019-12-01 05:27:00 Test Item Value Reference Range Interpretation Comments PARTIAL THROMBOPLASTIN TIME 33.8 seconds 22.5-36.0 (BEAKER) (test code = 760) Prior to initiating heparinPROTHROMBIN TIME/[id number] 05:26:00 Test Item Value Reference Range Interpretation [...] to initiating heparinCBC W/PLT COUNT & AUTO [id number] 05:12:00 Test Item Value Reference Range Interpretation [...] % 0-1 PERCENT (BEAKER) (test code = 4831)
[2021-08-06] MEDS ORDERED: ONDANSETRON 4 MG/2 ML VIAL ONE (12:21)
[2021-08-06] MEDS ORDERED: MORPHINE 4 MG/ML SYR ONE (12:21)
[2021-08-06 12:23] LABS: Absolute Lymphocytes (CBC) 1.4 K/uL (0.7-4.9); Lymphocytes % 11.3 % (15.3-44.8); MPV 8.2 fL (7.6-11.3); RBC Red Blood Cell Count 3.93 M/uL (3.86-4.86)
[2021-08-06 12:35] LABS: Potassium 3.7 mmol/L (3.5-5.1)
[2021-08-06] MEDS ORDERED: VANCOMYCIN 1 GM/VIAL ONE (12:41)
[2021-08-06] MEDS ORDERED: PIPERACIL/TAZO 3.375 GM VIAL IV ONE (12:41)
[2021-08-06] MEDS ORDERED: NA CHLORIDE 0.9% 200 ML IV ONE (12:42)
--- NOTE | 2021-08-06 13:18 | RAD REPORT ---
EXAM DESCRIPTION: CT - Foot Right W Con - 08/06/2021 1:10 pm CLINICAL HISTORY: discolored toe COMPARISON: No comparisons TECHNIQUE: Axial 2 millimeter thick images of the foot and ankle obtained following dynamic enhance in using nonionic IV contrast. Sagittal and coronal reconstruction images were generated and reviewed . All CT scans are performed using dose optimization technique as appropriate and may include automate d exposure control or mA/KV adjustment according to patient size. FINDINGS: Patient is status post amputation of the phalanges and the distal aspect of each metatarsa l. Moderately large plantar spur is present. Midfoot degenerative changes are present along the artic ular margins. No fracture is present. There are no pathologic or destructive bone changes. No CT imag ing for osteomyelitis. In the superficial soft tissues anterior to the second and third metatarsal stumps there is an amorph ous 2.5 centimeter fluid or low-density collection. This tracks approximately 3 cm along the plantar surface of the second and third metatarsals. This has the appearance of a soft tissue abscess. Soft tissues surrounding the foot are edematous. No air seen in the soft tissues. There is no foreign body. No other site of possible abscess or drainable fluid collections seen. IMPRESSION: Approximately 2.5 centimeter suspected abscess in the soft tissues anterior to the secon d and third metatarsal stumps. The fluid collection tracks for approximately 3 cm along the plantar s urface of the second and third metatarsal shafts. Edematous soft tissues throughout the right foot. No other area of abscess formation seen. No air in the soft tissues. No CT evidence for bone destructive osteomyelitis.
--- NOTE | 2021-08-06 13:30 | EDPHYS ---
Physician Documentation [facility] Name: Maria Isabel Stacy Age: 75 yrs Sex: Female : 1945 Arrival Date: 08/06/2021 Time: 10:57 Bed 7 Private MD: ED Physician Haim Fox HPI: 08/06 12:52 This 75 yrs old Female presents to ER via Ambulatory with complaints of Foot rn Pain - discolored toe. 12:52 This 75 yrs old Female presents to ER via Ambulatory with complaints of Foot rn Pain - drainage. 12:52 The patient presents with an abscess, moderate-sized, pain. The complaints affect the rn right foot. Onset: The symptoms/episode began/occurred this morning. Modifying factors: The symptoms are alleviated by nothing, the symptoms are aggravated by weight bearing. Associated signs and symptoms: Pertinent positives: swelling, Pertinent negatives: fever. Severity of symptoms: At their worst the symptoms were moderate, in the emergency department the symptoms are unchanged. The patient has not experienced similar symptoms in the past. The patient has been recently seen by a physician:. Pt seen here recently, transferred to [facility] for posterior tibial artery occlusion, which seemed chronic as present in old imaging here but transferred and accepted due to uncontrolled pain in right foot. Just discharged yesterday, occlusion deemed chronic by vascular and told to take aspirin, no intervention done or recommended. Returns today because now noticed blister to end of amputated foot that wasn't there yesterday, increased pain, and drainage. Denies trauma. . Historical: - Allergies: 11:14 No Known Allergies; ab2 - PMHx: 11:14 Diabetes - IDDM; Hypertensive disorder; neuropathy; ab2 - PSHx: 11:14 R foot all toes amputated; ab2 - Immunization history:: Adult Immunizations up to date, Client reports receiving the 2nd dose of the Covid vaccine. - Social history:: Smoking status: Patient denies any tobacco usage or history of. - Family history:: not pertinent. - Hospitalizations: : Patient was recently seen at [facility]. ROS: 12:52 Constitutional: Negative for fever, chills, and weight loss, Eyes: Negative for injury, rn pain, redness, and discharge, Cardiovascular: Negative for chest pain, palpitations, and edema, Respiratory: Negative for shortness of breath, cough, wheezing, and pleuritic chest pain, Abdomen/GI: Negative for abdominal pain, nausea, vomiting, diarrhea, and constipation, Back: Negative for injury and pain, MS/Extremity: + pain and swelling right foot Skin: + swelling and abscess to right foot Neuro: Negative for headache, weakness, numbness, tingling, and seizure. Exam: 12:52 Constitutional: This is a well developed, well nourished patient who is awake, alert, rn and in no acute distress. Head/Face: Normocephalic, atraumatic. ENT: MMM Cardiovascular: Regular rate and rhythm. No pulse deficits. Respiratory: No increased work of breathing, no retractions or nasal flaring. Abdomen/GI: Soft, non-tender Skin: Warm, dry MS/ Extremity: No cyanosis. + right distal forefoot with 2 cm area of fluctuance and tenderness, had some purulent drainage with opening on plantar side of swelling, purulence easily expressed, approx 10 cc of pus with depression of skin into forefoot. top steep tender after drainage. Neuro: Awake and alert Vital Signs: 11:10 BP 126 / 80; Pulse 83; Resp 18; Temp 98.6(TE); Pulse Ox 99% on R/A; Weight 63.5 kg; ab2 Height 5 ft. 4 in. (162.56 cm); Pain 10/10; 11:45 BP 112 / 35; Pulse 71; Resp 17 S; Pulse Ox 95% on R/A; jg9 12:30 BP 110 / 45; Pulse 67; Resp 18 S; Pulse Ox 98% on R/A; jg9 13:30 BP 118 / 67; Pulse 58; Resp 16 S; Pulse Ox 98% ; jg9 14:00 BP 111 / 64; Pulse 65; Resp 17 S; Pulse Ox 100% on R/A; jg9 15:00 BP 92 / 43; Pulse 61; Resp 16 S; Pulse Ox 99% on R/A; jg9 16:30 BP 94 / 36; Pulse 60; Resp 16 S; Pulse Ox 100% on R/A; jg9 11:10 Body Mass Index 24.03 (63.50 kg, 162.56 cm) ab2 MDM: 11:50 Patient medically screened. rn 13:28 Differential diagnosis: cellulitis, foot abscess. Data reviewed: vital signs, nurses rn notes, lab test result(s), radiologic studies, CT scan, and as a result, I will admit patient. Counseling: I had a detailed discussion with the patient and/or guardian regarding: the historical points, exam findings, and any diagnostic results supporting the discharge/admit diagnosis, lab results, radiology results, the need for further work-up and treatment in the hospital. Admission orders: after a detailed discussion of the patient's condition and case, the admit orders are written by me. 08/06 11:58 Order name: CBC with Diff rn 08/06 11:58 Order name: Basic Metabolic Panel rn 08/06 11:58 Order name: Procalcitonin; Complete Time: 13:27 08/06 11:58 Order name: Blood Culture Adult (2) rn 08/06 11:59 Order name: CBC with Automated Diff; Complete Time: 12:30 EDSD 08/06 11:59 Order name: Basic Metabolic Panel; Complete Time: 13:27 EDSD 08/06 11:58 Order name: XRAY Foot RIGHT 2 View; Complete Time: 16:05 rn 08/06 11:59 Order name: Wound Culture rn 08/06 12:21 Order name: Glucose, Ancillary Testing; Complete Time: 12:30 EDSD 08/06 12:31 Order name: SARS-COV-2 RT PCR (Document "Date of Onset" if Symptomatic); Complete Time: rn 13:56 08/06 12:40 Order name: Foot Right W Con; Complete Time: 13:27 EDSD 08/06 13:37 Order name: Urine Dipstick-Ancillary; Complete Time: 13:56 EDSD 08/06 11:58 Order name: IV Start; Complete Time: 12:13 rn 08/06 11:58 Order name: Glucose Level; Complete Time: 12:24 rn 08/06 14:05 Order name: CONS Physician Consult EDSD Administered Medications: 12:23 Drug: morphine 4 mg Route: IVP; Site: right antecubital; jd3 13:35 Follow up: Response: No adverse reaction; Marked relief of symptoms; Pain is decreased; jg9 RASS: Alert and Calm (0) 12:24 Drug: Zofran (Ondansetron) 4 mg Route: IVP; Site: right antecubital; jd3 13:36 Follow up: Response: No adverse reaction jg9 13:10 Drug: Zosyn (piperacillin-tazobactam) 3.375 grams Route: IVPB; Infused Over: 60 mins; jg9 Site: right antecubital; 14:30 Follow up: IV Status: Completed infusion; IV Intake: 100ml jg9 13:20 Drug: vancoMYCIN 1 grams Route: IVPB; Infused Over: 2 hrs; Site: right wrist; jg9 Disposition Summary: 08/06/21 13:30 Hospitalization Ordered Hospitalization Status: Inpatient Admission rn Provider: Abe Fox rn Location: Telemetry/MedSurg (Inpatient) rn Condition: Stable rn Problem: new rn Symptoms: have improved rn Bed/Room Type: Standard rn Room Assignment: 205(08/06/21 14:23) eb Diagnosis - Cutaneous abscess of right foot - Deep abscess rn - 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 EDSD EDMS 14:23 13:30 rn eb
--- NOTE | 2021-08-06 13:30 | ER ---
Nurse's Notes [facility] Name: Maria Isabel Stacy Age: 75 yrs Sex: Female : 1945 Arrival Date: 08/06/2021 Time: 10:57 Bed 7 Private MD: Diagnosis: Cutaneous abscess of right foot-Deep abscess;Atherosclerosis of [place] arteries of extremities with rest pain, right leg;Diabetes mellitus due to underlying condition with foot ulcer Presentation: 08/06 11:10 Chief complaint: Patient's son or daughter states: "She was discharged from [place] [address] yesterday and she now has a blister on her amputated foot on the right. She hasn't slept because of the pain". Coronavirus screen: Vaccine status: Patient reports receiving the 2nd dose of the covid vaccine. Client denies travel out of the [place] in the last 14 days. At this time, the client does not indicate any symptoms associated with coronavirus-19. Ebola Screen: Patient negative for fever greater than or equal to 101.5 degrees Fahrenheit, and additional compatible Ebola Virus Disease symptoms Patient denies exposure to infectious person. Patient denies travel to an Ebola-affected area in the 21 days before illness onset. No symptoms or risks identified at this time. Initial Sepsis Screen: Does the patient meet any 2 criteria? No. Patient's initial sepsis screen is negative. Does the patient have a suspected source of infection? No. Patient's initial sepsis screen is negative. Risk Assessment: Do you want to hurt yourself or someone else? Patient reports no desire to harm self or others. Onset of symptoms is unknown. 11:10 Method Of Arrival: Ambulatory ab2 11:10 Acuity: DORCAS 3 ab2 Triage Assessment: 11:15 General: Appears in no apparent distress. uncomfortable, Behavior is calm, cooperative, ab2 appropriate for age. Pain: Complains of pain in right foot Pain currently is 10 out of 10 on a pain scale. Historical: - Allergies: 11:14 No Known Allergies; ab2 - PMHx: 11:14 Diabetes - IDDM; Hypertensive disorder; neuropathy; ab2 - PSHx: 11:14 R foot all toes amputated; ab2 - Immunization history:: Adult Immunizations up to date, Client reports receiving the 2nd dose of the Covid vaccine. - Social history:: Smoking status: Patient denies any tobacco usage or history of. - Family history:: not pertinent. - Hospitalizations: : Patient was recently seen at [facility]. Screenin:34 Abuse screen: Denies threats or abuse. Denies injuries from another. Nutritional jg9 screening: No deficits noted. Tuberculosis screening: No symptoms or risk factors identified. Fall Risk Fall in past 12 months (25 points). Assessment: 12:15 General: Appears uncomfortable, Behavior is crying. Pain: Complains of pain in right jg9 foot Pain currently is 10 out of 10 on a pain scale. Derm: Skin red, swollen and sergio size area of black tissue noted where the 3rd toe would be. 14:34 Reassessment: Attempted to call floor report-advised that RN will call me back. jg9 Vital Signs: 11:10 BP 126 / 80; Pulse 83; Resp 18; Temp 98.6(TE); Pulse Ox 99% on R/A; Weight 63.5 kg; ab2 Height 5 ft. 4 in. (162.56 cm); Pain 10/10; 11:45 BP 112 / 35; Pulse 71; Resp 17 S; Pulse Ox 95% on R/A; jg9 12:30 BP 110 / 45; Pulse 67; Resp 18 S; Pulse Ox 98% on R/A; jg9 13:30 BP 118 / 67; Pulse 58; Resp 16 S; Pulse Ox 98% ; jg9 14:00 BP 111 / 64; Pulse 65; Resp 17 S; Pulse Ox 100% on R/A; jg9 15:00 BP 92 / 43; Pulse 61; Resp 16 S; Pulse Ox 99% on R/A; jg9 16:30 BP 94 / 36; Pulse 60; Resp 16 S; Pulse Ox 100% on R/A; jg9 11:10 Body Mass Index 24.03 (63.50 kg, 162.56 cm) ab2 ED Course: 10:57 Patient arrived in ED. as 11:14 Triage completed. ab2 11:15 Arm band placed on right wrist. ab2 11:43 Tarah Gagnon RN is Primary Nurse. jg9 11:50 Haim Fox MD is Attending Physician. rn 12:13 Inserted saline lock: 22 gauge in right antecubital area, using aseptic technique. jg9 Blood collected. 13:10 Foot Right W Con In Process Unspecified. EDMS 13:15 Inserted saline lock: 22 gauge in right wrist, using aseptic technique. jg9 13:29 Abe Fox MD is Hospitalizing Provider. rn 13:36 Basic Metabolic Panel Sent. jg9 13:36 CBC with Diff Sent. jg9 13:40 Patient has correct armband on for positive identification. Bed in low position. Call jg9 light in reach. Side rails up X 1. 14:06 XRAY Foot RIGHT 2 View In Process Unspecified. EDMS 16:50 No provider procedures requiring assistance completed. jg9 16:52 Patient admitted, IV remains in place. jg9 Administered Medications: 12:23 Drug: morphine 4 mg Route: IVP; Site: right antecubital; jd3 13:35 Follow up: Response: No adverse reaction; Marked relief of symptoms; Pain is decreased; jg9 RASS: Alert and Calm (0) 12:24 Drug: Zofran (Ondansetron) 4 mg Route: IVP; Site: right antecubital; jd3 13:36 Follow up: Response: No adverse reaction jg9 13:10 Drug: Zosyn (piperacillin-tazobactam) 3.375 grams Route: IVPB; Infused Over: 60 mins; jg9 Site: right antecubital; 14:30 Follow up: IV Status: Completed infusion; IV Intake: 100ml jg9 13:20 Drug: vancoMYCIN 1 grams Route: IVPB; Infused Over: 2 hrs; Site: right wrist; jg9 Intake: 14:30 IV: 100ml; Total: 100ml. jg9 Outcome: 13:30 Decision to Hospitalize by Provider. rn 16:30 Admitted to Med/surg accompanied by tech, via stretcher, Report called to RUTH Nova jg9 16:52 Condition: stable jg9 16:53 Patient left the ED. jg9 Signatures: Dispatcher [employer] Mahsa Franco Roman, MD MD rn Davies, Jonathon, RN RN jd3 Tarah Gagnon RN RN jg9 Carl Alves
[2021-08-06 13:38] LABS: Urine Blood 1+ (Negative); Urine Glucose 3+ (Negative); Urine Protein Negative (Negative); Urine Specific Gravity <=1.005 (1.005-1.030); Urine pH 5.5 (5.0-7.0)
[2021-08-06] MEDS ORDERED: MORPHINE 2 MG/ML SYR IV PRN (14:39)
--- NOTE | 2021-08-06 14:42 | P.HP ---
Certification for Inpatient Patient admitted to: Inpatient With expected LOS: >2 Midnights Practitioner: I am a practitioner with admitting privileges, knowledge of patient current condition, hospital course, and medical plan of care. Services: Services provided to patient in accordance with Admission requirements found in Title 42 Section 412.3 of the Code of Federal Regulations Patient History Date of Service: 08/06/21 Reason for admission: Right foot abscess History of Present Illness: 75yo F, PMH: IDDM2 with neuropathy, PAD s/p amputation Presents to the ED due to 1 day of sudden development of right foot blister. Patient has had a few days of pain in her foot/ankle area. She presented to the ER 2 days ago for this pain. At that time an ultrasound revealed arterial occlusion, and patient was transferred to tertiary care center for vascular evaluation. There she underwent further investigation which revealed reconstitution of the artery distally and she was discharged home yesterday. Overnight she had significantly worsening of her foot pain. She denies any fever/chills, no nausea/vomiting, no diarrhea, no chest pain. In the ED, there was reportedly a lot of purulent drainage is expressed from a small ulcer/blister area on her forefoot. At the site of a prior amputation. Patient denies any recent trauma to that area, denies any recent lesions. She reports history of neuropathy, but still has sensation of her foot. She reports uncontrolled hyperglycemia, was discharged in the tertiary hospital with insulin. Allergies No Known Allergies Allergy (Verified 10/30/19 17:20) Home Medications: Aspirin Chewable [Aspirin Chewable*] 81 mg PO DAILY 10/31/19 Atorvastatin Calcium [Lipitor] 40 mg PO BEDTIME 10/31/19 Clopidogrel Bisulfate [Plavix*] 75 mg PO DAILY 10/31/19 Glipizide [Glipizide ER] 10 mg PO BIDAC 10/31/19 Lisinopril [Zestril] 10 mg PO DAILY 10/31/19 Pantoprazole [Protonix Tab*] 40 mg PO DAILY 10/31/19 Insulin Glargine Human [Lantus*] 5 units SQ BEDTIME #10 ml 11/01/19 traMADol HCL [Ultram*] 50 mg PO Q6H PRN #28 tab 11/01/19 Metoprolol Tartrate [Lopressor*] 25 mg PO BID #60 tab 09/25/20 - Past Medical/Surgical History Diabetic: Yes -: HTN -: DM2 -: wrist and elbow surgery -: toe amputation -: R leg stent -: 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 - Family History Father -: Heart disease Mother -: Diabetes - Social History Smoking Status: Never smoker Alcohol use: No CD- Drugs: No Caffeine use: Yes Place of Residence: Home Review of Systems 10-point ROS is otherwise unremarkable Physical Examination - Physical Exam General: Alert, In no apparent distress, Oriented x3 HEENT: Sclerae nonicteric Neck: No LAD Respiratory: Clear to auscultation bilaterally, Normal air movement Cardiovascular: No edema, Regular rate/rhythm Gastrointestinal: Soft and benign, Non-distended, No tenderness Musculoskeletal: Other (s/p R transmetatarsal amputation) Integumentary: Other (Small ulceration at prior amputation site on right foot, with palpable fluctuance, purulent drainage. Painful) Neurological: Normal speech, Sensation intact, Normal affect - Studies Laboratory Data (last 24 hrs) 08/06/21 12:10: Sodium 132 L, Potassium 3.7, BUN 19 H, Creatinine 0.92, Glucose 320 H 08/06/21 12:10: WBC 12.80 H, Hgb 11.7 L, Hct 35.0 L, Plt Count 267 Assessment and Plan - Advance Directives Does patient have a Living Will: No Does patient have a Durable POA for Healthcare: No Physician Review Additional Text: Problem list Right foot abscess Diabetes mellitus type 2, insulin-dependent with neuropathy Peripheral artery disease Patient with development of right foot diabetic ulcer with abscess Pain over the last several days Was recently seen in the ER and transferred to [place] for vascular surgery, discharged home CT done here shows abscess collection General surgery consulted No surgery planned for today N.p.o. after midnight, IV fluids Empiric antibiotics, cover MRSA, cover anaerobes Wound culture obtained and sent in the ED, follow blood culture Patient does not appear septic, vital stable Confirm home medications restart as appropriate VTE: Lovenox Code: Full Dispo: Anticipate DC home in 2-3 days Time Spent Managing Pts Care (In Minutes): 60
--- NOTE | 2021-08-06 15:28 | RAD REPORT ---
EXAM DESCRIPTION: RAD - Foot Right 2 View - 08/06/2021 2:06 pm CLINICAL HISTORY: swelling and pain, eval for gas COMPARISON: Foot Right W Con dated 08/06/2021; Foot Right 3 View dated 02/15/2021 FINDINGS: Soft tissue wound present anterior to the first-third metatarsal stumps. Large plantar spu r is present. No erosive or destructive bone changes identifiable. Osteomyelitis can be present prior to radiographic bone destruction. No foreign body in the soft tissues. Soft tissue swelling is prese nt. Delete select IMPRESSION: Soft tissue swelling with wound present anterior to the first- third metatarsal stumps. No radiographic bone destruction.
[2021-08-06] MEDS ORDERED: ACETAMINOPHEN 500 MG TAB PO PRN (16:41)
[2021-08-06] MEDS ORDERED: VANCOMYCIN 1.5 GM in NA CHLORIDE 0.9% 500 ML IVPB SCH (16:41)
[2021-08-06] MEDS: INSULIN -REGULAR HUMAN 50 UNIT/0.5 ML ML SQ SCH ×2 (16:41→20:39)
[2021-08-06] MEDS ORDERED: ONDANSETRON 4 MG/2 ML VIAL IV PRN (16:41)
[2021-08-06 17:32] VITALS: BMI 24.0
[2021-08-06] MEDS: NA CHLORIDE 0.9% 1,000 ML IV SCH (18:35)
[2021-08-06] MEDS: PIPER TAZO 3.375 GM in NA CHLORIDE 0.9% 100 ML IV SCH (18:35)
[2021-08-06] MEDS: TRAMADOL HCL 50 MG TAB PO PRN (23:00)
[2021-08-07] MEDS: PIPER TAZO 3.375 GM in NA CHLORIDE 0.9% 100 ML IV SCH ×3 (00:58→16:01)
[2021-08-07] MEDS: NA CHLORIDE 0.9% 1,000 ML IV SCH ×3 (02:41→12:41)
--- NOTE | 2021-08-07 06:02 | P.PN ---
Date of Service: 08/07/21 Subjective: no acute events overnight pain managed with medication ROS: 10 point ROS as noted above, otherwise negative Physical exam General: Alert, In no apparent distress, Oriented x3 HEENT: Sclerae nonicteric Respiratory: Clear to auscultation bilaterally, Normal air movement Cardiovascular: No edema, Regular rate/rhythm Gastrointestinal: Soft and benign, Non-distended, No tenderness Integumentary: Small ulceration at prior amputation site on right foot, with palpable fluctuance, purulent drainage. Painful Problem list Right foot abscess Diabetes mellitus type 2, insulin-dependent with neuropathy Peripheral artery disease Patient with development of right foot diabetic ulcer with abscess Was recently seen in the ER and transferred to [place] for vascular surgery, discharged home CT done here shows abscess collection General surgery consulted NPO, IVFs Empiric antibiotics, cover MRSA, cover anaerobes Wound culture obtained and sent in the ED, follow blood culture possible OR today/tomorrow VTE: Lovenox Code: Full Dispo: Anticipate DC home in 2-3 days Time Spent Managing Pts Care (In Minutes): 35
[2021-08-07 06:34] LABS: Absolute Lymphocytes (CBC) 2.4 K/uL (0.7-4.9); Hematocrit 30.8 % (36.0-45.0); Lymphocytes % 25.3 % (15.3-44.8); MPV 8.3 fL (7.6-11.3); RBC Red Blood Cell Count 3.46 M/uL (3.86-4.86)
[2021-08-07 06:54] LABS: Albumin 2.2 g/dL (3.4-5.0); Bilirubin Total 0.9 mg/dL (0.2-1.0); Magnesium 2.2 mg/dL (1.8-2.4); Potassium 3.5 mmol/L (3.5-5.1)
[2021-08-07] MEDS: INSULIN -REGULAR HUMAN 50 UNIT/0.5 ML ML SQ SCH ×5 (07:30→21:00)
[2021-08-07] MEDS: ENOXAPARIN 40 MG/0.4 ML SQ SCH (08:29)
[2021-08-07] MEDS: VANCOMYCIN 1.25 GM in NA CHLORIDE 0.9% 250 ML IVPB SCH (09:44)
--- NOTE | 2021-08-07 11:55 | P.CNS ---
Date of Consult: 08/07/21 PC: I was asked to see this 75-year-old female in regards to cellulitis and possible abscess on the dorsum of her right foot. HPC: Patient apparently has undergone a previous transmetatarsal amputation. Presented to the hospital recently with pain in her right foot. She was transferred to a tertiary center for evaluation. She apparently had run a cannulization of the area of her right foot. And when she was discharged she was complaining of pain in her foot, and comes now to us for diagnosis and treatment. PSHx: Previous transmetatarsal amputation PMHx: Hypertension, diabetes [insulin-dependent] Social Hx: Insulin, Plavix, aspirin, antihypertensive medication Sys R: Khmer-speaking only O/E: Awake alert vital signs are stable HEENT: Nonicteric Chest: Air entry equal bilaterally Abd: NAD [place]: On the dorsum of the right foot she has a healed amputation line. Just at the margin there is an area approximately the size of a nickel of full-thickness skin necrosis. There is an area that is lifting that has been draining for the last 24 hours. On palpation of the dorsum of the foot, there is no fluctuance to this area and it appears that an abscess collection has spontaneously drained out through this necrotic scab. Data: CT scan demonstrated abscess on the dorsum of the foot Impression: Patient had abscess on the foot which appears to have drained spontaneously. She does have some full-thickness skin loss which will require ongoing treatment. Plan: Dressing has been changed, will consult wound care team tomorrow for ongoing management. Anticipate early discharge with follow-up in the wound care center.
[2021-08-07] MEDS: TRAMADOL HCL 50 MG TAB PO PRN (14:39)
[2021-08-07] MEDS ORDERED: POTASSIUM 25 MEQ EFFERV TAB PO ONE (14:44)
[2021-08-08] MEDS: PIPER TAZO 3.375 GM in NA CHLORIDE 0.9% 100 ML IV SCH ×4 (01:00→20:00)
[2021-08-08 03:23] LABS: Absolute Lymphocytes (CBC) 2.9 K/uL (0.7-4.9); Hematocrit 32.1 % (36.0-45.0); Lymphocytes % 29.9 % (15.3-44.8); MPV 7.9 fL (7.6-11.3)
[2021-08-08 03:36] LABS: Magnesium 2.3 mg/dL (1.8-2.4); Potassium 3.8 mmol/L (3.5-5.1)
--- NOTE | 2021-08-08 06:03 | P.PN ---
Date of Service: 08/08/21 Subjective: Improving, slight pain Draining, dressing in place No shortness of breath, no chest pain, no new symptoms ROS: 10 point ROS as noted above, otherwise negative Physical exam General: Alert, In no apparent distress, Oriented x3 HEENT: Sclerae nonicteric Respiratory: Clear to auscultation bilaterally, Normal air movement Cardiovascular: No edema, Regular rate/rhythm Gastrointestinal: Soft and benign, Non-distended, No tenderness Integumentary: Small ulceration at prior amputation site on right foot, open, draining Problem list Right foot ulcer with abscess, s/p spontaneous drainage Diabetes mellitus type 2, insulin-dependent with neuropathy Peripheral artery disease Patient with development of right foot diabetic ulcer with abscess Was recently seen in the ER and transferred to [place] for vascular surgery, discharged home CT done here shows tracking deep General surgery consulted, no surgery at this time Empiric antibiotics, cover MRSA, cover anaerobes Wound culture obtained and sent in the ED, follow blood culture VTE: Lovenox Code: Full Dispo: home, likely tomorrow, f/u wound culture Time Spent Managing Pts Care (In Minutes): 35
[2021-08-08] MEDS: INSULIN -REGULAR HUMAN 50 UNIT/0.5 ML ML SQ SCH ×4 (07:30→21:00)
[2021-08-08] MEDS ORDERED: POTASSIUM CL SA 10 MEQ TAB PO ONE ×2 (09:00)
[2021-08-08] MEDS: ENOXAPARIN 40 MG/0.4 ML SQ SCH (10:00)
[2021-08-08] MEDS: VANCOMYCIN 1.25 GM in NA CHLORIDE 0.9% 250 ML IVPB SCH (10:40)
[2021-08-08 20:12] VITALS: O2SAT 96
[2021-08-09] MEDS: PIPER TAZO 3.375 GM in NA CHLORIDE 0.9% 100 ML IV SCH ×2 (01:14→09:50)
[2021-08-09] MEDS: INSULIN -REGULAR HUMAN 50 UNIT/0.5 ML ML SQ SCH ×2 (07:30→11:30)
[2021-08-09] MEDS ORDERED: MEDIHONEY 44 ML TOPICAL TUBE TOP SCH (09:00)
[2021-08-09] MEDS: VANCOMYCIN 1.25 GM in NA CHLORIDE 0.9% 250 ML IVPB SCH (09:00)
[2021-08-09] MEDS: ENOXAPARIN 40 MG/0.4 ML SQ SCH (09:52)
--- NOTE | 2021-08-09 10:21 | P.DS ---
Admission Date: 08/06/21 Discharge Date: 08/09/21 Disposition: ROUTINE DISCHARGE Discharge Condition: FAIR Reason for Admission: Right foot abscess - Problems (1) Diabetic ulcer of right foot Status: Acute (2) PAD (peripheral artery disease) Status: Acute (3) Type 2 diabetes mellitus Status: Chronic Qualifiers: Diabetes mellitus long filler cigar roller machine insulin use: with long filler cigar roller machine use Diabetes mellitus complication status: without complication Qualified Code(s): E11.9 - Type 2 diabetes mellitus without complications; Z79.4 - MCFP (current) use of insulin Brief History of Present Illness: 75yo F, PMH: IDDM2 with neuropathy, PAD s/p amputation Presents to the ED due to 1 day of sudden development of right foot blister. Patient has had a few days of pain in her foot/ankle area. She presented to the ER 2 days ago for this pain. At that time an ultrasound revealed arterial occlusion, and patient was transferred to tertiary care center for vascular evaluation. There she underwent further investigation which revealed reconstitution of the artery distally and she was discharged home yesterday. Overnight she had significantly worsening of her foot pain. She denies any fever/chills, no nausea/vomiting, no diarrhea, no chest pain. In the ED, there was reportedly a lot of purulent drainage is expressed from a small ulcer/blister area on her forefoot. At the site of a prior amputation. Patient denies any recent trauma to that area, denies any recent lesions. She reports history of neuropathy, but still has sensation of her foot. She reports uncontrolled hyperglycemia, was discharged in the tertiary hospital with insulin. Hospital Course: Patient admitted to the medical floor and started on IV antibiotics. She was seen and evaluated by general surgery Dr. Angel who recommended only medical management with local wound care. Patient seen by wound care and dressing with Chanda recommended. Her blood sugar readings were stable during the hospital stay. Blood sugar was managed with insulin sliding scale. Hemoglobin A1c is elevated to 12 and suspect noncompliance with diabetic medications. Wound culture grew strep agalactiae which is sensitive to multiple antibiotics. Patient deemed stable for discharge. She is discharged with Oral Levaquin. Resumed her home glipizide dose for glucose control.. Vital Signs/Physical Exam: Temp Pulse Resp BP Pulse Ox 97.7 F 67 16 127/70 98 08/09/21 08:00 08/09/21 08:00 08/09/21 08:00 08/09/21 08:00 08/09/21 08:00 General: Alert, In no apparent distress, Oriented x3 HEENT: Mucous membr. moist/pink Neck: Supple, JVD not distended Respiratory: Normal air movement, Crackles/rales Cardiovascular: No edema, Regular rate/rhythm, Normal S1 S2, No murmurs Gastrointestinal: Soft and benign, Non-distended, No tenderness Musculoskeletal: No swelling Integumentary: Other (Circular well-demarcated wound on the tip of the right forefoot amputation.) Neurological: Normal speech, Normal strength at 5/5 x4 extr Laboratory Data at Discharge: WBC 9.70 K/uL (4.3-10.9) 08/08/21 03:04 Hgb 10.8 g/dL (12.0-15.0) L 08/08/21 03:04 Hct 32.1 % (36.0-45.0) L 08/08/21 03:04 Plt Count 298 K/uL (152-406) D 08/08/21 03:04 Sodium 138 mmol/L (136-145) 08/08/21 03:04 Potassium 3.8 mmol/L (3.5-5.1) 08/08/21 03:04 BUN 15 mg/dL (7-18) 08/08/21 03:04 Creatinine 0.75 mg/dL (0.55-1.3) 08/08/21 03:04 Glucose 160 mg/dL (74-106) H 08/08/21 03:04 Magnesium 2.3 mg/dL (1.8-2.4) 08/08/21 03:04 Total Bilirubin 0.9 mg/dL (0.2-1.0) 08/07/21 05:50 AST 15 U/L (15-37) 08/07/21 05:50 ALT 18 U/L (12-78) 08/07/21 05:50 Alkaline Phosphatase 70 U/L (45-117) 08/07/21 05:50 Home Medications: Aspirin Chewable [Aspirin Chewable*] 81 mg PO DAILY 10/31/19 Atorvastatin Calcium [Lipitor] 40 mg PO BEDTIME 10/31/19 Clopidogrel Bisulfate [Plavix*] 75 mg PO DAILY 10/31/19 Glipizide [Glipizide ER] 10 mg PO BIDAC 10/31/19 Lisinopril [Zestril] 10 mg PO DAILY 10/31/19 Pantoprazole [Protonix Tab*] 40 mg PO DAILY 10/31/19 traMADol HCL [Ultram*] 50 mg PO Q6H PRN #28 tab 11/01/19 Metoprolol Tartrate [Lopressor*] 25 mg PO BID #60 tab 09/25/20 Medihoney [Medihoney Woundcare Gel*] 1 appl TOP DAILY #1 tube 08/09/21 levoFLOXacin [Levaquin] 750 mg PO DAILY #7 tab 08/09/21 New Medications: levoFLOXacin [Levaquin] 750 mg PO DAILY #7 tab Medihoney [Medihoney Woundcare Gel*] 1 appl TOP DAILY #1 tube Physician Discharge Instructions: Clean with Hibiclens rinse with Normal saline pat dry with gauze apply Medi- honey. Cover with 4 x 4 gauze, wrap with kerlix daily and PRN offload, float heels. Diet: ADA Activity: Ad bekah Followup: Khai Don MD [ACTIVE - CAN ADMIT] - 1-2 Weeks (call to schedule an appointment) Time spent managing pt's care (in minutes): 40
[2021-08-09] MEDS ORDERED: VANCOMYCIN 1.5 GM in NA CHLORIDE 0.9% 500 ML IVPB SCH (11:00)
[2021-08-09 13:31] VITALS: BP 170/73; TEMP 97
== END 2021-08-09 15:15 | disposition home or self-care (01) | DRG 603 ==
LOC: ER 10:54 → ERHOLD 14:04 → 2ND 16:34
PROVIDERS: ADMIT Hospitalist; ATTEND Internal Medicine
DX: L02.611 Cutaneous abscess of right foot (principal); E11.51 Type 2 diabetes mellitus with diabetic peripheral angiopathy without gangrene; E11.40 Type 2 diabetes mellitus with diabetic neuropathy, unspecified; E11.65 Type 2 diabetes mellitus with hyperglycemia; E11.621 Type 2 diabetes mellitus with foot ulcer; L97.519 Non-pressure chronic ulcer of other part of right foot with unspecified severity; I10 Essential (primary) hypertension; I70.201 Unspecified atherosclerosis of native arteries of extremities, right leg; T50.996A Underdosing of other drugs, medicaments and biological substances, initial encounter; Z79.4 Long term (current) use of insulin; Z79.82 Long term (current) use of aspirin; Z79.02 Long term (current) use of antithrombotics/antiplatelets; Z91.14 Patient's other noncompliance with medication regimen; Z89.421 Acquired absence of other right toe(s); Z79.84 Long term (current) use of oral hypoglycemic drugs; Z79.899 Other long term (current) drug therapy; Z20.822 Contact with and (suspected) exposure to COVID-19
CPT/HCPCS: 36415; 73701; 80048; 80053; 80202; 81003; 82947; 83036; 83735; 84132; 84145; 85025; 87040; 87070; 87077; 87186; 87205; 99251; 99285; J1650; J2405; J2543; J3370; J7030; J7040; J7050; Q9967; U0003

== ENCOUNTER 2021-12-27 11:59 | Emergency (ER) | payer OTHER ==
--- NOTE | 2021-12-27 14:31 | RAD REPORT ---
EXAM DESCRIPTION: CT - Chest Abd Pelvis Wo Con - 12/27/2021 2:13 pm CLINICAL HISTORY: Chest and abdomen pain. back pain from fall 2 weeks ago COMPARISON: Chest For Pe Angio dated 06/21/2020 TECHNIQUE: A limited noncontrast study was performed. All CT scans are performed using dose optimization technique as appropriate and may include automated exposure control or mA/KV adjustment according to patient size. FINDINGS: The lungs are clear.No pleural or pericardial effusion.No intrathoracic adenopathy. The liver, spleen, pancreas, adrenal glands and left kidney are within normal limits. 9 mm right gila l angiomyolipoma superiorly. No bowel obstruction, free air, free fluid or abscess. Normal appendix. Sigmoid diverticulosis is pre sent particularly notable in the pelvis. Subtle surrounding inflammation is present. No pathologic ly mphadenopathy in the abdomen or pelvis. No worrisome osseous finding. IMPRESSION: Subtle/early acute diverticulitis is possible.No acute trauma related abnormality seen.
[2021-12-27] MEDS ORDERED: NA CHLORIDE 0.9% 500 ML ONE (14:59)
[2021-12-27] MEDS ORDERED: LIDOCAINE 4% PATCH ONE (14:59)
[2021-12-27] MEDS ORDERED: ONDANSETRON 4 MG/2 ML VIAL ONE (14:59)
[2021-12-27] MEDS ORDERED: FENTANYL CITR 100 MCG/2 ML ONE (14:59)
[2021-12-27 15:04] LABS: Absolute Lymphocytes (CBC) 2.8 K/uL (0.7-4.9); Hematocrit 39.5 % (36.0-45.0); MPV 8.3 fL (7.6-11.3); RBC Red Blood Cell Count 4.49 M/uL (3.86-4.86)
[2021-12-27 15:18] LABS: Urine Blood 2+ (Negative); Urine Glucose 3+ (Negative); Urine Protein Negative (Negative); Urine pH 5.5 (5.0-7.0)
[2021-12-27 15:22] LABS: Albumin 3.9 g/dL (3.4-5.0); Bilirubin Total 2.1 mg/dL (0.2-1.0); Potassium 4.1 mmol/L (3.5-5.1)
[2021-12-27 15:34] LABS: Urine Bacteria <20 /HPF (<20); Urine Mucus 1+ /HPF (NONE SEEN); Urine RBC <5 /HPF (NONE SEEN)
[2021-12-27] MEDS ORDERED: CEFTRIAXONE 1000 MG/VIAL ONE (17:04)
[2021-12-27] MEDS ORDERED: NA CHLORIDE 0.9% 50 ML ONE (17:05)
--- NOTE | 2021-12-27 17:48 | ER ---
Nurse's Notes [facility] Name: Maria Isabel Stacy Age: 76 yrs Sex: Female : 1945 Arrival Date: 12/27/2021 Time: 12:03 Bed 14 Private MD: Khai Don E Diagnosis: Low back pain;Diverticulitis of large intestine without perforation or abscess without bleeding;UTI/ Urinary tract infection, site not specified Presentation: 12/27 12:17 Chief complaint: Patient states: she fell 2 weeks ago, and is now having low back pain ap3 rated 10/10 on a pain scale. Coronavirus screen: At this time, the client does not indicate any symptoms associated with coronavirus-19. Ebola Screen: No symptoms or risks identified at this time. Initial Sepsis Screen: Does the patient meet any 2 criteria? No. Patient's initial sepsis screen is negative. Does the patient have a suspected source of infection? No. Patient's initial sepsis screen is negative. Risk Assessment: Do you want to hurt yourself or someone else? Patient reports no desire to harm self or others. Onset of symptoms was December 13, 2021. 12:17 Method Of Arrival: Ambulatory ap3 12:17 Acuity: DORCAS 4 ap3 Triage Assessment: 12:19 General: Appears uncomfortable, Behavior is calm, cooperative. Pain: Complains of pain ap3 in right low back Pain currently is 10 out of 10 on a pain scale. Quality of pain is described as throbbing. Neuro: Level of Consciousness is awake, alert, obeys commands, Oriented to person, place, time. Cardiovascular: Patient's skin is warm and dry. Respiratory: Airway is patent Respiratory effort is even, unlabored. Musculoskeletal: Range of motion: intact in all extremities. Historical: - Allergies: 12:18 No Known Allergies; ap3 - PMHx: 12:18 Diabetes - IDDM; Hypertensive disorder; neuropathy; ap3 - Immunization history:: Client reports receiving the 2nd dose of the Covid vaccine. - Social history:: Smoking status: Patient denies any tobacco usage or history of. Screenin:20 Abuse screen: Denies threats or abuse. Nutritional screening: No deficits noted. ap3 Tuberculosis screening: No symptoms or risk factors identified. Fall Risk Fall in past 12 months (25 points). Assessment: 15:00 Reassessment: No changes from previously documented assessment. Patient and/or family ll1 updated on plan of care and expected duration. Pain level reassessed. Patient is alert, oriented x 3, equal unlabored respirations, skin warm/dry/pink. Neuro: No deficits noted. Musculoskeletal: Circulation, motion, and sensation intact. Capillary refill < 3 seconds, Reports pain in left lower back. 16:00 Reassessment: No changes from previously documented assessment. Patient and/or family ll1 updated on plan of care and expected duration. Pain level reassessed. 17:00 Reassessment: No changes from previously documented assessment. Patient and/or family ll1 updated on plan of care and expected duration. Pain level reassessed. Patient is alert, oriented x 3, equal unlabored respirations, skin warm/dry/pink. 18:01 Reassessment: No changes from previously documented assessment. Patient and/or family ll1 updated on plan of care and expected duration. Pain level reassessed. Patient is alert, oriented x 3, equal unlabored respirations, skin warm/dry/pink. Vital Signs: 12:17 BP 135 / 76; Pulse 65; Resp 19; Temp 98.0; Pulse Ox 97% ; Weight 68.04 kg; Height 5 ft. ap3 4 in. (162.56 cm); Pain 10/10; 17:59 BP 178 / 87; Pulse 56; Resp 18; Pulse Ox 97% ; Pain 0/10; ll1 12:17 Body Mass Index 25.75 (68.04 kg, 162.56 cm) ap3 ED Course: 12:03 Patient arrived in ED. mr 12:03 Khai Don MD is Private Physician. mr 12:18 Triage completed. ap3 12:20 Arm band placed on left wrist. ap3 13:09 Imtiaz Murcia PA is PHCP. cp 13:09 Haim Fox MD is Attending Physician. cp 14:15 CT Chest Abdomen Pelvis W/O Contrast In Process Unspecified. EDMS 14:38 Kaushik Ryan, RUTH is Primary Nurse. ll1 15:00 Missed attempt(s): 22 gauge in right antecubital area. Bleeding controlled, band aid ll1 applied, catheter tip intact. 15:05 No provider procedures requiring assistance completed. Inserted saline lock: 22 gauge ll1 in right antecubital area, using aseptic technique. Blood collected. 18:00 IV discontinued, intact, bleeding controlled, No redness/swelling at site. Pressure ll1 dressing applied. 18:01 Patient has correct armband on for positive identification. Bed in low position. Call 1 light in reach. Side rails up X 1. web specialist on. Pulse ox on. NIBP on. Administered Medications: 15:11 Drug: NS 0.9% 500 ml Route: IV; Rate: calculated rate; Site: right antecubital; 1 18:01 Follow up: Response: No adverse reaction; IV Status: Completed infusion; IV Intake: ll1 200ml 15:11 Drug: fentaNYL (PF) 25 mcg {Note: rass 0, pain 10/10.} Route: IVP; Site: right ll1 antecubital; 16:31 Follow up: Response: No adverse reaction; Pain is decreased; RASS: Alert and Calm (0) [facility] 15:11 Drug: Zofran (Ondansetron) 4 mg Route: IVP; Site: right antecubital; 1 16:31 Follow up: Response: No adverse reaction [facility] 15:11 Drug: Lidoderm Patch 5 % (700 mg/patch) 1 patches {Note: L lower back.} Route: Topical; 1 Site: affected area; 16:31 Follow up: Response: No adverse reaction; Pain is decreased; RASS: Alert and Calm (0) [facility] 17:04 Drug: Rocephin - (cefTRIAXone) 1 grams Route: IVPB; Infused Over: 30 mins; Site: right ll1 antecubital; 18:00 Follow up: Response: No adverse reaction; IV Status: Completed infusion; IV Intake: [id number] Medication: 18:01 VIS not applicable for this client. ll1 Intake: 18:00 IV: 50ml; Total: 50ml. ll1 18:01 IV: 200ml; Total: 250ml. 1 Outcome: 17:48 Discharge ordered by MD. leung 18:00 Discharged to home ambulatory. 1 18:00 Condition: stable 18:00 Discharge instructions given to patient, Instructed on discharge instructions, follow up and referral plans. no drinking with medication, no driving heavy equipment, medication usage, Demonstrated understanding of instructions, follow-up care, medications, Prescriptions given X 4. 18:02 Patient left the ED. 1 Signatures: Dispatcher [facility], Cassia mr Divina, HSARON Kitchen cp, Amanda RN RN ap3 Kaushik Ryan RN RN ll1
--- NOTE | 2021-12-27 17:48 | EDPHYS ---
Physician Documentation [facility] Name: Maria Isabel Stacy Age: 76 yrs Sex: Female : 1945 Arrival Date: 12/27/2021 Time: 12:03 Bed 14 Private MD: Khai Don E ED Physician Haim Fox HPI: 12/27 14:15 This 76 yrs old Female presents to ER via Ambulatory with complaints of Back cp Pain. 14:15 The patient presents with pain that is acute. The symptoms are located in the left low cp back and left mid back. Onset: The symptoms/episode began/occurred 2 week(s) ago, after fall. Associated signs and symptoms: Pertinent negatives: abdominal pain, chest pain, fever, headache, incontinence, numbness, urinary retention, weakness. The problem was sustained during a fall, after losing balance while in garage. Historical: - Allergies: 12:18 No Known Allergies; ap3 - PMHx: 12:18 Diabetes - IDDM; Hypertensive disorder; neuropathy; ap3 - Immunization history:: Client reports receiving the 2nd dose of the Covid vaccine. - Social history:: Smoking status: Patient denies any tobacco usage or history of. ROS: 14:20 Constitutional: Negative for body aches, chills, fever, poor PO intake. cp 14:20 Eyes: Negative for injury, pain, redness, and discharge. cp 14:20 Neck: Negative for pain with movement, pain at rest, stiffness. 14:20 Cardiovascular: Negative for chest pain, palpitations. 14:20 Respiratory: Negative for cough, shortness of breath, wheezing. 14:20 Abdomen/GI: Negative for abdominal pain, vomiting, diarrhea, constipation, black/tarry stool, rectal bleeding, bowel incontinence. 14:20 Back: Positive for pain at rest, pain with movement, of the left low back and left mid back. 14:20 : Negative for urinary symptoms, difficulty urinating, bladder incontinence. 14:20 Skin: Negative for rash. 14:20 Neuro: Negative for altered mental status, headache, loss of consciousness, syncope, weakness. 14:20 All other systems are negative. Exam: 14:25 Constitutional: The patient appears in no acute distress, alert, awake, cp non-diaphoretic, non-toxic, well developed, well nourished, uncomfortable. 14:25 Head/Face: Normocephalic, atraumatic. cp 14:25 Eyes: Periorbital structures: appear normal, Conjunctiva: normal, no exudate, no injection, Sclera: no appreciated abnormality, Lids and lashes: appear normal, bilaterally. 14:25 ENT: External ear(s): are unremarkable, Nose: is normal, Mouth: Lips: moist, Oral mucosa: moist, Posterior pharynx: Airway: no evidence of obstruction, patent. 14:25 Neck: C-spine: vertebral tenderness, is not appreciated, crepitus, is not appreciated, ROM/movement: is normal, is supple, without pain, no range of motions limitations. 14:25 Chest/axilla: Inspection: normal. 14:25 Cardiovascular: Rate: normal, Rhythm: regular. 14:25 Respiratory: the patient does not display signs of respiratory distress, Respirations: normal, no use of accessory muscles, no retractions, labored breathing, is not present, Breath sounds: are clear throughout, no decreased breath sounds, no stridor, no wheezing. 14:25 Abdomen/GI: Inspection: abdomen appears normal, Palpation: abdomen is soft and non-tender, in all quadrants. 14:25 Back: pain, that is moderate, of the left low back and left mid back, ROM is painful, with all movement. 14:25 Skin: cellulitis, is not appreciated, no rash present. 14:25 Neuro: Orientation: to person, place \T\ time. Mentation: is normal, Motor: moves all fours, strength is normal, Sensation: is normal, Deep tendon reflexes are 2+ (normal) in the right patellar, right Achilles, left patellar and left Achilles. Vital Signs: 12:17 BP 135 / 76; Pulse 65; Resp 19; Temp 98.0; Pulse Ox 97% ; Weight 68.04 kg; Height 5 ft. ap3 4 in. (162.56 cm); Pain 10/10; 17:59 BP 178 / 87; Pulse 56; Resp 18; Pulse Ox 97% ; Pain 0/10; ll1 12:17 Body Mass Index 25.75 (68.04 kg, 162.56 cm) ap3 MDM: 14:35 Patient medically screened. cp 17:45 Data reviewed: vital signs, nurses notes, lab test result(s), radiologic studies, CT cp scan. 17:45 Counseling: I had a detailed discussion with the patient and/or guardian regarding: the cp historical points, exam findings, and any diagnostic results supporting the discharge/admit diagnosis, lab results, radiology results, the need for outpatient follow up, a family practitioner, to return to the emergency department if symptoms worsen or persist or if there are any questions or concerns that arise at home. Response to treatment: the patient's symptoms have markedly improved after treatment, and as a result, I will discharge patient. 17:47 ED course: VSS. Pain markedly improved. Radiology studies negative for acute trauma. cp Will discharge to home for continued monitoring. 12/27 13:51 Order name: Urine Microscopic Only; Complete Time: 16:46 12/27 16:46 Interpretation: Normal except: UWBC 10-20; SQEPI 5-10. 12/27 14:37 Order name: CBC with Diff; Complete Time: 16:46 12/27 14:37 Order name: CMP; Complete Time: 16:46 12/27 16:47 Interpretation: Normal except: NA 135; GLUC 263; BUN 22; GFR 69; BILIT 2.1; ALK 120; cp GLOB 4.1; A/G 1.0. 12/27 14:37 Order name: Lipase; Complete Time: 16:46 12/27 15:18 Order name: Urine Dipstick-Ancillary; Complete Time: 16:46 [facility] 12/27 16:46 Interpretation: Normal except: UGLUC 3+; UBLD 2+; UESTR Trace. 12/27 15:37 Order name: Urine Culture [facility] 12/27 13:50 Order name: Urine Dipstick-Ancillary (obtain specimen); Complete Time: 16:31 12/27 13:55 Order name: CT Chest Abdomen Pelvis W/O Contrast; Complete Time: 14:36 12/27 14:37 Order name: IV Saline Lock; Complete Time: 14:38 12/27 14:37 Order name: Labs collected and sent; Complete Time: 14:38 Administered Medications: 15:11 Drug: NS 0.9% 500 ml Route: IV; Rate: calculated rate; Site: right antecubital; ll1 18:01 Follow up: Response: No adverse reaction; IV Status: Completed infusion; IV Intake: ll1 200ml 15:11 Drug: fentaNYL (PF) 25 mcg {Note: rass 0, pain 10/10.} Route: IVP; Site: right ll1 antecubital; 16:31 Follow up: Response: No adverse reaction; Pain is decreased; RASS: Alert and Calm (0) ll1 15:11 Drug: Zofran (Ondansetron) 4 mg Route: IVP; Site: right antecubital; ll1 16:31 Follow up: Response: No adverse reaction ll1 15:11 Drug: Lidoderm Patch 5 % (700 mg/patch) 1 patches {Note: L lower back.} Route: Topical; ll1 Site: affected area; 16:31 Follow up: Response: No adverse reaction; Pain is decreased; RASS: Alert and Calm (0) ll1 17:04 Drug: Rocephin - (cefTRIAXone) 1 grams Route: IVPB; Infused Over: 30 mins; Site: right ll1 antecubital; 18:00 Follow up: Response: No adverse reaction; IV Status: Completed infusion; IV Intake: [id number] Disposition Summary: 12/27/21 17:48 Discharge Ordered Location: Home cp Problem: new cp Symptoms: have improved cp Condition: Stable cp Diagnosis - Low back pain cp - Diverticulitis of large intestine without perforation or abscess without bleeding cp - UTI/ Urinary tract infection, site not specified cp Followup: cp - With: Private Physician - When: 2 - 3 days - Reason: Recheck today's complaints Discharge Instructions: - Discharge Summary Sheet cp - Acute Back Pain, Adult cp - Diverticulitis cp - Urinary Tract Infection, Adult cp - Heat Therapy cp - Back Exercises cp Forms: - Medication Reconciliation Form cp - Thank You Letter cp - Antibiotic Education cp - Prescription Opioid Use cp Prescriptions: - Augmentin 875-125 mg Oral Tablet - take 1 tablet by ORAL route every 12 hours for 10 days; 20 tablet; Refills: 0, cp Product Selection Permitted - Cyclobenzaprine 10 mg Oral Tablet - take 1 tablet by ORAL route every 8 hours As needed; 20 tablet; Refills: 0, cp Product Selection Permitted - Diclofenac Sodium 75 mg Oral Tablet Sustained Release - take 1 tablet by ORAL route 2 times per day; 30 tablet; Refills: 0, Product cp Selection Permitted - Lidoderm 5 % Topical adhesive patch,medicated - apply 1 patch by TOPICAL route once daily; 10 patch; Refills: 0, Product cp Selection Permitted Addendum: 01/02/2022 21:51 Co-signature as Attending Physician, Haim Fox MD. r n Signatures: Dispatcher [employer] EDHaim Bhagat MD MD rn Smirch, Shelby, RN RN ss Imtiaz Murcia PA PA cp Isis Ramos RN RN ap3 Kaushik Ryan RN RN ll1 Corrections: (The following items were deleted from the chart) 12/27 16:47 16:46 Normal except: NA 135; GLUC 263; BUN 22; GFR 69. cp cp
[2021-12-27 18:19] VITALS: TEMP 98; O2SAT 97
[2021-12-27 18:20] VITALS: BP 178/87
== END 2021-12-27 18:02 | disposition home or self-care (01) ==
LOC: ER 11:59
DX: K57.32 Diverticulitis of large intestine without perforation or abscess without bleeding (principal); N39.0 Urinary tract infection, site not specified; E11.9 Type 2 diabetes mellitus without complications; I10 Essential (primary) hypertension
CPT/HCPCS: 96365; 96361; 87088; 85025; 87086; 36415; 83690; 80053; 71250; 74176; 96375; 99284; J3010; J2001; J7040; J2405; 81003; 81015

== ENCOUNTER 2023-04-10 08:19 | Emergency (ER) | payer OTHER ==
--- OUTSIDE RECORDS SUMMARY | 2023-04-10 08:33 | XMS REPORT | Continuity of Care Document ---
:1945 Author Organization [facility] t Address [address] [place] [address] Care Team Providers Name Role Phone Trena Seo Primary Care Physician [phone] CARMEN BENITO Attending Clinician Unavailable GABRIEL STOVALL Attending Clinician Unavailable DARIUSZ SHERIDAN Attending Clinician Unavailable MARTIN MERCEDES Attending Clinician Unavailable Cramen Benito MD Attending Clinician Doctor Unassigned, [place] Attending Clinician Unavailable Mike Shin MD Attending Clinician MIKE SHIN Attending Clinician Unavailable Leesa Neville MD Attending Clinician Terell Miranda MD Attending Clinician Juana Grace Attending Clinician Vanesa Riggs MD Attending Clinician [phone] VANESA RIGGS Attending Clinician Unavailable Gabriel Stovall DPM Attending Clinician Manuel Gimenez MD Attending Clinician Job Solorio MD Attending Clinician CESAR GARCIA Attending Clinician Unavailable SHERYL RAYMOND Attending Clinician Unavailable SYBIL WALTON Attending Clinician Unavailable ESTER VALERA Attending Clinician Unavailable ISH BARILLAS Attending Clinician Unavailable CARMEN BENITO Admitting Clinician Unavailable GABRIEL STOVALL Admitting Clinician Unavailable DARIUSZ SHERIDAN Admitting Clinician Unavailable MARTIN MERCEDES Admitting Clinician Unavailable Carmen Benito MD Admitting Clinician TERELL MIRANDA Admitting Clinician Unavailable JOB SOLORIO Admitting Clinician Unavailable MAURO WATKINS Admitting Clinician Unavailable SYBIL WALTON Admitting Clinician Unavailable ESTER VALERA Admitting Clinician Unavailable Payers Payer Name Policy Type Policy Number Effective Date Expiration Date Lucretia [facility] DUAL [id number] 2020 [facility] HMO D SNP 00:00:00 [place] [id number] 2019 00:00:00 UNITED MEDICARE [id number] 2017 HMO 00:00:00 CDC REVIEW [id number] 2019 00:00:00 [place] [id number] 2018 00:00:00 Problems Condition Condition Condition Status Onset Resolution Last Treating Co mments Source Name Details Category Date Date Treatment Clinician Date 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 00 Ce nter of lower of lower extremity extremity Lower limb Lower limb Disease Active [facility] ischemia ischemia 2[facility]16 [facility] Post-opera Post-opera Disease Active [facility] tive state tive state 8-25 Laurita kes 00:00: Medical 00 Center Surgical Surgical Disease Active 2020-0 [facility] aftercare, aftercare, 8-25 Laurita kes skin or skin or 00:00: Medical subcutaneo subcutaneo 00 Ce nter us tissue us tissue Status Status Disease Recurre 2020-[address] [facility] [address] post post nce 12-17 [facility] amputation amputation 00:00: Me dical of foot of foot 00 Center through through metatarsal metatarsal bone bone Uncontroll Uncontroll Disease Recurre 2020-[address] [facility] ed type 2 ed type 2 nce 12-17 [facility] diabetes diabetes 00:00: Medica l mellitus mellitus 00 Center with with hyperglyce hyperglyce radha radha Thrombocyt Thrombocyt Disease Recurre 2019-[address] [facility] [address] osis osis nce 12-17 [facility] Impaired Impaired Disease Active 2019-0 [facility] mobility mobility 12-17 [facility] and 00:00: Medical activities activities 00 Ce nter of daily of daily living living Post-opera Post-opera Disease Active 2020-[address] tive pain tive pain 12-17 [facility] 00:[facility]: Medical 00 Center Anemia Anemia Disease Active 2020-[address] [facility] Gangrene Gangrene Disease Recurre 2020-[address] of toe of of toe of nce 6-15 [facility] right foot right foot 00:00: Me dical 00 Center Gangrene Gangrene Disease Active 2020-0 Unive rs 5-02 ity of 00:00: [place] 00 Medical Branch Osteomyeli Osteomyeli Disease Active 2020-0 U nivers tis tis 5-01 ity of 00:00: [place] 00 Medical Branch Hypotensio Hypotensio Disease Active 2019-0 U nivers n n 6-06 ity of 00:00: [place] 00 Medical Branch Epigastric Epigastric Disease Active 2019-0 U nivers pain pain 6-06 ity of 00:00: [place] 00 Medical Branch Diverticul Diverticul Disease Active 2019-0 U nivers itis itis 4-08 ity of 00:00: [place] 00 Medical Branch Essential Essential Disease Active 2018-0 Uni vers hypertensi hypertensi 4-06 it y of on, benign [place], benign [place] Uncontroll Uncontroll Disease Active 2017- U nivers ed type 2 ed type 2 1-18 ity of diabetes diabetes 00:00: [place] mellitus mellitus 00 Medica l without without Branch complicati complicati on, on, without without long-term long-term current current use of use of insulin insulin NPDR NPDR Disease Active Univers (nonprolif (nonprolif 01-07 it y of erative erative 00:00: [place] diabetic diabetic 00 Medica l retinopath retinopath Br anch y),MILD y),MILD Cataract, Cataract, Disease Active Uni vers Right eye Right eye 01-07 ity of 00:00: Medical Branch Glaucoma Glaucoma Disease Active Unive rs suspect, suspect, 01-07 ity of OU OU 00:00: [facility] Branch Hypertensi Hypertensi Disease Active U nivers ve ve 01-07 ity of retinopath retinopath [place] [facility] [place] Benign Benign Disease Active 2010-06 Univers hypertensi hypertensi 2 it y of ve heart ve heart 00:00: [place] disease disease 00 Medical without without Branch heart heart failure failure 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 U nivers ia of left ia of left 07-27 it y of eye eye 00:00: [place] [facility] Allergies, Adverse Reactions, Alerts Allergy Allergy Status Severity Reaction(s) Onset Inactive Treating Comm ents Source Name Type Date Date Clinician NO KNOWN Drug Active Univers ALLERGIE Class ity of S [facility] NO KNOWN Allergy Active [facility] ALLERGIE S Family History Family Member Diagnosis Comments Start Date Stop Date Source Natural father Diabetes type II [facility] Social History Social Habit Start Date Stop Date Quantity Comments Source Sexual orientation Univer sity of [facility] History SDOH [facility] Alcohol Std Drinks Medica l Center History SDOH [facility] Alcohol Binge Medical Joana ter History of Social 2022-07-27 2022-07-27 Univers ity of function 00:00:00 00:00:00 [facility] Exposure to 2022-07-15 2022-07-25 Not sure University of SARS-CoV-2 (event) 00:00:00 09:29:00 [facility] Alcohol intake 2020-02-10 2020-02-[address] Mery es 00:00:00 00:00:00 non-drinker of Medical Ce nter alcohol (finding) Tobacco use and 2019-12-01 2019-12-[address] [facility] exposure 00:00:00 00:00:00 non-user Medical Center History SDOH 2019-12-01 2019-12-01 1 MOI Marie Alcohol Frequency 00:00:00 00:00:00 [facility] Alcohol Comment 2011-04-26 2011-04-26 occasional Universit y of 00:00:00 00:00:00 [facility] Sex Ass[birth year] [facility] heena 00:00:00 00:00:00 [facility] Smoking Status Start Date Stop Date Source Never smoked tobacco [facility] Medications Ordered Filled Start Stop Current Ordering Indication Dosage Frequency Signature Comments Components Source Medication Medication Date Date Medication? Clinician (SIG) Name Name neomycin-po 2022- [facility] Starting ity of amethasone 14:32: 14:51 on [facility] [place] ([place] 00 :23 07/27/22 at [facility] 3.5 [facility], [place] mg/g-10,000 Until [facility] unit/g-0.1 07/27/22 at % 0851, ophthalmic Routine, ointment Intra-op gentamicin 2022- No PRN, Univer s injection 07-27 Starting ity o f 14:32: 14:51 on [facility] [place] 00 :23 07/27/22 at [place] [address], Branch Until [place] 07/27/22 at 08, DANIELA, Intra-op dexamethaso 2022- No PRN, Unive rs ne 07-27 Starting ity of (DECADRON 14:32: 14:51 on [facility] [place] PHOSPHATE) 00 :23 07/27/22 at [facility] injection [facility], Branch Until [place] 07/27/22 at 0851, Routine, Intra-op ceFAZolin 2022- No PRN, Univers (ANCEF) 07-27 Starting ity of injection 14:32: 14:51 on [facility] [place] 00 :23 07/27/22 at [place] [address], Branch Until [place] 07/27/22 at 0851, DANIELA, Intra-op chondroitin 2022- No PRN, Unive rs sulf-sod 07-27 Starting ity of hyaluronate 14:21: 14:51 on [facility] [place] as (DUOVISC 00 :23 07/27/22 at Medica l VISCO 0821, Branch ELASTIC) Until [facility] intraocular 07/27/22 at injection 0851, Routine, Intra-op water for 2022- No PRN, Univers irrigation 07-27 Starting ity of irrigation 14:11: 14:51 [place] solution 00 :23 07/27/22 at Medica l 0811, Branch Until [place] 07/27/22 at 0851, Routine, Intra-op tetracaine 2022- No PRN, Univer s (PONTOCAINE 07-27 Starting ity of ) 0.5 % 14:09: 14:51 on [facility] [place] ophthalmic 00 :23 07/27/22 at Medi casey drops 0809, Branch Until [place]ia 07/27/22 at 0851, Routine, Intra-op eye block 2022- No PRN, Univers syringe 11 07-27 Starting ity of mL 14:08: 14:51 on [facility] [place] 00 :23 07/27/22 at Medical 0808, Branch Until [place] 07/27/22 at 0851, Intra-op NaCl 0.9% 2022- No PRN, Univers (NS) 07-27 Starting ity of injection 13:51: 14:51 on [facility] [place] 00 :23 07/27/22 at Medical 0751, Branch Until [place] 07/27/22 at 0851, Routine, Intra-op EPINEPHrine 2022- No PRN, Unive rs (PF) 07-27 Starting ity of 1:1,000 (1 13:50: 14:51 [place] mg/mL) 00 :23 07/27/22 at [facility] (ADRENALIN 0750, Branch (PF)) Until [place] injection 07/27/22 at 0851, Routine, Intra-op balanced 2022- No PRN, Univers salt soln 07-27 Starting ity o f no.2 irrig. 13:50: 14:51 on [place] (BSS) 00 :23 07/27/22 at [facility] ophthalmic 0750, Branch solution Until [place] 07/27/22 at 0851, Routine, Intra-op cyclopent 2022- No .5mL 0.5 mL, Univ ers 1%-tropic 07-27 Right Eye, ity of 1%-phenyl 13:00: 13:20 ONCE, 1 [place] 2.5%-ketor 00 :00 dose, On Medic al 0.5% [place] 07/27/22 Branch (MYDRIATIC at 0700, #5) Routine, ophthalmic DSU Pre-op solution syringe 0.5 mL lactated 0 2022- No 1000mL at 42 Unive rs ringers IV 07-27- mL/hr, ity of infusion 13:00: 13:20 1,000 mL, [place] 1,000 mL 00 :00 IV Medical Infusion, Branch ONCE, 1 dose, On [place] 07/27/22 at 0700, Routine, DSU Pre-op cyclopent 2022- No .5mL 0.5 mL, Univ ers 1%-tropic 07-27 Right Eye, ity of 1%-phenyl 13:00: 13:20 ONCE, 1 [place] 2.5%-ketor 00 :00 dose, On Medic al 0.5% [place] 07/27/22 Branch (MYDRIATIC at 0700, #5) Routine, ophthalmic DSU Pre-op solution syringe 0.5 mL lactated 2022-0 2022- No 1000mL at 42 Unive rs ringers IV 07-27- mL/hr, ity of infusion 13:00: 13:20 1,000 mL, [place] 1,000 mL 00 :00 IV Medical Infusion, Branch ONCE, 1 dose, On [place] 07/27/22 at 0700, Routine, DSU Pre-op lisinopriL 2022-0 Yes 10mg Take 10 mg U nivers 10 mg 2-09 by mouth ity of tablet 09:08: daily. [address] gabapentin 2022-0 Yes 300mg Take 300 Un melissa 300 mg 2-09 mg by ity of capsule 09:08: mouth 3 [place] [address] (three) Medical times [place] daily. metoprolol 3-0 Yes 25mg Take 25 mg U nivers tartrate 25 2-09 by mouth 2 it y of mg tablet 09:08: (two) [place] [address] times [facility] daily. Branch lisinopriL 3-0 Yes 10mg Take 10 mg U nivers 10 mg 2-09 by mouth ity of tablet 09:08: daily. [place] [address] Medical Branch gabapentin 2023-0 Yes 300mg Take 300 Un melissa 300 mg 2-09 mg by ity of capsule 09:08: mouth 3 [place] [address] (three) Medical times [place] daily. metoprolol 3-0 Yes 25mg Take 25 mg U nivers tartrate 25 2-09 by mouth 2 it y of mg tablet 09:08: (two) [address] daily. Branch lisinopriL 3-0 Yes 10mg Take 10 mg U nivers 10 mg 2-09 by mouth ity of tablet 09:08: daily. [place] [address] Medical Branch gabapentin 3-0 Yes 300mg Take 300 Un melissa 300 mg 2-09 mg by ity of capsule 09:08: mouth 3 [place] [address] (three) Medical times [place] daily. metoprolol 3-0 Yes 25mg Take 25 mg U nivers tartrate 25 2-09 by mouth 2 it y of mg tablet 09:08: (two) [address] daily[address] Branch OMEPRAZOLE 2021-0 No 20 MG CPDR 8-17 00:00: 00 OMEPRAZOLE 2021-0 No 20 MG CPDR 8-17 00:00: 00 DISSOLVE 2021-0 No CONTENTS OF 8-11 1 PACKET IN 00:00: LIQUID AND 00 DRINK BY MOUTH DAILY NEEDED FOR CONSTIPATIO N FOR UP TO 14 DAYS DISSOLVE 2021-0 No CONTENTS OF 8-11 1 PACKET IN 00:00: LIQUID AND 00 DRINK BY MOUTH DAILY NEEDED FOR CONSTIPATIO N FOR UP TO 14 DAYS TAKE 1 2021-0 No 10 TABLET BY 7-28 MOUTH TWICE 00:00: DAILY 00 TAKE 1 2021-0 No 10 TABLET BY 7-28 MOUTH TWICE 00:00: DAILY 00 TAKE 1 2021-0 No 50 TABLET BY 7-27 MOUTH EVERY 00:00: DAY 00 TAKE 1 2021-0 No 75 TABLET BY 7-27 MOUTH TWICE 00:00: DAILY 00 &lt 2021-0 No 7- 00:00: 00 TAKE 1 2022-0 No 50 TABLET BY 7-27 MOUTH EVERY 00:00: DAY 00 TAKE 1 2022-0 No 75 TABLET BY 7-27 MOUTH TWICE 00:00: DAILY 00 &lt 2022-0 No 7 00:00: 00 &lt 2022-0 No 25 7 00:00: 00 &lt 2022-0 No 25 7 00:00: 00 TAKE 10 ML 2022-0 No BY MOUTH 7- EVERY 6 TO 00:00: 8 HOURS 00 NEEDED TAKE 10 ML 2022-0 No BY MOUTH 7 EVERY 6 TO 00:00: 8 HOURS 00 NEEDED &lt 2022-0 No 50 12-21 00:00: 00 Dose 2022-0 No Unknown 12-21 00:00: 00 &lt 2022-0 No 50 12-21 00:00: 00 Dose 2022-0 No Unknown 12-21 00:00: 00 TAKE 1 2-0 No TABLET BY 6-28 MOUTH TWICE 00:00: DAILY 00 &lt 2022-0 No 6-28 00:00: 00 Dose 2022-0 No Unknown 6 00:00: 00 Dose 2022-0 No Unknown 6 00:00: 00 &lt 2022-0 No 6- 00:00: 00 TAKE 1 2022-0 No CAPSULE BY 6-28 MOUTH THREE 00:00: TIMES DAILY 00 &lt 2022-0 No 6- 00:00: 00 TAKE 1 2022-0 No TABLET BY 6-28 MOUTH EVERY 00:00: DAY 00 &lt 2022-0 No 6- 00:00: 00 Dose 2022-0 No Unknown 6 00:00: 00 TAKE 1 2022-0 No TABLET BY 6-28 MOUTH TWICE 00:00: DAILY 00 &lt 2022-0 No 6-28 00:00: 00 Dose 2022-0 No Unknown 6 00:00: 00 Dose 2022-0 No Unknown 6 00:00: 00 &lt 2022-0 No 6-28 00:00: 00 TAKE 1 2022-0 No CAPSULE BY 6-28 MOUTH THREE 00:00: TIMES DAILY 00 &lt 2022-0 No 6-28 00:00: 00 TAKE 1 2022-0 No TABLET BY 6-28 MOUTH EVERY 00:00: DAY 00 &lt 2022-0 No 6-28 00:00: 00 Dose 2022-0 No Unknown 6 00:00: 00 TAKE 1 2-0 No TABLET BY 6-28 MOUTH TWICE 00:00: DAILY 00 &lt 2022-0 No 6- 00:00: 00 Dose 2022-0 No Unknown 6 00:00: 00 Dose 2022-0 No Unknown 6 00:00: 00 &lt 2022-0 No 6- 00:00: 00 TAKE 1 2-0 No CAPSULE BY 6-28 MOUTH THREE 00:00: TIMES DAILY 00 &lt 2022-0 No 6 00:00: 00 TAKE 1 2-0 No TABLET BY 6-28 MOUTH EVERY 00:00: DAY 00 &lt 2022-0 No 6 00:00: 00 Dose 2-0 No Unknown 6 00:00: 00 &lt 2022-0 No 6-27 00:00: 00 &lt 2022-0 No 6-27 00:00: 00 &lt 2022-0 No 6-27 00:00: 00 metoprolol 2022-0 No 1mg tartrate 25 6-16 mg tablet 00:00: 00 &lt 2022-0 No 6-16 00:00: 00 TAKE 1 2-0 No TABLET BY 6-16 MOUTH DAILY 00:00: 00 metoprolol 2022-0 No 1mg tartrate 25 6-16 mg tablet 00:00: 00 &lt 2022-0 No 6-16 00:00: 00 TAKE 1 2-0 No TABLET BY 6-16 MOUTH DAILY 00:00: 00 metoprolol 2022-0 No 1mg tartrate 25 6-16 mg tablet 00:00: 00 &lt 2022-0 No 6-16 00:00: 00 TAKE 1 2-0 No TABLET BY 6-16 MOUTH DAILY 00:00: 00 Dose 2022-0 No Unknown 4-24 00:00: 00 Dose 2022-0 No Unknown 4-24 00:00: 00 Dose 2022-0 No Unknown 4-24 00:00: 00 Bromfed DM 2022-0 No 10mg/5 2 mg-30 4-21 mL mg-10 mg/5 00:00: mL oral 00 syrup Dose 2022-0 No Unknown 4-21 00:00: 00 Bromfed DM 2022-0 No 10mg/5 2 mg-30 4-21 mL mg-10 mg/5 00:00: mL oral 00 syrup Dose 2022-0 No Unknown 4-21 00:00: 00 Bromfed DM 2022-0 No 10mg/5 2 mg-30 4-21 mL mg-10 mg/5 00:00: mL oral 00 syrup Dose 2022-0 No Unknown 4-21 00:00: 00 Dose 2022-0 No Unknown 3-27 00:00: 00 Dose 2022-0 No Unknown 3-27 00:00: 00 Dose 2022-0 No Unknown 3-27 00:00: 00 Dose 2022-0 No Unknown 3-27 00:00: 00 Dose 2022-0 No Unknown 3-27 00:00: 00 Dose 2022-0 No Unknown 3-27 00:00: 00 Dose 2022-0 No Unknown 3-27 00:00: 00 Dose 2022-0 No Unknown 3-27 00:00: 00 Dose 2022-0 No Unknown 3-27 00:00: 00 Dose 2022-0 No Unknown 3-27 00:00: 00 Dose 2022-0 No Unknown 3-27 00:00: 00 Dose 2022-0 No Unknown 3-27 00:00: 00 Dose 2022-0 No Unknown 3-27 00:00: 00 Dose 2022-0 No Unknown 3-27 00:00: 00 Dose 2022-0 No Unknown 3-27 00:00: 00 Dose 2022-0 No Unknown 3-27 00:00: 00 Dose 2022-0 No Unknown 3-27 00:00: 00 Dose 2022-0 No Unknown 3-27 00:00: 00 metformin 2022-0 No 1mg 1,000 mg 3-23 tablet 00:00: 00 Dose 2022-0 No Unknown 3-23 00:00: 00 metoprolol 2-0 No 1mg tartrate 25 3-23 mg tablet 00:00: 00 atorvastati 2-0 No 1mg n 80 mg 3-23 tablet 00:00: 00 hydrocodone 2-0 No 1mg 10 3-23 mg-acetamin 00:00: ophen 325 00 mg tablet gabapentin 2022-0 No 1mg 300 mg 3-23 capsule 00:00: 00 Lantus 2022-0 No 1unit/m U-100 3-23 L Insulin 100 00:00: unit/mL 00 subcutaneou s solution Dose 2022-0 No Unknown 3-23 00:00: 00 Dose 2022-0 No Unknown 3-23 00:00: 00 sertraline 2022-0 No 1mg 50 mg 3-23 tablet 00:00: 00 glipizide 2022-0 No 1mg 10 mg 3-23 tablet 00:00: 00 glipizide 2022-0 No 1mg ER 10 mg 3-23 tablet, 00:00: extended 00 release 24 hr lisinopril 2022-0 No 1mg 10 mg 3-23 tablet 00:00: 00 metformin 2022-0 No 1mg 1,000 mg 3-23 tablet 00:00: 00 metoprolol 2022-0 No 1mg tartrate 25 3-23 mg tablet 00:00: 00 atorvastati 2-0 No 1mg n 80 mg 3-23 tablet 00:00: 00 hydrocodone 2-0 No 1mg 10 3-23 mg-acetamin 00:00: ophen 325 00 mg tablet gabapentin 2-0 No 1mg 300 mg 3-23 capsule 00:00: 00 Lantus 2022-0 No 1unit/m U-100 3-23 L Insulin 100 00:00: unit/mL 00 subcutaneou s solution Dose 2022-0 No Unknown 3-23 00:00: 00 Dose 2022-0 No Unknown 3-23 00:00: 00 Dose 2022-0 No Unknown 3-23 00:00: 00 Dose 2022-0 No Unknown 3-23 00:00: 00 Dose 2022-0 No Unknown 3-23 00:00: 00 Dose 2022-0 No Unknown 3-23 00:00: 00 Dose 2022-0 No Unknown 3-23 00:00: 00 Dose 2022-0 No Unknown 3-23 00:00: 00 Dose 2022-0 No Unknown 3-23 00:00: 00 Dose 2022-0 No Unknown 3-23 00:00: 00 Dose 2022-0 No Unknown 3-23 00:00: 00 Dose 2022-0 No Unknown 3-23 00:00: 00 Dose 2022-0 No Unknown 3-23 00:00: 00 Dose 2022-0 No Unknown 3-23 00:00: 00 Dose 2022-0 No Unknown 3-23 00:00: 00 Dose 2022-0 No Unknown 3-23 00:00: 00 Dose 2022-0 No Unknown 3-23 00:00: 00 Dose 2022-0 No Unknown 3-23 00:00: 00 Dose 2022-0 No Unknown 3-23 00:00: 00 Dose 2022-0 No Unknown 3-23 00:00: 00 Dose 2022-0 No Unknown 3-23 00:00: 00 Dose 2022-0 No Unknown 3-23 00:00: 00 Dose 2022-0 No Unknown 3-23 00:00: 00 Dose 2022-0 No Unknown 3-23 00:00: 00 Dose 2022-0 No Unknown 3-23 00:00: 00 Dose 2022-0 No Unknown 3-23 00:00: 00 Dose 2022-0 No Unknown 3-23 00:00: 00 Dose 2022-0 No Unknown 3-23 00:00: 00 Dose 2022-0 No Unknown 3-23 00:00: 00 Dose 2022-0 No Unknown 3-23 00:00: 00 Dose 2022-0 No Unknown 3-23 00:00: 00 Dose 2022-0 No Unknown 3-23 00:00: 00 Dose 2022-0 No Unknown 3-23 00:00: 00 Dose 2022-0 No Unknown 3-23 00:00: 00 Dose 2022-0 No Unknown 3-23 00:00: 00 Dose 2022-0 No Unknown 3-23 00:00: 00 Dose 2022-0 No Unknown 3-23 00:00: 00 Dose 2022-0 No Unknown 3-23 00:00: 00 Dose 2022-0 No Unknown 3-23 00:00: 00 Dose 2022-0 No Unknown 3-23 00:00: 00 Dose 2022-0 No Unknown 3-23 00:00: 00 Dose 2022-0 No Unknown 3-23 00:00: 00 Dose 2022-0 No Unknown 3-23 00:00: 00 Dose 2022-0 No Unknown 3-23 00:00: 00 Dose 2022-0 No Unknown 3-23 00:00: 00 Dose 2022-0 No Unknown 3-23 00:00: 00 Dose 2022-0 No Unknown 3-23 00:00: 00 Dose 2022-0 No Unknown 3-23 00:00: 00 Dose 2022-0 No Unknown 3-23 00:00: 00 Dose 2022-0 No Unknown 3-23 00:00: 00 Dose 2022-0 No Unknown 3-23 00:00: 00 Dose 2022-0 No Unknown 3-23 00:00: 00 Dose 2022-0 No Unknown 3-23 00:00: 00 Dose 2022-0 No Unknown 3-23 00:00: 00 Dose 2022-0 No Unknown 3-23 00:00: 00 Dose 2022-0 No Unknown 3-23 00:00: 00 Dose 2022-0 No Unknown 3-23 00:00: 00 Dose 2022-0 No Unknown 3-23 00:00: 00 Dose 2022-0 No Unknown 3-23 00:00: 00 Dose 2022-0 No Unknown 3-23 00:00: 00 Dose 2022-0 No Unknown 3-23 00:00: 00 Dose 2022-0 No Unknown 3-23 00:00: 00 Dose 2022-0 No Unknown 3-23 00:00: 00 Dose 2022-0 No Unknown 3-23 00:00: 00 Dose 2022-0 No Unknown 3-23 00:00: 00 Dose 2022-0 No Unknown 3-23 00:00: 00 Dose 2022-0 No Unknown 3-23 00:00: 00 Dose 2022-0 No Unknown 3-23 00:00: 00 Dose 2022-0 No Unknown 3-23 00:00: 00 Dose 2022-0 No Unknown 3-23 00:00: 00 Dose 2022-0 No Unknown 3-23 00:00: 00 Dose 2022-0 No Unknown 3-23 00:00: 00 Dose 2022-0 No Unknown 3-23 00:00: 00 Dose 2022-0 No Unknown 3-23 00:00: 00 Dose 2022-0 No Unknown 3-23 00:00: 00 Dose 2022-0 No Unknown 3-23 00:00: 00 Dose 2022-0 No Unknown 3-23 00:00: 00 Dose 2022-0 No Unknown 3-23 00:00: 00 Dose 2022-0 No Unknown 3-23 00:00: 00 Dose 2022-0 No Unknown 3-23 00:00: 00 Dose 2022-0 No Unknown 3-23 00:00: 00 Dose 2022-0 No Unknown 3-23 00:00: 00 Dose 2022-0 No Unknown 3-23 00:00: 00 Dose 2022-0 No Unknown 3-23 00:00: 00 Dose 2022-0 No Unknown 3-23 00:00: 00 Dose 2022-0 No Unknown 3-23 00:00: 00 Dose 2022-0 No Unknown 3-23 00:00: 00 Dose 2022-0 No Unknown 3-23 00:00: 00 Dose 2022-0 No Unknown 3-23 00:00: 00 Dose 2022-0 No Unknown 3-23 00:00: 00 Dose 2022-0 No Unknown 3-23 00:00: 00 Dose 2022-0 No Unknown 3-23 00:00: 00 Dose 2022-0 No Unknown 3-23 00:00: 00 Dose 2022-0 No Unknown 3-23 00:00: 00 Dose 2022-0 No Unknown 3-23 00:00: 00 Dose 2022-0 No Unknown 3-23 00:00: 00 Dose 2022-0 No Unknown 3-23 00:00: 00 Dose 2022-0 No Unknown 3-23 00:00: 00 Dose 2022-0 No Unknown 3-23 00:00: 00 Dose 2022-0 No Unknown 3-23 00:00: 00 Dose 2022-0 No Unknown 3-23 00:00: 00 Dose 2022-0 No Unknown 3-23 00:00: 00 sertraline 2-0 No 1mg 50 mg 3-23 tablet 00:00: 00 glipizide 2022-0 No 1mg 10 mg 3-23 tablet 00:00: 00 glipizide 2-0 No 1mg ER 10 mg 3-23 tablet, 00:00: extended 00 release 24 hr lisinopril 2-0 No 1mg 10 mg 3-23 tablet 00:00: 00 metformin 2-0 No 1mg 1,000 mg 3-23 tablet 00:00: 00 metoprolol 2-0 No 1mg tartrate 25 3-23 mg tablet 00:00: 00 atorvastati 2-0 No 1mg n 80 mg 3-23 tablet 00:00: 00 hydrocodone 2-0 No 1mg 10 3-23 mg-acetamin 00:00: ophen 325 00 mg tablet gabapentin 2-0 No 1mg 300 mg 3-23 capsule 00:00: 00 Dose 2022-0 No Unknown 3-23 00:00: 00 Lantus 2-0 No 1unit/m U-100 3-23 L Insulin 100 00:00: unit/mL 00 subcutaneou s solution Dose 2021-0 No Unknown 3-23 00:00: 00 Dose 2-0 No Unknown 3-23 00:00: 00 Dose 2-0 No Unknown 3-23 00:00: 00 Dose 2-0 No Unknown 3-23 00:00: 00 Dose 2-0 No Unknown 3-23 00:00: 00 Dose 2-0 No Unknown 3-23 00:00: 00 Dose 2-0 No Unknown 3-23 00:00: 00 Dose 2-0 No Unknown 3-23 00:00: 00 Dose 2-0 No Unknown 3-23 00:00: 00 Dose 2-0 No Unknown 3-23 00:00: 00 Dose 2-0 No Unknown 3-23 00:00: 00 Dose 2-0 No Unknown 3-23 00:00: 00 Dose 2-0 No Unknown 3-23 00:00: 00 Dose 2-0 No Unknown 3-23 00:00: 00 Dose 2022-0 No Unknown 3-23 00:00: 00 Dose 2-0 No Unknown 3-23 00:00: 00 Dose 2-0 No Unknown 3-23 00:00: 00 Dose 2-0 No Unknown 3-23 00:00: 00 Dose 2-0 No Unknown 3-23 00:00: 00 Dose 2-0 No Unknown 3-23 00:00: 00 Dose 2-0 No Unknown 3-23 00:00: 00 Dose 2-0 No Unknown 3-23 00:00: 00 Dose 2-0 No Unknown 3-23 00:00: 00 Dose 2022-0 No Unknown 3-23 00:00: 00 Dose 2-0 No Unknown 3-23 00:00: 00 Dose 2-0 No Unknown 3-23 00:00: 00 Dose 2022-0 No Unknown 3-23 00:00: 00 Dose 2022-0 No Unknown 3-23 00:00: 00 Dose 2022-0 No Unknown 3-23 00:00: 00 Dose 2022-0 No Unknown 3-23 00:00: 00 Dose 2022-0 No Unknown 3-23 00:00: 00 Dose 2022-0 No Unknown 3-23 00:00: 00 Dose 2022-0 No Unknown 3-23 00:00: 00 Dose 2022-0 No Unknown 3-23 00:00: 00 Dose 2022-0 No Unknown 3-23 00:00: 00 Dose 2022-0 No Unknown 3-23 00:00: 00 Dose 2022-0 No Unknown 3-23 00:00: 00 Dose 2022-0 No Unknown 3-23 00:00: 00 Dose 2022-0 No Unknown 3-23 00:00: 00 Dose 2022-0 No Unknown 3-23 00:00: 00 Dose 2022-0 No Unknown 3-23 00:00: 00 Dose 2022-0 No Unknown 3-23 00:00: 00 Dose 2022-0 No Unknown 3-23 00:00: 00 Dose 2022-0 No Unknown 3-23 00:00: 00 Dose 2022-0 No Unknown 3-23 00:00: 00 Dose 2022-0 No Unknown 3-23 00:00: 00 Dose 2022-0 No Unknown 3-23 00:00: 00 Dose 2022-0 No Unknown 3-23 00:00: 00 Dose 2022-0 No Unknown 3-23 00:00: 00 Dose 2022-0 No Unknown 3-23 00:00: 00 Dose 2022-0 No Unknown 3-23 00:00: 00 Dose 2022-0 No Unknown 3-23 00:00: 00 Dose 2022-0 No Unknown 3-23 00:00: 00 Dose 2022-0 No Unknown 3-23 00:00: 00 Dose 2022-0 No Unknown 3-23 00:00: 00 Dose 2022-0 No Unknown 3-23 00:00: 00 Dose 2022-0 No Unknown 3-23 00:00: 00 Dose 2022-0 No Unknown 3-23 00:00: 00 Dose 2022-0 No Unknown 3-23 00:00: 00 Dose 2022-0 No Unknown 3-23 00:00: 00 Dose 2022-0 No Unknown 3-23 00:00: 00 Dose 2022-0 No Unknown 3-23 00:00: 00 Dose 2022-0 No Unknown 3-23 00:00: 00 Dose 2022-0 No Unknown 3-23 00:00: 00 Dose 2022-0 No Unknown 3-23 00:00: 00 Dose 2022-0 No Unknown 3-23 00:00: 00 Dose 2022-0 No Unknown 3-23 00:00: 00 Dose 2022-0 No Unknown 3-23 00:00: 00 Dose 2022-0 No Unknown 3-23 00:00: 00 Dose 2022-0 No Unknown 3-23 00:00: 00 Dose 2022-0 No Unknown 3-23 00:00: 00 Dose 2022-0 No Unknown 3-23 00:00: 00 Dose 2022-0 No Unknown 3-23 00:00: 00 Dose 2022-0 No Unknown 3-23 00:00: 00 Dose 2022-0 No Unknown 3-23 00:00: 00 Dose 2022-0 No Unknown 3-23 00:00: 00 Dose 2022-0 No Unknown 3-23 00:00: 00 Dose 2022-0 No Unknown 3-23 00:00: 00 Dose 2022-0 No Unknown 3-23 00:00: 00 Dose 2022-0 No Unknown 3-23 00:00: 00 Dose 2022-0 No Unknown 3-23 00:00: 00 Dose 2022-0 No Unknown 3-23 00:00: 00 Dose 2022-0 No Unknown 3-23 00:00: 00 Dose 2022-0 No Unknown 3-23 00:00: 00 Dose 2022-0 No Unknown 3-23 00:00: 00 Dose 2022-0 No Unknown 3-23 00:00: 00 Dose 2022-0 No Unknown 3-23 00:00: 00 Dose 2022-0 No Unknown 3-23 00:00: 00 Dose 2022-0 No Unknown 3-23 00:00: 00 Dose 2022-0 No Unknown 3-23 00:00: 00 Dose 2022-0 No Unknown 3-23 00:00: 00 Dose 2022-0 No Unknown 3-23 00:00: 00 Dose 2022-0 No Unknown 3-23 00:00: 00 Dose 2022-0 No Unknown 3-23 00:00: 00 Dose 2-0 No Unknown 3-23 00:00: 00 Dose 2-0 No Unknown 3-23 00:00: 00 Dose 2022-0 No Unknown 3-23 00:00: 00 Dose 2022-0 No Unknown 3-23 00:00: 00 Dose 2-0 No Unknown 3-23 00:00: 00 Dose 2-0 No Unknown 3-23 00:00: 00 Dose 2-0 No Unknown 3-23 00:00: 00 Dose 2-0 No Unknown 3-23 00:00: 00 Dose 2-0 No Unknown 3-23 00:00: 00 Dose 2-0 No Unknown 3-23 00:00: 00 Dose 2-0 No Unknown 3-23 00:00: 00 Dose 2-0 No Unknown 3-23 00:00: 00 Dose 2-0 No Unknown 3-23 00:00: 00 Dose 2-0 No Unknown 3-23 00:00: 00 Dose 2-0 No Unknown 3-23 00:00: 00 sertraline 2-0 No 1mg 50 mg 3-23 tablet 00:00: 00 Dose 2-0 No Unknown 3-23 00:00: 00 Dose 2-0 No Unknown 3-23 00:00: 00 Dose 2-0 No Unknown 3-23 00:00: 00 Dose 2-0 No Unknown 3-23 00:00: 00 Dose 2-0 No Unknown 3-23 00:00: 00 Dose 2-0 No Unknown 3-23 00:00: 00 Dose 2-0 No Unknown 3-23 00:00: 00 Dose 2-0 No Unknown 3-23 00:00: 00 Dose 2-0 No Unknown 3-23 00:00: 00 Dose 2-0 No Unknown 3-23 00:00: 00 glipizide 2-0 No 1mg 10 mg 3-23 tablet 00:00: 00 Dose 2-0 No Unknown 3-23 00:00: 00 Dose 2022-0 No Unknown 3-23 00:00: 00 Dose 2-0 No Unknown 3-23 00:00: 00 Dose 2-0 No Unknown 3-23 00:00: 00 Dose 2-0 No Unknown 3-23 00:00: 00 Dose 2-0 No Unknown 3-23 00:00: 00 Dose 2-0 No Unknown 3-23 00:00: 00 Dose 2-0 No Unknown 3-23 00:00: 00 Dose 2-0 No Unknown 3-23 00:00: 00 Dose 2-0 No Unknown 3-23 00:00: 00 glipizide 2021-0 No 1mg ER 10 mg 3-23 tablet, 00:00: extended 00 release 24 hr Dose 2021-0 No Unknown 3-23 00:00: 00 Dose 2-0 No Unknown 3-23 00:00: 00 Dose 2-0 No Unknown 3-23 00:00: 00 Dose 2-0 No Unknown 3-23 00:00: 00 Dose 2-0 No Unknown 3-23 00:00: 00 Dose 2-0 No Unknown 3-23 00:00: 00 Dose 2-0 No Unknown 3-23 00:00: 00 Dose 2-0 No Unknown 3-23 00:00: 00 Dose 2-0 No Unknown 3-23 00:00: 00 Dose 2-0 No Unknown 3-23 00:00: 00 lisinopril 2-0 No 1mg 10 mg 3-23 tablet 00:00: 00 Dose 2-0 No Unknown 3-23 00:00: 00 Dose 2-0 No Unknown 3-23 00:00: 00 Dose 2-0 No Unknown 3-23 00:00: 00 Dose 2-0 No Unknown 3-23 00:00: 00 Dose 2-0 No Unknown 3-23 00:00: 00 Dose 2-0 No Unknown 3-23 00:00: 00 Dose 2-0 No Unknown 3-23 00:00: 00 Dose 2-0 No Unknown 3-23 00:00: 00 Dose 2-0 No Unknown 3-23 00:00: 00 Dose 2-0 No Unknown 3-23 00:00: 00 lisinopriL 2022-0 2022- No 5mg QD Take [address] [facility] (PRINIVIL,Z 2-17 02-17 by mouth Mery es ESTRIL) 5 13:22: 00:00 daily. Medic al MG tablet 52 :00 Center gabapentin 2021-0 2021- No 300mg Q.[id number] Take [address] [facility] (NEURONTIN) 2-17 02-17 [id number] [facility] MG 13:22: 00:00 3D mouth 3 Medical capsule 52 :00 (three) Center times daily. metFORMIN 2021-0 2- No 1000mg Take 1,[address] [facility] (GLUCOPHAGE 2-17 02-17 mg by [facility] ) 1000 MG 13:22: 00:00 mouth 2 Medi casey tablet 52 :00 (two) Center times daily with breakfast and dinner. lisinopriL 2021-0 2021- No 5mg QD Take [address] (PRINIVIL,Z 2-17 02-17 by mouth Mery es ESTRIL) 5 13:22: 00:00 daily. Medic al MG tablet 52 :00 Center gabapentin 2021-0 2021- No 300mg Q.[id number] Take [address] [facility] (NEURONTIN) 2-17 02-17 [id number] [facility] 300 MG 13:22: 00:00 3D mouth 3 Medical capsule 52 :00 (three) Center times daily. metFORMIN 2021-0 2021- No 1000mg Take 1,[address] [facility] (GLUCOPHAGE 2-17 02-17 mg [facility] ) 1000 MG 13:22: 00:00 mouth 2 Medi casey tablet 52 :00 (two) Center times daily with breakfast and dinner. lisinopriL 2021-0 2021- No 5mg QD Take [address] (PRINIVIL,Z 2-17 02-17 by mouth Mery es ESTRIL) 5 13:22: 00:00 daily. Medic al MG tablet 52 :00 Center gabapentin 2021-0 2021- No 300mg Q.[id number] Take [address] [facility] (NEURONTIN) 2-17 02-17 [id number] mg [facility] 300 MG 13:22: 00:00 3D mouth 3 Medical capsule 52 :00 (three) Center times daily. metFORMIN 2021-0 2021- No 1000mg Take 1,[address] [facility] (GLUCOPHAGE 2-17 02-17 mg [facility] ) 1000 MG 13:22: 00:00 mouth 2 Medi casey tablet 52 :00 (two) Center times daily with breakfast and dinner. lisinopriL 2021-0 2022- No 5mg QD Take [address] [facility] (PRINIVIL,Z 2-17 02-17 by mouth Mery es ESTRIL) 5 13:22: 00:00 daily. Medic al MG tablet 52 :00 Center gabapentin 2021-0 2022- No 300mg Q.[id number] Take [address] [facility] (NEURONTIN) 2-17 02-17 [id number] [facility] 300 MG 13:22: 00:00 3D mouth 3 Medical capsule 52 :00 (three) Center times daily. metFORMIN 2021-0 2022- No 1000mg Take 1,[address] [facility] (GLUCOPHAGE 2-17 02-17 mg [facility] ) 1000 MG 13:22: 00:00 mouth 2 Medi casey tablet 52 :00 (two) Center times daily with breakfast and dinner. lisinopriL 2022-0 2022- No 5mg QD Take [address] [facility] (PRINIVIL,Z 2-17 02-17 by mouth Mery es ESTRIL) 5 13:22: 00:00 daily. Medic al MG tablet 52 :00 Center gabapentin 2021-0 2- No 300mg Q.[id number] Take [address] [facility] (NEURONTIN) 2-17 02-17 [id number] [facility] 300 MG 13:22: 00:00 3D mouth 3 Medical capsule 52 :00 (three) Center times daily. metFORMIN 2021-0 2021- No 1000mg Take 1,[address] [facility] (GLUCOPHAGE 2-17 02-17 mg [facility] ) 1000 MG 13:22: 00:00 mouth 2 Medi casey tablet 52 :00 (two) Center times daily with breakfast and dinner. lisinopriL 2021-0 2022- No 5mg QD Take [address] [facility] (PRINIVIL,Z 2-17 02-17 by mouth Mery es ESTRIL) 5 13:22: 00:00 daily. Medic al MG tablet 52 :00 Center gabapentin 2021-0 2- No 300mg Q.[id number] Take [address] [facility] (NEURONTIN) 2-17 02-17 [id number] mg [facility] 300 MG 13:22: 00:00 3D mouth 3 Medical capsule 52 :00 (three) Center times daily. metFORMIN 2021-0 2022- No 1000mg Take 1,[address] [facility] (GLUCOPHAGE 2-17 02-17 mg [facility] ) 1000 MG 13:22: 00:00 mouth 2 Medi casey tablet 52 :00 (two) Center times daily with breakfast and dinner. insulin Yes 10U Q.5D Inject 10 [facility] gl[facility]ine [facility] (Lantus 00:00: subcutaneo Medi casey U-100 00 us 2 [place] Insulin) (two) 100 unit/mL times injection daily Use as directed. insulin Yes Use [address] [facility] syringe-nee 2-17 needle [facility] U-100 00:00: daily. Medica l 0.3 mL 31 00 Center gauge x 5/16" Syrg lancets Yes Use [address] [facility] Misc 2-17 lancet [facility] 00:00: daily. [address] blood sugar 0 Yes Use 2 [facility] diagnostic 2-17 strips [facility] ([facility]Touch 00:00: daily. Medic al Test Strip) [address] [place] [address] insulin Yes 10U Q.5D Inject 10 [facility] glargine 2-17 [facility] (Lantus 00:00: subcutaneo Medi casey U-100 00 us 2 [place] Insulin) (two) 100 unit/mL times injection daily Use as directed. insulin Yes Use [address] [facility] syringe-nee 2-17 needle [facility] U-100 00:00: daily. Medica l 0.3 mL 31 00 Center gauge x 5/16" Syrg lancets 0 Yes Use [address] [facility] Misc 2-17 lancet [facility] 00:00: daily. [address] blood sugar 0 Yes Use 2 [facility] diagnostic [facility] strips [facility] ([facility] 00:00: daily. Medic al Test Strip) 00 [facility] insulin 0 Yes 10U Q.5D Inject 10 [facility] glargine 2-17 [facility] (Lantus 00:00: subcutaneo Medi casey U-100 00 us 2 [place] Insulin) (two) 100 unit/mL times injection daily Use as directed. insulin Yes Use [address] [facility] syringe-nee 2-17 needle [facility] U-100 00:00: daily. Medica l 0.3 mL 31 00 Center gauge x 5/16" Syrg lancets 0 Yes Use [address] [facility] Misc 2-17 lancet [facility] 00:00: daily. [address] blood sugar 0 Yes Use 2 [facility] diagnostic [facility] strips [facility] ([facility] 00:00: daily. Medic al Test Strip) 00 [facility] insulin 0 Yes 10U Q.5D Inject 10 [facility] glargine 2-17 [facility] (Lantus 00:00: subcutaneo Medi casey U-100 00 usly 2 [place] Insulin) (two) 100 unit/mL times injection daily Use as directed. insulin Yes Use [address] [facility] syringe-nee 2-17 needle [facility] d[facility] U-100 00:00: daily. Medica l 0.3 mL Center gauge x 5/16" Syrg lancets 0 Yes Use [address] [facility] Misc 2-17 lancet [facility] 00:00: daily. [address] blood sugar 0 Yes Use 2 [facility] diagnostic 2-[facility] strips [facility] ([facility] 00:00: daily. Medic al Test Strip) 00 [facility] insulin 0 Yes 10U Q.5D Inject 10 [facility] glargine 2-17 [facility] (Lantus 00:00: subcutaneo Medi casey U-100 00 usly 2 [place] Insulin) (two) 100 unit/mL times injection daily Use as directed. insulin Yes Use [address] [facility] syringe-nee 2-17 needle [facility] U-100 00:00: daily. Medica l 0.3 mL Center gauge x 5/16" Syrg lancets 0 Yes Use [address] [facility] Misc 2-17 lancet [facility] 00:00: daily. [address] blood sugar 2021-0 Yes Use 2 [facility] diagnostic [facility] strips [facility] ([facility] 00:00: daily. Medic al Test Strip) 00 [facility] insulin 2021-0 Yes 10U Q.5D Inject 10 [facility] glargine 2-17 [facility] (Lantus 00:00: subcutaneo Medi casey U-100 00 usly 2 [place] Insulin) (two) 100 unit/mL times injection daily Use as directed. insulin 0 Yes Use [address] [facility] syringe-nee 2-17 needle [facility] d[facility] U-100 00:00: daily. Medica l 0.3 mL 31 00 Center gauge x 5/16" Syrg lancets 0 Yes Use [address] [facility] Misc 2-17 lancet [facility] 00:00: daily. [address] blood sugar 0 Yes Use 2 [facility] diagnostic 2-[facility] strips [facility] ([facility] 00:00: daily. Medic al Test Strip) 00 [facility] insulin 0 Yes 10U Q.5D Inject 10 [facility] glargine 2-17 [facility] (Lantus 00:00: subcutaneo Medi casey U-100 00 us 2 [place] Insulin) (two) 100 unit/mL times injection daily Use as directed. insulin 0 Yes Use [address] [facility] syringe-nee 2-17 needle [facility] d[facility] U-100 00:00: daily. Medica l 0.3 mL 31 00 Center gauge x 5/16" Syrg lancets 0 Yes Use [address] [facility] Misc 2-17 lancet [facility] 00:00: daily. [address] blood sugar 0 Yes Use 2 [facility] diagnostic 2-[facility] strips [facility] ([facility] 00:00: daily. Medic al Test Strip) 00 [facility] insulin 2021-0 Yes 10U Q.5D Inject 10 [facility] glargine 2-17 [facility] (Lantus 00:00: subcutaneo Medi casey U-100 00 us 2 [place] Insulin) (two) 100 unit/mL times injection daily Use as directed. insulin 0 Yes Use [address] [facility] syringe-nee 2-17 needle [facility] d[facility] U-100 00:00: daily. Medica l 0.3 mL 31 00 Center gauge x 5/16" Syrg lancets 0 Yes Use [address] [facility] Misc 2-17 lancet [facility] 00:00: daily. [address] blood sugar 2021-0 Yes Use 2 [facility] diagnostic [facility] strips [facility] ([facility] 00:00: daily. Medic al Test Strip) 00 [facility] insulin 2021-0 Yes 10U Q.5D Inject 10 [facility] glargine 2-17 [facility] (Lantus 00:00: subcutaneo Medi casey U-100 00 usly 2 Center Insulin) (two) 100 unit/mL times injection daily Use as directed. insulin Yes Use [address] [facility] syringe-nee 2-17 needle [facility] U-100 00:00: daily. Medica l 0.3 mL 31 00 Center gauge x 5/16" Syrg lancets Yes Use [address] [facility] Misc 2-17 lancet [facility] 00:00: daily. Medical 00 Center blood sugar Yes Use 2 [facility] ([facility] 00:00: daily. Medic al Test Strip) [address] blood-gluco 2022- No Use as [facility] se meter 2-08-04 instructed [facility] ([facility] 00:00: 23:59 . Medica l Glucose 00 :00 Center Monitoring) kit blood-gluco 0 2022- No Use as [facility] se meter 08-04 instructed [facility] ([facility] 00:00: 23:59 . Medica l Glucose 00 :00 Center Monitoring) kit blood-gluco 2021-0 2022- No Use as [facility] se meter 08-04 instructed [facility] ([facility] 00:00: 23:59 . Medica l Glucose 00 :00 Center Monitoring) kit blood-gluco 2021-0 2022- No Use as [facility] se meter 2-08-04 instructed [facility] ([facility] 00:00: 23:59 . Medica l Glucose 00 :00 Center Monitoring) kit blood-gluco 2021-0 2022- No Use as [facility] se meter 2-08-04 instructed [facility] ([facility] 00:00: 23:59 . Medica l Glucose 00 :00 Center Monitoring) kit blood-gluco 2021-0 2022- No Use as [facility] se meter 208-04 instructed [facility] ([facility] 00:00: 23:59 . Medica l Glucose 00 :00 Center Monitoring) kit blood-gluco 2021-0 2022- No Use as [facility] se meter 08-04 instructed [facility] ([facility] 00:00: 23:59 . Medica l Glucose 00 :00 Center Monitoring) kit blood-gluco 2022- No Use as [facility] se meter 08-04 instructed [facility] ([facility] 00:00: 23:59 . Medica l Glucose 00 :00 Center Monitoring) kit blood-gluco 2022- No Use as [facility] se meter 08-04 instructed [facility] ([facility] 00:00: 23:59 . Medica l Glucose 00 :00 Center Monitoring) kit metFORMIN 2021-2021- No 1000mg Take [address] [facility] (GLUCOPHAGE 2-17 05-18 tablet [facility] ) 1000 MG 00:00: 23:59 (1,000 mg Me dical tablet 00 :00 total) by Center mouth 2 (two) times daily with breakfast and dinner for 90 days. aspirin 81 2021-0 2021- No 81mg QD Take [address] [facility] MG chewable 2-17 05-18 tablet (81 [facility] tablet 00:00: 23:59 mg total) Medic al 00 :00 by mouth Center daily for 90 days. gabapentin 2021-2021- No 300mg Q.[id number] Take [address] [facility] (NEURONTIN) 2-17 05-18 [id number] capsule [facility] 300 MG 00:00: 23:59 3D (300 mg Medical capsule 00 :00 total) by Center mouth 3 (three) times daily for 90 days. atorvastati 2021-2021- No 80mg QD Take [address] [facility] n (LIPITOR) 2-17 05-18 tablet (80 [facility] 80 MG 00:00: 23:59 mg total) Medica l tablet 00 :00 by mouth Center nightly for 90 days. metFORMIN 2021-2021- No 1000mg Take [address] [facility] (GLUCOPHAGE 2-17 05-18 tablet [facility] ) 1000 MG 00:00: 23:59 (1,000 mg Me dical tablet 00 :00 total) by Center mouth 2 (two) times daily with breakfast and dinner for 90 days. aspirin 81 2021-0 2- No 81mg QD Take [address] [facility] MG chewable 2-17 05-18 tablet (81 [facility] tablet 00:00: 23:59 mg total) Medic al 00 :00 by mouth Center daily for 90 days. gabapentin 2021-2021- No 300mg Q.[id number] Take [address] [facility] (NEURONTIN) 2-17 05-18 [id number] capsule [facility] 300 MG 00:00: 23:59 3D (300 mg Medical capsule 00 :00 total) by Center mouth 3 (three) times daily for 90 days. atorvastati 2021-2- No 80mg QD Take [address] [facility] n (LIPITOR) 2-17 05-18 tablet (80 [facility] 80 MG 00:00: 23:59 mg total) Medica l tablet 00 :00 by mouth Center nightly for 90 days. metFORMIN 2021-2021- No 1000mg Take [address] [facility] (GLUCOPHAGE 2-17 05-18 tablet [facility] ) 1000 MG 00:00: 23:59 (1,000 mg Me dical tablet 00 :00 total) by Center mouth 2 (two) times daily with breakfast and dinner for 90 days. aspirin 81 2021-0 2021- No 81mg QD Take [address] [facility] MG chewable 2-17 05-18 tablet (81 [facility] tablet 00:00: 23:59 mg total) Medic al 00 :00 by mouth Center daily for 90 days. gabapentin 2021-2021- No 300mg Q.[id number] Take [address] [facility] (NEURONTIN) 2-17 05-18 [id number] [facility] 300 MG 00:00: 23:59 3D (300 mg Medical capsule 00 :00 total) by Center mouth 3 (three) times daily for 90 days. atorvastati 2021-0 2021- No 80mg QD Take [address] [facility] n (LIPITOR) 2-17 05-18 tablet (80 [facility] 80 MG 00:00: 23:59 mg total) Medica l tablet 00 :00 by mouth Center nightly for 90 days. metFORMIN 2-0 2- No 1000mg Take [address] [facility] (GLUCOPHAGE 2-17 05-18 tablet [facility] ) 1000 MG 00:00: 23:59 (1,000 mg Me dical tablet 00 :00 total) by Center mouth 2 (two) times daily with breakfast and dinner for 90 days. aspirin 81 2022-0 2022- No 81mg QD Take [address] [facility] MG chewable 2-17 05-18 tablet (81 [facility] tablet 00:00: 23:59 mg total) Medic al 00 :00 by mouth Center daily for 90 days. gabapentin 2021-2021- No 300mg Q.[id number] Take [address] [facility] (NEURONTIN) 2-18 [id number] [facility] 300 MG 00:00: 23:59 3D (300 mg Medical capsule 00 :00 total) by Center mouth 3 (three) times daily for 90 days. atorvastati 2021-2021- No 80mg QD Take [address] [facility] n (LIPITOR) 2-18 tablet (80 [facility] 80 MG 00:00: 23:59 mg total) Medica l tablet 00 :00 by mouth Center nightly for 90 days. metFORMIN 2021-2021- No 1000mg Take [address] [facility] (GLUCOPHAGE 2-01 11-18 tablet [facility] ) 1000 MG 00:00: 23:59 (1,000 mg Me dical tablet 00 :00 total) by Center mouth 2 (two) times daily with breakfast and dinner for 90 days. aspirin 81 2021-2021- No 81mg QD Take [address] [facility] MG chewable 08-04-18 tablet (81 [facility] tablet 00:00: 23:59 mg total) Medic al 00 :00 by mouth Center daily for 90 days. gabapentin 2021-2021- No 300mg Q.[id number] Take [address] [facility] (NEURONTIN) 08-04-18 [id number] [facility] 300 MG 00:00: 23:59 3D (300 mg Medical capsule 00 :00 total) by Center mouth 3 (three) times daily for 90 days. atorvastati 2021-0 2021- No 80mg QD Take [address] [facility] n (LIPITOR) 2-18 tablet (80 [facility] 80 MG 00:00: 23:59 mg total) Medica l tablet 00 :00 by mouth Center nightly for 90 days. metFORMIN 2021-2021- No 1000mg Take [address] [facility] (GLUCOPHAGE 2-17 05-18 tablet [facility] ) 1000 MG 00:00: 23:59 (1,000 mg Me dical tablet 00 :00 total) by Center mouth 2 (two) times daily with breakfast and dinner for 90 days. aspirin 81 2021-2021- No 81mg QD Take [address] [facility] MG chewable 2-17 05-18 tablet (81 [facility] tablet 00:00: 23:59 mg total) Medic al 00 :00 by mouth Center daily for 90 days. gabapentin 2021-0 2021- No 300mg Q.[id number] Take [address] [facility] (NEURONTIN) 2-17 05-18 [id number] capsule [facility] 300 MG 00:00: 23:59 3D (300 mg Medical capsule 00 :00 total) by Center mouth 3 (three) times daily for 90 days. atorvastati 2021-0 2021- No 80mg QD Take [address] [facility] n (LIPITOR) 2-17 05-18 tablet (80 [facility] 80 MG 00:00: 23:59 mg total) Medica l tablet 00 :00 by mouth Center nightly for 90 days. metFORMIN 2021-2021- No 1000mg Take [address] [facility] (GLUCOPHAGE 2-17 05-18 tablet [facility] ) 1000 MG 00:00: 23:59 (1,000 mg Me dical tablet 00 :00 total) by Center mouth 2 (two) times daily with breakfast and dinner for 90 days. aspirin 81 2021-2021- No 81mg QD Take [address] [facility] MG chewable 2-17 05-18 tablet (81 [facility] tablet 00:00: 23:59 mg total) Medic al 00 :00 by mouth Center daily for 90 days. gabapentin 2021-2021- No 300mg Q.[id number] Take [address] [facility] (NEURONTIN) 2 05-18 [id number] capsule [facility] 300 MG 00:00: 23:59 3D (300 mg Medical capsule 00 :00 total) by Center mouth 3 (three) times daily for 90 days. atorvastati 2021-0 2021- No 80mg QD Take [address] [facility] n (LIPITOR) 2-17 05-18 tablet (80 [facility] 80 MG 00:00: 23:59 mg total) Medica l tablet 00 :00 by mouth Center nightly for 90 days. metFORMIN 2021-0 2021- No 1000mg Take [address] [facility] (GLUCOPHAGE 2-17 05-18 tablet [facility] ) 1000 MG 00:00: 23:59 (1,000 mg Me dical tablet 00 :00 total) by Center mouth 2 (two) times daily with breakfast and dinner for 90 days. aspirin 81 2021- No 81mg QD Take [address] [facility] MG chewable 08-04-18 tablet (81 [facility] tablet 00:00: 23:59 mg total) Medic al 00 :00 by mouth Center daily for 90 days. gabapentin 2021- No 300mg Q.[id number] Take [address] [facility] (NEURONTIN) 08-04-18 [id number] capsule [facility] 300 MG 00:00: 23:59 3D (300 mg Medical capsule 00 :00 total) by Center mouth 3 (three) times daily for 90 days. atorvastati 2021- No 80mg QD Take [address] [facility] n (LIPITOR) 08-04-18 tablet (80 [facility] 80 MG 00:00: 23:59 mg total) Medica l tablet 00 :00 by mouth Center nightly for 90 days. polyethylen 2021- No 17g Take [address] [facility] e glycol -17 -03 by mouth [facility] (GLYCOLAX) 00:00: 23:59 daily as Me dical 17 gram 00 :00 needed Center packet (Constipat ion) for up to 14 days. senna-docus 2021- No 1{tbl} QD Take [address] ate 08-04-03 tablet by [facility] (SENOKOT S) 00:00: 23:59 mouth Medi casey 8.6-50 mg 00 :00 daily for Cente r per tablet 14 days. polyethylen 2021- No 17g Take [address] [facility] e glycol -17 -03 by mouth [facility] (GLYCOLAX) 00:00: 23:59 daily as Me dical 17 gram 00 :00 needed Center packet (Constipat ion) for up to 14 days. senna-docus 2021- No 1{tbl} QD Take [address] ate 2-01 09-03 tablet by [facility] (SENOKOT S) 00:00: 23:59 mouth Medi casey 8.6-50 mg 00 :00 daily for Cente r per tablet 14 days. polyethylen 2021- No 17g Take [address] [facility] e glycol 2-17 03-03 by mouth [facility] (GLYCOLAX) 00:00: 23:59 daily as Me dical 17 gram 00 :00 needed Center packet (Constipat ion) for up to 14 days. senna-docus 2021- No 1{tbl} QD Take [address] ate 2-17 03-03 tablet by [facility] (SENOKOT S) 00:00: 23:59 mouth Medi casey 8.6-50 mg 00 :00 daily for Cente r per tablet 14 days. polyethylen 2021- No 17g Take [address] [facility] e glycol 2-17 03-03 by mouth [facility] (GLYCOLAX) 00:00: 23:59 daily as Me dical 17 gram 00 :00 needed Center packet (Constipat ion) for up to 14 days. senna-docus 2021- No 1{tbl} QD Take [address] ate 2-17 03-03 tablet by [facility] (SENOKOT S) 00:00: 23:59 mouth Medi casey 8.6-50 mg 00 :00 daily for Cente r per tablet 14 days. polyethylen 2021- No 17g Take [address] [facility] e glycol 2-17 03-03 by mouth [facility] (GLYCOLAX) 00:00: 23:59 daily as Me dical 17 gram 00 :00 needed Center packet (Constipat ion) for up to 14 days. senna-docus 2021- No 1{tbl} QD Take [address] ate 2-17 03-03 tablet by [facility] (SENOKOT S) 00:00: 23:59 mouth Medi casey 8.6-50 mg 00 :00 daily for Cente r per tablet 14 days. polyethylen 2021- No 17g Take [address] [facility] e glycol 2-17 03-03 by mouth [facility] (GLYCOLAX) 00:00: 23:59 daily as Me dical 17 gram 00 :00 needed Center packet (Constipat ion) for up to 14 days. senna-docus 2021- No 1{tbl} QD Take [address] ate 2-17 03-03 tablet by [facility] (SENOKOT S) 00:00: 23:59 mouth Medi casey 8.6-50 mg 00 :00 daily for Cente r per tablet 14 days. HYDROcodone 2021- No 1{tbl} Take [address] -acetaminop 2-17 02-27 tablet by Laurita sepulveda ([facility]CO 00:00: 23:59 mouth Medic al 10-325) 00 :00 every 6 Center 10-325 mg (six) per tablet hours as needed for Pain for up to 10 days. Max Daily Amount: 4 tablets HYDROcodone 2021- No 1{tbl} Take [address] -acetaminop 2-17 02-27 tablet by [facility]ita sepulveda ([facility] 00:00: 23:59 mouth Medic al 10-325) 00 :00 every 6 Center 10-325 mg (six) per tablet hours as needed for Pain for up to 10 days. Max Daily Amount: 4 tablets HYDROcodone 2021- No 1{tbl} Take [address] -acetaminop 2-17 02-27 tablet by [facility]ita sepulveda ([place] 00:00: 23:59 mouth Medic al 10-325) 00 :00 every 6 Center 10-325 mg (six) per tablet hours as needed for Pain for up to 10 days. Max Daily Amount: 4 tablets HYDROcodone 2021- No 1{tbl} Take [address] -acetaminop 2-17 02-27 tablet by [facility]ita sepulveda ([facility] 00:00: 23:59 mouth Medic al 10-325) 00 :00 every 6 Center 10-325 mg (six) per tablet hours as needed for Pain for up to 10 days. Max Daily Amount: 4 tablets HYDROcodone 2021- No 1{tbl} Take [address] -acetaminop 2-17 02-27 tablet by [facility]ita sepulveda ([facility] 00:00: 23:59 mouth Medic al 10-325) 00 :00 every 6 Center 10-325 mg (six) per tablet hours as needed for Pain for up to 10 days. Max Daily Amount: 4 tablets HYDROcodone 2021- No 1{tbl} Take [address] -acetaminop 2-17 02-27 tablet by [facility]ita sepulveda ([facility] 00:00: 23:59 mouth Medic al 10-325) 00 :00 every 6 Center 10-325 mg (six) per tablet hours as needed for Pain for up to 10 days. Max Daily Amount: 4 tablets glipiZIDE 2021- No 10mg QD Take [facility] ([facility]UC[facility] 2-17 02-17 tablet (10 Laurita kes XL) 10 MG 00:00: 00:00 mg total) Me dical 24 hr 00 :00 by mouth Center tablet daily for 90 days. glipiZIDE 2021- No 10mg QD Take 1 [facility] (GLUCOT[facility]OL 2-17 02-17 tablet (10 [facility]ita kes XL) 10 MG 00:00: 00:00 mg total) Me dical 24 hr 00 :00 by mouth Center tablet daily for 90 days. glipiZIDE 2021- No 10mg QD Take 1 [facility] (GLUCOT[facility]OL 2-17 02-17 tablet (10 [facility] kes XL) 10 MG 00:00: 00:00 mg total) Me dical 24 hr 00 :00 by mouth Center tablet daily for 90 days. glipiZIDE 2021- No 10mg QD Take 1 [facility] (GLUCOT[facility]OL 2-17 02-17 tablet (10 [facility] kes XL) 10 MG 00:00: 00:00 mg total) Me dical 24 hr 00 :00 by mouth Center tablet daily for 90 days. glipiZIDE 2021- No 10mg QD Take 1 [facility] (GLUC[facility]OL 2-17 02-17 tablet (10 [facility] kes XL) 10 MG 00:00: 00:00 mg total) Me dical 24 hr 00 :00 by mouth Center tablet daily for 90 days. glipiZIDE 2021- No 10mg QD Take 1 [facility] ([facility]UC[facility]OL 2-17 02-17 tablet (10 [facility] kes XL) 10 MG 00:00: 00:00 mg total) Me dical 24 hr 00 :00 by mouth Center tablet daily for 90 days. Missing or 2021- No . [facility] 02:[facility]: [facility]:00 [facility] Medication 17 :00 Center Missing or 2021- No . [facility] 02:05: 00:00 Medical Medication 17 :00 Center Missing or 2022-0 2022- No . [facility] 02:[facility] 00:00 Medical Medication 17 :00 Center Missing or 2022-0 2022- No . [facility] 02:05: 00:00 Medical Medication 17 :00 Center Missing or 2022-0 2022- No . [facility] 02:05: 00:00 Medical Medication 17 :00 Center Missing or 2022-0 2022- No . [facility] 02:05: 00:00 Medical Medication 17 :00 Center sulfamethox 1-0 No 1mg azole 800 7-12 mg-trimetho 00:00: prim 160 mg 00 tablet amoxicillin 1-0 No 1mg 875 7-12 mg-potassiu 00:00: m 00 clavulanate 125 mg tablet ibuprofen 1-0 No 1mg 600 mg 7-12 tablet 00:00: 00 sulfamethox 1-0 No 1mg azole 800 7-12 mg-trimetho 00:00: prim 160 mg 00 tablet sulfamethox 1-0 No 1mg azole 800 7-12 mg-trimetho 00:00: prim 160 mg 00 tablet amoxicillin 1-0 No 1mg 875 7-12 mg-potassiu 00:00: m 00 clavulanate 125 mg tablet ibuprofen 1-0 No 1mg 600 mg 7-12 tablet 00:00: 00 amoxicillin 1-0 No 1mg 875 7-12 mg-potassiu 00:00: m 00 clavulanate 125 mg tablet ibuprofen 1-0 No 1mg 600 mg 7-12 tablet 00:00: 00 traMADoL 50 1-0 Yes [id number] 50mg Take 1 [facility] mg tablet 5-10 tablet by [facility] o f 00:00: mouth [place] 00 every 6 Medical (six) Branch hours as needed for Pain (scale 7-10). Indication s: acute pain traMADoL 50 1-0 Yes 4647 50mg Take 1 [facility] mg tablet 5-10 tablet by ity o f 00:00: mouth [place] 00 every 6 Medical (six) Branch hours as needed for Pain (scale 7-10). Indication s: acute pain traMADoL 50 2020-0 Yes 4647 50mg Take 1 [facility] mg tablet 5-10 tablet by ity o f 00:00: mouth [place] 00 every 6 Medical (six) Branch hours as needed for Pain (scale 7-10). Indication s: acute pain traMADoL 50 2020-0 Yes 4647 50mg Take 1 [facility] mg tablet 5-10 tablet by ity o f 00:00: mouth [place] 00 every 6 Medical (six) Branch hours as needed for Pain (scale 7-10). Indication s: acute pain Missing or Yes . [facility]16 [facility] 17:17: Medical Medication 54 Center lisinopriL 2020- No 5mg QD Take [address] [facility] (PRINIVIL,Z 02-16 tablet (5 Laurita kes ESTRIL) 5 00:00: 23:59 mg total) Me dical MG tablet 00 :00 by mouth Center daily. ferrous 2020- No 325mg QD Take [address] [facility] sulfate 325 02-16 tablet [facility] (65 FE) MG 00:00: 23:59 (325 mg Med ical tablet 00 :00 total) by Center mouth daily. sodium Yes 1{appli QD Apply 1 [facility] hypochlorit 8-12 cation} applicatio [facility] (DAKIN'S 00:00: n Medical SOLUTION) 00 topically Cente r 0.25 % daily. external solution sodium 2021- No 1{appli QD Apply [address] [facility] hypochlorit 8-12 -16 cation} applicatio [facility] (DAKIN'S 00:00: 00:00 n Medica l SOLUTION) 00 :00 topically Cente r 0.25 % daily. external solution sodium 2021- No 1{appli QD Apply [address] [facility] hypochlorit 8-12 02-16 cation} applicatio [facility] (DAKIN'S 00:00: 00:00 n Medica l SOLUTION) 00 :00 topically Cente r 0.25 % daily. external solution sodium 2021- No 1{appli QD Apply [address] [facility] hypochlorit 8-12 02-16 cation} applicatio [facility] (DAKIN'S 00:00: 00:00 n Medica l SOLUTION) 00 :00 topically Cente r 0.25 % daily. external solution sodium 2021- No 1{appli QD Apply [address] [facility] hypochlorit 8-12 -16 cation} applicatio [facility] (DAKIN'S 00:00: 00:00 n Medica l SOLUTION) 00 :00 topically Cente r 0.25 % daily. external solution sodium 2021- No 1{appli QD Apply [address] [facility] hypochlorit 8-12 -16 cation} applicatio [facility] (DAKIN'S 00:00: 00:00 n Medica l SOLUTION) 00 :00 topically Cente r 0.25 % daily. external solution sodium 2021- No 1{appli QD Apply [address] [facility] hypochlorit 8-12 -16 cation} applicatio [facility] (DAKIN'S 00:00: 00:00 n Medica l SOLUTION) 00 :00 topically Cente r 0.25 % daily. external solution aspirin 81 2019- Yes 81mg QD Take 1 [facility] chewable 7-15 tablet (81 Laurita kes tablet 00:00: mg total) Medica l 00 by mouth Center daily. aspirin 81 2021- No 81mg QD Take [address] [facility] MG chewable 7-15 02-17 tablet (81 [facility] tablet 00:00: 00:00 mg total) Medic al 00 :00 by mouth Center daily. aspirin 81 2021- No 81mg QD Take [address] [facility] MG chewable 7-15 02-17 tablet (81 [facility] tablet 00:00: 00:00 mg total) Medic al 00 :00 by mouth Center daily. aspirin 81 2019-2021- No 81mg QD Take [address] [facility] MG chewable 7-15 02-17 tablet (81 [facility] tablet 00:00: 00:00 mg total) Medic al 00 :00 by mouth Center daily. aspirin 81 2021- No 81mg QD Take [address] [facility] MG chewable 7-15 02-17 tablet (81 [facility] tablet 00:00: 00:00 mg total) Medic al 00 :00 by mouth Center daily. aspirin 81 2021- No 81mg QD Take [address] [facility] MG chewable 7-15 -17 tablet (81 [facility] tablet 00:00: 00:00 mg total) Medic al 00 :00 by mouth Center daily. aspirin 81 2020-0 2021- No 81mg QD Take [address] [facility] MG chewable 7-15 02-17 tablet (81 [facility] tablet 00:00: 00:00 mg total) Medic al 00 :00 by mouth Center daily. multivitami 2020-0 2020- No 1{tbl} QD Take [address] n -02-28 tablet by [facility] (THERAGRAN) 00:00: 23:59 mouth Medi casey tablet 00 :00 daily for Center 60 days. zinc 2020-0 2020- No 220mg QD Take [address] [facility] sulfate 12-30 capsule [facility] (ZINCATE) 00:00: 23:59 (220 mg Medi casey 220 (50) mg 00 :00 total) by [facility] capsule mouth daily for 60 days. atorvastati 2020-0 Yes 80mg QD Take [address] [facility] n (LIPITOR) 7-14 tablet (80 Laurita kes 80 MG 00:00: mg total) Medical tablet 00 by mouth Center nightly. docusate 2020-0 Yes 100mg Take [address] [facility] sodium 7-14 capsule [facility] (COLACE) 00:00: (100 mg Medica l 100 MG 00 total) by Center capsule mouth daily as needed for Constipati on. insulin 2020-0 Yes 7U QD Inject [address] [facility] glargine 7-14 Units [facility] (LANTUS) 00:00: subcutaneo Med ical 100 unit/mL 00 ly Center injection nightly Use as directed . insulin 2020-0 Yes 6U inject 6 [facility] glargine 7-14 Units [facility]y of 100 unit/mL 00:00: [place] injection 00 skin Medical daily. At Branch night insulin 2020-0 Yes 6U inject 6 [facility] glargine 7-14 Units ity of 100 unit/mL 00:00: [place] injection 00 skin Medical daily. At Branch night insulin 2020-0 Yes 6U inject 6 [facility] glargine 7-14 Units ity of 100 unit/mL 00:00: [place] the [place] injection 00 skin Medical daily. At Branch night atorvastati 2021- No 80mg QD Take [address] [facility] n (LIPITOR) 12-29 tablet (80 L [facility] 80 MG 00:00: 00:00 mg total) Medica l tablet 00 :00 by mouth Center nightly. atorvastati No 80mg QD Take [address] [facility] n (LIPITOR) 12-29 tablet (80 L u[facility] 80 MG 00:00: 00:00 mg total) Medica l tablet 00 :00 by mouth Center nightly. atorvastati No 80mg QD Take [address] [facility] n (LIPITOR) 12-29 tablet (80 L [facility] 80 MG 00:00: 00:00 mg total) Medica l tablet 00 :00 by mouth Center nightly. atorvastati No 80mg QD Take [address] [facility] n (LIPITOR) 12-29 tablet (80 L [facility] 80 MG 00:00: 00:00 mg total) Medica l tablet 00 :00 by mouth Center nightly. atorvastati No 80mg QD Take [address] [facility] n (LIPITOR) 12-29 tablet (80 L [facility] 80 MG 00:00: 00:00 mg total) Medica l tablet 00 :00 by mouth Center nightly. atorvastati No 80mg QD Take [address] [facility] n (LIPITOR) 12-29 tablet (80 L [facility] 80 MG 00:00: 00:00 mg total) Medica l tablet 00 :00 by mouth Center nightly. docusate No 100mg Take 1 [facility] sodium 12-29 capsule [facility] (COLACE) 00:00: 00:00 (100 mg Medic al 100 MG 00 :00 total) by Center capsule mouth daily as needed for Constipati on. insulin 2021- No 7U QD Inject 7 [facility] glargine 12-29 [facility] (LANTUS) 00:00: 00:00 subcutaneo Me dical 100 unit/mL 00 :00 usly Center injection nightly Use as directed . docusate 2020-0 2022- No 100mg Take 1 [facility] sodium 7-14 02-16 capsule [facility] (COLACE) 00:00: 00:00 (100 mg Medic al 100 MG 00 :00 total) by Center capsule mouth daily as needed for Constipati on. insulin No 7U QD Inject 7 [facility] glargine 7-14 02-16 [facility] (LANTUS) 00:00: 00:00 subcutaneo Me dical 100 unit/mL 00 :00 usly Center injection nightly Use as directed . docusate 2021- No 100mg Take 1 [facility] sodium 7-14 02-16 capsule [facility] (COLACE) 00:00: 00:00 (100 mg Medic al 100 MG 00 :00 total) by Center capsule mouth daily as needed for Constipati on. insulin No 7U QD Inject 7 [facility] glargine 7-14 02-16 [facility] (LANTUS) 00:00: 00:00 subcutaneo Me dical 100 unit/mL 00 :00 usly Center injection nightly Use as directed . docusate No 100mg Take 1 [facility] sodium 7-14 02-16 capsule [facility] (COLACE) 00:00: 00:00 (100 mg Medic al 100 MG 00 :00 total) by Center capsule mouth daily as needed for Constipati on. insulin No 7U QD Inject 7 [facility] glargine 7-14 02-16 Units [facility] (LANTUS) 00:00: 00:00 subcutaneo Me dical 100 unit/mL 00 :00 usly Center injection nightly Use as directed . docusate No 100mg Take 1 [facility] sodium 7-14 02-16 capsule [facility] (COLACE) 00:00: 00:00 (100 mg Medic al 100 MG 00 :00 total) by Center capsule mouth daily as needed for Constipati on. insulin No 7U QD Inject 7 [facility] glargine 7-14 02-16 Units [facility] (LANTUS) 00:00: 00:00 subcutaneo Me dical 100 unit/mL 00 :00 usly Center injection nightly Use as directed . docusate 2021- No 100mg Take 1 [facility] sodium 12-29 capsule [facility] (COLACE) 00:00: 00:00 (100 mg Medic al 100 MG 00 :00 total) by Center capsule mouth daily as needed for Constipati on. insulin 2021- No 7U QD Inject 7 [facility] glargine 12-2916 Units [facility] (LANTUS) 00:00: 00:00 subcutaneo Me dical 100 unit/mL 00 :00 usly Center injection nightly Use as directed . ascorbic 2019- No 500mg Q.5D Take 1 [facility] acid, 12-29 tablet [facility] vitamin C, 00:00: 23:59 (500 mg Med ical (VITAMIN C) 00 :00 total) by [facility] ter 500 MG mouth 2 tablet (two) times daily for 60 days. gabapentin 2019- No 300mg [id number] Take [address] [facility] (NEURONTIN) 12-29 [id number] capsule [facility] 300 MG 00:00: 23:59 3D (300 mg Medical capsule 00 :00 total) by Center mouth 3 (three) times daily for 60 days. melatonin 3 2019- No 3mg QD Take [address] [facility] mg Tab 12-29 tablet (3 [facility] tablet 00:00: 23:59 mg total) Medic al 00 :00 by mouth Center nightly for 60 days. metFORMIN 2019- No 500mg Take [address] [facility] (GLUCOPHAGE 12-29 tablet [facility] ) 500 MG 00:00: 23:59 (500 mg Medic al tablet 00 :00 total) by Center mouth 2 (two) times daily with breakfast and dinner for 60 days. ticagrelor 2019- No 90mg Q.5D Take [address] [facility] (BRILINTA) 12-29 tablet (90 Laurita kes 90 mg Tab 00:00: 23:59 mg total) Me dical tablet 00 :00 by mouth 2 Center (two) times daily for 60 days. collagenase 2019- Yes 1{appli QD Apply [address] [facility] (SANTYL) 5-21 cation} applicatio Laurita kes 250 units/g 00:00: n Medica l ointment 00 topically Center daily Apply sergio thick amount to wound daily. collagenase 2021- No 1{appli QD Apply [address] [facility] (SANTYL) 11-05-16 cation} applicatio L ukes 250 units/g 00:00: 00:00 n Medic al ointment 00 :00 topically Center daily Apply sergio thick amount to wound daily. collagenase 2021- No 1{appli QD Apply [address] [facility] (SANTYL) 11-05- cation} applicatio L ukes 250 units/g 00:00: 00:00 n Medic al ointment 00 :00 topically Center daily Apply sergio thick amount to wound daily. collagenase 2021- No 1{appli QD Apply [address] [facility] (SANTYL) 11-05 cation} applicatio L ukes 250 units/g 00:00: 00:00 n Medic al ointment 00 :00 topically Center daily Apply sergio thick amount to wound daily. collagenase 2021- No 1{appli QD Apply [address] [facility] (SANTYL) 11-05-16 cation} applicatio L ukes 250 units/g 00:00: 00:00 n Medic al ointment 00 :00 topically Center daily Apply sergio thick amount to wound daily. collagenase 2021- No 1{appli QD Apply [address] [facility] (SANTYL) 11-05-16 cation} applicatio L ukes 250 units/g 00:00: 00:00 n Medic al ointment 00 :00 topically Center daily Apply sergio thick amount to wound daily. collagenase 2021- No 1{appli QD Apply [address] [facility] (SANTYL) 11-05-16 cation} applicatio L ukes 250 units/g 00:00: 00:00 n Medic al ointment 00 :00 topically Center daily Apply sergio thick amount to wound daily. traMADoL 2019- Yes 1{tbl} Take 1 [facility] (ULTRAM) 50 5-18 tablet by Mery es mg tablet 00:00: mouth Medical 00 every 6 Center (six) hours as needed for Pain. traMADoL 2021- No 1{tbl} Take [address] [facility] (ULTRAM) 50 5-18 02-16 tablet by Laurita kes mg tablet 00:00: 00:00 mouth Medica l 00 :00 every 6 Center (six) hours as needed for Pain. traMADoL 2021- No 1{tbl} Take [address] [facility] (ULTRAM) 50 5-18 02-16 tablet by Laurita kes mg tablet 00:00: 00:00 mouth Medica l 00 :00 every 6 Center (six) hours as needed for Pain. traMADoL 2021- No 1{tbl} Take [address] [facility] (ULTRAM) 50 5-18 02-16 tablet by Laurita kes mg tablet 00:00: 00:00 mouth Medica l 00 :00 every 6 Center (six) hours as needed for Pain. traMADoL 2021- No 1{tbl} Take [address] [facility] (ULTRAM) 50 5-18 02-16 tablet by Laurita kes mg tablet 00:00: 00:00 mouth Medica l 00 :00 every 6 Center (six) hours as needed for Pain. traMADoL 2021- No 1{tbl} Take [address] [facility] (ULTRAM) 50 5-18 02-16 tablet by Laurita kes mg tablet 00:00: 00:00 mouth Medica l 00 :00 every 6 Center (six) hours as needed for Pain. traMADoL 2021- No 1{tbl} Take [address] [facility] (ULTRAM) 50 5-18 02-16 tablet by Laurita kes mg tablet 00:00: 00:00 mouth Medica l 00 :00 every 6 Center (six) hours as needed for Pain. clopidogreL 2019- Yes 75mg QD Take [address] [facility] (PLAVIX) 75 5-06 by mouth Luke s mg tablet 00:00: daily. Medica l 00 Center pantoprazol 2019-0 Yes 40mg QD Take [address] [facility] e 5-06 by mouth [facility] (PROTONIX) 00:00: daily. Medic al 40 MG 00 Center tablet polyethylen 2019-0 Yes 17g Take [address] [facility] e glycol 5-06 by mouth [facility] (GLYCOLAX) 00:00: daily as Med ical 17 gram 00 needed for Center packet Constipati on. psyllium 2019- Yes 1{packe QD Take [address] [facility] (METAMUCIL 5-06 t} packet by Luke s FIBER 00:00: mouth Medical SINGLES) 00 daily. Center 3.4 gram packet aspirin 81 2020-0 Yes [id number] 81mg Take 1 Un melissa mg chewable 5-06 tablet by ity of tablet 00:00: mouth [place] 00 daily. Medical Branch clopidogreL 2020-0 Yes [id number] 75mg Take 1 [facility] 75 mg 5-06 tablet by ity of tablet 00:00: mouth [place] 00 daily. Medical Branch psyllium 2020-0 Yes [id number] 1{packe Take 1 [facility] 3.4 gram 5-06 9107 t} Packet by ity of packet 00:00: mouth [place] 00 daily. Medical Branch Polyethylen 2020-0 Yes [id number] 17g Take 1 [facility] e Glycol 5-06 9107 Packet by ity of 3350 17 00:00: mouth [place] gram powder 00 daily. Medica l Branch pantoprazol 2020-0 Yes [id number] 40mg Take 1 [facility] e 40 mg EC 5-06 9107 tablet by ity of tablet 00:00: mouth [place] 00 daily. Medical Branch aspirin 81 2020-0 Yes [id number] 81mg Take 1 Un melissa mg chewable 5-06 tablet by ity of tablet 00:00: mouth [place] 00 daily. Medical Branch clopidogreL 2020-0 Yes [id number] 75mg Take 1 [facility] 75 mg 5-06 tablet by ity of tablet 00:00: mouth [place] 00 daily. Medical Branch psyllium 2020-0 Yes [id number] 1{packe Take 1 Univers 3.4 gram 5-06 9107 t} Packet by ity of packet 00:00: mouth [place] 00 daily. Medical Branch Polyethylen 2020-0 Yes [id number] 17g Take 1 [facility] e Glycol 5-06 9107 Packet by ity of 3350 17 00:00: mouth [place] gram powder 00 daily. Medica l Branch pantoprazol 2020-0 Yes [id number] 40mg Take 1 [facility] e 40 mg EC 5-06 9107 tablet by ity of tablet 00:00: mouth [place] 00 daily. Medical Branch aspirin 81 2020-0 Yes [id number] 81mg Take 1 Un melissa mg chewable 5-06 tablet by ity of tablet 00:00: mouth [place] 00 daily. Medical Branch clopidogreL 2020-0 Yes [id number] 75mg Take 1 [facility] 75 mg 5-06 tablet by ity of tablet 00:00: mouth [place] 00 daily. Medical Branch psyllium 2020-0 Yes [id number] 1{packe Take 1 [facility] 3.4 gram 5-06 9107 t} Packet by ity of packet 00:00: mouth [place] 00 daily. Medical Branch Polyethylen 2020-0 Yes [id number] 17g Take 1 [facility] e Glycol 5-06 9107 Packet by ity of 3350 17 00:00: mouth [place] gram powder 00 daily. Medica l Branch pantoprazol 2019-0 Yes [id number] 40mg Take 1 [facility] e 40 mg EC 5-06 9107 tablet by ity of tablet 00:00: mouth [place] 00 daily. Medical Branch aspirin 81 2020-0 Yes [id number] 81mg Take 1 Un melissa mg chewable 5-06 tablet by ity of tablet 00:00: mouth [place] 00 daily. Medical Branch clopidogreL 2019-0 Yes [id number] 75mg Take 1 [facility] 75 mg 5-06 tablet by ity of tablet 00:00: mouth [place] 00 daily. Medical Branch psyllium 2020-0 Yes [id number] 1{packe Take 1 [facility] 3.4 gram 5-06 9107 t} Packet by ity of packet 00:00: mouth [place] 00 daily. Medical Branch Polyethylen 2019-0 Yes [id number] 17g Take 1 [facility] e Glycol 5-06 9107 Packet by ity of 3350 17 00:00: mouth [place] gram [facility]0 Yes [id number] 40mg Take 1 Univers e 40 mg EC 5-06 9107 tablet by ity of tablet 00:00: mouth [place] 00 daily. Medical Branch clopidogreL 2019-0 2021- No 75mg QD Take [address] [facility] (PLAVIX) 75 10-21-16 by mouth Mery es mg tablet 00:00: 00:00 daily. Medic al 00 :00 Center pantoprazol 2019-0 2021- No 40mg QD Take [address] [facility] e -11 17-16 by mouth [facility] (PROTONIX) 00:00: 00:00 daily. Medi casey 40 MG 00 :00 Center tablet polyethylen 2019-0 2021- No 17g Take [address] [facility] e glycol -11 17-16 by mouth [facility] (GLYCOLAX) 00:00: 00:00 daily as Me dical 17 gram 00 :00 needed for Center packet Constipati on. psyllium 2021- No 1{packe QD Take [address] [facility] (METAMUCIL 5-06 02-16 t} packet by Mery es FIBER 00:00: 00:00 mouth Medical SINGLES) 00 :00 daily. Center 3.4 gram packet clopidogreL 2021- No 75mg QD Take [address] [facility] (PLAVIX) 75 5-06 02-16 by mouth Mery es mg tablet 00:00: 00:00 daily. Medic al 00 :00 Center pantoprazol 2021- No 40mg QD Take [address] [facility] e 5-06 02-16 by mouth [facility] (PROTONIX) 00:00: 00:00 daily. Medi casey 40 MG 00 :00 Center tablet polyethylen 2021- No 17g Take [address] [facility] e glycol 5- 02-16 by mouth [facility] (GLYCOLAX) 00:00: 00:00 daily as Me dical 17 gram 00 :00 needed for Center packet Constipati on. psyllium 2021- No 1{packe QD Take [address] [facility] (METAMUCIL 5-06 02-16 t} packet by Mery es FIBER 00:00: 00:00 mouth Medical SINGLES) 00 :00 daily. Center 3.4 gram packet clopidogreL 2021- No 75mg QD Take [address] [facility] (PLAVIX) 75 5-06 02-16 by mouth Mery es mg tablet 00:00: 00:00 daily. Medic al 00 :00 Center pantoprazol 2021- No 40mg QD Take [address] [facility] e 5-06 02-16 by mouth [facility] (PROTONIX) 00:00: 00:00 daily. Medi casey 40 MG 00 :00 Center tablet polyethylen 2021- No 17g Take [address] [facility] e glycol 5-06 02-16 by mouth [facility] (GLYCOLAX) 00:00: 00:00 daily as Me dical 17 gram 00 :00 needed for Center packet Constipati on. psyllium 2021- No 1{packe QD Take [address] [facility] (METAMUCIL 5-06 02-16 t} packet by Mery es FIBER 00:00: 00:00 mouth Medical SINGLES) 00 :00 daily. Center 3.4 gram packet clopidogreL 2019-2021- No 75mg QD Take [address] [facility] (PLAVIX) 75 5- 02-16 by mouth Mery es mg tablet 00:00: 00:00 daily. Medic al 00 :00 Center pantoprazol 2019-2021- No 40mg QD Take [address] [facility] e 5- 02-16 by mouth [facility] (PROTONIX) 00:00: 00:00 daily. Medi casey 40 MG 00 :00 Center tablet polyethylen 2019-2021- No 17g Take [address] [facility] e glycol - 02-16 by mouth [facility] (GLYCOLAX) 00:00: 00:00 daily as Me dical 17 gram 00 :00 needed for Center packet Constipati on. psyllium 2019-2021- No 1{packe QD Take [address] [facility] (METAMUCIL 5-06 02-16 t} packet by Mery es FIBER 00:00: 00:00 mouth Medical SINGLES) 00 :00 daily. Center 3.4 gram packet clopidogreL 2021- No 75mg QD Take [address] [facility] (PLAVIX) 75 5- 02-16 by mouth Mery es mg tablet 00:00: 00:00 daily. Medic al 00 :00 Center pantoprazol 2021- No 40mg QD Take [address] [facility] e 5 02-16 by mouth [facility] (PROTONIX) 00:00: 00:00 daily. Medi casey 40 MG 00 :00 Center tablet polyethylen 2021- No 17g Take [address] [facility] e glycol 10-21 02-16 by mouth [facility] (GLYCOLAX) 00:00: 00:00 daily as Me dical 17 gram 00 :00 needed for Center packet Constipati on. psyllium 2019-0 2021- No 1{packe QD Take [address] [facility] (METAMUCIL 5-06 02-16 t} packet by Mery es FIBER 00:00: 00:00 mouth Medical SINGLES) 00 :00 daily. Center 3.4 gram packet clopidogreL 0 2021- No 75mg QD Take [address] [facility] (PLAVIX) 75 5-06 02-16 by mouth Mery es mg tablet 00:00: 00:00 daily. Medic al 00 :00 Center pantoprazol 2019-0 2021- No 40mg QD Take [address] [facility] e 10-2116 by mouth [facility] (PROTONIX) 00:00: 00:00 daily. Medi casey 40 MG 00 :00 Center tablet polyethylen No 17g Take [address] [facility] e glycol 10-21 by mouth [facility] (GLYCOLAX) 00:00: 00:00 daily as Me dical 17 gram 00 :00 needed for Center packet Constipati on. psyllium 2021- No 1{packe QD Take [address] [facility] (METAMUCIL 10-21 t} packet by Mery es FIBER 00:00: 00:00 mouth Medical SINGLES) 00 :00 daily. Center 3.4 gram packet glipiZIDE Yes 10mg QD Take [address] [facility] [address] [facility] (GLUCOTROL 5-05 by mouth [facility] XL) 10 MG 00:00: daily. Medica l 24 hr 00 Center tablet HYDROcodone 2019-0 Yes 1{tbl} Take [address] [facility] -acetaminop 5-05 tablet by Mery es hen (NORCO 00:00: mouth Medica l 5-325) 00 every 6 Center 5-325 mg (six) per tablet hours as needed for Pain. glipiZIDE 0 Yes [id number] 10mg Take 1 [facility] nivers XL 10 mg 24 5-05 tablet by ity of hr tablet 00:00: mouth 2 [place] 00 (two) Medical times Branch daily before breakfast and dinner. atorvastati 2019-0 Yes [id number] 40mg Take 1 U nivers n 40 mg 5-05 tablet by ity of tablet 00:00: mouth at [place] 00 bedtime. Medical Branch HYDROcodone 2019-0 Yes [id number] 1{tbl} Take 1 [facility] -acetaminop 5-05 tablet by ity of hen 5-325 00:00: mouth [place] mg tablet 00 every 6 Medical (six) Branch hours as needed (right foot pain). HYDROcodone 2019-0 Yes [id number] 1{tbl} Take 1 [facility] -acetaminop 5-05 tablet by ity of hen 5-325 00:00: mouth [place] mg tablet 00 every 8 Medical (eight) Branch hours as needed for Pain (scale 7-10). glipiZIDE 2019-0 Yes [id number] 10mg Take 1 [facility]ivers XL 10 mg 24 5-05 tablet by ity of hr tablet 00:00: mouth 2 (two) Medical times Branch daily before breakfast and dinner. atorvastati 2020-0 Yes [id number] 40mg Take 1 U nivers n 40 mg 5-05 tablet by ity of tablet 00:00: mouth at [place] 00 bedtime. Medical Branch HYDROcodone 2020-0 Yes [id number] 1{tbl} Take 1 [facility] -acetaminop 5-05 tablet by ity of hen 5-325 00:00: mouth [place] mg tablet 00 every 6 Medical (six) Branch hours as needed (right foot pain). HYDROcodone 2020-0 Yes [id number] 1{tbl} Take 1 [facility] -acetaminop 5-05 tablet by ity of hen 5-325 00:00: mouth [place] mg tablet 00 every 8 Medical (eight) Branch hours as needed for Pain (scale 7-10). glipiZIDE 2020-0 Yes [id number] 10mg Take 1 [facility]ivers XL 10 mg 24 5-05 tablet by ity of hr tablet 00:00: mouth 2 (two) Medical times Branch daily before breakfast and dinner. atorvastati 2020-0 Yes [id number] 40mg Take 1 [facility] nivers n 40 mg 5-05 tablet by ity of tablet 00:00: mouth at [place] 00 bedtime. Medical Branch HYDROcodone 2020-0 Yes [id number] 1{tbl} Take 1 [facility] -acetaminop 5-05 tablet by ity of hen 5-325 00:00: mouth [place] mg tablet 00 every 6 Medical (six) Branch hours as needed (right foot pain). HYDROcodone 2020-0 Yes [id number] 1{tbl} Take 1 [facility] -acetaminop 5-05 tablet by ity of hen 5-325 00:00: mouth [place] mg tablet 00 every 8 Medical (eight) Branch hours as needed for Pain (scale 7-10). glipiZIDE 2020-0 Yes [id number] 10mg Take 1 [facility] XL 10 mg 24 5-05 tablet by ity of hr tablet 00:00: mouth 2 [place] (two) Medical times Branch daily before breakfast and dinner. atorvastati 2020-0 Yes [id number] 40mg Take 1 [facility] nivers n 40 mg 5-05 tablet by ity of tablet 00:00: mouth at [place] 00 bedtime. Medical Branch HYDROcodone Yes [id number] 1{tbl} Take 1 [facility] -acetaminop 5-05 tablet by ity of hen 5-325 00:00: mouth [place] mg tablet 00 every 6 Medical (six) Branch hours as needed (right foot pain). HYDROcodone Yes [id number] 1{tbl} Take 1 [facility] -acetaminop 5-05 tablet by ity of hen 5-325 00:00: mouth [place] mg tablet 00 every 8 Medical (eight) Branch hours as needed for Pain (scale 7-10). glipiZIDE 2021- No 10mg QD Take [address] (GLUCOTROL 5-05 02-16 by mouth [facility] XL) 10 MG 00:00: 00:00 daily. Medic al 24 hr 00 :00 Center tablet HYDROcodone 2021- No 1{tbl} Take [address] -acetaminop 5-05 02-16 tablet by Laurita kes hen (NORCO 00:00: 00:00 mouth Medic al 5-325) 00 :00 every 6 Center 5-325 mg (six) per tablet hours as needed for Pain. glipiZIDE 2021- No 10mg QD Take [address] (GLUCOTROL 5-05 02-16 by mouth [facility] XL) 10 MG 00:00: 00:00 daily. Medic al 24 hr 00 :00 Center tablet HYDROcodone 2021- No 1{tbl} Take [address] -acetaminop 5-05 02-16 tablet by Laurita kes hen (NORCO 00:00: 00:00 mouth Medic al 5-325) 00 :00 every 6 Center 5-325 mg (six) per tablet hours as needed for Pain. glipiZIDE 2021- No 10mg QD Take [address] (GLUCOTROL 5-05 02-16 by mouth [facility] XL) 10 MG 00:00: 00:00 daily. Medic al 24 hr 00 :00 Center tablet HYDROcodone 2021- No 1{tbl} Take [address] -acetaminop 5-05 02-16 tablet by Laurita kes hen ([facility] 00:00: 00:00 mouth Medic al 5-325) 00 :00 every 6 Center 5-325 mg (six) per tablet hours as needed for Pain. glipiZIDE 0 2021- No 10mg QD Take [address] (GLUCOTROL 5-05 02-16 by mouth [facility] XL) 10 MG 00:00: 00:00 daily. Medic al 24 hr 00 :00 Center tablet HYDROcodone 2019-2021- No 1{tbl} Take [address] -acetaminop 5-05 02-16 tablet by Laurita al hen ([facility] 00:00: 00:00 mouth Medic al 5-325) 00 :00 every 6 Center 5-325 mg (six) per tablet hours as needed for Pain. glipiZIDE 2021- No 10mg QD Take [address] (GLUCOTROL 5-05 02-16 by mouth [facility] XL) 10 MG 00:00: 00:00 daily. Medic al 24 hr 00 :00 Center tablet HYDROcodone 2019-2021- No 1{tbl} Take [address] -acetaminop 5-05 02-16 tablet by Laurita naiks hen ([facility] 00:00: 00:00 mouth Medic al 5-325) 00 :00 every 6 Center 5-325 mg (six) per tablet hours as needed for Pain. glipiZIDE 2021- No 10mg QD Take [address] (GLUCOTROL 5-05 02-16 by mouth [facility] XL) 10 MG 00:00: 00:00 daily. Medic al 24 hr 00 :00 Center tablet HYDROcodone 2021- No 1{tbl} Take [address] -acetaminop 5-05 02-16 tablet by Laurita naiks hen ([facility] 00:00: 00:00 mouth Medic al 5-325) 00 :00 every 6 Center 5-325 mg (six) per tablet hours as needed for Pain. nortriptyli 2019-0 Yes 25mg QD Take [address] [facility] ([facility] 00:00: daily. Medica l 25 MG 00 Center capsule nortriptyli 2019- Yes [id number] 25mg Take 1 [facility] ne 25 mg 1-30 capsule by ity o f capsule 00:00: mouth at [place] 00 bedtime. Medical Every Branch night for pain in legs. metFORMIN 2020-0 Yes [id number] 1000mg Take 1 Univers 1,000 mg 1-30 tablet by ity of tablet 00:00: mouth [place] (two) Medical times Branch daily with meals. nortriptyli 2020-0 Yes [id number] 25mg Take 1 Univers ne 25 mg 1-30 capsule by ity o f capsule 00:00: mouth at [place] bedtime. Medical Every Branch night for pain in legs. metFORMIN 2020-0 Yes [id number] 1000mg Take 1 Univers 1,000 mg 1-30 tablet by ity of tablet 00:00: mouth [place] (two) Medical times Branch daily with meals. nortriptyli 2020-0 Yes [id number] 25mg Take 1 Univers ne 25 mg 1-30 capsule by ity o f capsule 00:00: mouth at [place] [address] bedtime. Medical Every Branch night for pain in legs. metFORMIN 2020-0 Yes [id number] 1000mg Take 1 Univers 1,000 mg 1-30 tablet by ity of tablet 00:00: mouth [place] (two) Medical times Branch daily with meals. nortriptyli 2020-0 Yes [id number] 25mg Take 1 Univers ne 25 mg 1-30 capsule by ity o f capsule 00:00: mouth at [place] [address] bedtime. Medical Every Branch night for pain in legs. metFORMIN 2020-0 Yes [id number] 1000mg Take 1 Univers 1,000 mg 1-30 tablet by ity of tablet 00:00: mouth [place] (two) Medical times Branch daily with meals. nortriptyli 2020-0 2022- No 25mg QD Take [address] [facility] 1-30 02-16 [facility] ([facility]) 00:00: 00:00 daily. Medic al 25 MG 00 :00 Center capsule nortriptyli 2020-0 2022- No 25mg QD Take [address] [facility] 1-30 02-[facility] ([facility]) 00:00: 00:00 daily. Medic al 25 MG 00 :00 Center capsule nortriptyli 2020-0 2022- No 25mg QD Take [address] [facility] 1-30 02-16 [facility] ([facility]) 00:00: 00:00 daily. Medic al 25 MG 00 :00 Center capsule nortriptyli 2019-0 2022- No 25mg QD Take [address] [facility] 07-17-16 [facility] ([facility]) 00:00: 00:00 daily. Medic al 25 MG 00 :00 Center capsule nortriptyli 2020-0 2022- No 25mg QD Take [address] [facility] 30 -16 [facility] ([facility]) 00:00: 00:00 daily. Medic al 25 MG 00 :00 Center capsule nortriptyli 2020-0 2022- No 25mg QD Take [address] [facility] 07-17-16 [facility] ([facility]) 00:00: 00:00 daily. Medic al 25 MG 00 :00 Center capsule blood sugar 2017-0 Yes [id number] Check Univers diagnostic 6-06 blood ity of strip 00:00: sugar [place] 00 twice a Medical day. E11.9 Branch blood sugar 2018-0 Yes [id number] Check Univers diagnostic 6-06 blood ity of strip 00:00: sugar [place] 00 twice a Medical day. E11.9 Branch blood sugar 2018-0 Yes [id number] Check Univers diagnostic 6-06 blood ity of strip 00:00: sugar [place] 00 twice a Medical day. E11.9 Branch blood sugar 2018-0 Yes [id number] Check Univers diagnostic 6-06 blood ity of strip 00:00: sugar [place] 00 twice a Medical day. E11.9 Branch Blood-Gluco 2018-0 Yes [id number] Use BID, Univers se Meter 5-23 DX E11.9 ity of Kit 00:00: ([facility] upon Medical insurance Branch approval) lancets-blo 2017- Yes [id number] 1{each} 1 Each 2 Univers od glucose 5-23 (two) ity of strips 30 00:00: times [place] gauge Cmpk 00 daily. Use Med ical BID, DX Branch E11.9 ([facility] upon insurance approval) Blood-Gluco 2018- Yes [id number] Use BID, Univers se Meter 5-23 DX E11.9 ity of Kit 00:00: ([facility] upon Medical insurance Branch approval) lancets-blo 2018- Yes [id number] 1{each} 1 Each 2 Univers od glucose 5-23 (two) ity of strips 30 00:00: times [place] gauge Cmpk 00 daily. Use Med ical BID, DX Branch E11.9 ([facility] upon insurance approval) Blood-Gluco Yes [id number] Use BID, Univers se Meter 5-23 DX E11.9 ity of Kit 00:00: ([address] approval) lancets-blo Yes [id number] 1{each} 1 Each 2 Univers od glucose 5-23 (two) ity of strips 30 00:00: times [place] gauge Cmpk 00 daily. Use Med ical BID, DX Branch E11.9 ([facility] upon insurance approval) Blood-Gluco Yes [id number] Use BID, Univers se Meter 5-23 DX E11.9 ity of Kit 00:00: ([address] approval) lancets-blo Yes [id number] 1{each} 1 Each 2 Univers od glucose 5-23 (two) ity of strips 30 00:00: times [place] gauge Cmpk 00 daily. Use Med ical BID, DX Branch E11.9 ([facility] upon insurance approval) Immunizations Ordered Filled Date Status Comments Source Immunization Name Immunization Name Moderna COVID-19 2021-09-02 Completed Vaccine 00:00:00 Moderna COVID-19 2021-09-02 Completed Vaccine 00:00:00 Moderna COVID-19 2021-09-02 Completed Vaccine 00:00:00 Moderna COVID-19 2020-12-08 Completed Vaccine 00:00:00 Moderna COVID-19 2020-12-08 Completed Vaccine 00:00:00 Moderna COVID-19 2020-12-08 Completed Vaccine 00:00:00 Influenza High Dose 2019-03-26 Completed Unive rsity of 00:00:00 [facility] Influenza High Dose 2019-03-26 Completed Unive rsity of 00:00:00 [facility] Influenza High Dose 2019-03-26 Completed Unive rsity of 00:00:00 [facility] Influenza High Dose 2018-04-10 Completed Unive rsity of 00:00:00 [facility] Pneumococcal 2018-04-10 Completed University o f Polysaccharide, 00:00:00 [place] Med ical PPSV23 (PNEUMOVAX) [place] Influenza High Dose 2018-04-10 Completed Unive rsity of 00:00:00 [facility] Pneumococcal 2018-04-10 Completed University o f Polysaccharide, 00:00:00 [place] Med ical PPSV23 (PNEUMOVAX) Branch Influenza High Dose 2018-04-10 Completed Unive rsity of 00:00:00 [facility] Pneumococcal 2018-04-10 Completed University o f Polysaccharide, 00:00:00 [place] Med ical PPSV23 (PNEUMOVAX) Branch Influenza High Dose 2017-03-28 Completed Unive rsity of 00:00:00 [facility] Pneumococcal 13 2017-03-28 Completed Universit y of Conjugate, PCV13 00:00:00 [place] Me dical (Prevnar 13) Branch Influenza High Dose 2017-03-28 Completed Unive rsity of 00:00:00 [facility] Pneumococcal 13 2017-03-28 Completed Universit y of Conjugate, PCV13 00:00:00 [place] Me dical (Prevnar 13) Branch Influenza High Dose 2017-03-28 Completed Unive rsity of 00:00:00 [facility] Pneumococcal 13 2017-03-28 Completed Universit y of Conjugate, PCV13 00:00:00 [facility] dical (Prevnar 13) Branch Influenza Virus 2011-04-26 Completed Universit y of Vaccine 00:00:00 [facility] Pneumococcal 7 2011-04-26 Completed University of Conjugate, PCV7 00:00:00 [place] Med ical (Prevnar7) Branch Influenza Virus 2011-04-26 Completed Universit y of Vaccine 00:00:00 [facility] Pneumococcal 7 2011-04-26 Completed University of Conjugate, PCV7 00:00:00 [place] Med ical (Prevnar7) Branch Influenza Virus 2011-04-26 Completed Universit y of Vaccine 00:00:00 [facility] Pneumococcal 7 2011-04-26 Completed University of Conjugate, PCV7 00:00:00 [place] Med ical (Prevnar7) Branch Influenza Virus Unknown Completed Universit y of Vaccine [facility] Pneumococcal 7 Unknown Completed University of Conjugate, PCV7 [place] Med ical (Prevnar7) Branch Influenza High Dose Unknown Completed Unive rsity of [facility] Pneumococcal 13 Unknown Completed Universit y of Conjugate, PCV13 [facility] dical (Prevnar 13) Branch Influenza High Dose Unknown Completed Unive rsity of [facility] Pneumococcal Unknown Completed University o f Polysaccharide, [place] Med ical PPSV23 (PNEUMOVAX) Branch Influenza High Dose Unknown Completed Unive rsity of [place] [facility] Vital Signs Vital Name Observation Time Observation Value Comments Source HEIGHT 2020-01-30 00:00:00 162.6 cm WEIGHT 2020-01-30 00:00:00 56.2 kg HEIGHT 2019-12-18 00:00:00 157.5 cm WEIGHT 2019-12-18 00:00:00 60.963 kg HEIGHT 2019-11-30 00:00:00 157.5 cm WEIGHT 2019-11-30 00:00:00 62.1 kg Respiratory rate 2022-07-27 14:57:00 20 /min Univ ersity of [place] [facility] Heart rate 2022-07-27 14:55:00 54 /min Universi ty of [facility] Oxygen saturation in 2022-07-27 14:55:00 100 /min University of Arterial blood by [place] [facility] Pulse oximetry Branch Systolic blood 2022-07-27 14:46:00 146 mm[Hg] Univer sity of pressure [place] [facility] Diastolic blood 2022-07-27 14:46:00 69 mm[Hg] Unive rsity of pressure [place] [facility] Body temperature 2022-07-27 14:37:00 36.72 Terese Univ [facility] [place] [facility] Body height 2022-07-25 14:00:00 162.6 cm [facility] [place] [facility] Body weight 2022-07-25 14:00:00 68.04 kg [facility] [place] [facility] BMI 2022-07-25 14:00:00 25.75 kg/m2 [facility] [place] [facility] Systolic blood 2022-07-27 13:21:00 116 mm[Hg] Univer sity of pressure [place] [facility] Diastolic blood 2022-07-27 13:21:00 70 mm[Hg] Unive rsity of pressure [place] [facility] Heart rate 2022-07-27 13:21:00 64 /min [facility] [place] [facility] Body temperature 2022-07-27 13:21:00 36.11 Terese [facility] [place] [facility] Respiratory rate 2022-07-27 13:21:00 16 /min Univ ers[facility] [place] [facility] Oxygen saturation in 2022-07-27 13:21:00 100 /min University of Arterial blood by [facility] Pulse oximetry Branch Body height 2022-07-25 14:00:00 162.6 cm [facility] Body weight 2022-07-25 14:00:00 68.04 kg [facility] BMI 2022-07-25 14:00:00 25.75 kg/m2 [facility] WEIGHT 2021-08-03 09:03:00 66.4 kg WEIGHT 2021-08-02 23:00:00 65.681 kg HEIGHT 2021-08-02 23:00:00 162.6 cm WEIGHT 2021-08-03 09:03:00 66.4 kg WEIGHT 2021-08-02 23:00:00 65.681 kg HEIGHT 2021-08-02 23:00:00 162.6 cm HEIGHT 2020-01-30 00:00:00 162.6 cm WEIGHT 2020-01-30 00:00:00 56.2 kg HEIGHT 2019-12-18 00:00:00 157.5 cm WEIGHT 2019-12-18 00:00:00 60.963 kg HEIGHT 2019-11-30 00:00:00 157.5 cm WEIGHT 2019-11-30 00:00:00 62.1 kg BP Systolic 2022-05-10 16:06:00 130 mm[Hg] BP Diastolic 2022-05-10 16:06:00 78 mm[Hg] Weight Measured 2022-05-10 16:06:00 152.60 pounds Height Measured 2022-05-10 16:06:00 63.07 inches Body Temperature 2022-05-10 16:06:00 98.50 degrees Heart Rate 2022-05-10 16:06:00 Respiratory Rate 2022-05-10 16:06:00 BP Systolic 2022-04-21 09:08:00 BP Diastolic 2022-04-21 09:08:00 Weight Measured 2022-04-21 09:08:00 Height Measured 2022-04-21 09:08:00 Body Temperature 2022-04-21 09:08:00 Heart Rate 2022-04-21 09:08:00 Respiratory Rate 2022-04-21 09:08:00 BP Systolic 2022-04-20 17:08:00 128 mm[Hg] BP Diastolic 2022-04-20 17:08:00 78 mm[Hg] Weight Measured 2022-04-20 17:08:00 154.40 pounds Height Measured 2022-04-20 17:08:00 63.07 inches Body Temperature 2022-04-20 17:08:00 Heart Rate 2022-04-20 17:08:00 57.00 /min Respiratory Rate 2022-04-20 17:08:00 BP Systolic 2021-12-13 11:25:00 153 mm[Hg] BP Diastolic 2021-12-13 11:25:00 83 mm[Hg] Weight Measured 2021-12-13 11:25:00 150.00 pounds Height Measured 2021-12-13 11:25:00 63.07 inches Body Temperature 2021-12-13 11:25:00 97.40 degrees Heart Rate 2021-12-13 11:25:00 63.00 /min Respiratory Rate 2021-12-13 11:25:00 BP Systolic 2021-10-06 10:50:00 132 mm[Hg] BP Diastolic 2021-10-06 10:50:00 66 mm[Hg] Weight Measured 2021-10-06 10:50:00 149.80 pounds Height Measured 2021-10-06 10:50:00 63.07 inches Body Temperature 2021-10-06 10:50:00 98.20 degrees Heart Rate 2021-10-06 10:50:00 68.00 /min Respiratory Rate 2021-10-06 10:50:00 BP Systolic 2021-09-07 14:50:00 147 mm[Hg] BP Diastolic 2021-09-07 14:50:00 75 mm[Hg] Weight Measured 2021-09-07 14:50:00 150.80 pounds Height Measured 2021-09-07 14:50:00 63.07 inches Body Temperature 2021-09-07 14:50:00 97.50 degrees Heart Rate 2021-09-07 14:50:00 67.00 /min Respiratory Rate 2021-09-07 14:50:00 Heart rate 2021-08-05 09:00:00 77 /min [facility] Respiratory rate 2021-08-05 09:00:00 18 /min [facility] Oxygen saturation in 2021-08-05 09:00:00 98 /min [facility] Arterial blood by Medical Ce nter Pulse oximetry Systolic blood 2021-08-05 07:00:00 137 mm[Hg] [facility] Diastolic blood 2021-08-05 07:00:00 79 mm[Hg] [facility] Body temperature 2021-08-05 07:00:00 36.61 Terese [facility] Body weight 2021-08-03 09:03:00 66.4 kg [facility] BMI 2021-08-03 09:03:00 25.13 kg/m2 [facility] Body height 2021-08-02 23:00:00 162.6 cm [facility] BP Systolic 2020-12-27 11:13:00 126 mm[Hg] BP Diastolic 2020-12-27 11:13:00 68 mm[Hg] Weight Measured 2020-12-27 11:13:00 149.40 pounds Height Measured 2020-12-27 11:13:00 Body Temperature 2020-12-27 11:13:00 98.60 degrees Heart Rate 2020-12-27 11:13:00 68.00 /min Respiratory Rate 2020-12-27 11:13:00 21.00 /min Systolic blood 2020-02-17 13:00:00 162 mm[Hg] [facility] Diastolic blood 2020-02-17 13:00:00 74 mm[Hg] [facility] Heart rate 2020-02-17 13:00:00 69 /min [facility] Body temperature 2020-02-17 13:00:00 35.78 Terese [facility] Respiratory rate 2020-02-17 13:00:00 18 /min [facility] Oxygen saturation in 2020-02-17 13:00:00 100 /min [facility] Arterial blood by Medical Ce nter Pulse oximetry Procedures Procedure Date / Time Performing Source Performed Clinician PHACOEMULSIFICATION OF 2022-07-27 [facility] CATARACT WITH INTRAOCULAR 13:55:00 Beni Yu LENS IMPLANT POCT GLUCOSE (AUTOMATED) 2022-07-27 Jigna [facility] 13:18:00 [facility] POCT GLUCOSE (AUTOMATED) 2022-07-[address] [facility] 13:18:00 [facility] DAY SURGERY - ADC 2022-07-27 Doctor Unassigned, [facility] 06:01:00 [place] [facility] POCT-GLUCOSE METER 2021-08-05 Arif, Sahar [facility] 07:58:00 Medical Center POCT-GLUCOSE METER 2021-08-04 Arif, Sahar [facility] 21:23:00 Medical Center POCT-GLUCOSE METER 2021-08-04 Arif, Sahar [facility] 16:50:00 Medical Center POCT-GLUCOSE METER 2021-08-04 Arif, Sahar [facility] 11:53:00 Medical Center POCT-GLUCOSE METER 2021-08-04 Arif, Sahar [facility] 07:59:00 Medical Center APTT 2021-08-04 Arif, Sahar [facility] 00:48:00 Medical Center CBC W/PLT COUNT & AUTO 2021-08-04 Arif, Sahar [facility] DIFFERENTIAL 00:48:00 [facility] BASIC METABOLIC PANEL 2021-08-04 Arif, [facility]ar [facility] 00:[facility] Medical Center CBC W/PLT COUNT & AUTO 2021-08-04 Arif, Sahar [facility] DIFFERENTIAL 00:48:00 Medical Center POCT-GLUCOSE METER 2021-08-03 Arif, Sahar [facility] 21:18:00 Medical Center APTT 2021-08-03 Arif, Sahar [facility] 19:06:00 Medical Center POCT-GLUCOSE METER 2021-08-03 Arif, Sahar [facility] 16:44:00 Medical Center ARTERIAL (TOSHIA'S W/ DOPPLER) 2021-08-03 Tawanna, Shaheed [facility] ONLY 14:35:00 Medical Center POCT-GLUCOSE METER 2021-08-03 Arif, Sahar [facility] 11:48:00 Medical Center APTT 2021-08-03 Arif, Sahar [facility] 10:46:00 Medical Center CTA AAA AND RUNOFF 2021-08-03 Tawanna, Shaheed [facility] 10:32:00 Medical Center POCT-GLUCOSE METER 2021-08-[address] [facility] 06:57:00 [facility] CBC W/PLT COUNT & AUTO 2021-08-03 Wilfred, Po [facility] DIFFERENTIAL 03:32:00 [facility] COMPREHENSIVE METABOLIC PANEL 2021-08-03 Khjasonab, [facility] 03:32:00 [facility] APTT 2021-08-03 [facility] Tamer [facility] 03:32:00 [facility] PROTHROMBIN TIME/INR 2021-08-03 [facility], Michaeler [facility] 03:32:00 [facility] MAGNESIUM 2021-08-03 [facility], Tamer [facility] 03:32:00 [facility] HEMOGLOBIN A1C 2021-08-03 [facility], Tamer [facility] 03:32:00 [facility] TYPE AND SCREEN, AUTOMATED 2021-08-03 [facility] Po [facility] 03:32:00 [facility] CBC W/PLT COUNT & AUTO 2021-08-03 [facility], Po [facility] DIFFERENTIAL 03:32:00 [facility] EKG-SCANNED 2021-08-02 Provider, Errol [facility] 00:00:00 [facility] POCT-GLUCOSE METER 2020-02-17 Ammy, Manuel [facility] 12:55:00 [facility] POCT-GLUCOSE METER 2020-02-17 Ammy, Manuel [facility] 07:48:00 [facility] POCT-GLUCOSE METER 2020-02-16 Ammy, Manuel [facility] 21:14:00 [facility] POCT-GLUCOSE METER 2020-02-16 Ammy, Manuel [facility] 16:28:00 [facility] POCT-GLUCOSE METER 2020-02-16 Ammy, Manuel [facility] 11:35:00 [facility] POCT-GLUCOSE METER 2020-02-16 Ammy, Manuel [facility] 07:34:00 [facility] POCT-GLUCOSE METER 2020-02-15 Ammy, Manuel [facility] 21:19:00 [facility] POCT-GLUCOSE METER 2020-02-15 Ammy, Manuel [facility] 15:51:00 [facility] POCT-GLUCOSE METER 2020-02-[address] [facility] 12:16:00 [facility] POCT-GLUCOSE METER 2020-02-[address] [facility] 08:01:00 [facility] CBC W/PLT COUNT & AUTO 2020-02-[address] [facility] DIFFERENTIAL 04:24:00 [facility] Plan of Care Planned Activity Planned Date Details Comments Source Future Scheduled 2023-02-[address] [facility] Test 00:00:00 (Season Ended) [code = [facility] Center INFLUENZA VACCINE (Season Ended)] Future Scheduled 2023-02-[address] [facility] Test 00:00:00 (Season Ended) [code = [facility] INFLUENZA VACCINE (Season Ended)] Future Scheduled 2023-02-16 Influenza Vaccine (#1) [facility] 00:00:00 [code = Influenza Medical Ce nter Vaccine (#1)] Future Scheduled 2022-06-[address] [facility] Test 00:00:00 (12+) [code = [facility] Center DEPRESSION SCREENING (12+)] Future Scheduled 2022-06-18 FALLS RISK SCREENING [facility] Test 00:00:00 [code = FALLS RISK Medical C enter SCREENING] Future Scheduled 2022-06-[address] [facility] Test 00:00:00 (12+) [code = [facility] Center DEPRESSION SCREENING (12+)] Future Scheduled 2022-06-18 F[place] RISK SCREENING [facility] 00:00:00 [code = FALLS RISK Medical C enter SCREENING] Future Scheduled 2022-06-[address] [facility] Test 00:00:00 (12+) [code = Medical Center DEPRESSION SCREENING (12+)] Future Scheduled 2022-06-18 FALLS RISK SCREENING [facility] 00:00:00 [code = FALLS RISK Medical C enter SCREENING] Future Scheduled 2022-02-16 INFLUENZA VACCINE (#1) [facility] 00:00:00 [code = INFLUENZA Medical Ce nter VACCINE (#1)] Future Scheduled 2022-02-16 INFLUENZA VACCINE (#1) [facility] 00:00:00 [code = INFLUENZA Medical Ce nter VACCINE (#1)] Future Scheduled 2022-02-16 INFLUENZA VACCINE (#1) [facility] 00:00:00 [code = INFLUENZA Medical Ce nter VACCINE (#1)] Future Scheduled 2022-02-16 INFLUENZA VACCINE (#1) [facility] 00:00:00 [code = INFLUENZA Medical Ce nter VACCINE (#1)] Future Scheduled 2022-02-16 INFLUENZA VACCINE (#1) [facility] 00:00:00 [code = INFLUENZA Medical Ce nter VACCINE (#1)] Future Scheduled 2022-02-16 INFLUENZA VACCINE (#1) [facility] 00:00:00 [code = INFLUENZA Medical Ce nter VACCINE (#1)] Future Scheduled 2021-06-[address] [facility] 00:00:00 (12+) [code = Medical Center DEPRESSION SCREENING (12+)] Future Scheduled 2021-06-[address] [facility] 00:00:00 (12+) [code = Medical Center DEPRESSION SCREENING (12+)] Future Scheduled 2021-06-[address] [facility] 00:00:00 (12+) [code = Medical Center DEPRESSION SCREENING (12+)] Future Scheduled 2021-06-[address] [facility] 00:00:00 (12+) [code = Medical Center DEPRESSION SCREENING (12+)] Future Scheduled 2021-06-[address] [facility] 00:00:00 (12+) [code = Medical Center DEPRESSION SCREENING (12+)] Future Scheduled 2021-06-[address] [facility] 00:00:00 (12+) [code = Medical Center DEPRESSION SCREENING (12+)] Future Scheduled 2021-02-16 INFLUENZA VACCINE (#1) [facility] 00:00:00 [code = INFLUENZA Medical Ce nter VACCINE (#1)] Future Scheduled 2021-02-[address] [facility] Test 00:00:00 Counseling and Medical Cente r Screening (12+) [code = Tobacco Cessation Counseling and Screening (12+)] Future Scheduled 2021-02-[address] [facility] 00:00:00 Counseling and Medical Cente r Screening (12+) [code = Tobacco Cessation Counseling and Screening (12+)] Future Scheduled 2021-02-[address] [facility] Test 00:00:00 Counseling and Medical Cente r Screening (12+) [code = Tobacco Cessation Counseling and Screening (12+)] Future Scheduled 2021-02-[address] [facility] Test 00:00:00 Counseling and Medical Cente r Screening (12+) [code = Tobacco Cessation Counseling and Screening (12+)] Future Scheduled 2021-02-[address] [facility] Test 00:00:00 Counseling and Medical Cente r Screening (12+) [code = Tobacco Cessation Counseling and Screening (12+)] Future Scheduled 2021-02-[address] [facility] Test 00:00:00 Counseling and Medical Cente r Screening (12+) [code = Tobacco Cessation Counseling and Screening (12+)] Future Scheduled 2020-06-[address] [facility] Test 00:00:00 (12+) [code = Medical Center DEPRESSION SCREENING (12+)] Future Scheduled 2020-06-18 FALLS RISK SCREENING [facility] 00:00:00 [code = FALLS RISK Medical C enter SCREENING] Future Scheduled 2020-03-[address] [facility] 00:00:00 measurement (procedure) [facility] [code = 46396535] Future Scheduled 2020-03-[address] [facility] 00:00:00 measurement (procedure) [facility] [code = [id number]] Future Scheduled 2020-03-[address] [facility] 00:00:00 measurement (procedure) [facility] [code = [id number]] Future Scheduled 2020-03-[address] [facility] Test 00:00:00 measurement (procedure) [facility] [code = [id number]] Future Scheduled 2020-03-[address] [facility] 00:00:00 measurement (procedure) [facility] [code = [id number]] Future Scheduled 2020-03-[address] [facility] 00:00:00 measurement (procedure) [facility] [code = 05814367] Future Scheduled 2020-03-[address] [facility] 00:00:00 measurement (procedure) [facility] [code = 36684841] Future Scheduled 2020-03-[address] [facility] 00:00:00 measurement (procedure) [facility] [code = 17578373] Future Scheduled 2020-03-[address] [facility] 00:00:00 measurement (procedure) [facility] [code = 48071732] Future Scheduled 2020-03-[address] [facility] 00:00:00 measurement (procedure) [facility] [code = 96623477] Future Scheduled 2018-08-[address] [facility] 00:00:00 WELLNESS (YEAR 2 or Medical Center FIRST YEAR if no IPPE) [code = MEDICARE ANNUAL WELLNESS (YEAR 2 or FIRST YEAR if no IPPE)] Future Scheduled 2018-08-[address] [facility] 00:00:00 WELLNESS (YEAR 2 or Medical Center FIRST YEAR if no IPPE) [code = MEDICARE ANNUAL WELLNESS (YEAR 2 or FIRST YEAR if no IPPE)] Future Scheduled 2018-08-[address] [facility] 00:00:00 WELLNESS (YEAR 2 or Medical Center FIRST YEAR if no IPPE) [code = MEDICARE ANNUAL WELLNESS (YEAR 2 or FIRST YEAR if no IPPE)] Future Scheduled 2018-08-[address] [facility] 00:00:00 WELLNESS (YEAR 2 or Medical Center FIRST YEAR if no IPPE) [code = MEDICARE ANNUAL WELLNESS (YEAR 2 or FIRST YEAR if no IPPE)] Future Scheduled 2018-08-[address] [facility] 00:00:00 WELLNESS (YEAR 2 or Medical Center FIRST YEAR if no IPPE) [code = MEDICARE ANNUAL WELLNESS (YEAR 2 or FIRST YEAR if no IPPE)] Future Scheduled 2018-08-[address] [facility] 00:00:00 WELLNESS (YEAR 2 or Medical Center FIRST YEAR if no IPPE) [code = MEDICARE ANNUAL WELLNESS (YEAR 2 or FIRST YEAR if no IPPE)] Future Scheduled 2018-08-[address] [facility] 00:00:00 WELLNESS (YEAR 2 or Medical Center FIRST YEAR if no IPPE) [code = MEDICARE ANNUAL WELLNESS (YEAR 2 or FIRST YEAR if no IPPE)] Future Scheduled 2018-08-[address] [facility] 00:00:00 WELLNESS (YEAR 2 or Medical Center FIRST YEAR if no IPPE) [code = MEDICARE ANNUAL WELLNESS (YEAR 2 or FIRST YEAR if no IPPE)] Future Scheduled 2018-08-[address] [facility] 00:00:00 WELLNESS (YEAR 2 or Medical Center FIRST YEAR if no IPPE) [code = MEDICARE ANNUAL WELLNESS (YEAR 2 or FIRST YEAR if no IPPE)] Future Scheduled 2018-08-[address] [facility] 00:00:00 WELLNESS (YEAR 2 or Medical Center FIRST YEAR if no IPPE) [code = MEDICARE ANNUAL WELLNESS (YEAR 2 or FIRST YEAR if no IPPE)] Future Scheduled 2017-05-30 Urine screening for [facility] 00:[facility]:00 protein (procedure) [facility] [code = 313890185] Future Scheduled 2017-05-30 Urine screening for [facility] 00:00:00 protein (procedure) [facility] [code = 259049656] Future Scheduled 2017-05-30 Urine screening for [facility] 00:00:00 protein (procedure) [facility] [code = 914287220] Future Scheduled 2017-05-30 Urine screening for [facility] 00:00:00 protein (procedure) [facility] [code = 951338074] Future Scheduled 2017-05-30 Urine screening for [facility] 00:00:00 protein (procedure) [facility] Center [code = 159613138] Future Scheduled 2017-05-30 Urine screening for [facility] 00:00:00 protein (procedure) [facility] Center [code = 907826013] Future Scheduled 2017-05-30 Urine screening for [facility] 00:00:00 protein (procedure) [facility] Center [code = 786585791] Future Scheduled 2017-05-30 Urine screening for [facility] 00:00:00 protein (procedure) [facility] Center [code = 391683424] Future Scheduled 2017-05-30 Urine screening for [facility] 00:00:00 protein (procedure) [facility] Center [code = 450669537] Future Scheduled 2017-05-30 Urine screening for [facility] 00:00:00 protein (procedure) Medical Center [code = 876370419] Future Scheduled 1996 SHINGLES VACCINES ([address] [facility] 00:00:00 2) [code = [facility] VACCINES (1 of 2)] Future Scheduled 1996 SHINGLES VACCINES ([address] [facility] 00:00:00 2) [code = [facility] VACCINES (1 of 2)] Future Scheduled 1996 SHINGLES VACCINES ([address] [facility] 00:00:00 2) [code = SHINGLES Medical Center VACCINES (1 of 2)] Future Scheduled 1996 SHINGLES VACCINES ([address] [facility] 00:00:00 2) [code = SHINGLES Medical Center VACCINES (1 of 2)] Future Scheduled 1996 SHINGLES VACCINES ([address] [facility] 00:00:00 2) [code = SHINGLES Medical Center VACCINES (1 of 2)] Future Scheduled 1996 SHINGLES VACCINES ([address] [facility] 00:00:00 2) [code = SHINGLES Medical Center VACCINES (1 of 2)] Future Scheduled 1996 SHINGLES VACCINES ([address] [facility] 00:00:00 2) [code = SHINGLES Medical Center VACCINES (1 of 2)] Future Scheduled 1996 SHINGLES VACCINES ([address] [facility] 00:00:00 2) [code = SHINGLES Medical Center VACCINES (1 of 2)] Future Scheduled 1996 SHINGLES VACCINES ([address] [facility] 00:00:00 2) [code = SHINGLES Medical Center VACCINES (1 of 2)] Future Scheduled 1996 SHINGLES VACCINES ([address] [facility] 00:00:00 2) [code = SHINGLES Medical Center VACCINES (1 of 2)] Future Scheduled 1965 DTAP/TDAP/TD [facility]INES [facility] 00:00:00 (1 - Tdap) [code = Medical C enter DTAP/TDAP/TD VACCINES (1 - Tdap)] Future Scheduled 1965 DTAP/TDAP/TD [facility]ACCINES [facility] 00:00:00 (1 - Tdap) [code = Medical C enter DTAP/TDAP/TD VACCINES (1 - Tdap)] Future Scheduled 1965 DTAP/TDAP/TD [facility]ACCINES [facility] 00:00:00 (1 - Tdap) [code = Medical C enter DTAP/TDAP/TD VACCINES (1 - Tdap)] Future Scheduled 1965 DTAP/TDAP/TD [facility]ACCINES [facility] 00:00:00 (1 - Tdap) [code = Medical C enter DTAP/TDAP/TD VACCINES (1 - Tdap)] Future Scheduled 1965 DTAP/TDAP/TD [facility]ACCINES [facility] 00:00:00 (1 - Tdap) [code = Medical C enter DTAP/TDAP/TD VACCINES (1 - Tdap)] Future Scheduled 1965 DTAP/TDAP/TD [facility]ACCINES [facility] 00:00:00 (1 - Tdap) [code = Medical C enter DTAP/TDAP/TD VACCINES (1 - Tdap)] Future Scheduled 1965 DTAP/TDAP/TD [facility]ACCINES [facility] 00:00:00 (1 - Tdap) [code = Medical C enter DTAP/TDAP/TD VACCINES (1 - Tdap)] Future Scheduled 1965 DTAP/TDAP/TD [facility]ACCINES [facility] 00:00:00 (1 - Tdap) [code = Medical C enter DTAP/TDAP/TD VACCINES (1 - Tdap)] Future Scheduled 1965 DTAP/TDAP/TD [facility]ACCINES [facility] 00:00:00 (1 - Tdap) [code = Medical C enter DTAP/TDAP/TD VACCINES (1 - Tdap)] Future Scheduled 1965 DTAP/TDAP/TD [facility]ACCINES [facility] 00:00:00 (1 - Tdap) [code = Medical C enter DTAP/TDAP/TD VACCINES (1 - Tdap)] Future Scheduled 1964 HEPATITIS C [facility]CRE[facility] [code = HEPATITIS C Medical Center SCREENING] Future Scheduled 1964 HEPATITIS C [facility]:00:00 [code = HEPATITIS C Medical Center SCREENING] Future Scheduled 1964 HEPATITIS C [facility]:00:00 [code = HEPATITIS C Medical Center SCREENING] Future Scheduled 1964 HEPATITIS C [facility]:00:00 [code = HEPATITIS C Medical Center SCREENING] Future Scheduled 1964 HEPATITIS C [facility]:00:00 [code = HEPATITIS C Medical Center SCREENING] Future Scheduled 1964 HEPATITIS C [facility]:00:00 [code = HEPATITIS C Medical Center SCREENING] Future Scheduled 1964 HEPATITIS C [facility] 00:00:00 [code = HEPATITIS C Medical Center SCREENING] Future Scheduled 1964 HEPATITIS C [facility] 00:00:00 [code = HEPATITIS C Medical Center SCREENING] Future Scheduled 1964 HEPATITIS C [facility]:00:00 [code = HEPATITIS C Medical Center SCREENING] Future Scheduled 1964 HEPATITIS C [facility]:00:00 [code = HEPATITIS C Medical Center SCREENING] Future Scheduled 1958 COVID-19 VACCINE (1) [facility] 00:00:00 [code = COVID-[address] VACCINE (1)] Future Scheduled [address] [facility] 00:00:00 Counseling and Medical Cente r Screening (12+) [code = Tobacco Cessation Counseling and Screening (12+)] Future Scheduled 1956 DIABETIC EYE EXAM [code [facility] 00:00:00 = DIABETIC EYE EXAM] Medical Center Future Scheduled [address] [facility] 00[facility] examination Medical Center (regime/therapy) [code = 341124758] Future Scheduled 1956 DIABETIC EYE EXAM [code [facility] 00:00:00 = DIABETIC EYE EXAM] Medical Center Future Scheduled [address] [facility] 00:00:00 examination Medical Center (regime/therapy) [code = 319213446] Future Scheduled 1956 DIABETIC EYE EXAM [code [facility] 00:00:00 = DIABETIC EYE EXAM] Medical Center Future Scheduled [address] [facility] 00:00:00 examination Medical Center (regime/therapy) [code = 657183473] Future Scheduled 1956 DIABETIC EYE EXAM [code [facility] 00:00:00 = DIABETIC EYE EXAM] Medical Center Future Scheduled [address] [facility] 00:00:00 examination Medical Center (regime/therapy) [code = 183374580] Future Scheduled 1956 DIABETIC EYE EXAM [code [facility] 00:00:00 = DIABETIC EYE EXAM] Medical Center Future Scheduled [address] [facility] 00:00:00 examination Medical Center (regime/therapy) [code = 488482395] Future Scheduled 1956 DIABETIC EYE EXAM [code [facility] 00:00:00 = DIABETIC EYE EXAM] Medical Center Future Scheduled [address] [facility] 00:00:00 examination Medical Center (regime/therapy) [code = 533094693] Future Scheduled 1956 DIABETIC EYE EXAM [code [facility] 00:00:00 = DIABETIC EYE EXAM] Medical Center Future Scheduled [address] [facility] 00:00:00 examination Medical Center (regime/therapy) [code = 432167791] Future Scheduled 1956 DIABETIC EYE EXAM [code [facility] 00:00:00 = DIABETIC EYE EXAM] Medical Center Future Scheduled [address] [facility] 00:00:00 examination Medical Center (regime/therapy) [code = 329050577] Future Scheduled 1956 DIABETIC EYE EXAM [code [facility] 00:00:00 = DIABETIC EYE EXAM] Medical Center Future Scheduled [address] [facility] 00:00:00 examination Medical Center (regime/therapy) [code = 880181450] Future Scheduled 1956 DIABETIC EYE EXAM [code [facility] 00:00:00 = DIABETIC EYE EXAM] Medical Center Future Scheduled [address] [facility] 00:00:00 examination Medical Center (regime/therapy) [code = 440260214] Future Scheduled 1947-02-28 COVID-19 VACCINE (#1[facility] [code = COVID-[address] VACCINE (#1)] Future Scheduled 1947-02-28 COVID-19 VACCINE (#1) [facility] 00:00:00 [code = COVID-[address] VACCINE (#1)] Future Scheduled 1947-02-28 COVID-19 VACCINE (#1) [facility] 00:00:00 [code = COVID-[address] VACCINE (#1)] Future Scheduled 1947-02-28 COVID-19 VACCINE (#1) [facility] 00:00:00 [code = COVID-[address] VACCINE (#1)] Future Scheduled 1947-02-28 COVID-19 VACCINE (#1) [facility] 00:00:00 [code = COVID-[address] VACCINE (#1)] Future Scheduled 1947-02-28 COVID-19 VACCINE (#1) [facility] 00:00:00 [code = COVID-[address] VACCINE (#1)] Future Scheduled 1947-02-28 COVID-19 VACCINE (#1) [facility] 00:00:00 [code = COVID-[address] VACCINE (#1)] Future Scheduled 1947-02-28 COVID-19 VACCINE (#1) [facility] 00:00:00 [code = COVID-[address] VACCINE (#1)] Future Scheduled 1947-02-28 COVID-19 VACCINE (#1) [facility] 00:00:00 [code = COVID-[address] VACCINE (#1)] Future Scheduled 1946 CT Colonography (combo) [facility] 00:00:00 [code = CT Colonography [facility] (combo)] Future Scheduled 1946 Screening for malignant [facility] 00:00:00 neoplasm of colon Medical Ce nter (procedure) [code = 352980462] Future Scheduled 1946 Screening for malignant [facility] 00:00:00 neoplasm of colon Medical Ce nter (procedure) [code = 822103766] Future Scheduled 1946 DXA SCAN [code = DXA [facility] 00:00:00 SCAN] [facility] Future Scheduled 1946 Screening for malignant [facility] 00:00:00 neoplasm of colon Medical Ce nter (procedure) [code = 587289326] Future Scheduled 1946 Screening for malignant [facility] 00:00:00 neoplasm of colon Medical Ce nter (procedure) [code = 061265892] Future Scheduled 1946 Sigmoidoscopy [code = [facility] Colon[facility] (combo) [facility] 00:00:00 [code = CT Colonography [facility] (combo)] Future Scheduled 1946 Screening for malignant [facility] 00:00:00 neoplasm of colon Medical Ce nter (procedure) [code = 656966888] Future Scheduled 1946 Screening for malignant [facility] 00:00:00 neoplasm of colon Medical Ce nter (procedure) [code = 589898808] Future Scheduled 1946 DXA SCAN [code = DXA [facility] 00:00:00 SCAN] [facility] Future Scheduled 1946 Screening for malignant [facility] 00:00:00 neoplasm of colon Medical Ce nter (procedure) [code = 683397844] Future Scheduled 1946 Screening for malignant [facility] 00:00:00 neoplasm of colon Medical Ce nter (procedure) [code = 801075878] Future Scheduled 1946 Sigmoidoscopy [code = [facility] 00:[facility] Sigmoidoscopy] [facility] Future Scheduled 1946 CT Colonography (combo) [facility] 00:00:00 [code = CT Colonography [facility] (combo)] Future Scheduled 1946 Screening for malignant [facility] 00:00:00 neoplasm of colon Medical Ce nter (procedure) [code = 913263726] Future Scheduled 1946 Screening for malignant [facility] 00:00:00 neoplasm of colon Medical Ce nter (procedure) [code = 612592164] Future Scheduled 1946 DXA SCAN [code = DXA [facility] 00:00:00 SCAN] [facility] Future Scheduled 1946 Screening for malignant [facility] 00:00:00 neoplasm of colon Medical Ce nter (procedure) [code = 906153404] Future Scheduled 1946 Screening for malignant [facility] 00:00:00 neoplasm of colon Medical Ce nter (procedure) [code = 340842317] Future Scheduled 1946 Sigmoidoscopy [code = [facility]] [facility] Future Scheduled 1946 CT Colonography (combo) [facility] 00:00:00 [code = CT Colonography [facility] (combo)] Future Scheduled 1946 Screening for malignant [facility] 00:00:00 neoplasm of colon Medical Ce nter (procedure) [code = 596209504] Future Scheduled 1946 Screening for malignant [facility] 00:00:00 neoplasm of colon Medical Ce nter (procedure) [code = 042257388] Future Scheduled 1946 DXA SCAN [code = DXA [facility] 00:00:00 SCAN] [facility] Future Scheduled 1946 Screening for malignant [facility] 00:00:00 neoplasm of colon Medical Ce nter (procedure) [code = 858871974] Future Scheduled 1946 Screening for malignant [facility] 00:00:00 neoplasm of colon Medical Ce nter (procedure) [code = 975095341] Future Scheduled 1946 Sigmoidoscopy [code = [facility]] [facility] Future Scheduled 1946 CT Colonography (combo) [facility] 00:00:00 [code = CT Colonography [facility] (combo)] Future Scheduled 1946 Screening for malignant [facility] 00:00:00 neoplasm of colon Medical Ce nter (procedure) [code = 584069831] Future Scheduled 1946 Screening for malignant [facility] 00:00:00 neoplasm of colon Medical Ce nter (procedure) [code = 387529613] Future Scheduled 1946 DXA SCAN [code = DXA [facility] 00:00:00 SCAN] [facility] Future Scheduled 1946 Screening for malignant [facility] 00:00:00 neoplasm of colon Medical Ce nter (procedure) [code = 765574943] Future Scheduled 1946 Screening for malignant [facility] 00:00:00 neoplasm of colon Medical Ce nter (procedure) [code = 885249172] Future Scheduled 1946 Sigmoidoscopy [code = [facility]] [facility] Future Scheduled 1946 CT Colonography (combo) [facility] 00:00:00 [code = CT Colonography [facility] (combo)] Future Scheduled 1946 Screening for malignant [facility] 00:00:00 neoplasm of colon Medical Ce nter (procedure) [code = 827345787] Future Scheduled 1946 Screening for malignant [facility] 00:00:00 neoplasm of colon Medical Ce nter (procedure) [code = 767374736] Future Scheduled 1946 DXA SCAN [code = DXA [facility] 00:00:00 SCAN] [facility] Future Scheduled 1946 Screening for malignant [facility] 00:00:00 neoplasm of colon Medical Ce nter (procedure) [code = 045586394] Future Scheduled 1946 Screening for malignant [facility] 00:00:00 neoplasm of colon Medical Ce nter (procedure) [code = 172738520] Future Scheduled 1946 Sigmoidoscopy [code = [facility] 00:[facility]] [facility] Future Scheduled 1946 Screening for malignant [facility] 00:00:00 neoplasm of breast Medical C enter (procedure) [code = 367345120] Future Scheduled 1946 Screening for malignant [facility] 00:00:00 neoplasm of colon Medical Ce nter (procedure) [code = 055255248] Future Scheduled 1946 DXA SCAN [code = DXA [facility] 00:00:00 SCAN] [facility] Future Scheduled 1946 DXA SCAN [code = DXA [facility] 00:00:00 SCAN] [facility] Future Scheduled 1946 DXA SCAN [code = DXA [facility] 00:00:00 SCAN] [facility] Goal Plan of Care Note [code = 47949-3] Goal Plan of Care Note [code = 65280-6] Goal Plan of Care Note [code = 39349-7] Goal Plan of Care Note [code = 43903-4] Goal Plan of Care Note [code = 33387-5] Goal Plan of Care Note [code = 98782-3] Goal Plan of Care Note [code = 28689-1] Goal Plan of Care Note [code = 59382-0] Goal Plan of Care Note [code = 42529-1] Goal Plan of Care Note [code = 81327-0] Goal Plan of Care Note [code = 95581-6] Goal Plan of Care Note [code = 49587-2] Goal Plan of Care Note [code = 84898-9] Goal Plan of Care Note [code = 40276-5] Goal Plan of Care Note [code = 34014-6] Goal Plan of Care Note [code = 05841-6] Goal Plan of Care Note [code = 66989-4] Goal Plan of Care Note [code = 16100-3] Goal Plan of Care Note [code = 34695-2] Goal Plan of Care Note [code = 55263-3] Goal Plan of Care Note [code = 88943-3] Goal Plan of Care Note [code = 45208-7] Goal Plan of Care Note [code = 92937-3] Goal Plan of Care Note [code = 31903-4] Goal Plan of Care Note [code = 95448-8] Goal Plan of Care Note [code = 47496-2] Goal Plan of Care Note [code = 38970-0] Goal Plan of Care Note [code = 49961-5] Goal Plan of Care Note [code = 43172-1] Goal Plan of Care Note [code = 52728-1] Goal Plan of Care Note [code = 10206-6] Goal Plan of Care Note [code = 07867-4] Goal Plan of Care Note [code = 09122-3] Goal Plan of Care Note [code = 91409-4] Goal Plan of Care Note [code = 27843-4] Goal Plan of Care Note [code = 05579-4] Goal Plan of Care Note [code = 42778-5] Goal Plan of Care Note [code = 02147-8] Encounters Start End Encounter Admission Attending Care Care Encounter Source Date/Time Date/Time Type Type Clinicians Facility Department ID 2021-04-18 Outpatient Braulio JIGNA [facility] OPH [id number] Univers 01:36:11 CARMEN christelle [facility] 2021-04-[address] [facility] [id number] Univers 18:13:26 ity [facility] 2021-03-23 Outpatient LEPOW, SLE Surgery [id number] [facility] 03:18:04 GABRIEL 2019-12-18 Inpatient EL DEL [facility] PM\\T\\R [id number] [facility] 16:18:00 DARIUSZ ALEJO 2019-12-01 Inpatient ER SUTARIA, [facility] Internal [id number] [facility] 02:34:00 MARTIN Med 2022-10-11 2022-10-11 Outpatient SFA SFA [id number] Rafael 09:46:55 09:46:55 [id number] F Ken 2022-07-27 2022-07-27 Outpatient Braulio BENITO [facility] OPH [id number] Univers 06:43:00 09:05:00 CARMEN bourgeois [facility] 2022-07-27 2022-07-27 [facility] 1.2.840.114 [id number] Univers 06:43:00 09:05:00 Encounter Carmen MENDOZA [id number] [place] [id number] [facility] [address] 2022-07-27 2022-07-[address] [facility] 1.2.840.114 [id number] Univers 07:55:00 08:34:00 Carmen EMNDOZA 350.1.13.10 i [place] [id number] [facility] [address] 2022-07-27 2022-07-27 Orders Doctor KHAN 1.2.840.114 [id number] Univers 00:00:00 00:00:00 Only Unassigned, PATTY 350.1.13.10 [place] [facility] 4.2.7.2.686 [place] [id number] [place] [address] [address] 2022-05-16 2022-05-16 Outpatient SFA SFA [id number]- Rafael 17:04:48 17:04:48 [id number] F Ken 2022-05-15 2022-05-15 Outpatient SFA SFA [id number]- Rafael 08:17:19 08:17:19 [id number] F Ken 2022-05-10 2022-05-10 Outpatient SFA SFA [id number]- Rafael 16:03:34 16:03:34 [id number] F Ken 2022-05-10 2022-05-10 Outpatient [id number] 00:00:00 00:00:00 Visit [id number] 2022-04-21 2022-04-21 Outpatient SFA SFA [id number]- Rafael 08:57:09 08:57:09 [id number] F Ken 2022-04-20 2022-04-20 Outpatient SFA SFA [id number]- Rafael 17:04:24 17:04:24 [id number] F Ken 2022-04-20 2022-04-20 Outpatient [id number] 00:00:00 00:00:00 Visit [id number]-90y5-b -l476-hie [id number] 2021-12-13 2021-12-13 Outpatient [id number] [id number] 00:00:00 00:00:00 Visit [id number] [id number]-[id number] -[id number] [id number] 2021-11-10 2021-11-10 Refill Mike Shin [facility] [id number] 00:[facility] 00:00:00 [facility] 2021-08-02 2021-08-05 Inpatient ER MIKE SHIN [facility] [id number] [facility] 22:45:00 10:59:00 Srinivasa 2021-08-02 2021-08-05 [facility] [id number] 22:45:00 10:59:00 Encounter Terell Miranda Sahar [facility] 2021-08-03 2021-08-03 Travel [facility] [id number] [facility] 00:00:00 [facility] 2020-12-22 2020-12-22 Patient Doctor EDILMA 1.2.840.114 [id number] Univers 00:00:00 00:00:00 Secure Msg Unassigned, NELSON 350.1.13.10 [place] 4[place] [id number] [address] 2020-12-14 2020-12-14 Outpatient Braulio BENITO [facility] [id number] Univers 16:15:00 16:15:00 CARMEN bourgeois [facility] 2020-10-25 2020-10-25 [facility] 1.2.840.114 [id number] 15:56:00 17:25:00 Juana Mendoza 350.1.13.10 [place] 4.2.7.2.686 [place] [id number] 084 2020-09-23 2020-09-23 Orders Doctor BILL 1.2.840.114 [id number] 00:00:00 00:00:00 Only Unassigned, PATTY 350.1.13.10 [place] [facility] 4.2.7.2.686 [id number] 009 2020-07-07 2020-07-07 Jaylen Riggs [facility] 1.2.840.114 [id number] 00:00:00 00:00:00 Vanesa Mendoza 350.1.13.10 [place] 4.2.7.2.686 [facility] [id number] [address] 2020-05-07 2020-05-07 Orders Doctor BILL 1.2.840.114 [id number] 00:00:00 00:00:00 Only Unassigned, PATTY 350.1.13.10 [place] [facility] 4.2.7.2.686 [id number] 009 2020-02-20 2020-02-20 [facility] [id number] Univers 13:00:00 13:00:00 VANESA bourgeois [facility] 2020-02-10 2020-02-17 Hospital Gabriel Cavazos [facility] [id number] [facility] 11:05:00 16:30:00 Encounter Manuel Gimenez [facility] 2020-02-06 2020-02-06 Outpatient [facility] [id number] [facility] 00:00:00 00:00:00 2020-02-02 2020-02-02 [facility] 1027 [id number] Univers 15:20:00 15:20:[address] [facility] 2019-12-15 2019-12-15 Orders Doctor BILL [id number] 00:00:00 00:00:00 Only Unassigned, PATTY 350.1.13.10 [place] [facility] 4.2.7.2.686 [id number] 2019-12-11 2019-12-11 [facility] 1027 [id number] Univers 14:00:00 14:00:00 CESAR galindo [facility] 2019-11-21 2019-11-21 [facility] [id number] [id number] Univers 15:00:00 15:00:[address] [facility] 2019-11-21 2019-11-21 [facility] [id number] 08:57:41 09:37:41 ne Visit Vanesa Mendoza [id number] [place] 4.2.7.2.686 Professio [id number] [address] 2019-10-30 2019-10-30 [facility] [id number] 00:00:00 00:00:00 Vanesa Mendoza 350.1.13.10 [place] 4.2.7.2.686 Professio [id number] [address] 2019-10-22 2019-10-22 Outpatient R [facility] [id number] Univers 17:20:00 17:20:[address] [facility] 2019-10-17 2019-10-21 Outpatient X SEGUNDO, [facility] [id number] Univers 11:59:57 16:28:[address] [facility] 2019-09-11 2019-09-11 Outpatient R KAELYN, [facility] 1026 [id number] Univers 07:20:00 07:20:[address] [facility] 2019-09-08 2019-09-08 Emergency X ISABELLE, [facility] ERT [id number] Univers 15:36:09 17:50:[address] [facility] 2019-09-01 2019-09-01 Emergency X MORAIMA, [facility] ERT [id number] Univers 12:01:40 15:56:[address] [facility] 2019-08-25 2019-08-25 Outpatient R ERAN, [facility] [id number] Univers 14:45:00 14:45:[address] [facility] 2019-08-20 2019-08-20 Outpatient R ATASARKISSTORM, [facility] 1026 [id number] Univers 14:20:00 14:20:[address] [facility] Results Test Description Test Time Test Comments Results Result Comments Source LIPID PANEL 2022-10-12 22:43:02 Test Item Value Reference Range Interpretation Comme nts CHOLESTEROL (test code = 2210) 216 MG/DL <200 H TRIGLYCERIDES (test code = 2232) 236 MG/DL <150 H HDL CHOLESTEROL (test code = 63 MG/DL >39 2220) CALC LDL CHOL (test code = 2237) 117 MG/DL <100 H NOTE: CALCULATED LDL IS BASED ON BRANDI-PINON METHOD WHICHINCLUDES A DJUSTABLE TRIGLYCERIDE:VL DL CHOLESTEROL RATIO.THIS FACT OR VARIES BY MEASURED TRIGLY CERIDE AND NON-HDLCHOLESTE ROL CONCENTRATIONS WITH INCREASED CALCULATED LDL SEENIN HIGHER T RIGLYCERIDE OR LOWER NON-HDL S PECIMENS. FOR MOREINFORMATION , SEE CLIENT ANNOUNCEMENT AT [email or web address] RISK RATIO LDL/HDL (test code = 1.86 RATIO <3.22 2238) COMPREHENSIVE METABOLIC [id number] 22:43:02 Test Item Value Reference Range Interpretation Comments GLUCOSE (test code = 348 MG/DL 70-99 H 2216) BUN (test code = 15 MG/DL 8-23 2207) CREATININE (test 0.82 MG/DL 0.60-1.30 code = 221) eGFR (2020 CKD-EPI) 74 >60 (test code = 99521) ML/MIN/1.73 CALC BUN/CREAT (test 18 RATIO 6-28 code = 2235) SODIUM (test code = 137 MEQ/L 631-457 3974) POTASSIUM (test code 4.6 MEQ/L 3.5-5.4 = 2227) CHLORIDE (test code 95 MEQ/L 95-107 = 2214) CARBON DIOXIDE (test 24 MEQ/L 19-31 code = 220) CALCIUM (test code = 10.1 MG/DL 8.5-10.5 2208) PROTEIN, TOTAL (test 7.3 G/DL 6.1-8.3 code = 2228) ALBUMIN (test code = 4.4 G/DL 3.5-5.2 2200) CALC GLOBULIN (test 2.9 G/DL 1.9-3.7 code = 2240) CALC A/G RATIO (test 1.5 RATIO 1.0-2.6 code = 223) BILIRUBIN, TOTAL 1.1 MG/DL See_Comment [Automated message] (test code = 2207) The syste m which generated this result transmitted ref erence range: <=1.2. T he reference range was not used to int erpret this result as normal/abnormal . ALKALINE PHOSPHATASE 164 U/L 40-142 H (test code = 220) AST (test code = 15 U/L 9-40 2217) ALT (test code = 18 U/L 5-40 CPL sandhu s 2218) important patho logy staff changes effective 08/16. New patholo gy staff will prov archana uninterrupted, excellent patie nt care and clinic al consultation. S ee URL: [email or web address]. UNLE SS OTHERWISE INDIC ATED, ALL TESTING PER FORMED AT [facility] [employer] [place] [address] [place] [facility] DIRECTOR: Sabine AYON ALCIDES NUMBER [id number] CAP ACCREDITATION N O. [id number] HEMOGLOBIN [id number] 05:12:33 Test Item Value Reference Range Interpretation Comments HEMOGLOBIN A1c (test 13.2 % 4.2-5.6 H AMERIC AN DIABETES code = 15430) ASSOCIATION IDELINES FOR HGB A1C: PREDIABETES/INC REASED RISK . . . . . . . 5 .7-6.4% DIAGNOSIS OF DI ABETES . . . . . . . . . >=6 .5% WITH CONFIRMATION OR APPROPRIATE SYMPTOMS NOTE: ASSAY MAY BE AFFECTED BY HEMOGLOBINOPATH IES (SICKLE CELL ANEMIA, S- C DISEASE, OTHERS) OR SEAMUS FICIALLY LOWERED BY DECR EASED RED CELL SURVIVAL ( HEMOLYTIC ANEMIAS, BLOOD LOSS, ETC.). CONSIDER ALTERN ATE TESTING OR LABORATORY C ONSULTATION. POCT GLUCOSE (AUTOMATED)2022-07-27 13:24:36 Test Item Value Reference Range Interpretation Comments POCT GLU (test code = 8814183541) 254 mg/dL 70-110 H Lab Interpretation (test code = Abnormal 79126-8) [facility] 13:24:36 Test Item Value Reference Range Interpretation Comments POCT GLU (test code = 8918392869) 254 mg/dL 70-110 H Lab Interpretation (test code = Abnormal 31734-3) [facility] [ADDED]2022-04-22 00:00:00 Test Item Value Reference Range Interpretation Comments HEMOGLOBIN A1c (test code = 91587) 12.0 % HEMOGLOBIN A1c [ADDED]2022-04-22 00:00:00 Test Item Value Reference Range Interpretation Comments HEMOGLOBIN A1c (test code = 39176) 12.0 % HEMOGLOBIN A1c [ADDED]2022-04-22 00:00:00 Test Item Value Reference Range Interpretation Comments HEMOGLOBIN A1c (test code = 96402) 12.0 % LIPID PANEL [ADDED]2022-04-22 00:00:00 Test Item Value Reference Range Interpretation Comments CHOLESTEROL (test code = 2210) 150 MG/DL TRIGLYCERIDES (test code = 2232) 206 MG/DL HDL CHOLESTEROL (test code = 2220) 58 MG/DL CALC LDL CHOL (test code = 2237) 65 MG/DL RISK RATIO LDL/HDL (test code = 1.12 RATIO 2238) LIPID PANEL [ADDED]2022-04-22 00:00:00 Test Item Value Reference Range Interpretation Comments CHOLESTEROL (test code = 2210) 150 MG/DL TRIGLYCERIDES (test code = 2232) 206 MG/DL HDL CHOLESTEROL (test code = 2220) 58 MG/DL CALC LDL CHOL (test code = 2237) 65 MG/DL RISK RATIO LDL/HDL (test code = 1.12 RATIO 2238) COMPREHENSIVE METABOLIC PANEL [ADDED]2022-04-22 00:00:00 Test Item Value Reference Range Interpretation Comments GLUCOSE (test code = 2217) 267 MG/DL BUN (test code = 2208) 19 MG/DL CREATININE (test code = 2214) 0.78 MG/DL eGFR (2020 CKD-EPI) (test code 79 ML/MIN/1.73 = 77102) CALC BUN/CREAT (test code = 24 RATIO 2235) SODIUM (test code = 2231) 139 MEQ/L POTASSIUM (test code = 2228) 4.8 MEQ/L CHLORIDE (test code = 2215) 100 MEQ/L CARBON DIOXIDE (test code = 28 MEQ/L 2205) CALCIUM (test code = 2209) 9.7 MG/DL PROTEIN, TOTAL (test code = 7.1 G/DL 2228) ALBUMIN (test code = 2201) 4.1 G/DL CALC GLOBULIN (test code = 3.0 G/DL 2240) CALC A/G RATIO (test code = 1.4 RATIO 2234) BILIRUBIN, TOTAL (test code = 1.2 MG/DL 2207) ALKALINE PHOSPHATASE (test 120 U/L code = 2204) AST (test code = 2218) 22 U/L ALT (test code = 2219) 23 U/L COMPREHENSIVE METABOLIC PANEL [ADDED]2022-04-22 00:00:00 Test Item Value Reference Range Interpretation Comments GLUCOSE (test code = 2217) 267 MG/DL BUN (test code = 2208) 19 MG/DL CREATININE (test code = 2214) 0.78 MG/DL eGFR (2020 CKD-EPI) (test code 79 ML/MIN/1.73 = 95586) CALC BUN/CREAT (test code = 24 RATIO 2235) SODIUM (test code = 2231) 139 MEQ/L POTASSIUM (test code = 2228) 4.8 MEQ/L CHLORIDE (test code = 2215) 100 MEQ/L CARBON DIOXIDE (test code = 28 MEQ/L 2205) CALCIUM (test code = 2209) 9.7 MG/DL PROTEIN, TOTAL (test code = 7.1 G/DL 2228) ALBUMIN (test code = 2201) 4.1 G/DL CALC GLOBULIN (test code = 3.0 G/DL 2239) CALC A/G RATIO (test code = 1.4 RATIO 2233) BILIRUBIN, TOTAL (test code = 1.2 MG/DL 2206) ALKALINE PHOSPHATASE (test 120 U/L code = 2204) AST (test code = 2218) 22 U/L ALT (test code = 2219) 23 U/L URIC ACID [ADDED]2022-04-22 00:00:00 Test Item Value Reference Range Interpretation Comments URIC ACID (test code = 2233) 5.0 MG/DL URIC ACID [ADDED]2022-04-22 00:00:00 Test Item Value Reference Range Interpretation Comments URIC ACID (test code = 2233) 5.0 MG/DL HEMOGLOBIN A1c [ADDED]2021-12-22 00:00:00 Test Item Value Reference Range Interpretation Comments HEMOGLOBIN A1c (test code = 59114) 10.5 % HEMOGLOBIN A1c [ADDED]2021-12-22 00:00:00 Test Item Value Reference Range Interpretation Comments HEMOGLOBIN A1c (test code = 21095) 10.5 % HEMOGLOBIN A1c [ADDED]2021-12-22 00:00:00 Test Item Value Reference Range Interpretation Comments HEMOGLOBIN A1c (test code = 83612) 10.5 % LIPID PANEL [ADDED]2021-12-22 00:00:00 Test Item Value Reference Range Interpretation Comments CHOLESTEROL (test code = 2210) 134 MG/DL TRIGLYCERIDES (test code = 2232) 107 MG/DL HDL CHOLESTEROL (test code = 2220) 71 MG/DL CALC LDL CHOL (test code = 2237) 44 MG/DL RISK RATIO LDL/HDL (test code = 0.62 RATIO 8) LIPID PANEL [ADDED]2021-12-22 00:00:00 Test Item Value Reference Range Interpretation Comments CHOLESTEROL (test code = 2210) 134 MG/DL TRIGLYCERIDES (test code = 2232) 107 MG/DL HDL CHOLESTEROL (test code = 2220) 71 MG/DL CALC LDL CHOL (test code = 2237) 44 MG/DL RISK RATIO LDL/HDL (test code = 0.62 RATIO 2238) COMPREHENSIVE METABOLIC PANEL [ADDED]2021-12-22 00:00:00 Test Item Value Reference Range Interpretation Comments GLUCOSE (test code = 2217) 217 MG/DL BUN (test code = 2208) 19 MG/DL CREATININE (test code = 2214) 0.82 MG/DL eGFR (2020 CKD-EPI) (test code 75 ML/MIN/1.73 = 32883) CALC BUN/CREAT (test code = 23 RATIO 2235) SODIUM (test code = 2231) 141 MEQ/L POTASSIUM (test code = 2228) 4.4 MEQ/L CHLORIDE (test code = 2215) 101 MEQ/L CARBON DIOXIDE (test code = 28 MEQ/L 220) CALCIUM (test code = 2209) 9.3 MG/DL PROTEIN, TOTAL (test code = 7.0 G/DL 2228) ALBUMIN (test code = 2201) 4.2 G/DL CALC GLOBULIN (test code = 2.8 G/DL 224) CALC A/G RATIO (test code = 1.5 RATIO 2234) BILIRUBIN, TOTAL (test code = 1.5 MG/DL 2206) ALKALINE PHOSPHATASE (test 121 U/L code = 2204) AST (test code = 2218) 17 U/L ALT (test code = 2219) 21 U/L COMPREHENSIVE METABOLIC PANEL [ADDED]2021-12-22 00:00:00 Test Item Value Reference Range Interpretation Comments GLUCOSE (test code = 2217) 217 MG/DL BUN (test code = 2208) 19 MG/DL CREATININE (test code = 2214) 0.82 MG/DL eGFR (2020 CKD-EPI) (test code 75 ML/MIN/1.73 = 09798) CALC BUN/CREAT (test code = 23 RATIO 2235) SODIUM (test code = 2231) 141 MEQ/L POTASSIUM (test code = 2228) 4.4 MEQ/L CHLORIDE (test code = 2215) 101 MEQ/L CARBON DIOXIDE (test code = 28 MEQ/L 2206) CALCIUM (test code = 2209) 9.3 MG/DL PROTEIN, TOTAL (test code = 7.0 G/DL 222) ALBUMIN (test code = 2201) 4.2 G/DL CALC GLOBULIN (test code = 2.8 G/DL 2240) CALC A/G RATIO (test code = 1.5 RATIO 2234) BILIRUBIN, TOTAL (test code = 1.5 MG/DL 2207) ALKALINE PHOSPHATASE (test 121 U/L code = 2204) AST (test code = 2218) 17 U/L ALT (test code = 2219) 21 U/L URIC ACID [ADDED]2021-12-22 00:00:00 Test Item Value Reference Range Interpretation Comments URIC ACID (test code = 2233) 4.5 MG/DL URIC ACID [ADDED]2021-12-22 00:00:00 Test Item Value Reference Range Interpretation Comments URIC ACID (test code = 2233) 4.5 MG/DL HEMOGLOBIN A1c [ADDED]2021-12-22 00:00:00 Test Item Value Reference Range Interpretation Comments HEMOGLOBIN A1c (test code = 99049) 10.5 % HEMOGLOBIN A1c [ADDED]2021-12-22 00:00:00 Test Item Value Reference Range Interpretation Comments HEMOGLOBIN A1c (test code = 80312) 10.5 % HEMOGLOBIN A1c [ADDED]2021-12-22 00:00:00 Test Item Value Reference Range Interpretation Comments HEMOGLOBIN A1c (test code = 97749) 10.5 % LIPID PANEL [ADDED]2021-12-22 00:00:00 Test Item Value Reference Range Interpretation Comments CHOLESTEROL (test code = 2210) 134 MG/DL TRIGLYCERIDES (test code = 2232) 107 MG/DL HDL CHOLESTEROL (test code = 2220) 71 MG/DL CALC LDL CHOL (test code = 2237) 44 MG/DL RISK RATIO LDL/HDL (test code = 0.62 RATIO 2238) LIPID PANEL [ADDED]2021-12-22 00:00:00 Test Item Value Reference Range Interpretation Comments CHOLESTEROL (test code = 2210) 134 MG/DL TRIGLYCERIDES (test code = 2232) 107 MG/DL HDL CHOLESTEROL (test code = 2220) 71 MG/DL CALC LDL CHOL (test code = 2237) 44 MG/DL RISK RATIO LDL/HDL (test code = 0.62 RATIO 2238) COMPREHENSIVE METABOLIC PANEL [ADDED]2021-12-22 00:00:00 Test Item Value Reference Range Interpretation Comments GLUCOSE (test code = 2217) 217 MG/DL BUN (test code = 2208) 19 MG/DL CREATININE (test code = 2214) 0.82 MG/DL eGFR (2020 CKD-EPI) (test code 75 ML/MIN/1.73 = 97045) CALC BUN/CREAT (test code = 23 RATIO 2235) SODIUM (test code = 2231) 141 MEQ/L POTASSIUM (test code = 2228) 4.4 MEQ/L CHLORIDE (test code = 2215) 101 MEQ/L CARBON DIOXIDE (test code = 28 MEQ/L 2206) CALCIUM (test code = 2209) 9.3 MG/DL PROTEIN, TOTAL (test code = 7.0 G/DL 2228) ALBUMIN (test code = 2201) 4.2 G/DL CALC GLOBULIN (test code = 2.8 G/DL 2240) CALC A/G RATIO (test code = 1.5 RATIO 2234) BILIRUBIN, TOTAL (test code = 1.5 MG/DL 2206) ALKALINE PHOSPHATASE (test 121 U/L code = 2204) AST (test code = 2218) 17 U/L ALT (test code = 2219) 21 U/L COMPREHENSIVE METABOLIC PANEL [ADDED]2021-12-22 00:00:00 Test Item Value Reference Range Interpretation Comments GLUCOSE (test code = 2217) 217 MG/DL BUN (test code = 2208) 19 MG/DL CREATININE (test code = 2214) 0.82 MG/DL eGFR (2020 CKD-EPI) (test code 75 ML/MIN/1.73 = 74558) CALC BUN/CREAT (test code = 23 RATIO 2235) SODIUM (test code = 2231) 141 MEQ/L POTASSIUM (test code = 2228) 4.4 MEQ/L CHLORIDE (test code = 2215) 101 MEQ/L CARBON DIOXIDE (test code = 28 MEQ/L 2206) CALCIUM (test code = 2209) 9.3 MG/DL PROTEIN, TOTAL (test code = 7.0 G/DL 2228) ALBUMIN (test code = 2201) 4.2 G/DL CALC GLOBULIN (test code = 2.8 G/DL 2240) CALC A/G RATIO (test code = 1.5 RATIO 2234) BILIRUBIN, TOTAL (test code = 1.5 MG/DL 220) ALKALINE PHOSPHATASE (test 121 U/L code = 2204) AST (test code = 2218) 17 U/L ALT (test code = 2219) 21 U/L URIC ACID [ADDED]2021-12-22 00:00:00 Test Item Value Reference Range Interpretation Comments URIC ACID (test code = 2233) 4.5 MG/DL URIC ACID [ADDED]2021-12-22 00:00:00 Test Item Value Reference Range Interpretation Comments URIC ACID (test code = 2233) 4.5 MG/DL POC-Glucose [id number] 08:10:14 Test Item Value Reference Range Interpretation Comments POC-Glucose Meter (test 190 mg/dL 70-110 H : TE STED AT [facility] code = 1538) [address] [place] [address], [facility] 30: Latex Spooler/Techni herson ID = [id number] for Juancarlos Cruz on Lab Interpretation (test Abnormal code = 52203-5) [facility]-Glucose [id number] 08:10:14 Test Item Value Reference Range Interpretation Comments POC-Glucose Meter (test 190 mg/dL 70-110 H : TE STED AT [facility] code = 1538) [address] [place] [address], 770 30: Latex Spooler/Techni herson ID = [id number] for Anthoyn Marl on Lab Interpretation (test Abnormal code = 86766-2) [facility]-Glucose [id number] 08:10:14 Test Item Value Reference Range Interpretation Comments POC-Glucose Meter (test 190 mg/dL 70-110 H : TE STED AT [facility] code = 1538) [address] [place] [address], 770 30: Latex Spooler/Techni herson ID = [id number] for Juancarlos Cruz on Lab Interpretation (test Abnormal code = 09625-3) [facility]-Glucose [id number] 08:10:14 Test Item Value Reference Range Interpretation Comments POC-Glucose Meter (test 190 mg/dL 70-110 H : TE STED AT [facility] code = 1538) [address] [place] [address], 770 30: Latex Spooler/Techni herson ID = [id number] for Shruthi Cruzl on Lab Interpretation (test Abnormal code = 76869-4) [facility]-Glucose [id number] 08:10:14 Test Item Value Reference Range Interpretation Comments POC-Glucose Meter (test 190 mg/dL 70-110 H : TE STED AT [facility] code = 1538) [address] [facility], 770 30: Latex Spooler/Techni herson ID = [id number] for Juancarlos Cruz on Lab Interpretation (test Abnormal code = 68837-4) [facility] [id number] 08:10:14 Test Item Value Reference Range Interpretation Comments POC-Glucose Meter (test 190 mg/dL 70-110 H : TE STED AT [facility] code = 1538) [address] [facility], 770 30: Latex Spooler/Techni herson ID = [id number] for Juancarlos Cruz on Lab Interpretation (test Abnormal code = 49538-6) [facility]-GLUCOSE [id number] 08:10:14 Test Item Value Reference Range Interpretation Comments POC-GLUCOSE METER 190 mg/dL 70-110 H : TESTED A T [facility] 6720 (BEAKER) (test code = [facility], 153) [address]: Latex Spooler/Techni herson ID = [id number] for Do olesyaJose orozcon POCT-GLUCOSE [id number] 21:35:17 Test Item Value Reference Range Interpretation Comments POC-GLUCOSE METER 218 mg/dL 70-110 H : TESTED A T [facility] 6720 (BEAKER) (test code = [facility], 153) 844[address]: Latex Spooler/Techni herson ID = [id number] for LINDA BAHLO POCT-GLUCOSE [id number] 17:04:53 Test Item Value Reference Range Interpretation Comments POC-GLUCOSE METER 226 mg/dL 70-110 H : TESTED A T [facility] 6720 (BEAKER) (test code = [facility], 1538) 50565: Latex Spooler/Techni herson ID = [id number] for Sa ntos, Chante POCT-GLUCOSE [id number] 12:23:58 Test Item Value Reference Range Interpretation Comments POC-GLUCOSE METER 261 mg/dL 70-110 H : TESTED A T [facility] 6720 (BEAKER) (test code = [facility], 153) 41395: Latex Spooler/Techni herson ID = [id number] for Sa ntos, Chante POCT-GLUCOSE [id number] 08:18:47 Test Item Value Reference Range Interpretation Comments POC-GLUCOSE METER 255 mg/dL 70-110 H : [facility] ([facility] (test code = [place], 1538) [address]: Latex Spooler/Techni herson ID = [id number] for Chante Henao Basic Metabolic [id number] 01:50:06 Test Item Value Reference Range Interpretation Comments Sodium (test code = 131 meq/L 136-145 L 2951-2) Potassium (test code = 3.9 meq/L 3.5-5.1 2823-3) Chloride (test code = 99 meq/L 98-107 2075-0) CO2 (test code = 24 meq/L -29 2027-9) BUN (test code = 23 mg/dL 7-21 H 3094-0) Creatinine (test code 1.05 mg/dL 0.57-1.25 = 2160-0) Glucose (test code = 320 mg/dL 70-105 H 2345-7) Calcium (test code = 8.8 mg/dL 8.4-10.2 10929-4) EGFR (test code = 51 mL/min/1.73 [place] [address]-0) NOT ACCURATE CREATININE CLEARANCE IN PREDICTING GLOMERULAR FILTRATION RATE . ESTIMATED GFR I S NOT APPLICABLE FOR DIALYSIS PATIENTS. BASIA (test code = BASIA) Latex Spooler ID - BS Lab Interpretation Abnormal (test code = 02864-3) [facility] [id number] 01:50:06 Test Item Value Reference Range Interpretation Comments Sodium (test code = 131 meq/L 136-145 L 2951-2) Potassium (test code = 3.9 meq/L 3.5-5.1 2823-3) Chloride (test code = 99 meq/L 98-107 2075-0) CO2 (test code = 24 meq/L -29 2027-9) BUN (test code = 23 mg/dL 7-21 H 3094-0) Creatinine (test code 1.05 mg/dL 0.57-1.25 = 2160-0) Glucose (test code = 320 mg/dL 70-105 H 2345-7) Calcium (test code = 8.8 mg/dL 8.4-10.2 30040-5) EGFR (test code = 51 mL/min/1.[place] [address]-8) NOT ACCURATE CREATININE CLEARANCE IN PREDICTING GLOMERULAR FILTRATION RATE . ESTIMATED GFR I S NOT APPLICABLE FOR DIALYSIS PATIENTS. BASIA (test code = BASIA) Latex Spooler ID - BS Lab Interpretation Abnormal (test code = 40651-1) [facility] Metabolic [id number] 01:50:06 Test Item Value Reference Range Interpretation Comments Sodium (test code = 131 meq/L 136-145 L 2951-2) Potassium (test code = 3.9 meq/L 3.5-5.1 2823-3) Chloride (test code = 99 meq/L 98-107 2075-0) CO2 (test code = 24 meq/L -2027-9) BUN (test code = 23 mg/dL 7-21 H 3094-0) Creatinine (test code 1.05 mg/dL 0.57-1.25 = 2160-0) Glucose (test code = 320 mg/dL 70-105 H 2345-7) Calcium (test code = 8.8 mg/dL 8.4-10.2 57876-2) EGFR (test code = 51 mL/min/1.73 [place] [address]-3) NOT ACCURATE CREATININE CLEARANCE IN PREDICTING GLOMERULAR FILTRATION RATE . ESTIMATED GFR I S NOT APPLICABLE FOR DIALYSIS PATIENTS. BASIA (test code = BASIA) Latex Spooler ID - BS Lab Interpretation Abnormal (test code = 88063-1) [facility] Metabolic [id number] 01:50:06 Test Item Value Reference Range Interpretation Comments Sodium (test code = 131 meq/L 136-145 L 2951-2) Potassium (test code = 3.9 meq/L 3.5-5.1 2823-3) Chloride (test code = 99 meq/L 98-107 2075-0) CO2 (test code = 24 meq/L -2027-9) BUN (test code = 23 mg/dL 7-21 H 3094-0) Creatinine (test code 1.05 mg/dL 0.57-1.25 = 2160-0) Glucose (test code = 320 mg/dL 70-105 H 2345-7) Calcium (test code = 8.8 mg/dL 8.4-10.2 23845-2) EGFR (test code = 51 mL/min/1.[place] [address]-8) NOT ACCURATE CREATININE CLEARANCE IN PREDICTING GLOMERULAR FILTRATION RATE . ESTIMATED GFR I S NOT APPLICABLE FOR DIALYSIS PATIENTS. BASIA (test code = BASIA) Latex Spooler ID - BS Lab Interpretation Abnormal (test code = 42300-7) [facility] Metabolic [id number] 01:50:06 Test Item Value Reference Range Interpretation Comments Sodium (test code = 131 meq/L 136-145 L 2951-2) Potassium (test code = 3.9 meq/L 3.5-5.1 2823-3) Chloride (test code = 99 meq/L 98-107 5-0) CO2 (test code = 24 meq/L -2027-) BUN (test code = 23 mg/dL 7-21 H 3094-0) Creatinine (test code 1.05 mg/dL 0.57-1.25 = 2160-0) Glucose (test code = 320 mg/dL 70-105 H 2345-7) Calcium (test code = 8.8 mg/dL 8.4-10.2 81996-8) EGFR (test code = 51 mL/min/1.[place] [address]-3) NOT ACCURATE CREATININE CLEARANCE IN PREDICTING GLOMERULAR FILTRATION RATE . ESTIMATED GFR I S NOT APPLICABLE FOR DIALYSIS PATIENTS. BASIA (test code = BASIA) [employer] Spooler ID - BS Lab Interpretation Abnormal (test code = 51606-6) [facility] Metabolic [id number] 01:50:06 Test Item Value Reference Range Interpretation Comments Sodium (test code = 131 meq/L 136-145 L 2951-2) Potassium (test code = 3.9 meq/L 3.5-5.1 2823-3) Chloride (test code = 99 meq/L 98-107 5-0) CO2 (test code = 24 meq/L -29 2027-9) BUN (test code = 23 mg/dL 7-21 H 3094-0) Creatinine (test code 1.05 mg/dL 0.57-1.25 = 2160-0) Glucose (test code = 320 mg/dL 70-105 H 2345-7) Calcium (test code = 8.8 mg/dL 8.4-10.2 83367-5) EGFR (test code = 51 mL/min/1.[place] [address]-5) NOT ACCURATE CREATININE CLEARANCE IN PREDICTING GLOMERULAR FILTRATION RATE . ESTIMATED GFR I S NOT APPLICABLE FOR DIALYSIS PATIENTS. BASIA (test code = BASIA) [employer] Spooler ID - BS Lab Interpretation Abnormal (test code = 71472-1) [facility] [id number] 01:50:06 Test Item Value Reference Range Interpretation [...] S NOT APPLICABLE FOR DIALYSIS PATIEN TS. Latex Spooler ID - [id number] 01:17:47 Test Item Value Reference Range Interpretation Comments PTT (test code = 88.6 See_Comment H [Automated message] 25954-6) The system [employer] generated this result transmitted ref erence range: 22.5 - 3 6.0 seconds. The reference range was not used to int erpret this result as normal/abnormal . Lab Interpretation (test Abnormal code = 90120-9) [facility] 01:17:47 Test Item Value Reference Range Interpretation Comments PTT (test code = 88.6 See_Comment H [Automated message] 75560-8) The system [employer] generated this result transmitted ref erence range: 22.5 - 3 6.0 seconds. The reference range was not used to int erpret this result as normal/abnormal . Lab Interpretation (test Abnormal code = 26876-9) [place] [id number] 01:17:47 Test Item Value Reference Range Interpretation Comments PTT (test code = 88.6 See_Comment H [Automated message] 04781-3) The system [employer] generated this result transmitted ref erence range: 22.5 - 3 6.0 seconds. The reference range was not used to int erpret this result as normal/abnormal . Lab Interpretation (test Abnormal code = 03902-9) [facility] Test Item Value Reference Range Interpretation Comments PTT (test code = 88.6 See_Comment H [Automated message] 76194-2) The system [employer] generated this result transmitted ref erence range: 22.5 - 3 6.0 seconds. The reference range was not used to int erpret this result as normal/abnormal . Lab Interpretation (test Abnormal code = 40891-0) [facility]47 Test Item Value Reference Range Interpretation Comments PTT (test code = 88.6 See_Comment H [Automated message] 86674-8) The system [employer] generated this result transmitted ref erence range: 22.5 - 3 6.0 seconds. The reference range was not used to int erpret this result as normal/abnormal . Lab Interpretation (test Abnormal code = 68402-7) [facility] Test Item Value Reference Range Interpretation Comments PTT (test code = 88.6 See_Comment H [Automated message] 67055-9) The system [employer] generated this result transmitted ref erence range: 22.5 - 3 6.0 seconds. The reference range was not used to int erpret this result as normal/abnormal . Lab Interpretation (test Abnormal code = 28968-7) [place] [id number] 01:17:47 Test Item Value Reference Range Interpretation Comments PARTIAL THROMBOPLASTIN TIME 88.6 seconds 22.5-36.0 H (BEAKER) (test code = 760) CBC with platelet count + automated [id number] 01:11:45 Test Item Value Reference Range Interpretation Comments WBC (test code = 6690-2) 11.4 See_Comment H [A utomated message] The system [employer] generated this result transmitted ref erence range: 3.5 - 10 .5 K/L. The refe rence range was not u sed to interpret this result as normal/abnor mal. RBC (test code = 789-8) 4.13 See_Comment [Au tomated message] The system [employer] generated this result transmitted ref erence range: 3.93 - 5 .22 M/L. The refe rence range was not u sed to interpret this result as normal/abnor mal. MCHC (test code = 786-4) 33.1 See_Comment [A utomated message] The system [employer] generated this result transmitted ref erence range: 32.2 - 3 5.5 GM/DL. The refe rence range was not u sed to interpret this result as normal/abnor mal. Hematocrit (test code = 37.2 % 34.1-44.9 4544-3) MCV (test code = 787-2) 90.1 fL 79.4-94.8 MCH (test code = 785-6) 29.8 pg 25.6-32.2 RDW (test code = 788-0) 11.9 % 11.7-14.4 Platelets (test code = 267 See_Comment [Aut omated message] 777-3) The system [employer] generated this result transmitted ref erence range: 150 - 45 0 K/CU MM. The referen ce range was not u sed to interpret this result as normal/abnor mal. MPV (test code = 10.3 fL 9.4-12.3 63531-3) nRBC (test code = 413) 0 See_Comment [Aut omated message] The system [employer] generated this result transmitted ref erence range: 0 - 0 /1 00 WBC. The refere nce range was not u sed to interpret this result as normal/abnor mal. % Neutros (test code = 53 % 429) % Lymphs (test code = 38 % 430) % Monos (test code = 6 % 431) % Eos (test code = 432) 2 % % Baso (test code = 437) 0 % # Neutros (test code = 6.11 See_Comment [Aut omated message] 670) The system [employer] generated this result transmitted ref erence range: 1.56 - 6 .13 K/L. The refe rence range was not u sed to interpret this result as normal/abnor mal. # Lymphs (test code = 4.32 See_Comment H [Auto mated message] 414) The system [employer] generated this result transmitted ref erence range: 1.18 - 3 .74 K/L. The refe rence range was not u sed to interpret this result as normal/abnor mal. # Monos (test code = 0.71 See_Comment H [Autom ated message] 415) The system [employer] generated this result transmitted ref erence range: 0.24 - 0 .36 K/L. The refe rence range was not u sed to interpret this result as normal/abnor mal. # Eos (test code = 416) 0.20 See_Comment [Au tomated message] The system [employer] generated this result transmitted ref erence range: 0.04 - 0 .36 K/L. The refe rence range was not u sed to interpret this result as normal/abnor mal. # Baso (test code = 417) 0.04 See_Comment [A utomated message] The system [employer] generated this result transmitted ref erence range: 0.01 - 0 .08 K/L. The refe rence range was not u sed to interpret this result as normal/abnor mal. Immature 0 % 0-1 Granulocytes-Relative (test code = 2801) Lab Interpretation (test Abnormal code = 44970-1) [facility] with platelet count + automated [id number] 01:11:45 Test Item Value Reference Range Interpretation Comments WBC (test code = 6690-2) 11.4 See_Comment H [A utomated message] The system [employer] generated this result transmitted ref erence range: 3.5 - 10 .5 K/L. The refe rence range was not u sed to interpret this result as normal/abnor mal. RBC (test code = 789-8) 4.13 See_Comment [Au tomated message] The system [employer] generated this result transmitted ref erence range: 3.93 - 5 .22 M/L. The refe rence range was not u sed to interpret this result as normal/abnor mal. MCHC (test code = 786-4) 33.1 See_Comment [A utomated message] The system [employer] generated this result transmitted ref erence range: 32.2 - 3 5.5 GM/DL. The refe rence range was not u sed to interpret this result as normal/abnor mal. Hematocrit (test code = 37.2 % 34.1-44.9 4544-3) MCV (test code = 787-2) 90.1 fL 79.4-94.8 MCH (test code = 785-6) 29.8 pg 25.6-32.2 RDW (test code = 788-0) 11.9 % 11.7-14.4 Platelets (test code = 267 See_Comment [Aut omated message] 777-3) The system [employer] generated this result transmitted ref erence range: 150 - 45 0 K/CU MM. The referen ce range was not u sed to interpret this result as normal/abnor mal. MPV (test code = 10.3 fL 9.4-12.3 73809-5) nRBC (test code = 413) 0 See_Comment [Aut omated message] The system [employer] generated this result transmitted ref erence range: 0 - 0 /1 00 WBC. The refere nce range was not u sed to interpret this result as normal/abnor mal. % Neutros (test code = 53 % 429) % Lymphs (test code = 38 % 430) % Monos (test code = 6 % 431) % Eos (test code = 432) 2 % % Baso (test code = 437) 0 % # Neutros (test code = 6.11 See_Comment [Aut omated message] 670) The system [employer] generated this result transmitted ref erence range: 1.56 - 6 .13 K/L. The refe rence range was not u sed to interpret this result as normal/abnor mal. # Lymphs (test code = 4.32 See_Comment H [Auto mated message] 414) The system [employer] generated this result transmitted ref erence range: 1.18 - 3 .74 K/L. The refe rence range was not u sed to interpret this result as normal/abnor mal. # Monos (test code = 0.71 See_Comment H [Autom ated message] 415) The system [employer] generated this result transmitted ref erence range: 0.24 - 0 .36 K/L. The refe rence range was not u sed to interpret this result as normal/abnor mal. # Eos (test code = 416) 0.20 See_Comment [Au tomated message] The system [employer] generated this result transmitted ref erence range: 0.04 - 0 .36 K/L. The refe rence range was not u sed to interpret this result as normal/abnor mal. # Baso (test code = 417) 0.04 See_Comment [A utomated message] The system [employer] generated this result transmitted ref erence range: 0.01 - 0 .08 K/L. The refe rence range was not u sed to interpret this result as normal/abnor mal. Immature 0 % 0-1 Granulocytes-Relative (test code = 2801) Lab Interpretation (test Abnormal code = 65588-1) [facility] with platelet count + automated [id number] 01:11:45 Test Item Value Reference Range Interpretation Comments WBC (test code = 6690-2) 11.4 See_Comment H [A utomated message] The system [employer] generated this result transmitted ref erence range: 3.5 - 10 .5 K/L. The refe rence range was not u sed to interpret this result as normal/abnor mal. RBC (test code = 789-8) 4.13 See_Comment [Au tomated message] The system [employer] generated this result transmitted ref erence range: 3.93 - 5 .22 M/L. The refe rence range was not u sed to interpret this result as normal/abnor mal. MCHC (test code = 786-4) 33.1 See_Comment [A utomated message] The system [employer] generated this result transmitted ref erence range: 32.2 - 3 5.5 GM/DL. The refe rence range was not u sed to interpret this result as normal/abnor mal. Hematocrit (test code = 37.2 % 34.1-44.9 4544-3) MCV (test code = 787-2) 90.1 fL 79.4-94.8 MCH (test code = 785-6) 29.8 pg 25.6-32.2 RDW (test code = 788-0) 11.9 % 11.7-14.4 Platelets (test code = 267 See_Comment [Aut omated message] 777-3) The system [employer] generated this result transmitted ref erence range: 150 - 45 0 K/CU MM. The referen ce range was not u sed to interpret this result as normal/abnor mal. MPV (test code = 10.3 fL 9.4-12.3 62196-3) nRBC (test code = 413) 0 See_Comment [Aut omated message] The system [employer] generated this result transmitted ref erence range: 0 - 0 /1 00 WBC. The refere nce range was not u sed to interpret this result as normal/abnor mal. % Neutros (test code = 53 % 429) % Lymphs (test code = 38 % 430) % Monos (test code = 6 % 431) % Eos (test code = 432) 2 % % Baso (test code = 437) 0 % # Neutros (test code = 6.11 See_Comment [Aut omated message] 670) The system [employer] generated this result transmitted ref erence range: 1.56 - 6 .13 K/L. The refe rence range was not u sed to interpret this result as normal/abnor mal. # Lymphs (test code = 4.32 See_Comment H [Auto mated message] 414) The system [employer] generated this result transmitted ref erence range: 1.18 - 3 .74 K/L. The refe rence range was not u sed to interpret this result as normal/abnor mal. # Monos (test code = 0.71 See_Comment H [Autom ated message] 415) The system [employer] generated this result transmitted ref erence range: 0.24 - 0 .36 K/L. The refe rence range was not u sed to interpret this result as normal/abnor mal. # Eos (test code = 416) 0.20 See_Comment [Au tomated message] The system [employer] generated this result transmitted ref erence range: 0.04 - 0 .36 K/L. The refe rence range was not u sed to interpret this result as normal/abnor mal. # Baso (test code = 417) 0.04 See_Comment [A utomated message] The system [employer] generated this result transmitted ref erence range: 0.01 - 0 .08 K/L. The refe rence range was not u sed to interpret this result as normal/abnor mal. Immature 0 % 0-1 Granulocytes-Relative (test code = 2801) Lab Interpretation (test Abnormal code = 47967-8) [facility] with platelet count + automated [id number] 01:11:45 Test Item Value Reference Range Interpretation Comments WBC (test code = 6690-2) 11.4 See_Comment H [A utomated message] The system [employer] generated this result transmitted ref erence range: 3.5 - 10 .5 K/L. The refe rence range was not u sed to interpret this result as normal/abnor mal. RBC (test code = 789-8) 4.13 See_Comment [Au tomated message] The system [employer] generated this result transmitted ref erence range: 3.93 - 5 .22 M/L. The refe rence range was not u sed to interpret this result as normal/abnor mal. MCHC (test code = 786-4) 33.1 See_Comment [A utomated message] The system [employer] generated this result transmitted ref erence range: 32.2 - 3 5.5 GM/DL. The refe rence range was not u sed to interpret this result as normal/abnor mal. Hematocrit (test code = 37.2 % 34.1-44.9 4544-3) MCV (test code = 787-2) 90.1 fL 79.4-94.8 MCH (test code = 785-6) 29.8 pg 25.6-32.2 RDW (test code = 788-0) 11.9 % 11.7-14.4 Platelets (test code = 267 See_Comment [Aut omated message] 777-3) The system [employer] generated this result transmitted ref erence range: 150 - 45 0 K/CU MM. The referen ce range was not u sed to interpret this result as normal/abnor mal. MPV (test code = 10.3 fL 9.4-12.3 45030-0) nRBC (test code = 413) 0 See_Comment [Aut omated message] The system [employer] generated this result transmitted ref erence range: 0 - 0 /1 00 WBC. The refere nce range was not u sed to interpret this result as normal/abnor mal. % Neutros (test code = 53 % 429) % Lymphs (test code = 38 % 430) % Monos (test code = 6 % 431) % Eos (test code = 432) 2 % % Baso (test code = 437) 0 % # Neutros (test code = 6.11 See_Comment [Aut omated message] 670) The system [employer] generated this result transmitted ref erence range: 1.56 - 6 .13 K/L. The refe rence range was not u sed to interpret this result as normal/abnor mal. # Lymphs (test code = 4.32 See_Comment H [Auto mated message] 414) The system [employer] generated this result transmitted ref erence range: 1.18 - 3 .74 K/L. The refe rence range was not u sed to interpret this result as normal/abnor mal. # Monos (test code = 0.71 See_Comment H [Autom ated message] 415) The system [employer] generated this result transmitted ref erence range: 0.24 - 0 .36 K/L. The refe rence range was not u sed to interpret this result as normal/abnor mal. # Eos (test code = 416) 0.20 See_Comment [Au tomated message] The system [employer] generated this result transmitted ref erence range: 0.04 - 0 .36 K/L. The refe rence range was not u sed to interpret this result as normal/abnor mal. # Baso (test code = 417) 0.04 See_Comment [A utomated message] The system [employer] generated this result transmitted ref erence range: 0.01 - 0 .08 K/L. The refe rence range was not u sed to interpret this result as normal/abnor mal. Immature 0 % 0-1 Granulocytes-Relative (test code = 2801) Lab Interpretation (test Abnormal code = 81521-6) [facility] with platelet count + automated [id number] 01:11:45 Test Item Value Reference Range Interpretation Comments WBC (test code = 6690-2) 11.4 See_Comment H [A utomated message] The system [employer] generated this result transmitted ref erence range: 3.5 - 10 .5 K/L. The refe rence range was not u sed to interpret this result as normal/abnor mal. RBC (test code = 789-8) 4.13 See_Comment [Au tomated message] The system [employer] generated this result transmitted ref erence range: 3.93 - 5 .22 M/L. The refe rence range was not u sed to interpret this result as normal/abnor mal. MCHC (test code = 786-4) 33.1 See_Comment [A utomated message] The system [employer] generated this result transmitted ref erence range: 32.2 - 3 5.5 GM/DL. The refe rence range was not u sed to interpret this result as normal/abnor mal. Hematocrit (test code = 37.2 % 34.1-44.9 4544-3) MCV (test code = 787-2) 90.1 fL 79.4-94.8 MCH (test code = 785-6) 29.8 pg 25.6-32.2 RDW (test code = 788-0) 11.9 % 11.7-14.4 Platelets (test code = 267 See_Comment [Aut omated message] 657-3) The system [employer] generated this result transmitted ref erence range: 150 - 45 0 K/CU MM. The referen ce range was not u sed to interpret this result as normal/abnor mal. MPV (test code = 10.3 fL 9.4-12.3 38579-0) nRBC (test code = 413) 0 See_Comment [Aut omated message] The system [employer] generated this result transmitted ref erence range: 0 - 0 /1 00 WBC. The refere nce range was not u sed to interpret this result as normal/abnor mal. % Neutros (test code = 53 % 429) % Lymphs (test code = 38 % 430) % Monos (test code = 6 % 431) % Eos (test code = 432) 2 % % Baso (test code = 437) 0 % # Neutros (test code = 6.11 See_Comment [Aut omated message] 670) The system [employer] generated this result transmitted ref erence range: 1.56 - 6 .13 K/L. The refe rence range was not u sed to interpret this result as normal/abnor mal. # Lymphs (test code = 4.32 See_Comment H [Auto mated message] 414) The system [employer] generated this result transmitted ref erence range: 1.18 - 3 .74 K/L. The refe rence range was not u sed to interpret this result as normal/abnor mal. # Monos (test code = 0.71 See_Comment H [Autom ated message] 415) The system [employer] generated this result transmitted ref erence range: 0.24 - 0 .36 K/L. The refe rence range was not u sed to interpret this result as normal/abnor mal. # Eos (test code = 416) 0.20 See_Comment [Au tomated message] The system [employer] generated this result transmitted ref erence range: 0.04 - 0 .36 K/L. The refe rence range was not u sed to interpret this result as normal/abnor mal. # Baso (test code = 417) 0.04 See_Comment [A utomated message] The system [employer] generated this result transmitted ref erence range: 0.01 - 0 .08 K/L. The refe rence range was not u sed to interpret this result as normal/abnor mal. Immature 0 % 0-1 Granulocytes-Relative (test code = 2801) Lab Interpretation (test Abnormal code = 59483-5) [facility] with platelet count + automated [id number] 01:11:45 Test Item Value Reference Range Interpretation Comments WBC (test code = 6690-2) 11.4 See_Comment H [A utomated message] The system [employer] generated this result transmitted ref erence range: 3.5 - 10 .5 K/L. The refe rence range was not u sed to interpret this result as normal/abnor mal. RBC (test code = 789-8) 4.13 See_Comment [Au tomated message] The system [employer] generated this result transmitted ref erence range: 3.93 - 5 .22 M/L. The refe rence range was not u sed to interpret this result as normal/abnor mal. MCHC (test code = 786-4) 33.1 See_Comment [A utomated message] The system [employer] generated this result transmitted ref erence range: 32.2 - 3 5.5 GM/DL. The refe rence range was not u sed to interpret this result as normal/abnor mal. Hematocrit (test code = 37.2 % 34.1-44.9 4544-3) MCV (test code = 787-2) 90.1 fL 79.4-94.8 MCH (test code = 785-6) 29.8 pg 25.6-32.2 RDW (test code = 788-0) 11.9 % 11.7-14.4 Platelets (test code = 267 See_Comment [Aut omated message] 777-3) The system [employer] generated this result transmitted ref erence range: 150 - 45 0 K/CU MM. The referen ce range was not u sed to interpret this result as normal/abnor mal. MPV (test code = 10.3 fL 9.4-12.3 03111-9) nRBC (test code = 413) 0 See_Comment [Aut omated message] The system [employer] generated this result transmitted ref erence range: 0 - 0 /1 00 WBC. The refere nce range was not u sed to interpret this result as normal/abnor mal. % Neutros (test code = 53 % 429) % Lymphs (test code = 38 % 430) % Monos (test code = 6 % 431) % Eos (test code = 432) 2 % % Baso (test code = 437) 0 % # Neutros (test code = 6.11 See_Comment [Aut omated message] 670) The system [employer] generated this result transmitted ref erence range: 1.56 - 6 .13 K/L. The refe rence range was not u sed to interpret this result as normal/abnor mal. # Lymphs (test code = 4.32 See_Comment H [Auto mated message] 414) The system [employer] generated this result transmitted ref erence range: 1.18 - 3 .74 K/L. The refe rence range was not u sed to interpret this result as normal/abnor mal. # Monos (test code = 0.71 See_Comment H [Autom ated message] 415) The system [employer] generated this result transmitted ref erence range: 0.24 - 0 .36 K/L. The refe rence range was not u sed to interpret this result as normal/abnor mal. # Eos (test code = 416) 0.20 See_Comment [Au tomated message] The system [employer] generated this result transmitted ref erence range: 0.04 - 0 .36 K/L. The refe rence range was not u sed to interpret this result as normal/abnor mal. # Baso (test code = 417) 0.04 See_Comment [A utomated message] The system [employer] generated this result transmitted ref erence range: 0.01 - 0 .08 K/L. The refe rence range was not u sed to interpret this result as normal/abnor mal. Immature 0 % 0-1 Granulocytes-Relative (test code = 2801) Lab Interpretation (test Abnormal code = 60980-2) [facility] W/PLT COUNT & AUTO [id number] 01:11:45 Test Item Value Reference Range Interpretation [...] PERCENT (BEAKER) (test code = 2801) POCT-GLUCOSE [id number] 21:31:18 Test Item Value Reference Range Interpretation Comments POC-GLUCOSE METER 378 mg/dL 70-110 H : TESTED A T [facility] 6720 (BEAKER) (test code = [place], 1538) [address]: [employer]/Techni herson ID = [id number] for PE RALES, CRESENCIO TOSHIA's Only(Ankle/Brachial Index)2021-08-03 19:41:55Ejection FractionSLEH ECHO [facility]/Brachial Index[facility]2021-08-03 19:41:55Ejection FractionSLEH ECHO HEARTLAB [facility](Ankle/Brachial Index)2021-08-03 19:41:55 Ejection FractionSLEH [facility]CHO [facility] TOSHIA's Only(Ankle/Brachial Index)2021-08-03 19:41:55Ejection FractionSLEH ECHO HEARTLAB MKCK[facility]ON [facility](Ankle/Brachial Index)2021-08-03 19:41:55Ejection FractionSLEH ECHO HEARTLAB MKCK[facility](Ankle/Brachial Index)2021-08-03 19:41:[address] [facility] [id number] 19:24:38 Test Item Value Reference Range Interpretation Comments PARTIAL THROMBOPLASTIN TIME 78.7 seconds 22.5-36.0 H ([facility]) (test code = 760) POCT-GLUCOSE [id number] 16:58:02 Test Item Value Reference Range Interpretation Comments POC-GLUCOSE METER 235 mg/dL 70-110 H : TESTED A T [facility] 67[address] ([facility]) (test code = LOREE SIDHU DE, 1538) [address]: Latex Spooler/Techni herson ID = [id number] for HU NTER, HIWITHA CT, CTA AAA, W/ CLINT.EXT.[id number] [facility]:57[facility] 1945 Sex: FFINAL REPORT CTA ABDOMEN AND PELVIS WITH BILATERAL RUNOFF STUDIES, WITHOUT AND WITH IV CONTRAST History provided: Lower extremity arterial embolism Comparison study none TECHNIQUE: Noncontrast imaging was initially performed through the abdomen and pelvis. During rapid IV contrast administration, helical CT was performed from the diaphragm to the feet. 3-D reformats and MIPS were pro vided. FINDINGS: NONVASCULAR FINDINGS: Lung bases unremarkable. Visualized portion of the liver unremarkable. Spleen normal in size. Normal-appearing pancreas. 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 Kidneys show no calculi or hydronephrosis. No dilated bowel loops. Sigmoid diverticu losis without evidence of diverticulitis. Regional osseous structures intact. VASCULAR FINDINGS: Theabdominal aorta is of normal caliber and widely patent throughout. Widely patent celiac, SMA, renal arteries, and ISAAC. Common and external iliac arteries are of normal caliber and are widely patent bilaterally. Evaluation of the right lower extremity shows long segment stenting of the superficial femoral artery, which is widely patent with no significant in-stent stenosis. The stent terminates at theentry into the abductor canal. The right popliteal artery is of normal caliber and widely patent.There is been previous stenting of the right anterior tibial artery, which is thrombosed just beyond thestented portion and reconstitutes at the level of the ankle by collateral flow.. The right peroneal artery is patent in a straight line fashion. The right posterior tibial artery is occluded throughoutmuch of its course, but reconstitutes at the level of the ankle by a peroneal collateral. Evaluationof the left lower extremity shows widely patent superficial femoral artery, with no significant stenosis and excellent flow into calcified though widely patent popliteal artery. The anterior tibial andperoneal arteries are patent in a straight line fashion throughout the calf. The posterior tibial artery is proximally occluded but reconstitutes within the distal calf. IMPRESSION: Normal flow throughthe abdominal aorta into widely patent iliac vessels. [...] of the mA and/or kV according to patientsize and/or use of iterative reconstruction technique. Signed: Curt Wright Verified Date/Time: 08/03/2021 15:57:48 Reading Location: [facility] Radiology Reading Room Hemoglobin A1c 2021-08-03 12:37:44 Test Item Value Reference Range Interpretation Comments Hemoglobin A1C (test 12.9 % See_Comment H [Autom ated code = 4549-2) message] The system which generated this result transmitted reference range : <=5.6%. The reference range was not used to interpret this result as normal/abnormal . BASIA (test code = BASIA) "The A1c is measured using a NGSP-certified method. HbA1c value equal to or greater than 6.5% as the diagnosis cutoff for diabetes. An HbA1c value of 5.7-6.4% indicates increased risk for diabetes (prediabetes)."O perator ID - ADM Lab Interpretation Abnormal (test code = 10814-3) [facility] [id number] 12:37:44 Test Item Value Reference Range Interpretation Comments Hemoglobin A1C (test 12.9 % See_Comment H [Autom ated code = 4549-2) message] The system which generated this result transmitted reference range : <=5.6%. The reference range was not used to interpret this result as normal/abnormal . BASIA (test code = BASIA) "The A1c is measured using a NGSP-certified method. HbA1c value equal to or greater than 6.5% as the diagnosis cutoff for diabetes. An HbA1c value of 5.7-6.4% indicates increased risk for diabetes (prediabetes)."O perator ID - ADM Lab Interpretation Abnormal (test code = 52735-9) [facility] [id number] 12:37:44 Test Item Value Reference Range Interpretation Comments Hemoglobin A1C (test 12.9 % See_Comment H [Autom ated code = 4549-2) message] The system which generated this result transmitted reference range : <=5.6%. The reference range was not used to interpret this result as normal/abnormal . BASIA (test code = BASIA) "The A1c is measured using a NGSP-certified method. HbA1c value equal to or greater than 6.5% as the diagnosis cutoff for diabetes. An HbA1c value of 5.7-6.4% indicates increased risk for diabetes (prediabetes)."O perator ID - ADM Lab Interpretation Abnormal (test code = 89626-7) [facility] [id number] 12:37:44 Test Item Value Reference Range Interpretation Comments Hemoglobin A1C (test 12.9 % See_Comment H [Autom ated code = 4549-2) message] The system which generated this result transmitted reference range : <=5.6%. The reference range was not used to interpret this result as normal/abnormal . BASIA (test code = BASIA) "The A1c is measured using a NGSP-certified method. HbA1c value equal to or greater than 6.5% as the diagnosis cutoff for diabetes. An HbA1c value of 5.7-6.4% indicates increased risk for diabetes (prediabetes)."O perator ID - ADM Lab Interpretation Abnormal (test code = 18167-6) [facility] [id number] 12:37:44 Test Item Value Reference Range Interpretation Comments Hemoglobin A1C (test 12.9 % See_Comment H [Autom ated code = 4549-2) message] The system which generated this result transmitted reference range : <=5.6%. The reference range was not used to interpret this result as normal/abnormal . BASIA (test code = BASIA) "The A1c is measured using a NGSP-certified method. HbA1c value equal to or greater than 6.5% as the diagnosis cutoff for diabetes. An HbA1c value of 5.7-6.4% indicates increased risk for diabetes (prediabetes)."O perator ID - ADM Lab Interpretation Abnormal (test code = 36025-4) [facility] [id number] 12:37:44 Test Item Value Reference Range Interpretation Comments Hemoglobin A1C (test 12.9 % See_Comment H [Autom ated code = 4549-2) message] The system which generated this result transmitted reference range : <=5.6%. The reference range was not used to interpret this result as normal/abnormal . BASIA (test code = BASIA) "The A1c is measured using a NGSP-certified method. HbA1c value equal to or greater than 6.5% as the diagnosis cutoff for diabetes. An HbA1c value of 5.7-6.4% indicates increased risk for diabetes (prediabetes)."O perator ID - ADM Lab Interpretation Abnormal (test code = 06678-8) [facility] ParkHEMOGLOBIN [id number] 12:37:44 Test Item Value Reference Range Interpretation Comments HEMOGLOBIN A1C 12.9 % See_Comment H [Automated m essage] ELECTROPHORESIS (RICK) The system which (test code = 3811) generated this result transmitted ref erence range: <=5.6%. The reference range was not used to int erpret this result as normal/abnormal . "The A1c is measured using a NGSP-certified method. HbA1c value equal to or greater than 6.5% as thediagnosis cutoff for diabetes. An HbA1c value of 5.7- 6.4% indicates increased risk for diabetes (prediabetes)."Latex Spooler ID - ADMPOCT- GLUCOSE [id number] 12:00:32 Test Item Value Reference Range Interpretation Comments POC-GLUCOSE METER 373 mg/dL 70-110 H : Notified RN/: (RICK) (test code = TESTED AT [facility] 67 1538) [facility], [address]: Latex Spooler/Techni herson ID = [id number] for HU NTER, HIWITHA [id number] 11:11:35 Test Item Value Reference Range Interpretation Comments PARTIAL THROMBOPLASTIN TIME 49.3 seconds 22.5-36.0 H (RICK) (test code = 760) POCT-GLUCOSE [id number] 07:09:18 Test Item Value Reference Range Interpretation Comments POC-GLUCOSE METER 262 mg/dL 70-110 H : TESTED A T [facility] 67 (RICK) (test code = [facility] Braulio [facility], 1538) [address]: Latex Spooler/Techni herson ID = [id number] for HU NTER, HIWITHA Type and screen, [id number] 04:19:00 Test Item Value Reference Range Interpretation Comments ABO/RH AUTOMATED (CHRISTAD) (test O POSITIVE code = 2260) Ab Scrn (test code = 890-4) NEGATIVE [facility] ParkType and screen, [id number] 04:19:00 Test Item Value Reference Range Interpretation Comments ABO/RH AUTOMATED (BEAKER) (test O POSITIVE code = 2260) Ab Scrn (test code = 890-4) NEGATIVE [facility] ParkType and screen, [id number] 04:19:00 Test Item Value Reference Range Interpretation Comments ABO/RH AUTOMATED (BEAKER) (test O POSITIVE code = 2260) Ab Scrn (test code = 890-4) NEGATIVE [facility] Park[facility] and screen, [id number] 04:19:00 Test Item Value Reference Range Interpretation Comments ABO/RH AUTOMATED (BEAKER) (test O POSITIVE code = 2260) Ab Scrn (test code = 890-4) NEGATIVE [facility] Park[facility] and screen, [id number] 04:19:00 Test Item Value Reference Range Interpretation Comments ABO/RH AUTOMATED (BEAKER) (test O POSITIVE code = 2260) Ab Scrn (test code = 890-4) NEGATIVE [facility] ParkType and screen, [id number] 04:19:00 Test Item Value Reference Range Interpretation Comments ABO/RH AUTOMATED (BEAKER) (test O POSITIVE code = 2260) Ab Scrn (test code = 890-4) NEGATIVE [facility] ParkAPTT2022-02-16 04:08:41 Test Item Value Reference Range Interpretation Comments PARTIAL THROMBOPLASTIN TIME 39.5 seconds 22.5-36.0 H (BEAKER) (test code = 760) Comprehensive metabolic [id number] 04:08:05 Test Item Value Reference Range Interpretation Comments Protein, Total (test 7.0 See_Comment [Autom ated code = 2885-2) message] The system which generated this result transmitted reference range : 6.0 - 8.3 gm/dL . The reference range was not used to interpr et this result as normal/abnormal . Albumin (test code = 3.6 g/dL 3.5-5.0 76861-4) Alkaline Phosphatase 102 U/L 40-150 (test code = 6768-6) Total Bilirubin (test 2.2 mg/dL 0.2-1.2 H code = 1974-2) Sodium (test code = 134 meq/L 136-145 L 2951-2) Potassium (test code 4.5 meq/L 3.5-5.1 = 2823-3) Chloride (test code = 97 meq/L 98-107 L 2074-0) CO2 (test code = 30 meq/L 22-29 H 8-9) BUN (test code = 17 mg/dL 7-21 3094-0) Creatinine (test code 0.86 mg/dL 0.57-1.25 = 2160-0) Glucose (test code = 302 mg/dL 70-105 H 2345-7) Calcium (test code = 9.2 mg/dL 8.4-10.2 06269-9) AST (test code = 14 U/L 5-34 192-8) ALT (test code = 23 U/L 6-55 1742-6) EGFR (test code = 65 mL/min/1.73 [place] [address]-7) NOT ACCURATE CREATININE CLEARANCE IN PREDICTING GLOMERULAR FILTRATION RATE . ESTIMATED GFR I S NOT APPLICABLE FOR DIALYSIS PATIENTS. BASIA (test code = BASIA) Latex Spooler ID - PALOMA MSpecimen slightly icteric Lab Interpretation Abnormal (test code = 14646-5) [facility] ParkMagnesium2022-02-16 04:08:05 Test Item Value Reference Range Interpretation Comments Magnesium (test code = 2.1 mg/dL 1.6-2.6 29002-4) BASIA (test code = BASIA) Latex Spooler ID - PALOMA M Lab Interpretation (test Normal code = 98772-7) [facility] ParkCom[facility] metabolic [id number] 04:08:05 Test Item Value Reference Range Interpretation Comments Protein, Total (test 7.0 See_Comment [Autom ated code = 2885-2) message] The system which generated this result transmitted reference range : 6.0 - 8.3 gm/dL . The reference range was not used to interpr et this result as normal/abnormal . Albumin (test code = 3.6 g/dL 3.5-5.0 24211-6) Alkaline Phosphatase 102 U/L 40-150 (test code = 6768-6) Total Bilirubin (test 2.2 mg/dL 0.2-1.2 H code = 1974-2) Sodium (test code = 134 meq/L 136-145 L 2951-2) Potassium (test code 4.5 meq/L 3.5-5.1 = 2823-3) Chloride (test code = 97 meq/L 98-107 L 2074-0) CO2 (test code = 30 meq/L 22-29 H 8-9) BUN (test code = 17 mg/dL 7-21 3094-0) Creatinine (test code 0.86 mg/dL 0.57-1.25 = 2160-0) Glucose (test code = 302 mg/dL 70-105 H 2345-7) Calcium (test code = 9.2 mg/dL 8.4-10.2 93520-4) AST (test code = 14 U/L 5-34 1920-8) ALT (test code = 23 U/L 6-55 1742-6) EGFR (test code = 65 mL/min/1.[place] [address]-5) NOT ACCURATE CREATININE CLEARANCE IN PREDICTING GLOMERULAR FILTRATION RATE . ESTIMATED GFR I S NOT APPLICABLE FOR DIALYSIS PATIENTS. BASIA (test code = BASIA) Latex Spooler ID - PALOMA MSpecimen slightly icteric Lab Interpretation Abnormal (test code = 13098-6) [facility]2022-[facility] 04:08:05 Test Item Value Reference Range Interpretation Comments Magnesium (test code = 2.1 mg/dL 1.6-2.6 40330-9) BASIA (test code = BASIA) Latex Spooler ID - PALOMA M Lab Interpretation (test Normal code = 57971-2) [facility] metabolic [id number] 04:08:05 Test Item Value Reference Range Interpretation Comments Protein, Total (test 7.0 See_Comment [Autom ated code = 2885-2) message] The system which generated this result transmitted reference range : 6.0 - 8.3 gm/dL . The reference range was not used to interpr et this result as normal/abnormal . Albumin (test code = 3.6 g/dL 3.5-5.0 05837-7) Alkaline Phosphatase 102 U/L 40-150 (test code = 6768-6) Total Bilirubin (test 2.2 mg/dL 0.2-1.2 H code = 1974-2) Sodium (test code = 134 meq/L 136-145 L 2951-2) Potassium (test code 4.5 meq/L 3.5-5.1 = 2823-3) Chloride (test code = 97 meq/L 98-107 L 2074-0) CO2 (test code = 30 meq/L 22-29 H 8-9) BUN (test code = 17 mg/dL 7-21 3094-0) Creatinine (test code 0.86 mg/dL 0.57-1.25 = 2160-0) Glucose (test code = 302 mg/dL 70-105 H 2345-7) Calcium (test code = 9.2 mg/dL 8.4-10.2 33529-3) AST (test code = 14 U/L 5-34 1920-8) ALT (test code = 23 U/L 6-55 1742-6) EGFR (test code = 65 mL/min/1.73 sq m [facility] [place] [address]-0) NOT ACCURATE CREATININE CLEARANCE IN PREDICTING GLOMERULAR FILTRATION RATE . ESTIMATED GFR I S NOT APPLICABLE FOR DIALYSIS PATIENTS. BASIA (test code = BASIA) Latex Spooler ID - PALOMA MSpecimen slightly icteric Lab Interpretation Abnormal (test code = 89760-7) [facility] Park[facility]2022-[facility] 04:08:05 Test Item Value Reference Range Interpretation Comments Magnesium (test code = 2.1 mg/dL 1.6-2.6 02195-9) BASIA (test code = BASIA) Latex Spooler ID - PALOMA M Lab Interpretation (test Normal code = 45126-6) [facility] [id number] 04:08:05 Test Item Value Reference Range Interpretation Comments Protein, Total (test 7.0 See_Comment [Autom ated code = 2885-2) message] The system which generated this result transmitted reference range : 6.0 - 8.3 gm/dL . The reference range was not used to interpr et this result as normal/abnormal . Albumin (test code = 3.6 g/dL 3.5-5.0 31215-9) Alkaline Phosphatase 102 U/L 40-150 (test code = 6768-6) Total Bilirubin (test 2.2 mg/dL 0.2-1.2 H code = 1974-2) Sodium (test code = 134 meq/L 136-145 L 2951-2) Potassium (test code 4.5 meq/L 3.5-5.1 = 2823-3) Chloride (test code = 97 meq/L 98-107 L 2075-0) CO2 (test code = 30 meq/L 22-29 H 8-9) BUN (test code = 17 mg/dL 7-21 3094-0) Creatinine (test code 0.86 mg/dL 0.57-1.25 = 2160-0) Glucose (test code = 302 mg/dL 70-105 H 2345-7) Calcium (test code = 9.2 mg/dL 8.4-10.2 20353-5) AST (test code = 14 U/L 5-34 1920-8) ALT (test code = 23 U/L 6-55 1742-6) EGFR (test code = 65 mL/min/1.73 sq m [facility] [place] [address]-8) NOT ACCURATE CREATININE CLEARANCE IN PREDICTING GLOMERULAR FILTRATION RATE . ESTIMATED GFR I S NOT APPLICABLE FOR DIALYSIS PATIENTS. BASIA (test code = BASIA) Latex Spooler ID - PALOMA MSpecimen slightly icteric Lab Interpretation Abnormal (test code = 38899-8) [facility]2022-[facility] 04:08:05 Test Item Value Reference Range Interpretation Comments Magnesium (test code = 2.1 mg/dL 1.6-2.6 00669-4) BASIA (test code = BASIA) Latex Spooler ID - PALOMA M Lab Interpretation (test Normal code = 06165-9) [facility]Com[facility] [id number] 04:08:05 Test Item Value Reference Range Interpretation Comments Protein, Total (test 7.0 See_Comment [Autom ated code = 2885-2) message] The system which generated this result transmitted reference range : 6.0 - 8.3 gm/dL . The reference range was not used to interpr et this result as normal/abnormal . Albumin (test code = 3.6 g/dL 3.5-5.0 69765-6) Alkaline Phosphatase 102 U/L 40-150 (test code = 6768-6) Total Bilirubin (test 2.2 mg/dL 0.2-1.2 H code = 1974-2) Sodium (test code = 134 meq/L 136-145 L 2951-2) Potassium (test code 4.5 meq/L 3.5-5.1 = 2823-3) Chloride (test code = 97 meq/L 98-107 L 2075-0) CO2 (test code = 30 meq/L 22-29 H 8-9) BUN (test code = 17 mg/dL 7-21 3094-0) Creatinine (test code 0.86 mg/dL 0.57-1.25 = 2160-0) Glucose (test code = 302 mg/dL 70-105 H 2345-7) Calcium (test code = 9.2 mg/dL 8.4-10.2 38323-4) AST (test code = 14 U/L 5-34 1920-8) ALT (test code = 23 U/L 6-55 1742-6) EGFR (test code = 65 mL/min/1.[place] [address]-6) NOT ACCURATE CREATININE CLEARANCE IN PREDICTING GLOMERULAR FILTRATION RATE . ESTIMATED GFR I S NOT APPLICABLE FOR DIALYSIS PATIENTS. BASIA (test code = BASIA) Latex Spooler ID - PALOMA MSpecimen slightly icteric Lab Interpretation Abnormal (test code = 86164-9) [facility] 04:08:05 Test Item Value Reference Range Interpretation Comments Magnesium (test code = 2.1 mg/dL 1.6-2.6 01315-4) BASIA (test code = BASIA) Latex Spooler ID - PALOMA M Lab Interpretation (test Normal code = 72911-8) [facility] [id number] 04:08:05 Test Item Value Reference Range Interpretation Comments Protein, Total (test 7.0 See_Comment [Autom ated code = 2885-2) message] The system which generated this result transmitted reference range : 6.0 - 8.3 gm/dL . The reference range was not used to interpr et this result as normal/abnormal . Albumin (test code = 3.6 g/dL 3.5-5.0 25847-9) Alkaline Phosphatase 102 U/L 40-150 (test code = 6768-6) Total Bilirubin (test 2.2 mg/dL 0.2-1.2 H code = 1974-2) Sodium (test code = 134 meq/L 136-145 L 2951-2) Potassium (test code 4.5 meq/L 3.5-5.1 = 2823-3) Chloride (test code = 97 meq/L 98-107 L 2075-0) CO2 (test code = 30 meq/L 22-29 H 8-9) BUN (test code = 17 mg/dL 7-21 3094-0) Creatinine (test code 0.86 mg/dL 0.57-1.25 = 2160-0) Glucose (test code = 302 mg/dL 70-105 H 2345-7) Calcium (test code = 9.2 mg/dL 8.4-10.2 20260-8) AST (test code = 14 U/L 5-34 1920-8) ALT (test code = 23 U/L 6-55 1742-6) EGFR (test code = 65 mL/min/1.[place] [address]-4) NOT ACCURATE CREATININE CLEARANCE IN PREDICTING GLOMERULAR FILTRATION RATE . ESTIMATED GFR I S NOT APPLICABLE FOR DIALYSIS PATIENTS. BASIA (test code = BASIA) Latex Spooler ID Bryant DOW MSpecimen slightly icteric Lab Interpretation Abnormal (test code = 64526-3) [facility]2022-02-16 04:08:05 Test Item Value Reference Range Interpretation Comments Magnesium (test code = 2.1 mg/dL 1.6-2.6 69472-3) BASIA (test code = BASIA) Latex Spooler ID Bryant DOW M Lab Interpretation (test Normal code = 93939-8) [facility]2022-02-16 04:08:05 Test Item Value Reference Range Interpretation Comments MAGNESIUM (BEAKER) (test code = 2.1 mg/dL 1.6-2.6 627) Latex Spooler ID - PALOMA MCOMPREHENSIVE METABOLIC [id number] 04:08:05 Test Item Value Reference Range Interpretation [...] S NOT APPLICABLE FOR DIALYSIS PATIEN TS. Latex Spooler ID - PALOMA MSpecimen slightly ictericProthrombin time/[id number] 04:07:37 Test Item Value Reference Interpretation Comments Range Protime (test code = 13.3 See_Comment [Autom ated 6872-2) message] The system which generated this result transmitted reference range : 11.9 - 14.2 seconds. The reference range was not used to interpret this result as normal/abnormal . INR (test code = 1.03 See_Comment [Automated 7611-6) message] The system which generated this result transmitted reference range : <=5.90. The reference range was not used to interpret this result as normal/abnormal . BASIA (test code = RECOMMENDED BASIA) COUMADIN/WARFARIN INR THERAPY RANGESSTANDARD DOSE: 2.0 - 3.0 Includes: PROPHYLAXIS for venous thrombosis, systemic embolization; TREATMENT for venous thrombosis and/or pulmonary embolus.HIGH RISK: Target INR is 2.5-3.5 for patients with mechanical heart valves. Lab Interpretation Normal (test code = 63283-9) [facility] Park[facility]thrombin time/[id number] 04:07:37 Test Item Value Reference Interpretation Comments Range Protime (test code = 13.3 See_Comment [Autom ated 5902-2) message] The system which generated this result transmitted reference range : 11.9 - 14.2 seconds. The reference range was not used to interpret this result as normal/abnormal . INR (test code = 1.03 See_Comment [Automated 6301-6) message] The system which generated this result transmitted reference range : <=5.90. The reference range was not used to interpret this result as normal/abnormal . BASIA (test code = RECOMMENDED BASIA) COUMADIN/WARFARIN INR THERAPY RANGESSTANDARD DOSE: 2.0 - 3.0 Includes: PROPHYLAXIS for venous thrombosis, systemic embolization; TREATMENT for venous thrombosis and/or pulmonary embolus.HIGH RISK: Target INR is 2.5-3.5 for patients with mechanical heart valves. Lab Interpretation Normal (test code = 82815-7) [facility] ParkProthrombin time/[id number] 04:07:37 Test Item Value Reference Interpretation Comments Range Protime (test code = 13.3 See_Comment [Autom ated 5902-2) message] The system which generated this result transmitted reference range : 11.9 - 14.2 seconds. The reference range was not used to interpret this result as normal/abnormal . INR (test code = 1.03 See_Comment [Automated 6301-6) message] The system which generated this result transmitted reference range : <=5.90. The reference range was not used to interpret this result as normal/abnormal . BASIA (test code = RECOMMENDED BASIA) COUMADIN/WARFARIN INR THERAPY RANGESSTANDARD DOSE: 2.0 - 3.0 Includes: PROPHYLAXIS for venous thrombosis, systemic embolization; TREATMENT for venous thrombosis and/or pulmonary embolus.HIGH RISK: Target INR is 2.5-3.5 for patients with mechanical heart valves. Lab Interpretation Normal (test code = 67363-6) [facility] ParkProthrombin time/[id number] 04:07:37 Test Item Value Reference Interpretation Comments Range Protime (test code = 13.3 See_Comment [Autom ated 5902-2) message] The system which generated this result transmitted reference range : 11.9 - 14.2 seconds. The reference range was not used to interpret this result as normal/abnormal . INR (test code = 1.03 See_Comment [Automated 6301-6) message] The system which generated this result transmitted reference range : <=5.90. The reference range was not used to interpret this result as normal/abnormal . BASIA (test code = RECOMMENDED BASIA) COUMADIN/WARFARIN INR THERAPY RANGESSTANDARD DOSE: 2.0 - 3.0 Includes: PROPHYLAXIS for venous thrombosis, systemic embolization; TREATMENT for venous thrombosis and/or pulmonary embolus.HIGH RISK: Target INR is 2.5-3.5 for patients with mechanical heart valves. Lab Interpretation Normal (test code = 20794-5) [facility] ParkProthrombin time/[id number] 04:07:37 Test Item Value Reference Interpretation Comments Range Protime (test code = 13.3 See_Comment [Autom ated 5902-2) message] The system which generated this result transmitted reference range : 11.9 - 14.2 seconds. The reference range was not used to interpret this result as normal/abnormal . INR (test code = 1.03 See_Comment [Automated 6301-6) message] The system which generated this result transmitted reference range : <=5.90. The reference range was not used to interpret this result as normal/abnormal . BASIA (test code = RECOMMENDED BASIA) COUMADIN/WARFARIN INR THERAPY RANGESSTANDARD DOSE: 2.0 - 3.0 Includes: PROPHYLAXIS for venous thrombosis, systemic embolization; TREATMENT for venous thrombosis and/or pulmonary embolus.HIGH RISK: Target INR is 2.5-3.5 for patients with mechanical heart valves. Lab Interpretation Normal (test code = 90295-5) [facility] ParkProthrombin time/[id number] 04:07:37 Test Item Value Reference Interpretation Comments Range Protime (test code = 13.3 See_Comment [Autom ated 5902-2) message] The system which generated this result transmitted reference range : 11.9 - 14.2 seconds. The reference range was not used to interpret this result as normal/abnormal . INR (test code = 1.03 See_Comment [Automated 0271-6) message] The system which generated this result transmitted reference range : <=5.90. The reference range was not used to interpret this result as normal/abnormal . BASIA (test code = RECOMMENDED BASIA) COUMADIN/WARFARIN INR THERAPY RANGESSTANDARD DOSE: 2.0 - 3.0 Includes: PROPHYLAXIS for venous thrombosis, systemic embolization; TREATMENT for venous thrombosis and/or pulmonary embolus.HIGH RISK: Target INR is 2.5-3.5 for patients with mechanical heart valves. Lab Interpretation Normal (test code = 53305-1) [facility] ParkPROTHROMBIN TIME/[id number] 04:07:37 Test Item Value Reference Range Interpretation Comments PROTIME (BEAKER) 13.3 seconds 11.9-14.2 (test code = 759) INR (BEAKER) (test 1.03 See_Comment [Automat ed message] code = 370) The system [employer] generated this result transmitted ref erence range: <=5.90. The reference range was not used to int erpret this result as normal/abnormal . RECOMMENDED COUMADIN/WARFARIN INR THERAPY RANGESSTANDARD DOSE: 2.0 - 3.0 Includes: PROPHYLAXIS for venous thrombosis, systemic embolization; TREATMENT for venous thrombosis and/or pulmonary embolus.HIGH RISK: Target INR is 2.5-3.5 for patients with mechanical heart valves.CBC W/PLT COUNT & AUTO [id number] 03:41:15 Test Item Value Reference Range Interpretation [...] PERCENT (BEAKER) (test code = 2801) POC-Glucose [id number] 13:05:00 Test Item Value Reference Range Interpretation Comments POC-Glucose Meter (test 200 mg/dL 70-110 H : TE STED AT [facility] code = 1538) [address] [facility], [address] 30: Latex Spooler/Techni herson ID = [id number] for CAMILA CHU Lab Interpretation (test Abnormal code = 96645-1) [facility] ParkPOCT-GLUCOSE [id number] 13:05:00 Test Item Value Reference Range Interpretation Comments POC-GLUCOSE METER 200 mg/dL 70-110 H : TESTED A T [facility] 6720 (BEAKER) (test code = LOREE Ramsey [facility], 1538) [address]: Latex Spooler/Techni herson ID = [id number] for ARISTEO QUEEN POCT-GLUCOSE [id number] 07:59:00 Test Item Value Reference Range Interpretation Comments POC-GLUCOSE METER 191 mg/dL 70-110 H : TESTED A T [facility] 67[address] (BEAKER) (test code = [facility], [facility]8) 57118: Latex Spooler/Techni herson ID = [id number] for ARISTEO QUEEN POCT-GLUCOSE [id number] 21:25:00 Test Item Value Reference Range Interpretation Comments POC-GLUCOSE METER 287 mg/dL 70-110 H : TESTED A T [facility] 6720 (BEAKER) (test code = [facility], [facility]8) 52301: Latex Spooler/Techni herson ID = [id number] for ANNE FUENTES POCT-GLUCOSE [id number] 16:39:00 Test Item Value Reference Range Interpretation Comments POC-GLUCOSE METER 232 mg/dL 70-110 H : TESTED A T [facility] 6720 (BEAKER) (test code = [facility], [facility]8) 92703: Latex Spooler/Techni herson ID = [id number] for ARISTEO QUEEN POCT-GLUCOSE [id number] 11:46:00 Test Item Value Reference Range Interpretation Comments POC-GLUCOSE METER 197 mg/dL 70-110 H : TESTED A T [facility] 6720 (BEAKER) (test code = [facility], [facility]) 18399: Latex Spooler/Techni herson ID = [id number] for ARISETO QUEEN POCT-GLUCOSE [id number] 07:45:00 Test Item Value Reference Range Interpretation Comments POC-GLUCOSE METER 119 mg/dL 70-110 H : TESTED A T [facility] 6720 (BEAKER) (test code = [facility], 1538) 60160: Latex Spooler/Techni herson ID = [id number] for MAX TRAMMELL ARISTEO POCT-GLUCOSE [id number] 21:30:00 Test Item Value Reference Range Interpretation Comments POC-GLUCOSE METER 165 mg/dL 70-110 H : TESTED A T [facility] 6720 (BEAKER) (test code = [facility], [facility]) 22119: Latex Spooler/Techni herson ID = [id number] for POLLO JACKSON POCT-GLUCOSE [id number] 16:02:00 Test Item Value Reference Range Interpretation Comments POC-GLUCOSE METER 162 mg/dL 70-110 H : TESTED A T [facility] 6720 (BEAKER) (test code = [facility] Braulio [facility], 1538) 00730: Latex Spooler/Techni herson ID = [id number] for Tarah Schwab POCT-GLUCOSE [id number] 12:27:00 Test Item Value Reference Range Interpretation Comments POC-GLUCOSE METER 190 mg/dL 70-110 H : TESTED A T [facility] 6720 (BEAKER) (test code = [facility], 1538) 74292: Latex Spooler/Techni herson ID = [id number] for Tarah Schwab POCT-GLUCOSE [id number] 08:12:00 Test Item Value Reference Range Interpretation Comments POC-GLUCOSE METER 160 mg/dL 70-110 H : TESTED A T [facility] 6720 (BEAKER) (test code = [facility], 1538) 97824: Latex Spooler/Techni herson ID = [id number] for Tarah Schwab CBC with platelet count + automated [id number] 04:55:00 Test Item Value Reference Range Interpretation Comments WBC (test code = 6690-2) 11.1 See_Comment H [A utomated message] The system [employer] generated this result transmitted ref erence range: 3.5 - 10 .5 K/L. The refe rence range was not u sed to interpret this result as normal/abnor mal. RBC (test code = 789-8) 4.12 See_Comment [Au tomated message] The system [employer] generated this result transmitted ref erence range: 3.93 - 5 .22 M/L. The refe rence range was not u sed to interpret this result as normal/abnor mal. MCHC (test code = 786-4) 31.8 See_Comment L [A utomated message] The system [employer] generated this result transmitted ref erence range: [...] See_Comment [Aut omated message] 777-3) The system [employer] generated this result transmitted ref erence range: 150 - 45 0 K/CU MM. The referen ce range was not u sed to interpret this result as normal/abnor mal. MPV (test code = 9.2 fL 9.4-12.3 L 98006-9) nRBC (test code = 413) 0 See_Comment [Aut omated message] The system [employer] generated this result transmitted ref erence range: [...] See_Comment [Aut omated message] 670) The system [employer] generated this result transmitted ref erence range: 1.56 - 6 .13 K/L. The refe rence range was not u sed to interpret this result as normal/abnor mal. # Lymphs (test code = 4.22 See_Comment H [Auto mated message] 414) The system [employer] generated this result transmitted ref erence range: 1.18 - 3 .74 K/L. The refe rence range was not u sed to interpret this result as normal/abnor mal. # Monos (test code = 0.76 See_Comment H [Autom ated message] 415) The system [employer] generated this result transmitted ref erence range: 0.24 - 0 .36 K/L. The refe rence range was not u sed to interpret this result as normal/abnor mal. # Eos (test code = 416) 0.39 See_Comment H [Au tomated message] The system [employer] generated this result transmitted ref erence range: 0.04 - 0 .36 K/L. The refe rence range was not u sed to interpret this result as normal/abnor mal. # Baso (test code = 417) 0.03 See_Comment [A utomated message] The system [employer] generated this result transmitted ref erence range: 0.01 - 0 .08 K/L. The refe rence range was not u sed to interpret this result as normal/abnor mal. Immature 0 % 0-1 Granulocytes-Relative (test code = 2801) Lab Interpretation (test Abnormal code = 53078-1) [facility] W/PLT COUNT & AUTO [id number] 04:55:00 Test Item Value Reference Range Interpretation [...] PERCENT (BEAKER) (test code = 2801) POCT-GLUCOSE [id number] 21:28:00 Test Item Value Reference Range Interpretation Comments POC-GLUCOSE METER 217 mg/dL 70-110 H : TESTED A T [facility] 6720 (BEAKER) (test code = [facility], [facility]) 88823: Latex Spooler/Techni herson ID = [id number] for AN ANNE MCNAMARA POCT-GLUCOSE [id number] 16:08:00 Test Item Value Reference Range Interpretation Comments POC-GLUCOSE METER 140 mg/dL 70-110 H : TESTED A T [facility] 6720 (BEAKER) (test code = [facility], [facility]8) 52323: Latex Spooler/Techni herson ID = [id number] for Me ndekrystina, Tarah POCT-GLUCOSE [id number] 13:12:00 Test Item Value Reference Range Interpretation Comments POC-GLUCOSE METER 218 mg/dL 70-110 H : TESTED A T [facility] 6720 (BEAKER) (test code = [facility], 1538) 02095: Latex Spooler/Techni herson ID = [id number] for Me ndez, Tarah POCT-GLUCOSE [id number] 08:19:00 Test Item Value Reference Range Interpretation Comments POC-GLUCOSE METER 246 mg/dL 70-110 H : TESTED A T [facility] 6720 (BEAKER) (test code = [facility], [facility]) 35836: Latex Spooler/Techni herson ID = [id number] for Tarah Schwab CBC W/PLT COUNT & AUTO [id number] 06:06:00 Test Item Value Reference Range Interpretation [...] PERCENT (BEAKER) (test code = 2801) POCT-GLUCOSE [id number] 21:12:00 Test Item Value Reference Range Interpretation Comments POC-GLUCOSE METER 186 mg/dL 70-110 H : TESTED A T [facility] 6720 (BEAKER) (test code = [facility], 153) 13282: Latex Spooler/Techni herson ID = [id number] for NILDA LLAMAS POCT-GLUCOSE [id number] 15:54:00 Test Item Value Reference Range Interpretation Comments POC-GLUCOSE METER 185 mg/dL 70-110 H : TESTED A T [facility] 6720 (BEAKER) (test code = [facility], 153) 97138: Latex Spooler/Techni herson ID = [id number] for GONZÁLEZ JC POCT-GLUCOSE [id number] 11:38:00 Test Item Value Reference Range Interpretation Comments POC-GLUCOSE METER 214 mg/dL 70-110 H : TESTED A T [facility] 6720 (BEAKER) (test code = [facility], 153) 12846: Latex Spooler/Techni herson ID = [id number] for GONZÁLEZ JC POCT-GLUCOSE [id number] 08:01:00 Test Item Value Reference Range Interpretation Comments POC-GLUCOSE METER 148 mg/dL 70-110 H : TESTED A T [facility] 6720 (BEAKER) (test code = [facility], 153) 54772: Latex Spooler/Techni herson ID = [id number] for GONZÁLEZ JC CBC W/PLT COUNT & AUTO [id number] 04:50:00 Test Item Value Reference Range Interpretation [...] PERCENT (BEAKER) (test code = 2801) POCT-GLUCOSE [id number] 21:14:00 Test Item Value Reference Range Interpretation Comments POC-GLUCOSE METER 192 mg/dL 70-110 H : TESTED A T [facility] 6720 (BEAKER) (test code = [place] [place], 1538) 95776: Latex Spooler/Techni herson ID = [id number] for CAIT VELA POCT-GLUCOSE [id number] 16:33:00 Test Item Value Reference Range Interpretation Comments POC-GLUCOSE METER 141 mg/dL 70-110 H : TESTED A T [facility] 6720 (BEAKER) (test code = [place] [facility], 1538) 82360: Latex Spooler/Techni herson ID = [id number] for ARISTEO QUEEN POCT-GLUCOSE [id number] 11:49:00 Test Item Value Reference Range Interpretation Comments POC-GLUCOSE METER 134 mg/dL 70-110 H : TESTED A T [facility] 6720 (BEAKER) (test code = [place] [facility], 1538) 24532: Latex Spooler/Techni herson ID = [id number] for ARISTEO QUEEN PROTHROMBIN [id number] 09:36:00 Test Item Value Reference Range Interpretation [...] is 2.5-3.5 for patients wiht mechanical heart valves.COMPREHENSIVE METABOLIC [...] S NOT APPLICABLE FOR DIALYSIS PATIEN TS. Latex Spooler ID - NTPPOCT-GLUCOSE [id number] 08:02:00 Test Item Value Reference Range Interpretation Comments POC-GLUCOSE METER 122 mg/dL 70-110 H : TESTED A T [facility] 6720 (BEAKER) (test code = [facility], 153) 80482: Latex Spooler/Techni herson ID = [id number] for ARISTEO QUEEN POCT-GLUCOSE [id number] 22:30:00 Test Item Value Reference Range Interpretation Comments POC-GLUCOSE METER 122 mg/dL 70-110 H : TESTED A T [facility] 6720 (BEAKER) (test code = [facility], 153) 25727: Latex Spooler/Techni herson ID = [id number] for MARILU ODONNELL POCT-GLUCOSE [id number] 15:33:00 Test Item Value Reference Range Interpretation Comments POC-GLUCOSE METER 200 mg/dL 70-110 H : TESTED A T [facility] 6720 (BEAKER) (test code = [facility], 153) 74343: Latex Spooler/Techni herson ID = [id number] for ARISTEO QUEEN BASIC METABOLIC [id number] 12:06:00 Test Item Value Reference Range Interpretation [...] S NOT APPLICABLE FOR DIALYSIS PATIEN TS. Latex Spooler ID - JORGE ALBERTO CPOCT-GLUCOSE [id number] 11:59:00 Test Item Value Reference Range Interpretation Comments POC-GLUCOSE METER 129 mg/dL 70-110 H : TESTED A T [facility] 6720 (BEAKER) (test code = [place] [facility], 1538) 12549: Latex Spooler/Techni herson ID = [id number] for ARISTEO QUEEN CBC (HEMOGRAM ONLY)2020-02-11 11:51:00 [...] 0-0 (BEAKER) (test code = 413) POCT-GLUCOSE [id number] 11:26:00 Test Item Value Reference Range Interpretation Comments POC-GLUCOSE METER 138 mg/dL 70-110 H : TESTED A T [facility] 6720 (BEAKER) (test code = [place], 1538) 48227: Latex Spooler/Techni herson ID = [id number] for AN NOR ANNE BASIC METABOLIC [id number] 08:02:00 Test Item Value Reference Range Interpretation [...] S NOT APPLICABLE FOR DIALYSIS PATIEN TS. Latex Spooler ID - JUN CCBC W/PLT COUNT & AUTO [id number] 08:00:00 Test Item Value Reference Range Interpretation [...] PERCENT (BEAKER) (test code = 2801) POCT-GLUCOSE [id number] 07:57:00 Test Item Value Reference Range Interpretation Comments POC-GLUCOSE METER 100 mg/dL 70-110 : TESTED A T [facility] 6720 (BEAKER) (test code = [facility], 1538) 95205: Latex Spooler/Techni herson ID = [id number] for ARISTEO QUEEN VITAMIN B12 AND [id number] 04:11:00 Test Item Value Reference Range Interpretation Comments VITAMIN B12 (BEAKER) (test code = 521 pg/mL 213-816 774) FOLATE (BEAKER) (test code = 362) 18.00 ng/mL >=7.00 Latex Spooler ID - JESUSIRODeana, TIBC, % SAT. (WITHOUT FERRITIN)2020-02-10 23:57:00 Test Item Value Reference Range Interpretation Comments IRON (BEAKER) (test code = 547) 24.0 ug/dL 40.0-160.0 L TOTAL IRON BINDING CAPACITY 253 ug/dL 250-450 (BEAKER) (test code = 769) IRON % SATURATION (2) (BEAKER) 9 % 20-55 L (test code = 2590) Latex Spooler ID - FARHAT LPOCT-GLUCOSE [id number] 18:15:00 Test Item Value Reference Range Interpretation Comments POC-GLUCOSE METER 143 mg/dL 70-110 H : TESTED A T [facility] 6720 (BEAKER) (test code = [facility], 1538) 50584: Latex Spooler/Techni herson ID = [id number] for DEMOND REYES POCT-GLUCOSE [id number] 11:36:00 Test Item Value Reference Range Interpretation Comments POC-GLUCOSE METER 181 mg/dL 70-110 H : TESTED A T [facility] 6720 (BEAKER) (test code = [facility], 153) 79960: Latex Spooler/Techni herson ID = [id number] for JEANINE RIOJAS SARS-COV2/RT-PCR ([facility])2020-02-07 12:36:00 Test Item Value Reference Range Interpretation Comments SARS-COV2/RT-PCR (test Negative Not Detected, Negative, code = 6938711) See external report for linked test SARS-COV-2 PERFORMING LAB [facility] NOE (test code = 0582087) Negative result for this test determines that [...] justifying the authorization of the emergency use ofin vitro diagnostic tests for detection and/or diagnosis of COVID-19 is terminated under Section 564(b)(2) of the Act or the EUA is revoked under Section 564(g) of the Act.Fact Sheet for Healthcare Prov iders:https://www.[employer]/sites/default/files/product/documents/Fact_Sheet_HC _Wfnojtkoc_Rkjk_DODT-UlE-7.pdfFact Sheet for Healthcare Patients:https://www.[employer]/sites/default/files/product/docume nts/Nsuk_Hwuph_Imtufllu_Kssq_CZCS-FkX-9.pdfPerforming Laboratory:[facility].[place], [place] [address]DBTJW METABOLIC PANEL 2020-02-06 12:10:00 Test Item Value [...] S NOT APPLICABLE FOR DIALYSIS PATIEN TS. Latex Spooler ID - [id number] 11:50:00 Test Item Value Reference Range Interpretation Comments HEMOGLOBIN (BEAKER) (test code = 12.0 GM/DL 11.2-15.7 410) Latex Spooler ID - [id number] CULTURE + SMEAR (NON-SPUTUM)2020-01-26 [...] code = 994) seen FUNGUS CULTURE + [id number] 15:27:00 Test Item Value Reference Range Interpretation Comments CULTURE (BEAKER) (test No fungus isolated in code = 1095) 28 days FUNGUS SMEAR (BEAKER) <1+ budding yeast (test code = 1406) FUNGUS CULTURE + [id number] 16:04:00 Test Item Value Reference Range Interpretation Comments CULTURE (BEAKER) (test No fungus isolated in code = 1095) 28 days FUNGUS SMEAR (BEAKER) No fungi seen (test code = 1406) FUNGUS CULTURE + [id number] 16:21:00 Test Item Value Reference Range Interpretation Comments CULTURE (BEAKER) (test No fungus isolated in code = 1095) 28 days FUNGUS SMEAR (BEAKER) No fungi seen (test code = 1406) POCT-GLUCOSE [id number] 11:49:00 Test Item Value Reference Range Interpretation Comments POC-GLUCOSE METER 94 mg/dL 70-110 : TESTED A T [facility] 7200 (BEAKER) (test code = [facility], 1538) [place] [address] 0: Latex Spooler/Techni herson ID = [id number] for CASEY ANO, JUCEL FRAN POCT-GLUCOSE [id number] 07:08:00 Test Item Value Reference Range Interpretation Comments POC-GLUCOSE METER 87 mg/dL 70-110 : TESTED A T [facility] 7200 (BEAKER) (test code = [facility], 1538) [place] [address] 0: Latex Spooler/Techni herson ID = [id number] for NATHAN EDWINA, POLLO POCT-GLUCOSE [id number] 00:12:00 Test Item Value Reference Range Interpretation Comments POC-GLUCOSE METER 111 mg/dL 70-110 H : TESTED A T [facility] 7200 (BEAKER) (test code [facility], = 1538) [place] [address] 0: Latex Spooler/Techni herson ID = [id number] for NATHAN EDWINA, POLLO POCT-GLUCOSE [id number] 16:26:00 Test Item Value Reference Range Interpretation Comments POC-GLUCOSE METER 146 mg/dL 70-110 H : TESTED A T [facility] 7200 (BEAKER) (test code [facility], = 1538) [place] [address] 0: Latex Spooler/Techni herson ID = [id number] for CASEY ANO, JUCEL FRAN PV, VENOUS DOPPLER ARM, [id number] 13:49:00Reason for exam:->LUE pain and nodule, r/o [...] Berg Verified Date/Time: 12/30/2019 13:49:05 Reading Location: [facility] C013Y CT Body Reading RoomAddendum EndsFINAL REPORT Doppler ultrasound of the left lower extremity dated 12/28 Comment: Color Doppler and spectral analysis of the left lower extremity were obtained. There was no deep venous obstruction in the distal external iliac, common femoral, profunda femoral, femoral, popliteal or posterior tibial veins. Compression was utilized and demonstrated normal augmentationin the left lower extremity. There was no venous obstruction in the greater saphenous vein. Impression: No deep venous thrombosis in the left lower extremity. Signed: Deann Berg Verified Date/Time: 12/29/2019 18:22:22 Reading Location: [facility] C013W Consult Reading Room POCT-GLUCOSE [id number] 12:31:00 Test Item Value Reference Range Interpretation Comments POC-GLUCOSE METER 122 mg/dL 70-110 H : TESTED A T [facility] 7200 (BEAKER) (test code [facility], = 1538) [place] [address] 0: Latex Spooler/Techni herson ID = [id number] for JAUN CAMARGO POCT-GLUCOSE [id number] 06:42:00 Test Item Value Reference Range Interpretation Comments POC-GLUCOSE METER 96 mg/dL 70-110 : TESTED A T [facility] 7200 (BEAKER) (test code = [facility], 1538) [place] [address] 0: Latex Spooler/Techni herson ID = [id number] for JARD ERDARÍOE POCT-GLUCOSE [id number] 20:26:00 Test Item Value Reference Range Interpretation Comments POC-GLUCOSE METER 164 mg/dL 70-110 H : TESTED A T [facility] 7200 (BEAKER) (test code [facility], = 1538) [place] [address] 0: Latex Spooler/Techni herson ID = [id number] for NATHAN EDWINA, POLLO POCT-GLUCOSE [id number] 16:59:00 Test Item Value Reference Range Interpretation Comments POC-GLUCOSE METER 199 mg/dL 70-110 H : TESTED A T [facility] 7200 (BEAKER) (test code [facility] [facility], = 1538) [place] [address] 0: Latex Spooler/Techni herson ID = [id number] for WANDA MARTINEZIETA POCT-GLUCOSE [id number] 11:17:00 Test Item Value Reference Range Interpretation Comments POC-GLUCOSE METER 113 mg/dL 70-110 H : TESTED A T [facility] 7200 (BEAKER) (test code [facility], = 1538) [place] [address] 0: Latex Spooler/Techni herson ID = [id number] for OMANCHO SHANNAN, SYRIETA POCT-GLUCOSE [id number] 06:28:00 Test Item Value Reference Range Interpretation Comments POC-GLUCOSE METER 107 mg/dL 70-110 : TESTED A T [facility]200 (BEAKER) (test code [facility], = 1538) [place] [address] 0: Latex Spooler/Techni herson ID = [id number] for ROSY FAUST BASIC METABOLIC [id number] 05:30:00 Test Item Value Reference Range Interpretation [...] 9.4-12.3 L (test code = 754) POCT-GLUCOSE [id number] 20:59:00 Test Item Value Reference Range Interpretation Comments POC-GLUCOSE METER 173 mg/dL 70-110 H : TESTED A T [facility]200 (BEAKER) (test code [facility], = 1538) [place] [address] 0: Latex Spooler/Techni herson ID = [id number] for ROSY FAUST POCT-GLUCOSE [id number] 16:41:00 Test Item Value Reference Range Interpretation Comments POC-GLUCOSE METER 151 mg/dL 70-110 H : TESTED A T [facility] 7200 (BEAKER) (test code [facility], = 1538) [place] [address] 0: Latex Spooler/Techni herson ID = [id number] for AVIVA PRUITT POCT-GLUCOSE [id number] 12:07:00 Test Item Value Reference Range Interpretation Comments POC-GLUCOSE METER 130 mg/dL 70-110 H : TESTED A T [facility] 7200 (BEAKER) (test code [facility] [facility], = 1538) [place] [address] 0: Latex Spooler/Techni herson ID = [id number] for JOHN ERA, AVIVA POCT-GLUCOSE [id number] 06:28:00 Test Item Value Reference Range Interpretation Comments POC-GLUCOSE METER 99 mg/dL 70-110 : TESTED A T [facility]200 (BEAKER) (test code = [facility], 1538) [place] [address] 0: Latex Spooler/Techni herson ID = [id number] for BENNY , ROSY POCT-GLUCOSE [id number] 20:35:00 Test Item Value Reference Range Interpretation Comments POC-GLUCOSE METER 230 mg/dL 70-110 H : TESTED A T [facility]200 (BEAKER) (test code [facility] [facility], = 1538) [place] [address] 0: Latex Spooler/Techni herson ID = [id number] for BENNY , ROSY POCT-GLUCOSE [id number] 16:19:00 Test Item Value Reference Range Interpretation Comments POC-GLUCOSE METER 184 mg/dL 70-110 H : TESTED A T [facility]200 (BEAKER) (test code [facility], = 1538) [place] [address] 0: Latex Spooler/Techni herson ID = [id number] for JOHN ERA, AVIVA POCT-GLUCOSE [id number] 11:24:00 Test Item Value Reference Range Interpretation Comments POC-GLUCOSE METER 120 mg/dL 70-110 H : TESTED A T [facility]200 (BEAKER) (test code [facility], = 1538) [place] [address] 0: Latex Spooler/Techni herson ID = [id number] for JOHN ERA, AVIVA POCT-GLUCOSE [id number] 06:15:00 Test Item Value Reference Range Interpretation Comments POC-GLUCOSE METER 80 mg/dL 70-110 : TESTED A T [facility]200 (BEAKER) (test code = [facility], 1538) [place] [address] 0: Latex Spooler/Techni herson ID = [id number] for JAVAN , BC POCT-GLUCOSE [id number] 20:23:00 Test Item Value Reference Range Interpretation Comments POC-GLUCOSE METER 140 mg/dL 70-110 H : TESTED A T [facility]200 (BEAKER) (test code [facility], = 1538) [place] [address] 0: Latex Spooler/Techni herson ID = [id number] for BC EDOUARD POCT-GLUCOSE [id number] 16:13:00 Test Item Value Reference Range Interpretation Comments POC-GLUCOSE METER 163 mg/dL 70-110 H : TESTED A T [facility]200 (BEAKER) (test code [facility] [facility], = 1538) [place] [address] 0: Latex Spooler/Techni herson ID = [id number] for WALDEMAR BAL COMPREHENSIVE METABOLIC [id number] 12:38:00 Test Item Value Reference Range Interpretation [...] PATIEN TS. CBC W/PLT COUNT & AUTO [id number] 12:19:00 Test Item Value Reference Range Interpretation [...] PERCENT (BEAKER) (test code = 2801) POCT-GLUCOSE [id number] 11:45:00 Test Item Value Reference Range Interpretation Comments POC-GLUCOSE METER 122 mg/dL 70-110 H : TESTED A T [facility]200 (BEAKER) (test code [facility] [facility], = 1538) [place] [address] 0: Latex Spooler/Techni herson ID = [id number] for WALDEMAR BAL POCT-GLUCOSE [id number] 06:46:00 Test Item Value Reference Range Interpretation Comments POC-GLUCOSE METER 105 mg/dL 70-110 : TESTED A T [facility] (BEAKER) (test code [facility] [facility], = 1538) [place] [address] 0: Latex Spooler/Techni herson ID = [id number] for NATHAN EDWINAPOLLO Soriano POCT-GLUCOSE [id number] 20:54:00 Test Item Value Reference Range Interpretation Comments POC-GLUCOSE METER 159 mg/dL 70-110 H : TESTED A T [facility]200 (BEAKER) (test code [facility] [facility], = 1538) [place] [address] 0: Latex Spooler/Techni herson ID = [id number] for NATHANDARWIN EVANSW POCT-GLUCOSE [id number] 17:04:00 Test Item Value Reference Range Interpretation Comments POC-GLUCOSE METER 133 mg/dL 70-110 H : TESTED A T [facility]200 (BEAKER) (test code [facility] [facility], = 1538) [place] [address] 0: Latex Spooler/Techni herson ID = [id number] for OMIW SHANNAN, SYRIETA POCT-GLUCOSE [id number] 11:21:00 Test Item Value Reference Range Interpretation Comments POC-GLUCOSE METER 124 mg/dL 70-110 H : TESTED A T [facility]200 (BEAKER) (test code [facility], = 1538) [place] [address] 0: Latex Spooler/Techni herson ID = [id number] for OMIW SHANNAN, SYRIETA POCT-GLUCOSE [id number] 06:43:00 Test Item Value Reference Range Interpretation Comments POC-GLUCOSE METER 90 mg/dL 70-110 : TESTED A T [facility] 7200 (BEAKER) (test code = CAMBRI DGE BLDG A, 1538) [place] [address] 0: Latex Spooler/Techni herson ID = [id number] for POLLO CABALLERO POCT-GLUCOSE [id number] 20:55:00 Test Item Value Reference Range Interpretation Comments POC-GLUCOSE METER 169 mg/dL 70-110 H : TESTED A T [facility] 7200 (BEAKER) (test code CAMBR[place]G E BLDG A, = 1538) [place] [address] 0: Latex Spooler/Techni herson ID = [id number] for POLLO CABALLERO POCT-GLUCOSE [id number] 16:35:00 Test Item Value Reference Range Interpretation Comments POC-GLUCOSE METER 164 mg/dL 70-110 H : TESTED A T [facility] 7200 (BEAKER) (test code CAMBR[place]G E BLDG A, = 1538) [place] [address] 0: Latex Spooler/Techni herson ID = [id number] for WALDEMAR BAL POCT-GLUCOSE [id number] 11:25:00 Test Item Value Reference Range Interpretation Comments POC-GLUCOSE METER 174 mg/dL 70-110 H : TESTED A T [facility] 7200 (BEAKER) (test code CAMBR[place]G E BLDG A, = 1538) [place] [address] 0: Latex Spooler/Techni herson ID = [id number] for WALDEMAR BAL POCT-GLUCOSE [id number] 06:32:00 Test Item Value Reference Range Interpretation Comments POC-GLUCOSE METER 108 mg/dL 70-110 : TESTED A T [facility] 7200 (BEAKER) (test code CAMBRIDG E BLDG A, = 1538) [place] [address] 0: Latex Spooler/Techni herson ID = [id number] for ROSY FAUST POCT-GLUCOSE [id number] 20:44:00 Test Item Value Reference Range Interpretation Comments POC-GLUCOSE METER 194 mg/dL 70-110 H : TESTED A T [facility] (BEAKER) (test code CAMBRIDG E BLDG A, = 1538) [place] 7703 0: Latex Spooler/Techni herson ID = [id number] for BENNY , ROSY POCT-GLUCOSE [id number] 16:59:00 Test Item Value Reference Range Interpretation Comments POC-GLUCOSE METER 156 mg/dL 70-110 H : TESTED A T [facility] (BEAKER) (test code CAMBRIDG E BLDG A, = 1538) [place] [address] 0: Latex Spooler/Techni herson ID = [id number] for CASEY ANO, JUCEL FRAN POCT-GLUCOSE [id number] 11:42:00 Test Item Value Reference Range Interpretation Comments POC-GLUCOSE METER 181 mg/dL 70-110 H : TESTED A T [facility] (BEAKER) (test code CAMBRIDG E BLDG A, = 1538) [place] [address] 0: Latex Spooler/Techni herson ID = [id number] for CASEY ANO, JUCEL FRAN POCT-GLUCOSE [id number] 06:10:00 Test Item Value Reference Range Interpretation Comments POC-GLUCOSE METER 83 mg/dL 70-110 : TESTED A T [facility] (BEAKER) (test code = CAMBRI DGE BLDG A, 1538) [place] [address] 0: Latex Spooler/Techni herson ID = [id number] for BENNY , ROSY POCT-GLUCOSE [id number] 20:42:00 Test Item Value Reference Range Interpretation Comments POC-GLUCOSE METER 221 mg/dL 70-110 H : TESTED A T [facility] (BEAKER) (test code CAM[place] E BLDG A, = 1538) [place] [address] 0: Latex Spooler/Techni herson ID = [id number] for BENNY , ROSY ANAEROBIC [id number] 18:21:00 Test Item Value Reference Range Interpretation Comments CULTURE (BEAKER) (test No anaerobes isolated code = 1095) POCT-GLUCOSE [id number] 16:23:00 Test Item Value Reference Range Interpretation Comments POC-GLUCOSE METER 193 mg/dL 70-110 H : TESTED A T [facility] (BEAKER) (test code CAMBR[place] E BLDG A, = 1538) [place] [address] 0: Latex Spooler/Techni herson ID = [id number] for AVIVA PRUITT POCT-GLUCOSE [id number] 11:54:00 Test Item Value Reference Range Interpretation Comments POC-GLUCOSE METER 117 mg/dL 70-110 H : TESTED A T [facility] (BEAKER) (test code CAMBCATRACHITO E BLDG A, = 1538) [place] [address] 0: Latex Spooler/Techni herson ID = [id number] for AVIVA PRUITT POCT-GLUCOSE [id number] 06:35:00 Test Item Value Reference Range Interpretation Comments POC-GLUCOSE METER 90 mg/dL 70-110 : TESTED A T [facility] (BEAKER) (test code = CAMBRI DGE BLDG A, 1538) [place] [address] 0: Latex Spooler/Techni herson ID = [id number] for POLLO CABALLERO BASIC METABOLIC [id number] 05:02:00 Test Item Value Reference Range Interpretation [...] fL 9.0-12.3 (test code = 754) POCT-GLUCOSE [id number] 20:52:00 Test Item Value Reference Range Interpretation Comments POC-GLUCOSE METER 164 mg/dL 70-110 H : TESTED A T [facility] (BEAKER) (test code CAM[place] E BLDG A, = 1538) [place] [address] 0: Latex Spooler/Techni herson ID = [id number] for POLLO CABALLERO POCT-GLUCOSE [id number] 15:52:00 Test Item Value Reference Range Interpretation Comments POC-GLUCOSE METER 142 mg/dL 70-110 H : TESTED A T [facility] (BEAKER) (test code CAMBR[place]G E BLDG A, = 1538) [place] [address] 0: Latex Spooler/Techni herson ID = [id number] for OMIW SHANNAN, SYRIETA POCT-GLUCOSE [id number] 11:54:00 Test Item Value Reference Range Interpretation Comments POC-GLUCOSE METER 153 mg/dL 70-110 H : TESTED A T [facility] (BEAKER) (test code CAMBR[place]G E BLDG A, = 1538) [place] [address] 0: Latex Spooler/Techni herson ID = [id number] for OMIW SHANNAN, SYRIETA POCT-GLUCOSE [id number] 06:30:00 Test Item Value Reference Range Interpretation Comments POC-GLUCOSE METER 95 mg/dL 70-110 : TESTED A T [facility] (BEAKER) (test code = CAMBRI DGE BLDG A, 1538) [place] [address] 0: Latex Spooler/Techni herson ID = [id number] for POLLO CABALLERO POCT-GLUCOSE [id number] 20:31:00 Test Item Value Reference Range Interpretation Comments POC-GLUCOSE METER 211 mg/dL 70-110 H : TESTED A T [facility] (BEAKER) (test code CAM[place] E BLDG A, = 1538) [place] [address] 0: Latex Spooler/Techni herson ID = [id number] for POLLO CABALLERO POCT-GLUCOSE [id number] 16:40:00 Test Item Value Reference Range Interpretation Comments POC-GLUCOSE METER 184 mg/dL 70-110 H : TESTED A T [facility] (BEAKER) (test code [place] E BLDG A, = 1538) [place] [address] 0: Latex Spooler/Techni herson ID = [id number] for IJEOMA CACERES POCT-GLUCOSE [id number] 12:38:00 Test Item Value Reference Range Interpretation Comments POC-GLUCOSE METER 102 mg/dL 70-110 : TESTED A T [facility] (BEAKER) (test code CAM[place] E BLDG A, = 1538) [place] [address] 0: Latex Spooler/Techni herson ID = [id number] for RUSSELL CADENAA POCT-GLUCOSE [id number] 06:36:00 Test Item Value Reference Range Interpretation Comments POC-GLUCOSE METER 107 mg/dL 70-110 : TESTED A T [facility] (BEAKER) (test code CAM[place] E BLDG A, = 1538) [place] [address] 0: Latex Spooler/Techni herson ID = [id number] for POLLO CABALLERO POCT-GLUCOSE [id number] 21:08:00 Test Item Value Reference Range Interpretation Comments POC-GLUCOSE METER 189 mg/dL 70-110 H : TESTED A T [facility] (BEAKER) (test code CAMBR[place]G E BLDG A, = 1538) [place] [address] 0: Latex Spooler/Techni herson ID = [id number] for EHSAN ARROYOA POCT-GLUCOSE [id number] 16:19:00 Test Item Value Reference Range Interpretation Comments POC-GLUCOSE METER 194 mg/dL 70-110 H : TESTED A T [facility] (BEAKER) (test code CAMBR[place] E BLDG A, = 1538) [place] [address] 0: Latex Spooler/Techni herson ID = [id number] for OMIW SHANNAN, WANDAIETA POCT-GLUCOSE [id number] 12:19:00 Test Item Value Reference Range Interpretation Comments POC-GLUCOSE METER 136 mg/dL 70-110 H : TESTED A T [facility] (BEAKER) (test code CAMBR[place] E BLDG A, = 1538) [place] [address] 0: Latex Spooler/Techni herson ID = [id number] for OMIW SHANNAN, SYRIETA POCT-GLUCOSE [id number] 06:29:00 Test Item Value Reference Range Interpretation Comments POC-GLUCOSE METER 74 mg/dL 70-110 : TESTED A T [facility] (BEAKER) (test code = CAMB[place] DGE BLDG A, 1538) [place] [address] 0: Latex Spooler/Techni herson ID = [id number] for BC EDOUARD COMPREHENSIVE METABOLIC [id number] 05:45:00 Test Item Value Reference Range Interpretation [...] S NOT APPLICABLE FOR DIALYSIS PATIEN TS. [id number] 05:45:00 Test Item Value Reference Range Interpretation Comments MAGNESIUM (BEAKER) (test code = 2.0 mg/dL 1.6-2.6 627) CBC W/PLT COUNT & AUTO [id number] 05:28:00 Test Item Value Reference Range Interpretation [...] PERCENT (BEAKER) (test code = 2801) POCT-GLUCOSE [id number] 21:03:00 Test Item Value Reference Range Interpretation Comments POC-GLUCOSE METER 188 mg/dL 70-110 H : TESTED A T [facility] (BEAKER) (test code CAMBRIDG E BLDG A, = 1538) [facility] 7703 0: Latex Spooler/Techni herson ID = [id number] for LARS EDOUARDA POCT-GLUCOSE [id number] 17:00:00 Test Item Value Reference Range Interpretation Comments POC-GLUCOSE METER 136 mg/dL 70-110 H : TESTED A T [facility] (BEAKER) (test code CAMBRIDG E BLDG A, = 1538) [facility] 7703 0: Latex Spooler/Techni herson ID = [id number] for NWAAmina IAKU, IJEOMA POCT-GLUCOSE [id number] 12:08:00 Test Item Value Reference Range Interpretation Comments POC-GLUCOSE METER 115 mg/dL 70-110 H : TESTED A T [facility] (BEAKER) (test code = BERTSREE R [facility], 1538) [address]: Latex Spooler/Techni herson ID = [id number] for CHINTAN LLIAMS, TYNEKA POCT-GLUCOSE [id number] 07:44:00 Test Item Value Reference Range Interpretation Comments POC-GLUCOSE METER 74 mg/dL 70-110 : TESTED A T [facility] 6720 (BEAKER) (test code = LOREE Ramsey [facility], 1538) [address]: Latex Spooler/Techni herson ID = [id number] for MARIA C LEWIS [id number] 07:37:00 Test Item Value Reference Range Interpretation Comments MAGNESIUM (BEAKER) (test code = 2.0 mg/dL 1.6-2.6 627) Latex Spooler ID - EMERSONBASIC METABOLIC [id number] 07:37:00 Test Item Value Reference Range Interpretation [...] S NOT APPLICABLE FOR DIALYSIS PATIEN TS. Latex Spooler ID - EMERSONCBC (HEMOGRAM ONLY)2019-12-18 07:02:00 Test [...] 0-0 (BEAKER) (test code = 413) POCT-GLUCOSE [id number] 21:19:00 Test Item Value Reference Range Interpretation Comments POC-GLUCOSE METER 190 mg/dL 70-110 H : TESTED A T [facility]20 (BEAKER) (test code = [facility], 153) [address]: Latex Spooler/Techni herson ID = [id number] for Barb Martins POCT-GLUCOSE [id number] 18:00:00 Test Item Value Reference Range Interpretation Comments POC-GLUCOSE METER 140 mg/dL 70-110 H : TESTED A T [facility] 6720 (BEAKER) (test code = [facility], 153) 69[address]: Latex Spooler/Techni herson ID = [id number] for WI LLIAMS, TYNEKA POCT-GLUCOSE [id number] 11:50:00 Test Item Value Reference Range Interpretation Comments POC-GLUCOSE METER 136 mg/dL 70-110 H : TESTED A T [facility] 6720 (BEAKER) (test code = [facility], 153) [address]: Latex Spooler/Techni herson ID = [id number] for [place] LLIAMS, TYNEKA POCT-GLUCOSE [id number] 07:40:00 Test Item Value Reference Range Interpretation Comments POC-GLUCOSE METER 82 mg/dL 70-110 : TESTED A T [facility] 6720 (BEAKER) (test code = [facility], 153) [address]: Latex Spooler/Techni herson ID = [id number] for WILL IAMS, TYNEKA [id number] 06:10:00 Test Item Value Reference Range Interpretation Comments MAGNESIUM (BEAKER) (test code = 2.2 mg/dL 1.6-2.6 627) Latex Spooler ID - BSBASIC METABOLIC [id number] 06:10:00 Test Item Value Reference Range Interpretation [...] S NOT APPLICABLE FOR DIALYSIS PATIEN TS. Latex Spooler ID - BSCBC (HEMOGRAM ONLY)2019-12-17 05:34:00 Test [...] 0-0 (BEAKER) (test code = 413) POCT-GLUCOSE [id number] 21:02:00 Test Item Value Reference Range Interpretation Comments POC-GLUCOSE METER 153 mg/dL 70-110 H : TESTED A T [facility] 6720 (BEAKER) (test code = [facility] R [facility], 1538) [address]: Latex Spooler/Techni herson ID = [id number] for PREETI WYATT POCT-GLUCOSE [id number] 16:46:00 Test Item Value Reference Range Interpretation Comments POC-GLUCOSE METER 155 mg/dL 70-110 H : TESTED A T [facility] 6720 (BEAKER) (test code = [facility] R [facility], 1538) 98[address]: Latex Spooler/Techni herson ID = [id number] for YADI KU RAD, CHEST, 1 VIEW, NON [id number] 15:53:00Reason for exam:->RIGHT PICC LINE TIP VERIFICATIONShould this be performed at the bedside?->YesFINAL REPORT CLINICAL HISTORY:RIGHT PICC LINE TIP VERIFICATION TECHNIQUE: 1 view of the chest. COMPARISON: None IMPRESSION: The tip of the right PICC line is near the cavoatrial junction. There are no focal infiltrates or effusions. The cardiomediastinal silhouette is magnified bytechnique. There is a right humeral head suture anchor. Signed: Pollo Cortez MDReport Verified Date/Time: 12/16/2019 15:53:59 Reading Location: [facility] Radiology Reading Room TISSUE [id number] 13:27:00Surgical Pathology Report Case: [id number] Authorizing Provider: Gabriel Stovall DPM Collected: 12/02/2019 08:41 AM Ordering Location: [facility] PERIOPERATIVE Received: 12/02/2019 09:24 AM SERVICES Pathologist: Cassia Xiao MD Specimens: A) - Toe, Right, 2nd digit B) - Foot, Right, Right footC) - Foot, Right, 2, 3 metatarsal A. RIGHT SECOND TOE, DISARTICULATION: - EXTENSIVE DISTAL ISCHEMIC CHANGES; FOCAL GANGRENOUS NECROSIS - NO DEFINITVE OSTEOMYELITISB. RIGHT FOOT, EXCISION OF BONE AND SOFT TISSUE FRAGMENTS: - PREDOMINANTLY SOFT TISSUE WITH ISCHEMIC CHANGES AND FOCAL CALCIFICATION - NEGATIVE FOR OSTEOMYELITISC. RIGHT FOOT, SECOND AND THIRD METATARSAL BONES, PARTIAL EXCISIONS: - FOCAL ACUTE OSTEOMYELITIS - ASSOCIATED ISCHEMIC AND GANGRENOUS CHANGES Signing Pathologist Direct Phone Line: [phone] signed by Cassia Xiao MD on 12/16/2019 at 1:27 PMSlides for microscopic examination are received on 12/08/2019.[id number] X 2Gangrene of right foot ([facility]) [I96] [id number] 87311O. Toe, rightB. Foot, rightC. Foot, rightA. Received [...] affected bone is red-pink, trabeculated and firm. [employer] Salt sections are submitted as follows:Section codeA1-skin and soft tissue margin en faceA2-bone margin en face following decalcificationA3-lesion and underlying affected bone following decalcificationB. Received in formalin labeled with the patient's name, accession number and "right foot" is a 2.5 x 1.5 x 0.5 cm portion of dusky shabazz- pink soft tissue, which is entirely submittedin B1-B2.C. Received in formalin labeled with the patient's name, accession number and "right foot second and third metatarsal" are two shabazz-yellow trabeculated bone fragments measuring up to 1.5 cm in greatest dimension with attached soft tissue. The articular surfaces are smooth. The cut surface is shabazz-yellow, trabeculated and firm. [employer] Dried Salt sections are submitted in C1-C2 following decalcification.SHARON Leon (ASCP)document control supervisor-C. The samples show variable amounts of gangrenous necrosis. In the C- sample, in slide C-1, there is prominent associated acute osteomyelitis in the C-1 slide. Some articular cartilage does not show significant inflammation.POCT- GLUCOSE [id number] 12:00:00 Test Item Value Reference Range Interpretation Comments POC-GLUCOSE METER 122 mg/dL 70-110 H : TESTED A T [facility] 6720 (BEAKER) (test code = LOREE Ramsey [facility], 1538) 6[address]: Latex Spooler/Techni herson ID = [id number] for BERRY NTERMARCOSWITHA [id number] 07:46:00 Test Item Value Reference Range Interpretation Comments MAGNESIUM (BEAKER) (test code = 2.2 mg/dL 1.6-2.6 627) Latex Spooler ID - ANGELINA FBASIC METABOLIC [id number] 07:46:00 Test Item Value Reference Range Interpretation [...] S NOT APPLICABLE FOR DIALYSIS PATIEN TS. Latex Spooler ID Bryant ALFARO FCBC (HEMOGRAM ONLY)2019-12-16 07:16:00 Test Item [...] 0-0 (BEAKER) (test code = 413) POCT-GLUCOSE [id number] 07:02:00 Test Item Value Reference Range Interpretation Comments POC-GLUCOSE METER 99 mg/dL 70-110 : TESTED A T [facility] 6720 (BEAKER) (test code = [facility], 1538) 92363: Latex Spooler/Techni herson ID = [id number] for YADI SANDERSON POCT-GLUCOSE [id number] 21:27:00 Test Item Value Reference Range Interpretation Comments POC-GLUCOSE METER 287 mg/dL 70-110 H : TESTED A T [facility] 6720 (BEAKER) (test code = [facility], 1538) 42206: Latex Spooler/Techni herson ID = [id number] for PREETI WYATT TISSUE [id number] 18:37:00Surgical Pathology Report Case: [id number] Authorizing Provider: Gabriel Stovall DPM Collected: 12/05/2019 01:01 PM Ordering Location: [facility] PERIOPERATIVE Received: 12/05/2019 01:40 PM SERVICES Pathologist: Naresh Tillman MD Specimen: Foot, Right, right foot amputation RIGHT FOOT, TRANSMETATARSAL AMPUTATION: - SKIN AND SOFT TISSUE WITH ACUTE INFLAMMATION AND ABSCESS FORMATION, AND NECROSIS - SKIN AND SOFT TISSUE RESECTION MARGIN, INVOLVED BY ABSCESS FORMATION - BONE RESECTION MARGIN WITH FEATURES OF ACUTE OSTEOMYELITIS Signing Pathologist Direct Phone Line: [phone] signed by Naresh Tillman MD on 12/15/2019 at 6:37 [id number], [id number]-xxiqoak surgical wound, initial encounter [T81.89XA]84943, 80968, 95798, 64206Umka, rightReceived in formalin labeled with the patient's name, accession number and "right foot" is a 10.3 x 7.5 x 4.3 cm right transmetatarsal amputation displaying digits 1, 4-5. The skin is shabazz-pink and displays a 5.0 x 2.8 cm shabazz ulcerated lesion at the previous site of amputation that is involving the lateral aspect of the first digit and medial aspect of the fourthdigit, and is less than 0.1 cm from the skin and soft tissue margin (inked blue). The underlying affected bone is shabazz-yellow, trabeculated and firm. [employer] Salt sections are submitted as follows:Section codeA1-lesion and skin and soft tissue margin en fckzU5-F3-tizj margin following decalcificationA4-skin lesionA5-skin lesion and underlying affected bone following decalcificationSHARON Leon (ASCP)cmPerformed.POCT-GLUCOSE [id number] 16:55:00 Test Item Value Reference Range Interpretation Comments POC-GLUCOSE METER 149 mg/dL 70-110 H : TESTED A T [facility]20 ([employer]) (test code = [employer] [facility], 1538) 46297: Latex Spooler/Techni herson ID = [id number] for AMBIKA SUAREZ CHISHERYL POCT-GLUCOSE [id number] 11:57:00 Test Item Value Reference Range Interpretation Comments POC-GLUCOSE METER 251 mg/dL 70-110 H : TESTED A T [facility] 6720 ([employer]) (test code = [employer] [facility], 1538) 78124: Latex Spooler/Techni herson ID = [id number] for YADI KU SURGICALLY OBTAINED CULTURE + GRAM [id number] 10:43:00 Test Item Value Reference Range Interpretation Comments CULTURE (BEAKER) (test No growth code = 1095) GRAM STAIN RESULT <1+ White blood cells (BEAKER) (test code = seen 1123) GRAM STAIN RESULT No organisms seen (BEAKER) (test code = 55928) POCT-GLUCOSE [id number] 07:10:00 Test Item Value Reference Range Interpretation Comments POC-GLUCOSE METER 130 mg/dL 70-110 H : TESTED A T [facility] 6720 (BEAKER) (test code = [place], 1538) 730[address]: Latex Spooler/Techni herson ID = [id number] for BERRY NTER, MARCOSWITHA [id number] 06:12:00 Test Item Value Reference Range Interpretation Comments MAGNESIUM (BEAKER) (test code = 2.3 mg/dL 1.6-2.6 627) Latex Spooler ID - FARHAT LBASIC METABOLIC [id number] 06:12:00 Test Item Value Reference Range Interpretation [...] S NOT APPLICABLE FOR DIALYSIS PATIEN TS. Latex Spooler ID - PIAYA LCBC (HEMOGRAM ONLY)2019-12-15 05:22:00 [...] 0-0 (BEAKER) (test code = 413) POCT-GLUCOSE [id number] 21:27:00 Test Item Value Reference Range Interpretation Comments POC-GLUCOSE METER 225 mg/dL 70-110 H : TESTED A T [facility] 6720 (BEAKER) (test code = [facility], [facility]) 17765: Latex Spooler/Techni herson ID = [id number] for DA VIS, ZOILA POCT-GLUCOSE [id number] 17:30:00 Test Item Value Reference Range Interpretation Comments POC-GLUCOSE METER 219 mg/dL 70-110 H : TESTED A T [facility] 6720 (BEAKER) (test code = [facility], 153) 70142: Latex Spooler/Techni herson ID = [id number] for SA NCHEZ, KARY POCT-GLUCOSE [id number] 12:19:00 Test Item Value Reference Range Interpretation Comments POC-GLUCOSE METER 184 mg/dL 70-110 H : TESTED A T [facility] 6720 (BEAKER) (test code = [facility], 153) 10254: Latex Spooler/Techni herson ID = [id number] for SA NCHEZ, KARY POCT-GLUCOSE [id number] 08:06:00 Test Item Value Reference Range Interpretation Comments POC-GLUCOSE METER 126 mg/dL 70-110 H : TESTED A T [facility] 6720 (BEAKER) (test code = [place], 1538) 19997: Latex Spooler/Techni herson ID = [id number] for KARY MAC [id number] 06:11:00 Test Item Value Reference Range Interpretation Comments MAGNESIUM (BEAKER) (test code = 2.3 mg/dL 1.6-2.6 627) Latex Spooler ID - PIAYA LBASIC METABOLIC [id number] 06:11:00 Test Item Value Reference Range Interpretation [...] S NOT APPLICABLE FOR DIALYSIS PATIEN TS. Latex Spooler ID - PIAYA LCBC (HEMOGRAM ONLY)2019-12-14 05:21:00 [...] 0-0 (BEAKER) (test code = 413) POCT-GLUCOSE [id number] 21:54:00 Test Item Value Reference Range Interpretation Comments POC-GLUCOSE METER 240 mg/dL 70-110 H : TESTED A T [facility] 6720 (BEAKER) (test code = [facility], 153) 37428: Latex Spooler/Techni herson ID = [id number] for GREG BARBOSA POCT-GLUCOSE [id number] 17:05:00 Test Item Value Reference Range Interpretation Comments POC-GLUCOSE METER 145 mg/dL 70-110 H : TESTED A T [facility] 6720 (BEAKER) (test code = [facility], 153) 99420: Latex Spooler/Techni herson ID = [id number] for Do minguez, Abner SPIN/CONCENTRATION [id number] 12:25:00 Test Item Value Reference Range Interpretation Comments CONCENTRATION CHARGED (BEAKER) (test Done code = 2657) POCT-GLUCOSE [id number] 11:27:00 Test Item Value Reference Range Interpretation Comments POC-GLUCOSE METER 294 mg/dL 70-110 H : TESTED A T [facility] 6720 (BEAKER) (test code = [facility], 153) 54735: Latex Spooler/Techni herson ID = [id number] for Do minguez, Abner POCT-GLUCOSE [id number] 07:32:00 Test Item Value Reference Range Interpretation Comments POC-GLUCOSE METER 109 mg/dL 70-110 : TESTED A T [facility] 6720 (BEAKER) (test code = L[place] Ramsey [place], 1538) 60965: Latex Spooler/Techni herson ID = [id number] for Abner Rowan CBC (HEMOGRAM ONLY)2019-12-13 06:36:00 [...] WBC 0-0 (BEAKER) (test code = 413) [id number] 05:43:00 Test Item Value Reference Range Interpretation Comments MAGNESIUM (BEAKER) (test code = 2.3 mg/dL 1.6-2.6 627) Latex Spooler ID - LINDSAY WBASIC METABOLIC [id number] 05:43:00 Test Item Value Reference Range Interpretation [...] S NOT APPLICABLE FOR DIALYSIS PATIEN TS. Latex Spooler ID - LINDSAY WPOCT-GLUCOSE [id number] 21:23:00 Test Item Value Reference Range Interpretation Comments POC-GLUCOSE METER 225 mg/dL 70-110 H : TESTED A T [facility] 6720 ([employer]) (test code = [facility], [facility]) 71503: Latex Spooler/Techni herson ID = [id number] for CRESENCIO BAH POCT-GLUCOSE [id number] 17:01:00 Test Item Value Reference Range Interpretation Comments POC-GLUCOSE METER 199 mg/dL 70-110 H : TESTED A T [facility] 6720 (BEAKER) (test code = [facility], [facility]8) 56349: Latex Spooler/Techni herson ID = [id number] for MA RTIN, CHIANNA POCT-GLUCOSE [id number] 12:55:00 Test Item Value Reference Range Interpretation Comments POC-GLUCOSE METER 148 mg/dL 70-110 H : TESTED A T [facility] 6720 (BEAKER) (test code = [facility], 1538) 54608: Latex Spooler/Techni herson ID = [id number] for TA KAROLKIRILL KYLER POCT-GLUCOSE [id number] 08:06:00 Test Item Value Reference Range Interpretation Comments POC-GLUCOSE METER 179 mg/dL 70-110 H : TESTED A T [facility] 6720 (BEAKER) (test code = [facility], 1538) 96767: Latex Spooler/Techni herson ID = [id number] for MA RTIN, CHIANNA CBC (HEMOGRAM ONLY)2019-12-12 [...] WBC 0-0 (BEAKER) (test code = 413) [id number] 06:47:00 Test Item Value Reference Range Interpretation Comments MAGNESIUM (BEAKER) (test code = 2.3 mg/dL 1.6-2.6 627) Latex Spooler ID - LABASIC METABOLIC [id number] 06:47:00 Test Item Value Reference Range Interpretation [...] S NOT APPLICABLE FOR DIALYSIS PATIEN TS. Latex Spooler ID - LAPOCT-GLUCOSE [id number] 21:12:00 Test Item Value Reference Range Interpretation Comments POC-GLUCOSE METER 285 mg/dL 70-110 H : TESTED A T [facility] 6720 (BEAKER) (test code = [facility], 1538) 05543: Latex Spooler/Techni herson ID = [id number] for CRESENCIO BAH POCT-GLUCOSE [id number] 16:56:00 Test Item Value Reference Range Interpretation Comments POC-GLUCOSE METER 226 mg/dL 70-110 H : TESTED A T [facility] 6720 (BEAKER) (test code = [facility], 1538) 26781: Latex Spooler/Techni herson ID = [id number] for [place] LLIAMS, TYNEKA POCT-GLUCOSE [id number] 11:57:00 Test Item Value Reference Range Interpretation Comments POC-GLUCOSE METER 293 mg/dL 70-110 H : TESTED A T [facility] 6720 (BEAKER) (test code = [facility], 1538) 12442: Latex Spooler/Techni herson ID = [id number] for [place] LLIAMS, TYNEKA POCT-GLUCOSE [id number] 07:36:00 Test Item Value Reference Range Interpretation Comments POC-GLUCOSE METER 152 mg/dL 70-110 H : TESTED A T [facility] 6720 (BEAKER) (test code = [facility], 1538) 43440: Latex Spooler/Techni herson ID = [id number] for [place] LLIAMS, TYNEKA [id number] 06:31:00 Test Item Value Reference Range Interpretation Comments MAGNESIUM (BEAKER) 2.4 mg/dL 1.6-2.6 Specimen slightly (test code = 627) hemolyzed Latex Spooler ID - FARHAT LBASIC METABOLIC [id number] 06:31:00 Test Item Value Reference Range Interpretation [...] S NOT APPLICABLE FOR DIALYSIS PATIEN TS. Latex Spooler ID - PIAYA LCBC (HEMOGRAM ONLY)2019-12-11 05:58:00 [...] 0-0 (BEAKER) (test code = 413) POCT-GLUCOSE [id number] 21:34:00 Test Item Value Reference Range Interpretation Comments POC-GLUCOSE METER 290 mg/dL 70-110 H : TESTED A T [facility] 6720 (BEAKER) (test code = [facility], 1538) 97526: Latex Spooler/Techni herson ID = [id number] for ZOILA GAMEZ POCT-GLUCOSE [id number] 16:49:00 Test Item Value Reference Range Interpretation Comments POC-GLUCOSE METER 247 mg/dL 70-110 H : TESTED A T [facility] 6720 (BEAKER) (test code = [facility], 1538) 16616: Latex Spooler/Techni herson ID = [id number] for JASON PADRON POCT-GLUCOSE [id number] 11:15:00 Test Item Value Reference Range Interpretation Comments POC-GLUCOSE METER 244 mg/dL 70-110 H : TESTED A T [facility] 6720 (BEAKER) (test code = [facility], 1538) 64830: Latex Spooler/Techni herson ID = [id number] for JASON PADRON [id number] 08:20:00 Test Item Value Reference Range Interpretation Comments MAGNESIUM (BEAKER) (test code = 2.4 mg/dL 1.6-2.6 627) Latex Spooler ID - MINERVA BBASIC METABOLIC [id number] 08:20:00 Test Item Value Reference Range Interpretation [...] S NOT APPLICABLE FOR DIALYSIS PATIEN TS. Latex Spooler ID - MINERVA BPOCT-GLUCOSE [id number] 07:50:00 Test Item Value Reference Range Interpretation Comments POC-GLUCOSE METER 239 mg/dL 70-110 H : TESTED A T [facility] 6720 (BEAKER) (test code = RAKELSREE Ramsey [facility], 1538) 83900: Latex Spooler/Techni herson ID = [id number] for JASON PADRON CBC (HEMOGRAM ONLY)2019-12-10 07:07:00 Test Item [...] 0-0 (BEAKER) (test code = 413) POCT-GLUCOSE [id number] 21:25:00 Test Item Value Reference Range Interpretation Comments POC-GLUCOSE METER 248 mg/dL 70-110 H : TESTED A T [facility] 6720 (BEAKER) (test code = [facility], 1538) 81986: Latex Spooler/Techni herson ID = [id number] for Barb Martins POCT-GLUCOSE [id number] 17:15:00 Test Item Value Reference Range Interpretation Comments POC-GLUCOSE METER 221 mg/dL 70-110 H : TESTED A T [facility] 6720 (BEAKER) (test code = [facility], 1538) 10218: Latex Spooler/Techni herson ID = [id number] for BERRY NTER, HIWITHA POCT-GLUCOSE [id number] 12:00:00 Test Item Value Reference Range Interpretation Comments POC-GLUCOSE METER 220 mg/dL 70-110 H : TESTED A T [facility] 6720 (BEAKER) (test code = [facility], 1538) 53719: Latex Spooler/Techni herson ID = [id number] for HU NTER, HIWITHA [id number] 07:12:00 Test Item Value Reference Range Interpretation Comments MAGNESIUM (BEAKER) (test code = 2.4 mg/dL 1.6-2.6 627) Latex Spooler ID - ANGELINA FBASIC METABOLIC [id number] 07:12:00 Test Item Value Reference Range Interpretation [...] S NOT APPLICABLE FOR DIALYSIS PATIEN TS. Latex Spooler ID - ANGELINA FPOCT-GLUCOSE [id number] 07:04:00 Test Item Value Reference Range Interpretation Comments POC-GLUCOSE METER 176 mg/dL 70-110 H : TESTED A T [facility] 6720 (BEAKER) (test code = [facility] Braulio [facility], 1538) 28929: Latex Spooler/Techni herson ID = [id number] for YADI KU CBC (HEMOGRAM ONLY)2019-12-09 06:51:00 [...] 0-0 (BEAKER) (test code = 413) POCT-GLUCOSE [id number] 22:22:00 Test Item Value Reference Range Interpretation Comments POC-GLUCOSE METER 248 mg/dL 70-110 H : TESTED A T [facility] 6720 (BEAKER) (test code = [facility] [place], 1538) 69345: Latex Spooler/Techni herson ID = [id number] for ZOILA GAMEZ BLOOD [id number] 21:00:00 Test Item Value Reference Range Interpretation Comments CULTURE (BEAKER) (test No growth in 5 days code = 1095) BLOOD [id number] 21:00:00 Test Item Value Reference Range Interpretation Comments CULTURE (BEAKER) (test No growth in 5 days code = 1095) ANAEROBIC [id number] 17:38:00 Test Item Value Reference Range Interpretation Comments CULTURE (BEAKER) (test No anaerobes isolated code = 1095) POCT-GLUCOSE [id number] 16:42:00 Test Item Value Reference Range Interpretation Comments POC-GLUCOSE METER 193 mg/dL 70-110 H : TESTED A T [facility] 6720 (BEAKER) (test code = [facility], 1538) 49613: Latex Spooler/Techni herson ID = [id number] for ASHUTOSH WALTERSADAMARISNDY POCT-GLUCOSE [id number] 12:04:00 Test Item Value Reference Range Interpretation Comments POC-GLUCOSE METER 199 mg/dL 70-110 H : TESTED A T [facility] 6720 (BEAKER) (test code = [facility], 1538) 57244: Latex Spooler/Techni herson ID = [id number] for ASHUTOSH WALTERSA, DAMARISNDY POCT-GLUCOSE [id number] 08:08:00 Test Item Value Reference Range Interpretation Comments POC-GLUCOSE METER 168 mg/dL 70-110 H : TESTED A T [facility] 6720 (BEAKER) (test code = [facility], 1538) 10543: Latex Spooler/Techni herson ID = [id number] for ASHUTOSH WALTERSA, DAMARISNDY [id number] 07:27:00 Test Item Value Reference Range Interpretation Comments MAGNESIUM (BEAKER) (test code = 2.1 mg/dL 1.6-2.6 627) Latex Spooler ID - JORGE ALBERTO CBASIC METABOLIC [id number] 07:27:00 Test Item Value Reference Range Interpretation [...] S NOT APPLICABLE FOR DIALYSIS PATIEN TS. Latex Spooler ID - JUN CCBC (HEMOGRAM ONLY)2019-12-08 06:30:00 [...] 0-0 (BEAKER) (test code = 413) POCT-GLUCOSE [id number] 21:57:00 Test Item Value Reference Range Interpretation Comments POC-GLUCOSE METER 215 mg/dL 70-110 H : TESTED A T [facility] 6720 (BEAKER) (test code = LOR[place] Ramsey [place], 1538) 47311: Latex Spooler/Techni herson ID = [id number] for BART LESLIE POCT-GLUCOSE [id number] 17:22:00 Test Item Value Reference Range Interpretation Comments POC-GLUCOSE METER 151 mg/dL 70-110 H : TESTED A T [facility] 6720 (BEAKER) (test code = LOR[place] Ramsey [place], 1538) 39232: Latex Spooler/Techni herson ID = [id number] for PAVAN ZUÑIGA SURGICALLY OBTAINED CULTURE + GRAM [id number] 13:45:00 Test Item Value Reference Range Interpretation [...] No organisms seen (BEAKER) (test code = 801555) [id number] 06:32:00 Test Item Value Reference Range Interpretation Comments MAGNESIUM (BEAKER) 2.2 mg/dL 1.6-2.6 Specimen slightly (test code = 627) hemolyzed Latex Spooler ID - PIAYA LBASIC METABOLIC [id number] 06:32:00 Test Item Value Reference Range Interpretation [...] S NOT APPLICABLE FOR DIALYSIS PATIEN TS. Latex Spooler ID - PIAYA LCBC (HEMOGRAM ONLY)2019-12-07 05:39:00 [...] 0-0 (BEAKER) (test code = 413) POCT-GLUCOSE [id number] 21:14:00 Test Item Value Reference Range Interpretation Comments POC-GLUCOSE METER 165 mg/dL 70-110 H : TESTED A T [facility] 6720 (BEAKER) (test code = [facility], 1538) 32728: Latex Spooler/Techni herson ID = [id number] for NIC NZANDREA IIILEILANI SPIN/CONCENTRATION [id number] 18:12:00 Test Item Value Reference Range Interpretation Comments CONCENTRATION CHARGED (BEAKER) (test Done code = 2657) POCT-GLUCOSE [id number] 16:48:00 Test Item Value Reference Range Interpretation Comments POC-GLUCOSE METER 155 mg/dL 70-110 H : TESTED A T [facility] 6720 (BEAKER) (test code = [facility], 1538) 30734: Latex Spooler/Techni herson ID = [id number] for HU NTER, HIWITHA POCT-GLUCOSE [id number] 12:18:00 Test Item Value Reference Range Interpretation Comments POC-GLUCOSE METER 163 mg/dL 70-110 H : TESTED A T [facility] 6720 (BEAKER) (test code = [facility], 1538) 96540: Latex Spooler/Techni herson ID = [id number] for SANDHU RRIS, FINESSE POCT-GLUCOSE [id number] 07:11:00 Test Item Value Reference Range Interpretation Comments POC-GLUCOSE METER 106 mg/dL 70-110 : TESTED A T [facility] 6720 (BEAKER) (test code = [facility], 1538) 97779: Latex Spooler/Techni herson ID = [id number] for HU NTER, HIWITHA BLOOD [id number] 06:00:00 Test Item Value Reference Range Interpretation Comments CULTURE (BEAKER) (test No growth in 5 days code = 1095) BLOOD [id number] 06:00:00 Test Item Value Reference Range Interpretation Comments CULTURE (BEAKER) (test No growth in 5 days code = 1095) [id number] 05:55:00 Test Item Value Reference Range Interpretation Comments MAGNESIUM (BEAKER) (test code = 1.8 mg/dL 1.6-2.6 627) Latex Spooler ID - PALOMA MBASIC METABOLIC [id number] 05:55:00 Test Item Value Reference Range Interpretation [...] S NOT APPLICABLE FOR DIALYSIS PATIEN TS. Latex Spooler ID - PALOMA MCBC (HEMOGRAM ONLY)2019-12-06 05:21:00 [...] 0-0 (BEAKER) (test code = 413) POCT-GLUCOSE [id number] 21:16:00 Test Item Value Reference Range Interpretation Comments POC-GLUCOSE METER 158 mg/dL 70-110 H : TESTED A T [facility] 6720 (BEAKER) (test code = LOREE Ramsey [facility], 1538) 52147: Latex Spooler/Techni herson ID = [id number] for NIC ANTOINE III, LEILANI ANAEROBIC [id number] 17:15:00 Test Item Value Reference Range Interpretation Comments CULTURE (BEAKER) (test No anaerobes isolated code = 1095) POCT-GLUCOSE [id number] 16:48:00 Test Item Value Reference Range Interpretation Comments POC-GLUCOSE METER 127 mg/dL 70-110 H : TESTED A T [facility] 6720 (BEAKER) (test code = LOREE Ramsey [facility], 1538) 35633: Latex Spooler/Techni herson ID = [id number] for TERELL GREENWOOD RAD, FOOT, MIN 3 VIEWS, [id number] 16:43:00Reason for exam:->s/p debridementFINAL REPORT TECHNIQUE: Frontal, lateral, and oblique radiographs of the right foot dated 12/05/2019 HISTORY: Status post debridement COMPARISON: Radiographs of the right foot dated12/02/2019. FINDINGS:Patient is status post transmetatarsal amputation with postsurgical fluid and air seen in the soft tissues. No fracture or dislocation. Bones are osteopenic. Lisfranc joint is well aligned on these nonstress views. No bone erosion or soft tissue nodule seen. No radiodense foreign body. IMPRESSION:Postoperative changes associated with transmetatarsal amputation. Signed: Abdoul Barbosa Verified Date/Time: 12/05/2019 16:43:31 Reading Location: [address] Radiology Reading Room SURGICALLY OBTAINED CULTURE + GRAM [id number] 13:21:00 Test Item Value Reference Interpretation Comments [...] No organisms seen (BEAKER) (test code = 873764) POCT-GLUCOSE [id number] 13:08:00 Test Item Value Reference Range Interpretation Comments POC-GLUCOSE METER 127 mg/dL 70-110 H : TESTED A T [facility] 6720 (BEAKER) (test code = [place], 1538) 44428: Latex Spooler/Techni herson ID = [id number] for RENEE ROGEL POCT-GLUCOSE [id number] 08:14:00 Test Item Value Reference Range Interpretation Comments POC-GLUCOSE METER 163 mg/dL 70-110 H : TESTED A T [facility] 6720 (BEAKER) (test code = [place], 1538) 22629: Latex Spooler/Techni herson ID = [id number] for TERELL GREENWOOD [id number] 07:20:00 Test Item Value Reference Range Interpretation Comments MAGNESIUM (BEAKER) (test code = 1.8 mg/dL 1.6-2.6 627) Latex Spooler BRANDEN DOW MBASIC METABOLIC [id number] 07:20:00 Test Item Value Reference Range Interpretation [...] S NOT APPLICABLE FOR DIALYSIS PATIEN TS. Latex Spooler ID Bryant DOW MCBC (HEMOGRAM ONLY)2019-12-05 06:44:00 Test Item Value [...] 0-0 (BEAKER) (test code = 413) POCT-GLUCOSE [id number] 21:18:00 Test Item Value Reference Range Interpretation Comments POC-GLUCOSE METER 146 mg/dL 70-110 H : TESTED A T [facility] 6720 (BEAKER) (test code = [place], 1538) 66062: Latex Spooler/Techni herson ID = [id number] for Barb Martins PLATELET AGGREGATION: DRUG [id number] 17:58:00 Test Item Value Reference Range Interpretation Comments ARACHADONIC ACID 75 % 63-89 RESULT(BEAKER) (test code = 2138) PLATELET AGG DRUG Normal arachidonic INTERPRETATION (BEAKER) acid and ADP results. (test code = ) No M6R57-cojss or aspirin-like drug effect. [id number] Arnav Rouse M.D. ([facility]) (test code = (electonic signature) 2636) PLATELET COUNT AGG 349 K/CU MM 150-450 (BEAKER) (test code = 8886) ADP (BEAKER) (test code 74 % 62-100 = 4654) PLATELET RICH 290 k/cu mm 200-300 PLASMA(BEAKER) (test code = 2134) Platelet function studies by aggregation methodology on samples with platelet count <75,000/CU MMare unreliable; platelet function assessment should not be based on a single test.Latex Spooler ID - [id number]-GLUCOSE [id number] 16:20:00 Test Item Value Reference Range Interpretation Comments POC-GLUCOSE METER 141 mg/dL 70-110 H : TESTED A T [facility] 6720 (BEAKER) (test code = [facility], 1538) 59262: Latex Spooler/Techni herson ID = [id number] for JASON PADRON POCT-GLUCOSE [id number] 11:53:00 Test Item Value Reference Range Interpretation Comments POC-GLUCOSE METER 138 mg/dL 70-110 H : TESTED A T [facility] 6720 (BEAKER) (test code = [facility], 1538) 34114: Latex Spooler/Techni herson ID = [id number] for JASON PADRON POCT-GLUCOSE [id number] 08:18:00 Test Item Value Reference Range Interpretation Comments POC-GLUCOSE METER 93 mg/dL 70-110 : TESTED A T [facility] 6720 (BEAKER) (test code = [facility], 1538) 04826: Latex Spooler/Techni herson ID = [id number] for BARB QUEZADA [id number] 07:55:00 Test Item Value Reference Range Interpretation Comments MAGNESIUM (BEAKER) (test code = 1.8 mg/dL 1.6-2.6 627) Latex Spooler ID - JORGE ALBERTO CBASIC METABOLIC [id number] 07:55:00 Test Item Value Reference Range Interpretation [...] S NOT APPLICABLE FOR DIALYSIS PATIEN TS. Latex Spooler ID - JORGE ALBERTO [id number] 07:33:00 Test Item Value Reference Range Interpretation [...] 0-0 (BEAKER) (test code = 413) POCT-GLUCOSE [id number] 21:23:00 Test Item Value Reference Range Interpretation Comments POC-GLUCOSE METER 143 mg/dL 70-110 H : TESTED A T [facility] 6720 (BEAKER) (test code = [facility] [email or web address] [facility], 1538) 78043: Latex Spooler/Techni herson ID = [id number] for ZOILA GAMEZ POCT-GLUCOSE [id number] 17:01:00 Test Item Value Reference Range Interpretation Comments POC-GLUCOSE METER 143 mg/dL 70-110 H : TESTED A T [facility] 6720 (BEAKER) (test code = [facility] [email or web address] [facility], 1538) 23037: Latex Spooler/Techni herson ID = [id number] for DAMARIS GREENWOODNDY [id number] 14:53:00 Test Item Value Reference Range Interpretation Comments ACTIVATED CLOTTING TIME 257 sec : 74 -137 seconds, (BEAKER) (test code = Baseli ne: TESTED AT 441) [facility] 67[facility], 770 30: Latex Spooler/Techni herson ID = [id number] for YOHANA IBARRAISSA [id number] 14:12:00 Test Item Value Reference Range Interpretation Comments ACTIVATED CLOTTING TIME 235 sec : 74 -137 seconds, (BEAKER) (test code = Baseli ne: TESTED AT 441) [facility] 6720 [facility], 770 30: Latex Spooler/Techni herson ID = [id number] for MARCOS PATEL, CHONG POCT-GLUCOSE [id number] 11:20:00 Test Item Value Reference Range Interpretation Comments POC-GLUCOSE METER 170 mg/dL 70-110 H : [facility] (test code = [facility], 1538) 93130: Latex Spooler/Techni herson ID = [id number] for DAMARIS GREENWOODNDY POCT-GLUCOSE [id number] 08:25:00 Test Item Value Reference Range Interpretation Comments POC-GLUCOSE METER 161 mg/dL 70-110 H : TESTED A T [facility] 6720 (BEAKER) (test code = [facility], 1538) 22207: Latex Spooler/Techni herson ID = [id number] for DAMARIS GREENWOODNDGalindo [id number] 07:44:00 Test Item Value Reference Range Interpretation Comments MAGNESIUM (BEAKER) (test code = 1.8 mg/dL 1.6-2.6 627) Latex Spooler ID - JORGE ALBERTO CBASIC METABOLIC [id number] 07:44:00 Test Item Value Reference Range Interpretation [...] S NOT APPLICABLE FOR DIALYSIS PATIEN TS. Latex Spooler ID - JORGE ALBERTO [id number] 06:52:00 Test Item Value Reference Range Interpretation [...] WBC 0-0 (BEAKER) (test code = 413) [id number] 00:10:00 Test Item Value Reference Range Interpretation Comments PARTIAL THROMBOPLASTIN TIME 95.1 seconds 22.5-36.0 H (BEAKER) (test code = 760) POCT-GLUCOSE [id number] 21:24:00 Test Item Value Reference Range Interpretation Comments POC-GLUCOSE METER 223 mg/dL 70-110 H : TESTED A T [facility] 6720 (BEAKER) (test code = [facility] [email or web address] [facility], 1538) 76055: Latex Spooler/Techni herson ID = [id number] for CRESENCIO BAH VANCOMYCIN LEVEL, [id number] 19:47:00 Test Item Value Reference Range Interpretation Comments VANCOMYCIN TROUGH (BEAKER) (test 13.8 ug/mL 10.0-20.0 code = 522) Latex Spooler ID - [id number] 17:17:00 Test Item Value Reference Range Interpretation Comments PARTIAL THROMBOPLASTIN TIME 37.4 seconds 22.5-36.0 H (BEAKER) (test code = 760) POCT-GLUCOSE [id number] 16:57:00 Test Item Value Reference Range Interpretation Comments POC-GLUCOSE METER 193 mg/dL 70-110 H : TESTED A T [facility] 6720 (BEAKER) (test code = [facility] [email or web address] [facility], 1538) 83642: Latex Spooler/Techni herson ID = [id number] for JASON PADRON RAD, FOOT, MIN 3 VIEWS, [id number] 13:05:00Reason for exam:->s/p debridementFINAL REPORT CLINICAL HISTORY: s/p debridement TECHNIQUE: 3 views of the right foot COMPARISON: 12/01/2019 IMPRESSION: 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 There is gauze packing the soft tissue defect. The remaining bones appear intact. Signed: Pollo Cortez MDRepw[facility] Verified Date/Time: 12/02/2019 13:05:47 Reading Location: [facility] Radiology Reading Room POCT-GLUCOSE [id number] 12:35:00 Test Item Value Reference Range Interpretation Comments POC-GLUCOSE METER 216 mg/dL 70-110 H : TESTED A T [facility] 6720 (BEAKER) (test code = [facility], 1538) 74067: Latex Spooler/Techni herson ID = [id number] for FINESSE MERCEDES POCT-GLUCOSE [id number] 09:24:00 Test Item Value Reference Range Interpretation Comments POC-GLUCOSE METER 232 mg/dL 70-110 H : TESTED A T [facility] 6720 (BEAKER) (test code = [facility], 1538) 15965: Latex Spooler/Techni herson ID = [id number] for VASHTI LINK HEMOGLOBIN [id number] 08:08:00 Test Item Value Reference Range Interpretation Comments HEMOGLOBIN A1C (BEAKER) (test code = 10.0 % 4.3-6.1 H 368) POCT-GLUCOSE [id number] 05:46:00 Test Item Value Reference Range Interpretation Comments POC-GLUCOSE METER 239 mg/dL 70-110 H : TESTED A T [facility] 6720 (BEAKER) (test code = [facility], 1538) 79707: Latex Spooler/Techni herson ID = [id number] for CRESENCIO BAH [id number] 01:51:00 Test Item Value Reference Range Interpretation Comments MAGNESIUM (BEAKER) (test code = 1.8 mg/dL 1.6-2.6 627) Latex Spooler ID - LINDSAY WBASIC METABOLIC [id number] 01:51:00 Test Item Value Reference Range Interpretation [...] S NOT APPLICABLE FOR DIALYSIS PATIEN TS. Latex Spooler ID - LINDSAY [id number] 01:42:00 Test Item Value Reference Range Interpretation [...] 0-0 (BEAKER) (test code = 413) POCT-GLUCOSE [id number] 21:29:00 Test Item Value Reference Range Interpretation Comments POC-GLUCOSE METER 222 mg/dL 70-110 H : TESTED A T [facility] 6720 (BEAKER) (test code = [place], 1538) 24798: Latex Spooler/Techni herson ID = [id number] for PE LINDA TRINIDADLO [id number] 19:59:00 Test Item Value Reference Range Interpretation Comments PARTIAL THROMBOPLASTIN TIME 76.3 seconds 22.5-36.0 H (RICK) (test code = 760) POCT-GLUCOSE [id number] 17:25:00 Test Item Value Reference Range Interpretation Comments POC-GLUCOSE METER 259 mg/dL 70-110 H : TESTED A T [facility] 6720 (RICK) (test code = [place], 1538) 96906: Latex Spooler/Techni herson ID = [id number] for TH HOMERO MERCEDES RAD, FOOT, MIN 3 VIEWS, [id number] 15:46:00Reason for exam:->gangrene FINAL REPORT CLINICAL HISTORY: gangrene TECHNIQUE: 3 views of the right foot COMPARISON: None IMPRESSION: There is diffuse soft tissue swelling with subcutaneous emphysema in the forefoot centered around the third metatarsophalangeal joint. There is been previous amputation acrossthe base of the third proximal phalanx. Superimposed osteomyelitis is difficult to exclude and clinical correlation is advised. Signed: Pollo Cortez MDReport Verified Date/Time: 12/01/2019 15:46:27 Reading Location: [facility] Radiology Reading Room -COV2/RT-PCR ([facility])2019-12-01 14:10:00 Test Item Value Reference Range Interpretation Comments SARS-COV2/RT-PCR (test Not Detected Not Detected, Negative code = 2673413) SARS-COV-2 PERFORMING LAB [facility] (test code = 1545173) Negative results do not preclude SARS-CoV-2 infection [...] of the Act.Fact Sheet for Healthcare Pro viders:https://www.[employer]urtleCell/Documents/Xpert%20Xpress%20SARS%20CoV-2/Fact%20Sh eets/302-3802%33HCNS-KXR-7%20HEALTHCARE%20PROVIDERS%20FACT%20SHEET.pdfFact Sheet for Healthcare Patients:https://www.[employer]/Documents/Xpert%20Xpress%20SARS%20CoV-2/Fact%20Sheets/302-3801%20SARS-COV -2%20PATIENT%20FACT%20SHEET.pdfPerforming Laboratory:[address] [facility].[place], [place] [id number] 12:34:00 Test Item Value Reference Range Interpretation Comments PARTIAL THROMBOPLASTIN TIME 47.2 seconds 22.5-36.0 H (BEAKER) (test code = 760) POCT-GLUCOSE [id number] 12:24:00 Test Item Value Reference Range Interpretation Comments POC-GLUCOSE METER 185 mg/dL 70-110 H : Notified RN/MD: (RICK) (test code = TESTED AT [facility] 6720 1538) [facility], [address]: Latex Spooler/Techni herson ID = [id number] for LENO VALERIOALISSA COMPREHENSIVE METABOLIC [id number] 06:04:00 Test Item Value Reference Range Interpretation [...] S NOT APPLICABLE FOR DIALYSIS PATIEN TS. Latex Spooler ID - PIMICHI LC-REACTIVE [id number] 06:04:00 Test Item Value Reference Range Interpretation Comments C-REACTIVE PROTEIN (BEAKER) (test 13.79 mg/dL 0.00-0.50 H code = 676) Latex Spooler ID - FARHAT [id number] 05:28:00 Test Item Value Reference Range Interpretation Comments PARTIAL THROMBOPLASTIN TIME 35.0 seconds 22.5-36.0 (BEAKER) (test code = 760) 6 hours after starting heparin infusion and as indicated per sliding scaleAPTT 2019-12-01 05:27:00 Test Item Value Reference Range Interpretation Comments PARTIAL THROMBOPLASTIN TIME 33.8 seconds 22.5-36.0 (BEAKER) (test code = 760) Prior to initiating heparinPROTHROMBIN TIME/[id number] 05:26:00 Test Item Value Reference Range Interpretation [...] is 2.5-3.5 for patients wiht mechanical heart valves.Prior to initiating heparinCBC W/PLT COUNT & AUTO [id number] 05:12:00 Test Item Value Reference Range Interpretation [...] % 0-1 PERCENT (BEAKER) (test code = 2809)
--- NOTE | 2023-04-10 10:02 | RAD REPORT ---
EXAM DESCRIPTION: RAD - Shoulder Left 2 View - 04/10/2023 9:44 am CLINICAL HISTORY: Left shoulder pain status post fall FINDINGS: No fracture or dislocation is seen. Osteoporosis Moderate osteoarthritis AC glenohumeral joints.
--- NOTE | 2023-04-10 10:04 | RAD REPORT ---
EXAM DESCRIPTION: RAD - Humerus Left - 04/10/2023 9:44 am CLINICAL HISTORY: Left arm pain status post fall FINDINGS: No fracture is seen
[2023-04-10] MEDS ORDERED: CYCLOBENZAPRINE 10 MG TAB ONE (11:06)
[2023-04-10] MEDS ORDERED: KETOROLAC 30 MG/ML INJ ONE (11:06)
[2023-04-10 11:35] LABS: Specific Gravity 1.016 (1.005-1.030); Transitional Epithelial <5 /HPF (None Seen); Urine Bacteria 20-50 /HPF (<20); Urine Bilirubin NEGATIVE (Negative); Urine Blood 1+ (Negative); Urine Clarity Extremely Turbid (Clear); Urine Color Yellow (Yellow); Urine Glucose 4+ (Over) (Negative); Urine Mucus Slight /HPF (None Seen); Urine Protein 1+ (Negative); Urine RBC 21-50 /HPF (None Seen); Urine Urobilinogen 1+ (Normal)
--- NOTE | 2023-04-10 11:47 | ER ---
Nurse's Notes [facility] Name: Maria Isabel Stacy Age: 77 yrs Sex: Female : 1945 Arrival Date: 04/10/2023 Time: 08:19 Bed 13 Private MD: Diagnosis: Other sprain of left shoulder joint;UTI/ Urinary tract infection, site not specified Presentation: 04/10 08:36 Chief complaint: Patient states: fell 3 days ago and now her left hand is weak and numb iw , when she fell her left arm bent back. 08:36 Acuity: DORCAS 3 iw 08:37 Chief complaint: Patient states: and when I urinate it armas a lot , started 4 days iw ago. Coronavirus screen: At this time, the client does not indicate any symptoms associated with coronavirus-19. Ebola Screen: Patient negative for fever greater than or equal to 101.5 degrees Fahrenheit, and additional compatible Ebola Virus Disease symptoms Patient denies exposure to infectious person. Patient denies travel to an Ebola-affected area in the 21 days before illness onset. No symptoms or risks identified at this time. Initial Sepsis Screen: Does the patient meet any 2 criteria? No. Patient's initial sepsis screen is negative. Does the patient have a suspected source of infection? No. Patient's initial sepsis screen is negative. Risk Assessment: Do you want to hurt yourself or someone else? Patient reports no desire to harm self or others. 08:37 Method Of Arrival: Ambulatory iw Historical: - Allergies: 08:37 No Known Allergies; iw - PMHx: 08:37 Diabetes - IDDM; Hypertensive disorder; neuropathy; iw - PSHx: 08:37 R foot all toes amputated; iw - Immunization history:: Adult Immunizations up to date. - Social history:: Smoking status: Patient denies any tobacco usage or history of. Screenin:53 [facility] ED Fall Risk Assessment (Adult) History of falling in the last 3 months, ko1 including since admission Yes- single mechanical fall (1 pt) Confusion or Disorientation No (0 pts) Intoxicated or Sedated No (0 pts) Impaired Gait Yes (1 pt) Mobility Assist Device Used Yes (1 pt) Altered Elimination No (0 pt) Score/Fall Risk Level 0 - 2 = Low Risk Oriented to surroundings, Maintained a safe environment, Educated pt \T\ family on fall prevention, incl call for assistance when getting out of bed, Assessed \T\ reinforced patient's understanding of fall precautions, Provided non-skid footwear, Hourly rounding (assess needs \T\ fall precautionary measures) done, Used ambulatory aids as needed (educated on \T\ assisted with), Used gait belt as appropriate. Abuse screen: Denies threats or abuse. Denies injuries from another. Nutritional screening: No deficits noted. Tuberculosis screening: No symptoms or risk factors identified. Assessment: 09:53 General: Appears in no apparent distress. uncomfortable, Behavior is calm, cooperative, ko1 appropriate for age. Pain: Complains of pain in left arm. Neuro: No deficits noted. Cardiovascular: No deficits noted. Respiratory: No deficits noted. GI: No deficits noted. : Reports burning with urination. EENT: No deficits noted. Derm: No deficits noted. Musculoskeletal: No deficits noted. Injury Description: pain due to fall onto left arm. Vital Signs: 08:37 BP 98 / 62; Pulse 65; Resp 16; Temp 98.4; Pulse Ox 100% on R/A; iw 10:06 BP 115 / 90; Pulse 92; Resp 16; Pulse Ox 98% ; ko1 11:27 BP 112 / 82; Pulse 88; Resp 16; Pulse Ox 98% ; ko1 ED Course: 08:24 Patient arrived in ED. im 08:25 [facility] Del[facility] jh7 08:25 Imtiaz Pelayo MD is Attending Physician. jh7 08:37 Triage completed. iw 08:38 Arm band placed on. iw 09:44 Cass Lama, RUTH is Primary Nurse. ko1 09:46 XRAY Shoulder LEFT 2 view In Process Unspecified. EDMS 09:46 Humerus Left XRAY In Process Unspecified. EDMS 09:53 Patient has correct armband on for positive identification. Bed in low position. Call ko1 light in reach. Side rails up X 1. Pulse ox on. NIBP on. Door closed. 11:15 Urinalysis W/Microscopic Sent. ko1 11:27 Provided Education on: na. ko1 11:27 No provider procedures requiring assistance completed. Patient did not have IV access ko1 during this emergency room visit. Sling applied to left arm. Administered Medications: 10:55 Drug: Cyclobenzaprine PO 10 mg PO once Route: PO; ko1 12:00 Follow up: Response: No adverse reaction ko1 11:15 Drug: Ketorolac IM 30 mg IM once Route: IM; Site: right deltoid; ko1 12:00 Follow up: Response: No adverse reaction ko1 11:45 Drug: Rocephin (cefTRIAXone) IM 1 grams IM once Route: IM; Site: left gluteus; ko1 12:07 Follow up: Response: No adverse reaction ko1 Medication: 11:27 VIS not applicable for this client. ko1 Outcome: 11:45 Discharge ordered by . fabio 12:03 Discharged to home ambulatory, with family, ko1 12:03 Condition: stable 12:03 Discharge instructions given to patient, family, Instructed on discharge instructions, follow up and referral plans. Demonstrated understanding of instructions, follow-up care, medications, Prescriptions given X 2, 12:06 Patient left the ED. ko1 Signatures: Dispatcher [employer] EDGisselle Sol RN RN Tarah Delarosa FNP FNP [facility] Cass Lama RN RN ko1 Ambar Munoz
--- NOTE | 2023-04-10 11:47 | EDPHYS ---
Physician Documentation [facility] Name: Maria Isabel Stacy Age: 77 yrs Sex: Female : 1945 Arrival Date: 04/10/2023 Time: 08:19 Bed 13 Private MD: ED Physician Imtiaz Pelayo HPI: 04/10 08:30 This 77 yrs old Female presents to ER via Ambulatory with complaints of Fall jh7 Injury, Numbness Of hand, burning/itching with urination. 08:30 Onset: The symptoms/episode began/occurred last night. Associated injuries: The patient jh7 sustained left shoulder pain, decreased range of motion, painful injury. 08:30 Details of fall: The patient fell from an upright position, while walking. [facility] 08:30 Patient reports that she was walking 3 nights ago and slipped and fell, landing on her jh7 left shoulder. Reports that when she moves her shoulder she experiences pain and numbness in her left hand. Also reports burning/vaginal itching with urination for the past 4 days. Denies fever or abdominal pain. Denies chest pain.. Historical: - Allergies: 08:37 No Known Allergies; iw - PMHx: 08:37 Diabetes - IDDM; Hypertensive disorder; neuropathy; iw - PSHx: 08:37 R foot all toes amputated; iw - Immunization history:: Adult Immunizations up to date. - Social history:: Smoking status: Patient denies any tobacco usage or history of. ROS: 08:30 Constitutional: Negative for fever, chills, and weight loss, Eyes: Negative for injury, jh7 pain, redness, and discharge, Neck: Negative for injury, pain, and swelling, Cardiovascular: Negative for chest pain, palpitations, and edema, Respiratory: Negative for shortness of breath, cough, wheezing, and pleuritic chest pain, Abdomen/GI: Negative for abdominal pain, nausea, vomiting, diarrhea, and constipation, Back: Negative for injury and pain, Skin: Negative for injury, rash, and discoloration, Neuro: Negative for headache, weakness, numbness, tingling, and seizure, 08:30 : Positive for burning with urination, Negative for vaginal discharge, 08:30 MS/extremity: Positive for decreased range of motion, pain, tingling, of the left shoulder, 08:30 All other systems are negative, Exam: 08:30 Constitutional: This is a well developed, well nourished patient who is awake, alert, jh7 and in no acute distress. Head/Face: Normocephalic, atraumatic. Eyes: Pupils equal round and reactive to light, extra-ocular motions intact. Lids and lashes normal. Conjunctiva and sclera are non-icteric and not injected. Cornea within normal limits. Periorbital areas with no swelling, redness, or edema. Neck: Trachea midline, no thyromegaly or masses palpated, and no cervical lymphadenopathy. Supple, full range of motion without nuchal rigidity, or vertebral point tenderness. No Meningismus. Cardiovascular: Regular rate and rhythm with a normal S1 and S2. No gallops, murmurs, or rubs. Normal PMI, no JVD. No pulse deficits. Respiratory: Lungs have equal breath sounds bilaterally, clear to auscultation and percussion. No rales, rhonchi or wheezes noted. No increased work of breathing, no retractions or nasal flaring. Back: No spinal tenderness. No costovertebral tenderness. Full range of motion. Skin: Warm, dry with normal turgor. Normal color with no rashes, no lesions, and no evidence of cellulitis. Neuro: Awake and alert, GCS 15, oriented to person, place, time, and situation. Sensory grossly intact. Normal gait. 08:30 Musculoskeletal/extremity: ROM: limited active range of motion, in the right shoulder, limited active range of motion due to pain, Circulation is intact in all extremities. Pulses: are normal with no appreciated deficits, Perfusion: the extremity is normally perfused throughout, pink, warm, with brisk capillary refill, Sensation intact. Pain with abduction beyond 90 degrees of the right shoulder.. Vital Signs: 08:37 BP 98 / 62; Pulse 65; Resp 16; Temp 98.4; Pulse Ox 100% on R/A; iw 10:06 BP 115 / 90; Pulse 92; Resp 16; Pulse Ox 98% ; ko1 11:27 BP 112 / 82; Pulse 88; Resp 16; Pulse Ox 98% ; ko1 MDM: 08:25 Patient medically screened. [facility] 11:55 Differential diagnosis: fracture, sprain, strain. Data reviewed: vital signs, nurses [facility] notes, lab test result(s), urinalysis, bacteruria, radiologic studies, plain films. I considered the following discharge prescriptions or medication management in the emergency department Medications were administered in the Emergency Department. See MAR. Care significantly affected by the following chronic conditions: Diabetes, Hypertension. Counseling: I had a detailed discussion with the patient and/or guardian regarding the historical points, exam findings, and any diagnostic results supporting the discharge/admit diagnosis, to return to the emergency department if symptoms worsen or persist or if there are any questions or concerns that arise at home. Response to treatment: the patient's symptoms have markedly improved after treatment. 04/10 08:36 Order name: Urinalysis W/Microscopic; Complete Time: 11:39 7 04/10 08:36 Order name: XRAY Shoulder LEFT 2 view; Complete Time: 10:14 7 04/10 08:37 Order name: Humerus Left XRAY; Complete Time: 10:14 7 04/10 10:14 Order name: Sling; Complete Time: 10:55 7 04/10 11:45 Order name: Sling; Complete Time: 11:49 [facility] Administered Medications: 10:55 Drug: Cyclobenzaprine PO 10 mg PO once Route: PO; ko1 12:00 Follow up: Response: No adverse reaction ko1 11:15 Drug: Ketorolac IM 30 mg IM once Route: IM; Site: right deltoid; ko1 12:00 Follow up: Response: No adverse reaction ko1 11:45 Drug: Rocephin (cefTRIAXone) IM 1 grams IM once Route: IM; Site: left gluteus; ko1 12:07 Follow up: Response: No adverse reaction ko1 Disposition Summary: 04/10/23 11:45 Discharge Ordered Notes: Location: Home [facility] Problem: new [facility] Symptoms: have improved [facility] Condition: Stable [facility] Diagnosis - Other sprain of left shoulder joint 7 - UTI/ Urinary tract infection, site not specified [facility] Followup: [facility] - With: Private Physician - When: 2 - 3 days - Reason: Recheck today's complaints Discharge Instructions: - Discharge Summary Sheet [facility] - Urinary Tract Infection, Adult 7 - Shoulder Sprain [facility] - How to Use a Sling [facility] Forms: - Medication Reconciliation Form [facility] - Thank You Letter [facility] - Antibiotic Education [facility] - Patient Portal Instructions [facility] - Leadership Thank You Letter [facility] - Family Work Release ko1 Prescriptions: - cefdinir 300 mg Oral capsule - take 1 capsule ORAL route 2 times per day for 7 days; 14 capsule; Refills: 0, [facility] Product Selection Permitted - Naprosyn 500 mg Oral Tablet - take 1 tablet ORAL route 2 times per day take with food; 30 tablet; Refills: 0, [facility] Product Selection Permitted Signatures: Dispatcher [employer] Gisselle Cottrell RN RN Tarah Delarosa FNP [place] [id number] Cass Lama RN RN ko1 Corrections: (The following items were deleted from the chart) 09:33 08:30 Details of fall: The patient fell from an upright position, while walking, [place] [id number]
[2023-04-10] MEDS ORDERED: CEFTRIAXONE 1000 MG/VIAL ONE (11:59)
[2023-04-10] MEDS ORDERED: LIDOCAINE 1% MPF 2 ML AMPULE ONE (11:59)
== END 2023-04-10 12:06 | disposition home or self-care (01) ==
LOC: ER 08:19
DX: S43.492A Other sprain of left shoulder joint, initial encounter (principal); N39.0 Urinary tract infection, site not specified
CPT/HCPCS: 81001; 73060; 73030; J0696

== ENCOUNTER 2023-05-25 09:20 | Emergency (ER) | payer OTHER ==
[2023-05-25 11:57] LABS: Specific Gravity 1.027 (1.005-1.030); Transitional Epithelial <5 /HPF (None Seen); Urine Bacteria None Seen /HPF (<20); Urine Bilirubin NEGATIVE (Negative); Urine Blood Negative (Negative); Urine Clarity Extremely Turbid (Clear); Urine Color Yellow (Yellow); Urine Glucose 3+ (Negative); Urine Granular Casts 0-5 /LPF (None Seen); Urine Mucus Slight /HPF (None Seen); Urine Protein TRACE (Negative); Urine Urobilinogen Normal (Normal)
--- NOTE | 2023-05-25 12:10 | ER ---
Nurse's Notes [facility] Name: Maria Isabel Stacy Age: 77 yrs Sex: Female : 1945 Arrival Date: 05/25/2023 Time: 09:20 Bed 12 Private MD: Diagnosis: Candidiasis of vulva and vagina;Essential (primary) hypertension;Hyperlipidemia, unspecified;Other specified diabetes mellitus without complications Presentation: 05/25 09:40 Coronavirus screen: At this time, the client does not indicate any symptoms associated hb with coronavirus-19. Ebola Screen: No symptoms or risks identified at this time. Initial Sepsis Screen: Does the patient meet any 2 criteria? No. Patient's initial sepsis screen is negative. Does the patient have a suspected source of infection? No. Patient's initial sepsis screen is negative. Risk Assessment: Do you want to hurt yourself or someone else? Patient reports no desire to harm self or others. 09:40 Method Of Arrival: Ambulatory hb 09:41 Chief complaint: Vaginal itching x 3 days, denies pain/urinary symptoms, and needs hb metformin refill. Onset of symptoms was May 22, 2023. 09:41 Acuity: DORCAS 4 hb Historical: - Allergies: 09:40 No Known Allergies; hb - PMHx: 09:40 Diabetes - IDDM; Hypertensive disorder; neuropathy; hb - PSHx: 09:40 R foot all toes amputated; hb - Immunization history:: Adult Immunizations up to date. - Social history:: Smoking status: Patient denies any tobacco usage or history of. Screenin:55 [facility] ED Fall Risk Assessment (Adult) History of falling in the last 3 months, jj7 including since admission No falls in past 3 months (0 pts) Confusion or Disorientation No (0 pts) Intoxicated or Sedated No (0 pts) Impaired Gait No (0 pts) Mobility Assist Device Used No (0 pt) Altered Elimination No (0 pt) Score/Fall Risk Level 0 - 2 = Low Risk Oriented to surroundings, Maintained a safe environment. Abuse screen: Denies threats or abuse. Nutritional screening: No deficits noted. Tuberculosis screening: No symptoms or risk factors identified. Assessment: 11:55 General: Appears in no apparent distress. comfortable, Behavior is calm, cooperative, jj7 appropriate for age. Pain: Denies pain. : Reports vaginal itching. Vital Signs: 09:41 BP 142 / 86; Pulse 55; Resp 16; Temp 97.5(TE); Pulse Ox 100% on R/A; Pain 0/10; hb 11:54 BP 93 / 58; Pulse 59; Resp 14; Pulse Ox 100% ; jj7 09:41 Pain Scale: Adult hb ED Course: 09:26 Patient arrived in ED. im 09:27 Louis Rios MD is Attending Physician. rt 09:41 Arm band placed on. hb 09:45 Triage completed. hb 11:40 Aurelia Gonzalez, RN is Primary Nurse. jj7 11:44 [facility] Sent. jj7 11:55 Patient has correct armband on for positive identification. Bed in low position. Call jj7 light in reach. Side rails up X 1. Adult w/ patient. Client placed on continuous cardiac and pulse oximetry monitoring. NIBP monitoring applied. quality assurance monitor on. Warm blanket given. 11:55 No provider procedures requiring assistance completed. jj7 12:12 Patient did not have IV access during this emergency room visit. jj7 Administered Medications: No medications were administered Medication: 11:55 VIS not applicable for this client. jj7 Outcome: 12:10 Discharge ordered by . rt 12:12 Discharged to home jj7 12:12 Condition: good 12:12 Discharge instructions given to patient, Instructed on discharge instructions, follow up and referral plans. Demonstrated understanding of instructions, follow-up care, 12:16 Patient left the ED. jj7 Signatures: Shanika Velásquez RN RN Aurelia Gonzalez RN RN jLouis Lopez MD MD rt Ambar Munoz im
--- NOTE | 2023-05-25 12:10 | EDPHYS ---
Physician Documentation [facility] Name: Maria Isabel Stacy Age: 77 yrs Sex: Female : 1945 Arrival Date: 05/25/2023 Time: 09:20 Bed 12 Private MD: ED Physician Louis Rios HPI: 05/25 11:41 This 77 yrs old Female presents to ER via Ambulatory with complaints of rt Vaginal Itching, Medication Refill - diabetic medication. 11:42 Patient presents to the ED with itching with urination, denies dysuria, abdominal pain, rt nausea, vomiting. She is also requesting refills of her diabetic medications of which she ran out of yesterday. She denies other acute complaints at this time, symptoms are mild in severity, no other aggravating elevating factors. Historical: - Allergies: 09:40 No Known Allergies; hb - PMHx: 09:40 Diabetes - IDDM; Hypertensive disorder; neuropathy; hb - PSHx: 09:40 R foot all toes amputated; hb - Immunization history:: Adult Immunizations up to date. - Social history:: Smoking status: Patient denies any tobacco usage or history of. ROS: 11:42 Constitutional: Negative for fever, chills, and weight loss, Cardiovascular: Negative rt for chest pain, palpitations, and edema, Respiratory: Negative for shortness of breath, cough, wheezing, and pleuritic chest pain, Abdomen/GI: Negative for abdominal pain, nausea, vomiting, diarrhea, and constipation, Skin: Negative for injury, rash, and discoloration, Neuro: Negative for headache, weakness, numbness, tingling, and seizure, Psych: Negative for depression, anxiety, suicide ideation, homicidal ideation, and hallucinations, 11:42 : Positive for Itching with urination, negative for increased frequency, dysuria, hematuria, Exam: 11:42 Constitutional: This is a well developed, well nourished patient who is awake, alert, rt and in no acute distress. Head/Face: Normocephalic, atraumatic. Chest/axilla: Normal chest wall appearance and motion. Nontender with no deformity. No lesions are appreciated. Cardiovascular: Regular rate and rhythm with a normal S1 and S2. No gallops, murmurs, or rubs. Normal PMI, no JVD. No pulse deficits. Respiratory: Lungs have equal breath sounds bilaterally, clear to auscultation and percussion. No rales, rhonchi or wheezes noted. No increased work of breathing, no retractions or nasal flaring. Abdomen/GI: Soft, non-tender, with normal bowel sounds. No distension or tympany. No guarding or rebound. No evidence of tenderness throughout. Skin: Warm, dry with normal turgor. Normal color with no rashes, no lesions, and no evidence of cellulitis. MS/ Extremity: Pulses equal, no cyanosis. Neurovascular intact. Full, normal range of motion. Neuro: Awake and alert, GCS 15, oriented to person, place, time, and situation. Cranial nerves II-XII grossly intact. Motor strength 5/5 in all extremities. Sensory grossly intact. Cerebellar exam normal. Normal gait. Psych: Awake, alert, with orientation to person, place and time. Behavior, mood, and affect are within normal limits. Vital Signs: 09:41 BP 142 / 86; Pulse 55; Resp 16; Temp 97.5(TE); Pulse Ox 100% on R/A; Pain 0/10; hb 11:54 BP 93 / 58; Pulse 59; Resp 14; Pulse Ox 100% ; jj7 09:41 Pain Scale: Adult hb MDM: 09:40 Patient medically screened. rt 12:15 Differential diagnosis: UTI, candidiasis. Data reviewed: vital signs, nurses notes, lab rt test result(s). Test considered but Not performed: Labs: Stable vital signs, monitor symptoms, blood work not indicated. Care significantly affected by the following chronic conditions: Diabetes, Hypertension. Counseling: I had a detailed discussion with the patient and/or guardian regarding the historical points, exam findings, and any diagnostic results supporting the discharge/admit diagnosis, lab results, the need for outpatient follow up. 05/25 09:45 Order name: JOSE RAUL; Complete Time: 12:05 rt Administered Medications: No medications were administered Disposition Summary: 05/25/23 12:10 Discharge Ordered Notes: Location: Home rt Problem: new rt Symptoms: are unchanged rt Condition: Stable rt Diagnosis - Candidiasis of vulva and vagina rt - Essential (primary) hypertension rt - Hyperlipidemia, unspecified rt - Other specified diabetes mellitus without complications rt Followup: rt - With: Private Physician - When: 7 - 10 days - Reason: Discharge Instructions: - Discharge Summary Sheet rt - Hypertension, Adult rt - Vaginal Yeast Infection, Adult rt - Diabetes Mellitus and Nutrition, Adult rt Forms: - Medication Reconciliation Form rt - Thank You Letter rt - Antibiotic Education rt - Prescription Opioid Use rt - Patient Portal Instructions rt - Leadership Thank You Letter rt Prescriptions: - atorvastatin 40 mg Oral tablet - take 1 tablet ORAL route daily; 30 tablet; Refills: 0, Product Selection rt Permitted - Clotrimazole 1 % Vaginal cream - insert 1 applicatorful VAGINAL route At bedtime for 7 days; 7 application; rt Refills: 0, Product Selection Permitted - Tessalon Perles 100 mg Oral Capsule - take 1 capsule ORAL route every 8 hours As needed; 15 capsule; Refills: 0, rt Product Selection Permitted - Metoprolol Tartrate 25 mg Oral tablet - take 1 tablet ORAL route 2 times per day with a meal; 60 tablet; Refills: 0, rt Product Selection Permitted - Lisinopril 10 mg Oral tablet - take 1 tablet ORAL route once daily; 30 tablet; Refills: 0, Product Selection rt Permitted - Metformin 1,000 mg Oral tablet - take 1 tablet ORAL route every 12 hours with morning and evening meals; 60 rt tablet; Refills: 0, Product Selection Permitted Signatures: Dispatcher [employer] Shanika Childers RN RN Louis Phelps MD MD rt
[2023-05-25 12:21] VITALS: TEMP 97.5; O2SAT 100
[2023-05-25 12:22] VITALS: BP 93/58
== END 2023-05-25 12:16 | disposition home or self-care (01) ==
LOC: ER 09:20
DX: B37.31 Acute candidiasis of vulva and vagina (principal); I10 Essential (primary) hypertension; E78.5 Hyperlipidemia, unspecified; E13.9 Other specified diabetes mellitus without complications
CPT/HCPCS: 81001; 99284

== ENCOUNTER → 2023-06-29 | Emergency (ER) | payer OTHER ==
[~2023-06-29] MED LIST: INSULIN REGULAR (HUMAN) 100 UNIT/ML ONE; NA CHLORIDE 0.9% 500 ML ONE
[2023-06-29 20:12] LABS: Absolute Lymphocytes (CBC) 3.5 K/uL (0.7-4.9); Hematocrit 38.3 % (36.0-45.0); Lymphocytes % 39.1 % (15.3-44.8); MCV 91.5 fL (80-100); MPV 8.3 fL (7.6-11.3); Platelets 259 thou/uL (152-406); RBC Red Blood Cell Count 4.19 M/uL (3.86-4.86)
[2023-06-29 20:17] LABS: Specific Gravity > 1.030 (1.005-1.030); Urine Bacteria None Seen /HPF (<20); Urine Bilirubin NEGATIVE (Negative); Urine Blood Negative (Negative); Urine Clarity Clear (Clear); Urine Color Colorless (Yellow); Urine Glucose 4+ (Over) (Negative); Urine Mucus Slight /HPF (None Seen); Urine Protein NEGATIVE (Negative); Urine RBC <5 /HPF (None Seen); Urine Urobilinogen Normal (Normal)
[2023-06-29 21:11] LABS: Bilirubin Total 0.9 mg/dL (0.2-1.0); Potassium 4.5 mEq/L (3.5-5.1); Protein, Total 7.3 g/dL (6.4-8.2)
--- NOTE | 2023-06-29 21:30 | ER ---
Nurse's Notes [facility] Name: Maria Isabel Stacy Age: 77 yrs Sex: Female : 1945 Arrival Date: 06/29/2023 Time: 17:52 Bed 4 Private MD: Diagnosis: Diabetes mellitus due to underlying condition with hyperglycemia Presentation: 06/29 18:44 Chief complaint: Patient states: went to PCP for medication refill and was told her aa5 blood glucose was high and to come to ER. Pt denies any complaints. Coronavirus screen: At this time, the client does not indicate any symptoms associated with coronavirus-19. Ebola Screen: Patient denies travel to an Ebola-affected area in the 21 days before illness onset. Initial Sepsis Screen: Does the patient meet any 2 criteria? No. Patient's initial sepsis screen is negative. Does the patient have a suspected source of infection? No. Patient's initial sepsis screen is negative. Risk Assessment: Do you want to hurt yourself or someone else? Patient reports no desire to harm self or others. Onset of symptoms was June 29, 2023. 18:44 Acuity: DORCAS 3 aa5 18:44 Method Of Arrival: Ambulatory aa5 Triage Assessment: 19:18 General: Appears in no apparent distress. comfortable, Behavior is calm, cooperative, nw1 appropriate for age. Historical: - Allergies: 18:43 No Known Allergies; aa5 - Home Meds: 18:46 Januvia 50 mg oral tablet once [Active]; metformin 1,000 mg Oral tablet 2 times per day aa5 [Active]; metoprolol tartrate 25 mg Oral tablet once [Active]; - PMHx: 18:43 Hypertensive disorder; neuropathy; Diabetes mellitus; aa5 - PSHx: 18:43 R foot all toes amputated; aa5 - Immunization history:: Adult Immunizations unknown. - Social history:: Smoking status: Patient denies any tobacco usage or history of. Screenin:00 [facility] ED Fall Risk Assessment (Adult) History of falling in the last 3 months, nw1 including since admission No falls in past 3 months (0 pts) Confusion or Disorientation No (0 pts) Intoxicated or Sedated No (0 pts) Impaired Gait Yes (1 pt) Mobility Assist Device Used Yes (1 pt) Altered Elimination No (0 pt) Score/Fall Risk Level 3 or more points = High Risk Oriented to surroundings, Maintained a safe environment, Educated pt \T\ family on fall prevention, incl call for assistance when getting out of bed, Assessed \T\ reinforced patient's understanding of fall precautions, Provided non-skid footwear, Hourly rounding (assess needs \T\ fall precautionary measures) done, Used ambulatory aids as needed (educated on \T\ assisted with), Implemented a Fall Risk Plan of Care. Abuse screen: Denies threats or abuse. Denies injuries from another. Nutritional screening: No deficits noted. Tuberculosis screening: No symptoms or risk factors identified. Assessment: 19:19 Reassessment: Report received from AM shift. Pt just brought into room per shift nw1 report. Pt noted in bed with clothes on and not on monitor. Pt asked if she can use the restroom as we need a urine sample. Pt up to restroom with crutch being used to assist with ambulation. Per pt's guest, pt uses crutch due to toe amputation in the past. Will assess further once pt returns to room. 20:06 Reassessment: Pt states that she was told to come into the ED from her PCP due to nw1 elevated blood sugar. Pt denies pain and denies any recent ailments. Pt takes Metformin 1000mg BID, Januvia 50mg QD and Metoprolol 25mg QD. Pt able to verbalize needs and wants. Noted bradycardic on monitor. Call light and guest at bedside. Pain: Denies pain. Neuro: Level of Consciousness is awake, alert, obeys commands, Oriented to person, place, time, situation, Appropriate for age. Cardiovascular: Capillary refill < 3 seconds Patient's skin is warm and dry. Rhythm is sinus bradycardia. Respiratory: No deficits noted. Airway is patent Trachea midline Respiratory effort is even, unlabored, Respiratory pattern is regular, symmetrical. GI: No deficits noted. No signs and/or symptoms were reported involving the gastrointestinal system. : No deficits noted. No signs and/or symptoms were reported regarding the genitourinary system. Derm: No deficits noted. No signs and/or symptoms reported regarding the dermatologic system. Musculoskeletal: Reports toe amputation. 21:07 Reassessment: POC 252. nw1 21:41 Reassessment: Pt states she is ready to leave. Notified physician SHARON Kitchen. nw1 Vital Signs: 18:44 BP 141 / 85; Pulse 70; Resp 16 S; Temp 98.4(TE); Pulse Ox 100% on R/A; Weight 65.32 kg aa5 (R); Height 5 ft. 4 in. (R); 19:30 BP 147 / 74; Pulse 44; Resp 16; Pulse Ox 100% on R/A; nw1 20:00 BP 168 / 70; Pulse 47; Resp 17; Pulse Ox 100% on R/A; nw1 21:00 BP 154 / 78; Pulse 60; Resp 16 S; Pulse Ox 100% ; nw1 18:44 Body Mass Index 24.72 (65.32 kg, 162.56 cm) aa5 [place] Coma Score: 20:00 Eye Response: spontaneous(4). Motor Response: obeys commands(6). Verbal Response: nw1 oriented(5). Total: 15. ED Course: 18:13 Patient arrived in ED. mr 18:16 [facility] cp 18:16 Kimani Pickard MD is Attending Physician. cp 18:43 Arm band placed on. aa5 18:45 Triage completed. aa5 19:18 Le Delgado, RUTH is Primary Nurse. nw1 20:00 Patient has correct armband on for positive identification. Placed in gown. Bed in low nw1 position. Call light in reach. Side rails up X2. Adult w/ patient. Provided Education on: POC. Client placed on continuous cardiac and pulse oximetry monitoring. NIBP monitoring applied. Door closed. Noise minimized. Warm blanket given. 20:00 No provider procedures requiring assistance completed. Inserted saline lock: 20 gauge nw1 in left antecubital area, using aseptic technique. Blood collected. 20:16 CMP Sent. nw1 20:16 Lipase Sent. nw1 20:16 Urinalysis w/ reflexes Sent. nw1 21:41 IV discontinued, intact, bleeding controlled, No redness/swelling at site. Pressure nw1 dressing applied. Administered Medications: 20:41 Drug: Insulin Regular Human IVP 10 units IVP once {Co-Signature: la4 (Jenna Ramirez nw1 RN).} Route: IVP; Site: left antecubital; 20:41 Drug: NS 0.9% IV 500 ml IV at 100 ml/hr continuous Route: IV; Rate: 100 ml/hr; Site: nw1 left antecubital; Medication: 20:00 VIS not applicable for this client. nw1 Point of Care Testing: Blood Glucose: 18:45 Blood Glucose: 405 mg/dL; aa5 Ranges: Outcome: 21:29 Discharge ordered by . cp 21:41 Discharged to home ambulatory, nw1 21:41 Condition: stable 21:41 Condition: stable 21:41 Discharge instructions given to patient, Instructed on discharge instructions, follow up and referral plans. Demonstrated understanding of instructions, follow-up care, 21:43 Patient left the ED. nw1 Signatures: Cassia Villatoro, Reg Reg mr Zora Castillo, RN RN aa5 Imtiaz Murcia PA PA cp Williams, Nicole, RUTH RN nw1 Jenna Ramirez RN la4 Corrections: (The following items were deleted from the chart) 18:43 18:43 Allergies: Aspirin; aa5 aa5 18:43 18:43 PMHx: Diabetes - IDDM; aa5 aa5 18:45 18:44 BP 141 / 85; Pulse 70bpm; Resp 16bpm; Spontaneous; Pulse Ox 100% RA; Temp 98.4F aa5 Temporal; aa5 20:11 19:19 Reassessment: Report received from AM shift. Pt just brought into room per shift nw1 report. Pt noted in bed with clothes on and not on monitor. Pt asked if she can use the restroom as we need a urine sample. Pt up to restroom with crutch being used to assist with ambulation. Per pt's son, pt uses crutch due to toe amputation in the past. Will assess further once pt returns to room. nw1 :43 20:16 BETA HYDROXYBUTYRATE+C.LAB.BRZ drawn and sent. nw1 nw1
--- NOTE | 2023-06-29 21:30 | EDPHYS ---
Physician Documentation [facility] Name: Maria Isabel Stacy Age: 77 yrs Sex: Female : 1945 Arrival Date: 06/29/2023 Time: 17:52 Bed 4 Private MD: ED Physician Kimani Pickard HPI: 06/29 19:00 This 77 yrs old Female presents to ER via Ambulatory with complaints of High cp Blood Sugar. 19:00 The patient or guardian reports hyperglycemia. Onset: The symptoms/episode cp began/occurred today. Associated signs and symptoms: Pertinent negatives: diaphoresis, vomiting. Current symptoms: In the emergency department the patient's symptoms are unchanged from the initial presentation, despite home interventions. Historical: - Allergies: 18:43 No Known Allergies; aa5 - Home Meds: 18:46 Januvia 50 mg oral tablet once [Active]; metformin 1,000 mg Oral tablet 2 times per day aa5 [Active]; metoprolol tartrate 25 mg Oral tablet once [Active]; - PMHx: 18:43 Hypertensive disorder; neuropathy; Diabetes mellitus; aa5 - PSHx: 18:43 R foot all toes amputated; aa5 - Immunization history:: Adult Immunizations unknown. - Social history:: Smoking status: Patient denies any tobacco usage or history of. ROS: 19:05 Constitutional: Negative for body aches, chills, fever, poor PO intake, cp 19:05 Cardiovascular: Negative for chest pain, edema, palpitations, cp 19:05 Respiratory: Negative for cough, shortness of breath, wheezing, 19:05 Abdomen/GI: Negative for abdominal pain, vomiting, diarrhea, constipation, 19:05 Neuro: Negative for altered mental status, dizziness, headache, weakness, 19:05 All other systems are negative, Exam: 19:10 Constitutional: The patient appears in no acute distress, alert, awake, comfortable, cp non-diaphoretic, non-toxic, well developed, well nourished, 19:10 Head/Face: Normocephalic, atraumatic. Eyes: Pupils equal round and reactive to light, cp extra-ocular motions intact. Lids and lashes normal. Conjunctiva and sclera are non-icteric and not injected. Cornea within normal limits. Periorbital areas with no swelling, redness, or edema. ENT: Nares patent. No nasal discharge, no septal abnormalities noted. Tympanic membranes are normal and external auditory canals are clear. Oropharynx with no redness, swelling, or masses, exudates, or evidence of obstruction, uvula midline. Mucous membranes moist. Cardiovascular: Regular rate and rhythm with a normal S1 and S2. No gallops, murmurs, or rubs. Normal PMI, no JVD. No pulse deficits. Respiratory: Lungs have equal breath sounds bilaterally, clear to auscultation and percussion. No rales, rhonchi or wheezes noted. No increased work of breathing, no retractions or nasal flaring. Abdomen/GI: Soft, non-tender, with normal bowel sounds. No distension or tympany. No guarding or rebound. No evidence of tenderness throughout. Skin: Warm, dry with normal turgor. Normal color with no rashes, no lesions, and no evidence of cellulitis. Neuro: Awake and alert, GCS 15, oriented to person, place, time, and situation. Cranial nerves II-XII grossly intact. Motor strength 5/5 in all extremities. Sensory grossly intact. Cerebellar exam normal. Normal gait. Vital Signs: 18:44 BP 141 / 85; Pulse 70; Resp 16 S; Temp 98.4(TE); Pulse Ox 100% on R/A; Weight 65.32 kg aa5 (R); Height 5 ft. 4 in. (R); 19:30 BP 147 / 74; Pulse 44; Resp 16; Pulse Ox 100% on R/A; nw1 20:00 BP 168 / 70; Pulse 47; Resp 17; Pulse Ox 100% on R/A; nw1 21:00 BP 154 / 78; Pulse 60; Resp 16 S; Pulse Ox 100% ; nw1 18:44 Body Mass Index 24.72 (65.32 kg, 162.56 cm) aa5 [place] Coma Score: 20:00 Eye Response: spontaneous(4). Motor Response: obeys commands(6). Verbal Response: nw1 oriented(5). Total: 15. MDM: 18:38 Patient medically screened. cp 20:00 Differential diagnosis: diabetes insipidus, DKA, hyperglycemia. cp 21:28 Data reviewed: vital signs, nurses notes, lab test result(s). cp 06/29 18:44 Order name: CBC with Diff; Complete Time: 21:23 cp 06/29 18:44 Order name: CMP; Complete Time: 21:23 cp 06/29 21:24 Interpretation: Normal except: NA 135; GLUC 331; GFR 64; ALB 3.0; GLOB 4.3; A/G 0.7. cp 06/29 18:44 Order name: Lipase; Complete Time: 21:23 cp 06/29 18:44 Order name: Urinalysis w/ reflexes; Complete Time: 21:23 cp 06/29 18:55 Order name: Glucose, Ancillary Testing; Complete Time: 21:23 EDMS 06/29 21:17 Order name: Glucose, Ancillary Testing; Complete Time: 21:23 EDMS 06/29 18:38 Order name: Accucheck Blood Glucose; Complete Time: 19:18 cp 06/29 18:44 Order name: IV Saline Lock; Complete Time: 20:16 cp 06/29 18:44 Order name: Labs collected and sent; Complete Time: 20:16 cp Administered Medications: 20:41 Drug: Insulin Regular Human IVP 10 units IVP once {Co-Signature: laManny (Jenna Ramirez nw1 RN).} Route: IVP; Site: left antecubital; 20:41 Drug: NS 0.9% IV 500 ml IV at 100 ml/hr continuous Route: IV; Rate: 100 ml/hr; Site: nw1 left antecubital; Point of Care Testing: Blood Glucose: 18:45 Blood Glucose: 405 mg/dL; aa5 Ranges: Critical Glucose Levels:Adult <50 mg/dl or >400 mg/dl <40 mg/dl or >180 mg/dl Disposition Summary: 06/29/23 21:29 Discharge Ordered Notes: Location: Home cp Problem: new cp Symptoms: have improved cp Condition: Stable cp Diagnosis - Diabetes mellitus due to underlying condition with hyperglycemia cp Followup: cp - With: Private Physician - When: 2 - 3 days - Reason: Recheck today's complaints Discharge Instructions: - Discharge Summary Sheet cp - Hyperglycemia cp - Daily Diabetes Mellitus Record cp - Blood Glucose Monitoring, Adult cp - Diabetes Mellitus and Nutrition, Adult cp Forms: - Medication Reconciliation Form cp - Thank You Letter cp - Antibiotic Education cp - Prescription Opioid Use cp - Patient Portal Instructions cp - Leadership Thank You Letter cp Addendum: 07/02/2023 20:27 I was immediately available for consultation during this patient's visit. I did not e c2 personally see the patient or discuss the patient with the JENNIFER. . Signatures: Dispatcher [employer] Zora Benítez RN RN aa5 Imtiaz Murcia PA PA cp Corral, Edwin, MD MD ec2 Le Delgado RN RN nw1 Jenna Ramirez RN la4 Corrections: (The following items were deleted from the chart) 06/29 18:43 18:43 Allergies: Aspirin; aa5 aa5 18:43 18:43 PMHx: Diabetes - IDDM; aa5 aa5 21:43 18:44 BETA HYDROXYBUTYRATE+C.LAB.BRZ ordered. xochitl nw1
[2023-06-30 02:44] VITALS: BP 154/78; TEMP 98.4; O2SAT 100
== END ==
LOC: ER 17:52
DX: E11.65 Type 2 diabetes mellitus with hyperglycemia (principal); I10 Essential (primary) hypertension
CPT/HCPCS: 85025; 81001; 36415; 82947 ×2; 83690; 80053; 96374; 99284; J1815; J7040

== ENCOUNTER 2023-11-19 16:52 | Inpatient (IN) | payer OTHER ==
--- NOTE | 2023-11-19 19:09 | RAD REPORT ---
EXAM DESCRIPTION: RAD - Foot Left 2 View - 11/19/2023 6:16 pm CLINICAL HISTORY: PAIN COMPARISON: Foot Left 3 View dated 11/17/2023 TECHNIQUE: Left foot, 3 views. FINDINGS: No fracture, dislocation or periosteal reaction. Large calcaneal spur. Vascular calcifications. No air or foreign body in the soft tissues. Eccentric radiodensity adjacent to the head of the proxi mal phalanx third digit, stable, may relate to sequelae of remote ligamentous injury. IMPRESSION: No acute osseous abnormality. Chronic findings as above.
--- NOTE | 2023-11-19 19:55 | RAD REPORT ---
EXAM DESCRIPTION: US - Lower Extremity Artery Uni Ltd - 11/19/2023 6:59 pm CLINICAL HISTORY: PAIN COMPARISON: Lower Extremity Artery Uni Ltd dated 08/02/2021 TECHNIQUE: Left lower extremity arterial Doppler examination was performed with waveform tracing. FINDINGS: Triphasic waveforms are seen along the left [employer] and proximal to mid SFA. Biphasic flow seen along the distal SFA. Monophasic flow throughout the left popliteal through dorsalis pedis arteries. IMPRESSION: Up to moderate peripheral vascular disease of the left lower extremity.
[2023-11-19 21:05] LABS: Absolute Eosinophils 0.1 K/uL (0-0.5); Absolute Lymphocytes (CBC) 2.4 K/uL (0.7-4.9); Absolute Monocytes 0.8 K/uL (0.1-1.3); Absolute Neutrophil 11.3 K/uL (1.8-8.0); Basophils % 0.2 % (0-1.3); Eosinophils % 0.4 % (0-4.4); Hematocrit 35.5 % (36.0-45.0); Hemoglobin 11.6 g/dL (12.0-15.0); Lymphocytes % 16.3 % (15.3-44.8); MCH 29.8 pg (27.0-35.0); MCHC 32.8 g/dL (32.0-36.0); MCV 90.8 fL (80-100); MPV 8.7 fL (7.6-11.3); Monocytes % 5.8 % (3.3-12.3); Neutrophils % 77.3 % (41.7-73.7); Platelets 280 thou/uL (152-406); RBC Red Blood Cell Count 3.91 M/uL (3.86-4.86); Red Cell Distribution Width 12.6 % (12.1-15.2)
[2023-11-19] MEDS ORDERED: MORPHINE 4 MG/ML SYR ONE (21:10)
[2023-11-19] MEDS ORDERED: ONDANSETRON 4 MG/2 ML VIAL ONE (21:10)
[2023-11-19 21:13] LABS: PTT, Activated Partial Thromb 29.2 SECONDS (24.3-36.9); Protime INR 1.09
[2023-11-19 21:30] LABS: Albumin 2.9 g/dL (3.4-5.0); Albumin/Globulin Ratio 0.6 (1.1-1.8); Anion Gap 8.8 mEq/L (5.0-15.0); Bilirubin Total 1.8 mg/dL (0.2-1.0); Globulin 4.9 g/dL (2.3-3.5); Potassium 3.8 mEq/L (3.5-5.1); Protein, Total 7.8 g/dL (6.4-8.2)
[2023-11-19] MEDS ORDERED: NA CHLORIDE 0.9% 250 ML ONE (22:01)
[2023-11-19] MEDS ORDERED: VANCOMYCIN 1 GM/VIAL ONE (22:01)
[2023-11-19] MEDS ORDERED: NA CHLORIDE 0.9% 100 ML ONE (22:01)
[2023-11-19] MEDS ORDERED: CEFEPIME 1 GM/VIAL ONE (22:02)
[2023-11-19] MEDS ORDERED: NA CHLORIDE 0.9% 1,000 ML ONE (22:02)
--- NOTE | 2023-11-19 22:06 | EDPHYS ---
Physician Documentation [facility] Name: Maria Isabel Stacy Age: 78 yrs Sex: Female : 1945 Arrival Date: 11/19/2023 Time: 16:52 Bed 2 Private MD: ED Physician Seda Wright HPI: 11/18 18:00 This 78 yrs old Female presents to ER via Wheelchair with complaints of Foot cp Turning Black, Vomiting. 18:00 The patient presents with pain, that is acute, swelling, tenderness. The complaints cp affect the left foot. Context: HX of diabetic ulcer, currently taking prescribed clindamycin. Associated signs and symptoms: Pertinent positives: vomiting, erythema, Pertinent negatives: fever. 18:00 Severity of symptoms: in the emergency department the symptoms are actually worse, cp moderately. Historical: - Allergies: 17:42 No Known Allergies; bp - PMHx: 17:42 diabetes mellitus; Hypertensive disorder; neuropathy; bp - PSHx: 17:42 R foot all toes amputated; bp - Immunization history:: Adult Immunizations up to date. - Infectious Disease History:: Denies. - Social history:: Smoking status: Patient denies any tobacco usage or history of. ROS: 18:05 MS/extremity: Positive for erythema, pain, swelling, tenderness, Negative for decreased cp range of motion, 18:05 Constitutional: Negative for body aches, chills, fever, poor PO intake, cp 18:05 Cardiovascular: Negative for chest pain, palpitations, 18:05 Respiratory: Negative for cough, shortness of breath, wheezing, 18:05 Abdomen/GI: Negative for abdominal pain, nausea, vomiting, and diarrhea, 18:05 Neuro: Negative for altered mental status, dizziness, headache, weakness, 18:05 All other systems are negative, Exam: 18:10 Constitutional: The patient appears in no acute distress, alert, awake, cp non-diaphoretic, non-toxic, well developed, well nourished, uncomfortable, 18:10 Head/Face: Normocephalic, atraumatic. cp 18:10 Eyes: Periorbital structures: appear normal, Conjunctiva: normal, no exudate, no injection, Sclera: no appreciated abnormality, Lids and lashes: appear normal, bilaterally, 18:10 ENT: External ear(s): are unremarkable, Nose: is normal, Mouth: Lips: moist, Oral mucosa: pink and intact, moist, Posterior pharynx: Airway: no evidence of obstruction, patent, 18:10 Chest/axilla: Inspection: normal, 18:10 Cardiovascular: Rate: bradycardic, Rhythm: regular, Edema: is not appreciated, JVD: is not appreciated, 18:10 Respiratory: the patient does not display signs of respiratory distress, Respirations: normal, no use of accessory muscles, no retractions, labored breathing, is not present, Breath sounds: are clear throughout, no decreased breath sounds, no stridor, no wheezing, 18:10 Abdomen/GI: Exam negative for discomfort, distension, guarding, Inspection: abdomen appears normal, 18:10 Back: pain, is absent, ROM is normal, 18:10 Musculoskeletal/extremity: Extremities: noted in the toes and ball of foot and dorsum of left foot: erythema, pain, swelling, tenderness, superficial wound lateral side of left fourth toe with small amount bloody drainage, 18:10 Neuro: Orientation: to person, place \T\ time. Mentation: is normal, Motor: moves all fours, no focal deficits, 22:52 ECG was reviewed by the Attending Physician. cp Vital Signs: 17:42 BP 138 / 65; Pulse 57; Resp 16; Temp 98; Pulse Ox 95% ; bp 22:00 BP 159 / 73; Pulse 61; Resp 16; Pulse Ox 94% ; vc1 22:30 BP 130 / 86; Pulse 63; Resp 16; Pulse Ox 95% on R/A; km8 23:30 BP 121 / 93; Pulse 67; Resp 16; Pulse Ox 97% on R/A; 8 06/04 00:00 BP 151 / 73; Pulse 66; Resp 16; Pulse Ox 96% on R/A; km8 01:00 BP 175 / 75; Pulse 77; Resp 16; Pulse Ox 99% on R/A; km8 01:30 BP 141 / 55; Pulse 68; Resp 14; Pulse Ox 96% on R/A; km8 02:00 BP 131 / 75; Pulse 67; Resp 16; Pulse Ox 96% on R/A; 8 02:30 BP 129 / 67; Pulse 70; Resp 16; Pulse Ox 94% on R/A; km8 02:36 Weight 65.77 kg; Height 5 ft. 4 in. ; rv1 02:36 Body Mass Index 24.89 (65.77 kg, 162.56 cm) rv1 [place] Coma Score: 06 20:50 Eye Response: spontaneous(4). Motor Response: obeys commands(6). Verbal Response: km8 oriented(5). Total: 15. MDM: 17:44 Patient medically screened. cp 20:00 Differential diagnosis: gout, cellulitis, osteomyelitis, abscess, sepsis. cp 22:10 Data reviewed: vital signs, nurses notes, lab test result(s), EKG, radiologic studies, cp plain films, ultrasound, and as a result, I will admit patient. 22:10 Management of patient was discussed with the following: Hospitalist: DR Calderón will cp admit after discussion. I considered the following discharge prescriptions or medication management in the emergency department Medications were administered in the Emergency Department. See MAR. Care significantly affected by the following chronic conditions: Diabetes, Hypertension. Counseling: I had a detailed discussion with the patient and/or guardian regarding the historical points, exam findings, and any diagnostic results supporting the discharge/admit diagnosis, lab results, radiology results, the need for further work-up and treatment in the hospital. Response to treatment: the patient's symptoms have mildly improved after treatment. 11/18 17:49 Order name: Wound Culture 11/18 17:49 Order name: Blood Culture Adult (2) 11/18 17:49 Order name: CBC with Diff; Complete Time: 21:36 cp 11/18 17:49 Order name: CMP; Complete Time: 21:36 cp 11/18 17:49 Order name: Lactate w/ 2H reflex if indic.; Complete Time: 21:36 cp 11/18 17:49 Order name: Protime (+inr); Complete Time: 21:36 cp 11/18 17:49 Order name: Ptt, Activated; Complete Time: 21:36 cp 11/18 17:49 Order name: Urinalysis w/ reflexes cp 11/18 17:49 Order name: CRP; Complete Time: 21:36 cp 11/18 22:50 Order name: CBC with Automated Diff EDMS 11/18 22:50 Order name: CBC with Automated Diff EDMS 11/18 22:50 Order name: Comprehensive Metabolic Panel EDMS 11/18 22:50 Order name: Comprehensive Metabolic Panel EDMS 11/18 22:50 Order name: Troponin High Sensitivity EDMS 11/18 22:50 Order name: Troponin High Sensitivity EDMS 11/19 00:24 Order name: Lactate Sepsis 2 HR Follow-up EDMS 11/18 17:51 Order name: XRAY Foot LEFT 2 View; Complete Time: 20:52 cp 11/18 17:51 Order name: US Lower Extremity Artery Uni Ltd; Complete Time: 20:52 cp 11/18 20:53 Interpretation: Report reviewed. cp 11/18 22:51 Order name: MRA Foot Left EDMS 11/18 17:49 Order name: EKG; Complete Time: 17:50 cp 11/18 17:49 Order name: Accucheck; Complete Time: 21:08 cp 11/18 17:49 Order name: Cardiac monitoring; Complete Time: 21:07 cp 11/18 17:49 Order name: EKG - Nurse/Tech; Complete Time: 22:49 cp 11/18 17:49 Order name: IV Saline Lock - Large Bore; Complete Time: 21:07 cp 11/18 17:49 Order name: Labs collected and sent; Complete Time: 21:07 cp 11/18 17:49 Order name: O2 Per Protocol; Complete Time: 21:07 cp 11/18 17:49 Order name: O2 Sat Monitoring; Complete Time: 21:07 cp 11/18 17:49 Order name: Vital Signs; Complete Time: 21:08 cp EC:52 Rate is 63 beats/min. Rhythm is regular. CA interval is normal. QRS interval is normal. cp QT interval is normal. T waves are Inverted in leads III, aVR. Interpreted by me. Reviewed by me. Administered Medications: 21:10 Drug: morphine IVP or IV 4 mg IVP once over 4 mins Route: IVP; Infused Over: 4 mins; km8 Site: left antecubital; 23:21 Follow up: Response: No adverse reaction 8 21:10 Drug: Ondansetron IVP 4 mg IVP once; over 2 minutes Route: IVP; Site: left antecubital; km8 23:21 Follow up: Response: No adverse reaction 8 22:35 Drug: NS 0.9% IV 1000 ml IV at 999 ml/hr Per protocol; 1000 mL bolus Route: IV; Rate: km8 999 ml/hr; Site: left antecubital; 11/19 01:25 Follow up: IV Status: Completed infusion; IV Intake: 1000ml [facility] 11/18 22:35 Drug: Cefepime IVPB 1 grams IVPB at 200 ml/hr once over 30 mins; (mix in NS 100 mL) km Route: IVPB; Rate: 200 ml/hr; Infused Over: 30 mins; Site: left antecubital; 23:05 Follow up: IV Status: Completed infusion; IV Intake: 100ml [facility] 22:35 Drug: Insulin Regular Human IVP 10 units IVP once {Co-Signature: vc1 (Vesna Kamara km8 RN).} Route: IVP; Site: left antecubital; 11/19 04:49 Follow up: Response: No adverse reaction [facility] 11/18 23:21 Drug: vancoMYCIN IVPB 1 grams IVPB once over 2 hrs Route: IVPB; Infused Over: 2 hrs; [facility] Site: left antecubital; 11/19 01:25 Follow up: IV Status: Completed infusion; IV Intake: 250ml [facility] Disposition Summary: 11/19/23 22:06 Hospitalization Ordered Notes: Hospitalization Status: Inpatient Admission cp Provider: Monica Calderón cp Condition: Stable cp Problem: new cp Symptoms: have improved cp Bed/Room Type: Standard cp Location: Telemetry/MedSurg (Inpatient)(11/20/23 04:32) rv1 Room Assignment: 223(11/20/23 04:32) rv1 Diagnosis - Cellulitis and acute lymphangitis of other parts of limb - left foot cp Forms: - Medication Reconciliation Form cp - SBAR form cp - Leadership Thank You Letter cp Signatures: Dispatcher [employer] EDMS Imtiaz Murcia PA PA cp Gabriel Azul, RN RN Stephanie Wright rv1 Kajal Chaudhry RN RN km8 Vesna Kamara RN vc1 Corrections: (The following items were deleted from the chart) 11/18 17:50 17:50 Wound Culture+BA.LAB.BRZ ordered. EDMS EDMS 17:50 17:50 BLOOD CULTURE*+BA.LAB.BRZ ordered. EDMS EDMS 17:50 17:50 CBC+H.LAB.BRZ ordered. EDMS EDMS 17:50 17:50 COMPREHENSIVE METABOLIC PANEL+C.LAB.BRZ ordered. EDMS EDMS 17:50 17:50 LACTATE+C.LAB.BRZ ordered. EDMS EDMS 17:50 17:50 PROTIME (+INR)+COAG.LAB.BRZ ordered. EDMS EDMS 17:50 17:50 PTT, ACTIVATED+COAG.LAB.BRZ ordered. EDMS EDMS 17:50 17:50 Urinalysis+U.LAB.BRZ ordered. EDMS EDMS 17:50 17:50 C-REACTIVE PROTEIN+C.LAB.BRZ ordered. EDMS EDMS 17:51 17:51 Lower Extremity Artery Uni Ltd+US.RAD.BRZ ordered. EDMS EDMS 18:14 17:49 Foot Left 3 View+RAD.RAD.BRZ ordered. EDMS EDMS / 03:13 03:13 Immunization history: Adult Immunizations km8 km8 03:36 0603 22:06 Telemetry/MedSurg (Inpatient) cp rv1 11/19 03:36 0603 22:06 cp rv1 11/19 04:32 03:36 [facility] ER HOLD rv1 rv1 04:32 03:36 ERHOLD- rv1 rv1
--- NOTE | 2023-11-19 22:06 | ER ---
Nurse's Notes [facility] Name: Maria Isabel Stacy Age: 78 yrs Sex: Female : 1945 Arrival Date: 11/19/2023 Time: 16:52 Bed 2 Private MD: Diagnosis: Cellulitis and acute lymphangitis of other parts of limb-left foot Presentation: 11/18 17:42 Chief complaint: SINCE YESTERDAY HER FOOT'S TURNING BLACK. Coronavirus screen: At this bp time, the client does not indicate any symptoms associated with coronavirus-19. Ebola Screen: No symptoms or risks identified at this time. Initial Sepsis Screen: Does the patient meet any 2 criteria? No. Patient's initial sepsis screen is negative. Does the patient have a suspected source of infection? No. Patient's initial sepsis screen is negative. Risk Assessment: Do you want to hurt yourself or someone else? Patient reports no desire to harm self or others. Onset of symptoms is unknown. 17:42 Method Of Arrival: Wheelchair bp 17:42 Acuity: DORCAS 3 bp Triage Assessment: 17:42 General: Appears in no apparent distress. uncomfortable, Behavior is calm, cooperative. bp Pain: Complains of pain in left foot. GI: Reports nausea. Derm: Reports LEFT FOOT DISCOLORATION. Historical: - Allergies: 17:42 No Known Allergies; bp - PMHx: 17:42 diabetes mellitus; Hypertensive disorder; neuropathy; bp - PSHx: 17:42 R foot all toes amputated; bp - Immunization history:: Adult Immunizations up to date. - Infectious Disease History:: Denies. - Social history:: Smoking status: Patient denies any tobacco usage or history of. Screenin:50 [facility] ED Fall Risk Assessment (Adult) History of falling in the last 3 months, km8 including since admission No falls in past 3 months (0 pts) Confusion or Disorientation No (0 pts) Intoxicated or Sedated No (0 pts) Impaired Gait No (0 pts) Mobility Assist Device Used No (0 pt) Altered Elimination No (0 pt) Score/Fall Risk Level 0 - 2 = Low Risk Oriented to surroundings, Maintained a safe environment, Educated pt \T\ family on fall prevention, incl call for assistance when getting out of bed, Assessed \T\ reinforced patient's understanding of fall precautions. Abuse screen: Denies threats or abuse. Denies injuries from another. Nutritional screening: No deficits noted. Tuberculosis screening: No symptoms or risk factors identified. Assessment: 20:50 Reassessment:. General: Appears in no apparent distress. comfortable, Behavior is calm, km8 cooperative, appropriate for age. Pain: Complains of pain in left foot Pain currently is 10 out of 10 on a pain scale. Neuro: Level of Consciousness is awake, alert, obeys commands, Oriented to person, place, time, situation. Cardiovascular: Denies chest pain, shortness of breath, Patient's skin is warm and dry. Respiratory: Airway is patent Respiratory effort is even, unlabored, Respiratory pattern is regular, symmetrical. GI: Reports vomiting. : No signs and/or symptoms were reported regarding the genitourinary system. EENT: No signs and/or symptoms were reported regarding the EENT system. Derm: Skin is intact, is healthy with good turgor, Skin is dry, Skin is pink, warm \T\ dry. normal, Skin temperature is warm. Musculoskeletal: Amputation of right foot. Range of motion: intact in all extremities. 21:33 Reassessment: SHARON Paz notified of critical lab value lactate of 2.6. ss 22:49 Reassessment: Patient appears in no apparent distress at this time. No changes from vc1 previously documented assessment. Patient and/or family updated on plan of care and expected duration. Pain level reassessed. Patient is alert, oriented x 3, equal unlabored respirations, skin warm/dry/pink. 23:19 Reassessment: Patient appears in no apparent distress at this time. No changes from km8 previously documented assessment. Patient and/or family updated on plan of care and expected duration. Pain level reassessed. Patient is alert, oriented x 3, equal unlabored respirations, skin warm/dry/pink. Vital Signs: 17:42 BP 138 / 65; Pulse 57; Resp 16; Temp 98; Pulse Ox 95% ; bp 22:00 BP 159 / 73; Pulse 61; Resp 16; Pulse Ox 94% ; vc1 22:30 BP 130 / 86; Pulse 63; Resp 16; Pulse Ox 95% on R/A; km8 23:30 BP 121 / 93; Pulse 67; Resp 16; Pulse Ox 97% on R/A; km8 06/04 00:00 BP 151 / 73; Pulse 66; Resp 16; Pulse Ox 96% on R/A; km8 01:00 BP 175 / 75; Pulse 77; Resp 16; Pulse Ox 99% on R/A; km8 01:30 BP 141 / 55; Pulse 68; Resp 14; Pulse Ox 96% on R/A; km8 02:00 BP 131 / 75; Pulse 67; Resp 16; Pulse Ox 96% on R/A; km8 02:30 BP 129 / 67; Pulse 70; Resp 16; Pulse Ox 94% on R/A; km8 02:36 Weight 65.77 kg; Height 5 ft. 4 in. ; rv1 02:36 Body Mass Index 24.89 (65.77 kg, 162.56 cm) rv1 Susie Coma Score: 11/18 20:50 Eye Response: spontaneous(4). Motor Response: obeys commands(6). Verbal Response: km8 oriented(5). Total: 15. ED Course: 16:59 Patient arrived in ED. mg5 17:02 Imtiaz Murcia PA is PHCP. cp 17:02 Seda Wright MD is Attending Physician. cp 17:42 Arm band placed on. bp 17:43 Triage completed. bp 18:18 XRAY Foot LEFT 2 View In Process Unspecified. EDMS 19:00 US Lower Extremity Artery Uni Ltd In Process Unspecified. EDMS 20:20 Inserted saline lock: 22 gauge in left antecubital area, using aseptic technique. Blood km8 collected. 20:20 First set of blood cultures drawn by me. km8 20:50 Patient has correct armband on for positive identification. Placed in gown. Bed in low km8 position. Call light in reach. Side rails up X 1. Provided Education on: call light use. Client placed on continuous cardiac and pulse oximetry monitoring. NIBP monitoring applied. hospital monitor on. Pulse ox on. NIBP on. Warm blanket given. 20:50 Initial lab(s) drawn, by me, sent to lab. Wound culture swab sent to lab. km8 20:57 Second set of blood cultures drawn by me. km8 21:08 Blood Culture Adult (2) Sent. km8 21:08 CMP Sent. km8 21:08 Lactate w/ 2H reflex if indic. Sent. km8 21:08 Protime (+inr) Sent. km8 21:08 Ptt, Activated Sent. km8 21:08 Wound Culture Sent. 8 21:36 Kajal Chaudhry, RN is Primary Nurse. [facility] 22:04 Monica Calderón MD is Hospitalizing Provider. cp 22:49 EKG done, by ED staff. vk 23:19 Assisted to bathroom. km8 23:19 No provider procedures requiring assistance completed. [facility] 23:21 Urinalysis w/ reflexes Sent. [facility] 11/19 00:00 Patient admitted, IV remains in place. [facility] Administered Medications: 11/18 21:10 Drug: morphine IVP or IV 4 mg IVP once over 4 mins Route: IVP; Infused Over: 4 mins; [facility] Site: left antecubital; 23:21 Follow up: Response: No adverse reaction [facility] 21:10 Drug: Ondansetron IVP 4 mg IVP once; over 2 minutes Route: IVP; Site: left antecubital; [facility] 23:21 Follow up: Response: No adverse reaction [facility] 22:35 Drug: NS 0.9% IV 1000 ml IV at 999 ml/hr Per protocol; 1000 mL bolus Route: IV; Rate: [facility] 999 ml/hr; Site: left antecubital; 11/19 01:25 Follow up: IV Status: Completed infusion; IV Intake: 1000ml [facility] 11/18 22:35 Drug: Cefepime IVPB 1 grams IVPB at 200 ml/hr once over 30 mins; (mix in NS 100 mL) [facility] Route: IVPB; Rate: 200 ml/hr; Infused Over: 30 mins; Site: left antecubital; 23:05 Follow up: IV Status: Completed infusion; IV Intake: 100ml [facility] 22:35 Drug: Insulin Regular Human IVP 10 units IVP once {Co-Signature: vc1 (Vesna Kamara [facility] RN).} Route: IVP; Site: left antecubital; 11/19 04:49 Follow up: Response: No adverse reaction [facility] 11/18 23:21 Drug: vancoMYCIN IVPB 1 grams IVPB once over 2 hrs Route: IVPB; Infused Over: 2 hrs; [facility] Site: left antecubital; 11/19 01:25 Follow up: IV Status: Completed infusion; IV Intake: 250ml [facility] Medication: 11/18 20:50 VIS not applicable for this client. km8 Intake: 23:05 IV: 100ml; Total: 100ml. km8 11/19 01:25 IV: 250ml; Total: 350ml. km8 01:25 IV: 1000ml; Total: 1350ml. km8 Outcome: 11/18 22:06 Decision to Hospitalize by Provider. cp 11/19 00:00 Admitted to ER Hold. Please see [facility] for further documentation. km8 Condition: stable 00:00 Instructed on the need for admit, km8 06:31 Admitted to Med/surg accompanied by nurse, via wheelchair, room 223, with chart, km8 06:31 Patient left the ED. km8 Signatures: Dispatcher [employer] EDMS Lorena Landry, RN RN ss Imtiaz Murcia, SHARON PA Gabriel Aguilar, RN RN bp Vesna Kamara RN RN vc1 Stephanie Ramos [facility] Kecia Metzger [facility] Kajal Chaudhry RN RN km8 Migdalia Day Vanessa RN vc1 Corrections: (The following items were deleted from the chart) 03:13 03:13 Immunization history: Adult Immunizations km8 km8
[2023-11-19] MEDS ORDERED: INSULIN REGULAR (HUMAN) 100 UNIT/ML ONE (22:30)
--- NOTE | 2023-11-19 22:38 | P.HP ---
Certification for Inpatient With expected LOS: >2 Midnights Patient will require the following post-hospital care: None Practitioner: I am a practitioner with admitting privileges, knowledge of patient current condition, hospital course, and medical plan of care. Services: Services provided to patient in accordance with Admission requirements found in Title 42 Section 412.3 of the Code of Federal Regulations Patient History Date of Service: 11/19/23 Reason for admission: Left fourth digits pain and redness History of Present Illness: 78-year-old female with past medical history of hypertension diabetes mellitus, PVD, multiple right foot toes amputation presenting with left fourth digit pain and redness. Onset since the last 3 days. She was seen in the emergency room 2 days ago and sent home on oral clindamycin. She states symptoms of pain and redness has worsened since 10 she presented again on follow-up today. On arrival in the ED she was noted with elevated lactate of 2.6, x-ray of the foot shows some mild radiolucent areas. CRP elevated at 130, WBC elevated at 14,000 with left shift, ultrasound of the lower extremity shows moderate PVD. Patient is being admitted for failure of oral antibiotics with persistent left foot cellulitis. Allergies No Known Allergies Allergy (Verified 10/24/22 10:59) Home Medications: Aspirin Chewable [Aspirin Chewable*] 81 mg PO DAILY 10/31/19 Atorvastatin Calcium [Lipitor] 80 mg PO BEDTIME 09/15/21 Gabapentin 300 mg PO TID 09/15/21 Hydrocodone Bit/Acetaminophen [Hydrocodon-Acetaminophn 10-325] 1 each PO Q6HP PRN 09/15/21 Insulin Glargine,Hum.rec.anlog [Lantus] 10 unit SQ BID 09/15/21 Metformin HCl [Metformin ER Osmotic] 1,000 mg PO BID 09/15/21 Polyethylene Glycol 3350 [Miralax] 17 gm PO DAILY PRN 09/15/21 - Past Medical/Surgical History Diabetic: Yes -: HTN -: DM2 -: Amputation of right toes 2019 -: Vascular sx 2021 -: Right breast tumor removal 1972 -: Skin Graft 10/2019 -: wrist and elbow surgery -: toe amputation -: R leg stent -: 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 - Family History Father -: Heart disease Mother -: Diabetes - Social History Smoking Status: Never smoker Smoking therapy provided: No Alcohol use: No CD- Drugs: No Caffeine use: Yes Place of Residence: Home Review of Systems Musculoskeletal: Foot Pain Physical Examination - Physical Exam General: Alert, In no apparent distress, Oriented x3 HEENT: Atraumatic, Normocephalic, PERRLA Neck: Supple, 2+ carotid pulse no bruit, JVD not distended Respiratory: Clear to auscultation bilaterally, Normal air movement Cardiovascular: No edema, Normal pulses, Regular rate/rhythm, Normal S1 S2 Capillary refill: <2 Seconds Gastrointestinal: Normal bowel sounds, Soft and benign, Non-distended, No ascites Integumentary: Tenderness/swelling (of left 4th digit extending to mid foot ), Erythema, Warmth Neurological: Normal speech, Normal strength at 5/5 x4 extr, Cranial nerves 3-12 intact - Studies Laboratory Data (last 24 hrs) 11/19/23 11/19/23 11/19/23 20:53 20:53 20:53 WBC 14.60 H Hgb 11.6 L Hct 35.5 L Plt Count 280 PT 12.0 INR 1.09 APTT 29.2 Sodium 128 L Potassium 3.8 BUN 12 Creatinine 1.01 Glucose 348 H Total Bilirubin 1.8 H AST 15 ALT 24 Alkaline Phosphatase 85 Assessment and Plan - Advance Directives Does patient have a Living Will: No Does patient have a Durable POA for Healthcare: No
[2023-11-19] MEDS ORDERED: ALBUTEROL 2.5 MG/3 ML NEB SOL NEB PRN (22:41)
[2023-11-19] MEDS ORDERED: LORAZEPAM 0.5 MG TABLET PO PRN (22:45)
[2023-11-19] MEDS ORDERED: VANCOMYCIN 1 GM in NA CHLORIDE 0.9% 250 ML IVPB SCH (23:00)
[2023-11-20 00:17] LABS: Specific Gravity 1.021 (1.005-1.030); Sqamous Epithelial <5 /HPF (None Seen); Urine Bacteria None Seen /HPF (<20); Urine Bilirubin NEGATIVE (Negative); Urine Blood Negative (Negative); Urine Clarity Clear (Clear); Urine Color Light-Yellow (Yellow); Urine Culture Reflex Order NOT NEEDED; Urine Glucose 4+ (Over) (Negative); Urine Ketones NEGATIVE (Negative); Urine Microscopic Reflex YN ORDER UMIC; Urine Mucus Slight /HPF (None Seen); Urine Nitrite NEGATIVE (Negative); Urine Protein TRACE (Negative); Urine RBC <5 /HPF (None Seen); Urine Urobilinogen Normal (Normal); Urine WBC <5 /HPF (<5)
[2023-11-20] MEDS: VANCOMYCIN 750 MG in NA CHLORIDE 0.9% 150 ML IVPB ONE (03:28)
[2023-11-20 03:36] VITALS: BMI 24.8
[2023-11-20] MEDS: MORPHINE 2 MG/ML SYR IV PRN (04:00)
[2023-11-20] MEDS: NA CHLORIDE 0.9% 1,000 ML IV SCH (04:00)
[2023-11-20] MEDS: INSULIN REGULAR (HUMAN) 100 UNIT/ML SQ SCH (04:12)
[2023-11-20] MEDS ORDERED: MORPHINE 2 MG/ML SYR ONE (04:15)
[2023-11-20] MEDS ORDERED: NA CHLORIDE 0.9% 1,000 ML ONE (04:16)
[2023-11-20 04:36] LABS: Absolute Basophils 0.1 K/uL (0-0.5); Absolute Eosinophils 0.1 K/uL (0-0.5); Absolute Lymphocytes (CBC) 3.5 K/uL (0.7-4.9); Absolute Monocytes 1.3 K/uL (0.1-1.3); Absolute Neutrophil 10.3 K/uL (1.8-8.0); Basophils % 0.4 % (0-1.3); Eosinophils % 0.7 % (0-4.4); Hematocrit 31.7 % (36.0-45.0); Hemoglobin 10.6 g/dL (12.0-15.0); Lymphocytes % 22.9 % (15.3-44.8); MCH 30.1 pg (27.0-35.0); MCHC 33.4 g/dL (32.0-36.0); MCV 90.2 fL (80-100); MPV 8.2 fL (7.6-11.3); Monocytes % 8.5 % (3.3-12.3); Neutrophils % 67.5 % (41.7-73.7); Platelets 261 thou/uL (152-406); RBC Red Blood Cell Count 3.51 M/uL (3.86-4.86); Red Cell Distribution Width 12.4 % (12.1-15.2)
[2023-11-20 04:53] LABS: Albumin 2.6 g/dL (3.4-5.0); Albumin/Globulin Ratio 0.6 (1.1-1.8); Anion Gap 8.7 mEq/L (5.0-15.0); Bilirubin Total 1.5 mg/dL (0.2-1.0); Globulin 4.3 g/dL (2.3-3.5); Potassium 3.7 mEq/L (3.5-5.1); Protein, Total 6.9 g/dL (6.4-8.2); Troponin High Sensitivity 8.7 pg/mL (<58.9)
[2023-11-20] MEDS: ASPIRIN EC 81 MG TAB PO SCH (08:40)
[2023-11-20] MEDS: CEFEPIME 2 GM in NA CHLORIDE 0.9% 100 ML IV SCH ×2 (08:40→20:55)
[2023-11-20] MEDS: FAMOTIDINE 20 MG TAB PO SCH (08:41)
[2023-11-20] MEDS: ENOXAPARIN 40 MG/0.4 ML SQ SCH (08:41)
[2023-11-20] MEDS: GABAPENTIN 300 MG CAP PO SCH (08:41)
[2023-11-20] MEDS ORDERED: ASPIRIN EC 81 MG TAB PO SCH (09:00)
--- NOTE | 2023-11-20 11:03 | RAD REPORT ---
EXAM DESCRIPTION: MRI - Foot Left Wo Cont - 11/20/2023 9:40 am CLINICAL HISTORY: Left foot cellulitis rule out osteomyelitis COMPARISON: Foot Left 2 View dated 11/19/2023 TECHNIQUE: Multiplanar multisequence MRI of the left foot, obtained without IV contrast. FINDINGS: Motion artifact limits evaluation, despite attempts at repeat imaging. Osseous destructive changes laterally with adjacent marrow signal abnormalities including low T1 and high T2 signal, involving the fourth digit proximal and middle phalanges, around the proximal interph alangeal joint. Adjacent soft tissue swelling of the distal fourth digit. No other marrow signal abnormality. The visualized deep muscles of the foot are unremarkable. Large calcaneal spur, with thickening and suspected partial tear at the plantar aponeurosis attachmen t. [id number] midfoot degenerative changes. No appreciable joint effusions. Mild soft tissue swelling along the dorsum of the foot laterally. No appreciable fluid collections. IMPRESSION: Findings concerning for acute osteomyelitis involving the fourth digit proximal and midd le phalanges surrounding the proximal interphalangeal joint. Adjacent soft tissue swelling and irregu larity of the fourth digit. Mild soft tissue swelling along the dorsum of the foot laterally. Other findings including plantar fascitis with suspected partial tear at the plantar fascia attachmen t.
[2023-11-20] MEDS: MORPHINE 4 MG/ML SYR IV PRN (11:19)
[2023-11-20] MEDS: POVIDONE-IODINE 118.25 ML BOTTLE TOP SCH (11:30)
--- NOTE | 2023-11-20 12:22 | P.PN ---
Date of Service: 11/20/23 Subjective: continues with pain in left foot reports black area on back of toes/foot for last few days ROS: 10 point ROS as noted above, otherwise negative Physical Exam: GEN: Alert, oriented, NAD - intermittent pain HEENT: Normal conjunctiva, sclera anicteric CV: Regular rate and rhythm, no edema Pulm: Nonlabored respirations on room air, clear bilaterally Integumentary: tenderness/swelling/erythema of the left 4th digit extending to mid foot with areas of dark/black discoloration Neuro: Normal speech, normal affect vitals reviewed Problem List: Sepsis secondary to Acute cellulitis compliated by Osteomyelitis of left 4th toe Moderate Peripheral Vascular Disease of LLE IDDM2 with hyperglycemia and Peripheral neuropathy Hypertension Sepsis secondary to Acute Osteomyelitis of left foot Moderate Peripheral Vascular Disease presents with worsening left foot pain/redness. Recently seen in ER ~2-3 days ago and was given prescriptions for clindamycin. MRI L foot (11/19): Acute osteomyelitis involving the fourth digit proximal and middle phalanges surrounding the proximal interphalangeal joint. Adjacent soft tissue swelling and irregularity of the fourth digit. Mild soft tissue swelling along the dorsum of the foot laterally. Other findings including plantar fascitis with suspected partial tear at the plantar fascia attachment doppler u/s (11/18): moderate peripheral vascular disease of left lower extremity Dr. Palomares consulted ID consulted follow blood cx (11/18): pending continue empiric cefepime / vancomycin (11/19-) will need 6 weeks of antibiotics, but possibly may need amputation Dr. Kowalski consulted NPO after midnight, possible surgery tomorrow PRN anagesics / antiemetics continue PT IDDM2 with hyperglycemia and Peripheral neuropathy accu-checks, SSI confirm home dose insulin resume home metformin, gabapentin Hypertension confirm home meds, restart as appropriate VTE: Lovenox Code: Full Dispo: home with HH pending cultures / possible surgery / ?long-term IV abx
[2023-11-20] MEDS: HYDROCODONE/APAP 10/325 TAB PO PRN (12:25)
--- NOTE | 2023-11-20 13:07 | CON ---
History Of Present Illness: This is a 78-year-old female, who had a trauma to the left foot in Decem 2022. Since then, she has developed wound and infection to her left foot, coming in for last few days of swelling, redness and discomfort to the left foot. Patient has significant past medical his tory of diabetes mellitus, hypertension, peripheral vascular disease, multiple right foot toe amputat ion, presents with the left fourth digit pain and tenderness and ulceration between the fourth and fi fth toes. The patient has purplish to red discoloration of the foot in the toe region. She was sent on clindamycin, but her pain and discomfort worsened since then. Past Medical History: As per HPI. Social History: Nonsmoker. Nondrinker. Family History: Noncontributory. Medication: Cefepime and vancomycin. See MARs for other medications. Allergies: NO KNOWN DRUG ALLERGIES. Review of Systems: A 10-point review was performed. Physical Examination: General: A 78-year-old female, lying in bed, not in any acute cardiopulmonary distress. Vital Signs: Temperature 98, pulse 70, respirations 16, blood pressure 129/67. HEENT: Unremarkable. Neck: Supple. Lungs: Basal crackles. Heart: S1, S2. Regular. Abdomen: Soft, nontender. Bowel sounds present. Extremity: Left foot with erythematous changes and purplish discoloration of the left fourth toe and ulceration noted at the lateral aspect of the fourth toe. 1+ edema also noted. Laboratory Data: Shows WBC 15.2, hemoglobin 10.6, platelets 261, BUN of 9, creatinine 0.7. Lactic a miguelangel 2.9. C-reactive protein of 130. Albumin level is 2.6. Cultures are pending. Wound culture is growing gram-positive cocci. The patient is currently on vancomycin and cefepime. Assessment And Plan: Patient with the diabetic neuropathy and peripheral vascular disease, coming in with left foot wound and ulceration, diabetic ulcer and cellulitis of the left foot. MRI is pending to rule out osteomyelitis. X-ray of the foot done earlier yesterday shows no acute osseous abnormal ities. If osteomyelitis, we will continue antibiotic for 6 weeks, otherwise 2 weeks. Keep legs elev ated. Also recommend to apply Betadine to the foot wound and to the toe region Sunday, Sunday, Fr . We will follow the patient as needed. Thank you for consult. APRIL Voice ID: [id number] Report ID: [id number]
--- NOTE | 2023-11-20 13:18 | EKG ---
Test Date: 2023-11-19 Test Time: 22:45:36 Visor Installer: GISSEL MEASUREMENT RESULTS: Intervals: Rate: 72 MO: QRSD: 86 QT: 438 QTc: 479 [place]: P: MO: QRS: 3 T: -2 INTERPRETIVE STATEMENTS: Atrial fibrillation Septal infarct, age undetermined Abnormal ECG Compared to ECG 11/17/2023 09:37:46 Myocardial infarct finding now present Sinus rhythm no longer present Sinus arrhythmia no longer present Electronically Signed On 11-20-23 13:16:31 CDT by Lon Beltran
--- NOTE | 2023-11-20 13:18 | EKG ---
Test Date: 2023-11-19 Test Time: 22:46:48 [employer]: GISSEL MEASUREMENT RESULTS: Intervals: Rate: 63 AL: 172 QRSD: 86 QT: 414 QTc: 423 [place]: P: 33 AL: 172 QRS: 0 T: 0 INTERPRETIVE STATEMENTS: Sinus rhythm with occasional premature ventricular complexes and premature atrial complexes Septal infarct, age undetermined Abnormal ECG Compared to ECG 11/19/2023 22:45:36 Atrial premature complex(es) now present Ventricular premature complex(es) now present Atrial fibrillation no longer present Myocardial infarct finding still present Electronically Signed On 11-20-23 13:16:28 CDT by Lon Beltran
[2023-11-20] MEDS: METFORMIN ER 500 MG TAB PO SCH (16:41)
[2023-11-20] MEDS: VANCOMYCIN 1.25 GM in NA CHLORIDE 0.9% 250 ML IVPB SCH (17:27)
[2023-11-20] MEDS ORDERED: VANCOMYCIN 1.75 GM in NA CHLORIDE 0.9% 500 ML IVPB SCH (18:00)
[2023-11-20] MEDS: ATORVASTATIN 80 MG TAB PO SCH (20:59)
[2023-11-20] MEDS: INSULIN GLARGINE 100 UNIT/ML SQ SCH (20:59)
[2023-11-20] MEDS: ONDANSETRON 4 MG/2 ML VIAL IV PRN (22:03)
[2023-11-21] MEDS ORDERED: VANCOMYCIN 1.75 GM in NA CHLORIDE 0.9% 500 ML IVPB SCH (04:00)
[2023-11-21 07:51] LABS: Absolute Basophils 0.1 K/uL (0-0.5); Absolute Eosinophils 0.1 K/uL (0-0.5); Absolute Monocytes 1.3 K/uL (0.1-1.3); Absolute Neutrophil 10.6 K/uL (1.8-8.0); Basophils % 0.4 % (0-1.3); Eosinophils % 0.6 % (0-4.4); Hematocrit 29.5 % (36.0-45.0); Hemoglobin 9.8 g/dL (12.0-15.0); Lymphocytes % 20.1 % (15.3-44.8); MCHC 33.4 g/dL (32.0-36.0); MCV 89.7 fL (80-100); Monocytes % 8.6 % (3.3-12.3); Neutrophils % 70.3 % (41.7-73.7); Platelets 264 thou/uL (152-406); RBC Red Blood Cell Count 3.28 M/uL (3.86-4.86); Red Cell Distribution Width 12.6 % (12.1-15.2)
[2023-11-21 08:13] LABS: Albumin 2.1 g/dL (3.4-5.0); Albumin/Globulin Ratio 0.6 (1.1-1.8); Anion Gap 4.5 mEq/L (5.0-15.0); Bilirubin Total 1.3 mg/dL (0.2-1.0); Globulin 3.8 g/dL (2.3-3.5); Potassium 3.5 mEq/L (3.5-5.1); Protein, Total 5.9 g/dL (6.4-8.2)
--- NOTE | 2023-11-21 08:46 | P.PN ---
Date of Service: 11/21/23 Subjective: continues with left foot pain ~same Dr. Kowalski to eval for possible surgery today current pain medication takes edge off for a little bit no issues overnight afebrile ROS: 10 point ROS as noted above, otherwise negative Physical Exam: GEN: Alert, oriented, NAD - intermittent pain HEENT: Normal conjunctiva, sclera anicteric CV: Regular rate and rhythm, no edema Pulm: Nonlabored respirations on room air, clear bilaterally Integumentary: tenderness of the left 4th digit extending to mid foot with areas of dark/black discoloration Neuro: Normal speech, normal affect vitals reviewed Problem List: Sepsis secondary to Acute cellulitis compliated by Osteomyelitis of left 4th toe Moderate Peripheral Vascular Disease of LLE IDDM2 with hyperglycemia and Peripheral neuropathy Hypertension Sepsis secondary to Acute Osteomyelitis of left foot Moderate Peripheral Vascular Disease presents with worsening left foot pain/redness. Recently seen in ER ~2-3 days ago and was given prescriptions for clindamycin. MRI L foot (11/19): Acute osteomyelitis involving the fourth digit proximal and middle phalanges surrounding the proximal interphalangeal joint. Adjacent soft tissue swelling and irregularity of the fourth digit. Mild soft tissue swelling along the dorsum of the foot laterally. Other findings including plantar fascitis with suspected partial tear at the plantar fascia attachment doppler u/s (11/18): moderate peripheral vascular disease of left lower extremity Dr. Palomares consulted ID consulted follow blood cx (11/18): pending continue empiric cefepime / vancomycin (11/19-) will need 6 weeks of antibiotics if no amputation Dr. Kowalski consulted NPO until eval by surgery for possible amputation/I&D today PRN anagesics / antiemetics continue PT IDDM2 with hyperglycemia and Peripheral neuropathy accu-checks, SSI confirm home dose insulin Hypertension confirm home meds, restart as appropriate VTE: Lovenox Code: Full Dispo: home with HH pending cultures / possible surgery / ?care home IV abx
[2023-11-21] MEDS: NA CHLORIDE 0.9% 1,000 ML ONE (10:20)
[2023-11-21] MEDS ORDERED: FENTANYL CITR 100 MCG/2 ML ONE (10:37)
[2023-11-21] MEDS ORDERED: LIDOCAINE 2% MPF 5 ML VIAL ONE (10:37)
[2023-11-21] MEDS ORDERED: ONDANSETRON 4 MG/2 ML VIAL ONE (10:37)
[2023-11-21] MEDS ORDERED: propofoL 200 MG/20 ML VIAL IV ONE (10:37)
[2023-11-21] MEDS ORDERED: EPHEDRINE SULF 50 MG/ML VIAL ONE (10:53)
[2023-11-21] MEDS ORDERED: dexAMETHasone 4 MG/ML VIAL ONE (10:55)
[2023-11-21] MEDS: VANCOMYCIN 1.25 GM in NA CHLORIDE 0.9% 250 ML IVPB SCH (11:00)
[2023-11-21] MEDS: MUPIROCIN 2% OINT 22GM TUBE TOP ONE (11:13)
--- NOTE | 2023-11-21 11:18 | P.BOP ---
Preoperative diagnosis: cellulitis left foot with osteomyelitis left 4th toe Postoperative diagnosis: same Primary procedure: 1. Left 4th toe amputation, 2. I&D left foot abscess Estimated blood loss: 1cc Specimen: toe Findings: toe destructive osteomyelitis, small abscess left dorsal foot Anesthesia: General Complications: None Drain(s): Other (packing dorsum of foot with packing toe amputarion site) Transferred to: Recovery Room Condition: Good
--- NOTE | 2023-11-21 13:53 | PN ---
Date of Progress Note: 11/21/2023 Subjective: Patient lying in bed. Continued to have discomfort to the left foot. Denies any other problems. Objective: Vital Signs: Temperature 97, pulse 79, respirations 16, blood pressure 86/47. Lungs: Basal crackles. Heart: S1, S2. Regular. Abdomen: Soft, nontender. Bowel sounds present. Extremities: No edema. Laboratory Data: Shows 15.1 WBC, hemoglobin 9.8, platelets 264. Chemistry shows BUN 8, creatinine 0 .7. Blood cultures are negative to date. Medications: The patient is currently on cefepime and vancomycin. See MARs for other medications. Assessment And Plan: Osteomyelitis of left foot involving fourth digit. Patient has opted for surgi casey amputation of the osteomyelitis as she already has right-sided foot all toes amputated for the [facility] reason. Continue current treatment for 6 weeks. We will follow the patient as needed. NF/MODL Voice ID: [id number] Report ID: [id number]
--- NOTE | 2023-11-21 14:23 | CON ---
Date of Consultation: 11/21/2023 Diagnoses: Osteomyelitis and cellulitis of the left fourth digit and also cellulitis of the foot. History Of Present Illness: This is the case of a 78-year-old patient with multiple medical problems including peripheral vascular disease, diabetes, previous amputations on the opposite side all digit s, but then in the left side, she thinks she hit it. She uses sandals that was not protecting her ru b against the fourth toe, developed an open ulcer in that area with ischemia and cyanosis. She was d iscovered to have osteomyelitis and was approached by the primary doctor and the patient. She does n ot want to go and try to treat the osteomyelitis. She wants that toe removed. Past Medical History: Diabetes, hypertension. Past Surgical History: Includes amputation of all the toes on the right foot. She has vascular surg liyah done. She has lumpectomies in the right breast in 1972. Recent elbow surgeries. Leg stent. Family History: Includes heart disease, diabetes. Social History: She does not smoke. She does not drink alcohol. Allergies: NONE. Review of Systems: See HPI. She has tenderness in the toe region. No fever. No shortness of breath. No chest pain. 10 points otherwise unremarkable. Physical Examination: Vital Signs: Reviewed. General: The patient is awake, alert. HEENT: Pupils are equal and reactive. Anicteric. Neck: Supple. Chest: Clear. Heart: S1, S2. Abdomen: Soft and depressible. Extremities: The patient is missing all the digits on the right side from previous amputations. On the left side, the patient has fourth digit with erythema, tenderness, swelling, discharge, cyanosis. Dorsalis pedis pulses diminished. Once again, she has been seen by Vascular Surgery in the past. Data: MRI reviewed, showed osteomyelitis of the left fourth toe. Assessment: A 78-year-old patient with cyanosis of the left fourth toe. Some ischemic changes prese nt, developed into gangrene. She has also osteomyelitis. She wants the toe removed. She does not w ant to go through the process of treating this osteomyelitis. She understands very well the situatio n. She is missing all the toes on the opposite foot. Still I explained to the patient even though i f she removes that toe the circulation issue may be a challenge to heal this wound. She is not ready for anything other than that amputation eastman, but we encouraged her to do good diabetes control, see her vascular surgeons making sure that the work was done previously was still patent. Offloading sh oes. Careful with ambulation. 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 She might need wound care and she [facility] So we are going to proceed with the amputation of the left fourth toe. MIKE/KASSIDY Voice ID: [id number] Report ID: [id number]
[2023-11-21] MEDS ORDERED: ALBUTEROL 2.5 MG/3 ML NEB SOL NEB PRN (17:22)
[2023-11-21] MEDS: HYDROCODONE/APAP 10/325 TAB PO ONE (19:30)
--- NOTE | 2023-11-21 22:14 | OP ---
Date of Procedure: 11/21/2023 Surgeon: Jimbo Kowalski MD Preoperative Diagnosis: Cellulitis of left foot with osteomyelitis of the left fourth toe. Postoperative Diagnoses: 1.Cellulitis of left foot with osteomyelitis of the left fourth toe. 2.Dorsal foot abscess and osteomyelitis of the left fourth toe. Procedure: Left fourth toe amputation with incision and drainage of left foot abscess. Estimated Blood Loss: Less than 1 cc. Specimen: Toe. Findings: There was 2 findings. Obviously, the toe has some destruction and that has to be removed, but also on the dorsum of the foot, there is an area of fluctuance that we make a small incision in that area and then drain that small abscess. This was packed with wet-to-dry and the incision was le ft partially open to heal by secondary intention. Anesthesia: General plus local. Complications: None. Indication: This is a case of 78-year-old patient with peripheral vascular disease, osteomyelitis, a nd cellulitis of the left fourth toe with cellulitis of the foot. The patient wants the amputation d one. The benefits, alternatives, and risks of amputation fully explained, which include, but not barrett ited to infection, bleeding, damage to adjacent structures, nonhealing wound, PR, and . She als o understands this may not relieve the symptoms. She might need more than one surgical intervention. She understand the importance of diabetes control, offloading, diabetic shoes, nutrition, and also following up with her vascular surgeon. She signed the consent. Description Of Procedure: The patient was brought to the operating room and placed in supine positio n. Anesthesia was done without complication. Left foot was prepped and draped in sterile fashion. A time-out was called. An incision was made at the base of the left fourth area. Incision was rodolfo ed down to bone and then until we found the joint. The toe was removed. The head of metatarsal bone was excoriated. Profuse irrigation was done. We noted there was some fluctuance in the dorsum of t he foot right near that area, so we made a counter incision in the dorsum of the foot and irrigated t hat region. A small abscess found and then after that we packed that area with a wet-to-dry and then the incision was partially left open after we put 0 chromic and the mattress sutures twice in the in cision just to approximate a little bit, but not to close the wound completely. Bactroban placed in that area with sterile dressings. The patient tolerated the procedure well. The patient sent to [facility] over in stable condition. The patient will be re-admitted to the hospital. MIKE/KASSIDY Voice ID: [id number] Report ID: [id number]
[2023-11-22 07:15] LABS: Absolute Lymphocytes (CBC) 1.6 K/uL (0.7-4.9); Absolute Neutrophil 14.7 K/uL (1.8-8.0); Basophils % 0.2 % (0-1.3); Eosinophils % 0.1 % (0-4.4); Hematocrit 28.5 % (36.0-45.0); Hemoglobin 9.9 g/dL (12.0-15.0); Lymphocytes % 9.1 % (15.3-44.8); MCH 31.1 pg (27.0-35.0); MCHC 34.9 g/dL (32.0-36.0); MCV 89.3 fL (80-100); MPV 8.5 fL (7.6-11.3); Monocytes % 5.6 % (3.3-12.3); Platelets 282 thou/uL (152-406); RBC Red Blood Cell Count 3.19 M/uL (3.86-4.86); Red Cell Distribution Width 12.6 % (12.1-15.2)
[2023-11-22 07:28] LABS: Anion Gap 8.6 mEq/L (5.0-15.0); Magnesium 1.6 mg/dL (1.6-2.4); Potassium 3.6 mEq/L (3.5-5.1)
[2023-11-22] MEDS: INSULIN REGULAR (HUMAN) 100 UNIT/ML SQ SCH (09:02)
--- NOTE | 2023-11-22 10:53 | P.PN ---
Date of Service: 11/22/23 Subjective: had left 4th toe amputation and I&D of left foot abscess yesterday with Dr. Kowalski doing well post-operatively pain tolerable with current pain regimen afebrile ROS: 10 point ROS as noted above, otherwise negative Physical Exam: GEN: Alert, oriented, NAD - intermittent pain HEENT: Normal conjunctiva, sclera anicteric CV: Regular rate and rhythm, no edema Pulm: Nonlabored respirations on room air, clear bilaterally Integumentary: s/p left 4th toe amputation, dorsum of left foot packed, surgical site with some slight dusky /dark appearance Neuro: Normal speech, normal affect vitals reviewed Problem List: Sepsis secondary to acute cellulitis complicated by Osteomyelitis of left 4th toe, now s/p left 4th toe amputation (11/20) Left dorsal foot abscess s/p I&D (11/20) Moderate Peripheral Vascular Disease of LLE IDDM2 with hyperglycemia and Peripheral neuropathy Hypertension Sepsis secondary to acute cellulitis complicated by Osteomyelitis of left 4th toe, now s/p left 4th toe amputation (11/20) Left dorsal foot abscess s/p I&D (11/20) Moderate Peripheral Vascular Disease presents with worsening left foot pain/redness. Recently seen in ER ~2-3 days ago and was given prescriptions for clindamycin. MRI L foot (11/19): Acute osteomyelitis involving the fourth digit proximal and middle phalanges surrounding the proximal interphalangeal joint. doppler u/s (11/18): moderate peripheral vascular disease of left lower extremity Dr. Palomares consulted - current plan is to see patient in office as outpatient. ID consulted follow blood cx (11/18): NGTD wound cx (11/20): prelim 3+ mixed skin sherri continue empiric cefepime / vancomycin (11/19-) will need PICC line for 6 weeks IV antibiotics; ordered 11/21 will re-eval vanc dosing on 11/[address] Kowalski, general surgeon consulted s/p left 4th toe amputation (11/20) also found to have small abscess of the left dorsal foot during surgery, now s/p I&D (11/20) monitor wound for demarcation PRN anagesics / antiemetics continue PT IDDM2 with hyperglycemia and Peripheral neuropathy accu-checks, SSI confirm home dose insulin Hypertension confirm home meds, restart as appropriate VTE: Lovenox Code: Full Dispo: home with , ~2-3 days pending cultures / PICC line for long term IV antibiotics monitoring wound / amputation site
[2023-11-22] MEDS: VANCOMYCIN 1.25 GM in NA CHLORIDE 0.9% 250 ML IVPB SCH (12:00)
--- NOTE | 2023-11-22 13:33 | PN ---
Subjective: Patient lying in bed. Denies any headache, nausea, vomiting, chest pain, abdominal pain , constipation, or diarrhea. Objective: Vital Signs: Temperature 97, pulse rate 50, respirations 14, blood pressure 136/60. Lungs: Basal crackles. Heart: S1, S2. Regular. Abdomen: Soft, nontender. Bowel sounds present. Extremity: Trace edema. Erythematous changes with purplish discoloration noted at the site of amput ation. Assessment And Plan: Osteomyelitis of the fourth toe, status post amputation. We will recommend to continue Iodoform gauze packing and Betadine painting to the foot. Continue IV antibiotic for 6 week s. Leukocytosis. Anemia of chronic disease. Continue vancomycin and cefepime for 6 weeks. Conside r long-term acute care. NF/MODL Voice ID: [id number] Report ID: [id number]
[2023-11-22] MEDS: POLYETHYL GLY 3350 17 GM/DOSE PO PRN (16:31)
--- NOTE | 2023-11-22 17:16 | RAD REPORT ---
EXAM DESCRIPTION: RADChest Single View11/22/2023 4:12 pm CLINICAL HISTORY: PICC line placement COMPARISON: Chest Single View dated 09/26/2022; Chest Single View dated 09/24/2020; Chest Single View d ated 06/21/2020; CHEST SINGLE VIEW dated 07/22/2009 TECHNIQUE: Portable AP view of the chest. FINDINGS: Right arm PICC in place with tip projecting at the superior cavoatrial junction. Decreased inspiratory effort limits evaluation. The lungs are clear apart from central predominant chronic titi earing interstitial thickening, likely stable, and may represent chronic obstructive lung disease. N o pneumothorax or effusion. The cardiomediastinal contours are unremarkable. IMPRESSION: Right arm PICC in satisfactory position. Findings as above.
[2023-11-22] MEDS: DOCUSATE NA 100 MG CAP PO SCH (20:38)
[2023-11-22] MEDS: Mupirocin NASAL 2 APPL/1 GM TUBE NAS SCH (20:38)
[2023-11-23 04:40] LABS: Absolute Basophils 0.1 K/uL (0-0.5); Absolute Eosinophils 0.2 K/uL (0-0.5); Absolute Lymphocytes (CBC) 4.1 K/uL (0.7-4.9); Absolute Monocytes 1.2 K/uL (0.1-1.3); Absolute Neutrophil 14.8 K/uL (1.8-8.0); Basophils % 0.5 % (0-1.3); Eosinophils % 1.1 % (0-4.4); Hematocrit 27.6 % (36.0-45.0); Hemoglobin 9.7 g/dL (12.0-15.0); Lymphocytes % 20.2 % (15.3-44.8); MCHC 35.1 g/dL (32.0-36.0); MCV 88.2 fL (80-100); MPV 7.9 fL (7.6-11.3); Neutrophils % 72.2 % (41.7-73.7); Nucleated Red Blood Cells % 0.1 % (0-0); Platelets 351 thou/uL (152-406); RBC Red Blood Cell Count 3.13 M/uL (3.86-4.86); Red Cell Distribution Width 12.9 % (12.1-15.2)
[2023-11-23 04:43] LABS: Anion Gap 6.2 mEq/L (5.0-15.0); Magnesium 1.7 mg/dL (1.6-2.4); Potassium 3.2 mEq/L (3.5-5.1)
[2023-11-23 05:24] LABS: Band Neutrophils 19 % (0-1); Blood Morphology Comment NOT SEEN (NOT SEEN); Differential Total Cells Count 100; Lymphocytes 29 % (15-42); Monocytes 4 % (0-10); Platelet Estimate ADEQ; Segmented Neutrophils 48 % (40-80)
--- NOTE | 2023-11-23 07:45 | P.PN ---
Subjective Date of Service: 11/23/23 Chief Complaint: Left fourth digits pain and redness Review of Systems 10-point ROS is otherwise unremarkable Musculoskeletal: Foot Pain (left) Physical Examination - Vital Signs Temperature: 97.2 F Blood Pressure: 134/66 Pulse: 73 Respirations: 18 Pulse Ox (%): 97 - Physical Exam General: Alert, In no apparent distress HEENT: Atraumatic, Sclerae nonicteric Respiratory: Clear to auscultation bilaterally, Normal air movement Cardiovascular: Regular rate/rhythm, Abnormal pulses (pedal ) Gastrointestinal: Normal bowel sounds, Soft and benign Integumentary: Other (s/p left 4th toe amputation dressing c/d/i) Neurological: Normal speech - Studies laboratory, microbiology and imaging data reviewed Medications List Reviewed: Yes Assessment And Plan - Plan Problem List Sepsis secondary Cellulitis and Osteomyelitis of left 4th toe Left dorsal foot abscess Moderate Peripheral Vascular Disease of LLE IDDM2 with hyperglycemia Diabetic neuropathy Hypertension Sepsis secondary Cellulitis and Osteomyelitis of left 4th toe Left Dorsal Foot Abscess - s/p left 4th toe amputation and I&D on 11/20 - blood cultures 11/18: NGTD - left foot wound culture 11/18: 3+ beta hemolytic strep - leukocytosis worsening (WBC 15.1 -> 17.3 -> 20.4) - afebrile - PICC line (placed 11/21) Recommendations - Follow up with final wound culture/sensitivity results, 3+ beta hemolytic strep, will adjust antibiotic as appropriate. Continue Cefepime and Vancomycin for now - Osteomyelitis: recommend antibiotic therapy for 6 weeks duration (11/19- 12/30) - monitor CBC, BMP and vanco troughs - strict blood glucose control - continue local wound/surgical site care - consider LTAC placement for long-term IV antibiotics and wound care Case discussed with Darryl Nesbitt
--- NOTE | 2023-11-23 10:05 | P.PN ---
Date of Service: 11/23/23 Subjective: some pain at foot/amputation site when walking no worsening afebrile appetite ok denies n/v/d ROS: 10 point ROS as noted above, otherwise negative Physical Exam: GEN: Alert, oriented, NAD HEENT: Normal conjunctiva, sclera anicteric CV: Regular rate and rhythm, no edema Pulm: Nonlabored respirations on room air, clear bilaterally Integumentary: s/p left 4th toe amputation, surgical site with some slight dusky /dark appearance, less erythema on dorsum of foot, ( picture under notes tab) Neuro: Normal speech, normal affect vitals reviewed Problem List: Sepsis secondary to acute cellulitis complicated by Osteomyelitis of left 4th toe, now s/p left 4th toe amputation (11/20) Left dorsal foot abscess s/p I&D (11/20) Moderate Peripheral Vascular Disease of LLE IDDM2 with hyperglycemia and Peripheral neuropathy Hypertension Sepsis secondary to acute cellulitis complicated by Osteomyelitis of left 4th toe, now s/p left 4th toe amputation (11/20) Left dorsal foot abscess s/p I&D (11/20) Moderate Peripheral Vascular Disease presents with worsening left foot pain/redness. Recently seen in ER ~2-3 days prior to admission -> given prescriptions for clindamycin. MRI L foot (11/19): Acute osteomyelitis involving the fourth digit proximal and middle phalanges surrounding the proximal interphalangeal joint. doppler u/s (11/18): moderate peripheral vascular disease of left lower extremity Dr. Palomares consulted - current plan is to see patient in office as outpatient. Dr. Kowalski, general surgeon consulted s/p left 4th toe amputation (11/20) also found to have small abscess of the left dorsal foot during surgery, now s/p I&D (11/20) ID consulted follow blood cx (11/18): NGTD wound cx (11/20): 3+ beta hemolytic strep Group B prelim continue empiric cefepime / vancomycin (11/19-12/30) will discuss antibiotics with ID given worsening leukocytosis, could be 2/2 subtherapeutic vanc vs resistance vs some degree of ischemia PICC line placed 11/21 for senior living IV antibiotics. (end date: 12/31/23) will re-eval vanc dosing on 11/22 after trough afebrile, +leukocytosis 17.3 -> 20.4 (11/22) PRN anagesics / antiemetics continue PT IDDM2 with hyperglycemia and Peripheral neuropathy accu-checks, SSI confirm home dose insulin Hypertension confirm home meds, restart as appropriate VTE: Lovenox Code: Full Dispo: home with HH, ~-34 days pending cultures. PICC placed 11/21 monitoring wound / amputation site
[2023-11-23] MEDS: POTASSIUM 25 MEQ EFFERV TAB PO ONE (10:22)
[2023-11-23] MEDS: MUPIROCIN 2% OINT 22GM TUBE TOP SCH (15:12)
[2023-11-23] MEDS: INSULIN REGULAR (HUMAN) 100 UNIT/ML SQ SCH (20:56)
[2023-11-23] MEDS: INSULIN GLARGINE 100 UNIT/ML SQ SCH (21:39)
[2023-11-24 04:44] LABS: Absolute Basophils 0.1 K/uL (0-0.5); Absolute Eosinophils 0.2 K/uL (0-0.5); Absolute Lymphocytes (CBC) 3.6 K/uL (0.7-4.9); Absolute Neutrophil 10.9 K/uL (1.8-8.0); Basophils % 0.7 % (0-1.3); Eosinophils % 1.2 % (0-4.4); Hematocrit 28.7 % (36.0-45.0); Hemoglobin 9.8 g/dL (12.0-15.0); Lymphocytes % 22.9 % (15.3-44.8); MCH 30.4 pg (27.0-35.0); MCHC 34.2 g/dL (32.0-36.0); MPV 8.3 fL (7.6-11.3); Monocytes % 6.3 % (3.3-12.3); Neutrophils % 68.9 % (41.7-73.7); Platelets 204 thou/uL (152-406); RBC Red Blood Cell Count 3.22 M/uL (3.86-4.86); Red Cell Distribution Width 12.9 % (12.1-15.2)
[2023-11-24 04:47] LABS: Anion Gap 4.7 mEq/L (5.0-15.0); C-Reactive Protein 86.5 mg/L (<3.00); Potassium 3.7 mEq/L (3.5-5.1)
[2023-11-24] MEDS: POTASSIUM CL SA 10 MEQ TAB PO ONE (08:42)
--- NOTE | 2023-11-24 10:35 | P.PN ---
Date of Service: 11/24/23 Subjective: overall doing ok reports pain of forefoot when putting pressure on it having some stabbing pain at rest occasionally ROS: 10 point ROS as noted above, otherwise negative Physical Exam: GEN: Alert, oriented, NAD HEENT: Normal conjunctiva, sclera anicteric CV: Regular rate and rhythm, no edema Pulm: Nonlabored respirations on room air, clear bilaterally Integumentary: s/p left 4th toe amputation, surgical site with slight dusky /dark appearance, less erythema on dorsum of foot Neuro: Normal speech, normal affect vitals reviewed Problem List: Sepsis secondary to acute cellulitis complicated by Osteomyelitis of left 4th toe, now s/p left 4th toe amputation (11/20) Left dorsal foot abscess s/p I&D (11/20) Moderate Peripheral Vascular Disease of LLE IDDM2 with hyperglycemia and Peripheral neuropathy Hypertension Sepsis secondary to acute cellulitis complicated by Osteomyelitis of left 4th toe, now s/p left 4th toe amputation (11/20) Left dorsal foot abscess s/p I&D (11/20) Moderate Peripheral Vascular Disease of LLE MRI L foot (11/19): Acute osteomyelitis 4th digit proximal and middle phalanges surrounding the proximal interphalangeal joint. doppler u/s (11/18): moderate peripheral vascular disease of left lower extremity Dr. Palomares consulted - current plan is to see patient in office as outpatient. Dr. Kowalski, general surgeon consulted s/p left 4th toe amputation (11/20) also found to have small abscess of the left dorsal foot during surgery, now s/p I&D (11/20) ID consulted follow blood cx (11/18): NGTD wound cx (11/20): Streptococcus Agalactiae Grp B continue cefepime / vancomycin (11/19-12/30) will discuss antibiotics with ID given worsening leukocytosis, could be 2/2 subtherapeutic vanc vs some degree of ischemia PICC line placed 11/21 for custodial IV antibiotics. (end date: 12/31/23) afebrile, +leukocytosis improving, CRP improving PRN anagesics / antiemetics continue PT IDDM2 with hyperglycemia and Peripheral neuropathy accu-checks, SSI confirm home dose insulin Hypertension VTE: Lovenox Code: Full Dispo: home with HH, ~2-3 days pending cultures. PICC placed 11/21 monitoring wound / amputation site
[2023-11-24] MEDS: HYDRALAZINE HCL 20 MG/ML VIAL IV PRN (17:56)
[2023-11-25 05:04] LABS: Absolute Basophils 0.2 K/uL (0-0.5); Absolute Eosinophils 0.2 K/uL (0-0.5); Absolute Lymphocytes (CBC) 3.8 K/uL (0.7-4.9); Absolute Monocytes 1.1 K/uL (0.1-1.3); Absolute Neutrophil 12.2 K/uL (1.8-8.0); Eosinophils % 1.3 % (0-4.4); Hemoglobin 10.2 g/dL (12.0-15.0); Lymphocytes % 21.9 % (15.3-44.8); MCH 30.3 pg (27.0-35.0); MCV 89.3 fL (80-100); MPV 7.8 fL (7.6-11.3); Monocytes % 6.2 % (3.3-12.3); Neutrophils % 69.6 % (41.7-73.7); Platelets 314 thou/uL (152-406); RBC Red Blood Cell Count 3.36 M/uL (3.86-4.86); Red Cell Distribution Width 13.3 % (12.1-15.2)
[2023-11-25 05:22] LABS: Anion Gap 3.6 mEq/L (5.0-15.0); Potassium 3.6 mEq/L (3.5-5.1)
[2023-11-25] MEDS: POTASSIUM CL SA 10 MEQ TAB PO ONE (08:15)
--- NOTE | 2023-11-25 09:53 | P.PN ---
Date of Service: 11/25/23 Subjective: still dealing with foot pain but doesn't feel worse foot pain worst with ambulation afebrile ROS: 10 point ROS as noted above, otherwise negative Physical Exam: GEN: Alert, oriented, NAD HEENT: Normal conjunctiva, sclera anicteric CV: Regular rate and rhythm, no edema Pulm: Nonlabored respirations on room air, clear bilaterally Integumentary: s/p left 4th toe amputation, surgical site with slight dusky /dark appearance, less erythema on dorsum of foot Neuro: Normal speech, normal affect vitals reviewed Problem List: Sepsis secondary to acute cellulitis complicated by Osteomyelitis of left 4th toe, now s/p left 4th toe amputation (11/20) Left dorsal foot abscess s/p I&D (11/20) Moderate Peripheral Vascular Disease of LLE IDDM2 with hyperglycemia and Peripheral neuropathy Hypertension Sepsis secondary to acute cellulitis complicated by Osteomyelitis of left 4th toe, now s/p left 4th toe amputation (11/20) Left dorsal foot abscess s/p I&D (11/20) Moderate Peripheral Vascular Disease of LLE MRI L foot (11/19): Acute osteomyelitis 4th digit proximal and middle phalanges surrounding the proximal interphalangeal joint. doppler u/s (11/18): moderate peripheral vascular disease of left lower extremity Dr. Palomares consulted - current plan is to see patient in office as outpatient. Dr. Kowalski, general surgeon consulted s/p left 4th toe amputation (11/20) also found to have small abscess of the left dorsal foot during surgery, now s/p I&D (11/20) ID consulted follow blood cx (11/18): NGTD wound cx (11/20): Streptococcus Agalactiae Grp B continue cefepime / vancomycin (11/19-12/30) will discuss antibiotics with ID given worsening leukocytosis, could be 2/2 subtherapeutic vanc vs some degree of ischemia PICC line placed 11/21 for detention IV antibiotics. (end date: 12/31/23) afebrile, CRP/leukocytosis worse (11/24) continue PT IDDM2 with hyperglycemia and Peripheral neuropathy accu-checks, SSI confirm home dose insulin VTE: Lovenox Code: Full Dispo: home with , ~2-3 days pending cultures. monitoring wound / amputation site
--- NOTE | 2023-11-25 18:52 | PN ---
Subjective: The patient lying in bed. Denies any headache, nausea, vomiting, chest pain, abdominal pain, constipation, or diarrhea. Feels better today. After pain medication, her pain level is down to 4. Objective: Vital Signs: Temperature 98, pulse 67, respirations 18, blood pressure 173/80. Lungs: Clear to auscultation. Heart: S1, S2. Regular. Abdomen: Soft, nontender. Bowel sounds present. Extremities: Foot wound noted. Laboratory Data: WBC 17.5, hemoglobin 10.2, platelets 314. Chemistry shows BUN of 6, creatinine 0.7 . Wound cultures are growing strep B. The patient currently on cefepime and vancomycin. Assessment/plan: Left foot osteomyelitis, status post amputation of fourth toe. The patient still h as necrotic changes to the left foot. We will recommend to get a CT scan of the left foot to rule ou t further damage and extension of infection and continue IV antibiotic and wound care as per surgical team. Consider transferring patient to long-term acute care for IV antibiotic and wound care and di abetes management and hyperbaric. We will follow the patient as needed. NF/MODL Voice ID: [id number] Report ID: [id number]
[2023-11-26 04:20] LABS: Absolute Basophils 0.2 K/uL (0-0.5); Absolute Eosinophils 0.2 K/uL (0-0.5); Absolute Monocytes 1.1 K/uL (0.1-1.3); Absolute Neutrophil 11.6 K/uL (1.8-8.0); Basophils % 1.5 % (0-1.3); Eosinophils % 1.3 % (0-4.4); Hematocrit 28.9 % (36.0-45.0); Hemoglobin 9.8 g/dL (12.0-15.0); Lymphocytes % 18.8 % (15.3-44.8); MCH 30.1 pg (27.0-35.0); MCV 88.6 fL (80-100); MPV 7.5 fL (7.6-11.3); Monocytes % 6.5 % (3.3-12.3); Neutrophils % 71.9 % (41.7-73.7); Platelets 287 thou/uL (152-406); RBC Red Blood Cell Count 3.26 M/uL (3.86-4.86); Red Cell Distribution Width 12.8 % (12.1-15.2)
[2023-11-26 04:40] LABS: Anion Gap 4.4 mEq/L (5.0-15.0); Potassium 3.4 mEq/L (3.5-5.1)
[2023-11-26] MEDS: POTASSIUM 25 MEQ EFFERV TAB PO ONE (06:38)
[2023-11-26] MEDS: ALTEPLASE 2 MG/VIAL IV SCH (08:19)
--- NOTE | 2023-11-26 10:48 | RAD REPORT ---
EXAM DESCRIPTION: CT - Foot Left Wo Con - 11/26/2023 9:20 am CLINICAL HISTORY: eval, r/o further extension of infxn Osteomyelitis, pain and swelling COMPARISON: Foot Left Wo Cont dated 11/20/2023; Foot Left 2 View dated 11/19/2023 FINDINGS: There is evidence of recent amputation of the fourth toe. Small air bubbles are present in the surgical site. There is irregular soft tissue thickening present in the region surgery measure u p to 10 mm. No finding seen to indicate bony destruction/osteomyelitis. No well-formed fluid collecti ons. Prominent calcaneal spurs. IMPRESSION: Recent postsurgical changes of fourth toe amputation noted. Skin thickening and small ai r bubbles are present in the region adjacent to the amputation site. There is no evidence of bony rod truction elsewhere. No well-formed fluid collections. All CT scans are performed using dose optimization technique as appropriate and may include automated exposure control or mA/KV adjustment according to patient size.
--- NOTE | 2023-11-26 12:02 | P.PN ---
Date of Service: 11/26/23 Subjective: no acute events continues with foot pain when ambulating ROS: 10 point ROS as noted above, otherwise negative Physical Exam: GEN: Alert, oriented, NAD HEENT: Normal conjunctiva, sclera anicteric CV: Regular rate and rhythm, no edema Pulm: Nonlabored respirations on room air, clear bilaterally Integumentary: s/p left 4th toe amputation, surgical site with superficial ischemia, tender to palpation Neuro: Normal speech, normal affect vitals reviewed Problem List: Sepsis secondary to acute cellulitis complicated by Osteomyelitis of left 4th toe, now s/p left 4th toe amputation (11/20) Left dorsal foot abscess s/p I&D (11/20) Moderate Peripheral Vascular Disease of LLE IDDM2 with hyperglycemia and Peripheral neuropathy Hypertension Sepsis secondary to acute cellulitis complicated by Osteomyelitis of left 4th toe, now s/p left 4th toe amputation (11/20) Left dorsal foot abscess s/p I&D (11/20) Moderate Peripheral Vascular Disease of LLE MRI L foot (11/19): Acute osteomyelitis 4th digit proximal and middle phalanges surrounding the proximal interphalangeal joint. doppler u/s (11/18): moderate peripheral vascular disease of left lower extremity Dr. Palomares consulted - possible intervention sunday pending leukocytosis improving and availability Dr. Kowalski, general surgeon consulted s/p left 4th toe amputation (11/20) also found to have small abscess of the left dorsal foot during surgery, now s/p I&D (11/20) ID consulted follow blood cx (11/18): NGTD wound cx (11/20): Streptococcus Agalactiae Grp B continue cefepime / vancomycin (11/19-12/30) will discuss antibiotics with ID given worsening leukocytosis, could be 2/2 subtherapeutic vanc vs some degree of ischemia PICC line placed 11/21 for mcc IV antibiotics. (end date: 12/31/23) CT L foot (11/25): Skin thickening and small air bubbles in the region adjacent to amputation site. No evidence of destruction elsewhere or well-formed fluid collections. continue PT IDDM2 with hyperglycemia and Peripheral neuropathy accu-checks, SSI confirm home dose insulin semglee decreased to 5u at bedtime from 5u BID (11/25) VTE: Lovenox Code: Full Dispo: home with , ~ 3 days monitoring wound / amputation site
--- NOTE | 2023-11-26 16:14 | PN ---
Subjective: Patient lying in bed. No new acute event. Chart reviewed. Objective: Vital Signs: Reviewed. Lungs: Basal crackles. Heart: S1, S2. Regular. Abdomen: Soft, nontender. Bowel sounds present. Extremity: Left foot with erythematous changes and gangrenous changes by the surgical site. Laboratory Data: WBC 16.1, hemoglobin 9.8, platelets 287. Medications: The patient is currently on cefepime and vancomycin. Consider long-term acute care. Assessment And Plan: Osteomyelitis of left foot, status post amputation of fourth toe with some gang renous changes to the wound site. Consider long-term IV antibiotic for 4 to 6 weeks. Long-term acut e care. Continue current treatment with Betadine. Consider applying Betadine to the wound site. Ke ep leg elevated. Monitor blood sugars. We will follow the patient as needed. NF/MODL Voice ID: [id number] Report ID: [id number]
[2023-11-26] MEDS: NA CHLORIDE 0.9% 100 ML ONE (20:20)
[2023-11-26] MEDS: INSULIN GLARGINE 100 UNIT/ML SQ SCH (20:25)
[2023-11-26] MEDS: VANCOMYCIN 1 GM in NA CHLORIDE 0.9% 250 ML IVPB SCH (23:06)
[2023-11-27 05:19] LABS: Anion Gap 5.7 mEq/L (5.0-15.0); C-Reactive Protein 83.6 mg/L (<3.00); Potassium 3.7 mEq/L (3.5-5.1)
[2023-11-27 05:23] LABS: Absolute Eosinophils 0.3 K/uL (0-0.5); Absolute Lymphocytes (CBC) 3.2 K/uL (0.7-4.9); Absolute Monocytes 1.1 K/uL (0.1-1.3); Absolute Neutrophil 10.4 K/uL (1.8-8.0); Basophils % 0.3 % (0-1.3); Eosinophils % 1.9 % (0-4.4); Hematocrit 28.2 % (36.0-45.0); Hemoglobin 9.6 g/dL (12.0-15.0); Lymphocytes % 21.5 % (15.3-44.8); MCH 29.9 pg (27.0-35.0); MCHC 33.8 g/dL (32.0-36.0); MCV 88.4 fL (80-100); MPV 8.3 fL (7.6-11.3); Monocytes % 7.4 % (3.3-12.3); Neutrophils % 68.9 % (41.7-73.7); Platelets 351 thou/uL (152-406); RBC Red Blood Cell Count 3.19 M/uL (3.86-4.86); Red Cell Distribution Width 12.7 % (12.1-15.2)
[2023-11-27] MEDS: POTASSIUM CL SA 10 MEQ TAB PO ONE (09:11)
--- NOTE | 2023-11-27 14:10 | P.PN ---
Subjective Date of Service: 11/27/23 Chief Complaint: Left fourth digits pain and redness Patient is complaining of pain in the left foot. Status post left fourth toe amputation yesterday. No recorded fever. Physical Examination - Vital Signs Temperature: 98.3 F Blood Pressure: 144/72 Pulse: 68 Respirations: 16 Pulse Ox (%): 95 - Studies Medications List Reviewed: Yes Assessment And Plan - Plan Physical Exam: GEN: Alert, oriented, NAD CV: Regular rate and rhythm, no edema Pulm: Nonlabored respirations on room air, clear bilaterally Integumentary: s/p left 4th toe amputation, surgical site with superficial ischemia, incision wound on the dorsum of the left foot. Musculoskeletal: Old right foot shows metatarsal amputation. Neuro: Normal speech, normal affect vitals reviewed Problem List: Sepsis secondary to acute cellulitis complicated by Osteomyelitis of left 4th toe, now s/p left 4th toe amputation (11/20) Left dorsal foot abscess s/p I&D (11/20) Moderate Peripheral Vascular Disease of LLE IDDM2 with hyperglycemia and Peripheral neuropathy Hypertension Sepsis secondary to acute cellulitis complicated by Osteomyelitis of left 4th toe. s/p left 4th toe amputation (11/20) Left dorsal foot abscess s/p I&D (11/20) Moderate Peripheral Vascular Disease of LLE MRI L foot (11/19): Acute osteomyelitis 4th digit proximal and middle phalanges surrounding the proximal interphalangeal joint. doppler u/s (11/18): moderate peripheral vascular disease of left lower extremity s/p left 4th toe amputation (11/20) by Dr. Dex Palomares consulted and considering vascular intervention sunday. Also found to have small abscess of the left dorsal foot during surgery, now s/p I&D (11/20) ID is following: follow blood cx (11/18): NGTD wound cx (11/20): Streptococcus Agalactiae Grp B On cefepime / vancomycin (11/19-12/30) PICC line placed 11/21 for halfway IV antibiotics. (end date: 12/31/23) CT L foot (11/25): Skin thickening and small air bubbles in the region adjacent to amputation site. No evidence of destruction elsewhere or well-formed fluid collections. ID is treating for possible gangrene Local wound care. continue PT Analgesics as needed. Dr. Kowalski is following. IDDM2 with hyperglycemia and Peripheral neuropathy accu-checks, SSI semglee decreased to 5u at bedtime from 5u BID (11/25) VTE: Lovenox Code: Full Dispo: home with HH. monitoring wound / amputation site
[2023-11-27] MEDS: MELATONIN 5 MG TABLET PO PRN (20:11)
[2023-11-28 05:54] LABS: Absolute Basophils 0.1 K/uL (0-0.5); Absolute Eosinophils 0.4 K/uL (0-0.5); Absolute Monocytes 1.2 K/uL (0.1-1.3); Absolute Neutrophil 9.6 K/uL (1.8-8.0); Basophils % 0.7 % (0-1.3); Eosinophils % 3.1 % (0-4.4); Hematocrit 28.3 % (36.0-45.0); Hemoglobin 9.5 g/dL (12.0-15.0); Lymphocytes % 20.6 % (15.3-44.8); MCH 29.8 pg (27.0-35.0); MCHC 33.6 g/dL (32.0-36.0); MCV 88.7 fL (80-100); MPV 7.4 fL (7.6-11.3); Monocytes % 8.5 % (3.3-12.3); Neutrophils % 67.1 % (41.7-73.7); Nucleated Red Blood Cells % 0.1 % (0-0); Platelets 358 thou/uL (152-406); RBC Red Blood Cell Count 3.19 M/uL (3.86-4.86); Red Cell Distribution Width 12.7 % (12.1-15.2)
[2023-11-28 06:38] LABS: C-Reactive Protein 63.4
--- NOTE | 2023-11-28 09:52 | P.PN ---
Subjective Date of Service: 11/28/23 Chief Complaint: Left fourth digits pain and redness Patient reports pain in his left foot otherwise no other complaint. Status post left fourth toe amputation 11/25 No recorded fever. Physical Examination - Vital Signs Temperature: 98.9 F Blood Pressure: 146/65 Pulse: 53 Respirations: 16 Pulse Ox (%): 97 - Studies Medications List Reviewed: Yes Assessment And Plan - Plan Physical Exam: GEN: Alert, oriented, NAD CV: Regular rate and rhythm, no edema Pulm: Nonlabored respirations on room air, clear bilaterally Integumentary: s/p left 4th toe amputation, surgical site with superficial ischemia, incision wound on the dorsum of the left foot. Musculoskeletal: Old right foot shows metatarsal amputation. Neuro: Normal speech, normal affect vitals reviewed Problem List: Sepsis secondary to acute cellulitis complicated by Osteomyelitis of left 4th toe, now s/p left 4th toe amputation (11/20) Left dorsal foot abscess s/p I&D (11/20) Moderate Peripheral Vascular Disease of LLE IDDM2 with hyperglycemia and Peripheral neuropathy Hypertension Sepsis secondary to acute cellulitis complicated by Osteomyelitis of left 4th toe. s/p left 4th toe amputation (11/20) Left dorsal foot abscess s/p I&D (11/20) Moderate Peripheral Vascular Disease of LLE MRI L foot (11/19): Acute osteomyelitis 4th digit proximal and middle phalanges surrounding the proximal interphalangeal joint. doppler u/s (11/18): moderate peripheral vascular disease of left lower extremity s/p left 4th toe amputation (11/20) by Dr. Dex Palomares consulted. Patient is n.p.o. for angiogram and possible vascular intervention today Patient also found to have small abscess of the left dorsal foot during surgery, now s/p I&D (11/20) ID is following: follow blood cx (11/18): NGTD wound cx (11/20): Streptococcus Agalactiae Grp B On cefepime / vancomycin (11/19-12/30) PICC line placed 11/21 for alf IV antibiotics. (end date: 12/31/23) CT L foot (11/25): Skin thickening and small air bubbles in the region adjacent to amputation site. No evidence of destruction elsewhere or well-formed fluid collections. ID is treating for possible gangrene Local wound care. continue PT Analgesics as needed. Dr. Kowalski is following. IDDM2 with hyperglycemia and Peripheral neuropathy accu-checks, SSI semglee decreased to 5u at bedtime from 5u BID (11/25) Continue current dose Semglee. VTE: Lovenox Code: Full Dispo: home with HH. monitoring wound / amputation site
[2023-11-28] MEDS: NA CHLORIDE 0.9% 500 ML ONE (11:14)
[2023-11-28] MEDS ORDERED: HEPA 1000U/500MLS 2,000 UNIT/1,000 ML BAG IV ONE (11:19)
[2023-11-28] MEDS ORDERED: ATROPINE SULF 1 MG/10 ML SYR IV ONE (11:19)
[2023-11-28] MEDS ORDERED: LIDOCAINE 1% 20 ML MDV ONE (11:19)
[2023-11-28] MEDS ORDERED: FENTANYL CITR 100 MCG/2 ML ONE (11:44)
[2023-11-28] MEDS ORDERED: MIDAZOLAM HCL 2 MG/2 ML INJ ONE (11:44)
--- NOTE | 2023-11-28 11:57 | P.PN ---
Subjective Date of Service: 11/28/23 Chief Complaint: Left fourth digits pain and redness the patient has had amputation of the left foot fourth toe. She complains of constant pain. There is also erythema in the region. She has a significant elevated white count. Arterial ultrasound had demonstrated severe stenosis in the left popliteal and below the knee arteries. Given the presence of a recent amputation as well as severe stenosis in the popliteal artery, the findings are concerning for critical ischemia with stage V disease. I explained this to the patient. Recommended procedure for catheter arteriogram with possible revascularization. procedure and the involved risks, benefits and alternatives explained in detail with the patient.She verbalized understanding. Physical Examination - Vital Signs Temperature: 98.9 F Blood Pressure: 146/65 Pulse: 53 Respirations: 16 Pulse Ox (%): 97 - Physical Exam General: Alert, Oriented x3 HEENT: Atraumatic Neck: JVD not distended, No Thyromegaly Respiratory: Clear to auscultation bilaterally Cardiovascular: No edema, Normal pulses Capillary refill: <2 Seconds Gastrointestinal: Normal bowel sounds Musculoskeletal: No clubbing Neurological: Normal speech, Normal strength at 5/5 x4 extr, Normal affect Other Physical/Emotional Findings: left leg: Femoral pulse palpable. Dorsalis pedis and posterior tibial pulses nonpalpable. Popliteal pulse nonpalpable. - Studies Medications List Reviewed: Yes Assessment And Plan - Current Problems (Diagnosis) (1) PAD (peripheral artery disease) Current Visit: No Status: Acute (2) Hypertension Current Visit: No Status: Chronic Qualifiers: Qualified Code(s): I10 - Essential (primary) hypertension (3) Diabetic ulcer of right foot Current Visit: No Status: Resolved - Plan 1. Patient has severe peripheral artery disease in the left popliteal and below the knee trifurcation arteries 2. Patient has open wound of the left foot fourth toe, elevated white count, likely osteo-myelitis/cellulitis 3. Patient has [place] stage V critical limb ischemia 4. Recommend treatment with left leg catheter arteriogram with possible revascularization.
[2023-11-28] MEDS ORDERED: HYDRALAZINE HCL 20 MG/ML VIAL ONE (12:35)
--- NOTE | 2023-11-28 14:35 | PN ---
Date of Progress Note: 11/28/2023 Reason For Service: Left foot gangrenous toe, with cellulitis of the dorsum of the foot and abscess and necrotic changes. The patient underwent amputation of the toe, wound care of the rest of the foot. Still circulation i n that area is minimal. We recommend this patient to be evaluated by Vascular. May need more than 1 debridement. She may be need an amputation of that toe since the circulation in that region is mini mal. In the meantime, we trying to get rid of infection. It is improving, developed into the dry ga ngrenous changes in the dorsum of the foot. She may need some debridement in the future. MIKE/KASSIDY Voice ID: [id number] Report ID: [id number]
[2023-11-28] MEDS: VANCOMYCIN 1.25 GM in NA CHLORIDE 0.9% 250 ML IVPB SCH (14:51)
[2023-11-28] MEDS ORDERED: VANCOMYCIN 1 GM in NA CHLORIDE 0.9% 250 ML IVPB SCH (17:00)
--- NOTE | 2023-11-28 17:04 | P.OP ---
Date of Service: 11/28/23 Findings and Operative Technique Procedures performed 1. Right common femoral artery puncture under ultrasound guidance with placement of sheath 2. Placement of catheter into the distal aorta with pelvic angiogram and distal aortogram 3. Left superficial femoral artery catheterization with left leg arteriogram with runoff to the foot 4. Left superficial femoral artery angioplasty and stenting 5. Left popliteal artery occluded balloon angioplasty 6. Hemostasis with direct manual compression History The patient is a 78-year-old female with critical limb ischemia. The patient has an open wound of the left foot fourth toe. She has significant ischemic rest pain in the left foot. Arterial ultrasound demonstrates severe stenoses in the left popliteal artery as well as in the trifurcation arteries with severe stenoses in the tibial arteries. Given the presence of Trousdale stage V critical limb ischemia with tissue loss, patient presents for diagnostic catheter arteriogram with possible revascularization. Dosimetry Sedation: Provided by the performing physician Drugs administered for sedation: 0.5 mg Versed IV, 25 mcg fentanyl IV Sedation time (minutes): 35 The performing physician was directly supervising a trained, independent observer, who was present throughout moderate sedation, and providing constant monitoring of the patient throughout moderate sedation, including monitoring the patient's level of consciousness as well as physiological status, including monitoring measurements of blood pressure, pulse oximetry, heart rhythm, and patient responsiveness. This observer had no other duties other than monitoring the patient. Contrast Volume: 350 Omnipaque 55 ml Estimated blood loss: Less than 10ml Procedure PROCEDURE: Lower extremity angiography and interventions Attending physician: Maria De Jesus Palomares MD Procedure Date (/dd/yyyy): 11/28/2023 Pre-procedure diagnosis: Severe peripheral artery disease with ischemic rest pain, critical limb threatening ischemia with left foot fourth toe wound Post-procedure diagnosis: Severe peripheral artery disease with ischemic rest pain, critical limb threatening ischemia with left foot fourth toe wound Indication: Critical limb ischemia Trousdale stage 5 Complications: No immediate complications. PROCEDURE SUMMARY: - Arterial access Guidance: with ultrasound guidance - Unilateral: Unilateral leg lower extremity angiography as described below - Arterial interventions as described below PROCEDURE DETAILS: Pre-procedure Consent: Informed consent for the procedure including risks, benefits and alternatives was obtained and time-out was performed prior to the procedure. Preparation: The site was prepared and draped using maximal sterile barrier technique including cutaneous antisepsis. Access Local anesthesia was administered. Vascular access was obtained Access guidance: Ultrasound access with permanent image stored. Real-time high resolution ultrasound was used with color, duplex and spectral techniques to evaluate the common femoral, dorsalis pedis and posterior tibial arteries. Arteries were used to assess for patency and suitability for puncture. Vascular puncture was performed under real time ultrasound visualization. Sheath size (Korean): 6 Access location: Right common femoral artery Access direction: Retrograde Access technique: Micropuncture set with 21 gauge needle Aortography Indication for aortography: Diagnostic - no prior angiographic study Vessel catheterized: Abdominal below the level of the renal arteries Findings: Distal abdominal aorta is patent. There is no evidence for aortic stenosis. Pelvic angiography demonstrates patent right and left common iliac arteries as well as right and left external iliac arteries. Left lower extremity angiography and interventions Lower extremity arterial system was catheterized using a combination of Terumo 035 Glidewire advantage as well as Omni flush catheter Indication for angiography: Diagnostic - no prior angiographic study. Decisions for intervention were based on the results of the diagnostic angiogram performed Vessel catheterized: Left superficial femoral artery Findings: Left leg angiogram demonstrates 70% stenosis in the proximal superficial femoral artery. The stenosis from eccentric calcified plaque. The mid superficial femoral artery is patent. There is focal 80% stenosis in the proximal popliteal artery from eccentric calcified plaque. Below the knee, there is complete 100% occlusion of the proximal anterior tibial artery and the posterior tibial artery. The peroneal artery is the only supply flow to the calf and foot. ~Lesion 1 ~Artery segment of target lesion: Left superficial femoral and popliteal artery ~Lesion length (cm): 70% stenosis at the upper thigh spanning 2 cm; 80% stenosis in the proximal popliteal artery spanning 2 cm ~Technical details: The severe stenoses in the left proximal superficial femoral artery and proximal popliteal artery were crossed with a Glidewire. After the stenoses were crossed, balloon angioplasty was performed. A DDN INPact Admiral 5 mm x 250 mm drug-coated balloon catheter was used for balloon angioplasty of these lesions with inflation to 7 xiao to 2 minutes. Arteriogram demonstrated good results in the popliteal artery stenosis. However, there was still significant, 50-70% residual stenosis present in the proximal superficial femoral artery and decision was made to place a stent. An [employer] Pro 7 mm x 40 mm stent was deployed in the proximal superficial femoral artery, with good results and no residual stenosis. ~Treatment successful: Yes ~~Angioplasty ~~Angioplasty balloon type: Drug-coated balloon ~~Angioplasty balloon: DDN In.Pact Admiral ~~Lot number: [id number] ~~Balloon length (mm): 250 ~~Balloon diameter (mm): 5 ~~Balloon angioplasty inflation xiao: 7 ~~Balloon angioplasty inflation time: 2 minutes ~~Stent ~~Stent type: Self-expanding stent ~~Stent: Musistic absolute Pro ~~Lot number: [id number] ~~Stent length (mm): 40 ~~Stent diameter (mm): 7 ~Angiography ~Post-intervention angiography: Post intervention angiogram demonstrates good results without any residual stenosis. There is also significantly improved circulation to the calf and foot following intervention. Hemostasis: Achieved with direct manual compression without incident. Impression 1. Severe left proximal superficial femoral artery stenosis treated with angioplasty and stenting with good results 2. Severe left proximal popliteal artery stenosis treated with drug-coated balloon angioplasty with good results 3. Complete 100% occlusion of the left anterior tibial and posterior tibial arteries
--- NOTE | 2023-11-28 21:29 | PN ---
Subjective: Patient is going for CT scan of her foot. Denies any other problems. Objective: Vital Signs: Reviewed. Lungs: Clear to auscultation. Heart: S1, S2. Regular. Abdomen: Soft, nontender. Bowel sounds present. Extremity: No edema. Wound noted. Laboratory Data: Reviewed. Assessment And Plan: Left foot cellulitis and abscess, status post amputation of fourth toe for oste omyelitis, continued to show gangrenous changes. We will continue antibiotic and supportive care. F candace patient as needed. NF/MODL Voice ID: [id number] Report ID: [id number]
[2023-11-29 05:10] LABS: Absolute Basophils 0.1 K/uL (0-0.5); Absolute Eosinophils 0.5 K/uL (0-0.5); Absolute Lymphocytes (CBC) 2.9 K/uL (0.7-4.9); Absolute Monocytes 1.2 K/uL (0.1-1.3); Absolute Neutrophil 10.1 K/uL (1.8-8.0); Basophils % 0.5 % (0-1.3); Eosinophils % 3.1 % (0-4.4); Lymphocytes % 19.5 % (15.3-44.8); MCH 29.3 pg (27.0-35.0); MCHC 33.2 g/dL (32.0-36.0); MCV 88.3 fL (80-100); MPV 7.7 fL (7.6-11.3); Monocytes % 8.1 % (3.3-12.3); Neutrophils % 68.8 % (41.7-73.7); Platelets 421 thou/uL (152-406); Red Cell Distribution Width 12.9 % (12.1-15.2)
[2023-11-29 05:14] LABS: Anion Gap 8.4 mEq/L (5.0-15.0); Potassium 3.4 mEq/L (3.5-5.1)
[2023-11-29] MEDS: POTASSIUM CL SA 10 MEQ TAB PO ONE (09:28)
--- NOTE | 2023-11-29 13:12 | P.PN ---
Subjective Date of Service: 11/29/23 Chief Complaint: Left fourth digits pain and redness Patient has no new complaint. Status post left lower extremity angiogram 11/27 No recorded fever. She is tolerating diet. Physical Examination - Vital Signs Temperature: 99.1 F Blood Pressure: 150/59 Pulse: 82 Respirations: 16 Pulse Ox (%): 100 - Physical Exam Other Physical/Emotional Findings: left leg: Femoral pulse palpable. Dorsalis pedis and posterior tibial pulses nonpalpable. Popliteal pulse nonpalpable. - Studies Medications List Reviewed: Yes Assessment And Plan - Plan Physical Exam: GEN: Alert, oriented, NAD CV: Regular rate and rhythm, no edema Pulm: Nonlabored respirations on room air, clear bilaterally Integumentary: s/p left 4th toe amputation, surgical site with superficial ischemia, incision wound on the dorsum of the left foot. Musculoskeletal: Old right foot shows metatarsal amputation. Neuro: Normal speech, normal affect vitals reviewed Problem List: Sepsis secondary to acute cellulitis complicated by Osteomyelitis of left 4th toe, now s/p left 4th toe amputation (11/20) Left dorsal foot abscess s/p I&D (11/20) Moderate Peripheral Vascular Disease of LLE IDDM2 with hyperglycemia and Peripheral neuropathy Hypertension Sepsis secondary to acute cellulitis complicated by Osteomyelitis of left 4th toe. s/p left 4th toe amputation (11/20) Left dorsal foot abscess s/p I&D (11/20) Moderate Peripheral Vascular Disease of LLE MRI L foot (11/19): Acute osteomyelitis 4th digit proximal and middle phalanges surrounding the proximal interphalangeal joint. doppler u/s (11/18): moderate peripheral vascular disease of left lower extremity s/p left 4th toe amputation (11/20) by Dr. Dex Palomares consulted. Left lower extremity angiogram done 11/27, left superficial femoral artery stented, balloon angioplasty of popliteal artery done. Patient also found to have small abscess of the left dorsal foot during surgery, now s/p I&D (11/20) ID is following: follow blood cx (11/18): NGTD wound cx (11/20): Streptococcus Agalactiae Grp B On cefepime / vancomycin (11/19-12/30) PICC line placed 11/21 for fdc IV antibiotics. (end date: 12/31/23) CT L foot (11/25): Skin thickening and small air bubbles in the region adjacent to amputation site. No evidence of destruction elsewhere or well-formed fluid collections. ID is treating for possible gangrene Local wound care. continue PT Analgesics as needed. Dr. Kowalski is considering repeat debridement. Dr. Kowalski to follow. IDDM2 with hyperglycemia and Peripheral neuropathy accu-checks, SSI semglee decreased to 5u at bedtime from 5u BID (11/25) Continue current dose Semglee. VTE: Lovenox Code: Full Dispo: home with HH. monitoring wound / amputation site
[2023-11-30 06:47] LABS: Absolute Basophils 0.1 K/uL (0-0.5); Absolute Eosinophils 0.4 K/uL (0-0.5); Absolute Lymphocytes (CBC) 3.6 K/uL (0.7-4.9); Absolute Monocytes 1.2 K/uL (0.1-1.3); Basophils % 0.7 % (0-1.3); Eosinophils % 2.4 % (0-4.4); Hematocrit 28.9 % (36.0-45.0); Hemoglobin 9.7 g/dL (12.0-15.0); Lymphocytes % 23.5 % (15.3-44.8); MCH 29.6 pg (27.0-35.0); MCHC 33.5 g/dL (32.0-36.0); MCV 88.4 fL (80-100); MPV 7.8 fL (7.6-11.3); Monocytes % 7.6 % (3.3-12.3); Neutrophils % 65.8 % (41.7-73.7); Platelets 407 thou/uL (152-406); RBC Red Blood Cell Count 3.27 M/uL (3.86-4.86); Red Cell Distribution Width 12.7 % (12.1-15.2)
[2023-11-30 07:00] LABS: Anion Gap 7.6 mEq/L (5.0-15.0); Potassium 3.6 mEq/L (3.5-5.1)
[2023-11-30] MEDS: POTASSIUM CL SA 10 MEQ TAB PO ONE (09:29)
[2023-11-30] MEDS: CLOPIDOGREL 75 MG TABLET PO SCH (10:23)
--- NOTE | 2023-11-30 11:59 | P.PN ---
Subjective Date of Service: 11/30/23 Chief Complaint: Left fourth digits pain and redness No new complaints. Status post left lower extremity angiogram 11/27 No recorded fever. Physical Examination - Vital Signs Temperature: 97.7 F Blood Pressure: 146/88 Pulse: 75 Respirations: 13 Pulse Ox (%): 96 - Physical Exam Other Physical/Emotional Findings: left leg: Femoral pulse palpable. Dorsalis pedis and posterior tibial pulses nonpalpable. Popliteal pulse nonpalpable. - Studies Medications List Reviewed: Yes Assessment And Plan - Plan Physical Exam: GEN: Alert, oriented, NAD CV: Regular rate and rhythm, no edema Pulm: Nonlabored respirations on room air, clear bilaterally Integumentary: s/p left 4th toe amputation, surgical site with superficial wedge shaped gangrenous area, incision wound on the dorsum of the left foot. 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 Neuro: Normal speech, normal affect vitals reviewed Problem List: Sepsis secondary to acute cellulitis complicated by Osteomyelitis of left 4th toe, now s/p left 4th toe amputation (11/20) Left dorsal foot abscess s/p I&D (11/20) Moderate Peripheral Vascular Disease of LLE IDDM2 with hyperglycemia and Peripheral neuropathy Hypertension Sepsis secondary to acute cellulitis complicated by Osteomyelitis of left 4th toe. s/p left 4th toe amputation (11/20) Left dorsal foot abscess s/p I&D (11/20) Moderate Peripheral Vascular Disease of LLE MRI L foot (11/19): Acute osteomyelitis 4th digit proximal and middle phalanges surrounding the proximal interphalangeal joint. doppler u/s (11/18): moderate peripheral vascular disease of left lower extremity s/p left 4th toe amputation (11/20) by Dr. Dex Palomares consulted. Left lower extremity angiogram done 11/27, left superficial femoral artery stented, balloon angioplasty of popliteal artery done. Continue DAPT. Follow-up with Dr. Flower as outpatient in the office within 1 week. Patient also found to have small abscess of the left dorsal foot during surgery, now s/p I&D (11/20) ID is following: follow blood cx (11/18): NGTD wound cx (11/20): Streptococcus Agalactiae Grp B cefepime / vancomycin (11/19-12/30) transition to IV Rocephin PICC line placed 11/21 for senior care IV Rocephin. (end date: 12/31/23) CT L foot (11/25): Skin thickening and small air bubbles in the region adjacent to amputation site. No evidence of destruction elsewhere or well-formed fluid collections. Local wound care. PT Analgesics as needed. Dr. Kowalski is considering repeat debridement. IDDM2 with Peripheral neuropathy Hyperglycemia improved on the current Semglee dose accu-checks, SSI Continue current dose Semglee. VTE: Lovenox Code: Full Dispo: home with HH
[2023-11-30] MEDS: CEFTRIAXONE 1,000 MG in NA CHLORIDE 0.9% 50 ML IVPB SCH (16:39)
[2023-12-01 04:25] LABS: Absolute Basophils 0.1 K/uL (0-0.5); Absolute Eosinophils 0.3 K/uL (0-0.5); Absolute Lymphocytes (CBC) 4.2 K/uL (0.7-4.9); Absolute Monocytes 1.2 K/uL (0.1-1.3); Absolute Neutrophil 10.5 K/uL (1.8-8.0); Basophils % 0.4 % (0-1.3); Eosinophils % 1.9 % (0-4.4); Hematocrit 28.6 % (36.0-45.0); Lymphocytes % 25.7 % (15.3-44.8); MCH 30.5 pg (27.0-35.0); MCHC 34.8 g/dL (32.0-36.0); MCV 87.6 fL (80-100); MPV 7.2 fL (7.6-11.3); Monocytes % 7.5 % (3.3-12.3); Neutrophils % 64.5 % (41.7-73.7); Platelets 386 thou/uL (152-406); RBC Red Blood Cell Count 3.26 M/uL (3.86-4.86); Red Cell Distribution Width 12.5 % (12.1-15.2)
[2023-12-01] MEDS: POTASSIUM CL SA 10 MEQ TAB PO ONE (08:26)
--- NOTE | 2023-12-01 11:56 | P.PN ---
Subjective Date of Service: 12/01/23 Chief Complaint: Left fourth digits pain and redness Patient has no new complaint except pain in the left foot with ambulation Status post left lower extremity angiogram 11/27 No recorded fever. She ambulated with therapy using a walker. Physical Examination - Vital Signs Temperature: 97.8 F Blood Pressure: 146/62 Pulse: 71 Respirations: 16 Pulse Ox (%): 97 - Physical Exam Other Physical/Emotional Findings: left leg: Femoral pulse palpable. Dorsalis pedis and posterior tibial pulses nonpalpable. Popliteal pulse nonpalpable. - Studies Medications List Reviewed: Yes Assessment And Plan - Plan Physical Exam: GEN: Alert, oriented, NAD CV: Regular rate and rhythm, no edema Pulm: Nonlabored respirations on room air, clear bilaterally Integumentary: s/p left 4th toe amputation, surgical site with superficial wedge shaped gangrenous area, incision wound on the dorsum of the left foot. 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 Neuro: Normal speech, normal affect vitals reviewed Problem List: Sepsis secondary to acute cellulitis complicated by Osteomyelitis of left 4th toe, now s/p left 4th toe amputation (11/20) Left dorsal foot abscess s/p I&D (11/20) Moderate Peripheral Vascular Disease of LLE IDDM2 with hyperglycemia and Peripheral neuropathy Hypertension Sepsis secondary to acute cellulitis complicated by Osteomyelitis of left 4th toe. s/p left 4th toe amputation (11/20) Left dorsal foot abscess s/p I&D (11/20) Moderate Peripheral Vascular Disease of LLE MRI L foot (11/19): Acute osteomyelitis 4th digit proximal and middle phalanges surrounding the proximal interphalangeal joint. doppler u/s (11/18): moderate peripheral vascular disease of left lower extremity s/p left 4th toe amputation (11/20) by Dr. Dex Palomares consulted. Left lower extremity angiogram done 11/27, left superficial femoral artery stented, balloon angioplasty of popliteal artery done. Continue DAPT. Follow-up with Dr. Flower as outpatient in the office within 1 week. Patient also found to have small abscess of the left dorsal foot during surgery, now s/p I&D (11/20) ID is following: follow blood cx (11/18): NGTD wound cx (11/20): Streptococcus Agalactiae Grp B cefepime / vancomycin (11/19-12/30) transition to IV Rocephin PICC line placed 11/21 for snf IV Rocephin. (end date: 12/31/23) CT L foot (11/25): Skin thickening and small air bubbles in the region adjacent to amputation site. No evidence of destruction elsewhere or well-formed fluid collections. Local wound care. Patient is ambulating with therapy. Analgesics as needed. Dr. Kowalski is considering repeat debridement. IDDM2 with Peripheral neuropathy Hyperglycemia improved on the current Semglee dose accu-checks, SSI Continue current dose Semglee. VTE: Lovenox Code: Full Dispo: home with HH for IV antibiotics and wound care
[2023-12-02] MEDS: KETOROLAC 30 MG/ML INJ IV ONE (02:00)
[2023-12-02 05:55] LABS: Absolute Basophils 0.1 K/uL (0-0.5); Absolute Eosinophils 0.3 K/uL (0-0.5); Absolute Lymphocytes (CBC) 3.6 K/uL (0.7-4.9); Absolute Monocytes 0.9 K/uL (0.1-1.3); Absolute Neutrophil 9.3 K/uL (1.8-8.0); Basophils % 0.5 % (0-1.3); Eosinophils % 1.9 % (0-4.4); Hematocrit 28.6 % (36.0-45.0); Hemoglobin 9.6 g/dL (12.0-15.0); Lymphocytes % 25.6 % (15.3-44.8); MCH 29.6 pg (27.0-35.0); MCHC 33.4 g/dL (32.0-36.0); MCV 88.5 fL (80-100); MPV 7.3 fL (7.6-11.3); Monocytes % 6.5 % (3.3-12.3); Neutrophils % 65.5 % (41.7-73.7); Platelets 430 thou/uL (152-406); RBC Red Blood Cell Count 3.23 M/uL (3.86-4.86); Red Cell Distribution Width 12.6 % (12.1-15.2)
[2023-12-02] MEDS: CEFTRIAXONE 1000 MG/VIAL ONE (08:38)
--- NOTE | 2023-12-02 11:32 | P.PN ---
Subjective Date of Service: 12/02/23 Chief Complaint: Left fourth digits pain and redness Patient states she feels much better today. She states the pain in the left leg is much better. No recorded fever. Physical Examination - Vital Signs Temperature: 97.0 F Blood Pressure: 147/65 Pulse: 76 Respirations: 15 Pulse Ox (%): 94 - Physical Exam Other Physical/Emotional Findings: left leg: Femoral pulse palpable. Dorsalis pedis and posterior tibial pulses nonpalpable. Popliteal pulse nonpalpable. - Studies Medications List Reviewed: Yes Assessment And Plan - Plan Physical Exam: GEN: Alert, oriented, NAD CV: Regular rate and rhythm, no edema Pulm: Nonlabored respirations on room air, clear bilaterally Integumentary: s/p left 4th toe amputation, surgical site with superficial wedge shaped gangrenous area, incision wound on the dorsum of the left foot. 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 Neuro: Normal speech, normal affect vitals reviewed Problem List: Sepsis secondary to acute cellulitis complicated by Osteomyelitis of left 4th toe, now s/p left 4th toe amputation (11/20) Left dorsal foot abscess s/p I&D (11/20) Moderate Peripheral Vascular Disease of LLE IDDM2 with hyperglycemia and Peripheral neuropathy Hypertension Sepsis secondary to acute cellulitis complicated by Osteomyelitis of left 4th toe. s/p left 4th toe amputation (11/20) Left dorsal foot abscess s/p I&D (11/20) Moderate Peripheral Vascular Disease of LLE MRI L foot (11/19): Acute osteomyelitis 4th digit proximal and middle phalanges surrounding the proximal interphalangeal joint. doppler u/s (11/18): moderate peripheral vascular disease of left lower extremity s/p left 4th toe amputation (11/20) by Dr. Dex Palomares consulted. Left lower extremity angiogram done 11/27, left superficial femoral artery stented, balloon angioplasty of popliteal artery done. Continue DAPT. Follow-up with Dr. Flower as outpatient in the office within 1 week. Patient also found to have small abscess of the left dorsal foot during surgery, now s/p I&D (11/20) ID is following: follow blood cx (11/18): NGTD wound cx (11/20): Streptococcus Agalactiae Grp B cefepime / vancomycin (11/19-12/30) transition to IV Rocephin PICC line placed 11/21 for shelter IV Rocephin. (end date: 12/31/23) CT L foot (11/25): Skin thickening and small air bubbles in the region adjacent to amputation site. No evidence of destruction elsewhere or well-formed fluid collections. Local wound care. Patient is ambulating with therapy. Analgesics as needed. Dr. Kowalski is considering repeat debridement. Outpatient IV antibiotics with home health is being arranged by social service. IDDM2 with Peripheral neuropathy Hyperglycemia improved on the current Semglee dose accu-checks, SSI Continue current dose Semglee. VTE: Lovenox Code: Full Dispo: home with HH for IV antibiotics and wound care
[2023-12-02] MEDS: POTASSIUM 25 MEQ EFFERV TAB PO ONE (20:11)
[2023-12-03 04:27] LABS: Anion Gap 6.8 mEq/L (5.0-15.0); Potassium 3.8 mEq/L (3.5-5.1)
[2023-12-03 04:36] LABS: Absolute Basophils 0.1 K/uL (0-0.5); Absolute Eosinophils 0.3 K/uL (0-0.5); Absolute Lymphocytes (CBC) 3.4 K/uL (0.7-4.9); Absolute Neutrophil 9.4 K/uL (1.8-8.0); Basophils % 0.4 % (0-1.3); Eosinophils % 2.1 % (0-4.4); Hemoglobin 9.8 g/dL (12.0-15.0); MCH 29.8 pg (27.0-35.0); MCHC 33.9 g/dL (32.0-36.0); MCV 87.8 fL (80-100); MPV 7.2 fL (7.6-11.3); Monocytes % 7.1 % (3.3-12.3); Neutrophils % 66.4 % (41.7-73.7); Nucleated Red Blood Cells % 0.1 % (0-0); Platelets 452 thou/uL (152-406); RBC Red Blood Cell Count 3.31 M/uL (3.86-4.86); Red Cell Distribution Width 12.7 % (12.1-15.2)
[2023-12-03] MEDS: POTASSIUM CL SA 10 MEQ TAB PO ONE (08:00)
[2023-12-03] MEDS: NA CHLORIDE 0.9% 1,000 ML ONE (08:30)
[2023-12-03] MEDS ORDERED: LIDOCAINE 1% MPF 5 ML VIAL ONE (08:47)
[2023-12-03] MEDS ORDERED: propofoL 200 MG/20 ML VIAL IV ONE (08:48)
[2023-12-03] MEDS: SILVER SULFADIAZINE 1% 25 GM TOP ONE (09:46)
[2023-12-03] MEDS ORDERED: KETOROLAC 30 MG/ML INJ ONE (09:51)
--- NOTE | 2023-12-03 10:06 | P.BOP ---
Preoperative diagnosis: cellulitis left foot with osteomyelitis left 4th toe, gangrene Postoperative diagnosis: same Primary procedure: 1. Left foot debridement down to bone Secondary procedure: 2. bone biopsy Estimated blood loss: 1cc Specimen: 4th metatarsal head osteomyelitis broken bone Findings: left foot gangrenous changes with destructive osteomyelitis Anesthesia: General Complications: None Drain(s): Other (silvadene wet to dry packing) Transferred to: Recovery Room Condition: Good
--- NOTE | 2023-12-03 12:05 | PN ---
Date of Progress Note: 12/03/2023 Ms. Stacy is a 78-year-old patient with gangrenous changes of the toe that required amputation and also abscess and gangrenous changes on the foot. The patient recently had revascularization of the a constantine and the area delineated. We have an area of necrotic tissue present and she will be brought toda for debridement. The benefits, alternatives, and risks of excision and debridement of the left cely t necrotic ulcer fully explained, which include, but not limited to, infection, bleeding, damage to a djacent structures, anesthesia complication, nonhealing wound, [place], and even . She also understa nds she might need more than one surgical intervention. This may not relieve any symptoms. She unde rstands the importance of diabetes control, circulation control, follow up with the vascular surgeon, nutrition, offloading, and following up in office or [facility]. Patient will be taken to the OR. MIKE/KASSIDY Voice ID: [id number] Report ID: [id number]
--- NOTE | 2023-12-03 12:26 | OP ---
Date of Procedure: 12/03/2023 Surgeon: Jimbo Kowalski MD Preoperative Diagnoses: Left foot gangrenous changes, peripheral vascular disease, osteomyelitis, hi story of amputation of left gangrenous toe, with the I and D of cellulitis of the foot and now also h as necrotic tissue of the foot area, status post revascularization. Postoperative Diagnoses: Left foot gangrenous changes, peripheral vascular disease, osteomyelitis, h istory of amputation of left gangrenous toe, with the I and D of cellulitis of the foot and now also has necrotic tissue of the foot area, status post revascularization. Procedures: 1.Left foot debridement down to bone. 2.Bone biopsy. Estimated Blood Loss: Less than 1 cc. Specimen: Metatarsal head osteomyelitis broken bone removed. Findings: Left foot gangrenous changes with destructive osteomyelitis. Anesthesia: General plus local. Complications: None. Packing: Silvadene wet-to-dry. Indications: This is a case of a 78-year-old patient with severe peripheral vascular disease, found to us with gangrenous changes of the left foot infected, have to be removed and the area allowed to d elineate. Also, we asked for emergent revascularization of that area. Dr. Flower was kind enough to r evascularize her also with stent. When the area delineated, we explained to her the need for debride ment of this necrotic tissue. She does not want an amputation of the foot at this moment, although w blanca discussed that benefits, alternatives, and risks. So, she allowed me to clean the area. Last time when they removed the toe, we saw some disease and osteomyelitis. She has been treated for that, an d she will need that buttermaker continuous churn. She has been receiving also wound care. The benefits, alternatives, and risks of debridement of the left foot area fully explained, which include, but not limited to, i nfection, bleeding, damage to adjacent structures, anesthesia complication, nonhealing wound, [place], and even . She also understands this may not relieve any symptoms. She might need more than one s urgical intervention. She also understands she has osteomyelitis in that area with destruction of th e bone. So, we might have to do a biopsy, even remove part of the distal tip of that metatarsal suman on in order to increase the chance of healing. She understood, signed a consent. Description Of Procedure: Patient was brought to the operating room, placed in supine position. Sarah Beth stevenhesia was done without complication. Left foot was prepped and draped in a sterile fashion. Local anesthesia was applied after time-out, and then after that, we proceeded to remove the necrotic tiss ue present. Still bleeding is minimal to that region. It showed some severe peripheral vascular dis ease. I am not sure that foot can survive, but we have no consent for removal at this moment. So, w blanca saw the metatarsal head and part of the metatarsal bone involving this destructive osteomyelitis wi th pieces of it. We removed all those pieces out at least to retract behind the skin and subcutaneou s tissue. The bone was sent for biopsy. Area was irrigated. Hemostasis was obtained. Necrotic tis sonia was removed and then after that, we packed the area with wet-to-dry Silvadene. Patient tolerated the procedure well. Sponge counts and instrument counts were correct. Patient sent to recovery in stable condition. We will continue wound care, osteomyelitis treatment. MIKE/KASSIDY Voice ID: [id number] Report ID: [id number]
--- NOTE | 2023-12-03 12:49 | P.PN ---
Subjective Date of Service: 12/03/23 Chief Complaint: Left fourth digits pain and redness Patient has no new complaint. Status post repeat wound debridement today by Dr. Kowalski Physical Examination - Vital Signs Temperature: 96.9 F Blood Pressure: 158/73 Pulse: 61 Respirations: 15 Pulse Ox (%): 96 - Physical Exam Other Physical/Emotional Findings: left leg: Femoral pulse palpable. Dorsalis pedis and posterior tibial pulses nonpalpable. Popliteal pulse nonpalpable. 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 Neuro: Normal speech, normal affect vitals reviewed Problem List: Sepsis secondary to acute cellulitis complicated by Osteomyelitis of left 4th toe, now s/p left 4th toe amputation (11/20) Left dorsal foot abscess s/p I&D (11/20) Moderate Peripheral Vascular Disease of LLE IDDM2 with hyperglycemia and Peripheral neuropathy Hypertension Sepsis secondary to acute cellulitis complicated by Osteomyelitis of left 4th toe. s/p left 4th toe amputation (11/20) Left dorsal foot abscess s/p I&D (11/20) Moderate Peripheral Vascular Disease of LLE MRI L foot (11/19): Acute osteomyelitis 4th digit proximal and middle phalanges surrounding the proximal interphalangeal joint. doppler u/s (11/18): moderate peripheral vascular disease of left lower extremity s/p left 4th toe amputation (11/20) by Dr. Dex Palomares consulted. Left lower extremity angiogram done 11/27, left superficial femoral artery stented, balloon angioplasty of popliteal artery done. Continue DAPT. Follow-up with Dr. Flower as outpatient in the office within 1 week. Patient also found to have small abscess of the left dorsal foot during surgery, now s/p I&D (11/20) ID is following: follow blood cx (11/18): NGTD wound cx (11/20): Streptococcus Agalactiae Grp B cefepime / vancomycin (11/19-12/30) transition to IV Rocephin PICC line placed 11/21 for [facility] IV Rocephin. (end date: 12/31/23) CT L foot (11/25): Skin thickening and small air bubbles in the region adjacent to amputation site. Repeat debridement done today, gangrenous tissue was debrided to the bone according to Dr. Kowalski. Local wound care. Patient is ambulating with therapy. Analgesics as needed. Outpatient IV antibiotics with home health is being arranged by social service. IDDM2 with Peripheral neuropathy Hyperglycemia improved on the current Semglee dose accu-checks, SSI Continue current dose Semglee. VTE: Lovenox Code: Full Dispo: home with HH for IV antibiotics and wound care
[2023-12-03] MEDS: ACETAMINOPHEN 500 MG TAB PO PRN (23:44)
[2023-12-04 05:47] LABS: Absolute Basophils 0.1 K/uL (0-0.5); Absolute Eosinophils 0.3 K/uL (0-0.5); Absolute Lymphocytes (CBC) 2.9 K/uL (0.7-4.9); Absolute Monocytes 0.8 K/uL (0.1-1.3); Absolute Neutrophil 10.2 K/uL (1.8-8.0); Basophils % 0.5 % (0-1.3); Eosinophils % 2.1 % (0-4.4); Hematocrit 28.4 % (36.0-45.0); Hemoglobin 9.6 g/dL (12.0-15.0); MCH 29.8 pg (27.0-35.0); MCHC 33.9 g/dL (32.0-36.0); MCV 87.8 fL (80-100); MPV 7.6 fL (7.6-11.3); Monocytes % 5.9 % (3.3-12.3); Neutrophils % 71.5 % (41.7-73.7); Nucleated Red Blood Cells % 0.1 % (0-0); Platelets 445 thou/uL (152-406); RBC Red Blood Cell Count 3.24 M/uL (3.86-4.86); Red Cell Distribution Width 12.6 % (12.1-15.2)
[2023-12-04 06:10] LABS: Anion Gap 6.7 mEq/L (5.0-15.0); Potassium 3.7 mEq/L (3.5-5.1)
[2023-12-04] MEDS: POTASSIUM CL SA 10 MEQ TAB PO ONE (09:18)
[2023-12-04 10:27] VITALS: O2SAT 99
--- NOTE | 2023-12-04 13:23 | P.PN ---
Date of Service: 12/04/23 Subjective: ROS: 10 point ROS as noted above, otherwise negative Physical Exam: GEN: Alert, oriented, NAD HEENT: Normal conjunctiva, sclera anicteric CV: Regular rate and rhythm, no edema Pulm: Nonlabored respirations on room air, clear bilaterally Integumentary: s/p left 4th toe amputation, Dressing in place c/d/i Neuro: Normal speech, normal affect vitals reviewed Problem List: Sepsis secondary to acute cellulitis complicated by Osteomyelitis of left 4th toe, now s/p left 4th toe amputation (11/20) Left dorsal foot abscess s/p I&D (11/20) Moderate Peripheral Vascular Disease of LLE IDDM2 with hyperglycemia and Peripheral neuropathy Hypertension Sepsis secondary to acute cellulitis complicated by Osteomyelitis of left 4th toe, now s/p left 4th toe amputation (11/20) Left dorsal foot abscess s/p I&D (11/20) Moderate Peripheral Vascular Disease of LLE MRI L foot (11/19): Acute osteomyelitis 4th digit proximal and middle phalanges surrounding the proximal interphalangeal joint. doppler u/s (11/18): moderate peripheral vascular disease of left lower extremity Dr. Kowalski, general surgeon consulted s/p left 4th toe amputation (11/20) also found to have small abscess of the left dorsal foot during surgery, now s/p I&D (11/20) s/p I&D of left foot (12/02). Debridement down to the bone per Dex Chavarria s/p Left lower extremity angiogram with Dr. Palomares (11/27) Found to have severe left proximal superficial femoral artery stenosis (~70%). s/p angioplasty and stenting Severe left proximal popliteal artery stenosis (~80%). s/p balloon angioplasty Complete 100% occlusion of the left anterior tibial and posterior tibial arteries Follow up with Dr. Palomares as outpatient in 1 week for continued management. Continue DAPT. ID consulted follow blood cx (11/18): NGTD wound cx (11/20): Streptococcus Agalactiae Grp B cefepime / vancomycin (11/19-11/29) transitioned to rocephin (11/29-12/30) PICC line placed 11/21 for [facility] IV antibiotics. (end date: 12/31/23) CT L foot (6/10): Skin thickening and small air bubbles in the region adjacent to amputation site. No evidence of destruction elsewhere or well-formed fluid collections. continue PT IDDM2 with hyperglycemia and Peripheral neuropathy accu-checks, SSI VTE: Lovenox Code: Full Dispo: home with HH Pending IV antibiotics setup
[2023-12-04 17:02] VITALS: BP 116/65; TEMP 97.9
--- NOTE | 2023-12-05 06:29 | P.DS ---
Admission Date: 11/19/23 Discharge Date: 12/04/23 Disposition: DC HOME/HOME HEALTH CARE Reason for Admission: Left fourth digits pain and redness Consultations: General surgery - Dr. Kowalski ID - Dr. Ash Vascular - Dr. Palomares Brief History of Present Illness: 78yo F, PMH: hypertension diabetes mellitus, PVD, multiple right foot toes amputation Patient presents with left fourth digit pain and redness. Onset since the last 3 days. She was seen in the emergency room 2 days ago and sent home on oral clindamycin. She states symptoms of pain and redness has worsened since 10 she presented again on follow-up today. On arrival in the ED she was noted with elevated lactate of 2.6, x-ray of the foot shows some mild radiolucent areas. CRP elevated at 130, WBC elevated at 14,000 with left shift, ultrasound of the lower extremity shows moderate PVD. Patient is being admitted for failure of oral antibiotics with persistent left foot cellulitis. Hospital Course: Problem List: Sepsis secondary to acute cellulitis complicated by Osteomyelitis of left 4th toe, now s/p left 4th toe amputation (11/20) Left dorsal foot abscess s/p I&D (11/20) Moderate Peripheral Vascular Disease of LLE IDDM2 with hyperglycemia and Peripheral neuropathy Hypertension Physician discharge instructions: Patient presented with worsening left foot pain/redness and was found to have acute cellulitis complicated by osteomyelitis of left 4th toe and small left dorsal foot abscess. Patient was evaluated by Dr. Kowalski, general surgeon and was taken to OR on 11/20 for left 4th toe amputation and again on 12/02 for further debridement of left foot down to the bone. Wound culture grew Streptococcus agalactiae group B. Infectious Disease team was consulted and Dr. Ash recommended usp IV antibiotics. Patient received cefepime and vancomycin while hospitalized and had improvement of her symptoms and eventually switched to rocephin following c marie resuts. PICC line was placed 11/21. She is to complete a total of 6 weeks IV antibiotics (End date: 12/31/23). During her hospitalization, doppler ultrasound on 11/18 noted moderate peripheral vascular disease of left lower extremity. Dr. Palomares was consulted. Patient underwent Left lower extremity angiogram on 11/27, was found to have severe stenosis of left proximal superficial femoral artery and popliteal artery, and had angioplasty and stenting done (Full report below). Patient is to follow up with Dr. Palomares as outpatient in 1 week for further management. Left Lower Extremity Angiogram Report: 1. Severe left proximal superficial femoral artery stenosis (~70%). s/p angioplasty and stenting 2. Severe left proximal popliteal artery stenosis (~80%). s/p balloon angioplasty 3. Complete 100% occlusion of the left anterior tibial and posterior tibial arteries Medications: Rocephin 1000 mg daily (End date: 12/31/23) Plavix (Clopidogrel) continue until told otherwise by Dr. Palomares refilled recent medications to continue - gabapentin, atorvastatin continue aspirin 81mg Follow up: PCP 3-5 days Wound healing center in [address] Palomares in 1 week Please call to schedule / confirm appointments Continue local wound care: clean left foot with vashe solution pat dry then apply bactroban and gauze to open incisions Physical Exam: GEN: Alert, oriented, NAD HEENT: Normal conjunctiva, sclera anicteric CV: Regular rate and rhythm, no edema Pulm: Nonlabored respirations on room air, clear bilaterally Integumentary: s/p left 4th toe amputation, Dressing in place c/d/i Neuro: Normal speech, normal affect Vital Signs/Physical Exam: Temp Pulse Resp BP Pulse Ox 97.9 F 78 16 116/65 98 12/04/23 16:00 12/04/23 16:00 12/04/23 16:00 12/04/23 16:00 12/04/23 16:00 Other Physical/Emotional Findings: left leg: Femoral pulse palpable. Dorsalis pedis and posterior tibial pulses nonpalpable. Popliteal pulse nonpalpable. Laboratory Data at Discharge: WBC 14.30 thou/uL (4.3-10.9) H 12/04/23 04:38 Hgb 9.6 g/dL (12.0-15.0) L 12/04/23 04:38 Hct 28.4 % (36.0-45.0) L 12/04/23 04:38 Plt Count 445 thou/uL (152-406) H 12/04/23 04:38 PT 12.0 SECONDS (9.5-12.5) 11/19/23 20:53 INR 1.09 11/19/23 20:53 APTT 29.2 SECONDS (24.3-36.9) 11/19/23 20:53 Sodium 139 mEq/L (136-145) 12/04/23 04:38 Potassium 3.7 mEq/L (3.5-5.1) 12/04/23 04:38 BUN 11 mg/dL (7-18) 12/04/23 04:38 Creatinine 0.79 mg/dL (0.55-1.02) 12/04/23 04:38 Glucose 118 mg/dL (74-106) H 12/04/23 04:38 Magnesium 1.7 mg/dL (1.6-2.4) 11/23/23 04:21 Total Bilirubin 1.3 mg/dL (0.2-1.0) H 11/21/23 07:36 AST 14 U/L (15-37) L 11/21/23 07:36 ALT 18 U/L (13-56) 11/21/23 07:36 Alkaline Phosphatase 64 U/L (45-117) 11/21/23 07:36 Home Medications: Aspirin Chewable [Aspirin Chewable*] 81 mg PO DAILY 10/31/19 Metformin HCl [Metformin ER Osmotic] 1,000 mg PO BID 09/15/21 Atorvastatin Calcium 40 mg PO BEDTIME 30 Days #30 tab 12/04/23 Clopidogrel Bisulfate [Plavix*] 75 mg PO DAILY 30 Days #30 tab 12/04/23 Gabapentin 300 mg PO TID 30 Days #90 cap 12/04/23 Hydrocodone 5/APAP 325 [[place] 5/325*] 1 tab PO Q8H PRN #15 tab 12/04/23 Hydrocodone 5/APAP 325 [[place] 5/325*] 1 tab PO Q8H PRN #15 tab 12/04/23 Mupirocin Oint [Bactroban 2% Ointment*] 1 appl TOP BID 14 Days #2 tube 12/04/23 New Medications: Atorvastatin Calcium 40 mg PO BEDTIME 30 Days #30 tab Mupirocin Oint [Bactroban 2% Ointment*] 1 appl TOP BID 14 Days #2 tube Gabapentin 300 mg PO TID 30 Days #90 cap Hydrocodone 5/APAP 325 [[place] 5/325*] 1 tab PO Q8H PRN #15 tab PRN Reason: Pain Hydrocodone 5/APAP 325 [[place] 5/325*] 1 tab PO Q8H PRN #15 tab PRN Reason: Pain Clopidogrel Bisulfate [Plavix*] 75 mg PO DAILY 30 Days #30 tab Physician Discharge Instructions: Physician discharge instructions: Patient presented with worsening left foot pain/redness and was found to have acute cellulitis complicated by osteomyelitis of left 4th toe and small left dorsal foot abscess. Patient was evaluated by Dr. Kowalski, general surgeon and was taken to OR on 11/20 for left 4th toe amputation and again on 12/02 for further debridement of left foot down to the bone. Wound culture grew Streptococcus agalactiae group B. Infectious Disease team was consulted and Dr. Ash recommended usp IV antibiotics. Patient received cefepime and vancomycin while hospitalized and had improvement of her symptoms and eventually switched to rocephin following culture resuts. PICC line was placed 11/21. She is to complete a total of 6 weeks IV antibiotics (End date: 12/31/23). During her hospitalization, doppler ultrasound on 11/18 noted moderate peripheral vascular disease of left lower extremity. Dr. Palomares was consulted. Patient underwent Left lower extremity angiogram on 11/27, was found to have severe stenosis of left proximal superficial femoral artery and popliteal artery, and had angioplasty and stenting done (Full report below). Patient is to follow up with Dr. Palomares as outpatient in 1 week for further management. Left Lower Extremity Angiogram Report: 1. Severe left proximal superficial femoral artery stenosis (~70%). s/p angioplasty and stenting 2. Severe left proximal popliteal artery stenosis (~80%). s/p balloon angioplasty 3. Complete 100% occlusion of the left anterior tibial and posterior tibial arteries Medications: Rocephin 1000 mg daily (End date: 12/31/23) Plavix (Clopidogrel) continue until told otherwise by Dr. Palomares refilled recent medications to continue - gabapentin, atorvastatin continue aspirin 81mg Follow up: PCP 3-5 days Wound healing center in [address] Palomares in 1 week Please call to schedule / confirm appointments Continue local wound care: clean left foot with vashe solution pat dry then apply bactroban and gauze to open incisions Home Health arranged: [facility] P:[phone] F:[phone] Home IV antibiotics: [facility]-[address] [place] [address] Dr Angel Luis Beard, [place] [address] P/ Cynthia: [phone] F In-Home Family Nurse Practitioner (following the IV antibiotics): RUSSELL Booker ph: [phone] fax: [phone] [address] [facility] [place] [address] Followup: Khai Don MD [Primary Care Provider] - Jimbo Kowalski MD [ACTIVE - CAN ADMIT] - Maria De Jesus Palomares MD [ACTIVE - CAN ADMIT] - Time spent managing pt's care (in minutes): 45
== END 2023-12-04 18:40 | disposition home health service (06) | DRG 854 ==
LOC: ER 16:52 → ERHOLD 22:41 → 2ND 11-20 05:47
PROVIDERS: ADMIT Internal Medicine; ATTEND Hospitalist
PROC: 0Y6W0Z0 Detachment at Left 4th Toe, Complete, Open Approach (ICD-10-PCS; principal; 2023-11-21 11:00)
PROC: 02HV33Z Insertion of Infusion Device into Superior Vena Cava, Percutaneous Approach (ICD-10-PCS; 2023-11-22)
PROC: 047L3D1 Dilation of Left Femoral Artery with Intraluminal Device, using Drug-Coated Balloon, Percutaneous Approach (ICD-10-PCS; 2023-11-28)
PROC: 047L3DZ Dilation of Left Femoral Artery with Intraluminal Device, Percutaneous Approach (ICD-10-PCS; 2023-11-28)
PROC: 047N3ZZ Dilation of Left Popliteal Artery, Percutaneous Approach (ICD-10-PCS; 2023-11-28)
PROC: 04HL33Z Insertion of Infusion Device into Left Femoral Artery, Percutaneous Approach (ICD-10-PCS; 2023-11-28)
PROC: 0QBR0ZZ Excision of Left Toe Phalanx, Open Approach (ICD-10-PCS; 2023-12-03)
PROC: 0QBP0ZX Excision of Left Metatarsal, Open Approach, Diagnostic (ICD-10-PCS; 2023-12-03)
DX: A40.1 Sepsis due to streptococcus, group B (principal); E11.52 Type 2 diabetes mellitus with diabetic peripheral angiopathy with gangrene; L03.116 Cellulitis of left lower limb; E87.1 Hypo-osmolality and hyponatremia; M86.172 Other acute osteomyelitis, left ankle and foot; L02.612 Cutaneous abscess of left foot; E11.69 Type 2 diabetes mellitus with other specified complication; E11.65 Type 2 diabetes mellitus with hyperglycemia; E11.42 Type 2 diabetes mellitus with diabetic polyneuropathy; E11.621 Type 2 diabetes mellitus with foot ulcer; L97.529 Non-pressure chronic ulcer of other part of left foot with unspecified severity; D63.8 Anemia in other chronic diseases classified elsewhere; I10 Essential (primary) hypertension; Z79.4 Long term (current) use of insulin; Z79.82 Long term (current) use of aspirin; Z79.84 Long term (current) use of oral hypoglycemic drugs; Z89.421 Acquired absence of other right toe(s); Z79.899 Other long term (current) drug therapy
CPT/HCPCS: 36200; 36246; 36415; 36569; 37224; 37226; 71045; 73700; 75625; 76937; 80048; 80053; 80202; 81001; 82947; 83605; 83735; 84132; 84484; 85025; 85610; 85730; 86140; 87040; 87070; 87077; 87176; 87186; 87205; 88304; 88305; 88311; 93005; 93926; 93971; 94010; 96365; 96366; 96367; 96375; 97110; 97116; 97161; 99152; 99153; 99285; C1725; C1769; C1893; C2623; J0360; J0461; J0692; J0696; J1100; J1650; J2001; J2250; J2270; J2405; J2704; J2997; J3010; J7030; J7040; J7050

== ENCOUNTER 2024-02-02 18:14 | Inpatient (IN) | payer OTHER ==
[2024-02-02] MEDS ORDERED: ONDANSETRON 4 MG/2 ML VIAL ONE (19:08)
[2024-02-02] MEDS ORDERED: MORPHINE 4 MG/ML SYR ONE (19:09)
[2024-02-02 19:14] LABS: Absolute Basophils 0.1 K/uL (0-0.5); Absolute Eosinophils 0.4 K/uL (0-0.5); Absolute Lymphocytes (CBC) 3.9 K/uL (0.7-4.9); Absolute Monocytes 0.6 K/uL (0.1-1.3); Absolute Neutrophil 7.5 K/uL (1.8-8.0); Basophils % 0.9 % (0-1.3); Hematocrit 33.6 % (36.0-45.0); Hemoglobin 11.3 g/dL (12.0-15.0); Lymphocytes % 31.2 % (15.3-44.8); MCH 29.1 pg (27.0-35.0); MCHC 33.7 g/dL (32.0-36.0); MCV 86.2 fL (80-100); MPV 7.6 fL (7.6-11.3); Monocytes % 5.1 % (3.3-12.3); Neutrophils % 59.8 % (41.7-73.7); Nucleated Red Blood Cells % 0.1 % (0-0); Platelets 463 thou/uL (152-406); Red Cell Distribution Width 13.9 % (12.1-15.2)
[2024-02-02 19:19] LABS: PT Prothrombin Time 12.7 SECONDS (9.4-12.5); PTT, Activated Partial Thromb 34.2 SECONDS (24.3-36.9); Protime INR 1.14
[2024-02-02 19:56] LABS: Albumin 2.7 g/dL (3.4-5.0); Albumin/Globulin Ratio 0.5 (1.1-1.8); Anion Gap 11.8 mEq/L (5.0-15.0); Bilirubin Total 0.6 mg/dL (0.2-1.0); C-Reactive Protein 16.9 mg/L (<3.00); Globulin 5.1 g/dL (2.3-3.5); Potassium 3.8 mEq/L (3.5-5.1); Protein, Total 7.8 g/dL (6.4-8.2)
--- NOTE | 2024-02-02 20:04 | RAD REPORT ---
EXAM DESCRIPTION: US - Lower Extremity Artery Uni Ltd - 02/02/2024 7:44 pm CLINICAL HISTORY: PAIN COMPARISON: Lower Extremity Artery Uni Ltd dated 11/19/2023 FINDINGS: Color Doppler, grayscale, and spectral analysis was performed. The left common femoral artery has a triphasic waveform. The SFA has a multiphasic waveforms. A stent is present which is patent. A popliteal artery stent is also present. The popliteal artery has a tri phasic waveform. Monophasic flow is present within the posterior tibial and dorsalis pedis arteries. IMPRESSION: Monophasic waveforms in the dorsalis pedis and posterior tibial arteries consistent with at least moderate stenoses. The popliteal artery has biphasic flow which would suggest that no hemodynamically significant stenos is is present. The popliteal artery previously had monophasic flow.
--- NOTE | 2024-02-02 20:06 | RAD REPORT ---
EXAM DESCRIPTION: RAD - Foot Left 3 View - 02/02/2024 7:50 pm CLINICAL HISTORY: open wound COMPARISON: Foot Left 2 View dated 11/19/2023; Foot Left 3 View dated 11/17/2023 FINDINGS/IMPRESSION: Interval partial amputation of the fourth toe. Postoperative changes as expecte d. No findings that would suggest osteomyelitis. No acute fracture. Calcaneal spurs. Peripheral vascu lar calcifications .
[2024-02-02] MEDS ORDERED: ONDANSETRON 4 MG/2 ML VIAL IV PRN (20:10)
[2024-02-02] MEDS ORDERED: ACETAMINOPHEN 500 MG TAB PO PRN (20:10)
[2024-02-02] MEDS ORDERED: LORAZEPAM 0.5 MG TABLET PO PRN (20:15)
[2024-02-02] MEDS ORDERED: Oxycodone HCl/Acetaminophen 5/325 MG TAB PO PRN (20:15)
--- NOTE | 2024-02-02 20:25 | P.HP ---
Certification for Inpatient With expected LOS: >2 Midnights Patient will require the following post-hospital care: None Practitioner: I am a practitioner with admitting privileges, knowledge of patient current condition, hospital course, and medical plan of care. Services: Services provided to patient in accordance with Admission requirements found in Title 42 Section 412.3 of the Code of Federal Regulations Patient History Date of Service: 02/02/24 Reason for admission: Left foot pain History of Present Illness: 78-year-old female with history of HTN/DM/PVD, previous multiple right foot amputations, previous left fourth toe partial amputation, previously receiving wound care management with Dr. Kowalski; presented to the hospital today because of worsening left foot pain, more over bed of the 4th toe ampuation and 5th toe digit as well as necrosis of the toe . She admits to fever and chills. She denies any recent trauma. She is mainly [place]-speaking but she states she is not happy with the care she has been receiving at the wound care clinic. Apparently she has wanted more intervention. Patient placed on conservative management on the fifth toe necrosis self amputate. She wants further intervention for the fourth digit bed wound. On arrival in the ED she was afebrile, vital signs stable, noted with elevated WBC of 12.9, lactic acid of 2.4 as well as CRP of 16.9. X-ray of the left foot shows evidence of partial fourth toe amputation but no evidence of osteomyelitis, Doppler arterial of last 20 shows no significant vascular stenosis. Patient is being admitted for further management. She is expressing switch of care to Dr. Carson Tello. She has been admitted for persistent left fourth toe digit cellulitis with sepsis Allergies No Known Allergies Allergy (Verified 10/24/22 10:59) Home Medications: Aspirin Chewable [Aspirin Chewable*] 81 mg PO DAILY 10/31/19 Metformin HCl [Metformin ER Osmotic] 1,000 mg PO BID 09/15/21 Atorvastatin Calcium 40 mg PO BEDTIME 30 Days #30 tab 12/04/23 Clopidogrel Bisulfate [Plavix*] 75 mg PO DAILY 30 Days #30 tab 12/04/23 Gabapentin 300 mg PO TID 30 Days #90 cap 12/04/23 Hydrocodone 5/APAP 325 [[place] 5/325*] 1 tab PO Q8H PRN #15 tab 12/04/23 Hydrocodone 5/APAP 325 [[place] 5/325*] 1 tab PO Q8H PRN #15 tab 12/04/23 Mupirocin Oint [Bactroban 2% Ointment*] 1 appl TOP BID 14 Days #2 tube 12/04/23 - Past Medical/Surgical History Diabetic: Yes -: HTN -: DM2 -: Amputation of right toes 2019 -: Vascular sx 2021 -: Right breast tumor removal 1972 -: Skin Graft 10/2019 -: wrist and elbow surgery -: toe amputation -: R leg stent -: 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 - Family History Father -: Heart disease Mother -: Diabetes - Social History Smoking Status: Unknown if ever smoked Alcohol use: No CD- Drugs: No Caffeine use: Yes Place of Residence: Home Review of Systems 10-point ROS is otherwise unremarkable General: Fever, Chills, Weakness Musculoskeletal: Foot Pain Physical Examination - Physical Exam General: Alert, In no apparent distress, Oriented x3 HEENT: Atraumatic, Normocephalic, PERRLA Neck: Supple, 2+ carotid pulse no bruit, JVD not distended Respiratory: Clear to auscultation bilaterally, Normal air movement Cardiovascular: No edema, Normal pulses, Regular rate/rhythm, Normal S1 S2 Gastrointestinal: Normal bowel sounds, Soft and benign, Non-distended Musculoskeletal: No clubbing, No swelling, Tenderness (left 4th toe partial amp , necrotic 5th toe digit, ), Warmth, Other (large granulating base of 4thray amputation bed , necrotic 5th digit) Neurological: Normal speech, Normal strength at 5/5 x4 extr, Sensation intact, Cranial nerves 3-12 intact - Studies Laboratory Data (last 24 hrs) 02/02/24 02/02/24 02/02/24 19:31 19:04 19:04 WBC 12.60 H Hgb 11.3 L Hct 33.6 L Plt Count 463 H PT 12.7 H INR 1.14 APTT 34.2 Sodium 135 L Potassium 3.8 BUN 14 Creatinine 0.91 Glucose 206 H Total Bilirubin 0.6 AST 17 ALT 16 Alkaline Phosphatase 92 Assessment and Plan - Problems (Diagnosis) (1) Diabetic ulcer of left fifth toe Current Visit: No Status: Acute (2) Uncontrolled type II diabetes mellitus Current Visit: No Status: Acute (3) Hypertension Current Visit: No Status: Chronic (4) Diabetic ulcer of right foot Current Visit: No Status: Resolved - Plan Impression Non healing left 4th tow amputation wound Left 5th toe cellulitis/necrosis with sepsis, rule out osteomyelitis History of PVD Hypertension Diabetes mellitus Plan Obtain MRI of the left foot to rule out osteomyelitis Start empirical vancomycin/Levaquin Blood culture x 2 Elevated CRP noted, follow with antibiotics Pain control with Tylenol as needed morphine Insulin sliding scale with Accu-Cheks Resume home regimen Blood pressure control, IV hydralazine as needed elevation Subcutaneous Lovenox for DVT prophylaxis Dispopossible hospital stay for more than 2 nights General Surgery consult with Dr. Carson Mattson for evaluation and possible debridement in am will keep NPO past midnight Total time spent in review of examination as well as discussion greater than 65 minutes Discharge Plan: Home - Advance Directives Does patient have a Living Will: No Does patient have a Durable POA for Healthcare: No
--- NOTE | 2024-02-02 20:34 | ER ---
Nurse's Notes [facility] Name: Maria Isabel Stacy Age: 78 yrs Sex: Female : 1945 Arrival Date: 02/02/2024 Time: 18:14 Bed 19 Private MD: Diagnosis: Cellulitis of left lower limb;Sepsis, unspecified organism Presentation: 02/01 18:30 Chief complaint: Patient states: had amputation of left fourth toe in October and now left aa5 fifth toe is necrotic. Pt c/o left foot pain. 18:30 Coronavirus screen: At this time, the client does not indicate any symptoms associated aa5 with coronavirus-19. Ebola Screen: Patient denies travel to an Ebola-affected area in the 21 days before illness onset. Initial Sepsis Screen: Does the patient meet any 2 criteria? No. Patient's initial sepsis screen is negative. Does the patient have a suspected source of infection? No. Patient's initial sepsis screen is negative. Risk Assessment: Do you want to hurt yourself or someone else? Patient reports no desire to harm self or others. Onset of symptoms was January 2024. 18:30 Method Of Arrival: Wheelchair aa5 18:30 Acuity: DORCAS 2 aa5 Historical: - PMHx: 18:34 diabetes mellitus; Hypertensive disorder; neuropathy; aa5 - PSHx: 18:34 R foot all toes amputated; aa5 18:37 left fourth toe amputation; aa5 - Immunization history:: Client reports having NOT received the Covid vaccine. - Infectious Disease History:: Denies. - Social history:: Smoking status: unknown. Screenin:09 [facility] ED Fall Risk Assessment (Adult) History of falling in the last 3 months, cm10 including since admission No falls in past 3 months (0 pts) Confusion or Disorientation No (0 pts) Intoxicated or Sedated No (0 pts) Impaired Gait Yes (1 pt) Mobility Assist Device Used Yes (1 pt) Altered Elimination No (0 pt) Score/Fall Risk Level 0 - 2 = Low Risk Oriented to surroundings, Maintained a safe environment, Provided non-skid footwear, Hourly rounding (assess needs \T\ fall precautionary measures) done. Abuse screen: Denies threats or abuse. Denies injuries from another. Nutritional screening: No deficits noted. Tuberculosis screening: No symptoms or risk factors identified. Assessment: 19:09 General: Appears in no apparent distress. uncomfortable, Behavior is calm, cooperative, cm10 appropriate for age. Pain: Complains of pain in left foot. Neuro: No deficits noted. Level of Consciousness is awake, alert, obeys commands, Oriented to person, place, time, situation, Appropriate for age. Respiratory: No deficits noted. Airway is patent Respiratory effort is even, unlabored, Respiratory pattern is regular, symmetrical. Derm: Wound noted left fourth toe and left fifth toe Wound is Necrosis noted. 19:50 Reassessment: Patient appears in no apparent distress at this time. Patient and/or tm6 family updated on plan of care and expected duration. Pain level reassessed. Patient is alert, oriented x 3, equal unlabored respirations, skin warm/dry/pink. Patient states feeling better. 20:56 Reassessment: report sent to 4th floor. Called 4th 3 times, unable to reach. Notified 6 dye house hand, Trina. 21:24 Reassessment: Patient appears in no apparent distress at this time. Patient and/or tm6 family updated on plan of care and expected duration. Pain level reassessed. Patient is alert, oriented x 3, equal unlabored respirations, skin warm/dry/pink. Vital Signs: 18:30 BP 142 / 78; Pulse 72; Resp 20 S; Temp 98.1(O); Pulse Ox 99% on R/A; aa5 19:50 BP 120 / 77; Pulse 64; Pulse Ox 99% on R/A; Pain 0/10; tm6 20:52 Weight 56.25 kg; Height 5 ft. 4 in. ; tm6 21:24 BP 147 / 97; Pulse 59; Pulse Ox 97% on R/A; Pain 0/10; tm6 20:52 Body Mass Index 21.28 (56.25 kg, 162.56 cm) tm6 19:50 Pain Scale: Adult tm6 21:24 Pain Scale: Adult tm6 ED Course: 18:19 Patient arrived in ED. im 18:27 Imtiaz Murcia PA is PHCP. cp 18:27 Imtiaz Pelayo MD is Attending Physician. cp 18:30 Arm band placed on Patient placed in an exam room, on a stretcher. aa5 18:37 Triage completed. aa5 18:46 Constance Kowalski, RN is Primary Nurse. cm10 19:08 Ptt, Activated Sent. cm10 19:08 Protime (+inr) Sent. cm10 19:08 Lactate w/ 2H reflex if indic. Sent. cm10 19:08 CMP Sent. cm10 19:08 CBC with Diff Sent. cm10 19:08 Inserted saline lock: 20 gauge in right forearm, using aseptic technique. Blood cm10 collected. Flushed with 10 mL NS. 19:08 Initial lab(s) drawn, by me, sent to lab. First set of blood cultures drawn by me. cm10 19:09 Patient has correct armband on for positive identification. Bed in low position. Call cm10 light in reach. Side rails up X2. Provided Education on: ER process and procedures.. Client placed on continuous cardiac and pulse oximetry monitoring. NIBP monitoring applied. real estate underwriter on. 19:11 Report given to RUTH Garcia. cm10 19:19 EKG done, by ED staff, reviewed by Imtiaz HERRERA. oe 19:20 Jose Lin, RUTH is Primary Nurse. tm6 19:35 Inserted saline lock: 20 gauge in left wrist, using aseptic technique. Blood collected. tm6 Flushed with 10 mL NS. 19:46 US LE Artery Uni Ltd In Process Unspecified. EDMS 19:51 CRP Sent. tm6 19:52 XRAY Foot LEFT 3 View In Process Unspecified. EDMS 20:32 Monica Calderón MD is Hospitalizing Provider. cp 21:27 No provider procedures requiring assistance completed. Patient admitted, IV remains in tm6 place. Administered Medications: 19:20 Drug: morphine IVP or IV 4 mg IVP once over 4 mins Route: IVP; Infused Over: 4 mins; tm6 Site: right forearm; 19:50 Follow up: Response: No adverse reaction; Pain is decreased tm6 19:20 Drug: Ondansetron IVP 4 mg IVP once; over 2 minutes Route: IVP; Site: right forearm; tm6 19:50 Follow up: Response: No adverse reaction; Marked relief of symptoms tm6 21:04 Drug: Cefepime IVPB 1 grams IVPB at 200 ml/hr once over 30 mins; (mix in NS 100 mL) tm6 Route: IVPB; Rate: 200 ml/hr; Infused Over: 30 mins; Site: right forearm; 21:25 Follow up: Response: No adverse reaction; IV Status: Completed infusion; IV Intake: tm6 100ml 21:04 Drug: NS 0.9% IV 1000 ml IV at 1 bolus Per protocol; 1000 mL bolus Route: IV; Rate: 1 tm6 bolus; Site: right forearm; 21:25 Follow up: IV Status: Completed infusion; IV Intake: 1000ml tm6 21:25 Follow up: Response: No adverse reaction tm6 21:27 Not Given (will be given in Ruci.cn, with 1.5gg): vancomycin1 grams IVPB once over 2 tm6 hrs Medication: 19:09 VIS not applicable for this client. cm10 Intake: 21:25 IV: 1000ml; Total: 1000ml. tm6 21:25 IV: 100ml; Total: 1100ml. tm6 Outcome: 20:34 Decision to Hospitalize by Provider. cp 21:27 Admitted to Med/surg accompanied by nurse, via stretcher, room 403, with chart, tm6 21:27 Condition: stable 21:27 Instructed on the need for admit, 21:27 Patient left the ED. tm6 Signatures: Dispatcher [employer] EDMS Zora Castillo, RN RN aa5 Imtiaz Murcia PA PA cp Glenn Montana Itzel im Martinez, Clarissa, RN RN cm10 Jose Lin RN RN tm6
--- NOTE | 2024-02-02 20:34 | EDPHYS ---
Physician Documentation [facility] Name: Maria Isabel Stacy Age: 78 yrs Sex: Female : 1945 Arrival Date: 02/02/2024 Time: 18:14 Bed 19 Private MD: ED Physician Imtiaz Pelayo HPI: 02/01 18:55 This 78 yrs old Female presents to ER via Wheelchair with complaints of Wound cp Check - foot, Foot Pain. Historical: - PMHx: 18:34 diabetes mellitus; Hypertensive disorder; neuropathy; aa5 - PSHx: 18:34 R foot all toes amputated; aa5 18:37 left fourth toe amputation; aa5 - Immunization history:: Client reports having NOT received the Covid vaccine. - Infectious Disease History:: Denies. - Social history:: Smoking status: unknown. ROS: 18:58 Constitutional: Negative for body aches, chills, fever, poor PO intake, cp 18:58 Constitutional: HX per HPI cp 18:58 MS/extremity: Positive for pain, tenderness, of the left foot, Exam: 19:22 ECG was reviewed by the Attending Physician. cp Vital Signs: 18:30 BP 142 / 78; Pulse 72; Resp 20 S; Temp 98.1(O); Pulse Ox 99% on R/A; aa5 19:50 BP 120 / 77; Pulse 64; Pulse Ox 99% on R/A; Pain 0/10; tm6 20:52 Weight 56.25 kg; Height 5 ft. 4 in. ; tm6 21:24 BP 147 / 97; Pulse 59; Pulse Ox 97% on R/A; Pain 0/10; tm6 20:52 Body Mass Index 21.28 (56.25 kg, 162.56 cm) tm6 19:50 Pain Scale: Adult tm6 21:24 Pain Scale: Adult tm6 MDM: 18:27 Patient medically screened. cp 02/01 18:52 Order name: Blood Culture Adult (2) cp 02/01 18:52 Order name: CBC with Diff; Complete Time: 19:47 cp 02/01 18:52 Order name: CMP; Complete Time: 20:03 cp 02/01 20:03 Interpretation: Normal except: NA 135; GLUC 206; GFR 65; ALB 2.7; GLOB 5.1; A/G 0.5. cp 02/01 18:52 Order name: Lactate w/ 2H reflex if indic.; Complete Time: 19:47 cp 02/01 18:52 Order name: Protime (+inr); Complete Time: 19:47 cp 02/01 18:52 Order name: Ptt, Activated; Complete Time: 19:47 cp 02/01 18:52 Order name: Urinalysis w/ reflexes cp 02/01 18:52 Order name: CRP; Complete Time: 20:03 cp 02/01 20:19 Order name: C-Reactive Protein EDMS 02/01 20:19 Order name: Basic Metabolic Panel EDMS 02/01 20:19 Order name: Basic Metabolic Panel EDMS 02/01 20:19 Order name: CBC with Automated Diff EDMS 02/01 20:19 Order name: CBC with Automated Diff EDMS 02/01 18:52 Order name: XRAY Foot LEFT 3 View; Complete Time: 20:31 cp 02/01 18:52 Order name: LE Artery Uni Ltd; Complete Time: 20:31 cp 02/01 20:19 Order name: MRA Foot Left EDMS 02/01 20:49 Order name: EDNV 02/01 20:19 Order name: CONS Physician Consult EDNV 02/01 18:52 Order name: Accucheck; Complete Time: 19:20 cp 02/01 18:52 Order name: Cardiac monitoring; Complete Time: 19:20 cp 02/01 18:52 Order name: EKG - Nurse/Tech; Complete Time: 19:20 cp 02/01 18:52 Order name: IV Saline Lock - Large Bore; Complete Time: 19:08 cp 02/01 18:52 Order name: Labs collected and sent; Complete Time: 19:08 cp 02/01 18:52 Order name: O2 Per Protocol; Complete Time: 19:08 cp 02/01 18:52 Order name: O2 Sat Monitoring; Complete Time: 19:08 cp 02/01 18:52 Order name: Vital Signs; Complete Time: 19:08 cp EC:22 Rate is 67 beats/min. Rhythm is regular. IA interval is normal. QRS interval is normal. cp QT interval is normal. T waves are Inverted in lead aVR. Interpreted by me. Reviewed by me. Administered Medications: 19:20 Drug: morphine IVP or IV 4 mg IVP once over 4 mins Route: IVP; Infused Over: 4 mins; tm6 Site: right forearm; 19:50 Follow up: Response: No adverse reaction; Pain is decreased tm6 19:20 Drug: Ondansetron IVP 4 mg IVP once; over 2 minutes Route: IVP; Site: right forearm; tm6 19:50 Follow up: Response: No adverse reaction; Marked relief of symptoms tm6 21:04 Drug: Cefepime IVPB 1 grams IVPB at 200 ml/hr once over 30 mins; (mix in NS 100 mL) tm6 Route: IVPB; Rate: 200 ml/hr; Infused Over: 30 mins; Site: right forearm; 21:25 Follow up: Response: No adverse reaction; IV Status: Completed infusion; IV Intake: tm6 100ml 21:04 Drug: NS 0.9% IV 1000 ml IV at 1 bolus Per protocol; 1000 mL bolus Route: IV; Rate: 1 tm6 bolus; Site: right forearm; 21:25 Follow up: IV Status: Completed infusion; IV Intake: 1000ml tm6 21:25 Follow up: Response: No adverse reaction tm6 21:27 Not Given (will be given in Post-A-Vox, with 1.5gg): vancomycin1 grams IVPB once over 2 tm6 hrs Disposition Summary: 02/02/24 20:34 Hospitalization Ordered Notes: Hospitalization Status: Inpatient Admission cp Provider: Monica Calderón cp Location: Telemetry/[facility] (Inpatient) cp Condition: Stable cp Problem: new cp Symptoms: have improved cp Bed/Room Type: Standard cp Room Assignment: 403(02/02/24 20:34) af3 Diagnosis - Cellulitis of left lower limb cp - Sepsis, unspecified organism cp Discharge Instructions: - Discharge Summary Sheet af3 Forms: - Medication Reconciliation Form cp - Leadership Thank You Letter cp - SBAR form af3 Addendum: 02/07/2024 01:11 Co-signature as Attending Physician, Imtiaz Pelayo MD I agree with the assessment and c sandhu plan of care. Signatures: Dispatcher [employer] Imtiaz Jamison MD MD cha Calderon, Audri, RN RN aa5 Imtiaz Murcia PA PA Jose Garcia RN RN tm6 Barb Merritt af3 Corrections: (The following items were deleted from the chart) 02/01 18:52 18:52 BLOOD CULTURE*+BA.LAB.BRZ ordered. EDMS EDMS 18:52 18:52 CBC+H.LAB.BRZ ordered. EDMS EDMS 18:52 18:52 COMPREHENSIVE METABOLIC PANEL+C.LAB.BRZ ordered. EDMS EDMS 18:52 18:52 LACTATE+C.LAB.BRZ ordered. EDMS EDMS 18:52 18:52 PROTIME (+INR)+COAG.LAB.BRZ ordered. EDMS EDMS 18:52 18:52 PTT, ACTIVATED+COAG.LAB.BRZ ordered. EDMS EDMS 18:52 18:52 Urinalysis+U.LAB.BRZ ordered. EDMS EDMS 18:52 18:52 C-REACTIVE PROTEIN+C.LAB.BRZ ordered. EDMS EDMS 18:52 18:52 Foot Left 3 View+RAD.RAD.BRZ ordered. EDMS EDMS 18:52 18:52 Lower Extremity Artery Uni Ltd+US.RAD.BRZ ordered. EDMS EDMS 18:52 18:52 Extremity Venous Uni Ltd+US.RAD.BRZ ordered. EDMS EDMS 20:34 20:34 cp af3
[2024-02-02] MEDS ORDERED: CEFEPIME 1 GM/VIAL ONE (20:49)
[2024-02-02] MEDS ORDERED: VANCOMYCIN 1 GM/VIAL ONE (20:49)
[2024-02-02] MEDS ORDERED: NA CHLORIDE 0.9% 100 ML ONE (20:49)
[2024-02-02] MEDS ORDERED: NA CHLORIDE 0.9% 1,000 ML ONE (20:49)
[2024-02-02] MEDS ORDERED: NA CHLORIDE 0.9% 250 ML ONE (20:49)
--- NOTE | 2024-02-02 20:49 | RAD REPORT ---
EXAM DESCRIPTION: US - Extremity Venous Uni Ltd - 02/02/2024 8:38 pm CLINICAL HISTORY: Swelling COMPARISON: None. TECHNIQUE: Real-time sonographic evaluation of the left lower extremity deep venous system was perfo rmed. FINDINGS: Normal compressibility, flow augmentation, phasic flow and spontaneous flow is identified in the left lower extremity deep venous system. No intraluminal filling defects seen. IMPRESSION: No DVT in the left lower extremity.
[2024-02-02] MEDS: FAMOTIDINE 20 MG TAB PO SCH (21:00)
[2024-02-02] MEDS: Levofloxacin500mg IV 500 MG/100 ML BAG IV SCH (21:00)
[2024-02-02] MEDS: VANCOMYCIN 1 GM in NA CHLORIDE 0.9% 250 ML IVPB SCH (21:00)
[2024-02-02] MEDS: FAMOTIDINE 20 MG TAB PO ONE (21:00)
[2024-02-02] MEDS: VANCOMYCIN 1.5 GM in NA CHLORIDE 0.9% 500 ML IVPB ONE (22:00)
[2024-02-02 22:05] VITALS: BMI 20.5
[2024-02-02] MEDS: VANCOMYCIN 500 MG in NA CHLORIDE 0.9% 100 ML IVPB ONE (23:27)
[2024-02-02] MEDS: Levofloxacin500mg IV 500 MG/100 ML BAG IV ONE (23:27)
[2024-02-02] MEDS: MORPHINE 2 MG/ML SYR IV PRN (23:30)
[2024-02-02] MEDS: NA CHLORIDE 0.9% 1,000 ML IV SCH (23:31)
[2024-02-03] MEDS: INSULIN REGULAR (HUMAN) 100 UNIT/ML SQ SCH
[2024-02-03] MEDS: ENOXAPARIN 60 MG/0.6 ML SQ SCH (05:50)
[2024-02-03 07:25] LABS: Absolute Eosinophils 0.4 K/uL (0-0.5); Absolute Lymphocytes (CBC) 2.9 K/uL (0.7-4.9); Absolute Monocytes 0.5 K/uL (0.1-1.3); Absolute Neutrophil 5.7 K/uL (1.8-8.0); Basophils % 0.4 % (0-1.3); Eosinophils % 3.9 % (0-4.4); Hematocrit 30.4 % (36.0-45.0); Hemoglobin 10.1 g/dL (12.0-15.0); Lymphocytes % 30.6 % (15.3-44.8); MCH 28.6 pg (27.0-35.0); MCHC 33.3 g/dL (32.0-36.0); MPV 7.6 fL (7.6-11.3); Monocytes % 5.5 % (3.3-12.3); Neutrophils % 59.6 % (41.7-73.7); Platelets 379 thou/uL (152-406); RBC Red Blood Cell Count 3.53 M/uL (3.86-4.86); Red Cell Distribution Width 13.7 % (12.1-15.2)
[2024-02-03 07:46] LABS: Anion Gap 2.9 mEq/L (5.0-15.0); Potassium 3.9 mEq/L (3.5-5.1)
[2024-02-03] MEDS: METFORMIN ER 500 MG TAB PO SCH (08:00)
[2024-02-03] MEDS ORDERED: HOME MED 1 EA UNK (Sitagliptin Phosphate [Januvia] 50 MG Tablet) PO SCH (09:00)
[2024-02-03] MEDS: methocarbamoL 750 MG TAB PO SCH (09:00)
[2024-02-03] MEDS: GABAPENTIN 300 MG CAP PO SCH (09:00)
[2024-02-03] MEDS: ALOGLIPTIN BENZOATE 12.5 MG TABLET PO SCH (09:00)
[2024-02-03] MEDS: CODEINE 30MG/APAP 300MG TAB PO SCH (09:00)
[2024-02-03] MEDS: ASPIRIN EC 81 MG TAB PO SCH (09:00)
[2024-02-03] MEDS ORDERED: ENOXAPARIN 40 MG/0.4 ML SQ SCH (09:00)
[2024-02-03] MEDS ORDERED: FENTANYL CITR 100 MCG/2 ML ONE (09:54)
[2024-02-03] MEDS ORDERED: MIDAZOLAM HCL 2 MG/2 ML INJ ONE (09:54)
[2024-02-03] MEDS ORDERED: LIDOCAINE 2% MPF 5 ML VIAL ONE (09:54)
[2024-02-03] MEDS ORDERED: propofoL 200 MG/20 ML VIAL IV ONE (09:54)
[2024-02-03] MEDS ORDERED: EPHEDRINE SULF 50 MG/ML VIAL ONE (10:14)
--- NOTE | 2024-02-03 10:26 | P.PN ---
Date of Service: 02/03/24 Subjective: seen after OR today reports some slight pain no new/worsening ROS: 10 point ROS as noted above, otherwise negative Physical Exam: GEN: Alert, oriented, NAD CV: Regular rate and rhythm, no edema Pulm: Non-labored respirations on room air, clear bilaterally ABD: Soft, nontender, nondistended Integumentary: surgical dressing c/d/i Neuro: Normal speech, normal affect vitals reviewed Problem List: sepsis secondary to Nonhealing diabetic left foot wounds/cellulitis now s/p 5th toe amputation hx osteomyelitis, hx multiple bilateral partial toe amputations Peripheral Vascular Disease of LLE IDDM2 with hyperglycemia and Peripheral neuropathy Hypertension sepsis secondary to Nonhealing diabetic left foot wounds/cellulitis hx osteomyelitis, hx multiple bilateral partial toe amputations Peripheral Vascular Disease of LLE Presents with worsening left foot pain near 4th toe amputation site, left 5th toe with some presumed necrosis. Associated with fever/chills. Denies recent trauma. has been seeing Dr. Kowalski for wound care at [facility] ~every 2 weeks recent hx of osteomyelitis ~November 2023. Underwent left 4th toe amputation, s/p 6 weeks rocephin (end date 12/31/23) Xray Left foot (02/01): no findings to suggest osteomyelitis. no acute fracture. calcaneal spurs. peripheral vascular calcifications arterial doppler (02/01): at least moderate stenosis in the dorsalis pedis and posterior tibial arteries. +Popliteal artery has biphasic flow suggestive of no hemodynamically significant stenosis present. (previously had monophasic flow 11/19/23) Dr. Mensah, general surgeon, consulted to eval s/p 5th toe amputation and I&D (02/02) continue empiric vanc / levaquin (02/02-) follow blood and wound cultures confirm home meds pain control IDDM2 with hyperglycemia and Peripheral neuropathy accu-cheks, SSI confirm home dose insulin Hypertension confirm home meds, restart as appropriate VTE: lovenox held for surgery Code: Full Dispo: Home HH, ~ 2 days Pending surgery / recovery / cultures. Time Spent Managing Pts Care (In Minutes): 40
[2024-02-03] MEDS: 0.9 % SODIUM CHLORIDE 1,000 ML IV ONE (10:30)
[2024-02-03] MEDS: LIDOCAINE HCL/EPINEPHRINE 20 ML MDV ONE (10:33)
[2024-02-03] MEDS ORDERED: KETOROLAC 30 MG/ML INJ ONE (10:40)
[2024-02-03] MEDS ORDERED: ONDANSETRON 4 MG/2 ML VIAL ONE (10:40)
[2024-02-03] MEDS ORDERED: dexAMETHasone 4 MG/ML VIAL ONE (10:41)
--- NOTE | 2024-02-03 10:41 | P.OP ---
Preoperative diagnosis: Gangrene / Chronic Wound of LEFT Foot Postoperative diagnosis: Gangrene / Chronic Wound of LEFT Foot Primary procedure: Amputation of 5th Toe of LEFT foot to mid-metatarsal Secondary procedure: Debridement of Necrotic Tissue Anesthesia: GETA + Local Estimated blood loss: <1cc Specimen: Debridement Tissue, 5th Toe of LEFT foot Findings: Gangrene / Chronic Wound of LEFT Foot, 5th Toe Necrosis Complications: None Transferred to: Recovery Room Condition: Good
[2024-02-03 11:02] VITALS: O2SAT 100
--- NOTE | 2024-02-03 11:47 | OP ---
Date of Procedure: 02/03/2024 Surgeon: Nicole Mensah MD, Preoperative Diagnosis: Gangrene/chronic wound to the left foot along the fourth and fifth digits. Procedures: 1.Amputation of the fifth toe of the left foot to the mid metatarsal. 2.Secondary procedure was debridement of necrotic tissue of the fourth webspace. Anesthesia: General endotracheal plus local. Estimated Blood Loss: Less than 1 cc. Specimen: Debridement of tissue and fifth toe of the left foot. Findings: Gangrene/chronic wound to the left foot with fifth toe necrosis extending into the soft ti ssues at the metatarsophalangeal joint. Complications: None. Disposition: Patient transferred to recovery room in good condition. Procedure In Detail: After informed consent was obtained, patient was brought to the operating room, prepped and draped in the usual sterile fashion, after adequate anesthesia was achieved. I placed a dditional anesthetic circumferentially around the wound using 1% lidocaine with epinephrine. I then continued to dissect circumferentially around the fifth toe where it was obvious black gangrenous lizandro nges to this toe. After circumferentially dissecting the soft tissue planes, there was minimal bleed ing through this area. I dissected down to the metatarsophalangeal joint. Ultimately, I noted that the necrosis and ischemic changes extended beyond the metatarsal head, and as such, I used a perioste al elevator to move back all soft tissue to the bed of metatarsal at this point on the fifth digit of the left foot. I then used a bone cutter to ligate this structure and transect the bone. I removed the remaining soft tissue attachments including tendinous connections with scissors after pulling th e remainder from the surgical field and in alignment to retract. At this point, the digit was passed off. I then turned my attention to the fourth webspace which had had previous surgery and had ongoi ng wound care. This area was slough and necrosis. There was almost no granulation tissue, at this p oint. I then circumferentially dissected this out using sharp dissection predominantly down through all nonviable tissues to get down to bleeding tissues. I then curetted the base of this area, irriga nicole it copiously and after I got to a bleeding tissue, I then packed the wound with Vashe soaked dres sing and a sterile dressing placed over top. The patient tolerated the procedure well without incide nt or complication, transferred to PACU in good condition. All counts were correct at the end of the case. AUBREE/KASSIDY Voice ID: [id number] Report ID: [id number]
--- NOTE | 2024-02-03 17:09 | CON ---
Date of Consultation: 02/03/2024 Brief History Of Present Illness: The patient is a 78-year-old female known to me from previous clin ic encounter whereby she came to my office for second opinion for chronic wound of her right foot. S he had a previous amputation of her fourth toe of the right foot and a history of severe peripheral a rterial disease, hypertension, diabetes with multiple instrumentation and angioplasties of her bilate ral lower extremity arterial system with multiple interventions. However, she has had a complicated history of stent occlusion as well as obstruction with severe peripheral arterial disease. She came to the emergency room with complaints of worsening foot pain and worsening necrosis of her fifth toe on the right foot, in addition, with worsening of the wound on the right fourth webspace, which she h ad previous surgery with another surgeon. The necrosis continued to get worse. She admits to fever, chills. No recent trauma. She had recently seen Dr. Mccullough for endovascular radiology evaluation and he called me and gave me an update which explained that she has severe peripheral arterial disease w ith minimal flow down below. However, he was able to reopen some flow to the popliteal region and I believe he placed a stent in the popliteal artery and improved the flow to the area generally but the flow remained severely compromised to the entire foot area, particularly to the distal aspect of the foot. As such, we had discussed surgical options at that point. Past Medical History: For this patient is significant for hypertension, diabetes, peripheral arteria l disease, right breast mass. Past Surgical History: Includes amputation of the fourth right toe on the right foot and a transmeta tarsal amputation of the left foot in 2019. She has had multiple vascular and endovascular intervent ions, the last one being within the last month. She has had a breast tumor removal in 1972. She has had skin grafts in 2019 for the left foot. She has had wrist surgery. She has had elbow surgery. She has had stents placed from an endovascular standpoint on multiple occasions of bilateral lower ex tremities with balloon angioplasty as well. She had a right cyst removed in 1972 from her axilla on the right side. Allergies: NO KNOWN DRUG ALLERGIES. Home Medications: Include aspirin, atorvastatin, metformin, Plavix, gabapentin, [place], mupirocin oin tment. Family History: Father had a history of heart disease. Mother had a history of diabetes. Social History: She denies smoking, alcohol, or recreational drug use. Review of Systems: Ten-point review of systems other than HPI, denies. Physical Examination: General: At the time of my examination, she is awake, alert, and oriented. Psychiatric: She is appropriate and conversive. HEENT: She is normocephalic. Sclerae anicteric. Mucous membranes are moist. Oropharynx is clear. Neck: Supple without JVD. Chest: Normal expansion, excursion. Cardiovascular: Regular rate and rhythm. Pulmonary: Clear to auscultation bilaterally. Abdomen: Soft. Extremities: Focused examination of the lower extremities, she has well-healed incisions on the left foot with no obvious necrosis or wounds at that area. There are no toes present on this foot. On t he right foot, however, she has toes 1, 2 and 3 appeared to be relatively normal in appearance. Ther e is a large open necrotic wound with the obvious infection and murky fluid at the fourth webspace. In addition, her fifth toe has become gangrenous as well with both very dry and wet component. Laboratory Data: She had a white blood cell count of 12.6 on admission, hemoglobin is 11.3, hematocr it of 33.6, platelet count was 463. Her PT 12.7, INR 1.14, PTT is 34.2, sodium 135, potassium 3.8, c hloride 104, carbon dioxide 23, BUN 14, creatinine 0.9, glucose is 206, lactic acid 1.2, T bili was 0 .6, AST 17, ALT 16, alkaline phosphatase is 92. Urinalysis currently pending. She had imaging perfo rmed, which included an ultrasound of the extremity which showed no DVT in the left lower extremity. She had an arterial ultrasound which showed monophasic waveforms in the dorsalis pedis, posterior ti bial arteries consistent with moderate stenosis. Popliteal arteries have biphasic flow, which would suggest no hemodynamically significant stenosis is present. Popliteal artery previously had monophas ic flow, so this is an improvement over prior. However, noted that the patient did have instrumentat ion as described above. She additionally had a left foot x-ray, 3 view, which showed interval partia l amputation of fourth toe, postoperative changes as expected. No obvious osteomyelitis, calcaneal s pur, peripheral vascular calcifications noted. Assessment And Plan: This is a 78-year-old woman with a complex medical history including severe per ipheral arterial disease, diabetes, hypertension, and complex left lower extremity open non-granulati ng wound with necrosis and gangrenous changes to the fifth toe. 1.IV fluid hydration. 2.Antibiotic coverage. 3.I have explained the risks, benefits, and alternatives of debridement of this left foot open chron ic wound as well as amputation of fifth toe and indicated procedures likely back to a transmetatarsal position including, but not limited to, bleeding, infection, damage to surrounding tissue, need for further operative procedures. Additional surgeries would likely require a higher level amputation du e to her poor blood supply. However, patient has stated she would prefer to try this prior to any ot her significant operations. 4.Continue medical management per Primary team for her other medical comorbid conditions. 5.We will continue ongoing wound care in an attempt to save her limb as much as possible. 6.We will continue to coordinate with endovascular specialist to optimize her peripheral vascular di sease. I have explained the plan as described above. The patient displayed understanding of above stated pl an and agrees to proceed as indicated. Thank you for this interesting consult. AUBREE/KASSIDY Voice ID: [id number] Report ID: [id number]
[2024-02-03] MEDS: VANCOMYCIN 1 GM in NA CHLORIDE 0.9% 250 ML IVPB SCH (20:10)
[2024-02-03] MEDS: FAMOTIDINE 20 MG TAB PO SCH (20:11)
[2024-02-03] MEDS: Levofloxacin 250mg IV 250 MG/50 ML BAG IV SCH (20:11)
[2024-02-04 06:31] LABS: Absolute Basophils 0.1 K/uL (0-0.5); Absolute Eosinophils 0.2 K/uL (0-0.5); Absolute Lymphocytes (CBC) 2.5 K/uL (0.7-4.9); Absolute Monocytes 0.6 K/uL (0.1-1.3); Absolute Neutrophil 8.5 K/uL (1.8-8.0); Basophils % 0.8 % (0-1.3); Eosinophils % 1.4 % (0-4.4); Hematocrit 27.3 % (36.0-45.0); Hemoglobin 9.2 g/dL (12.0-15.0); Lymphocytes % 21.1 % (15.3-44.8); MCH 28.9 pg (27.0-35.0); MCHC 33.8 g/dL (32.0-36.0); MCV 85.5 fL (80-100); MPV 7.7 fL (7.6-11.3); Monocytes % 4.9 % (3.3-12.3); Neutrophils % 71.8 % (41.7-73.7); Platelets 350 thou/uL (152-406); Red Cell Distribution Width 13.4 % (12.1-15.2)
[2024-02-04 06:48] LABS: Albumin 2.4 g/dL (3.4-5.0); Albumin/Globulin Ratio 0.6 (1.1-1.8); Anion Gap 13.9 mEq/L (5.0-15.0); Bilirubin Total 0.5 mg/dL (0.2-1.0); Globulin 4.1 g/dL (2.3-3.5); Magnesium 1.5 mg/dL (1.6-2.4); Potassium 3.9 mEq/L (3.5-5.1); Protein, Total 6.5 g/dL (6.4-8.2)
[2024-02-04] MEDS: INSULIN REGULAR (HUMAN) 100 UNIT/ML SQ SCH (07:30)
--- NOTE | 2024-02-04 11:26 | P.PN ---
Date of Service: 02/04/24 Subjective: No acute events overnight Reports some slight discomfort in her left leg, pain medications are helping Appetite is improved ROS: 10 point ROS as noted above, otherwise negative Physical Exam: GEN: Alert, oriented, NAD CV: Regular rate and rhythm, no edema Pulm: Non-labored respirations on room air, clear bilaterally Integumentary: surgical dressing c/d/i vitals reviewed Problem List: severe sepsis secondary to Nonhealing diabetic left foot wound gangrene and cellulitis now s/p 5th toe amputation and I&D (02/02) hx osteomyelitis, hx multiple bilateral partial toe amputations Peripheral Vascular Disease of LLE IDDM2 with hyperglycemia and Peripheral neuropathy Hypertension severe sepsis secondary to Nonhealing diabetic left foot wounds/cellulitis now s/p 5th toe amputation and I&D (02/02) hx osteomyelitis, hx multiple bilateral partial toe amputations Peripheral Vascular Disease of LLE Presents with worsening left foot pain near 4th toe amputation site, left 5th toe with necrosis. Associated with fever/chills. Denies recent trauma. presumed osteomyelitis has been seeing Dr. Kowalski for wound care at [facility] ~every 2 weeks recent hx of osteomyelitis ~November 2023. Underwent left 4th toe amputation, s/p 6 weeks rocephin (end date 12/31/23) Xray Left foot (02/01): no findings to suggest osteomyelitis. no acute fracture. calcaneal spurs. peripheral vascular calcifications arterial doppler (02/01): at least moderate stenosis in the dorsalis pedis and posterior tibial arteries. +Popliteal artery has biphasic flow suggestive of no hemodynamically si gnificant stenosis present. (previously had monophasic flow 11/19/23) likely will need to f/u with vascular surgery for consideration of bypass Dr. Mensah, general surgeon, consulted to eval s/p 5th toe amputation and I&D (02/02) continue empiric vanc / levaquin (02/02-) follow blood and wound cultures confirm home meds pain control IDDM2 with hyperglycemia and Peripheral neuropathy accu-cheks, SSI confirm home dose insulin Hypertension confirm home meds, restart as appropriate VTE: lovenox restarted 02/03 Code: Full Dispo: Home HH, ~1-2 days Pending recovery / surgery recs / cultures Time Spent Managing Pts Care (In Minutes): 40
[2024-02-04] MEDS: MORPHINE 2 MG/ML SYR IV PRN (19:46)
[2024-02-04 20:11] LABS: Specific Gravity 1.007 (1.005-1.030); Urine Bilirubin NEGATIVE (Negative); Urine Blood Negative (Negative); Urine Clarity Clear (Clear); Urine Color Colorless (Yellow); Urine Glucose NEGATIVE (Negative); Urine Ketones NEGATIVE (Negative); Urine Microscopic Reflex YN NO UMIC; Urine Nitrite NEGATIVE (Negative); Urine Protein NEGATIVE (Negative); Urine Urobilinogen Normal (Normal)
[2024-02-05 07:42] LABS: Absolute Basophils 0.1 K/uL (0-0.5); Absolute Eosinophils 0.2 K/uL (0-0.5); Absolute Lymphocytes (CBC) 3.7 K/uL (0.7-4.9); Absolute Monocytes 0.8 K/uL (0.1-1.3); Absolute Neutrophil 9.1 K/uL (1.8-8.0); Basophils % 0.5 % (0-1.3); Eosinophils % 1.6 % (0-4.4); Hemoglobin 9.5 g/dL (12.0-15.0); Lymphocytes % 26.6 % (15.3-44.8); MCH 28.4 pg (27.0-35.0); MCHC 32.9 g/dL (32.0-36.0); MCV 86.2 fL (80-100); MPV 7.8 fL (7.6-11.3); Monocytes % 5.9 % (3.3-12.3); Neutrophils % 65.4 % (41.7-73.7); Platelets 325 thou/uL (152-406); RBC Red Blood Cell Count 3.36 M/uL (3.86-4.86); Red Cell Distribution Width 13.6 % (12.1-15.2)
[2024-02-05 07:54] LABS: Magnesium 1.2 mg/dL (1.6-2.4)
--- NOTE | 2024-02-05 16:10 | P.PN ---
Subjective Date of Service: 02/05/24 Chief Complaint: Left foot pain Patient is complaining of pain in her left leg. No recorded fever. Physical Examination - Vital Signs Temperature: 97.4 F Blood Pressure: 124/66 Pulse: 77 Respirations: 16 Pulse Ox (%): 99 - Studies Microbiology Data (last 24 hrs): 02/02/24 22:00 Wound - Left Foot Gram Stain - Final Assessment And Plan - Plan Physical Exam: GEN: Alert, oriented, NAD CV: Regular rate and rhythm, no edema Pulm: Non-labored respirations on room air, clear bilaterally Integumentary: surgical dressing c/d/i vitals reviewed Problem List: severe sepsis secondary to Nonhealing diabetic left foot wound gangrene and cellulitis now s/p 5th toe amputation and I&D (02/02) hx osteomyelitis, hx multiple bilateral partial toe amputations Peripheral Vascular Disease of LLE IDDM2 with hyperglycemia and Peripheral neuropathy Hypertension severe sepsis secondary to Nonhealing diabetic left foot wounds/cellulitis now s/p 5th toe amputation and I&D (02/02) hx osteomyelitis, hx multiple bilateral partial toe amputations Peripheral Vascular Disease of LLE recent hx of osteomyelitis ~November 2023. Underwent left 4th toe amputation, s/p 6 weeks rocephin (end date 12/31/23) Xray Left foot (02/01): no findings to suggest osteomyelitis. no acute fracture. calcaneal spurs. peripheral vascular calcifications arterial doppler (02/01): at least moderate stenosis in the dorsalis pedis and posterior tibial arteries. Popliteal artery has biphasic flow suggestive of no hemodynamically significant stenosis present. (previously had monophasic flow 11/19/23) Follow-up with vascular surgery as outpatient. s/p 5th toe amputation and I&D (02/02) by Dr. Mensah Wound culture: Mixed growth and a yeast. I suspect yeast is a contaminant. Antibiotics transitioned to oral Levaquin and doxycycline. Patient with moderate leukocytosis. Monitor CBC Analgesics as needed. IDDM2 with hyperglycemia and Peripheral neuropathy accu-cheks, SSI Continue home oral hypoglycemics. Elevated BP Hydralazine IV as needed for BP spikes. VTE: lovenox. Code: Full Dispo: Home HH, 1-2 days
[2024-02-05] MEDS: MAGNESIUM CITRATE 300 ML BOT PO SCH (17:00)
[2024-02-05] MEDS: levoFLOXacin 750 MG TAB PO SCH (17:30)
--- NOTE | 2024-02-05 17:55 | EKG ---
Test Date: 2024-02-02 Test Time: 19:15:40 Electrical Accessories I Assembler: DAMON MEASUREMENT RESULTS: Intervals: Rate: 67 VA: 156 QRSD: 78 QT: 406 QTc: 429 Gilbert: P: VA: 156 QRS: 28 T: 62 INTERPRETIVE STATEMENTS: Sinus rhythm with premature atrial complexes Otherwise normal ECG Compared to ECG 11/19/2023 22:46:48 Ventricular premature complex(es) no longer present Myocardial infarct finding no longer present Electronically Signed On 02-05-24 17:48:30 CDT by Dano Padilla
[2024-02-05] MEDS ORDERED: VANCOMYCIN 1.25 GM in NA CHLORIDE 0.9% 250 ML IVPB SCH (18:00)
[2024-02-05] MEDS ORDERED: Levofloxacin 750mg IV 750 MG/150 ML BAG IV SCH (18:00)
[2024-02-05] MEDS: DOXYCYCLINE 100 MG CAP PO SCH (20:22)
[2024-02-05] MEDS: HYDRALAZINE HCL 20 MG/ML VIAL IV PRN (20:24)
[2024-02-06 07:28] LABS: Absolute Basophils 0.1 K/uL (0-0.5); Absolute Eosinophils 0.2 K/uL (0-0.5); Absolute Lymphocytes (CBC) 4.3 K/uL (0.7-4.9); Absolute Monocytes 0.8 K/uL (0.1-1.3); Absolute Neutrophil 7.3 K/uL (1.8-8.0); Basophils % 0.8 % (0-1.3); Eosinophils % 1.9 % (0-4.4); Hemoglobin 10.3 g/dL (12.0-15.0); Lymphocytes % 33.8 % (15.3-44.8); MCH 28.7 pg (27.0-35.0); MCHC 33.2 g/dL (32.0-36.0); MCV 86.5 fL (80-100); MPV 7.9 fL (7.6-11.3); Monocytes % 6.4 % (3.3-12.3); Neutrophils % 57.1 % (41.7-73.7); Nucleated Red Blood Cells % 0.1 % (0-0); Platelets 391 thou/uL (152-406); RBC Red Blood Cell Count 3.59 M/uL (3.86-4.86)
[2024-02-06 07:44] LABS: Anion Gap 10.7 mEq/L (5.0-15.0); Potassium 3.7 mEq/L (3.5-5.1)
[2024-02-06 12:31] VITALS: TEMP 98.2
--- NOTE | 2024-02-06 12:55 | P.DS ---
Admission Date: 02/03/24 Discharge Date: 02/06/24 Disposition: NM HOME/HOME HEALTH CARE Discharge Condition: FAIR Reason for Admission: Left foot pain Brief History of Present Illness: 78-year-old female with history of HTN/DM/PVD, previous multiple right foot amputations, previous left fourth toe partial amputation, previously receiving wound care management with Dr. Kowalski; presented to the hospital today because of worsening left foot pain, more more pain around the 4th toe amputation site and 5th toe digit as well as necrosis of the 5th toe. Symptoms associated with o fever and chills. She is mainly Divehi-speaking. In the emergency department, WBC noted to be elevated to 12.9, lactic acid 2.4 as well as CRP of 16.9. X-ray of the left foot showed evidence of partial fourth toe amputation but no evidence of osteomyelitis, Doppler arterial of last 20 shows no significant vascular stenosis. Patient was admitted for further management. Hospital Course: Diagnosis severe sepsis secondary to Nonhealing diabetic left foot wound gangrene and cellulitis now s/p 5th toe amputation and I&D (02/02) hx osteomyelitis, hx multiple bilateral partial toe amputations Peripheral Vascular Disease of LLE IDDM2 with hyperglycemia and Peripheral neuropathy Hypertension severe sepsis secondary to Nonhealing diabetic left foot wounds/cellulitis now s/p 5th toe amputation and I&D (02/02) hx osteomyelitis, hx multiple bilateral partial toe amputations Peripheral Vascular Disease of LLE recent hx of osteomyelitis ~November 2023. Patient underwent 4th toe amputation then, and completed 6 weeks rocephin (end date 12/31/23) Xray Left foot (02/01): no findings to suggest osteomyelitis. no acute fracture. calcaneal spurs. peripheral vascular calcifications arterial doppler (02/01): at least moderate stenosis in the dorsalis pedis and posterior tibial arteries. Popliteal artery has biphasic flow suggestive of no hemodynamically significant stenosis present. (previously had monophasic flow 11/19/23) Follow-up with vascular surgery as outpatient recommended. s/p 5th toe amputation and I&D (02/02) by Dr. Mensah Wound culture: Mixed growth and a yeast. I suspect yeast is a contaminant. Patient was treated with IV Levaquin and vancomycin and then transitioned to oral Levaquin and doxycycline and Diflucan added for possible fungal infection. She had leukocytosis which improved. Patient deemed stable for discharge per surgery Dr. Mensah. IDDM2 with hyperglycemia and Peripheral neuropathy Managed with accu-cheks, SSI and home oral hypoglycemics. Vital Signs/Physical Exam: Temp Pulse Resp BP Pulse Ox 98.2 F 84 18 89/49 L 99 02/06/24 12:00 02/06/24 12:00 02/06/24 12:00 02/06/24 12:00 02/06/24 12:00 General: Alert, In no apparent distress, Oriented x3 HEENT: Mucous membr. moist/pink Neck: JVD not distended Respiratory: Clear to auscultation bilaterally, Normal air movement Cardiovascular: Regular rate/rhythm, Normal S1 S2 Gastrointestinal: Normal bowel sounds, Soft and benign, Non-distended, No tenderness Musculoskeletal: No swelling, Other (Left fifth toe amputation wound and wound at the dorsum of foot adjacent to the left fourth and fifth toes looks clean) Integumentary: No cyanosis Neurological: Normal strength at 5/5 x4 extr, Cranial nerves 3-12 intact Laboratory Data at Discharge: WBC 12.80 thou/uL (4.3-10.9) H 02/06/24 06:45 Hgb 10.3 g/dL (12.0-15.0) L D 02/06/24 06:45 Hct 31.0 % (36.0-45.0) L 02/06/24 06:45 Plt Count 391 thou/uL (152-406) 02/06/24 06:45 PT 12.7 SECONDS (9.4-12.5) H 02/02/24 19:04 INR 1.14 02/02/24 19:04 APTT 34.2 SECONDS (24.3-36.9) 02/02/24 19:04 Sodium 138 mEq/L (136-145) 02/06/24 06:45 Potassium 3.7 mEq/L (3.5-5.1) 02/06/24 06:45 BUN 8 mg/dL (7-18) 02/06/24 06:45 Creatinine 0.69 mg/dL (0.55-1.02) 02/06/24 06:45 Glucose 109 mg/dL (74-106) H 02/06/24 06:45 Magnesium 1.2 mg/dL (1.6-2.4) L 02/05/24 07:22 Total Bilirubin 0.5 mg/dL (0.2-1.0) 02/04/24 06:06 AST 13 U/L (15-37) L 02/04/24 06:06 ALT 17 U/L (13-56) 02/04/24 06:06 Alkaline Phosphatase 84 U/L (45-117) 02/04/24 06:06 Home Medications: Metformin HCl [Metformin ER Osmotic] 1,000 mg PO BIDWM 09/15/21 Gabapentin 300 mg PO TID 30 Days #90 cap 12/04/23 Rivaroxaban [Xarelto] 20 mg PO BID 02/02/24 Sitagliptin Phosphate [Januvia] 50 mg PO DAILY 02/02/24 methocarbamoL [Methocarbamol] 750 mg PO BID 02/02/24 Doxycycline Hyclate [Vibramycin] 100 mg PO BID #26 cap 02/06/24 Fluconazole [Diflucan] 200 mg PO DAILY #7 tab 02/06/24 Hydrocodone 10/APAP 325 [[place] 10/325*] 1 tab PO Q4H PRN #30 tab 02/06/24 levoFLOXacin [Levaquin*] 750 mg PO Q24H #13 tab 02/06/24 New Medications: Fluconazole [Diflucan] 200 mg PO DAILY #7 tab levoFLOXacin [Levaquin*] 750 mg PO Q24H #13 tab Hydrocodone 10/APAP 325 [[place] 10/325*] 1 tab PO Q4H PRN #30 tab PRN Reason: Pain Scale 8-10 (Severe) Doxycycline Hyclate [Vibramycin] 100 mg PO BID #26 cap Physician Discharge Instructions: Home Health: [facility] Home Health P:[phone] F:[phone] Wound care: Daily dressing changes: Remove all packing material irrigate with sterile saline then repack wound with Vashe damp to dry in wound bed separate toes with dry gauze placed dry gauze over wrap and elevate with Julián bandage Diet: ADA Activity: Non-weight bearing (left foot) Followup: Carson Mensah MD [ACTIVE - CAN ADMIT] - 1 Week Don,Khai Combs MD [Primary Care Provider] - 1-2 Weeks Time spent managing pt's care (in minutes): 35
[2024-02-06] MEDS: HYDROCODONE/APAP 10/325 TAB PO PRN (14:41)
[2024-02-06 16:45] VITALS: BP 121/59
== END 2024-02-06 18:46 | disposition home health service (06) | DRG 854 ==
LOC: ER 18:14 → ERHOLD 20:10 → 4TH 21:05 → OBSVTOIN 02-03 15:22
PROVIDERS: ADMIT Internal Medicine; ATTEND Internal Medicine
PROC: 0JBR0ZZ Excision of Left Foot Subcutaneous Tissue and Fascia, Open Approach (ICD-10-PCS; 2024-02-03)
PROC: 0Y6Y0Z0 Detachment at Left 5th Toe, Complete, Open Approach (ICD-10-PCS; principal; 2024-02-03 10:00)
DX: A41.9 Sepsis, unspecified organism (principal); E11.52 Type 2 diabetes mellitus with diabetic peripheral angiopathy with gangrene; R65.20 Severe sepsis without septic shock; L03.032 Cellulitis of left toe; E11.42 Type 2 diabetes mellitus with diabetic polyneuropathy; E11.65 Type 2 diabetes mellitus with hyperglycemia; E11.621 Type 2 diabetes mellitus with foot ulcer; L97.519 Non-pressure chronic ulcer of other part of right foot with unspecified severity; L97.529 Non-pressure chronic ulcer of other part of left foot with unspecified severity; I10 Essential (primary) hypertension; Z89.431 Acquired absence of right foot; Z79.82 Long term (current) use of aspirin; Z79.84 Long term (current) use of oral hypoglycemic drugs; Z79.02 Long term (current) use of antithrombotics/antiplatelets; Z28.310 Unvaccinated for COVID-19; Z79.899 Other long term (current) drug therapy; Z89.422 Acquired absence of other left toe(s)
CPT/HCPCS: 36415; 80048; 80053; 80202; 81003; 82947; 83605; 83735; 85025; 85610; 85730; 86140; 87040; 87070; 87205; 88304; 88305; 88311; 93005; 93926; 93971; 96365; 96375; 97161; 97530; 99285; G0378; J0360; J0692; J1100; J1650; J2001; J2250; J2270; J2405; J2704; J3010; J7030; J7040; J7050

== ENCOUNTER 2024-02-15 11:38 | Observation (INO) | payer OTHER ==
[2024-02-15 09:24] LABS: PT Prothrombin Time 14.9 SECONDS (9.4-12.5); PTT, Activated Partial Thromb 32.1 SECONDS (24.3-36.9); Protime INR 1.34
[2024-02-15] MEDS: NA CHLORIDE 0.9% 1,000 ML ONE (12:01)
[2024-02-15] MEDS ORDERED: propofoL 200 MG/20 ML VIAL IV ONE (12:11)
[2024-02-15] MEDS ORDERED: LIDOCAINE 2% MPF 5 ML VIAL ONE (12:11)
[2024-02-15] MEDS ORDERED: ONDANSETRON 4 MG/2 ML VIAL ONE (12:11)
[2024-02-15] MEDS ORDERED: FENTANYL CITR 100 MCG/2 ML ONE (12:11)
[2024-02-15] MEDS ORDERED: BACITRACIN OINTMENT 14 GM TUBE TOP ONE (12:15)
[2024-02-15] MEDS ORDERED: ROPLVACAINE HCL 40 ML ONE (12:17)
[2024-02-15] MEDS ORDERED: EPINEPHRINE 1 MG/ML VIAL ONE ×2 (12:25→13:57)
[2024-02-15] MEDS ORDERED: dexAMETHasone 10 MG/ML VIAL ONE ×2 (12:25→13:57)
[2024-02-15] MEDS: INSULIN REGULAR (HUMAN) 100 UNIT/ML ONE (12:41)
[2024-02-15] MEDS: CEFAZOLIN SODIUM 2 GM/VIAL ONE (12:42)
[2024-02-15] MEDS ORDERED: ACETAMINOPHEN 325 MG TABLET PO PRN (13:10)
[2024-02-15] MEDS: LIDOCAINE HCL/EPINEPHRINE 20 ML MDV ONE (13:21)
[2024-02-15] MEDS ORDERED: TRAMADOL HCL 50 MG TAB PO PRN (13:22)
[2024-02-15] MEDS ORDERED: BUPIVACAINE 0.5% PF 10 ML VIAL ONE (13:57)
--- NOTE | 2024-02-15 14:04 | P.OP ---
Preoperative diagnosis: LEFT Foot Severe Peripheral Arterial Disease Postoperative diagnosis: LEFT Foot Severe Peripheral Arterial Disease Primary procedure: LEFT Foot Transmetatarsal Amputation Anesthesia: GETA + Local Estimated blood loss: <10cc Specimen: Forefoot Findings: Poor Arterial Inflow to Region Complications: None Transferred to: Recovery Room Condition: Good
[2024-02-15] MEDS: HYDROMORPHONE HCL 1 MG/ML INJ ONE (14:25)
[2024-02-15] MEDS ORDERED: 0.9 % SODIUM CHLORIDE 1,000 ML IV ONE (14:28)
[2024-02-15] MEDS: FENTANYL CITR 100 MCG/2 ML ONE (14:53)
[2024-02-15 15:43] VITALS: BMI 24.0
[2024-02-15] MEDS: INSULIN REGULAR (HUMAN) 100 UNIT/ML SQ SCH (16:30)
--- NOTE | 2024-02-15 17:19 | P.HP ---
Certification for Inpatient Patient admitted to: Observation With expected LOS: <2 Midnights Patient will require the following post-hospital care: None Practitioner: I am a practitioner with admitting privileges, knowledge of patient current condition, hospital course, and medical plan of care. Services: Services provided to patient in accordance with Admission requirements found in Title 42 Section 412.3 of the Code of Federal Regulations <Christnie Ramirez - Last Filed: 02/15/24 17:23> Patient History Date of Service: 02/15/24 Reason for admission: Metatarsal amputation History of Present Illness: Ms. Stacy is a 78-year-old female with a past medical history of diabetes, hypertension, hyperlipidemia, and peripheral arterial disease. She has a remote amputation of all of her fifth toes and was admitted on 02/03/2024 with osteomyelitis of the left fifth toe status post amputation in October of the left fourth toe. She has been going to wound care for cellulitis of the left distal foot. Today on assessment, Dr. Mensah took her to the OR for all 5 distal metatarsal amputations. She had a regional block for pain control and complains of 0 pain at this time. Secondary to her extensive medical history, the hospitalist program was asked to admit the patient for observation. She states she has a wheelchair at home and gets home health care 3 times weekly. She declines PT/OT/SNF placement. At present she is hemodynamically stable. Surgical dressing to left foot clean, dry, and intact. We will likely discharge Ms. Stacy home in the morning to continue home health and wound care per Dr. Mensah's outpatient clinic. - Past Medical/Surgical History Has patient received pneumonia vaccine in the past: Yes Diabetic: Yes -: HTN -: HLD -: Amputation of right toes 2019 -: Vascular sx 2021 -: Right breast tumor removal 1972 -: Skin Graft 10/2019 -: PVD -: wrist and elbow surgery -: toe amputation right foot -: R leg stent -: 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 -: 02/15/2024 metatarsal amputation left foot Psychosocial/ Personal History: Lives at home and has home health 3 times weekly. Patient denies need for SNF placement. - Family History Father -: Heart disease Mother -: Diabetes - Social History Smoking Status: Never smoker Alcohol use: No CD- Drugs: No Caffeine use: Yes Place of Residence: Home <Christine Ramirez - Last Filed: 02/15/24 17:23> Date of Service: 02/15/24 <Yifan Will Ashok - Last Filed: 02/15/24 18:26> Allergies No Known Allergies Allergy (Verified 02/15/24 12:23) Home Medications: Metformin HCl [Metformin ER Osmotic] 1,000 mg PO BIDWM 09/15/21 Gabapentin 300 mg PO TID 30 Days #90 cap 12/04/23 Rivaroxaban [Xarelto] 20 mg PO BID 02/02/24 Sitagliptin Phosphate [Januvia] 50 mg PO DAILY 02/02/24 Doxycycline Hyclate [Vibramycin] 100 mg PO BID #26 cap 02/06/24 levoFLOXacin [Levaquin*] 750 mg PO Q24H #13 tab 02/06/24 Atorvastatin Calcium 40 mg PO DAILY 02/15/24 Codeine/APAP [Tylenol #3*] 1 tab PO BID 02/15/24 Sulfamethoxazole/Trimethoprim [Bactrim 400-80 mg Tablet] 1 each PO BID 02/15/24 Review of Systems 10-point ROS is otherwise unremarkable (No complaint of pain) Musculoskeletal: As per HPI <Christine Ramirez - Last Filed: 02/15/24 17:23> Physical Examination - Vital Signs Temperature: 97.8 F Blood Pressure: 105/55 Pulse: 64 Respirations: 16 Pulse Ox (%): 99 - Physical Exam General: Alert, In no apparent distress, Oriented x3, Other (Thin) HEENT: Atraumatic, Normocephalic Neck: Supple Respiratory: Normal air movement Cardiovascular: No edema, Regular rate/rhythm, Normal S1 S2 Capillary refill: <2 Seconds Gastrointestinal: Normal bowel sounds, Soft and benign Musculoskeletal: Other (Right foot with remote 5 metatarsal amputation, surgical dressing to left foot with metatarsal amputation today) Integumentary: No rashes Neurological: Normal speech, Normal tone, Normal affect Lymphatics: No axilla or inguinal lymphadenopathy External genitalia: Deferred Rectal: Deferred - Studies Laboratory Data (last 24 hrs) 02/15/24 08:59 PT 14.9 H INR 1.34 APTT 32.1 <Christine Ramirez - Last Filed: 02/15/24 17:23> - Studies Laboratory Data (last 24 hrs) 02/15/24 08:59 PT 14.9 H INR 1.34 APTT 32.1 <Yifan Will - Last Filed: 02/15/24 18:26> Assessment and Plan - Plan Status post metatarsal amputation Pain control Consult Dr. Mensah Maintain surgical dressing Plan for discharge in a.m. Patient has wheelchair at home and home health 3 times weekly Wound care per orders of Dr. Mensah Diabetes Glucose monitoring with sliding scale insulin coverage ADA diet Hypertension Metoprolol Lisinopril Monitor and trend PVD Lovenox Distal neurovascular assessment Q4h Hyperlipidemia Atorvastatin VTE/GI prophylaxis Lovenox/Protonix as needed Discharge Plan: Home Plan to discharge in: 24 Hours - Advance Directives Does patient have a Living Will: No Does patient have a Durable POA for Healthcare: No Time Spent Managing Pts Care (In Minutes): 50 <Christine Ramirez - Last Filed: 02/15/24 17:23> - Plan Pt seen and examined. I agree with the note by the SECRET CODE EXPERT. Pt is a 78yo female with past medical history of diabetes, hypertension, hyperlipidemia, and peripheral arterial disease who was admitted after 5 distal metatarsal amputations. Gen surgery asked medicine to admit pt for observation. Lab studies show INR 1.34 and glucose 173. At bedside, pt is in NAD. A/P: S/p amputation: Will continue prn pain med and wound care. poker room manager ordered wheelchair and home health. Dr. Mensah is following. DM II: Continue accuchek, SSI and ADA diet Htn: Continue home med HLD: statin DVT ppx: lovenox Code: full <Yifan Will - Last Filed: 02/15/24 18:26>
[2024-02-15] MEDS: IPRATROPIUM BROM 0.5MG/2.5ML NEB SCH (20:00)
[2024-02-15] MEDS: ARFORMOTEROL TARTRATE 15 MCG/2 ML VIAL.NEB NEB SCH (20:00)
[2024-02-15] MEDS: GABAPENTIN 300 MG CAP PO SCH (20:15)
[2024-02-15] MEDS: CEFTRIAXONE 1,000 MG in NA CHLORIDE 0.9% 50 ML IVPB SCH (20:17)
[2024-02-15] MEDS: NYSTATIN PWDR 100000 UNIT/GM TOP SCH (22:42)
--- NOTE | 2024-02-15 23:54 | OP ---
Date of Procedure: 02/15/2024 Surgeon: Carson Mensah MD, Preoperative Diagnosis: Left foot severe peripheral arterial disease. Postoperative Diagnosis: Left foot severe peripheral arterial disease. Procedure Performed: Left foot transmetatarsal amputation. Anesthesia: General endotracheal plus local, and then a postprocedural regional block will be perfor med. Estimated Blood Loss: Less than 10 cc. Specimens: Forefoot. Findings: Poor arterial inflow to the region of the forefoot. Complications: None. The patient was transferred to recovery room in good condition. Procedure In Detail: After informed consent was obtained, the patient was brought to the operating r oom, prepped and draped in usual sterile fashion. After adequate anesthesia was achieved, I demarcat ed an area of adequate blood supply using a marking pen circumferentially around the foot by palpatin g and looking for blanching and so forth, and based on the discussion I had with Dr. Palomares, endovascul ar surgeon at [facility]. After our conversation, we opted to proce ed with a transmetatarsal amputation as the patient has significantly disrupted and poor blood flow t o this portion of the forefoot. After the area was demarcated, I cut the tissue down with a 15 blade circumferentially around following my demarcation allowing based on a plantar flap. I then dissecte d circumferentially down to the mid metatarsal portion circumferentially dissecting the soft tissues around this using a combination of electrocautery and blunt dissection. Periosteal elevator was used to push back all periosteum circumferentially around all of the metatarsal areas to be cut. At this point, the plantar fascia was and left intact with adequate vascular pedicle, circumferent ially removing all of the tendinous connections and ligamentous attachments at this region. After th is was completed, I transected the metatarsals using a combination of bone cutter and a block rongeur to remove these metatarsals. After these were removed and the specimen was transected, it was sent off for pathologic examination. I then proceeded to remove any left fragmentation of small bone chip s around the metatarsals, which were fractured at this point from the bone cutting process. At this point, I then beveled all of the cut surfaces of the bones using a rasp circumferentially around and pushed the periosteum slightly back beyond the edges as well to allow for adequate bone presentation. I then irrigated the area copiously. Minimal hemostat was required. Bleeding was adequate at this level. Then, I brought a plantar flap and approximated over the anterior surface using 3-0 Vicryl s utures to the anterior fascia circumferentially around in a tension-free type fashion. I then closed the skin level with james and a sterile dressing placed over top. The patient tolerated procedure without incident or complication, and transferred to PACU in good condition. All counts were correc t at the end of the case. AUBREE/KASSIDY Voice ID: [id number] Report ID: [id number]
[2024-02-16] MEDS: METOPROLOL XL 25 MG TAB PO SCH (05:45)
[2024-02-16 06:17] LABS: Absolute Lymphocytes (CBC) 1.7 K/uL (0.7-4.9); Absolute Monocytes 0.1 K/uL (0.1-1.3); Absolute Neutrophil 13.1 K/uL (1.8-8.0); Basophils % 0.1 % (0-1.3); Hematocrit 31.6 % (36.0-45.0); Hemoglobin 10.2 g/dL (12.0-15.0); Lymphocytes % 11.5 % (15.3-44.8); MCH 27.8 pg (27.0-35.0); MCHC 32.2 g/dL (32.0-36.0); MCV 86.1 fL (80-100); MPV 7.9 fL (7.6-11.3); Monocytes % 0.8 % (3.3-12.3); Neutrophils % 87.6 % (41.7-73.7); Platelets 295 thou/uL (152-406); RBC Red Blood Cell Count 3.67 M/uL (3.86-4.86); Red Cell Distribution Width 14.3 % (12.1-15.2)
[2024-02-16 06:43] LABS: Albumin 2.5 g/dL (3.4-5.0); Albumin/Globulin Ratio 0.6 (1.1-1.8); Anion Gap 10.3 mEq/L (5.0-15.0); Bilirubin Total 0.4 mg/dL (0.2-1.0); Globulin 4.3 g/dL (2.3-3.5); Magnesium 1.5 mg/dL (1.6-2.4); Phosphorus 3.6 mg/dL (2.5-4.9); Potassium 4.3 mEq/L (3.5-5.1); Protein, Total 6.8 g/dL (6.4-8.2)
[2024-02-16] MEDS: Magnesium Sulfate 2gm IVPB 2 G/50 ML BAG IV ONE (07:19)
[2024-02-16 08:17] LABS: Blood Morphology Comment NOT SEEN (NOT SEEN); Platelet Estimate ADEQ; White Blood Cell Scan OK (OK)
[2024-02-16] MEDS: NA CHLORIDE 0.9% 500 ML IV ONE (08:25)
[2024-02-16] MEDS: lisinopriL 5 MG TAB PO SCH (09:07)
[2024-02-16] MEDS: INSULIN GLARGINE 100 UNIT/ML SQ SCH (09:08)
[2024-02-16] MEDS: ENOXAPARIN 40 MG/0.4 ML SQ SCH (09:13)
[2024-02-16 09:48] VITALS: O2SAT 98
--- NOTE | 2024-02-16 11:23 | P.DS ---
Admission Date: 02/15/24 Discharge Date: 02/16/24 Reason for Admission: Metatarsal amputation Consultations: Dr. Mensah Procedures: Metatarsal amputation Brief History of Present Illness: Ms. Stacy is a 78-year-old female with a past medical history of diabetes, hypertension, hyperlipidemia, and peripheral arterial disease. She has a remote amputation of all of her fifth toes and was admitted on 02/03/2024 with osteomyelitis of the left fifth toe status post amputation in October of the left fourth toe. She has been going to wound care for cellulitis of the left distal foot. Today on assessment, Dr. Mensah took her to the OR for all 5 distal metatarsal amputations. She had a regional block for pain control and complains of 0 pain at this time. Secondary to her extensive medical history, the hospitalist program was asked to admit the patient for observation. She states she has a wheelchair at home and gets home health care 3 times weekly. She declines PT/OT/SNF placement. At present she is hemodynamically stable. Surgical dressing to left foot clean, dry, and intact. We will likely discharge Ms. Stacy home in the morning to continue home health and wound care per Dr. Mensah's outpatient clinic. Hospital Course: Patient did well over the course of her admission. This morning's labs show mild CONCEPCIÓN from n.p.o. status/surgical procedure yesterday. Will bolus with 500 mL normal saline, patient tolerating p.o., has home health 3 times weekly in a wheelchair available. She is stable for discharge at this time. All questions have been answered to the best of our ability. She will follow-up with Dr. Mensah in his clinic for wound care. <Christine Ramirez - Last Filed: 02/16/24 11:24> Admission Date: 02/15/24 Discharge Date: 02/16/24 Hospital Course: Pt seen and examined. I agree with the note by the CLINICAL APPLICATION CONSULTANT. Pt was cleared for discharge by Gen surgeon. Pt will follow up with Dr. Mensah. Ok to discharge pt. <Yifan Will - Last Filed: 02/16/24 21:38> Disposition: ROUTINE DISCHARGE Discharge Condition: GOOD Vital Signs/Physical Exam: Temp Pulse Resp BP Pulse Ox 97.0 F 52 16 130/66 98 02/16/24 08:00 02/16/24 08:00 02/16/24 08:00 02/16/24 08:00 02/16/24 08:00 General: Alert, In no apparent distress, Oriented x3 HEENT: Atraumatic, Normocephalic Neck: Supple Respiratory: Normal air movement Cardiovascular: Normal pulses, Regular rate/rhythm Capillary refill: <2 Seconds Gastrointestinal: Normal bowel sounds Musculoskeletal: Other (Distal metatarsal amputation x 5 to the right remotely, distal metatarsal amputation x 5 to the left yesterday. Minimal serous drainage to the left surgical bandage) Integumentary: No rashes Neurological: Normal speech, Normal tone, Normal affect Lymphatics: No axilla or inguinal lymphadenopathy External genitalia: Deferred Rectal: Deferred Laboratory Data at Discharge: WBC 15.00 thou/uL (4.3-10.9) H 02/16/24 05:55 Hgb 10.2 g/dL (12.0-15.0) L 02/16/24 05:55 Hct 31.6 % (36.0-45.0) L 02/16/24 05:55 Plt Count 295 thou/uL (152-406) 02/16/24 05:55 PT 14.9 SECONDS (9.4-12.5) H 02/15/24 08:59 INR 1.34 02/15/24 08:59 APTT 32.1 SECONDS (24.3-36.9) 02/15/24 08:59 Sodium 135 mEq/L (136-145) L 02/16/24 05:55 Potassium 4.3 mEq/L (3.5-5.1) 02/16/24 05:55 BUN 23 mg/dL (7-18) H 02/16/24 05:55 Creatinine 1.23 mg/dL (0.55-1.02) H 02/16/24 05:55 Glucose 345 mg/dL (74-106) H 02/16/24 05:55 Phosphorus 3.6 mg/dL (2.5-4.9) 02/16/24 05:55 Magnesium 1.5 mg/dL (1.6-2.4) L 02/16/24 05:55 Total Bilirubin 0.4 mg/dL (0.2-1.0) 02/16/24 05:55 AST 12 U/L (15-37) L 02/16/24 05:55 ALT 16 U/L (13-56) 02/16/24 05:55 Alkaline Phosphatase 73 U/L (45-117) 02/16/24 05:55 Triglycerides 55 mg/dL (<150) 02/16/24 05:55 Cholesterol 128 mg/dL (<200) 02/16/24 05:55 HDL Cholesterol 64 mg/dL (40-60) H 02/16/24 05:55 Cholesterol/HDL Ratio 2.00 02/16/24 05:55 <Ramirez,Christine Chilango - Last Filed: 02/16/24 11:24> Vital Signs/Physical Exam: Temp Pulse Resp BP Pulse Ox 98.0 F 59 16 123/59 L 99 02/16/24 12:00 02/16/24 12:00 02/16/24 12:00 02/16/24 12:00 02/16/24 12:00 Laboratory Data at Discharge: WBC 15.00 thou/uL (4.3-10.9) H 02/16/24 05:55 Hgb 10.2 g/dL (12.0-15.0) L 02/16/24 05:55 Hct 31.6 % (36.0-45.0) L 02/16/24 05:55 Plt Count 295 thou/uL (152-406) 02/16/24 05:55 PT 14.9 SECONDS (9.4-12.5) H 02/15/24 08:59 INR 1.34 02/15/24 08:59 APTT 32.1 SECONDS (24.3-36.9) 02/15/24 08:59 Sodium 135 mEq/L (136-145) L 02/16/24 05:55 Potassium 4.3 mEq/L (3.5-5.1) 02/16/24 05:55 BUN 23 mg/dL (7-18) H 02/16/24 05:55 Creatinine 1.23 mg/dL (0.55-1.02) H 02/16/24 05:55 Glucose 345 mg/dL (74-106) H 02/16/24 05:55 Phosphorus 3.6 mg/dL (2.5-4.9) 02/16/24 05:55 Magnesium 1.5 mg/dL (1.6-2.4) L 02/16/24 05:55 Total Bilirubin 0.4 mg/dL (0.2-1.0) 02/16/24 05:55 AST 12 U/L (15-37) L 02/16/24 05:55 ALT 16 U/L (13-56) 02/16/24 05:55 Alkaline Phosphatase 73 U/L (45-117) 02/16/24 05:55 Triglycerides 55 mg/dL (<150) 02/16/24 05:55 Cholesterol 128 mg/dL (<200) 02/16/24 05:55 HDL Cholesterol 64 mg/dL (40-60) H 02/16/24 05:55 Cholesterol/HDL Ratio 2.00 02/16/24 05:55 <Yifan Will - Last Filed: 02/16/24 21:38> Diet: ADA Activity: Fall precautions <Ashley,Christine Chilango - Last Filed: 02/16/24 11:24> <Yifan Will - Last Filed: 02/16/24 21:38> Home Medications: Metformin HCl [Metformin ER Osmotic] 1,000 mg PO BIDWM 09/15/21 Gabapentin 300 mg PO TID 30 Days #90 cap 12/04/23 Rivaroxaban [Xarelto] 20 mg PO BID 02/02/24 Sitagliptin Phosphate [Januvia] 50 mg PO DAILY 02/02/24 Doxycycline Hyclate [Vibramycin] 100 mg PO BID #26 cap 02/06/24 levoFLOXacin [Levaquin*] 750 mg PO Q24H #13 tab 02/06/24 Atorvastatin Calcium 40 mg PO DAILY 02/15/24 Codeine/APAP [Tylenol #3*] 1 tab PO BID 02/15/24 Sulfamethoxazole/Trimethoprim [Bactrim 400-80 mg Tablet] 1 each PO BID 02/15/24 Hydrocodone 5/APAP 325 [[place] 5/325] 1 tab PO Q6H PRN 7 Days #30 tab 02/16/24 New Medications: Hydrocodone 5/APAP 325 [[place] 5/325] 1 tab PO Q6H PRN 7 Days #30 tab PRN Reason: Pain Physician Discharge Instructions: Patient did well over the course of her admission. This morning's labs show mild CONCEPCIÓN from n.p.o. status/surgical procedure yesterday. Will bolus with 500 mL normal saline, patient tolerating p.o., has home health 3 times weekly in a wheelchair available. She is stable for discharge at this time. All questions have been answered to the best of our ability. She will follow-up with Dr. Mensah in his clinic for wound care. Continue home medicines as previously prescribed GOAL: Clear understanding of disease process Diet: ADA, low sodium Activity: Fall precautions INSTRUCTIONS: Physician Discharge Instructions: Okay to DC IV and DC home Follow-up with primary care provider in 1 to 2 weeks Follow-up with Dr. Mensah in 1 week Please call the inpatient unit for any questions or concerns regarding hospital stay Return to the ER for worsening symptoms Followup: Carson Mensah MD [Primary Care Provider] -
[2024-02-16 12:39] VITALS: BP 123/59; TEMP 98
[2024-02-16] MEDS ORDERED: INSULIN LISPRO 100 UNIT/1 ML SQ SCH ×2 (13:00→14:00)
[2024-02-16] MEDS: INSULIN LISPRO 100 UNIT/1 ML SQ SCH (13:45)
== END 2024-02-16 15:06 | disposition home or self-care (01) ==
LOC: OR 11:38 → 2ND 13:10
PROVIDERS: ADMIT Hospitalist; ATTEND Hospitalist
PROC: 0Y6N0ZB Detachment at Left Foot, Partial 2nd Ray, Open Approach (ICD-10-PCS; 2024-02-15)
PROC: 0Y6N0ZC Detachment at Left Foot, Partial 3rd Ray, Open Approach (ICD-10-PCS; 2024-02-15)
PROC: 0Y6N0ZD Detachment at Left Foot, Partial 4th Ray, Open Approach (ICD-10-PCS; 2024-02-15)
PROC: 0Y6N0ZF Detachment at Left Foot, Partial 5th Ray, Open Approach (ICD-10-PCS; 2024-02-15)
PROC: 0Y6N0Z9 Detachment at Left Foot, Partial 1st Ray, Open Approach (ICD-10-PCS; principal; 2024-02-15 13:30)
DX: I73.9 Peripheral vascular disease, unspecified (principal); M86.8X7 Other osteomyelitis, ankle and foot; E11.9 Type 2 diabetes mellitus without complications; I10 Essential (primary) hypertension; E78.5 Hyperlipidemia, unspecified
CPT/HCPCS: 85025; 36415; 83735; 84100; 85610; 80061; 82947 ×7; 88305; 88311; 85730; 83036; 80053; 94010; 94640; 28805; J3475; J2704; J7644 ×2; J2001; J1650; J3010 ×2; J1100 ×2; J0171 ×2; J1170; J7605 ×2; J7030 ×2; J2405; J7040; J0696 ×2; G0378; G0379

== ENCOUNTER 2024-03-27 11:35 | Day surgery (SDC) | payer OTHER ==
[2024-03-27] MEDS: NA CHLORIDE 0.9% 1,000 ML ONE (11:45)
[2024-03-27] MEDS ORDERED: PIPER TAZO 3.375 GM in NA CHLORIDE 0.9% 100 ML IV ONE (12:00)
[2024-03-27 12:04] LABS: Absolute Basophils 0.1 K/uL (0-0.5); Absolute Eosinophils 0.2 K/uL (0-0.5); Absolute Lymphocytes (CBC) 2.8 K/uL (0.7-4.9); Absolute Monocytes 0.5 K/uL (0.1-1.3); Absolute Neutrophil 7.2 K/uL (1.8-8.0); Basophils % 0.7 % (0-1.3); Eosinophils % 2.1 % (0-4.4); Hematocrit 34.6 % (36.0-45.0); Hemoglobin 11.2 g/dL (12.0-15.0); Lymphocytes % 25.7 % (15.3-44.8); MCH 28.2 pg (27.0-35.0); MCHC 32.4 g/dL (32.0-36.0); MCV 86.9 fL (80-100); MPV 7.6 fL (7.6-11.3); Monocytes % 4.8 % (3.3-12.3); Neutrophils % 66.7 % (41.7-73.7); Platelets 359 thou/uL (152-406); RBC Red Blood Cell Count 3.98 M/uL (3.86-4.86); Red Cell Distribution Width 15.6 % (12.1-15.2)
[2024-03-27 12:14] LABS: PT Prothrombin Time 16.1 SECONDS (9.4-12.5); PTT, Activated Partial Thromb 41.3 SECONDS (24.3-36.9); Protime INR 1.45
[2024-03-27] MEDS ORDERED: propofoL 200 MG/20 ML VIAL IV ONE (12:29)
[2024-03-27] MEDS ORDERED: LIDOCAINE 1% MPF 5 ML VIAL ONE (12:29)
[2024-03-27] MEDS ORDERED: MIDAZOLAM HCL 2 MG/2 ML INJ ONE (12:30)
[2024-03-27] MEDS ORDERED: FENTANYL CITR 100 MCG/2 ML ONE (12:30)
[2024-03-27] MEDS ORDERED: EPHEDRINE SULF 50 MG/ML VIAL ONE (14:00)
[2024-03-27] MEDS ORDERED: ONDANSETRON 4 MG/2 ML VIAL ONE (14:10)
[2024-03-27] MEDS: LIDOCAINE HCL/EPINEPHRINE 20 ML MDV ONE (14:16)
--- NOTE | 2024-03-27 14:32 | P.OP ---
Preoperative diagnosis: LEFT Foot Chronic Wound Postoperative diagnosis: LEFT Foot Chronic Wound Primary procedure: Debridement of LEFT Foot Chronic Wound Anesthesia: GETA + Local Estimated blood loss: <5cc Specimen: Cultures, Debridement Tissue Findings: Superficial necrosis into fascia Complications: None Transferred to: Recovery Room Condition: Good
[2024-03-27] MEDS: FENTANYL CITR 100 MCG/2 ML ONE (14:52)
[2024-03-27] MEDS: KETOROLAC 30 MG/ML INJ ONE (15:38)
[2024-03-27] MEDS: HYDROCODONE/APAP 7.5/325 MG TAB ONE (16:00)
[2024-03-27 16:51] VITALS: BP 133/94; TEMP 97.9; O2SAT 98
--- NOTE | 2024-03-27 21:30 | OP ---
Date of Procedure: 03/27/2024 Surgeon: Carson Mensah MD, Preoperative Diagnosis: Left foot chronic wound. Postoperative Diagnosis: Left foot chronic wound. Procedure Performed: Debridement of left foot chronic wound. Anesthesia: General endotracheal plus local with 1% lidocaine with epinephrine. Estimated Blood Loss: Less than 5 cc. Specimen: Culture sent for both aerobic and anaerobic speciation, debrided tissue. Findings: Superficial necrosis in between the plantar fascia, not involving any other obvious struct ures at this point. Complications: None. Disposition: The patient was transferred to recovery room in good condition. Procedure In Detail: After informed consent was obtained, patient was brought to the operating room, prepped and draped in usual sterile fashion. After adequate anesthesia was achieved, I proceeded to remove all nonviable necrotic tissue from the superficial edges of the transmetatarsal amputation si te on the left foot on the medial and lateral aspects. The midportion appeared to be healed well wit h good apposition of the skin and good healing affect. These areas involved where the medial and lat eral aspects were both sharply debrided using tenotomy scissors as well as minimal electrocautery in the area. I got down to bleeding tissue and removed all nonviable tissue. The area was copiously ir rigated on both sides after cultures were sent for aerobic and speciation. I then partially reapprox imated the medial and lateral edges of the wound using 3-0 nylon sutures and then packed the medial a nd lateral wounds with 0.25 inch plain packing with Vashe soaked packing material and then a sterile dressing was placed over top. The patient tolerated the procedure without incident or complication, transferred to PACU in good condition. All counts were correct at the end of the case. AUBREE/KASSIDY Voice ID: [id number] Report ID: [id number]
== END 2024-03-27 16:45 | disposition home or self-care (01) ==
LOC: OR 11:35
PROVIDERS: ATTEND Surgery
PROC: 0JDR3ZZ Extraction of Left Foot Subcutaneous Tissue and Fascia, Percutaneous Approach (ICD-10-PCS; principal; 2024-03-27 14:00)
DX: S91.302A Unspecified open wound, left foot, initial encounter (principal); I96 Gangrene, not elsewhere classified; B95.7 Other staphylococcus as the cause of diseases classified elsewhere
CPT/HCPCS: 11042; 87070; 85025; 80048; 36415; 87205; 85610; 82947; 88304; 85730; 87075; J2704; J2001; J2543; J3010 ×2; J2405; J7030; 87077; 87186; J2250

== ENCOUNTER 2024-07-04 08:16 | Day surgery (SDC) | payer OTHER ==
[2024-07-04] MEDS: NA CHLORIDE 0.9% 1,000 ML ONE (09:35)
[2024-07-04 09:37] LABS: Absolute Eosinophils 0.1 K/uL (0-0.5); Absolute Lymphocytes (CBC) 3.6 K/uL (0.7-4.9); Absolute Monocytes 0.6 K/uL (0.1-1.3); Absolute Neutrophil 5.7 K/uL (1.8-8.0); Basophils % 0.5 % (0-1.3); Eosinophils % 1.3 % (0-4.4); Hematocrit 35.8 % (36.0-45.0); Hemoglobin 12.2 g/dL (12.0-15.0); Lymphocytes % 35.6 % (15.3-44.8); MCH 28.9 pg (27.0-35.0); MCHC 34.1 g/dL (32.0-36.0); MCV 84.7 fL (80-100); MPV 8.1 fL (7.6-11.3); Monocytes % 6.3 % (3.3-12.3); Neutrophils % 56.3 % (41.7-73.7); Platelets 288 thou/uL (152-406); RBC Red Blood Cell Count 4.23 M/uL (3.86-4.86); Red Cell Distribution Width 13.9 % (12.1-15.2)
[2024-07-04 09:55] LABS: Anion Gap 4.7 mEq/L (5.0-15.0); PT Prothrombin Time 11.5 SECONDS (9.4-12.5); PTT, Activated Partial Thromb 29.4 SECONDS (24.3-36.9); Potassium 3.7 mEq/L (3.5-5.1); Protime INR 1.1
[2024-07-04] MEDS ORDERED: propofoL 200 MG/20 ML VIAL IV ONE (10:08)
[2024-07-04] MEDS ORDERED: FENTANYL CITR 100 MCG/2 ML ONE (10:09)
[2024-07-04] MEDS ORDERED: Phenylephrine HCl 10 MG/ML 1 ML VIAL ONE (10:31)
[2024-07-04] MEDS ORDERED: EPHEDRINE SULF 50 MG/ML VIAL ONE (10:33)
[2024-07-04] MEDS: CEFAZOLIN SODIUM 2 GM/VIAL ONE (10:41)
[2024-07-04] MEDS: LIDOCAINE HCL/EPINEPHRINE 20 ML MDV ONE (10:44)
[2024-07-04] MEDS ORDERED: ONDANSETRON 4 MG/2 ML VIAL ONE (10:46)
--- NOTE | 2024-07-04 10:59 | P.OP ---
Preoperative diagnosis: LEFT Foot TMA Chronic Wound Postoperative diagnosis: LEFT Foot TMA Chronic Wound Primary procedure: Debridement of LEFT Foot TMA Chronic Wound Anesthesia: GETA + Local Estimated blood loss: <2cc Specimen: Cultures, Debridement Tissue Findings: Superficial Necrosis ~ 1.5 x 1.5 x 1.7 cm Complications: None Transferred to: Recovery Room Condition: Good
[2024-07-04 11:14] VITALS: TEMP 97
--- NOTE | 2024-07-04 11:47 | OP ---
Date of Procedure: 07/04/2024 Surgeon: Nicole Mensah MD, Preoperative Diagnosis: Left foot transmetatarsal amputation, chronic wound on the medial aspect. Postoperative Diagnosis: Left foot transmetatarsal amputation, chronic wound on the medial aspect. Procedure: Debridement of left foot transmetatarsal amputation, chronic wound. Anesthesia: General endotracheal plus local 1% lidocaine. Estimated Blood Loss: 2 cc. Specimen: Culture sent both aerobic and anaerobic speciation. Debridement tissue. Findings: Superficial necrosis approximately 1.5 x 1.5 x 1.7 cm on the former great toe on the media l aspect of the left foot. Complications: None. Disposition: Patient was transferred to recovery room in good condition. Procedure In Detail: After informed consent was obtained, the patient was prepped and draped in usua l sterile fashion. After adequate anesthesia was achieved, I debrided the area of the left great toe previous amputation site on the TMA scar line where chronic wound was evident. Culture sent both ae robic and anaerobic speciation. The wound was debrided down to good healthy viable tissue. The woun d was then packed with Vashe soaked gauze and a sterile dressing placed over top. The patient tolera nicole procedure without incident or complication, and transferred to PACU in good condition. All counts were correct at the end of the c ase. TK/MODL Voice ID: [id number] Report ID: [id number]
[2024-07-04] MEDS: HYDROCODONE/APAP 7.5/325 MG TAB ONE (12:36)
[2024-07-04 14:40] VITALS: BP 153/60; O2SAT 97
== END 2024-07-04 12:56 | disposition home or self-care (01) ==
LOC: OR 08:16
PROVIDERS: ATTEND Surgery
PROC: 0JDR3ZZ Extraction of Left Foot Subcutaneous Tissue and Fascia, Percutaneous Approach (ICD-10-PCS; principal; 2024-07-04 10:45)
DX: M86.8X7 Other osteomyelitis, ankle and foot (principal); S91.302A Unspecified open wound, left foot, initial encounter; Z89.432 Acquired absence of left foot
CPT/HCPCS: 87070; 85025; 80048; 36415; 87205; 85610; 82947; 88304; 85730; 87075; 87077; 87186; 11042; J2704; J2371; J3010; J2405; J7030

== ENCOUNTER 2024-09-10 08:52 | Emergency (ER) | payer OTHER ==
--- NOTE | 2024-09-10 09:11 | ER ---
Nurse's Notes [facility] Name: Maria Isabel Stacy Age: 79 yrs Sex: Female : 1945 Arrival Date: 09/10/2024 Time: 08:52 Bed IW1 Private MD: Diagnosis: Rash and other nonspecific skin eruption Presentation: 09/10 09:07 Chief complaint: Patient states: Rash started to R lower abdomen for 2 days. Noticed to ll1 R upper leg also. Coronavirus screen: Client denies travel out of the [place] in the last 14 days. At this time, the client does not indicate any symptoms associated with coronavirus-19. Ebola Screen: Patient denies travel to an Ebola-affected area in the 21 days before illness onset. Initial Sepsis Screen: Does the patient meet any 2 criteria? No. Patient's initial sepsis screen is negative. Does the patient have a suspected source of infection? No. Patient's initial sepsis screen is negative. Risk Assessment: Do you want to hurt yourself or someone else? Patient reports no desire to harm self or others. Onset of symptoms was September 09, 2024. 09:07 Method Of Arrival: Wheelchair ll1 09:07 Acuity: DORCAS 4 ll1 Triage Assessment: 09:08 General: Appears in no apparent distress. Behavior is calm, cooperative, appropriate ll1 for age. Pain: Denies pain. Derm: Reports rash to R lower abdomen and R upper leg. Historical: - Allergies: 09:04 No Known Allergies; ll1 - PMHx: 09:04 diabetes mellitus; Hypertensive disorder; neuropathy; ll1 - PSHx: 09:04 left fourth toe amputation; R foot all toes amputated; ll1 - Immunization history:: Adult Immunizations up to date. - Infectious Disease History:: Denies. - Social history:: Smoking status: Patient denies any tobacco usage or history of. Screenin:15 [facility] ED Fall Risk Assessment (Adult) History of falling in the last 3 months, ll1 including since admission No falls in past 3 months (0 pts) Confusion or Disorientation No (0 pts) Intoxicated or Sedated No (0 pts) Impaired Gait No (0 pts) Mobility Assist Device Used Yes (1 pt) Altered Elimination No (0 pt) Score/Fall Risk Level 0 - 2 = Low Risk Maintained a safe environment, Hourly rounding (assess needs \T\ fall precautionary measures) done. Abuse screen: Denies threats or abuse. Nutritional screening: No deficits noted. Tuberculosis screening: No symptoms or risk factors identified. Assessment: 09:15 Reassessment: No changes from previously documented assessment. Patient and/or family ll1 updated on plan of care and expected duration. Pain level reassessed. Vital Signs: 09:07 BP 166 / 94; Pulse 63; Resp 17; Pulse Ox 96% ; Pain 0/10; ll1 09:07 Pain Scale: Adult ll1 ED Course: 09:02 Patient arrived in ED. im 09:02 Kimani Pickard MD is Attending Physician. ec2 09:04 Arm band placed on Patient placed in an exam room, on a stretcher. ll1 09:08 Triage completed. ll1 09:15 Patient has correct armband on for positive identification. Provided Education on: ll1 return to ED for worsening symptoms. 09:15 No provider procedures requiring assistance completed. Patient did not have IV access ll1 during this emergency room visit. Administered Medications: No medications were administered Medication: 09:39 VIS not applicable for this client. ll1 Outcome: 09:11 Discharge ordered by . ec2 09:15 Patient left the ED. ll1 09:15 Discharged to home ll1 09:15 Discharged to home via wheelchair, 09:15 Condition: stable 09:15 Discharge instructions given to patient, family, Instructed on discharge instructions, follow up and referral plans. medication usage, Demonstrated understanding of instructions, follow-up care, medications, Prescriptions given X 1, Signatures: Kaushik Ryan RN RN ll1 Ambar Munoz Kimani Pickard MD MD ec2 Corrections: (The following items were deleted from the chart) 09:10 09:07 Pulse 63bpm; Resp 17bpm; Pulse Ox 96%; ll1 ll1
--- NOTE | 2024-09-10 09:11 | EDPHYS ---
Physician Documentation [facility] Name: Maria Isabel Stacy Age: 79 yrs Sex: Female : 1945 Arrival Date: 09/10/2024 Time: 08:52 Bed IW1 Private MD: ED Physician Kimani Pickard HPI: 09/10 09:12 This 79 yrs old Female presents to ER via Wheelchair with complaints of Rash. ec2 09:12 Patient arrives today d/t concern for a rash. Patient reports that she had noticed a ec2 rash to the right abdomen and right lower extremity. Patient reports that she has not had any fevers, no nausea or vomiting, reports that she has not applied any creams to the area. Patient reports that she is having significant itching. Patient reports that she does do injections to the right abdomen. Patient reports otherwise no other concerns.. Historical: - Allergies: 09:04 No Known Allergies; ll1 - PMHx: 09:04 diabetes mellitus; Hypertensive disorder; neuropathy; ll1 - PSHx: 09:04 left fourth toe amputation; R foot all toes amputated; ll1 - Immunization history:: Adult Immunizations up to date. - Infectious Disease History:: Denies. - Social history:: Smoking status: Patient denies any tobacco usage or history of. ROS: 09:13 Constitutional: as per hpi ec2 Exam: 09:13 Constitutional: GEN: NAD Head: atraumatic Eyes: EOMI Ears: External ears are ec2 normal. CV: regular rate LUNGS: no respiratory distress ABD: non-distended SKIN: Nonspecific rash noted to the right abdomen and right lower extremity, no marked erythema, no fluctuance appreciated. MSK: no evidence of trauma Vital Signs: 09:07 BP 166 / 94; Pulse 63; Resp 17; Pulse Ox 96% ; Pain 0/10; ll1 09:07 Pain Scale: Adult ll1 MDM: 09:04 Medical Screening Exam initiated ec2 09:14 Data reviewed: vital signs, nurses notes. ED course: Patient arrives today for a rash ec2 of the right abdomen and right lower extremity. Examination yields well-appearing nontoxic immuno with a wound which is otherwise in no acute distress. Will start the patient on topical steroids, instructed the patient on Benadryl and told the patient to follow-up with PCP. Consider processes such as cellulitis, contact dermatitis however low suspicion given lack of associated history, does report that she does inject in the right abdomen however does not appear to be focal in one area and also extends to the right lower extremities I doubt this is.. Administered Medications: No medications were administered Disposition Summary: 09/10/24 09:11 Discharge Ordered Notes: Location: Home ec2 Condition: Stable ec2 Diagnosis - Rash and other nonspecific skin eruption ec2 Followup: ec2 - With: Private Physician - When: - Reason: Re-evaluation by your physician Discharge Instructions: - Discharge Summary Sheet ec2 - Rash, Adult, [id number] ec2 Forms: - Medication Reconciliation Form ec2 - Antibiotic Education ec2 - Prescription Opioid Use ec2 - Patient Portal Instructions ec2 - Leadership Thank You Letter ec2 Prescriptions: - Hydrocortisone 0.5 % Topical Cream - apply 1 application TOPICAL route every 12 hours As needed; 30 gram; Refills: ec2 0, Product Selection Permitted Signatures: Kaushik Ryan RN RN ll1 Kimani Pickard MD MD ec2
[2024-09-10 09:18] VITALS: BP 166/94; O2SAT 96
== END 2024-09-10 09:15 | disposition home or self-care (01) ==
LOC: ER 08:52
DX: R21 Rash and other nonspecific skin eruption (principal)

== ENCOUNTER 2024-09-17 12:43 | Emergency (ER) | payer OTHER ==
--- NOTE | 2024-09-17 13:43 | RAD REPORT ---
EXAMINATION: Head C Spine Mpr Wo Con CLINICAL INDICATION: Female, 79 years old. fall TECHNIQUE: Axial CT images from the skull base to the vertex without intravenous contrast. Axial CT i mages through the cervical spine were obtained without intravenous contrast. Sagittal and coronal reformatted images were created from the data set. Coronal and sagittal reformatted images were creat ed from the data set. One or more of the following dose reduction techniques were used: Automated exposure control, adjustment of the mA and/or kV according to patient size, and/or iterative reconstr uction. Unless otherwise specified, incidental findings do not require dedicated imaging follow-up. [id number]. COMPARISON: 11/07/2020 FINDINGS: Head: INTRACRANIAL: No acute intracranial hemorrhage. No hydrocephalus. No mass effect or midline shift. No significant white matter disease. VASCULATURE: No visualized abnormalities in the arteries or dural venous sinuses. SCALP/SKULL: No calvarial fracture identified. No acute soft tissue abnormality. SINUSES: The visualized paranasal sinuses are mostly clear. No significant mastoid fluid. Cervical spine: ALIGNMENT: The cervical spine has normal alignment without scoliosis or spondylolisthesis. BONE: Vertebral body heights are maintained. No aggressive osseous lesions. DEGENERATIVE: Multilevel cervical spondylosis with evidence of bilateral neural foraminal narrowing. No high grade central spinal stenosis. There is moderate neural foraminal narrowing on the left at C3-4 and C5-6 and on the right at C5-6. SOFT TISSUE: No significant abnormalities in the soft tissue of the neck. The visualized lung apices are clear. IMPRESSION: No acute intracranial abnormality. No acute fracture or traumatic malalignment of the cervical spine.
--- NOTE | 2024-09-17 13:50 | RAD REPORT ---
EXAM: Thoracic Spine W/o Cont HISTORY:back pain COMPARISON: None TECHNIQUE: Multiple contiguous axial images were obtained in a CT of the thoracic spine without contr ast. Sagittal and coronal reformats were performed. One or more of the following dose reduction techniques were used: Automated exposure control, adjustment of the mA and/or kV according to patient size, and/or iterative reconstruction. Unless otherwise specified, incidental findings do not require dedicated imaging follow-up. [id number]. FINDINGS: Slight vertebral body height loss present at T4 consistent with an age-indeterminate compression frac ture. There is less than 20% loss of height loss. No other fractures are identified. No significant focal degenerative changes. The prevertebral and paraspinal soft tissues are unremarkable. IMPRESSION: Slight compression deformity at T4 could represent an age-indeterminate compression fract ure with less than 20% loss of height. Correlate with site of pain.
--- NOTE | 2024-09-17 14:48 | ER ---
Nurse's Notes [facility] Name: Maria Isabel Stacy Age: 79 yrs Sex: Female : 1945 Arrival Date: 09/17/2024 Time: 12:43 Bed IW1 Private MD: Diagnosis: T4 Compression fracture;Fall on same level, unspecified;Rash and other nonspecific skin eruption Presentation: 09/17 12:52 Chief complaint: Patient states: she was here a couple weeks ago for some sores on her iw right lower abdomen and right leg, it has not gone away, she slipped and fell on her back four days ago , now she still has back pain. 12:52 Acuity: DORCAS 3 iw 12:54 Initial Sepsis Screen: Does the patient meet any 2 criteria? No. Patient's initial iw sepsis screen is negative. Does the patient have a suspected source of infection? No. Patient's initial sepsis screen is negative. Risk Assessment: Do you want to hurt yourself or someone else? Patient reports no desire to harm self or others. 12:54 Method Of Arrival: Wheelchair iw 12:55 Coronavirus screen: At this time, the client does not indicate any symptoms associated iw with coronavirus-19. Ebola Screen: No symptoms or risks identified at this time. Onset of symptoms was September 13, 2024. Triage Assessment: 14:59 General: Appears in no apparent distress. Behavior is calm, cooperative, appropriate ll1 for age. Historical: - Allergies: 12:55 No Known Allergies; iw - Home Meds: 12:55 aspirin 81 mg Oral chew 1 tab once daily [Active]; atorvastatin 40 mg Oral tablet iw nightly [Active]; gabapentin 300 mg Oral capsule 2 times per day [Active]; Januvia 50 mg Oral tablet once [Active]; lisinopril 5 mg Oral tablet nightly [Active]; metformin 1 Oral tablet 2 times per day [Active]; metoprolol tartrate 25 mg Oral tablet once [Active]; - PMHx: 12:55 diabetes mellitus; Hypertensive disorder; neuropathy; iw - PSHx: 12:55 left fourth toe amputation; R foot all toes amputated; iw - Immunization history:: Adult Immunizations up to date. - Infectious Disease History:: Denies. - Social history:: Smoking status: Patient denies any tobacco usage or history of. Screenin:59 [facility] ED Fall Risk Assessment (Adult) History of falling in the last 3 months, ll1 including since admission Yes- physiologic fall (2 pts) Confusion or Disorientation No (0 pts) Intoxicated or Sedated No (0 pts) Impaired Gait Yes (1 pt) Mobility Assist Device Used Yes (1 pt) Altered Elimination Yes (1 pt) Score/Fall Risk Level 3 or more points = High Risk Maintained a safe environment, Hourly rounding (assess needs \T\ fall precautionary measures) done, Used ambulatory aids as needed (educated on \T\ assisted with). Abuse screen: Denies threats or abuse. Nutritional screening: No deficits noted. Tuberculosis screening: No symptoms or risk factors identified. Assessment: 14:55 General: Appears uncomfortable, Behavior is calm, cooperative, appropriate for age. ll1 Pain: Complains of pain in back Quality of pain is described as aching. Derm: Reports sores to leg. Musculoskeletal: Reports pain in back. Vital Signs: 12:55 BP 138 / 83; Pulse 73; Resp 16; Temp 97.2; Pulse Ox 100% ; Weight 63.5 kg; Height 5 ft. iw 4 in. ; Pain 7/10; 12:55 Body Mass Index 24.03 (63.50 kg, 162.56 cm) iw 12:55 Pain Scale: Adult iw ED Course: 12:49 Patient arrived in ED. im 12:52 Barron Quezada DO is Attending Physician. ms3 12:54 Triage completed. iw 12:56 Arm band placed on. iw 13:36 CT Head C Spine In Process Unspecified. EDMS 13:36 CT Thoracic Spine Wo Cont In Process Unspecified. EDMS 14:47 John Grover DO is Referral Physician. ms3 14:59 No provider procedures requiring assistance completed. Patient did not have IV access ll1 during this emergency room visit. 15:25 Patient has correct armband on for positive identification. Provided Education on: ll1 return to ED for worsening symptoms. Administered Medications: No medications were administered Medication: 15:26 VIS not applicable for this client. ll1 Outcome: 14:47 Discharge ordered by . ms3 14:59 Patient left the ED. ll1 14:59 Discharged to home via wheelchair, ll1 14:59 Condition: stable 14:59 Discharge instructions given to patient, family, Instructed on discharge instructions, follow up and referral plans. medication usage, Demonstrated understanding of instructions, follow-up care, medications, Prescriptions given X 1, Signatures: Dispatcher [employer] Gisselle Cottrell RN RN iw Lewis, Lynsay, RN RN ll1 Barron Quezada DO DO ms3 Ambar Munoz
--- NOTE | 2024-09-17 14:48 | EDPHYS ---
Physician Documentation [facility] Name: Maria Isabel Stacy Age: 79 yrs Sex: Female : 1945 Arrival Date: 09/17/2024 Time: 12:43 Bed IW1 Private MD: ED Physician Barron Quezada HPI: 09/17 14:50 This 79 yrs old Female presents to ER via Wheelchair with complaints of Rash, ms3 Fall Injury. 14:50 79-year-old female with past medical history of diabetes, hypertension, neuropathy ms3 presents to the emergency department for rash on her right abdomen and thigh. Patient states she has previously had this rash and was given cream. Patient also notes she fell 3 days ago in her backyard. Patient states she is having mid back pain. Patient denies numbness or weakness.. Historical: - Allergies: 12:55 No Known Allergies; iw - Home Meds: 12:55 aspirin 81 mg Oral chew 1 tab once daily [Active]; atorvastatin 40 mg Oral tablet iw nightly [Active]; gabapentin 300 mg Oral capsule 2 times per day [Active]; Januvia 50 mg Oral tablet once [Active]; lisinopril 5 mg Oral tablet nightly [Active]; metformin 1 Oral tablet 2 times per day [Active]; metoprolol tartrate 25 mg Oral tablet once [Active]; - PMHx: 12:55 diabetes mellitus; Hypertensive disorder; neuropathy; iw - PSHx: 12:55 left fourth toe amputation; R foot all toes amputated; iw - Immunization history:: Adult Immunizations up to date. - Infectious Disease History:: Denies. - Social history:: Smoking status: Patient denies any tobacco usage or history of. ROS: 14:50 Constitutional: Negative for fever, and chills. Cardiovascular: Negative for chest ms3 pain, and palpitations. Respiratory: Negative for shortness of breath, cough, wheezing, and pleuritic chest pain, Abdomen/GI: Negative for abdominal pain, nausea, vomiting, diarrhea, and constipation, MS/Extremity: Negative for injury and deformity, 14:50 Back: Positive for Back pain, 14:50 Skin: Positive for rash, Exam: 14:50 Constitutional: This is a well developed, well nourished patient who is awake, alert, ms3 and in no acute distress. Cardiovascular: Regular rate and rhythm with a normal S1 and S2. No gallops, murmurs, or rubs. Normal PMI, no JVD. No pulse deficits. Respiratory: Lungs have equal breath sounds bilaterally, clear to auscultation and percussion. No rales, rhonchi or wheezes noted. No increased work of breathing, no retractions or nasal flaring. Abdomen/GI: Soft, non-tender, with normal bowel sounds. No distension or tympany. No guarding or rebound. No evidence of tenderness throughout. MS/ Extremity: Pulses equal, no cyanosis. Neurovascular intact. Full, normal range of motion. 14:50 Back: pain, that is moderate, ROM is normal, normal spinal alignment noted, vertebral tenderness, is appreciated at T4, 14:50 Skin: rash can be described as urticarial, Vital Signs: 12:55 BP 138 / 83; Pulse 73; Resp 16; Temp 97.2; Pulse Ox 100% ; Weight 63.5 kg; Height 5 ft. iw 4 in. ; Pain 7/10; 12:55 Body Mass Index 24.03 (63.50 kg, 162.56 cm) iw 12:55 Pain Scale: Adult iw MDM: 13:15 Medical Screening Exam initiated ms3 14:50 Differential diagnosis: allergic reaction, Compression fracture versus musculoskeletal ms3 pain. Data reviewed: vital signs, nurses notes, radiologic studies, and as a result, I will discharge patient. I considered the following discharge prescriptions or medication management in the emergency department See Rx. Counseling: I had a detailed discussion with the patient and/or guardian regarding the historical points, exam findings, and any diagnostic results supporting the discharge/admit diagnosis, radiology results, the need for outpatient follow up, to return to the emergency department if symptoms worsen or persist or if there are any questions or concerns that arise at home. Special discussion: I discussed with the patient/guardian in detail that at this point there is no indication for admission to the hospital. It is understood, however, that if the symptoms persist or worsen the patient needs to return immediately for re-evaluation. ED course: Discussed CT results with patient. Patient to follow-up with Dr. Grover and Dr. King in 2 to 3 days. All questions were answered. Return precautions discussed include worsening symptoms, or any other concerns.. 09/17 13:17 Order name: CT Head C Spine; Complete Time: 14:25 ms3 04 13:17 Order name: CT Thoracic Spine Wo Cont; Complete Time: 14:25 ms3 Administered Medications: No medications were administered Disposition Summary: 09/17/24 14:47 Discharge Ordered Notes: Location: Home ms3 Condition: Stable ms3 Diagnosis - T4 Compression fracture ms3 - Fall on same level, unspecified ms3 - Rash and other nonspecific skin eruption ms3 Followup: ms3 - With: John Grover DO - When: 2 - 3 days - Reason: Recheck today's complaints Discharge Instructions: - Discharge Summary Sheet ms3 - Spinal Compression Fracture ms3 - Fall Prevention in the Home, Adult ms3 - Rash, Adult ms3 Forms: - Medication Reconciliation Form ms3 - Antibiotic Education ms3 - Prescription Opioid Use ms3 - Patient Portal Instructions ms3 - Leadership Thank You Letter ms3 Prescriptions: - hydrocortisone 1 % Topical ointment - apply 1 application TOPICAL route 2 to 4 times per day; 30 gram; Refills: 0, ms3 Product Selection Permitted Signatures: Dispatcher [employer] Gisselle Cottrell, RN RN Barron Chand DO DO ms3 Corrections: (The following items were deleted from the chart) 13:17 13:17 Head C Spine MPR Wo Con+CT.RAD.BRZ ordered. EDMS EDMS 13:17 13:17 Thoracic Spine WO Cont+CT.RAD.BRZ ordered. EDMS EDMS
[2024-09-17 15:22] VITALS: BP 138/83; TEMP 97.2; O2SAT 100
== END 2024-09-17 14:59 | disposition home or self-care (01) ==
LOC: ER 12:43
DX: S22.040A Wedge compression fracture of fourth thoracic vertebra, initial encounter for closed fracture (principal); R21 Rash and other nonspecific skin eruption; W18.30XA Fall on same level, unspecified, initial encounter; E11.9 Type 2 diabetes mellitus without complications; I10 Essential (primary) hypertension; Z79.82 Long term (current) use of aspirin; Z89.422 Acquired absence of other left toe(s); Z89.421 Acquired absence of other right toe(s)
CPT/HCPCS: 70450; 72125; 72128; 99283

== ENCOUNTER 2025-01-28 10:17 | Day surgery (SDC) | payer OTHER ==
[2025-01-28] MEDS ORDERED: NA CHLORIDE 0.9% 1,000 ML ONE (10:50)
[2025-01-28] MEDS ORDERED: ONDANSETRON 4 MG/2 ML VIAL ONE (11:27)
[2025-01-28] MEDS ORDERED: LIDOCAINE 2% MPF 5 ML VIAL ONE (11:27)
[2025-01-28] MEDS ORDERED: FENTANYL CITR 100 MCG/2 ML ONE (11:27)
[2025-01-28 11:28] LABS: Absolute Lymphocytes (CBC) 3.3 K/uL (0.7-4.9); Hematocrit 36.9 % (36.0-45.0); Hemoglobin 12.4 g/dL (12.0-15.0); MCH 28.4 pg (27.0-35.0); MCHC 33.7 g/dL (32.0-36.0); MCV 84.4 fL (80-100); MPV 7.7 fL (7.6-11.3); Nucleated RBC Absolute Count 0.0 (0-0); Nucleated Red Blood Cells % 0.0 % (0-0); RBC Red Blood Cell Count 4.37 M/uL (3.86-4.86); White Blood Count 16.00 thou/uL (4.3-10.9)
[2025-01-28 11:45] LABS: Anion Gap 8.4 mEq/L (5.0-15.0); BUN Blood Urea Nitrogen 13.0 mg/dL (7-18); Glucose Level 220.0 mg/dL (74-106); Potassium 3.4 mEq/L (3.5-5.1)
[2025-01-28] MEDS: CEFAZOLIN SODIUM 2 GM/VIAL ONE (11:59)
[2025-01-28] MEDS ORDERED: COLLAGENASE 30 GM OINTMENT TOP ONE (12:01)
[2025-01-28] MEDS ORDERED: EPHEDRINE SULF 50 MG/ML VIAL ONE (12:08)
[2025-01-28] MEDS: LIDOCAINE HCL/EPINEPHRINE 20 ML MDV ONE (12:13)
[2025-01-28 12:55] VITALS: O2SAT 98
--- NOTE | 2025-01-28 13:10 | OP ---
Date of Procedure: 01/28/2025 Surgeon: Carson Mensah MD, Preoperative Diagnosis: Left lateral heel/ankle wound. Postoperative Diagnosis: Left lateral heel/ankle wound. Procedure Performed: Debridement of left heel and lateral ankle wound. Anesthesia: General endotracheal plus local with 1% lidocaine with epinephrine. Estimated Blood Loss: Less than 1 cc. Specimens: Debridement of tissue and culture sent for both aerobic and anaerobic speciation. Findings: 4 cm x 2 cm x 0.1 cm wound on the lateral aspect of the ankle and heel area. Complications: None. Disposition: The patient was transferred to recovery room in good condition. Procedure In Detail: After informed consent was obtained, the patient was brought to the operating r oom, prepped and draped in the usual sterile fashion. After adequate anesthesia was achieved, I made a sharp elliptical incision around an area of obvious necrosis down to subcutaneous tissues and adip ose tissue. I then removed the tissues with electrocautery and sent off for pathologic examination. The area was copiously irrigated and packed with Vashe soaked gauze and a sterile dressing was place d over top. The patient tolerated the procedure well without incident or complication, transferred to PACU in good condition. All counts w ere correct at the end of the case. AUBREE/KASSIDY Voice ID: [id number] Report ID: [id number]
[2025-01-28 13:21] VITALS: BP 148/83; TEMP 97.1
--- NOTE | 2025-01-29 10:21 | OP ---
Date of Procedure: 01/28/2025 Surgeon: Carson Mensah MD, Preoperative Diagnosis: Left lateral heel/ankle wound. Postoperative Diagnosis: Left lateral heel/ankle wound. Procedure Performed: Debridement of left heel and lateral ankle wound. Anesthesia: General endotracheal plus local with 1% lidocaine with epinephrine. Estimated Blood Loss: Less than 1 cc. Specimens: Debridement of tissue and culture sent for both aerobic and anaerobic speciation. Findings: 4 cm x 2 cm x 0.1 cm wound on the lateral aspect of the ankle and heel area. Complications: None. Disposition: The patient was transferred to recovery room in good condition. Procedure In Detail: After informed consent was obtained, the patient was brought to the operating r oom, prepped and draped in the usual sterile fashion. After adequate anesthesia was achieved, I made a sharp elliptical incision around an area of obvious necrosis down to subcutaneous tissues and adip ose tissue. I then removed the tissues with electrocautery and sent off for pathologic examination. The area was copiously irrigated and packed with Vashe soaked gauze and a sterile dressing was place d over top. The patient tolerated the procedure well without incident or complication, transferred to PACU in good condition. All counts w ere correct at the end of the case. AUBREE/AKSSIDY Voice ID: [id number] Report ID: [id number]
== END 2025-01-28 13:52 | disposition home or self-care (01) ==
LOC: OR 10:17
PROVIDERS: ATTEND Surgery
PROC: 0JBR0ZZ Excision of Left Foot Subcutaneous Tissue and Fascia, Open Approach (ICD-10-PCS; principal; 2025-01-28 13:30)
DX: L97.423 Non-pressure chronic ulcer of left heel and midfoot with necrosis of muscle (principal); I96 Gangrene, not elsewhere classified; I10 Essential (primary) hypertension; E11.9 Type 2 diabetes mellitus without complications
CPT/HCPCS: 11042; 93005; 87070; 85025; 80048; 36415; 87205; 82947 ×2; 88304; J2704; J1100; J2003; J3010; J2405; J7030; 87075; J3590